=== PATIENT | female | born 1950 | race Caucasian/White ===

== ENCOUNTER 2016-01-29 07:58 | Day surgery (SDC) | payer OTHER ==
[~2016-01-29] VITALS: Ht 172.7 cm; Wt 163.5 kg
[~2016-01-29 07:58] MED LIST: ALBU1NEB10 NEB; ALBUAER2 INH; ASPCH81X PO; ATEN25TA PO; BACL10TA PO; CLIN1GEL5 TOP; CYM/30 PO; FURO40TA3 PO; HYDR-3124 PO; INSUINJ8 SC; LACT10SO17 PO; MAGN1SOL7 PO; METFTAB PO; METHPOW7 PO; MONT1TAB3 PO; NITROGLYCERIN 2% EXT; NYSCR30 EXT; OFLO0.3D4 OT; OXYC-164 PO; SUMA100T15 PO; TIOTCAP INH; [UNRECOGNIZED DRUG - SUPPLY] TOP
[2016-01-29 10:25] VITALS: BP 111/72; PULSE 65; TEMP 36.9; O2SAT 91; Ht 172.7 cm; Wt 163.5 kg
[2016-03-05] MEDS ORDERED: CLB/200 PO (15:05)
[2016-03-05] MEDS ORDERED: FLUT1INH7 INH (15:05)
[2016-03-05] MEDS ORDERED: PRMVC EXT (15:05)
[2016-03-11] MEDS ORDERED: CLC150 PO (17:01)
[2016-06-20] MEDS ORDERED: LEVO100T7 PO (08:46)
[2016-06-20] MEDS ORDERED: OXGN (11:04)
[2016-06-20] MEDS ORDERED: MCTP TOP (11:06)
[2016-06-20] MEDS ORDERED: SIMV-151 PO (15:02)
[2016-06-20] MEDS ORDERED: MISCCAP80 PO (15:02)
[2016-06-20] MEDS ORDERED: NYSCR30 TOP (15:05)
[2016-06-20] MEDS ORDERED: TRMCR515 TOP (15:05)
[2016-06-20] MEDS ORDERED: ACT300 PO (15:13)
[2016-06-20] MEDS ORDERED: PRT/40 PO (15:13)
[2016-06-24] MEDS ORDERED: MCRK20 PO (11:43)
== END 2016-03-22 12:11 | disposition home or self-care (01) ==
LOC: C.MTU 07:58
PROVIDERS: ATTEND Internal Medicine Infectious Disease
DX: N39.0 Urinary tract infection, site not specified (principal)

== ENCOUNTER → 2016-02-16 | Outpatient (CLI) | payer OTHER ==
[~2016-02-16] MED LIST changes: +ACT300 PO; +ALBINS/ NEB; +ASPI81TA28 PO; +ATR25 PO; +ATV/2 PO; +ATV2 PO; +CELE1CAP30 PO; +CLB/200 PO; +CLC150 PO; +CYM30 PO; +FLUT1INH7 INH; +GLCSR/500 PO; +IMT100 PO; +LCTS240 PO; +LEVO100T7 PO; +LRS20 PO; +LSX40 PO; +MCRK20 PO; +MCTP TOP; +MISCCAP80 PO; +NVLNI SC; -NYSCR30 EXT; +NYSCR30 TOP; +ONDA4TAB46 PO; +OXGN; -OXYC-164 PO; +POLY335019 PO; +POTA20TA13 PO; +PREG200C PO; +PRMVC EXT; +PRT/40 PO; +SILV1CRE73 TOP; +SIMV-151 PO; +SNG10 PO; +SPRIN/30 INH; +TNR25 PO; +TNR25X PO; +TRMCR515 TOP; +VNTHFA/IN INH
[2016-02-16 13:12] LABS: URINE APPEARANCE CLEAR (CLEAR); URINE BILIRUBIN NEG (NEG); URINE COLOR YELLOW; URINE EPITHELIAL CELL AUTO >30 /lpf (0-5); URINE NITRITE NEG (NEG); URINE PH 5.5 (4.5-7.5); URINE SPECIFIC GRAVITY 1.024 (1.000-1.030); UROBILINOGEN NEG (NEG); ZZURINE CULT IF INDIC CATH YES
[2016-02-16 13:14] LABS: MANUAL MICROSCOPIC REQUIRED? NO; REVIEW REQ? YES
== END | disposition home or self-care (01) ==
LOC: C.LABSPEC 08:43
PROVIDERS: ATTEND Internal Medicine Infectious Disease
DX: R39.9 Unspecified symptoms and signs involving the genitourinary system (principal); Z87.440 Personal history of urinary (tract) infections

== ENCOUNTER 2016-03-05 10:32 | Inpatient (IN) | payer OTHER ==
[~2016-03-05] VITALS: Ht 172.7 cm; Wt 184.5 kg
[~2016-03-05 10:32] MED LIST changes: -ACT300 PO; -ALBINS/ NEB; -ASPI81TA28 PO; -ATR25 PO; -ATV/2 PO; -ATV2 PO; -CELE1CAP30 PO; -CLB/200 PO; -CLC150 PO; -CYM30 PO; -FLUT1INH7 INH; -GLCSR/500 PO; -IMT100 PO; -LCTS240 PO; -LEVO100T7 PO; -LRS20 PO; -LSX40 PO; -MCRK20 PO; -MCTP TOP; -MISCCAP80 PO; -NVLNI SC; -NYSCR30 TOP; -ONDA4TAB46 PO; -OXGN; -POLY335019 PO; -POTA20TA13 PO; -PREG200C PO; -PRMVC EXT; -PRT/40 PO; -SILV1CRE73 TOP; -SIMV-151 PO; -SNG10 PO; -SPRIN/30 INH; -TNR25 PO; -TNR25X PO; -TRMCR515 TOP; -VNTHFA/IN INH
--- NOTE | 2016-03-05 11:24 | EMERGENCY ROOM VISIT NOTE ---
History Report prepared by Michelle: Kahlil Singh Under the Supervision of: Dr. Whit Gonzalez D.O. First contact with patient: 11:05 Chief Complaint: CONFUSION Stated Complaint: ALTERED MENTAL STATUS Nursing Triage Summary: Patient presents to ER via EMS. Home nursing to patients home this morning. Per EMS patient was discharged from [facility] on 02/19/16, was here for pneumonia. Patient has hx of UTI. Home nursing stated to EMS patient seemed confused and lethargic this AM. Patient is afebrile. Home nurse stated patient was having intermittent burning with urination, however last UA was clean. Patient c/o 7/10 chest heaviness at this time. History of Present Illness The patient is a 65 year old female who presents to the Emergency Room with complaints of persistent confusion that started this morning. Per patient's family, the patient has been sleeping more than usual for the past two days. Today, when the patient woke up she was very confused and was not sure where she was or what was happening. Per patient's family, the patient has a history of UTI where she experiences similar confused symptoms. He notes that the patient was recently in the hospital for UTI and pneumonia. At this time, the patient complains of pain in her backside and abdominal pain. The patient denies nausea at this time. The HPI is limited due to confusion. Source of History: patient, family History Limited By: other (confusion) Onset: this morning Position: other (global) Timing: other (persistnet) Associated Symptoms: + abdominal pain, No nausea Note: Other associated symptoms: pain in her backside Review of Systems The ROS is limited due to confusion. Past Medical & Surgical Medical Problems: (1) Acute Pancreatitis (2) Altered mental status (3) Anxiety (4) Asthma (5) Body Mass Index 50.0-59.9, Adult (6) Cerebrovascular disease (7) Chronic hypercapnic respiratory failure (8) Chronic osteoarthritis (9) Chronic pain disorder (10) Complicated UTI (urinary tract infection) (11) Crohn's disease (12) Depression (13) Diabetes mellitus, type II (14) Diabetic neuropathy (15) Diastolic heart failure (16) Dyslipidemia (17) Gastroparesis (18) Hypertension (19) Hypertrophic cardiomyopathy (20) Hypothyroidism (21) Intestinal Infection Due To Clostridium Difficile (22) Necrotizing Fasciitis (23) Obesity hypoventilation syndrome (24) Pneumonia, organism unspecified (25) Recurrent UTI (26) Sleep apnea (27) Urin Tract Infection Nos Surgical Problems: (1) Status post partial nephrectomy (2) Status post repair nasal septum (3) Status post tonsillectomy Family History FH: asthma SISTER FH: dementia MOTHER FH: diabetes mellitus MOTHER GRANDMOTHER FH: heart disease FATHER GRANDMOTHER FH: hypertension MOTHER Social History Smoking Status: Never Smoker Alcohol Use: none Drug Use: none Marital Status: Housing Status: lives with family Occupation Status: disabled Current/Historical Medications Scheduled Aspirin (Aspirin Chewable), 81 MG PO QAM Atenolol (Tenormin), 12.5 MG PO HS Baclofen (Lioresal), 20 MG PO TID Celecoxib (CeleBREX), 1 CAP PO DAILY Duloxetine Hcl (Cymbalta), 30 MG PO BID Estrogens, Conjugated (Premarin), 1 APPLN EXT 2XWK Fluticasone Furoate-Vilanterol (Breo Ellipta 200-25 Mcg/INH), 1 PUFF INH DAILY Insulin Nph (Novolin-N), 72 UNITS SC TIDM Levothyroxine Sodium (Levothyroxine Sodium), 100 MCG PO QAM Metformin Ext Rel (Glucophage Ext Rel), 1 TAB PO BID Montelukast Sodium (Singulair), 10 MG PO HS Oxygen (Oxygen), 4 LITERS NA DAYTIME Pantoprazole (Pantoprazole Sodium), 40 MG PO QAM Pregabalin (Lyrica), 200 MG PO TID Probiotic Product (Probiotic), 1 CAP PO QAM Simvastatin (Simvastatin), 20 MG PO HS Tiotropium [place] (Spiriva Handihaler), 1 CAP INH QAM Ursodiol (Ursodiol), 600 MG PO BID Scheduled PRN Albuterol (Ventolin Hfa), 2 PUFFS INH QID PRN for SOB/Wheezing Albuterol Soln (Ventolin Soln), 1 VIAL NEB Q6H PRN for SOB/Wheezing Furosemide (Lasix), 1 TAB PO QAM PRN for swelling Hydroactive Dressings (Duoderm Hydroactive Gel), 5.5 INCH TOP QD PRN for SKIN TEARS,ABRASIONS, QUINTERO Hydroxyzine Hcl (Atarax), 25 MG PO Q6 PRN for Itching Lactulose (Chronulac), 15 ML PO BID PRN for Constipation Lorazepam (Ativan), 1-2 MG PO BID PRN for Anxiety Miconazole Nitrate (Desenex Shake Powder), 1 DOSE EXT BID PRN for Affected Skin Folds Nystatin (Nystatin Cream), 0 EXT BID PRN for affected skin folds Ondansetron Hcl (Zofran), 4 MG PO Q6 PRN for Nausea Polyethylene Glycol 3350 (Miralax), 17 GM PO BID PRN for Constipation Silver Sulfadiazine (Silvadene), 1 APPLN TOP DAILY PRN for SKIN TEAR OR ABRASION Sumatriptan Succinate (Imitrex), 100 MG PO UD PRN for Migraine Triamcinolone Acet (Triamcinolone Acetonide), 1 APPLN TOP BID PRN for redness or itching Allergies Coded Allergies: Fluoxetine (Verified Allergy, Severe, ANAPHYLAXIS, 03/05/16) Insulin (Verified Allergy, Severe, LANTUS/LEVEMIR- HIVES/THROAT SWELLING, 03/05/16) TOLERATES NOVOLIN N 11/19/15 aj (per pt phone call) Note: after patient had severe hives reaction from Lantus (many years ago), she had skin testing @ [facility] and was tested with many other insulins. Pt says she only tolerated NOVOLIN NPH. Has tolerated Aspart during multiple admissions (12/2013, 05/2015, 07/2015) Moxifloxacin (Verified Allergy, Severe, HIVES, 03/05/16) Nitrofurantoin (Verified Allergy, Severe, HIVES, 03/05/16) Paroxetine (Verified Allergy, Severe, HIVES, 03/05/16) Quinolones (Verified Allergy, Severe, AVELOX & LEVAQUIN-HIVES, 03/05/16) Amitriptyline (Verified Allergy, Intermediate, Sweats and itching, 03/05/16 ) Buspirone (Verified Allergy, Intermediate, HIVES, 12/08/15) Citalopram (Verified Allergy, Intermediate, HIVES-RASH, 12/08/15) Escitalopram (Verified Allergy, Intermediate, HIVES-RASH, 12/08/15) Methadone (Verified Allergy, Intermediate, HIVES, 12/08/15) Penicillins (Verified Allergy, Intermediate, RASH,HIVES, 03/05/16) Serotonin Reuptake Inhibitors (Verified Allergy, Intermediate, MIGRAINES TO SSRIs, 02/01/16) Trazodone (Verified Allergy, Intermediate, BLOODY NOSE, HEADACHES,HIVES, ) Vancomycin (Verified Allergy, Intermediate, HIVES, 12/08/15) Prednisone (Verified Allergy, Mild, CHEST TIGHTNESS, 03/05/16) Azithromycin (Verified Allergy, Unknown, HIVES, 02/01/16) Carbamazepine (Verified Allergy, Unknown, [id number], 03/05/16) Ciprofloxacin (Unverified Allergy, Unknown, ABD PAINS, 03/05/16) Sertraline (Verified Allergy, Unknown, UNKNOWN, 12/08/15) Sitagliptin (Verified Allergy, Unknown, HIVES, 03/05/16) Tetracyclines (Verified Adverse Reaction, Severe, HIVES, 03/05/16) Sulfa Antibiotics (Verified Adverse Reaction, Intermediate, MIGRAINES, ) Fexofenadine (Verified Adverse Reaction, Mild, GI SYMPTOMS, 03/05/16) Tizanidine (Verified Adverse Reaction, Mild, ITCHING-HIVES, 12/08/15) Physical Exam Vital Signs Date Time Temp Pulse Resp B/P Pulse Ox O2 Delivery O2 Flow Rate FiO2 03/05/16 16:00 100 17 148/67 97 03/05/16 14:52 96 20 148/69 96 Nasal Cannula 4.0 03/05/16 13:47 99 Nasal Cannula 4.0 03/05/16 13:13 100 03/05/16 12:41 100 16 174/76 99 Nasal Cannula 4.0 03/05/16 10:56 98 Nasal Cannula 4.0 03/05/16 10:45 36.6 93 21 142/75 93 Nasal Cannula 4.0 03/05/16 10:40 90 Physical Exam General: Morbidly obese woman seems slightly lethargic. HEENT: Head - normocephalic and atraumatic Pupils are equal, round, and reactive to light. Crust in and around her eyes. Extraocular eye muscles are intact, and sclera are anicteric. Nose - moist nasal mucosa without discharge. Mouth - moist buccal mucosa. Oropharynx is nonerythematous and there is no tonsillar exudate or edema noted. Neck: Supple; no JVD, nuchal rigidity, cervical lymphadenopathy. Heart: Heart sounds are distant, almost inaudible, because of body habitus but normal Lungs: Lung sounds are distant, almost inaudible, because of body habitus but normal Abdomen: Soft, periumbilical pain with palpation, nondistended, with good bowel sounds. There are no palpable pulsatile masses or hepatosplenomegaly. There is no guarding, rigidity, or rebound noted. Extremities: No evidence of cyanosis, clubbing, or edema. There are easily palpable peripheral pulses. Skin: warm and dry with good turgor and no rashes. Medical Decision & Procedures ER Provider Diagnostic Interpretation: X-ray results as stated below per interpretation by me and the radiologist: CHEST ONE VIEW PORTABLE CLINICAL HISTORY: Sepsis COMPARISON STUDY: Chest radiograph and chest CT February 01, 2016. FINDINGS: Lung volumes are normal. Mild cardiomegaly is unchanged. There is no evidence of pulmonary edema. Bibasilar opacities, left greater than right, persist. There may be a small left pleural effusion. There is no pneumothorax. IMPRESSION: Persistent bibasilar opacities, left greater than right, which may reflect pneumonia or atelectasis. Possible small left pleural effusion. Electronically signed by: Chidi Gregory M.D. 03/05/2016 11:40 AM Dictated Date/Time: 03/05/2016 11:39 AM Laboratory Results 03/05/16 10:44 Red Blood Count 5.31, Mean Corpuscular Volume 84.7, Mean Corpuscular Hemoglobin 25.6, Mean Corpuscular Hemoglobin Concent 30.2, Mean Platelet Volume 12.4, Neutrophils (%) (Auto) 74.8, Lymphocytes (%) (Auto) 14.5, Monocytes (%) (Auto) 6.7, Eosinophils (%) (Auto) 2.2, Basophils (%) (Auto) 0.3, Neutrophils # (Auto) 10.12, Lymphocytes # (Auto) 1.97, Monocytes # (Auto) 0.91, Eosinophils # (Auto) 0.30, Basophils # (Auto) 0.04 03/05/16 10:44 Test 03/05/16 10:44 03/05/16 11:22 03/05/16 11:38 03/05/16 11:49 White Blood Count 13.55 K/uL (4.8-10.8) Red Blood Count 5.31 M/uL (4.2-5.4) Hemoglobin 13.6 g/dL (12.0-16.0) Hematocrit 45.0 % (37-47) Mean Corpuscular Volume 84.7 fL (80-100) Mean Corpuscular Hemoglobin 25.6 pg (25-34) Mean Corpuscular Hemoglobin Concent 30.2 g/dl (32-36) Platelet Count 165 K/uL (130-400) Mean Platelet Volume 12.4 fL (7.4-10.4) Neutrophils (%) (Auto) 74.8 % Lymphocytes (%) (Auto) 14.5 % Monocytes (%) (Auto) 6.7 % Eosinophils (%) (Auto) 2.2 % Basophils (%) (Auto) 0.3 % Neutrophils # (Auto) 10.12 K/uL (1.4-6.5) Lymphocytes # (Auto) 1.97 K/uL (1.2-3.4) Monocytes # (Auto) 0.91 K/uL (0.11-0.59) Eosinophils # (Auto) 0.30 K/uL (0-0.5) Basophils # (Auto) 0.04 K/uL (0-0.2) RDW Standard Deviation 51.8 fL (36.4-46.3) RDW Coefficient of Variation 16.9 % (11.5-14.5) Immature Granulocyte % (Auto) 1.5 % Immature Granulocyte # (Auto) 0.21 K/uL (0.00-0.02) Prothrombin Time 10.7 SECONDS (9.0-12.0) Prothromb Time International Ratio 1.0 (0.9-1.1) Activated Partial Thromboplast Time 29.6 SECONDS (21.0-31.0) Partial Thromboplastin Ratio 1.1 Anion Gap 5.0 mmol/L (3-11) Estimated GFR () 106.2 Estimated GFR (Non- 91.6 BUN/Creatinine Ratio 18.1 (10-20) Calcium Level 9.1 mg/dl (8.5-10.1) Total Bilirubin 0.3 mg/dl (0.2-1) Aspartate Amino Transf (AST/SGOT) 12 U/L (15-37) Alanine Aminotransferase (ALT/SGPT) 20 U/L (12-78) Alkaline Phosphatase 95 U/L (45-117) Total Creatine Kinase 14 U/L (26-192) Creatine Kinase MB 0.5 ng/ml (0.5-3.6) Troponin I < 0.015 ng/ml (0-0.045) Total Protein 6.6 gm/dl (6.4-8.2) Albumin 3.1 gm/dl (3.4-5.0) Globulin 3.5 gm/dl (2.5-4.0) Albumin/Globulin Ratio 0.9 (0.9-2) Creatine Kinase MB Ratio (0-3.0) Urine Color YELLOW Urine Appearance CLEAR (CLEAR) Urine pH 5.0 (4.5-7.5) Urine Specific [place] 1.018 (1.000-1.030) Urine Protein NEG (NEG) Urine Glucose (UA) NEG (NEG) Urine Ketones NEG (NEG) Urine Occult Blood TRACE (NEG) Urine Nitrite POS (NEG) Urine Bilirubin NEG (NEG) Urine Urobilinogen NEG (NEG) Urine Leukocyte Esterase NEG (NEG) Urine WBC (Auto) 1-5 /hpf (0-5) Urine RBC (Auto) 0-4 /hpf (0-4) Urine Hyaline Casts (Auto) 1-5 /lpf (0-5) Urine Epithelial Cells (Auto) 5-10 /lpf (0-5) Urine Bacteria (Auto) 4+ (NEG) Bedside Lactic Acid Venous 1.43 mmol/L (0.90-1.70) Test 03/05/16 14:47 03/05/16 16:00 Laboratory results per my review. Medications Administered Medications (Trade) Dose Ordered Sig/Keith Route Start Time Stop Time Status Last Admin Dose Admin Cefepime HCl/ Dextrose (Maxipime IV/D5 100ml) 112.5 ml @ 225 mls/hr NOW STAT IV 03/05/16 13:31 03/05/16 14:00 DC 03/05/16 13:52 225 MLS/HR Procedure Medications: Cefepime HCl 2000 mg / Dextrose IV. ECG Indication: altered mental status Rate (beats per minute): 88 Rhythm: normal sinus Findings: no ectopy, other (flattened t-waves anteriorly) ED Course 1105: Past medical records reviewed. The patient was evaluated in room B8. A complete history and physical exam was performed. A septic protocol was performed. Patient had a chest x-ray and urine specimen obtained. 1320: At this time, I reevaluated the patient and she is still confused. The mentioned at this time that he does not feel that he can safely take her home in this state. I reviewed the laboratory results and the x-ray findings with the patient and her . 1330: At this time, I discussed the patient's case with Brandie Smith PA-C - Hospitalist [facility] and she agreed to accept the patient for further evaluation. We spent some time reviewing the patient's previous urine cultures. It seems that her antibiotic treatments have been guided by Dr. Corey in the past from infectious disease. 1331: Ordered Cefepime HCl 2000 mg / Dextrose 112.5 ml @ 225 mls/hr IV. Medical Decision The patient is a 65 year old female who presents to the ED with confusion. Differential diagnosis includes sepsis, UTI, pneumonia, hypoglycemia, and dehydration. White count 13.5, stable h&h, negative cardiac enzymes, nornal renal function, glucose 178, LFTs normal, coags normal This is a 65-year-old patient who presents to the emergency department with a cough and confusion. Urinalysis was questionably infected. Chest x-ray shows evidence of bilateral opacities with a cough. With blood cell count is slightly elevated at 13.5. In reviewing her medical records, there've been multiple previous visits to the ER with altered mental status that happened as a result of infection, mostly urinary tract infection. I discussed the case with the [facility]ist and they will evaluate for further management. Consults Time Called: 1325 Consulting Physician: Brandie Smith PA-C - Latesha Bonilla Returned Call: 1330 At this time, I discussed the patient's case with Brandie Smith PA-C and she agreed to accept the patient for further evaluation. Impression Primary Impression: Altered mental status Additional Impression: Pneumonia Scribe Attestation The scribe's documentation has been prepared under my direction and personally reviewed by me in its entirety. I confirm that the note above accurately reflects all work, treatment, procedures, and medical decision making performed by me. Departure Information Dispostion Being Evaluated By Hospitalist Referrals No Doctor, Assigned (PCP) Problem Qualifiers
[2016-03-05 11:40] LABS: BASO % 0.3 %; BASO ABS # 0.04 K/uL (0-0.2); COMPLETE YES; EOS % 2.2 %; IG% 1.5 %; LYMPH % 14.5 %; LYMPH ABS # 1.97 K/uL (1.2-3.4); MEAN CELL VOLUME 84.7 fL (80-100); MEAN CORPUSCULAR HEMOGLOBIN 25.6 pg (25-34); MEAN CORPUSCULAR HGB CONC 30.2 g/dl (32-36); MEAN PLATELET VOLUME 12.4 fL (7.4-10.4); MONO % 6.7 %; NEUT % 74.8 %; PLATELET COUNT 165 K/uL (130-400); RED BLOOD COUNT 5.31 M/uL (4.2-5.4); WHITE BLOOD COUNT 13.55 K/uL (4.8-10.8)
[2016-03-05 11:42] LABS: CHLORIDE 101 mmol/L (98-107); POTASSIUM 4.5 mmol/L (3.5-5.1); SODIUM 142 mmol/L (136-145)
--- NOTE | 2016-03-05 11:42 | DIAGNOSTIC IMAGING REPORT ---
CHEST ONE VIEW PORTABLE CLINICAL HISTORY: Sepsis COMPARISON STUDY: Chest radiograph and chest CT February 01, 2016. FINDINGS: Lung volumes are normal. Mild cardiomegaly is unchanged. There is no evidence of pulmonary edema. Bibasilar opacities, left greater than right, persist. There may be a small left pleural effusion. There is no pneumothorax. IMPRESSION: Persistent bibasilar opacities, left greater than right, which may reflect pneumonia or atelectasis. Possible small left pleural effusion. Electronically signed by: Chidi Gregory M.D. 03/05/2016 11:40 AM Dictated Date/Time: 03/05/2016 11:39 AM
[2016-03-05 11:47] LABS: ALT/SGPT 20 U/L (12-78); AST/SGOT 12 U/L (15-37); BLOOD UREA NITROGEN 12 mg/dl (7-18); BUN/CREATININE RATIO 18.1 (10-20); CALCIUM 9.1 mg/dl (8.5-10.1); CARBON DIOXIDE 36 mmol/L (21-32); CREATININE 0.67 mg/dl (0.60-1.20); GLUCOSE 178 mg/dl (70-99)
[2016-03-05 11:56] LABS: PARTIAL THROMBOPLASTIN RATIO 1.1; PROTHROMBIN TIME (PATIENT) 10.7 SECONDS (9.0-12.0)
[2016-03-05 11:58] LABS: ALB/GLOB RATIO 0.9 (0.9-2); ALKALINE PHOSPHATASE 95 U/L (45-117)
[2016-03-05 11:59] LABS: CKMB/CK RATIO 3.6 (0-3.0)
[2016-03-05 12:31] LABS: URINE APPEARANCE CLEAR (CLEAR); URINE BILIRUBIN NEG (NEG); URINE COLOR YELLOW; URINE NITRITE POS (NEG); URINE SPECIFIC GRAVITY 1.018 (1.000-1.030); UROBILINOGEN NEG (NEG); ZZURINE CULT IF INDIC CATH YES
[2016-03-05 12:34] LABS: MANUAL MICROSCOPIC REQUIRED? NO; REVIEW REQ? NO
[2016-03-05] MEDS ORDERED: CEFEPIME IV 2000 MG in DEXTROSE 5% 100ML IV STA (13:31)
[2016-03-05 13:47] VITALS: O2SAT 99; Ht 172.7 cm; Wt 184.5 kg
[2016-03-05] MEDS ORDERED: CONSULT PHARMACY STA (14:26)
[2016-03-05] MEDS ORDERED: GLUCOSE 10 TABS/TUBE PO PRN (14:45)
[2016-03-05] MEDS ORDERED: CEFEPIME CONSULT ACTIVE PRN ×2 (14:45)
[2016-03-05] MEDS ORDERED: DEXTROSE 50% 50 ML SYR IV PRN (14:45)
[2016-03-05] MEDS ORDERED: LEVALBUTEROL 1.25MG/3ML NEB INH PRN (14:45)
[2016-03-05] MEDS ORDERED: GLUCOSE 40% GEL 15 GM TUBE PO PRN (14:45)
[2016-03-05] MEDS ORDERED: GLUCAGON FOR INJ 1 MG VIAL SQ PRN (14:45)
[2016-03-05] MEDS ORDERED: ALBUTEROL HFA 8 GM INHALER INH PRN (15:00)
[2016-03-05] MEDS ORDERED: hydrOXYzine HCL 25 MG TAB PO PRN (15:00)
[2016-03-05] MEDS ORDERED: CLB/200 PO (15:05)
[2016-03-05] MEDS ORDERED: FLUT1INH7 INH (15:05)
[2016-03-05] MEDS ORDERED: PRMVC EXT (15:05)
[2016-03-05] MEDS ORDERED: PHARMACY GLYCEMIC MGMT CONSULT PRN (15:17)
--- NOTE | 2016-03-05 15:51 | Pharmacy Progress Note ---
Glycemic Control Intl Consult Date of Service Mar 05, 2016. Scope Glycemic Pharmacist consulted by Dipti Smith on 03/05/16 for glycemic control and to write orders per [facility] inpatient glycemic control protocol Objective Weight (Kilograms): 161.000 Accuchecks BSG (last 24hrs): Test 03/05/16 10:44 Random Glucose 178 mg/dl (70-99) Laboratory Data (last 24hrs) Test 03/05/16 10:44 Anion Gap 5.0 mmol/L BUN/Creatinine Ratio 18.1 Blood Urea Nitrogen 12 mg/dl Creatinine 0.67 mg/dl Potassium Level 4.5 mmol/L Sodium Level 142 mmol/L White Blood Count 13.55 K/uL Red Blood Count 5.31 M/uL Hemoglobin 13.6 g/dL Hematocrit 45.0 % Mean Corpuscular Volume 84.7 fL Mean Corpuscular Hemoglobin 25.6 pg Mean Corpuscular Hemoglobin Concent 30.2 g/dl Platelet Count 165 K/uL Mean Platelet Volume 12.4 fL Neutrophils (%) (Auto) 74.8 % Lymphocytes (%) (Auto) 14.5 % Monocytes (%) (Auto) 6.7 % Eosinophils (%) (Auto) 2.2 % Basophils (%) (Auto) 0.3 % Neutrophils # (Auto) 10.12 K/uL Lymphocytes # (Auto) 1.97 K/uL Monocytes # (Auto) 0.91 K/uL Eosinophils # (Auto) 0.30 K/uL Basophils # (Auto) 0.04 K/uL Recent Pertinent Medications Outpatient Anti-diabetic Regimen: * NPH 72 units TID with meals per sliding scale * metformin ER 1000mg PO daily * A1c: 6.5% 01/2016 The patient is currently receiving: * Basal insulin: none at this time * Correctional Insulin: NovoLog Correction per scale AC/HS Goal Range: Low 100 mg/dL - High 140 mg/dL Correction Factor: 25 mg/dL/unit * Prandial insulin: Per carb ratio of 1 unit per 9 grams CHO consumed * Oral Agents: none at this time Risk Factors for Insulin Resistance: * Steroids: none * Infection: cefepime and clindamycin - day #1 * Pressors: none * IVF: none * Recent Surgery: none * Diet: NPO at this time * Mechanical Ventilation: none Assessment & Plan ASSESSMENT: * ADA & AACE recommend a goal blood sugar range 140-180 mg/dl for the majority of critically ill & non-critically ill patients. However, more stringent targets may be selected in individual cases. * 65 y/o type II diabetic known to the glycemic service from prior admissions * May insulin allergies permit only NPH and NovoLog usage. * As an outpatient, Ms Ramon uses ~216units of insulin per day, however she requires significantly less insulin while admitted per records * A1c shows appropriate outpatient glycemic control 03/05/16 * Only BSG available is random from PRP - 178mg/dL * Received 72 units of NPH INSURANCE CLAIMS CLERK * NPO secondary to lethargy * will drastically reduce basal dose PLAN FOR INPATIENT GLYCEMIC CONTROL: * Continue NPH with a reduction of dose * 30 units SQ BID with meals, begin on 03/06 * No NPH tonight since patient took large dose tonight and is NPO * Continue NovoLog sliding scale AC and HS * Add Accu-checks overnight at 00:00 and 04:00 since we are not giving any additional basal insulin tonight * Tighten correction factor based on last admission to 15mg/dL/unit * Tighten carb ratio to 1 unit per 5 g of CHO consumed * Goal range 140-180mg/dL per ADA recommendations * A1c - current from outpatient record. * Please note that the plan above was derived based on current level of insulin resistance and hospital stress. These recommendations are appropriate for inpatient admission only. Plan of care upon discharge will need to be reassessed to avoid potential outpatient hypo/hyperglycemia. Thank you.
[2016-03-05 16:15] VITALS: BP 149/73; PULSE 93; TEMP 37.4; O2SAT 93
--- NOTE | 2016-03-05 16:44 | Medical Consult ---
Consultation Date of Consultation: Mar 05, 2016. Attending Physician: Brad Medrano MD Reason for Consultation: Recurrent UTI, PNA History of Present Illness The patient is a morbidly obese 65-year-old female well known to the Infectious Disease service who presented to the emergency department with complaints of altered mental status starting this morning. The patient states that she had been feeling in her usual state of health until approximately 1 day ago. She states that she has had some mild dysuria along with some mild shortness of breath. Her family member state that the patient had noted increased pain in her buttocks where she previously had a healing sacral decubitus ulceration. She states that she has noted some sweats and chills on an off, but has not taken her temperature at home. She denies headache, sore throat, mucus production, abdominal pain, nausea, diarrhea, or edema of the lower extremities. She does have history of recurrent urinary tract infection as well as pneumonia. During her most recent admission, the patient did have Klebsiella UTI and left lower lobe pneumonia. She was treated at that time with IV ceftriaxone. She states she did improve during her previous admission was discharged home without antibiotic therapy. Since admission, the patient did have a chest x-ray, which showed persistent bibasilar opacities, left greater than right, which may reflect pneumonia or atelectasis. Blood in urine cultures are pending. Her white blood cell count was 13.55. Point of care lactic acid was 1.43. Her creatinine was 0.67. Her urinalysis showed 4+ bacteria and positive nitrite. She was placed empirically on IV cefepime and clindamycin. Past Medical/Surgical History Medical Problems: (1) Altered mental status Status: Acute (2) Altered mental status Status: Acute (3) Altered mental status Status: Acute (4) CO2 narcosis Status: Acute (5) Hemoptysis Status: Acute (6) Hepatic encephalopathy Status: Acute (7) Hypercarbia Status: Acute (8) Hypoxia Status: Acute (9) Leukocytosis Status: Acute (10) Metabolic encephalopathy Status: Acute (11) Pneumonia Status: Acute (12) Pneumonia Status: Acute (13) Respiratory acidosis Status: Acute (14) Respiratory acidosis Status: Acute (15) UTI (urinary tract infection) Status: Acute (16) UTI (urinary tract infection) Status: Acute Medical Problems: (1) Acute Pancreatitis (2) Altered mental status (3) Anxiety (4) Asthma (5) Body Mass Index 50.0-59.9, Adult (6) Cerebrovascular disease (7) Chronic hypercapnic respiratory failure (8) Chronic osteoarthritis (9) Chronic pain disorder (10) Complicated UTI (urinary tract infection) (11) Crohn's disease (12) Depression (13) Diabetes mellitus, type II (14) Diabetic neuropathy (15) Diastolic heart failure (16) Dyslipidemia (17) Gastroparesis (18) Hypertension (19) Hypertrophic cardiomyopathy (20) Hypothyroidism (21) Intestinal Infection Due To Clostridium Difficile (22) Necrotizing Fasciitis (23) Obesity hypoventilation syndrome (24) Pneumonia, organism unspecified (25) Recurrent UTI (26) Sleep apnea (27) Urin Tract Infection Nos Surgical Problems: (1) Status post partial nephrectomy (2) Status post repair nasal septum (3) Status post tonsillectomy Family History FH: asthma SISTER FH: dementia MOTHER FH: diabetes mellitus MOTHER GRANDMOTHER FH: heart disease FATHER GRANDMOTHER FH: hypertension MOTHER Noncontributory Social History Smoking Status: Never Smoker Drug Use: none Marital Status: Housing Status: lives with family Occupation Status: disabled Allergies Coded Allergies: Fluoxetine (Verified Allergy, Severe, ANAPHYLAXIS, 03/05/16) Insulin (Verified Allergy, Severe, LANTUS/LEVEMIR- HIVES/THROAT SWELLING, 03/05/16) TOLERATES NOVOLIN N 11/19/15 aj (per pt phone call) Note: after patient had severe hives reaction from Lantus (many years ago), she had skin testing @ [place] and was tested with many other insulins. Pt says she only tolerated NOVOLIN NPH. Has tolerated Aspart during multiple admissions (12/2013, 05/2015, 07/2015) Moxifloxacin (Verified Allergy, Severe, HIVES, 03/05/16) Nitrofurantoin (Verified Allergy, Severe, HIVES, 03/05/16) Paroxetine (Verified Allergy, Severe, HIVES, 03/05/16) Quinolones (Verified Allergy, Severe, AVELOX & LEVAQUIN-HIVES, 03/05/16) Amitriptyline (Verified Allergy, Intermediate, Sweats and itching, 03/05/16 ) Buspirone (Verified Allergy, Intermediate, HIVES, 12/08/15) Citalopram (Verified Allergy, Intermediate, HIVES-RASH, 12/08/15) Escitalopram (Verified Allergy, Intermediate, HIVES-RASH, 12/08/15) Methadone (Verified Allergy, Intermediate, HIVES, 12/08/15) Penicillins (Verified Allergy, Intermediate, RASH,HIVES, 03/05/16) Serotonin Reuptake Inhibitors (Verified Allergy, Intermediate, MIGRAINES TO SSRIs, 02/01/16) Trazodone (Verified Allergy, Intermediate, BLOODY NOSE, HEADACHES,HIVES, ) Vancomycin (Verified Allergy, Intermediate, HIVES, 12/08/15) Prednisone (Verified Allergy, Mild, CHEST TIGHTNESS, 03/05/16) Azithromycin (Verified Allergy, Unknown, HIVES, 02/01/16) Carbamazepine (Verified Allergy, Unknown, [id number]-[id number], 03/05/16) Cefepime (Verified Allergy, Unknown, face & arm redness/itching after 2nd or 3rd dose cefepime, 03/06/16) Ceftriaxone (Verified Allergy, Unknown, Received in [facility] (but needed benadryl for course of therapy, 03/06/16) this was during 01/2016 [facility] admission for Rocephin Ciprofloxacin (Unverified Allergy, Unknown, ABD PAINS, 03/05/16) Sertraline (Verified Allergy, Unknown, UNKNOWN, 12/08/15) Sitagliptin (Verified Allergy, Unknown, HIVES, 03/05/16) Tetracyclines (Verified Adverse Reaction, Severe, HIVES, 03/05/16) Sulfa Antibiotics (Verified Adverse Reaction, Intermediate, MIGRAINES, ) Fexofenadine (Verified Adverse Reaction, Mild, GI SYMPTOMS, 03/05/16) Tizanidine (Verified Adverse Reaction, Mild, ITCHING-HIVES, 12/08/15) Home Medications Reported Home Medications Medications Dose Route/Sig Max Daily Dose Days Date Category Dose Instructions Nystatin Cream (Nystatin) 90 Appln/30 Gm Cr 0 EXT BID PRN 03/05/16 Reported APPLY TO AFFECTED AREA BID Premarin (Estrogens, Conjugated) 14 Appln/30 Gm Cr 1 Appln EXT 2XWK 03/05/16 Reported Breo Ellipta 200-25 Mcg/INH (Fluticasone Furoate-Vilanterol) 1 Inh Inh 1 Puff INH DAILY 03/05/16 Reported Triamcinolone Acetonide (Triamcinolone Acet) 45 Appln/15 Gm Cr 1 Appln TOP BID PRN 30 03/05/16 Reported CeleBREX (Celecoxib) 200 Mg Cap 1 Cap PO DAILY 30 03/05/16 Reported Glucophage Ext Rel (Metformin HCl) 500 Mg Tab 1 Tab PO BID 12/04/15 Reported Desenex Shake Powder (Miconazole Nitrate) 43 Appln/43 Gm Powd 1 Dose EXT BID PRN 11/12/15 Reported Oxygen Gas 4 Liters NA DAYTIME 11/12/15 Reported USES BIPAP WITH 4 L/MIN HS Zofran (Ondansetron HCl) 4 Mg Tab 4 Mg PO Q6 PRN 05/23/15 Reported Miralax (Polyethylene Glycol 3350) 1 Pow Pow 17 Gm PO BID PRN 05/23/15 Reported Tenormin (Atenolol) 25 Mg Tab 12.5 Mg PO HS 05/23/15 Reported Aspirin Chewable (Aspirin) 81 Mg Chew 81 Mg PO QAM 05/23/15 Reported Silvadene (Silver Sulfadiazine) 1 % Cre 1 Appln TOP DAILY PRN 7 05/23/15 Reported Duoderm Hydroactive Gel (Hydroactive Dressings) 1 Gel Gel 5.5 Inch TOP QD PRN 05/23/15 Reported Novolin-N (Insulin Human NPH) Susp 72 Units SC TIDM 05/23/15 Reported Ativan (Lorazepam) 2 Mg Tab 1-2 Mg PO BID PRN 05/23/15 Reported Singulair (Montelukast Sodium) 10 Mg Tab 10 Mg PO HS 05/23/15 Reported Simvastatin 20 Mg Tab 20 Mg PO HS 04/05/15 Reported Probiotic (Probiotic Product) 1 Cap Cap 1 Cap PO QAM 04/05/15 Reported Chronulac (Lactulose) 10 Gm/15 Ml Syrp 15 Ml PO BID PRN 04/05/15 Reported Spiriva Handihaler (Tiotropium Mode) 18 Mcg/ Aerp 1 Cap INH QAM 03/02/15 Reported Atarax (Hydroxyzine Hcl) 25 Mg Tab 25 Mg PO Q6 PRN 03/02/15 Reported Lasix (Furosemide) 40 Mg Tab 1 Tab PO QAM PRN 30 12/10/14 Reported Cymbalta (Duloxetine Hcl) 30 Mg Cap 30 Mg PO BID 12/10/14 Reported Lioresal (Baclofen) 10 Mg Tab 20 Mg PO TID 12/10/14 Reported Ursodiol 300 Mg Cap 600 Mg PO BID 02/20/14 Reported TAKE THIS MEDICATION AFTER BREAKFAST AND AFTER EVENING MEAL. Pantoprazole Sodium (Pantoprazole) 40 Mg Tab 40 Mg PO QAM 02/20/14 Reported TAKE THIS MEDICATION ONCE A DAY 30 MINUTES BEFORE FIRST MEAL OF THE DAY. Ventolin Soln (Albuterol Soln) 0.083 % Neb 1 Vial NEB Q6H PRN 02/20/14 Reported Levothyroxine Sodium 100 Mcg Tab 100 Mcg PO QAM 11/25/13 Reported Lyrica (Pregabalin) 200 Mg Cap 200 Mg PO TID 06/17/13 Reported Ventolin Hfa (Albuterol) Aers 2 Puffs INH QID PRN 02/20/13 Reported Imitrex (Sumatriptan Succinate) 100 Mg Tab 100 Mg PO UD PRN 08/01/12 Reported TAKE ONE TABLET AT ONSET OF MIGRAINE. NO MORE THAN 2 TABLETS IN 24HRS. Current Inpatient Medications Current Inpatient Medications Medications (Trade) Dose Ordered Sig/Keith Route Start Time Stop Time Status Last Admin Dose Admin Heparin Sodium (Porcine) (Heparin Sq 5000 Unit/0.5ml) 5,000 unit Q8 SQ 03/05/16 22:00 04/04/16 21:59 UNV Acetaminophen (Tylenol Tab) 650 mg Q4H PRN PO 03/05/16 14:30 04/04/16 14:29 Ondansetron HCl (Zofran Inj) 4 mg Q6H PRN IV 03/05/16 14:30 04/04/16 14:29 Insulin Aspart (novoLOG ASPART) SLIDING SCALE If C... ACHS SC 03/05/16 16:00 04/04/16 15:59 Glucose (Glucose 40% Gel) 15-30 GRAMS 15 GRAMS... UD PRN PO 03/05/16 14:45 04/04/16 14:44 Glucose (Glucose Chew Tab) 4-8 Tablets 4 Tabl... UD PRN PO 03/05/16 14:45 04/04/16 14:44 Dextrose (Dextrose 50% 50ML Syringe) 25-50ML OF 50% DW IV FOR... UD PRN IV 03/05/16 14:45 04/04/16 14:44 Glucagon (Glucagon Inj) 1 mg UD PRN SQ 03/05/16 14:45 04/04/16 14:44 Levalbuterol (Xopenex 1.25MG/ 3ML Neb) 1.25 mg Q4R PRN INH 03/05/16 14:45 04/04/16 14:44 Cefepime HCl 1 ea 1 ea UD PRN N/A 03/05/16 14:45 04/04/16 14:44 Clindamycin Phosphate/Dextrose (Cleocin Iv/ Dextrose Add-[place] 50ML) 54 ml @ 100 mls/hr Q8H IV 03/05/16 15:00 03/12/16 14:59 UNV Albuterol (Ventolin Hfa Inhaler) 2 puffs QID PRN INH 03/05/16 15:00 04/04/16 14:59 UNV Aspirin (Aspirin Chew) 81 mg QAM PO 03/06/16 09:00 04/05/16 08:59 UNV Atenolol (Tenormin Tab) 12.5 mg HS PO 03/05/16 21:00 04/04/16 20:59 UNV Baclofen (Lioresal Tab) 20 mg TID PO 03/05/16 21:00 04/04/16 20:59 UNV Celecoxib (CeleBREX CAP) 200 mg DAILY PO 03/06/16 09:00 04/05/16 08:59 UNV Duloxetine HCl (Cymbalta Cap) 30 mg BID PO 03/05/16 21:00 04/04/16 20:59 UNV Hydroxyzine HCl (Vistaril Tab) 25 mg Q6 PRN PO 03/05/16 15:00 04/04/16 14:59 UNV Levothyroxine Sodium (Synthroid Tab) 100 mcg QAM PO 03/06/16 09:00 04/05/16 08:59 UNV Montelukast Sodium (Singulair Tab) 10 mg HS PO 03/05/16 21:00 04/04/16 20:59 UNV Pantoprazole Sodium (Protonix Tab) 40 mg QAM PO 03/06/16 09:00 04/05/16 08:59 UNV Pregabalin (Lyrica Cap) 200 mg TID PO 03/05/16 21:00 04/04/16 20:59 UNV Simvastatin (Zocor Tab) 20 mg HS PO 03/05/16 21:00 04/04/16 20:59 UNV Tiotropium Mode (Spiriva Handihaler Inhaler) 1 puff QAM INH 03/06/16 09:00 04/05/16 08:59 UNV Ursodiol (Actigall Cap) 600 mg BID PO 03/05/16 21:00 04/04/16 20:59 UNV Non-Formulary Medication (Fluticasone Furoate-Vilanterol (Breo Ellipta 200-25 Mcg/INH)) 1 puff DAILY INH 03/06/16 09:00 04/05/16 08:59 UNV Non-Formulary Medication (Probiotic Product (Probiotic)) 1 cap QAM PO 03/06/16 09:00 04/05/16 08:59 UNV Miscellaneous Information (Consult Glycemic Management Pharmacy) 1 ea UD PRN N/A 03/05/16 15:17 04/04/16 15:16 Insulin Human NPH (novoLIN-N NPH) 30 units BIDM SC 03/06/16 07:30 04/05/16 07:59 Insulin Aspart (novoLOG ASPART) SLIDING SCALE If C... 0000,0400 SC 03/06/16 00:00 04/05/16 00:00 Review of Systems Constitutional: + chills, + fatigue, + sweats, + weakness, No fever Eyes: No worsening of vision ENT: No hearing loss Respiratory: + shortness of breath, No cough Cardiovascular: No chest pain Abdomen: No diarrhea, No nausea, No pain, No vomiting Musculoskeletal: + problem reported (low back pain/buttocks pain) Genitourinary - Female: + dysuria Integumentary: + new/changing skin lesions (sacarl decubitus ulceration- healing), No itch, No rash Physical Exam Date Time Temp Pulse Resp B/P Pulse Ox O2 Delivery O2 Flow Rate FiO2 03/05/16 16:00 100 17 148/67 97 03/05/16 14:52 96 20 148/69 96 Nasal Cannula 4.0 03/05/16 13:47 99 Nasal Cannula 4.0 03/05/16 13:13 100 03/05/16 12:41 100 16 174/76 99 Nasal Cannula 4.0 03/05/16 10:56 98 Nasal Cannula 4.0 03/05/16 10:45 36.6 93 21 142/75 93 Nasal Cannula 4.0 03/05/16 10:40 90 General Appearance: + mild distress, + obese Head: normocephalic, atraumatic Eyes: normal inspection, sclerae normal ENT: hearing grossly normal Neck: supple, trachea midline Respiratory/Chest: no accessory muscle use, + decreased breath sounds ( throughout), + pertinent finding (Nasal cannula O2) Cardiovascular: + tachycardia Abdomen/GI: normal bowel sounds, soft, + tenderness (generalized especially in upper quadrants) Back: normal inspection, no CVA tenderness Extremities/Musculoskelatal: normal inspection, + swelling (trace bilateral LE edema) Neurologic/Psych: alert, normal mood/affect Skin: normal color, warm/dry, no rash Lymphatic: no adenopathy Laboratory Results CHEST ONE VIEW PORTABLE CLINICAL HISTORY: Sepsis COMPARISON STUDY: Chest radiograph and chest CT February 01, 2016. FINDINGS: Lung volumes are normal. Mild cardiomegaly is unchanged. There is no evidence of pulmonary edema. Bibasilar opacities, left greater than right, persist. There may be a small left pleural effusion. There is no pneumothorax. IMPRESSION: Persistent bibasilar opacities, left greater than right, which may reflect pneumonia or atelectasis. Possible small left pleural effusion. Item Value Date Time Blood Culture Received 03/05/16 1150 Blood Pending Blood Culture Received 03/05/16 1140 Blood Pending Urine Culture Received 03/05/16 1138 Urine,Catheterized Pending Last 24 Hours Test 03/05/16 10:44 03/05/16 11:22 03/05/16 11:38 03/05/16 11:49 White Blood Count 13.55 K/uL Red Blood Count 5.31 M/uL Hemoglobin 13.6 g/dL Hematocrit 45.0 % Mean Corpuscular Volume 84.7 fL Mean Corpuscular Hemoglobin 25.6 pg Mean Corpuscular Hemoglobin Concent 30.2 g/dl Platelet Count 165 K/uL Mean Platelet Volume 12.4 fL Neutrophils (%) (Auto) 74.8 % Lymphocytes (%) (Auto) 14.5 % Monocytes (%) (Auto) 6.7 % Eosinophils (%) (Auto) 2.2 % Basophils (%) (Auto) 0.3 % Neutrophils # (Auto) 10.12 K/uL Lymphocytes # (Auto) 1.97 K/uL Monocytes # (Auto) 0.91 K/uL Eosinophils # (Auto) 0.30 K/uL Basophils # (Auto) 0.04 K/uL RDW Standard Deviation 51.8 fL RDW Coefficient of Variation 16.9 % Immature Granulocyte % (Auto) 1.5 % Immature Granulocyte # (Auto) 0.21 K/uL Prothrombin Time 10.7 SECONDS Prothromb Time International Ratio 1.0 Activated Partial Thromboplast Time 29.6 SECONDS Partial Thromboplastin Ratio 1.1 Sodium Level 142 mmol/L Potassium Level 4.5 mmol/L Chloride Level 101 mmol/L Carbon Dioxide Level 36 mmol/L Anion Gap 5.0 mmol/L Blood Urea Nitrogen 12 mg/dl Creatinine 0.67 mg/dl Estimated GFR () 106.2 Estimated GFR (Non- 91.6 BUN/Creatinine Ratio 18.1 Random Glucose 178 mg/dl Calcium Level 9.1 mg/dl Total Bilirubin 0.3 mg/dl Aspartate Amino Transf (AST/SGOT) 12 U/L Alanine Aminotransferase (ALT/SGPT) 20 U/L Alkaline Phosphatase 95 U/L Total Creatine Kinase 14 U/L Creatine Kinase MB 0.5 ng/ml Creatine Kinase MB Ratio 3.6 Troponin I < 0.015 ng/ml Total Protein 6.6 gm/dl Albumin 3.1 gm/dl Globulin 3.5 gm/dl Albumin/Globulin Ratio 0.9 Urine Color YELLOW Urine Appearance CLEAR Urine pH 5.0 Urine Specific [place] 1.018 Urine Protein NEG Urine Glucose (UA) NEG Urine Ketones NEG Urine Occult Blood TRACE Urine Nitrite POS Urine Bilirubin NEG Urine Urobilinogen NEG Urine Leukocyte Esterase NEG Urine WBC (Auto) 1-5 /hpf Urine RBC (Auto) 0-4 /hpf Urine Hyaline Casts (Auto) 1-5 /lpf Urine Epithelial Cells (Auto) 5-10 /lpf Urine Bacteria (Auto) 4+ Bedside Lactic Acid Venous 1.43 mmol/L Test 03/05/16 14:47 Assessment & Plan Patient with probable left-sided pneumonia, and possibly bibasilar pneumonia with altered mental status on admission along with 4+ bacteria in her urinalysis and positive nitrite. The patient has an extensive allergy list including multiple antibiotics, and she was empirically placed on IV clindamycin and cefepime. This seems like a reasonable combination for now to cover the possibility of aspiration pneumonia, CAP, and urinary tract infection. I did discuss this with Federica in pharmacy as well. Will order a MRSA nasal swab and procalcitonin. Clindamycin should be appropriate for MRSA pneumonia, but if nasal swab is positive, may consider change to IV ceftaroline for improved MRSA coverage along with coverage of gram-negative infection as well. Will await the patient's urine culture and blood cultures. We will continue to follow. Plan: 1. Continue IV clindamycin and cefepime 2. MRSA nasal swab, Procalcitonin 3. Follow urine and blood cultures PROVIDER ADDENDUM: Patient examined and reviewed with Ms. Freeman. Agree with above assessment. Current antibiotics appropriate for pneumonia, awaitt follow-up chest x-ray and culture results.
--- NOTE | 2016-03-05 18:02 | History and Physical ---
History & Physical Date & Time of Service: Mar 05, 2016 at 15:11 Chief Complaint: Altered Mental Status Primary Care Physician: Radha Romero, History of Present Illness Source: patient, spouse ( at bedside), clinic records, hospital records This is a 65 year old female with PMH of chronic respiratory failure on 4 L continuous at home, morbid obesity, obesity hypoventilation on BiPAP HS, asthma , hypertension, DM type 2, recurrent UTI, who presents to the ED with altered mental status. Patient follows with Dr. Romero for primary care and Dr. Corey for ID. She has multiple admissions in the past year for metabolic encephalopathy related to recurrent UTI. Last hospitalization in January was for metabolic encephalopathy from pneumonia and UTI treated with cefepime then Rocephin. She was seen by ID during admission. states when she went home she was still coughing and weak. He states she improved but not back to baseline. Then 2 days ago she developed dry cough with increased SOB and wheezing. Since yesterday she is lethargic, sleeping all day, confused. He states she was unable to eat yesterday because she was falling asleep. He states she is "in a daze" and "spaced out." states this is similar to when she had UTI's in the past. When home health nurse saw her this morning she apparently called the PCP's office who recommended ER evaluation. Patient states "I don't know" when asked about recent events. She is unable to answer the location, but able to recite her name and identify her . She knows it is February 2016 but not the exact date. She denies chest pain or shortness of breath. Patient is bedbound with transfer to chair by Tere lift. notes chronic R sided weakness from prior CVA as well as diffuse generalized weakness. He denies acute focal weakness, facial droop, speech slurring, fevers , chills, rhinorrhea, sore throat complaints, sputum production, overt aspiration, chest pains, abdominal pain, N/V/D, dysuria, frequency. reports wounds on patient's lower back and buttock which are no longer open. Denies erythema or drainage of the wounds. Spoke to again- denies hx of C. diff. Also tested negative for C. diff several times in past 10 years. Past Medical/Surgical History Medical Problems: (1) Acute Pancreatitis Status: Resolved (2) Anxiety Status: Chronic (3) Asthma Status: Chronic (4) Body Mass Index 50.0-59.9, Adult Status: Chronic (5) Cerebrovascular disease Permanent Comment: history left thalamic stroke Status: Chronic (6) Chronic hypercapnic respiratory failure Status: Chronic (7) Chronic osteoarthritis Status: Chronic (8) Chronic pain disorder Status: Chronic (9) Crohn's disease Status: Chronic (10) Depression Status: Chronic (11) Diabetes mellitus, type II Status: Chronic (12) Diabetic neuropathy Status: Chronic (13) Diastolic heart failure Status: Chronic (14) Dyslipidemia Status: Chronic (15) Gastroparesis Status: Chronic (16) Hypertension Status: Chronic (17) Hypertrophic cardiomyopathy Status: Chronic (18) Hypothyroidism Status: Chronic (19) Necrotizing Fasciitis Status: Resolved (20) Obesity hypoventilation syndrome Status: Chronic (21) Pneumonia, organism unspecified Status: Resolved (22) Sleep apnea Status: Chronic (23) Urin Tract Infection Nos Status: Resolved Surgical Problems: (1) Status post partial nephrectomy Permanent Comment: left partial nephrectomy, pathology benign Status: Chronic (2) Status post repair nasal septum Status: Chronic (3) Status post tonsillectomy Status: Chronic Family History FH: asthma SISTER FH: dementia MOTHER FH: diabetes mellitus MOTHER GRANDMOTHER FH: heart disease FATHER GRANDMOTHER FH: hypertension MOTHER Social History Smoking Status: Never Smoker Alcohol Use: none Marital Status: Housing status: lives with significant other, other Occupational Status: disabled Immunizations History of Influenza Vaccine: Yes Influenza Vaccine Date: Oct 16, 2014 History of Tetanus Vaccine?: Unknown Tetanus Immunization Date: Oct 23, 2009 History of Pneumococcal: Yes Pneumococcal Date: Nov 30, 2000 History of Hepatitis B Vaccine: Unknown Allergies Coded Allergies: Fluoxetine (Verified Allergy, Severe, ANAPHYLAXIS, 03/05/16) Insulin (Verified Allergy, Severe, LANTUS/LEVEMIR- HIVES/THROAT SWELLING, 03/05/16) TOLERATES NOVOLIN N 11/19/15 aj (per pt phone call) Note: after patient had severe hives reaction from Lantus (many years ago), she had skin testing @ [place] and was tested with many other insulins. Pt says she only tolerated NOVOLIN NPH. Has tolerated Aspart during multiple admissions (12/2013, 05/2015, 07/2015) Moxifloxacin (Verified Allergy, Severe, HIVES, 03/05/16) Nitrofurantoin (Verified Allergy, Severe, HIVES, 03/05/16) Paroxetine (Verified Allergy, Severe, HIVES, 03/05/16) Quinolones (Verified Allergy, Severe, AVELOX & LEVAQUIN-HIVES, 03/05/16) Amitriptyline (Verified Allergy, Intermediate, Sweats and itching, 03/05/16 ) Buspirone (Verified Allergy, Intermediate, HIVES, 12/08/15) Citalopram (Verified Allergy, Intermediate, HIVES-RASH, 12/08/15) Escitalopram (Verified Allergy, Intermediate, HIVES-RASH, 12/08/15) Methadone (Verified Allergy, Intermediate, HIVES, 12/08/15) Penicillins (Verified Allergy, Intermediate, RASH,HIVES, 03/05/16) Serotonin Reuptake Inhibitors (Verified Allergy, Intermediate, MIGRAINES TO SSRIs, 02/01/16) Trazodone (Verified Allergy, Intermediate, BLOODY NOSE, HEADACHES,HIVES, ) Vancomycin (Verified Allergy, Intermediate, HIVES, 12/08/15) Prednisone (Verified Allergy, Mild, CHEST TIGHTNESS, 03/05/16) Azithromycin (Verified Allergy, Unknown, HIVES, 02/01/16) Carbamazepine (Verified Allergy, Unknown, [id number], 03/05/16) Ciprofloxacin (Unverified Allergy, Unknown, ABD PAINS, 03/05/16) Sertraline (Verified Allergy, Unknown, UNKNOWN, 12/08/15) Sitagliptin (Verified Allergy, Unknown, HIVES, 03/05/16) Tetracyclines (Verified Adverse Reaction, Severe, HIVES, 03/05/16) Sulfa Antibiotics (Verified Adverse Reaction, Intermediate, MIGRAINES, ) Fexofenadine (Verified Adverse Reaction, Mild, GI SYMPTOMS, 03/05/16) Tizanidine (Verified Adverse Reaction, Mild, ITCHING-HIVES, 12/08/15) Home Medications Scheduled Aspirin (Aspirin Chewable), 81 MG PO QAM Atenolol (Tenormin), 12.5 MG PO HS Baclofen (Lioresal), 20 MG PO TID Celecoxib (CeleBREX), 1 CAP PO DAILY Duloxetine Hcl (Cymbalta), 30 MG PO BID Estrogens, Conjugated (Premarin), 1 APPLN EXT 2XWK Fluticasone Furoate-Vilanterol (Breo Ellipta 200-25 Mcg/INH), 1 PUFF INH DAILY Insulin Nph (Novolin-N), 72 UNITS SC TIDM Levothyroxine Sodium (Levothyroxine Sodium), 100 MCG PO QAM Metformin Ext Rel (Glucophage Ext Rel), 1 TAB PO BID Montelukast Sodium (Singulair), 10 MG PO HS Oxygen (Oxygen), 4 LITERS NA DAYTIME Pantoprazole (Pantoprazole Sodium), 40 MG PO QAM Pregabalin (Lyrica), 200 MG PO TID Probiotic Product (Probiotic), 1 CAP PO QAM Simvastatin (Simvastatin), 20 MG PO HS Tiotropium [place] (Spiriva Handihaler), 1 CAP INH QAM Ursodiol (Ursodiol), 600 MG PO BID Scheduled PRN Albuterol (Ventolin Hfa), 2 PUFFS INH QID PRN for SOB/Wheezing Albuterol Soln (Ventolin Soln), 1 VIAL NEB Q6H PRN for SOB/Wheezing Furosemide (Lasix), 1 TAB PO QAM PRN for swelling Hydroactive Dressings (Duoderm Hydroactive Gel), 5.5 INCH TOP QD PRN for SKIN TEARS,ABRASIONS, QUINTERO Hydroxyzine Hcl (Atarax), 25 MG PO Q6 PRN for Itching Lactulose (Chronulac), 15 ML PO BID PRN for Constipation Lorazepam (Ativan), 1-2 MG PO BID PRN for Anxiety Miconazole Nitrate (Desenex Shake Powder), 1 DOSE EXT BID PRN for Affected Skin Folds Nystatin (Nystatin Cream), 0 EXT BID PRN for affected skin folds Ondansetron Hcl (Zofran), 4 MG PO Q6 PRN for Nausea Polyethylene Glycol 3350 (Miralax), 17 GM PO BID PRN for Constipation Silver Sulfadiazine (Silvadene), 1 APPLN TOP DAILY PRN for SKIN TEAR OR ABRASION Sumatriptan Succinate (Imitrex), 100 MG PO UD PRN for Migraine Triamcinolone Acet (Triamcinolone Acetonide), 1 APPLN TOP BID PRN for redness or itching Review of Systems Unobtainable due to patient's mental status. Physical Exam Vital Signs Date Time Temp Pulse Resp B/P Pulse Ox O2 Delivery O2 Flow Rate FiO2 03/05/16 14:52 96 20 148/69 96 Nasal Cannula 4.0 03/05/16 13:47 99 Nasal Cannula 4.0 03/05/16 13:13 100 03/05/16 12:41 100 16 174/76 99 Nasal Cannula 4.0 03/05/16 10:56 98 Nasal Cannula 4.0 03/05/16 10:45 36.6 93 21 142/75 93 Nasal Cannula 4.0 03/05/16 10:40 90 General Appearance: no apparent distress, + obese, + pertinent finding ( lethargic 65 year old female, awakens for questioning, cooperative with some commands) Head: normocephalic, atraumatic Eyes: normal inspection, PERRL, sclerae normal, + pertinent finding (does not cooperate with EOM testing) ENT: hearing grossly normal, pharynx normal Neck: supple, trachea midline, + pertinent finding (neck is thick) Respiratory/Chest: no respiratory distress, + decreased breath sounds, + pertinent finding (limited exam due to obese habitus) Cardiovascular: regular rate, rhythm, no murmur, normal peripheral pulses Abdomen/GI: normal bowel sounds, non tender, soft, + pertinent finding (obese) Extremities/Musculoskelatal: normal inspection, no calf tenderness, normal capillary refill, no pedal edema Neurologic/Psych: normal mood/affect, oriented x 3, + pertinent finding ( lethargic but awakens for questioning, oriented to person and month/ year. disoriented to place. unable to recall recent events. no facial droop. no dysarthria. generally weak. local operator strength equal bilaterally. unable to lift both legs off the bed, but able to move both feet equally. ) Skin: normal color, warm/dry, + pertinent finding (unable to visualize wounds on her lower back and buttock as I am unable to turn her) Diagnostics Laboratory Results Results Past 24 Hours Test 03/05/16 10:44 03/05/16 11:22 03/05/16 11:38 03/05/16 11:49 Range/Units White Blood Count 13.55 4.8-10.8 K/uL Red Blood Count 5.31 4.2-5.4 M/uL Hemoglobin 13.6 12.0-16.0 g/dL Hematocrit 45.0 37-47 % Mean Corpuscular Volume 84.7 80-100 fL Mean Corpuscular Hemoglobin 25.6 25-34 pg Mean Corpuscular Hemoglobin Concent 30.2 32-36 g/dl Platelet Count 165 130-400 K/uL Mean Platelet Volume 12.4 7.4-10.4 fL Neutrophils (%) (Auto) 74.8 % Lymphocytes (%) (Auto) 14.5 % Monocytes (%) (Auto) 6.7 % Eosinophils (%) (Auto) 2.2 % Basophils (%) (Auto) 0.3 % Neutrophils # (Auto) 10.12 1.4-6.5 K/uL Lymphocytes # (Auto) 1.97 1.2-3.4 K/uL Monocytes # (Auto) 0.91 0.11-0.59 K/uL Eosinophils # (Auto) 0.30 0-0.5 K/uL Basophils # (Auto) 0.04 0-0.2 K/uL RDW Standard Deviation 51.8 36.4-46.3 fL RDW Coefficient of Variation 16.9 11.5-14.5 % Immature Granulocyte % (Auto) 1.5 % Immature Granulocyte # (Auto) 0.21 0.00-0.02 K/uL Prothrombin Time 10.7 9.0-12.0 SECONDS Prothromb Time International Ratio 1.0 0.9-1.1 Activated Partial Thromboplast Time 29.6 21.0-31.0 SECONDS Partial Thromboplastin Ratio 1.1 Sodium Level 142 136-145 mmol/L Potassium Level 4.5 3.5-5.1 mmol/L Chloride Level 101 98-107 mmol/L Carbon Dioxide Level 36 21-32 mmol/L Anion Gap 5.0 3-11 mmol/L Blood Urea Nitrogen 12 7-18 mg/dl Creatinine 0.67 0.60-1.20 mg/dl Estimated GFR () 106.2 Estimated GFR (Non- 91.6 BUN/Creatinine Ratio 18.1 10-20 Random Glucose 178 70-99 mg/dl Calcium Level 9.1 8.5-10.1 mg/dl Total Bilirubin 0.3 0.2-1 mg/dl Aspartate Amino Transf (AST/SGOT) 12 15-37 U/L Alanine Aminotransferase (ALT/SGPT) 20 12-78 U/L Alkaline Phosphatase 95 45-117 U/L Total Creatine Kinase 14 26-192 U/L Creatine Kinase MB 0.5 0.5-3.6 ng/ml Creatine Kinase MB Ratio 3.6 0-3.0 Troponin I < 0.015 0-0.045 ng/ml Total Protein 6.6 6.4-8.2 gm/dl Albumin 3.1 3.4-5.0 gm/dl Globulin 3.5 2.5-4.0 gm/dl Albumin/Globulin Ratio 0.9 0.9-2 Urine Color YELLOW Urine Appearance CLEAR CLEAR Urine pH 5.0 4.5-7.5 Urine Specific [place] 1.018 1.000-1.030 Urine Protein NEG NEG Urine Glucose (UA) NEG NEG Urine Ketones NEG NEG Urine Occult Blood TRACE NEG Urine Nitrite POS NEG Urine Bilirubin NEG NEG Urine Urobilinogen NEG NEG Urine Leukocyte Esterase NEG NEG Urine WBC (Auto) 1-5 0-5 /hpf Urine RBC (Auto) 0-4 0-4 /hpf Urine Hyaline Casts (Auto) 1-5 0-5 /lpf Urine Epithelial Cells (Auto) 5-10 0-5 /lpf Urine Bacteria (Auto) 4+ NEG Bedside Lactic Acid Venous 1.43 0.90-1.70 mmol/L Test 03/05/16 14:45 03/05/16 14:47 Range/Units Microbiology Results 03/05/16 Blood Culture, Received Pending 03/05/16 Blood Culture, Received Pending 03/05/16 Urine Culture, Received Pending Diagnostic Radiology CHEST ONE VIEW PORTABLE CLINICAL HISTORY: Sepsis COMPARISON STUDY: Chest radiograph and chest CT February 01, 2016. FINDINGS: Lung volumes are normal. Mild cardiomegaly is unchanged. There is no evidence of pulmonary edema. Bibasilar opacities, left greater than right, persist. There may be a small left pleural effusion. There is no pneumothorax. IMPRESSION: Persistent bibasilar opacities, left greater than right, which may reflect pneumonia or atelectasis. Possible small left pleural effusion. EKG NSR, 88 bpm, nonspecific T wave abnormality in anterior leads Impression Assessment and Plan ALTERED MENTAL STATUS Likely metabolic encephalopathy from infection- possible UTI, possible pneumonia - CAP vs. aspiration Multiple past admissions for similar presentation associated with infection No acute focal deficit No recent med changes as per ; will hold Ativan Check TSH, B12, folate, RPR Neuro checks Q4h NPO until more alert; then advance as tolerated SIRS Meets criteria with + leukocytosis (WBC 13.5); + tachycardia; Afebrile; BP on high side; lactic acid WNL- will recheck this afternoon Possible infectious source- pulmonary and/or urine Blood cultures, urine culture pending Received cefepime in ER Antibiotic coverage noted below PNEUMONIA Possible CAP vs. aspiration CXR- persistent bibasilar opacities, left greater than right, which may reflect pneumonia or atelectasis. Possible small left pleural effusion. Given cefepime in ER; will continue cefepime and add clindamycin to cover anaerobes Blood cultures pending; not expectorating sputum Consult ID POSSIBLE UTI History of recurrent UTI UA + nitrite, bacteria 4+, epithelial cells 5-10, trace occult blood Blood cultures and urine culture pending Antibiotic coverage noted above Consult ID ASTHMA Not wheezing on exam Xopenex nebs PRN Continue home inhalers, Singulair CHRONIC RESPIRATORY FAILURE Continue home oxygen OBESITY HYPOVENTILATION Continue BiPAP HS HYPERTENSION BP running mostly 140s in ER Continue atenolol, DM TYPE 2 Hold metformin Insulin sliding scale coverage HISTORY OF CVA With residual right sided weakness Continue aspirin and statin HYPOTHYROIDISM Check TSH Continue levothyroxine WOUNDS ON LOW BACK AND BUTTOCK Healing without erythema or drainage as per ; I was unable to turn her to visualize Consult wound care nurse DISPOSITION Lives with ; has home health Follows with Dr. Romero for primary care PT, OT, and social media job titles consulted Patient seen in collaboration with Dr. Rowan. Please see his addendum. Attending Note: Patient is a 65 yr old female with PMH of Obesity hypoventilation syndrome, Oxygen dependency, Morbid obesity, asthma, DM II, recurrent UTIs and other comorbidities presents with history of AMS, lethargic, confusion, persistent cough, weakness, SOB. Patient is bedbound at baseline. Most of the information is obtained from family. Physical Exam: Vitals signs as noted above General Appearance:Obese, lethargic, no apparent distress Head: normocephalic, Atraumatic Eyes: normal inspection, EOMI, PERRLA, Anicteric Neck: supple, no JVD, Trachea midline Respiratory/Chest: Decreased breath sounds, CTA, No accessory muscle use Cardiovascular: S1, S2, NSR, No murmur Abdomen/GI:Soft, Non tender, Bowel sounds present, No guarding/rigidity/ organomegaly Extremities/Musculoskelatal:normal inspection, no calf tenderness Neurologic/Psych:Lethargic, confused, weakness in b/L LE-chronic Skin: normal color, warm Assessment and Plan: AMS: Likely metabolic encephalopathy from UTI, CAP ? aspiration H/O multiple admissions with similar presentation Start Broad spectrum antibiotics Avoid narcotics Check TSH, B12, folate, RPR Neuro checks Blood and urine cultures Agree with assessment and plan of Brandie Smith as above. Please review for complete plan. Advanced Directives Existing Advance Directive: No Existing Living Will: No Existing Power of Bindery Machine Setter/Set Up Operator: No VTE Prophylaxis VTE Risk Assessment Done? Y/N: Yes Risk Level: High
[2016-03-05] MEDS: CLINDAMYCIN IV 600 MG in DEXTROSE 5% ADD-VANTAGE 50ML 50 ML IV SCH (18:31)
[2016-03-05] MEDS: INSULIN ASPART 100 UNITS/ML 3 ML PEN SC SCH ×3 (18:34→21:42)
[2016-03-05] MEDS: URSODIOL 300 MG CAP PO SCH (18:34)
[2016-03-05 18:57] VITALS: BP 144/78; PULSE 92; TEMP 36.8; O2SAT 99
[2016-03-05 19:36] LABS: INFLUENZA A PCR Neg for Influ A (NEG); INFLUENZA B PCR Neg for Influ B (NEG)
[2016-03-05] MEDS: BACLOFEN TAB 20 MG TAB PO SCH (21:33)
[2016-03-05] MEDS: DULOXETINE (CYMBALTA) 30 MG CAP PO SCH (21:33)
[2016-03-05] MEDS: MONTELUKAST SOD 10 MG TAB PO SCH (21:34)
[2016-03-05] MEDS: SIMVASTATIN 20 MG TAB PO SCH (21:35)
[2016-03-05] MEDS: HEPARIN SOD 5000 UNIT/0.5 ML CARP SQ SCH (21:39)
[2016-03-05] MEDS: PREGABALIN 100 MG CAP PO SCH (21:45)
[2016-03-05 21:49] VITALS: BP 151/79; PULSE 86
[2016-03-05 22:40] VITALS: PULSE 82; O2SAT 93
[2016-03-05 23:59] VITALS: O2SAT 93
[2016-03-06] VITALS (13 sets, daily range): BP systolic 123–146; BP diastolic 74–82; PULSE 63–85; TEMP 37–37.4; O2SAT 93–96
[2016-03-06] MEDS: CLINDAMYCIN IV 600 MG in DEXTROSE 5% ADD-VANTAGE 50ML 50 ML IV SCH ×3 (01:53→17:34)
[2016-03-06] MEDS: CEFEPIME IV 2000 MG in DEXTROSE 5% 100ML IV SCH ×2 (02:50→14:02)
[2016-03-06] MEDS: INSULIN ASPART 100 UNITS/ML 3 ML PEN SC SCH ×5 (04:14→21:01)
[2016-03-06] MEDS: PANTOprazole SOD 40 MG TAB PO SCH (05:51)
[2016-03-06] MEDS: LEVOTHYROXINE 100 MCG TAB PO SCH (05:51)
[2016-03-06] MEDS: HEPARIN SOD 5000 UNIT/0.5 ML CARP SQ SCH ×3 (05:52→21:01)
[2016-03-06] MEDS: ACETAMINOPHEN 325 MG TAB PO PRN (05:59)
[2016-03-06] MEDS ORDERED: SUMATRIPTAN SUCCINATE 50 MG TAB PO PRN (06:15)
[2016-03-06 07:08] LABS: HEMATOCRIT 41.9 % (37-47); MEAN CELL VOLUME 83.8 fL (80-100); MEAN CORPUSCULAR HEMOGLOBIN 25.6 pg (25-34); MEAN CORPUSCULAR HGB CONC 30.5 g/dl (32-36); MEAN PLATELET VOLUME 11.8 fL (7.4-10.4); PLATELET COUNT 153 K/uL (130-400); WHITE BLOOD COUNT 10.35 K/uL (4.8-10.8)
[2016-03-06 07:38] LABS: BUN/CREATININE RATIO 20.5 (10-20); CREATININE 0.58 mg/dl (0.60-1.20)
[2016-03-06 07:39] LABS: POTASSIUM 3.8 mmol/L (3.5-5.1)
[2016-03-06] MEDS: LACTOBACILLUS ACIDOPHILUS (FLORANEX) TAB PO SCH (08:04)
[2016-03-06] MEDS: TIOTROPIUM BROMIDE 5 PUFF/90 MCG INH INH SCH (08:04)
[2016-03-06] MEDS: BACLOFEN TAB 20 MG TAB PO SCH ×3 (08:05→20:54)
[2016-03-06] MEDS: DULOXETINE (CYMBALTA) 30 MG CAP PO SCH ×2 (08:05→20:54)
[2016-03-06] MEDS: CeleBREX 200 MG CAP PO SCH (08:06)
[2016-03-06] MEDS: ASPIRIN 81 MG CHEW PO SCH (08:07)
[2016-03-06] MEDS: URSODIOL 300 MG CAP PO SCH ×2 (08:07→17:33)
[2016-03-06] MEDS: INSULIN HUMAN NPH SC SCH ×2 (08:17→17:36)
[2016-03-06] MEDS: PREGABALIN 100 MG CAP PO SCH ×3 (08:22→21:01)
[2016-03-06] MEDS ORDERED: DiphenhydrAMINE HCL 50 MG/ML VIAL IV ONE (18:45)
--- NOTE | 2016-03-06 19:47 | Progress Note ---
Medicine Progress Note Date & Time of Visit: Mar 06, 2016 at 19:40. Subjective in good spirits, not in distress states her mental status is better, not confused anymore no chest pain, dyspnea has occasional cough, productive no abdominal pain (+) noted to have facial erythema, with some pruritus (+) erythema of bilateral forearms and chest no throat tightness, tongue/lip swelling denies other symptoms Objective Last 8 Hrs Date Time Temp Pulse Resp B/P Pulse Ox O2 Delivery O2 Flow Rate FiO2 03/06/16 16:00 95 Nasal Cannula 4.0 03/06/16 15:40 37.1 77 22 124/74 96 Nasal Cannula 4.0 03/06/16 12:00 94 Nasal Cannula 4.0 Physical Exam: General- oriented x 3, not in distress, speaks in sentences with no effort Head- atraumatic Eyes- EOMI, anicteric ENT- oropharynx clear Neck- supple, no JVD Face- mild erythema Chest- mild erythema Lungs- mild rales bilateral bases, no wheezes Heart- regular rhythm; no murmur Abdomen- normal bowel sounds, soft, nontender Extremities- no pretibial edema, no calf tenderness Neuro- alert, oriented x 3; no gross focal deficits Skin- warm & dry Laboratory Results: Last 24 Hours Test 03/05/16 21:34 03/06/16 03:53 03/06/16 06:35 03/06/16 06:43 Bedside Glucose 135 mg/dl 191 mg/dl 157 mg/dl White Blood Count 10.35 K/uL Red Blood Count 5.00 M/uL Hemoglobin 12.8 g/dL Hematocrit 41.9 % Mean Corpuscular Volume 83.8 fL Mean Corpuscular Hemoglobin 25.6 pg Mean Corpuscular Hemoglobin Concent 30.5 g/dl RDW Standard Deviation 51.1 fL RDW Coefficient of Variation 16.6 % Platelet Count 153 K/uL Mean Platelet Volume 11.8 fL Sodium Level 140 mmol/L Potassium Level 3.8 mmol/L Chloride Level 96 mmol/L Carbon Dioxide Level 38 mmol/L Anion Gap 6.0 mmol/L Blood Urea Nitrogen 12 mg/dl Creatinine 0.58 mg/dl Est Creatinine Clear Calc Drug Dose 173.4 ml/min Estimated GFR () 111.3 Estimated GFR (Non- 96.1 BUN/Creatinine Ratio 20.5 Random Glucose 161 mg/dl Calcium Level 9.0 mg/dl Magnesium Level 2.0 mg/dl Test 03/06/16 11:34 03/06/16 16:21 Bedside Glucose 177 mg/dl 237 mg/dl Assessment & Plan ALTERED MENTAL STATUS Likely metabolic encephalopathy from infection- possible UTI, possible pneumonia - CAP vs. aspiration - resolved - Ativan held POSSIBLE BILATERAL PNEUMONIA GRAM NEGATIVE BACILLI UTI - (+) MRSA swab - ff up cultures - on Cefepime- discontinue as patient having rash may also have adverse reaction to Ceftaroline may need Imipenem , will discuss with Dr. Corey tomorrow - continue Clindamycin ASTHMA Not wheezing on exam Xopenex nebs PRN Continue home inhalers, Singulair CHRONIC RESPIRATORY FAILURE Continue home oxygen OBESITY HYPOVENTILATION Continue BiPAP HS HYPERTENSION on Atenolol DM TYPE 2 Hold metformin Insulin sliding scale coverage HISTORY OF CVA With residual right sided weakness Continue aspirin and statin HYPOTHYROIDISM Continue levothyroxine WOUNDS ON LOW BACK AND BUTTOCK Healing without erythema or drainage as per Consult wound care nurse Heparin for DVT prophylaxis DISPOSITION Lives with ; has home health Follows with Dr. Romero for primary care PT, OT, and web content & social media manager consulted Current Inpatient Medications: Current Inpatient Medications Medications (Trade) Dose Ordered Sig/Keith Route Start Time Stop Time Status Last Admin Dose Admin Heparin Sodium (Porcine) (Heparin Sq 5000 Unit/0.5ml) 5,000 unit Q8 SQ 03/05/16 22:00 04/04/16 21:59 03/06/16 14:26 5,000 UNIT Acetaminophen (Tylenol Tab) 650 mg Q4H PRN PO 03/05/16 14:30 04/04/16 14:29 03/06/16 05:59 650 MG Ondansetron HCl (Zofran Inj) 4 mg Q6H PRN IV 03/05/16 14:30 04/04/16 14:29 Insulin Aspart (novoLOG ASPART) SLIDING SCALE If C... ACHS SC 03/05/16 16:00 04/04/16 15:59 03/06/16 17:35 18 UNITS Glucose (Glucose 40% Gel) 15-30 GRAMS 15 GRAMS... UD PRN PO 03/05/16 14:45 04/04/16 14:44 Glucose (Glucose Chew Tab) 4-8 Tablets 4 Tabl... UD PRN PO 03/05/16 14:45 04/04/16 14:44 Dextrose (Dextrose 50% 50ML Syringe) 25-50ML OF 50% DW IV FOR... UD PRN IV 03/05/16 14:45 04/04/16 14:44 Glucagon (Glucagon Inj) 1 mg UD PRN SQ 03/05/16 14:45 04/04/16 14:44 Levalbuterol 1.25 mg 1.25 mg Q4R PRN INH 03/05/16 14:45 04/04/16 14:44 Clindamycin Phosphate/Dextrose (Cleocin Iv/ Dextrose Add-Semmes 50ML) 54 ml @ 100 mls/hr Q8@0200,1000,1800 IV 03/05/16 18:00 03/12/16 17:59 03/06/16 17:34 100 MLS/HR Albuterol (Ventolin Hfa Inhaler) 2 puffs QID PRN INH 03/05/16 15:00 04/04/16 14:59 Aspirin (Aspirin Chew) 81 mg QAM PO 03/06/16 09:00 04/05/16 08:59 03/06/16 08:07 81 MG Atenolol (Tenormin Tab) 12.5 mg HS PO 03/05/16 21:00 04/04/16 20:59 03/05/16 21:41 12.5 MG Baclofen (Lioresal Tab) 20 mg TID PO 03/05/16 21:00 04/04/16 20:59 03/06/16 14:01 20 MG Celecoxib (CeleBREX CAP) 200 mg DAILY PO 03/06/16 09:00 04/05/16 08:59 03/06/16 08:06 200 MG Duloxetine HCl (Cymbalta Cap) 30 mg BID PO 03/05/16 21:00 04/04/16 20:59 03/06/16 08:05 30 MG Hydroxyzine HCl (Vistaril Tab) 25 mg Q6 PRN PO 03/05/16 15:00 04/04/16 14:59 Levothyroxine Sodium (Synthroid Tab) 100 mcg DAILYBB PO 03/06/16 06:00 04/05/16 05:59 03/06/16 05:51 100 MCG Montelukast Sodium (Singulair Tab) 10 mg HS PO 03/05/16 21:00 04/04/16 20:59 03/05/16 21:34 10 MG Pantoprazole Sodium (Protonix Tab) 40 mg DAILY@0630 PO 03/06/16 06:30 04/05/16 06:29 03/06/16 05:51 40 MG Pregabalin (Lyrica Cap) 200 mg TID PO 03/05/16 21:00 04/04/16 20:59 03/06/16 14:01 200 MG Simvastatin (Zocor Tab) 20 mg HS PO 03/05/16 21:00 04/04/16 20:59 03/05/16 21:35 20 MG Tiotropium [place] (Spiriva Handihaler Inhaler) 1 puff QAM INH 03/06/16 09:00 04/05/16 08:59 03/06/16 08:04 1 PUFF Ursodiol (Actigall Cap) 600 mg BID@0900,1730 PO 03/05/16 17:30 04/04/16 17:29 03/06/16 17:33 600 MG Miscellaneous Information (Order Awaiting Action) 1 ea Q8 N/A 03/05/16 17:00 04/04/16 16:59 Lactobacillus Acidophilus (Floranex Tab) 1 tab QAM PO 03/06/16 09:00 04/05/16 08:59 03/06/16 08:04 1 TAB Miscellaneous Information (Consult Glycemic Management Pharmacy) 1 ea UD PRN N/A 03/05/16 15:17 04/04/16 15:16 Insulin Human NPH (novoLIN-N NPH) 30 units BIDM SC 03/06/16 07:30 04/05/16 07:59 03/06/16 17:36 30 UNITS Insulin Aspart (novoLOG ASPART) SLIDING SCALE If C... 0000,0400 SC 03/06/16 00:00 04/05/16 00:00 03/06/16 04:14 1 UNITS Sumatriptan Succinate (Imitrex Tab) 50 mg Q2H PRN PO 03/06/16 06:15 04/05/16 06:14 03/06/16 08:03 50 MG Zolpidem Tartrate (Ambien Tab) 5 mg HS PRN PO 03/06/16 18:15 04/05/16 18:14
[2016-03-06] MEDS: SIMVASTATIN 20 MG TAB PO SCH (20:52)
[2016-03-06] MEDS: MONTELUKAST SOD 10 MG TAB PO SCH (20:52)
[2016-03-06] MEDS: ZOLPIDEM TARTRATE 5 MG TAB PO PRN (22:03)
[2016-03-07] VITALS (12 sets, daily range): BP systolic 108–150; BP diastolic 62–79; PULSE 62–84; TEMP 36.5–37.7; O2SAT 92–96
[2016-03-07] MEDS: CLINDAMYCIN IV 600 MG in DEXTROSE 5% ADD-VANTAGE 50ML 50 ML IV SCH ×3 (01:22→18:32)
[2016-03-07] MEDS: ONDANSETRON INJ 2 MG/ML 2 ML VIAL IV PRN ×2 (01:22→11:36)
[2016-03-07] MEDS: INSULIN ASPART 100 UNITS/ML 3 ML PEN SC SCH ×7 (04:00→23:46)
[2016-03-07] MEDS: LEVOTHYROXINE 100 MCG TAB PO SCH (05:48)
[2016-03-07] MEDS: PANTOprazole SOD 40 MG TAB PO SCH (05:48)
[2016-03-07] MEDS: HEPARIN SOD 5000 UNIT/0.5 ML CARP SQ SCH ×3 (05:57→20:48)
[2016-03-07] MEDS: TIOTROPIUM BROMIDE 5 PUFF/90 MCG INH INH SCH (08:18)
[2016-03-07] MEDS: LACTOBACILLUS ACIDOPHILUS (FLORANEX) TAB PO SCH (08:19)
[2016-03-07] MEDS: BACLOFEN TAB 20 MG TAB PO SCH ×3 (08:20→20:33)
[2016-03-07] MEDS: ASPIRIN 81 MG CHEW PO SCH (08:20)
[2016-03-07] MEDS: CeleBREX 200 MG CAP PO SCH (08:20)
[2016-03-07] MEDS: DULOXETINE (CYMBALTA) 30 MG CAP PO SCH ×2 (08:21→20:33)
[2016-03-07] MEDS: URSODIOL 300 MG CAP PO SCH ×2 (08:21→16:46)
[2016-03-07] MEDS: INSULIN HUMAN NPH SC SCH ×2 (08:29→16:45)
[2016-03-07] MEDS: PREGABALIN 100 MG CAP PO SCH ×3 (08:32→20:32)
[2016-03-07] MEDS ORDERED: IMIPENEM/CILASTATIN CONSULT ACTIVE PRN (12:10)
[2016-03-07] MEDS ORDERED: LORAZEPAM 1 MG TAB PO PRN (13:30)
[2016-03-07] MEDS ORDERED: MAGNESIUM HYDROXIDE SUSP 30 ML UDC PO PRN (13:30)
--- NOTE | 2016-03-07 13:31 | Progress Note ---
Medicine Progress Note Date & Time of Visit: Mar 07, 2016 at 13:27. Subjective seen with at bedside in good spirits states she is improving less confusion, almost back to baseline no dyspnea, less cough, no sputum no chest pain no BM yet since admission pruritus has resolved Objective Last 8 Hrs Date Time Temp Pulse Resp B/P Pulse Ox O2 Delivery O2 Flow Rate FiO2 03/07/16 11:01 36.8 74 18 150/79 92 Nasal Cannula 4.0 03/07/16 08:00 36.6 62 20 143/74 94 Room Air Physical Exam: General- oriented x 3, not in distress, speaks in sentences with no effort Eyes-anicteric Neck- supple, no JVD Face- no erythema Chest-no erythema Lungs- mild rales bilateral bases, no wheezes b/l Heart- regular rhythm; no murmur, normal rate Abdomen- normal bowel sounds, soft, nontender Extremities- trace pretibial edema, no calf tenderness Neuro- alert, oriented x 3; no gross focal deficits Skin- warm & dry Laboratory Results: Last 24 Hours Test 03/06/16 16:21 03/06/16 20:50 03/06/16 23:58 03/07/16 03:58 Bedside Glucose 237 mg/dl 232 mg/dl 165 mg/dl 145 mg/dl Test 03/07/16 06:44 03/07/16 11:31 03/07/16 13:10 Bedside Glucose 160 mg/dl 214 mg/dl Assessment & Plan ALTERED MENTAL STATUS Likely metabolic encephalopathy from infection- possible UTI, possible pneumonia - CAP vs. aspiration - resolved POSSIBLE BILATERAL PNEUMONIA KLEBSIELLA UTI - (+) MRSA swab - urine culture: Klebsiella, sensitive to Imipenem blood cultures: negative - on Cefepime- discontinued as patient having rash on the face and arm with pruritus may also have adverse reaction to Ceftaroline hence, Cefepime changed to Imipenem Clindamycin continued - afebrile, no leukocytosis mental status improved - will discuss with ID tomorrow ASTHMA Not wheezing on exam Xopenex nebs PRN Continue home inhalers, Singulair CHRONIC RESPIRATORY FAILURE Continue home oxygen OBESITY HYPOVENTILATION Continue BiPAP HS HYPERTENSION on Atenolol DM TYPE 2 Hold metformin Insulin sliding scale coverage HISTORY OF CVA With residual right sided weakness Continue aspirin and statin HYPOTHYROIDISM Continue levothyroxine WOUNDS ON LOW BACK AND BUTTOCK Healing without erythema or drainage as per Consult wound care nurse Heparin for DVT prophylaxis DISPOSITION Lives with ; has home health Follows with Dr. 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 ACHS SC 03/05/16 16:00 04/04/16 15:59 03/07/16 12:06 15 UNITS Glucose (Glucose 40% Gel) 15-30 GRAMS 15 GRAMS... UD PRN PO 03/05/16 14:45 04/04/16 14:44 Glucose (Glucose Chew Tab) 4-8 Tablets 4 Tabl... UD PRN PO 03/05/16 14:45 04/04/16 14:44 Dextrose (Dextrose 50% 50ML Syringe) 25-50ML OF 50% DW IV FOR... UD PRN IV 03/05/16 14:45 04/04/16 14:44 Glucagon (Glucagon Inj) 1 mg UD PRN SQ 03/05/16 14:45 04/04/16 14:44 Levalbuterol 1.25 mg 1.25 mg Q4R PRN INH 03/05/16 14:45 04/04/16 14:44 Clindamycin Phosphate/Dextrose (Cleocin Iv/ Dextrose Add-[place] 50ML) 54 ml @ 100 mls/hr Q8@0200,1000,1800 IV 03/05/16 18:00 03/12/16 17:59 03/07/16 11:32 100 MLS/HR Albuterol (Ventolin Hfa Inhaler) 2 puffs QID PRN INH 03/05/16 15:00 04/04/16 14:59 Aspirin (Aspirin Chew) 81 mg QAM PO 03/06/16 09:00 04/05/16 08:59 03/07/16 08:20 81 MG Atenolol (Tenormin Tab) 12.5 mg HS PO 03/05/16 21:00 04/04/16 20:59 03/06/16 20:53 12.5 MG Baclofen (Lioresal Tab) 20 mg TID PO 03/05/16 21:00 04/04/16 20:59 03/07/16 08:20 20 MG Celecoxib (CeleBREX CAP) 200 mg DAILY PO 03/06/16 09:00 04/05/16 08:59 03/07/16 08:20 200 MG Duloxetine HCl (Cymbalta Cap) 30 mg BID PO 03/05/16 21:00 04/04/16 20:59 03/07/16 08:21 30 MG Hydroxyzine HCl (Vistaril Tab) 25 mg Q6 PRN PO 03/05/16 15:00 04/04/16 14:59 Levothyroxine Sodium (Synthroid Tab) 100 mcg DAILYBB PO 03/06/16 06:00 04/05/16 05:59 03/07/16 05:48 100 MCG Montelukast Sodium (Singulair Tab) 10 mg HS PO 03/05/16 21:00 04/04/16 20:59 03/06/16 20:52 10 MG Pantoprazole Sodium (Protonix Tab) 40 mg DAILY@0630 PO 03/06/16 06:30 04/05/16 06:29 03/07/16 05:48 40 MG Pregabalin (Lyrica Cap) 200 mg TID PO 03/05/16 21:00 04/04/16 20:59 03/07/16 08:32 200 MG Simvastatin (Zocor Tab) 20 mg HS PO 03/05/16 21:00 04/04/16 20:59 03/06/16 20:52 20 MG Tiotropium [place] (Spiriva Handihaler Inhaler) 1 puff QAM INH 03/06/16 09:00 04/05/16 08:59 03/07/16 08:18 1 PUFF Ursodiol (Actigall Cap) 600 mg BID@0900,1730 PO 03/05/16 17:30 04/04/16 17:29 03/07/16 08:21 600 MG Miscellaneous Information (Order Awaiting Action) 1 ea Q8 N/A 03/05/16 17:00 04/04/16 16:59 Lactobacillus Acidophilus (Floranex Tab) 1 tab QAM PO 03/06/16 09:00 04/05/16 08:59 03/07/16 08:19 1 TAB Miscellaneous Information (Consult Glycemic Management Pharmacy) 1 ea UD PRN N/A 03/05/16 15:17 04/04/16 15:16 Insulin Human NPH (novoLIN-N NPH) 30 units BIDM SC 03/06/16 07:30 04/05/16 07:59 03/07/16 08:29 30 UNITS Insulin Aspart (novoLOG ASPART) SLIDING SCALE If C... 0000,0400 SC 03/06/16 00:00 04/05/16 00:00 03/06/16 04:14 1 UNITS Sumatriptan Succinate (Imitrex Tab) 50 mg Q2H PRN PO 03/06/16 06:15 04/05/16 06:14 03/06/16 08:03 50 MG Zolpidem Tartrate (Ambien Tab) 5 mg HS PRN PO 03/06/16 18:15 04/05/16 18:14 03/06/16 22:03 5 MG Imipenem/ Cilastatin Sodium 1 ea 1 ea UD PRN N/A 03/07/16 12:10 04/06/16 12:09 Imipenem/ Cilastatin Sodium/ Dextrose (Primaxin Iv/D5 100ml) 110 ml @ 110 mls/hr Q6H IV 03/07/16 14:00 03/14/16 13:59 Lorazepam (Ativan Tab) 1 mg DAILY PRN PO 03/07/16 13:30 04/06/16 13:29 UNV Senna/Docusate Sodium (Senokot S Tab) 1 tab QAM PO 03/08/16 09:00 04/07/16 08:59 UNV Senna/Docusate Sodium (Senokot S Tab) 1 tab 1322 ONCE PO 03/07/16 13:22 03/07/16 13:23 UNV Magnesium Hydroxide (Milk Of Magnesia Susp) 30 ml Q6H PRN PO 03/07/16 13:30 04/06/16 13:29 UNV
[2016-03-07 13:45] LABS: BASO % 0.4 %; BASO ABS # 0.04 K/uL (0-0.2); EOS % 2.6 %; HEMATOCRIT 40.3 % (37-47); LYMPH % 21.1 %; LYMPH ABS # 1.89 K/uL (1.2-3.4); MEAN CELL VOLUME 81.6 fL (80-100); MEAN CORPUSCULAR HEMOGLOBIN 25.7 pg (25-34); MEAN CORPUSCULAR HGB CONC 31.5 g/dl (32-36); NEUT % 62.9 %; PLATELET COUNT 145 K/uL (130-400); RED BLOOD COUNT 4.94 M/uL (4.2-5.4); WHITE BLOOD COUNT 8.94 K/uL (4.8-10.8)
[2016-03-07] MEDS ORDERED: DOCUSATE SODIUM/SENNA 50/8.6MG TAB PO ONE (14:00)
[2016-03-07 14:11] LABS: BUN/CREATININE RATIO 22.8 (10-20); CALCIUM 8.4 mg/dl (8.5-10.1); CREATININE 0.69 mg/dl (0.60-1.20); POTASSIUM 4.6 mmol/L (3.5-5.1)
[2016-03-07] MEDS: IMIPENEM/CILASTATIN IV 500 MG in D5W 100ML IV SCH ×2 (14:33→20:31)
[2016-03-07 14:49] LABS: COMPLETE YES
[2016-03-07] MEDS: MONTELUKAST SOD 10 MG TAB PO SCH (20:37)
[2016-03-07] MEDS: SIMVASTATIN 20 MG TAB PO SCH (20:37)
[2016-03-07] MEDS: ZOLPIDEM TARTRATE 5 MG TAB PO PRN (22:07)
[2016-03-08] VITALS (7 sets, daily range): BP systolic 103–145; BP diastolic 58–74; PULSE 64–105; TEMP 36.5–36.9; O2SAT 93–97
[2016-03-08] MEDS: CLINDAMYCIN IV 600 MG in DEXTROSE 5% ADD-VANTAGE 50ML 50 ML IV SCH ×3 (01:29→18:22)
[2016-03-08] MEDS: IMIPENEM/CILASTATIN IV 500 MG in D5W 100ML IV SCH ×4 (02:06→20:10)
[2016-03-08] MEDS: INSULIN ASPART 100 UNITS/ML 3 ML PEN SC SCH ×5 (03:57→20:07)
[2016-03-08] MEDS: LEVOTHYROXINE 100 MCG TAB PO SCH (06:13)
[2016-03-08] MEDS: PANTOprazole SOD 40 MG TAB PO SCH (06:13)
[2016-03-08] MEDS: HEPARIN SOD 5000 UNIT/0.5 ML CARP SQ SCH ×3 (06:17→20:08)
[2016-03-08] MEDS: ACETAMINOPHEN 325 MG TAB PO PRN (06:41)
[2016-03-08 07:37] LABS: BASO % 0.4 %; BASO ABS # 0.03 K/uL (0-0.2); COMPLETE YES; EOS % 3.4 %; HEMATOCRIT 38.6 % (37-47); IG% 1.1 %; LYMPH % 22.1 %; LYMPH ABS # 1.88 K/uL (1.2-3.4); MEAN CELL VOLUME 81.3 fL (80-100); MEAN CORPUSCULAR HEMOGLOBIN 25.3 pg (25-34); MEAN CORPUSCULAR HGB CONC 31.1 g/dl (32-36); MEAN PLATELET VOLUME 11.1 fL (7.4-10.4); MONO % 10.4 %; NEUT % 62.6 %; PLATELET COUNT 140 K/uL (130-400); RED BLOOD COUNT 4.75 M/uL (4.2-5.4); WHITE BLOOD COUNT 8.49 K/uL (4.8-10.8)
[2016-03-08] MEDS: TIOTROPIUM BROMIDE 5 PUFF/90 MCG INH INH SCH (08:01)
[2016-03-08] MEDS: CeleBREX 200 MG CAP PO SCH (08:03)
[2016-03-08] MEDS: LACTOBACILLUS ACIDOPHILUS (FLORANEX) TAB PO SCH (08:03)
[2016-03-08] MEDS: BACLOFEN TAB 20 MG TAB PO SCH ×3 (08:11→20:02)
[2016-03-08] MEDS: ASPIRIN 81 MG CHEW PO SCH (08:11)
[2016-03-08] MEDS: URSODIOL 300 MG CAP PO SCH ×2 (08:12→18:23)
[2016-03-08] MEDS: DULOXETINE (CYMBALTA) 30 MG CAP PO SCH ×2 (08:12→20:02)
[2016-03-08] MEDS: DOCUSATE SODIUM/SENNA 50/8.6MG TAB PO SCH (08:13)
[2016-03-08 08:16] LABS: BUN/CREATININE RATIO 24.6 (10-20); CALCIUM 8.5 mg/dl (8.5-10.1); CREATININE 0.54 mg/dl (0.60-1.20); POTASSIUM 3.6 mmol/L (3.5-5.1)
[2016-03-08] MEDS: PREGABALIN 100 MG CAP PO SCH ×3 (08:23→20:04)
[2016-03-08] MEDS: INSULIN HUMAN NPH SC SCH ×2 (08:28→18:21)
--- NOTE | 2016-03-08 11:00 | Pharmacy Progress Note ---
Glycemic Control: Progress Nt Date of Service Mar 08, 2016. Scope Glycemic Pharmacist consulted by Dr Dipti Smith on 03/05/16 for glycemic control and to write orders per [facility] inpatient glycemic control protocol. Objective Accuchecks BSG (last 24hrs): Test 03/07/16 11:31 03/07/16 13:33 03/07/16 16:27 03/07/16 20:09 Bedside Glucose 214 mg/dl (70-90) 251 mg/dl (70-90) 262 mg/dl (70-90) Random Glucose 257 mg/dl (70-99) Test 03/07/16 23:41 03/08/16 03:54 03/08/16 07:20 03/08/16 07:33 Bedside Glucose 209 mg/dl (70-90) 197 mg/dl (70-90) 173 mg/dl (70-90) Random Glucose 198 mg/dl (70-99) Laboratory Data (last 24hrs) Test 03/07/16 13:33 03/08/16 07:20 Anion Gap 10.0 mmol/L 10.0 mmol/L BUN/Creatinine Ratio 22.8 24.6 Blood Urea Nitrogen 16 mg/dl 13 mg/dl Creatinine 0.69 mg/dl 0.54 mg/dl Potassium Level 4.6 mmol/L 3.6 mmol/L Sodium Level 143 mmol/L 142 mmol/L White Blood Count 8.94 K/uL 8.49 K/uL Red Blood Count 4.94 M/uL 4.75 M/uL Hemoglobin 12.7 g/dL 12.0 g/dL Hematocrit 40.3 % 38.6 % Mean Corpuscular Volume 81.6 fL 81.3 fL Mean Corpuscular Hemoglobin 25.7 pg 25.3 pg Mean Corpuscular Hemoglobin Concent 31.5 g/dl 31.1 g/dl Platelet Count 145 K/uL 140 K/uL Mean Platelet Volume 12.0 fL 11.1 fL Neutrophils (%) (Auto) 62.9 % 62.6 % Lymphocytes (%) (Auto) 21.1 % 22.1 % Monocytes (%) (Auto) 12.0 % 10.4 % Eosinophils (%) (Auto) 2.6 % 3.4 % Basophils (%) (Auto) 0.4 % 0.4 % Neutrophils # (Auto) 5.62 K/uL 5.32 K/uL Lymphocytes # (Auto) 1.89 K/uL 1.88 K/uL Monocytes # (Auto) 1.07 K/uL 0.88 K/uL Eosinophils # (Auto) 0.23 K/uL 0.29 K/uL Basophils # (Auto) 0.04 K/uL 0.03 K/uL Recent Pertinent Medications Outpatient Anti-diabetic Regimen: * NPH 72 units TID with meals per sliding scale * Metformin ER 1000mg PO daily * A1c: 6.5% 01/2016 The patient is currently receiving: * Basal insulin: NPH 30 units SC BIDM - 1/2 for BSG < 110 mg/dL * Correctional Insulin: NovoLog Correction per scale ACHS with additional 0000,0400 checks Goal Range: Low 140 mg/dL - High 180 mg/dL Correction Factor: 15 mg/dL/unit * Prandial insulin: Per carb ratio of 1 unit per 5 grams CHO consumed * Oral Agents: none at this time Risk Factors for Insulin Resistance: * Infection: PNA and UTI - on imipenem and clindamycin * Diet: T2DM Assessment & Plan ASSESSMENT: * ADA & AACE recommend a goal blood sugar range 140-180 mg/dl for the majority of critically ill & non-critically ill patients. However, more stringent targets may be selected in individual cases. * 65 yo F with AMS / confusion, improving. * BSG's ranging 172-262 mg/dL over the last 24 hours. Patient required additional insulin x2 overnight. * AM fasting BSG's persistently elevated - will increase basal/NPH by ~10%. * OK to decrease overnight checks to just one tonight as increase in NPH will hopefully help manage overnight hyperglycemia (and patient only received 4 units total overnight last night and none the night before) * Will decrease goal range which will also provide 1-2 extra units of insulin at each BSG check that is greater than 180 mg/dL PLAN FOR INPATIENT GLYCEMIC CONTROL: * Holding outpatient oral diabetes medications * Increase basal insulin with NPH 34 units SQ BID - 1/2 dose for BSG < 110 mg/dL * Correctional Insulin with NOVOLOG per scale ACHS or Q6hrs while NPO - additional check at 0200 only tomorrow * Decrease Goal Range: Low 120 mg/dL - High 160 mg/dL * Correction Factor: 15 mg/dL/unit * Nutritional / Prandial insulin per carb ratio of 1 unit per 5 grams CHO consumed * Please note that the plan above was derived based on current level of insulin resistance and hospital stress. These recommendations are appropriate for inpatient admission only. Plan of care upon discharge will need to be reassessed to avoid potential outpatient hypo/hyperglycemia. Thank you.
--- NOTE | 2016-03-08 14:13 | Infectious Disease Progress Nt ---
Progress Note Date of Service Mar 08, 2016. Subjective Pt evaluation today including: conversation w/ patient, conversation w/ family (), physical exam, chart review, lab review, review of studies, review of inpatient medication list Patient is feeling much improved today. Her mental status is much closer to baseline according to her . Her WBC count this morning was 8.49. Creatinine is 0.54. Urine culture grew Klebsiella Oxytoca resistant to Cefazolin only. MRSA nasal swab was positive, and blood cultures have shown no growth. She was previously on IV Clindamycin and Cefepime, but developed a bright red rash over the weekend. Cefepime was discontinued and she was started on IV Primaxin and appears to be tolerating this well. She has had no repeat imaging since admission. She has been afebrile. All Other Systems: Reviewed and Negative Medications Current Inpatient Medications Medications (Trade) Dose Ordered Sig/Keith Route Start Time Stop Time Status Last Admin Dose Admin Heparin Sodium (Porcine) (Heparin Sq 5000 Unit/0.5ml) 5,000 unit Q8 SQ 03/05/16 22:00 04/04/16 21:59 03/08/16 06:17 5,000 UNIT Acetaminophen (Tylenol Tab) 650 mg Q4H PRN PO 03/05/16 14:30 04/04/16 14:29 03/08/16 06:41 650 MG Ondansetron HCl (Zofran Inj) 4 mg Q6H PRN IV 03/05/16 14:30 04/04/16 14:29 03/07/16 11:36 4 MG Insulin Aspart (novoLOG ASPART) SLIDING SCALE If C... ACHS SC 03/05/16 16:00 04/04/16 15:59 03/08/16 13:33 20 UNITS Glucose (Glucose 40% Gel) 15-30 GRAMS 15 GRAMS... UD PRN PO 03/05/16 14:45 04/04/16 14:44 Glucose (Glucose Chew Tab) 4-8 Tablets 4 Tabl... UD PRN PO 03/05/16 14:45 04/04/16 14:44 Dextrose (Dextrose 50% 50ML Syringe) 25-50ML OF 50% DW IV FOR... UD PRN IV 03/05/16 14:45 04/04/16 14:44 Glucagon (Glucagon Inj) 1 mg UD PRN SQ 03/05/16 14:45 04/04/16 14:44 Levalbuterol 1.25 mg 1.25 mg Q4R PRN INH 03/05/16 14:45 04/04/16 14:44 Clindamycin Phosphate/Dextrose (Cleocin Iv/ Dextrose Add-[place] 50ML) 54 ml @ 100 mls/hr Q8@0200,1000,1800 IV 03/05/16 18:00 03/12/16 17:59 03/08/16 09:28 100 MLS/HR Albuterol (Ventolin Hfa Inhaler) 2 puffs QID PRN INH 03/05/16 15:00 04/04/16 14:59 Aspirin (Aspirin Chew) 81 mg QAM PO 03/06/16 09:00 04/05/16 08:59 03/08/16 08:11 81 MG Atenolol (Tenormin Tab) 12.5 mg HS PO 03/05/16 21:00 04/04/16 20:59 03/07/16 20:37 12.5 MG Baclofen (Lioresal Tab) 20 mg TID PO 03/05/16 21:00 04/04/16 20:59 03/08/16 08:11 20 MG Celecoxib (CeleBREX CAP) 200 mg DAILY PO 03/06/16 09:00 04/05/16 08:59 03/08/16 08:03 200 MG Duloxetine HCl (Cymbalta Cap) 30 mg BID PO 03/05/16 21:00 04/04/16 20:59 03/08/16 08:12 30 MG Hydroxyzine HCl (Vistaril Tab) 25 mg Q6 PRN PO 03/05/16 15:00 04/04/16 14:59 Levothyroxine Sodium (Synthroid Tab) 100 mcg DAILYBB PO 03/06/16 06:00 04/05/16 05:59 03/08/16 06:13 100 MCG Montelukast Sodium (Singulair Tab) 10 mg HS PO 03/05/16 21:00 04/04/16 20:59 03/07/16 20:37 10 MG Pantoprazole Sodium (Protonix Tab) 40 mg DAILY@0630 PO 03/06/16 06:30 04/05/16 06:29 03/08/16 06:13 40 MG Pregabalin (Lyrica Cap) 200 mg TID PO 03/05/16 21:00 04/04/16 20:59 03/08/16 08:23 200 MG Simvastatin (Zocor Tab) 20 mg HS PO 03/05/16 21:00 04/04/16 20:59 03/07/16 20:37 20 MG Tiotropium [place] (Spiriva Handihaler Inhaler) 1 puff QAM INH 03/06/16 09:00 04/05/16 08:59 03/08/16 08:01 1 PUFF Ursodiol (Actigall Cap) 600 mg BID@0900,1730 PO 03/05/16 17:30 04/04/16 17:29 03/08/16 08:12 600 MG Miscellaneous Information (Order Awaiting Action) 1 ea Q8 N/A 03/05/16 17:00 04/04/16 16:59 Lactobacillus Acidophilus (Floranex Tab) 1 tab QAM PO 03/06/16 09:00 04/05/16 08:59 03/08/16 08:03 1 TAB Miscellaneous Information (Consult Glycemic Management Pharmacy) 1 ea UD PRN N/A 03/05/16 15:17 04/04/16 15:16 Sumatriptan Succinate (Imitrex Tab) 50 mg Q2H PRN PO 03/06/16 06:15 04/05/16 06:14 03/06/16 08:03 50 MG Zolpidem Tartrate (Ambien Tab) 5 mg HS PRN PO 03/06/16 18:15 04/05/16 18:14 03/07/16 22:07 5 MG Imipenem/ Cilastatin Sodium 1 ea 1 ea UD PRN N/A 03/07/16 12:10 04/06/16 12:09 Imipenem/ Cilastatin Sodium/ Dextrose (Primaxin Iv/D5 100ml) 110 ml @ 110 mls/hr Q6H IV 03/07/16 14:00 03/14/16 13:59 03/08/16 08:01 110 MLS/HR Lorazepam (Ativan Tab) 1 mg DAILY PRN PO 03/07/16 13:30 04/06/16 13:29 Senna/Docusate Sodium (Senokot S Tab) 1 tab QAM PO 03/08/16 08:00 04/07/16 08:59 03/08/16 08:13 1 TAB Magnesium Hydroxide (Milk Of Magnesia Susp) 30 ml Q6H PRN PO 03/07/16 13:30 04/06/16 13:29 Insulin Human NPH (novoLIN-N NPH) 17 UNITS FOR BSG < 110 MG... BIDM SC 03/08/16 17:00 04/07/16 16:59 Insulin Aspart (novoLOG ASPART) SLIDING SCALE If C... DAILY@0200 SC 03/09/16 02:00 04/08/16 01:59 Objective Vital Signs Date Time Temp Pulse Resp B/P Pulse Ox O2 Delivery O2 Flow Rate FiO2 03/08/16 08:00 97 Nasal Cannula 4.0 03/08/16 07:07 36.5 64 20 103/58 97 Nasal Cannula 5.0 03/08/16 00:00 BiPAP 4.0 03/07/16 23:00 36.5 69 18 108/62 96 BiPAP 03/07/16 22:31 84 93 4.0 03/07/16 20:35 78 140/69 03/07/16 17:45 36.9 74 18 95 4.0 03/07/16 16:00 95 Nasal Cannula 4.0 03/07/16 15:18 36.9 74 18 125/71 92 Nasal Cannula 4.0 Physical Exam General Appearance: no apparent distress, + obese Eyes: normal inspection, sclerae normal ENT: hearing grossly normal Neck: supple, trachea midline Respiratory/Chest: no respiratory distress, no accessory muscle use, + pertinent finding (distant breath sounds. No crackles appreciated.) Cardiovascular: regular rate, rhythm Abdomen: normal bowel sounds, non tender, soft Extremities: + swelling (Trace to 1+ pitting edema of the bilateral lower extremities ) Neurologic/Psychiatric: alert, normal mood/affect Skin: normal color, warm/dry, no rash Laboratory Results RUN DATE: 03/07/16 [facility] PAGE 1 RUN TIME: 907 Specimen Inquiry PATIENT: DAVID MAYO LOC: [facility] U # : [id number] AGE/SX: 65/F ROOM: [facility] REG : 03/05/[address]: Brad Medrano MD : [id number] BED: 1 DIS : STATUS: ADM IN TLOC: SPEC #: [id number] ZELDA: 03/05/16 STATUS: COMP REQ #: [id number] RECD: 03/05/[address] [facility] [address]: Whit Gonzalez D.OKeena SOURCE: URINE CATH ENTR: 03/05/16-[address]: Radha Romero [place] ORDERED: CULTURE UR CATH Procedure Result Verified Site URINE CULTURE Final 03/07/16-907 Organism 1 KLEBSIELLA OXYTOCA COLONY COUNT >100,000 CFU/ml SENS SENSITIVITY TO FOLLOW 1. KLEBSIELLA OXYTOCA Target Route Dose RX AB Cost M.I.C. IQ ------ ----- ------ -- ------ -------- - ------ TRIMET/SULFA S <=2/38 AMPICILLIN/SUL S <=8/4 CEFAZOLIN R >16 CEFOTAXIME S <=2 CEFTRIAXONE S <=1 CEFEPIME S <=4 CEFUROXIME S <=4 IMIPENEM S <=1 GENTAMICIN S <=4 TOBRAMYCIN S <=4 AMIKACIN S <=16 CIPROFLOXACIN S <=1 LEVOFLOXACIN S <=2 ERTAPENEM S <=1 NITROFURANTOIN S <=32 PIP/TAZO S <=16 S = SENSITIVE I = INTERMEDIATE R = RESISTANT Item Value Date Time MRSA DNA Surveillance Screen - Final Complete 03/05/16 1700 Nasal Specimen Positive for MRSA by DNA Probe Blood Culture - Preliminary Resulted 03/05/16 1150 Blood NO GROWTH TO DATE. Blood Culture - Preliminary Resulted 03/05/16 1140 Blood NO GROWTH TO DATE. Urine Culture - Final Complete 03/05/16 1138 Urine,Catheterized Klebsiella Oxytoca Last 24 Hours Test 03/07/16 16:27 03/07/16 20:09 03/07/16 23:41 03/08/16 03:54 Bedside Glucose 251 mg/dl 262 mg/dl 209 mg/dl 197 mg/dl Test 03/08/16 07:20 03/08/16 07:33 03/08/16 11:34 White Blood Count 8.49 K/uL Red Blood Count 4.75 M/uL Hemoglobin 12.0 g/dL Hematocrit 38.6 % Mean Corpuscular Volume 81.3 fL Mean Corpuscular Hemoglobin 25.3 pg Mean Corpuscular Hemoglobin Concent 31.1 g/dl Platelet Count 140 K/uL Mean Platelet Volume 11.1 fL Neutrophils (%) (Auto) 62.6 % Lymphocytes (%) (Auto) 22.1 % Monocytes (%) (Auto) 10.4 % Eosinophils (%) (Auto) 3.4 % Basophils (%) (Auto) 0.4 % Neutrophils # (Auto) 5.32 K/uL Lymphocytes # (Auto) 1.88 K/uL Monocytes # (Auto) 0.88 K/uL Eosinophils # (Auto) 0.29 K/uL Basophils # (Auto) 0.03 K/uL RDW Standard Deviation 49.0 fL RDW Coefficient of Variation 16.5 % Immature Granulocyte % (Auto) 1.1 % Immature Granulocyte # (Auto) 0.09 K/uL Sodium Level 142 mmol/L Potassium Level 3.6 mmol/L Chloride Level 98 mmol/L Carbon Dioxide Level 34 mmol/L Anion Gap 10.0 mmol/L Blood Urea Nitrogen 13 mg/dl Creatinine 0.54 mg/dl Est Creatinine Clear Calc Drug Dose 181.4 ml/min Estimated GFR () 114.0 Estimated GFR (Non- 98.3 BUN/Creatinine Ratio 24.6 Random Glucose 198 mg/dl Calcium Level 8.5 mg/dl Bedside Glucose 173 mg/dl 242 mg/dl Assessment and Plan Patient with possible bibasilar pneumonia with altered mental status on admission along with Klebsiella oxytoca UTI. The patient has an extensive allergy list including multiple antibiotics, and she was empirically placed on IV clindamycin and cefepime. She developed rash and has since been on Clindamycin and Primaxin. Upon discussion with the patient, she does tolerate Bactrim well. Will repeat CXR, but if she appears to have major improvement, may consider transition to PO Clindamycin and PO Bactrim DS tomorrow for continued coverage of MRSA pna, aspiration pna, and Klebsiella in urine. We will follow. Plan: 1. Continue IV Clindamycin and Primaxin 2. Repeat CXR 3. Consider transition to PO tomorrow PROVIDER ADDENDUM: Patient reviewed with Ms. Freeman. Agree with above assessment.
--- NOTE | 2016-03-08 15:30 | DIAGNOSTIC IMAGING REPORT ---
CHEST ONE VIEW PORTABLE CLINICAL HISTORY: Altered mental status COMPARISON STUDY: 03/05/2016 FINDINGS: The study is limited from a technical standpoint. The heart is mildly enlarged. There is mild central pulmonary vascular prominence, without evidence of overt failure. There is persistent but improving left lower lobe consolidation. A trace left pleural effusion cannot be excluded. There are persistent calcifications within the proximal right humerus, likely representing a bone infarct or chondroid lesion. IMPRESSION: 1. Persistent but improving left basilar airspace consolidation 2. Mild vascular prominence, without evidence of overt failure. Electronically signed by: Yvon Hermosillo M.D. 03/08/2016 3:27 PM Dictated Date/Time: 03/08/2016 3:25 PM
--- NOTE | 2016-03-08 19:09 | Progress Note ---
Medicine Progress Note Date & Time of Visit: Mar 08, 2016 at 19:09. delayed entry date of service 03/08/16 Subjective patient seen resting in bed, in good spirits, oriented x 3 states she feels better overall denies dyspnea, has occasional dry cough, no abdominal pain /nausea no other symptoms Objective Last 8 Hrs Date Time Temp Pulse Resp B/P Pulse Ox O2 Delivery O2 Flow Rate FiO2 03/08/16 16:00 97 Nasal Cannula 4.0 03/08/16 14:58 36.8 73 20 145/66 96 Nasal Cannula 4.0 Physical Exam: General- oriented x 3, not in distress, speaks in sentences with no effort Neck- no JVD Lungs- mild rales bilateral bases, no wheezes b/l Heart- regular rhythm; no murmur, normal rate Abdomen- normal bowel sounds, soft, nontender Extremities- trace pretibial edema, no calf tenderness Neuro- alert, oriented x 3; no gross focal deficits Skin- warm & dry Laboratory Results: Last 24 Hours Test 03/07/16 20:09 03/07/16 23:41 03/08/16 03:54 03/08/16 07:20 Bedside Glucose 262 mg/dl 209 mg/dl 197 mg/dl White Blood Count 8.49 K/uL Red Blood Count 4.75 M/uL Hemoglobin 12.0 g/dL Hematocrit 38.6 % Mean Corpuscular Volume 81.3 fL Mean Corpuscular Hemoglobin 25.3 pg Mean Corpuscular Hemoglobin Concent 31.1 g/dl Platelet Count 140 K/uL Mean Platelet Volume 11.1 fL Neutrophils (%) (Auto) 62.6 % Lymphocytes (%) (Auto) 22.1 % Monocytes (%) (Auto) 10.4 % Eosinophils (%) (Auto) 3.4 % Basophils (%) (Auto) 0.4 % Neutrophils # (Auto) 5.32 K/uL Lymphocytes # (Auto) 1.88 K/uL Monocytes # (Auto) 0.88 K/uL Eosinophils # (Auto) 0.29 K/uL Basophils # (Auto) 0.03 K/uL RDW Standard Deviation 49.0 fL RDW Coefficient of Variation 16.5 % Immature Granulocyte % (Auto) 1.1 % Immature Granulocyte # (Auto) 0.09 K/uL Sodium Level 142 mmol/L Potassium Level 3.6 mmol/L Chloride Level 98 mmol/L Carbon Dioxide Level 34 mmol/L Anion Gap 10.0 mmol/L Blood Urea Nitrogen 13 mg/dl Creatinine 0.54 mg/dl Est Creatinine Clear Calc Drug Dose 181.4 ml/min Estimated GFR () 114.0 Estimated GFR (Non- 98.3 BUN/Creatinine Ratio 24.6 Random Glucose 198 mg/dl Calcium Level 8.5 mg/dl Test 03/08/16 07:33 03/08/16 11:34 03/08/16 16:44 Bedside Glucose 173 mg/dl 242 mg/dl 253 mg/dl Assessment & Plan ALTERED MENTAL STATUS Likely metabolic encephalopathy from infection- possible UTI, possible pneumonia - CAP vs. aspiration - mental status back to baseline POSSIBLE BILATERAL PNEUMONIA KLEBSIELLA UTI Work up: - (+) MRSA swab - urine culture: Klebsiella, sensitive to Imipenem blood cultures: negative - was initially on Cefepime- discontinued as patient developed rash on the face and arm with pruritus hence, Cefepime changed to Imipenem Clindamycin continued - remains afebrile, no leukocytosis mental status improved - ID on board ASTHMA Not wheezing on exam Xopenex nebs PRN Continue home inhalers, Singulair CHRONIC RESPIRATORY FAILURE Continue home oxygen OBESITY HYPOVENTILATION Continue BiPAP HS HYPERTENSION on Atenolol DM TYPE 2 Hold metformin Insulin sliding scale coverage HISTORY OF CVA With residual right sided weakness Continue aspirin and statin HYPOTHYROIDISM Continue levothyroxine WOUNDS ON LOW BACK AND BUTTOCK Healing without erythema or drainage as per Consult wound care nurse Heparin for DVT prophylaxis DISPOSITION Lives with ; has home health Follows with Dr. Romero for primary care anticipate d/c home when cleared by ID Current Inpatient Medications: Current Inpatient Medications Medications (Trade) Dose Ordered Sig/Keith Route Start Time Stop Time Status Last Admin Dose Admin Heparin Sodium (Porcine) (Heparin Sq 5000 Unit/0.5ml) 5,000 unit Q8 SQ 03/05/16 22:00 04/04/16 21:59 03/08/16 15:37 5,000 UNIT Acetaminophen (Tylenol Tab) 650 mg Q4H PRN PO 03/05/16 14:30 04/04/16 14:29 03/08/16 06:41 650 MG Ondansetron HCl (Zofran Inj) 4 mg Q6H PRN IV 03/05/16 14:30 04/04/16 14:29 03/07/16 11:36 4 MG Insulin Aspart (novoLOG ASPART) SLIDING SCALE If C... ACHS SC 03/05/16 16:00 04/04/16 15:59 03/08/16 18:18 18 UNITS Glucose (Glucose 40% Gel) 15-30 GRAMS 15 GRAMS... UD PRN PO 03/05/16 14:45 04/04/16 14:44 Glucose (Glucose Chew Tab) 4-8 Tablets 4 Tabl... UD PRN PO 03/05/16 14:45 04/04/16 14:44 Dextrose (Dextrose 50% 50ML Syringe) 25-50ML OF 50% DW IV FOR... UD PRN IV 03/05/16 14:45 04/04/16 14:44 Glucagon (Glucagon Inj) 1 mg UD PRN SQ 03/05/16 14:45 04/04/16 14:44 Levalbuterol 1.25 mg 1.25 mg Q4R PRN INH 03/05/16 14:45 04/04/16 14:44 Clindamycin Phosphate/Dextrose (Cleocin Iv/ Dextrose Add-[place] 50ML) 54 ml @ 100 mls/hr Q8@0200,1000,1800 IV 03/05/16 18:00 03/12/16 17:59 03/08/16 18:22 100 MLS/HR Albuterol (Ventolin Hfa Inhaler) 2 puffs QID PRN INH 03/05/16 15:00 04/04/16 14:59 Aspirin (Aspirin Chew) 81 mg QAM PO 03/06/16 09:00 04/05/16 08:59 03/08/16 08:11 81 MG Atenolol (Tenormin Tab) 12.5 mg HS PO 03/05/16 21:00 04/04/16 20:59 03/07/16 20:37 12.5 MG Baclofen (Lioresal Tab) 20 mg TID PO 03/05/16 21:00 04/04/16 20:59 03/08/16 15:33 20 MG Celecoxib (CeleBREX CAP) 200 mg DAILY PO 03/06/16 09:00 04/05/16 08:59 03/08/16 08:03 200 MG Duloxetine HCl (Cymbalta Cap) 30 mg BID PO 03/05/16 21:00 04/04/16 20:59 03/08/16 08:12 30 MG Hydroxyzine HCl (Vistaril Tab) 25 mg Q6 PRN PO 03/05/16 15:00 04/04/16 14:59 Levothyroxine Sodium (Synthroid Tab) 100 mcg DAILYBB PO 03/06/16 06:00 04/05/16 05:59 03/08/16 06:13 100 MCG Montelukast Sodium (Singulair Tab) 10 mg HS PO 03/05/16 21:00 04/04/16 20:59 03/07/16 20:37 10 MG Pantoprazole Sodium (Protonix Tab) 40 mg DAILY@0630 PO 03/06/16 06:30 04/05/16 06:29 03/08/16 06:13 40 MG Pregabalin (Lyrica Cap) 200 mg TID PO 03/05/16 21:00 04/04/16 20:59 03/08/16 15:37 200 MG Simvastatin (Zocor Tab) 20 mg HS PO 03/05/16 21:00 04/04/16 20:59 03/07/16 20:37 20 MG Tiotropium [place] (Spiriva Handihaler Inhaler) 1 puff QAM INH 03/06/16 09:00 04/05/16 08:59 03/08/16 08:01 1 PUFF Ursodiol (Actigall Cap) 600 mg BID@0900,1730 PO 03/05/16 17:30 04/04/16 17:29 03/08/16 18:23 600 MG Miscellaneous Information (Order Awaiting Action) 1 ea Q8 N/A 03/05/16 17:00 04/04/16 16:59 Lactobacillus Acidophilus (Floranex Tab) 1 tab QAM PO 03/06/16 09:00 04/05/16 08:59 03/08/16 08:03 1 TAB Miscellaneous Information (Consult Glycemic Management Pharmacy) 1 ea UD PRN N/A 03/05/16 15:17 04/04/16 15:16 Sumatriptan Succinate (Imitrex Tab) 50 mg Q2H PRN PO 03/06/16 06:15 04/05/16 06:14 03/06/16 08:03 50 MG Zolpidem Tartrate (Ambien Tab) 5 mg HS PRN PO 03/06/16 18:15 04/05/16 18:14 03/07/16 22:07 5 MG Imipenem/ Cilastatin Sodium 1 ea 1 ea UD PRN N/A 03/07/16 12:10 04/06/16 12:09 Imipenem/ Cilastatin Sodium/ Dextrose (Primaxin Iv/D5 100ml) 110 ml @ 110 mls/hr Q6H IV 03/07/16 14:00 03/14/16 13:59 03/08/16 15:29 110 MLS/HR Lorazepam (Ativan Tab) 1 mg DAILY PRN PO 03/07/16 13:30 04/06/16 13:29 Senna/Docusate Sodium (Senokot S Tab) 1 tab QAM PO 03/08/16 08:00 04/07/16 08:59 03/08/16 08:13 1 TAB Magnesium Hydroxide (Milk Of Magnesia Susp) 30 ml Q6H PRN PO 03/07/16 13:30 04/06/16 13:29 Insulin Human NPH (novoLIN-N NPH) 17 UNITS FOR BSG < 110 MG... BIDM SC 03/08/16 17:00 04/07/16 16:59 03/08/16 18:21 34 UNITS Insulin Aspart (novoLOG ASPART) SLIDING SCALE If C... DAILY@0200 SC 03/09/16 02:00 04/08/16 01:59
[2016-03-08] MEDS: MONTELUKAST SOD 10 MG TAB PO SCH (20:02)
[2016-03-08] MEDS: SIMVASTATIN 20 MG TAB PO SCH (20:03)
[2016-03-08] MEDS: ZOLPIDEM TARTRATE 5 MG TAB PO PRN (22:38)
[2016-03-09] MEDS: CLINDAMYCIN IV 600 MG in DEXTROSE 5% ADD-VANTAGE 50ML 50 ML IV SCH ×3 (01:39→18:01)
[2016-03-09] MEDS: IMIPENEM/CILASTATIN IV 500 MG in D5W 100ML IV SCH ×4 (01:39→19:31)
[2016-03-09] MEDS ORDERED: INSULIN ASPART 100 UNITS/ML 3 ML PEN SC SCH (02:00)
[2016-03-09] MEDS: HEPARIN SOD 5000 UNIT/0.5 ML CARP SQ SCH ×3 (06:01→21:15)
[2016-03-09] MEDS: PANTOprazole SOD 40 MG TAB PO SCH (06:10)
[2016-03-09] MEDS: LEVOTHYROXINE 100 MCG TAB PO SCH (06:10)
[2016-03-09 07:59] VITALS: BP 143/71; PULSE 61; TEMP 36.9; O2SAT 97
[2016-03-09 08:10] LABS: BASO % 0.3 %; BASO ABS # 0.03 K/uL (0-0.2); COMPLETE YES; EOS % 3.2 %; HEMATOCRIT 39.3 % (37-47); IG% 0.9 %; LYMPH % 26.3 %; LYMPH ABS # 2.28 K/uL (1.2-3.4); MEAN CELL VOLUME 81.9 fL (80-100); MEAN CORPUSCULAR HEMOGLOBIN 25.8 pg (25-34); MEAN CORPUSCULAR HGB CONC 31.6 g/dl (32-36); MEAN PLATELET VOLUME 11.7 fL (7.4-10.4); MONO % 9.6 %; NEUT % 59.7 %; PLATELET COUNT 139 K/uL (130-400); WHITE BLOOD COUNT 8.66 K/uL (4.8-10.8)
[2016-03-09 08:41] LABS: BUN/CREATININE RATIO 23.2 (10-20); CALCIUM 8.8 mg/dl (8.5-10.1); CREATININE 0.53 mg/dl (0.60-1.20); POTASSIUM 3.5 mmol/L (3.5-5.1)
[2016-03-09] MEDS: INSULIN ASPART 100 UNITS/ML 3 ML PEN SC SCH ×4 (09:36→21:14)
[2016-03-09] MEDS: INSULIN HUMAN NPH SC SCH ×2 (09:39→18:06)
[2016-03-09] MEDS: TIOTROPIUM BROMIDE 5 PUFF/90 MCG INH INH SCH (09:41)
[2016-03-09] MEDS: DOCUSATE SODIUM/SENNA 50/8.6MG TAB PO SCH (09:42)
[2016-03-09] MEDS: PREGABALIN 100 MG CAP PO SCH ×3 (09:42→19:36)
[2016-03-09] MEDS: CeleBREX 200 MG CAP PO SCH (09:43)
[2016-03-09] MEDS: URSODIOL 300 MG CAP PO SCH ×2 (09:44→18:02)
[2016-03-09] MEDS: DULOXETINE (CYMBALTA) 30 MG CAP PO SCH ×2 (09:44→19:32)
[2016-03-09] MEDS: LACTOBACILLUS ACIDOPHILUS (FLORANEX) TAB PO SCH (09:44)
[2016-03-09] MEDS: BACLOFEN TAB 20 MG TAB PO SCH ×3 (09:45→19:32)
[2016-03-09] MEDS: ASPIRIN 81 MG CHEW PO SCH (10:23)
--- NOTE | 2016-03-09 13:09 | Infectious Disease Progress Nt ---
Progress Note Date of Service Mar 09, 2016. Subjective Pt evaluation today including: conversation w/ patient, conversation w/ family , physical exam, chart review, lab review, review of studies, conversation w/ rehabilitation consultant (Dr. Medrano), review of inpatient medication list White blood cell count today was 8.6. Creatinine was 0.53. Blood cultures continue to show no growth to date. Repeat chest x-ray showed persistent but improving left basilar airspace consolidation. The patient states that she is feeling well today. She is having no trouble with breathing. She is having no continued urinary symptoms. She is tolerating her antibiotic therapy well. She continues on IV Primaxin and clindamycin. All Other Systems: Reviewed and Negative Medications Current Inpatient Medications Medications (Trade) Dose Ordered Sig/Keith Route Start Time Stop Time Status Last Admin Dose Admin Heparin Sodium (Porcine) (Heparin Sq 5000 Unit/0.5ml) 5,000 unit Q8 SQ 03/05/16 22:00 04/04/16 21:59 03/09/16 06:01 5,000 UNIT Acetaminophen (Tylenol Tab) 650 mg Q4H PRN PO 03/05/16 14:30 04/04/16 14:29 03/08/16 06:41 650 MG Ondansetron HCl (Zofran Inj) 4 mg Q6H PRN IV 03/05/16 14:30 04/04/16 14:29 03/07/16 11:36 4 MG Insulin Aspart (novoLOG ASPART) SLIDING SCALE If C... ACHS SC 03/05/16 16:00 04/04/16 15:59 03/09/16 12:23 16 UNITS Glucose (Glucose 40% Gel) 15-30 GRAMS 15 GRAMS... UD PRN PO 03/05/16 14:45 04/04/16 14:44 Glucose (Glucose Chew Tab) 4-8 Tablets 4 Tabl... UD PRN PO 03/05/16 14:45 04/04/16 14:44 Dextrose (Dextrose 50% 50ML Syringe) 25-50ML OF 50% DW IV FOR... UD PRN IV 03/05/16 14:45 04/04/16 14:44 Glucagon (Glucagon Inj) 1 mg UD PRN SQ 03/05/16 14:45 04/04/16 14:44 Levalbuterol 1.25 mg 1.25 mg Q4R PRN INH 03/05/16 14:45 04/04/16 14:44 Clindamycin Phosphate/Dextrose (Cleocin Iv/ Dextrose Add-[place] 50ML) 54 ml @ 100 mls/hr Q8@0200,1000,1800 IV 03/05/16 18:00 03/12/16 17:59 03/09/16 09:30 100 MLS/HR Albuterol (Ventolin Hfa Inhaler) 2 puffs QID PRN INH 03/05/16 15:00 04/04/16 14:59 Aspirin (Aspirin Chew) 81 mg QAM PO 03/06/16 09:00 04/05/16 08:59 03/09/16 10:23 81 MG Atenolol (Tenormin Tab) 12.5 mg HS PO 03/05/16 21:00 04/04/16 20:59 03/08/16 20:02 12.5 MG Baclofen (Lioresal Tab) 20 mg TID PO 03/05/16 21:00 04/04/16 20:59 03/09/16 09:45 20 MG Celecoxib (CeleBREX CAP) 200 mg DAILY PO 03/06/16 09:00 04/05/16 08:59 03/09/16 09:43 200 MG Duloxetine HCl (Cymbalta Cap) 30 mg BID PO 03/05/16 21:00 04/04/16 20:59 03/09/16 09:44 30 MG Hydroxyzine HCl (Vistaril Tab) 25 mg Q6 PRN PO 03/05/16 15:00 04/04/16 14:59 Levothyroxine Sodium (Synthroid Tab) 100 mcg DAILYBB PO 03/06/16 06:00 04/05/16 05:59 03/09/16 06:10 100 MCG Montelukast Sodium (Singulair Tab) 10 mg HS PO 03/05/16 21:00 04/04/16 20:59 03/08/16 20:02 10 MG Pantoprazole Sodium (Protonix Tab) 40 mg DAILY@0630 PO 03/06/16 06:30 04/05/16 06:29 03/09/16 06:10 40 MG Pregabalin (Lyrica Cap) 200 mg TID PO 03/05/16 21:00 04/04/16 20:59 03/09/16 09:42 200 MG Simvastatin (Zocor Tab) 20 mg HS PO 03/05/16 21:00 04/04/16 20:59 03/08/16 20:03 20 MG Tiotropium [employer] (Spiriva Handihaler Inhaler) 1 puff QAM INH 03/06/16 09:00 04/05/16 08:59 03/09/16 09:41 1 PUFF Ursodiol (Actigall Cap) 600 mg BID@0900,1730 PO 03/05/16 17:30 04/04/16 17:29 03/09/16 09:44 600 MG Miscellaneous Information (Order Awaiting Action) 1 ea Q8 N/A 03/05/16 17:00 04/04/16 16:59 Lactobacillus Acidophilus (Floranex Tab) 1 tab QAM PO 03/06/16 09:00 04/05/16 08:59 03/09/16 09:44 1 TAB Miscellaneous Information (Consult Glycemic Management Pharmacy) 1 ea UD PRN N/A 03/05/16 15:17 04/04/16 15:16 Sumatriptan Succinate (Imitrex Tab) 50 mg Q2H PRN PO 03/06/16 06:15 04/05/16 06:14 03/06/16 08:03 50 MG Zolpidem Tartrate (Ambien Tab) 5 mg HS PRN PO 03/06/16 18:15 04/05/16 18:14 03/08/16 22:38 5 MG Imipenem/ Cilastatin Sodium 1 ea 1 ea UD PRN N/A 03/07/16 12:10 04/06/16 12:09 Imipenem/ Cilastatin Sodium/ Dextrose (Primaxin Iv/D5 100ml) 110 ml @ 110 mls/hr Q6H IV 03/07/16 14:00 03/14/16 13:59 03/09/16 09:39 110 MLS/HR Lorazepam (Ativan Tab) 1 mg DAILY PRN PO 03/07/16 13:30 04/06/16 13:29 03/09/16 02:46 1 MG Senna/Docusate Sodium (Senokot S Tab) 1 tab QAM PO 03/08/16 08:00 04/07/16 08:59 03/09/16 09:42 1 TAB Magnesium Hydroxide (Milk Of Magnesia Susp) 30 ml Q6H PRN PO 03/07/16 13:30 04/06/16 13:29 03/09/16 10:25 30 ML Insulin Human NPH (novoLIN-N NPH) 17 UNITS FOR BSG < 110 MG... BIDM SC 03/08/16 17:00 04/07/16 16:59 03/09/16 09:39 34 UNITS Objective Vital Signs Date Time Temp Pulse Resp B/P Pulse Ox O2 Delivery O2 Flow Rate FiO2 03/09/16 10:39 Nasal Cannula 4.0 Humidified Oxygen 03/09/16 08:00 Room Air 03/09/16 07:59 36.9 61 16 143/71 97 Nasal Cannula 4.0 Humidified Oxygen 03/09/16 00:00 CPAP 03/08/16 23:33 36.9 105 18 139/74 94 Room Air 03/08/16 22:51 81 93 4.0 03/08/16 20:00 Nasal Cannula 4.0 03/08/16 19:59 71 110/67 03/08/16 16:00 97 Nasal Cannula 4.0 03/08/16 14:58 36.8 73 20 145/66 96 Nasal Cannula 4.0 Physical Exam General Appearance: no apparent distress, + obese Eyes: normal inspection, sclerae normal ENT: hearing grossly normal Neck: supple, trachea midline Respiratory/Chest: chest non-tender, normal breath sounds, no respiratory distress, no accessory muscle use Cardiovascular: regular rate, rhythm Abdomen: normal bowel sounds, non tender Neurologic/Psychiatric: alert, normal mood/affect Skin: normal color, warm/dry, no rash Laboratory Results CHEST ONE VIEW PORTABLE CLINICAL HISTORY: Altered mental status COMPARISON STUDY: 03/05/2016 FINDINGS: The study is limited from a technical standpoint. The heart is mildly enlarged. There is mild central pulmonary vascular prominence, without evidence of overt failure. There is persistent but improving left lower lobe consolidation. A trace left pleural effusion cannot be excluded. There are persistent calcifications within the proximal right humerus, likely representing a bone infarct or chondroid lesion. IMPRESSION: 1. Persistent but improving left basilar airspace consolidation 2. Mild vascular prominence, without evidence of overt failure. Last 24 Hours Test 1/23/17 16:44 03/08/16 20:02 03/09/16 01:44 03/09/16 07:20 Bedside Glucose 253 mg/dl 242 mg/dl 157 mg/dl White Blood Count 8.66 K/uL Red Blood Count 4.80 M/uL Hemoglobin 12.4 g/dL Hematocrit 39.3 % Mean Corpuscular Volume 81.9 fL Mean Corpuscular Hemoglobin 25.8 pg Mean Corpuscular Hemoglobin Concent 31.6 g/dl Platelet Count 139 K/uL Mean Platelet Volume 11.7 fL Neutrophils (%) (Auto) 59.7 % Lymphocytes (%) (Auto) 26.3 % Monocytes (%) (Auto) 9.6 % Eosinophils (%) (Auto) 3.2 % Basophils (%) (Auto) 0.3 % Neutrophils # (Auto) 5.16 K/uL Lymphocytes # (Auto) 2.28 K/uL Monocytes # (Auto) 0.83 K/uL Eosinophils # (Auto) 0.28 K/uL Basophils # (Auto) 0.03 K/uL RDW Standard Deviation 49.6 fL RDW Coefficient of Variation 16.7 % Immature Granulocyte % (Auto) 0.9 % Immature Granulocyte # (Auto) 0.08 K/uL Sodium Level 143 mmol/L Potassium Level 3.5 mmol/L Chloride Level 99 mmol/L Carbon Dioxide Level 34 mmol/L Anion Gap 10.0 mmol/L Blood Urea Nitrogen 12 mg/dl Creatinine 0.53 mg/dl Est Creatinine Clear Calc Drug Dose 184.8 ml/min Estimated GFR () 114.7 Estimated GFR (Non- 98.9 BUN/Creatinine Ratio 23.2 Random Glucose 150 mg/dl Calcium Level 8.8 mg/dl Test 03/09/16 07:38 03/09/16 11:30 Bedside Glucose 161 mg/dl 246 mg/dl Assessment and Plan Patient with probable bibasilar pneumonia with altered mental status on admission along with Klebsiella oxytoca UTI. She continues on IV clindamycin and Primaxin. She is doing well on these antibiotics. She has had approximately 4 days of IV antibiotic therapy total. Feel that this patient should complete at least 5 days of IV antibiotic therapy due to pneumonia, altered mental status, and UTIs. She then may be transitioned to p.o. antibiotic therapy or discontinued pending further improvement. Likely this patient will be ready for discharge tomorrow. Plan: 1. Continue IV Clindamycin and Primaxin 2. Potential transition to p.o./consideration for discharge tomorrow PROVIDER ADDENDUM: Patient reviewed with Ms. Freeman. Agree with above assessment.
[2016-03-09 15:14] VITALS: BP 133/72; PULSE 73; TEMP 37; O2SAT 96
--- NOTE | 2016-03-09 15:53 | Progress Note ---
Medicine Progress Note Date & Time of Visit: Mar 09, 2016 at 15:37. Subjective patient seen in good spirits, oriented x 3 states she feels fine overall has occasional cough, nonproductive but no dyspnea no abdominal pain, nausea has mild pain on the lower thumb from IV access no other symptoms eager to be discharged home Objective Last 8 Hrs Date Time Temp Pulse Resp B/P Pulse Ox O2 Delivery O2 Flow Rate FiO2 03/09/16 15:14 37.0 73 18 133/72 96 4.0 03/09/16 10:39 Nasal Cannula 4.0 Humidified Oxygen 03/09/16 08:00 Room Air 03/09/16 07:59 36.9 61 16 143/71 97 Nasal Cannula 4.0 Humidified Oxygen Physical Exam: General- oriented x 3, not in distress, speaks in sentences with no effort Neck- no JVD Lungs- good air entry bilaterally, occasional mild rales at the bases, no wheeze Heart- regular rhythm; no murmur, normal rate Abdomen- normal bowel sounds, soft, nontender Extremities- trace pretibial edema, no calf tenderness left hand: mild erythema and edema of lower thumb region Neuro- alert, oriented x 3; no gross focal deficits Skin- warm & dry Laboratory Results: Last 24 Hours Test 03/08/16 16:44 03/08/16 20:02 03/09/16 01:44 03/09/16 07:20 Bedside Glucose 253 mg/dl 242 mg/dl 157 mg/dl White Blood Count 8.66 K/uL Red Blood Count 4.80 M/uL Hemoglobin 12.4 g/dL Hematocrit 39.3 % Mean Corpuscular Volume 81.9 fL Mean Corpuscular Hemoglobin 25.8 pg Mean Corpuscular Hemoglobin Concent 31.6 g/dl Platelet Count 139 K/uL Mean Platelet Volume 11.7 fL Neutrophils (%) (Auto) 59.7 % Lymphocytes (%) (Auto) 26.3 % Monocytes (%) (Auto) 9.6 % Eosinophils (%) (Auto) 3.2 % Basophils (%) (Auto) 0.3 % Neutrophils # (Auto) 5.16 K/uL Lymphocytes # (Auto) 2.28 K/uL Monocytes # (Auto) 0.83 K/uL Eosinophils # (Auto) 0.28 K/uL Basophils # (Auto) 0.03 K/uL RDW Standard Deviation 49.6 fL RDW Coefficient of Variation 16.7 % Immature Granulocyte % (Auto) 0.9 % Immature Granulocyte # (Auto) 0.08 K/uL Sodium Level 143 mmol/L Potassium Level 3.5 mmol/L Chloride Level 99 mmol/L Carbon Dioxide Level 34 mmol/L Anion Gap 10.0 mmol/L Blood Urea Nitrogen 12 mg/dl Creatinine 0.53 mg/dl Est Creatinine Clear Calc Drug Dose 184.8 ml/min Estimated GFR () 114.7 Estimated GFR (Non- 98.9 BUN/Creatinine Ratio 23.2 Random Glucose 150 mg/dl Calcium Level 8.8 mg/dl Test 03/09/16 07:38 03/09/16 11:30 Bedside Glucose 161 mg/dl 246 mg/dl Assessment & Plan ALTERED MENTAL STATUS Likely metabolic encephalopathy from infection- UTI, Pneumonia- CAP vs. aspiration - mental status back to baseline BIBASILAR PNEUMONIA KLEBSIELLA UTI Work up: - (+) MRSA swab - urine culture: Klebsiella, sensitive to Imipenem blood cultures: negative - Speech therapy evaluation placed - was initially on Cefepime- discontinued as patient developed rash on the face and arm with pruritus hence, Cefepime changed to Imipenem Clindamycin continued - remains afebrile, no leukocytosis mental status back to baseline - received 2 days of Cefepime, now on 3rd day of Imipenem 5th day of Clindamycin - ID on board, awaiting further recommendations on antibiotics ASTHMA Not wheezing on exam Xopenex nebs PRN Continue home inhalers, Singulair CHRONIC RESPIRATORY FAILURE Continue home oxygen OBESITY HYPOVENTILATION Continue BiPAP HS HYPERTENSION on Atenolol DM TYPE 2 Hold metformin Insulin sliding scale coverage HISTORY OF CVA With residual right sided weakness Continue aspirin and statin HYPOTHYROIDISM Continue levothyroxine WOUNDS ON LOW BACK AND BUTTOCK Consult wound care nurse:03/06/16: "UPON ASSESSMENT, BLANCHABLE REDNESS FOUND TO LOWER BACK FOLD, BUTTOCKS AND UPPER POSTERIOR THIGHS. 2 HEALED AREAS ON BL UPPER POSTERIOR THIGHS NOTED." - no issues per [facility] plans staff officer, continue daily care Heparin for DVT prophylaxis DISPOSITION Lives with ; has home health Follows with Dr. Romero for primary care anticipate d/c home when cleared by ID Current Inpatient Medications: Current Inpatient Medications Medications (Trade) Dose Ordered Sig/Keith Route Start Time Stop Time Status Last Admin Dose Admin Heparin Sodium (Porcine) (Heparin Sq 5000 Unit/0.5ml) 5,000 unit Q8 SQ 03/05/16 22:00 04/04/16 21:59 03/09/16 14:17 5,000 UNIT Acetaminophen (Tylenol Tab) 650 mg Q4H PRN PO 03/05/16 14:30 04/04/16 14:29 03/08/16 06:41 650 MG Ondansetron HCl (Zofran Inj) 4 mg Q6H PRN IV 03/05/16 14:30 04/04/16 14:29 03/07/16 11:36 4 MG Insulin Aspart (novoLOG ASPART) SLIDING SCALE If C... ACHS SC 03/05/16 16:00 04/04/16 15:59 03/09/16 12:23 16 UNITS Glucose (Glucose 40% Gel) 15-30 GRAMS 15 GRAMS... UD PRN PO 03/05/16 14:45 04/04/16 14:44 Glucose (Glucose Chew Tab) 4-8 Tablets 4 Tabl... UD PRN PO 03/05/16 14:45 04/04/16 14:44 Dextrose (Dextrose 50% 50ML Syringe) 25-50ML OF 50% DW IV FOR... UD PRN IV 03/05/16 14:45 04/04/16 14:44 Glucagon (Glucagon Inj) 1 mg UD PRN SQ 03/05/16 14:45 04/04/16 14:44 Levalbuterol 1.25 mg 1.25 mg Q4R PRN INH 03/05/16 14:45 04/04/16 14:44 Clindamycin Phosphate/Dextrose (Cleocin Iv/ Dextrose Add-[place] 50ML) 54 ml @ 100 mls/hr Q8@0200,1000,1800 IV 03/05/16 18:00 03/12/16 17:59 03/09/16 09:30 100 MLS/HR Albuterol (Ventolin Hfa Inhaler) 2 puffs QID PRN INH 03/05/16 15:00 04/04/16 14:59 Aspirin (Aspirin Chew) 81 mg QAM PO 03/06/16 09:00 04/05/16 08:59 03/09/16 10:23 81 MG Atenolol (Tenormin Tab) 12.5 mg HS PO 03/05/16 21:00 04/04/16 20:59 03/08/16 20:02 12.5 MG Baclofen (Lioresal Tab) 20 mg TID PO 03/05/16 21:00 04/04/16 20:59 03/09/16 14:11 20 MG Celecoxib (CeleBREX CAP) 200 mg DAILY PO 03/06/16 09:00 04/05/16 08:59 03/09/16 09:43 200 MG Duloxetine HCl (Cymbalta Cap) 30 mg BID PO 03/05/16 21:00 04/04/16 20:59 03/09/16 09:44 30 MG Hydroxyzine HCl (Vistaril Tab) 25 mg Q6 PRN PO 03/05/16 15:00 04/04/16 14:59 Levothyroxine Sodium (Synthroid Tab) 100 mcg DAILYBB PO 03/06/16 06:00 04/05/16 05:59 03/09/16 06:10 100 MCG Montelukast Sodium (Singulair Tab) 10 mg HS PO 03/05/16 21:00 04/04/16 20:59 03/08/16 20:02 10 MG Pantoprazole Sodium (Protonix Tab) 40 mg DAILY@0630 PO 03/06/16 06:30 04/05/16 06:29 03/09/16 06:10 40 MG Pregabalin (Lyrica Cap) 200 mg TID PO 03/05/16 21:00 04/04/16 20:59 03/09/16 14:10 200 MG Simvastatin (Zocor Tab) 20 mg HS PO 03/05/16 21:00 04/04/16 20:59 03/08/16 20:03 20 MG Tiotropium [place] (Spiriva Handihaler Inhaler) 1 puff QAM INH 03/06/16 09:00 04/05/16 08:59 03/09/16 09:41 1 PUFF Ursodiol (Actigall Cap) 600 mg BID@0900,1730 PO 03/05/16 17:30 04/04/16 17:29 03/09/16 09:44 600 MG Miscellaneous Information (Order Awaiting Action) 1 ea Q8 N/A 03/05/16 17:00 04/04/16 16:59 Lactobacillus Acidophilus (Floranex Tab) 1 tab QAM PO 03/06/16 09:00 04/05/16 08:59 03/09/16 09:44 1 TAB Miscellaneous Information (Consult Glycemic Management Pharmacy) 1 ea UD PRN N/A 03/05/16 15:17 04/04/16 15:16 Sumatriptan Succinate (Imitrex Tab) 50 mg Q2H PRN PO 03/06/16 06:15 04/05/16 06:14 03/06/16 08:03 50 MG Zolpidem Tartrate (Ambien Tab) 5 mg HS PRN PO 03/06/16 18:15 04/05/16 18:14 03/08/16 22:38 5 MG Imipenem/ Cilastatin Sodium 1 ea 1 ea UD PRN N/A 03/07/16 12:10 04/06/16 12:09 Imipenem/ Cilastatin Sodium/ Dextrose (Primaxin Iv/D5 100ml) 110 ml @ 110 mls/hr Q6H IV 03/07/16 14:00 03/14/16 13:59 03/09/16 14:14 110 MLS/HR Lorazepam (Ativan Tab) 1 mg DAILY PRN PO 03/07/16 13:30 04/06/16 13:29 03/09/16 02:46 1 MG Senna/Docusate Sodium (Senokot S Tab) 1 tab QAM PO 03/08/16 08:00 04/07/16 08:59 03/09/16 09:42 1 TAB Magnesium Hydroxide (Milk Of Magnesia Susp) 30 ml Q6H PRN PO 03/07/16 13:30 04/06/16 13:29 03/09/16 10:25 30 ML Insulin Human NPH (novoLIN-N NPH) 17 UNITS FOR BSG < 110 MG... BIDM SC 03/08/16 17:00 04/07/16 16:59 03/09/16 09:39 34 UNITS
[2016-03-09] MEDS: SIMVASTATIN 20 MG TAB PO SCH (19:32)
[2016-03-09] MEDS: MONTELUKAST SOD 10 MG TAB PO SCH (19:32)
[2016-03-09 19:36] VITALS: BP 106/76; PULSE 78
[2016-03-09 21:53] VITALS: PULSE 78; O2SAT 97
[2016-03-09] MEDS: ZOLPIDEM TARTRATE 5 MG TAB PO PRN (21:53)
[2016-03-10 00:07] VITALS: BP 145/80; PULSE 72; TEMP 36.6; O2SAT 97
[2016-03-10] MEDS: CLINDAMYCIN IV 600 MG in DEXTROSE 5% ADD-VANTAGE 50ML 50 ML IV SCH ×3 (01:44→17:50)
[2016-03-10] MEDS: IMIPENEM/CILASTATIN IV 500 MG in D5W 100ML IV SCH ×4 (01:44→19:39)
[2016-03-10] MEDS: PANTOprazole SOD 40 MG TAB PO SCH (06:03)
[2016-03-10] MEDS: LEVOTHYROXINE 100 MCG TAB PO SCH (06:03)
[2016-03-10] MEDS: HEPARIN SOD 5000 UNIT/0.5 ML CARP SQ SCH ×3 (06:05→20:40)
[2016-03-10 06:58] VITALS: BP 115/62; PULSE 64; TEMP 36.8; O2SAT 95
[2016-03-10] MEDS: INSULIN ASPART 100 UNITS/ML 3 ML PEN SC SCH ×4 (09:21→20:39)
[2016-03-10] MEDS: TIOTROPIUM BROMIDE 5 PUFF/90 MCG INH INH SCH (09:21)
[2016-03-10] MEDS: ASPIRIN 81 MG CHEW PO SCH (09:24)
[2016-03-10] MEDS: DULOXETINE (CYMBALTA) 30 MG CAP PO SCH ×2 (09:24→19:39)
[2016-03-10] MEDS: CeleBREX 200 MG CAP PO SCH (09:24)
[2016-03-10] MEDS: BACLOFEN TAB 20 MG TAB PO SCH ×3 (09:25→19:39)
[2016-03-10] MEDS: LACTOBACILLUS ACIDOPHILUS (FLORANEX) TAB PO SCH (09:25)
[2016-03-10] MEDS: PREGABALIN 100 MG CAP PO SCH ×3 (09:26→19:40)
[2016-03-10] MEDS: DOCUSATE SODIUM/SENNA 50/8.6MG TAB PO SCH (09:26)
[2016-03-10] MEDS: INSULIN HUMAN NPH SC SCH ×2 (09:30→17:46)
[2016-03-10] MEDS: URSODIOL 300 MG CAP PO SCH ×2 (09:30→17:50)
--- NOTE | 2016-03-10 12:06 | Pharmacy Progress Note ---
Glycemic Control: Progress Nt Date of Service Mar 10, 2016. Scope Glycemic Pharmacist consulted by Dipti Smith on 03/05 for glycemic control and to write orders per [facility] inpatient glycemic control protocol. Objective Accuchecks BSG (last 24hrs): Test 03/09/16 16:34 03/09/16 19:55 03/10/16 07:44 03/10/16 11:43 Bedside Glucose 234 mg/dl (70-90) 269 mg/dl (70-90) 153 mg/dl (70-90) 196 mg/dl (70-90) Recent Pertinent Medications Outpatient Anti-diabetic Regimen: * NPH 72 units TID with meals per sliding scale * Metformin ER 1000mg PO daily * A1c: 6.5% 01/2016 The patient is currently receiving: * Basal insulin: NPH 34 units SC BIDM - 02/15 for BSG < 110 mg/dL * Correctional Insulin: NovoLog Correction per scale ACHS Goal Range: Low 110 mg/dL - High 140 mg/dL Correction Factor: 15 mg/dL/unit * Prandial insulin: Per carb ratio of 1 unit per 5 grams CHO consumed * Oral Agents: none at this time Risk Factors for Insulin Resistance: * Infection: PNA and UTI - on imipenem and clindamycin * Diet: T2DM Assessment & Plan ASSESSMENT: * ADA & AACE recommend a goal blood sugar range 140-180 mg/dl for the majority of critically ill & non-critically ill patients. However, more stringent targets may be selected in individual cases. 03/08/16 * 65 yo F with AMS / confusion, improving. * BSG's ranging 172-262 mg/dL over the last 24 hours. Patient required additional insulin x2 overnight. * AM fasting BSG's persistently elevated - will increase basal/NPH by ~10%. * OK to decrease overnight checks to just one tonight as increase in NPH will hopefully help manage overnight hyperglycemia (and patient only received 4 units total overnight last night and none the night before) * Will decrease goal range which will also provide 1-2 extra units of insulin at each BSG check that is greater than 180 mg/dL 03/10/16 * AM fasting BSG's improving with increase of NPH to 34 units SC BIDM * Post-prandial BSG's persistently elevated, ranging 234-269 mg/dL yesterday - will tighten carb ratio slightly PLAN FOR INPATIENT GLYCEMIC CONTROL: * Continue to hold outpatient oral diabetes medications * Continue basal insulin with NPH 34 units SQ BID - 1/2 dose for BSG < 110 mg/dL * Correctional Insulin with NOVOLOG per scale ACHS or Q6hrs while NPO * Goal Range: Low 110 mg/dL - High 140 mg/dL * Correction Factor: 15 mg/dL/unit * Tighten Nutritional / Prandial insulin per carb ratio of 1 unit per 4 grams CHO consumed * Please note that the plan above was derived based on current level of insulin resistance and hospital stress. These recommendations are appropriate for inpatient admission only. Plan of care upon discharge will need to be reassessed to avoid potential outpatient hypo/hyperglycemia. Thank you.
--- NOTE | 2016-03-10 15:47 | Infectious Disease Progress Nt ---
Progress Note Date of Service Mar 10, 2016. Subjective Pt evaluation today including: conversation w/ patient, conversation w/ family (), physical exam, chart review, lab review, review of studies, review of inpatient medication list No new lab work today other than glucose this morning of 196. Blood cultures continue to show no growth today. Patient continues on IV imipenem and clindamycin. Patient is feeling well today but states that she did have a coughing "fit" last night during which time she coughed up some mucus. She has had no further coughing episodes today. She continue to tolerate current antibiotics well. Discussed options with the patient. All Other Systems: Reviewed and Negative Medications Current Inpatient Medications Medications (Trade) Dose Ordered Sig/Keith Route Start Time Stop Time Status Last Admin Dose Admin Heparin Sodium (Porcine) (Heparin Sq 5000 Unit/0.5ml) 5,000 unit Q8 SQ 03/05/16 22:00 04/04/16 21:59 03/10/16 06:05 5,000 UNIT Acetaminophen (Tylenol Tab) 650 mg Q4H PRN PO 03/05/16 14:30 04/04/16 14:29 03/08/16 06:41 650 MG Ondansetron HCl (Zofran Inj) 4 mg Q6H PRN IV 03/05/16 14:30 04/04/16 14:29 03/07/16 11:36 4 MG Insulin Aspart (novoLOG ASPART) SLIDING SCALE If C... ACHS SC 03/05/16 16:00 04/04/16 15:59 03/10/16 12:42 15 UNITS Glucose (Glucose 40% Gel) 15-30 GRAMS 15 GRAMS... UD PRN PO 03/05/16 14:45 04/04/16 14:44 Glucose (Glucose Chew Tab) 4-8 Tablets 4 Tabl... UD PRN PO 03/05/16 14:45 04/04/16 14:44 Dextrose (Dextrose 50% 50ML Syringe) 25-50ML OF 50% DW IV FOR... UD PRN IV 03/05/16 14:45 04/04/16 14:44 Glucagon (Glucagon Inj) 1 mg UD PRN SQ 03/05/16 14:45 04/04/16 14:44 Levalbuterol 1.25 mg 1.25 mg Q4R PRN INH 03/05/16 14:45 04/04/16 14:44 Clindamycin Phosphate/Dextrose (Cleocin Iv/ Dextrose Add-[place] 50ML) 54 ml @ 100 mls/hr Q8@0200,1000,1800 IV 03/05/16 18:00 03/12/16 17:59 03/10/16 10:57 100 MLS/HR Albuterol (Ventolin Hfa Inhaler) 2 puffs QID PRN INH 03/05/16 15:00 04/04/16 14:59 Aspirin (Aspirin Chew) 81 mg QAM PO 03/06/16 09:00 04/05/16 08:59 03/10/16 09:24 81 MG Atenolol (Tenormin Tab) 12.5 mg HS PO 03/05/16 21:00 04/04/16 20:59 03/09/16 19:35 12.5 MG Baclofen (Lioresal Tab) 20 mg TID PO 03/05/16 21:00 04/04/16 20:59 03/10/16 09:25 20 MG Celecoxib (CeleBREX CAP) 200 mg DAILY PO 03/06/16 09:00 04/05/16 08:59 03/10/16 09:24 200 MG Duloxetine HCl (Cymbalta Cap) 30 mg BID PO 03/05/16 21:00 04/04/16 20:59 03/10/16 09:24 30 MG Hydroxyzine HCl (Vistaril Tab) 25 mg Q6 PRN PO 03/05/16 15:00 04/04/16 14:59 Levothyroxine Sodium (Synthroid Tab) 100 mcg DAILYBB PO 03/06/16 06:00 04/05/16 05:59 03/10/16 06:03 100 MCG Montelukast Sodium (Singulair Tab) 10 mg HS PO 03/05/16 21:00 04/04/16 20:59 03/09/16 19:32 10 MG Pantoprazole Sodium (Protonix Tab) 40 mg DAILY@0630 PO 03/06/16 06:30 04/05/16 06:29 03/10/16 06:03 40 MG Pregabalin (Lyrica Cap) 200 mg TID PO 03/05/16 21:00 04/04/16 20:59 03/10/16 09:26 200 MG Simvastatin (Zocor Tab) 20 mg HS PO 03/05/16 21:00 04/04/16 20:59 03/09/16 19:32 20 MG Tiotropium [place] (Spiriva Handihaler Inhaler) 1 puff QAM INH 03/06/16 09:00 04/05/16 08:59 03/10/16 09:21 1 PUFF Ursodiol (Actigall Cap) 600 mg BID@0900,1730 PO 03/05/16 17:30 04/04/16 17:29 03/10/16 09:30 600 MG Miscellaneous Information (Order Awaiting Action) 1 ea Q8 N/A 03/05/16 17:00 04/04/16 16:59 Lactobacillus Acidophilus (Floranex Tab) 1 tab QAM PO 03/06/16 09:00 04/05/16 08:59 03/10/16 09:25 1 TAB Miscellaneous Information (Consult Glycemic Management Pharmacy) 1 ea UD PRN N/A 03/05/16 15:17 04/04/16 15:16 Sumatriptan Succinate (Imitrex Tab) 50 mg Q2H PRN PO 03/06/16 06:15 04/05/16 06:14 03/06/16 08:03 50 MG Zolpidem Tartrate (Ambien Tab) 5 mg HS PRN PO 03/06/16 18:15 04/05/16 18:14 03/09/16 21:53 5 MG Imipenem/ Cilastatin Sodium 1 ea 1 ea UD PRN N/A 03/07/16 12:10 04/06/16 12:09 Imipenem/ Cilastatin Sodium/ Dextrose (Primaxin Iv/D5 100ml) 110 ml @ 110 mls/hr Q6H IV 03/07/16 14:00 03/14/16 13:59 03/10/16 09:22 110 MLS/HR Lorazepam (Ativan Tab) 1 mg DAILY PRN PO 03/07/16 13:30 04/06/16 13:29 03/09/16 02:46 1 MG Senna/Docusate Sodium (Senokot S Tab) 1 tab QAM PO 03/08/16 08:00 04/07/16 08:59 03/10/16 09:26 1 TAB Magnesium Hydroxide (Milk Of Magnesia Susp) 30 ml Q6H PRN PO 03/07/16 13:30 04/06/16 13:29 03/09/16 10:25 30 ML Insulin Human NPH (novoLIN-N NPH) 17 UNITS FOR BSG < 110 MG... BIDM SC 03/08/16 17:00 04/07/16 16:59 03/10/16 09:30 34 UNITS Objective Vital Signs Date Time Temp Pulse Resp B/P Pulse Ox O2 Delivery O2 Flow Rate FiO2 03/10/16 08:10 Nasal Cannula 4.0 03/10/16 06:58 36.8 64 18 115/62 95 4.0 03/10/16 00:07 36.6 72 18 145/80 97 BiPAP 03/10/16 00:00 CPAP 03/09/16 21:53 78 97 4.0 03/09/16 20:00 Nasal Cannula 4.0 Humidified Oxygen 03/09/16 19:36 78 106/76 03/09/16 15:14 37.0 73 18 133/72 96 4.0 Physical Exam General Appearance: no apparent distress, + obese Eyes: normal inspection, sclerae normal ENT: hearing grossly normal Neck: supple, trachea midline Respiratory/Chest: chest non-tender, no respiratory distress, no accessory muscle use, + decreased breath sounds Cardiovascular: regular rate, rhythm Abdomen: normal bowel sounds, non tender, soft Neurologic/Psychiatric: alert, normal mood/affect Skin: normal color, warm/dry, no rash Laboratory Results Item Value Date Time MRSA DNA Surveillance Screen - Final Complete 03/05/16 1700 Nasal Specimen Positive for MRSA by DNA Probe Blood Culture - Preliminary Resulted 03/05/16 1150 Blood NO GROWTH TO DATE. Blood Culture - Preliminary Resulted 03/05/16 1140 Blood NO GROWTH TO DATE. Urine Culture - Final Complete 03/05/16 1138 Urine,Catheterized Klebsiella Oxytoca Last 24 Hours Test 03/09/16 16:34 03/09/16 19:55 03/10/16 07:44 03/10/16 11:43 Bedside Glucose 234 mg/dl 269 mg/dl 153 mg/dl 196 mg/dl Assessment and Plan Patient with probable bibasilar pneumonia with altered mental status on admission along with Klebsiella oxytoca UTI. She continues on IV clindamycin and Primaxin. She is doing well on these antibiotics. She has had approximately 5 days of IV antibiotic therapy. Recommend continuing IV antibiotics over night. If she continues to improve, would consider transition to PO Clindamycin alone for some continued lung penetration to complete 10 days total. We will follow. Plan: 1. Continue IV Clindamycin and Primaxin 2. Potential transition to p.o. tomorrow morning. PROVIDER ADDENDUM: Patient reviewed with Ms. Freeman. Agree with above assessment.
[2016-03-10 15:50] VITALS: BP 112/67; PULSE 64; TEMP 36.8; O2SAT 96
[2016-03-10] MEDS: MONTELUKAST SOD 10 MG TAB PO SCH (19:39)
[2016-03-10] MEDS: SIMVASTATIN 20 MG TAB PO SCH (19:39)
[2016-03-10 19:40] VITALS: BP 101/68; PULSE 73
[2016-03-10] MEDS: ZOLPIDEM TARTRATE 5 MG TAB PO PRN (22:05)
[2016-03-10 22:21] VITALS: PULSE 68; O2SAT 94
--- NOTE | 2016-03-10 23:28 | Progress Note ---
Medicine Progress Note Date & Time of Visit: Mar 10, 2016 at 15:56. Subjective Doing well No confusion Some coughing overnight but this improved when mucus plug came out No shortness of breath Denies dysuria or other UTI symptoms Tolerating PO Bedbound at baseline and HH cares for her at home Per ID plan to do additional night of IV meds and change to PO in am. Objective Last 8 Hrs Date Time Temp Pulse Resp B/P Pulse Ox O2 Delivery O2 Flow Rate FiO2 03/10/16 15:50 36.8 64 20 112/67 96 Nasal Cannula 4.0 03/10/16 08:10 Nasal Cannula 4.0 Physical Exam: GEN: Obese, in no acute distress, alert and appropriate HEENT: NC/AT, normal sclerae CARDIO: reg rate, S1/2 heard without m/g/r LUNGS: CTA bilaterally, no crackles, rales or wheezes, good diaphragmatic excursion ABD: soft, non-tender, non-distended, no rebound or guarding, +BS EXTREMITY: RP and DP palpable 2+ bilat, no LE swelling or edema, extremities are warm and well-perfused NEURO: CN 2-12 grossly intact, no gross focal deficits MUSC: moves all extremities equally, bedbound SKIN: warm and dry, nurse denies skin breakdown Laboratory Results: Last 24 Hours Test 03/09/16 16:34 03/09/16 19:55 03/10/16 07:44 03/10/16 11:43 Bedside Glucose 234 mg/dl 269 mg/dl 153 mg/dl 196 mg/dl Assessment & Plan 1. Encephalopathy 2/2 UTI and bilateral pneumonia-resolved 2. HCAP-cont IV abx per ID 3. Klebsiella UTI- cont IV abx per ID 4. MRSA colonization 5. Drug rash to cefepime-resolved, added to allergy profile 6. Asthma-stable, no wheezing on exam, Xopenex nebs PRN, cont home inhalers, cont Singulair 7. CHRONIC RESPIRATORY FAILURE: Continue home oxygen 8. OBESITY HYPOVENTILATION: Continue BiPAP HS 9. HYPERTENSION: controlled, cont Atenolol 10. DM TYPE 2: Hold metformin; Insulin sliding scale coverage 11. HISTORY OF CVA: With residual right sided weakness; Continue aspirin and statin 12. HYPOTHYROIDISM: Continue levothyroxine 13. WOUNDS ON LOW BACK AND BUTTOCK: Consult wound care nurse:03/06/16: "UPON ASSESSMENT, BLANCHABLE REDNESS FOUND TO LOWER BACK FOLD, BUTTOCKS AND UPPER POSTERIOR THIGHS. 2 HEALED AREAS ON BL UPPER POSTERIOR THIGHS NOTED." - no issues per staff physical therapist, continue daily care Heparin for DVT prophylaxis DISPOSITION Lives with ; has home health Follows with Dr. Romero for primary care anticipate d/c home when cleared by ID, likely in am. Consultants: ID Current Inpatient Medications: Current Inpatient Medications Medications (Trade) Dose Ordered Sig/Keith Route Start Time Stop Time Status Last Admin Dose Admin Heparin Sodium (Porcine) (Heparin Sq 5000 Unit/0.5ml) 5,000 unit Q8 SQ 03/05/16 22:00 04/04/16 21:59 03/10/16 14:56 5,000 UNIT Acetaminophen (Tylenol Tab) 650 mg Q4H PRN PO 03/05/16 14:30 04/04/16 14:29 03/08/16 06:41 650 MG Ondansetron HCl (Zofran Inj) 4 mg Q6H PRN IV 03/05/16 14:30 04/04/16 14:29 03/07/16 11:36 4 MG Insulin Aspart (novoLOG ASPART) SLIDING SCALE If C... ACHS SC 03/05/16 16:00 04/04/16 15:59 03/10/16 12:42 15 UNITS Glucose (Glucose 40% Gel) 15-30 GRAMS 15 GRAMS... UD PRN PO 03/05/16 14:45 04/04/16 14:44 Glucose (Glucose Chew Tab) 4-8 Tablets 4 Tabl... UD PRN PO 03/05/16 14:45 04/04/16 14:44 Dextrose (Dextrose 50% 50ML Syringe) 25-50ML OF 50% DW IV FOR... UD PRN IV 03/05/16 14:45 04/04/16 14:44 Glucagon (Glucagon Inj) 1 mg UD PRN SQ 03/05/16 14:45 04/04/16 14:44 Levalbuterol 1.25 mg 1.25 mg Q4R PRN INH 03/05/16 14:45 04/04/16 14:44 Clindamycin Phosphate/Dextrose (Cleocin Iv/ Dextrose Add-[place] 50ML) 54 ml @ 100 mls/hr Q8@0200,1000,1800 IV 03/05/16 18:00 03/12/16 17:59 03/10/16 10:57 100 MLS/HR Albuterol (Ventolin Hfa Inhaler) 2 puffs QID PRN INH 03/05/16 15:00 04/04/16 14:59 Aspirin (Aspirin Chew) 81 mg QAM PO 03/06/16 09:00 04/05/16 08:59 03/10/16 09:24 81 MG Atenolol (Tenormin Tab) 12.5 mg HS PO 03/05/16 21:00 04/04/16 20:59 03/09/16 19:35 12.5 MG Baclofen (Lioresal Tab) 20 mg TID PO 03/05/16 21:00 04/04/16 20:59 03/10/16 14:53 20 MG Celecoxib (CeleBREX CAP) 200 mg DAILY PO 03/06/16 09:00 04/05/16 08:59 03/10/16 09:24 200 MG Duloxetine HCl (Cymbalta Cap) 30 mg BID PO 03/05/16 21:00 04/04/16 20:59 03/10/16 09:24 30 MG Hydroxyzine HCl (Vistaril Tab) 25 mg Q6 PRN PO 03/05/16 15:00 04/04/16 14:59 Levothyroxine Sodium (Synthroid Tab) 100 mcg DAILYBB PO 03/06/16 06:00 04/05/16 05:59 03/10/16 06:03 100 MCG Montelukast Sodium (Singulair Tab) 10 mg HS PO 03/05/16 21:00 04/04/16 20:59 03/09/16 19:32 10 MG Pantoprazole Sodium (Protonix Tab) 40 mg DAILY@0630 PO 03/06/16 06:30 04/05/16 06:29 03/10/16 06:03 40 MG Pregabalin (Lyrica Cap) 200 mg TID PO 03/05/16 21:00 04/04/16 20:59 03/10/16 14:54 200 MG Simvastatin (Zocor Tab) 20 mg HS PO 03/05/16 21:00 04/04/16 20:59 03/09/16 19:32 20 MG Tiotropium [place] (Spiriva Handihaler Inhaler) 1 puff QAM INH 03/06/16 09:00 04/05/16 08:59 03/10/16 09:21 1 PUFF Ursodiol (Actigall Cap) 600 mg BID@0900,1730 PO 03/05/16 17:30 04/04/16 17:29 03/10/16 09:30 600 MG Miscellaneous Information (Order Awaiting Action) 1 ea Q8 N/A 03/05/16 17:00 04/04/16 16:59 Lactobacillus Acidophilus (Floranex Tab) 1 tab QAM PO 03/06/16 09:00 04/05/16 08:59 03/10/16 09:25 1 TAB Miscellaneous Information (Consult Glycemic Management Pharmacy) 1 ea UD PRN N/A 03/05/16 15:17 04/04/16 15:16 Sumatriptan Succinate (Imitrex Tab) 50 mg Q2H PRN PO 03/06/16 06:15 04/05/16 06:14 03/06/16 08:03 50 MG Zolpidem Tartrate (Ambien Tab) 5 mg HS PRN PO 03/06/16 18:15 04/05/16 18:14 03/09/16 21:53 5 MG Imipenem/ Cilastatin Sodium 1 ea 1 ea UD PRN N/A 03/07/16 12:10 04/06/16 12:09 Imipenem/ Cilastatin Sodium/ Dextrose (Primaxin Iv/D5 100ml) 110 ml @ 110 mls/hr Q6H IV 03/07/16 14:00 03/14/16 13:59 03/10/16 14:53 110 MLS/HR Lorazepam (Ativan Tab) 1 mg DAILY PRN PO 03/07/16 13:30 04/06/16 13:29 03/09/16 02:46 1 MG Senna/Docusate Sodium (Senokot S Tab) 1 tab QAM PO 03/08/16 08:00 04/07/16 08:59 03/10/16 09:26 1 TAB Magnesium Hydroxide (Milk Of Magnesia Susp) 30 ml Q6H PRN PO 03/07/16 13:30 04/06/16 13:29 03/09/16 10:25 30 ML Insulin Human NPH (novoLIN-N NPH) 17 UNITS FOR BSG < 110 MG... BIDM SC 03/08/16 17:00 04/07/16 16:59 03/10/16 09:30 34 UNITS
[2016-03-11 00:16] VITALS: BP 122/68; PULSE 62; TEMP 37; O2SAT 95
[2016-03-11] MEDS: CLINDAMYCIN IV 600 MG in DEXTROSE 5% ADD-VANTAGE 50ML 50 ML IV SCH ×2 (01:51→09:55)
[2016-03-11] MEDS: IMIPENEM/CILASTATIN IV 500 MG in D5W 100ML IV SCH ×2 (01:51→07:56)
[2016-03-11] MEDS: LEVOTHYROXINE 100 MCG TAB PO SCH (06:14)
[2016-03-11] MEDS: PANTOprazole SOD 40 MG TAB PO SCH (06:14)
[2016-03-11] MEDS: HEPARIN SOD 5000 UNIT/0.5 ML CARP SQ SCH ×2 (06:15→14:46)
[2016-03-11 07:42] VITALS: BP 112/67; PULSE 61; TEMP 36.9; O2SAT 97
[2016-03-11] MEDS: LACTOBACILLUS ACIDOPHILUS (FLORANEX) TAB PO SCH (07:54)
[2016-03-11] MEDS: CeleBREX 200 MG CAP PO SCH (07:54)
[2016-03-11] MEDS: DULOXETINE (CYMBALTA) 30 MG CAP PO SCH (07:54)
[2016-03-11] MEDS: PREGABALIN 100 MG CAP PO SCH ×2 (07:54→14:47)
[2016-03-11] MEDS: BACLOFEN TAB 20 MG TAB PO SCH ×2 (07:54→14:47)
[2016-03-11] MEDS: DOCUSATE SODIUM/SENNA 50/8.6MG TAB PO SCH (07:54)
[2016-03-11] MEDS: TIOTROPIUM BROMIDE 5 PUFF/90 MCG INH INH SCH (08:00)
[2016-03-11 08:01] LABS: HEMATOCRIT 38.7 % (37-47); MEAN CORPUSCULAR HEMOGLOBIN 25.8 pg (25-34); MEAN CORPUSCULAR HGB CONC 31.5 g/dl (32-36); MEAN PLATELET VOLUME 11.5 fL (7.4-10.4); PLATELET COUNT 137 K/uL (130-400); RED BLOOD COUNT 4.72 M/uL (4.2-5.4); WHITE BLOOD COUNT 9.19 K/uL (4.8-10.8)
[2016-03-11 08:38] LABS: BUN/CREATININE RATIO 18.7 (10-20); CALCIUM 8.7 mg/dl (8.5-10.1); CREATININE 0.53 mg/dl (0.60-1.20); POTASSIUM 4.3 mmol/L (3.5-5.1)
[2016-03-11] MEDS: ASPIRIN 81 MG CHEW PO SCH (08:50)
[2016-03-11] MEDS: INSULIN HUMAN NPH SC SCH (09:50)
[2016-03-11] MEDS: URSODIOL 300 MG CAP PO SCH (09:55)
[2016-03-11] MEDS: INSULIN ASPART 100 UNITS/ML 3 ML PEN SC SCH ×2 (10:03→12:57)
--- NOTE | 2016-03-11 11:19 | Pharmacy Progress Note ---
Glycemic: Assessment & Plan Date of Service Mar 11, 2016. Assessment & Plan Assessment * BSG's persistently elevated despite tightening carb ratio yesterday * AM fasting BSG also elevated despite correctional insulin being administered last night * Will tighten correction factor to address persistent hyperglycemia (including AM fasting)\ Plan * Basal insulin: NPH 34 units SC BIDM * Correctional Insulin: Novolog Correction per scale ACHS Goal Range: Low 110 mg/dL - High 140 mg/dL Tighten Correction Factor: 10 mg/dL/unit * Prandial insulin: Per carb ratio of 1 unit per 4 grams CHO consumed Pharmacy will continue to monitor patient daily and write orders per [facility] inpatient glycemic control protocol. Thanks. * Please note that the plan above was derived based on current level of insulin resistance and hospital stress. These recommendations are appropriate for inpatient admission only. Plan of care upon discharge will need to be reassessed to avoid potential outpatient hypo/hyperglycemia.
--- NOTE | 2016-03-11 11:34 | Infectious Disease Progress Nt ---
Progress Note Date of Service Mar 11, 2016. Subjective Pt evaluation today including: conversation w/ patient, physical exam, chart review, lab review, review of studies, review of inpatient medication list Patient's creatinine this morning was 0.53. WBC count was 9.19. No new micro. No new imaging. She is feeling well this morning. No continued sputum over night. No cough this morning. No urinary symptoms or N/V/D. All Other Systems: Reviewed and Negative Medications Current Inpatient Medications Medications (Trade) Dose Ordered Sig/Keith Route Start Time Stop Time Status Last Admin Dose Admin Heparin Sodium (Porcine) (Heparin Sq 5000 Unit/0.5ml) 5,000 unit Q8 SQ 03/05/16 22:00 04/04/16 21:59 03/11/16 06:15 5,000 UNIT Acetaminophen (Tylenol Tab) 650 mg Q4H PRN PO 03/05/16 14:30 04/04/16 14:29 03/08/16 06:41 650 MG Ondansetron HCl (Zofran Inj) 4 mg Q6H PRN IV 03/05/16 14:30 04/04/16 14:29 03/07/16 11:36 4 MG Insulin Aspart (novoLOG ASPART) SLIDING SCALE If C... ACHS SC 03/05/16 16:00 04/04/16 15:59 03/11/16 10:03 22 UNITS Glucose (Glucose 40% Gel) 15-30 GRAMS 15 GRAMS... UD PRN PO 03/05/16 14:45 04/04/16 14:44 Glucose (Glucose Chew Tab) 4-8 Tablets 4 Tabl... UD PRN PO 03/05/16 14:45 04/04/16 14:44 Dextrose (Dextrose 50% 50ML Syringe) 25-50ML OF 50% DW IV FOR... UD PRN IV 03/05/16 14:45 04/04/16 14:44 Glucagon (Glucagon Inj) 1 mg UD PRN SQ 03/05/16 14:45 04/04/16 14:44 Levalbuterol 1.25 mg 1.25 mg Q4R PRN INH 03/05/16 14:45 04/04/16 14:44 Clindamycin Phosphate/Dextrose (Cleocin Iv/ Dextrose Add-[place] 50ML) 54 ml @ 100 mls/hr Q8@0200,1000,1800 IV 03/05/16 18:00 03/12/16 17:59 03/11/16 09:55 100 MLS/HR Albuterol (Ventolin Hfa Inhaler) 2 puffs QID PRN INH 03/05/16 15:00 04/04/16 14:59 Aspirin (Aspirin Chew) 81 mg QAM PO 03/06/16 09:00 04/05/16 08:59 03/11/16 08:50 81 MG Atenolol (Tenormin Tab) 12.5 mg HS PO 03/05/16 21:00 04/04/16 20:59 03/10/16 19:39 12.5 MG Baclofen (Lioresal Tab) 20 mg TID PO 03/05/16 21:00 04/04/16 20:59 03/11/16 07:54 20 MG Celecoxib (CeleBREX CAP) 200 mg DAILY PO 03/06/16 09:00 04/05/16 08:59 03/11/16 07:54 200 MG Duloxetine HCl (Cymbalta Cap) 30 mg BID PO 03/05/16 21:00 04/04/16 20:59 03/11/16 07:54 30 MG Hydroxyzine HCl (Vistaril Tab) 25 mg Q6 PRN PO 03/05/16 15:00 04/04/16 14:59 Levothyroxine Sodium (Synthroid Tab) 100 mcg DAILYBB PO 03/06/16 06:00 04/05/16 05:59 03/11/16 06:14 100 MCG Montelukast Sodium (Singulair Tab) 10 mg HS PO 03/05/16 21:00 04/04/16 20:59 03/10/16 19:39 10 MG Pantoprazole Sodium (Protonix Tab) 40 mg DAILY@0630 PO 03/06/16 06:30 04/05/16 06:29 03/11/16 06:14 40 MG Pregabalin (Lyrica Cap) 200 mg TID PO 03/05/16 21:00 04/04/16 20:59 03/11/16 07:54 200 MG Simvastatin (Zocor Tab) 20 mg HS PO 03/05/16 21:00 04/04/16 20:59 03/10/16 19:39 20 MG Tiotropium [place] (Spiriva Handihaler Inhaler) 1 puff QAM INH 03/06/16 09:00 04/05/16 08:59 03/11/16 08:00 1 PUFF Ursodiol (Actigall Cap) 600 mg BID@0900,1730 PO 03/05/16 17:30 04/04/16 17:29 03/11/16 09:55 600 MG Miscellaneous Information (Order Awaiting Action) 1 ea Q8 N/A 03/05/16 17:00 04/04/16 16:59 Lactobacillus Acidophilus (Floranex Tab) 1 tab QAM PO 03/06/16 09:00 04/05/16 08:59 03/11/16 07:54 1 TAB Miscellaneous Information (Consult Glycemic Management Pharmacy) 1 ea UD PRN N/A 03/05/16 15:17 04/04/16 15:16 Sumatriptan Succinate (Imitrex Tab) 50 mg Q2H PRN PO 03/06/16 06:15 04/05/16 06:14 03/06/16 08:03 50 MG Zolpidem Tartrate (Ambien Tab) 5 mg HS PRN PO 03/06/16 18:15 04/05/16 18:14 03/10/16 22:05 5 MG Imipenem/ Cilastatin Sodium 1 ea 1 ea UD PRN N/A 03/07/16 12:10 04/06/16 12:09 Imipenem/ Cilastatin Sodium/ Dextrose (Primaxin Iv/D5 100ml) 110 ml @ 110 mls/hr Q6H IV 03/07/16 14:00 03/14/16 13:59 03/11/16 07:56 110 MLS/HR Lorazepam (Ativan Tab) 1 mg DAILY PRN PO 03/07/16 13:30 04/06/16 13:29 03/09/16 02:46 1 MG Senna/Docusate Sodium (Senokot S Tab) 1 tab QAM PO 03/08/16 08:00 04/07/16 08:59 03/11/16 07:54 1 TAB Magnesium Hydroxide (Milk Of Magnesia Susp) 30 ml Q6H PRN PO 03/07/16 13:30 04/06/16 13:29 03/09/16 10:25 30 ML Insulin Human NPH (novoLIN-N NPH) 17 UNITS FOR BSG < 110 MG... BIDM SC 03/08/16 17:00 04/07/16 16:59 03/11/16 09:50 34 UNITS Objective Vital Signs Date Time Temp Pulse Resp B/P Pulse Ox O2 Delivery O2 Flow Rate FiO2 03/11/16 07:42 36.9 61 20 112/67 97 Nasal Cannula 4.0 03/11/16 07:30 Room Air 03/11/16 00:16 37.0 62 20 122/68 95 BiPAP 03/11/16 00:00 CPAP 03/10/16 22:21 68 94 4.0 03/10/16 20:00 Nasal Cannula 4.0 03/10/16 19:40 73 101/68 03/10/16 16:00 Nasal Cannula 4.0 03/10/16 15:50 36.8 64 20 112/67 96 Nasal Cannula 4.0 Physical Exam General Appearance: no apparent distress, + obese Eyes: normal inspection, sclerae normal ENT: hearing grossly normal Neck: supple, trachea midline Respiratory/Chest: chest non-tender, lungs clear, no respiratory distress, no accessory muscle use, + decreased breath sounds Cardiovascular: regular rate, rhythm Abdomen: normal bowel sounds, non tender, soft Neurologic/Psychiatric: alert, normal mood/affect Skin: normal color, warm/dry, no rash Laboratory Results Last 24 Hours Test 03/10/16 11:43 03/10/16 16:37 03/10/16 20:13 03/11/16 07:40 Bedside Glucose 196 mg/dl 189 mg/dl 224 mg/dl White Blood Count 9.19 K/uL Red Blood Count 4.72 M/uL Hemoglobin 12.2 g/dL Hematocrit 38.7 % Mean Corpuscular Volume 82.0 fL Mean Corpuscular Hemoglobin 25.8 pg Mean Corpuscular Hemoglobin Concent 31.5 g/dl RDW Standard Deviation 51.1 fL RDW Coefficient of Variation 17.1 % Platelet Count 137 K/uL Mean Platelet Volume 11.5 fL Sodium Level 143 mmol/L Potassium Level 4.3 mmol/L Chloride Level 103 mmol/L Carbon Dioxide Level 31 mmol/L Anion Gap 9.0 mmol/L Blood Urea Nitrogen 10 mg/dl Creatinine 0.53 mg/dl Est Creatinine Clear Calc Drug Dose 184.8 ml/min Estimated GFR () 114.7 Estimated GFR (Non- 98.9 BUN/Creatinine Ratio 18.7 Random Glucose 177 mg/dl Calcium Level 8.7 mg/dl Test 03/11/16 08:06 Bedside Glucose 195 mg/dl Assessment and Plan Patient with probable bibasilar pneumonia with altered mental status on admission along with Klebsiella oxytoca UTI. She continues on IV clindamycin and Primaxin. Will transition to PO Clindamycin 450 mg TID alone to complete 10 days of therapy for possible pneumonia. Otherwise, the patient is OK for D/C from ID perspective. She should follow up with us next week in the office. Thanks Plan: 1. Transition to PO Clindamycin 450 mg TID to complete 10 days. Stop date 03/15 PROVIDER ADDENDUM: Patient reviewed with Ms. Freeman. Agree with above assessment.
[2016-03-11] MEDS ORDERED: CLINDAMYCIN HCL 150 MG CAP PO SCH (14:00)
[2016-03-11 15:08] VITALS: BP 112/67; PULSE 58; TEMP 36.9; O2SAT 97
[2016-03-11 16:46] VITALS: BP 112/67; PULSE 58; TEMP 36.9; O2SAT 97
[2016-03-11] MEDS ORDERED: CLC150 PO (17:01)
--- NOTE | 2016-03-11 17:10 | Discharge Instructions ---
Discharge Instructions Admission Reason for Admission: Altered Mental Status Discharge Discharge Diagnosis / Problem: AMS 2/2 UTI and Pneumonia Discharge Goals Goal(s): Prevent Disease Progression Activity Recommendations Activity Limitations: resume your previous activity . Instructions / Follow-Up Instructions / Follow-Up Please take all medications as instructed. You have a follow-up appointment with your PCP, Dr. Ryan, on Wednesday 03/15 @ 1: 50 pm. It is recommended you have a follow-up chest xray in 4-6 weeks to ensure resolution of pneumonia. Infectious Disease would like to see you in the office next week. Please contact them to schedule an appointment for follow-up. It was a pleasure taking care of you! Call if you have any questions or problems. You can reach a [facility] hospitalist on duty at [facility] 24 hours a day by calling [phone]. Take care of yourself. Deidre Mayo, [facility] Diet Patient's current hospital diet: Diabetes Type 2 Diet Discharge Diet Recommended Diet: Diabetes Type 2 Diet Pending Studies Studies pending at discharge: no Medical Emergencies . Who to Call and When: Medical Emergencies: If at any time you feel your situation is an emergency, please call 911 immediately. . Non-Emergent Contact Non-Emergency issues call your: Primary Care Provider . . "Provider Documentation" section prepared by Deidre Mayo. VTE Core Measure Inpt VTE Proph given/why not?: Unfractionated heparin SQ
--- NOTE | 2016-03-17 08:54 | Discharge Summary ---
Discharge Summary Admission Date: Mar 05, 2016 at 14:35 Discharge Date: Mar 11, 2016 Discharge Disposition: Home Principal Diagnosis: Metabolic encephalopathy Sepsis Acute cystitis 2/2 Klebsiella Oxytoca HCAP Resolving sacral decubitus ulcer Secondary Diagnoses/Problems: Chronic respiratory failure on 4L oxygen via NC at baseline Morbid obesity Obesity hypoventilation on BIPAP HS Asthma HTN DMII with diabetic neuropathy and gastroparesis Recurrent UTI Chrons disease h/o CVA (left thalamic) Chronic OA Depression Diastolic heart failure HLP h/o necrotizing fasciitis-resolved Procedures: None. Vaccinations: None. Consultations: ID Pending Studies/Follow-Up: see discharge instructions below Medication Reconciliation New Medications: Clindamycin HCl (Clindamycin HCl) 150 Mg Cap 450 MG PO TID for 4 Days, #36 CAP Continued Medications: Albuterol (Ventolin Hfa) Aers 2 PUFFS INH QID PRN for SOB/Wheezing Albuterol Soln (Ventolin Soln) 0.083 % Neb 1 VIAL NEB Q6H PRN for SOB/Wheezing Aspirin (Aspirin Chewable) 81 Mg Chew 81 MG PO QAM, TAB Atenolol (Tenormin) 25 Mg Tab 12.5 MG PO HS, TAB Baclofen (Lioresal) 10 Mg Tab 20 MG PO TID, TAB Celecoxib (CeleBREX) 200 Mg Cap 1 CAP PO DAILY for 30 Days, #30 CAP 2 Refills Duloxetine Hcl (Cymbalta) 30 Mg Cap 30 MG PO BID, CAP Estrogens, Conjugated (Premarin) 14 Appln/30 Gm Cr 1 APPLN EXT 2XWK Fluticasone Furoate-Vilanterol (Breo Ellipta 200-25 Mcg/INH) 1 Inh Inh 1 PUFF INH DAILY Furosemide (Lasix) 40 Mg Tab 1 TAB PO QAM PRN for swelling for 30 Days, #30 TAB 5 Refills Hydroactive Dressings (Duoderm Hydroactive Gel) 1 Gel Gel 5.5 INCH TOP QD PRN for SKIN TEARS,ABRASIONS, QUINTERO Hydroxyzine Hcl (Atarax) 25 Mg Tab 25 MG PO Q6 PRN for Itching, TAB Insulin Nph (Novolin-N) Susp 72 UNITS SC TIDM, BTL Lactulose (Chronulac) 10 Gm/15 Ml Syrp 15 ML PO BID PRN for Constipation Levothyroxine Sodium (Levothyroxine Sodium) 100 Mcg Tab 100 MCG PO QAM Lorazepam (Ativan) 2 Mg Tab 1-2 MG PO BID PRN for Anxiety Metformin Ext Rel (Glucophage Ext Rel) 500 Mg Tab 1 TAB PO BID, TAB Miconazole Nitrate (Desenex Shake Powder) 43 Appln/43 Gm Powd 1 DOSE EXT BID PRN for Affected Skin Folds Montelukast Sodium (Singulair) 10 Mg Tab 10 MG PO HS, TAB Nystatin (Nystatin Cream) 90 Appln/30 Gm Cr 0 EXT BID PRN for affected skin folds, #15 GM APPLY TO AFFECTED AREA BID Ondansetron Hcl (Zofran) 4 Mg Tab 4 MG PO Q6 PRN for Nausea, TAB Oxygen (Oxygen) Gas 4 LITERS NA DAYTIME USES BIPAP WITH 4 L/MIN HS Pantoprazole (Pantoprazole Sodium) 40 Mg Tab 40 MG PO QAM TAKE THIS MEDICATION ONCE A DAY 30 MINUTES BEFORE FIRST MEAL OF THE DAY. Polyethylene Glycol 3350 (Miralax) 1 Pow Pow 17 GM PO BID PRN for Constipation, #527 GM Pregabalin (Lyrica) 200 Mg Cap 200 MG PO TID, CAP Probiotic Product (Probiotic) 1 Cap Cap 1 CAP PO QAM Silver Sulfadiazine (Silvadene) 1 % Cre 1 APPLN TOP DAILY PRN for SKIN TEAR OR ABRASION for 7 Days, #50 GM Simvastatin (Simvastatin) 20 Mg Tab 20 MG PO HS Sumatriptan Succinate (Imitrex) 100 Mg Tab 100 MG PO UD PRN for Migraine TAKE ONE TABLET AT ONSET OF MIGRAINE. NO MORE THAN 2 TABLETS IN 24HRS. Tiotropium [place] (Spiriva Handihaler) 18 Mcg/ Aerp 1 CAP INH QAM, INHALER Triamcinolone Acet (Triamcinolone Acetonide) 45 Appln/15 Gm Cr 1 APPLN TOP BID PRN for redness or itching for 30 Days, #30 GM Ursodiol (Ursodiol) 300 Mg Cap 600 MG PO BID TAKE THIS MEDICATION AFTER BREAKFAST AND AFTER EVENING MEAL. Admission Information HPI (per Admitting provider): This is a 65 year old female with PMH of chronic respiratory failure on 4 L continuous at home, morbid obesity, obesity hypoventilation on BiPAP HS, asthma , hypertension, DM type 2, recurrent UTI, who presents to the ED with altered mental status. Patient follows with Dr. Romero for primary care and Dr. Corey for ID. She has multiple admissions in the past year for metabolic encephalopathy related to recurrent UTI. Last hospitalization in January was for metabolic encephalopathy from pneumonia and UTI treated with cefepime then Rocephin. She was seen by ID during admission. states when she went home she was still coughing and weak. He states she improved but not back to baseline. Then 2 days ago she developed dry cough with increased SOB and wheezing. Since yesterday she is lethargic, sleeping all day, confused. He states she was unable to eat yesterday because she was falling asleep. He states she is "in a daze" and "spaced out." states this is similar to when she had UTI's in the past. When home health nurse saw her this morning she apparently called the PCP's office who recommended ER evaluation. Patient states "I don't know" when asked about recent events. She is unable to answer the location, but able to recite her name and identify her . She knows it is February 2016 but not the exact date. She denies chest pain or shortness of breath. Patient is bedbound with transfer to chair by Tere lift. notes chronic R sided weakness from prior CVA as well as diffuse generalized weakness. He denies acute focal weakness, facial droop, speech slurring, fevers , chills, rhinorrhea, sore throat complaints, sputum production, overt aspiration, chest pains, abdominal pain, N/V/D, dysuria, frequency. reports wounds on patient's lower back and buttock which are no longer open. Denies erythema or drainage of the wounds. Spoke to again- denies hx of C. diff. Also tested negative for C. diff several times in past 10 years. Physical Exam (per Admitting): General Appearance: no apparent distress, + obese, + pertinent finding ( lethargic 65 year old female, awakens for questioning, cooperative with some commands) Head: normocephalic, atraumatic Eyes: normal inspection, PERRL, sclerae normal, + pertinent finding (does not cooperate with EOM testing) ENT: hearing grossly normal, pharynx normal Neck: supple, trachea midline, + pertinent finding (neck is thick) Respiratory/Chest: no respiratory distress, + decreased breath sounds, + pertinent finding (limited exam due to obese habitus) Cardiovascular: regular rate, rhythm, no murmur, normal peripheral pulses Abdomen/GI: normal bowel sounds, non tender, soft, + pertinent finding ( obese) Extremities/Musculoskelatal: normal inspection, no calf tenderness, normal capillary refill, no pedal edema Neurologic/Psych: normal mood/affect, oriented x 3, + pertinent finding ( lethargic but awakens for questioning, oriented to person and month/ year. disoriented to place. unable to recall recent events. no facial droop. no dysarthria. generally weak. ribbon blockmaker strength equal bilaterally. unable to lift both legs off the bed, but able to move both feet equally. ) Skin: normal color, warm/dry, + pertinent finding (unable to visualize wounds on her lower back and buttock as I am unable to turn her) Hospital Course 1. Encephalopathy 2/2 UTI and bilateral pneumonia-resolved 2. HCAP-cont IV abx per ID (she was started on IV Clindamycin and IV cefepime on 03/05; Cefepime was changed to IV Imipienem on 03/07 because of a possible allergic reaction (rash) to cefepime; she was discharged on 03/11 with 10 additional days of clindamycin to take per ID recommendations.) 3. Klebsiella UTI- cont IV abx per ID 4. MRSA colonization 5. Drug rash to cefepime-resolved, added to allergy profile 6. Asthma-stable, no wheezing on exam, Xopenex nebs PRN, cont home inhalers, cont Singulair 7. CHRONIC RESPIRATORY FAILURE: Continue home oxygen 8. OBESITY HYPOVENTILATION: Continue BiPAP HS 9. HYPERTENSION: controlled, cont Atenolol 10. DM TYPE 2: Hold metformin; Insulin sliding scale coverage 11. HISTORY OF CVA: With residual right sided weakness; Continue aspirin and statin 12. HYPOTHYROIDISM: Continue levothyroxine 13. WOUNDS ON LOW BACK AND BUTTOCK: Consult wound care nurse:03/06/16: "UPON ASSESSMENT, BLANCHABLE REDNESS FOUND TO LOWER BACK FOLD, BUTTOCKS AND UPPER POSTERIOR THIGHS. 2 HEALED AREAS ON BL UPPER POSTERIOR THIGHS NOTED." - no issues per staff registered nurse, continue daily care DISPOSITION Lives with ; has home health Follows with Dr. Romero for primary care Total time spent on discharge = 60 minutes This includes examination of the patient, discharge planning, medication reconciliation, and communication with other providers. Discharge Instructions Discharge Instructions Admission Reason for Admission: Altered Mental Status Discharge Discharge Diagnosis / Problem: AMS 2/2 UTI and Pneumonia Discharge Goals Goal(s): Prevent Disease Progression Activity Recommendations Activity Limitations: resume your previous activity . Instructions / Follow-Up Instructions / Follow-Up Please take all medications as instructed. You have a follow-up appointment with your PCP, Dr. Ryan, on Wednesday 03/15 @ 1: 50 pm. It is recommended you have a follow-up chest xray in 4-6 weeks to ensure resolution of pneumonia. Infectious Disease would like to see you in the office next week. Please contact them to schedule an appointment for follow-up. It was a pleasure taking care of you! Call if you have any questions or problems. You can reach a [facility] hospitalist on duty at [facility] 24 hours a day by calling [phone]. Take care of yourself. Deidre Mayo, [facility] Additional Copies To Ruben Ryan III, M.D. Keiter, Carey K.,
--- NOTE | 2016-03-17 11:51 | EDITING REQUIRED CODING QUERY ---
SEPSIS Dear Dr. Mayo, To promote full compliance with coding requirements relating to patient care, physician participation is requested in all cases of air cargo agent uncertainty. Please assist us with the question(s) below: In responding to this query, please exercise your independent professional judgement. The fact that a question is asked does not imply that any particular answer is desired or expected. We appreciate your clarification on this issue. Sepsis is documented on the H and P but not on the Discharge Summary. Please clarify Sepsis below: ( )Bacteremia (Nonspecific laboratory finding of bacteria in the blood) Specify Organism ( ) Present on Admission ( ) Not present on admission () Unable to clinically determine ( ) Septicemia (Systemic disease associated with the presence of pathogenic microorganisms in the blood): Specify Organism ( ) Present on Admission () Not present on admission () Unable to clinically determine (x ) Sepsis Specify Organism Specify Associated Condition/Diagnosis (2/2 HCAP and UTI) (x ) Present on Admission ( ) Not present on admission () Unable to clinically determine ( ) Severe Sepsis (Sepsis associated with acute organ dysfunction) Specify Organism Specify Associated Condition/Diagnosis ( ) Present on Admission ( ) Not present on admission () Unable to clinically determine ( ) Septic Shock (Severe sepsis with acute circulatory failure, unexplained by other causes) () Present on Admission () Not present on admission () Unable to clinically determine ( ) Other, patient has: ( ) Sepsis was Ruled Out . Medical documentation from H and P: SIRS Meets criteria with + leukocytosis (WBC 13.5); + tachycardia; Afebrile; BP on high side; lactic acid WNL- will recheck this afternoon Possible infectious source- pulmonary and/or urine Blood cultures, urine culture pending Received cefepime in ER Antibiotic coverage noted below Thank you for your time. Donna Parr, MASTICATOR
[2016-06-20] MEDS ORDERED: LEVO100T7 PO (08:46)
[2016-06-20] MEDS ORDERED: OXGN (11:04)
[2016-06-20] MEDS ORDERED: MCTP TOP (11:06)
[2016-06-20] MEDS ORDERED: SIMV-151 PO (15:02)
[2016-06-20] MEDS ORDERED: MISCCAP80 PO (15:02)
[2016-06-20] MEDS ORDERED: TRMCR515 TOP (15:05)
[2016-06-20] MEDS ORDERED: NYSCR30 TOP (15:05)
[2016-06-20] MEDS ORDERED: PRT/40 PO (15:13)
[2016-06-20] MEDS ORDERED: ACT300 PO (15:13)
[2016-06-24] MEDS ORDERED: MCRK20 PO (11:43)
== END 2016-03-11 18:15 | disposition home health service (06) | DRG 871 ==
LOC: ENRESERVTM → ENRESERVDT → EDBD 10:32 → C.EDB 10:33 → C.2T 14:35 → EDBEDREQ 14:39 → C.MS4W 03-07 18:13
PROVIDERS: ADMIT Internal Medicine; ATTEND Hospitalist
DX: A41.9 Sepsis, unspecified organism (principal); J69.0 Pneumonitis due to inhalation of food and vomit; J15.212 Pneumonia due to Methicillin resistant Staphylococcus aureus; G93.41 Metabolic encephalopathy; N39.0 Urinary tract infection, site not specified; E66.2 Morbid (severe) obesity with alveolar hypoventilation; I50.32 Chronic diastolic (congestive) heart failure; K50.90 Crohn's disease, unspecified, without complications; J96.12 Chronic respiratory failure with hypercapnia; Z68.44 Body mass index [BMI] 60.0-69.9, adult; I42.1 Obstructive hypertrophic cardiomyopathy; B96.1 Klebsiella pneumoniae [K. pneumoniae] as the cause of diseases classified elsewhere; T36.1X5A Adverse effect of cephalosporins and other beta-lactam antibiotics, initial encounter; Y92.230 Patient room in hospital as the place of occurrence of the external cause; E03.9 Hypothyroidism, unspecified; F41.9 Anxiety disorder, unspecified; F32.9 Major depressive disorder, single episode, unspecified; G89.29 Other chronic pain; R21 Rash and other nonspecific skin eruption; E78.5 Hyperlipidemia, unspecified; E11.43 Type 2 diabetes mellitus with diabetic autonomic (poly)neuropathy; I11.0 Hypertensive heart disease with heart failure; K31.84 Gastroparesis; M19.90 Unspecified osteoarthritis, unspecified site; B96.89 Other specified bacterial agents as the cause of diseases classified elsewhere; S30.91XA Unspecified superficial injury of lower back and pelvis, initial encounter; X58.XXXA Exposure to other specified factors, initial encounter; Z99.81 Dependence on supplemental oxygen; Z86.19 Personal history of other infectious and parasitic diseases; Z22.322 Carrier or suspected carrier of Methicillin resistant Staphylococcus aureus; Z86.73 Personal history of transient ischemic attack (TIA), and cerebral infarction without residual deficits; Z99.89 Dependence on other enabling machines and devices; Z87.2 Personal history of diseases of the skin and subcutaneous tissue; Z88.1 Allergy status to other antibiotic agents; Z87.440 Personal history of urinary (tract) infections; Z88.2 Allergy status to sulfonamides; Z88.0 Allergy status to penicillin; Z88.8 Allergy status to other drugs, medicaments and biological substances; Z79.82 Long term (current) use of aspirin; Z79.1 Long term (current) use of non-steroidal anti-inflammatories (NSAID); Z79.899 Other long term (current) drug therapy; Z79.890 Hormone replacement therapy; Z79.51 Long term (current) use of inhaled steroids; Z79.4 Long term (current) use of insulin

== ENCOUNTER → 2016-03-25 | Outpatient (CLI) | payer OTHER ==
[~2016-03-25] MED LIST changes: +ACT300 PO; +ALBINS/ NEB; +ASPI81TA28 PO; +ATR25 PO; +ATV/2 PO; +ATV2 PO; +CELE1CAP30 PO; +CLB/200 PO; +CLC150 PO; -CLIN1GEL5 TOP; +CYM30 PO; +FLUT1INH7 INH; +GLCSR/500 PO; +IMT100 PO; +LCTS240 PO; +LEVO100T7 PO; +LRS20 PO; +LSX40 PO; -MAGN1SOL7 PO; +MCRK20 PO; +MCTP TOP; -METHPOW7 PO; +MISCCAP80 PO; -NITROGLYCERIN 2% EXT; +NVLNI SC; +NYSCR30 TOP; -OFLO0.3D4 OT; +ONDA4TAB46 PO; +OXGN; +POLY335019 PO; +POTA20TA13 PO; +PREG200C PO; +PRMVC EXT; +PRT/40 PO; +SILV1CRE73 TOP; +SIMV-151 PO; +SNG10 PO; +SPRIN/30 INH; +TNR25 PO; +TNR25X PO; +TRMCR515 TOP; +VNTHFA/IN INH
[2016-03-25 15:00] LABS: URINE APPEARANCE TURBID (CLEAR); URINE BILIRUBIN NEG (NEG); URINE COLOR DK YELLOW; URINE EPITHELIAL CELL AUTO >30 /lpf (0-5); URINE NITRITE NEG (NEG); URINE SPECIFIC GRAVITY 1.027 (1.000-1.030); UROBILINOGEN NEG (NEG)
[2016-03-25 15:03] LABS: MANUAL MICROSCOPIC REQUIRED? NO; REVIEW REQ? YES
[2016-03-25 15:23] LABS: URINE MUCUS PRESENT (NONE PRSENT)
== END | disposition home or self-care (01) ==
LOC: C.LABSPEC 14:17
PROVIDERS: ATTEND Internal Medicine Infectious Disease
DX: N39.0 Urinary tract infection, site not specified (principal)

== ENCOUNTER 2016-06-20 15:20 | Inpatient (IN) | payer OTHER ==
[~2016-06-20] VITALS: Ht 172.7 cm; Wt 156.5 kg
[2016-06-20] VITALS (7 sets, daily range): BP systolic 141–147; BP diastolic 78–79; PULSE 92–97; TEMP 36.4–36.6; O2SAT 91–97; BMI 54.8
[~2016-06-20 15:20] MED LIST changes: -ALBINS/ NEB; -ASPI81TA28 PO; -ATR25 PO; -ATV/2 PO; -ATV2 PO; -CELE1CAP30 PO; -CYM30 PO; -GLCSR/500 PO; -IMT100 PO; -LCTS240 PO; -LRS20 PO; -LSX40 PO; -MCRK20 PO; -NVLNI SC; -ONDA4TAB46 PO; +PANT40TA2 PO; -POLY335019 PO; -POTA20TA13 PO; -PREG200C PO; -PRT/40 PO; -SILV1CRE73 TOP; -SNG10 PO; -SPRIN/30 INH; -TNR25 PO; -TNR25X PO; -VNTHFA/IN INH
--- NOTE | 2016-06-20 15:56 | EMERGENCY ROOM VISIT NOTE ---
History Report prepared by Michelle: Brianna Franklin Under the Supervision of: Dr. Diana Orr M.D. First contact with patient: 15:19 Chief Complaint: ILLNESS Stated Complaint: SEPSIS ALERT History of Present Illness The patient is a 65 year old female who presents to the Emergency Room with complaints of persistent fatigue starting this morning. EMS reports that she was sleeping all day today and her was unable to wake her to administer her medications. She is currently in between doctors and has been unable to make some of her appointments. She has been answering EMS questions appropriately. She has not fallen. The patient reports that she is sleepy all the time. She does not identify any areas of pain. The history is limited due to the patient's altered mental status. Source of History: patient, EMS History Limited By: AMS Onset: this morning Position: other (global) Quality: other (fatigue) Timing: other (persistent) Note: Pt reports being sleepy. Pt denies fall or pain. Review of Systems Unobtainable due to altered mental status. Past Medical & Surgical Medical Problems: (1) Acute Pancreatitis (2) Altered mental status (3) Anxiety (4) Asthma (5) Body Mass Index 50.0-59.9, Adult (6) Cerebrovascular disease (7) Chronic hypercapnic respiratory failure (8) Chronic osteoarthritis (9) Chronic pain disorder (10) Crohn's disease (11) Depression (12) Diabetes mellitus, type II (13) Diabetic neuropathy (14) Diastolic heart failure (15) Dyslipidemia (16) Gastroparesis (17) Hypercapnic respiratory failure (18) Hypertension (19) Hypertrophic cardiomyopathy (20) Hypothyroidism (21) Necrotizing Fasciitis (22) Obesity hypoventilation syndrome (23) Pneumonia, organism unspecified (24) Recurrent UTI (25) Sleep apnea (26) Urin Tract Infection Nos Surgical Problems: (1) Status post partial nephrectomy (2) Status post repair nasal septum (3) Status post tonsillectomy Family History FH: asthma SISTER FH: dementia MOTHER FH: diabetes mellitus MOTHER GRANDMOTHER FH: heart disease FATHER GRANDMOTHER FH: hypertension MOTHER Social History Smoking Status: Never Smoker Alcohol Use: none Marital Status: Housing Status: lives with family Occupation Status: disabled Current/Historical Medications Scheduled Aspirin (Aspirin Ec), 81 MG PO DAILY Atenolol (Atenolol), 25 MG PO DAILY Baclofen (Baclofen), 20 MG PO TID Celecoxib (Celecoxib), 200 MG PO DAILY Duloxetine HCl (Duloxetine HCl), 30 MG PO BID Furosemide (Furosemide), 40 MG PO QAM Insulin Human NPH (Novolin N), 70 UNITS SC TIDM Levothyroxine Sodium (Levothyroxine Sodium), 100 MCG PO QAM Lorazepam (Lorazepam), 2 MG PO HS Metformin HCl (Metformin HCl ER), 500 MG PO BID Montelukast Sod (Montelukast Sodium), 10 MG PO HS Oxygen (Oxygen), 4 LITERS NA DAYTIME Pantoprazole (Pantoprazole Sodium), 40 MG PO QAM Pregabalin (Lyrica), 200 MG PO TID Probiotic Product (Probiotic), 1 CAP PO HS Simvastatin (Simvastatin), 20 MG PO HS Tiotropium [place] (Spiriva Handihaler), 1 PUFF INH QAM Ursodiol (Ursodiol), 600 MG PO BID Scheduled PRN Albuterol Hfa (Ventolin Hfa), 2 PUFFS INH QID PRN for SOB/Wheezing Albuterol Sulf (Proventil 0.083% 2.5MG/3ML), 1 VIAL NEB Q6H PRN for SOB/Wheezing Hydroxyzine HCl (Hydroxyzine HCl), 25 MG PO Q6H PRN for Itching Lactulose (Chronulac), 15 ML PO DAILY PRN for Severe Constipation Lorazepam (Ativan), 1-2 MG PO BID PRN for Anxiety Miconazole Nitrate (Desenex Shake Powder), 1 APPLN TOP BID PRN for Affected Skin Folds Nystatin (Nystatin Cream), 1 APPLN TOP BID PRN for Affected Skin Folds Ondansetron Hcl (Zofran), 4 MG PO Q6H PRN for Nausea Polyethylene Glycol 3350 (Miralax), 17 GM PO BID PRN for Constipation Silver Sulfadiazine (Silvadene), 1 APPLN TOP DAILY PRN for SKIN TEAR OR ABRASION Sumatriptan Succinate (Imitrex), 100 MG PO UD PRN for Migraine Triamcinolone Acet (Triamcinolone Acetonide), 1 APPLN TOP BID PRN for Redness and Itching Allergies Coded Allergies: Fluoxetine (Verified Allergy, Severe, ANAPHYLAXIS, 03/05/16) Insulin (Verified Allergy, Severe, LANTUS/LEVEMIR- HIVES/THROAT SWELLING, 03/05/16) TOLERATES NOVOLIN N 11/19/15 aj (per pt phone call) Note: after patient had severe hives reaction from Lantus (many years ago), she had skin testing @ [facility] and was tested with many other insulins. Pt says she only tolerated NOVOLIN NPH. Has tolerated Aspart during multiple admissions (12/2013, 05/2015, 07/2015) Moxifloxacin (Verified Allergy, Severe, HIVES, 03/05/16) Nitrofurantoin (Verified Allergy, Severe, HIVES, 03/05/16) Paroxetine (Verified Allergy, Severe, HIVES, 03/05/16) Quinolones (Verified Allergy, Severe, AVELOX & LEVAQUIN-HIVES, 03/05/16) Amitriptyline (Verified Allergy, Intermediate, Sweats and itching, 03/05/16 ) Buspirone (Verified Allergy, Intermediate, HIVES, 12/08/15) Citalopram (Verified Allergy, Intermediate, HIVES-RASH, 12/08/15) Escitalopram (Verified Allergy, Intermediate, HIVES-RASH, 12/08/15) Methadone (Verified Allergy, Intermediate, HIVES, 12/08/15) Penicillins (Verified Allergy, Intermediate, RASH,HIVES, 03/05/16) Serotonin Reuptake Inhibitors (Verified Allergy, Intermediate, MIGRAINES TO SSRIs, 02/01/16) Trazodone (Verified Allergy, Intermediate, BLOODY NOSE, HEADACHES,HIVES, ) Vancomycin (Verified Allergy, Intermediate, HIVES, 12/08/15) Prednisone (Verified Allergy, Mild, CHEST TIGHTNESS, 03/05/16) Azithromycin (Verified Allergy, Unknown, HIVES, 02/01/16) Carbamazepine (Verified Allergy, Unknown, [id number], 03/05/16) Cefepime (Verified Allergy, Unknown, face & arm redness/itching after 2nd or 3rd dose cefepime, 03/06/16) Ceftriaxone (Verified Allergy, Unknown, Received in [facility] (but needed benadryl for course of therapy, 03/06/16) this was during 01/2016 [facility] admission for Rocephin Ciprofloxacin (Unverified Allergy, Unknown, ABD PAINS, 03/05/16) Sertraline (Verified Allergy, Unknown, UNKNOWN, 12/08/15) Sitagliptin (Verified Allergy, Unknown, HIVES, 03/05/16) Tetracyclines (Verified Adverse Reaction, Severe, HIVES, 03/05/16) Sulfa Antibiotics (Verified Adverse Reaction, Intermediate, MIGRAINES, ) Fexofenadine (Verified Adverse Reaction, Mild, GI SYMPTOMS, 03/05/16) Tizanidine (Verified Adverse Reaction, Mild, ITCHING-HIVES, 12/08/15) Physical Exam Vital Signs Date Time Temp Pulse Resp B/P Pulse Ox O2 Delivery O2 Flow Rate FiO2 06/20/16 18:26 97 96 45 06/20/16 16:56 103 22 131/72 94 Room Air 06/20/16 16:17 103 18 127/80 95 Nasal Cannula 3.0 06/20/16 16:02 102 06/20/16 15:47 92 Nasal Cannula 3.0 06/20/16 15:39 36.5 108 22 134/73 79 Room Air Physical Exam Vital signs reviewed. General: Chronically-ill appearing, morbidly obese. HEENT: No scleral icterus, PERRLA, neck supple. Atraumatic. Cardiovascular: Regular rate and rhythm, no extra sounds. Pulmonary: Clear to auscultation bilaterally, normal work of breathing. Abdomen: Largely obese, soft nontender. Musculoskeletal: Atraumatic, minimal peripheral edema. Neurologic: Patient is somewhat somnolent, but responsive to verbal stimuli. Unable to adequately follow commands. Skin: Warm, dry, no rash Medical Decision & Procedures ER Provider Diagnostic Interpretation: X-ray results as stated below per interpretation by me and the radiologist: CHEST ONE VIEW PORTABLE CLINICAL HISTORY: Sepsis COMPARISON STUDY: 03/08/2016 FINDINGS: The heart is enlarged. There are bilateral mid and lower lung zone pulmonary airspace opacities. Associated pleural effusions cannot be excluded. There is mild pulmonary vascular congestion.[ IMPRESSION: 1. Cardiomegaly and mild pulmonary vascular congestion 2. Bilateral mid and lower lung zone pulmonary airspace opacities. These could be infectious, atelectatic, or related to focal pulmonary edema. Clinical and radiographic follow-up is recommended Electronically signed by: Yvon Hermosillo M.D. 06/20/2016 4:02 PM Dictated Date/Time: 06/20/2016 4:00 PM Laboratory Results Test 06/20/16 15:46 06/20/16 15:48 06/20/16 15:58 Immature Granulocyte % (Auto) 1.3 % White Blood Count 11.89 K/uL (4.8-10.8) Red Blood Count 5.25 M/uL (4.2-5.4) Hemoglobin 13.2 g/dL (12.0-16.0) Hematocrit 45.8 % (37-47) Mean Corpuscular Volume 87.2 fL (80-100) Mean Corpuscular Hemoglobin 25.1 pg (25-34) Mean Corpuscular Hemoglobin Concent 28.8 g/dl (32-36) Platelet Count 135 K/uL (130-400) Mean Platelet Volume 10.9 fL (7.4-10.4) Neutrophils (%) (Auto) 79.8 % Lymphocytes (%) (Auto) 10.8 % Monocytes (%) (Auto) 6.1 % Eosinophils (%) (Auto) 1.7 % Basophils (%) (Auto) 0.3 % Neutrophils # (Auto) 9.49 K/uL (1.4-6.5) Lymphocytes # (Auto) 1.28 K/uL (1.2-3.4) Monocytes # (Auto) 0.73 K/uL (0.11-0.59) Eosinophils # (Auto) 0.20 K/uL (0-0.5) Basophils # (Auto) 0.03 K/uL (0-0.2) Immature Granulocyte # (Auto) 0.16 K/uL (0.00-0.02) Prothrombin Time 10.4 SECONDS (9.0-12.0) Prothromb Time International Ratio 1.0 (0.9-1.1) Activated Partial Thromboplast Time 29.1 SECONDS (21.0-31.0) Partial Thromboplastin Ratio 1.1 Estimated Average Glucose 131 mg/dl Hemoglobin A1c 6.2 % (4.5-5.6) Total Bilirubin 0.3 mg/dl (0.2-1) Aspartate Amino Transf (AST/SGOT) 12 U/L (15-37) Alanine Aminotransferase (ALT/SGPT) 14 U/L (12-78) Alkaline Phosphatase 98 U/L (45-117) Pro-B-Type Natriuretic Peptide 122 pg/ml (0-900) Total Protein 7.1 gm/dl (6.4-8.2) Albumin 3.4 gm/dl (3.4-5.0) Globulin 3.7 gm/dl (2.5-4.0) Albumin/Globulin Ratio 0.9 (0.9-2) Bedside Lactic Acid Venous 1.29 mmol/L (0.90-1.70) Urine Color YELLOW Urine Appearance CLEAR (CLEAR) Urine pH 5.5 (4.5-7.5) Urine Specific [place] 1.019 (1.000-1.030) Urine Protein TRACE (NEG) Urine Glucose (UA) NEG (NEG) Urine Ketones NEG (NEG) Urine Occult Blood 3+ (NEG) Urine Nitrite NEG (NEG) Urine Bilirubin NEG (NEG) Urine Urobilinogen NEG (NEG) Urine Leukocyte Esterase NEG (NEG) Urine WBC (Auto) 5-10 /hpf (0-5) Urine RBC (Auto) >30 /hpf (0-4) Urine Hyaline Casts (Auto) 1-5 /lpf (0-5) Urine Epithelial Cells (Auto) 20-30 /lpf (0-5) Urine Bacteria (Auto) 2+ (NEG) Laboratory results per my review. Medications Administered Medications (Trade) Dose Ordered Sig/Keith Route Start Time Stop Time Status Last Admin Dose Admin Ceftriaxone Sodium (Rocephin Inj) 2 gm NOW STAT IV 06/20/16 16:37 06/20/16 16:39 DC 06/20/16 17:31 2 GM ECG Indication: altered mental status Rate (beats per minute): 105 Rhythm: sinus tachycardia Findings: no acute ischemic change, other (poor quality baseline for interpretation, likely previous inferior infarct) ED Course 152: Past medical records reviewed. The patient was evaluated in room A1. A complete history and physical examination was performed. 163: Rocephin Inj 2 gm IV. 1740: I reevaluated the patient. She was placed on BiPAP at this time. The patient will be evaluated for further management and care. 1751: I reviewed the patient's case with Dr. Santoro, [facility] - hospitalist. She will evaluate the patient for further management. Medical Decision Differential diagnosis: Etiologies such as metabolic, infection, hypoglycemia, electrolyte abnormalities , cardiac sources, intracerebral event, toxicologic, neurologic, as well as others were entertained. This patient was evaluated and appeared to be in no significant distress however she is somnolent. Patient is having difficulty oxygenating however on nasal cannula oxygen here in the ER she seems to be doing well. Chest x-ray was performed and reveals bibasal infiltrates. Patient has an extensive allergy list however has tolerated IV ceftriaxone in the past. Blood cultures were obtained and the patient was given 2 g of IV ceftriaxone due to her size. ABG was obtained and reveals a pH of 7.15. Patient was placed on BiPAP. I did discuss the case with the hospitalist service will evaluate the patient for further management. Consults Time Called: 174 Consulting Physician: [facility] Returned Call: [phone] I reviewed the patient's case with her. She will evaluate the patient for further management. Impression Primary Impression: Pneumonia Additional Impressions: Respiratory failure Metabolic encephalopathy Critical Care I have personally spent greater than 45 minutes of critical care time in the direct management of this patient. This includes bedside care, interpretation of diagnostic studies, and testing, discussion with consultants, patient, and family members, and other required patient management activities. This 45 minutes is in excess of all separately billable procedures. Scribe Attestation The scribe's documentation has been prepared under my direction and personally reviewed by me in its entirety. I confirm that the note above accurately reflects all work, treatment, procedures, and medical decision making performed by me. Departure Information Dispostion Being Evaluated By Hospitalist Referrals No Doctor, Assigned (PCP) Patient Instructions My [facility] Problem Qualifiers
--- NOTE | 2016-06-20 16:03 | DIAGNOSTIC IMAGING REPORT ---
CHEST ONE VIEW PORTABLE CLINICAL HISTORY: Sepsis COMPARISON STUDY: 03/08/2016 FINDINGS: The heart is enlarged. There are bilateral mid and lower lung zone pulmonary airspace opacities. Associated pleural effusions cannot be excluded. There is mild pulmonary vascular congestion.[ IMPRESSION: 1. Cardiomegaly and mild pulmonary vascular congestion 2. Bilateral mid and lower lung zone pulmonary airspace opacities. These could be infectious, atelectatic, or related to focal pulmonary edema. Clinical and radiographic follow-up is recommended Electronically signed by: Yvon Hermosillo M.D. 06/20/2016 4:02 PM Dictated Date/Time: 06/20/2016 4:00 PM
[2016-06-20 16:10] LABS: PARTIAL THROMBOPLASTIN RATIO 1.1; PROTHROMBIN TIME (PATIENT) 10.4 SECONDS (9.0-12.0)
[2016-06-20 16:18] LABS: URINE APPEARANCE CLEAR (CLEAR); URINE BILIRUBIN NEG (NEG); URINE COLOR YELLOW; URINE EPITHELIAL CELL AUTO 20-30 /lpf (0-5); URINE NITRITE NEG (NEG); URINE PH 5.5 (4.5-7.5); URINE SPECIFIC GRAVITY 1.019 (1.000-1.030); UROBILINOGEN NEG (NEG); ZZURINE CULT IF INDIC CATH YES
[2016-06-20 16:23] LABS: MANUAL MICROSCOPIC REQUIRED? NO; REVIEW REQ? NO
[2016-06-20 16:25] LABS: BUN/CREATININE RATIO 27.9 (10-20); CALCIUM 8.5 mg/dl (8.5-10.1); CREATININE 0.54 mg/dl (0.60-1.20); POTASSIUM 4.3 mmol/L (3.5-5.1)
[2016-06-20 16:28] LABS: ARTERIAL BLD GAS O2 SATURATION 93.4 % (90-95); ARTERIAL BLOOD GAS BASE EXCESS 9.3 mEq/L (-9-1.8); ARTERIAL BLOOD GAS HCO3 43 mmol/L (19-24); ARTERIAL BLOOD GAS PO2 83 mm/Hg (80-95)
[2016-06-20 16:28] LABS: ALB/GLOB RATIO 0.9 (0.9-2)
[2016-06-20 16:30] LABS: BASO % 0.3 %; BASO ABS # 0.03 K/uL (0-0.2); COMPLETE YES; EOS % 1.7 %; HEMATOCRIT 45.8 % (37-47); IG% 1.3 %; LYMPH % 10.8 %; LYMPH ABS # 1.28 K/uL (1.2-3.4); MEAN CELL VOLUME 87.2 fL (80-100); MEAN CORPUSCULAR HEMOGLOBIN 25.1 pg (25-34); MEAN CORPUSCULAR HGB CONC 28.8 g/dl (32-36); MEAN PLATELET VOLUME 10.9 fL (7.4-10.4); MONO % 6.1 %; NEUT % 79.8 %; PLATELET COUNT 135 K/uL (130-400); RED BLOOD COUNT 5.25 M/uL (4.2-5.4); WHITE BLOOD COUNT 11.89 K/uL (4.8-10.8)
[2016-06-20] MEDS ORDERED: IMT100 PO (16:36)
[2016-06-20] MEDS ORDERED: LSX40 PO (16:36)
[2016-06-20] MEDS ORDERED: NVLNI SC (16:36)
[2016-06-20] MEDS ORDERED: ATV2 PO (16:36)
[2016-06-20] MEDS ORDERED: GLCSR/500 PO (16:36)
[2016-06-20] MEDS ORDERED: SPRIN/30 INH (16:36)
[2016-06-20] MEDS ORDERED: TNR25 PO (16:36)
[2016-06-20] MEDS ORDERED: SNG10 PO (16:36)
[2016-06-20] MEDS ORDERED: ATR25 PO (16:36)
[2016-06-20] MEDS ORDERED: LRS20 PO (16:36)
[2016-06-20] MEDS ORDERED: CYM30 PO (16:36)
[2016-06-20] MEDS ORDERED: CELE1CAP30 PO (16:36)
[2016-06-20] MEDS ORDERED: CEFTRIAXONE SOD INJ 1 GM ADDVIAL IV STA (16:37)
[2016-06-20] MEDS ORDERED: ASPI81TA28 PO (16:41)
[2016-06-20] MEDS ORDERED: LCTS240 PO (16:41)
[2016-06-20] MEDS ORDERED: VNTHFA/IN INH (16:45)
[2016-06-20] MEDS ORDERED: ALBINS/ NEB (16:45)
[2016-06-20 17:25] LABS: ARTERIAL BLOOD GAS pH 7.14 (7.35-7.45)
[2016-06-20 17:26] LABS: ALLEN TEST POS (POS)
[2016-06-20 17:28] LABS: O2 ADMINISTRATION 3L
[2016-06-20] MEDS ORDERED: ACETAMINOPHEN 325 MG TAB PO PRN (18:30)
[2016-06-20] MEDS ORDERED: ONDANSETRON INJ 2 MG/ML 2 ML VIAL IV PRN (18:30)
[2016-06-20] MEDS ORDERED: GLUCOSE 10 TABS/TUBE PO PRN (18:30)
[2016-06-20] MEDS ORDERED: GLUCOSE 40% GEL 15 GM TUBE PO PRN (18:30)
[2016-06-20] MEDS ORDERED: NITROGLYCERIN 0.4 MG SL PER TAB CHARGE SL PRN (18:30)
[2016-06-20] MEDS ORDERED: DEXTROSE 50% 50 ML SYR IV PRN (18:30)
[2016-06-20] MEDS ORDERED: GLUCAGON FOR INJ 1 MG VIAL SQ PRN (18:30)
[2016-06-20] MEDS ORDERED: TNR25X PO (18:35)
[2016-06-20] MEDS ORDERED: NYSTATIN CR 15 GM TUBE EXT PRN (18:45)
[2016-06-20] MEDS ORDERED: TRIAMCINOLONE ACET 0.5% CR 15 GM TUBE EXT PRN (18:45)
[2016-06-20] MEDS ORDERED: LACTULOSE SYRUP 20 GM/30 ML UDC PO PRN (18:45)
[2016-06-20] MEDS ORDERED: ALBUTEROL HFA 8 GM INHALER INH PRN (18:45)
[2016-06-20] MEDS ORDERED: LORAZEPAM 1 MG TAB PO PRN (18:45)
[2016-06-20] MEDS ORDERED: SUMATRIPTAN SUCC TAB 100 MG TAB PO PRN (18:45)
[2016-06-20] MEDS ORDERED: ALBUTEROL 0.083% NEBU SOLN 3 ML VIAL INH PRN (18:45)
[2016-06-20] MEDS ORDERED: POLYETHYLENE (MIRALAX) 17 GM PACK PO PRN (18:45)
[2016-06-20] MEDS ORDERED: SILVER SULFADIAZINE 1% CR 400 GM JAR EXT PRN (18:45)
--- NOTE | 2016-06-20 19:07 | Progress Note ---
Progress Note Date of Service June 20, 2016. Progress Note Patient was seen and evaluated with SANDOVAL Starkey. Patient came in with AMS, lethargic starting this morning. Per patient's , she was unable to wake up to administer her medications. Has been using her BIPAP at night regularly. Had some wheezing in AM. Denies any chest pain, cough , worsening of SOB from baseline. No leg swelling. Did have diarrhea few days ago lasting for 2 days and than resolved by itself. EXAM: Gen: Drowsy, lethargic, but arousable and answers few questions, Disoriented x 3 Neck: Obese+ Lungs: AEBE decreased, no wheezing, crackles Heart: S1, S2 normal, no murmurs Abd: Soft, non tender, non distended, BS present Ext: No edema Labs: ABGs- PH 7.14, PCO2- 127, HCO3-43 On 3 L oxygen (at home on 4 L) IMAGING : CXR reviewed- B/L basal infiltrates- atelactasis vs congestion vs infiltrate. Follow up recommended A/P: METABOLIC ENCEPHALOPATHY/CO2 NARCOSIS Secondary to Acute on Chronic respiratory failure with hypercapnea with acute on chronic respiratory acidosis in setting of possible pneumonia/Morbid obesity- Obesity hypoventilation syndrome/JOSE. Has been compliant with her BIPAP per patient's . Uses it every night. -BIPAP now and to be continued till clinically and ABGs improves -Repeat ABG in 4 hours- may require change in settings accordingly -Duonebs QID and PRN -IV Rocephin empirically for possible infiltrate on CXR, however, clinically has no signs /symptoms of pneumonia. If remains afebrile and no signs of infection may consider discontinuing it after 48 hours. ABNORMAL UA -Has had multiple UTIs in past. Multiple allergies too -IV Rocephin to be continued till urine cx comes back MORBID OBESITY OBESITY HYPOVENTILATION SYNDROME ON BIPAP Agree with assessment and plan of BROOKS Starkey.
--- NOTE | 2016-06-20 19:24 | History and Physical ---
History & Physical Date & Time of Service: June 20, 2016 at 18:43 Chief Complaint: Sepsis Alert Primary Care Physician: No Doctor, Assigned History of Present Illness Source: patient, spouse This is a 65 y/o female with PMHx of chronic respiratory failure on BIPAP HS and PRN during day, h/o CVA, DM 2, HTN and other problems as outline below who presents to the ED with lethargy that began this morning. Per at bedside patient went back to bed shortly after waking up this morning and slept most of the day. Around lunch-time, checked on patient and he was unable to arouse her and called EMS. mentions patient had a few days of diarrhea last week which has resolved and she was complaining of burning with urination a few days ago. Pt denies fever/chills, diaphoresis, chest pain, palpitations, SOB, wheezing, abd pain, N/V, bowel, LE edema, calf pain, lightheadedness/dizziness. In the ED, vitals are stable. Pt is afebrile with leukocytosis>11k. ABG+ respiratory acidosis. UA 2+ bacteria. CXR bilat infiltrates. Pt is stable and will be admitted for further evaluation and treatment. Past Medical/Surgical History Medical Problems: (1) Acute Pancreatitis Status: Resolved (2) Anxiety Status: Chronic (3) Asthma Status: Chronic (4) Body Mass Index 50.0-59.9, Adult Status: Chronic (5) Cerebrovascular disease Permanent Comment: history left thalamic stroke Status: Chronic (6) Chronic hypercapnic respiratory failure Status: Chronic (7) Chronic osteoarthritis Status: Chronic (8) Chronic pain disorder Status: Chronic (9) Crohn's disease Status: Chronic (10) Depression Status: Chronic (11) Diabetes mellitus, type II Status: Chronic (12) Diabetic neuropathy Status: Chronic (13) Diastolic heart failure Status: Chronic (14) Dyslipidemia Status: Chronic (15) Gastroparesis Status: Chronic (16) Hypertension Status: Chronic (17) Hypertrophic cardiomyopathy Status: Chronic (18) Hypothyroidism Status: Chronic (19) Necrotizing Fasciitis Status: Resolved (20) Obesity hypoventilation syndrome Status: Chronic (21) Pneumonia, organism unspecified Status: Resolved (22) Sleep apnea Status: Chronic (23) Urin Tract Infection Nos Status: Resolved Surgical Problems: (1) Status post partial nephrectomy Permanent Comment: left partial nephrectomy, pathology benign Status: Chronic (2) Status post repair nasal septum Status: Chronic (3) Status post tonsillectomy Status: Chronic Family History FH: asthma SISTER FH: dementia MOTHER FH: diabetes mellitus MOTHER GRANDMOTHER FH: heart disease FATHER GRANDMOTHER FH: hypertension MOTHER Social History Smoking Status: Never Smoker Alcohol Use: none Drug Use: none Marital Status: Housing status: lives with significant other, other Occupational Status: disabled Immunizations History of Influenza Vaccine: Yes Influenza Vaccine Date: Oct 16, 2014 History of Tetanus Vaccine?: Unknown Tetanus Immunization Date: Oct 23, 2009 History of Pneumococcal: Yes Pneumococcal Date: Nov 30, 2000 History of Hepatitis B Vaccine: Unknown Multi-Drug Resistant Organisms History of MDRO: Yes Type of MDRO: MRSA Allergies Coded Allergies: Fluoxetine (Verified Allergy, Severe, ANAPHYLAXIS, 03/05/16) Insulin (Verified Allergy, Severe, LANTUS/LEVEMIR- HIVES/THROAT SWELLING, 03/05/16) TOLERATES NOVOLIN N 11/19/15 aj (per pt phone call) Note: after patient had severe hives reaction from Lantus (many years ago), she had skin testing @ [facility] and was tested with many other insulins. Pt says she only tolerated NOVOLIN NPH. Has tolerated Aspart during multiple admissions (12/2013, 05/2015, 07/2015) Moxifloxacin (Verified Allergy, Severe, HIVES, 03/05/16) Nitrofurantoin (Verified Allergy, Severe, HIVES, 03/05/16) Paroxetine (Verified Allergy, Severe, HIVES, 03/05/16) Quinolones (Verified Allergy, Severe, AVELOX & LEVAQUIN-HIVES, 03/05/16) Amitriptyline (Verified Allergy, Intermediate, Sweats and itching, 03/05/16 ) Buspirone (Verified Allergy, Intermediate, HIVES, 12/08/15) Citalopram (Verified Allergy, Intermediate, HIVES-RASH, 12/08/15) Escitalopram (Verified Allergy, Intermediate, HIVES-RASH, 12/08/15) Methadone (Verified Allergy, Intermediate, HIVES, 12/08/15) Penicillins (Verified Allergy, Intermediate, RASH,HIVES, 03/05/16) Serotonin Reuptake Inhibitors (Verified Allergy, Intermediate, MIGRAINES TO SSRIs, 02/01/16) Trazodone (Verified Allergy, Intermediate, BLOODY NOSE, HEADACHES,HIVES, ) Vancomycin (Verified Allergy, Intermediate, HIVES, 12/08/15) Prednisone (Verified Allergy, Mild, CHEST TIGHTNESS, 03/05/16) Azithromycin (Verified Allergy, Unknown, HIVES, 02/01/16) Carbamazepine (Verified Allergy, Unknown, [id number], 03/05/16) Cefepime (Verified Allergy, Unknown, face & arm redness/itching after 2nd or 3rd dose cefepime, 03/06/16) Ceftriaxone (Verified Allergy, Unknown, Received in [facility] (but needed benadryl for course of therapy, 03/06/16) this was during 01/2016 [facility] admission for Rocephin Ciprofloxacin (Unverified Allergy, Unknown, ABD PAINS, 03/05/16) Sertraline (Verified Allergy, Unknown, UNKNOWN, 12/08/15) Sitagliptin (Verified Allergy, Unknown, HIVES, 03/05/16) Tetracyclines (Verified Adverse Reaction, Severe, HIVES, 03/05/16) Sulfa Antibiotics (Verified Adverse Reaction, Intermediate, MIGRAINES, ) Fexofenadine (Verified Adverse Reaction, Mild, GI SYMPTOMS, 03/05/16) Tizanidine (Verified Adverse Reaction, Mild, ITCHING-HIVES, 12/08/15) Home Medications Scheduled Aspirin (Aspirin Ec), 81 MG PO DAILY Atenolol (Atenolol), 25 MG PO DAILY Baclofen (Baclofen), 20 MG PO TID Celecoxib (Celecoxib), 200 MG PO DAILY Duloxetine HCl (Duloxetine HCl), 30 MG PO BID Furosemide (Furosemide), 40 MG PO QAM Insulin Human NPH (Novolin N), 70 UNITS SC TIDM Levothyroxine Sodium (Levothyroxine Sodium), 100 MCG PO QAM Lorazepam (Lorazepam), 2 MG PO HS Metformin HCl (Metformin HCl ER), 500 MG PO BID Montelukast Sod (Montelukast Sodium), 10 MG PO HS Oxygen (Oxygen), 4 LITERS NA DAYTIME Pantoprazole (Pantoprazole Sodium), 40 MG PO QAM Pregabalin (Lyrica), 200 MG PO TID Probiotic Product (Probiotic), 1 CAP PO HS Simvastatin (Simvastatin), 20 MG PO HS Tiotropium [place] (Spiriva Handihaler), 1 PUFF INH QAM Ursodiol (Ursodiol), 600 MG PO BID Scheduled PRN Albuterol Hfa (Ventolin Hfa), 2 PUFFS INH QID PRN for SOB/Wheezing Albuterol Sulf (Proventil 0.083% 2.5MG/3ML), 1 VIAL NEB Q6H PRN for SOB/Wheezing Hydroxyzine HCl (Hydroxyzine HCl), 25 MG PO Q6H PRN for Itching Lactulose (Chronulac), 15 ML PO DAILY PRN for Severe Constipation Lorazepam (Ativan), 1-2 MG PO BID PRN for Anxiety Miconazole Nitrate (Desenex Shake Powder), 1 APPLN TOP BID PRN for Affected Skin Folds Nystatin (Nystatin Cream), 1 APPLN TOP BID PRN for Affected Skin Folds Ondansetron Hcl (Zofran), 4 MG PO Q6H PRN for Nausea Polyethylene Glycol 3350 (Miralax), 17 GM PO BID PRN for Constipation Silver Sulfadiazine (Silvadene), 1 APPLN TOP DAILY PRN for SKIN TEAR OR ABRASION Sumatriptan Succinate (Imitrex), 100 MG PO UD PRN for Migraine Triamcinolone Acet (Triamcinolone Acetonide), 1 APPLN TOP BID PRN for Redness and Itching Review of Systems Constitutional: + fatigue, + weakness, No chills, No fever, No sweats Eyes: No worsening of vision ENT: No hearing loss Respiratory: No cough, No shortness of breath, No sputum, No wheezing Cardiovascular: No chest pain, No claudication, No edema Abdomen: No constipation, No diarrhea, No nausea, No pain, No vomiting Musculoskeletal: No calf pain, No swelling Genitourinary - Female: No dysuria Neurologic: + weakness Psychiatric: No depression symptoms Endocrine: + fatigue Hematologic / Lymphatic: No abnormal bleeding/bruising Integumentary: No new/changing skin lesions Physical Exam Vital Signs Date Time Temp Pulse Resp B/P Pulse Ox O2 Delivery O2 Flow Rate FiO2 06/20/16 18:26 97 96 45 06/20/16 16:56 103 22 131/72 94 Room Air 06/20/16 16:17 103 18 127/80 95 Nasal Cannula 3.0 06/20/16 16:02 102 06/20/16 15:47 92 Nasal Cannula 3.0 06/20/16 15:39 36.5 108 22 134/73 79 Room Air General Appearance: WD/WN, no apparent distress, + obese, + pertinent finding ( Pt is laying in bed with BIPAP in place) Head: normocephalic, atraumatic Eyes: normal inspection ENT: hearing grossly normal Neck: supple Respiratory/Chest: chest non-tender, lungs clear (auscultated anteriorly), normal breath sounds, no respiratory distress Cardiovascular: regular rate, rhythm, no edema, no murmur Abdomen/GI: normal bowel sounds, non tender, soft Back: normal inspection Extremities/Musculoskelatal: normal inspection, no calf tenderness, no pedal edema Neurologic/Psych: alert, normal mood/affect, oriented x 3 Skin: normal color, warm/dry Diagnostics Laboratory Results Results Past 24 Hours Test 06/20/16 15:46 06/20/16 15:48 06/20/16 15:58 06/20/16 16:14 Range/Units White Blood Count 11.89 4.8-10.8 K/uL Red Blood Count 5.25 4.2-5.4 M/uL Hemoglobin 13.2 12.0-16.0 g/dL Hematocrit 45.8 37-47 % Mean Corpuscular Volume 87.2 80-100 fL Mean Corpuscular Hemoglobin 25.1 25-34 pg Mean Corpuscular Hemoglobin Concent 28.8 32-36 g/dl Platelet Count 135 130-400 K/uL Mean Platelet Volume 10.9 7.4-10.4 fL Neutrophils (%) (Auto) 79.8 % Lymphocytes (%) (Auto) 10.8 % Monocytes (%) (Auto) 6.1 % Eosinophils (%) (Auto) 1.7 % Basophils (%) (Auto) 0.3 % Neutrophils # (Auto) 9.49 1.4-6.5 K/uL Lymphocytes # (Auto) 1.28 1.2-3.4 K/uL Monocytes # (Auto) 0.73 0.11-0.59 K/uL Eosinophils # (Auto) 0.20 0-0.5 K/uL Basophils # (Auto) 0.03 0-0.2 K/uL RDW Standard Deviation 53.6 36.4-46.3 fL RDW Coefficient of Variation 16.8 11.5-14.5 % Immature Granulocyte % (Auto) 1.3 % Immature Granulocyte # (Auto) 0.16 0.00-0.02 K/uL Prothrombin Time 10.4 9.0-12.0 SECONDS Prothromb Time International Ratio 1.0 0.9-1.1 Activated Partial Thromboplast Time 29.1 21.0-31.0 SECONDS Partial Thromboplastin Ratio 1.1 Sodium Level 144 136-145 mmol/L Potassium Level 4.3 3.5-5.1 mmol/L Chloride Level 101 98-107 mmol/L Carbon Dioxide Level 43 21-32 mmol/L Anion Gap 0.0 3-11 mmol/L Blood Urea Nitrogen 15 7-18 mg/dl Creatinine 0.54 0.60-1.20 mg/dl Est Creatinine Clear Calc Drug Dose 170.5 ml/min Estimated GFR () 114.0 Estimated GFR (Non- 98.3 BUN/Creatinine Ratio 27.9 10-20 Random Glucose 235 70-99 mg/dl Calcium Level 8.5 8.5-10.1 mg/dl Total Bilirubin 0.3 0.2-1 mg/dl Aspartate Amino Transf (AST/SGOT) 12 15-37 U/L Alanine Aminotransferase (ALT/SGPT) 14 12-78 U/L Alkaline Phosphatase 98 45-117 U/L Total Protein 7.1 6.4-8.2 gm/dl Albumin 3.4 3.4-5.0 gm/dl Globulin 3.7 2.5-4.0 gm/dl Albumin/Globulin Ratio 0.9 0.9-2 Bedside Lactic Acid Venous 1.29 0.90-1.70 mmol/L Urine Color YELLOW Urine Appearance CLEAR CLEAR Urine pH 5.5 4.5-7.5 Urine Specific [place] 1.019 1.000-1.030 Urine Protein TRACE NEG Urine Glucose (UA) NEG NEG Urine Ketones NEG NEG Urine Occult Blood 3+ NEG Urine Nitrite NEG NEG Urine Bilirubin NEG NEG Urine Urobilinogen NEG NEG Urine Leukocyte Esterase NEG NEG Urine WBC (Auto) 5-10 0-5 /hpf Urine RBC (Auto) >30 0-4 /hpf Urine Hyaline Casts (Auto) 1-5 0-5 /lpf Urine Epithelial Cells (Auto) 20-30 0-5 /lpf Urine Bacteria (Auto) 2+ NEG Arterial Blood pH 7.14 7.35-7.45 Arterial Blood Partial Pressure CO2 127 35-46 mmHg Arterial Blood Partial Pressure O2 83 80-95 mm/Hg Arterial Blood HCO3 43 19-24 mmol/L Arterial Blood Oxygen Saturation 93.4 90-95 % Arterial Blood Base Excess 9.3 -9-1.8 mEq/L Arterial Blood Gas Delivery 3L Bill Test POS POS Microbiology Results 06/20/16 Blood Culture, Received Pending 06/20/16 Blood Culture, Received Pending 06/20/16 Urine Culture, Received Pending Diagnostic Radiology CXR IMPRESSION: 1. Cardiomegaly and mild pulmonary vascular congestion 2. Bilateral mid and lower lung zone pulmonary airspace opacities. These could be infectious, atelectatic, or related to focal pulmonary edema. Clinical and radiographic follow-up is recommended EKG EKG: sinus tachy at 105 bpm with no acute ischemic changes; no change when compared to EKG from 03/05/16 Impression Assessment and Plan CHRONIC HYPERCAPNIC RESPIRATORY FAILURE OBESITY HYPOVENTILATION SYNDROME pt presented with lethargy and decreased responsiveness at home; h/o chronic resp failure on chronic O2 at 3L and BIPAP at HS and PRN during the day -admit to telemetry -ABG pH 7.14, pCO2 127, bicarb 43 suggestive of respiratory acidosis -start BIPAP and repeat ABG tonight -duonebs QID and PRN -IV Rocephin empirically for possible infiltrate on CXR; clinically pt has no fever, SOB, cough or increased O2 requirement -monitor ABNORMAL UA WITH H/O RECURRENT UTI pt had dysuria 2 days ago; h/o recurrent UTI. -pt is afebrile with leukocytosis >11k -UA 3+ bacteria; urine culture pending -empirically treat with Rocephin -insert estrada catheter -monitor labs DM TYPE 2 -last A1C 6.0; repeat in AM -hold metformin and Novolin NPH -start ISS -Monitor BSGs AC HS HYPERTENSION -BP is stable -cont atenolol -monitor ASTHMA -no wheezing on exam -cont home Spiriva and PRN nebs H/O CVA -cont ASA and statin DEPRESSION/ ANXIETY -cont Cymbalta -cont Ativan PRN HYPOTHYROIDISM -cont levothyroxine GERD -cont PPI MORBID OBESITY, BMI 56.2 -patient has significant deconditioning -consider PT/OT consults once clinically improved DVT PROPHYLAXIS -Subq Lovenox CODE STATUS -FULL CODE per discussion with patient and upon admission DISPO -Patient seen in collaboration with Dr. Santoro. Please see her addendum for further details. Thanks! Note: Pt will be followed by Dr. Armstrong beginning tomorrow morning. VTE Prophylaxis VTE Risk Assessment Done? Y/N: Yes Risk Level: Moderate
[2016-06-20] MEDS ORDERED: ATV/2 PO (19:36)
[2016-06-20] MEDS ORDERED: SILV1CRE73 TOP (19:36)
[2016-06-20 20:12] LABS: ARTERIAL BLD GAS O2 SATURATION 90.8 % (90-95); ARTERIAL BLOOD GAS BASE EXCESS 10.6 mEq/L (-9-1.8); ARTERIAL BLOOD GAS HCO3 44 mmol/L (19-24); ARTERIAL BLOOD GAS PO2 67 mm/Hg (80-95)
[2016-06-20 20:18] LABS: ALLEN TEST POS (POS); O2 ADMINISTRATION 45% BIPAP
[2016-06-20 20:19] LABS: ARTERIAL BLOOD GAS pH 7.15 (7.35-7.45)
[2016-06-20] MEDS: ALBUT/IPRATROP 3MG/0.5MG NEB 3 ML VIAL INH SCH (20:20)
[2016-06-20] MEDS: PREGABALIN 100 MG CAP PO SCH (21:00)
[2016-06-20] MEDS: MONTELUKAST SOD 10 MG TAB PO SCH (21:00)
[2016-06-20] MEDS: DULOXETINE (CYMBALTA) 30 MG CAP PO SCH (21:00)
[2016-06-20] MEDS: LACTOBACILLUS ACIDOPHILUS (FLORANEX) TAB PO SCH (21:00)
[2016-06-20] MEDS ORDERED: BACLOFEN TAB 20 MG TAB PO SCH (21:00)
[2016-06-20] MEDS: SIMVASTATIN 20 MG TAB PO SCH (21:00)
[2016-06-20] MEDS: URSODIOL 300 MG CAP PO SCH (21:00)
[2016-06-20] MEDS: INSULIN ASPART 100 UNITS/ML 3 ML PEN SC SCH (21:26)
[2016-06-20] MEDS: ENOXAPARIN 40 MG/0.4 ML SYR SC SCH (21:27)
[2016-06-20] MEDS: LORAZEPAM 2 MG TAB PO SCH (21:52)
[2016-06-20] MEDS ORDERED: POLY335019 PO (22:43)
[2016-06-20] MEDS ORDERED: METHYLPREDNISOLONE IV 20 MG in SYRINGE 0 ML IV STA (22:46)
[2016-06-20] MEDS ORDERED: ONDA4TAB46 PO (22:48)
[2016-06-20] MEDS ORDERED: FUROSEMIDE INJ 40 MG in SYRINGE 0 ML IV STA (22:49)
[2016-06-20] MEDS ORDERED: PREG200C PO (23:43)
[2016-06-20 23:53] LABS: ARTERIAL BLD GAS O2 SATURATION 95.1 % (90-95); ARTERIAL BLOOD GAS BASE EXCESS 12.4 mEq/L (-9-1.8); ARTERIAL BLOOD GAS HCO3 44 mmol/L (19-24); ARTERIAL BLOOD GAS PO2 89 mm/Hg (80-95); ARTERIAL BLOOD GAS pH 7.24 (7.35-7.45)
[2016-06-20 23:54] LABS: ALLEN TEST POS (POS)
[2016-06-21] VITALS (14 sets, daily range): BP systolic 104–137; BP diastolic 62–77; PULSE 74–86; TEMP 35.9–37.8; O2SAT 92–98
[2016-06-21] MEDS: LEVOTHYROXINE 100 MCG TAB PO SCH (06:25)
[2016-06-21] MEDS: ALBUT/IPRATROP 3MG/0.5MG NEB 3 ML VIAL INH SCH ×4 (07:09→19:37)
[2016-06-21 07:15] LABS: HEMATOCRIT 43.8 % (37-47); MEAN CORPUSCULAR HEMOGLOBIN 24.7 pg (25-34); MEAN PLATELET VOLUME 11.1 fL (7.4-10.4); PLATELET COUNT 152 K/uL (130-400); RED BLOOD COUNT 5.15 M/uL (4.2-5.4); WHITE BLOOD COUNT 11.37 K/uL (4.8-10.8)
[2016-06-21 07:21] LABS: ARTERIAL BLD GAS O2 SATURATION 98.2 % (90-95); ARTERIAL BLOOD GAS BASE EXCESS 15.1 mEq/L (-9-1.8); ARTERIAL BLOOD GAS HCO3 45 mmol/L (19-24); ARTERIAL BLOOD GAS PO2 128 mm/Hg (80-95)
[2016-06-21 07:24] LABS: ALLEN TEST POS (POS); O2 ADMINISTRATION 50%
[2016-06-21 08:21] LABS: CALCIUM 8.2 mg/dl (8.5-10.1); CREATININE 0.51 mg/dl (0.60-1.20); POTASSIUM 4.7 mmol/L (3.5-5.1)
[2016-06-21 08:38] LABS: ESTIMATED AVERAGE GLUCOSE 131 mg/dl; HA1C FLAG Normal (Normal)
[2016-06-21] MEDS: DULOXETINE (CYMBALTA) 30 MG CAP PO SCH ×2 (08:49→21:26)
[2016-06-21] MEDS: URSODIOL 300 MG CAP PO SCH ×2 (08:49→21:26)
[2016-06-21] MEDS: CeleBREX 200 MG CAP PO SCH (08:49)
[2016-06-21] MEDS: PANTOprazole SOD 40 MG TAB PO SCH (08:49)
[2016-06-21] MEDS: ASPIRIN 81 MG ECTAB PO SCH (08:49)
[2016-06-21] MEDS: PREGABALIN 100 MG CAP PO SCH ×3 (08:52→21:40)
[2016-06-21] MEDS: TIOTROPIUM BROMIDE 5 PUFF/90 MCG INH INH SCH (08:53)
[2016-06-21] MEDS: FUROSEMIDE 40 MG TAB PO SCH (08:53)
[2016-06-21] MEDS: INSULIN ASPART 100 UNITS/ML 3 ML PEN SC SCH ×4 (08:55→21:42)
[2016-06-21] MEDS: CEFTRIAXONE SOD INJ 1 GM in DEXTROSE 5% ADD-VANTAGE 50ML 50 ML IV SCH (16:53)
--- NOTE | 2016-06-21 17:10 | Progress Note ---
Internal Med Progress Note Date of Service: June 21, 2016. Provider Documentation: SUBJECTIVE: awake and alert today does not what happened to bring her to hospital with Co2 retention says she has been using her Bipap daily at night no complain of SOB no cough no fever or chills OBJECTIVE: Vital Signs-as noted below Exam: General-morbidly obese , no sign of distress, pleasant Lungs-diminished , no wheeze or rales Heart-regular s1/S2 Abdomen-soft,non tender Extremities-+ 1 lower ext edema Neuro-no focal deficit Lab data as noted below. ASSESSMENT & PLAN: CHRONIC HYPERCAPNIC RESPIRATORY FAILURE OBESITY HYPOVENTILATION SYNDROME pt presented with lethargy and decreased responsiveness at home; h/o chronic resp failure on chronic O2 at 3L and BIPAP at HS and PRN during the day -ABG on admission pH 7.14, pCO2 127, bicarb 43 suggestive of respiratory acidosis - continued BiPAP Co2 improved 95 awake and alert today , counselled to use Bipap at night daily and appropriately Pulmonology consult requested for recommendation for possible Bipap setting adjustment -cont duonebs QID and PRN -IV Rocephin empirically for possible infiltrate on CXR; clinically pt has no fever, SOB, cough or increased O2 requirement ABNORMAL UA WITH H/O RECURRENT UTI pt had dysuria 2 days ago; h/o recurrent UTI. -pt is afebrile with leukocytosis >11k -UA 3+ bacteria; urine culture pending -empirically treat with Rocephin -urine culture -streptococcus DM TYPE 2 BSG elevated ; received IV Solu Medrol in ED will add basal Lantus - A1C 6.2 shows well glycemic control -hold metformin and Novolin NPH -start ISS -Monitor BSGs AC HS HYPERTENSION -BP is stable -cont atenolol -monitor ASTHMA -no wheezing on exam -cont home Spiriva and PRN nebs H/O CVA -cont ASA and statin DEPRESSION/ ANXIETY -cont Cymbalta -cont Ativan PRN HYPOTHYROIDISM -cont levothyroxine GERD -cont PPI MORBID OBESITY, BMI 56.2 -patient has significant deconditioning -r PT/OT consults DVT PROPHYLAXIS -Subq Lovenox CODE STATUS -FULL CODE per discussion with patient and upon admission DISPOSITION to home when medically stable Vital Signs: Date Time Temp Pulse Resp B/P Pulse Ox O2 Delivery O2 Flow Rate FiO2 06/21/16 19:37 82 20 92 Nasal Cannula 4.0 06/21/16 19:31 36.6 86 20 111/65 95 Nasal Cannula 4.0 06/21/16 16:09 95 Nasal Cannula 4.0 06/21/16 15:30 85 20 95 Nasal Cannula 4.0 06/21/16 15:14 36.9 86 20 118/73 94 Nasal Cannula 4.0 06/21/16 12:22 37.0 82 22 108/64 93 Nasal Cannula 3.0 06/21/16 12:00 Nasal Cannula 4.0 06/21/16 11:20 84 20 93 Nasal Cannula 4.0 06/21/16 08:00 96 Nasal Cannula 4.0 06/21/16 07:55 37.8 85 22 137/77 98 BiPAP 50 06/21/16 07:12 82 97 50 06/21/16 07:11 82 22 97 BiPAP/CPAP 50 06/21/16 04:08 36.6 80 21 113/72 92 BiPAP 50 06/21/16 04:00 BiPAP 50 06/21/16 01:55 83 93 50 06/21/16 00:02 BiPAP 50 06/20/16 23:51 36.6 93 20 147/79 97 BiPAP 50 06/20/16 22:50 92 95 50 Lab Results: Results Past 24 Hours Test 06/20/16 23:42 06/21/16 06:29 06/21/16 06:45 06/21/16 07:03 Range/Units Arterial Blood pH 7.24 7.30 7.35-7.45 Arterial Blood Partial Pressure CO2 107 95 35-46 mmHg Arterial Blood Partial Pressure O2 89 128 80-95 mm/Hg Arterial Blood HCO3 44 45 19-24 mmol/L Arterial Blood Oxygen Saturation 95.1 98.2 90-95 % Arterial Blood Base Excess 12.4 15.1 -9-1.8 mEq/L Arterial Blood Gas Delivery FiO2 50% 50% Bill Test POS POS POS Bedside Glucose 248 70-90 mg/dl White Blood Count 11.37 4.8-10.8 K/uL Red Blood Count 5.15 4.2-5.4 M/uL Hemoglobin 12.7 12.0-16.0 g/dL Hematocrit 43.8 37-47 % Mean Corpuscular Volume 85.0 80-100 fL Mean Corpuscular Hemoglobin 24.7 25-34 pg Mean Corpuscular Hemoglobin Concent 29.0 32-36 g/dl RDW Standard Deviation 50.4 36.4-46.3 fL RDW Coefficient of Variation 16.2 11.5-14.5 % Platelet Count 152 130-400 K/uL Mean Platelet Volume 11.1 7.4-10.4 fL Sodium Level 146 136-145 mmol/L Potassium Level 4.7 3.5-5.1 mmol/L Chloride Level 97 98-107 mmol/L Carbon Dioxide Level 41 21-32 mmol/L Anion Gap 8.0 3-11 mmol/L Blood Urea Nitrogen 14 7-18 mg/dl Creatinine 0.51 0.60-1.20 mg/dl Est Creatinine Clear Calc Drug Dose 176.2 ml/min Estimated GFR () 116.1 Estimated GFR (Non- 100.2 BUN/Creatinine Ratio 28.0 10-20 Random Glucose 222 70-99 mg/dl Calcium Level 8.2 8.5-10.1 mg/dl Test 06/21/16 10:54 06/21/16 16:09 06/21/16 20:13 Range/Units Bedside Glucose 230 230 253 70-90 mg/dl
[2016-06-21] MEDS ORDERED: INSULIN GLARGINE SOLOSTAR 100 UNITS/ML 3 ML PEN SC SCH (21:15)
[2016-06-21] MEDS: MONTELUKAST SOD 10 MG TAB PO SCH (21:25)
[2016-06-21] MEDS: LACTOBACILLUS ACIDOPHILUS (FLORANEX) TAB PO SCH (21:25)
[2016-06-21] MEDS: SIMVASTATIN 20 MG TAB PO SCH (21:27)
[2016-06-21] MEDS: ENOXAPARIN 40 MG/0.4 ML SYR SC SCH (21:28)
[2016-06-21] MEDS: LORAZEPAM 2 MG TAB PO SCH (21:40)
[2016-06-21] MEDS: MICONAZOLE NITRATE POWDER 43 GM EXT PRN (21:57)
[2016-06-22] VITALS (13 sets, daily range): BP systolic 113–138; BP diastolic 59–76; PULSE 67–87; TEMP 36.7–37.3; O2SAT 93–99; Ht 172.7 cm; Wt 156.5 kg
[2016-06-22] MEDS: LEVOTHYROXINE 100 MCG TAB PO SCH (05:27)
[2016-06-22] MEDS: ALBUT/IPRATROP 3MG/0.5MG NEB 3 ML VIAL INH SCH ×4 (07:28→19:39)
[2016-06-22] MEDS: INSULIN ASPART 100 UNITS/ML 3 ML PEN SC SCH ×4 (07:39→21:38)
--- NOTE | 2016-06-22 07:51 | Clinical Documentation Query ---
CLINICAL DOCUMENTATION QUERY Metabolic encephalopathy 2/2 acute on chronic hypercapneic respiratory failure was documented on attendings admission note. Unless these diagnoses are carried through record they may not get [facility] coding department and their associated clinical severity will be lost. In your clinical opinion is this patient being managed for: ( ) Metabolic encephalopathy in setting of acute on chronic hypercapneic respiratory failure and obesity hypoventilation syndrome ( ) Not Agree Please clarify and document your clinical opinion in the progress notes and discharge summary. Terms such as "probable", "suspected", "likely", "questionable", "possible", or "still to be ruled out" are acceptable. IF IN AGREEMENT, YOU MUST DOCUMENT ABOVE DIAGNOSTIC STATEMENT IN DAILY PROGRESS NOTES AND DISCHARGE SUMMARY. This document is not part of the patient's record. Thank You, Rohan Sutton, CHAPO [phone]
[2016-06-22] MEDS: TIOTROPIUM BROMIDE 5 PUFF/90 MCG INH INH SCH (08:20)
[2016-06-22] MEDS: URSODIOL 300 MG CAP PO SCH ×2 (08:21→21:39)
[2016-06-22] MEDS: DULOXETINE (CYMBALTA) 30 MG CAP PO SCH ×2 (08:22→21:39)
[2016-06-22] MEDS: FUROSEMIDE 40 MG TAB PO SCH (08:22)
[2016-06-22] MEDS: ASPIRIN 81 MG ECTAB PO SCH (08:22)
[2016-06-22] MEDS: CeleBREX 200 MG CAP PO SCH (08:22)
[2016-06-22] MEDS: PANTOprazole SOD 40 MG TAB PO SCH (08:22)
[2016-06-22] MEDS: PREGABALIN 100 MG CAP PO SCH ×3 (08:25→21:34)
[2016-06-22 09:43] LABS: MEAN CELL VOLUME 83.9 fL (80-100); MEAN CORPUSCULAR HEMOGLOBIN 24.9 pg (25-34); MEAN CORPUSCULAR HGB CONC 29.7 g/dl (32-36); MEAN PLATELET VOLUME 11.3 fL (7.4-10.4); PLATELET COUNT 131 K/uL (130-400); RED BLOOD COUNT 4.65 M/uL (4.2-5.4); WHITE BLOOD COUNT 8.25 K/uL (4.8-10.8)
[2016-06-22 10:58] LABS: BUN/CREATININE RATIO 27.7 (10-20); CALCIUM 8.2 mg/dl (8.5-10.1); CREATININE 0.58 mg/dl (0.60-1.20)
[2016-06-22 11:19] LABS: POTASSIUM 2.9 mmol/L (3.5-5.1)
[2016-06-22] MEDS ORDERED: PHARMACY GLYCEMIC MGMT CONSULT PRN (12:17)
[2016-06-22] MEDS: MICONAZOLE NITRATE POWDER 43 GM EXT PRN (12:25)
[2016-06-22] MEDS ORDERED: POTASSIUM CHLORIDE 20 MEQ TABCR PO ONE (12:30)
--- NOTE | 2016-06-22 12:57 | PULMONARY CONSULTATION ---
DATE OF CONSULTATION: 06/22/2016 PULMONARY PROGRESS NOTE TIME: 10:05 a.m. HISTORY OF PRESENT ILLNESS: The patient was seen in room #219. She is a 65-year-old female who was brought to the Emergency Room on June 20 with severe lethargy. Her could not awaken the patient. She was found to have a severely abnormal blood gas with a pH of 7.15, pCO2 of 130, and a pO2 of 67. This was done with BiPAP in place. Since then she has significantly improved. She is now much more awake and alert. She is feeling better. She does not complain of shortness of breath. She cannot really recall if she was having trouble breathing at the time of admission. What she tells me is that for about a week prior to this she had had loose bowel movements. 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 She states that she ultimately was having 6 loose bowel movements per day. When she went back to the original dose on the atenolol, the diarrhea improved. The patient has a longstanding history of respiratory problems. She was diagnosed with asthma in the 1970s. Subsequently, she was tested and found to have sleep apnea. Review of her record suggests the sleep apnea diagnosis was probably in the late . She was on CPAP for many years. In 2012, she had a BiPAP titration and her pressures were changed to 12/5. She does wear the BiPAP nightly. Her most recent compliance data from a few months ago shows no significant sleep apnea at that BiPAP pressure with an AHI of only 2.1. Nonetheless, she is having respiratory failure. The patient states she is not coughing. She denies any sputum. She denies chills, fevers or sweats. She is not having chest pain. She is not the best historian, however. The patient did relate that she had increased abdominal pain when she was having the diarrhea. She also has chronic back pain. The patient is bedridden. She states that her has a lift machine that gets her out of bed into a rocking chair where she spends much of the day. Other than that she is not able to ambulate. She states this is since she had a stroke a few years ago. She has had marked obesity for many years. Her BMI is 55. PAST SURGICAL HISTORY: 1. Partial nephrectomy for benign disease. 2. Nasal septal surgery. 3. Tonsillectomy. PAST MEDICAL HISTORY: 1. Pancreatitis. 2. Anxiety. 3. Depression. 4. CVA. 5. DJD. 6. Diabetes type 2 with neuropathy. 7. Crohn disease. 8. Hyperlipidemia. 9. Hypertension. 10. Hypothyroidism. 11. Recurrent urinary tract infections. 12. Childbirth x2. 13. Chart lists a history of necrotizing fasciitis, but the patient denies any knowledge of this. SOCIAL HISTORY: The patient has never smoked and she does not drink alcohol. ALLERGIES: THERE ARE MANY LISTED ALLERGIES INCLUDIN. FLUOXETINE, WHICH SUPPOSEDLY GAVE ANAPHYLAXIS. 2. LANTUS/LEVEMIR WHICH REPORTEDLY GAVE HIVES AND THROAT SWELLING. 3. MOXIFLOXACIN. 4. NITROFURANTOIN. 5. PAROXETINE. 6. QUINOLONES INCLUDING AVELOX AND LEVAQUIN, REPORTEDLY GETTING HIVES. 7. AMITRIPTYLINE. 8. BUSPIRONE. 9. CITALOPRAM. 10. ESCITALOPRAM. 11. METHADONE 12. PENICILLINS. 13. SEROTONIN, THE UPTAKE INHIBITORS. 14. TRAZODONE. 15. VANCOMYCIN. 16. PREDNISONE, WHICH THE PATIENT INSISTS SHE CANNOT TAKE BUT SHE CAN TAKE IV STEROIDS. 17. AZITHROMYCIN. 18. CARBAMAZEPINE. 19. CEFEPIME. 20. CEFTRIAXONE LISTED, BUT WAS GIVEN THIS ADMISSION WITHOUT DIFFICULTY. 21. CIPROFLOXACIN. 22. SERTRALINE. 23. SITAGLIPTIN. 24. TETRACYCLINES. 25. SULFA. 26. FEXOFENADINE. 27. TIZANIDINE. MEDICATIONS: At home: 1. Aspirin 81 mg daily. 2. Atenolol 25 mg daily. 3. Baclofen 20 mg t.i.d. 4. Celecoxib 200 mg daily. 5. Duloxetine 30 mg b.i.d. 6. Furosemide 40 mg daily. 7. NPH 70 units t.i.d. 8. Levothyroxine 100 mcg daily. 9. Lorazepam 2 mg at bedtime. 10. Metformin 500 mg b.i.d. 11. Montelukast 10 mg daily. 12. O2 4 liters during the day and with BiPAP at night. 13. Pantoprazole 40 mg daily. 14. Lyrica 200 mg t.i.d. 15. Probiotic. 16. Simvastatin 20 mg at bedtime. 17. Tiotropium 1 daily. 18. Ursodiol 600 mg b.i.d. 19. Ventolin HFA p.r.n. 20. Nebs with albuterol p.r.n. 21. Hydroxyzine p.r.n. 22. Lactulose p.r.n. 23. Lorazepam 1-2 mg b.i.d. p.r.n. anxiety. 24. Ondansetron a p.r.n. 25. MiraLax p.r.n. 26. Silvadene p.r.n. 27. Sumatriptan 100 mg p.r.n. FAMILY HISTORY: Mother living, age 97, dementia, hypertension, diabetes. Father , had rheumatoid arthritis. Children are alive and well. REVIEW OF SYSTEMS: The patient is not the best historian. She seemed to have some confusion slightly. In addition to the problems mentioned above, she complains of hip pain and back pain. She complains of peripheral edema. Energy level is poor. She does not get out of the hospital much at all. She has missed many doctors' appointments. She is now changing primary physicians. Otherwise, review of systems is negative. Ten systems were reviewed. PHYSICAL EXAMINATION: GENERAL: The patient is a 65-year-old female who was cooperative, alert and oriented but with just slight confusion. She was in no distress. BMI is 55. Weight is 164.1 kilogram. HEENT: Pupils were reactive to light. She appears to have some crusting on the eyelids. She states she has this daily. Nasal cannula oxygen was in place. Mouth exam showed a Mallampati grade IV pharynx. She has dentures on top and teeth on the bottom which are in relatively poor repair. NECK: She has a huge neck. No lymph nodes were palpable. CHEST: Showed diminished excursions. HEART: Cardiac rhythm was regular. The cardiac rate was 72. Blood pressure is 121/62. LUNGS: Lung rojas revealed severely diminished breath sounds. There was some wheezing heard anteriorly and more towards the upper airway. Oxygen saturation was 91% on 4 liters, at the time of my exam. ABDOMEN: Obese. Bowel sounds were active. There was no tenderness to palpation, masses or organomegaly. EXTREMITIES: Revealed +2 edema in the lower extremity just above the ankles bilaterally. She has minimal movement of her legs. There seemed to be some spasticity, especially on the right leg. The peripheral pulses were strong. IMAGING DATA: The patient's chest x-ray on admission shows cardiomegaly with mild pulmonary vascular congestion. There is increased opacifications in both lower lung rojas which could be related to atelectasis, infection, or focal pulmonary edema. I think that is least likely of the 3. This reflects worsening of the aeration of the lower lung rojas compared with a prior x-ray done 03/08/2016. LABORATORY DATA: She has had subsequent blood gases. The most recent done on the morning of June 21 showed a pH of 7.30 with a pCO2 of 95 and a pO2 of 128, done on 50% oxygen. Electrolytes yesterday showed sodium 146, potassium 4.7, chloride 97, bicarbonate 41. BUN was 14 with a creatinine of 0.5. Blood sugar was 222. White count is 8.25 today. It had been 11.89 on admission. Hemoglobin was 11.6. Platelets were 131,000. INR was 1 and PTT was 29.1. Urinalysis showed 3+ blood, 5-10 wbc's, greater than 30 rbc's, +2 bacteria in the urine. Urine culture reports Enterococcus faecalis. This is sensitive to numerous antibiotics but was not tested against ceftriaxone. Blood cultures thus far are negative. Electrocardiogram showed a sinus tachycardia at 105 per minute. There is a left axis deviation. There were nonspecific ST and T-wave changes seen. IMPRESSION: 1. Respiratory failure - acute on chronic with hypercarbia and hypoxia. 2. Obesity hypoventilation syndrome. 3. Obstructive sleep apnea. 4. Asthma. 5. Lower lung field opacification - questionable pneumonia versus atelectasis. 6. Urinary tract infection with Enterococcus. COMMENTS: The patient looks much better than expected considering what her blood gases were. She has made a nice recovery. Obviously her baseline pCO2 remains very high. She was still acidotic as of yesterday with a pCO2 of 95. I reviewed her prior sleep studies. Her BiPAP pressure in 2012 was 12/5. I did call [facility]. According to the record, she is still on 12/5. In all likelihood with her respiratory failure even though the prior BiPAP pressures were adequate for sleep apnea, we likely should increase her BiPAP pressures somewhat. In addition, we probably should try and adjust her oxygen saturations to keep them a little lower in order to stimulate ventilation. She would be adequately treated with saturations between 86% and 90% which may allow stimulation for increased ventilation. She is on ceftriaxone currently, which she has tolerated in the past without difficulty. She is receiving DuoNebs q.i.d. and p.r.n. She actually looks as noted above, better than expected considering everything. RECOMMENDATIONS: 1. Increase the BiPAP to 14/7. This may mean that we would need to use our machine rather than her machine. If she tolerated this and did well with it, then her own machine could be adjusted at the time of discharge. 2. Would suggest keeping her saturations between 86-90%. 3. Otherwise, agree with current therapy.
[2016-06-22] MEDS ORDERED: INSULIN HUMAN NPH SC ONE (13:15)
--- NOTE | 2016-06-22 15:07 | Pharmacy Progress Note ---
Glycemic Control Intl Consult Date of Service June 22, 2016. Scope Glycemic Pharmacist consulted by Dr. Rodriguez on 06/22/16 for glycemic control and to write orders per [facility] inpatient glycemic control protocol Objective Weight (Kilograms): 164.100 Accuchecks BSG (last 24hrs): Test 06/21/16 16:09 06/21/16 20:13 06/22/16 06:44 06/22/16 09:25 Bedside Glucose 230 mg/dl (70-90) 253 mg/dl (70-90) 212 mg/dl (70-90) Random Glucose 280 mg/dl (70-99) Test 06/22/16 11:21 Bedside Glucose 309 mg/dl (70-90) Laboratory Data (last 24hrs) Test 06/22/16 09:25 Anion Gap 2.0 mmol/L BUN/Creatinine Ratio 27.7 Blood Urea Nitrogen 16 mg/dl Creatinine 0.58 mg/dl Potassium Level 2.9 mmol/L Sodium Level 142 mmol/L White Blood Count 8.25 K/uL HbA1c Test 06/20/16 15:46 Hemoglobin A1c 6.2 % (4.5-5.6) H Recent Pertinent Medications Outpatient Anti-diabetic Regimen: * NPH 70 units TIDM, Metformin 500mg BIDM * A1c = 6.2 % from 06/20/16 Risk Factors for Insulin Resistance: * Infection: ?PNA/?UTI: Rocephin IV * Diet: DM2 Assessment & Plan ASSESSMENT: * ADA & AACE recommend a goal blood sugar range 140-180 mg/dl for the majority of critically ill & non-critically ill patients. However, more stringent targets may be selected in individual cases. Initial: * 65 yo female admitted with respiratory failure. Pt is known to the pharmacy glycemic service from past admissions. * Of note, the pt has a recorded h/o allergy to certain insulins, namely Lantus and Levemir. No basal insulin presently ordered. From past admissions and per med rec the pt does well on NPH insulin. So will start NPH for long-acting insulin. Also, the pt has been receiving Novolog ACHS with no issues this admission (has also received in past admissions with no incident). * During the past 24 hours the pt's BSGs have been 230-309 mg/dl indicating deficient basal insulin. I would like to get NPH insulin on board, however, it is the afternoon already. Therefore, will order a reduced dose of NPH then begin dosing per weight based + past admission data. * Also, will tighten Novolog parameters for additional prandial coverage which is also supported by past admission data and weight based dosing. * Add overnight check for additional coverage in pt with persistently elevated BSGs. PLAN FOR INPATIENT GLYCEMIC CONTROL: * START NPH 20 units SQ x 1 this afternoon then begin 40 units SQ BIDM * Novolog ACHS + 02 * Tighten correction factor to 12 mg/dl/unit * Tighten carb ratio to 1 unit per 4 grams CHO consumed * Narrow goal range to Low 110 mg/dL - High 140 mg/dL * Please note that the plan above was derived based on current level of insulin resistance and hospital stress. These recommendations are appropriate for inpatient admission only. Plan of care upon discharge will need to be reassessed to avoid potential outpatient hypo/hyperglycemia. Thank you.
--- NOTE | 2016-06-22 15:56 | Progress Note ---
Medicine Progress Note Date & Time of Visit: June 22, 2016 at 15:40. Subjective Pt was seen and examined Lying in bed with no distress Pt said that she feels fine she denies any chest pain, palpitation, dizziness and sob Objective Last 8 Hrs Date Time Temp Pulse Resp B/P Pulse Ox O2 Delivery O2 Flow Rate FiO2 06/22/16 15:31 36.9 81 22 113/72 94 Nasal Cannula 4.0 06/22/16 14:27 84 16 97 Nasal Cannula 4.0 06/22/16 12:01 36.7 86 16 138/76 98 06/22/16 12:00 98 Nasal Cannula 4.0 06/22/16 11:08 67 16 97 Nasal Cannula 4.0 06/22/16 08:00 95 Nasal Cannula 4.0 06/22/16 07:58 36.8 72 18 121/62 95 Room Air Physical Exam: General- No acute distress, Obese Head- atraumatic Eyes- PERRL, EOMI ENT- oropharynx clear Neck- supple, no JVD Lungs- No wheezing, No crackles Heart- regular rhythm; no murmur Abdomen- normal bowel sounds, soft, nontender Extremities- no calf tenderness Neuro- alert, oriented x 3; PERRL, EOMI; no facial palsy Skin- warm & dry Laboratory Results: Last 24 Hours Test 06/21/16 16:09 06/21/16 20:13 06/22/16 06:44 06/22/16 09:25 Bedside Glucose 230 mg/dl 253 mg/dl 212 mg/dl White Blood Count 8.25 K/uL Red Blood Count 4.65 M/uL Hemoglobin 11.6 g/dL Hematocrit 39.0 % Mean Corpuscular Volume 83.9 fL Mean Corpuscular Hemoglobin 24.9 pg Mean Corpuscular Hemoglobin Concent 29.7 g/dl RDW Standard Deviation 50.2 fL RDW Coefficient of Variation 16.3 % Platelet Count 131 K/uL Mean Platelet Volume 11.3 fL Sodium Level 142 mmol/L Potassium Level 2.9 mmol/L Chloride Level 94 mmol/L Carbon Dioxide Level 46 mmol/L Anion Gap 2.0 mmol/L Blood Urea Nitrogen 16 mg/dl Creatinine 0.58 mg/dl Est Creatinine Clear Calc Drug Dose 156.6 ml/min Estimated GFR () 111.3 Estimated GFR (Non- 96.1 BUN/Creatinine Ratio 27.7 Random Glucose 280 mg/dl Calcium Level 8.2 mg/dl Test 06/22/16 11:21 Bedside Glucose 309 mg/dl Assessment & Plan CHRONIC HYPERCAPNIC RESPIRATORY FAILURE OBESITY HYPOVENTILATION SYNDROME On admission presented with lethargy and decreased responsiveness at home; h/o chronic resp failure on chronic O2 at 3L and BIPAP at HS and PRN during the day ABG on admission pH 7.14, pCO2 127, bicarb 43 suggestive of respiratory acidosis CXR showed Bilateral mid and lower lung zone pulmonary airspace opacities Afebrile, mild leukocytosis On IV rocephin day 2 and continue Duoneb prn incentive spirometry Pulmonology consulted Case discussed with Dr. Bennett that recommended to adjust bipap setting to 14/7 and to keep oxygen saturation btw 86-90% ABNORMAL UA WITH H/O RECURRENT UTI pt had dysuria 2 days ago; h/o recurrent UTI. pt is afebrile with leukocytosis >11k UA 3+ bacteria and urine culture -streptococcus empirically treat with Rocephin HYPOKALEMIA K replaced continue monitor BMP DM TYPE 2 Elevated BS -A1C 6.2 (06/20/16) -hold metformin -start ISS -Pharmacy consulted for glycemic control HYPERTENSION -BP is stable -cont atenolol -monitor ASTHMA -no wheezing on exam -cont home Spiriva and PRN nebs H/O CVA -cont ASA and statin DEPRESSION/ ANXIETY -cont Cymbalta -cont Ativan PRN HYPOTHYROIDISM -cont levothyroxine GERD -cont PPI MORBID OBESITY, BMI 56.2 -PT/OT consults DVT PROPHYLAXIS -Subq Lovenox CODE STATUS FULL CODE Consultants: Pulmonology Current Inpatient Medications: Current Inpatient Medications Medications (Trade) Dose Ordered Sig/Keith Route Start Time Stop Time Status Last Admin Dose Admin Enoxaparin Sodium (Lovenox Inj) 40 mg DAILY@2100 SC 06/20/16 21:00 07/20/16 20:59 06/21/16 21:28 40 MG Acetaminophen (Tylenol Tab) 650 mg Q4H PRN PO 06/20/16 18:30 07/20/16 18:29 06/22/16 08:25 650 MG Ondansetron HCl (Zofran Inj) 4 mg Q6H PRN IV 06/20/16 18:30 07/20/16 18:29 Nitroglycerin 0.4 mg 0.4 mg UD PRN SL 06/20/16 18:30 07/20/16 18:29 Ceftriaxone Sodium/Dextrose (Rocephin Inj/ Dextrose Add-Jean 50ML) 50 ml @ 100 mls/hr Q24H IV 06/21/16 17:00 06/26/16 16:59 06/21/16 16:53 100 MLS/HR Insulin Aspart (novoLOG ASPART) SLIDING SCALE If C... ACHS SC 06/20/16 21:00 07/20/16 20:59 06/22/16 11:47 20 UNITS Glucose (Glucose 40% Gel) 15-30 GRAMS 15 GRAMS... UD PRN PO 06/20/16 18:30 07/20/16 18:29 Glucose (Glucose Chew Tab) 4-8 Tablets 4 Tabl... UD PRN PO 06/20/16 18:30 07/20/16 18:29 Dextrose (Dextrose 50% 50ML Syringe) 25-50ML OF 50% DW IV FOR... UD PRN IV 06/20/16 18:30 07/20/16 18:29 Glucagon (Glucagon Inj) 1 mg UD PRN SQ 06/20/16 18:30 07/20/16 18:29 Albuterol (Ventolin Hfa Inhaler) 2 puffs QID PRN INH 06/20/16 18:45 07/20/16 18:44 Albuterol Sulfate (Ventolin 0.083% 2.5MG/3ML Neb) 2.5 mg Q6H PRN INH 06/20/16 18:45 07/20/16 18:44 Aspirin (Ecotrin Tab) 81 mg DAILY PO 06/21/16 09:00 07/21/16 08:59 06/22/16 08:22 81 MG Atenolol (Tenormin Tab) 25 mg DAILY PO 06/21/16 09:00 07/21/16 08:59 06/22/16 08:22 25 MG Celecoxib (CeleBREX CAP) 200 mg DAILY PO 06/21/16 09:00 07/21/16 08:59 06/22/16 08:22 200 MG Duloxetine HCl (Cymbalta Cap) 30 mg BID PO 06/20/16 21:00 07/20/16 20:59 06/22/16 08:22 30 MG Furosemide (Lasix Tab) 40 mg QAM PO 06/21/16 09:00 07/21/16 08:59 06/22/16 08:22 40 MG Hydroxyzine HCl (Vistaril Tab) 25 mg Q6H PRN PO 06/20/16 18:45 07/20/16 18:44 Lactulose (Chronulac Syrup) 10 gm DAILY PRN PO 06/20/16 18:45 07/20/16 18:44 Levothyroxine Sodium (Synthroid Tab) 100 mcg DAILYBB PO 06/21/16 06:00 07/21/16 05:59 06/22/16 05:27 100 MCG Lorazepam (Ativan Tab) 2 mg HSZ PO 06/20/16 22:00 07/20/16 21:59 06/21/16 21:40 2 MG Lorazepam (Ativan Tab) 1 mg BID PRN PO 06/20/16 18:45 07/20/16 18:44 Miconazole Nitrate (Desenex Powder) 1 appln BID PRN EXT 06/20/16 18:45 07/20/16 18:44 06/22/16 12:25 1 APPLN Montelukast Sodium (Singulair Tab) 10 mg HS PO 06/20/16 21:00 07/20/16 20:59 06/21/16 21:25 10 MG Nystatin (Mycostatin Crm) 1 appln BID PRN EXT 06/20/16 18:45 07/20/16 18:44 06/21/16 21:58 1 APPLN Pantoprazole Sodium (Protonix Tab) 40 mg QAM PO 06/21/16 09:00 07/21/16 08:59 06/22/16 08:22 40 MG Pregabalin (Lyrica Cap) 200 mg TID PO 06/20/16 21:00 07/20/16 20:59 06/22/16 14:19 200 MG Silver Sulfadiazine (Silvadene Crm 1% 400GM Jar) 1 appln DAILY PRN EXT 06/20/16 18:45 07/20/16 18:44 Simvastatin (Zocor Tab) 20 mg HS PO 06/20/16 21:00 07/20/16 20:59 06/21/16 21:27 20 MG Sumatriptan Succinate (Imitrex Tab) 100 mg UD PRN PO 06/20/16 18:45 07/20/16 18:44 Tiotropium [place] (Spiriva Handihaler Inhaler) 1 puff QAM INH 06/21/16 09:00 07/21/16 08:59 06/22/16 08:20 1 PUFF Triamcinolone Acetonide (Kenalog 0.5% Crm) 1 appln BID PRN EXT 06/20/16 18:45 07/20/16 18:44 Ursodiol (Actigall Cap) 600 mg BID PO 06/20/16 21:00 07/20/16 20:59 06/22/16 08:21 600 MG Polyethylene (Miralax Powder Packet) 17 gm BID PRN PO 06/20/16 18:45 07/20/16 18:44 Lactobacillus Acidophilus (Floranex Tab) 4 tab HS PO 06/20/16 21:00 07/20/16 20:59 06/21/16 21:25 4 TAB Albuterol/ Ipratropium (Duoneb) 3 ml QIDR INH 06/20/16 20:00 07/20/16 19:59 06/22/16 14:27 3 ML Miscellaneous Information (Consult Glycemic Management Pharmacy) 1 ea UD PRN N/A 06/22/16 12:17 07/22/16 12:16 Insulin Aspart (novoLOG ASPART) SLIDING SCALE If C... 0200 SC 06/23/16 02:00 07/23/16 01:59 Insulin Human NPH (novoLIN-N NPH) 40 units BIDM SC 06/22/16 16:45 07/22/16 16:44
[2016-06-22] MEDS: CEFTRIAXONE SOD INJ 1 GM in DEXTROSE 5% ADD-VANTAGE 50ML 50 ML IV SCH (17:02)
[2016-06-22] MEDS: INSULIN HUMAN NPH SC SCH (17:10)
[2016-06-22] MEDS: hydrOXYzine HCL 25 MG TAB PO PRN (17:51)
[2016-06-22] MEDS: MONTELUKAST SOD 10 MG TAB PO SCH (21:35)
[2016-06-22] MEDS: LORAZEPAM 2 MG TAB PO SCH (21:35)
[2016-06-22] MEDS: SIMVASTATIN 20 MG TAB PO SCH (21:35)
[2016-06-22] MEDS: ENOXAPARIN 40 MG/0.4 ML SYR SC SCH (21:38)
[2016-06-22] MEDS: LACTOBACILLUS ACIDOPHILUS (FLORANEX) TAB PO SCH (21:41)
[2016-06-23] VITALS (14 sets, daily range): BP systolic 109–144; BP diastolic 63–73; PULSE 76–108; TEMP 36.5–37.3; O2SAT 90–96
[2016-06-23] MEDS: INSULIN ASPART 100 UNITS/ML 3 ML PEN SC SCH ×5 (02:10→21:01)
[2016-06-23] MEDS: LEVOTHYROXINE 100 MCG TAB PO SCH (06:10)
[2016-06-23] MEDS: ALBUT/IPRATROP 3MG/0.5MG NEB 3 ML VIAL INH SCH ×4 (07:08→19:42)
[2016-06-23 07:15] LABS: HEMATOCRIT 42.6 % (37-47); MEAN CELL VOLUME 83.4 fL (80-100); MEAN CORPUSCULAR HEMOGLOBIN 24.9 pg (25-34); MEAN CORPUSCULAR HGB CONC 29.8 g/dl (32-36); MEAN PLATELET VOLUME 11.1 fL (7.4-10.4); PLATELET COUNT 142 K/uL (130-400); RED BLOOD COUNT 5.11 M/uL (4.2-5.4); WHITE BLOOD COUNT 8.26 K/uL (4.8-10.8)
[2016-06-23] MEDS: INSULIN HUMAN NPH SC SCH ×3 (07:40→17:45)
[2016-06-23 08:20] LABS: CREATININE 0.51 mg/dl (0.60-1.20)
[2016-06-23 08:21] LABS: BUN/CREATININE RATIO 24.1 (10-20); CALCIUM 8.5 mg/dl (8.5-10.1); POTASSIUM 2.8 mmol/L (3.5-5.1)
[2016-06-23] MEDS: URSODIOL 300 MG CAP PO SCH ×2 (08:52→21:03)
[2016-06-23] MEDS: TIOTROPIUM BROMIDE 5 PUFF/90 MCG INH INH SCH (08:52)
[2016-06-23] MEDS: CeleBREX 200 MG CAP PO SCH (08:52)
[2016-06-23] MEDS: DULOXETINE (CYMBALTA) 30 MG CAP PO SCH ×2 (08:53→21:03)
[2016-06-23] MEDS: ASPIRIN 81 MG ECTAB PO SCH (08:53)
[2016-06-23] MEDS: FUROSEMIDE 40 MG TAB PO SCH (08:54)
[2016-06-23] MEDS: PANTOprazole SOD 40 MG TAB PO SCH (08:54)
[2016-06-23] MEDS: PREGABALIN 100 MG CAP PO SCH ×3 (08:54→21:11)
[2016-06-23] MEDS ORDERED: POTASSIUM CHLORIDE 20 MEQ TABCR PO ONE ×2 (09:00→22:00)
[2016-06-23] MEDS: POTASSIUM CHLR 10 MEQ / WTR 10 MEQ in PREMIXED WATER 100 ML IV SCH ×2 (09:12→11:00)
[2016-06-23] MEDS: MICONAZOLE NITRATE POWDER 43 GM EXT PRN (09:12)
--- NOTE | 2016-06-23 13:52 | PULMONARY PROGRESS NOTE ---
DATE: 06/23/2016 PULMONARY PROGRESS NOTE TIME: 1:30 p.m. SUBJECTIVE: The patient feels well. She states she did not have any problems with the BiPAP overnight. It had been ordered to adjust her pressures. We are trying to confirm if indeed that pressure change was made. She states she did not sleep well because people are constantly coming in at night. She denies significant shortness of breath, cough or sputum production. Her was present with her during this examination. OBJECTIVE: GENERAL: The patient appeared comfortable. VITAL SIGNS: Temperature is 36.5. She has not had any significant fevers since she had a temperature of 37.8, more than 2 days ago. Heart rate is 92 per minute. Blood pressure 133/63. Respiratory rate was 20 breaths per minute. Saturation was 95% on 0.5 liter nasal cannula. NECK: She has a large neck. LUNGS: Lung rojas were difficult to listen to because of the patient's obesity. She did turn on each side for me and the breath sounds were fairly well heard. EXTREMITIES: Still show some lower extremity edema. LABORATORY DATA: Chemistry today showed a sodium 142, potassium 2.8, chloride 95, bicarbonate 44. The BUN is 12 with a creatinine of 0.51. Blood sugar was as high as 273. IMPRESSIONS: 1. Respiratory failure - acute on chronic hypoxia and hypercarbia - improved. 2. Obesity hypoventilation syndrome. 3. Obstructive sleep apnea. 4. Asthma. COMMENTS AND RECOMMENDATIONS: The patient seems clinically improved. We are trying to verify with respiratory if indeed she got the higher pressure last night. Case was discussed with Dr. Rodriguez. I believe the patient should wait at least 1 more day. I would like to have a recheck blood gas tomorrow morning, perhaps at about 9:00 a.m. after she is off the BiPAP for a while. We will consider repeating a chest x-ray as well in light of the hypoventilatory changes or infiltrates noted previously.
--- NOTE | 2016-06-23 14:46 | Pharmacy Progress Note ---
Glycemic: Assessment & Plan Date of Service June 23, 2016. Assessment & Plan Outpatient Anti-diabetic Regimen: * NPH 70 units TIDM, Metformin 500mg BIDM * A1c = 6.2 % from 06/20/16 ASSESSMENT: * ADA & AACE recommend a goal blood sugar range 140-180 mg/dl for the majority of critically ill & non-critically ill patients. However, more stringent targets may be selected in individual cases. 06/23/16: * Patient remains hyperglycemic today. Will resume TID NPH dosing, as patient takes at home, with reduced doses for now. * Will continue to adjust NPH dosing until BSGs stabilize, and consider adjusting Novolog parameters if necessary tomorrow. 06/22/16 * 65 yo female admitted with respiratory failure. Pt is known to the pharmacy glycemic service from past admissions. * Of note, the pt has a recorded h/o allergy to certain insulins, namely Lantus and Levemir. No basal insulin presently ordered. From past admissions and per med rec the pt does well on NPH insulin. So will start NPH for long-acting insulin. Also, the pt has been receiving Novolog ACHS with no issues this admission (has also received in past admissions with no incident). * During the past 24 hours the pt's BSGs have been 230-309 mg/dl indicating deficient basal insulin. I would like to get NPH insulin on board, however, it is the afternoon already. Therefore, will order a reduced dose of NPH then begin dosing per weight based + past admission data. * Also, will tighten Novolog parameters for additional prandial coverage which is also supported by past admission data and weight based dosing. * Add overnight check for additional coverage in pt with persistently elevated BSGs. PLAN FOR INPATIENT GLYCEMIC CONTROL: * NPH 40 units SQ TIDM * Novolog ACHS + 02 * Tighten correction factor to 12 mg/dl/unit * Tighten carb ratio to 1 unit per 4 grams CHO consumed * Narrow goal range to Low 110 mg/dL - High 140 mg/dL * Please note that the plan above was derived based on current level of insulin resistance and hospital stress. These recommendations are appropriate for inpatient admission only. Plan of care upon discharge will need to be reassessed to avoid potential outpatient hypo/hyperglycemia. Thank you.
--- NOTE | 2016-06-23 17:09 | Progress Note ---
Medicine Progress Note Date & Time of Visit: June 23, 2016 at 16:56. Subjective Pt was seen and examined Lying in bed with no distress Pt said that last night she did not sleep well because there was to much nose She said that her breathing is good I spoke to respiratory therapist, they did not change the bipap setting denies any fever, palpitation, dizziness Objective Last 8 Hrs Date Time Temp Pulse Resp B/P Pulse Ox O2 Delivery O2 Flow Rate FiO2 06/23/16 16:00 Nasal Cannula 4.0 06/23/16 15:56 76 16 93 Nasal Cannula 4.0 06/23/16 15:20 36.9 77 22 123/73 93 Nasal Cannula 4.0 06/23/16 12:00 Nasal Cannula 4.0 06/23/16 11:53 36.5 92 18 133/63 95 06/23/16 11:37 86 16 90 Nasal Cannula 4.0 06/23/16 09:08 108 135/69 Physical Exam: General- No acute distress, Obese Head- atraumatic Eyes- PERRL, EOMI ENT- oropharynx clear Neck- supple, no JVD Lungs- No wheezing, No crackles, poor air entry Heart- regular rhythm; no murmur Abdomen- normal bowel sounds, soft, nontender Extremities- no calf tenderness Neuro- alert, oriented x 3; PERRL, EOMI; no facial palsy Skin- warm & dry Laboratory Results: Last 24 Hours Test 06/22/16 20:06 06/23/16 02:06 06/23/16 06:54 06/23/16 06:57 Bedside Glucose 250 mg/dl 156 mg/dl 176 mg/dl White Blood Count 8.26 K/uL Red Blood Count 5.11 M/uL Hemoglobin 12.7 g/dL Hematocrit 42.6 % Mean Corpuscular Volume 83.4 fL Mean Corpuscular Hemoglobin 24.9 pg Mean Corpuscular Hemoglobin Concent 29.8 g/dl RDW Standard Deviation 50.0 fL RDW Coefficient of Variation 16.4 % Platelet Count 142 K/uL Mean Platelet Volume 11.1 fL Sodium Level 142 mmol/L Potassium Level 2.8 mmol/L Chloride Level 95 mmol/L Carbon Dioxide Level 44 mmol/L Anion Gap 3.0 mmol/L Blood Urea Nitrogen 12 mg/dl Creatinine 0.51 mg/dl Est Creatinine Clear Calc Drug Dose 176.7 ml/min Estimated GFR () 116.1 Estimated GFR (Non- 100.2 BUN/Creatinine Ratio 24.1 Random Glucose 184 mg/dl Calcium Level 8.5 mg/dl Magnesium Level 2.0 mg/dl Test 06/23/16 11:32 06/23/16 16:04 Bedside Glucose 273 mg/dl 240 mg/dl Assessment & Plan CHRONIC HYPERCAPNIC RESPIRATORY FAILURE OBESITY HYPOVENTILATION SYNDROME On admission presented with lethargy and decreased responsiveness at home; h/o chronic resp failure on chronic O2 at 3L and BIPAP at HS and PRN during the day ABG on admission pH 7.14, pCO2 127, bicarb 43 suggestive of respiratory acidosis CXR showed Bilateral mid and lower lung zone pulmonary airspace opacities Afebrile, mild leukocytosis On IV rocephin day 3 and continue Duoneb prn Pt said that the Rocephin gives her tremor? incentive spirometry Pulmonology consulted Case discussed with Dr. Bennett Bipap setting was changed to 14/7 yesterday, but unfortunately pt used her machine and RT cannot make any change on pt bipap. Will use the hospital bipap machine tonight with the setting 14/7 Keep oxygen saturation btw 86-90% Will check ABG in am with the new setting ABNORMAL UA WITH H/O RECURRENT UTI pt had dysuria 2 days ago; h/o recurrent UTI. pt is afebrile with leukocytosis >11k UA 3+ bacteria and urine culture -streptococcus empirically treat with Rocephin METABOLIC ENCEPHALOPATHY/CO2 NARCOSIS Back to her baseline Resolved HYPOKALEMIA K 2.9 today, K replaced continue monitor BMP DM TYPE 2 Elevated BS -A1C 6.2 (06/20/16) -hold metformin -start ISS -Pharmacy consulted for glycemic control HYPERTENSION -BP is stable -cont atenolol -monitor ASTHMA -no wheezing on exam -cont home Spiriva and PRN nebs H/O CVA -cont ASA and statin DEPRESSION/ ANXIETY -cont Cymbalta -cont Ativan PRN HYPOTHYROIDISM -cont levothyroxine GERD -cont PPI MORBID OBESITY, BMI 56.2 -PT/OT consults DVT PROPHYLAXIS -Subq Lovenox CODE STATUS FULL CODE Consultants: Pulmonology Current Inpatient Medications: Current Inpatient Medications Medications (Trade) Dose Ordered Sig/Keith Route Start Time Stop Time Status Last Admin Dose Admin Enoxaparin Sodium (Lovenox Inj) 40 mg DAILY@2100 SC 06/20/16 21:00 07/20/16 20:59 06/22/16 21:38 40 MG Acetaminophen (Tylenol Tab) 650 mg Q4H PRN PO 06/20/16 18:30 07/20/16 18:29 06/22/16 08:25 650 MG Ondansetron HCl (Zofran Inj) 4 mg Q6H PRN IV 06/20/16 18:30 07/20/16 18:29 Nitroglycerin 0.4 mg 0.4 mg UD PRN SL 06/20/16 18:30 07/20/16 18:29 Ceftriaxone Sodium/Dextrose (Rocephin Inj/ Dextrose Add-[place] 50ML) 50 ml @ 100 mls/hr Q24H IV 06/21/16 17:00 06/26/16 16:59 06/22/16 17:02 100 MLS/HR Insulin Aspart (novoLOG ASPART) SLIDING SCALE If C... ACHS SC 06/20/16 21:00 07/20/16 20:59 06/23/16 11:45 24 UNITS Glucose (Glucose 40% Gel) 15-30 GRAMS 15 GRAMS... UD PRN PO 06/20/16 18:30 07/20/16 18:29 Glucose (Glucose Chew Tab) 4-8 Tablets 4 Tabl... UD PRN PO 06/20/16 18:30 07/20/16 18:29 Dextrose (Dextrose 50% 50ML Syringe) 25-50ML OF 50% DW IV FOR... UD PRN IV 06/20/16 18:30 07/20/16 18:29 Glucagon (Glucagon Inj) 1 mg UD PRN SQ 06/20/16 18:30 07/20/16 18:29 Albuterol (Ventolin Hfa Inhaler) 2 puffs QID PRN INH 06/20/16 18:45 07/20/16 18:44 Albuterol Sulfate (Ventolin 0.083% 2.5MG/3ML Neb) 2.5 mg Q6H PRN INH 06/20/16 18:45 07/20/16 18:44 Aspirin (Ecotrin Tab) 81 mg DAILY PO 06/21/16 09:00 07/21/16 08:59 06/23/16 08:53 81 MG Atenolol (Tenormin Tab) 25 mg DAILY PO 06/21/16 09:00 07/21/16 08:59 06/23/16 09:12 25 MG Celecoxib (CeleBREX CAP) 200 mg DAILY PO 06/21/16 09:00 07/21/16 08:59 06/23/16 08:52 200 MG Duloxetine HCl (Cymbalta Cap) 30 mg BID PO 06/20/16 21:00 07/20/16 20:59 06/23/16 08:53 30 MG Furosemide (Lasix Tab) 40 mg QAM PO 06/21/16 09:00 07/21/16 08:59 06/23/16 08:54 40 MG Hydroxyzine HCl (Vistaril Tab) 25 mg Q6H PRN PO 06/20/16 18:45 07/20/16 18:44 06/22/16 17:51 25 MG Lactulose (Chronulac Syrup) 10 gm DAILY PRN PO 06/20/16 18:45 07/20/16 18:44 Levothyroxine Sodium (Synthroid Tab) 100 mcg DAILYBB PO 06/21/16 06:00 07/21/16 05:59 06/23/16 06:10 100 MCG Lorazepam (Ativan Tab) 2 mg HSZ PO 06/20/16 22:00 07/20/16 21:59 06/22/16 21:35 2 MG Lorazepam (Ativan Tab) 1 mg BID PRN PO 06/20/16 18:45 07/20/16 18:44 Miconazole Nitrate (Desenex Powder) 1 appln BID PRN EXT 06/20/16 18:45 07/20/16 18:44 06/23/16 09:12 1 APPLN Montelukast Sodium (Singulair Tab) 10 mg HS PO 06/20/16 21:00 07/20/16 20:59 06/22/16 21:35 10 MG Nystatin (Mycostatin Crm) 1 appln BID PRN EXT 06/20/16 18:45 07/20/16 18:44 06/21/16 21:58 1 APPLN Pantoprazole Sodium (Protonix Tab) 40 mg QAM PO 06/21/16 09:00 07/21/16 08:59 06/23/16 08:54 40 MG Pregabalin (Lyrica Cap) 200 mg TID PO 06/20/16 21:00 07/20/16 20:59 06/23/16 14:29 200 MG Silver Sulfadiazine (Silvadene Crm 1% 400GM Jar) 1 appln DAILY PRN EXT 06/20/16 18:45 07/20/16 18:44 Simvastatin (Zocor Tab) 20 mg HS PO 06/20/16 21:00 07/20/16 20:59 06/22/16 21:35 20 MG Sumatriptan Succinate (Imitrex Tab) 100 mg UD PRN PO 06/20/16 18:45 07/20/16 18:44 Tiotropium [place] (Spiriva Handihaler Inhaler) 1 puff QAM INH 06/21/16 09:00 07/21/16 08:59 06/23/16 08:52 1 PUFF Triamcinolone Acetonide (Kenalog 0.5% Crm) 1 appln BID PRN EXT 06/20/16 18:45 07/20/16 18:44 Ursodiol (Actigall Cap) 600 mg BID PO 06/20/16 21:00 07/20/16 20:59 06/23/16 08:52 600 MG Polyethylene (Miralax Powder Packet) 17 gm BID PRN PO 06/20/16 18:45 07/20/16 18:44 Lactobacillus Acidophilus (Floranex Tab) 4 tab HS PO 06/20/16 21:00 07/20/16 20:59 06/22/16 21:41 4 TAB Albuterol/ Ipratropium (Duoneb) 3 ml QIDR INH 06/20/16 20:00 07/20/16 19:59 06/23/16 15:55 3 ML Miscellaneous Information (Consult Glycemic Management Pharmacy) 1 ea UD PRN N/A 06/22/16 12:17 07/22/16 12:16 Insulin Aspart (novoLOG ASPART) SLIDING SCALE If C... 0200 SC 06/23/16 02:00 07/23/16 01:59 06/23/16 02:10 2 UNITS Insulin Human NPH (novoLIN-N NPH) 40 units TIDM SC 06/23/16 12:15 07/23/16 12:14 06/23/16 12:25 40 UNITS
[2016-06-23] MEDS: hydrOXYzine HCL 25 MG TAB PO PRN (17:48)
[2016-06-23] MEDS: CEFTRIAXONE SOD INJ 1 GM in DEXTROSE 5% ADD-VANTAGE 50ML 50 ML IV SCH (18:03)
[2016-06-23] MEDS: ENOXAPARIN 40 MG/0.4 ML SYR SC SCH (20:57)
[2016-06-23] MEDS: MONTELUKAST SOD 10 MG TAB PO SCH (21:04)
[2016-06-23] MEDS: LACTOBACILLUS ACIDOPHILUS (FLORANEX) TAB PO SCH (21:04)
[2016-06-23] MEDS: SIMVASTATIN 20 MG TAB PO SCH (21:05)
[2016-06-23] MEDS: LORAZEPAM 2 MG TAB PO SCH (21:11)
[2016-06-24] MEDS: INSULIN ASPART 100 UNITS/ML 3 ML PEN SC SCH ×2 (02:21→08:44)
[2016-06-24 03:29] VITALS: BP 112/67; PULSE 83; TEMP 37; O2SAT 90
[2016-06-24] MEDS: LEVOTHYROXINE 100 MCG TAB PO SCH (06:11)
[2016-06-24 07:16] VITALS: PULSE 84; O2SAT 90
[2016-06-24] MEDS: ALBUT/IPRATROP 3MG/0.5MG NEB 3 ML VIAL INH SCH ×2 (07:16→11:04)
--- NOTE | 2016-06-24 07:37 | DIAGNOSTIC IMAGING REPORT ---
CHEST ONE VIEW PORTABLE HISTORY: f/u on lower lobe infiltrates COMPARISON: Chest 06/20/2016. FINDINGS: The heart remains enlarged. There is improved aeration within the lung bases. No pneumothorax. No evidence for pulmonary edema. Suspect a small left pleural effusion. IMPRESSION: 1. Improvement in the pulmonary basilar congestion. 2. Improvement in the bibasilar densities. A small left pleural effusion persist. Recommend follow-up to ensure complete resolution. Electronically signed by: Rah Lutz M.D. 06/24/2016 7:36 AM Dictated Date/Time: 06/24/2016 7:35 AM
[2016-06-24 07:51] VITALS: BP 131/69; PULSE 69; TEMP 37; O2SAT 95
[2016-06-24] MEDS ORDERED: INSULIN HUMAN NPH SC SCH ×2 (08:30→11:30)
[2016-06-24 08:39] LABS: BUN/CREATININE RATIO 18.7 (10-20); CREATININE 0.54 mg/dl (0.60-1.20); POTASSIUM 3.2 mmol/L (3.5-5.1)
[2016-06-24] MEDS: FUROSEMIDE 40 MG TAB PO SCH (08:40)
[2016-06-24] MEDS: TIOTROPIUM BROMIDE 5 PUFF/90 MCG INH INH SCH (08:40)
[2016-06-24] MEDS: DULOXETINE (CYMBALTA) 30 MG CAP PO SCH (08:40)
[2016-06-24] MEDS: ASPIRIN 81 MG ECTAB PO SCH (08:40)
[2016-06-24] MEDS: URSODIOL 300 MG CAP PO SCH (08:40)
[2016-06-24 08:41] LABS: CALCIUM 8.7 mg/dl (8.5-10.1)
[2016-06-24] MEDS: PANTOprazole SOD 40 MG TAB PO SCH (08:41)
[2016-06-24] MEDS: CeleBREX 200 MG CAP PO SCH (08:41)
[2016-06-24] MEDS: PREGABALIN 100 MG CAP PO SCH (08:50)
[2016-06-24] MEDS ORDERED: POTASSIUM CHLORIDE 20 MEQ TABCR PO ONE (10:00)
[2016-06-24 10:13] LABS: ARTERIAL BLD GAS O2 SATURATION 94.4 % (90-95); ARTERIAL BLOOD GAS BASE EXCESS 10.7 mEq/L (-9-1.8); ARTERIAL BLOOD GAS HCO3 35 mmol/L (19-24); ARTERIAL BLOOD GAS PO2 69 mm/Hg (80-95)
[2016-06-24 10:14] LABS: ALLEN TEST POS (POS); O2 ADMINISTRATION 4L
[2016-06-24 10:21] LABS: ARTERIAL BLOOD GAS pH 7.51 (7.35-7.45)
[2016-06-24 11:07] VITALS: PULSE 84; O2SAT 94
[2016-06-24 11:32] VITALS: BP 131/69; PULSE 84; TEMP 37; O2SAT 94
[2016-06-24] MEDS ORDERED: MCRK20 PO (11:43)
--- NOTE | 2016-06-24 11:50 | Discharge Instructions ---
Discharge Instructions Date of Service June 24, 2016. Admission Reason for Admission: Hypercapnic Respiratory Failure Discharge Discharge Diagnosis / Problem: CHRONIC HYPERCAPNIC RESPIRATORY FAILURE, UTI, HYPOKALEMIA Discharge Goals Goal(s): Decrease discomfort, Improve function, Improve disease control Activity Recommendations Activity Limitations: resume your previous activity . Instructions / Follow-Up Instructions / Follow-Up Please follow up with your Primary care provider Dr. Mijares on 07/01 @ 10:25 am Please change bipap setting to 14/7 ( order sent to the company) Check BMP in 1 week to monitor electrolytes Potassium supplement was started for the low potassium Current Hospital Diet Patient's current hospital diet: Diabetes Type 2 Diet Discharge Diet Recommended Diet: Diabetes Type 2 Diet Pending Studies Studies pending at discharge: no Laboratory Results Hemoglobin A1c Test 06/20/16 15:46 Range/Units Estimated Average Glucose 131 mg/dl Hemoglobin A1c 6.2 H 4.5-5.6 % Medical Emergencies . Who to Call and When: Medical Emergencies: If at any time you feel your situation is an emergency, please call 911 immediately. . Non-Emergent Contact Non-Emergency issues call your: Primary Care Provider Call Non-Emergent contact if: you have a fever, you have any medication questions . . "Provider Documentation" section prepared by Liza Rodriguez. . VTE Core Measure Inpt VTE Proph given/why not?: Enoxaparin (Lovenox)SQ
--- NOTE | 2016-06-24 11:57 | Progress Note ---
Medicine Progress Note Date & Time of Visit: June 24, 2016 at 11:25. Subjective Pt was seen and examined Lying in bed with no distress Pt said that she slept very well last night she denies any chest pain, palpitation, dizziness she feels her breathing is much better Objective Last 8 Hrs Date Time Temp Pulse Resp B/P Pulse Ox O2 Delivery O2 Flow Rate FiO2 06/24/16 11:07 84 16 94 Nasal Cannula 4.0 06/24/16 08:00 Nasal Cannula 4.0 06/24/16 07:51 37.0 69 20 131/69 95 06/24/16 07:16 84 16 90 Nasal Cannula 4.0 06/24/16 04:00 BiPAP 06/24/16 03:29 37.0 83 20 112/67 90 CPAP Physical Exam: General- No acute distress, Obese Head- atraumatic Eyes- PERRL, EOMI ENT- oropharynx clear Neck- supple, no JVD Lungs- No wheezing, No crackles, poor air entry Heart- regular rhythm; no murmur Abdomen- normal bowel sounds, soft, nontender Extremities- no calf tenderness Neuro- alert, oriented x 3; PERRL, EOMI; no facial palsy Skin- warm & dry Laboratory Results: Last 24 Hours Test 06/23/16 11:32 06/23/16 16:04 06/23/16 20:11 06/24/16 02:00 Bedside Glucose 273 mg/dl 240 mg/dl 238 mg/dl 146 mg/dl Test 06/24/16 07:05 06/24/16 07:53 06/24/16 10:02 Bedside Glucose 189 mg/dl Sodium Level 142 mmol/L Potassium Level 3.2 mmol/L Chloride Level 97 mmol/L Carbon Dioxide Level 38 mmol/L Anion Gap 7.0 mmol/L Blood Urea Nitrogen 10 mg/dl Creatinine 0.54 mg/dl Est Creatinine Clear Calc Drug Dose 163.3 ml/min Estimated GFR () 114.0 Estimated GFR (Non- 98.3 BUN/Creatinine Ratio 18.7 Random Glucose 217 mg/dl Calcium Level 8.7 mg/dl Arterial Blood pH 7.51 Arterial Blood Partial Pressure CO2 44 mmHg Arterial Blood Partial Pressure O2 69 mm/Hg Arterial Blood HCO3 35 mmol/L Arterial Blood Oxygen Saturation 94.4 % Arterial Blood Base Excess 10.7 mEq/L Arterial Blood Gas Delivery 4L Bill Test POS Assessment & Plan CHRONIC HYPERCAPNIC RESPIRATORY FAILURE OBESITY HYPOVENTILATION SYNDROME On admission presented with lethargy and decreased responsiveness at home; h/o chronic resp failure on chronic O2 at 3L and BIPAP at HS and PRN during the day ABG on admission pH 7.14, pCO2 127, bicarb 43 suggestive of respiratory acidosis CXR showed Bilateral mid and lower lung zone pulmonary airspace opacities Afebrile, mild leukocytosis On IV rocephin day 3 and continue Duoneb prn Pt said that the Rocephin gives her tremor? incentive spirometry Pulmonology consulted Case discussed with Dr. Bennett Bipap setting was changed to 14/7 yesterday She used the hospital machine last night she said that she had her best night last night Keep oxygen saturation btw 86-90% ABG this morning showed improved in her CO2 pH 7.51, pCO2 44, bicarb 35 CXR this morning showed improvement in the pulmonary basilar congestion and improvement in the bibasilar densities. Case discussed with Dr. Bennett that is ok from pulmonary standpoint to be discharge today ABNORMAL UA WITH H/O RECURRENT UTI pt had dysuria 2 days ago; h/o recurrent UTI. pt is afebrile with leukocytosis >11k UA 3+ bacteria and urine culture -enterococcus faecalis Received 4 days of Rocephin Pt has allergy (doubt if it is true allergy) with almost every antibiotic METABOLIC ENCEPHALOPATHY/CO2 NARCOSIS Back to her baseline Resolved HYPOKALEMIA K 3.2 today K replaced Will discharged on potassium 40mg daily Check BMP in 1 week DM TYPE 2 Elevated BS -A1C 6.2 (06/20/16) -hold metformin -start ISS -Pharmacy consulted for glycemic control HYPERTENSION -BP is stable -cont atenolol -monitor ASTHMA -no wheezing on exam -cont home Spiriva and PRN nebs H/O CVA -cont ASA and statin DEPRESSION/ ANXIETY -cont Cymbalta -cont Ativan PRN HYPOTHYROIDISM -cont levothyroxine GERD -cont PPI MORBID OBESITY, BMI 56.2 -PT/OT consults DVT PROPHYLAXIS -Subq Lovenox CODE STATUS FULL CODE Consultants: Pulmonology Current Inpatient Medications: Current Inpatient Medications Medications (Trade) Dose Ordered Sig/Keith Route Start Time Stop Time Status Last Admin Dose Admin Enoxaparin Sodium (Lovenox Inj) 40 mg DAILY@2100 SC 06/20/16 21:00 07/20/16 20:59 06/23/16 20:57 40 MG Acetaminophen (Tylenol Tab) 650 mg Q4H PRN PO 06/20/16 18:30 07/20/16 18:29 06/22/16 08:25 650 MG Ondansetron HCl (Zofran Inj) 4 mg Q6H PRN IV 06/20/16 18:30 07/20/16 18:29 Nitroglycerin 0.4 mg 0.4 mg UD PRN SL 06/20/16 18:30 07/20/16 18:29 Ceftriaxone Sodium/Dextrose (Rocephin Inj/ Dextrose Add-[place] 50ML) 50 ml @ 100 mls/hr Q24H IV 06/21/16 17:00 06/26/16 16:59 06/23/16 18:03 100 MLS/HR Insulin Aspart (novoLOG ASPART) SLIDING SCALE If C... ACHS SC 06/20/16 21:00 07/20/16 20:59 06/24/16 08:44 23 UNITS Glucose (Glucose 40% Gel) 15-30 GRAMS 15 GRAMS... UD PRN PO 06/20/16 18:30 07/20/16 18:29 Glucose (Glucose Chew Tab) 4-8 Tablets 4 Tabl... UD PRN PO 06/20/16 18:30 07/20/16 18:29 Dextrose (Dextrose 50% 50ML Syringe) 25-50ML OF 50% DW IV FOR... UD PRN IV 06/20/16 18:30 07/20/16 18:29 Glucagon (Glucagon Inj) 1 mg UD PRN SQ 06/20/16 18:30 07/20/16 18:29 Albuterol (Ventolin Hfa Inhaler) 2 puffs QID PRN INH 06/20/16 18:45 07/20/16 18:44 Albuterol Sulfate (Ventolin 0.083% 2.5MG/3ML Neb) 2.5 mg Q6H PRN INH 06/20/16 18:45 07/20/16 18:44 Aspirin (Ecotrin Tab) 81 mg DAILY PO 06/21/16 09:00 07/21/16 08:59 06/24/16 08:40 81 MG Atenolol (Tenormin Tab) 25 mg DAILY PO 06/21/16 09:00 07/21/16 08:59 06/24/16 08:40 25 MG Celecoxib (CeleBREX CAP) 200 mg DAILY PO 06/21/16 09:00 07/21/16 08:59 06/24/16 08:41 200 MG Duloxetine HCl (Cymbalta Cap) 30 mg BID PO 06/20/16 21:00 07/20/16 20:59 06/24/16 08:40 30 MG Furosemide (Lasix Tab) 40 mg QAM PO 06/21/16 09:00 07/21/16 08:59 06/24/16 08:40 40 MG Hydroxyzine HCl (Vistaril Tab) 25 mg Q6H PRN PO 06/20/16 18:45 07/20/16 18:44 06/23/16 17:48 25 MG Lactulose (Chronulac Syrup) 10 gm DAILY PRN PO 06/20/16 18:45 07/20/16 18:44 Levothyroxine Sodium (Synthroid Tab) 100 mcg DAILYBB PO 06/21/16 06:00 07/21/16 05:59 06/24/16 06:11 100 MCG Lorazepam (Ativan Tab) 2 mg HSZ PO 06/20/16 22:00 07/20/16 21:59 06/23/16 21:11 2 MG Lorazepam (Ativan Tab) 1 mg BID PRN PO 06/20/16 18:45 07/20/16 18:44 Miconazole Nitrate (Desenex Powder) 1 appln BID PRN EXT 06/20/16 18:45 07/20/16 18:44 06/23/16 09:12 1 APPLN Montelukast Sodium (Singulair Tab) 10 mg HS PO 06/20/16 21:00 07/20/16 20:59 06/23/16 21:04 10 MG Nystatin (Mycostatin Crm) 1 appln BID PRN EXT 06/20/16 18:45 07/20/16 18:44 06/21/16 21:58 1 APPLN Pantoprazole Sodium (Protonix Tab) 40 mg QAM PO 06/21/16 09:00 07/21/16 08:59 06/24/16 08:41 40 MG Pregabalin (Lyrica Cap) 200 mg TID PO 06/20/16 21:00 07/20/16 20:59 06/24/16 08:50 200 MG Silver Sulfadiazine (Silvadene Crm 1% 400GM Jar) 1 appln DAILY PRN EXT 06/20/16 18:45 07/20/16 18:44 Simvastatin (Zocor Tab) 20 mg HS PO 06/20/16 21:00 07/20/16 20:59 06/23/16 21:05 20 MG Sumatriptan Succinate (Imitrex Tab) 100 mg UD PRN PO 06/20/16 18:45 07/20/16 18:44 Tiotropium [place] (Spiriva Handihaler Inhaler) 1 puff QAM INH 06/21/16 09:00 07/21/16 08:59 06/24/16 08:40 1 PUFF Triamcinolone Acetonide (Kenalog 0.5% Crm) 1 appln BID PRN EXT 06/20/16 18:45 07/20/16 18:44 Ursodiol (Actigall Cap) 600 mg BID PO 06/20/16 21:00 07/20/16 20:59 06/24/16 08:40 600 MG Polyethylene (Miralax Powder Packet) 17 gm BID PRN PO 06/20/16 18:45 07/20/16 18:44 Lactobacillus Acidophilus (Floranex Tab) 4 tab HS PO 06/20/16 21:00 07/20/16 20:59 06/23/16 21:04 4 TAB Albuterol/ Ipratropium (Duoneb) 3 ml QIDR INH 06/20/16 20:00 07/20/16 19:59 06/24/16 11:04 3 ML Miscellaneous Information (Consult Glycemic Management Pharmacy) 1 ea UD PRN N/A 06/22/16 12:17 07/22/16 12:16 Insulin Aspart (novoLOG ASPART) SLIDING SCALE If C... 0200 SC 06/23/16 02:00 07/23/16 01:59 06/24/16 02:21 1 UNITS Insulin Human NPH (novoLIN-N NPH) 45 units TIDM SC 06/24/16 08:30 07/24/16 08:29 06/24/16 08:45 45 UNITS
--- NOTE | 2016-06-27 18:27 | Discharge Summary ---
Discharge Summary Date of Service June 27, 2016. Discharge Summary Admission Date: June 20, 2016 at 18:33 Discharge Date: June 24, 2016 Discharge Disposition: Home Principal Diagnosis: CHRONIC HYPERCAPNIC RESPIRATORY FAILURE OBESITY HYPOVENTILATION SYNDROME Secondary Diagnoses/Problems: METABOLIC ENCEPHALOPATHY/CO2 NARCOSIS HYPOKALEMIA DM TYPE 2 HTN ABNORMAL UA WITH H/O RECURRENT UTI MORBID OBESITY DEPRESSION/ ANXIETY HYPOTHYROIDISM GERD HX ASTHMA Consultations: Pulmonology Medication Reconciliation New Medications: Potassium Chloride (Klor-Con M20) 20 Meq Tabcr 40 MEQ PO DAILY for 30 Days, #60 TAB Continued Medications: Albuterol Hfa (Ventolin Hfa) 200 Puffs/12125 Mcg Aers 2 PUFFS INH QID PRN for SOB/Wheezing INHALE 2 PUFFS 1 MINUTE APART 4 TIMES DAILY IF NEEDED Albuterol Sulf (Proventil 0.083% 2.5MG/3ML) 2.5 Mg/3 Ml Nebu 1 VIAL NEB Q6H PRN for SOB/Wheezing USE IN PLACE OF RESCUE INHALER Aspirin (Aspirin Ec) 81 Mg Tab 81 MG PO DAILY Atenolol (Atenolol) 25 Mg Tab 25 MG PO DAILY Baclofen (Baclofen) 20 Mg Tab 20 MG PO TID Celecoxib (Celecoxib) 200 Mg Cap 200 MG PO DAILY Duloxetine HCl (Duloxetine HCl) 30 Mg Cap 30 MG PO BID Furosemide (Furosemide) 40 Mg Tab 40 MG PO QAM Hydroxyzine HCl (Hydroxyzine HCl) 25 Mg Tab 25 MG PO Q6H PRN for Itching Insulin Human NPH (Novolin N) 100 Units/Ml Susp 70 UNITS SC TIDM Lactulose (Chronulac) 10 Gm/15 Ml Syrp 15 ML PO DAILY PRN for Severe Constipation Levothyroxine Sodium (Levothyroxine Sodium) 100 Mcg Tab 100 MCG PO QAM Lorazepam (Ativan) 2 Mg Tab 1-2 MG PO BID PRN for Anxiety Lorazepam (Lorazepam) 2 Mg Tab 2 MG PO HS Metformin HCl (Metformin HCl ER) 500 Mg Tabcr 500 MG PO BID Miconazole Nitrate (Desenex Shake Powder) 43 Appln/43 Gm Powd 1 APPLN TOP BID PRN for Affected Skin Folds Montelukast Sod (Montelukast Sodium) 10 Mg Tab 10 MG PO HS Nystatin (Nystatin Cream) 90 Appln/30 Gm Cr 1 APPLN TOP BID PRN for Affected Skin Folds, GM APPLY TO AFFECTED AREA(S) DIRECTED Ondansetron Hcl (Zofran) 4 Mg Tab 4 MG PO Q6H PRN for Nausea, TAB Oxygen (Oxygen) Gas 4 LITERS NA DAYTIME USES BIPAP WITH 4 L/MIN HS Pantoprazole (Pantoprazole Sodium) 40 Mg Tab 40 MG PO QAM TAKE THIS MEDICATION ONCE A DAY 30 MINUTES BEFORE FIRST MEAL OF THE DAY. Polyethylene Glycol 3350 (Miralax) 1 Pow Pow 17 GM PO BID PRN for Constipation, GM Pregabalin (Lyrica) 200 Mg Cap 200 MG PO TID, CAP Probiotic Product (Probiotic) 1 Cap Cap 1 CAP PO HS Silver Sulfadiazine (Silvadene) 1 % Cre 1 APPLN TOP DAILY PRN for SKIN TEAR OR ABRASION, GM Simvastatin (Simvastatin) 20 Mg Tab 20 MG PO HS Sumatriptan Succinate (Imitrex) 100 Mg Tab 100 MG PO UD PRN for Migraine TAKE ONE TABLET AT ONSET OF MIGRAINE, MAY REPEAT AFTER 2 HOURS IF NEEDED. TAKE NO MORE THAN 2 TABLETS IN 24 HOURS. Tiotropium Bennett (Spiriva Handihaler) 30 Puff/540 Mcg Aerp 1 PUFF INH QAM Triamcinolone Acet (Triamcinolone Acetonide) 45 Appln/15 Gm Cr 1 APPLN TOP BID PRN for Redness and Itching, GM Ursodiol (Ursodiol) 300 Mg Cap 600 MG PO BID TAKE THIS MEDICATION AFTER BREAKFAST AND AFTER EVENING MEAL. Admission Information HPI (per Admitting provider): This is a 65 y/o female with PMHx of chronic respiratory failure on BIPAP HS and PRN during day, h/o CVA, DM 2, HTN and other problems as outline below who presents to the ED with lethargy that began this morning. Per at bedside patient went back to bed shortly after waking up this morning and slept most of the day. Around lunch-time, checked on patient and he was unable to arouse her and called EMS. mentions patient had a few days of diarrhea last week which has resolved and she was complaining of burning with urination a few days ago. Pt denies fever/chills, diaphoresis, chest pain, palpitations, SOB, wheezing, abd pain, N/V, bowel, LE edema, calf pain, lightheadedness/dizziness. In the ED, vitals are stable. Pt is afebrile with leukocytosis>11k. ABG+ respiratory acidosis. UA 2+ bacteria. CXR bilat infiltrates. Pt is stable and will be admitted for further evaluation and treatment. Physical Exam (per Admitting): General Appearance: WD/WN, no apparent distress, + obese, + pertinent finding (Pt is laying in bed with BIPAP in place) Head: normocephalic, atraumatic Eyes: normal inspection ENT: hearing grossly normal Neck: supple Respiratory/Chest: chest non-tender, lungs clear (auscultated anteriorly), normal breath sounds, no respiratory distress Cardiovascular: regular rate, rhythm, no edema, no murmur Abdomen/GI: normal bowel sounds, non tender, soft Back: normal inspection Extremities/Musculoskelatal: normal inspection, no calf tenderness, no pedal edema Neurologic/Psych: alert, normal mood/affect, oriented x 3 Skin: normal color, warm/dry Hospital Course CHRONIC HYPERCAPNIC RESPIRATORY FAILURE OBESITY HYPOVENTILATION SYNDROME On admission presented with lethargy and decreased responsiveness at home; h/o chronic resp failure on chronic O2 at 3L and BIPAP at HS and PRN during the day ABG on admission pH 7.14, pCO2 127, bicarb 43 suggestive of respiratory acidosis CXR showed Bilateral mid and lower lung zone pulmonary airspace opacities Afebrile, mild leukocytosis On IV rocephin day 3 and continue Duoneb prn Pt said that the Rocephin gives her tremor? incentive spirometry Pulmonology consulted Case discussed with Dr. Bennett Bipap setting was changed to 27/08 yesterday She used the hospital machine last night she said that she had her best night last night Keep oxygen saturation btw 86-90% ABG this morning showed improved in her CO2 pH 7.51, pCO2 44, bicarb 35 CXR this morning showed improvement in the pulmonary basilar congestion and improvement in the bibasilar densities. Case discussed with Dr. Bennett that is ok from pulmonary standpoint to be discharge today ABNORMAL UA WITH H/O RECURRENT UTI pt had dysuria 2 days ago; h/o recurrent UTI. pt is afebrile with leukocytosis >11k UA 3+ bacteria and urine culture -enterococcus faecalis Received 4 days of Rocephin Pt has allergy (doubt if it is true allergy) with almost every antibiotic METABOLIC ENCEPHALOPATHY/CO2 NARCOSIS Back to her baseline Resolved HYPOKALEMIA K 3.2 today K replaced Will discharged on potassium 40mg daily Check BMP in 1 week DM TYPE 2 Elevated BS -A1C 6.2 (06/20/16) -hold metformin -start ISS -Pharmacy consulted for glycemic control HYPERTENSION -BP is stable -cont atenolol -monitor ASTHMA -no wheezing on exam -cont home Spiriva and PRN nebs H/O CVA -cont ASA and statin DEPRESSION/ ANXIETY -cont Cymbalta -cont Ativan PRN HYPOTHYROIDISM -cont levothyroxine GERD -cont PPI MORBID OBESITY, BMI 56.2 -PT/OT consults DVT PROPHYLAXIS -Subq Lovenox CODE STATUS FULL CODE Total time spent on discharge = 35 MINUTES This includes examination of the patient, discharge planning, medication reconciliation, and communication with other providers. Discharge Instructions Discharge Instructions Date of Service June 24, 2016. Admission Reason for Admission: Hypercapnic Respiratory Failure Discharge Discharge Diagnosis / Problem: CHRONIC HYPERCAPNIC RESPIRATORY FAILURE, UTI, HYPOKALEMIA Discharge Goals Goal(s): Decrease discomfort, Improve function, Improve disease control Activity Recommendations Activity Limitations: resume your previous activity . Instructions / Follow-Up Instructions / Follow-Up Please follow up with your Primary care provider Dr. Mijares on 07/01 @ 10:25 am Please change bipap setting to 27/08 ( order sent to the company) Check BMP in 1 week to monitor electrolytes Potassium supplement was started for the low potassium Current Hospital Diet Patient's current hospital diet: Diabetes Type 2 Diet Discharge Diet Recommended Diet: Diabetes Type 2 Diet Pending Studies Studies pending at discharge: no Laboratory Results Hemoglobin A1c Test 06/20/16 15:46 Range/Units Estimated Average Glucose 131 mg/dl Hemoglobin A1c 6.2 H 4.5-5.6 % Medical Emergencies . Who to Call and When: Medical Emergencies: If at any time you feel your situation is an emergency, please call 911 immediately. . Non-Emergent Contact Non-Emergency issues call your: Primary Care Provider Call Non-Emergent contact if: you have a fever, you have any medication questions . . "Provider Documentation" section prepared by Liza Rodriguez. . VTE Core Measure Inpt VTE Proph given/why not?: Enoxaparin (Lovenox)SQ Additional Copies To Bairon Owens M.D.
[2016-11-23] MEDS ORDERED: CELE1CAP30 PO (12:20)
[2016-11-23] MEDS ORDERED: TRMCR515 TOP (12:20)
== END 2016-06-24 12:13 | disposition home health service (06) | DRG 205 ==
LOC: ENRESERVDT → ENRESERVTM → EDBD 15:20 → C.ED 15:22 → C.2T 18:33 → EDBEDREQ 18:38
PROVIDERS: ADMIT Internal Medicine; ATTEND Internal Medicine
DX: E66.2 Morbid (severe) obesity with alveolar hypoventilation (principal); J96.22 Acute and chronic respiratory failure with hypercapnia; J96.21 Acute and chronic respiratory failure with hypoxia; G93.41 Metabolic encephalopathy; Z68.43 Body mass index [BMI] 50.0-59.9, adult; N39.0 Urinary tract infection, site not specified; I50.32 Chronic diastolic (congestive) heart failure; K50.90 Crohn's disease, unspecified, without complications; Z99.81 Dependence on supplemental oxygen; E11.40 Type 2 diabetes mellitus with diabetic neuropathy, unspecified; E11.43 Type 2 diabetes mellitus with diabetic autonomic (poly)neuropathy; I11.0 Hypertensive heart disease with heart failure; J45.909 Unspecified asthma, uncomplicated; M19.90 Unspecified osteoarthritis, unspecified site; B95.2 Enterococcus as the cause of diseases classified elsewhere; E87.6 Hypokalemia; E03.9 Hypothyroidism, unspecified; K21.9 Gastro-esophageal reflux disease without esophagitis; E78.5 Hyperlipidemia, unspecified; F41.9 Anxiety disorder, unspecified; F32.9 Major depressive disorder, single episode, unspecified; G89.4 Chronic pain syndrome; Z90.5 Acquired absence of kidney; Z79.82 Long term (current) use of aspirin; Z79.899 Other long term (current) drug therapy; Z86.73 Personal history of transient ischemic attack (TIA), and cerebral infarction without residual deficits; Z86.14 Personal history of Methicillin resistant Staphylococcus aureus infection; Z79.4 Long term (current) use of insulin; Z88.0 Allergy status to penicillin; Z88.8 Allergy status to other drugs, medicaments and biological substances; Z88.2 Allergy status to sulfonamides; Z88.3 Allergy status to other anti-infective agents; Z82.0 Family history of epilepsy and other diseases of the nervous system; Z83.3 Family history of diabetes mellitus; Z82.49 Family history of ischemic heart disease and other diseases of the circulatory system

== ENCOUNTER 2016-07-16 16:15 | Inpatient (IN) | payer OTHER ==
[~2016-07-16] VITALS: Ht 172.7 cm; Wt 147.6 kg
[~2016-07-16 16:15] MED LIST changes: +ALBINS/ NEB; -ALBU1NEB10 NEB; -ALBUAER2 INH; -ASPCH81X PO; +ASPI81TA28 PO; -ATEN25TA PO; +ATR25 PO; +ATV/2 PO; +ATV2 PO; -BACL10TA PO; +CELE1CAP30 PO; -CLB/200 PO; -CLC150 PO; -CYM/30 PO; +CYM30 PO; -FLUT1INH7 INH; -FURO40TA3 PO; +GLCSR/500 PO; -HYDR-3124 PO; +IMT100 PO; -INSUINJ8 SC; -LACT10SO17 PO; +LCTS240 PO; +LRS20 PO; +LSX40 PO; +MCRK20 PO; -METFTAB PO; -MONT1TAB3 PO; +NVLNI SC; +ONDA4TAB46 PO; +POLY335019 PO; +PREG200C PO; -PRMVC EXT; +SILV1CRE73 TOP; +SNG10 PO; +SPRIN/30 INH; -SUMA100T15 PO; -TIOTCAP INH; +TNR25X PO; +VNTHFA/IN INH; -[UNRECOGNIZED DRUG - SUPPLY] TOP
--- NOTE | 2016-07-16 16:39 | EMERGENCY ROOM VISIT NOTE ---
History Report prepared by Michelle: Thaddeus Calhoun Under the Supervision of: Dr. Gricel Ravi D.O. First contact with patient: 16:25 Chief Complaint: URINARY SYMPTOMS Stated Complaint: UTI History of Present Illness The patient is a 65 year old female who presents to the Emergency Room with complaints of recurrent UTIs for years. The patient follows up with Dr. Corey, Infectious Disease. She has followed up with [facility] and [facility]rology groups. The patient is allergic to many antibiotics including Penicillins and Tetracyclines. She was told that there is a new antibiotic that she needs to come to the hospital to receive. She wanted them to mail the new drug to her. The patient is not sure what the drug is, how often she is supposed to take it, or how it is administered. The patient is not sure why she frequently experiences UTIs. She notes burning / itching with urination. She denies fevers, chills, dizziness, changes in bowel habits, or leg swelling. The patient is diabetic and states that her BSGs have been averaging between 100- 200. She wears oxygen at home. Source of History: patient Onset: years Position: other (urinary) Quality: other (UTI) Timing: other (recurrent) Associated Symptoms: + urinary symptoms (burning), No fevers, No chills, No melena, No hematochezia, No diarrhea Review of Systems See HPI for pertinent positives & negatives. A total of 10 systems reviewed and were otherwise negative. Past Medical & Surgical Medical Problems: (1) Acute Pancreatitis (2) Altered mental status (3) Anxiety (4) Asthma (5) Body Mass Index 50.0-59.9, Adult (6) Cerebrovascular disease (7) Chronic hypercapnic respiratory failure (8) Chronic osteoarthritis (9) Chronic pain disorder (10) Crohn's disease (11) Depression (12) Diabetes mellitus, type II (13) Diabetic neuropathy (14) Diastolic heart failure (15) Dyslipidemia (16) Gastroparesis (17) Hypercapnic respiratory failure (18) Hypertension (19) Hypertrophic cardiomyopathy (20) Hypothyroidism (21) Necrotizing Fasciitis (22) Obesity hypoventilation syndrome (23) Pneumonia, organism unspecified (24) Recurrent UTI (25) Sleep apnea (26) Urin Tract Infection Nos Surgical Problems: (1) Status post partial nephrectomy (2) Status post repair nasal septum (3) Status post tonsillectomy Family History FH: asthma SISTER FH: dementia MOTHER FH: diabetes mellitus MOTHER GRANDMOTHER FH: heart disease FATHER GRANDMOTHER FH: hypertension MOTHER Social History Smoking Status: Never Smoker Alcohol Use: none Drug Use: none Marital Status: Housing Status: lives with family Occupation Status: disabled Current/Historical Medications Scheduled Aspirin (Aspirin Ec), 81 MG PO DAILY Atenolol (Atenolol), 25 MG PO DAILY Baclofen (Baclofen), 20 MG PO TID Celecoxib (Celecoxib), 200 MG PO DAILY Duloxetine HCl (Duloxetine HCl), 30 MG PO BID Furosemide (Furosemide), 40 MG PO QAM Insulin Human NPH (Novolin N), 70 UNITS SC TIDM Levothyroxine Sodium (Levothyroxine Sodium), 100 MCG PO QAM Lorazepam (Lorazepam), 2 MG PO HS Metformin HCl (Metformin HCl ER), 500 MG PO BID Montelukast Sod (Montelukast Sodium), 10 MG PO HS Oxygen (Oxygen), 4 LITERS NA DAYTIME Pantoprazole (Pantoprazole Sodium), 40 MG PO QAM Potassium Chloride Microencaps (Potassium Chloride Er), 20 MEQ PO BID Pregabalin (Lyrica), 200 MG PO TID Probiotic Product (Probiotic), 1 CAP PO HS Simvastatin (Simvastatin), 20 MG PO HS Tiotropium Weston (Spiriva Handihaler), 1 PUFF INH QAM Ursodiol (Ursodiol), 600 MG PO BID Scheduled PRN Albuterol Hfa (Ventolin Hfa), 2 PUFFS INH QID PRN for SOB/Wheezing Albuterol Sulf (Proventil 0.083% 2.5MG/3ML), 1 VIAL NEB Q6H PRN for SOB/Wheezing Hydroxyzine HCl (Hydroxyzine HCl), 25 MG PO Q6H PRN for Itching Lactulose (Chronulac), 15 ML PO DAILY PRN for Severe Constipation Lorazepam (Ativan), 1-2 MG PO BID PRN for Anxiety Miconazole Nitrate (Desenex Shake Powder), 1 APPLN TOP BID PRN for Affected Skin Folds Nystatin (Nystatin Cream), 1 APPLN TOP BID PRN for Affected Skin Folds Ondansetron Hcl (Zofran), 4 MG PO Q6H PRN for Nausea Polyethylene Glycol 3350 (Miralax), 17 GM PO BID PRN for Constipation Silver Sulfadiazine (Silvadene), 1 APPLN TOP DAILY PRN for SKIN TEAR OR ABRASION Sumatriptan Succinate (Imitrex), 100 MG PO UD PRN for Migraine Triamcinolone Acet (Triamcinolone Acetonide), 1 APPLN TOP BID PRN for Redness and Itching Allergies Coded Allergies: Fluoxetine (Verified Allergy, Severe, ANAPHYLAXIS, 07/16/16) Insulin (Verified Allergy, Severe, LANTUS/LEVEMIR- HIVES/THROAT SWELLING, 07/16/16) TOLERATES NOVOLIN N 11/19/15 aj (per pt phone call) Note: after patient had severe hives reaction from Lantus (many years ago), she had skin testing @ [facility] and was tested with many other insulins. Pt says she only tolerated NOVOLIN NPH. PT HAS TOLERATED NOVOLOG ON PREVIOUS ADMISSIONS. Has tolerated Aspart during multiple admissions (12/2013, 05/2015, 07/2015) Moxifloxacin (Verified Allergy, Severe, HIVES, 07/16/16) Nitrofurantoin (Verified Allergy, Severe, HIVES, 07/16/16) Paroxetine (Verified Allergy, Severe, HIVES, 07/16/16) Quinolones (Verified Allergy, Severe, AVELOX & LEVAQUIN-HIVES, 07/16/16) Amitriptyline (Verified Allergy, Intermediate, Sweats and itching, 07/16/16) Buspirone (Verified Allergy, Intermediate, HIVES, 07/16/16) Citalopram (Verified Allergy, Intermediate, HIVES-RASH, 07/16/16) Escitalopram (Verified Allergy, Intermediate, HIVES-RASH, 07/16/16) Methadone (Verified Allergy, Intermediate, HIVES, 07/16/16) Penicillins (Verified Allergy, Intermediate, RASH,HIVES, 07/16/16) Serotonin Reuptake Inhibitors (Verified Allergy, Intermediate, MIGRAINES TO SSRIs, 07/16/16) Trazodone (Verified Allergy, Intermediate, BLOODY NOSE, HEADACHES,HIVES, ) Vancomycin (Verified Allergy, Intermediate, HIVES, 07/16/16) Prednisone (Verified Allergy, Mild, CHEST TIGHTNESS, 07/16/16) Azithromycin (Verified Allergy, Unknown, HIVES, 07/16/16) Carbamazepine (Verified Allergy, Unknown, WVOXY-MAST-ULYKNEHDP, 07/16/16) Cefepime (Verified Allergy, Unknown, face & arm redness/itching after 2nd or 3rd dose cefepime, 07/16/16) Ceftriaxone (Verified Allergy, Unknown, Received in [facility] (but needed benadryl for course of therapy, 07/16/16) this was during 01/2016 [facility] admission for Rocephin Ciprofloxacin (Unverified Allergy, Unknown, ABD PAINS, 07/16/16) Sertraline (Verified Allergy, Unknown, UNKNOWN, 07/16/16) Sitagliptin (Verified Allergy, Unknown, HIVES, 07/16/16) Tetracyclines (Verified Adverse Reaction, Severe, HIVES, 07/16/16) Sulfa Antibiotics (Verified Adverse Reaction, Intermediate, MIGRAINES, 07/16) Fexofenadine (Verified Adverse Reaction, Mild, GI SYMPTOMS, 07/16/16) Tizanidine (Verified Adverse Reaction, Mild, ITCHING-HIVES, 07/16/16) Physical Exam Vital Signs Date Time Temp Pulse Resp B/P (MAP) Pulse Ox O2 Delivery O2 Flow Rate FiO2 07/16/16 16:28 37.2 76 22 133/76 95 Nasal Cannula 3.5 Physical Exam GENERAL: Morbidly obese, alert, well appearing, well nourished, no distress, non -toxic EYE EXAM: normal conjunctiva. OROPHARYNX: no exudate, no erythema, lips, buccal mucosa, and tongue normal and mucous membranes are moist NECK: supple, no nuchal rigidity, no adenopathy, non-tender LUNGS: Clear to auscultation. Normal chest wall mechanics HEART: no murmurs, S1 normal and S2 normal ABDOMEN: abdomen soft, non-tender, normo-active bowel sounds, no masses, no rebound or guarding. BACK: Back is symmetrical on inspection and there is no deformity, no midline tenderness, no CVA tenderness. SKIN: no rashes and no bruising UPPER EXTREMITIES: upper extremities are grossly normal. LOWER EXTREMITIES: Trace pedal edema bilaterally. NEURO EXAM: Normal sensorium, cranial nerves II-XII grossly intact, normal speech, no gross weakness of arms, no gross weakness of legs. Gross sensation intact. Medical Decision & Procedures Laboratory Results Test 07/16/16 17:10 Urine Color DK YELLOW Urine Appearance CLEAR (CLEAR) Urine pH 6.0 (4.5-7.5) Urine Specific Dexter 1.028 (1.000-1.030) Urine Protein NEG (NEG) Urine Glucose (UA) NEG (NEG) Urine Ketones NEG (NEG) Urine Occult Blood TRACE (NEG) Urine Nitrite NEG (NEG) Urine Bilirubin NEG (NEG) Urine Urobilinogen NEG (NEG) Urine Leukocyte Esterase TRACE (NEG) Urine WBC (Auto) 5-10 /hpf (0-5) Urine RBC (Auto) 5-10 /hpf (0-4) Urine Hyaline Casts (Auto) 1-5 /lpf (0-5) Urine Epithelial Cells (Auto) >30 /lpf (0-5) Urine Bacteria (Auto) 1+ (NEG) Date/Time Source Procedure Growth Status 07/16/16 17:10 Urine,Catheterized Urine Culture - Final Enterococcus Faecalis Complete Laboratory results per my review. Medications Administered Medications (Trade) Dose Ordered Sig/Keith Route Start Time Stop Time Status Last Admin Dose Admin Daptomycin 580 mg/ Sodium Chloride 61.6 ml @ 100 mls/hr NOW STAT IV 07/16/16 16:48 07/16/16 17:24 DC 07/16/16 16:48 100 MLS/HR ED Course 1628: The patient was evaluated in room B3A. A complete history and physical exam was performed. 1646: Discussed the case with Lisa Freeman PA-C, Infectious Disease. She recommends IV Daptomycin and medical admission. 1648: Daptomycin 580 mg / NSS 61.6 ml @ 100 ml/hr. 1658: Updated her. The patient is agreeable with the plan. 1711: Discussed the case with Dr. Mayo, [facility] Hospitalist. The patient will be evaluated. Medical Decision There is no differential diagnosis. Medication Reconciliation: I attest that I have personally reviewed the patient' s current medication list. Blood pressure screening: Patient was found to have an elevated blood pressure and was referred to their primary doctor for recheck and further treatment. Pt with chronic recurring complicated UTI's followed by ID. Care for PICC/home antibiotics unable to be coordinated before the weekend. They recommend admission for IV antibiotics based on their last culture of enterococcus on . Recommend repeat labs/culture. Pt verbalized understanding and was agreeable with plan. Doubt bacteremia/sepsis. No hx of renal dysfunction. 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 Consults Time Called: 1640 Consulting Physician: Lisa Freeman PA-C, Infectious Disease Returned Call: 1646 She recommends IV Daptomycin and medical admission. Additional Consults: Time Called: 1705 Consulted Physician: Dr. Mayo [facility] Hospitalist. Returned Call: [phone] Additional Comments: The patient will be evaluated. Impression Primary Impression: Complicated UTI (urinary tract infection) Scribe Attestation The scribe's documentation has been prepared under my direction and personally reviewed by me in its entirety. I confirm that the note above accurately reflects all work, treatment, procedures, and medical decision making performed by me. Departure Information Dispostion Being Evaluated By Hospitalist Referrals No Doctor, Assigned (PCP) Patient Instructions My [facility]
[2016-07-16] MEDS ORDERED: SODIUM CHLORIDE 0.9% IV STA (16:48)
[2016-07-16] MEDS ORDERED: DAPTOMYCIN IV STA (16:48)
[2016-07-16] MEDS ORDERED: POTA20TA13 PO (18:05)
[2016-07-16 18:07] LABS: URINE APPEARANCE CLEAR (CLEAR); URINE BILIRUBIN NEG (NEG); URINE COLOR DK YELLOW; URINE EPITHELIAL CELL AUTO >30 /lpf (0-5); URINE NITRITE NEG (NEG); URINE SPECIFIC GRAVITY 1.028 (1.000-1.030); UROBILINOGEN NEG (NEG)
[2016-07-16 18:08] LABS: MANUAL MICROSCOPIC REQUIRED? NO; REVIEW REQ? NO
[2016-07-16 18:45] LABS: BASO % 0.3 %; BASO ABS # 0.03 K/uL (0-0.2); COMPLETE YES; EOS % 3.1 %; HEMATOCRIT 42.1 % (37-47); IG% 0.5 %; LYMPH % 19.5 %; LYMPH ABS # 2.05 K/uL (1.2-3.4); MEAN CELL VOLUME 81.1 fL (80-100); MEAN CORPUSCULAR HEMOGLOBIN 24.7 pg (25-34); MEAN CORPUSCULAR HGB CONC 30.4 g/dl (32-36); MEAN PLATELET VOLUME 11.5 fL (7.4-10.4); MONO % 7.6 %; PLATELET COUNT 153 K/uL (130-400); RED BLOOD COUNT 5.19 M/uL (4.2-5.4); WHITE BLOOD COUNT 10.53 K/uL (4.8-10.8)
[2016-07-16 19:04] LABS: BUN/CREATININE RATIO 22.2 (10-20); CALCIUM 8.1 mg/dl (8.5-10.1); CREATININE 0.58 mg/dl (0.60-1.20); POTASSIUM 3.7 mmol/L (3.5-5.1)
[2016-07-16 19:06] LABS: ALB/GLOB RATIO 0.9 (0.9-2)
[2016-07-16 19:49] VITALS: BP 145/55; PULSE 66; TEMP 36.8; O2SAT 96
[2016-07-16] MEDS ORDERED: ACETAMINOPHEN 325 MG TAB PO PRN (20:30)
[2016-07-16] MEDS ORDERED: DEXTROSE 50% 50 ML SYR IV PRN (20:30)
[2016-07-16] MEDS ORDERED: GLUCAGON FOR INJ 1 MG VIAL SQ PRN (20:30)
[2016-07-16] MEDS ORDERED: POLYETHYLENE (MIRALAX) 17 GM PACK PO PRN (20:30)
[2016-07-16] MEDS ORDERED: GLUCOSE 40% GEL 15 GM TUBE PO PRN (20:30)
[2016-07-16] MEDS ORDERED: GLUCOSE 10 TABS/TUBE PO PRN (20:30)
[2016-07-16] MEDS ORDERED: PHARMACY GLYCEMIC MGMT CONSULT PRN (20:37)
--- NOTE | 2016-07-16 20:49 | Pharmacy Progress Note ---
Glycemic Control Intl Consult Date of Service Jul 16, 2016. Scope Glycemic Pharmacist consulted by Dr Mayo on 07/16/16 for glycemic control and to write orders per [facility] inpatient glycemic control protocol Objective Weight (Kilograms): 147.600 Accuchecks BSG (last 24hrs): Test 07/16/16 18:32 07/16/16 20:28 Random Glucose 205 mg/dl (70-99) Bedside Glucose 147 mg/dl (70-90) Laboratory Data (last 24hrs) Test 07/16/16 18:32 Anion Gap 7.0 mmol/L BUN/Creatinine Ratio 22.2 Blood Urea Nitrogen 13 mg/dl Creatinine 0.58 mg/dl Potassium Level 3.7 mmol/L Sodium Level 145 mmol/L White Blood Count 10.53 K/uL Red Blood Count 5.19 M/uL Hemoglobin 12.8 g/dL Hematocrit 42.1 % Mean Corpuscular Volume 81.1 fL Mean Corpuscular Hemoglobin 24.7 pg Mean Corpuscular Hemoglobin Concent 30.4 g/dl Platelet Count 153 K/uL Mean Platelet Volume 11.5 fL Neutrophils (%) (Auto) 69.0 % Lymphocytes (%) (Auto) 19.5 % Monocytes (%) (Auto) 7.6 % Eosinophils (%) (Auto) 3.1 % Basophils (%) (Auto) 0.3 % Neutrophils # (Auto) 7.27 K/uL Lymphocytes # (Auto) 2.05 K/uL Monocytes # (Auto) 0.80 K/uL Eosinophils # (Auto) 0.33 K/uL Basophils # (Auto) 0.03 K/uL Recent Pertinent Medications Outpatient Anti-diabetic Regimen: * NPH 70 TIDM + metformin 500 mg PO BID * A1c = 6.2 % 06/20/16 Risk Factors for Insulin Resistance: * Infection: UTI * Diet: type 2 diabetic diet Assessment & Plan ASSESSMENT: * ADA & AACE recommend a goal blood sugar range 140-180 mg/dl for the majority of critically ill & non-critically ill patients. However, more stringent targets may be selected in individual cases. Will utilize more stringent goal of 110-140mg/dl based on patient age & comorbidities. Additionally, tighter glycemic control is warranted to facilitate wound/infection healing. * Ms Ramon is a 65 y/o F who is well known to the glycemic service. She has a history of allergies to both Levemir and Lantus. She tolerates Novolog and NPH. She last took her NPH at noon. She is currently admitted with a UTI. * During the previous admission in June, thrice daily NPH was being utilized. I was concerned about using this as it appears the patient may have been insulin deficient (she missed a whole day of NPH). Therefore, I utilized other data that showed she tolerated NPH 40 units twice daily with meals. I scheduled first dose for tonight since she will eat. I believe that this will be approximately 50% of her insulin needs (needs between 110-150 units/day).A strict Novolog scale was used as the patient is insulin resistant. PLAN FOR INPATIENT GLYCEMIC CONTROL: * Holding outpatient oral diabetes medications * Basal insulin with NPH 40 units SQ BID with meals * Correctional Insulin with NOVOLOG per scale ACHS * Goal Range: Low 110 mg/dL - High 140 mg/dL * Correction Factor: 10 mg/dL/unit * Nutritional / Prandial insulin per carb ratio of 1 unit per 4 grams CHO consumed * Please note that the plan above was derived based on current level of insulin resistance and hospital stress. These recommendations are appropriate for inpatient admission only. Plan of care upon discharge will need to be reassessed to avoid potential outpatient hypo/hyperglycemia. Thank you.
[2016-07-16] MEDS ORDERED: INSULIN HUMAN NPH SC SCH (21:00)
[2016-07-16 21:18] VITALS: BP 145/55; PULSE 66; TEMP 36.8; O2SAT 96; Ht 172.7 cm; Wt 147.6 kg
[2016-07-16] MEDS ORDERED: PHARMACY GLYCEMIC MGMT CONSULT STA (21:33)
--- NOTE | 2016-07-16 21:49 | History and Physical ---
History & Physical Date & Time of Service: Jul 16, 2016 at 20:23 Chief Complaint: Recurrent Uti Primary Care Physician: No Doctor, Assigned History of Present Illness Source: patient, clinic records, hospital records 65 yo post-menopausal F with recurrent UTI for two years. She recently was symptomatic and grew vanc-sensitive enterococcus in a urine culture on 06/30. Based on her extensive allergy profile, she cannot take vancomycin. She is also on an SSRI, and therefore, Linezolid is not a good choice either. Ther was some talk of getting her a different abx that would require prior approval, but since no one contacted her from the ID office this week and her symptoms were persisting, she contacted them. They advised her to come in and per the ER physician she should start Daptomycin. She states that she has dysuria but denies flank pain, fevers or chills. She has had some nausea for two weeks since the symptoms began but denies vomiting or having diarrhea and is eating well at home. She denies any increased weakness from her baseline right sided weakness from her prior stroke. She has no other symptoms at this time. Past Medical/Surgical History Medical Problems: (1) Acute Pancreatitis Status: Resolved (2) Anxiety Status: Chronic (3) Asthma Status: Chronic (4) Body Mass Index 50.0-59.9, Adult Status: Chronic (5) Cerebrovascular disease Permanent Comment: history left thalamic stroke Status: Chronic (6) Chronic hypercapnic respiratory failure Status: Chronic (7) Chronic osteoarthritis Status: Chronic (8) Chronic pain disorder Status: Chronic (9) Crohn's disease Status: Chronic (10) Depression Status: Chronic (11) Diabetes mellitus, type II Status: Chronic (12) Diabetic neuropathy Status: Chronic (13) Diastolic heart failure Status: Chronic (14) Dyslipidemia Status: Chronic (15) Gastroparesis Status: Chronic (16) Hypertension Status: Chronic (17) Hypertrophic cardiomyopathy Status: Chronic (18) Hypothyroidism Status: Chronic (19) Necrotizing Fasciitis Status: Resolved (20) Obesity hypoventilation syndrome Status: Chronic (21) Pneumonia, organism unspecified Status: Resolved (22) Sleep apnea Status: Chronic (23) Urin Tract Infection Nos Status: Resolved Surgical Problems: (1) Status post partial nephrectomy Permanent Comment: left partial nephrectomy, pathology benign Status: Chronic (2) Status post repair nasal septum Status: Chronic (3) Status post tonsillectomy Status: Chronic Family History FH: asthma SISTER FH: dementia MOTHER FH: diabetes mellitus MOTHER GRANDMOTHER FH: heart disease FATHER GRANDMOTHER FH: hypertension MOTHER Social History Smoking Status: Never Smoker Smokeless Tobacco Use: No Alcohol Use: none Drug Use: none Marital Status: Housing status: lives with significant other, other Occupational Status: disabled Immunizations History of Influenza Vaccine: Yes Influenza Vaccine Date: Oct 16, 2014 History of Tetanus Vaccine?: Unknown Tetanus Immunization Date: Oct 23, 2009 History of Pneumococcal: Yes Pneumococcal Date: Nov 30, 2000 History of Hepatitis B Vaccine: Unknown Multi-Drug Resistant Organisms History of MDRO: Yes Type of MDRO: MRSA Allergies Coded Allergies: Fluoxetine (Verified Allergy, Severe, ANAPHYLAXIS, 07/16/16) Insulin (Verified Allergy, Severe, LANTUS/LEVEMIR- HIVES/THROAT SWELLING, 07/16/16) TOLERATES NOVOLIN N 11/19/15 aj (per pt phone call) Note: after patient had severe hives reaction from Lantus (many years ago), she had skin testing @ [place] and was tested with many other insulins. Pt says she only tolerated NOVOLIN NPH. PT HAS TOLERATED NOVOLOG ON PREVIOUS ADMISSIONS. Has tolerated Aspart during multiple admissions (12/2013, 05/2015, 07/2015) Moxifloxacin (Verified Allergy, Severe, HIVES, 07/16/16) Nitrofurantoin (Verified Allergy, Severe, HIVES, 07/16/16) Paroxetine (Verified Allergy, Severe, HIVES, 07/16/16) Quinolones (Verified Allergy, Severe, AVELOX & LEVAQUIN-HIVES, 07/16/16) Amitriptyline (Verified Allergy, Intermediate, Sweats and itching, 07/16/16) Buspirone (Verified Allergy, Intermediate, HIVES, 07/16/16) Citalopram (Verified Allergy, Intermediate, HIVES-RASH, 07/16/16) Escitalopram (Verified Allergy, Intermediate, HIVES-RASH, 07/16/16) Methadone (Verified Allergy, Intermediate, HIVES, 07/16/16) Penicillins (Verified Allergy, Intermediate, RASH,HIVES, 07/16/16) Serotonin Reuptake Inhibitors (Verified Allergy, Intermediate, MIGRAINES TO SSRIs, 07/16/16) Trazodone (Verified Allergy, Intermediate, BLOODY NOSE, HEADACHES,HIVES, ) Vancomycin (Verified Allergy, Intermediate, HIVES, 07/16/16) Prednisone (Verified Allergy, Mild, CHEST TIGHTNESS, 07/16/16) Azithromycin (Verified Allergy, Unknown, HIVES, 07/16/16) Carbamazepine (Verified Allergy, Unknown, [id number], 07/16/16) Cefepime (Verified Allergy, Unknown, face & arm redness/itching after 2nd or 3rd dose cefepime, 07/16/16) Ceftriaxone (Verified Allergy, Unknown, Received in [facility] (but needed benadryl for course of therapy, 07/16/16) this was during 01/2016 [facility] admission for Rocephin Ciprofloxacin (Unverified Allergy, Unknown, ABD PAINS, 07/16/16) Sertraline (Verified Allergy, Unknown, UNKNOWN, 07/16/16) Sitagliptin (Verified Allergy, Unknown, HIVES, 07/16/16) Tetracyclines (Verified Adverse Reaction, Severe, HIVES, 07/16/16) Sulfa Antibiotics (Verified Adverse Reaction, Intermediate, MIGRAINES, 07/16) Fexofenadine (Verified Adverse Reaction, Mild, GI SYMPTOMS, 07/16/16) Tizanidine (Verified Adverse Reaction, Mild, ITCHING-HIVES, 07/16/16) Home Medications Scheduled Aspirin (Aspirin Ec), 81 MG PO DAILY Atenolol (Atenolol), 25 MG PO DAILY Baclofen (Baclofen), 20 MG PO TID Celecoxib (Celecoxib), 200 MG PO DAILY Duloxetine HCl (Duloxetine HCl), 30 MG PO BID Furosemide (Furosemide), 40 MG PO QAM Insulin Human NPH (Novolin N), 70 UNITS SC TIDM Levothyroxine Sodium (Levothyroxine Sodium), 100 MCG PO QAM Lorazepam (Lorazepam), 2 MG PO HS Metformin HCl (Metformin HCl ER), 500 MG PO BID Montelukast Sod (Montelukast Sodium), 10 MG PO HS Oxygen (Oxygen), 4 LITERS NA DAYTIME Pantoprazole (Pantoprazole Sodium), 40 MG PO QAM Potassium Chloride Microencaps (Potassium Chloride Er), 20 MEQ PO BID Pregabalin (Lyrica), 200 MG PO TID Probiotic Product (Probiotic), 1 CAP PO HS Simvastatin (Simvastatin), 20 MG PO HS Tiotropium [place] (Spiriva Handihaler), 1 PUFF INH QAM Ursodiol (Ursodiol), 600 MG PO BID Scheduled PRN Albuterol Hfa (Ventolin Hfa), 2 PUFFS INH QID PRN for SOB/Wheezing Albuterol Sulf (Proventil 0.083% 2.5MG/3ML), 1 VIAL NEB Q6H PRN for SOB/Wheezing Hydroxyzine HCl (Hydroxyzine HCl), 25 MG PO Q6H PRN for Itching Lactulose (Chronulac), 15 ML PO DAILY PRN for Severe Constipation Lorazepam (Ativan), 1-2 MG PO BID PRN for Anxiety Miconazole Nitrate (Desenex Shake Powder), 1 APPLN TOP BID PRN for Affected Skin Folds Nystatin (Nystatin Cream), 1 APPLN TOP BID PRN for Affected Skin Folds Ondansetron Hcl (Zofran), 4 MG PO Q6H PRN for Nausea Polyethylene Glycol 3350 (Miralax), 17 GM PO BID PRN for Constipation Silver Sulfadiazine (Silvadene), 1 APPLN TOP DAILY PRN for SKIN TEAR OR ABRASION Sumatriptan Succinate (Imitrex), 100 MG PO UD PRN for Migraine Triamcinolone Acet (Triamcinolone Acetonide), 1 APPLN TOP BID PRN for Redness and Itching Review of Systems Ten systems were reviewed and negative except as indicated in HPI. Physical Exam Vital Signs Date Time Temp Pulse Resp B/P (MAP) Pulse Ox O2 Delivery O2 Flow Rate FiO2 07/16/16 19:49 36.8 66 20 145/55 (85) 96 3.5 07/16/16 19:24 36.8 70 22 156/73 99 07/16/16 18:59 36.8 70 156/73 99 Nasal Cannula 4.0 07/16/16 16:28 37.2 76 22 133/76 95 Nasal Cannula 3.5 GEN: morbid obesity, in no acute distress, alert and appropriate HEENT: NC/AT, pupils are equal and round, normal sclerae/conjunctivae, MMM CARDIO: reg rate, S1/2 heard without m/g/r LUNGS: CTA bilaterally, no crackles, rales or wheezes, good diaphragmatic excursion ABD: soft, slight suprapubic tenderness, non-distended, no rebound or guarding, +BS, multiple skin folds so exam is very limited. No CVA tenderness; again skin folds get in the way somewhat. EXTREMITY: RP and DP palpable 2+ bilat, no LE swelling or edema NEURO: CN 2-12 grossly intact, no gross focal deficits, mentating well. MUSC: moves all extremities equally SKIN: warm and dry Diagnostics Laboratory Results Results Past 24 Hours Test 07/16/16 17:10 07/16/16 18:32 Range/Units Urine Color DK YELLOW Urine Appearance CLEAR CLEAR Urine pH 6.0 4.5-7.5 Urine Specific [place] 1.028 1.000-1.030 Urine Protein NEG NEG Urine Glucose (UA) NEG NEG Urine Ketones NEG NEG Urine Occult Blood TRACE NEG Urine Nitrite NEG NEG Urine Bilirubin NEG NEG Urine Urobilinogen NEG NEG Urine Leukocyte Esterase TRACE NEG Urine WBC (Auto) 5-10 0-5 /hpf Urine RBC (Auto) 5-10 0-4 /hpf Urine Hyaline Casts (Auto) 1-5 0-5 /lpf Urine Epithelial Cells (Auto) >30 0-5 /lpf Urine Bacteria (Auto) 1+ NEG White Blood Count 10.53 4.8-10.8 K/uL Red Blood Count 5.19 4.2-5.4 M/uL Hemoglobin 12.8 12.0-16.0 g/dL Hematocrit 42.1 37-47 % Mean Corpuscular Volume 81.1 80-100 fL Mean Corpuscular Hemoglobin 24.7 25-34 pg Mean Corpuscular Hemoglobin Concent 30.4 32-36 g/dl Platelet Count 153 130-400 K/uL Mean Platelet Volume 11.5 7.4-10.4 fL Neutrophils (%) (Auto) 69.0 % Lymphocytes (%) (Auto) 19.5 % Monocytes (%) (Auto) 7.6 % Eosinophils (%) (Auto) 3.1 % Basophils (%) (Auto) 0.3 % Neutrophils # (Auto) 7.27 1.4-6.5 K/uL Lymphocytes # (Auto) 2.05 1.2-3.4 K/uL Monocytes # (Auto) 0.80 0.11-0.59 K/uL Eosinophils # (Auto) 0.33 0-0.5 K/uL Basophils # (Auto) 0.03 0-0.2 K/uL RDW Standard Deviation 50.0 36.4-46.3 fL RDW Coefficient of Variation 16.6 11.5-14.5 % Immature Granulocyte % (Auto) 0.5 % Immature Granulocyte # (Auto) 0.05 0.00-0.02 K/uL Sodium Level 145 136-145 mmol/L Potassium Level 3.7 3.5-5.1 mmol/L Chloride Level 104 98-107 mmol/L Carbon Dioxide Level 34 21-32 mmol/L Anion Gap 7.0 3-11 mmol/L Blood Urea Nitrogen 13 7-18 mg/dl Creatinine 0.58 0.60-1.20 mg/dl Est Creatinine Clear Calc Drug Dose 146.7 ml/min Estimated GFR () 111.3 Estimated GFR (Non- 96.1 BUN/Creatinine Ratio 22.2 10-20 Random Glucose 205 70-99 mg/dl Calcium Level 8.1 8.5-10.1 mg/dl Total Bilirubin 0.3 0.2-1 mg/dl Aspartate Amino Transf (AST/SGOT) 12 15-37 U/L Alanine Aminotransferase (ALT/SGPT) 21 12-78 U/L Alkaline Phosphatase 93 45-117 U/L Total Protein 6.4 6.4-8.2 gm/dl Albumin 3.1 3.4-5.0 gm/dl Globulin 3.3 2.5-4.0 gm/dl Albumin/Globulin Ratio 0.9 0.9-2 Microbiology Results 07/16/16 Urine Culture, Received Pending Impression Assessment and Plan 65 yo F with recurrent UTI now requiring IV medications 1. Enterococcus UTI-symptoms ongoing for the past two weeks while trying to secure abx that required prior approval. Would check with Dr. Corey tomorrow that Dapto with a PICC line is the correct plan for her and for how long as this was not clear on admission. Will give pyridium for comfort. Repeat UCx were ordered and are pending. She is clinically stable. 2. Nausea likely 2/2 illness above. Not interfering with PO intake 3. DMII-multiple insulin allergies and can only take Novolin -N which was ordered at same dose as last admission. No carb coverage was ordered. Placed pharmacy consult for assistance. Most recent A1C is 6.2. 4. Hypothyroidism-cont Synthroid 5. chronic respiratory failure-cont 4L NC, at baseline 6. chronic pain-cont Cymbalta (unwilling to come off this) 7. Morbid obesity DVT proph: Lovenox. FULL CODE Dispo-to Med[facility]Surg [facility] Med/Surg Resuscitation Status FULL RESUSCITATION VTE Prophylaxis VTE Risk Assessment Done? Y/N: Yes Risk Level: Moderate Given or contraindicated: Enoxaparin (Lovenox)SQ
[2016-07-16] MEDS ORDERED: LACTULOSE SYRUP 10 GM/15 ML BTL 473 ML PO PRN (22:00)
[2016-07-16] MEDS ORDERED: SUMATRIPTAN SUCC TAB 100 MG TAB PO PRN (22:00)
[2016-07-16] MEDS ORDERED: LORAZEPAM 2 MG TAB PO PRN (22:00)
[2016-07-16] MEDS ORDERED: NON-FORMULARY MEDICATION (Probiotic Product (Probiotic) 1 CAP) PO SCH (22:00)
[2016-07-16] MEDS ORDERED: NYSTATIN CR 15 GM TUBE EXT PRN (22:00)
[2016-07-16] MEDS ORDERED: MICONAZOLE NITRATE POWDER 43 GM EXT PRN (22:00)
[2016-07-16] MEDS ORDERED: ALBUTEROL 0.083% NEBU SOLN 3 ML VIAL INH PRN (22:00)
[2016-07-16] MEDS ORDERED: SILVER SULFADIAZINE 1% CR 400 GM JAR EXT PRN (22:00)
[2016-07-16] MEDS ORDERED: ONDANSETRON 4 MG TAB PO PRN (22:00)
[2016-07-16] MEDS ORDERED: hydrOXYzine HCL 25 MG TAB PO PRN (22:00)
[2016-07-16] MEDS ORDERED: ALBUTEROL HFA 8 GM INHALER INH PRN (22:00)
[2016-07-16] MEDS: INSULIN ASPART 100 UNITS/ML 3 ML PEN SC SCH (22:10)
[2016-07-16] MEDS: LORAZEPAM 2 MG TAB PO SCH (23:16)
[2016-07-16] MEDS: SIMVASTATIN 20 MG TAB PO SCH (23:17)
[2016-07-16] MEDS: MONTELUKAST SOD 10 MG TAB PO SCH (23:18)
[2016-07-16 23:22] VITALS: BP 128/65; PULSE 65; TEMP 36.9; O2SAT 94
[2016-07-17] MEDS ORDERED: PREGABALIN 100 MG CAP PO ONE
[2016-07-17] MEDS: LEVOTHYROXINE 100 MCG TAB PO SCH (05:59)
[2016-07-17 07:51] VITALS: BP 151/65; PULSE 78; TEMP 36.7; O2SAT 95
[2016-07-17] MEDS: PREGABALIN 100 MG CAP PO SCH ×3 (08:55→20:45)
[2016-07-17] MEDS: CeleBREX 200 MG CAP PO SCH (08:56)
[2016-07-17] MEDS: POTASSIUM CHLORIDE 20 MEQ TABCR PO SCH ×2 (08:56→20:46)
[2016-07-17] MEDS: URSODIOL 300 MG CAP PO SCH ×2 (08:56→20:46)
[2016-07-17] MEDS: PANTOprazole SOD 40 MG TAB PO SCH (08:57)
[2016-07-17] MEDS: FUROSEMIDE 40 MG TAB PO SCH (08:57)
[2016-07-17] MEDS: ASPIRIN 81 MG ECTAB PO SCH (08:57)
[2016-07-17] MEDS: BACLOFEN TAB 20 MG TAB PO SCH ×3 (08:58→20:48)
[2016-07-17] MEDS: ENOXAPARIN 40 MG/0.4 ML SYR SQ SCH (08:58)
[2016-07-17] MEDS: TIOTROPIUM BROMIDE 5 PUFF/90 MCG INH INH SCH (08:59)
[2016-07-17] MEDS: PHENAZOPYRIDINE HCL 200 MG TAB PO SCH ×3 (08:59→20:44)
[2016-07-17] MEDS: DULOXETINE (CYMBALTA) 30 MG CAP PO SCH ×2 (08:59→20:47)
[2016-07-17] MEDS: INSULIN HUMAN NPH SC SCH ×3 (09:06→18:35)
[2016-07-17] MEDS: INSULIN ASPART 100 UNITS/ML 3 ML PEN SC SCH ×4 (09:06→20:44)
[2016-07-17] MEDS: ONDANSETRON INJ 2 MG/ML 2 ML VIAL IV PRN ×2 (12:13→21:38)
[2016-07-17 15:06] VITALS: BP 137/65; PULSE 65; TEMP 36.6; O2SAT 94
--- NOTE | 2016-07-17 15:57 | Progress Note ---
Internal Med Progress Note Date of Service: Jul 17, 2016. Provider Documentation: SUBJECTIVE: The patient was seen and examined Denies any complaints Wants to go home OBJECTIVE: Vital Signs-as noted below Exam: General-Very Obese ,lying in bed without any distress Eyes-normal ENT-normal Neck-supple Lungs-clear to auscultate bilaterally Decreased breath sound bilaterally Heart-Regular,no murmur appreciated Abdomen-Benign,distended,difficult to feel for any Mass,bowel sound present Extremities-Bilateral leg edema-chronic Neuro-AAOx3 Lab data as noted below. ASSESSMENT & PLAN: Enterococcus UTI -symptoms ongoing for the past two weeks -admitting physician contacted with ID and started on IV Dapto -Repeat Urine Culture-Gm positive cocci -PlCC ordered Nausea likely 2/2 illness above. Not interfering with PO intake Symptomatic management 3DMII-multiple insulin allergies and can only take Novolin -N which was ordered at same dose as last admission. No carb coverage was ordered. Placed pharmacy consult for assistance. Most recent A1C is 6.2. Hypothyroidism-cont Synthroid Chronic respiratory failure-cont 4L NC, at baseline May Has Obesity Hypoventilation syndrome Chronic pain-cont Cymbalta (unwilling to come off this) Morbid obesity DVT proph: Lovenox. FULL CODE Dispo-to Med/Surg Vital Signs: Date Time Temp Pulse Resp B/P (MAP) Pulse Ox O2 Delivery O2 Flow Rate FiO2 07/17/16 15:06 36.6 65 20 137/65 (89) 94 Nasal Cannula 2.0 07/17/16 08:00 Nasal Cannula 3.5 07/17/16 07:51 36.7 78 20 151/65 (93) 95 Nasal Cannula 4.0 07/17/16 00:00 CPAP 07/16/16 23:22 36.9 65 20 128/65 (86) 94 CPAP 4.0 07/16/16 22:47 4.0 07/16/16 21:18 36.8 66 20 145/55 96 Nasal Cannula 3.5 07/16/16 19:49 36.8 66 20 145/55 (85) 96 3.5 07/16/16 19:24 36.8 70 22 156/73 99 07/16/16 18:59 36.8 70 156/73 99 Nasal Cannula 4.0 07/16/16 16:28 37.2 76 22 133/76 95 Nasal Cannula 3.5 Lab Results: Results Past 24 Hours Test 07/16/16 17:10 07/16/16 18:32 07/16/16 20:28 07/17/16 07:57 Range/Units Urine Color DK YELLOW Urine Appearance CLEAR CLEAR Urine pH 6.0 4.5-7.5 Urine Specific [place] 1.028 1.000-1.030 Urine Protein NEG NEG Urine Glucose (UA) NEG NEG Urine Ketones NEG NEG Urine Occult Blood TRACE NEG Urine Nitrite NEG NEG Urine Bilirubin NEG NEG Urine Urobilinogen NEG NEG Urine Leukocyte Esterase TRACE NEG Urine WBC (Auto) 5-10 0-5 /hpf Urine RBC (Auto) 5-10 0-4 /hpf Urine Hyaline Casts (Auto) 1-5 0-5 /lpf Urine Epithelial Cells (Auto) >30 0-5 /lpf Urine Bacteria (Auto) 1+ NEG White Blood Count 10.53 4.8-10.8 K/uL Red Blood Count 5.19 4.2-5.4 M/uL Hemoglobin 12.8 12.0-16.0 g/dL Hematocrit 42.1 37-47 % Mean Corpuscular Volume 81.1 80-100 fL Mean Corpuscular Hemoglobin 24.7 25-34 pg Mean Corpuscular Hemoglobin Concent 30.4 32-36 g/dl Platelet Count 153 130-400 K/uL Mean Platelet Volume 11.5 7.4-10.4 fL Neutrophils (%) (Auto) 69.0 % Lymphocytes (%) (Auto) 19.5 % Monocytes (%) (Auto) 7.6 % Eosinophils (%) (Auto) 3.1 % Basophils (%) (Auto) 0.3 % Neutrophils # (Auto) 7.27 1.4-6.5 K/uL Lymphocytes # (Auto) 2.05 1.2-3.4 K/uL Monocytes # (Auto) 0.80 0.11-0.59 K/uL Eosinophils # (Auto) 0.33 0-0.5 K/uL Basophils # (Auto) 0.03 0-0.2 K/uL RDW Standard Deviation 50.0 36.4-46.3 fL RDW Coefficient of Variation 16.6 11.5-14.5 % Immature Granulocyte % (Auto) 0.5 % Immature Granulocyte # (Auto) 0.05 0.00-0.02 K/uL Sodium Level 145 136-145 mmol/L Potassium Level 3.7 3.5-5.1 mmol/L Chloride Level 104 98-107 mmol/L Carbon Dioxide Level 34 21-32 mmol/L Anion Gap 7.0 3-11 mmol/L Blood Urea Nitrogen 13 7-18 mg/dl Creatinine 0.58 0.60-1.20 mg/dl Est Creatinine Clear Calc Drug Dose 146.7 ml/min Estimated GFR () 111.3 Estimated GFR (Non- 96.1 BUN/Creatinine Ratio 22.2 10-20 Random Glucose 205 70-99 mg/dl Calcium Level 8.1 8.5-10.1 mg/dl Total Bilirubin 0.3 0.2-1 mg/dl Aspartate Amino Transf (AST/SGOT) 12 15-37 U/L Alanine Aminotransferase (ALT/SGPT) 21 12-78 U/L Alkaline Phosphatase 93 45-117 U/L Total Protein 6.4 6.4-8.2 gm/dl Albumin 3.1 3.4-5.0 gm/dl Globulin 3.3 2.5-4.0 gm/dl Albumin/Globulin Ratio 0.9 0.9-2 Bedside Glucose 147 128 70-90 mg/dl Test 07/17/16 11:36 Range/Units Bedside Glucose 126 70-90 mg/dl Microbiology Results 07/16/16 Urine Culture - Preliminary, Resulted Gram Positive Cocci
--- NOTE | 2016-07-17 16:12 | Medical Consult ---
Consultation Date of Consultation: Jul 17, 2016. Attending Physician: Estefania Isaacs M.D. Reason for Consultation: Recurrent urinary tract infection with Enterococcus History of Present Illness 65-year-old female well known to the Infectious Disease service with history of numerous urinary tract infections, usually requiring treatment with IV antibiotics because of multiple drug allergies. For the past 1-2 weeks, patient has noted worsening dysuria with mild nausea, consistent with prior urinary tract infections. Urine culture has grown Enterococcus. Patient unable to take vancomycin, and she is on SSRI so cannot use Zyvox. she was awaiting insurance authorization for the use of tedizolid, but unlikely to be improved next week so patient came to the emergency room for treatment. She was started empirically on IV daptomycin. Urine culture now growing Gram- positive cocci, identification sensitivities are pending. Patient is tolerating daptomycin without apparent difficulty. Remains afebrile. No flank or abdominal pain. Past Medical/Surgical History Medical Problems: (1) Altered mental status Status: Acute (2) Altered mental status Status: Acute (3) Altered mental status Status: Acute (4) CO2 narcosis Status: Acute (5) Complicated UTI (urinary tract infection) Status: Acute (6) Hemoptysis Status: Acute (7) Hepatic encephalopathy Status: Acute (8) Hypercarbia Status: Acute (9) Hypoxia Status: Acute (10) Leukocytosis Status: Acute (11) Metabolic encephalopathy Status: Acute (12) Metabolic encephalopathy Status: Acute (13) Pneumonia Status: Acute (14) Pneumonia Status: Acute (15) Pneumonia Status: Acute (16) Respiratory acidosis Status: Acute (17) Respiratory acidosis Status: Acute (18) Respiratory failure Status: Acute (19) UTI (urinary tract infection) Status: Acute (20) UTI (urinary tract infection) Status: Acute Medical Problems: (1) Acute Pancreatitis (2) Altered mental status (3) Anxiety (4) Asthma (5) Body Mass Index 50.0-59.9, Adult (6) Cerebrovascular disease (7) Chronic hypercapnic respiratory failure (8) Chronic osteoarthritis (9) Chronic pain disorder (10) Crohn's disease (11) Depression (12) Diabetes mellitus, type II (13) Diabetic neuropathy (14) Diastolic heart failure (15) Dyslipidemia (16) Gastroparesis (17) Hypercapnic respiratory failure (18) Hypertension (19) Hypertrophic cardiomyopathy (20) Hypothyroidism (21) Necrotizing Fasciitis (22) Obesity hypoventilation syndrome (23) Pneumonia, organism unspecified (24) Recurrent UTI (25) Sleep apnea (26) Urin Tract Infection Nos Surgical Problems: (1) Status post partial nephrectomy (2) Status post repair nasal septum (3) Status post tonsillectomy Family History FH: asthma SISTER FH: dementia MOTHER FH: diabetes mellitus MOTHER GRANDMOTHER FH: heart disease FATHER GRANDMOTHER FH: hypertension MOTHER Social History Smoking Status: Never Smoker Smokeless Tobacco Use: No Alcohol Use: none Drug Use: none Marital Status: Housing Status: lives with family Occupation Status: disabled Allergies Coded Allergies: Fluoxetine (Verified Allergy, Severe, ANAPHYLAXIS, 07/16/16) Insulin (Verified Allergy, Severe, LANTUS/LEVEMIR- HIVES/THROAT SWELLING, 07/16/16) TOLERATES NOVOLIN N 11/19/15 aj (per pt phone call) Note: after patient had severe hives reaction from Lantus (many years ago), she had skin testing @ [facility] and was tested with many other insulins. Pt says she only tolerated NOVOLIN NPH. PT HAS TOLERATED NOVOLOG ON PREVIOUS ADMISSIONS. Has tolerated Aspart during multiple admissions (12/2013, 05/2015, 07/2015) Moxifloxacin (Verified Allergy, Severe, HIVES, 07/16/16) Nitrofurantoin (Verified Allergy, Severe, HIVES, 07/16/16) Paroxetine (Verified Allergy, Severe, HIVES, 07/16/16) Quinolones (Verified Allergy, Severe, AVELOX & LEVAQUIN-HIVES, 07/16/16) Amitriptyline (Verified Allergy, Intermediate, Sweats and itching, 07/16/16) Buspirone (Verified Allergy, Intermediate, HIVES, 07/16/16) Citalopram (Verified Allergy, Intermediate, HIVES-RASH, 07/16/16) Escitalopram (Verified Allergy, Intermediate, HIVES-RASH, 07/16/16) Methadone (Verified Allergy, Intermediate, HIVES, 07/16/16) Penicillins (Verified Allergy, Intermediate, RASH,HIVES, 07/16/16) Serotonin Reuptake Inhibitors (Verified Allergy, Intermediate, MIGRAINES TO SSRIs, 07/16/16) Trazodone (Verified Allergy, Intermediate, BLOODY NOSE, HEADACHES,HIVES, ) Vancomycin (Verified Allergy, Intermediate, HIVES, 07/16/16) Prednisone (Verified Allergy, Mild, CHEST TIGHTNESS, 07/16/16) Azithromycin (Verified Allergy, Unknown, HIVES, 07/16/16) Carbamazepine (Verified Allergy, Unknown, [id number], 07/16/16) Cefepime (Verified Allergy, Unknown, face & arm redness/itching after 2nd or 3rd dose cefepime, 07/16/16) Ceftriaxone (Verified Allergy, Unknown, Received in [facility] (but needed benadryl for course of therapy, 07/16/16) this was during 01/2016 [facility] admission for Rocephin Ciprofloxacin (Unverified Allergy, Unknown, ABD PAINS, 07/16/16) Sertraline (Verified Allergy, Unknown, UNKNOWN, 07/16/16) Sitagliptin (Verified Allergy, Unknown, HIVES, 07/16/16) Tetracyclines (Verified Adverse Reaction, Severe, HIVES, 07/16/16) Sulfa Antibiotics (Verified Adverse Reaction, Intermediate, MIGRAINES, 07/16) Fexofenadine (Verified Adverse Reaction, Mild, GI SYMPTOMS, 07/16/16) Tizanidine (Verified Adverse Reaction, Mild, ITCHING-HIVES, 07/16/16) Current Inpatient Medications Current Inpatient Medications Medications (Trade) Dose Ordered Sig/Keith Route Start Time Stop Time Status Last Admin Dose Admin Acetaminophen (Tylenol Tab) 650 mg Q4H PRN PO 07/16/16 20:30 08/15/16 20:29 Polyethylene (Miralax Powder Packet) 17 gm DAILY PRN PO 07/16/16 20:30 08/15/16 20:29 Ondansetron HCl (Zofran Inj) 4 mg Q6H PRN IV 07/16/16 20:30 08/15/16 20:29 07/17/16 12:13 4 MG Glucose (Glucose 40% Gel) 15-30 GRAMS 15 GRAMS... UD PRN PO 07/16/16 20:30 08/15/16 20:29 Glucose (Glucose Chew Tab) 4-8 Tablets 4 Tabl... UD PRN PO 07/16/16 20:30 08/15/16 20:29 Dextrose (Dextrose 50% 50ML Syringe) 25-50ML OF 50% DW IV FOR... UD PRN IV 07/16/16 20:30 08/15/16 20:29 Glucagon (Glucagon Inj) 1 mg UD PRN SQ 07/16/16 20:30 08/15/16 20:29 Miscellaneous Information (Consult Glycemic Management Pharmacy) 1 ea UD PRN N/A 07/16/16 20:37 08/15/16 20:36 Insulin Aspart (novoLOG ASPART) SLIDING SCALE ACHS SC 07/16/16 22:00 08/15/16 21:59 07/17/16 13:02 4 UNITS Daptomycin 580 mg/ Sodium Chloride 61.6 ml @ 100 mls/hr Q24H IV 07/17/16 16:00 07/20/16 16:37 Insulin Human NPH (novoLIN-N NPH) 40 units TIDM SC 07/17/16 08:00 08/16/16 07:59 07/17/16 13:02 40 UNITS Phenazopyridine HCl (Pyridium Tab) 200 mg TID PO 07/17/16 08:00 07/19/16 07:59 07/17/16 14:59 200 MG Enoxaparin Sodium (Lovenox Inj) 40 mg QAM SQ 07/17/16 08:00 08/16/16 07:59 07/17/16 08:58 40 MG Albuterol (Ventolin Hfa Inhaler) 2 puffs QID PRN INH 07/16/16 22:00 08/15/16 21:59 Albuterol Sulfate (Ventolin 0.083% 2.5MG/3ML Neb) 2.5 mg Q6H PRN INH 07/16/16 22:00 08/15/16 21:59 Aspirin (Ecotrin Tab) 81 mg DAILY PO 07/17/16 08:00 08/16/16 07:59 07/17/16 08:57 81 MG Atenolol (Tenormin Tab) 25 mg DAILY PO 07/17/16 08:00 08/16/16 07:59 07/17/16 08:57 25 MG Baclofen (Lioresal Tab) 20 mg TID PO 07/17/16 08:00 08/16/16 07:59 07/17/16 14:59 20 MG Celecoxib (CeleBREX CAP) 200 mg DAILY PO 07/17/16 08:00 08/16/16 07:59 07/17/16 08:56 200 MG Duloxetine HCl (Cymbalta Cap) 30 mg BID PO 07/17/16 08:00 08/16/16 07:59 07/17/16 08:59 30 MG Furosemide (Lasix Tab) 40 mg QAM PO 07/17/16 08:00 08/16/16 07:59 07/17/16 08:57 40 MG Hydroxyzine HCl (Vistaril Tab) 25 mg Q6H PRN PO 07/16/16 22:00 08/15/16 21:59 Lactulose (Chronulac Syrup) 10 gm DAILY PRN PO 07/16/16 22:00 08/15/16 21:59 Levothyroxine Sodium (Synthroid Tab) 100 mcg DAILYBB PO 07/17/16 06:30 08/16/16 06:29 07/17/16 05:59 100 MCG Lorazepam (Ativan Tab) 2 mg HS PO 07/16/16 22:00 08/15/16 21:59 07/16/16 23:16 2 MG Lorazepam (Ativan Tab) 1 mg BID PRN PO 07/16/16 22:00 08/15/16 21:59 Miconazole Nitrate (Desenex Powder) 1 appln BID PRN EXT 07/16/16 22:00 08/15/16 21:59 07/17/16 08:55 1 APPLN Montelukast Sodium (Singulair Tab) 10 mg HS PO 07/16/16 22:00 08/15/16 21:59 07/16/16 23:18 10 MG Nystatin (Mycostatin Crm) 1 appln BID PRN EXT 07/16/16 22:00 08/15/16 21:59 Ondansetron HCl (Zofran Tab) 4 mg Q6H PRN PO 07/16/16 22:00 08/15/16 21:59 Pantoprazole Sodium (Protonix Tab) 40 mg QAM PO 07/17/16 08:00 08/16/16 07:59 07/17/16 08:57 40 MG Potassium Chloride (Klor-Con Tab) 20 meq BID PO 07/17/16 08:00 08/16/16 07:59 07/17/16 08:56 20 MEQ Pregabalin (Lyrica Cap) 200 mg TID PO 07/17/16 08:00 08/16/16 07:59 07/17/16 14:59 200 MG Silver Sulfadiazine (Silvadene Crm 1% 400GM Jar) 1 appln DAILY PRN EXT 07/16/16 22:00 08/15/16 21:59 Simvastatin (Zocor Tab) 20 mg HS PO 07/16/16 22:00 08/15/16 21:59 07/16/16 23:17 20 MG Sumatriptan Succinate (Imitrex Tab) 100 mg UD PRN PO 07/16/16 22:00 08/15/16 21:59 Tiotropium [place] (Spiriva Handihaler Inhaler) 1 puff QAM INH 07/17/16 08:00 08/16/16 07:59 07/17/16 08:59 1 PUFF Ursodiol (Actigall Cap) 600 mg BID PO 07/17/16 08:00 08/16/16 07:59 07/17/16 08:56 600 MG Miscellaneous Information (Order Awaiting Action) 1 ea QS N/A 07/17/16 00:00 08/16/16 00:00 Review of Systems Constitutional: No fever, No chills Eyes: No problem reported ENT: No problem reported Respiratory: No problem reported Cardiovascular: No problem reported Abdomen: + nausea, No vomiting Genitourinary - Female: + dysuria, No hematuria Neurologic: No problem reported Psychiatric: No problem reported Endocrine: No problem reported Hematologic / Lymphatic: No problem reported Integumentary: No bleeding Allergic / Immunologic: No problem reported Physical Exam Date Time Temp Pulse Resp B/P (MAP) Pulse Ox O2 Delivery O2 Flow Rate FiO2 07/17/16 15:06 36.6 65 20 137/65 (89) 94 Nasal Cannula 2.0 07/17/16 08:00 Nasal Cannula 3.5 07/17/16 07:51 36.7 78 20 151/65 (93) 95 Nasal Cannula 4.0 07/17/16 00:00 CPAP 07/16/16 23:22 36.9 65 20 128/65 (86) 94 CPAP 4.0 07/16/16 22:47 4.0 07/16/16 21:18 36.8 66 20 145/55 96 Nasal Cannula 3.5 07/16/16 19:49 36.8 66 20 145/55 (85) 96 3.5 07/16/16 19:24 36.8 70 22 156/73 99 07/16/16 18:59 36.8 70 156/73 99 Nasal Cannula 4.0 07/16/16 16:28 37.2 76 22 133/76 95 Nasal Cannula 3.5 General Appearance: WD/WN, no apparent distress, + obese Head: normocephalic, atraumatic Eyes: normal inspection, EOMI, sclerae normal ENT: normal ENT inspection, pharynx normal Neck: supple, no adenopathy, thyroid normal, trachea midline Respiratory/Chest: chest non-tender, lungs clear, normal breath sounds, no respiratory distress Cardiovascular: regular rate, rhythm, no gallop, no murmur Abdomen/GI: normal bowel sounds, non tender, soft, no organomegaly Back: normal inspection, no CVA tenderness Extremities/Musculoskelatal: normal inspection, no calf tenderness, non-tender Neurologic/Psych: alert, oriented x 3 Skin: normal color, warm/dry, no rash Lymphatic: no adenopathy Laboratory Results Date/Time Source Procedure Growth Status 07/16/16 17:10 Urine,Catheterized Urine Culture - Preliminary Gram Positive Cocci Resulted Last 24 Hours Test 07/16/16 17:10 07/16/16 18:32 07/16/16 20:28 07/17/16 07:57 Urine Color DK YELLOW Urine Appearance CLEAR Urine pH 6.0 Urine Specific [place] 1.028 Urine Protein NEG Urine Glucose (UA) NEG Urine Ketones NEG Urine Occult Blood TRACE Urine Nitrite NEG Urine Bilirubin NEG Urine Urobilinogen NEG Urine Leukocyte Esterase TRACE Urine WBC (Auto) 5-10 /hpf Urine RBC (Auto) 5-10 /hpf Urine Hyaline Casts (Auto) 1-5 /lpf Urine Epithelial Cells (Auto) >30 /lpf Urine Bacteria (Auto) 1+ White Blood Count 10.53 K/uL Red Blood Count 5.19 M/uL Hemoglobin 12.8 g/dL Hematocrit 42.1 % Mean Corpuscular Volume 81.1 fL Mean Corpuscular Hemoglobin 24.7 pg Mean Corpuscular Hemoglobin Concent 30.4 g/dl Platelet Count 153 K/uL Mean Platelet Volume 11.5 fL Neutrophils (%) (Auto) 69.0 % Lymphocytes (%) (Auto) 19.5 % Monocytes (%) (Auto) 7.6 % Eosinophils (%) (Auto) 3.1 % Basophils (%) (Auto) 0.3 % Neutrophils # (Auto) 7.27 K/uL Lymphocytes # (Auto) 2.05 K/uL Monocytes # (Auto) 0.80 K/uL Eosinophils # (Auto) 0.33 K/uL Basophils # (Auto) 0.03 K/uL RDW Standard Deviation 50.0 fL RDW Coefficient of Variation 16.6 % Immature Granulocyte % (Auto) 0.5 % Immature Granulocyte # (Auto) 0.05 K/uL Sodium Level 145 mmol/L Potassium Level 3.7 mmol/L Chloride Level 104 mmol/L Carbon Dioxide Level 34 mmol/L Anion Gap 7.0 mmol/L Blood Urea Nitrogen 13 mg/dl Creatinine 0.58 mg/dl Est Creatinine Clear Calc Drug Dose 146.7 ml/min Estimated GFR () 111.3 Estimated GFR (Non- 96.1 BUN/Creatinine Ratio 22.2 Random Glucose 205 mg/dl Calcium Level 8.1 mg/dl Total Bilirubin 0.3 mg/dl Aspartate Amino Transf (AST/SGOT) 12 U/L Alanine Aminotransferase (ALT/SGPT) 21 U/L Alkaline Phosphatase 93 U/L Total Protein 6.4 gm/dl Albumin 3.1 gm/dl Globulin 3.3 gm/dl Albumin/Globulin Ratio 0.9 Bedside Glucose 147 mg/dl 128 mg/dl Test 07/17/16 11:36 Bedside Glucose 126 mg/dl Assessment & Plan Recurrent urinary tract infection with Enterococcus in the setting of multiple antibiotic allergies. Given lack of alternatives, daptomycin appropriate therapy, and would recommend 10 days of IV therapy, hopefully which can be completed as an outpatient once patient can get PICC line and insurance authorization. Will follow while patient in hospital.
[2016-07-17] MEDS: DAPTOMYCIN IV SCH (16:38)
[2016-07-17] MEDS: SODIUM CHLORIDE 0.9% IV SCH (16:38)
[2016-07-17] MEDS: LORAZEPAM 2 MG TAB PO SCH (20:45)
[2016-07-17] MEDS: MONTELUKAST SOD 10 MG TAB PO SCH (20:47)
[2016-07-17] MEDS: SIMVASTATIN 20 MG TAB PO SCH (20:47)
[2016-07-17 22:09] VITALS: PULSE 67; O2SAT 97
[2016-07-17 22:55] VITALS: BP 127/74; PULSE 63; TEMP 36.9; O2SAT 95
[2016-07-18] MEDS: LEVOTHYROXINE 100 MCG TAB PO SCH (06:11)
[2016-07-18 06:36] VITALS: BP 120/63; PULSE 71; TEMP 36.5; O2SAT 95
[2016-07-18 07:32] LABS: HEMATOCRIT 40.8 % (37-47); MEAN CELL VOLUME 81.8 fL (80-100); MEAN CORPUSCULAR HEMOGLOBIN 24.6 pg (25-34); MEAN CORPUSCULAR HGB CONC 30.1 g/dl (32-36); MEAN PLATELET VOLUME 11.8 fL (7.4-10.4); PLATELET COUNT 145 K/uL (130-400); RED BLOOD COUNT 4.99 M/uL (4.2-5.4); WHITE BLOOD COUNT 8.72 K/uL (4.8-10.8)
[2016-07-18 08:00] LABS: BUN/CREATININE RATIO 21.1 (10-20); CALCIUM 8.2 mg/dl (8.5-10.1); CREATININE 0.49 mg/dl (0.60-1.20); POTASSIUM 3.8 mmol/L (3.5-5.1)
[2016-07-18] MEDS: PREGABALIN 100 MG CAP PO SCH ×3 (08:41→20:50)
[2016-07-18] MEDS: BACLOFEN TAB 20 MG TAB PO SCH ×3 (08:42→20:49)
[2016-07-18] MEDS: URSODIOL 300 MG CAP PO SCH ×2 (08:43→20:49)
[2016-07-18] MEDS: POTASSIUM CHLORIDE 20 MEQ TABCR PO SCH ×2 (08:43→20:49)
[2016-07-18] MEDS: PHENAZOPYRIDINE HCL 200 MG TAB PO SCH ×3 (08:44→20:49)
[2016-07-18] MEDS: FUROSEMIDE 40 MG TAB PO SCH (08:44)
[2016-07-18] MEDS: ASPIRIN 81 MG ECTAB PO SCH (08:44)
[2016-07-18] MEDS: PANTOprazole SOD 40 MG TAB PO SCH (08:44)
[2016-07-18] MEDS: DULOXETINE (CYMBALTA) 30 MG CAP PO SCH ×2 (08:45→20:49)
[2016-07-18] MEDS: TIOTROPIUM BROMIDE 5 PUFF/90 MCG INH INH SCH (08:46)
[2016-07-18] MEDS: ENOXAPARIN 40 MG/0.4 ML SYR SQ SCH (08:47)
[2016-07-18] MEDS: CeleBREX 200 MG CAP PO SCH (08:47)
[2016-07-18] MEDS: INSULIN ASPART 100 UNITS/ML 3 ML PEN SC SCH ×4 (08:59→20:51)
[2016-07-18] MEDS: INSULIN HUMAN NPH SC SCH ×3 (09:15→18:12)
[2016-07-18] MEDS: CALCIUM CARBONATE 500 MG CHEWABLE PO PRN (14:18)
[2016-07-18 14:45] VITALS: BP 113/67; PULSE 78; TEMP 36.7; O2SAT 96
--- NOTE | 2016-07-18 15:07 | Pharmacy Progress Note ---
Glycemic: Assessment & Plan Date of Service Jul 18, 2016. Assessment & Plan ASSESSMENT: * 65 yo diabetic F known to our service from prior admissions, here for treatment of UTI * She tolerated NPH three times daily at a reduced regimen last admission nearly a month ago so that is where we started this admission * Even though this regimen is unconventional, her BSGs have looked great, ranging 125-134 mg/dL over the past 24 hours * I see no need to change her regimen now, but we may actually need to slowly increase her NPH to maintain control PLAN: * NPH 40 units TIDM * Novolog ACHS * Goal Range: Low 110 mg/dL - High 140 mg/dL * Correction Factor: 10 mg/dL/unit * Carb ratio of 1 unit per 4 grams CHO consumed BSGs continue to improve, no changes needed to inpatient regimen at this time. Pharmacy will continue to monitor patient daily and write orders per [facility] inpatient glycemic control protocol. Thanks. * Please note that the plan above was derived based on current level of insulin resistance and hospital stress. These recommendations are appropriate for inpatient admission only. Plan of care upon discharge will need to be reassessed to avoid potential outpatient hypo/hyperglycemia.
[2016-07-18] MEDS: SODIUM CHLORIDE 0.9% IV SCH (17:21)
[2016-07-18] MEDS: DAPTOMYCIN IV SCH (17:21)
--- NOTE | 2016-07-18 19:19 | Progress Note ---
Internal Med Progress Note Date of Service: Jul 18, 2016. Provider Documentation: SUBJECTIVE: resting comfortably afebrile eating ok 'no nausea or abdominal pain no hematuria OBJECTIVE: Vital Signs-as noted below Exam: General-alert and awake. Not in distress. Obese ENT-Normal hearing Neck-no neck masses, supple Lungs-cta b/l no wheezing or crackles Heart-s1 and s2 heard regular rate and rhythm, no murmurs Abdomen-soft bowel sounds present non tender no distension Extremities-chronic lower extremity edema present , no erythema Neuro-alert and awake moves extremities Lab data as noted below. ASSESSMENT & PLAN: Enterococcus UTI symptoms ongoing for the past two weeks on daptomycin ID consulted and recommended 10days of iv daptomycin as patient has multiple allergies s/p picc line Nausea likely 2/2 illness above. Not interfering with PO intake Symptomatic management improved 3DMII-multiple insulin allergies and can only take Novolin -N which was ordered at same dose as last admission. Pharmacy consulted for assistance. Most recent A1C is 6.2. Hypothyroidism-cont Synthroid Chronic respiratory failure-cont 4L NC, at baseline May Has Obesity Hypoventilation syndrome Chronic pain-cont Cymbalta (unwilling to come off this) Morbid obesity DVT proph: Lovenox. DISPOSITION pt/ot possible d/c in am Vital Signs: Date Time Temp Pulse Resp B/P (MAP) Pulse Ox O2 Delivery O2 Flow Rate FiO2 07/18/16 16:00 Nasal Cannula 3.5 07/18/16 14:45 36.7 78 20 113/67 (82) 96 Nasal Cannula 4.0 07/18/16 08:00 Nasal Cannula 3.5 07/18/16 06:36 36.5 71 18 120/63 (82) 95 Nasal Cannula 4.0 07/18/16 00:00 Nasal Cannula 07/17/16 22:55 36.9 63 18 127/74 (91) 95 CPAP 4.0 07/17/16 22:09 67 97 4.0 07/17/16 20:00 Nasal Cannula Lab Results: Results Past 24 Hours Test 07/17/16 20:13 07/18/16 07:05 07/18/16 07:39 07/18/16 12:04 Range/Units Bedside Glucose 134 139 171 70-90 mg/dl White Blood Count 8.72 4.8-10.8 K/uL Red Blood Count 4.99 4.2-5.4 M/uL Hemoglobin 12.3 12.0-16.0 g/dL Hematocrit 40.8 37-47 % Mean Corpuscular Volume 81.8 80-100 fL Mean Corpuscular Hemoglobin 24.6 25-34 pg Mean Corpuscular Hemoglobin Concent 30.1 32-36 g/dl RDW Standard Deviation 50.2 36.4-46.3 fL RDW Coefficient of Variation 16.8 11.5-14.5 % Platelet Count 145 130-400 K/uL Mean Platelet Volume 11.8 7.4-10.4 fL Sodium Level 147 136-145 mmol/L Potassium Level 3.8 3.5-5.1 mmol/L Chloride Level 107 98-107 mmol/L Carbon Dioxide Level 33 21-32 mmol/L Anion Gap 7.0 3-11 mmol/L Blood Urea Nitrogen 10 7-18 mg/dl Creatinine 0.49 0.60-1.20 mg/dl Est Creatinine Clear Calc Drug Dose 173.6 ml/min Estimated GFR () 117.7 Estimated GFR (Non- 101.5 BUN/Creatinine Ratio 21.1 10-20 Random Glucose 138 70-99 mg/dl Calcium Level 8.2 8.5-10.1 mg/dl Test 07/18/16 16:34 Range/Units Bedside Glucose 218 70-90 mg/dl
[2016-07-18] MEDS: MONTELUKAST SOD 10 MG TAB PO SCH (20:49)
[2016-07-18] MEDS: LORAZEPAM 2 MG TAB PO SCH (20:49)
[2016-07-18] MEDS: SIMVASTATIN 20 MG TAB PO SCH (20:49)
[2016-07-18 21:47] VITALS: PULSE 67; O2SAT 96
[2016-07-18 23:10] VITALS: BP 120/66; PULSE 62; TEMP 36.6; O2SAT 95
[2016-07-19] MEDS: LEVOTHYROXINE 100 MCG TAB PO SCH (06:14)
[2016-07-19 07:11] VITALS: BP 119/61; PULSE 87; TEMP 36.6; O2SAT 95
[2016-07-19 07:44] LABS: MEAN CELL VOLUME 81.8 fL (80-100); MEAN CORPUSCULAR HEMOGLOBIN 24.5 pg (25-34); MEAN PLATELET VOLUME 11.4 fL (7.4-10.4); PLATELET COUNT 137 K/uL (130-400); RED BLOOD COUNT 4.89 M/uL (4.2-5.4); WHITE BLOOD COUNT 8.03 K/uL (4.8-10.8)
[2016-07-19 08:15] LABS: CREATININE 0.6 mg/dl (0.60-1.20)
[2016-07-19] MEDS: PREGABALIN 100 MG CAP PO SCH ×2 (09:05→13:24)
[2016-07-19] MEDS: ENOXAPARIN 40 MG/0.4 ML SYR SQ SCH (09:06)
[2016-07-19] MEDS: FUROSEMIDE 40 MG TAB PO SCH (09:07)
[2016-07-19] MEDS: DULOXETINE (CYMBALTA) 30 MG CAP PO SCH (09:07)
[2016-07-19] MEDS: ASPIRIN 81 MG ECTAB PO SCH (09:08)
[2016-07-19] MEDS: PANTOprazole SOD 40 MG TAB PO SCH (09:08)
[2016-07-19] MEDS: CALCIUM CARBONATE 500 MG CHEWABLE PO PRN (09:09)
[2016-07-19] MEDS: URSODIOL 300 MG CAP PO SCH (09:09)
[2016-07-19] MEDS: CeleBREX 200 MG CAP PO SCH (09:10)
[2016-07-19] MEDS: POTASSIUM CHLORIDE 20 MEQ TABCR PO SCH (09:11)
[2016-07-19] MEDS: BACLOFEN TAB 20 MG TAB PO SCH ×2 (09:11→13:16)
[2016-07-19] MEDS: TIOTROPIUM BROMIDE 5 PUFF/90 MCG INH INH SCH (09:12)
[2016-07-19] MEDS: INSULIN ASPART 100 UNITS/ML 3 ML PEN SC SCH ×3 (09:21→18:22)
[2016-07-19] MEDS: INSULIN HUMAN NPH SC SCH ×3 (09:22→18:23)
[2016-07-19] MEDS ORDERED: METFORMIN HCL 500 MG TABCR PO ONE (09:30)
--- NOTE | 2016-07-19 10:17 | Infectious Disease Progress Nt ---
Progress Note Date of Service Jul 19, 2016. Subjective Pt evaluation today including: conversation w/ patient, physical exam, chart review, lab review, review of studies, conversation w/ retail client solutions consultant, review of inpatient medication list No new complaints. remains afebrile. Tolerating daptomycin. All Other Systems: Reviewed and Negative Medications Current Inpatient Medications Medications (Trade) Dose Ordered Sig/Keith Route Start Time Stop Time Status Last Admin Dose Admin Acetaminophen (Tylenol Tab) 650 mg Q4H PRN PO 07/16/16 20:30 08/15/16 20:29 Polyethylene (Miralax Powder Packet) 17 gm DAILY PRN PO 07/16/16 20:30 08/15/16 20:29 Ondansetron HCl (Zofran Inj) 4 mg Q6H PRN IV 07/16/16 20:30 08/15/16 20:29 07/17/16 21:38 4 MG Glucose (Glucose 40% Gel) 15-30 GRAMS 15 GRAMS... UD PRN PO 07/16/16 20:30 08/15/16 20:29 Glucose (Glucose Chew Tab) 4-8 Tablets 4 Tabl... UD PRN PO 07/16/16 20:30 08/15/16 20:29 Dextrose (Dextrose 50% 50ML Syringe) 25-50ML OF 50% DW IV FOR... UD PRN IV 07/16/16 20:30 08/15/16 20:29 Glucagon (Glucagon Inj) 1 mg UD PRN SQ 07/16/16 20:30 08/15/16 20:29 Miscellaneous Information (Consult Glycemic Management Pharmacy) 1 ea UD PRN N/A 07/16/16 20:37 08/15/16 20:36 Insulin Aspart (novoLOG ASPART) SLIDING SCALE ACHS SC 07/16/16 22:00 08/15/16 21:59 07/19/16 09:21 11 UNITS Daptomycin 580 mg/ Sodium Chloride 61.6 ml @ 100 mls/hr Q24H IV 07/17/16 16:00 07/20/16 16:37 07/18/16 17:21 100 MLS/HR Insulin Human NPH (novoLIN-N NPH) 40 units TIDM SC 07/17/16 08:00 08/16/16 07:59 07/19/16 09:22 40 UNITS Enoxaparin Sodium (Lovenox Inj) 40 mg QAM SQ 07/17/16 08:00 08/16/16 07:59 07/19/16 09:06 40 MG Albuterol (Ventolin Hfa Inhaler) 2 puffs QID PRN INH 07/16/16 22:00 08/15/16 21:59 Albuterol Sulfate (Ventolin 0.083% 2.5MG/3ML Neb) 2.5 mg Q6H PRN INH 07/16/16 22:00 08/15/16 21:59 Aspirin (Ecotrin Tab) 81 mg DAILY PO 07/17/16 08:00 08/16/16 07:59 07/19/16 09:08 81 MG Atenolol (Tenormin Tab) 25 mg DAILY PO 07/17/16 08:00 08/16/16 07:59 07/19/16 09:08 25 MG Baclofen (Lioresal Tab) 20 mg TID PO 07/17/16 08:00 08/16/16 07:59 07/19/16 09:11 20 MG Celecoxib (CeleBREX CAP) 200 mg DAILY PO 07/17/16 08:00 08/16/16 07:59 07/19/16 09:10 200 MG Duloxetine HCl (Cymbalta Cap) 30 mg BID PO 07/17/16 08:00 08/16/16 07:59 07/19/16 09:07 30 MG Furosemide (Lasix Tab) 40 mg QAM PO 07/17/16 08:00 08/16/16 07:59 07/19/16 09:07 40 MG Hydroxyzine HCl (Vistaril Tab) 25 mg Q6H PRN PO 07/16/16 22:00 08/15/16 21:59 Lactulose (Chronulac Syrup) 10 gm DAILY PRN PO 07/16/16 22:00 08/15/16 21:59 Levothyroxine Sodium (Synthroid Tab) 100 mcg DAILYBB PO 07/17/16 06:30 08/16/16 06:29 07/19/16 06:14 100 MCG Lorazepam (Ativan Tab) 2 mg HS PO 07/16/16 22:00 08/15/16 21:59 07/18/16 20:49 2 MG Lorazepam (Ativan Tab) 1 mg BID PRN PO 07/16/16 22:00 08/15/16 21:59 Miconazole Nitrate (Desenex Powder) 1 appln BID PRN EXT 07/16/16 22:00 08/15/16 21:59 07/17/16 08:55 1 APPLN Montelukast Sodium (Singulair Tab) 10 mg HS PO 07/16/16 22:00 08/15/16 21:59 07/18/16 20:49 10 MG Nystatin (Mycostatin Crm) 1 appln BID PRN EXT 07/16/16 22:00 08/15/16 21:59 Ondansetron HCl (Zofran Tab) 4 mg Q6H PRN PO 07/16/16 22:00 08/15/16 21:59 07/19/16 09:09 4 MG Pantoprazole Sodium (Protonix Tab) 40 mg QAM PO 07/17/16 08:00 08/16/16 07:59 07/19/16 09:08 40 MG Potassium Chloride (Klor-Con Tab) 20 meq BID PO 07/17/16 08:00 08/16/16 07:59 07/19/16 09:11 20 MEQ Pregabalin (Lyrica Cap) 200 mg TID PO 07/17/16 08:00 08/16/16 07:59 07/19/16 09:05 200 MG Silver Sulfadiazine (Silvadene Crm 1% 400GM Jar) 1 appln DAILY PRN EXT 07/16/16 22:00 08/15/16 21:59 Simvastatin (Zocor Tab) 20 mg HS PO 07/16/16 22:00 08/15/16 21:59 07/18/16 20:49 20 MG Sumatriptan Succinate (Imitrex Tab) 100 mg UD PRN PO 07/16/16 22:00 08/15/16 21:59 Tiotropium [place] (Spiriva Handihaler Inhaler) 1 puff QAM INH 07/17/16 08:00 08/16/16 07:59 07/19/16 09:12 1 PUFF Ursodiol (Actigall Cap) 600 mg BID PO 07/17/16 08:00 08/16/16 07:59 07/19/16 09:09 600 MG Miscellaneous Information (Order Awaiting Action) 1 ea QS N/A 07/17/16 00:00 08/16/16 00:00 Calcium Carbonate (Tums Chew Tab) 500 mg TID PRN PO 07/18/16 13:00 08/17/16 12:59 07/19/16 09:09 500 MG Heparin Sodium (Porcine) (Heparin 10 Unit/ ml 5 ml Flush) 5 ml PRN PRN FLUSH 07/18/16 19:15 08/17/16 19:14 07/19/16 08:43 5 ML Metformin HCl (Glucophage Extended Rel Tab) 500 mg BIDM PO 07/19/16 17:00 08/18/16 16:59 Objective Vital Signs Date Time Temp Pulse Resp B/P (MAP) Pulse Ox O2 Delivery O2 Flow Rate FiO2 07/19/16 07:11 36.6 87 18 119/61 (80) 95 Nasal Cannula 4.0 07/19/16 00:00 BiPAP 4.0 07/18/16 23:10 36.6 62 18 120/66 (84) 95 CPAP 4.0 07/18/16 21:47 67 96 4.0 07/18/16 20:00 Nasal Cannula 3.5 07/18/16 16:00 Nasal Cannula 3.5 07/18/16 14:45 36.7 78 20 113/67 (82) 96 Nasal Cannula 4.0 Physical Exam General Appearance: WD/WN, no apparent distress, + obese Eyes: normal inspection, sclerae normal ENT: normal ENT inspection, pharynx normal Neck: supple, no adenopathy, trachea midline Respiratory/Chest: lungs clear, normal breath sounds, no respiratory distress Cardiovascular: regular rate, rhythm, no gallop, no murmur Abdomen: normal bowel sounds, non tender, soft, no organomegaly Extremities: non-tender, no calf tenderness Neurologic/Psychiatric: alert, oriented x 3 Skin: normal color, warm/dry, no rash Lymphatic: no adenopathy Laboratory Results RUN DATE: 07/18/16 [facility] LAB PAGE 1 RUN TIME: 1346 Specimen Inquiry PATIENT: DAVID MAYO LOC: [id number] U # : [id number] AGE/SX: 65/F ROOM: [facility] REG : 07/16/[address]: Ye Acosta MD : [id number] BED: 2 DIS : STATUS: ADM IN TLOC: SPEC #: [id number] ZELDA: 07/16/16 STATUS: COMP REQ #: [id number] RECD: 07/16/[address]: Gricel Ravi DO SOURCE: URINE CATH ENTR: 07/16/[address] [facility] [address]: Meghan Almanza, Assigned SPDESC: Deidre Mayo DO ORDERED: CULTURE UR CATH COMMENTS: Has Specimen Been Obtained/Collected? Y Procedure Result Verified Site URINE CULTURE Final 07/18/16-1346 Organism 1 ENTEROCOCCUS FAECALIS COLONY COUNT >100,000 CFU/ml SENS SENSITIVITY TO FOLLOW 1. ENTEROCOCCUS FAECALIS Target Route Dose RX AB Cost M.I.C. IQ ------ ----- ------ -- ------ -------- - ------ AMPICILLIN S <=2 GENT SYNERGY R >500 VANCOMYCIN S 2 PENICILLIN S 2 CIPROFLOXACIN S <=1 LEVOFLOXACIN S <=1 DAPTOMYCIN S 4 NITROFURANTOIN S <=32 STREP SYNERGY S <=1000 Streptomycin Synergy Screen S Gentamicin Synergy Screen R S = SENSITIVE I = INTERMEDIATE R = RESISTANT Last 24 Hours Test 07/18/16 12:04 07/18/16 16:34 07/18/16 19:32 07/19/16 07:25 Bedside Glucose 171 mg/dl 218 mg/dl 177 mg/dl White Blood Count 8.03 K/uL Red Blood Count 4.89 M/uL Hemoglobin 12.0 g/dL Hematocrit 40.0 % Mean Corpuscular Volume 81.8 fL Mean Corpuscular Hemoglobin 24.5 pg Mean Corpuscular Hemoglobin Concent 30.0 g/dl RDW Standard Deviation 49.4 fL RDW Coefficient of Variation 16.5 % Platelet Count 137 K/uL Mean Platelet Volume 11.4 fL Creatinine 0.60 mg/dl Est Creatinine Clear Calc Drug Dose 141.8 ml/min Estimated GFR () 110.1 Estimated GFR (Non- 95.0 Test 07/19/16 07:44 Bedside Glucose 156 mg/dl Assessment and Plan Recurrent urinary tract infection with Enterococcus in the setting of multiple antibiotic allergies. Given lack of alternatives, daptomycin appropriate therapy, and would recommend 10 days of IV therapy, hopefully which can be completed as an outpatient once patient can get PICC line and insurance authorization. Will follow while patient in hospital.
[2016-07-19 11:29] VITALS: BP 152/86
--- NOTE | 2016-07-19 12:17 | Pharmacy Progress Note ---
Glycemic Control: Progress Nt Date of Service Jul 19, 2016. Scope Glycemic Pharmacist consulted for glycemic control and to write orders per [facility] inpatient glycemic control protocol. Objective Accuchecks BSG (last 24hrs): Test 07/18/16 16:34 07/18/16 19:32 07/19/16 07:44 07/19/16 11:22 Bedside Glucose 218 mg/dl (70-90) 177 mg/dl (70-90) 156 mg/dl (70-90) 154 mg/dl (70-90) Laboratory Data (last 24hrs) HbA1c: 6.2% on 06/20/16 Recent Pertinent Medications Outpatient Anti-diabetic Regimen: * NPH 70 units SQ TIDM * Metformin 500mg PO BIDM The patient is currently receiving: * Basal insulin: NPH 40 units SQ TIDM * Correctional Insulin: Novolog Correction per scale ACHS Goal Range: Low 110 mg/dL - High 140 mg/dL Correction Factor: 10 mg/dL/unit * Prandial insulin: Per carb ratio of 1 unit per 4 grams CHO consumed * Oral Agents: On hold for admission Risk Factors for Insulin Resistance: * Infection * Diet Assessment & Plan ASSESSMENT: * 65 yo diabetic F known to our service from prior admissions, here for treatment of UTI * Pt with multiple insulin allergies - therefore unconventional regimen of NPH TIDM utilized as an outpatient and inpatient * Pt is currently receiving regimen similar to inpatient regimen from 06/2016. * Patient is currently receiving an average of 150 units of insulin per day * BSGs ranging 139 - 218 over the past 24hrs * Changes needed to regimen at this time: * AM Fasting BSG = 156mg/dl --> this is just slightly above goal range and basal insulin could be increased as it is currently being dosed below outpatient dosing. * Post-prandial BSGs are elevated/BSGs rise throughout the day therefore bolus insulin parameters (CF/CR) could be tightened. * Pt to discharge soon - ADA recommends re-initiating oral agents 102 days prior to discharge * Will resume metformin and not make any adjustments to insulin until effects of metformin are assessed. PLAN FOR INPATIENT GLYCEMIC CONTROL: * Resume outpatient oral diabetes medications * Metformin ER 500mg PO BIDM * Basal insulin * NPH 40units SQ TIDM * Bolus insulin * NovoLog per scale ACHS or Q6hrs while NPO * Goal Range: Low 110 mg/dL - High 140 mg/dL * Correction Factor: 10 mg/dL/unit * Nutritional / Prandial insulin per carb ratio of 1 unit per 4 grams CHO consumed * Please note that the plan above was derived based on current level of insulin resistance and hospital stress. These recommendations are appropriate for inpatient admission only. Plan of care upon discharge will need to be reassessed to avoid potential outpatient hypo/hyperglycemia. Thank you.
[2016-07-19] MEDS ORDERED: DAPTOMYCIN IV SCH (13:00)
[2016-07-19] MEDS ORDERED: SODIUM CHLORIDE 0.9% IV SCH (13:00)
[2016-07-19 16:00] VITALS: O2SAT 95
[2016-07-19 16:01] VITALS: BP 115/65; PULSE 65; TEMP 36.7; O2SAT 94
--- NOTE | 2016-07-19 16:37 | Discharge Instructions ---
Discharge Instructions Date of Service Jul 19, 2016. Admission Reason for Admission: Recurrent Uti Discharge Discharge Diagnosis / Problem: RECURRENT UTI Discharge Goals Goal(s): Decrease discomfort Activity Recommendations Activity Limitations: resume your previous activity . Instructions / Follow-Up Instructions / Follow-Up FOLLOWUP WITH FAMILY DOCTOR ON July AT 2:20PM Current Hospital Diet Patient's current hospital diet: Diabetes Type 2 Diet Discharge Diet Recommended Diet: AHA Diet (Heart Healthy), Diabetes Type 2 Diet Pending Studies Studies pending at discharge: no Laboratory Results Hemoglobin A1c Test 06/20/16 15:46 Range/Units Estimated Average Glucose 131 mg/dl Hemoglobin A1c 6.2 H 4.5-5.6 % Medical Emergencies . Who to Call and When: Medical Emergencies: If at any time you feel your situation is an emergency, please call 911 immediately. . Non-Emergent Contact Non-Emergency issues call your: Primary Care Provider . . "Provider Documentation" section prepared by eY Acosta. . VTE Core Measure Inpt VTE Proph given/why not?: Enoxaparin (Lovenox)SQ
[2016-07-19] MEDS ORDERED: METFORMIN HCL 500 MG TABCR PO SCH (17:00)
[2016-07-19 18:53] VITALS: BP 115/65; PULSE 65; TEMP 36.7; O2SAT 94
--- NOTE | 2016-07-19 19:55 | Progress Note ---
Internal Med Progress Note Date of Service: Jul 19, 2016. Provider Documentation: SUBJECTIVE: resting comfortably no noncompliants no nausea wants to be discharged today OBJECTIVE: Vital Signs-as noted below Exam: General-alert and awake. Not in distress. Obese ENT-Normal hearing Neck-no neck masses, supple Lungs-cta b/l no wheezing or crackles Heart-s1 and s2 heard regular rate and rhythm, no murmurs Abdomen-soft bowel sounds present non tender no distension Extremities-chronic lower extremity edema present , no erythema Neuro-alert and awake moves extremities Lab data as noted below. ASSESSMENT & PLAN: Enterococcus UTI symptoms ongoing for the past two weeks on daptomycin ID consulted and recommended 10days of iv daptomycin as patient has multiple allergies s/p picc line discharged home today Nausea likely 2/2 illness above. Not interfering with PO intake Symptomatic management improved 3DMII-multiple insulin allergies and can only take Novolin -N which was ordered at same dose as last admission. Pharmacy consulted for assistance. Most recent A1C is 6.2. f/u with pcp Hypothyroidism-cont Synthroid Chronic respiratory failure-cont 4L NC, at baseline May Has Obesity Hypoventilation syndrome Chronic pain-cont Cymbalta (unwilling to come off this) Morbid obesity DISCHARGED HOME WITH HOME HEALTH Vital Signs: Date Time Temp Pulse Resp B/P (MAP) Pulse Ox O2 Delivery O2 Flow Rate FiO2 07/19/16 18:53 36.7 65 20 94 Nasal Cannula 07/19/16 16:01 36.7 65 20 115/65 (82) 94 Nasal Cannula 4.0 07/19/16 16:00 95 Nasal Cannula 3.5 07/19/16 11:29 152/86 (108) 07/19/16 08:00 Nasal Cannula 3.5 07/19/16 07:11 36.6 87 18 119/61 (80) 95 Nasal Cannula 4.0 07/19/16 00:00 BiPAP 4.0 07/18/16 23:10 36.6 62 18 120/66 (84) 95 CPAP 4.0 07/18/16 21:47 67 96 4.0 07/18/16 20:00 Nasal Cannula 3.5 Lab Results: Results Past 24 Hours Test 07/19/16 07:25 07/19/16 07:44 07/19/16 11:22 07/19/16 16:16 Range/Units White Blood Count 8.03 4.8-10.8 K/uL Red Blood Count 4.89 4.2-5.4 M/uL Hemoglobin 12.0 12.0-16.0 g/dL Hematocrit 40.0 37-47 % Mean Corpuscular Volume 81.8 80-100 fL Mean Corpuscular Hemoglobin 24.5 25-34 pg Mean Corpuscular Hemoglobin Concent 30.0 32-36 g/dl RDW Standard Deviation 49.4 36.4-46.3 fL RDW Coefficient of Variation 16.5 11.5-14.5 % Platelet Count 137 130-400 K/uL Mean Platelet Volume 11.4 7.4-10.4 fL Creatinine 0.60 0.60-1.20 mg/dl Est Creatinine Clear Calc Drug Dose 141.8 ml/min Estimated GFR () 110.1 Estimated GFR (Non- 95.0 Bedside Glucose 156 154 154 70-90 mg/dl
--- NOTE | 2016-07-19 20:09 | Discharge Summary ---
Discharge Summary Date of Service Jul 19, 2016. Discharge Summary Admission Date: Jul 16, 2016 at 17:33 Discharge Date: Jul 19, 2016 Discharge Disposition: Home with services Principal Diagnosis: RECURRENT UTI Secondary Diagnoses/Problems: (1) Acute Pancreatitis Status: Resolved (2) Anxiety Status: Chronic (3) Asthma Status: Chronic (4) Body Mass Index 50.0-59.9, Adult Status: Chronic (5) Cerebrovascular disease Permanent Comment: history left thalamic stroke Status: Chronic (6) Chronic hypercapnic respiratory failure Status: Chronic (7) Chronic osteoarthritis Status: Chronic (8) Chronic pain disorder Status: Chronic (9) Crohn's disease Status: Chronic (10) Depression Status: Chronic (11) Diabetes mellitus, type II Status: Chronic (12) Diabetic neuropathy Status: Chronic (13) Diastolic heart failure Status: Chronic (14) Dyslipidemia Status: Chronic (15) Gastroparesis Status: Chronic (16) Hypertension Status: Chronic (17) Hypertrophic cardiomyopathy Status: Chronic (18) Hypothyroidism Status: Chronic (19) Necrotizing Fasciitis Status: Resolved (20) Obesity hypoventilation syndrome Status: Chronic (21) Pneumonia, organism unspecified Status: Resolved (22) Sleep apnea Status: Chronic (23) Urin Tract Infection Nos Status: Resolved Consultations: ID Medication Reconciliation Continued Medications: Albuterol Hfa (Ventolin Hfa) 200 Puffs/52943 Mcg Aers 2 PUFFS INH QID PRN for SOB/Wheezing INHALE 2 PUFFS 1 MINUTE APART 4 TIMES DAILY IF NEEDED Albuterol Sulf (Proventil 0.083% 2.5MG/3ML) 2.5 Mg/3 Ml Nebu 1 VIAL NEB Q6H PRN for SOB/Wheezing USE IN PLACE OF RESCUE INHALER Aspirin (Aspirin Ec) 81 Mg Tab 81 MG PO DAILY Atenolol (Atenolol) 25 Mg Tab 25 MG PO DAILY Baclofen (Baclofen) 20 Mg Tab 20 MG PO TID Celecoxib (Celecoxib) 200 Mg Cap 200 MG PO DAILY Duloxetine HCl (Duloxetine HCl) 30 Mg Cap 30 MG PO BID Furosemide (Furosemide) 40 Mg Tab 40 MG PO QAM Hydroxyzine HCl (Hydroxyzine HCl) 25 Mg Tab 25 MG PO Q6H PRN for Itching Insulin Human NPH (Novolin N) 100 Units/Ml Susp 70 UNITS SC TIDM Lactulose (Chronulac) 10 Gm/15 Ml Syrp 15 ML PO DAILY PRN for Severe Constipation Levothyroxine Sodium (Levothyroxine Sodium) 100 Mcg Tab 100 MCG PO QAM Lorazepam (Ativan) 2 Mg Tab 1-2 MG PO BID PRN for Anxiety Lorazepam (Lorazepam) 2 Mg Tab 2 MG PO HS Metformin HCl (Metformin HCl ER) 500 Mg Tabcr 500 MG PO BID Miconazole Nitrate (Desenex Shake Powder) 43 Appln/43 Gm Powd 1 APPLN TOP BID PRN for Affected Skin Folds Montelukast Sod (Montelukast Sodium) 10 Mg Tab 10 MG PO HS Nystatin (Nystatin Cream) 90 Appln/30 Gm Cr 1 APPLN TOP BID PRN for Affected Skin Folds, GM APPLY TO AFFECTED AREA(S) DIRECTED Ondansetron Hcl (Zofran) 4 Mg Tab 4 MG PO Q6H PRN for Nausea, TAB Oxygen (Oxygen) Gas 4 LITERS NA DAYTIME USES BIPAP WITH 4 L/MIN HS Pantoprazole (Pantoprazole Sodium) 40 Mg Tab 40 MG PO QAM TAKE THIS MEDICATION ONCE A DAY 30 MINUTES BEFORE FIRST MEAL OF THE DAY. Polyethylene Glycol 3350 (Miralax) 1 Pow Pow 17 GM PO BID PRN for Constipation, GM Potassium Chloride Microencaps (Potassium Chloride Er) 20 Meq Tab 20 MEQ PO BID, #60 Pregabalin (Lyrica) 200 Mg Cap 200 MG PO TID, CAP Probiotic Product (Probiotic) 1 Cap Cap 1 CAP PO HS Silver Sulfadiazine (Silvadene) 1 % Cre 1 APPLN TOP DAILY PRN for SKIN TEAR OR ABRASION, GM Simvastatin (Simvastatin) 20 Mg Tab 20 MG PO HS Sumatriptan Succinate (Imitrex) 100 Mg Tab 100 MG PO UD PRN for Migraine TAKE ONE TABLET AT ONSET OF MIGRAINE, MAY REPEAT AFTER 2 HOURS IF NEEDED. TAKE NO MORE THAN 2 TABLETS IN 24 HOURS. Tiotropium [place] (Spiriva Handihaler) 30 Puff/540 Mcg Aerp 1 PUFF INH QAM Triamcinolone Acet (Triamcinolone Acetonide) 45 Appln/15 Gm Cr 1 APPLN TOP BID PRN for Redness and Itching, GM Ursodiol (Ursodiol) 300 Mg Cap 600 MG PO BID TAKE THIS MEDICATION AFTER BREAKFAST AND AFTER EVENING MEAL. Admission Information HPI (per Admitting provider): 65 yo post-menopausal F with recurrent UTI for two years. She recently was symptomatic and grew vanc-sensitive enterococcus in a urine culture on 06/30. Based on her extensive allergy profile, she cannot take vancomycin. She is also on an SSRI, and therefore, Linezolid is not a good choice either. Ther was some talk of getting her a different abx that would require prior approval, but since no one contacted her from the ID office this week and her symptoms were persisting, she contacted them. They advised her to come in and per the ER physician she should start Daptomycin. She states that she has dysuria but denies flank pain, fevers or chills. She has had some nausea for two weeks since the symptoms began but denies vomiting or having diarrhea and is eating well at home. She denies any increased weakness from her baseline right sided weakness from her prior stroke. She has no other symptoms at this time. Physical Exam (per Admitting): GEN: morbid obesity, in no acute distress, alert and appropriate HEENT: NC/AT, pupils are equal and round, normal sclerae/conjunctivae, MMM CARDIO: reg rate, S1/2 heard without m/g/r LUNGS: CTA bilaterally, no crackles, rales or wheezes, good diaphragmatic excursion ABD: soft, slight suprapubic tenderness, non-distended, no rebound or guarding, +BS, multiple skin folds so exam is very limited. No CVA tenderness; again skin folds get in the way somewhat. EXTREMITY: RP and DP palpable 2+ bilat, no LE swelling or edema NEURO: CN 2-12 grossly intact, no gross focal deficits, mentating well. MUSC: moves all extremities equally SKIN: warm and dry Hospital Course Enterococcus UTI symptoms ongoing for the past two weeks on daptomycin ID consulted and recommended 10days of iv daptomycin as patient has multiple allergies s/p picc line discharged home today Nausea likely 2/2 illness above. Not interfering with PO intake Symptomatic management improved 3DMII-multiple insulin allergies and can only take Novolin -N which was ordered at same dose as last admission. Pharmacy consulted for assistance. Most recent A1C is 6.2. f/u with pcp Hypothyroidism-cont Synthroid Chronic respiratory failure-cont 4L NC, at baseline May Has Obesity Hypoventilation syndrome Chronic pain-cont Cymbalta (unwilling to come off this) Morbid obesity DISCHARGED HOME WITH HOME HEALTH Total time spent on discharge = 35MINUTES This includes examination of the patient, discharge planning, medication reconciliation, and communication with other providers. Discharge Instructions Discharge Instructions Date of Service Jul 19, 2016. Admission Reason for Admission: Recurrent Uti Discharge Discharge Diagnosis / Problem: RECURRENT UTI Discharge Goals Goal(s): Decrease discomfort Activity Recommendations Activity Limitations: resume your previous activity . Instructions / Follow-Up Instructions / Follow-Up FOLLOWUP WITH FAMILY DOCTOR ON July AT 2:20PM Current Hospital Diet Patient's current hospital diet: Diabetes Type 2 Diet Discharge Diet Recommended Diet: AHA Diet (Heart Healthy), Diabetes Type 2 Diet Pending Studies Studies pending at discharge: no Laboratory Results Hemoglobin A1c Test 06/20/16 15:46 Range/Units Estimated Average Glucose 131 mg/dl Hemoglobin A1c 6.2 H 4.5-5.6 % Medical Emergencies . Who to Call and When: Medical Emergencies: If at any time you feel your situation is an emergency, please call 911 immediately. . Non-Emergent Contact Non-Emergency issues call your: Primary Care Provider . . "Provider Documentation" section prepared by Ye Acosta. . VTE Core Measure Inpt VTE Proph given/why not?: Enoxaparin (Lovenox)SQ
[2016-11-23] MEDS ORDERED: CELE1CAP30 PO (12:20)
[2016-11-23] MEDS ORDERED: TRMCR515 TOP (12:20)
== END 2016-07-19 19:44 | disposition home health service (06) | DRG 690 ==
LOC: EDBD 16:15 → C.EDB 16:16 → C.MS4W 17:33 → ENRESERV 18:11
PROVIDERS: ADMIT Hospitalist; ATTEND Internal Medicine
DX: N39.0 Urinary tract infection, site not specified (principal); J96.12 Chronic respiratory failure with hypercapnia; E66.2 Morbid (severe) obesity with alveolar hypoventilation; Z68.43 Body mass index [BMI] 50.0-59.9, adult; K50.90 Crohn's disease, unspecified, without complications; I50.30 Unspecified diastolic (congestive) heart failure; B95.2 Enterococcus as the cause of diseases classified elsewhere; E03.9 Hypothyroidism, unspecified; G89.29 Other chronic pain; F41.9 Anxiety disorder, unspecified; Z86.73 Personal history of transient ischemic attack (TIA), and cerebral infarction without residual deficits; F32.9 Major depressive disorder, single episode, unspecified; E11.69 Type 2 diabetes mellitus with other specified complication; E08.9 Diabetes mellitus due to underlying condition without complications; I11.0 Hypertensive heart disease with heart failure; Z82.5 Family history of asthma and other chronic lower respiratory diseases; Z82.0 Family history of epilepsy and other diseases of the nervous system; Z83.3 Family history of diabetes mellitus; Z82.49 Family history of ischemic heart disease and other diseases of the circulatory system; Z79.82 Long term (current) use of aspirin; Z79.4 Long term (current) use of insulin; Z99.81 Dependence on supplemental oxygen; E78.5 Hyperlipidemia, unspecified

== ENCOUNTER → 2016-07-22 | Outpatient (CLI) | payer OTHER ==
[~2016-07-22] MED LIST changes: -MCRK20 PO; -PANT40TA2 PO; +POTA20TA13 PO; +PRT/40 PO
[2016-07-22 13:59] LABS: HEMATOCRIT 42.4 % (37-47); MEAN CELL VOLUME 79.8 fL (80-100); MEAN CORPUSCULAR HEMOGLOBIN 23.9 pg (25-34); MEAN PLATELET VOLUME 11.4 fL (7.4-10.4); PLATELET COUNT 156 K/uL (130-400); RED BLOOD COUNT 5.31 M/uL (4.2-5.4)
[2016-07-22 15:43] LABS: ALB/GLOB RATIO 0.9 (0.9-2); ALKALINE PHOSPHATASE 74 U/L (45-117); ALT/SGPT 32 U/L (12-78); AST/SGOT 28 U/L (15-37); BLOOD UREA NITROGEN 10 mg/dl (7-18); BUN/CREATININE RATIO 16.4 (10-20); CALCIUM 8.3 mg/dl (8.5-10.1); CARBON DIOXIDE 27 mmol/L (21-32); CHLORIDE 102 mmol/L (98-107); CREATININE 0.59 mg/dl (0.60-1.20); GLUCOSE 147 mg/dl (70-99); POTASSIUM 3.8 mmol/L (3.5-5.1); SODIUM 141 mmol/L (136-145)
--- NOTE | 2016-08-03 09:08 | CODING QUERY NO DIAGNOSIS ---
Valid Physician Order Needed A valid physician order must be submitted in order to properly bill for the service(s) provided, including date of service(s), valid diagnosis, and physician signature. If these tests are done on a recurring basis the original physican order must be submitted in order to code and bill for the service(s) provided. Please fax us the original, signed physician order so that we may expedite billing to [phone] DOS 07/22/16 * CMP * CREATINE PHOSPHOKINASE * ERYTHROCYTE SEDIMENTATION RATE * CBC W/O DIFF Thank you Johanna [facility] Information Management
== END | disposition home or self-care (01) ==
LOC: C.LABSPEC 13:36
PROVIDERS: ATTEND Internal Medicine Infectious Disease
DX: N39.0 Urinary tract infection, site not specified (principal); B96.21 Shiga toxin-producing Escherichia coli [E. coli] [STEC] O157 as the cause of diseases classified elsewhere

== ENCOUNTER 2016-11-19 08:00 | Inpatient (IN) | payer OTHER ==
[2016-11-19] VITALS (11 sets, daily range): BP systolic 109–167; BP diastolic 51–68; PULSE 68–91; TEMP 36.7–36.9; O2SAT 91–98; Ht 172.7 cm; Wt 158.9 kg
[~2016-11-19] VITALS: Ht 172.7 cm; Wt 158.9 kg
[~2016-11-19 08:00] MED LIST changes: -POTA20TA13 PO
[2016-11-19] MEDS ORDERED: ERTAPENEM 1 GM ADDVIAL IV ONE (08:30)
[2016-11-19] MEDS ORDERED: SODIUM CHLORIDE 0.9% 1000ML 1,000 ML IV STA (08:32)
--- NOTE | 2016-11-19 08:41 | DIAGNOSTIC IMAGING REPORT ---
CHEST ONE VIEW PORTABLE HISTORY: 65 years-old Female fever acute fever with illness. COMPARISON: Chest radiograph 06/24/2016 TECHNIQUE: Portable upright AP view of the chest FINDINGS: Cardiac silhouette is mildly enlarged, unchanged. There is atherosclerosis of the aorta. No pneumothorax identified. Suspected small left pleural effusion persists with hazy left basilar opacity. There is mild pulmonary vascular congestion without overt pulmonary edema. The bones are grossly intact. IMPRESSION: 1. Cardiomegaly and pulmonary vascular congestion without overt pulmonary edema. 2. Small left pleural effusion with subsegmental left basilar opacities suggesting atelectasis or pneumonia. The above report was generated using voice recognition software. It may contain grammatical, syntax or spelling errors. Electronically signed by: Oscar Turpin M.D. 11/19/2016 8:40 AM Dictated Date/Time: 11/19/2016 8:38 AM
[2016-11-19 08:51] LABS: ISTAT CREATININE 0.6 mg/dl (0.6-1.3); ISTAT HEMOGLOBIN 13.6 g/dl (12.0-16.0); ISTAT IONIZED CALCIUM 1.14 mmol/l (1.12-1.32)
[2016-11-19 09:10] LABS: VEN BLD GAS O2 SATURATION 89.5 %; VEN BLOOD GAS BASE EXCESS 7.4 mEq/L
--- NOTE | 2016-11-19 09:12 | DIAGNOSTIC IMAGING REPORT ---
HEAD WITHOUT CONTRAST (CT) CLINICAL HISTORY: 65 years-old Female with ams . Acute altered mental status with weakness and confusion TECHNIQUE: Multiple axial CT images of the head were obtained without contrast. A dose lowering technique was utilized adhering to the principles of ALARA. CT DOSE: 1043.68 mGy.cm COMPARISON: Head CT 05/23/2015. FINDINGS: Study is limited secondary to motion artifact. Repeat study through the posterior fossa was then obtained which is also moderately limited secondary to motion artifact. Within the limitations of the study, no acute intracranial hemorrhage, midline shift, mass, large territorial ischemia or abnormal extra-axial collection. The calvarium is intact. The paranasal sinuses, mastoid air cells, and middle ear cavities are clear. IMPRESSION: Limited study secondary to patient motion. Within the limitations of the study, there is no acute intracranial abnormality identified. The above report was generated using voice recognition software. It may contain grammatical, syntax or spelling errors. Electronically signed by: Oscar Turpin M.D. 11/19/2016 9:11 AM Dictated Date/Time: 11/19/2016 9:07 AM
[2016-11-19] MEDS ORDERED: CEFTRIAXONE SOD INJ 1 GM ADDVIAL IV STA (09:18)
[2016-11-19 09:23] LABS: PROTHROMBIN TIME (PATIENT) 10.6 SECONDS (9.0-12.0)
[2016-11-19 09:36] LABS: ALT/SGPT 19 U/L (12-78); BLOOD UREA NITROGEN 11 mg/dl (7-18); BUN/CREATININE RATIO 20.4 (10-20); CALCIUM 8.7 mg/dl (8.5-10.1); CARBON DIOXIDE 38 mmol/L (21-32); CHLORIDE 102 mmol/L (98-107); CREATININE 0.54 mg/dl (0.60-1.20); GLUCOSE 159 mg/dl (70-99); MAGNESIUM 2.1 mg/dl (1.8-2.4); POTASSIUM 4.1 mmol/L (3.5-5.1); SODIUM 143 mmol/L (136-145)
[2016-11-19 09:42] LABS: ALKALINE PHOSPHATASE 84 U/L (45-117); AST/SGOT 15 U/L (15-37)
[2016-11-19 10:07] LABS: BASO % 0.3 %; BASO ABS # 0.03 K/uL (0-0.2); COMPLETE YES; EOS % 2.4 %; HEMATOCRIT 41.3 % (37-47); IG% 1.4 %; LYMPH ABS # 1.65 K/uL (1.2-3.4); MEAN CELL VOLUME 82.1 fL (80-100); MEAN CORPUSCULAR HEMOGLOBIN 23.5 pg (25-34); MEAN CORPUSCULAR HGB CONC 28.6 g/dl (32-36); MEAN PLATELET VOLUME 11.5 fL (7.4-10.4); MONO % 7.7 %; NEUT % 71.2 %; PLATELET COUNT 150 K/uL (130-400); RED BLOOD COUNT 5.03 M/uL (4.2-5.4); WHITE BLOOD COUNT 9.69 K/uL (4.8-10.8)
[2016-11-19 11:04] LABS: URINE APPEARANCE CLEAR (CLEAR); URINE BILIRUBIN NEG (NEG); URINE COLOR YELLOW; URINE EPITHELIAL CELL AUTO 0-5 /lpf (0-5); URINE NITRITE NEG (NEG); UROBILINOGEN NEG (NEG); ZZURINE CULT IF INDIC CATH NO
[2016-11-19 11:13] LABS: MANUAL MICROSCOPIC REQUIRED? NO; REVIEW REQ? NO
[2016-11-19] MEDS ORDERED: GLUCOSE 10 TABS/TUBE PO PRN (13:00)
[2016-11-19] MEDS ORDERED: DEXTROSE 50% 50 ML SYR IV PRN (13:00)
[2016-11-19] MEDS ORDERED: LEVALBUTEROL/IPRATROPIUM NEB INH SCH (13:00)
[2016-11-19] MEDS ORDERED: GLUCAGON FOR INJ 1 MG VIAL SQ PRN (13:00)
[2016-11-19] MEDS ORDERED: GLUCOSE 40% GEL 15 GM TUBE PO PRN (13:00)
[2016-11-19] MEDS ORDERED: PHARMACY GLYCEMIC MGMT CONSULT PRN (13:14)
[2016-11-19] MEDS ORDERED: MICONAZOLE NITRATE POWDER 43 GM EXT PRN (13:15)
[2016-11-19] MEDS ORDERED: NYSTATIN CR 15 GM TUBE EXT PRN (13:15)
[2016-11-19] MEDS ORDERED: CeleBREX 200 MG CAP PO PRN (13:15)
--- NOTE | 2016-11-19 13:39 | EMERGENCY ROOM VISIT NOTE ---
History Report prepared by Michelle: Juliann Singh Under the Supervision of: Dimitrios GutierrezO. 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 Per EMS, and home health nurse found the patient to be more confused okay. En route to the hospital, the patient told EMS that she feels "foggy" like she is getting sick. She reports a headache but is not sure when it started. The patient is chronically on 4L of NC/O2. She denies rhinorrhea, cough, abdominal pain, nausea , vomiting, and diarrhea. She is unsure when her last bowel movement was. The HPI is limited secondary to the patient's AMS. states that the patient has been complaining of dysuria and urinary incontinence for the past 3 days. She has gradually become more confused. 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 Past Medical & Surgical Medical Problems: (1) Acute Pancreatitis (2) Altered mental status (3) Anxiety (4) Asthma (5) Body Mass Index 50.0-59.9, Adult (6) Cerebrovascular disease (7) Chronic hypercapnic respiratory failure (8) Chronic osteoarthritis (9) Chronic pain disorder (10) Crohn's disease (11) Depression (12) Diabetes mellitus, type II (13) Diabetic neuropathy (14) Diastolic heart failure (15) Dyslipidemia (16) Gastroparesis (17) Hypercapnic respiratory failure (18) Hypertension (19) Hypertrophic cardiomyopathy (20) Hypothyroidism (21) Necrotizing Fasciitis (22) Obesity hypoventilation syndrome (23) Pneumonia, organism unspecified (24) Recurrent UTI (25) Sleep apnea (26) Urin Tract Infection Nos Surgical Problems: (1) Status post partial nephrectomy (2) Status post repair nasal septum (3) Status post tonsillectomy Family History FH: asthma SISTER FH: dementia MOTHER FH: diabetes mellitus MOTHER GRANDMOTHER FH: heart disease FATHER GRANDMOTHER FH: hypertension MOTHER Social History Smoking Status: Never Smoker Alcohol Use: none Drug Use: none Marital Status: Housing Status: lives with family Occupation Status: disabled Current/Historical Medications Scheduled Aspirin (Aspirin Ec), 81 MG PO DAILY Atenolol (Atenolol), 25 MG PO DAILY Baclofen (Baclofen), 20 MG PO TID Celecoxib (Celecoxib), 200 MG PO DAILY Duloxetine HCl (Duloxetine HCl), 30 MG PO BID Furosemide (Furosemide), 40 MG PO prn Home O2 Therapy (Oxygen), 3 LITERS NA DAYTIME Insulin Human NPH (Novolin N), 90 UNITS SC TIDM Levothyroxine Sodium (Levothyroxine Sodium), 100 MCG PO QAM Lorazepam (Lorazepam), 2 MG PO HS Metformin HCl (Metformin HCl ER), 500 MG PO BID Montelukast Sod (Montelukast Sodium), 10 MG PO HS Pantoprazole (Pantoprazole Sodium), 40 MG PO QAM Pregabalin (Lyrica), 200 MG PO TID Probiotic Product (Probiotic), 1 CAP PO HS Simvastatin (Simvastatin), 20 MG PO HS Tiotropium [place] (Spiriva Handihaler), 1 PUFF INH QAM Ursodiol (Ursodiol), 600 MG PO BID Scheduled PRN Albuterol Hfa (Ventolin Hfa), 2 PUFFS INH QID PRN for SOB/Wheezing Albuterol Sulf (Proventil 0.083% 2.5MG/3ML), 1 VIAL NEB Q6H PRN for SOB/Wheezing Hydroxyzine HCl (Hydroxyzine HCl), 25 MG PO Q6H PRN for Itching Lactulose (Chronulac), 15 ML PO DAILY PRN for Severe Constipation Lorazepam (Ativan), 1-2 MG PO BID PRN for Anxiety Miconazole Nitrate (Desenex Shake Powder), 1 APPLN TOP BID PRN for Affected Skin Folds Nystatin (Nystatin Cream), 1 APPLN TOP BID PRN for Affected Skin Folds Ondansetron Hcl (Zofran), 4 MG PO Q6H PRN for Nausea Polyethylene Glycol 3350 (Miralax), 17 GM PO BID PRN for Constipation Silver Sulfadiazine (Silvadene), 1 APPLN TOP DAILY PRN for SKIN TEAR OR ABRASION Sumatriptan Succinate (Imitrex), 100 MG PO UD PRN for Migraine Triamcinolone Acet (Triamcinolone Acetonide), 1 APPLN TOP BID PRN for Redness and Itching Allergies Coded Allergies: Fluoxetine (Verified Allergy, Severe, ANAPHYLAXIS, 11/19/16) Insulin (Verified Allergy, Severe, LANTUS/LEVEMIR- HIVES/THROAT SWELLING, 11/19/16) TOLERATES NOVOLIN N 11/19/15 aj (per pt phone call) Note: after patient had severe hives reaction from Lantus (many years ago), she had skin testing @ [facility] and was tested with many other insulins. Pt says she only tolerated NOVOLIN NPH. PT HAS TOLERATED NOVOLOG ON PREVIOUS ADMISSIONS. Has tolerated Aspart during multiple admissions (12/2013, 05/2015, 07/2015) Moxifloxacin (Verified Allergy, Severe, HIVES, 11/19/16) Nitrofurantoin (Verified Allergy, Severe, HIVES, 11/19/16) Paroxetine (Verified Allergy, Severe, HIVES, 11/19/16) Quinolones (Verified Allergy, Severe, AVELOX & LEVAQUIN-HIVES, 11/19/16) Amitriptyline (Verified Allergy, Intermediate, Sweats and itching, 11/19/16 ) Buspirone (Verified Allergy, Intermediate, HIVES, 11/19/16) Citalopram (Verified Allergy, Intermediate, HIVES-RASH, 11/19/16) Escitalopram (Verified Allergy, Intermediate, HIVES-RASH, 11/19/16) Methadone (Verified Allergy, Intermediate, HIVES, 11/19/16) Penicillins (Verified Allergy, Intermediate, RASH,HIVES, 11/19/16) Serotonin Reuptake Inhibitors (Verified Allergy, Intermediate, MIGRAINES TO SSRIs, 11/19/16) Trazodone (Verified Allergy, Intermediate, BLOODY NOSE, HEADACHES,HIVES, 11/19/16) Vancomycin (Verified Allergy, Intermediate, HIVES, 11/19/16) Prednisone (Verified Allergy, Mild, CHEST TIGHTNESS, 11/19/16) Azithromycin (Verified Allergy, Unknown, HIVES, 11/19/16) Carbamazepine (Verified Allergy, Unknown, [id number], 11/19/16) Cefepime (Verified Allergy, Unknown, face & arm redness/itching after 2nd or 3rd dose cefepime, 11/19/16) Ceftriaxone (Verified Allergy, Unknown, Received in [facility] (but needed benadryl for course of therapy, 11/19/16) this was during 01/2016 [facility] admission for Rocephin Ciprofloxacin (Unverified Allergy, Unknown, ABD PAINS, 11/19/16) Sertraline (Verified Allergy, Unknown, UNKNOWN, 11/19/16) Sitagliptin (Verified Allergy, Unknown, HIVES, 11/19/16) Tetracyclines (Verified Adverse Reaction, Severe, HIVES, 11/19/16) Sulfa Antibiotics (Verified Adverse Reaction, Intermediate, MIGRAINES, 11/19/16) Fexofenadine (Verified Adverse Reaction, Mild, GI SYMPTOMS, 11/19/16) Tizanidine (Verified Adverse Reaction, Mild, ITCHING-HIVES, 11/19/16) Physical Exam Vital Signs Date Time Temp Pulse Resp B/P (MAP) Pulse Ox O2 Delivery O2 Flow Rate FiO2 11/19/16 11:01 155/62 11/19/16 11:00 84 24 95 11/19/16 10:31 152/67 11/19/16 10:30 88 20 96 11/19/16 10:28 81 97 40 11/19/16 10:03 91 Nasal Cannula 4.0 11/19/16 10:01 147/122 11/19/16 10:00 93 24 91 11/19/16 09:31 169/71 11/19/16 09:30 89 20 93 11/19/16 09:16 167/60 11/19/16 09:14 166/72 11/19/16 08:35 90 11/19/16 08:30 92 23 92 11/19/16 08:24 36.8 92 20 161/65 91 Nasal Cannula 4.0 11/19/16 08:12 161/65 Physical Exam GENERAL: alert, obese, ill appearing, sitting up in bed, confused, non-toxic, on NC/O2. EYE EXAM: normal conjunctiva OROPHARYNX: no exudate, no erythema, lips, buccal mucosa, and tongue normal and mucous membranes are moist NECK: supple, no nuchal rigidity, no adenopathy, non-tender LUNGS: Distant. Clear to auscultation. Normal chest wall mechanics HEART: Distant. no murmurs, S1 normal and S2 normal ABDOMEN: Morbidly obese, abdomen soft, non-tender, normo-active bowel sounds, no masses, no rebound or guarding. Old lower abdominal scar present. BACK: Back is symmetrical on inspection and there is no deformity, no midline tenderness, no CVA tenderness. SKIN: no rashes and no bruising UPPER EXTREMITIES: upper extremities are grossly normal. LOWER EXTREMITIES: No pitting edema. NEURO EXAM: Oriented to person but not place or date. Cranial nerves II-XII intact, no weakness of upper or lower extremities. Medical Decision & Procedures ER Provider Diagnostic Interpretation: Radiology results as stated below per my review and the radiologist's interpretation: HEAD WITHOUT CONTRAST (CT) CLINICAL HISTORY: 65 years-old Female with ams . Acute altered mental status with weakness and confusion TECHNIQUE: Multiple axial CT images of the head were obtained without contrast. A dose lowering technique was utilized adhering to the principles of ALARA. CT DOSE: 1043.68 mGy.cm COMPARISON: Head CT 05/23/2015. FINDINGS: Study is limited secondary to motion artifact. Repeat study through the posterior fossa was then obtained which is also moderately limited secondary to motion artifact. Within the limitations of the study, no acute intracranial hemorrhage, midline shift, mass, large territorial ischemia or abnormal extra-axial collection. The calvarium is intact. The paranasal sinuses, mastoid air cells, and middle ear cavities are clear. IMPRESSION: Limited study secondary to patient motion. Within the limitations of the study, there is no acute intracranial abnormality identified. The above report was generated using voice recognition software. It may contain grammatical, syntax or spelling errors. Electronically signed by: Oscar Turpin M.D. 11/19/2016 9:11 AM Dictated Date/Time: 11/19/2016 9:07 AM CHEST ONE VIEW PORTABLE HISTORY: 65 years-old Female fever acute fever with illness. COMPARISON: Chest radiograph 06/24/2016 TECHNIQUE: Portable upright AP view of the chest FINDINGS: Cardiac silhouette is mildly enlarged, unchanged. There is atherosclerosis of the aorta. No pneumothorax identified. Suspected small left pleural effusion persists with hazy left basilar opacity. There is mild pulmonary vascular congestion without overt pulmonary edema. The bones are grossly intact. IMPRESSION: 1. Cardiomegaly and pulmonary vascular congestion without overt pulmonary edema. 2. Small left pleural effusion with subsegmental left basilar opacities suggesting atelectasis or pneumonia. The above report was generated using voice recognition software. It may contain grammatical, syntax or spelling errors. Electronically signed by: Oscar Turpin M.D. 11/19/2016 8:40 AM Dictated Date/Time: 11/19/2016 8:38 AM Laboratory Results 11/19/16 08:43 Red Blood Count 5.03, Mean Corpuscular Volume 82.1, Mean Corpuscular Hemoglobin 23.5, Mean Corpuscular Hemoglobin Concent 28.6, Mean Platelet Volume 11.5, Neutrophils (%) (Auto) 71.2, Lymphocytes (%) (Auto) 17.0, Monocytes (%) (Auto) 7.7, Eosinophils (%) (Auto) 2.4, Basophils (%) (Auto) 0.3, Neutrophils # (Auto) 6.89, Lymphocytes # (Auto) 1.65, Monocytes # (Auto) 0.75, Eosinophils # (Auto) 0.23, Basophils # (Auto) 0.03 11/19/16 08:43 Test 11/19/16 08:20 11/19/16 08:37 11/19/16 08:41 11/19/16 08:43 Urine Color YELLOW Urine Appearance CLEAR (CLEAR) Urine pH 5.0 (4.5-7.5) Urine Specific [place] 1.020 (1.000-1.030) Urine Protein TRACE (NEG) Urine Glucose (UA) NEG (NEG) Urine Ketones NEG (NEG) Urine Occult Blood 3+ (NEG) Urine Nitrite NEG (NEG) Urine Bilirubin NEG (NEG) Urine Urobilinogen NEG (NEG) Urine Leukocyte Esterase NEG (NEG) Urine WBC (Auto) 1-5 /hpf (0-5) Urine RBC (Auto) >30 /hpf (0-4) Urine Hyaline Casts (Auto) 0 /lpf (0-5) Urine Epithelial Cells (Auto) 0-5 /lpf (0-5) Urine Bacteria (Auto) NEG (NEG) Bedside Lactic Acid Venous 1.15 mmol/L (0.90-1.70) Bedside Hemoglobin 13.6 g/dl (12.0-16.0) Bedside Hematocrit 40 % (37-47) Bedside Sodium 141 mEq/L (135-144) Bedside Potassium 4.5 mEq/L (3.3-5.0) Bedside Chloride 98 mEq/L (101-112) Bedside Total CO2 38 mEq/l (24-31) Bedside Blood Urea Nitrogen 15 mg/dl (7-18) Bedside Creatinine 0.6 mg/dl (0.6-1.3) Bedside Glucose (other) 166 mg/dl (70-99) Bedside Ionized Calcium (Loretta) 1.14 mmol/l (1.12-1.32) White Blood Count 9.69 K/uL (4.8-10.8) Red Blood Count 5.03 M/uL (4.2-5.4) Hemoglobin 11.8 g/dL (12.0-16.0) Hematocrit 41.3 % (37-47) Mean Corpuscular Volume 82.1 fL (80-100) Mean Corpuscular Hemoglobin 23.5 pg (25-34) Mean Corpuscular Hemoglobin Concent 28.6 g/dl (32-36) Platelet Count 150 K/uL (130-400) Mean Platelet Volume 11.5 fL (7.4-10.4) Neutrophils (%) (Auto) 71.2 % Lymphocytes (%) (Auto) 17.0 % Monocytes (%) (Auto) 7.7 % Eosinophils (%) (Auto) 2.4 % Basophils (%) (Auto) 0.3 % Neutrophils # (Auto) 6.89 K/uL (1.4-6.5) Lymphocytes # (Auto) 1.65 K/uL (1.2-3.4) Monocytes # (Auto) 0.75 K/uL (0.11-0.59) Eosinophils # (Auto) 0.23 K/uL (0-0.5) Basophils # (Auto) 0.03 K/uL (0-0.2) RDW Standard Deviation 51.9 fL (36.4-46.3) RDW Coefficient of Variation 17.4 % (11.5-14.5) Immature Granulocyte % (Auto) 1.4 % Immature Granulocyte # (Auto) 0.14 K/uL (0.00-0.02) Prothrombin Time 10.6 SECONDS (9.0-12.0) Prothromb Time International Ratio 1.0 (0.9-1.1) Anion Gap 3.0 mmol/L (3-11) Est Creatinine Clear Calc Drug Dose 168.4 ml/min Estimated GFR () 114.0 Estimated GFR (Non- 98.3 BUN/Creatinine Ratio 20.4 (10-20) Calcium Level 8.7 mg/dl (8.5-10.1) Magnesium Level 2.1 mg/dl (1.8-2.4) Total Bilirubin 0.3 mg/dl (0.2-1) Direct Bilirubin 0.1 mg/dl (0-0.2) Aspartate Amino Transf (AST/SGOT) 15 U/L (15-37) Alanine Aminotransferase (ALT/SGPT) 19 U/L (12-78) Alkaline Phosphatase 84 U/L (45-117) Total Creatine Kinase 13 U/L (26-192) Creatine Kinase MB < 0.5 ng/ml (0.5-3.6) Creatine Kinase MB Ratio (0-3.0) Troponin I < 0.015 ng/ml (0-0.045) Total Protein 6.9 gm/dl (6.4-8.2) Albumin 3.1 gm/dl (3.4-5.0) Test 11/19/16 08:48 Venous Blood pH 7.21 (7.36-7.41) Venous Blood Partial Pressure CO2 97 mmHg (38.0-50.0) Venous Blood Partial Pressure O2 66 mmHg Venous Blood HCO3 38 mmol/L Venous Blood Oxygen Saturation 89.5 % Venous Blood Base Excess 7.4 mEq/L Laboratory results per my review. Medications Administered Medications (Trade) Dose Ordered Sig/Keith Route Start Time Stop Time Status Last Admin Dose Admin Ertapenem (Invanz Iv) 1 gm ONE ONCE IV 11/19/16 08:30 11/19/16 08:31 DC 11/19/16 09:10 1 GM Sodium Chloride 1,000 ml @ 999 mls/hr Q1H1M STAT IV 11/19/16 08:32 11/19/16 09:32 DC 11/19/16 09:12 999 MLS/HR Ceftriaxone Sodium (Rocephin Inj) 1 gm NOW STAT IV 11/19/16 09:18 11/19/16 09:19 DC 11/19/16 09:54 1 GM ECG Indication: altered mental status Rate (beats per minute): 92 Rhythm: normal sinus Findings: no ectopy (normal axis; ST flattening in septal leads) Comparison ECG Date: 06/20/16 Change: no significant change ED Course ED COURSE: Vital signs were reviewed and showed hypertensive, hypoxic. The patients medical record was reviewed The above diagnostic studies were performed and reviewed. ED treatments and interventions as stated above. 0802: The patient was evaluated in room B11B. A complete history and physical examination was performed. 0830: Invanz 1 gm IV 0832: NSS 1000 ml @ 999 mls/hr IV 0843: The pharmacist reviewed the patient's chart. The patient has received multiple doses of Rocephin in the past without issues. 0911: I reassessed the patient and updated her at the bedside. 0918: Rocephin 1 gm IV 1017: Upon reevaluation, the patient is doing well on BiPAP.I discussed my findings with the patient and she understands and agrees with the treatment plan. Based on the patients age, coexisting illnesses, exam and lab findings the decision to treat as an inpatient was made. The patient remained stable while under my care. The patient will be evaluated for further management. 1104: I reviewed the patient's case with Dr. Medrano. The [facility] will evaluate the patient for further management. Medical Decision Differential diagnoses includes but is not limited to toxic, metabolic, infectious, traumatic, cardiac, neurologic, hematologic, psychiatric and inflammatory etiologies. Patient is a 65-year-old female who presents to ER for altered mental status brought in by ambulance per 's request. She notes she has been having dysuria since this past Tuesday. Patient has no new complaints at this time. She is morbidly obese and ill-appearing. She is confused to place and time. Left showed no significant leukocytosis or anemia. BMP is unremarkable. PH on VBG shows acidosis along with an elevated CO2 of 97. She is placed on BiPAP. Family was updated. She was given IV antibiotics with the chest x-ray showing possible pneumonia. Patient family were at bedside. She is admitted to internal medicine on BiPAP. She was given Rocephin which she has been given multiple times before in the past although listed as an allergy. Medication Reconcilliation Current Medication List: was personally reviewed by me Blood Pressure Screening Patient's blood pressure: Elevated blood pressure Blood pressure disposition: Elevated BP felt to be situational Consults Time Called: 1022 Consulting Physician: Dr. Medrano Returned Call: 1102 I reviewed the patient's case with Dr. Medrano. The [facility] will evaluate the patient for further management. Impression Primary Impression: Hypercapnia Additional Impressions: Respiratory failure Pneumonia Respiratory acidosis Critical Care I have personally spent 35 minutes of critical care time in the direct management of this patient. This includes bedside care, interpretation of diagnostic studies, and testing, discussion with consultants, patient, and family members, and other required patient management activities. This 35 minutes is in excess of all separately billable procedures. Scribe Attestation The scribe's documentation has been prepared under my direction and personally reviewed by me in its entirety. I confirm that the note above accurately reflects all work, treatment, procedures, and medical decision making performed by me. Departure Information Dispostion Being Evaluated By Hospitalist Referrals Bairon Owens M.D. (PCP) Patient Instructions My [facility] Problem Qualifiers Additional Impressions: Respiratory failure Chronicity: acute Respiratory failure complication: unspecified whether with hypoxia or hypercapnia Qualified Codes: J96.00 - Acute respiratory failure, unspecified whether with hypoxia or hypercapnia Pneumonia Pneumonia type: due to unspecified organism Laterality: unspecified laterality Lung location: unspecified part of lung Qualified Codes: J18.9 - Pneumonia, unspecified organism
[2016-11-19] MEDS ORDERED: INFLUENZA ADMINISTRATION CHARGE ONE (14:00)
[2016-11-19] MEDS ORDERED: INFLUENZA VACCINE HIGH DOSE 65+ 0.5 ML SYR IM. ONE (14:00)
[2016-11-19] MEDS ORDERED: INSULIN HUMAN NPH SC SCH (14:00)
[2016-11-19] MEDS: PREGABALIN 100 MG CAP PO SCH ×2 (14:00→21:05)
--- NOTE | 2016-11-19 14:23 | Pharmacy Progress Note ---
Glycemic Control Intl Consult Date of Service Nov 19, 2016. Scope Glycemic Pharmacist consulted by Dr Medrano on 11/19/16 for glycemic control and to write orders per [facility] inpatient glycemic control protocol. Objective Weight (Kilograms): 164.400 Accuchecks BSG (last 24hrs): Test 11/19/16 08:43 Random Glucose 159 mg/dl (70-99) Laboratory Data (last 24hrs) Test 11/19/16 08:41 11/19/16 08:43 Anion Gap 10.0 mmol/L 3.0 mmol/L BUN/Creatinine Ratio 20.4 Blood Urea Nitrogen 11 mg/dl Creatinine 0.54 mg/dl Potassium Level 4.1 mmol/L Sodium Level 143 mmol/L White Blood Count 9.69 K/uL Red Blood Count 5.03 M/uL Hemoglobin 11.8 g/dL Hematocrit 41.3 % Mean Corpuscular Volume 82.1 fL Mean Corpuscular Hemoglobin 23.5 pg Mean Corpuscular Hemoglobin Concent 28.6 g/dl Platelet Count 150 K/uL Mean Platelet Volume 11.5 fL Neutrophils (%) (Auto) 71.2 % Lymphocytes (%) (Auto) 17.0 % Monocytes (%) (Auto) 7.7 % Eosinophils (%) (Auto) 2.4 % Basophils (%) (Auto) 0.3 % Neutrophils # (Auto) 6.89 K/uL Lymphocytes # (Auto) 1.65 K/uL Monocytes # (Auto) 0.75 K/uL Eosinophils # (Auto) 0.23 K/uL Basophils # (Auto) 0.03 K/uL Recent Pertinent Medications Outpatient Anti-diabetic Regimen: * NPH 90 units TID with meals * Metformin ER 500mg PO BID * A1c = 6.2% 06/20/16 -- current A1c pending with tomorrow's labs Risk Factors for Insulin Resistance: * Infection: Ertapenem IV for ?UTI/altered mental status * Diet: NPO Assessment & Plan ASSESSMENT: * Ms Ramon is a 65yo diabetic female, known to the pharmacy glycemic management service from past admissions. * Due to multiple medication allergies (including Levemir and Lantus) patient is on a very unconventional insulin regimen (NPH three times daily). * Patient is NPO for now, so will schedule NPH q8h rather than TIDM. Will adjust when diet is advanced. * A1c ordered with tomorrow's labs to assess recent glycemic control as an outpatient. * NPH dose appears to have been increased since last admission. PLAN FOR INPATIENT GLYCEMIC CONTROL: * Holding outpatient oral diabetes medications for now * Will consider resuming when diet is advanced * Basal insulin with NPH 30 units SQ q8h * Change to TIDM when diet is resumed * This dose is greatly reduced from home dose, based on data from past admissions * Correctional Insulin with NOVOLOG per scale Q4hrs while NPO * Goal Range: Low 120 mg/dL - High 160 mg/dL * Correction Factor: 15 mg/dL/unit * Nutritional / Prandial insulin per carb ratio of 1 unit per 5 grams CHO consumed * Please note that the plan above was derived based on current level of insulin resistance and hospital stress. These recommendations are appropriate for inpatient admission only. Plan of care upon discharge will need to be reassessed to avoid potential outpatient hypo/hyperglycemia. Thank you.
[2016-11-19] MEDS: LEVALBUTEROL 1.25MG/0.5ML NEB INH SCH ×2 (15:26→19:01)
[2016-11-19] MEDS: IPRATROPIUM BROMIDE NEB SOLN 0.02% 2.5 ML VIAL INH SCH ×2 (15:26→19:01)
[2016-11-19] MEDS ORDERED: INSULIN ASPART 100 UNITS/ML 3 ML PEN SC SCH (16:00)
[2016-11-19 16:20] LABS: ARTERIAL BLD GAS O2 SATURATION 90.6 % (90-95); ARTERIAL BLOOD GAS BASE EXCESS 8.6 mEq/L (-9-1.8); ARTERIAL BLOOD GAS HCO3 37 mmol/L (19-24); ARTERIAL BLOOD GAS PO2 62 mm/Hg (80-95); ARTERIAL BLOOD GAS pH 7.32 (7.35-7.45)
[2016-11-19 16:21] LABS: ALLEN TEST POS (POS); O2 ADMINISTRATION 25%
[2016-11-19] MEDS: INSULIN ASPART 100 UNITS/ML 3 ML PEN SC SCH ×2 (17:38→21:39)
[2016-11-19] MEDS: INSULIN HUMAN NPH SC SCH (17:38)
--- NOTE | 2016-11-19 21:01 | PULMONARY CONSULTATION ---
DATE OF CONSULTATION: 11/19/2016 TIME: 2:25 p.m. HISTORY OF PRESENT ILLNESS: The patient was seen in room #204. She is a 65-year-old female who was brought to the Emergency Room today because of confusion and decreased alertness. Reportedly, she had urinary infection a couple of weeks ago. For the past 48 hours she has had increased sleepiness. This is despite the fact she reportedly wears a BiPAP at home. Today, she was confused and feeling foggy. Nursing staff reports that when they asked her who the president was, she stated Rui Dunlap. At the time of this exam, she seems much more awake and alert than she had been. She has been wearing BiPAP for a couple of hours. Reportedly, she has had a headache as well as some dysuria and urinary incontinence for the past few days. She denies shortness of breath. She denies cough or sputum production. The history is somewhat limited due to the patient's mental status. The patient had been hospitalized in June of this year with somewhat similar symptoms. At that time, she had a severely abnormal blood gas with a pCO2 as high as 130. After several days, her blood gas was kept getting better and better and ultimately her pCO2 was down to 44, 4 days after admission. PAST SURGICAL HISTORY: 1. Partial nephrectomy for benign disease. 2. Nasal septal surgery. 3. Tonsillectomy. PAST MEDICAL HISTORY: 1. Pancreatitis. 2. Anxiety. 3. Depression. 4. CVA. 5. DJD. 6. Diabetic neuropathy. 7. Diabetes type 2. 8. Crohn disease. 9. Hypertension. 10. Hyperlipidemia. 11. Hypothyroidism. 12. Frequent urinary infections. 13. Childbirth x2. SOCIAL HISTORY: Tobacco - reportedly never. ETOH - none. ALLERGIES: SHE HAS MANY LISTED ALLERGIES INCLUDING FLUOXETINE, LANTUS, LEVEMIR, QUINOLONES, NITROFURANTOIN, PAROXETINE, AMITRIPTYLINE, BUSPIRONE, CITALOPRAM, ESCITALOPRAM, METHADONE, PENICILLINS, TRAZODONE, VANCOMYCIN AND PREDNISONE, although she can take IV steroids, azithromycin, carbamazepine, cefepime, sertraline, sitagliptin, tetracycline, sulfa, fexofenadine, tizanidine. FAMILY HISTORY: Mother has history of hypertension, diabetes and dementia. As of June of this year, she was still living at age 97. Father had rheumatoid arthritis. MEDICATIONS: At home: 1. Ventolin HFA. 2. Nebulizer with albuterol. 3. Aspirin 81 mg daily. 4. Atenolol 25 mg daily. 5. Baclofen 20 mg t.i.d. 6. Celecoxib 200 mg daily. 7. Duloxetine 30 mg b.i.d. 8. Furosemide 40 mg p.r.n. 9. O2 3 L daytime and 4 liters at bedtime. 10. Hydroxyzine 25 mg p.r.n. 11. Novolin M 90 units t.i.d. 12. Lactulose 15 mL p.r.n. constipation. 13. Levothyroxine 100 mcg daily. 14. Lorazepam 2 mg at bedtime and 1-2 mg b.i.d. p.r.n. 15. Metformin 500 mg b.i.d. 16. Montelukast 10 mg daily. 17. Nystatin cream. 18. Ondansetron 4 mg q. 6 hours p.r.n. 19. Pantoprazole 40 mg daily. 20. MiraLax p.r.n. 21. Lyrica 200 mg t.i.d. 22. Probiotic at bedtime. 23. Silvadene p.r.n. to skin. 24. Simvastatin 20 mg daily. 25. Sumatriptan 100 mg p.r.n. 26. Tiotropium 1 puff daily. 27. Ursodiol 300 mg caps 2 b.i.d. REVIEW OF SYSTEMS: Negative except for the above-mentioned complaints. Questioning was limited; however. PHYSICAL EXAMINATION: GENERAL: The patient is a 65-year-old female who is lethargic but arousable. She seemed fairly oriented at the time of my exam. VITAL SIGNS: Temperature was 36.7. HEENT: Pupils were reactive to light. BiPAP mask was in place and thus I could not examine the nasal passage or oropharynx. NECK: She has a large neck. No lymph nodes are palpable. Her BMI is 55.1. Weight is 164 kilograms. HEART: Rate was 88 per minute. Rhythm was regular. Blood pressure 167/68. CHEST: Lung rojas were clear bilaterally. No wheezes, rales or rhonchi were heard. Oxygen saturation was 92% with a BiPAP in place at 25% FIO2. Her BiPAP pressure is 20/10. ABDOMEN: Obese. It was soft and nontender. Bowel sounds were present. EXTREMITIES: Showed no cyanosis, clubbing or edema. IMAGING DATA: CAT scan of the head was negative. There were limitations of the study due to motion artifact. Chest x-ray showed cardiomegaly with mild pulmonary vascular congestion. One cannot visualize the left hemidiaphragm. This could represent atelectasis, effusion or infiltrate. It could also be technical due to the patient's body habitus. LABORATORY DATA: White count is 9.69. Hemoglobin 11.8. Platelets 150,000. INR was 1. Urinalysis showed greater than 30 rbc's per high power field. Bacteria were negative. Occult blood was 3+. She had a venous blood gas done showing a pH of 7.21 with a pCO2 of 97 and a pO2 of 66. An arterial blood gas is pending. Electrolytes show sodium 143, potassium 4.1, chloride 102, and bicarbonate 38. BUN was 11 with a creatinine of 0.54. Liver functions were normal. Total protein was 6.9. Albumin was 3.1. IMPRESSION: 1. Altered mental status - likely secondary to high carbon dioxide levels. 2. Respiratory failure - acute on chronic. 3. Obesity hypoventilation syndrome. 4. Obstructive sleep apnea. 5. Left basilar opacification, possibly representing atelectasis. COMMENTS AND RECOMMENDATIONS: I would advise continuing the BiPAP for now. She is going to have an ABG later this afternoon. We will see how the patient improves clinically. She has been started on ertapenem. She has a long list of medical allergies which makes it difficult to choose medications. The patient ideally should not be having lorazepam. If it is used, the dose should be lower than what she had been doing before. This may have been contributing to her hypersomnolence. Thank you very much for asking me to assist in her care.
[2016-11-19] MEDS: LACTOBACILLUS ACIDOPHILUS (FLORANEX) TAB PO SCH (21:36)
[2016-11-19] MEDS: URSODIOL 300 MG CAP PO SCH (21:36)
[2016-11-19] MEDS: MONTELUKAST SOD 10 MG TAB PO SCH (21:36)
[2016-11-19] MEDS: DULOXETINE (CYMBALTA) 30 MG CAP PO SCH (21:37)
--- NOTE | 2016-11-19 22:53 | History and Physical ---
History & Physical Date & Time of Service: Nov 19, 2016 at 22:46 Chief Complaint: Tered Mental Status Primary Care Physician: Bairon Owens M.D. History of Present Illness Source: patient, family, clinic records, hospital records 65 year old female with history of Recurrent UTIs, Chronic Respiratory Failure on 4 liters home Oxygen, Obesity Hypoventilation Syndrome, Asthma, DM 2, HTN, Morbid Obesity, Chronic Pain, Depression, presenting with confusion and weakness. Patient was at her usual state of health until 2 days ago when she was noted to be sleeping more. This morning, patient woke up confused and was more drowsy as the day went on. She was then brought to the ED. ABG showed pH 7.21, CO2 902. CXR possible pneumonia Placed on Bipap with gradual improvement. Past Medical/Surgical History Medical Problems: (1) Acute Pancreatitis Status: Resolved (2) Anxiety Status: Chronic (3) Asthma Status: Chronic (4) Body Mass Index 50.0-59.9, Adult Status: Chronic (5) Cerebrovascular disease Permanent Comment: history left thalamic stroke Status: Chronic (6) Chronic hypercapnic respiratory failure Status: Chronic (7) Chronic osteoarthritis Status: Chronic (8) Chronic pain disorder Status: Chronic (9) Crohn's disease Status: Chronic (10) Depression Status: Chronic (11) Diabetes mellitus, type II Status: Chronic (12) Diabetic neuropathy Status: Chronic (13) Diastolic heart failure Status: Chronic (14) Dyslipidemia Status: Chronic (15) Gastroparesis Status: Chronic (16) Hypertension Status: Chronic (17) Hypertrophic cardiomyopathy Status: Chronic (18) Hypothyroidism Status: Chronic (19) Necrotizing Fasciitis Status: Resolved (20) Obesity hypoventilation syndrome Status: Chronic (21) Pneumonia, organism unspecified Status: Resolved (22) Sleep apnea Status: Chronic (23) Urin Tract Infection Nos Status: Resolved Surgical Problems: (1) Status post partial nephrectomy Permanent Comment: left partial nephrectomy, pathology benign Status: Chronic (2) Status post repair nasal septum Status: Chronic (3) Status post tonsillectomy Status: Chronic Family History FH: asthma SISTER FH: dementia MOTHER FH: diabetes mellitus MOTHER GRANDMOTHER FH: heart disease FATHER GRANDMOTHER FH: hypertension MOTHER Social History Smoking Status: Never Smoker Drug Use: none Marital Status: Housing status: lives with significant other, other Occupational Status: disabled Immunizations History of Influenza Vaccine: Yes Influenza Vaccine Date: Oct 16, 2014 History of Tetanus Vaccine?: Unknown Tetanus Immunization Date: Oct 23, 2009 History of Pneumococcal: Yes Pneumococcal Date: Nov 30, 2000 History of Hepatitis B Vaccine: Unknown Multi-Drug Resistant Organisms History of MDRO: Yes Type of MDRO: MRSA Allergies Coded Allergies: Fluoxetine (Verified Allergy, Severe, ANAPHYLAXIS, 11/19/16) Insulin (Verified Allergy, Severe, LANTUS/LEVEMIR- HIVES/THROAT SWELLING, 11/19/16) TOLERATES NOVOLIN N 11/19/15 aj (per pt phone call) Note: after patient had severe hives reaction from Lantus (many years ago), she had skin testing @ [facility] and was tested with many other insulins. Pt says she only tolerated NOVOLIN NPH. PT HAS TOLERATED NOVOLOG ON PREVIOUS ADMISSIONS. Has tolerated Aspart during multiple admissions (12/2013, 05/2015, 07/2015) Moxifloxacin (Verified Allergy, Severe, HIVES, 11/19/16) Nitrofurantoin (Verified Allergy, Severe, HIVES, 11/19/16) Paroxetine (Verified Allergy, Severe, HIVES, 11/19/16) Quinolones (Verified Allergy, Severe, AVELOX & LEVAQUIN-HIVES, 11/19/16) Amitriptyline (Verified Allergy, Intermediate, Sweats and itching, 11/19/16 ) Buspirone (Verified Allergy, Intermediate, HIVES, 11/19/16) Citalopram (Verified Allergy, Intermediate, HIVES-RASH, 11/19/16) Escitalopram (Verified Allergy, Intermediate, HIVES-RASH, 11/19/16) Methadone (Verified Allergy, Intermediate, HIVES, 11/19/16) Penicillins (Verified Allergy, Intermediate, RASH,HIVES, 11/19/16) Serotonin Reuptake Inhibitors (Verified Allergy, Intermediate, MIGRAINES TO SSRIs, 11/19/16) Trazodone (Verified Allergy, Intermediate, BLOODY NOSE, HEADACHES,HIVES, 11/19/16) Vancomycin (Verified Allergy, Intermediate, HIVES, 11/19/16) Prednisone (Verified Allergy, Mild, CHEST TIGHTNESS, 11/19/16) Azithromycin (Verified Allergy, Unknown, HIVES, 11/19/16) Carbamazepine (Verified Allergy, Unknown, [id number], 11/19/16) Cefepime (Verified Allergy, Unknown, face & arm redness/itching after 2nd or 3rd dose cefepime, 11/19/16) Ceftriaxone (Verified Allergy, Unknown, Received in [facility] (but needed benadryl for course of therapy, 11/19/16) this was during 01/2016 [facility] admission for Rocephin Ciprofloxacin (Unverified Allergy, Unknown, ABD PAINS, 11/19/16) Sertraline (Verified Allergy, Unknown, UNKNOWN, 11/19/16) Sitagliptin (Verified Allergy, Unknown, HIVES, 11/19/16) Tetracyclines (Verified Adverse Reaction, Severe, HIVES, 11/19/16) Sulfa Antibiotics (Verified Adverse Reaction, Intermediate, MIGRAINES, 11/19/16) Fexofenadine (Verified Adverse Reaction, Mild, GI SYMPTOMS, 11/19/16) Tizanidine (Verified Adverse Reaction, Mild, ITCHING-HIVES, 11/19/16) Home Medications Scheduled Aspirin (Aspirin Ec), 81 MG PO DAILY Atenolol (Atenolol), 25 MG PO DAILY Baclofen (Baclofen), 20 MG PO TID Duloxetine HCl (Duloxetine HCl), 30 MG PO BID Furosemide (Furosemide), 40 MG PO prn Home O2 Therapy (Oxygen), 3 LITERS NA DAYTIME Insulin Human NPH (Novolin N), 90 UNITS SC TIDM Levothyroxine Sodium (Levothyroxine Sodium), 100 MCG PO QAM Lorazepam (Lorazepam), 2 MG PO HS Metformin HCl (Metformin HCl ER), 500 MG PO BID Montelukast Sod (Montelukast Sodium), 10 MG PO HS Pantoprazole (Pantoprazole Sodium), 40 MG PO QAM Pregabalin (Lyrica), 200 MG PO TID Probiotic Product (Probiotic), 1 CAP PO HS Simvastatin (Simvastatin), 20 MG PO HS Tiotropium [place] (Spiriva Handihaler), 1 PUFF INH QAM Ursodiol (Ursodiol), 600 MG PO BID Scheduled PRN Albuterol Hfa (Ventolin Hfa), 2 PUFFS INH QID PRN for SOB/Wheezing Albuterol Sulf (Proventil 0.083% 2.5MG/3ML), 1 VIAL NEB Q6H PRN for SOB/Wheezing Celecoxib (Celecoxib), 200 MG PO DAILY PRN for Pain Hydroxyzine HCl (Hydroxyzine HCl), 25 MG PO Q6H PRN for Itching Lactulose (Chronulac), 15 ML PO DAILY PRN for Severe Constipation Lorazepam (Ativan), 1-2 MG PO BID PRN for Anxiety Miconazole Nitrate (Desenex Shake Powder), 1 APPLN TOP BID PRN for Affected Skin Folds Nystatin (Nystatin Cream), 1 APPLN TOP BID PRN for Affected Skin Folds Ondansetron Hcl (Zofran), 4 MG PO Q6H PRN for Nausea Polyethylene Glycol 3350 (Miralax), 17 GM PO BID PRN for Constipation Silver Sulfadiazine (Silvadene), 1 APPLN TOP DAILY PRN for SKIN TEAR OR ABRASION Sumatriptan Succinate (Imitrex), 100 MG PO UD PRN for Migraine Triamcinolone Acet (Triamcinolone Acetonide), 1 APPLN TOP BID PRN for Redness and Itching Physical Exam Vital Signs Date Time Temp Pulse Resp B/P (MAP) Pulse Ox O2 Delivery O2 Flow Rate FiO2 11/19/16 19:57 36.7 91 22 157/64 (95) 96 Nasal Cannula 4.0 11/19/16 19:03 88 20 95 Nasal Cannula 4.0 11/19/16 16:35 36.9 74 20 109/51 (70) 96 BiPAP 11/19/16 16:00 Nasal Cannula 4.0 11/19/16 15:38 68 98 25 11/19/16 15:37 68 20 98 BiPAP 11/19/16 15:34 68 20 98 BiPAP/CPAP 25 11/19/16 13:00 88 92 25 11/19/16 12:30 36.7 81 24 167/68 (101) 92 Nasal Cannula 4.0 11/19/16 12:24 36.8 87 24 167/69 96 11/19/16 12:16 167/69 11/19/16 11:57 161/73 11/19/16 11:36 87 24 96 11/19/16 11:31 159/68 11/19/16 11:06 86 21 94 11/19/16 11:01 155/62 11/19/16 11:00 84 24 95 11/19/16 10:31 152/67 11/19/16 10:30 88 20 96 11/19/16 10:28 81 97 40 11/19/16 10:03 91 Nasal Cannula 4.0 11/19/16 10:01 147/122 11/19/16 10:00 93 24 91 11/19/16 09:31 169/71 11/19/16 09:30 89 20 93 11/19/16 09:16 167/60 11/19/16 09:14 166/72 11/19/16 08:35 90 11/19/16 08:30 92 23 92 11/19/16 08:24 36.8 92 20 161/65 91 Nasal Cannula 4.0 11/19/16 08:12 161/65 General Appearance: + obese (drowsy) Head: normocephalic, atraumatic Eyes: normal inspection, sclerae normal ENT: + pertinent finding (bipap mask in place) Neck: supple Respiratory/Chest: lungs clear, normal breath sounds, no respiratory distress, no accessory muscle use Cardiovascular: regular rate, rhythm, no edema, no JVD, no murmur Abdomen/GI: normal bowel sounds, non tender, soft Extremities/Musculoskelatal: normal inspection, no calf tenderness, no pedal edema Neurologic/Psych: + pertinent finding (drowsy but rousable, oriented x 2) Skin: normal color, warm/dry, no rash Lymphatic: no adenopathy Diagnostics Laboratory Results Results Past 24 Hours Test 11/19/16 08:20 11/19/16 08:37 11/19/16 08:41 11/19/16 08:43 Range/Units Urine Color YELLOW Urine Appearance CLEAR CLEAR Urine pH 5.0 4.5-7.5 Urine Specific Taylor 1.020 1.000-1.030 Urine Protein TRACE NEG Urine Glucose (UA) NEG NEG Urine Ketones NEG NEG Urine Occult Blood 3+ NEG Urine Nitrite NEG NEG Urine Bilirubin NEG NEG Urine Urobilinogen NEG NEG Urine Leukocyte Esterase NEG NEG Urine WBC (Auto) 1-5 0-5 /hpf Urine RBC (Auto) >30 0-4 /hpf Urine Hyaline Casts (Auto) 0 0-5 /lpf Urine Epithelial Cells (Auto) 0-5 0-5 /lpf Urine Bacteria (Auto) NEG NEG Bedside Lactic Acid Venous 1.15 0.90-1.70 mmol/L Bedside Hemoglobin 13.6 12.0-16.0 g/dl Bedside Hematocrit 40 37-47 % Bedside Sodium 141 135-144 mEq/L Bedside Potassium 4.5 3.3-5.0 mEq/L Bedside Chloride 98 101-112 mEq/L Bedside Total CO2 38 24-31 mEq/l Anion Gap 10.0 3.0 3-11 mmol/L Bedside Blood Urea Nitrogen 15 7-18 mg/dl Bedside Creatinine 0.6 0.6-1.3 mg/dl Bedside Glucose (other) 166 70-99 mg/dl Bedside Ionized Calcium (Loretta) 1.14 1.12-1.32 mmol/l White Blood Count 9.69 4.8-10.8 K/uL Red Blood Count 5.03 4.2-5.4 M/uL Hemoglobin 11.8 12.0-16.0 g/dL Hematocrit 41.3 37-47 % Mean Corpuscular Volume 82.1 80-100 fL Mean Corpuscular Hemoglobin 23.5 25-34 pg Mean Corpuscular Hemoglobin Concent 28.6 32-36 g/dl Platelet Count 150 130-400 K/uL Mean Platelet Volume 11.5 7.4-10.4 fL Neutrophils (%) (Auto) 71.2 % Lymphocytes (%) (Auto) 17.0 % Monocytes (%) (Auto) 7.7 % Eosinophils (%) (Auto) 2.4 % Basophils (%) (Auto) 0.3 % Neutrophils # (Auto) 6.89 1.4-6.5 K/uL Lymphocytes # (Auto) 1.65 1.2-3.4 K/uL Monocytes # (Auto) 0.75 0.11-0.59 K/uL Eosinophils # (Auto) 0.23 0-0.5 K/uL Basophils # (Auto) 0.03 0-0.2 K/uL RDW Standard Deviation 51.9 36.4-46.3 fL RDW Coefficient of Variation 17.4 11.5-14.5 % Immature Granulocyte % (Auto) 1.4 % Immature Granulocyte # (Auto) 0.14 0.00-0.02 K/uL Prothrombin Time 10.6 9.0-12.0 SECONDS Prothromb Time International Ratio 1.0 0.9-1.1 Sodium Level 143 136-145 mmol/L Potassium Level 4.1 3.5-5.1 mmol/L Chloride Level 102 98-107 mmol/L Carbon Dioxide Level 38 21-32 mmol/L Blood Urea Nitrogen 11 7-18 mg/dl Creatinine 0.54 0.60-1.20 mg/dl Est Creatinine Clear Calc Drug Dose 168.4 ml/min Estimated GFR () 114.0 Estimated GFR (Non- 98.3 BUN/Creatinine Ratio 20.4 10-20 Random Glucose 159 70-99 mg/dl Calcium Level 8.7 8.5-10.1 mg/dl Magnesium Level 2.1 1.8-2.4 mg/dl Total Bilirubin 0.3 0.2-1 mg/dl Direct Bilirubin 0.1 0-0.2 mg/dl Aspartate Amino Transf (AST/SGOT) 15 15-37 U/L Alanine Aminotransferase (ALT/SGPT) 19 12-78 U/L Alkaline Phosphatase 84 45-117 U/L Total Creatine Kinase 13 26-192 U/L Creatine Kinase MB < 0.5 0.5-3.6 ng/ml Creatine Kinase MB Ratio 0-3.0 Troponin I < 0.015 0-0.045 ng/ml Total Protein 6.9 6.4-8.2 gm/dl Albumin 3.1 3.4-5.0 gm/dl Test 11/19/16 08:48 11/19/16 13:37 11/19/16 15:47 11/19/16 16:05 Range/Units Venous Blood pH 7.21 7.36-7.41 Venous Blood Partial Pressure CO2 97 38.0-50.0 mmHg Venous Blood Partial Pressure O2 66 mmHg Venous Blood HCO3 38 mmol/L Venous Blood Oxygen Saturation 89.5 % Venous Blood Base Excess 7.4 mEq/L Ammonia 39.9 11-32 umol/L Bedside Glucose 177 70-90 mg/dl Arterial Blood pH 7.32 7.35-7.45 Arterial Blood Partial Pressure CO2 73 35-46 mmHg Arterial Blood Partial Pressure O2 62 80-95 mm/Hg Arterial Blood HCO3 37 19-24 mmol/L Arterial Blood Oxygen Saturation 90.6 90-95 % Arterial Blood Base Excess 8.6 -9-1.8 mEq/L Arterial Blood Gas Delivery 25% Bill Test POS POS Test 11/19/16 20:33 Range/Units Bedside Glucose 181 70-90 mg/dl Microbiology Results 11/19/16 Blood Culture, Received Pending 11/19/16 Blood Culture, Received Pending 11/19/16 Urine Culture, Received Pending Diagnostic Radiology CXR 1. Cardiomegaly and pulmonary vascular congestion without overt pulmonary edema. 2. Small left pleural effusion with subsegmental left basilar opacities suggesting atelectasis or pneumonia. Impression Assessment and Plan 65 year old female with history of Recurrent UTIs, Chronic Respiratory Failure on 4 liters home Oxygen, Obesity Hypoventilation Syndrome, Asthma, DM 2, HTN, Morbid Obesity, Chronic Pain, Depression, presenting with confusion and weakness. HYPERCAPNEIC RESPIRATORY FAILURE POSSIBLE LEFT SIDED PNEUMONIA - Bipap ordered - ff up cultures - empiric Ertapenem IV Nebs q6h - Dr. Bennett consulted ALTERED MENTAL STATUS - from Hypercapnea, management noted above - check ammonia check cultures DM 2 ISS for now Pharmacy consulted HTN on Metoprolol MORBID OBESITY CHRONIC PAIN hold pain meds until mental status improves ASTHMA does not seem to be in exacerbation DVT prophylaxis will need Lovenox FULL CODE DISPOSITION pending Advanced Directives Existing Living Will: No Existing Power of Supervisor [employer] Assembly: No VTE Prophylaxis VTE Risk Assessment Done? Y/N: Yes Risk Level: Moderate
[2016-11-20] VITALS (15 sets, daily range): BP systolic 121–147; BP diastolic 47–85; PULSE 53–84; TEMP 36.6–37.4; O2SAT 90–97
[2016-11-20] MEDS: INSULIN ASPART 100 UNITS/ML 3 ML PEN SC SCH ×6 (00:02→21:55)
[2016-11-20] MEDS: LEVALBUTEROL 1.25MG/0.5ML NEB INH SCH ×4 (01:31→19:33)
[2016-11-20] MEDS: IPRATROPIUM BROMIDE NEB SOLN 0.02% 2.5 ML VIAL INH SCH ×4 (01:31→19:32)
[2016-11-20] MEDS: LEVOTHYROXINE 100 MCG TAB PO SCH (06:00)
[2016-11-20 06:02] LABS: BASO % 0.2 %; BASO ABS # 0.02 K/uL (0-0.2); COMPLETE YES; EOS % 2.3 %; IG% 0.8 %; LYMPH % 23.1 %; LYMPH ABS # 1.97 K/uL (1.2-3.4); MEAN CELL VOLUME 79.8 fL (80-100); MEAN CORPUSCULAR HEMOGLOBIN 23.5 pg (25-34); MEAN CORPUSCULAR HGB CONC 29.4 g/dl (32-36); MEAN PLATELET VOLUME 11.1 fL (7.4-10.4); MONO % 9.1 %; NEUT % 64.5 %; PLATELET COUNT 131 K/uL (130-400); RED BLOOD COUNT 4.51 M/uL (4.2-5.4); WHITE BLOOD COUNT 8.53 K/uL (4.8-10.8)
[2016-11-20 06:31] LABS: BUN/CREATININE RATIO 23.2 (10-20); CALCIUM 8.4 mg/dl (8.5-10.1); CREATININE 0.53 mg/dl (0.60-1.20); POTASSIUM 3.6 mmol/L (3.5-5.1)
--- NOTE | 2016-11-20 07:27 | PULMONARY PROGRESS NOTE ---
DATE: 11/20/2016 TIME: 06:30 a.m. SUBJECTIVE: The patient indicates she feels much better. She is awake and alert today. She does not recall that I was in to see her yesterday. She denies any shortness of breath. She did wear the BiPAP all night. She tells me she did not sleep hardly at all and the nurse corroborated this history. OBJECTIVE: GENERAL: The patient was cooperative, alert and oriented. She knew she was at [facility]. She knew the month and she knew the year. ENT: Unremarkable. VITAL SIGNS: Temperature this morning was 37.2, done axillary. Heart rate is 75 per minute. The rhythm is regular. Blood pressure is 133/47. LUNGS: Auscultation of the lung rojas revealed some wheezing, which seems to be in the upper airway. This would be when the patient has forced expiration. Deep breaths did make her cough a bit. Lung rojas peripherally were fairly clear. Her oxygen saturation is recorded as 90%. This apparently was when she was still on the BiPAP. At the time of this exam, her saturation is 95% on 4 liter nasal cannula. ABDOMEN: Markedly obese. Bowel sounds were normal. There was no tenderness to palpation. EXTREMITIES: Show mild nonpitting edema in both lower extremities. There was no cyanosis or clubbing. CBC this morning shows a white count of 8.53. Hemoglobin is 10.6. This is down from 11.8 yesterday. Platelets are 131,000. The patient had a blood gas yesterday afternoon that showed a pH of 7.32 with a pCO2 of 73 and a pO2 of 62. This was done on BiPAP. Chemistry studies from today still pending. IMPRESSIONS: 1. Altered mental status, likely secondary to elevated carbon dioxide levels. 2. Respiratory failure -- acute on chronic with hypercarbia and hypoxia. 3. Obesity hypoventilation syndrome. 4. Obstructive sleep apnea. 5. Left basilar opacification, questionable atelectasis versus infiltrate versus small effusion. COMMENTS AND RECOMMENDATIONS: The patient is clinically improved. I believe we can use the BiPAP now just at night unless she has a return of her hypersomnolence. I would avoid any significant doses of lorazepam as she had been taking at home. I agree with her current respiratory medications, which is primarily the nebulizer treatments with levalbuterol and ipratropium every 6 hours. She is also on montelukast 10 mg. She is also on tiotropium daily. She is on the ertapenem for antibiotic coverage. Would encourage getting the patient out of bed.
[2016-11-20] MEDS: PANTOprazole SOD 40 MG TAB PO SCH (07:40)
[2016-11-20] MEDS: DULOXETINE (CYMBALTA) 30 MG CAP PO SCH ×2 (07:40→21:49)
[2016-11-20] MEDS: ASPIRIN 81 MG ECTAB PO SCH (07:41)
[2016-11-20] MEDS: URSODIOL 300 MG CAP PO SCH ×2 (07:42→21:49)
[2016-11-20] MEDS: TIOTROPIUM BROMIDE 5 PUFF/90 MCG INH INH SCH (07:42)
[2016-11-20] MEDS: INSULIN HUMAN NPH SC SCH ×3 (08:23→17:14)
[2016-11-20] MEDS: PREGABALIN 100 MG CAP PO SCH ×3 (08:23→21:48)
[2016-11-20] MEDS: ERTAPENEM IV 1 GM in SODIUM CHLOR 0.9% AD-VAN 50ML IV SCH (09:53)
[2016-11-20] MEDS: TRAZODONE HCL 50 MG TAB PO PRN (21:48)
[2016-11-20] MEDS: LACTOBACILLUS ACIDOPHILUS (FLORANEX) TAB PO SCH (21:49)
[2016-11-20] MEDS: MONTELUKAST SOD 10 MG TAB PO SCH (21:50)
--- NOTE | 2016-11-20 22:14 | Progress Note ---
Medicine Progress Note Date & Time of Visit: Nov 20, 2016 at 22:10. Subjective patient seen resting in bed, alert, oriented x 3, pleasant states she feels better denies active dyspnea, has minimal cough no other symptoms Objective Last 8 Hrs Date Time Temp Pulse Resp B/P (MAP) Pulse Ox O2 Delivery O2 Flow Rate FiO2 11/20/16 20:30 37.0 82 22 138/70 (92) 93 Nasal Cannula 2.0 11/20/16 19:33 73 18 94 Nasal Cannula 2.0 11/20/16 16:44 37.1 72 20 142/56 (84) 95 Nasal Cannula 2.0 11/20/16 16:00 Nasal Cannula 2.0 11/20/16 14:20 66 18 95 Nasal Cannula 2.0 Physical Exam: General- oriented x 3, not in distress, speaks in sentences with no effort Head- atraumatic Eyes- EOMI, anicteric ENT- oropharynx clear Neck- supple, no JVD, no adenopathy Lungs- clear to auscultation b/l Heart- regular rhythm; no murmur, normal rate Abdomen- normal bowel sounds, soft, nontender Extremities- no pretibial edema, no calf tenderness Neuro- alert, oriented x 3; no gross focal deficits Skin- warm & dry Laboratory Results: Last 24 Hours Test 11/19/16 23:59 11/20/16 04:11 11/20/16 05:27 11/20/16 06:33 Bedside Glucose 167 mg/dl 150 mg/dl 137 mg/dl White Blood Count 8.53 K/uL Red Blood Count 4.51 M/uL Hemoglobin 10.6 g/dL Hematocrit 36.0 % Mean Corpuscular Volume 79.8 fL Mean Corpuscular Hemoglobin 23.5 pg Mean Corpuscular Hemoglobin Concent 29.4 g/dl Platelet Count 131 K/uL Mean Platelet Volume 11.1 fL Neutrophils (%) (Auto) 64.5 % Lymphocytes (%) (Auto) 23.1 % Monocytes (%) (Auto) 9.1 % Eosinophils (%) (Auto) 2.3 % Basophils (%) (Auto) 0.2 % Neutrophils # (Auto) 5.49 K/uL Lymphocytes # (Auto) 1.97 K/uL Monocytes # (Auto) 0.78 K/uL Eosinophils # (Auto) 0.20 K/uL Basophils # (Auto) 0.02 K/uL RDW Standard Deviation 49.2 fL RDW Coefficient of Variation 17.0 % Immature Granulocyte % (Auto) 0.8 % Immature Granulocyte # (Auto) 0.07 K/uL Sodium Level 139 mmol/L Potassium Level 3.6 mmol/L Chloride Level 99 mmol/L Carbon Dioxide Level 35 mmol/L Anion Gap 5.0 mmol/L Blood Urea Nitrogen 12 mg/dl Creatinine 0.53 mg/dl Est Creatinine Clear Calc Drug Dose 171.6 ml/min Estimated GFR () 114.7 Estimated GFR (Non- 98.9 BUN/Creatinine Ratio 23.2 Random Glucose 139 mg/dl Estimated Average Glucose 157 mg/dl Hemoglobin A1c 7.1 % Calcium Level 8.4 mg/dl Test 11/20/16 11:36 11/20/16 16:29 11/20/16 20:16 Bedside Glucose 172 mg/dl 159 mg/dl 189 mg/dl Date/Time Source Procedure Growth Status 11/20/16 11:20 Stool C.difficile Toxin B Gene (PCR) - Final No C. difficile toxin B gene detected Complete Assessment & Plan 65 year old female with history of Recurrent UTIs, Chronic Respiratory Failure on 4 liters home Oxygen, Obesity Hypoventilation Syndrome, Asthma, DM 2, HTN, Morbid Obesity, Chronic Pain, Depression, presenting with confusion and weakness. HYPERCAPNEIC RESPIRATORY FAILURE POSSIBLE LEFT SIDED PNEUMONIA - Bipap ordered patient now alert, oriented - ff up cultures - empiric Ertapenem IV Day2 Nebs q6h Bipap at HS - Dr. Bennett consulted ALTERED MENTAL STATUS - from Hypercapnea, management noted above - check ammonia: 39 but patient now back to baseline even without treatment check cultures DM 2 ISS for now Pharmacy consulted HTN on Metoprolol MORBID OBESITY CHRONIC PAIN hold pain meds until mental status improves ASTHMA does not seem to be in exacerbation DVT prophylaxis will need Lovenox SCDs FULL CODE DISPOSITION pending Current Inpatient Medications: Current Inpatient Medications Medications (Trade) Dose Ordered Sig/Keith Route Start Time Stop Time Status Last Admin Dose Admin Miscellaneous Information 1 ea UD PRN N/A 11/19/16 13:13 12/19/16 13:12 Glucose (Glucose 40% Gel) 15-30 GRAMS 15 GRAMS... UD PRN PO 11/19/16 13:00 12/19/16 12:59 Glucose (Glucose Chew Tab) 4-8 Tablets 4 Tabl... UD PRN PO 11/19/16 13:00 12/19/16 12:59 Dextrose (Dextrose 50% 50ML Syringe) 25-50ML OF 50% DW IV FOR... UD PRN IV 11/19/16 13:00 12/19/16 12:59 Glucagon (Glucagon Inj) 1 mg UD PRN SQ 11/19/16 13:00 12/19/16 12:59 Miscellaneous Information (Consult Glycemic Management Pharmacy) 1 ea UD PRN N/A 11/19/16 13:14 12/19/16 13:13 Aspirin (Ecotrin Tab) 81 mg DAILY PO 11/20/16 09:00 12/20/16 08:59 11/20/16 07:41 81 MG Celecoxib (CeleBREX CAP) 200 mg DAILY PRN PO 11/19/16 13:15 12/19/16 13:14 Duloxetine HCl (Cymbalta Cap) 30 mg BID PO 11/19/16 21:00 12/19/16 20:59 11/20/16 21:49 30 MG Levothyroxine Sodium (Synthroid Tab) 100 mcg DAILYBB PO 11/20/16 06:00 12/20/16 05:59 11/20/16 06:00 100 MCG Miconazole Nitrate (Desenex Powder) 1 appln BID PRN EXT 11/19/16 13:15 12/19/16 13:14 Montelukast Sodium (Singulair Tab) 10 mg HS PO 11/19/16 21:00 12/19/16 20:59 11/20/16 21:50 10 MG Nystatin (Mycostatin Crm) 1 appln BID PRN EXT 11/19/16 13:15 12/19/16 13:14 Pantoprazole Sodium (Protonix Tab) 40 mg QAM PO 11/20/16 09:00 12/20/16 08:59 11/20/16 07:40 40 MG Pregabalin (Lyrica Cap) 200 mg TID PO 11/19/16 14:00 12/19/16 13:59 11/20/16 21:48 200 MG Tiotropium [place] (Spiriva Handihaler Inhaler) 1 puff QAM INH 11/20/16 09:00 12/20/16 08:59 10/7/17 07:42 1 PUFF Ursodiol (Actigall Cap) 600 mg BID PO 11/19/16 21:00 12/19/16 20:59 11/20/16 21:49 600 MG Lactobacillus Acidophilus (Floranex Tab) 1 tab HS PO 11/19/16 21:00 12/19/16 20:59 11/20/16 21:49 1 TAB Atenolol (Tenormin Tab) 25 mg DAILY PO 11/20/16 09:00 12/20/16 08:59 11/20/16 07:41 25 MG Ipratropium [place] (Atrovent 0.02% 0.5MG/2.5ML Neb) 0.5 mg Q6R INH 11/19/16 15:00 12/19/16 14:59 11/20/16 19:32 0.5 MG Levalbuterol (Xopenex 1.25MG/ 0.5ML Neb) 1.25 mg Q6R INH 11/19/16 15:00 12/19/16 14:59 11/20/16 19:33 1.25 MG Ertapenem 1 gm/ Sodium Chloride 50 ml @ 100 mls/hr Q24H IV 11/20/16 10:00 11/29/16 09:59 11/20/16 09:53 100 MLS/HR Insulin Human NPH (novoLIN-N NPH) 30 units TIDM SC 11/19/16 16:45 12/19/16 16:44 11/20/16 17:14 30 UNITS Insulin Aspart (novoLOG ASPART) SLIDING SCALE If C... ACHS SC 11/19/16 16:45 12/19/16 16:44 11/20/16 21:55 2 UNITS Trazodone HCl (Desyrel Tab) 50 mg HS PRN PO 11/20/16 20:30 12/20/16 20:29 11/20/16 21:48 50 MG
[2016-11-21] VITALS (9 sets, daily range): BP systolic 128–148; BP diastolic 58–74; PULSE 68–79; TEMP 36.6–36.9; O2SAT 91–94
[2016-11-21] MEDS: LEVALBUTEROL 1.25MG/0.5ML NEB INH SCH ×4 (01:40→19:13)
[2016-11-21] MEDS: IPRATROPIUM BROMIDE NEB SOLN 0.02% 2.5 ML VIAL INH SCH ×4 (01:40→19:13)
[2016-11-21] MEDS: LEVOTHYROXINE 100 MCG TAB PO SCH (05:01)
[2016-11-21 06:27] LABS: BUN/CREATININE RATIO 20.5 (10-20); CALCIUM 8.4 mg/dl (8.5-10.1); CREATININE 0.55 mg/dl (0.60-1.20); POTASSIUM 3.1 mmol/L (3.5-5.1)
[2016-11-21] MEDS: TIOTROPIUM BROMIDE 5 PUFF/90 MCG INH INH SCH (07:34)
[2016-11-21] MEDS: PREGABALIN 100 MG CAP PO SCH ×3 (07:35→20:49)
[2016-11-21] MEDS: PANTOprazole SOD 40 MG TAB PO SCH (07:35)
[2016-11-21] MEDS: DULOXETINE (CYMBALTA) 30 MG CAP PO SCH ×2 (07:35→20:49)
[2016-11-21] MEDS: URSODIOL 300 MG CAP PO SCH ×2 (07:35→20:49)
[2016-11-21 07:37] LABS: MEAN CORPUSCULAR HGB CONC 29.7 g/dl (32-36)
[2016-11-21] MEDS: ASPIRIN 81 MG ECTAB PO SCH (07:37)
[2016-11-21 07:51] LABS: HEMATOCRIT 36.7 % (37-47); MEAN CELL VOLUME 78.3 fL (80-100); MEAN CORPUSCULAR HEMOGLOBIN 23.2 pg (25-34); RED BLOOD COUNT 4.69 M/uL (4.2-5.4); WHITE BLOOD COUNT 8.01 K/uL (4.8-10.8)
[2016-11-21] MEDS: INSULIN HUMAN NPH SC SCH ×3 (08:30→16:54)
[2016-11-21] MEDS: INSULIN ASPART 100 UNITS/ML 3 ML PEN SC SCH ×4 (08:30→20:52)
[2016-11-21] MEDS: ENOXAPARIN 40 MG/0.4 ML SYR SQ SCH (08:31)
[2016-11-21 08:35] LABS: BASO % 0.5 %; BASO ABS # 0.04 K/uL (0-0.2); COMPLETE YES; EOS % 2.7 %; LYMPH % 25.2 %; LYMPH ABS # 2.02 K/uL (1.2-3.4); MEAN PLATELET VOLUME 10.8 fL (7.4-10.4); MONO % 8.9 %; NEUT % 61.7 %; PLATELET COUNT 137 K/uL (130-400); PLT ESTIMATE NORMAL
[2016-11-21] MEDS ORDERED: POTASSIUM CHLORIDE 10 MEQ TABCR PO ONE (09:45)
[2016-11-21] MEDS: ERTAPENEM IV 1 GM in SODIUM CHLOR 0.9% AD-VAN 50ML IV SCH (10:05)
--- NOTE | 2016-11-21 13:51 | Pharmacy Progress Note ---
Glycemic Control Progress Note Date of Service Nov 21, 2016. Scope Glycemic Pharmacist consulted for glycemic control to write orders per [facility] inpatient glycemic control protocol. Objective Accuchecks BSG (last 24hrs): Test 11/20/16 16:29 11/20/16 20:16 11/21/16 05:21 11/21/16 07:09 Bedside Glucose 159 mg/dl (70-90) 189 mg/dl (70-90) 144 mg/dl (70-90) Random Glucose 146 mg/dl (70-99) Test 11/21/16 11:13 Bedside Glucose 181 mg/dl (70-90) HbA1c: Test 11/20/16 05:27 Hemoglobin A1c 7.1 % (4.5-5.6) H Recent Pertinent Medications The patient is currently receiving: * Basal Insulin: NPH 30 units SQ TID with meals * Correctional Insulin: Novolog Correction per scale ACHS Goal Range: Low 120 mg/dL - High 160 mg/dL Correction Factor: 15 mg/dL/unit * Prandial insulin: Per carb ratio of 1 unit per 5 grams CHO consumed Assessment & Plan ASSESSMENT: 11/19/16 * Ms Ramon is a 65yo diabetic female, known to the pharmacy glycemic management service from past admissions. * Due to multiple medication allergies (including Levemir and Lantus) patient is on a very unconventional insulin regimen (NPH three times daily). * Patient is NPO for now, so will schedule NPH q8h rather than TIDM. Will adjust when diet is advanced. * A1c ordered with tomorrow's labs to assess recent glycemic control as an outpatient. * NPH dose appears to have been increased since last admission. 11/21/16 * Patient started diet two days ago, moved NPH to TID with meals, blood sugars overall pretty good, but rising some throughout the day with eating, will tighten CR slightly to help with postprandial BSGs. * Fasting BSGs at goal, continue NPH dose for this time * Patient continues IV Ertapenem for pneumonia. PLAN FOR INPATIENT GLYCEMIC CONTROL: * Holding outpatient oral diabetes medications for now * Will consider resuming when diet is advanced * Basal insulin with NPH 30 units SQ TID meals * This dose is greatly reduced from home dose, based on data from past admissions * Correctional Insulin with NOVOLOG per scale ACHS while NPO * Goal Range: Low 120 mg/dL - High 160 mg/dL * Correction Factor: 15 mg/dL/unit * TIGHTEN: Nutritional / Prandial insulin per carb ratio of 1 unit per 4 grams CHO consumed * Please note that the plan above was derived based on current level of insulin resistance and hospital stress. These recommendations are appropriate for inpatient admission only. Plan of care upon discharge will need to be reassessed to avoid potential outpatient hypo/hyperglycemia. Thank you.
--- NOTE | 2016-11-21 16:08 | PULMONARY PROGRESS NOTE ---
DATE: 11/21/2016 TIME: 3:25 p.m. SUBJECTIVE: The patient complains of not sleeping hardly at all last night. She has had problems wearing her BiPAP. She complains of air leaks. I believe the mask is the uncomfortable part for her. She feels very tired. Nursing reports that early this morning she had an episode of bradycardia with heart rates as low as 39. This was apparently fairly transient. She did not have the BiPAP on at that time. Nursing did not know if her saturations were low because the patient had pulled the pulse ox off. She denies shortness of breath. OBJECTIVE: GENERAL: The patient looks fatigued. VITAL SIGNS: Temperature is 36.9. Current heart rate is 72 per minute. The rhythm is regular. Blood pressure 148/64. LUNGS: Lung rojas are clear. The breath sounds are diminished. This may in part be related to her obesity. Saturation was 94% on 2 liters. ABDOMEN: Remains obese. Bowel sounds were normal. LABORATORY DATA: White count today is 8.01. Hemoglobin 10.9. Platelets 137,000. Electrolytes show sodium 143, potassium 3.1, chloride 101, bicarbonate 36. BUN was 11 with creatinine 0.55. IMPRESSIONS: 1. Altered mental status - resolved. 2. Respiratory failure - acute on chronic with hypoxia and hypercarbia. 3. Obesity hypoventilation syndrome. 4. Obstructive sleep apnea. 5. Mild atelectasis. COMMENTS AND RECOMMENDATIONS: The patient wants to wear her own CPAP tonight. We had the staff check and her pressure is 14/7. That should be okay. We need to contact [facility] [employer] and get compliance data from them. This should detail for us if she is still having any significant sleep apnea at the pressure her machine is currently set at. If so, we could adjust the pressure appropriately. Will check abg in am. Dr. Ferrell will be seeing the patient tomorrow from a pulmonary perspective. SB
[2016-11-21] MEDS: ACETAMINOPHEN 500 MG TAB PO PRN (16:51)
[2016-11-21] MEDS: TRAZODONE HCL 50 MG TAB PO PRN (20:49)
[2016-11-21] MEDS: LACTOBACILLUS ACIDOPHILUS (FLORANEX) TAB PO SCH (20:49)
[2016-11-21] MEDS: MONTELUKAST SOD 10 MG TAB PO SCH (20:49)
--- NOTE | 2016-11-21 21:19 | Progress Note ---
Medicine Progress Note Date & Time of Visit: Nov 21, 2016 at 21:16. Subjective seen resting in bed, comfortable alert, oriented x 3 not in distress has dry cough, no dyspnea no other symptoms Objective Last 8 Hrs Date Time Temp Pulse Resp B/P (MAP) Pulse Ox O2 Delivery O2 Flow Rate FiO2 11/21/16 19:45 36.8 71 18 134/58 (83) 93 Nasal Cannula 2.0 11/21/16 19:13 68 20 94 Nasal Cannula 2.0 11/21/16 16:29 36.6 71 22 128/74 (92) 91 Nasal Cannula 2.0 11/21/16 16:00 Nasal Cannula 2.0 11/21/16 14:06 68 20 94 Nasal Cannula 2.0 Physical Exam: General- oriented x 3, not in distress, speaks in sentences with no effort Eyes- anicteric Neck- supple, no JVD Lungs- clear breath sounds bilaterally Heart- regular rhythm; no murmur, normal rate Abdomen- normal bowel sounds, soft, nontender Extremities- no pretibial edema, no calf tenderness Neuro- alert, oriented x 3; no gross focal deficits Skin- warm & dry Laboratory Results: Last 24 Hours Test 11/21/16 05:21 11/21/16 07:09 11/21/16 11:13 11/21/16 16:12 White Blood Count 8.01 K/uL Red Blood Count 4.69 M/uL Hemoglobin 10.9 g/dL Hematocrit 36.7 % Mean Corpuscular Volume 78.3 fL Mean Corpuscular Hemoglobin 23.2 pg Mean Corpuscular Hemoglobin Concent 29.7 g/dl Platelet Count 137 K/uL Mean Platelet Volume 10.8 fL Neutrophils (%) (Auto) 61.7 % Lymphocytes (%) (Auto) 25.2 % Monocytes (%) (Auto) 8.9 % Eosinophils (%) (Auto) 2.7 % Basophils (%) (Auto) 0.5 % Neutrophils # (Auto) 4.94 K/uL Lymphocytes # (Auto) 2.02 K/uL Monocytes # (Auto) 0.71 K/uL Eosinophils # (Auto) 0.22 K/uL Basophils # (Auto) 0.04 K/uL RDW Standard Deviation 49.1 fL RDW Coefficient of Variation 17.3 % Immature Granulocyte % (Auto) 1.0 % Immature Granulocyte # (Auto) 0.08 K/uL Platelet Estimate NORMAL Sodium Level 143 mmol/L Potassium Level 3.1 mmol/L Chloride Level 101 mmol/L Carbon Dioxide Level 36 mmol/L Anion Gap 6.0 mmol/L Blood Urea Nitrogen 11 mg/dl Creatinine 0.55 mg/dl Est Creatinine Clear Calc Drug Dose 165.7 ml/min Estimated GFR () 113.3 Estimated GFR (Non- 97.7 BUN/Creatinine Ratio 20.5 Random Glucose 146 mg/dl Calcium Level 8.4 mg/dl Bedside Glucose 144 mg/dl 181 mg/dl 188 mg/dl Test 11/21/16 20:12 Bedside Glucose 188 mg/dl Assessment & Plan 65 year old female with history of Recurrent UTIs, Chronic Respiratory Failure on 4 liters home Oxygen, Obesity Hypoventilation Syndrome, Asthma, DM 2, HTN, Morbid Obesity, Chronic Pain, Depression, presenting with confusion and weakness. HYPERCAPNEIC RESPIRATORY FAILURE POSSIBLE LEFT SIDED PNEUMONIA - Bipap ordered , tolerating well patient remains alert, oriented - cultures negative so far - empiric Ertapenem IV Day 3 Nebs q6h Bipap at - Dr. Bennett consulted, appreciate the input ALTERED MENTAL STATUS - from Hypercapnea, management noted above - check ammonia: 39 but patient now back to baseline even without treatment check cultures DM 2 ISS for now Pharmacy consulted HTN on Metoprolol MORBID OBESITY CHRONIC PAIN hold pain meds until mental status improves ASTHMA does not seem to be in exacerbation DVT prophylaxis Lovenox SCDs FULL CODE DISPOSITION pending Current Inpatient Medications: Current Inpatient Medications Medications (Trade) Dose Ordered Sig/Keith Route Start Time Stop Time Status Last Admin Dose Admin Miscellaneous Information 1 ea UD PRN N/A 11/19/16 13:13 12/19/16 13:12 Glucose (Glucose 40% Gel) 15-30 GRAMS 15 GRAMS... UD PRN PO 11/19/16 13:00 12/19/16 12:59 Glucose (Glucose Chew Tab) 4-8 Tablets 4 Tabl... UD PRN PO 11/19/16 13:00 12/19/16 12:59 Dextrose (Dextrose 50% 50ML Syringe) 25-50ML OF 50% DW IV FOR... UD PRN IV 11/19/16 13:00 12/19/16 12:59 Glucagon (Glucagon Inj) 1 mg UD PRN SQ 11/19/16 13:00 12/19/16 12:59 Miscellaneous Information (Consult Glycemic Management Pharmacy) 1 ea UD PRN N/A 11/19/16 13:14 12/19/16 13:13 Aspirin (Ecotrin Tab) 81 mg DAILY PO 11/20/16 09:00 12/20/16 08:59 11/21/16 07:37 81 MG Celecoxib (CeleBREX CAP) 200 mg DAILY PRN PO 11/19/16 13:15 12/19/16 13:14 11/21/16 07:36 200 MG Duloxetine HCl (Cymbalta Cap) 30 mg BID PO 11/19/16 21:00 12/19/16 20:59 11/21/16 20:49 30 MG Levothyroxine Sodium (Synthroid Tab) 100 mcg DAILYBB PO 11/20/16 06:00 12/20/16 05:59 11/21/16 05:01 100 MCG Miconazole Nitrate (Desenex Powder) 1 appln BID PRN EXT 11/19/16 13:15 12/19/16 13:14 Montelukast Sodium (Singulair Tab) 10 mg HS PO 11/19/16 21:00 12/19/16 20:59 11/21/16 20:49 10 MG Nystatin (Mycostatin Crm) 1 appln BID PRN EXT 11/19/16 13:15 12/19/16 13:14 Pantoprazole Sodium (Protonix Tab) 40 mg QAM PO 11/20/16 09:00 12/20/16 08:59 11/21/16 07:35 40 MG Pregabalin (Lyrica Cap) 200 mg TID PO 11/19/16 14:00 12/19/16 13:59 11/21/16 20:49 200 MG Tiotropium [place] (Spiriva Handihaler Inhaler) 1 puff QAM INH 11/20/16 09:00 12/20/16 08:59 11/21/16 07:34 1 PUFF Ursodiol (Actigall Cap) 600 mg BID PO 11/19/16 21:00 12/19/16 20:59 11/21/16 20:49 600 MG Lactobacillus Acidophilus (Floranex Tab) 1 tab HS PO 11/19/16 21:00 12/19/16 20:59 11/21/16 20:49 1 TAB Atenolol (Tenormin Tab) 25 mg DAILY PO 11/20/16 09:00 12/20/16 08:59 11/21/16 07:37 25 MG Ipratropium [place] (Atrovent 0.02% 0.5MG/2.5ML Neb) 0.5 mg Q6R INH 11/19/16 15:00 12/19/16 14:59 11/21/16 19:13 0.5 MG Levalbuterol (Xopenex 1.25MG/ 0.5ML Neb) 1.25 mg Q6R INH 11/19/16 15:00 12/19/16 14:59 11/21/16 19:13 1.25 MG Ertapenem 1 gm/ Sodium Chloride 50 ml @ 100 mls/hr Q24H IV 11/20/16 10:00 11/29/16 09:59 11/21/16 10:05 100 MLS/HR Insulin Human NPH (novoLIN-N NPH) 30 units TIDM SC 11/19/16 16:45 12/19/16 16:44 11/21/16 16:54 30 UNITS Insulin Aspart (novoLOG ASPART) SLIDING SCALE If C... ACHS SC 11/19/16 16:45 12/19/16 16:44 11/21/16 20:52 2 UNITS Trazodone HCl (Desyrel Tab) 50 mg HS PRN PO 11/20/16 20:30 12/20/16 20:29 11/21/16 20:49 50 MG Enoxaparin Sodium (Lovenox Inj) 40 mg QAM SQ 11/21/16 09:00 12/21/16 08:59 11/21/16 08:31 40 MG Acetaminophen (Tylenol Tab) 500 mg Q6H PRN PO 11/21/16 16:15 12/21/16 16:14 11/21/16 16:51 500 MG
[2016-11-22] VITALS (12 sets, daily range): BP systolic 124–141; BP diastolic 57–68; PULSE 65–79; TEMP 36.6–37.3; O2SAT 91–97
[2016-11-22] MEDS: IPRATROPIUM BROMIDE NEB SOLN 0.02% 2.5 ML VIAL INH SCH ×4 (02:17→19:21)
[2016-11-22] MEDS: LEVALBUTEROL 1.25MG/0.5ML NEB INH SCH ×4 (02:17→19:21)
[2016-11-22] MEDS: LEVOTHYROXINE 100 MCG TAB PO SCH (05:59)
[2016-11-22 06:24] LABS: BASO % 0.2 %; BASO ABS # 0.02 K/uL (0-0.2); COMPLETE YES; HEMATOCRIT 37.6 % (37-47); LYMPH % 27.2 %; LYMPH ABS # 2.24 K/uL (1.2-3.4); MEAN CELL VOLUME 78.7 fL (80-100); MEAN CORPUSCULAR HEMOGLOBIN 24.5 pg (25-34); MEAN CORPUSCULAR HGB CONC 31.1 g/dl (32-36); MEAN PLATELET VOLUME 11.3 fL (7.4-10.4); MONO % 10.3 %; NEUT % 57.3 %; PLATELET COUNT 142 K/uL (130-400); RED BLOOD COUNT 4.78 M/uL (4.2-5.4); WHITE BLOOD COUNT 8.25 K/uL (4.8-10.8)
[2016-11-22 06:59] LABS: BUN/CREATININE RATIO 23.8 (10-20); CREATININE 0.51 mg/dl (0.60-1.20)
[2016-11-22 07:00] LABS: CALCIUM 8.4 mg/dl (8.5-10.1); POTASSIUM 3.6 mmol/L (3.5-5.1)
[2016-11-22] MEDS: INSULIN ASPART 100 UNITS/ML 3 ML PEN SC SCH ×4 (07:40→21:00)
[2016-11-22] MEDS: INSULIN HUMAN NPH SC SCH ×3 (07:41→17:32)
[2016-11-22] MEDS: PREGABALIN 100 MG CAP PO SCH ×3 (08:53→21:03)
[2016-11-22] MEDS: PANTOprazole SOD 40 MG TAB PO SCH (08:54)
[2016-11-22] MEDS: DULOXETINE (CYMBALTA) 30 MG CAP PO SCH ×2 (08:54→21:03)
[2016-11-22] MEDS: ASPIRIN 81 MG ECTAB PO SCH (08:54)
[2016-11-22] MEDS: TIOTROPIUM BROMIDE 5 PUFF/90 MCG INH INH SCH (08:55)
[2016-11-22] MEDS: URSODIOL 300 MG CAP PO SCH ×2 (08:56→21:03)
[2016-11-22 09:28] LABS: ARTERIAL BLD GAS O2 SATURATION 92.9 % (90-95); ARTERIAL BLOOD GAS HCO3 33 mmol/L (19-24); ARTERIAL BLOOD GAS PO2 71 mm/Hg (80-95); ARTERIAL BLOOD GAS pH 7.46 (7.35-7.45)
[2016-11-22 09:30] LABS: ALLEN TEST POS (POS); O2 ADMINISTRATION 2L
[2016-11-22] MEDS: ERTAPENEM IV 1 GM in SODIUM CHLOR 0.9% AD-VAN 50ML IV SCH (09:35)
[2016-11-22] MEDS: ENOXAPARIN 40 MG/0.4 ML SYR SQ SCH (09:38)
[2016-11-22] MEDS: ACETAMINOPHEN 500 MG TAB PO PRN (10:31)
--- NOTE | 2016-11-22 11:38 | Pharmacy Progress Note ---
Glycemic Control Progress Note Date of Service Nov 22, 2016. Scope Glycemic Pharmacist consulted for glycemic control to write orders per [facility] inpatient glycemic control protocol. Objective Accuchecks BSG (last 24hrs): Test 11/21/16 16:12 11/21/16 20:12 11/22/16 05:56 11/22/16 06:25 Bedside Glucose 188 mg/dl (70-90) 188 mg/dl (70-90) 173 mg/dl (70-90) Random Glucose 159 mg/dl (70-99) Test 11/22/16 11:07 Bedside Glucose 225 mg/dl (70-90) HbA1c: Test 11/20/16 05:27 Hemoglobin A1c 7.1 % (4.5-5.6) H Recent Pertinent Medications The patient is currently receiving: * Basal insulin: NPH 30 units TID with meals * Correctional Insulin: Novolog Correction per scale ACHS Goal Range: Low 120 mg/dL - High 160 mg/dL Correction Factor: 15 mg/dL/unit * Prandial insulin: Per carb ratio of 1 unit per 4 grams CHO consumed Outpatient Anti-Diabetic Meds Oral Agents Basal Insulin Assessment & Plan ASSESSMENT: * See previous progress notes formore background info, in short: * Pt receiving SQ basal bolus insulin regimen for hyperglycemia secondary to baseline DM (outpatient regimen on hold),stress/infection, * Patient is currently receiving an average of 130 units of insulin per day * 90 units of basal insulin * 40 units of prandial/correctional insulin * BSGs ranging 173 - 225 mg/dl over the past 24hrs * Changes needed to insulin regimen: * AM Fasting BSG = 133, 144, 173 mg/dl. These are near goal range, however they are trending upwards over the past 3 days. Current basal insulin dosing is less than outpatient dosing but outpatient dosing covers both basal & prandial needs. Current inpatient regimen is weighted towards basal insulin, therefore, hesitant to increase dosing further. If BSG continues to trend upwards tomorrow will increase NPH. * Post-prandial BSGs are elevated/BSGs rise throughout the day therefore need to tighten CF/CR * Total daily dose = 130 units and weighted towards NPH. May need to evenly re -distribute regimen 50%:50% basal:prandial to prevent hypo/hyperglycemia PLAN FOR INPATIENT GLYCEMIC CONTROL: * Oral Agents * Continue to hold outpatient oral diabetes medications. * Basal insulin: no change * NPH 30 units SQ TIDM * Bolus insulin: tighten parameters and lower goal range * NovoLog per scale ACHS or Q6hrs while NPO * Goal Range: Low 110 mg/dL - High 150 mg/dL * Correction Factor: 10 mg/dL/unit * Nutritional / Prandial insulin per carb ratio of 1 unit per 3 grams CHO consumed * Please note that the plan above was derived based on current level of insulin resistance and hospital stress. These recommendations are appropriate for inpatient admission only. Plan of care upon discharge will need to be reassessed to avoid potential outpatient hypo/hyperglycemia. Thank you.
--- NOTE | 2016-11-22 14:30 | Pulmonology Progress Note ---
Pulmonary Progress Note Date of Service Nov 22, 2016. Attending Dr. Ferrell Subjective Patient seen and examined. She states that she did have one episode of productive sputum last night that was yellowish-green in color. She has no respiratory complaints at the current time. Tolerated BIPAP well overnight brought her BIPAP from home Objective VS reviewed. Tm 37.3, BP 124/60-141/64, P 65-79, SaO2 94-96%, currently on 2L Gen: AAOx3, NAD, speaking in full sentences without use of accessory muscles CVS: S1, S2, RRR Lungs: Diminished breath sound bilaterally Abd: obese/NT/NT/BS+ Ext: trace edema, no cyanosis, no clubbing Labs reviewed. ABG 7.46/47/71/33/92.9% on 2L NC Sputum culture 11/22/2016--pending Blood culture 11/20/2015--no growth to date Imaging viewed and reviewed by me. Medications reviewed. Assessment & Plan Acute on chronic hypoxic hypercapnic respiratory failure Metabolic encephalopathy JOSE Obesity hypoventilation syndrome Atelectasis Patient appears to have had acute on chronic hypercarbic respiratory failure with metabolic encephalopathy that has resolved. She was placed on BIPAP with improvement of her symptoms. PCO2 improved from 73now down 47 on repeat ABG today. Compliance on CPAP is questionable which may have precipitated this event. Awaiting results for CPAP machine to evaluate use. Continue with supplemental oxygen. Be careful not to over oxygenate her as this can precipitate hypercarbia. In the meantime, I would continue atrovent/xopenx nebulizer q6h, continue with Spiriva 1 puff in daily, continue with singulair 10 mg qHS. She continues on Ertapenem Day #4 for possible left lower lobe opacity which is being treated as an pneumonia. Due her body habitus this could also be atelectasis. So I would continue with incentive spirometry. She did have have productive sputum with yellowish-green sputum last evening that was sent for grams stain and culture. I would continue with antibiotics until culture sputum cultures return. I encouraged weight loss, but this is difficult as patient is immobile and depends on and caregiver for most activities of daily of living. I will sign off case at this time. Please contact me if you have any other questions or concerns. Data Medications: Current Inpatient Medications Medications (Trade) Dose Ordered Sig/Keith Route Start Time Stop Time Status Last Admin Dose Admin Miscellaneous Information 1 ea UD PRN N/A 11/19/16 13:13 12/19/16 13:12 Glucose (Glucose 40% Gel) 15-30 GRAMS 15 GRAMS... UD PRN PO 11/19/16 13:00 12/19/16 12:59 Glucose (Glucose Chew Tab) 4-8 Tablets 4 Tabl... UD PRN PO 11/19/16 13:00 12/19/16 12:59 Dextrose (Dextrose 50% 50ML Syringe) 25-50ML OF 50% DW IV FOR... UD PRN IV 11/19/16 13:00 12/19/16 12:59 Glucagon (Glucagon Inj) 1 mg UD PRN SQ 11/19/16 13:00 12/19/16 12:59 Miscellaneous Information (Consult Glycemic Management Pharmacy) 1 ea UD PRN N/A 11/19/16 13:14 12/19/16 13:13 Aspirin (Ecotrin Tab) 81 mg DAILY PO 11/20/16 09:00 12/20/16 08:59 11/22/16 08:54 81 MG Celecoxib (CeleBREX CAP) 200 mg DAILY PRN PO 11/19/16 13:15 12/19/16 13:14 11/21/16 07:36 200 MG Duloxetine HCl (Cymbalta Cap) 30 mg BID PO 11/19/16 21:00 12/19/16 20:59 11/22/16 08:54 30 MG Levothyroxine Sodium (Synthroid Tab) 100 mcg DAILYBB PO 11/20/16 06:00 12/20/16 05:59 11/22/16 05:59 100 MCG Miconazole Nitrate (Desenex Powder) 1 appln BID PRN EXT 11/19/16 13:15 12/19/16 13:14 Montelukast Sodium (Singulair Tab) 10 mg HS PO 11/19/16 21:00 12/19/16 20:59 11/21/16 20:49 10 MG Nystatin (Mycostatin Crm) 1 appln BID PRN EXT 11/19/16 13:15 12/19/16 13:14 Pantoprazole Sodium (Protonix Tab) 40 mg QAM PO 11/20/16 09:00 12/20/16 08:59 11/22/16 08:54 40 MG Pregabalin (Lyrica Cap) 200 mg TID PO 11/19/16 14:00 12/19/16 13:59 11/22/16 08:53 200 MG Tiotropium [place] (Spiriva Handihaler Inhaler) 1 puff QAM INH 11/20/16 09:00 12/20/16 08:59 11/22/16 08:55 1 PUFF Ursodiol (Actigall Cap) 600 mg BID PO 11/19/16 21:00 12/19/16 20:59 11/22/16 08:56 600 MG Lactobacillus Acidophilus (Floranex Tab) 1 tab HS PO 11/19/16 21:00 12/19/16 20:59 11/21/16 20:49 1 TAB Atenolol (Tenormin Tab) 25 mg DAILY PO 11/20/16 09:00 12/20/16 08:59 11/22/16 08:55 25 MG Ipratropium [place] (Atrovent 0.02% 0.5MG/2.5ML Neb) 0.5 mg Q6R INH 11/19/16 15:00 12/19/16 14:59 11/22/16 07:10 0.5 MG Levalbuterol (Xopenex 1.25MG/ 0.5ML Neb) 1.25 mg Q6R INH 11/19/16 15:00 12/19/16 14:59 11/22/16 07:10 1.25 MG Ertapenem 1 gm/ Sodium Chloride 50 ml @ 100 mls/hr Q24H IV 11/20/16 10:00 11/29/16 09:59 11/22/16 09:35 100 MLS/HR Insulin Human NPH (novoLIN-N NPH) 30 units TIDM SC 11/19/16 16:45 12/19/16 16:44 11/22/16 12:35 30 UNITS Insulin Aspart (novoLOG ASPART) SLIDING SCALE If C... ACHS SC 11/19/16 16:45 12/19/16 16:44 11/22/16 12:34 29 UNITS Trazodone HCl (Desyrel Tab) 50 mg HS PRN PO 11/20/16 20:30 12/20/16 20:29 11/21/16 20:49 50 MG Enoxaparin Sodium (Lovenox Inj) 40 mg QAM SQ 11/21/16 09:00 12/21/16 08:59 11/22/16 09:38 40 MG Acetaminophen (Tylenol Tab) 500 mg Q6H PRN PO 11/21/16 16:15 12/21/16 16:14 11/22/16 10:31 500 MG I & O: 24-Hour Column 11/23/16 07:59 Intake Total 360 ml Output Total 300 ml Balance 60 ml Vital Signs: Date Time Temp Pulse Resp B/P (MAP) Pulse Ox O2 Delivery O2 Flow Rate FiO2 11/22/16 12:00 Nasal Cannula 2.0 11/22/16 11:07 36.7 65 24 131/62 (85) 94 Nasal Cannula 2.0 11/22/16 08:21 94 Nasal Cannula 4.0 11/22/16 08:00 Nasal Cannula 2.0 11/22/16 07:45 36.8 79 23 141/64 (89) 94 Nasal Cannula 4.0 11/22/16 07:10 65 20 96 Nasal Cannula 2.0 11/22/16 04:11 36.8 65 22 132/68 (89) 96 BiPAP 4.5 11/22/16 04:00 CPAP 4.0 11/22/16 00:09 37.3 67 23 124/60 (81) 96 BiPAP 4.5 11/22/16 00:02 CPAP 4.0 11/21/16 20:00 Nasal Cannula 2.0 11/21/16 19:45 36.8 71 18 134/58 (83) 93 Nasal Cannula 2.0 11/21/16 19:13 68 20 94 Nasal Cannula 2.0 11/21/16 16:29 36.6 71 22 128/74 (92) 91 Nasal Cannula 2.0 11/21/16 16:00 Nasal Cannula 2.0 Laboratory Results: Last 24 Hours Test 11/21/16 16:12 11/21/16 20:12 11/22/16 05:56 11/22/16 06:25 Bedside Glucose 188 mg/dl 188 mg/dl 173 mg/dl White Blood Count 8.25 K/uL Red Blood Count 4.78 M/uL Hemoglobin 11.7 g/dL Hematocrit 37.6 % Mean Corpuscular Volume 78.7 fL Mean Corpuscular Hemoglobin 24.5 pg Mean Corpuscular Hemoglobin Concent 31.1 g/dl Platelet Count 142 K/uL Mean Platelet Volume 11.3 fL Neutrophils (%) (Auto) 57.3 % Lymphocytes (%) (Auto) 27.2 % Monocytes (%) (Auto) 10.3 % Eosinophils (%) (Auto) 4.0 % Basophils (%) (Auto) 0.2 % Neutrophils # (Auto) 4.73 K/uL Lymphocytes # (Auto) 2.24 K/uL Monocytes # (Auto) 0.85 K/uL Eosinophils # (Auto) 0.33 K/uL Basophils # (Auto) 0.02 K/uL RDW Standard Deviation 49.3 fL RDW Coefficient of Variation 17.4 % Immature Granulocyte % (Auto) 1.0 % Immature Granulocyte # (Auto) 0.08 K/uL Sodium Level 144 mmol/L Potassium Level 3.6 mmol/L Chloride Level 104 mmol/L Carbon Dioxide Level 33 mmol/L Anion Gap 7.0 mmol/L Blood Urea Nitrogen 12 mg/dl Creatinine 0.51 mg/dl Est Creatinine Clear Calc Drug Dose 175.0 ml/min Estimated GFR () 116.1 Estimated GFR (Non- 100.2 BUN/Creatinine Ratio 23.8 Random Glucose 159 mg/dl Calcium Level 8.4 mg/dl Test 11/22/16 09:15 11/22/16 11:07 Arterial Blood pH 7.46 Arterial Blood Partial Pressure CO2 47 mmHg Arterial Blood Partial Pressure O2 71 mm/Hg Arterial Blood HCO3 33 mmol/L Arterial Blood Oxygen Saturation 92.9 % Arterial Blood Base Excess 8.0 mEq/L Arterial Blood Gas Delivery 2L Bill Test POS Bedside Glucose 225 mg/dl
[2016-11-22] MEDS ORDERED: CETIRIZINE HCL 10 MG TAB PO ONE (17:15)
--- NOTE | 2016-11-22 19:49 | Progress Note ---
Medicine Progress Note Date & Time of Visit: Nov 22, 2016 at 19:46. Subjective seen resting in bed, in good spirits slept well denies dyspnea, has occasional cough with white sputum denies other symptoms Objective Last 8 Hrs Date Time Temp Pulse Resp B/P (MAP) Pulse Ox O2 Delivery O2 Flow Rate FiO2 11/22/16 19:24 67 18 97 Nasal Cannula 2.0 11/22/16 16:41 36.6 73 20 129/67 (87) 92 Nasal Cannula 2.0 11/22/16 16:00 Nasal Cannula 2.0 11/22/16 14:12 68 20 92 Nasal Cannula 2.0 11/22/16 12:00 Nasal Cannula 2.0 Physical Exam: General- oriented x 3, not in distress, speaks in sentences with no effort Eyes- anicteric Neck- no JVD Lungs- clear breath sounds bilaterally, no wheezing, no rales Heart- regular rhythm; no murmur, normal rate Abdomen- normal bowel sounds, soft, nontender Extremities- no pretibial edema, no calf tenderness Neuro- alert, oriented x 3; no gross focal deficits Skin- warm & dry Laboratory Results: Last 24 Hours Test 11/21/16 20:12 11/22/16 05:56 11/22/16 06:25 11/22/16 09:15 Bedside Glucose 188 mg/dl 173 mg/dl White Blood Count 8.25 K/uL Red Blood Count 4.78 M/uL Hemoglobin 11.7 g/dL Hematocrit 37.6 % Mean Corpuscular Volume 78.7 fL Mean Corpuscular Hemoglobin 24.5 pg Mean Corpuscular Hemoglobin Concent 31.1 g/dl Platelet Count 142 K/uL Mean Platelet Volume 11.3 fL Neutrophils (%) (Auto) 57.3 % Lymphocytes (%) (Auto) 27.2 % Monocytes (%) (Auto) 10.3 % Eosinophils (%) (Auto) 4.0 % Basophils (%) (Auto) 0.2 % Neutrophils # (Auto) 4.73 K/uL Lymphocytes # (Auto) 2.24 K/uL Monocytes # (Auto) 0.85 K/uL Eosinophils # (Auto) 0.33 K/uL Basophils # (Auto) 0.02 K/uL RDW Standard Deviation 49.3 fL RDW Coefficient of Variation 17.4 % Immature Granulocyte % (Auto) 1.0 % Immature Granulocyte # (Auto) 0.08 K/uL Sodium Level 144 mmol/L Potassium Level 3.6 mmol/L Chloride Level 104 mmol/L Carbon Dioxide Level 33 mmol/L Anion Gap 7.0 mmol/L Blood Urea Nitrogen 12 mg/dl Creatinine 0.51 mg/dl Est Creatinine Clear Calc Drug Dose 175.0 ml/min Estimated GFR () 116.1 Estimated GFR (Non- 100.2 BUN/Creatinine Ratio 23.8 Random Glucose 159 mg/dl Calcium Level 8.4 mg/dl Arterial Blood pH 7.46 Arterial Blood Partial Pressure CO2 47 mmHg Arterial Blood Partial Pressure O2 71 mm/Hg Arterial Blood HCO3 33 mmol/L Arterial Blood Oxygen Saturation 92.9 % Arterial Blood Base Excess 8.0 mEq/L Arterial Blood Gas Delivery 2L Bill Test POS Test 11/22/16 11:07 Bedside Glucose 225 mg/dl Date/Time Source Procedure Growth Status 11/22/16 10:40 Nasal MRSA DNA Surveillance Screen - Final Specimen Negative for MRSA by DNA Probe Complete 11/22/16 02:00 Sputum Expectorated Sputum Gram Stain - Final Resulted 11/22/16 02:00 Sputum Expectorated Sputum Sputum Culture Pending Resulted Assessment & Plan 65 year old female with history of Recurrent UTIs, Chronic Respiratory Failure on 4 liters home Oxygen, Obesity Hypoventilation Syndrome, Asthma, DM 2, HTN, Morbid Obesity, Chronic Pain, Depression, presenting with confusion and weakness. HYPERCAPNEIC RESPIRATORY FAILURE POSSIBLE LEFT SIDED PNEUMONIA - Bipap ordered , tolerated well, now only at HS patient remains alert, oriented - cultures negative so far - empiric Ertapenem IV Day 4 Nebs q6h Bipap at HS - ff up sputum cultures - Pulm consulted, appreciate the input ALTERED MENTAL STATUS - from Hypercapnea, management noted above - check ammonia: 39 but patient now back to baseline even without treatment negative cultures so far DM 2 ISS for now Pharmacy consulted HTN on Metoprolol MORBID OBESITY CHRONIC PAIN hold pain meds until mental status improves ASTHMA does not seem to be in exacerbation DVT prophylaxis Lovenox SCDs FULL CODE DISPOSITION possible d/c home in AM when sputum cultures finalizes, cleared by Pulm needs [facility] Current Inpatient Medications: Current Inpatient Medications Medications (Trade) Dose Ordered Sig/Keith Route Start Time Stop Time Status Last Admin Dose Admin Miscellaneous Information 1 ea UD PRN N/A 11/19/16 13:13 12/19/16 13:12 Glucose (Glucose 40% Gel) 15-30 GRAMS 15 GRAMS... UD PRN PO 11/19/16 13:00 12/19/16 12:59 Glucose (Glucose Chew Tab) 4-8 Tablets 4 Tabl... UD PRN PO 11/19/16 13:00 12/19/16 12:59 Dextrose (Dextrose 50% 50ML Syringe) 25-50ML OF 50% DW IV FOR... UD PRN IV 11/19/16 13:00 12/19/16 12:59 Glucagon (Glucagon Inj) 1 mg UD PRN SQ 11/19/16 13:00 12/19/16 12:59 Miscellaneous Information (Consult Glycemic Management Pharmacy) 1 ea UD PRN N/A 11/19/16 13:14 12/19/16 13:13 Aspirin (Ecotrin Tab) 81 mg DAILY PO 11/20/16 09:00 12/20/16 08:59 11/22/16 08:54 81 MG Celecoxib (CeleBREX CAP) 200 mg DAILY PRN PO 11/19/16 13:15 12/19/16 13:14 11/21/16 07:36 200 MG Duloxetine HCl (Cymbalta Cap) 30 mg BID PO 11/19/16 21:00 12/19/16 20:59 11/22/16 08:54 30 MG Levothyroxine Sodium (Synthroid Tab) 100 mcg DAILYBB PO 11/20/16 06:00 12/20/16 05:59 11/22/16 05:59 100 MCG Miconazole Nitrate (Desenex Powder) 1 appln BID PRN EXT 11/19/16 13:15 12/19/16 13:14 Montelukast Sodium (Singulair Tab) 10 mg HS PO 11/19/16 21:00 12/19/16 20:59 11/21/16 20:49 10 MG Nystatin (Mycostatin Crm) 1 appln BID PRN EXT 11/19/16 13:15 12/19/16 13:14 Pantoprazole Sodium (Protonix Tab) 40 mg QAM PO 11/20/16 09:00 12/20/16 08:59 11/22/16 08:54 40 MG Pregabalin (Lyrica Cap) 200 mg TID PO 11/19/16 14:00 12/19/16 13:59 11/22/16 14:41 200 MG Tiotropium [place] (Spiriva Handihaler Inhaler) 1 puff QAM INH 11/20/16 09:00 12/20/16 08:59 11/22/16 08:55 1 PUFF Ursodiol (Actigall Cap) 600 mg BID PO 11/19/16 21:00 12/19/16 20:59 11/22/16 08:56 600 MG Lactobacillus Acidophilus (Floranex Tab) 1 tab HS PO 11/19/16 21:00 12/19/16 20:59 11/21/16 20:49 1 TAB Atenolol (Tenormin Tab) 25 mg DAILY PO 11/20/16 09:00 12/20/16 08:59 11/22/16 08:55 25 MG Ipratropium [place] (Atrovent 0.02% 0.5MG/2.5ML Neb) 0.5 mg Q6R INH 11/19/16 15:00 12/19/16 14:59 11/22/16 19:21 0.5 MG Levalbuterol (Xopenex 1.25MG/ 0.5ML Neb) 1.25 mg Q6R INH 11/19/16 15:00 12/19/16 14:59 11/22/16 19:21 1.25 MG Ertapenem 1 gm/ Sodium Chloride 50 ml @ 100 mls/hr Q24H IV 11/20/16 10:00 11/29/16 09:59 11/22/16 09:35 100 MLS/HR Insulin Human NPH (novoLIN-N NPH) 30 units TIDM SC 11/19/16 16:45 12/19/16 16:44 11/22/16 17:32 30 UNITS Insulin Aspart (novoLOG ASPART) SLIDING SCALE If C... ACHS SC 11/19/16 16:45 12/19/16 16:44 11/22/16 17:32 19 UNITS Trazodone HCl (Desyrel Tab) 50 mg HS PRN PO 11/20/16 20:30 12/20/16 20:29 11/21/16 20:49 50 MG Enoxaparin Sodium (Lovenox Inj) 40 mg QAM SQ 11/21/16 09:00 12/21/16 08:59 11/22/16 09:38 40 MG Acetaminophen (Tylenol Tab) 500 mg Q6H PRN PO 11/21/16 16:15 12/21/16 16:14 11/22/16 10:31 500 MG Insulin Aspart (novoLOG ASPART) SLIDING SCALE If C... TODAY@0000,0400 MA 11/23/16 00:00 11/23/16 04:01
[2016-11-22] MEDS: MONTELUKAST SOD 10 MG TAB PO SCH (21:04)
[2016-11-22] MEDS: LACTOBACILLUS ACIDOPHILUS (FLORANEX) TAB PO SCH (21:04)
[2016-11-22] MEDS: TRAZODONE HCL 50 MG TAB PO PRN (21:04)
[2016-11-23] VITALS (12 sets, daily range): BP systolic 114–130; BP diastolic 55–70; PULSE 61–73; TEMP 36.6–37.1; O2SAT 92–98
[2016-11-23] MEDS: IPRATROPIUM BROMIDE NEB SOLN 0.02% 2.5 ML VIAL INH SCH ×4 (01:42→20:43)
[2016-11-23] MEDS: LEVALBUTEROL 1.25MG/0.5ML NEB INH SCH ×4 (01:42→20:43)
[2016-11-23] MEDS: INSULIN ASPART 100 UNITS/ML 3 ML PEN SC SCH ×6 (04:00→21:00)
[2016-11-23] MEDS: LEVOTHYROXINE 100 MCG TAB PO SCH (06:14)
[2016-11-23 07:06] LABS: BASO % 0.3 %; BASO ABS # 0.02 K/uL (0-0.2); COMPLETE YES; EOS % 4.5 %; HEMATOCRIT 38.5 % (37-47); IG% 0.6 %; LYMPH % 21.2 %; LYMPH ABS # 1.66 K/uL (1.2-3.4); MEAN CELL VOLUME 78.4 fL (80-100); MEAN CORPUSCULAR HEMOGLOBIN 23.6 pg (25-34); MEAN CORPUSCULAR HGB CONC 30.1 g/dl (32-36); MEAN PLATELET VOLUME 10.4 fL (7.4-10.4); MONO % 9.1 %; NEUT % 64.3 %; PLATELET COUNT 140 K/uL (130-400); RED BLOOD COUNT 4.91 M/uL (4.2-5.4); WHITE BLOOD COUNT 7.82 K/uL (4.8-10.8)
[2016-11-23 07:54] LABS: BUN/CREATININE RATIO 24.3 (10-20); CALCIUM 8.2 mg/dl (8.5-10.1); CREATININE 0.46 mg/dl (0.60-1.20); POTASSIUM 3.5 mmol/L (3.5-5.1)
[2016-11-23] MEDS: INSULIN HUMAN NPH SC SCH ×3 (09:34→17:17)
[2016-11-23] MEDS: TIOTROPIUM BROMIDE 5 PUFF/90 MCG INH INH SCH (09:37)
[2016-11-23] MEDS: ASPIRIN 81 MG ECTAB PO SCH (09:38)
[2016-11-23] MEDS: DULOXETINE (CYMBALTA) 30 MG CAP PO SCH ×2 (09:38→20:13)
[2016-11-23] MEDS: ERTAPENEM IV 1 GM in SODIUM CHLOR 0.9% AD-VAN 50ML IV SCH (09:38)
[2016-11-23] MEDS: PANTOprazole SOD 40 MG TAB PO SCH (09:38)
[2016-11-23] MEDS: ENOXAPARIN 40 MG/0.4 ML SYR SQ SCH (09:38)
[2016-11-23] MEDS: URSODIOL 300 MG CAP PO SCH ×2 (09:39→20:14)
[2016-11-23] MEDS: PREGABALIN 100 MG CAP PO SCH ×3 (09:42→20:16)
--- NOTE | 2016-11-23 10:13 | Pharmacy Progress Note ---
Glycemic Control Progress Note Date of Service Nov 23, 2016. Scope Glycemic Pharmacist consulted for glycemic control to write orders per [facility] inpatient glycemic control protocol. Objective Accuchecks BSG (last 24hrs): Test 11/22/16 11:07 11/22/16 16:15 11/22/16 20:21 11/23/16 00:17 Bedside Glucose 225 mg/dl (70-90) 165 mg/dl (70-90) 104 mg/dl (70-90) 88 mg/dl (70-90) Test 11/23/16 04:18 11/23/16 04:38 11/23/16 06:15 Bedside Glucose 92 mg/dl (70-90) 103 mg/dl (70-90) Random Glucose 99 mg/dl (70-99) HbA1c: Test 11/20/16 05:27 Hemoglobin A1c 7.1 % (4.5-5.6) H Recent Pertinent Medications The patient is currently receiving: * Basal insulin: NPH 30 units TID with meals * Correctional Insulin: Novolog Correction per scale ACHS Goal Range: Low 120 mg/dL - High 150 mg/dL Correction Factor: 10 mg/dL/unit * Prandial insulin: Per carb ratio of 1 unit per 3 grams CHO consumed Assessment & Plan ASSESSMENT: * See previous progress notes for more background info, in short: * Pt receiving SQ basal bolus insulin regimen for hyperglycemia secondary to baseline DM (outpatient regimen on hold),stress/infection * Patient is currently receiving an average of 140 units of insulin per day * 90 units of basal insulin * 50 units of prandial/correctional insulin * BSGs ranging 88 - 225 mg/dl over the past 24hrs * Changes needed to insulin regimen: * AM Fasting BSG = 133, 144, 173, 99 mg/dl today. These are near goal range, however starting to trend downwards. Will decrease basal insulin slightly. Current basal insulin dosing is much lower than outpatient dosing. Outpatient NPH dosing most likely covers both basal and prandial needs. * Post-prandial BSGs are in range, no changes needed to CF/CR * Total daily dose = 140 units and weighted towards NPH. May need to evenly re -distribute regimen 50%:50% basal:prandial to prevent hypo/hyperglycemia PLAN FOR INPATIENT GLYCEMIC CONTROL: * Oral Agents * Continue to hold outpatient oral diabetes medications. * Basal insulin: decrease dose slightly * NPH 27 units SQ TIDM * Bolus insulin: no changes today * NovoLog per scale ACHS or Q6hrs while NPO * Goal Range: Low 110 mg/dL - High 150 mg/dL * Correction Factor: 10 mg/dL/unit * Nutritional / Prandial insulin per carb ratio of 1 unit per 3 grams CHO consumed * Please note that the plan above was derived based on current level of insulin resistance and hospital stress. These recommendations are appropriate for inpatient admission only. Plan of care upon discharge will need to be reassessed to avoid potential outpatient hypo/hyperglycemia. Thank you.
--- NOTE | 2016-11-23 12:15 | Progress Note ---
Medicine Progress Note Date & Time of Visit: Nov 23, 2016 at 12:05. Subjective patient seen resting in bed, comfortable at bedside in good spirits states she was able to sleep well, used CPAP denies dyspnea, cough, sputum, chest pain no other symptoms Objective Last 8 Hrs Date Time Temp Pulse Resp B/P (MAP) Pulse Ox O2 Delivery O2 Flow Rate FiO2 11/23/16 08:00 Nasal Cannula 2.0 11/23/16 07:46 36.6 67 20 114/60 (78) 98 11/23/16 07:00 73 18 94 Nasal Cannula 2.0 11/23/16 04:36 36.9 61 15 130/62 (84) 94 BiPAP 4.0 Physical Exam: General- oriented x 3, not in distress, speaks in sentences with no effort Eyes- anicteric Neck- no JVD Lungs- clear breath sounds bilaterally, no rales/wheezing Heart- regular rhythm; no murmur, normal rate Abdomen- normal bowel sounds, soft, nontender Extremities- no pretibial edema, no calf tenderness Neuro- alert, oriented x 3; no gross focal deficits Skin- warm & dry Laboratory Results: Last 24 Hours Test 11/22/16 16:15 11/22/16 20:21 11/23/16 00:17 11/23/16 04:18 Bedside Glucose 165 mg/dl 104 mg/dl 88 mg/dl 92 mg/dl Test 11/23/16 04:38 11/23/16 06:15 11/23/16 06:33 11/23/16 11:17 Bedside Glucose 103 mg/dl 101 mg/dl 161 mg/dl White Blood Count 7.82 K/uL Red Blood Count 4.91 M/uL Hemoglobin 11.6 g/dL Hematocrit 38.5 % Mean Corpuscular Volume 78.4 fL Mean Corpuscular Hemoglobin 23.6 pg Mean Corpuscular Hemoglobin Concent 30.1 g/dl Platelet Count 140 K/uL Mean Platelet Volume 10.4 fL Neutrophils (%) (Auto) 64.3 % Lymphocytes (%) (Auto) 21.2 % Monocytes (%) (Auto) 9.1 % Eosinophils (%) (Auto) 4.5 % Basophils (%) (Auto) 0.3 % Neutrophils # (Auto) 5.03 K/uL Lymphocytes # (Auto) 1.66 K/uL Monocytes # (Auto) 0.71 K/uL Eosinophils # (Auto) 0.35 K/uL Basophils # (Auto) 0.02 K/uL RDW Standard Deviation 49.8 fL RDW Coefficient of Variation 17.7 % Immature Granulocyte % (Auto) 0.6 % Immature Granulocyte # (Auto) 0.05 K/uL Sodium Level 144 mmol/L Potassium Level 3.5 mmol/L Chloride Level 105 mmol/L Carbon Dioxide Level 31 mmol/L Anion Gap 8.0 mmol/L Blood Urea Nitrogen 11 mg/dl Creatinine 0.46 mg/dl Est Creatinine Clear Calc Drug Dose 193.6 ml/min Estimated GFR () 120.1 Estimated GFR (Non- 103.7 BUN/Creatinine Ratio 24.3 Random Glucose 99 mg/dl Calcium Level 8.2 mg/dl Assessment & Plan 65 year old female with history of Recurrent UTIs, Chronic Respiratory Failure on 4 liters home Oxygen, Obesity Hypoventilation Syndrome, Asthma, DM 2, HTN, Morbid Obesity, Chronic Pain, Depression, presenting with confusion and weakness. HYPERCAPNEIC RESPIRATORY FAILURE - Bipap ordered , tolerated well with regular Bipap use, patient remained alert, oriented - blood and sputum cultures negative so far CXR possible left lower lobe atelectasis vs. pneumonia given empiric Ertapenem x 5 days, discontinued as patient was afebrile, sputum cultures negative - Pulmonary Dr. Bennett/Dr. Ferrell consulted - transitioned to CPAP encouraged to use consistently, avoid benzodiazepenes cleared for d/c home, ff up with PCP in 3-5 days ALTERED MENTAL STATUS - from Hypercapnea, management noted above - checked ammonia: 39 but patient now back to baseline even without treatment negative blood, urine, sputum cultures - resolved DM 2 resume usual regimen HTN on Metoprolol MORBID OBESITY CHRONIC PAIN resume usual medications stable ASTHMA was not in exacerbation DVT prophylaxis Lovenox SCDs FULL CODE DISPOSITION d/c home with home health services ff up with PCP in 3-[address] Owens Current Inpatient Medications: Current Inpatient Medications Medications (Trade) Dose Ordered Sig/Keith Route Start Time Stop Time Status Last Admin Dose Admin Miscellaneous Information 1 ea UD PRN N/A 11/19/16 13:13 12/19/16 13:12 Glucose (Glucose 40% Gel) 15-30 GRAMS 15 GRAMS... UD PRN PO 11/19/16 13:00 12/19/16 12:59 Glucose (Glucose Chew Tab) 4-8 Tablets 4 Tabl... UD PRN PO 11/19/16 13:00 12/19/16 12:59 Dextrose (Dextrose 50% 50ML Syringe) 25-50ML OF 50% DW IV FOR... UD PRN IV 11/19/16 13:00 12/19/16 12:59 Glucagon (Glucagon Inj) 1 mg UD PRN SQ 11/19/16 13:00 12/19/16 12:59 Miscellaneous Information (Consult Glycemic Management Pharmacy) 1 ea UD PRN N/A 11/19/16 13:14 12/19/16 13:13 Aspirin (Ecotrin Tab) 81 mg DAILY PO 11/20/16 09:00 12/20/16 08:59 11/23/16 09:38 81 MG Celecoxib (CeleBREX CAP) 200 mg DAILY PRN PO 11/19/16 13:15 12/19/16 13:14 11/21/16 07:36 200 MG Duloxetine HCl (Cymbalta Cap) 30 mg BID PO 11/19/16 21:00 12/19/16 20:59 11/23/16 09:38 30 MG Levothyroxine Sodium (Synthroid Tab) 100 mcg DAILYBB PO 11/20/16 06:00 12/20/16 05:59 11/23/16 06:14 100 MCG Miconazole Nitrate (Desenex Powder) 1 appln BID PRN EXT 11/19/16 13:15 12/19/16 13:14 Montelukast Sodium (Singulair Tab) 10 mg HS PO 11/19/16 21:00 12/19/16 20:59 11/22/16 21:04 10 MG Nystatin (Mycostatin Crm) 1 appln BID PRN EXT 11/19/16 13:15 12/19/16 13:14 Pantoprazole Sodium (Protonix Tab) 40 mg QAM PO 11/20/16 09:00 12/20/16 08:59 11/23/16 09:38 40 MG Pregabalin (Lyrica Cap) 200 mg TID PO 11/19/16 14:00 12/19/16 13:59 11/23/16 09:42 200 MG Tiotropium [place] (Spiriva Handihaler Inhaler) 1 puff QAM INH 11/20/16 09:00 12/20/16 08:59 11/23/16 09:37 1 PUFF Ursodiol (Actigall Cap) 600 mg BID PO 11/19/16 21:00 12/19/16 20:59 11/23/16 09:39 600 MG Lactobacillus Acidophilus (Floranex Tab) 1 tab HS PO 11/19/16 21:00 12/19/16 20:59 11/22/16 21:04 1 TAB Atenolol (Tenormin Tab) 25 mg DAILY PO 11/20/16 09:00 12/20/16 08:59 11/23/16 09:37 25 MG Ipratropium [place] (Atrovent 0.02% 0.5MG/2.5ML Neb) 0.5 mg Q6R INH 11/19/16 15:00 12/19/16 14:59 11/23/16 07:00 0.5 MG Levalbuterol (Xopenex 1.25MG/ 0.5ML Neb) 1.25 mg Q6R INH 11/19/16 15:00 12/19/16 14:59 11/23/16 07:00 1.25 MG Ertapenem 1 gm/ Sodium Chloride 50 ml @ 100 mls/hr Q24H IV 11/20/16 10:00 11/29/16 09:59 11/23/16 09:38 100 MLS/HR Insulin Aspart (novoLOG ASPART) SLIDING SCALE If C... ACHS SC 11/19/16 16:45 12/19/16 16:44 11/23/16 09:33 19 UNITS Trazodone HCl (Desyrel Tab) 50 mg HS PRN PO 11/20/16 20:30 12/20/16 20:29 11/22/16 21:04 50 MG Enoxaparin Sodium (Lovenox Inj) 40 mg QAM SQ 11/21/16 09:00 12/21/16 08:59 11/23/16 09:38 40 MG Acetaminophen (Tylenol Tab) 500 mg Q6H PRN PO 11/21/16 16:15 12/21/16 16:14 11/22/16 10:31 500 MG Insulin Human NPH (novoLIN-N NPH) 27 units TIDM SC 11/23/16 07:30 12/23/16 07:29 11/23/16 09:34 27 UNITS
[2016-11-23] MEDS ORDERED: CELE1CAP30 PO (12:20)
[2016-11-23] MEDS ORDERED: TRMCR515 TOP (12:20)
--- NOTE | 2016-11-23 12:27 | Discharge Instructions ---
Discharge Instructions Date of Service Nov 23, 2016. Admission Reason for Admission: Tered Mental Status Discharge Discharge Diagnosis / Problem: ALTERED MENTAL STATUS Discharge Goals Goal(s): Diagnostic testing, Therapeutic intervention Activity Recommendations Activity Limitations: as noted below (INCREASE ACTIVITY GRADUALYL TOLERATED) . Instructions / Follow-Up Instructions / Follow-Up PLEASE REVIEW YOUR NEW MEDICATION CHANGES AND FOLLOW INSTRUCTIONS CAREFULLY. BACLOFEN AND ATIVAN HAS BEEN DISCONTINUED FOR NOW THESE MAY CONTRIBUTE TO YOUR HIGH CO2 AND DROWSINESS. CALL 911 IF WITH RECURRENCE OF SYMPTOMS. CALL PRIMARY CARE PHYSICIAN OR RETURN TO ER IMMEDIATELY IF WITH INCREASING COUGH, SHORTNESS OF BREATH, SPUTUM, FEVER/CHILLS. FOLLOW UP WITH DR. GALVAN ON TUESDAY NOVEMBER 29, 2016 AT 8:45AM. Current Hospital Diet Patient's current hospital diet: Diabetes Type 2 Diet, AHA Diet (Heart Healthy) Discharge Diet Recommended Diet: AHA Diet (Heart Healthy), Diabetes Type 2 Diet Pending Studies Studies pending at discharge: no Laboratory Results Hemoglobin A1c Test 11/20/16 05:27 Range/Units Estimated Average Glucose 157 mg/dl Hemoglobin A1c 7.1 H 4.5-5.6 % Medical Emergencies . Who to Call and When: Medical Emergencies: If at any time you feel your situation is an emergency, please call 911 immediately. . Non-Emergent Contact Non-Emergency issues call your: Primary Care Provider Call Non-Emergent contact if: you have a fever, your pain is not controlled, your pain is worsening, you have any medication questions . . "Provider Documentation" section prepared by Brad Medrano. . VTE Core Measure Inpt VTE Proph given/why not?: Enoxaparin (Lovenox)SQ
--- NOTE | 2016-11-23 12:33 | Discharge Summary ---
Discharge Summary Date of Service Nov 23, 2016. Discharge Summary Admission Date: Nov 19, 2016 at 11:03 Discharge Date: Nov 23, 2016 Discharge Disposition: Home with services Principal Diagnosis: HYPERCAPNEIC RESPIRATORY FAILURE, Resolved Secondary Diagnoses/Problems: Please refer to hospital course below. Procedures: CHEST ONE VIEW PORTABLE HISTORY: 65 years-old Female fever acute fever with illness. COMPARISON: Chest radiograph 06/24/2016 TECHNIQUE: Portable upright AP view of the chest FINDINGS: Cardiac silhouette is mildly enlarged, unchanged. There is atherosclerosis of the aorta. No pneumothorax identified. Suspected small left pleural effusion persists with hazy left basilar opacity. There is mild pulmonary vascular congestion without overt pulmonary edema. The bones are grossly intact. IMPRESSION: 1. Cardiomegaly and pulmonary vascular congestion without overt pulmonary edema. 2. Small left pleural effusion with subsegmental left basilar opacities suggesting atelectasis or pneumonia. HEAD WITHOUT CONTRAST (CT) CLINICAL HISTORY: 65 years-old Female with ams . Acute altered mental status with weakness and confusion TECHNIQUE: Multiple axial CT images of the head were obtained without contrast. A dose lowering technique was utilized adhering to the principles of ALARA. CT DOSE: 1043.68 mGy.cm COMPARISON: Head CT 05/23/2015. FINDINGS: Study is limited secondary to motion artifact. Repeat study through the posterior fossa was then obtained which is also moderately limited secondary to motion artifact. Within the limitations of the study, no acute intracranial hemorrhage, midline shift, mass, large territorial ischemia or abnormal extra-axial collection. The calvarium is intact. The paranasal sinuses, mastoid air cells, and middle ear cavities are clear. IMPRESSION: Limited study secondary to patient motion. Within the limitations of the study, there is no acute intracranial abnormality identified. Consultations: Pulmonary Dr. Bennett/Dr. Ferrell Pending Studies/Follow-Up: Please refer to hospital course below. Medication Reconciliation Changed Medications: Celecoxib (Celecoxib) 200 Mg Cap 200 MG PO DAILY PRN for Pain for 30 Days (Medication details modified) Continued Medications: Albuterol Hfa (Ventolin Hfa) 200 Puffs/10429 Mcg Aers 2 PUFFS INH QID PRN for SOB/Wheezing INHALE 2 PUFFS 1 MINUTE APART 4 TIMES DAILY IF NEEDED Albuterol Sulf (Proventil 0.083% 2.5MG/3ML) 2.5 Mg/3 Ml Nebu 1 VIAL NEB Q6H PRN for SOB/Wheezing USE IN PLACE OF RESCUE INHALER Aspirin (Aspirin Ec) 81 Mg Tab 81 MG PO DAILY Atenolol (Atenolol) 25 Mg Tab 25 MG PO DAILY Duloxetine HCl (Duloxetine HCl) 30 Mg Cap 30 MG PO BID Furosemide (Furosemide) 40 Mg Tab 40 MG PO prn Home O2 Therapy (Oxygen) Gas 3 LITERS NA DAYTIME USES BIPAP WITH 4 L/MIN HS Insulin Human NPH (Novolin N) 100 Units/Ml Susp 90 UNITS SC TIDM Lactulose (Chronulac) 10 Gm/15 Ml Syrp 15 ML PO DAILY PRN for Severe Constipation Levothyroxine Sodium (Levothyroxine Sodium) 100 Mcg Tab 100 MCG PO QAM Metformin HCl (Metformin HCl ER) 500 Mg Tabcr 500 MG PO BID Miconazole Nitrate (Desenex Shake Powder) 43 Appln/43 Gm Powd 1 APPLN TOP BID PRN for Affected Skin Folds Montelukast Sod (Montelukast Sodium) 10 Mg Tab 10 MG PO HS Nystatin (Nystatin Cream) 90 Appln/30 Gm Cr 1 APPLN TOP BID PRN for Affected Skin Folds, GM APPLY TO AFFECTED AREA(S) DIRECTED Ondansetron Hcl (Zofran) 4 Mg Tab 4 MG PO Q6H PRN for Nausea, TAB Pantoprazole (Pantoprazole Sodium) 40 Mg Tab 40 MG PO QAM TAKE THIS MEDICATION ONCE A DAY 30 MINUTES BEFORE FIRST MEAL OF THE DAY. Polyethylene Glycol 3350 (Miralax) 1 Pow Pow 17 GM PO BID PRN for Constipation, GM Pregabalin (Lyrica) 200 Mg Cap 200 MG PO TID, CAP Probiotic Product (Probiotic) 1 Cap Cap 1 CAP PO HS Silver Sulfadiazine (Silvadene) 1 % Cre 1 APPLN TOP DAILY PRN for SKIN TEAR OR ABRASION, GM Simvastatin (Simvastatin) 20 Mg Tab 20 MG PO HS Sumatriptan Succinate (Imitrex) 100 Mg Tab 100 MG PO UD PRN for Migraine TAKE ONE TABLET AT ONSET OF MIGRAINE, MAY REPEAT AFTER 2 HOURS IF NEEDED. TAKE NO MORE THAN 2 TABLETS IN 24 HOURS. Tiotropium [place] (Spiriva Handihaler) 30 Puff/540 Mcg Aerp 1 PUFF INH QAM Triamcinolone Acet (Triamcinolone Acetonide) 45 Appln/15 Gm Cr 1 APPLN TOP BID PRN for Redness and Itching for 30 Days, GM (This prescription has been renewed) Ursodiol (Ursodiol) 300 Mg Cap 600 MG PO BID TAKE THIS MEDICATION AFTER BREAKFAST AND AFTER EVENING MEAL. Discontinued Medications: Baclofen (Baclofen) 20 Mg Tab 20 MG PO TID Hydroxyzine HCl (Hydroxyzine HCl) 25 Mg Tab 25 MG PO Q6H PRN for Itching Lorazepam (Ativan) 2 Mg Tab 1-2 MG PO BID PRN for Anxiety Lorazepam (Lorazepam) 2 Mg Tab 2 MG PO HS Admission Information HPI (per Admitting provider): 65 year old female with history of Recurrent UTIs, Chronic Respiratory Failure on 4 liters home Oxygen, Obesity Hypoventilation Syndrome, Asthma, DM 2, HTN, Morbid Obesity, Chronic Pain, Depression, presenting with confusion and weakness. Patient was at her usual state of health until 2 days ago when she was noted to be sleeping more. This morning, patient woke up confused and was more drowsy as the day went on. She was then brought to the ED. ABG showed pH 7.21, CO2 902. CXR possible pneumonia Placed on Bipap with gradual improvement. Physical Exam (per Admitting): General Appearance: + obese (drowsy) Head: normocephalic, atraumatic Eyes: normal inspection, sclerae normal ENT: + pertinent finding (bipap mask in place) Neck: supple Respiratory/Chest: lungs clear, normal breath sounds, no respiratory distress, no accessory muscle use Cardiovascular: regular rate, rhythm, no edema, no JVD, no murmur Abdomen/GI: normal bowel sounds, non tender, soft Extremities/Musculoskelatal: normal inspection, no calf tenderness, no pedal edema Neurologic/Psych: + pertinent finding (drowsy but rousable, oriented x 2) Skin: normal color, warm/dry, no rash Lymphatic: no adenopathy Hospital Course 65 year old female with history of Recurrent UTIs, Chronic Respiratory Failure on 4 liters home Oxygen, Obesity Hypoventilation Syndrome, Asthma, DM 2, HTN, Morbid Obesity, Chronic Pain, Depression, presenting with confusion and weakness. HYPERCAPNEIC RESPIRATORY FAILURE - Bipap ordered , tolerated well with regular Bipap use, patient remained alert, oriented - blood and sputum cultures negative so far CXR possible left lower lobe atelectasis vs. pneumonia given empiric Ertapenem x 5 days, discontinued as patient was afebrile, sputum cultures negative - Pulmonary Dr. Bennett/Dr. Ferrell consulted - transitioned to CPAP encouraged to use consistently, avoid benzodiazepenes cleared for d/c home, ff up with PCP in 3-5 days ALTERED MENTAL STATUS - from Hypercapnea, management noted above - checked ammonia: 39 but patient now back to baseline even without treatment negative blood, urine, sputum cultures - resolved DM 2 resume usual regimen HTN on Metoprolol MORBID OBESITY CHRONIC PAIN resume usual medications stable ASTHMA was not in exacerbation DISPOSITION d/c home with home health services ff up with PCP in 3-5 days : Dr. Galvan Total time spent on discharge = 40 minutes This includes examination of the patient, discharge planning, medication reconciliation, and communication with other providers. Discharge Instructions Discharge Instructions Date of Service Nov 23, 2016. Admission Reason for Admission: Tered Mental Status Discharge Discharge Diagnosis / Problem: ALTERED MENTAL STATUS Discharge Goals Goal(s): Diagnostic testing, Therapeutic intervention Activity Recommendations Activity Limitations: as noted below (INCREASE ACTIVITY GRADUALYL TOLERATED) . Instructions / Follow-Up Instructions / Follow-Up PLEASE REVIEW YOUR NEW MEDICATION CHANGES AND FOLLOW INSTRUCTIONS CAREFULLY. BACLOFEN AND ATIVAN HAS BEEN DISCONTINUED FOR NOW THESE MAY CONTRIBUTE TO YOUR HIGH CO2 AND DROWSINESS. CALL 911 IF WITH RECURRENCE OF SYMPTOMS. CALL PRIMARY CARE PHYSICIAN OR RETURN TO ER IMMEDIATELY IF WITH INCREASING COUGH, SHORTNESS OF BREATH, SPUTUM, FEVER/CHILLS. FOLLOW UP WITH DR. GALVAN ON TUESDAY NOVEMBER 29, 2016 AT 8:45AM. Current Hospital Diet Patient's current hospital diet: Diabetes Type 2 Diet, AHA Diet (Heart Healthy) Discharge Diet Recommended Diet: AHA Diet (Heart Healthy), Diabetes Type 2 Diet Pending Studies Studies pending at discharge: no
[2016-11-23] MEDS: LACTOBACILLUS ACIDOPHILUS (FLORANEX) TAB PO SCH (20:13)
[2016-11-23] MEDS: MONTELUKAST SOD 10 MG TAB PO SCH (20:14)
[2016-11-23] MEDS: TRAZODONE HCL 50 MG TAB PO PRN (22:02)
[2016-11-23] MEDS: ACETAMINOPHEN 500 MG TAB PO PRN (23:20)
[2016-11-24] VITALS (7 sets, daily range): BP systolic 119–165; BP diastolic 50–70; PULSE 63–80; TEMP 36.5–37; O2SAT 94–97
[2016-11-24] MEDS: LEVALBUTEROL 1.25MG/0.5ML NEB INH SCH ×2 (03:00→06:57)
[2016-11-24] MEDS: IPRATROPIUM BROMIDE NEB SOLN 0.02% 2.5 ML VIAL INH SCH ×2 (03:00→06:57)
[2016-11-24] MEDS: LEVOTHYROXINE 100 MCG TAB PO SCH (05:33)
[2016-11-24 06:24] LABS: BASO % 0.5 %; BASO ABS # 0.04 K/uL (0-0.2); COMPLETE YES; EOS % 4.6 %; HEMATOCRIT 38.1 % (37-47); IG% 0.5 %; LYMPH % 21.3 %; LYMPH ABS # 1.82 K/uL (1.2-3.4); MEAN CELL VOLUME 78.4 fL (80-100); MEAN CORPUSCULAR HEMOGLOBIN 23.7 pg (25-34); MEAN CORPUSCULAR HGB CONC 30.2 g/dl (32-36); MEAN PLATELET VOLUME 10.5 fL (7.4-10.4); MONO % 8.4 %; NEUT % 64.7 %; PLATELET COUNT 143 K/uL (130-400); RED BLOOD COUNT 4.86 M/uL (4.2-5.4); WHITE BLOOD COUNT 8.56 K/uL (4.8-10.8)
[2016-11-24 06:51] LABS: BUN/CREATININE RATIO 21.4 (10-20); CALCIUM 8.4 mg/dl (8.5-10.1); CREATININE 0.59 mg/dl (0.60-1.20); POTASSIUM 3.4 mmol/L (3.5-5.1)
[2016-11-24] MEDS: INSULIN ASPART 100 UNITS/ML 3 ML PEN SC SCH (07:48)
[2016-11-24] MEDS: INSULIN HUMAN NPH SC SCH (07:50)
[2016-11-24] MEDS: TIOTROPIUM BROMIDE 5 PUFF/90 MCG INH INH SCH (08:50)
[2016-11-24] MEDS: URSODIOL 300 MG CAP PO SCH (08:50)
[2016-11-24] MEDS: PREGABALIN 100 MG CAP PO SCH (08:52)
[2016-11-24] MEDS: ASPIRIN 81 MG ECTAB PO SCH (08:53)
[2016-11-24] MEDS: PANTOprazole SOD 40 MG TAB PO SCH (08:53)
[2016-11-24] MEDS: DULOXETINE (CYMBALTA) 30 MG CAP PO SCH (08:53)
[2016-11-24] MEDS: ENOXAPARIN 40 MG/0.4 ML SYR SQ SCH (08:56)
[2016-11-24] MEDS ORDERED: POTASSIUM CHLORIDE 10 MEQ TABCR PO STA (09:51)
--- NOTE | 2016-11-24 09:53 | Progress Note ---
Medicine Progress Note Date & Time of Visit: Nov 24, 2016 at 09:53. Subjective Patient doing well, denies any complaints. Is looking forward to going home today. No overnight events noted. Objective Last 8 Hrs Date Time Temp Pulse Resp B/P (MAP) Pulse Ox O2 Delivery O2 Flow Rate FiO2 11/24/16 09:18 36.8 77 20 94 Nasal Cannula BiPAP 11/24/16 08:10 Nasal Cannula 3.0 11/24/16 07:35 36.8 77 20 165/70 (101) 94 Nasal Cannula 3.0 11/24/16 06:57 65 18 97 Nasal Cannula 5.0 11/24/16 04:00 96 CPAP 11/24/16 03:41 36.5 63 18 125/52 (76) 96 BiPAP 5.0 Physical Exam: GENERAL: Patient is in no acute distress. HEENT: No acute trauma, normocephalic atraumatic, mucous membranes moist, no nasal congestion, no scleral icterus. NECK: No stridor, trachea is midline. LUNGS: Clear to auscultation bilaterally, no wheeze, no rhonchi, breath sounds equal. HEART: Without murmurs gallops or rubs, regular rate and rhythm. ABDOMEN: Soft, nontender, bowel sounds positive, obese, non distended EXTREMITIES: No cyanosis; B/L LE edema NEUROLOGIC: Oriented x 3, no acute motor or sensory deficits, no focal weakness. SKIN: No rash, no jaundice, no diaphoresis. Laboratory Results: Last 24 Hours Test 11/23/16 11:17 11/23/16 16:14 11/23/16 20:25 11/24/16 06:11 Bedside Glucose 161 mg/dl 128 mg/dl 98 mg/dl White Blood Count 8.56 K/uL Red Blood Count 4.86 M/uL Hemoglobin 11.5 g/dL Hematocrit 38.1 % Mean Corpuscular Volume 78.4 fL Mean Corpuscular Hemoglobin 23.7 pg Mean Corpuscular Hemoglobin Concent 30.2 g/dl Platelet Count 143 K/uL Mean Platelet Volume 10.5 fL Neutrophils (%) (Auto) 64.7 % Lymphocytes (%) (Auto) 21.3 % Monocytes (%) (Auto) 8.4 % Eosinophils (%) (Auto) 4.6 % Basophils (%) (Auto) 0.5 % Neutrophils # (Auto) 5.55 K/uL Lymphocytes # (Auto) 1.82 K/uL Monocytes # (Auto) 0.72 K/uL Eosinophils # (Auto) 0.39 K/uL Basophils # (Auto) 0.04 K/uL RDW Standard Deviation 51.5 fL RDW Coefficient of Variation 18.0 % Immature Granulocyte % (Auto) 0.5 % Immature Granulocyte # (Auto) 0.04 K/uL Sodium Level 142 mmol/L Potassium Level 3.4 mmol/L Chloride Level 104 mmol/L Carbon Dioxide Level 31 mmol/L Anion Gap 6.0 mmol/L Blood Urea Nitrogen 13 mg/dl Creatinine 0.59 mg/dl Est Creatinine Clear Calc Drug Dose 150.9 ml/min Estimated GFR () 110.7 Estimated GFR (Non- 95.5 BUN/Creatinine Ratio 21.4 Random Glucose 150 mg/dl Calcium Level 8.4 mg/dl Test 11/24/16 06:50 Bedside Glucose 152 mg/dl Assessment & Plan HYPERCAPNEIC RESPIRATORY FAILURE -patient tolerated Bipap without difficulty; with regular Bipap use, patient remained alert, oriented, she was then transitioned to CPAP qHS -blood and sputum cultures negative so far -CXR possible left lower lobe atelectasis vs. pneumonia -was treated with empiric Ertapenem x 5 days, but discontinued as patient was afebrile, sputum cultures negative, unlikely that she had pneumonia -Pulmonary Dr. Bennett/Dr. Ferrell consulted -encouraged CPAP use, advised to avoid benzodiazepenes ALTERED MENTAL STATUS: -secondary to above/hypercapnea -ammonia: 39 but patient now back to baseline even without treatment -negative blood, urine, sputum cultures -resolved DM TYPE II: -continue with lantus insulin + correction scale HTN: -continue on Metoprolol MORBID OBESITY: -patient aware of impact her weight has on her breathing CHRONIC PAIN: -resume usual medications -stable ASTHMA: -was not in exacerbation Consultants: Pulmonary Dr. Bennett/Dr. Ferrell Procedures: CHEST ONE VIEW PORTABLE HISTORY: 65 years-old Female fever acute fever with illness. COMPARISON: Chest radiograph 06/24/2016 TECHNIQUE: Portable upright AP view of the chest FINDINGS: Cardiac silhouette is mildly enlarged, unchanged. There is atherosclerosis of the aorta. No pneumothorax identified. Suspected small left pleural effusion persists with hazy left basilar opacity. There is mild pulmonary vascular congestion without overt pulmonary edema. The bones are grossly intact. IMPRESSION: 1. Cardiomegaly and pulmonary vascular congestion without overt pulmonary edema. 2. Small left pleural effusion with subsegmental left basilar opacities suggesting atelectasis or pneumonia. HEAD WITHOUT CONTRAST (CT) CLINICAL HISTORY: 65 years-old Female with ams . Acute altered mental status with weakness and confusion TECHNIQUE: Multiple axial CT images of the head were obtained without contrast. A dose lowering technique was utilized adhering to the principles of ALARA. CT DOSE: 1043.68 mGy.cm COMPARISON: Head CT 05/23/2015. FINDINGS: Study is limited secondary to motion artifact. Repeat study through the posterior fossa was then obtained which is also moderately limited secondary to motion artifact. Within the limitations of the study, no acute intracranial hemorrhage, midline shift, mass, large territorial ischemia or abnormal extra-axial collection. The calvarium is intact. The paranasal sinuses, mastoid air cells, and middle ear cavities are clear. IMPRESSION: Limited study secondary to patient motion. Within the limitations of the study, there is no acute intracranial abnormality identified. Current Inpatient Medications: Current Inpatient Medications Medications (Trade) Dose Ordered Sig/Keith Route Start Time Stop Time Status Last Admin Dose Admin Glucose (Glucose 40% Gel) 15-30 GRAMS 15 GRAMS... UD PRN PO 11/19/16 13:00 12/19/16 12:59 Glucose (Glucose Chew Tab) 4-8 Tablets 4 Tabl... UD PRN PO 11/19/16 13:00 12/19/16 12:59 Dextrose (Dextrose 50% 50ML Syringe) 25-50ML OF 50% DW IV FOR... UD PRN IV 11/19/16 13:00 12/19/16 12:59 Glucagon (Glucagon Inj) 1 mg UD PRN SQ 11/19/16 13:00 12/19/16 12:59 Miscellaneous Information (Consult Glycemic Management Pharmacy) 1 ea UD PRN N/A 11/19/16 13:14 12/19/16 13:13 Aspirin (Ecotrin Tab) 81 mg DAILY PO 11/20/16 09:00 12/20/16 08:59 11/24/16 08:53 81 MG Celecoxib (CeleBREX CAP) 200 mg DAILY PRN PO 11/19/16 13:15 12/19/16 13:14 11/21/16 07:36 200 MG Duloxetine HCl (Cymbalta Cap) 30 mg BID PO 11/19/16 21:00 12/19/16 20:59 11/24/16 08:53 30 MG Levothyroxine Sodium (Synthroid Tab) 100 mcg DAILYBB PO 11/20/16 06:00 12/20/16 05:59 11/24/16 05:33 100 MCG Miconazole Nitrate (Desenex Powder) 1 appln BID PRN EXT 11/19/16 13:15 12/19/16 13:14 Montelukast Sodium (Singulair Tab) 10 mg HS PO 11/19/16 21:00 12/19/16 20:59 11/23/16 20:14 10 MG Nystatin (Mycostatin Crm) 1 appln BID PRN EXT 11/19/16 13:15 12/19/16 13:14 Pantoprazole Sodium (Protonix Tab) 40 mg QAM PO 11/20/16 09:00 12/20/16 08:59 11/24/16 08:53 40 MG Pregabalin (Lyrica Cap) 200 mg TID PO 11/19/16 14:00 12/19/16 13:59 11/24/16 08:52 200 MG Tiotropium [place] (Spiriva Handihaler Inhaler) 1 puff QAM INH 11/20/16 09:00 12/20/16 08:59 11/24/16 08:50 1 PUFF Ursodiol (Actigall Cap) 600 mg BID PO 11/19/16 21:00 12/19/16 20:59 11/24/16 08:50 600 MG Lactobacillus Acidophilus (Floranex Tab) 1 tab HS PO 11/19/16 21:00 12/19/16 20:59 11/23/16 20:13 1 TAB Atenolol (Tenormin Tab) 25 mg DAILY PO 11/20/16 09:00 12/20/16 08:59 11/24/16 08:51 25 MG Ipratropium [place] (Atrovent 0.02% 0.5MG/2.5ML Neb) 0.5 mg Q6R INH 11/19/16 15:00 12/19/16 14:59 11/24/16 06:57 0.5 MG Levalbuterol (Xopenex 1.25MG/ 0.5ML Neb) 1.25 mg Q6R INH 11/19/16 15:00 12/19/16 14:59 11/24/16 06:57 1.25 MG Insulin Aspart (novoLOG ASPART) SLIDING SCALE If C... ACHS SC 11/19/16 16:45 12/19/16 16:44 11/24/16 07:48 19 UNITS Trazodone HCl (Desyrel Tab) 50 mg HS PRN PO 11/20/16 20:30 12/20/16 20:29 11/23/16 22:02 50 MG Enoxaparin Sodium (Lovenox Inj) 40 mg QAM SQ 11/21/16 09:00 12/21/16 08:59 11/24/16 08:56 40 MG Acetaminophen (Tylenol Tab) 500 mg Q6H PRN PO 11/21/16 16:15 12/21/16 16:14 11/23/16 23:20 500 MG Insulin Human NPH (novoLIN-N NPH) 27 units TIDM SC 11/23/16 07:30 12/23/16 07:29 11/24/16 07:50 27 UNITS
--- NOTE | 2016-11-25 08:05 | EDITING REQUIRED CODING QUERY ---
CODING QUERY To promote full compliance with coding requirements relating to patient care, provider participation is requested in all cases of agricultural commodities grader uncertainty. Please assist us with the question(s) below: Coding Question(s): Patient with morbid obesity/morbid obesity with alveolar hypoventilation .. Initial pneumonia/atelectasis- with left sided opacification. Sputum negative. Please check below the phrase re: pneumonia & the diagnosis you were treating during this Inpatient Stay. Thank you. Sonido Corey [facility] Physician's Response(s): Patient was treated/diagnosed with Pneumonia _Patient did not have Pneumonia __X Other/Comments: Pneumonia unlikely Principal Diagnosis: "_that condition established after study, to be chiefly responsible for occasioning the admission of the patient to the hospital for care." Co-Existing Principal Diagnosis: "_when two or more diagnoses equally meet the criteria for principal diagnosis as determined by the circumstances of admission, diagnostic work up, and/or therapy provided, and the Alphabetic Index, Tabular List, or another coding guideline does not provide sequencing direction, any one of the diagnoses may be sequenced first." "When the physician has documented what appears to be a current diagnosis in the body of the record, but has not included the diagnosis in the final diagnostic statement, the physician should be asked whether the diagnosis should be added." (Source [facility]oding [facility] 2 QTR90. p3-4)
== END 2016-11-24 10:30 | disposition home health service (06) | DRG 189 ==
LOC: EDBD 08:00 → C.EDB 08:02 → C.2E 11:03 → ENRESERV 11:20
PROVIDERS: ADMIT Internal Medicine; ATTEND Internal Medicine
DX: J96.22 Acute and chronic respiratory failure with hypercapnia (principal); G93.41 Metabolic encephalopathy; Z68.43 Body mass index [BMI] 50.0-59.9, adult; I50.30 Unspecified diastolic (congestive) heart failure; I42.2 Other hypertrophic cardiomyopathy; E87.2 Acidosis; K50.90 Crohn's disease, unspecified, without complications; J98.11 Atelectasis; F41.9 Anxiety disorder, unspecified; J45.909 Unspecified asthma, uncomplicated; E11.40 Type 2 diabetes mellitus with diabetic neuropathy, unspecified; I11.0 Hypertensive heart disease with heart failure; E78.5 Hyperlipidemia, unspecified; Z79.4 Long term (current) use of insulin; Z99.81 Dependence on supplemental oxygen; I67.9 Cerebrovascular disease, unspecified; Z86.73 Personal history of transient ischemic attack (TIA), and cerebral infarction without residual deficits; E03.9 Hypothyroidism, unspecified; G47.33 Obstructive sleep apnea (adult) (pediatric)

== ENCOUNTER 2017-02-28 23:26 | Inpatient (IN) | payer OTHER ==
[~2017-02-28] VITALS: Ht 172.7 cm; Wt 156.6 kg
[~2017-02-28 23:26] MED LIST changes: -ATR25 PO; -ATV/2 PO; -ATV2 PO; -LRS20 PO; +PANT40TA2 PO; -PRT/40 PO
[2017-03-01] VITALS (20 sets, daily range): BP systolic 118–169; BP diastolic 45–67; PULSE 78–99; TEMP 36.7–38.5; O2SAT 92–97; Ht 172.7 cm; Wt 156.6 kg
[2017-03-01] MEDS ORDERED: INSU0.01 SQ (00:03)
[2017-03-01] MEDS ORDERED: INSUINJ7 SQ (00:04)
[2017-03-01] MEDS ORDERED: BACL10TA PO (00:05)
[2017-03-01] MEDS ORDERED: METO25TA3 PO (00:08)
[2017-03-01] MEDS ORDERED: CLB/200 PO (00:09)
--- NOTE | 2017-03-01 00:09 | EMERGENCY ROOM VISIT NOTE ---
History Report prepared by Michelle: Kirstie Brooks Under the Supervision of: Dimitrios DuarteO. First contact with patient: 23:39 Chief Complaint: SHORTNESS OF BREATH Stated Complaint: SHORT OF BREATH Nursing Triage Summary: Normally alert and oriented, today lethargic and confused. Currently oriented only to person, does follow basic commands. SpO2 dropped to 89 on her home oxygen at 2 lpm. EMS increased to 4 lpm and had it back to low to mid 90's en route. Pt also incontinent of urine per EMS. History of Present Illness The patient is a 66 year old female who presents to the Emergency Room with complaints of increasing of lethargy and confusion beginning a couple hours ago. Per , the patient told him she did not feel well this afternoon. He states he told her to take a nap and when she woke up she was lethargic and unable to answer questions. Per , at baseline, the patient is alert and oriented. He states she was last acting and talking normally around 6pm, about 6 hours ago. At baseline, wears 2 liters of nasal cannula oxygen. Per , the patient did not seem short of breath today. The patient has a history of recurrent UTIs. Per , the patient gets confused when she gets UTIs. The patient normally urinates into a bedpan. Per , the patient has not had any diarrhea or fever. History limited secondary to patient's mental status. Source of History: spouse/significant other History Limited By: other (mental status) Onset: 6 hours ago Position: other (generalized) Quality: other (lethargy and confusion) Associated Symptoms: No fevers, No SOB, No diarrhea Review of Systems ROS limited secondary to patient's mental status. Past Medical & Surgical Medical Problems: (1) Acute Pancreatitis (2) Altered mental status (3) Anxiety (4) Asthma (5) Body Mass Index 50.0-59.9, Adult (6) Cerebrovascular disease (7) Chronic hypercapnic respiratory failure (8) Chronic osteoarthritis (9) Chronic pain disorder (10) Crohn's disease (11) Depression (12) Diabetes mellitus, type II (13) Diabetic neuropathy (14) Diastolic heart failure (15) Dyslipidemia (16) Gastroparesis (17) Hypercapnic respiratory failure (18) Hypertension (19) Hypertrophic cardiomyopathy (20) Hypothyroidism (21) Necrotizing Fasciitis (22) Obesity hypoventilation syndrome (23) Pneumonia, organism unspecified (24) Recurrent UTI (25) Sleep apnea (26) Urin Tract Infection Nos Surgical Problems: (1) Status post partial nephrectomy (2) Status post repair nasal septum (3) Status post tonsillectomy Family History FH: asthma SISTER FH: dementia MOTHER FH: diabetes mellitus MOTHER GRANDMOTHER FH: heart disease FATHER GRANDMOTHER FH: hypertension MOTHER Social History Smoking Status: Never Smoker Alcohol Use: none Drug Use: none Marital Status: Housing Status: lives with family Occupation Status: disabled Current/Historical Medications Scheduled Aspirin (Aspirin Ec), 81 MG PO DAILY Baclofen (Lioresal), 10 MG PO TID Celecoxib (CeleBREX), 200 MG PO DAILY Duloxetine HCl (Duloxetine HCl), 30 MG PO BID Fluticasone Propionate (Nasal) (Flonase Allergy Relief), 2 SPRAYS ANTON DAILY Home O2 Therapy (Oxygen), 3 LITERS NA DAYTIME Insulin Isophane (Human) (Novolin N Relion), 73 UNITS SQ AC Insulin Regular (Human) (Novolin R U-100), 33 UNITS SQ AC Levothyroxine Sodium (Levothyroxine Sodium), 100 MCG PO QAM Metformin HCl (Metformin HCl ER), 1,000 MG PO DAILY Metoprolol Succ (Toprol Xl) (Toprol-Xl), 25 MG PO DAILY Montelukast Sod (Montelukast Sodium), 10 MG PO HS Nystatin (Nystatin Cream), 1 APPLN TOP BID Pantoprazole (Pantoprazole Sodium), 40 MG PO QAM Polyethylene Glycol 3350 (Miralax), 17 GM PO BID Pregabalin (Lyrica), 200 MG PO TID Probiotic Product (Probiotic), 1 CAP PO HS Tiotropium [place] (Spiriva Handihaler), 1 PUFF INH QAM Ursodiol (Ursodiol), 600 MG PO BID Scheduled PRN Albuterol Hfa (Ventolin Hfa), 2 PUFFS INH QID PRN for SOB/Wheezing Albuterol Sulf (Proventil 0.083% 2.5MG/3ML), 1 VIAL NEB Q6H PRN for SOB/Wheezing Furosemide (Furosemide), 40 MG PO DAILY PRN for edema Lactulose (Chronulac), 15 ML PO DAILY PRN for Severe Constipation Miconazole Nitrate (Desenex Shake Powder), 1 APPLN TOP BID PRN for Affected Skin Folds Ondansetron Hcl (Zofran), 4 MG PO Q6H PRN for Nausea Sumatriptan Succinate (Imitrex), 100 MG PO UD PRN for Migraine Trazodone Hcl (Trazodone), 100 MG PO HS PRN for Sleep Triamcinolone Acet (Triamcinolone Acetonide), 1 APPLN TOP BID PRN for Redness and Itching Allergies Coded Allergies: Fluoxetine (Verified Allergy, Severe, ANAPHYLAXIS, 02/28/17) Insulin (Verified Allergy, Severe, LANTUS/LEVEMIR- HIVES/THROAT SWELLING, 02/28/17) TOLERATES NOVOLIN N 11/19/15 aj (per pt phone call) Note: after patient had severe hives reaction from Lantus (many years ago), she had skin testing @ [facility] and was tested with many other insulins. Pt says she only tolerated NOVOLIN NPH. PT HAS TOLERATED NOVOLOG ON PREVIOUS ADMISSIONS. Has tolerated Aspart during multiple admissions (12/2013, 05/2015, 07/2015) Moxifloxacin (Verified Allergy, Severe, HIVES, 02/28/17) Nitrofurantoin (Verified Allergy, Severe, HIVES, 02/28/17) Paroxetine (Verified Allergy, Severe, HIVES, 02/28/17) Quinolones (Verified Allergy, Severe, AVELOX & LEVAQUIN-HIVES, 02/28/17) Amitriptyline (Verified Allergy, Intermediate, Sweats and itching, 02/28/17 ) Buspirone (Verified Allergy, Intermediate, HIVES, 02/28/17) Citalopram (Verified Allergy, Intermediate, HIVES-RASH, 02/28/17) Escitalopram (Verified Allergy, Intermediate, HIVES-RASH, 02/28/17) Methadone (Verified Allergy, Intermediate, HIVES, 02/28/17) Penicillins (Verified Allergy, Intermediate, RASH,HIVES, 02/28/17) Serotonin Reuptake Inhibitors (Verified Allergy, Intermediate, MIGRAINES TO SSRIs, 02/28/17) Trazodone (Verified Allergy, Intermediate, BLOODY NOSE, HEADACHES,HIVES, ) Vancomycin (Verified Allergy, Intermediate, HIVES, 02/28/17) Prednisone (Verified Allergy, Mild, CHEST TIGHTNESS, 02/28/17) Azithromycin (Verified Allergy, Unknown, HIVES, 02/28/17) Carbamazepine (Verified Allergy, Unknown, [id number], 02/28/17) Cefepime (Verified Allergy, Unknown, face & arm redness/itching after 2nd or 3rd dose cefepime, 02/28/17) Ceftriaxone (Verified Allergy, Unknown, Received in [facility] (but needed benadryl for course of therapy, 02/28/17) this was during 01/2016 [facility] admission for Rocephin Ciprofloxacin (Unverified Allergy, Unknown, ABD PAINS, 02/28/17) Sertraline (Verified Allergy, Unknown, UNKNOWN, 02/28/17) Sitagliptin (Verified Allergy, Unknown, HIVES, 02/28/17) Tetracyclines (Verified Adverse Reaction, Severe, HIVES, 02/28/17) Sulfa Antibiotics (Verified Adverse Reaction, Intermediate, MIGRAINES, ) Fexofenadine (Verified Adverse Reaction, Mild, GI SYMPTOMS, 02/28/17) Tizanidine (Verified Adverse Reaction, Mild, ITCHING-HIVES, 02/28/17) Physical Exam Vital Signs Date Time Temp Pulse Resp B/P (MAP) Pulse Ox O2 Delivery O2 Flow Rate FiO2 03/01/17 03:39 94 20 94 03/01/17 03:31 157/57 03/01/17 03:24 95 20 93 03/01/17 03:09 96 20 94 03/01/17 03:09 96 03/01/17 03:04 138/59 03/01/17 02:46 100 20 92 Nasal Cannula 4.0 03/01/17 02:31 102 22 172/56 92 03/01/17 02:16 101 20 92 03/01/17 02:01 99 21 150/56 93 03/01/17 01:50 123/59 03/01/17 01:46 100 23 92 03/01/17 01:31 99 24 92 03/01/17 01:16 96 25 92 03/01/17 01:01 97 26 92 03/01/17 00:46 94 23 91 03/01/17 00:41 96 24 92 1/16/18 00:26 97 25 92 03/01/17 00:11 95 24 92 03/01/17 00:01 129/81 02/28/17 23:56 95 20 93 02/28/17 23:41 94 24 93 02/28/17 23:39 94 02/28/17 23:36 95 22 95 Nasal Cannula 4.0 02/28/17 23:34 36.9 94 22 152/70 93 Nasal Cannula 4.0 02/28/17 23:31 152/70 Physical Exam General: Patient is extremely lethargic unable to answer questions or follow commands. HEENT: Head - normocephalic and atraumatic Pupils are equal, round, and reactive to light. Extraocular eye muscles are intact, and sclera are anicteric. Nose - moist nasal mucosa without discharge. Mouth - moist buccal mucosa. Oropharynx is nonerythematous and there is no tonsillar exudate or edema noted. Neck: Supple; no JVD, nuchal rigidity, cervical lymphadenopathy, or auscultated bruits. Heart: Tachycardic rate and regular rhythm. There is a normal S1 and S2 with no murmurs, clicks, or gallops appreciated. Lungs: Unable to auscultate secondary to body habitus. Abdomen: Soft, completely nontender, nondistended, with good bowel sounds. There are no palpable pulsatile masses or hepatosplenomegaly. There is no guarding, rigidity, or rebound noted. Extremities: No evidence of cyanosis, clubbing, or edema. There are easily palpable peripheral pulses. Skin: warm and dry with good turgor and no rashes. Medical Decision & Procedures ER Provider Diagnostic Interpretation: Radiology results as stated below per my review and the radiologist's interpretation: Chest X-Ray: significant cardiomegaly poor inspiratory effort. No change from . CT HEAD: Comparison November 19. Limited by fairly prominent artifact. No acute intracranial findings. Radiologist: Devonte Farah MD Laboratory Results 03/01/17 00:40 Red Blood Count 5.30, Mean Corpuscular Volume 83.0, Mean Corpuscular Hemoglobin 24.3, Mean Corpuscular Hemoglobin Concent 29.3, Mean Platelet Volume 11.2, Neutrophils (%) (Auto) 79.9, Lymphocytes (%) (Auto) 9.0, Monocytes (%) (Auto) 7.2, Eosinophils (%) (Auto) 1.6, Basophils (%) (Auto) 0.2, Neutrophils # (Auto) 11.03, Lymphocytes # (Auto) 1.24, Monocytes # (Auto) 0.99, Eosinophils # (Auto) 0.22, Basophils # (Auto) 0.03 03/01/17 00:40 Test 03/01/17 00:40 03/01/17 00:48 03/01/17 01:35 03/01/17 02:36 White Blood Count 13.80 K/uL (4.8-10.8) Red Blood Count 5.30 M/uL (4.2-5.4) Hemoglobin 12.9 g/dL (12.0-16.0) Hematocrit 44.0 % (37-47) Mean Corpuscular Volume 83.0 fL (80-100) Mean Corpuscular Hemoglobin 24.3 pg (25-34) Mean Corpuscular Hemoglobin Concent 29.3 g/dl (32-36) Platelet Count 157 K/uL (130-400) Mean Platelet Volume 11.2 fL (7.4-10.4) Neutrophils (%) (Auto) 79.9 % Lymphocytes (%) (Auto) 9.0 % Monocytes (%) (Auto) 7.2 % Eosinophils (%) (Auto) 1.6 % Basophils (%) (Auto) 0.2 % Neutrophils # (Auto) 11.03 K/uL (1.4-6.5) Lymphocytes # (Auto) 1.24 K/uL (1.2-3.4) Monocytes # (Auto) 0.99 K/uL (0.11-0.59) Eosinophils # (Auto) 0.22 K/uL (0-0.5) Basophils # (Auto) 0.03 K/uL (0-0.2) RDW Standard Deviation 55.8 fL (36.4-46.3) RDW Coefficient of Variation 18.3 % (11.5-14.5) Immature Granulocyte % (Auto) 2.1 % Immature Granulocyte # (Auto) 0.29 K/uL (0.00-0.02) Nucleated RBC Absolute Count (auto) 0.02 K/uL (0-0) Nucleated Red Blood Cells % 0.1 % Prothrombin Time 10.1 SECONDS (9.0-12.0) Prothromb Time International Ratio 1.0 (0.9-1.1) Activated Partial Thromboplast Time 39.6 SECONDS (21.0-31.0) Partial Thromboplastin Ratio 1.5 Anion Gap 1.0 mmol/L (3-11) Est Creatinine Clear Calc Drug Dose 153.9 ml/min Estimated GFR () 110.5 Estimated GFR (Non- 95.4 BUN/Creatinine Ratio 20.1 (10-20) Calcium Level 8.8 mg/dl (8.5-10.1) Troponin I < 0.015 ng/ml (0-0.045) Globulin 3.9 gm/dl (2.5-4.0) Albumin/Globulin Ratio 0.9 (0.9-2) Bedside Lactic Acid Venous 0.62 mmol/L (0.90-1.70) Urine Color YELLOW Urine Appearance CLEAR (CLEAR) Urine pH 5.0 (4.5-7.5) Urine Specific [place] 1.020 (1.000-1.030) Urine Protein 1+ (NEG) Urine Glucose (UA) NEG (NEG) Urine Ketones NEG (NEG) Urine Occult Blood 3+ (NEG) Urine Nitrite NEG (NEG) Urine Bilirubin NEG (NEG) Urine Urobilinogen NEG (NEG) Urine Leukocyte Esterase NEG (NEG) Urine WBC (Auto) 1-5 /hpf (0-5) Urine RBC (Auto) 10-30 /hpf (0-4) Urine Hyaline Casts (Auto) 1-5 /lpf (0-5) Urine Epithelial Cells (Auto) 0-5 /lpf (0-5) Urine Bacteria (Auto) NEG (NEG) Total Bilirubin 0.3 mg/dl (0.2-1) Direct Bilirubin < 0.1 mg/dl (0-0.2) Aspartate Amino Transf (AST/SGOT) 25 U/L (15-37) Alanine Aminotransferase (ALT/SGPT) 26 U/L (12-78) Alkaline Phosphatase 90 U/L (45-117) Ammonia 35.0 umol/L (11-32) Total Protein 7.1 gm/dl (6.4-8.2) Albumin 3.3 gm/dl (3.4-5.0) Test 03/01/17 02:37 Arterial Blood pH 7.13 (7.35-7.45) Arterial Blood Partial Pressure CO2 115 mmHg (35-46) Arterial Blood Partial Pressure O2 74 mm/Hg (80-95) Arterial Blood HCO3 37 mmol/L (19-24) Arterial Blood Oxygen Saturation 92.1 % (90-95) Arterial Blood Base Excess 4.8 mEq/L (-9-1.8) Arterial Blood Gas Delivery 4.5 L Bill Test POS (POS) Laboratory results per my review. ECG Indication: altered mental status Rate (beats per minute): 96 Rhythm: normal sinus Findings: no acute ischemic change, no ectopy Comparison ECG Date: 11/19/16 Change: no significant change ED Course 2354: Past medical records reviewed. The patient was evaluated in room B11B. A complete history and physical exam was performed. Reviewed urine cultures and sensitivities from previous admissions. A septic protocol was performed. A chest x-ray was obtained. 0235: I updated the patient's on the patient's test results. We did an ABG and sent the patient for CT scan of the brain. 0325: The patient was placed on BiPAP. Discussed the patient's case with Dr. Asher. The patient will be evaluated for further management. 0331: Dr. Hernadez recommends that I talk to the associate professor of anthropology java integration developer. 0333: Discussed the patient's case Almaz Mendez PA-C C++ Quant Developer. The patient will be evaluated for further management. Medical Decision The patient is a 66 year old female who presents to the ED with increasing lethargy and confusion. Differential diagnosis includes UTI, sepsis, hypercapnia , elevated ammonia level, pneumonia, or hypoxia. Lab results show: pH 7.1 PCO2 of 115, PO2 74, bicarb 37, ammonia level 35, LFTs were normal. The cyst 66-year-old female patient who presents to the emergency department with an altered mental status. In the past, the patient has had previous urinary tract infections which have caused an altered mental status. However, the patient's urinalysis was unremarkable. ABG reveals significant respiratory acidosis with pH of 7.1 and a PCO2 of 115. The patient does suffer from hypercapnia secondary to hypoventilation. Ammonia level is at his baseline. The patient was placed on BiPAP and effort to blow off some of her CO2. She may quickly become a candidate for elective endotracheal intubation, however she is a morbidly obese female with a short neck and could prove to be a difficult intubation. She has remained hemodynamic stable while here in the emergency department. She tolerated BiPAP well. I've discussed the case with the associate professor of anthropology as well as the [facility] hospitalist. Medication Reconcilliation Current Medication List: was personally reviewed by me Blood Pressure Screening Patient's blood pressure: Elevated blood pressure Blood pressure disposition: Referred to PCP Consults Time Called: [phone] Consulting Physician: Dr. Asher Returned Call: [phone] Discussed the patient's case with Dr. Asher. The patient will be evaluated for further management. Additional Consults: Time Called: [phone] Consulted Physician: Almaz Mendez PA-C C++ Quant Developer Returned Call: [phone] Additional Comments: Discussed the patient's case Almaz Mendez PA-C C++ Quant Developer. The patient will be evaluated for further management. Impression Primary Impression: Acute respiratory failure with hypoxia and hypercarbia Additional Impression: Altered mental status Critical Care I have personally spent greater than 60 minutes of critical care time in the direct management of this patient. This includes bedside care, interpretation of diagnostic studies, and testing, discussion with consultants, patient, and family members, and other required patient management activities. This 60 minutes is in excess of all separately billable procedures. Scribe Attestation The scribe's documentation has been prepared under my direction and personally reviewed by me in its entirety. I confirm that the note above accurately reflects all work, treatment, procedures, and medical decision making performed by me. Departure Information Dispostion Being Evaluated By Hospitalist Referrals Bairon Owens M.D. (PCP) Patient Instructions My [facility] Problem Qualifiers Additional Impression: Altered mental status Altered mental status type: somnolence Qualified Codes: R40.0 - Somnolence
[2017-03-01] MEDS ORDERED: FLUT0.15 NAE (00:12)
[2017-03-01] MEDS ORDERED: TRAZ50TA35 PO (00:14)
[2017-03-01 01:01] LABS: BASO % 0.2 %; BASO ABS # 0.03 K/uL (0-0.2); EOS % 1.6 %; EOS ABS # 0.22 K/uL (0-0.5); HEMOGLOBIN 12.9 g/dL (12.0-16.0); IG# 0.29 K/uL (0.00-0.02); LYMPH ABS # 1.24 K/uL (1.2-3.4); MEAN CORPUSCULAR HEMOGLOBIN 24.3 pg (25-34); MEAN CORPUSCULAR HGB CONC 29.3 g/dl (32-36); MEAN PLATELET VOLUME 11.2 fL (7.4-10.4); MONO % 7.2 %; MONO ABS # 0.99 K/uL (0.11-0.59); NEUT % 79.9 %; NEUT ABS # 11.03 K/uL (1.4-6.5); NUCLEATED RED BLOOD CELL ABS 0.02 K/uL (0-0); PLATELET COUNT 157 K/uL (130-400); RED CELL DISTRIBUTION WIDTH CV 18.3 % (11.5-14.5); RED CELL DISTRIBUTION WIDTH SD 55.8 fL (36.4-46.3)
[2017-03-01 01:18] LABS: PTT PATIENT 39.6 SECONDS (21.0-31.0)
[2017-03-01 01:25] LABS: ALBUMIN 3.4 gm/dl (3.4-5.0); ALT/SGPT 27 U/L (12-78); AST/SGOT 21 U/L (15-37); BLOOD UREA NITROGEN 12 mg/dl (7-18); CALCIUM 8.8 mg/dl (8.5-10.1); CARBON DIOXIDE 40 mmol/L (21-32); CREATININE 0.58 mg/dl (0.60-1.20); GLUCOSE 88 mg/dl (70-99); POTASSIUM 4.3 mmol/L (3.5-5.1); SODIUM 142 mmol/L (136-145)
[2017-03-01 01:30] LABS: ALKALINE PHOSPHATASE 92 U/L (45-117); TOTAL PROTEIN 7.3 gm/dl (6.4-8.2)
[2017-03-01 03:06] LABS: ALBUMIN 3.3 gm/dl (3.4-5.0); ALKALINE PHOSPHATASE 90 U/L (45-117); ALT/SGPT 26 U/L (12-78); AST/SGOT 25 U/L (15-37); TOTAL PROTEIN 7.1 gm/dl (6.4-8.2)
--- NOTE | 2017-03-01 04:04 | History and Physical ---
History & Physical Date & Time of Service: Mar 01, 2017 at 03:57 Chief Complaint: Short Of Breath Primary Care Physician: Bairon Owens M.D. History of Present Illness This is a 66 year old F with history of respiratory failure and hypercarbia with last presentation in November 2016 when ABG was 7.21 and patient managed with BIPAP, Obesity Hypoventilation Syndrome, Asthma, DM 2, HTN, Morbid Obesity , Chronic Pain, Depression. As per patient's Uri [phone] on the phone, patient has never had to be intubated before. He reports that patient was lethargic around 6 PM on 02/28/17. Patient apparently was brought in by her . Patient was evaluated in the ED. ABG was drawn and BIPAP was started. The ABG is concerning for ABG pH 7.13 and pCO2 115. Patient evaluated by hospitalist medicine physician. Patient is somnolent, awake to sternal rub, responds verbally and then goes back to sleep while the BIPAP is on. Have explained to patient that if her breathing does not improve, she may need to be intubated. Patient cannot respond these explanations Hospitalist have requested that patient to be transferred to Intensive Care Unit for further monitoring and have discussed code status and possible need for intubation if the breathing does not improve on BIPAP. The patient's expresses his understanding on the phone. Past Medical/Surgical History Medical Problems: (1) Acute Pancreatitis Status: Resolved (2) Anxiety Status: Chronic (3) Asthma Status: Chronic (4) Body Mass Index 50.0-59.9, Adult Status: Chronic (5) Cerebrovascular disease Permanent Comment: history left thalamic stroke Status: Chronic (6) Chronic hypercapnic respiratory failure Status: Chronic (7) Chronic osteoarthritis Status: Chronic (8) Chronic pain disorder Status: Chronic (9) Crohn's disease Status: Chronic (10) Depression Status: Chronic (11) Diabetes mellitus, type II Status: Chronic (12) Diabetic neuropathy Status: Chronic (13) Diastolic heart failure Status: Chronic (14) Dyslipidemia Status: Chronic (15) Gastroparesis Status: Chronic (16) Hypertension Status: Chronic (17) Hypertrophic cardiomyopathy Status: Chronic (18) Hypothyroidism Status: Chronic (19) Necrotizing Fasciitis Status: Resolved (20) Obesity hypoventilation syndrome Status: Chronic (21) Pneumonia, organism unspecified Status: Resolved (22) Sleep apnea Status: Chronic (23) Urin Tract Infection Nos Status: Resolved Surgical Problems: (1) Status post partial nephrectomy Permanent Comment: left partial nephrectomy, pathology benign Status: Chronic (2) Status post repair nasal septum Status: Chronic (3) Status post tonsillectomy Status: Chronic Family History FH: asthma SISTER FH: dementia MOTHER FH: diabetes mellitus MOTHER GRANDMOTHER FH: heart disease FATHER GRANDMOTHER FH: hypertension MOTHER Social History Smoking Status: Never Smoker Drug Use: none Marital Status: Housing status: lives with significant other, other Occupational Status: disabled Immunizations History of Influenza Vaccine: Yes Influenza Vaccine Date: Oct 16, 2014 History of Tetanus Vaccine?: Unknown Tetanus Immunization Date: Oct 23, 2009 History of Pneumococcal: Yes Pneumococcal Date: Nov 30, 2000 History of Hepatitis B Vaccine: Unknown Multi-Drug Resistant Organisms History of MDRO: Yes Type of MDRO: MRSA Allergies Coded Allergies: Fluoxetine (Verified Allergy, Severe, ANAPHYLAXIS, 02/28/17) Insulin (Verified Allergy, Severe, LANTUS/LEVEMIR- HIVES/THROAT SWELLING, 02/28/17) TOLERATES NOVOLIN N 11/19/15 aj (per pt phone call) Note: after patient had severe hives reaction from Lantus (many years ago), she had skin testing @ [place] and was tested with many other insulins. Pt says she only tolerated NOVOLIN NPH. PT HAS TOLERATED NOVOLOG ON PREVIOUS ADMISSIONS. Has tolerated Aspart during multiple admissions (12/2013, 05/2015, 07/2015) Moxifloxacin (Verified Allergy, Severe, HIVES, 02/28/17) Nitrofurantoin (Verified Allergy, Severe, HIVES, 02/28/17) Paroxetine (Verified Allergy, Severe, HIVES, 02/28/17) Quinolones (Verified Allergy, Severe, AVELOX & LEVAQUIN-HIVES, 02/28/17) Amitriptyline (Verified Allergy, Intermediate, Sweats and itching, 02/28/17 ) Buspirone (Verified Allergy, Intermediate, HIVES, 02/28/17) Citalopram (Verified Allergy, Intermediate, HIVES-RASH, 02/28/17) Escitalopram (Verified Allergy, Intermediate, HIVES-RASH, 02/28/17) Methadone (Verified Allergy, Intermediate, HIVES, 02/28/17) Penicillins (Verified Allergy, Intermediate, RASH,HIVES, 02/28/17) Serotonin Reuptake Inhibitors (Verified Allergy, Intermediate, MIGRAINES TO SSRIs, 02/28/17) Trazodone (Verified Allergy, Intermediate, BLOODY NOSE, HEADACHES,HIVES, ) Vancomycin (Verified Allergy, Intermediate, HIVES, 02/28/17) Prednisone (Verified Allergy, Mild, CHEST TIGHTNESS, 02/28/17) Azithromycin (Verified Allergy, Unknown, HIVES, 02/28/17) Carbamazepine (Verified Allergy, Unknown, [id number], 02/28/17) Cefepime (Verified Allergy, Unknown, face & arm redness/itching after 2nd or 3rd dose cefepime, 02/28/17) Ceftriaxone (Verified Allergy, Unknown, Received in [facility] (but needed benadryl for course of therapy, 02/28/17) this was during 01/2016 [facility] admission for Rocephin Ciprofloxacin (Unverified Allergy, Unknown, ABD PAINS, 02/28/17) Sertraline (Verified Allergy, Unknown, UNKNOWN, 02/28/17) Sitagliptin (Verified Allergy, Unknown, HIVES, 02/28/17) Tetracyclines (Verified Adverse Reaction, Severe, HIVES, 02/28/17) Sulfa Antibiotics (Verified Adverse Reaction, Intermediate, MIGRAINES, ) Fexofenadine (Verified Adverse Reaction, Mild, GI SYMPTOMS, 02/28/17) Tizanidine (Verified Adverse Reaction, Mild, ITCHING-HIVES, 02/28/17) Home Medications Scheduled Aspirin (Aspirin Ec), 81 MG PO DAILY Baclofen (Lioresal), 10 MG PO TID Celecoxib (CeleBREX), 200 MG PO DAILY Duloxetine HCl (Duloxetine HCl), 30 MG PO BID Fluticasone Propionate (Nasal) (Flonase Allergy Relief), 2 SPRAYS [place] DAILY Home O2 Therapy (Oxygen), 3 LITERS NA DAYTIME Insulin Isophane (Human) (Novolin N Relion), 73 UNITS SQ AC Insulin Regular (Human) (Novolin R U-100), 33 UNITS SQ AC Levothyroxine Sodium (Levothyroxine Sodium), 100 MCG PO QAM Metformin HCl (Metformin HCl ER), 1,000 MG PO DAILY Metoprolol Succ (Toprol Xl) (Toprol-Xl), 25 MG PO DAILY Montelukast Sod (Montelukast Sodium), 10 MG PO HS Nystatin (Nystatin Cream), 1 APPLN TOP BID Pantoprazole (Pantoprazole Sodium), 40 MG PO QAM Polyethylene Glycol 3350 (Miralax), 17 GM PO BID Pregabalin (Lyrica), 200 MG PO TID Probiotic Product (Probiotic), 1 CAP PO HS Tiotropium [place] (Spiriva Handihaler), 1 PUFF INH QAM Ursodiol (Ursodiol), 600 MG PO BID Scheduled PRN Albuterol Hfa (Ventolin Hfa), 2 PUFFS INH QID PRN for SOB/Wheezing Albuterol Sulf (Proventil 0.083% 2.5MG/3ML), 1 VIAL NEB Q6H PRN for SOB/Wheezing Furosemide (Furosemide), 40 MG PO DAILY PRN for edema Lactulose (Chronulac), 15 ML PO DAILY PRN for Severe Constipation Miconazole Nitrate (Desenex Shake Powder), 1 APPLN TOP BID PRN for Affected Skin Folds Ondansetron Hcl (Zofran), 4 MG PO Q6H PRN for Nausea Sumatriptan Succinate (Imitrex), 100 MG PO UD PRN for Migraine Trazodone Hcl (Trazodone), 100 MG PO HS PRN for Sleep Triamcinolone Acet (Triamcinolone Acetonide), 1 APPLN TOP BID PRN for Redness and Itching Review of Systems patient cannot give history for review of systems Physical Exam Vital Signs Date Time Temp Pulse Resp B/P (MAP) Pulse Ox O2 Delivery O2 Flow Rate FiO2 03/01/17 03:47 94 95 40 03/01/17 03:09 96 03/01/17 03:04 138/59 03/01/17 02:46 100 20 92 Nasal Cannula 4.0 03/01/17 02:31 102 22 172/56 92 03/01/17 02:16 101 20 92 03/01/17 02:01 99 21 150/56 93 03/01/17 01:50 123/59 03/01/17 01:46 100 23 92 03/01/17 01:31 99 24 92 03/01/17 01:16 96 25 92 1/16/18 01:01 97 26 92 03/01/17 00:46 94 23 91 03/01/17 00:41 96 24 92 03/01/17 00:26 97 25 92 03/01/17 00:11 95 24 92 03/01/17 00:01 129/81 02/28/17 23:56 95 20 93 02/28/17 23:41 94 24 93 02/28/17 23:39 94 02/28/17 23:36 95 22 95 Nasal Cannula 4.0 02/28/17 23:34 36.9 94 22 152/70 93 Nasal Cannula 4.0 02/28/17 23:31 152/70 General Appearance: + obese, + pertinent finding (somnolent) Head: normocephalic, atraumatic Eyes: normal inspection, PERRL, sclerae normal ENT: normal ENT inspection, pharynx normal Neck: supple, no JVD, trachea midline Respiratory/Chest: + pertinent finding (on BIPAP) Cardiovascular: regular rate, rhythm, normal peripheral pulses, + pertinent finding (large legs with some bilateral lower extremity edema) Abdomen/GI: normal bowel sounds, soft, no organomegaly, no pulsatile mass Extremities/Musculoskelatal: + pertinent finding (large legs with some bilateral lower extremity edema) Neurologic/Psych: + pertinent finding (somnolent) Skin: normal color, warm/dry, no rash Diagnostics Laboratory Results Results Past 24 Hours Test 03/01/17 00:40 03/01/17 00:48 03/01/17 01:35 03/01/17 02:36 Range/Units White Blood Count 13.80 4.8-10.8 K/uL Red Blood Count 5.30 4.2-5.4 M/uL Hemoglobin 12.9 12.0-16.0 g/dL Hematocrit 44.0 37-47 % Mean Corpuscular Volume 83.0 80-100 fL Mean Corpuscular Hemoglobin 24.3 25-34 pg Mean Corpuscular Hemoglobin Concent 29.3 32-36 g/dl Platelet Count 157 130-400 K/uL Mean Platelet Volume 11.2 7.4-10.4 fL Neutrophils (%) (Auto) 79.9 % Lymphocytes (%) (Auto) 9.0 % Monocytes (%) (Auto) 7.2 % Eosinophils (%) (Auto) 1.6 % Basophils (%) (Auto) 0.2 % Neutrophils # (Auto) 11.03 1.4-6.5 K/uL Lymphocytes # (Auto) 1.24 1.2-3.4 K/uL Monocytes # (Auto) 0.99 0.11-0.59 K/uL Eosinophils # (Auto) 0.22 0-0.5 K/uL Basophils # (Auto) 0.03 0-0.2 K/uL RDW Standard Deviation 55.8 36.4-46.3 fL RDW Coefficient of Variation 18.3 11.5-14.5 % Immature Granulocyte % (Auto) 2.1 % Immature Granulocyte # (Auto) 0.29 0.00-0.02 K/uL Nucleated RBC Absolute Count (auto) 0.02 0-0 K/uL Nucleated Red Blood Cells % 0.1 % Prothrombin Time 10.1 9.0-12.0 SECONDS Prothromb Time International Ratio 1.0 0.9-1.1 Activated Partial Thromboplast Time 39.6 21.0-31.0 SECONDS Partial Thromboplastin Ratio 1.5 Sodium Level 142 136-145 mmol/L Potassium Level 4.3 3.5-5.1 mmol/L Chloride Level 101 98-107 mmol/L Carbon Dioxide Level 40 21-32 mmol/L Anion Gap 1.0 3-11 mmol/L Blood Urea Nitrogen 12 7-18 mg/dl Creatinine 0.58 0.60-1.20 mg/dl Est Creatinine Clear Calc Drug Dose 153.9 ml/min Estimated GFR () 110.5 Estimated GFR (Non- 95.4 BUN/Creatinine Ratio 20.1 10-20 Random Glucose 88 70-99 mg/dl Calcium Level 8.8 8.5-10.1 mg/dl Total Bilirubin 0.4 0.3 0.2-1 mg/dl Aspartate Amino Transf (AST/SGOT) 21 25 15-37 U/L Alanine Aminotransferase (ALT/SGPT) 27 26 12-78 U/L Alkaline Phosphatase 92 90 45-117 U/L Troponin I < 0.015 0-0.045 ng/ml Total Protein 7.3 7.1 6.4-8.2 gm/dl Albumin 3.4 3.3 3.4-5.0 gm/dl Globulin 3.9 2.5-4.0 gm/dl Albumin/Globulin Ratio 0.9 0.9-2 Bedside Lactic Acid Venous 0.62 0.90-1.70 mmol/L Urine Color YELLOW Urine Appearance CLEAR CLEAR Urine pH 5.0 4.5-7.5 Urine Specific [place] 1.020 1.000-1.030 Urine Protein 1+ NEG Urine Glucose (UA) NEG NEG Urine Ketones NEG NEG Urine Occult Blood 3+ NEG Urine Nitrite NEG NEG Urine Bilirubin NEG NEG Urine Urobilinogen NEG NEG Urine Leukocyte Esterase NEG NEG Urine WBC (Auto) 1-5 0-5 /hpf Urine RBC (Auto) 10-30 0-4 /hpf Urine Hyaline Casts (Auto) 1-5 0-5 /lpf Urine Epithelial Cells (Auto) 0-5 0-5 /lpf Urine Bacteria (Auto) NEG NEG Direct Bilirubin < 0.1 0-0.2 mg/dl Ammonia 35.0 11-32 umol/L Test 03/01/17 02:37 Range/Units Arterial Blood pH 7.13 7.35-7.45 Arterial Blood Partial Pressure CO2 115 35-46 mmHg Arterial Blood Partial Pressure O2 74 80-95 mm/Hg Arterial Blood HCO3 37 19-24 mmol/L Arterial Blood Oxygen Saturation 92.1 90-95 % Arterial Blood Base Excess 4.8 -9-1.8 mEq/L Arterial Blood Gas Delivery 4.5 L Bill Test POS POS Microbiology Results 03/01/17 Blood Culture, Received Pending 03/01/17 Blood Culture, Received Pending Impression Assessment and Plan Acute respiratory failure/Hypercarbia/Hypoxia/Altered Mental Status -History of CVA in the past, no acute intracranial findings on admission CT head scan -previous admission in 11/2016 with Acute respiratory failure -continue BIPAP, repeat ABG -if patient's ABG becomes worse or in distress, then may need intubation -admission from ED to Intensive Care Unit -appreciate Intensive Care Unit physician recommendations -history of pain managed with medication at home including sedatives such as trazodone, avoid sedative medications and narcotics -F/u Blood cultures sent in the ED -F/u chest X ray radiology read History of Diastolic Heart failure Has been on Metoprolol at home, hold for now for hemodynamic stability My need Diuretics depending on further respiratory status History of Diabetes -will need fingerstick glucose monitoring and insulin as needed Full Code Status Uri [phone] Full Code Level of Care Critical Care Resuscitation Status FULL RESUSCITATION VTE Prophylaxis VTE Risk Assessment Done? Y/N: Yes Risk Level: Moderate
[2017-03-01] MEDS ORDERED: RAPID SEQUENCE INDUCTION BAG ONE (05:26)
--- NOTE | 2017-03-01 05:27 | Critical Care Consultation ---
Critical Care Consultation Date of Consultation: Mar 01, 2017. Attending Physician: Fred Rowan MD Reason for Consultation: Hypercapnic Respiratory Failure with AMS History of Present Illness Sangeetha Ramon is a 66 yo female who presented to the ED today for increasing lethargy and confusion. Pt was present in the ED and states that after her nap she awoke lethargic and unable to answer questions. Pt was at baseline around 1800. I spoke with ED physician who stated the pt had come in attempting to follow commands but mental status continued to decline. She worked pt up for sepsis as pt typically presents like this with a UTI, however, negative this admission. Head CT was negative for acute intracranial process. Pt ammonia level is around her baseline of 35. She was placed on bipap just before our conversation. Her ABG prior to bi-pap on 4L was 7.1 ph and CO2 of 115. Pt arrived in unit on nasal cannula and bipap was replaced. Settings were increased to 20/10 and 40%. I contacted Dr. Love at this point and discussed giving the pt 30 minutes to recheck ABG before proceeding with intubation. ED physician had stated pt would be a difficult intubation and had advised if needed to contact anesthesiology. However, respiratory noted that tidal volumes were in the mid 200s and decreasing shortly after. I phoned Dr. Love again and was instructed to call on-call anesthesiologist for immediate intubation. Dr. Aggarwal arrive 15 minutes afterwards and intubated the pt using glydescope, 7.5 ET tube to 21cm at the teeth, with Propofol and Succinylcholine. ROS could not be obtained due to altered mental status, intubation, and sedation. Past Medical/Surgical History Medical Problems: (1) Acute Pancreatitis (2) Altered mental status (3) Anxiety (4) Asthma (5) Body Mass Index 50.0-59.9, Adult (6) Cerebrovascular disease (7) Chronic hypercapnic respiratory failure (8) Chronic osteoarthritis (9) Chronic pain disorder (10) Crohn's disease (11) Depression (12) Diabetes mellitus, type II (13) Diabetic neuropathy (14) Diastolic heart failure (15) Dyslipidemia (16) Gastroparesis (17) Hypercapnic respiratory failure (18) Hypertension (19) Hypertrophic cardiomyopathy (20) Hypothyroidism (21) Necrotizing Fasciitis (22) Obesity hypoventilation syndrome (23) Pneumonia, organism unspecified (24) Recurrent UTI (25) Sleep apnea (26) Urin Tract Infection Nos Surgical Problems: (1) Status post partial nephrectomy (2) Status post repair nasal septum (3) Status post tonsillectomy Family History FH: asthma SISTER FH: dementia MOTHER FH: diabetes mellitus MOTHER GRANDMOTHER FH: heart disease FATHER GRANDMOTHER FH: hypertension MOTHER Social History Smoking Status: Never Smoker Drug Use: none Marital Status: Housing Status: lives with family Occupation Status: disabled Allergies Coded Allergies: Fluoxetine (Verified Allergy, Severe, ANAPHYLAXIS, 02/28/17) Insulin (Verified Allergy, Severe, LANTUS/LEVEMIR- HIVES/THROAT SWELLING, 02/28/17) TOLERATES NOVOLIN N 11/19/15 aj (per pt phone call) Note: after patient had severe hives reaction from Lantus (many years ago), she had skin testing @ [facility] and was tested with many other insulins. Pt says she only tolerated NOVOLIN NPH. PT HAS TOLERATED NOVOLOG ON PREVIOUS ADMISSIONS. Has tolerated Aspart during multiple admissions (12/2013, 05/2015, 07/2015) Moxifloxacin (Verified Allergy, Severe, HIVES, 02/28/17) Nitrofurantoin (Verified Allergy, Severe, HIVES, 02/28/17) Paroxetine (Verified Allergy, Severe, HIVES, 02/28/17) Quinolones (Verified Allergy, Severe, AVELOX & LEVAQUIN-HIVES, 02/28/17) Amitriptyline (Verified Allergy, Intermediate, Sweats and itching, 02/28/17 ) Buspirone (Verified Allergy, Intermediate, HIVES, 02/28/17) Citalopram (Verified Allergy, Intermediate, HIVES-RASH, 02/28/17) Escitalopram (Verified Allergy, Intermediate, HIVES-RASH, 02/28/17) Methadone (Verified Allergy, Intermediate, HIVES, 02/28/17) Penicillins (Verified Allergy, Intermediate, RASH,HIVES, 02/28/17) Serotonin Reuptake Inhibitors (Verified Allergy, Intermediate, MIGRAINES TO SSRIs, 02/28/17) Trazodone (Verified Allergy, Intermediate, BLOODY NOSE, HEADACHES,HIVES, ) Vancomycin (Verified Allergy, Intermediate, HIVES, 02/28/17) Prednisone (Verified Allergy, Mild, CHEST TIGHTNESS, 02/28/17) Azithromycin (Verified Allergy, Unknown, HIVES, 02/28/17) Carbamazepine (Verified Allergy, Unknown, [id number], 02/28/17) Cefepime (Verified Allergy, Unknown, face & arm redness/itching after 2nd or 3rd dose cefepime, 02/28/17) Ceftriaxone (Verified Allergy, Unknown, Received in [facility] (but needed benadryl for course of therapy, 02/28/17) this was during 01/2016 [facility] admission for Rocephin Ciprofloxacin (Unverified Allergy, Unknown, ABD PAINS, 02/28/17) Sertraline (Verified Allergy, Unknown, UNKNOWN, 02/28/17) Sitagliptin (Verified Allergy, Unknown, HIVES, 02/28/17) Tetracyclines (Verified Adverse Reaction, Severe, HIVES, 02/28/17) Sulfa Antibiotics (Verified Adverse Reaction, Intermediate, MIGRAINES, ) Fexofenadine (Verified Adverse Reaction, Mild, GI SYMPTOMS, 02/28/17) Tizanidine (Verified Adverse Reaction, Mild, ITCHING-HIVES, 02/28/17) Home Medications Scheduled Aspirin (Aspirin Ec), 81 MG PO DAILY Baclofen (Lioresal), 10 MG PO TID Celecoxib (CeleBREX), 200 MG PO DAILY Duloxetine HCl (Duloxetine HCl), 30 MG PO BID Fluticasone Propionate (Nasal) (Flonase Allergy Relief), 2 SPRAYS [place]TON DAILY Home O2 Therapy (Oxygen), 3 LITERS NA DAYTIME Insulin Isophane (Human) (Novolin N Relion), 73 UNITS SQ AC Insulin Regular (Human) (Novolin R U-100), 33 UNITS SQ AC Levothyroxine Sodium (Levothyroxine Sodium), 100 MCG PO QAM Metformin HCl (Metformin HCl ER), 1,000 MG PO DAILY Metoprolol Succ (Toprol Xl) (Toprol-Xl), 25 MG PO DAILY Montelukast Sod (Montelukast Sodium), 10 MG PO HS Nystatin (Nystatin Cream), 1 APPLN TOP BID Pantoprazole (Pantoprazole Sodium), 40 MG PO QAM Polyethylene Glycol 3350 (Miralax), 17 GM PO BID Pregabalin (Lyrica), 200 MG PO TID Probiotic Product (Probiotic), 1 CAP PO HS Tiotropium [place] (Spiriva Handihaler), 1 PUFF INH QAM Ursodiol (Ursodiol), 600 MG PO BID Scheduled PRN Albuterol Hfa (Ventolin Hfa), 2 PUFFS INH QID PRN for SOB/Wheezing Albuterol Sulf (Proventil 0.083% 2.5MG/3ML), 1 VIAL NEB Q6H PRN for SOB/Wheezing Furosemide (Furosemide), 40 MG PO DAILY PRN for edema Lactulose (Chronulac), 15 ML PO DAILY PRN for Severe Constipation Miconazole Nitrate (Desenex Shake Powder), 1 APPLN TOP BID PRN for Affected Skin Folds Ondansetron Hcl (Zofran), 4 MG PO Q6H PRN for Nausea Sumatriptan Succinate (Imitrex), 100 MG PO UD PRN for Migraine Trazodone Hcl (Trazodone), 100 MG PO HS PRN for Sleep Triamcinolone Acet (Triamcinolone Acetonide), 1 APPLN TOP BID PRN for Redness and Itching Review of Systems ROS could not be obtained secondary to sedation, intubation, altered mental status. Physical Exam Date Time Temp Pulse Resp B/P (MAP) Pulse Ox O2 Delivery O2 Flow Rate FiO2 03/01/17 04:57 93 94 40 03/01/17 04:36 36.7 90 169/62 95 BiPAP 03/01/17 04:09 90 20 93 03/01/17 04:01 150/57 03/01/17 03:54 93 19 94 03/01/17 03:47 94 95 40 03/01/17 03:39 94 20 94 03/01/17 03:31 157/57 03/01/17 03:24 95 20 93 03/01/17 03:09 96 20 94 03/01/17 03:09 96 03/01/17 03:04 138/59 03/01/17 02:46 100 20 92 Nasal Cannula 4.0 03/01/17 02:31 102 22 172/56 92 03/01/17 02:16 101 20 92 03/01/17 02:01 99 21 150/56 93 03/01/17 01:50 123/59 03/01/17 01:46 100 23 92 03/01/17 01:31 99 24 92 03/01/17 01:16 96 25 92 03/01/17 01:01 97 26 92 03/01/17 00:46 94 23 91 03/01/17 00:41 96 24 92 03/01/17 00:26 97 25 92 03/01/17 00:11 95 24 92 03/01/17 00:01 129/81 02/28/17 23:56 95 20 93 02/28/17 23:41 94 24 93 02/28/17 23:39 94 02/28/17 23:36 95 22 95 Nasal Cannula 4.0 02/28/17 23:34 36.9 94 22 152/70 93 Nasal Cannula 4.0 02/28/17 23:31 152/70 Vital Signs - as noted Laboratory Data - as noted Physical Exam: General - Laying in bed with BiPap mask in place, unresponsive to verbal stimuli , moans to sternal rub Eyes - PERRL, No icterus, gaze conjugate ENT - Mucosa dry, no lesions or candidiasis Neck - Supple, trachea midline, no masses or lymphadenopathy, no JVD or bruits Lungs - No paradoxical chest wall movement, clear to auscultation in upper lung rojas bilaterally, significantly decreased breath sounds in mid/lower rojas, no wheezes, rales, or rhonchi Heart - RRR, No murmur, rubs, clicks, or gallops appreciated Abdomen - BS present, no bruits noted, tympanic to percussion, soft, nontender, nondistended, no organomegaly Extremities - No edema, pedal pulses intact Neuro - Glascow Coma Scale 5 Strength Not accessed Reflexes: Bicep, brachioradialis, patellar, and plantar normal and equal CN:PERRL, no facial asymmetry, uvula/tongue midline Laboratory Results Last 24 Hours Test 03/01/17 00:40 03/01/17 00:48 03/01/17 01:35 03/01/17 02:36 White Blood Count 13.80 K/uL Red Blood Count 5.30 M/uL Hemoglobin 12.9 g/dL Hematocrit 44.0 % Mean Corpuscular Volume 83.0 fL Mean Corpuscular Hemoglobin 24.3 pg Mean Corpuscular Hemoglobin Concent 29.3 g/dl Platelet Count 157 K/uL Mean Platelet Volume 11.2 fL Neutrophils (%) (Auto) 79.9 % Lymphocytes (%) (Auto) 9.0 % Monocytes (%) (Auto) 7.2 % Eosinophils (%) (Auto) 1.6 % Basophils (%) (Auto) 0.2 % Neutrophils # (Auto) 11.03 K/uL Lymphocytes # (Auto) 1.24 K/uL Monocytes # (Auto) 0.99 K/uL Eosinophils # (Auto) 0.22 K/uL Basophils # (Auto) 0.03 K/uL RDW Standard Deviation 55.8 fL RDW Coefficient of Variation 18.3 % Immature Granulocyte % (Auto) 2.1 % Immature Granulocyte # (Auto) 0.29 K/uL Nucleated RBC Absolute Count (auto) 0.02 K/uL Nucleated Red Blood Cells % 0.1 % Prothrombin Time 10.1 SECONDS Prothromb Time International Ratio 1.0 Activated Partial Thromboplast Time 39.6 SECONDS Partial Thromboplastin Ratio 1.5 Sodium Level 142 mmol/L Potassium Level 4.3 mmol/L Chloride Level 101 mmol/L Carbon Dioxide Level 40 mmol/L Anion Gap 1.0 mmol/L Blood Urea Nitrogen 12 mg/dl Creatinine 0.58 mg/dl Est Creatinine Clear Calc Drug Dose 153.9 ml/min Estimated GFR () 110.5 Estimated GFR (Non- 95.4 BUN/Creatinine Ratio 20.1 Random Glucose 88 mg/dl Calcium Level 8.8 mg/dl Total Bilirubin 0.4 mg/dl 0.3 mg/dl Aspartate Amino Transf (AST/SGOT) 21 U/L 25 U/L Alanine Aminotransferase (ALT/SGPT) 27 U/L 26 U/L Alkaline Phosphatase 92 U/L 90 U/L Troponin I < 0.015 ng/ml Total Protein 7.3 gm/dl 7.1 gm/dl Albumin 3.4 gm/dl 3.3 gm/dl Globulin 3.9 gm/dl Albumin/Globulin Ratio 0.9 Bedside Lactic Acid Venous 0.62 mmol/L Urine Color YELLOW Urine Appearance CLEAR Urine pH 5.0 Urine Specific [place] 1.020 Urine Protein 1+ Urine Glucose (UA) NEG Urine Ketones NEG Urine Occult Blood 3+ Urine Nitrite NEG Urine Bilirubin NEG Urine Urobilinogen NEG Urine Leukocyte Esterase NEG Urine WBC (Auto) 1-5 /hpf Urine RBC (Auto) 10-30 /hpf Urine Hyaline Casts (Auto) 1-5 /lpf Urine Epithelial Cells (Auto) 0-5 /lpf Urine Bacteria (Auto) NEG Direct Bilirubin < 0.1 mg/dl Ammonia 35.0 umol/L Test 03/01/17 02:37 Arterial Blood pH 7.13 Arterial Blood Partial Pressure CO2 115 mmHg Arterial Blood Partial Pressure O2 74 mm/Hg Arterial Blood HCO3 37 mmol/L Arterial Blood Oxygen Saturation 92.1 % Arterial Blood Base Excess 4.8 mEq/L Arterial Blood Gas Delivery 4.5 L Bill Test POS Diagnostic Results CXR: Vascular congestion noted, continue small left pleural effusion. Head CT: No acute intracranially process noted. Assessment & Plan Reason Critically Ill: Patient is an 66-year-old female who is transferred to the ICU for hypercapnic respiratory failure likely secondary to obesity hypoventilation syndrome. Work of head CT and infectious process negative to date. PLAN: Neuro: * Continue home Lyrica * Pain Management: hold sedation type medications * Versed Infusion and Fentanyl PRN push: GOAL RASS 0 Resp: * Pt intubated by Dr. Aggarwal with 7.5 ET tube, 24cm at the lip * AC 18/500/40/5 * Repeat ABG @ 0700 * Pt aroused more after intubation, monitor CO2 level * Continue home respiratory regimen * Daily weaning/sedation trial * Daily CXR and ABG * Continue home lasix regimen as indicated CV: * NSR on telemetry * Continue BB and ASA * EKG with chest pain Fluids/Renal: * BUN/Cr: 12/0.58 * Ferrlel to gravity inserted * NSS ID: * Hx of UTIs, U/A negative this admission * WBC: 13.8, Afebrile * Lactic Acid 0.62 * Blood Cultures pending GI/Nutrition: * LFTs WNL * Albumin 3.3 * Ammonia 35 (below baseline of prior admissions) * Prophylaxis: Ordered Heme: * H&H: 12.9/44; Plts: 157 * Coags: aaPTT 39.6; PT/INR: 10.1/1.0 * Daily CBC * Prophylaxis: Lovenox Endocrine: * Accu-Checks per protocol, started insulin infusion for 2 blood sugars greater than 180 * DM 2: Metformin held now * Will order ISS * Thyroid disease known: Continue 100mcg PO qAM CCT: 60 Minutes; This time is exclusive of all separately billable procedures. Thank you for involving us in the care of this patient. Please refer to Dr. Kendrick Love's addendum for further recommendations.
[2017-03-01] MEDS ORDERED: PROPOFOL IV EMULSION 10 MG/ML 100 ML VIAL IV ONE (05:41)
[2017-03-01] MEDS ORDERED: SUCCINYLCHOLINE CHLORIDE 20 MG/ML 10 ML VIAL IV ONE (06:05)
--- NOTE | 2017-03-01 06:11 | Procedure Note ---
Procedure Note Procedure Date Mar 01, 2017. Procedure Description Procedure time out: side/site verified, patient ID confirmed, correct procedure Consent obtained: emergent consent implied Performed by: attending Indications: therapeutic Contraindications: none Description: The patient is a 66 y/o morbidly obese patient who presented to the ER with lethargy who became progressively unresponsive in the ER due to hypoventilation/ hypercapnia respiratory failure. Other PMH includes diastolic heart failure, HTN, sleep apnea, cerebrovascular disease, asthma, Crohn's, depression, type 2 DM, and hypothyroidism. I was called to the ICU to assist with intubating the patient. Upon my arrival the patient was unresponsive to verbal stimuli and difficult to arouse with noxious stimuli. She had a BiPap mask on with a respiratory rate of 16. SpO2 was 95, BP 160s/90s, HR 80s. The patient was noted to be morbidly obese with a very thick neck. Teeth were intact. On my direction the nursing staff pushed propofol 150 mg and succinylcholine 160 mg IV. The respiratory therapist removed the Bipap and mask ventilated the patient with an Ambu bag for about 20 seconds. The patient quickly began to desaturate. Using the Glidescope #4 a good view was obtained of the airway. The ETT was inferior to the the airway on the first attempt so the Glidescope was repositioned and the ETT was successfully placed on the second attempt. ETT was 7.5 with suction port placed 21 cm at the mouth. Placement was confirmed by EZ cap and bilateral breath sounds. The patient's SpO2 reached the 60s for but quickly rebounded to the 90s with ventilation through the ETT. The whole procedure took less than thirty seconds. The ETT was secured by respiratory therapy. CXR was ordered by the ICU team to confirm placement. The patient's vital signs remained stable. Within ten minutes of the ETT being placed the patient woke up and was attempting to pull the ETT so sedation was ordered by the ICU team. Complications: none Patient tolerated procedure: well Post-procedure vital signs: reviewed and stable
[2017-03-01] MEDS: MIDAZOLAM 125MG/250ML D5W 250 ML IV PRN ×2 (06:21→18:53)
[2017-03-01] MEDS: FENTANYL CITRATE INJ 50 MCG/1 ML 2 ML VIAL IV PRN ×3 (06:24→20:50)
--- NOTE | 2017-03-01 06:35 | DIAGNOSTIC IMAGING REPORT ---
HEAD WITHOUT CONTRAST (CT) CLINICAL HISTORY: 66 years-old Female with altered ms. Acutely altered mental status TECHNIQUE: Multiple axial CT images of the head were obtained without contrast. A dose lowering technique was utilized adhering to the principles of ALARA. CT DOSE: 958.25 mGy.cm COMPARISON: Head CT 11/19/2016. FINDINGS: No acute intracranial hemorrhage, midline shift, intracranial mass, hydrocephalus, territorial ischemia or abnormal extra-axial collection. The exam is at least moderately limited study secondary to motion artifact. The calvarium is intact. The paranasal sinuses, mastoid air cells, and middle ear cavities are clear. Minimal right parietal scalp soft tissue swelling. IMPRESSION: Limited study as above without acute intracranial abnormality. The above report was generated using voice recognition software. It may contain grammatical, syntax or spelling errors. Electronically signed by: Oscar Turpin M.D. 03/01/2017 6:34 AM Dictated Date/Time: 03/01/2017 6:32 AM
[2017-03-01] MEDS ORDERED: ALBUTEROL HFA 8 GM INHALER INH PRN (07:00)
[2017-03-01] MEDS ORDERED: FUROSEMIDE 40 MG TAB PO PRN (07:00)
[2017-03-01] MEDS ORDERED: MICONAZOLE NITRATE POWDER 43 GM EXT PRN (07:00)
[2017-03-01] MEDS ORDERED: ENOXAPARIN 1 MG/KG SQ SCH (07:00)
--- NOTE | 2017-03-01 07:55 | DIAGNOSTIC IMAGING REPORT ---
CHEST ONE VIEW PORTABLE HISTORY: Sepsis COMPARISON: Chest 11/19/2016. FINDINGS: There are low lung volumes. The heart remains enlarged. Small left pleural effusion and left basilar densities persist. There is mild pulmonary vascular congestion, unchanged. No pneumothorax. Linear density right lung base favor subsegmental atelectasis. IMPRESSION: 1. No change in the small left pleural effusion and left basilar opacities. This may represent atelectasis or pneumonia. 2. Mild pulmonary vascular congestion and mild cardiomegaly are again noted. Electronically signed by: Rah Lutz M.D. 03/01/2017 7:54 AM Dictated Date/Time: 03/01/2017 7:52 AM
--- NOTE | 2017-03-01 08:01 | DIAGNOSTIC IMAGING REPORT ---
CHEST ONE VIEW PORTABLE HISTORY: Intubated COMPARISON: Chest 03/01/2017. FINDINGS: Endotracheal tube terminates approximately 2 cm from the markel. Nasogastric tube terminates below the diaphragm. No pneumothorax. Mild pulmonary vascular congestion and mild cord megaly persist. Small left pleural fusion left basilar densities, unchanged. Linear densities the right lung base are also noted. IMPRESSION: 1. Satisfactory support line placement. 2. No change in the small left pleural effusion, left basilar densities, mild congestive change. Electronically signed by: Rah Lutz M.D. 03/01/2017 8:00 AM Dictated Date/Time: 03/01/2017 7:59 AM
[2017-03-01] MEDS: FLUTICASONE PROPIONATE NA SPR 16 GM BTL NAE SCH (08:10)
[2017-03-01] MEDS: TIOTROPIUM BROMIDE 5 PUFF/90 MCG INH INH SCH (08:10)
[2017-03-01] MEDS: LEVOTHYROXINE 100 MCG TAB PO SCH (08:11)
[2017-03-01] MEDS: URSODIOL 300 MG CAP PO SCH ×2 (08:11→18:55)
[2017-03-01] MEDS: NYSTATIN CR 15 GM TUBE EXT SCH ×2 (08:11→18:54)
[2017-03-01] MEDS: METOPROLOL SUCC 25MG EXT REL TAB PO SCH (08:12)
[2017-03-01] MEDS ORDERED: PHARMACY GLYCEMIC MGMT CONSULT PRN (08:15)
--- NOTE | 2017-03-01 08:16 | Progress Note ---
Internal Med Progress Note Date of Service: Mar 01, 2017. Provider Documentation: SUBJECTIVE: Seen and examined at bedside Currently sedated and Intubated Afebrile Respiratory status improved since time of admission OBJECTIVE: Vital Signs-as noted below Physical Exam: General Appearance:Obese, no apparent distress, Sedated and Intubated Head: normocephalic, Atraumatic Eyes: normal inspection, EOMI, PERRL Neck: supple, Trachea midline Respiratory/Chest: Decreased breath sounds, CTA Cardiovascular: S1, S2, No murmur Abdomen/GI:Soft, Non tender, Bowel sounds present Extremities/Musculoskelatal:normal inspection, Trace edema Neurologic/Psych: Sedated and Intubated Skin: normal color, warm Lab data as noted below. ASSESSMENT & PLAN: Acute respiratory failure/Hypercarbia/Hypoxia Metabolic Encephalopathy: Acute respiratory acidosis CT: no acute intracranial findings Respiratory support per ICU team CXR:small left pleural effusion, left basilar densities, mild congestive change Blood cultures: pending Continue home inhalers Lactate:normal Further management per ICU team H/O Diastolic Heart failure Continue Metoprolol, Lasix PRN DM II Last A1C: 7.1 in Nov 2016 Continue Insulin Monitor Blood sugar levels Hypothyroidism: Continue Levothyroxine Morbid Obesity: BMI:53.1 DVT Px: on Lovenox Disposition: Monitor in ICU Family Contact: Uri [phone] Vital Signs: Date Time Temp Pulse Resp B/P (MAP) Pulse Ox O2 Delivery O2 Flow Rate FiO2 03/01/17 06:21 40 03/01/17 06:01 83 19 157/50 (85) 92 Mechanical Ventilator 40 03/01/17 05:44 89 18 166/64 (98) 03/01/17 05:00 93 24 169/62 (97) 94 BiPAP 40.0 03/01/17 04:57 93 94 40 03/01/17 04:51 36.7 91 17 151/67 (95) 92 BiPAP 40.0 03/01/17 04:36 36.7 90 169/62 95 BiPAP 03/01/17 04:09 90 20 93 03/01/17 04:01 150/57 03/01/17 03:54 93 19 94 03/01/17 03:47 94 95 40 03/01/17 03:39 94 20 94 03/01/17 03:31 157/57 03/01/17 03:24 95 20 93 03/01/17 03:09 96 20 94 03/01/17 03:09 96 03/01/17 03:04 138/59 03/01/17 02:46 100 20 92 Nasal Cannula 4.0 03/01/17 02:31 102 22 172/56 92 03/01/17 02:16 101 20 92 03/01/17 02:01 99 21 150/56 93 03/01/17 01:50 123/59 03/01/17 01:46 100 23 92 03/01/17 01:31 99 24 92 03/01/17 01:16 96 25 92 03/01/17 01:01 97 26 92 03/01/17 00:46 94 23 91 03/01/17 00:41 96 24 92 03/01/17 00:26 97 25 92 03/01/17 00:11 95 24 92 03/01/17 00:01 129/81 02/28/17 23:56 95 20 93 02/28/17 23:41 94 24 93 02/28/17 23:39 94 02/28/17 23:36 95 22 95 Nasal Cannula 4.0 02/28/17 23:34 36.9 94 22 152/70 93 Nasal Cannula 4.0 02/28/17 23:31 152/70 Lab Results: Results Past 24 Hours Test 03/01/17 00:40 03/01/17 00:48 03/01/17 01:35 03/01/17 02:36 Range/Units White Blood Count 13.80 4.8-10.8 K/uL Red Blood Count 5.30 4.2-5.4 M/uL Hemoglobin 12.9 12.0-16.0 g/dL Hematocrit 44.0 37-47 % Mean Corpuscular Volume 83.0 80-100 fL Mean Corpuscular Hemoglobin 24.3 25-34 pg Mean Corpuscular Hemoglobin Concent 29.3 32-36 g/dl Platelet Count 157 130-400 K/uL Mean Platelet Volume 11.2 7.4-10.4 fL Neutrophils (%) (Auto) 79.9 % Lymphocytes (%) (Auto) 9.0 % Monocytes (%) (Auto) 7.2 % Eosinophils (%) (Auto) 1.6 % Basophils (%) (Auto) 0.2 % Neutrophils # (Auto) 11.03 1.4-6.5 K/uL Lymphocytes # (Auto) 1.24 1.2-3.4 K/uL Monocytes # (Auto) 0.99 0.11-0.59 K/uL Eosinophils # (Auto) 0.22 0-0.5 K/uL Basophils # (Auto) 0.03 0-0.2 K/uL RDW Standard Deviation 55.8 36.4-46.3 fL RDW Coefficient of Variation 18.3 11.5-14.5 % Immature Granulocyte % (Auto) 2.1 % Immature Granulocyte # (Auto) 0.29 0.00-0.02 K/uL Nucleated RBC Absolute Count (auto) 0.02 0-0 K/uL Nucleated Red Blood Cells % 0.1 % Prothrombin Time 10.1 9.0-12.0 SECONDS Prothromb Time International Ratio 1.0 0.9-1.1 Activated Partial Thromboplast Time 39.6 21.0-31.0 SECONDS Partial Thromboplastin Ratio 1.5 Sodium Level 142 136-145 mmol/L Potassium Level 4.3 3.5-5.1 mmol/L Chloride Level 101 98-107 mmol/L Carbon Dioxide Level 40 21-32 mmol/L Anion Gap 1.0 3-11 mmol/L Blood Urea Nitrogen 12 7-18 mg/dl Creatinine 0.58 0.60-1.20 mg/dl Est Creatinine Clear Calc Drug Dose 153.9 ml/min Estimated GFR () 110.5 Estimated GFR (Non- 95.4 BUN/Creatinine Ratio 20.1 10-20 Random Glucose 88 70-99 mg/dl Calcium Level 8.8 8.5-10.1 mg/dl Total Bilirubin 0.4 0.3 0.2-1 mg/dl Aspartate Amino Transf (AST/SGOT) 21 25 15-37 U/L Alanine Aminotransferase (ALT/SGPT) 27 26 12-78 U/L Alkaline Phosphatase 92 90 45-117 U/L Troponin I < 0.015 0-0.045 ng/ml Total Protein 7.3 7.1 6.4-8.2 gm/dl Albumin 3.4 3.3 3.4-5.0 gm/dl Globulin 3.9 2.5-4.0 gm/dl Albumin/Globulin Ratio 0.9 0.9-2 Bedside Lactic Acid Venous 0.62 0.90-1.70 mmol/L Urine Color YELLOW Urine Appearance CLEAR CLEAR Urine pH 5.0 4.5-7.5 Urine Specific [place] 1.020 1.000-1.030 Urine Protein 1+ NEG Urine Glucose (UA) NEG NEG Urine Ketones NEG NEG Urine Occult Blood 3+ NEG Urine Nitrite NEG NEG Urine Bilirubin NEG NEG Urine Urobilinogen NEG NEG Urine Leukocyte Esterase NEG NEG Urine WBC (Auto) 1-5 0-5 /hpf Urine RBC (Auto) 10-30 0-4 /hpf Urine Hyaline Casts (Auto) 1-5 0-5 /lpf Urine Epithelial Cells (Auto) 0-5 0-5 /lpf Urine Bacteria (Auto) NEG NEG Direct Bilirubin < 0.1 0-0.2 mg/dl Ammonia 35.0 11-32 umol/L Test 03/01/17 02:37 03/01/17 07:22 Range/Units Arterial Blood pH 7.13 7.35-7.45 Arterial Blood Partial Pressure CO2 115 35-46 mmHg Arterial Blood Partial Pressure O2 74 80-95 mm/Hg Arterial Blood HCO3 37 19-24 mmol/L Arterial Blood Oxygen Saturation 92.1 90-95 % Arterial Blood Base Excess 4.8 -9-1.8 mEq/L Arterial Blood Gas Delivery 4.5 L Bill Test POS Pass Blood Gas Sample Site R Radial Bedside Blood Gas pH (LAB) 7.35 7.35-7.45 Bedside Blood Gas pCO2 (LAB) 68 35-46 mmHg Bedside Blood Gas pO2 (LAB) 78 80-95 mmHg Bedside Blood Gas HCO3 (LAB) 38 19-24 meq/L Bedside Blood Gas Total CO2 > 40 24-31 mEq/l Bedside Blood Gas Base Excess (LAB) 12.0 -9-1.8 meq/L Bedside Blood Gas O2 Saturation 94.0 90-95 % Oxygen Delivery Device Ventilator Bedside Oxygen Rate (breaths/min) 18 Blood Gas Minute Ventilation 9 Bedside FiO2 40 % Blood Gas Tidal Volume 500 Blood Gas PEEP 5 Microbiology Results 03/01/17 Blood Culture, Received Pending 03/01/17 Blood Culture, Received Pending 03/01/17 MRSA DNA Surveillance Screen - Final, Complete Specimen Negative for MRSA by DNA Probe
[2017-03-01] MEDS ORDERED: ASPIRIN 81 MG ECTAB PO SCH ×2 (09:00)
[2017-03-01] MEDS ORDERED: PANTOprazole SOD 40 MG TAB PO SCH (09:00)
[2017-03-01] MEDS: INSULIN ASPART 100 UNITS/ML 3 ML PEN SC SCH ×4 (09:42→19:38)
--- NOTE | 2017-03-01 09:43 | Pharmacy Progress Note ---
Glycemic Control Intl Consult Date of Service Mar 01, 2017. Scope Glycemic Pharmacist consulted by Dr Duncan on 03/01/17 for glycemic control and to write orders per [facility] inpatient glycemic control protocol Objective Weight (Kilograms): 158.300 Accuchecks BSG (last 24hrs): Test 03/01/17 00:40 Random Glucose 88 mg/dl (70-99) Laboratory Data (last 24hrs) Test 03/01/17 00:40 Anion Gap 1.0 mmol/L BUN/Creatinine Ratio 20.1 Blood Urea Nitrogen 12 mg/dl Creatinine 0.58 mg/dl Potassium Level 4.3 mmol/L Sodium Level 142 mmol/L White Blood Count 13.80 K/uL Red Blood Count 5.30 M/uL Hemoglobin 12.9 g/dL Hematocrit 44.0 % Mean Corpuscular Volume 83.0 fL Mean Corpuscular Hemoglobin 24.3 pg Mean Corpuscular Hemoglobin Concent 29.3 g/dl Platelet Count 157 K/uL Mean Platelet Volume 11.2 fL Neutrophils (%) (Auto) 79.9 % Lymphocytes (%) (Auto) 9.0 % Monocytes (%) (Auto) 7.2 % Eosinophils (%) (Auto) 1.6 % Basophils (%) (Auto) 0.2 % Neutrophils # (Auto) 11.03 K/uL Lymphocytes # (Auto) 1.24 K/uL Monocytes # (Auto) 0.99 K/uL Eosinophils # (Auto) 0.22 K/uL Basophils # (Auto) 0.03 K/uL Recent Pertinent Medications Outpatient Anti-diabetic Regimen: * Novolin N Relion 73 units SC AC * Insulin regular 33 untis SC AC * Metformin ER 1000 mg po daily * A1c on order for 03/02/17. Last was 7.1% on 11/20/16. Risk Factors for Insulin Resistance: * Mechanical Ventilation Assessment & Plan ASSESSMENT: * 66 yo F with T2DM well-known to our service admitted to ICU for acute respiratory failure. Patient is currently intubated and NPO. * History of severe allergy to some types of insulin - patient tolerates NPH and Novolog per previous admissions therefore will use again * Previous admission November 2016 * Patient received ~130-150 units of insulin per day * ~50/50 split of NPH/Novolog * BSG's usually ranged 100-180 mg/dL * Patient consumed ~40-60g CHO per meal * Differences this admission: patient may have more physiologic stress 2nd intubation/respiratory failure but is also NPO * BSG 88 mg/dL random this AM. BSG's slowly creeping up (132 mg/dL ~0900, 160 mg/dL ~1300). * Held NPH for now while patient NPO and BSG's below goal range. OK to initiate now that BSG's are in goal range. Will dose at slightly less than 1/2 of what patient required on previous admissions. OK to re-dose in 12 hours based on BSG. * Will initiate Novolog similar to previous admission, but dose more frequently at q4h as basal insulin is significantly less aggressive due to lower BSG on admit and NPO status PLAN FOR INPATIENT GLYCEMIC CONTROL: * Hold outpatient oral diabetes medication - metformin * Basal insulin with NPH 10 units SC x1 now then at 0000 based on BSG as follows * 0 units for BSG less than 120 mg/dL * 10 units for BSG 120-160 mg/dL * 15 units for BSG 160-200 mg/dL * 20 units for BSG greater than 200 mg/dL * Correctional Insulin with NOVOLOG per scale Q4hrs while NPO * Goal Range: Low 120 mg/dL - High 160 mg/dL * Correction Factor: 10 mg/dL/unit * Nutritional / Prandial insulin per carb ratio of 1 unit per 3 grams CHO consumed * Please note that the plan above was derived based on current level of insulin resistance and hospital stress. These recommendations are appropriate for inpatient admission only. Plan of care upon discharge will need to be reassessed to avoid potential outpatient hypo/hyperglycemia. Thank you.
[2017-03-01] MEDS: ASPIRIN 81 MG CHEW PO SCH (09:45)
[2017-03-01] MEDS: LANSOPRAZOLE SOLUTAB 30 MG PO SCH (09:45)
--- NOTE | 2017-03-01 09:47 | Critical Care Progress Note ---
Critical Care Progress Note Date of Service Mar 01, 2017. ICU Day ICU Day Number: [address] Duncan Subjective Admitted this morning with hypoventilation and respiratory failure. Required intubation. How awake and alert. Volume status correction in place. Appropriate coverage noted. This is the first intubation I know of regarding her hypoventilation. No target pain. No new focal neuro event suggested. Agree with PA noted and review. Treatment plan is appropriate. No plan for extubation today. Sedation/Pain control in place. Objective VSS HEENT--no focal changes Pulmonary--exchange is adequate but clinically acceptable Cardio--rate and volume ok GI--functional and nontender--rotund --Ferrell to gravity Musculo--no target Neuro--awake and alert--without focal changes. Derm--no active lesion Assessment & Plan Hypoventilation and Respiratory Failure: 1- Respiratory--supportive for now. Agree with current approach 2-Cardio--exchange is good--continue to track urine out 3-GI--functional and nontender--support 4. Neuro--Benzo/Fentanyl for now---no new target Data Medications: Current Inpatient Medications Medications (Trade) Dose Ordered Sig/Keith Route Start Time Stop Time Status Last Admin Dose Admin Fentanyl Citrate (Fentanyl Inj) 50 mcg Q1H PRN IV 03/01/17 06:15 03/15/17 06:14 03/01/17 06:24 50 MCG Midazolam HCl 250 ml @ 0 mls/hr Q0M PRN IV 03/01/17 06:03 03/31/17 06:02 03/01/17 06:21 4 MLS/HR Albuterol (Ventolin Hfa Inhaler) 2 puffs QID PRN INH 03/01/17 07:00 03/31/17 06:59 Fluticasone Propionate (Flonase Nasal [place]) 2 sprays DAILY ANTON 03/01/17 09:00 03/31/17 08:59 Furosemide (Lasix Tab) 40 mg DAILY PRN PO 03/01/17 07:00 03/31/17 06:59 03/01/17 08:12 40 MG Levothyroxine Sodium (Synthroid Tab) 100 mcg DAILYBB PO 03/01/17 07:45 03/31/17 07:44 03/01/17 08:11 100 MCG Metoprolol Succinate (Toprol Xl Tab) 25 mg DAILY PO 03/01/17 09:00 03/31/17 08:59 03/01/17 08:12 25 MG Miconazole Nitrate (Desenex Powder) 1 appln BID PRN EXT 03/01/17 07:00 03/31/17 06:59 Montelukast Sodium (Singulair Tab) 10 mg HS PO 03/01/17 21:00 03/31/17 20:59 Nystatin (Mycostatin Crm) 1 appln BID EXT 03/01/17 09:00 03/31/17 08:59 03/01/17 08:11 1 APPLN Ondansetron HCl (Zofran Tab) 4 mg Q6H PRN PO 03/01/17 07:00 03/31/17 06:59 Tiotropium Raymond (Spiriva Handihaler Inhaler) 1 puff QAM INH 03/01/17 09:00 03/31/17 08:59 Ursodiol (Actigall Cap) 600 mg BID PO 03/01/17 09:00 03/31/17 08:59 03/01/17 08:11 600 MG Miscellaneous Information (Consult Glycemic Management Pharmacy) 1 ea UD PRN N/A 03/01/17 08:15 03/31/17 08:14 Aspirin (Aspirin Chew) 81 mg DAILY PO 03/01/17 09:00 03/31/17 08:59 Lansoprazole (Prevacid Solutab) 30 mg QAM PO 03/01/17 09:00 03/31/17 08:59 Insulin Aspart (novoLOG ASPART) SLIDING SCALE Q6 SC 03/01/17 09:11 03/31/17 09:10 Enoxaparin Sodium (Lovenox Inj) 40 mg DAILY SQ 03/01/17 10:30 03/31/17 10:29 Vital Signs: Date Time Temp Pulse Resp B/P (MAP) Pulse Ox O2 Delivery O2 Flow Rate FiO2 03/01/17 08:37 40 03/01/17 08:00 37.2 84 18 136/57 (83) 97 Mechanical Ventilator 40 03/01/17 08:00 40 03/01/17 08:00 97 Mechanical Ventilator 40 03/01/17 06:21 40 03/01/17 06:01 83 19 157/50 (85) 92 Mechanical Ventilator 40 03/01/17 05:44 89 18 166/64 (98) 03/01/17 05:00 93 24 169/62 (97) 94 BiPAP 40.0 03/01/17 04:57 93 94 40 03/01/17 04:51 36.7 91 17 151/67 (95) 92 BiPAP 40.0 03/01/17 04:36 36.7 90 169/62 95 BiPAP 03/01/17 04:09 90 20 93 03/01/17 04:01 150/57 03/01/17 03:54 93 19 94 03/01/17 03:47 94 95 40 03/01/17 03:39 94 20 94 03/01/17 03:31 157/57 03/01/17 03:24 95 20 93 03/01/17 03:09 96 20 94 03/01/17 03:09 96 03/01/17 03:04 138/59 03/01/17 02:46 100 20 92 Nasal Cannula 4.0 03/01/17 02:31 102 22 172/56 92 03/01/17 02:16 101 20 92 03/01/17 02:01 99 21 150/56 93 03/01/17 01:50 123/59 03/01/17 01:46 100 23 92 03/01/17 01:31 99 24 92 03/01/17 01:16 96 25 92 03/01/17 01:01 97 26 92 03/01/17 00:46 94 23 91 03/01/17 00:41 96 24 92 03/01/17 00:26 97 25 92 03/01/17 00:11 95 24 92 03/01/17 00:01 129/81 02/28/17 23:56 95 20 93 02/28/17 23:41 94 24 93 02/28/17 23:39 94 02/28/17 23:36 95 22 95 Nasal Cannula 4.0 02/28/17 23:34 36.9 94 22 152/70 93 Nasal Cannula 4.0 02/28/17 23:31 152/70 Laboratory Results: Last 24 Hours Test 03/01/17 00:40 03/01/17 00:48 03/01/17 01:35 03/01/17 02:36 White Blood Count 13.80 K/uL Red Blood Count 5.30 M/uL Hemoglobin 12.9 g/dL Hematocrit 44.0 % Mean Corpuscular Volume 83.0 fL Mean Corpuscular Hemoglobin 24.3 pg Mean Corpuscular Hemoglobin Concent 29.3 g/dl Platelet Count 157 K/uL Mean Platelet Volume 11.2 fL Neutrophils (%) (Auto) 79.9 % Lymphocytes (%) (Auto) 9.0 % Monocytes (%) (Auto) 7.2 % Eosinophils (%) (Auto) 1.6 % Basophils (%) (Auto) 0.2 % Neutrophils # (Auto) 11.03 K/uL Lymphocytes # (Auto) 1.24 K/uL Monocytes # (Auto) 0.99 K/uL Eosinophils # (Auto) 0.22 K/uL Basophils # (Auto) 0.03 K/uL RDW Standard Deviation 55.8 fL RDW Coefficient of Variation 18.3 % Immature Granulocyte % (Auto) 2.1 % Immature Granulocyte # (Auto) 0.29 K/uL Nucleated RBC Absolute Count (auto) 0.02 K/uL Nucleated Red Blood Cells % 0.1 % Prothrombin Time 10.1 SECONDS Prothromb Time International Ratio 1.0 Activated Partial Thromboplast Time 39.6 SECONDS Partial Thromboplastin Ratio 1.5 Sodium Level 142 mmol/L Potassium Level 4.3 mmol/L Chloride Level 101 mmol/L Carbon Dioxide Level 40 mmol/L Anion Gap 1.0 mmol/L Blood Urea Nitrogen 12 mg/dl Creatinine 0.58 mg/dl Est Creatinine Clear Calc Drug Dose 153.9 ml/min Estimated GFR () 110.5 Estimated GFR (Non- 95.4 BUN/Creatinine Ratio 20.1 Random Glucose 88 mg/dl Calcium Level 8.8 mg/dl Total Bilirubin 0.4 mg/dl 0.3 mg/dl Aspartate Amino Transf (AST/SGOT) 21 U/L 25 U/L Alanine Aminotransferase (ALT/SGPT) 27 U/L 26 U/L Alkaline Phosphatase 92 U/L 90 U/L Troponin I < 0.015 ng/ml Total Protein 7.3 gm/dl 7.1 gm/dl Albumin 3.4 gm/dl 3.3 gm/dl Globulin 3.9 gm/dl Albumin/Globulin Ratio 0.9 Bedside Lactic Acid Venous 0.62 mmol/L Urine Color YELLOW Urine Appearance CLEAR Urine pH 5.0 Urine Specific [place] 1.020 Urine Protein 1+ Urine Glucose (UA) NEG Urine Ketones NEG Urine Occult Blood 3+ Urine Nitrite NEG Urine Bilirubin NEG Urine Urobilinogen NEG Urine Leukocyte Esterase NEG Urine WBC (Auto) 1-5 /hpf Urine RBC (Auto) 10-30 /hpf Urine Hyaline Casts (Auto) 1-5 /lpf Urine Epithelial Cells (Auto) 0-5 /lpf Urine Bacteria (Auto) NEG Direct Bilirubin < 0.1 mg/dl Ammonia 35.0 umol/L Test 03/01/17 02:37 03/01/17 07:22 Arterial Blood pH 7.13 Arterial Blood Partial Pressure CO2 115 mmHg Arterial Blood Partial Pressure O2 74 mm/Hg Arterial Blood HCO3 37 mmol/L Arterial Blood Oxygen Saturation 92.1 % Arterial Blood Base Excess 4.8 mEq/L Arterial Blood Gas Delivery 4.5 L Bill Test POS Pass Blood Gas Sample Site R Radial Bedside Blood Gas pH (LAB) 7.35 Bedside Blood Gas pCO2 (LAB) 68 mmHg Bedside Blood Gas pO2 (LAB) 78 mmHg Bedside Blood Gas HCO3 (LAB) 38 meq/L Bedside Blood Gas Total CO2 > 40 mEq/l Bedside Blood Gas Base Excess (LAB) 12.0 meq/L Bedside Blood Gas O2 Saturation 94.0 % Oxygen Delivery Device Ventilator Bedside Oxygen Rate (breaths/min) 18 Blood Gas Minute Ventilation 9 Bedside FiO2 40 % Blood Gas Tidal Volume 500 Blood Gas PEEP 5
[2017-03-01] MEDS: ENOXAPARIN 40 MG/0.4 ML SYR SQ SCH (10:11)
[2017-03-01] MEDS ORDERED: INSULIN HUMAN REGULAR SQ SCH (11:00)
[2017-03-01] MEDS ORDERED: INSULIN HUMAN NPH SQ SCH (11:00)
[2017-03-01] MEDS ORDERED: INSULIN HUMAN NPH SC ONE (13:15)
[2017-03-01] MEDS: ERTAPENEM IV 1 GM in SODIUM CHLOR 0.9% AD-VAN 50ML 50 ML IV SCH (18:52)
[2017-03-01] MEDS: MONTELUKAST SOD 10 MG TAB PO SCH (18:55)
[2017-03-01] MEDS ORDERED: ACETAMINOPHEN SOLN 325 MG/10.15 ML UDC ONE (19:36)
[2017-03-01] MEDS ORDERED: ACETAMINOPHEN SOLN 650MG/20.3 ML UDC PO PRN (19:45)
[2017-03-02] VITALS (28 sets, daily range): BP systolic 130–211; BP diastolic 52–94; PULSE 76–117; TEMP 36.7–37.6; O2SAT 91–97
[2017-03-02] MEDS ORDERED: INSULIN HUMAN NPH SC ONE
[2017-03-02] MEDS: INSULIN ASPART 100 UNITS/ML 3 ML PEN SC SCH ×6 (00:39→20:42)
[2017-03-02] MEDS: FENTANYL CITRATE INJ 50 MCG/1 ML 2 ML VIAL IV PRN ×3 (00:56→12:07)
[2017-03-02] MEDS: LEVOTHYROXINE 100 MCG TAB PO SCH (05:13)
[2017-03-02 05:40] LABS: HEMATOCRIT 37.3 % (37-47); HEMOGLOBIN 11.1 g/dL (12.0-16.0); MEAN CELL VOLUME 79.2 fL (80-100); MEAN CORPUSCULAR HEMOGLOBIN 23.6 pg (25-34); MEAN CORPUSCULAR HGB CONC 29.8 g/dl (32-36); MEAN PLATELET VOLUME 11.3 fL (7.4-10.4); PLATELET COUNT 153 K/uL (130-400); RED CELL DISTRIBUTION WIDTH CV 17.9 % (11.5-14.5); RED CELL DISTRIBUTION WIDTH SD 51.6 fL (36.4-46.3)
[2017-03-02 06:15] LABS: CALCIUM 8.4 mg/dl (8.5-10.1); CREATININE 0.56 mg/dl (0.60-1.20); POTASSIUM 2.8 mmol/L (3.5-5.1)
[2017-03-02 06:23] LABS: PHOSPHORUS 1.2 mg/dl (2.5-4.9)
[2017-03-02 06:25] LABS: HEMOGLOBIN A1C 7.7 % (4.5-5.6)
[2017-03-02] MEDS ORDERED: POTASSIUM PHOS 3 MMOL/1 ML INFUSION IV STA (06:27)
[2017-03-02] MEDS ORDERED: LANTUS PER UNIT CHARGE SC STA (06:46)
--- NOTE | 2017-03-02 07:07 | DIAGNOSTIC IMAGING REPORT ---
CHEST ONE VIEW PORTABLE HISTORY: 66 years-old Female Intubated acute respiratory failure COMPARISON: Chest radiograph 03/01/2017 TECHNIQUE: Portable AP view of the chest FINDINGS: Cardiac silhouette is again enlarged. Atherosclerosis of the aorta. Endotracheal tube overlies the midline, 1.9 cm superior to the markel. Enteric tube courses below the diaphragm into the region of the gastric lumen. There is no pneumothorax. Small left pleural effusion with persistent left basilar opacities. There is improved aeration of the right lung base. Mild pulmonary vascular congestion persists. Probable benign appearing chondroid lesion of the proximal right humerus. IMPRESSION: 1. Cardiomegaly with persistent pulmonary vascular congestion. 2. Stable positioning of life support apparatus. 3. Improved aeration of the right lung base with persistent small left pleural effusion and left basilar opacities. The above report was generated using voice recognition software. It may contain grammatical, syntax or spelling errors. Electronically signed by: Oscar Turpin M.D. 03/02/2017 7:06 AM Dictated Date/Time: 03/02/2017 7:00 AM
[2017-03-02] MEDS: MAGNESIUM SULFATE 1GM / D5W 1 GM in PREMIXED IN D5W 100 ML IV SCH ×2 (07:12→08:20)
[2017-03-02] MEDS ORDERED: POTASSIUM PHOSPHATE INJ 30 MMOL in SODIUM CHLORIDE 0.9% 500ML 500 ML IV ONE (07:15)
[2017-03-02] MEDS: INSULIN HUMAN NPH SC SCH ×2 (07:27→16:13)
[2017-03-02] MEDS: ENOXAPARIN 40 MG/0.4 ML SYR SQ SCH ×2 (07:31→21:02)
[2017-03-02] MEDS: NYSTATIN CR 15 GM TUBE EXT SCH ×2 (08:20→21:04)
--- NOTE | 2017-03-02 08:22 | Progress Note ---
Internal Med Progress Note Date of Service: Mar 02, 2017. Provider Documentation: SUBJECTIVE: Seen and examined at bedside Patient is extubated this morning Denies SOB, chest pain OBJECTIVE: Vital Signs-as noted below Physical Exam: General Appearance:Obese, no apparent distress Head: normocephalic, Atraumatic Eyes: normal inspection, EOMI, PERRL Neck: supple, Trachea midline Respiratory/Chest: Decreased breath sounds, expiratory wheezes Cardiovascular: S1, S2, No murmur Abdomen/GI:Soft, Non tender, Bowel sounds present Extremities/Musculoskelatal:normal inspection, Trace edema Neurologic/Psych: Grossly no focal deficits Skin: normal color, warm Lab data as noted below. 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 CXR:small left pleural effusion, left basilar densities, mild congestive change Blood cultures: No growth to date Continue home inhalers Lactate:normal Procalcitonin: 0.10 Empirically on IV Invanz Extubated on 03/02/17 Leukocytosis trending down Electrolyte Imbalances: Hypokalemia/Hypomagnesemia/Hypophosphatemia: Replace and monitor H/O Diastolic Heart failure Continue Metoprolol, Lasix PRN DM II A1C: 7.7 Continue ISS, Basal Insulin Monitor Blood sugar levels Hypothyroidism: TSH, Free T4: normal Continue Levothyroxine Morbid Obesity: BMI:53.1 DVT Px: Lovenox SQ Disposition: Monitor in ICU Family Contact: Uri [phone] Vital Signs: Date Time Temp Pulse Resp B/P (MAP) Pulse Ox O2 Delivery O2 Flow Rate FiO2 03/02/17 06:05 40 03/02/17 06:00 88 18 137/74 (85) 96 03/02/17 05:40 40 03/02/17 05:01 88 20 142/71 (97) 94 03/02/17 05:00 76 21 93 03/02/17 04:00 40 03/02/17 04:00 Mechanical Ventilator 40 03/02/17 04:00 88 18 135/61 (85) 94 03/02/17 04:00 37.1 03/02/17 03:00 88 19 133/59 (83) 93 03/02/17 03:00 88 19 133/59 (74) 93 03/02/17 02:20 40 1/17/18 02:00 92 18 133/52 (79) 93 03/02/17 02:00 92 18 133/52 (73) 93 03/02/17 01:00 92 18 130/52 (78) 93 03/02/17 01:00 92 18 130/52 (73) 93 03/02/17 00:00 Mechanical Ventilator 40 03/02/17 00:00 37.6 93 18 130/53 (78) 93 03/02/17 00:00 93 18 130/53 (88) 93 03/02/17 00:00 40 03/01/17 23:10 40 03/01/17 22:00 95 18 127/53 (77) 93 Mechanical Ventilator 40 03/01/17 21:00 95 18 124/50 (74) 93 Mechanical Ventilator 40 03/01/17 20:07 40 03/01/17 20:00 Mechanical Ventilator 40 03/01/17 20:00 38.0 99 18 127/48 (74) 93 Mechanical Ventilator 40 03/01/17 20:00 40 03/01/17 19:00 98 18 139/54 (82) 93 Mechanical Ventilator 40 03/01/17 18:22 40 03/01/17 18:00 97 18 118/49 (72) 93 Mechanical Ventilator 40 03/01/17 17:00 96 18 129/54 (79) 93 Mechanical Ventilator 40 03/01/17 16:00 Mechanical Ventilator 40 03/01/17 16:00 40 03/01/17 16:00 38.5 94 18 136/45 (75) 94 Mechanical Ventilator 40 03/01/17 15:01 96 18 122/63 (82) 92 Mechanical Ventilator 40 03/01/17 14:30 40 03/01/17 14:24 38.0 03/01/17 14:00 83 18 145/59 (87) 93 Mechanical Ventilator 40 03/01/17 12:00 95 Mechanical Ventilator 40 03/01/17 12:00 40 03/01/17 12:00 38.4 84 18 120/63 (82) 95 Mechanical Ventilator 40 03/01/17 11:40 40 03/01/17 10:00 78 18 121/56 (77) 97 Mechanical Ventilator 40 Lab Results: Results Past 24 Hours Test 03/01/17 09:29 1/16/18 12:58 03/01/17 15:56 03/01/17 19:00 Range/Units Bedside Glucose 132 160 141 140 70-90 mg/dl Test 03/02/17 00:19 03/02/17 04:17 03/02/17 05:20 03/02/17 06:21 Range/Units Bedside Glucose 191 184 70-90 mg/dl White Blood Count 11.40 4.8-10.8 K/uL Red Blood Count 4.71 4.2-5.4 M/uL Hemoglobin 11.1 12.0-16.0 g/dL Hematocrit 37.3 37-47 % Mean Corpuscular Volume 79.2 80-100 fL Mean Corpuscular Hemoglobin 23.6 25-34 pg Mean Corpuscular Hemoglobin Concent 29.8 32-36 g/dl RDW Standard Deviation 51.6 36.4-46.3 fL RDW Coefficient of Variation 17.9 11.5-14.5 % Platelet Count 153 130-400 K/uL Mean Platelet Volume 11.3 7.4-10.4 fL Sodium Level 138 136-145 mmol/L Potassium Level 2.8 3.5-5.1 mmol/L Chloride Level 96 98-107 mmol/L Carbon Dioxide Level 35 21-32 mmol/L Anion Gap 7.0 3-11 mmol/L Blood Urea Nitrogen 12 7-18 mg/dl Creatinine 0.56 0.60-1.20 mg/dl Est Creatinine Clear Calc Drug Dose 156.4 ml/min Estimated GFR () 111.8 Estimated GFR (Non- 96.5 BUN/Creatinine Ratio 21.4 10-20 Random Glucose 182 70-99 mg/dl Estimated Average Glucose 174 mg/dl Hemoglobin A1c 7.7 4.5-5.6 % Calcium Level 8.4 8.5-10.1 mg/dl Phosphorus Level 1.2 2.5-4.9 mg/dl Magnesium Level 1.6 1.8-2.4 mg/dl Procalcitonin 0.10 0-0.5 ng/ml Thyroid Stimulating Hormone (TSH) 2.150 0.300-4.500 uIu/ml Free Thyroxine 1.36 0.80-1.60 ng/dl Blood Gas Sample Site L Radial Bedside Blood Gas pH (LAB) 7.52 7.35-7.45 Bedside Blood Gas pCO2 (LAB) 48 35-46 mmHg Bedside Blood Gas pO2 (LAB) 93 80-95 mmHg Bedside Blood Gas HCO3 (LAB) 39 19-24 meq/L Bedside Blood Gas Total CO2 > 40 24-31 mEq/l Bedside Blood Gas Base Excess (LAB) 16.0 -9-1.8 meq/L Bedside Blood Gas O2 Saturation 98.0 90-95 % Bill Test Pass Oxygen Delivery Device Ventilator Bedside FiO2 40 % Blood Gas PEEP 5 Test 03/02/17 07:25 Range/Units Bedside Glucose 175 70-90 mg/dl
[2017-03-02] MEDS: TIOTROPIUM BROMIDE 5 PUFF/90 MCG INH INH SCH (08:50)
[2017-03-02] MEDS: FLUTICASONE PROPIONATE NA SPR 16 GM BTL NAE SCH (08:50)
[2017-03-02] MEDS ORDERED: FUROSEMIDE 40 MG/4 ML VIAL IV STA (09:15)
[2017-03-02] MEDS: AcetaZOLAMIDE 250 MG TAB PO SCH ×2 (09:20→20:49)
[2017-03-02] MEDS: METOPROLOL SUCC 25MG EXT REL TAB PO SCH (09:20)
[2017-03-02] MEDS: URSODIOL 300 MG CAP PO SCH ×2 (10:09→20:49)
[2017-03-02] MEDS: LANSOPRAZOLE SOLUTAB 30 MG PO SCH (10:09)
[2017-03-02] MEDS: ASPIRIN 81 MG CHEW PO SCH (10:09)
--- NOTE | 2017-03-02 10:33 | Pharmacy Progress Note ---
Glycemic Control Progress Note Date of Service Mar 02, 2017. Scope Glycemic Pharmacist consulted for glycemic control to write orders per [facility] inpatient glycemic control protocol. Objective Accuchecks BSG (last 24hrs): Test 03/01/17 12:58 03/01/17 15:56 03/01/17 19:00 03/02/17 00:19 Bedside Glucose 160 mg/dl (70-90) 141 mg/dl (70-90) 140 mg/dl (70-90) 191 mg/dl (70-90) Test 03/02/17 04:17 03/02/17 05:20 03/02/17 07:25 Bedside Glucose 184 mg/dl (70-90) 175 mg/dl (70-90) Random Glucose 182 mg/dl (70-99) HbA1c: Test 03/02/17 05:20 Hemoglobin A1c 7.7 % (4.5-5.6) H Recent Pertinent Medications Outpatient Anti-diabetic Regimen: * Novolin N Relion 73 units SC AC * Insulin regular 33 untis SC AC * Metformin ER 1000 mg po daily * A1c 7.7% on 03/02/17 Assessment & Plan ASSESSMENT: 03/01/17 * 66 yo F with T2DM well-known to our service admitted to ICU for acute respiratory failure. Patient is currently intubated and NPO. * History of severe allergy to some types of insulin - patient tolerates NPH and Novolog per previous admissions therefore will use again * Previous admission November 2016 * Patient received ~130-150 units of insulin per day * ~50/50 split of NPH/Novolog * BSG's usually ranged 100-180 mg/dL * Patient consumed ~40-60g CHO per meal * Differences this admission: patient may have more physiologic stress 2nd intubation/respiratory failure but is also NPO * BSG 88 mg/dL random this AM. BSG's slowly creeping up (132 mg/dL ~0900, 160 mg/dL ~1300). * Held NPH for now while patient NPO and BSG's below goal range. OK to initiate now that BSG's are in goal range. Will dose at slightly less than 1/2 of what patient required on previous admissions. OK to re-dose in 12 hours based on BSG. * Will initiate Novolog similar to previous admission, but dose more frequently at q4h as basal insulin is significantly less aggressive due to lower BSG on admit and NPO status 03/02/17 * Changes to stressors * Patient extubated but now frequently with O2 desaturations. On BiPAP for now , but re-intubation possible. * Not anticipated that patient will be ordered diet today (note: if/when this happens, insulin regimen will need to be adjusted significantly) * BSG's ranging 132-191 mg/dL over the last 24 hours. * Two BSG's elevated overnight likely 2nd effects of AM NPH yesterday wearing off without full effect of PM NPH yet present. * Will administer NPH more frequently and slightly increase dose PLAN FOR INPATIENT GLYCEMIC CONTROL: * Hold outpatient oral diabetes medication - metformin * Increase basal insulin with NPH - will schedule q8h * 0 units for BSG less than 120 mg/dL * 15 units for BSG 120-160 mg/dL * 20 units for BSG 160-200 mg/dL * 25 units for BSG greater than 200 mg/dL * Correctional Insulin with NOVOLOG per scale Q4hrs while NPO * Goal Range: Low 120 mg/dL - High 160 mg/dL * Correction Factor: 10 mg/dL/unit * Nutritional / Prandial insulin per carb ratio of 1 unit per 3 grams CHO consumed * Please note that the plan above was derived based on current level of insulin resistance and hospital stress. These recommendations are appropriate for inpatient admission only. Plan of care upon discharge will need to be reassessed to avoid potential outpatient hypo/hyperglycemia. Thank you.
--- NOTE | 2017-03-02 10:40 | INFECT. DISEASE CONSULTATION ---
DATE OF CONSULTATION: 03/02/2017 HISTORY OF PRESENT ILLNESS: This is a 66-year-old female who was admitted to the hospital on the after she was found to have an abnormal ABG with pCO2 of 115. She was initially placed on BiPAP, but did not have a good response to this and was subsequently intubated. She was extubated yesterday and is back on BiPAP. On my examination, she denies any shortness of breath or cough. She denies any chest pain. She denies any abdominal pain. She denies fevers or chills; however, overnight she did have fever with a T-max of 38.5. She is currently afebrile. She was placed empirically on ertapenem and remains on this. No sputum culture has been done. She initially had a leukocytosis of 13. This has improved to 11. A urinalysis is unremarkable. Blood cultures are pending. Her imaging is consistent with vascular congestion. She did have chest x-rays which were compared to x-rays done on November 19. This shows an unchanged effusion and bilateral opacities suggestive of atelectasis. Infectious disease was called in for antibiotics. PAST MEDICAL HISTORY: Significant for history of pancreatitis, anxiety, asthma, morbid obesity, history of CVA, hypercapnic respiratory failure, osteoarthritis, chronic pain, Crohn's disease, depression, type 2 diabetes with neuropathy, diastolic heart failure, high cholesterol, gastroparesis, hypertension, hypertrophic cardiomyopathy, hypothyroidism, obesity, hypoventilation syndrome, sleep apnea. PAST SURGICAL HISTORY: Significant for partial nephrectomy, nasal septum repair and tonsillectomy. FAMILY HISTORY: Noncontributory. SOCIAL HISTORY: Negative for tobacco use, alcohol use and drug use. ALLERGIES: SHE HAS MULTIPLE ALLERGIES INCLUDING QUINOLONES, NITROFURANTOIN, PENICILLINS, VANCOMYCIN, AZITHROMYCIN, CEFEPIME, CEFTRIAXONE, TETRACYCLINE AND SULFA ANTIBIOTICS. ADDITIONAL MEDICATION ALLERGIES ARE LISTED IN HER H&P. MEDICATIONS: Include Lovenox, DuoNeb, Diamox, insulin, Singulair, Tylenol, ertapenem, Flonase, Topral XL, nystatin, Spiriva, aspirin, Prevacid, Synthroid, Ventolin, Lasix, Desenex, Zofran, fentanyl Patch. PHYSICAL EXAMINATION: VITAL SIGNS: She is currently afebrile, pulse 111, respiratory rate is in the 20s, blood pressure is 196/94, oxygen saturation is 91-96% on BIPAP mask. GENERAL: She is awake and alert. She is in no acute distress. HEENT: Mucous membranes are dry. HEART: Regular. LUNGS: Have decreased breath sounds bilaterally. ABDOMEN: Nondistended. There is no lower extremity edema. SKIN: Without rash. LABORATORY STUDIES: CBC reveals a white blood cell count of 11.4, hemoglobin 11.1, platelets 153. Chemistry panel reveals a sodium of 138, potassium 2.8, chloride 96, bicarbonate 35, BUN 12, creatinine 0.5, glucose is 182. LFTs were normal on admission. Procalcitonin is negative. UA is negative. Blood cultures are negative x2 sets. Most recent x-ray done this morning shows cardiomegaly with vascular congestion and improved aeration. ASSESSMENT AND PLAN: 1. Respiratory failure. 2. Leukocytosis, resolving. 3. Fever, resolved. At this time, I do not see any evidence for pneumonia; however, certainly bronchitis could be involved. She could complete a 5 day course of empiric ertapenem. Her blood cultures are negative. She is clinically improving. Thank you for this consultation.
--- NOTE | 2017-03-02 10:45 | Progress Note ---
Progress Note Date of Service Mar 02, 2017. Progress Note ID Consult Dictated #[id number] A/P: 1.Hypercapnic resp failure -No clear evidence of Pna, if bronchitis suspected, can give 5 days Ertapenem -Continue supportive care - follow cultures, thank you
[2017-03-02] MEDS: ALBUT/IPRATROP 3MG/0.5MG NEB 3 ML VIAL INH SCH ×3 (11:20→19:35)
[2017-03-02] MEDS: ERTAPENEM IV 1 GM in SODIUM CHLOR 0.9% AD-VAN 50ML 50 ML IV SCH (16:16)
[2017-03-02 16:42] LABS: BLOOD UREA NITROGEN 11 mg/dl (7-18); CALCIUM 8.2 mg/dl (8.5-10.1); CARBON DIOXIDE 38 mmol/L (21-32); GLUCOSE 225 mg/dl (70-99); POTASSIUM 3.3 mmol/L (3.5-5.1); SODIUM 140 mmol/L (136-145)
--- NOTE | 2017-03-02 19:59 | Critical Care Progress Note ---
Critical Care Progress Note Date of Service Mar 02, 2017. ICU Day ICU Day Number: [address] Love Subjective Patient admitted for obesity hypoventilation syndrome Extubated today, required BiPAP placement Patient continuously attempting to tug at BiPAP throughout day, requiring restraints/mitts Responds to verbal commands Objective VSS HEENT--no focal changes Pulmonary--Extubated today, placed on BiPAP, patient attempting to pull off; on mitts. Cardio--rate and volume ok GI--functional and nontender--rotund --Ferrell to gravity Neuro--awake and alert--without focal changes. Derm--no active lesion Assessment & Plan 66 yo female admitted to ICU for hypercapnic respiratory failure likely secondary to obesity hypoventilation syndrome. PLAN: Neuro: * Continue home Lyrica * Pain Management: hold sedation type medications * Versed Infusion and Fentanyl PRN push: GOAL RASS 0 Resp: * Pt extubated today but required BiPAP within 2 hours of extubation * Pt aroused easily with verbal commands * Continue home respiratory regimen * Daily CXR and ABG * Continue home lasix regimen as indicated * Diamox 500 given prior to lasix CV: * NSR on telemetry * Continue BB and ASA * EKG with chest pain * No need for repeat echo at this time; continue meds and diuresis Fluids/Renal: * Ferrell to gravity inserted * NSS * Urine output goal -1-2L today * Cr level remains stable ID: * Hx of UTIs, U/A negative this admission * Started on Ertapenam 2/2 fever yesterday and numerous allergic reactions; ID consulted * Urine culture sent AFTER day 1 of antibiotics * Blood Cultures pending, NGTD * MRSA neg GI/Nutrition: * LFTs WNL * Albumin 3.3 * Ammonia 35 (below baseline of prior admissions) * Prophylaxis: Ordered Heme: * H&H: 12.9/44; Plts: 157 * Coags: aaPTT 39.6; PT/INR: 10.1/1.0 * Daily CBC * Prophylaxis: Lovenox 40 q12, per weight adjustment Endocrine: * Accu-Checks per protocol, started insulin infusion for 2 blood sugars greater than 180 * DM 2: Metformin held now * Need to acquire Records release for allergy testing regarding insulin allergy. * Thyroid disease known: Continue 100mcg PO qAM * Resident Physician Supervision Note: Dr. Rutledge was resident physician during care of patient. I separately evaluated patient and did history and exam. I discussed the case with the resident and generally agree with the findings and plan. We obtained extubation parameters in the morning, the negative inspiratory pressures of -26, heart rate is be 56, patient was following complex commands and she had no secretions. She was being adequately ventilated on CPAP, her hypercarbia had resolved. We proceed with extubation. Patient required supplemental oxygen which she refused to keep on. Eventually she became more hypoxic necessitating BiPAP again which she attempted to discontinue. She is eventually required to be placed in soft minutes. There was a definite worsening in her PCO2, I had an extensive prolonged discussion with the at bedside regarding goals of care. The patient has significant obesity hypoventilation syndrome. At this point the patient is 100% bed bound in nearly full assist to complete her activities of daily living. After the discussed the patient's condition further with his son and daughter they all desired intubation if the patient continued to decompensate from a respiratory standpoint. Patient was clearly unable to consent for herself she was again profoundly hypercarbic and encephalopathic. We modified her BiPAP settings and she became more arousable. I am concerned with repeated respiratory failure and repeated intubation should she may require significantly prolonged mechanical ventilation. In discussing those options with the he said it was clear that she would not want to live with artificial machines. I explained that the patient is at high risk for respiratory failure and may require emergent intubation if her mental status worsens again. He acknowledged his understanding I have personally spent 90 minutes of critical care time in the direct management of this patient. This is a life/limb threatening event. This includes time spent evaluating patient, direct bedside care, chart review, placing orders, interpretation of diagnostic studies, discussion with consultants, patient, and family members, as well as other required patient management activities. This time is exclusive of all separately billable procedures, and teaching time and separate from and in addition to any other critical care service time. Documented By: Kendrick Love DO Consults & Procedures Consultants: ID Procedures: 03/01/17: intubated 03/02/17: extubated Data Medications: Current Inpatient Medications Medications (Trade) Dose Ordered Sig/Keith Route Start Time Stop Time Status Last Admin Dose Admin Fentanyl Citrate (Fentanyl Inj) 50 mcg Q1H PRN IV 03/01/17 06:15 1/30/18 06:14 03/02/17 12:07 50 MCG Midazolam HCl 250 ml @ 0 mls/hr Q0M PRN IV 03/01/17 06:03 03/31/17 06:02 03/01/17 18:53 20 MLS/HR Albuterol (Ventolin Hfa Inhaler) 2 puffs QID PRN INH 03/01/17 07:00 03/31/17 06:59 Fluticasone Propionate (Flonase Nasal [place]) 2 sprays DAILY ANTON 03/01/17 09:00 03/31/17 08:59 Furosemide (Lasix Tab) 40 mg DAILY PRN PO 03/01/17 07:00 03/31/17 06:59 03/01/17 08:12 40 MG Levothyroxine Sodium (Synthroid Tab) 100 mcg DAILYBB PO 03/01/17 07:45 03/31/17 07:44 03/02/17 05:13 100 MCG Metoprolol Succinate (Toprol Xl Tab) 25 mg DAILY PO 03/01/17 09:00 03/31/17 08:59 03/02/17 09:20 25 MG Miconazole Nitrate (Desenex Powder) 1 appln BID PRN EXT 03/01/17 07:00 03/31/17 06:59 Montelukast Sodium (Singulair Tab) 10 mg HS PO 03/01/17 21:00 03/31/17 20:59 03/01/17 18:55 10 MG Nystatin (Mycostatin Crm) 1 appln BID EXT 03/01/17 09:00 03/31/17 08:59 03/02/17 08:20 1 APPLN Ondansetron HCl (Zofran Tab) 4 mg Q6H PRN PO 03/01/17 07:00 03/31/17 06:59 Tiotropium [place] (Spiriva Handihaler Inhaler) 1 puff QAM INH 03/01/17 09:00 03/31/17 08:59 Ursodiol (Actigall Cap) 600 mg BID PO 03/01/17 09:00 03/31/17 08:59 03/01/17 18:55 600 MG Miscellaneous Information (Consult Glycemic Management Pharmacy) 1 ea UD PRN N/A 03/01/17 08:15 03/31/17 08:14 Aspirin (Aspirin Chew) 81 mg DAILY PO 03/01/17 09:00 03/31/17 08:59 03/01/17 09:45 81 MG Lansoprazole (Prevacid Solutab) 30 mg QAM PO 03/01/17 09:00 03/31/17 08:59 03/01/17 09:45 30 MG Insulin Aspart (novoLOG ASPART) SLIDING SCALE Q4 SC 03/01/17 16:00 03/31/17 15:59 03/02/17 16:14 6 UNITS Ertapenem 1 gm/ Sodium Chloride 50 ml @ 120 mls/hr Q24H IV 03/01/17 17:00 03/08/17 16:59 03/02/17 16:16 120 MLS/HR Acetaminophen (Tylenol Soln) 650 mg Q6H PRN PO 03/01/17 19:45 03/31/17 19:44 Insulin Human NPH (novoLIN-N NPH) Q8H SC 03/02/17 08:00 04/01/17 07:59 03/02/17 16:13 25 UNITS Albuterol/ Ipratropium (Duoneb) 3 ml QIDR INH 03/02/17 12:00 04/01/17 11:59 03/02/17 15:12 3 ML Acetazolamide (Diamox Tab) 500 mg BID PO 03/02/17 10:00 03/02/17 21:01 03/02/17 09:20 500 MG Enoxaparin Sodium (Lovenox Inj) 40 mg BID SQ 03/02/17 21:00 04/01/17 20:59 I & O: 24-Hour Column 03/03/17 08:00 Intake Total 931 ml Output Total 2050 ml Balance -1119 ml Vital Signs: Date Time Temp Pulse Resp B/P (MAP) Pulse Ox O2 Delivery O2 Flow Rate FiO2 03/02/17 18:00 93 27 147/69 (95) 96 BiPAP 60 03/02/17 17:22 101 96 60 03/02/17 16:00 BiPAP 60 03/02/17 16:00 37.2 99 23 163/76 (105) 95 BiPAP 60 03/02/17 15:12 105 16 94 BiPAP/CPAP 50 03/02/17 14:00 117 30 199/80 (119) 94 BiPAP 60 03/02/17 12:37 111 92 60 03/02/17 12:00 108 32 211/93 (132) 92 BiPAP 60 03/02/17 12:00 BiPAP 60 03/02/17 11:25 100 94 50 03/02/17 11:24 100 14 94 BiPAP/CPAP 50 03/02/17 10:00 111 22 196/94 (128) 91 BiPAP 50 03/02/17 09:35 101 92 50 03/02/17 08:00 BiPAP 50 03/02/17 08:00 Oxymask 03/02/17 08:00 37.3 93 20 155/62 (93) 96 Oxymask 6.0 03/02/17 06:05 40 03/02/17 06:00 88 18 137/74 (85) 96 03/02/17 05:40 40 03/02/17 05:01 88 20 142/71 (97) 94 03/02/17 05:00 76 21 93 03/02/17 04:00 40 03/02/17 04:00 Mechanical Ventilator 40 03/02/17 04:00 88 18 135/61 (85) 94 03/02/17 04:00 37.1 03/02/17 03:00 88 19 133/59 (83) 93 03/02/17 03:00 88 19 133/59 (74) 93 03/02/17 02:20 40 03/02/17 02:00 92 18 133/52 (79) 93 03/02/17 02:00 92 18 133/52 (73) 93 03/02/17 01:00 92 18 130/52 (78) 93 03/02/17 01:00 92 18 130/52 (73) 93 03/02/17 00:00 Mechanical Ventilator 40 03/02/17 00:00 37.6 93 18 130/53 (78) 93 03/02/17 00:00 93 18 130/53 (88) 93 03/02/17 00:00 40 03/01/17 23:10 40 03/01/17 22:00 95 18 127/53 (77) 93 Mechanical Ventilator 40 03/01/17 21:00 95 18 124/50 (74) 93 Mechanical Ventilator 40 03/01/17 20:07 40 03/01/17 20:00 Mechanical Ventilator 40 03/01/17 20:00 38.0 99 18 127/48 (74) 93 Mechanical Ventilator 40 03/01/17 20:00 40 Laboratory Results: Last 24 Hours Test 03/02/17 00:19 03/02/17 04:17 03/02/17 05:20 03/02/17 06:21 Bedside Glucose 191 mg/dl 184 mg/dl White Blood Count 11.40 K/uL Red Blood Count 4.71 M/uL Hemoglobin 11.1 g/dL Hematocrit 37.3 % Mean Corpuscular Volume 79.2 fL Mean Corpuscular Hemoglobin 23.6 pg Mean Corpuscular Hemoglobin Concent 29.8 g/dl RDW Standard Deviation 51.6 fL RDW Coefficient of Variation 17.9 % Platelet Count 153 K/uL Mean Platelet Volume 11.3 fL Sodium Level 138 mmol/L Potassium Level 2.8 mmol/L Chloride Level 96 mmol/L Carbon Dioxide Level 35 mmol/L Anion Gap 7.0 mmol/L Blood Urea Nitrogen 12 mg/dl Creatinine 0.56 mg/dl Est Creatinine Clear Calc Drug Dose 156.4 ml/min Estimated GFR () 111.8 Estimated GFR (Non- 96.5 BUN/Creatinine Ratio 21.4 Random Glucose 182 mg/dl Estimated Average Glucose 174 mg/dl Hemoglobin A1c 7.7 % Calcium Level 8.4 mg/dl Phosphorus Level 1.2 mg/dl Magnesium Level 1.6 mg/dl Procalcitonin 0.10 ng/ml Thyroid Stimulating Hormone (TSH) 2.150 uIu/ml Free Thyroxine 1.36 ng/dl Blood Gas Sample Site L Radial Bedside Blood Gas pH (LAB) 7.52 Bedside Blood Gas pCO2 (LAB) 48 mmHg Bedside Blood Gas pO2 (LAB) 93 mmHg Bedside Blood Gas HCO3 (LAB) 39 meq/L Bedside Blood Gas Total CO2 > 40 mEq/l Bedside Blood Gas Base Excess (LAB) 16.0 meq/L Bedside Blood Gas O2 Saturation 98.0 % Bill Test Pass Oxygen Delivery Device Ventilator Bedside FiO2 40 % Blood Gas PEEP 5 Test 03/02/17 07:25 03/02/17 10:19 03/02/17 11:15 03/02/17 14:56 Bedside Glucose 175 mg/dl 223 mg/dl Troponin I < 0.015 ng/ml Lipase 69 U/L Blood Gas Sample Site L Radial Bedside Blood Gas pH (LAB) 7.22 Bedside Blood Gas pCO2 (LAB) 104 mmHg Bedside Blood Gas pO2 (LAB) 87 mmHg Bedside Blood Gas HCO3 (LAB) 42 meq/L Bedside Blood Gas Total CO2 > 40 mEq/l Bedside Blood Gas Base Excess (LAB) 15.0 meq/L Bedside Blood Gas O2 Saturation 93.0 % Bill Test Pass Oxygen Delivery Device BIPAP Bedside Oxygen Rate (breaths/min) 31 Bedside FiO2 60 % Blood Gas IPAP 17 Test 03/02/17 16:01 03/02/17 16:05 Bedside Glucose 220 mg/dl Sodium Level 140 mmol/L Potassium Level 3.3 mmol/L Chloride Level 97 mmol/L Carbon Dioxide Level 38 mmol/L Anion Gap 5.0 mmol/L Blood Urea Nitrogen 11 mg/dl Creatinine 0.70 mg/dl Est Creatinine Clear Calc Drug Dose 123.9 ml/min Estimated GFR () 103.9 Estimated GFR (Non- 89.7 BUN/Creatinine Ratio 15.3 Random Glucose 225 mg/dl Calcium Level 8.2 mg/dl Phosphorus Level 5.0 mg/dl Magnesium Level 2.1 mg/dl Troponin I < 0.015 ng/ml Resident Tracking Resident Involvement: Resident Care Provided Care Provided: Adult Hospital Medicine
[2017-03-02] MEDS: MONTELUKAST SOD 10 MG TAB PO SCH (20:49)
[2017-03-02] MEDS ORDERED: INSULIN ASPART 100 UNITS/ML 3 ML PEN SC ONE (21:00)
[2017-03-02] MEDS ORDERED: ONDANSETRON INJ 2 MG/ML 2 ML VIAL ONE (21:47)
[2017-03-02] MEDS ORDERED: NURSING VERBAL MED ORDER ONE (23:15)
[2017-03-02] MEDS: POTASSIUM CHLR 10MEQ / WTR IV SCH (23:22)
[2017-03-03] VITALS (28 sets, daily range): BP systolic 129–166; BP diastolic 53–78; PULSE 51–94; TEMP 36.7–37.6; O2SAT 90–99
[2017-03-03] MEDS: INSULIN ASPART 100 UNITS/ML 3 ML PEN SC SCH ×7 (00:16→23:35)
[2017-03-03] MEDS: ACETAZOLAMIDE IV PUSH 250 MG in SYRINGE 0 ML IV SCH ×2 (00:17→06:29)
[2017-03-03] MEDS: INSULIN HUMAN NPH SC SCH ×4 (00:17→16:38)
[2017-03-03] MEDS: POTASSIUM CHLR 10MEQ / WTR IV SCH ×3 (00:35→11:41)
[2017-03-03 02:18] LABS: CALCIUM 8.2 mg/dl (8.5-10.1); CREATININE 0.56 mg/dl (0.60-1.20); POTASSIUM 3.2 mmol/L (3.5-5.1)
[2017-03-03] MEDS: POTASSIUM CHLR 10 MEQ / WTR 10 MEQ in PREMIXED WATER 100 ML IV SCH ×4 (02:40→08:35)
[2017-03-03 05:48] LABS: HEMOGLOBIN 11.5 g/dL (12.0-16.0); MEAN CELL VOLUME 80.7 fL (80-100); MEAN CORPUSCULAR HEMOGLOBIN 23.8 pg (25-34); MEAN CORPUSCULAR HGB CONC 29.5 g/dl (32-36); MEAN PLATELET VOLUME 11.2 fL (7.4-10.4); PLATELET COUNT 165 K/uL (130-400); RED CELL DISTRIBUTION WIDTH CV 18.3 % (11.5-14.5); RED CELL DISTRIBUTION WIDTH SD 54.1 fL (36.4-46.3)
[2017-03-03 06:23] LABS: CALCIUM 8.3 mg/dl (8.5-10.1); CREATININE 0.58 mg/dl (0.60-1.20); POTASSIUM 3.1 mmol/L (3.5-5.1)
[2017-03-03 06:27] LABS: PHOSPHORUS 2.7 mg/dl (2.5-4.9)
[2017-03-03] MEDS: ALBUT/IPRATROP 3MG/0.5MG NEB 3 ML VIAL INH SCH ×4 (07:00→18:33)
--- NOTE | 2017-03-03 07:57 | Critical Care Progress Note ---
Critical Care Progress Note Date of Service Mar 03, 2017. ICU Day ICU Day Number: [address] Love Subjective Admitted for obesity hypoventilation syndrome Patient complaining of thirst this AM Trial off BiPAP tolerated but patient remains somnolent, continually falling asleep and collapsing airway. . Patient more alert today, responding to verbal commands Objective VSS; drop in HR from 90-->60 while attempting to swab mouth this AM HEENT--no focal changes Pulmonary--Extubated yesterday, trial off BiPAP today, patient attempting to pull off oxymask. Cardio--rate and volume ok; spell of bradycardia while attempting green mouth swab GI--functional and nontender--rotund. 1+ pitting edema bilaterally --Ferrell to gravity Neuro--awake and alert--without focal changes. Derm--no active lesions, starting to develop yeast-like lesions in folds Assessment & Plan 66 yo female admitted to ICU for hypercapnic respiratory failure likely secondary to obesity hypoventilation syndrome. PLAN: Neuro: * Continue home Lyrica * Pain Management: hold sedation type medications * Versed Infusion and Fentanyl PRN push; has not required since day 1 Resp: * Pt extubated yesterday, on BiPAP overnight; Trial of BiPAP wean tolerated well , however patient non-compliant with attempting to spontaneously breathe; patient continues to fall asleep and collapse airway. Expect that patient will become hypercapnic again. Discussion had with patient that if she continues on this path she will require intubation again. Conversation held last evening with patient and during which they expressed desire to be intubated should the need arise. She remains DNR in event of cardiovascular collapse. * Obtain home CPAP information. * Pt aroused easily with verbal commands * Continue home respiratory regimen * Daily CXR showed developing RLL airspace opacity; likely aspiration pneumonia. Started on cefipime after careful consideration of patient's allergies. * Diamox DCd * Lasix today: 40 CV: * NSR on telemetry * Continue BB and ASA. Toprol given 12.5 BID today instead of 25 od * EKG with chest pain * No need for repeat echo at this time; continue meds and diuresis * Runs of bradycardia during medication administration and swabbing of mouth. Asymptomatic, resolves spontaneously within seconds. Possibly a component of tachy-harjit syndrome but not enough information available to diagnose. Fluids/Renal: * Ferrell to gravity inserted * Urine output: met goal yesterday of -1.8L * Cr level remains stable at 0.58, repeat BMP at 1600 today * K level remains at 3.1 this AM. Supplement with total of 80 Kcl. Patient unable to tolerate PO intake of potassium. ID: * Hx of UTIs, U/A negative this admission * Started on Ertapenam 2/2 fever yesterday and numerous allergic reactions; ID consulted: 7 day course of ertapenam; day 3 * Urine culture sent AFTER day 1 of antibiotics; shows streptococcal species. * New right sided opacity in RLL; started on cefipime for presumed aspiration pneumonia. Chosen with careful consideration of patient's allergy list. * Blood Cultures pending, NGTD * MRSA neg GI/Nutrition: * LFTs WNL * Albumin 3.3 * Ammonia 35 (below baseline of prior admissions) * Prophylaxis: Ordered * Ordered [facility] heart healthy, low salt mechanical soft moist diet. Heme: * H&H: 11.5/39.0; Plts: 165 * Coags: aaPTT 39.6; PT/INR: 10.1/1.0 * Daily CBC: WBC 13 today up from 11 yesterday * Prophylaxis: Lovenox 40 q12, per weight adjustment Endocrine: * Accu-Checks per protocol, started insulin infusion for 2 blood sugars greater than 180 * Patient's correction factor changed to 5 overnight from 8; glucose has responded well, last check 153. * Diet changes: NPH with meals, Novolog ACHS and 2 checks overnight * DM 2: Metformin held now * Need to acquire Records release for allergy testing regarding insulin allergy. * Thyroid disease known: Continue 100mcg PO qAM Resident Physician Supervision Note: Dr. Garg was resident physician during care of patient. I separately evaluated patient and did history and exam. I discussed the case with the resident and generally agree with the findings and plan. Patient required BiPAP overnight. Additional information was obtained after getting home BiPAP settings, the patient wears BiPAP / at home. Today the patient was much more alert however there appears to be a new infiltrate in the right lower lobe. We expand her coverage to include cefepime at this time. Culture results and sensitivities are still pending. Patient is critically ill due to hypercarbic hypoxic respiratory failure secondary to a right lower lobe pneumonia. Patient is at significantly high risk for reintubation, she would frequently fall asleep during the day and have sonorous respirations. I have personally spent 40 minutes of critical care time in the direct management of this patient. This is a life/limb threatening event. This includes time spent evaluating patient, direct bedside care, chart review, placing orders, interpretation of diagnostic studies, discussion with consultants, patient, and family members, as well as other required patient management activities. This time is exclusive of all separately billable procedures, and teaching time and separate from and in addition to any other critical care service time. Documented By: Kendrick Love DO Consults & Procedures Consultants: ID Procedures: 03/01/17: intubated 03/02/17: extubated Data Medications: Current Inpatient Medications Medications (Trade) Dose Ordered Sig/Keith Route Start Time Stop Time Status Last Admin Dose Admin Fentanyl Citrate (Fentanyl Inj) 50 mcg Q1H PRN IV 03/01/17 06:15 03/15/17 06:14 03/02/17 12:07 50 MCG Midazolam HCl 250 ml @ 0 mls/hr Q0M PRN IV 03/01/17 06:03 03/31/17 06:02 03/01/17 18:53 20 MLS/HR Albuterol (Ventolin Hfa Inhaler) 2 puffs QID PRN INH 03/01/17 07:00 03/31/17 06:59 Fluticasone Propionate (Flonase Nasal [place]) 2 sprays DAILY [place]TON 03/01/17 09:00 03/31/17 08:59 Furosemide (Lasix Tab) 40 mg DAILY PRN PO 03/01/17 07:00 03/31/17 06:59 03/01/17 08:12 40 MG Metoprolol Succinate (Toprol Xl Tab) 25 mg DAILY PO 03/01/17 09:00 03/31/17 08:59 03/02/17 09:20 25 MG Miconazole Nitrate (Desenex Powder) 1 appln BID PRN EXT 03/01/17 07:00 03/31/17 06:59 03/02/17 21:10 1 APPLN Montelukast Sodium (Singulair Tab) 10 mg HS PO 03/01/17 21:00 03/31/17 20:59 03/01/17 18:55 10 MG Nystatin (Mycostatin Crm) 1 appln BID EXT 03/01/17 09:00 03/31/17 08:59 03/02/17 21:04 1 APPLN Ondansetron HCl (Zofran Tab) 4 mg Q6H PRN PO 03/01/17 07:00 03/31/17 06:59 Tiotropium [place] (Spiriva Handihaler Inhaler) 1 puff QAM INH 03/01/17 09:00 03/31/17 08:59 Ursodiol (Actigall Cap) 600 mg BID PO 03/01/17 09:00 03/31/17 08:59 03/01/17 18:55 600 MG Miscellaneous Information (Consult Glycemic Management Pharmacy) 1 ea UD PRN N/A 03/01/17 08:15 03/31/17 08:14 Aspirin (Aspirin Chew) 81 mg DAILY PO 03/01/17 09:00 03/31/17 08:59 03/01/17 09:45 81 MG Insulin Aspart (novoLOG ASPART) SLIDING SCALE Q4 SC 03/01/17 16:00 03/31/17 15:59 03/03/17 03:42 2 UNITS Ertapenem 1 gm/ Sodium Chloride 50 ml @ 120 mls/hr Q24H IV 03/01/17 17:00 03/08/17 16:59 03/02/17 16:16 120 MLS/HR Acetaminophen (Tylenol Soln) 650 mg Q6H PRN PO 03/01/17 19:45 03/31/17 19:44 Insulin Human NPH (novoLIN-N NPH) Q8H SC 03/02/17 08:00 04/01/17 07:59 03/03/17 00:17 25 UNITS Albuterol/ Ipratropium (Duoneb) 3 ml QIDR INH 03/02/17 12:00 04/01/17 11:59 03/03/17 07:00 3 ML Enoxaparin Sodium (Lovenox Inj) 40 mg BID SQ 03/02/17 21:00 04/01/17 20:59 03/02/17 21:02 40 MG Levothyroxine Sodium 75 mcg/ Syringe 3.75 ml @ 2 mls/min DAILY@09 IV 03/03/17 09:00 04/02/17 08:59 Pantoprazole Sodium 40 mg/ Syringe 10 ml @ 5 mls/min DAILY@11 IV 03/03/17 11:00 04/02/17 10:59 Acetazolamide Sodium 250 mg/ Syringe 2.5 ml @ 5 mls/min Q6H IV 03/03/17 00:00 04/02/17 00:00 03/03/17 06:29 5 MLS/MIN Potassium Chloride 10 meq/ Prmx 100 ml @ 100 mls/hr Q1H IV 03/03/17 06:45 03/03/17 08:44 03/03/17 06:42 100 MLS/HR I & O: 03/02/17 03/03/17 03/04/17 07:59 07:59 07:59 Intake Total 1312 ml 1631 ml Output Total 2400 ml 3175 ml Balance -1088 ml -1544 ml Vital Signs: Date Time Temp Pulse Resp B/P (MAP) Pulse Ox O2 Delivery O2 Flow Rate FiO2 03/03/17 07:00 86 20 91 Mask 3.0 03/03/17 06:00 76 16 156/67 (96) 95 BiPAP 50 03/03/17 05:00 83 18 152/68 (96) 95 BiPAP 50 03/03/17 04:00 36.7 77 22 151/61 (91) 95 BiPAP 50 03/03/17 04:00 BiPAP 50 03/03/17 03:01 74 27 152/78 (102) 92 BiPAP 50 03/03/17 02:00 81 26 129/65 (86) 94 BiPAP 50 03/03/17 01:58 83 95 50 03/03/17 01:00 81 22 155/67 (96) 96 BiPAP 50 03/03/17 00:01 BiPAP 50 03/03/17 00:00 36.8 81 19 148/66 (93) 96 BiPAP 50 03/02/17 23:00 85 25 149/71 (97) 95 BiPAP 50 03/02/17 22:33 89 95 50 03/02/17 22:00 77 24 148/68 (94) 94 BiPAP 50 03/02/17 21:00 88 22 158/72 (100) 95 BiPAP 50 03/02/17 20:00 BiPAP 60 03/02/17 20:00 36.7 84 26 157/81 (106) 96 BiPAP 60 03/02/17 19:40 90 21 96 BiPAP/CPAP 60 03/02/17 19:38 90 96 60 03/02/17 19:38 90 21 96 BiPAP/CPAP 60 03/02/17 19:00 91 20 159/81 (107) 97 BiPAP 60 03/02/17 18:00 93 27 147/69 (95) 96 BiPAP 60 03/02/17 17:22 101 96 60 03/02/17 16:00 BiPAP 60 03/02/17 16:00 37.2 99 23 163/76 (105) 95 BiPAP 60 03/02/17 15:12 105 16 94 BiPAP/CPAP 50 03/02/17 14:00 117 30 199/80 (119) 94 BiPAP 60 03/02/17 12:37 111 92 60 03/02/17 12:00 108 32 211/93 (132) 92 BiPAP 60 03/02/17 12:00 BiPAP 60 03/02/17 11:25 100 94 50 03/02/17 11:24 100 14 94 BiPAP/CPAP 50 03/02/17 10:00 111 22 196/94 (128) 91 BiPAP 50 03/02/17 09:35 101 92 50 03/02/17 08:00 BiPAP 50 03/02/17 08:00 Oxymask 03/02/17 08:00 37.3 93 20 155/62 (93) 96 Oxymask 6.0 Laboratory Results: Last 24 Hours Test 03/02/17 10:19 03/02/17 11:15 03/02/17 14:56 03/02/17 16:01 Troponin I < 0.015 ng/ml Lipase 69 U/L Bedside Glucose 223 mg/dl 220 mg/dl Blood Gas Sample Site L Radial Bedside Blood Gas pH (LAB) 7.22 Bedside Blood Gas pCO2 (LAB) 104 mmHg Bedside Blood Gas pO2 (LAB) 87 mmHg Bedside Blood Gas HCO3 (LAB) 42 meq/L Bedside Blood Gas Total CO2 > 40 mEq/l Bedside Blood Gas Base Excess (LAB) 15.0 meq/L Bedside Blood Gas O2 Saturation 93.0 % Bill Test Pass Oxygen Delivery Device BIPAP Bedside Oxygen Rate (breaths/min) 31 Bedside FiO2 60 % Blood Gas IPAP 17 Test 03/02/17 16:05 03/02/17 20:35 03/02/17 21:38 03/03/17 00:12 Sodium Level 140 mmol/L Potassium Level 3.3 mmol/L Chloride Level 97 mmol/L Carbon Dioxide Level 38 mmol/L Anion Gap 5.0 mmol/L Blood Urea Nitrogen 11 mg/dl Creatinine 0.70 mg/dl Est Creatinine Clear Calc Drug Dose 123.9 ml/min Estimated GFR () 103.9 Estimated GFR (Non- 89.7 BUN/Creatinine Ratio 15.3 Random Glucose 225 mg/dl Calcium Level 8.2 mg/dl Phosphorus Level 5.0 mg/dl Magnesium Level 2.1 mg/dl Troponin I < 0.015 ng/ml < 0.015 ng/ml Bedside Glucose 228 mg/dl 202 mg/dl Test 03/03/17 01:32 03/03/17 01:41 03/03/17 03:38 03/03/17 05:10 Venous Blood pH 7.36 Venous Blood Partial Pressure CO2 67 mmHg Venous Blood Partial Pressure O2 73 mmHg Venous Blood HCO3 37 mmol/L Venous Blood Oxygen Saturation 93.2 % Venous Blood Base Excess 9.1 mEq/L Sodium Level 140 mmol/L 141 mmol/L Potassium Level 3.2 mmol/L 3.1 mmol/L Chloride Level 99 mmol/L 100 mmol/L Carbon Dioxide Level 37 mmol/L 36 mmol/L Anion Gap 4.0 mmol/L 5.0 mmol/L Blood Urea Nitrogen 11 mg/dl 11 mg/dl Creatinine 0.56 mg/dl 0.58 mg/dl Est Creatinine Clear Calc Drug Dose 154.9 ml/min 148.2 ml/min Estimated GFR () 111.8 110.5 Estimated GFR (Non- 96.5 95.4 BUN/Creatinine Ratio 19.7 18.4 Random Glucose 188 mg/dl 153 mg/dl Calcium Level 8.2 mg/dl 8.3 mg/dl Bedside Glucose 167 mg/dl White Blood Count 13.80 K/uL Red Blood Count 4.83 M/uL Hemoglobin 11.5 g/dL Hematocrit 39.0 % Mean Corpuscular Volume 80.7 fL Mean Corpuscular Hemoglobin 23.8 pg Mean Corpuscular Hemoglobin Concent 29.5 g/dl RDW Standard Deviation 54.1 fL RDW Coefficient of Variation 18.3 % Platelet Count 165 K/uL Mean Platelet Volume 11.2 fL Phosphorus Level 2.7 mg/dl Magnesium Level 2.0 mg/dl Resident Tracking Resident Involvement: Resident Care Provided Care Provided: Adult Hospital Medicine
[2017-03-03] MEDS: METOPROLOL TARTRATE 25 MG TAB PO SCH ×2 (08:35→20:27)
[2017-03-03] MEDS: POTASSIUM CHLORIDE 20 MEQ TABCR PO ONE ×2 (08:35→09:07)
[2017-03-03] MEDS: TIOTROPIUM BROMIDE 5 PUFF/90 MCG INH INH SCH (08:36)
[2017-03-03] MEDS: URSODIOL 300 MG CAP PO SCH ×2 (08:36→20:26)
[2017-03-03] MEDS: ASPIRIN 81 MG CHEW PO SCH (08:36)
[2017-03-03] MEDS: FLUTICASONE PROPIONATE NA SPR 16 GM BTL NAE SCH (08:37)
[2017-03-03] MEDS: ENOXAPARIN 40 MG/0.4 ML SYR SQ SCH ×2 (08:37→20:29)
[2017-03-03] MEDS: NYSTATIN CR 15 GM TUBE EXT SCH ×2 (08:38→20:29)
--- NOTE | 2017-03-03 08:38 | Progress Note ---
Internal Med Progress Note Date of Service: Mar 03, 2017. Provider Documentation: SUBJECTIVE: Seen and examined at bedside Very drowsy this morning but oriented Denies pain Currently off BiPAP Denies SOB, chest pain OBJECTIVE: Vital Signs-as noted below Physical Exam: General Appearance:Obese, no apparent distress Head: normocephalic, Atraumatic Eyes: normal inspection, EOMI, PERRL Neck: supple, Trachea midline Respiratory/Chest: Decreased breath sounds, CTA Cardiovascular: S1, S2, No murmur Abdomen/GI:Soft, Non tender, Bowel sounds present Extremities/Musculoskelatal:normal inspection, Trace edema Neurologic/Psych: Grossly no focal deficits Skin: normal color, warm Lab data as noted below. ASSESSMENT & PLAN: Acute respiratory failure/Hypercarbia/Hypoxia Obesity hypoventilation Syndrome Metabolic Encephalopathy: Acute respiratory acidosis CT: no acute intracranial findings Appreciate Can Cutter help CXR:small left pleural effusion, left basilar densities, mild congestive change Blood cultures: No growth to date UA: not indicative of UTI Continue home inhalers Lactate:normal Procalcitonin: 0.10 Empirically on IV Invanz to complete 5 day course Day # 3/5 Extubated on 03/02/17 Persistent Leukocytosis BiPAP support as needed VBG with improved CO2 levels today Electrolyte Imbalances: Hypokalemia/Hypomagnesemia/Hypophosphatemia: Replace and monitor H/O Diastolic Heart failure CXR: pulmonary vascular congestion and small left pleural effusion Continue Metoprolol, Acetazolamide and Lasix PRN DM II A1C: 7.7 Continue ISS, Basal Insulin Monitor Blood sugar levels Hypothyroidism: TSH, Free T4: normal Continue Levothyroxine Morbid Obesity: BMI:53.1 DVT Px: Lovenox SQ Disposition: Monitor in ICU Family Contact: Uri [phone] Vital Signs: Date Time Temp Pulse Resp B/P (MAP) Pulse Ox O2 Delivery O2 Flow Rate FiO2 03/03/17 07:00 86 20 91 Mask 3.0 03/03/17 06:00 76 16 156/67 (96) 95 BiPAP 50 03/03/17 05:00 83 18 152/68 (96) 95 BiPAP 50 03/03/17 04:00 36.7 77 22 151/61 (91) 95 BiPAP 50 03/03/17 04:00 BiPAP 50 1/18/18 03:01 74 27 152/78 (102) 92 BiPAP 50 18 02:00 81 26 129/65 (86) 94 BiPAP 50 18 01:58 83 95 50 03/03/18 01:00 81 22 155/67 (96) 96 BiPAP 50 18 00:01 BiPAP 50 18 00:00 36.8 81 19 148/66 (93) 96 BiPAP 50 03/02/17 23:00 85 25 149/71 (97) 95 BiPAP 50 18 22:33 89 95 50 18 22:00 77 24 148/68 (94) 94 BiPAP 50 03/02/17 21:00 88 22 158/72 (100) 95 BiPAP 50 03/02/17 20:00 BiPAP 60 03/02/17 20:00 36.7 84 26 157/81 (106) 96 BiPAP 60 18 19:40 90 21 96 BiPAP/CPAP 60 03/02/17 19:38 90 96 60 18 19:38 90 21 96 BiPAP/CPAP 60 18 19:00 91 20 159/81 (107) 97 BiPAP 60 18 18:00 93 27 147/69 (95) 96 BiPAP 60 18 17:22 101 96 60 03/02/17 16:00 BiPAP 60 18 16:00 37.2 99 23 163/76 (105) 95 BiPAP 60 18 15:12 105 16 94 BiPAP/CPAP 50 03/02/17 14:00 117 30 199/80 (119) 94 BiPAP 60 18 12:37 111 92 60 18 12:00 108 32 211/93 (132) 92 BiPAP 60 18 12:00 BiPAP 60 18 11:25 100 94 50 18 11:24 100 14 94 BiPAP/CPAP 50 18 10:00 111 22 196/94 (128) 91 BiPAP 50 03/02/17 09:35 101 92 50 Lab Results: Results Past 24 Hours Test 03/02/17 10:19 03/02/17 11:15 03/02/17 14:56 03/02/17 16:01 Range/Units Troponin I < 0.015 0-0.045 ng/ml Lipase 69 73-393 U/L Bedside Glucose 223 220 70-90 mg/dl Blood Gas Sample Site L Radial Bedside Blood Gas pH (LAB) 7.22 7.35-7.45 Bedside Blood Gas pCO2 (LAB) 104 35-46 mmHg Bedside Blood Gas pO2 (LAB) 87 80-95 mmHg Bedside Blood Gas HCO3 (LAB) 42 19-24 meq/L Bedside Blood Gas Total CO2 > 40 24-31 mEq/l Bedside Blood Gas Base Excess (LAB) 15.0 -9-1.8 meq/L Bedside Blood Gas O2 Saturation 93.0 90-95 % Bill Test Pass Oxygen Delivery Device BIPAP Bedside Oxygen Rate (breaths/min) 31 Bedside FiO2 60 % Blood Gas IPAP 17 Test 03/02/17 16:05 03/02/17 20:35 03/02/17 21:38 03/03/17 00:12 Range/Units Sodium Level 140 136-145 mmol/L Potassium Level 3.3 3.5-5.1 mmol/L Chloride Level 97 98-107 mmol/L Carbon Dioxide Level 38 21-32 mmol/L Anion Gap 5.0 3-11 mmol/L Blood Urea Nitrogen 11 7-18 mg/dl Creatinine 0.70 0.60-1.20 mg/dl Est Creatinine Clear Calc Drug Dose 123.9 ml/min Estimated GFR () 103.9 Estimated GFR (Non- 89.7 BUN/Creatinine Ratio 15.3 10-20 Random Glucose 225 70-99 mg/dl Calcium Level 8.2 8.5-10.1 mg/dl Phosphorus Level 5.0 2.5-4.9 mg/dl Magnesium Level 2.1 1.8-2.4 mg/dl Troponin I < 0.015 < 0.015 0-0.045 ng/ml Bedside Glucose 228 202 70-90 mg/dl Test 03/03/17 01:32 03/03/17 01:41 03/03/17 03:38 03/03/17 05:10 Range/Units Venous Blood pH 7.36 7.36-7.41 Venous Blood Partial Pressure CO2 67 38.0-50.0 mmHg Venous Blood Partial Pressure O2 73 mmHg Venous Blood HCO3 37 mmol/L Venous Blood Oxygen Saturation 93.2 % Venous Blood Base Excess 9.1 mEq/L Sodium Level 140 141 136-145 mmol/L Potassium Level 3.2 3.1 3.5-5.1 mmol/L Chloride Level 99 100 98-107 mmol/L Carbon Dioxide Level 37 36 21-32 mmol/L Anion Gap 4.0 5.0 3-11 mmol/L Blood Urea Nitrogen 11 11 7-18 mg/dl Creatinine 0.56 0.58 0.60-1.20 mg/dl Est Creatinine Clear Calc Drug Dose 154.9 148.2 ml/min Estimated GFR () 111.8 110.5 Estimated GFR (Non- 96.5 95.4 BUN/Creatinine Ratio 19.7 18.4 10-20 Random Glucose 188 153 70-99 mg/dl Calcium Level 8.2 8.3 8.5-10.1 mg/dl Bedside Glucose 167 70-90 mg/dl White Blood Count 13.80 4.8-10.8 K/uL Red Blood Count 4.83 4.2-5.4 M/uL Hemoglobin 11.5 12.0-16.0 g/dL Hematocrit 39.0 37-47 % Mean Corpuscular Volume 80.7 80-100 fL Mean Corpuscular Hemoglobin 23.8 25-34 pg Mean Corpuscular Hemoglobin Concent 29.5 32-36 g/dl RDW Standard Deviation 54.1 36.4-46.3 fL RDW Coefficient of Variation 18.3 11.5-14.5 % Platelet Count 165 130-400 K/uL Mean Platelet Volume 11.2 7.4-10.4 fL Phosphorus Level 2.7 2.5-4.9 mg/dl Magnesium Level 2.0 1.8-2.4 mg/dl
[2017-03-03] MEDS ORDERED: FUROSEMIDE INJ 40 MG in SYRINGE 0 ML IV ONE (08:45)
[2017-03-03] MEDS ORDERED: LEVOTHYROXINE SODIUM INJ 75 MCG in SYRINGE 0 ML IV SCH (09:00)
--- NOTE | 2017-03-03 10:30 | DIAGNOSTIC IMAGING REPORT ---
CHEST ONE VIEW PORTABLE CLINICAL HISTORY: Respiratory failure COMPARISON STUDY: 03/02/2017 FINDINGS: The nasogastric tube and endotracheal tubes have been removed. There are persistent left basilar airspace opacities. There are developing right basal airspace opacities.[ The heart remains enlarged. There is persistent pulmonary vascular congestion. Small effusions are suspected. IMPRESSION: 1. Persistent cardiomegaly and bony vascular congestion 2. Interval removal of the endotracheal tube and nasogastric tubes 3. Persistent left basal airspace opacities. 4. Developing right basilar airspace opacities. Electronically signed by: Yvon Hermosillo M.D. 03/03/2017 10:28 AM Dictated Date/Time: 03/03/2017 10:25 AM
[2017-03-03] MEDS ORDERED: PANTOprazole INJ 40 MG in SYRINGE 0 ML IV SCH (11:00)
[2017-03-03] MEDS: CEFEPIME IV 2,000 MG in SYRINGE 7.5 ML IV SCH ×2 (11:41→20:26)
--- NOTE | 2017-03-03 14:05 | Pharmacy Progress Note ---
Glycemic Control Progress Note Date of Service Mar 03, 2017. Scope Glycemic Pharmacist consulted for glycemic control to write orders per [facility] inpatient glycemic control protocol. Objective Accuchecks BSG (last 24hrs): Test 03/02/17 16:01 03/02/17 16:05 03/02/17 20:35 03/03/17 00:12 Bedside Glucose 220 mg/dl (70-90) 228 mg/dl (70-90) 202 mg/dl (70-90) Random Glucose 225 mg/dl (70-99) Test 03/03/17 01:41 03/03/17 03:38 03/03/17 05:10 03/03/17 08:30 Random Glucose 188 mg/dl (70-99) 153 mg/dl (70-99) Bedside Glucose 167 mg/dl (70-90) 144 mg/dl (70-90) Test 03/03/17 11:25 Bedside Glucose 230 mg/dl (70-90) HbA1c: Test 03/02/17 05:20 Hemoglobin A1c 7.7 % (4.5-5.6) H Recent Pertinent Medications Outpatient Anti-diabetic Regimen: * Novolin N Relion 73 units SC AC * Insulin regular 33 untis SC AC * Metformin ER 1000 mg po daily * A1c 7.7% on 03/02/17 Assessment & Plan ASSESSMENT: 03/01/17 * 66 yo F with T2DM well-known to our service admitted to ICU for acute respiratory failure * History of severe allergy to some types of insulin - patient tolerates NPH and Novolog per previous admissions therefore will use again * Previous admission November 2016 * Patient received ~130-150 units of insulin per day * ~50/50 split of NPH/Novolog * BSG's usually ranged 100-180 mg/dL * Patient consumed ~40-60g CHO per meal * Changes to stressors: patient ordered a diet today. * Will resume regimen similar to previous admissions now that patient is ordered a diet. However, will be slightly more aggressive with correction factor and NPH dose as patient likely has more physiologic stress as compared to previous admissions which is causing her BSG's to increase * Of note, BSG increased from 144 to 230 mg/dL at lunch today - this is 2nd patient consuming a late breakfast therefore CHO not covered per RN PLAN FOR INPATIENT GLYCEMIC CONTROL: * Hold outpatient oral diabetes medication - metformin * Increase basal insulin with NPH - change schedule to TIDM * 10 units for BSG less than 120 mg/dL * 20 units for BSG 120-160 mg/dL * 25 units for BSG 161-200 mg/dL * 30 units for BSG greater than 200 mg/dL * Correctional Insulin with NOVOLOG - ACHS and two overnight checks * Goal Range: Low 130 mg/dL - High 160 mg/dL * Tighten Correction Factor: 8 mg/dL/unit * Nutritional / Prandial insulin per carb ratio of 1 unit per 3 grams CHO consumed * Please note that the plan above was derived based on current level of insulin resistance and hospital stress. These recommendations are appropriate for inpatient admission only. Plan of care upon discharge will need to be reassessed to avoid potential outpatient hypo/hyperglycemia. Thank you.
--- NOTE | 2017-03-03 14:41 | Palliative Care Consultation ---
Consultation Date of Consultation: Mar 03, 2017. Requesting Physician: Dr. Love Attending Physician: Dr. Rowan Reason for Consultation: Goals of care History of Present Illness This 66 year old female patient with PMH respiratory failure, morbid obesity, bed-bound status, and o thers listed below, presented to the hospital two days ago with c/o SOB. She wears O2 chronically at home. In ED, ABG showed severe respiratory acidosis-- ph 7.13, CO2 115. Bipap was initiated and patient eventually required intubation in the ICU. Patient has since been successfully extubated, but her respiratory status remains tenuous with high risk of failing and reintubation. Patient has an extensive history including years of being bed- bound with obese hypoventilatory syndrome and chronic respiratory failure. Wears oxygen during day, CPAP at night. She has other underlying comorbidities as well. Palliative care has been consulted to assist with establishing goals of care. I met with the patient in room 104. She is awake, alert and oriented. Has no c/ o pain or discomfort at this time. We discussed her medical conditions. Patient states she knows she is sick and feels a little overwhelmed. She said, "I'm not afraid to , but I'm just not ready yet. I want to spend more time with my and family." We discussed what would happen if she went into respiratory failure again. She stated she would be okay with intubation if needed, but would never want to live long-term on machines if her quality of life was going to be poor. She does not think she would want compressions if her heart stopped beating. Patient only wants to go home upon discharge, does not want to go to facility. See plan below. Past Medical/Surgical History Medical History: Pancreatitis Altered mental status Anxiety Asthma Cerebrovascular disease Chronic hypercapnic respiratory failure Chronic osteoarthritis Chronic pain disorder Crohn's disease Depression Diabetes mellitus, type II Diabetic neuropathy Diastolic heart failure Dyslipidemia Gastroparesis Hypercapnic respiratory failure Hypertension Hypertrophic cardiomyopathy Hypothyroidism Necrotizing Fasciitis Obesity hypoventilation syndrome Pneumonia, organism unspecified Recurrent UTI Sleep apnea Urinary Tract Infection Surgical Problems: Partial nephrectomy Repair nasal septum Tonsillectomy Social History Smoking Status: Never Smoker History of Alcohol Use: No Drug Use: none Marital Status: Housing Status: lives with significant other, other Occupation Status: disabled Review of Systems Constitutional: + weakness (chronically bed-bound) ENT: No trouble swallowing Respiratory: No shortness of breath, No dyspnea on exertion Cardiac: No chest pain, No edema Abdomen: No pain, No nausea, No vomiting Female : No problem reported Psychiatric: + anxiety (situational), No depression symptoms Allergies Coded Allergies: Fluoxetine (Verified Allergy, Severe, ANAPHYLAXIS, 02/28/17) Insulin (Verified Allergy, Severe, LANTUS/LEVEMIR- HIVES/THROAT SWELLING, 02/28/17) TOLERATES NOVOLIN N 11/19/15 aj (per pt phone call) Note: after patient had severe hives reaction from Lantus (many years ago), she had skin testing @ [place] and was tested with many other insulins. Pt says she only tolerated NOVOLIN NPH. PT HAS TOLERATED NOVOLOG ON PREVIOUS ADMISSIONS. Has tolerated Aspart during multiple admissions (12/2013, 05/2015, 07/2015) Moxifloxacin (Verified Allergy, Severe, HIVES, 02/28/17) Nitrofurantoin (Verified Allergy, Severe, HIVES, 02/28/17) Paroxetine (Verified Allergy, Severe, HIVES, 02/28/17) Quinolones (Verified Allergy, Severe, AVELOX & LEVAQUIN-HIVES, 02/28/17) Amitriptyline (Verified Allergy, Intermediate, Sweats and itching, 02/28/17 ) Buspirone (Verified Allergy, Intermediate, HIVES, 02/28/17) Citalopram (Verified Allergy, Intermediate, HIVES-RASH, 02/28/17) Escitalopram (Verified Allergy, Intermediate, HIVES-RASH, 02/28/17) Methadone (Verified Allergy, Intermediate, HIVES, 02/28/17) Penicillins (Verified Allergy, Intermediate, RASH,HIVES, 02/28/17) Serotonin Reuptake Inhibitors (Verified Allergy, Intermediate, MIGRAINES TO SSRIs, 02/28/17) Trazodone (Verified Allergy, Intermediate, BLOODY NOSE, HEADACHES,HIVES, ) Vancomycin (Verified Allergy, Intermediate, HIVES, 02/28/17) Prednisone (Verified Allergy, Mild, CHEST TIGHTNESS, 02/28/17) Azithromycin (Verified Allergy, Unknown, HIVES, 02/28/17) Carbamazepine (Verified Allergy, Unknown, [id number], 02/28/17) Cefepime (Verified Allergy, Unknown, face & arm redness/itching after 2nd or 3rd dose cefepime, 02/28/17) Ceftriaxone (Verified Allergy, Unknown, Received in [facility] (but needed benadryl for course of therapy, 02/28/17) this was during 01/2016 [facility] admission for Rocephin Ciprofloxacin (Unverified Allergy, Unknown, ABD PAINS, 02/28/17) Sertraline (Verified Allergy, Unknown, UNKNOWN, 02/28/17) Sitagliptin (Verified Allergy, Unknown, HIVES, 02/28/17) Tetracyclines (Verified Adverse Reaction, Severe, HIVES, 02/28/17) Sulfa Antibiotics (Verified Adverse Reaction, Intermediate, MIGRAINES, ) Fexofenadine (Verified Adverse Reaction, Mild, GI SYMPTOMS, 02/28/17) Tizanidine (Verified Adverse Reaction, Mild, ITCHING-HIVES, 02/28/17) Medications Current Inpatient Medications Medications (Trade) Dose Ordered Sig/Keith Route Start Time Stop Time Status Last Admin Dose Admin Fentanyl Citrate (Fentanyl Inj) 50 mcg Q1H PRN IV 03/01/17 06:15 03/15/17 06:14 03/02/17 12:07 50 MCG Midazolam HCl 250 ml @ 0 mls/hr Q0M PRN IV 03/01/17 06:03 03/31/17 06:02 03/01/17 18:53 20 MLS/HR Albuterol (Ventolin Hfa Inhaler) 2 puffs QID PRN INH 03/01/17 07:00 03/31/17 06:59 Fluticasone Propionate (Flonase Nasal [place]) 2 sprays DAILY ANTON 03/01/17 09:00 03/31/17 08:59 03/03/17 08:37 2 SPRAYS Furosemide (Lasix Tab) 40 mg DAILY PRN PO 03/01/17 07:00 03/31/17 06:59 03/01/17 08:12 40 MG Miconazole Nitrate (Desenex Powder) 1 appln BID PRN EXT 03/01/17 07:00 03/31/17 06:59 03/02/17 21:10 1 APPLN Montelukast Sodium (Singulair Tab) 10 mg HS PO 03/01/17 21:00 2/15/18 20:59 03/01/17 18:55 10 MG Nystatin (Mycostatin Crm) 1 appln BID EXT 03/01/17 09:00 03/31/17 08:59 03/03/17 08:38 1 APPLN Ondansetron HCl (Zofran Tab) 4 mg Q6H PRN PO 03/01/17 07:00 03/31/17 06:59 Tiotropium [place] (Spiriva Handihaler Inhaler) 1 puff QAM INH 03/01/17 09:00 03/31/17 08:59 03/03/17 08:36 1 PUFF Ursodiol (Actigall Cap) 600 mg BID PO 03/01/17 09:00 03/31/17 08:59 03/03/17 08:36 600 MG Miscellaneous Information (Consult Glycemic Management Pharmacy) 1 ea UD PRN N/A 03/01/17 08:15 03/31/17 08:14 Aspirin (Aspirin Chew) 81 mg DAILY PO 03/01/17 09:00 03/31/17 08:59 03/03/17 08:36 81 MG Ertapenem 1 gm/ Sodium Chloride 50 ml @ 120 mls/hr Q24H IV 03/01/17 17:00 03/08/17 16:59 03/02/17 16:16 120 MLS/HR Acetaminophen (Tylenol Soln) 650 mg Q6H PRN PO 03/01/17 19:45 03/31/17 19:44 Albuterol/ Ipratropium (Duoneb) 3 ml QIDR INH 03/02/17 12:00 04/01/17 11:59 03/03/17 14:28 3 ML Enoxaparin Sodium (Lovenox Inj) 40 mg BID SQ 03/02/17 21:00 04/01/17 20:59 03/03/17 08:37 40 MG Levothyroxine Sodium 75 mcg/ Syringe 3.75 ml @ 2 mls/min DAILY@09 IV 03/03/17 09:00 04/02/17 08:59 03/03/17 09:11 2 MLS/MIN Pantoprazole Sodium 40 mg/ Syringe 10 ml @ 5 mls/min DAILY@11 IV 03/03/17 11:00 04/02/17 10:59 03/03/17 11:40 5 MLS/MIN Metoprolol Tartrate (Lopressor Tab) 12.5 mg BID PO 03/03/17 09:00 04/02/17 08:59 03/03/17 08:35 12.5 MG Cefepime HCl 2000 mg/Syringe 20 ml @ 5 mls/min Q8H IV 03/03/17 12:00 03/10/17 11:59 03/03/17 11:41 5 MLS/MIN Insulin Aspart (novoLOG ASPART) SLIDING SCALE ACHS SC 03/03/17 12:00 04/02/17 11:59 03/03/17 11:44 20 UNITS Insulin Human NPH (novoLIN-N NPH) TIDM TX 03/03/17 12:00 04/02/17 11:59 03/03/17 11:45 30 UNITS Insulin Aspart (novoLOG ASPART) SLIDING SCALE TODAY@0000,0400 [place] 03/04/17 00:00 03/04/17 04:01 Physical Exam Date Time Temp Pulse Resp B/P (MAP) Pulse Ox O2 Delivery O2 Flow Rate FiO2 03/03/17 12:00 Nasal Cannula 4.0 03/03/17 12:00 36.9 91 23 166/75 (105) 94 Nasal Cannula 4.0 03/03/17 11:20 51 20 99 Nasal Cannula 6.0 03/03/17 10:01 91 19 148/69 (95) 92 Nasal Cannula 6.0 03/03/17 09:00 80 31 150/61 (90) 93 Nasal Cannula 4.0 03/03/17 08:00 BiPAP 03/03/17 08:00 37.0 83 30 157/67 (97) 94 Nasal Cannula 4.0 03/03/17 08:00 Nasal Cannula 4.0 03/03/17 07:00 86 20 91 Mask 3.0 03/03/17 06:00 76 16 156/67 (96) 95 BiPAP 50 03/03/17 05:00 83 18 152/68 (96) 95 BiPAP 50 03/03/17 04:00 36.7 77 22 151/61 (91) 95 BiPAP 50 03/03/17 04:00 BiPAP 50 03/03/17 03:01 74 27 152/78 (102) 92 BiPAP 50 03/03/17 02:00 81 26 129/65 (86) 94 BiPAP 50 03/03/17 01:58 83 95 50 03/03/17 01:00 81 22 155/67 (96) 96 BiPAP 50 03/03/17 00:01 BiPAP 50 03/03/17 00:00 36.8 81 19 148/66 (93) 96 BiPAP 50 03/02/17 23:00 85 25 149/71 (97) 95 BiPAP 50 03/02/17 22:33 89 95 50 03/02/17 22:00 77 24 148/68 (94) 94 BiPAP 50 03/02/17 21:00 88 22 158/72 (100) 95 BiPAP 50 03/02/17 20:00 BiPAP 60 03/02/17 20:00 36.7 84 26 157/81 (106) 96 BiPAP 60 03/02/17 19:40 90 21 96 BiPAP/CPAP 60 03/02/17 19:38 90 96 60 03/02/17 19:38 90 21 96 BiPAP/CPAP 60 03/02/17 19:00 91 20 159/81 (107) 97 BiPAP 60 03/02/17 18:00 93 27 147/69 (95) 96 BiPAP 60 03/02/17 17:22 101 96 60 03/02/17 16:00 BiPAP 60 03/02/17 16:00 37.2 99 23 163/76 (105) 95 BiPAP 60 03/02/17 15:12 105 16 94 BiPAP/CPAP 50 General Appearance: no apparent distress, + obese, + pertinent finding ( chronically ill-appearing) ENT: hearing grossly normal Neck: supple, no JVD Respiratory: no respiratory distress, no accessory muscle use, + decreased breath sounds, + pertinent finding (moist cough) Cardiovascular: regular rate, rhythm, + normal peripheral pulses Abdomen: normal bowel sounds, non tender, soft Musculoskeletal: pertinent finding (physically deconditioned, poor muscle mass) Neurologic/Psychiatric: alert, normal mood/affect, oriented x 3 Laboratory Results Last 24 Hours Test 03/02/17 14:56 03/02/17 16:01 03/02/17 16:05 03/02/17 20:35 Blood Gas Sample Site L Radial Bedside Blood Gas pH (LAB) 7.22 Bedside Blood Gas pCO2 (LAB) 104 mmHg Bedside Blood Gas pO2 (LAB) 87 mmHg Bedside Blood Gas HCO3 (LAB) 42 meq/L Bedside Blood Gas Total CO2 > 40 mEq/l Bedside Blood Gas Base Excess (LAB) 15.0 meq/L Bedside Blood Gas O2 Saturation 93.0 % Bill Test Pass Oxygen Delivery Device BIPAP Bedside Oxygen Rate (breaths/min) 31 Bedside FiO2 60 % Blood Gas IPAP 17 Bedside Glucose 220 mg/dl 228 mg/dl Sodium Level 140 mmol/L Potassium Level 3.3 mmol/L Chloride Level 97 mmol/L Carbon Dioxide Level 38 mmol/L Anion Gap 5.0 mmol/L Blood Urea Nitrogen 11 mg/dl Creatinine 0.70 mg/dl Est Creatinine Clear Calc Drug Dose 123.9 ml/min Estimated GFR () 103.9 Estimated GFR (Non- 89.7 BUN/Creatinine Ratio 15.3 Random Glucose 225 mg/dl Calcium Level 8.2 mg/dl Phosphorus Level 5.0 mg/dl Magnesium Level 2.1 mg/dl Troponin I < 0.015 ng/ml Test 03/02/17 21:38 03/03/17 00:12 03/03/17 01:32 03/03/17 01:41 Troponin I < 0.015 ng/ml Bedside Glucose 202 mg/dl Venous Blood pH 7.36 Venous Blood Partial Pressure CO2 67 mmHg Venous Blood Partial Pressure O2 73 mmHg Venous Blood HCO3 37 mmol/L Venous Blood Oxygen Saturation 93.2 % Venous Blood Base Excess 9.1 mEq/L Sodium Level 140 mmol/L Potassium Level 3.2 mmol/L Chloride Level 99 mmol/L Carbon Dioxide Level 37 mmol/L Anion Gap 4.0 mmol/L Blood Urea Nitrogen 11 mg/dl Creatinine 0.56 mg/dl Est Creatinine Clear Calc Drug Dose 154.9 ml/min Estimated GFR () 111.8 Estimated GFR (Non- 96.5 BUN/Creatinine Ratio 19.7 Random Glucose 188 mg/dl Calcium Level 8.2 mg/dl Test 03/03/17 03:38 03/03/17 05:10 03/03/17 08:30 03/03/17 11:25 Bedside Glucose 167 mg/dl 144 mg/dl 230 mg/dl White Blood Count 13.80 K/uL Red Blood Count 4.83 M/uL Hemoglobin 11.5 g/dL Hematocrit 39.0 % Mean Corpuscular Volume 80.7 fL Mean Corpuscular Hemoglobin 23.8 pg Mean Corpuscular Hemoglobin Concent 29.5 g/dl RDW Standard Deviation 54.1 fL RDW Coefficient of Variation 18.3 % Platelet Count 165 K/uL Mean Platelet Volume 11.2 fL Sodium Level 141 mmol/L Potassium Level 3.1 mmol/L Chloride Level 100 mmol/L Carbon Dioxide Level 36 mmol/L Anion Gap 5.0 mmol/L Blood Urea Nitrogen 11 mg/dl Creatinine 0.58 mg/dl Est Creatinine Clear Calc Drug Dose 148.2 ml/min Estimated GFR () 110.5 Estimated GFR (Non- 95.4 BUN/Creatinine Ratio 18.4 Random Glucose 153 mg/dl Calcium Level 8.3 mg/dl Phosphorus Level 2.7 mg/dl Magnesium Level 2.0 mg/dl Assessment & Plan Palliative Performance Scale: 30 % Problem list: Severe obesity Bed-bound Respiratory failure Obesity hypoventilation syndrome Metabolic encephalopathy- improved Small left pleural effusion Electrolyte imbalances Hx diastolic HF Goals of care Palliative care recs: discussed with patient and Dr. Love. -Patient is currently a level 5/ DNR in the case of cardiac arrest. -However, patient confirmed with me today that she would be okay with another intubation if needed, but would not want to live permanently on tubes/machines. While she is oriented, she was tearful and seemed overwhelmed at questions about her wishes. I did not asked her specifically about trach/PEG, but she alluded to the fact that she would not want to live in a state of poor quality of life in which she could not be at home with her family. -Patient's goal is to be at home with her , does not want to go anywhere else. She is already bed-bound and has in-home care. provides most of it. -For now, acute care continues. Goals of care will be an ongoing conversation. Thank you kindly for this consult. I will follow as needed.
[2017-03-03 16:28] LABS: CALCIUM 8.4 mg/dl (8.5-10.1); CREATININE 0.84 mg/dl (0.60-1.20); POTASSIUM 3.2 mmol/L (3.5-5.1)
[2017-03-03] MEDS: ERTAPENEM IV 1 GM in SODIUM CHLOR 0.9% AD-VAN 50ML 50 ML IV SCH (16:35)
[2017-03-03] MEDS ORDERED: POTASSIUM CHLORIDE 20 MEQ/15 ML UDC PO STA (16:45)
[2017-03-03] MEDS: MONTELUKAST SOD 10 MG TAB PO SCH (20:26)
[2017-03-03] MEDS: ONDANSETRON 4 MG TAB PO PRN (21:11)
[2017-03-03] MEDS ORDERED: PREGABALIN 100 MG CAP PO ONE (21:19)
[2017-03-04] VITALS (18 sets, daily range): BP systolic 123–151; BP diastolic 59–78; PULSE 64–97; TEMP 37–37.3; O2SAT 91–97
[2017-03-04] MEDS: INSULIN ASPART 100 UNITS/ML 3 ML PEN SC SCH ×5 (04:22→22:03)
[2017-03-04] MEDS: CEFEPIME IV 2,000 MG in SYRINGE 7.5 ML IV SCH ×3 (04:26→20:47)
[2017-03-04 05:25] LABS: HEMATOCRIT 36.4 % (37-47); MEAN CELL VOLUME 79.8 fL (80-100); MEAN CORPUSCULAR HEMOGLOBIN 24.1 pg (25-34); MEAN CORPUSCULAR HGB CONC 30.2 g/dl (32-36); MEAN PLATELET VOLUME 10.5 fL (7.4-10.4); PLATELET COUNT 164 K/uL (130-400); RED CELL DISTRIBUTION WIDTH CV 18.4 % (11.5-14.5); RED CELL DISTRIBUTION WIDTH SD 53.4 fL (36.4-46.3)
[2017-03-04 05:55] LABS: CALCIUM 8.2 mg/dl (8.5-10.1); CREATININE 1.07 mg/dl (0.60-1.20); PHOSPHORUS 2.9 mg/dl (2.5-4.9); POTASSIUM 3.3 mmol/L (3.5-5.1)
[2017-03-04] MEDS ORDERED: POTASSIUM CHLORIDE 20 MEQ/15 ML UDC PO STA (06:51)
[2017-03-04] MEDS: ALBUT/IPRATROP 3MG/0.5MG NEB 3 ML VIAL INH SCH ×4 (07:10→20:28)
[2017-03-04] MEDS: FLUTICASONE PROPIONATE NA SPR 16 GM BTL NAE SCH (07:36)
[2017-03-04] MEDS: TIOTROPIUM BROMIDE 5 PUFF/90 MCG INH INH SCH (07:36)
[2017-03-04] MEDS: URSODIOL 300 MG CAP PO SCH ×2 (07:37→20:49)
[2017-03-04] MEDS: ASPIRIN 81 MG CHEW PO SCH (07:37)
[2017-03-04] MEDS: METOPROLOL TARTRATE 25 MG TAB PO SCH ×2 (07:37→21:40)
[2017-03-04] MEDS: INSULIN HUMAN NPH SC SCH ×3 (07:40→17:03)
[2017-03-04] MEDS: NYSTATIN CR 15 GM TUBE EXT SCH ×2 (07:40→20:51)
[2017-03-04] MEDS: ENOXAPARIN 40 MG/0.4 ML SYR SQ SCH ×2 (07:40→20:53)
--- NOTE | 2017-03-04 08:36 | Critical Care Progress Note ---
Critical Care Progress Note Date of Service Mar 04, 2017. ICU Day ICU Day Number: [address] Love Subjective Admitted for obesity hypoventilation syndrome Patient complaining of sore throat this AM Patient more alert today, raises concerns about potential need for assisted living. BiPAP tolerated well; currently 93% on 3L NC Objective VSS; Neuro--awake and alert--without focal changes. HEENT--no focal changes Pulmonary--off BiPAP today, patient tolerating well compared to yesterday Cardio--rate and volume ok; spells of vagal bradycardia while coughing GI--functional and nontender--rotund. 1+ pitting edema bilaterally --Ferrell to gravity Derm--no active lesions, starting to develop yeast-like lesions in skinfolds Assessment & Plan 66 yo female admitted to ICU for hypercapnic respiratory failure likely secondary to obesity hypoventilation syndrome. PLAN: Neuro: * Continue home Lyrica * Pain Management: hold sedation type medications Resp: * Pt extubated 2 days ago, on BiPAP overnight; Trial of BiPAP wean tolerated well today. Currently ln 3L NC. * Patient somnolent, prone to collapse airway. Discussion had with patient that if she may require intubation again. Conversation held with patient and during which they expressed desire to be intubated should the need arise. She remains DNR in event of cardiovascular collapse. * Home CPAP data obtained; patient compliant at home. Reiterate that she must continue to use at night * Pt much more alert than yesterday * Continue home respiratory regimen * Daily CXR showed developing RLL airspace opacity yesterday but much improved since yesterday, continue with 7 day course of cefipime, day 2. Cefipime started after careful consideration of patient's allergies. * Hold lasix for now as Cr doubled overnight CV: * NSR on telemetry * Continue BB and ASA. * Patient has significant vagal bradycardia when coughing, thus will conservatively manage metoprolol dose: Toprol given 12.5 tartrate BID instead of 25 Succinate PD: * EKG with chest pain * No need for repeat echo at this time; continue meds and diuresis prn * Runs of bradycardia during medication administration and swabbing of mouth. Asymptomatic, resolves spontaneously within seconds. Possibly a component of tachy-harjit syndrome but not enough information available to diagnose. Fluids/Renal: * Ferrell to gravity inserted * Urine output: Cumulative -2.5L; last 24 hours +0.725 * Cr level remains WNL but bumped from 0.58 to 1.08 * K level remains at 3.3 this AM. Continue to supplement potassium. ID: * Hx of UTIs, U/A negative this admission * Started on Ertapenam 2/2 fever and numerous allergic reactions; ID consulted: 7 day course of ertapenam; day 4 * Urine culture sent AFTER day 1 of antibiotics; shows streptococcal species. * New right sided opacity in RLL; started on cefipime, day 2. Chosen with careful consideration of patient's allergy list. * Blood Cultures pending, NGTD * MRSA neg GI/Nutrition: * LFTs WNL * Albumin 3.3 * Ammonia 35 (below baseline of prior admissions) * Prophylaxis: Ordered * Ordered [facility] heart healthy, low salt mechanical soft moist diet. * No bowel movement since admission Heme: * H&H: 11/39.0; Plts: 164 * Coags: aaPTT 39.6; PT/INR: 10.1/1.0 * Daily CBC: WBC 13 stable * Prophylaxis: Lovenox 40 q12, per weight adjustment Endocrine: * Accu-Checks per protocol, started insulin infusion for 2 blood sugars greater than 180 * Hb A1C 7.7% * Patient's correction factor changed to 3 * Diet changes: NPH with meals, Novolog ACHS and 2 checks overnight * Ordered honey for sore throat and prn insulin when this is eaten. * DM 2: Metformin held now * Need to acquire Records release for allergy testing regarding insulin allergy. * Thyroid disease known: Continue 100mcg PO qAM DISPO: Transfer to telemetry today Resident Physician Supervision Note: Dr. Garg was resident physician during care of patient. I separately evaluated patient and did history and exam. I discussed the case with the resident and generally agree with the findings and plan. Much improved. Will continue the ABX for 7 days. Stable for downgrade discussed with hospitalist. Documented By: Kendrick Love DO Consults & Procedures Consultants: ID Procedures: 03/01/17: intubated 03/02/17: extubated Data Medications: Current Inpatient Medications Medications (Trade) Dose Ordered Sig/Keith Route Start Time Stop Time Status Last Admin Dose Admin Fentanyl Citrate (Fentanyl Inj) 50 mcg Q1H PRN IV 03/01/17 06:15 03/15/17 06:14 03/02/17 12:07 50 MCG Albuterol (Ventolin Hfa Inhaler) 2 puffs QID PRN INH 03/01/17 07:00 03/31/17 06:59 Fluticasone Propionate (Flonase Nasal [place]) 2 sprays DAILY ANTON 03/01/17 09:00 03/31/17 08:59 03/04/17 07:36 2 SPRAYS Furosemide (Lasix Tab) 40 mg DAILY PRN PO 03/01/17 07:00 03/31/17 06:59 03/01/17 08:12 40 MG Miconazole Nitrate (Desenex Powder) 1 appln BID PRN EXT 03/01/17 07:00 03/31/17 06:59 03/02/17 21:10 1 APPLN Montelukast Sodium (Singulair Tab) 10 mg HS PO 03/01/17 21:00 03/31/17 20:59 03/03/17 20:26 10 MG Nystatin (Mycostatin Crm) 1 appln BID EXT 03/01/17 09:00 03/31/17 08:59 03/04/17 07:40 1 APPLN Ondansetron HCl (Zofran Tab) 4 mg Q6H PRN PO 03/01/17 07:00 03/31/17 06:59 03/03/17 21:11 4 MG Tiotropium [place] (Spiriva Handihaler Inhaler) 1 puff QAM INH 03/01/17 09:00 03/31/17 08:59 03/04/17 07:36 1 PUFF Ursodiol (Actigall Cap) 600 mg BID PO 03/01/17 09:00 03/31/17 08:59 03/04/17 07:37 600 MG Miscellaneous Information (Consult Glycemic Management Pharmacy) 1 ea UD PRN N/A 03/01/17 08:15 03/31/17 08:14 Aspirin (Aspirin Chew) 81 mg DAILY PO 03/01/17 09:00 03/31/17 08:59 03/04/17 07:37 81 MG Ertapenem 1 gm/ Sodium Chloride 50 ml @ 120 mls/hr Q24H IV 03/01/17 17:00 03/08/17 16:59 03/03/17 16:35 120 MLS/HR Acetaminophen (Tylenol Soln) 650 mg Q6H PRN PO 03/01/17 19:45 03/31/17 19:44 Albuterol/ Ipratropium (Duoneb) 3 ml QIDR INH 03/02/17 12:00 04/01/17 11:59 03/04/17 07:10 3 ML Enoxaparin Sodium (Lovenox Inj) 40 mg BID SQ 03/02/17 21:00 04/01/17 20:59 03/04/17 07:40 40 MG Levothyroxine Sodium 75 mcg/ Syringe 3.75 ml @ 2 mls/min DAILY@09 IV 03/03/17 09:00 04/02/17 08:59 03/03/17 09:11 2 MLS/MIN Pantoprazole Sodium 40 mg/ Syringe 10 ml @ 5 mls/min DAILY@11 IV 03/03/17 11:00 04/02/17 10:59 03/03/17 11:40 5 MLS/MIN Metoprolol Tartrate (Lopressor Tab) 12.5 mg BID PO 03/03/17 09:00 04/02/17 08:59 03/04/17 07:37 12.5 MG Cefepime HCl 2000 mg/Syringe 20 ml @ 5 mls/min Q8H IV 03/03/17 12:00 03/10/17 11:59 03/04/17 04:26 5 MLS/MIN Insulin Aspart (novoLOG ASPART) SLIDING SCALE ACHS SC 03/03/17 12:00 04/02/17 11:59 03/04/17 07:39 25 UNITS Insulin Human NPH (novoLIN-N NPH) TIDM SC 03/03/17 12:00 04/02/17 11:59 03/04/17 07:40 25 UNITS Pregabalin (Lyrica Cap) 200 mg TID PO 03/04/17 09:00 04/03/17 08:59 I & O: 03/03/17 03/04/17 03/05/17 08:00 08:00 08:00 Intake Total 1631 ml 2073 ml Output Total 3175 ml 1800 ml Balance -1544 ml 273 ml Vital Signs: Date Time Temp Pulse Resp B/P (MAP) Pulse Ox O2 Delivery O2 Flow Rate FiO2 03/04/17 07:18 85 18 93 Nasal Cannula 3.0 03/04/17 06:00 64 19 131/63 (85) 96 BiPAP 50 03/04/17 05:00 84 27 135/61 (85) 96 BiPAP 50 03/04/17 04:00 37.2 83 19 138/64 (88) 97 BiPAP 50 03/04/17 04:00 BiPAP 50 03/04/17 03:01 82 32 151/64 (93) 97 BiPAP 50 03/04/17 02:00 76 20 151/68 (95) 97 BiPAP 50 03/04/17 01:00 79 22 141/65 (90) 95 BiPAP 50 03/04/17 00:01 BiPAP 50 03/04/17 00:00 37.3 80 20 146/67 (93) 95 BiPAP 50 76 03/03/17 23:59 88 98 50 03/03/17 23:00 82 24 142/66 (91) 94 BiPAP 50 03/03/17 22:00 54 19 145/74 (97) 97 BiPAP 50 03/03/17 21:01 84 25 143/65 (91) 95 Nasal Cannula 3.0 03/03/17 20:01 37.6 89 17 154/53 (86) 94 Nasal Cannula 3.0 03/03/17 20:00 Nasal Cannula 3.0 03/03/17 19:11 89 26 159/64 (95) 91 Nasal Cannula 3.0 03/03/17 19:00 94 28 159/64 (95) 93 Nasal Cannula 3.0 03/03/17 18:34 87 20 92 Nasal Cannula 3.0 03/03/17 18:00 91 30 148/64 (92) 91 Nasal Cannula 3.0 03/03/17 17:01 87 28 141/61 (87) 93 Nasal Cannula 3.0 03/03/17 16:00 37.0 87 31 161/58 (92) 93 Nasal Cannula 3.0 03/03/17 16:00 Nasal Cannula 3.0 03/03/17 15:00 91 32 156/66 (96) 90 Nasal Cannula 3.0 03/03/17 14:29 55 20 95 Nasal Cannula 4.0 03/03/17 14:00 84 21 156/70 (98) 97 Nasal Cannula 4.0 03/03/17 12:00 Nasal Cannula 4.0 03/03/17 12:00 36.9 91 23 166/75 (105) 94 Nasal Cannula 4.0 03/03/17 11:20 51 20 99 Nasal Cannula 6.0 03/03/17 10:01 91 19 148/69 (95) 92 Nasal Cannula 6.0 03/03/17 09:00 80 31 150/61 (90) 93 Nasal Cannula 4.0 03/03/17 08:00 BiPAP 03/03/17 08:00 37.0 83 30 157/67 (97) 94 Nasal Cannula 4.0 03/03/17 08:00 Nasal Cannula 4.0 Laboratory Results: Last 24 Hours Test 03/03/17 08:30 03/03/17 11:25 03/03/17 15:59 03/03/17 16:29 Bedside Glucose 144 mg/dl 230 mg/dl 182 mg/dl Sodium Level 138 mmol/L Potassium Level 3.2 mmol/L Chloride Level 99 mmol/L Carbon Dioxide Level 34 mmol/L Anion Gap 5.0 mmol/L Blood Urea Nitrogen 13 mg/dl Creatinine 0.84 mg/dl Est Creatinine Clear Calc Drug Dose 102.4 ml/min Estimated GFR () 83.4 Estimated GFR (Non- 71.9 BUN/Creatinine Ratio 15.2 Random Glucose 188 mg/dl Calcium Level 8.4 mg/dl Test 03/03/17 20:35 03/03/17 23:30 03/04/17 04:03 03/04/17 05:14 Bedside Glucose 157 mg/dl 191 mg/dl 179 mg/dl White Blood Count 13.10 K/uL Red Blood Count 4.56 M/uL Hemoglobin 11.0 g/dL Hematocrit 36.4 % Mean Corpuscular Volume 79.8 fL Mean Corpuscular Hemoglobin 24.1 pg Mean Corpuscular Hemoglobin Concent 30.2 g/dl RDW Standard Deviation 53.4 fL RDW Coefficient of Variation 18.4 % Platelet Count 164 K/uL Mean Platelet Volume 10.5 fL Venous Blood pH 7.40 Venous Blood Partial Pressure CO2 51 mmHg Venous Blood Partial Pressure O2 82 mmHg Venous Blood HCO3 31 mmol/L Venous Blood Oxygen Saturation 95.2 % Venous Blood Base Excess 5.5 mEq/L Sodium Level 138 mmol/L Potassium Level 3.3 mmol/L Chloride Level 101 mmol/L Carbon Dioxide Level 32 mmol/L Anion Gap 5.0 mmol/L Blood Urea Nitrogen 14 mg/dl Creatinine 1.07 mg/dl Est Creatinine Clear Calc Drug Dose 80.4 ml/min Estimated GFR () 62.2 Estimated GFR (Non- 53.7 BUN/Creatinine Ratio 13.2 Random Glucose 172 mg/dl Calcium Level 8.2 mg/dl Phosphorus Level 2.9 mg/dl Magnesium Level 1.8 mg/dl Test 03/04/17 07:13 Bedside Glucose 172 mg/dl Resident Tracking Resident Involvement: Resident Care Provided Care Provided: Adult Hospital Medicine
--- NOTE | 2017-03-04 09:16 | DIAGNOSTIC IMAGING REPORT ---
CHEST ONE VIEW PORTABLE CLINICAL HISTORY: pna COMPARISON STUDY: 03/03/2017 FINDINGS: Improved aeration of both lung bases. Right lung is approaching a near clarity. There is persisting consolidative change left base, although Slightly improved compared to the prior exam. IMPRESSION: Improving basilar infiltrates. Residual consolidative change left base. The above report was generated using voice recognition software. It may contain grammatical, syntax or spelling errors. Electronically signed by: Blayne Harmon M.D. 03/04/2017 9:14 AM Dictated Date/Time: 03/04/2017 9:13 AM
[2017-03-04] MEDS: PANTOprazole SOD 40 MG TAB PO SCH (09:47)
[2017-03-04] MEDS: LEVOTHYROXINE 100 MCG TAB PO SCH (09:47)
[2017-03-04] MEDS: PREGABALIN 100 MG CAP PO SCH ×3 (09:47→20:48)
--- NOTE | 2017-03-04 09:52 | Progress Note ---
Internal Med Progress Note Date of Service: Mar 04, 2017. Provider Documentation: SUBJECTIVE: Seen and examined at bedside More alert, awake today Reports cough with expectoration Denies chest pain, SOB, dizziness, abd pain, dysuria Saturating 93% on 3L NC Needs to continue BiPAP QHS No family at bedside OBJECTIVE: Vital Signs-as noted below Physical Exam: General Appearance:Obese, no apparent distress Head: normocephalic, Atraumatic Eyes: normal inspection, EOMI, PERRL Neck: supple, Trachea midline Respiratory/Chest: Decreased breath sounds, CTA Cardiovascular: S1, S2, No murmur Abdomen/GI:Soft, Non tender, Bowel sounds present Extremities/Musculoskelatal:normal inspection, Trace edema Neurologic/Psych: Grossly no focal deficits Skin: normal color, warm Lab data as noted below. ASSESSMENT & PLAN: Acute respiratory failure/Hypercarbia/Hypoxia Obesity hypoventilation Syndrome Metabolic Encephalopathy: Acute respiratory acidosis CT: no acute intracranial findings Appreciate Rn Eligibility help CXR:small left pleural effusion, left basilar densities, mild congestive change Repeat CXR: Improving basilar infiltrates. Residual consolidative change left base. Blood cultures: No growth to date Continue Nebs Lactate:normal Procalcitonin: 0.10 Empirically on IV Invanz Day # 4/7 Cefepime Day # 2/7 Urine Culture: Strep Species Extubated on 03/02/17 Persistent Leukocytosis Continue BiPAP QHS VBG with improved CO2 levels today More alert awake today Electrolyte Imbalances: Hypokalemia/Hypomagnesemia/Hypophosphatemia: Replace and monitor as needed H/O Diastolic Heart failure CXR: pulmonary vascular congestion and small left pleural effusion Continue Metoprolol Acetazolamide discontinued Lasix PRN DM II A1C: 7.7 Continue ISS, Basal Insulin Monitor Blood sugar levels Hypothyroidism: TSH, Free T4: normal Continue Levothyroxine Morbid Obesity: BMI:53.1 DVT Px: Lovenox SQ Code Status: DNR only Disposition: Transfer to [facility] Family Contact: Uri [phone] Vital Signs: Date Time Temp Pulse Resp B/P (MAP) Pulse Ox O2 Delivery O2 Flow Rate FiO2 03/04/17 08:01 37.2 91 24 129/71 (90) 93 Nasal Cannula 3.0 Humidified Oxygen 03/04/17 08:00 Nasal Cannula 3.0 Humidified Oxygen 03/04/17 07:18 85 18 93 Nasal Cannula 3.0 03/04/17 07:01 90 17 129/78 (95) 91 Nasal Cannula 3.0 03/04/17 06:00 64 19 131/63 (85) 96 BiPAP 50 03/04/17 05:00 84 27 135/61 (85) 96 BiPAP 50 03/04/17 04:00 37.2 83 19 138/64 (88) 97 BiPAP 50 03/04/17 04:00 BiPAP 50 03/04/17 03:01 82 32 151/64 (93) 97 BiPAP 50 03/04/17 02:00 76 20 151/68 (95) 97 BiPAP 50 03/04/17 01:00 79 22 141/65 (90) 95 BiPAP 50 03/04/17 00:01 BiPAP 50 03/04/17 00:00 37.3 80 20 146/67 (93) 95 BiPAP 50 76 03/03/17 23:59 88 98 50 03/03/17 23:00 82 24 142/66 (91) 94 BiPAP 50 03/03/17 22:00 54 19 145/74 (97) 97 BiPAP 50 03/03/17 21:01 84 25 143/65 (91) 95 Nasal Cannula 3.0 03/03/17 20:01 37.6 89 17 154/53 (86) 94 Nasal Cannula 3.0 03/03/17 20:00 Nasal Cannula 3.0 03/03/17 19:11 89 26 159/64 (95) 91 Nasal Cannula 3.0 03/03/17 19:00 94 28 159/64 (95) 93 Nasal Cannula 3.0 03/03/17 18:34 87 20 92 Nasal Cannula 3.0 03/03/17 18:00 91 30 148/64 (92) 91 Nasal Cannula 3.0 03/03/17 17:01 87 28 141/61 (87) 93 Nasal Cannula 3.0 03/03/17 16:00 37.0 87 31 161/58 (92) 93 Nasal Cannula 3.0 03/03/17 16:00 Nasal Cannula 3.0 03/03/17 15:00 91 32 156/66 (96) 90 Nasal Cannula 3.0 03/03/17 14:29 55 20 95 Nasal Cannula 4.0 1/18/18 14:00 84 21 156/70 (98) 97 Nasal Cannula 4.0 03/03/17 12:00 Nasal Cannula 4.0 03/03/17 12:00 36.9 91 23 166/75 (105) 94 Nasal Cannula 4.0 03/03/17 11:20 51 20 99 Nasal Cannula 6.0 03/03/17 10:01 91 19 148/69 (95) 92 Nasal Cannula 6.0 Lab Results: Results Past 24 Hours Test 03/03/17 11:25 03/03/17 15:59 03/03/17 16:29 03/03/17 20:35 Range/Units Bedside Glucose 230 182 157 70-90 mg/dl Sodium Level 138 136-145 mmol/L Potassium Level 3.2 3.5-5.1 mmol/L Chloride Level 99 98-107 mmol/L Carbon Dioxide Level 34 21-32 mmol/L Anion Gap 5.0 3-11 mmol/L Blood Urea Nitrogen 13 7-18 mg/dl Creatinine 0.84 0.60-1.20 mg/dl Est Creatinine Clear Calc Drug Dose 102.4 ml/min Estimated GFR () 83.4 Estimated GFR (Non- 71.9 BUN/Creatinine Ratio 15.2 10-20 Random Glucose 188 70-99 mg/dl Calcium Level 8.4 8.5-10.1 mg/dl Test 03/03/17 23:30 03/04/17 04:03 03/04/17 05:14 03/04/17 07:13 Range/Units Bedside Glucose 191 179 172 70-90 mg/dl White Blood Count 13.10 4.8-10.8 K/uL Red Blood Count 4.56 4.2-5.4 M/uL Hemoglobin 11.0 12.0-16.0 g/dL Hematocrit 36.4 37-47 % Mean Corpuscular Volume 79.8 80-100 fL Mean Corpuscular Hemoglobin 24.1 25-34 pg Mean Corpuscular Hemoglobin Concent 30.2 32-36 g/dl RDW Standard Deviation 53.4 36.4-46.3 fL RDW Coefficient of Variation 18.4 11.5-14.5 % Platelet Count 164 130-400 K/uL Mean Platelet Volume 10.5 7.4-10.4 fL Venous Blood pH 7.40 7.36-7.41 Venous Blood Partial Pressure CO2 51 38.0-50.0 mmHg Venous Blood Partial Pressure O2 82 mmHg Venous Blood HCO3 31 mmol/L Venous Blood Oxygen Saturation 95.2 % Venous Blood Base Excess 5.5 mEq/L Sodium Level 138 136-145 mmol/L Potassium Level 3.3 3.5-5.1 mmol/L Chloride Level 101 98-107 mmol/L Carbon Dioxide Level 32 21-32 mmol/L Anion Gap 5.0 3-11 mmol/L Blood Urea Nitrogen 14 7-18 mg/dl Creatinine 1.07 0.60-1.20 mg/dl Est Creatinine Clear Calc Drug Dose 80.4 ml/min Estimated GFR () 62.2 Estimated GFR (Non- 53.7 BUN/Creatinine Ratio 13.2 10-20 Random Glucose 172 70-99 mg/dl Calcium Level 8.2 8.5-10.1 mg/dl Phosphorus Level 2.9 2.5-4.9 mg/dl Magnesium Level 1.8 1.8-2.4 mg/dl
--- NOTE | 2017-03-04 10:37 | Pharmacy Progress Note ---
Glycemic Control Progress Note Date of Service Mar 04, 2017. Scope Glycemic Pharmacist consulted for glycemic control to write orders per [facility] inpatient glycemic control protocol. Objective Accuchecks BSG (last 24hrs): Test 03/03/17 11:25 03/03/17 15:59 03/03/17 16:29 03/03/17 20:35 Bedside Glucose 230 mg/dl (70-90) 182 mg/dl (70-90) 157 mg/dl (70-90) Random Glucose 188 mg/dl (70-99) Test 03/03/17 23:30 03/04/17 04:03 03/04/17 05:14 03/04/17 07:13 Bedside Glucose 191 mg/dl (70-90) 179 mg/dl (70-90) 172 mg/dl (70-90) Random Glucose 172 mg/dl (70-99) HbA1c: Test 03/02/17 05:20 Hemoglobin A1c 7.7 % (4.5-5.6) H Recent Pertinent Medications Outpatient Anti-diabetic Regimen: * Novolin N Relion 73 units SC AC * Insulin regular 33 untis SC AC * Metformin ER 1000 mg po daily * A1c 7.7% on 03/02/17 Assessment & Plan ASSESSMENT: * 66 yo F with T2DM well-known to our service admitted to ICU for acute respiratory failure * History of severe allergy to some types of insulin - patient tolerates NPH and Novolog per previous admissions therefore will use again * Previous admission November 2016 * Patient received ~130-150 units of insulin per day * ~50/50 split of NPH/Novolog * BSG's usually ranged 100-180 mg/dL * Patient consumed ~40-60g CHO per meal * BSG's ranging 157-248 mg/dL over the last 24 hours * Will slightly increase NPH 2nd AM fasting 172 mg/dL * Will decrease goal range of Novolog order (which will increase Novolog administered) * Will tighten carb ratio at breakfast only as BSG up to 248 mg/dL at lunch today and per pt admission history, tends to be highest at lunch * Of note, patient ordered honey po ACHS prn - Novolog ordered to cover CHO in honey PLAN FOR INPATIENT GLYCEMIC CONTROL: * Hold outpatient oral diabetes medication - metformin * Increase basal insulin with NPH SC TIDM * 10 units for BSG less than 120 mg/dL * 25 units for BSG 120-160 mg/dL * 30 units for BSG 161-200 mg/dL * 35 units for BSG greater than 200 mg/dL * Correctional Insulin with NOVOLOG - ACHS and two overnight checks * Decrease Goal Range: Low 110 mg/dL - High 140 mg/dL * Correction Factor: 8 mg/dL/unit * Nutritional / Prandial insulin per carb ratio of 1 unit per 3 grams CHO consumed at lunch, dinner, bedtime. Tighten to 2.5 at breakfast only. * Please note that the plan above was derived based on current level of insulin resistance and hospital stress. These recommendations are appropriate for inpatient admission only. Plan of care upon discharge will need to be reassessed to avoid potential outpatient hypo/hyperglycemia. Thank you.
[2017-03-04] MEDS: ERTAPENEM IV 1 GM in SODIUM CHLOR 0.9% AD-VAN 50ML 50 ML IV SCH (17:05)
[2017-03-04] MEDS: MONTELUKAST SOD 10 MG TAB PO SCH (21:40)
[2017-03-05] VITALS (12 sets, daily range): BP systolic 121–136; BP diastolic 60–67; PULSE 68–93; TEMP 36.7–37.2; O2SAT 92–97
[2017-03-05] MEDS: INSULIN ASPART 100 UNITS/ML 3 ML PEN SC SCH ×6 (01:06→21:00)
[2017-03-05] MEDS: CEFEPIME IV 2,000 MG in SYRINGE 7.5 ML IV SCH ×3 (04:33→20:54)
[2017-03-05 05:29] LABS: HEMATOCRIT 35.7 % (37-47); HEMOGLOBIN 10.7 g/dL (12.0-16.0); MEAN PLATELET VOLUME 10.8 fL (7.4-10.4); PLATELET COUNT 159 K/uL (130-400); RED CELL DISTRIBUTION WIDTH CV 18.6 % (11.5-14.5); RED CELL DISTRIBUTION WIDTH SD 53.7 fL (36.4-46.3)
[2017-03-05 05:46] LABS: CALCIUM 8.6 mg/dl (8.5-10.1); CREATININE 1.12 mg/dl (0.60-1.20); PHOSPHORUS 3.4 mg/dl (2.5-4.9); POTASSIUM 3.7 mmol/L (3.5-5.1)
[2017-03-05] MEDS: LEVOTHYROXINE 100 MCG TAB PO SCH (06:34)
[2017-03-05] MEDS: ALBUT/IPRATROP 3MG/0.5MG NEB 3 ML VIAL INH SCH ×4 (07:41→20:20)
[2017-03-05] MEDS: INSULIN HUMAN NPH SC SCH ×3 (08:42→16:51)
[2017-03-05] MEDS: PANTOprazole SOD 40 MG TAB PO SCH (08:44)
[2017-03-05] MEDS: METOPROLOL TARTRATE 25 MG TAB PO SCH ×2 (08:44→20:55)
[2017-03-05] MEDS: ENOXAPARIN 40 MG/0.4 ML SYR SQ SCH ×2 (08:45→20:58)
[2017-03-05] MEDS: URSODIOL 300 MG CAP PO SCH ×2 (08:45→20:56)
[2017-03-05] MEDS: ASPIRIN 81 MG CHEW PO SCH (08:45)
[2017-03-05] MEDS: TIOTROPIUM BROMIDE 5 PUFF/90 MCG INH INH SCH (08:46)
--- NOTE | 2017-03-05 08:46 | Progress Note ---
Internal Med Progress Note Date of Service: Mar 05, 2017. Provider Documentation: SUBJECTIVE: Seen and examined at bedside Doing much better this morning Less cough Reports sore throat is improving Denies chest pain, SOB, dizziness, abd pain, dysuria Saturating 95% on 3L NC No other complaints OBJECTIVE: Vital Signs-as noted below Physical Exam: General Appearance:Obese, no apparent distress Head: normocephalic, Atraumatic Eyes: normal inspection, EOMI, PERRL Neck: supple, Trachea midline Respiratory/Chest: Decreased breath sounds, CTA Cardiovascular: S1, S2, No murmur Abdomen/GI:Soft, Non tender, Bowel sounds present Extremities/Musculoskelatal:normal inspection, Trace edema Neurologic/Psych: Grossly no focal deficits Skin: normal color, warm Lab data as noted below. ASSESSMENT & PLAN: Acute respiratory failure/Hypercarbia/Hypoxia Obesity hypoventilation Syndrome Metabolic Encephalopathy: Acute respiratory acidosis Encephalopathy resolved CT: no acute intracranial findings Appreciate Company Manager help CXR:small left pleural effusion, left basilar densities, mild congestive change Repeat CXR: Improving basilar infiltrates. Residual consolidative change left base. Blood cultures: No growth to date Continue Nebs Lactate:normal Procalcitonin: 0.10 Empirically on IV Invanz Day # 5/7 Cefepime Day # 3/7 Urine Culture: Enterococcus faecalis Extubated on 03/02/17 Leukocytosis normalized, afebrile Continue BiPAP QHS Wean off Oxygen as able Electrolyte Imbalances: Hypokalemia/Hypomagnesemia/Hypophosphatemia: Replace and monitor as needed H/O Diastolic Heart failure CXR: pulmonary vascular congestion and small left pleural effusion Continue Metoprolol Acetazolamide discontinued Lasix PRN DM II A1C: 7.7 Continue ISS, Basal Insulin Monitor Blood sugar levels Diabetic diet Hypothyroidism: TSH, Free T4: normal Continue Levothyroxine Morbid Obesity: BMI:53.1 DVT Px: Lovenox SQ Code Status: DNR only Disposition: Continue to monitor in Tele Family Contact: Uri [phone] Vital Signs: Date Time Temp Pulse Resp B/P (MAP) Pulse Ox O2 Delivery O2 Flow Rate FiO2 03/05/17 07:42 82 18 95 Nasal Cannula 3.0 03/05/17 05:08 80 93 40 03/05/17 04:00 BiPAP 03/05/17 04:00 37.1 80 24 121/60 (80) 92 BiPAP 03/05/17 02:16 85 92 40 03/04/17 23:59 Nasal Cannula 3.0 03/04/17 23:59 37.2 93 20 123/61 (81) 94 BiPAP 03/04/17 22:17 89 96 40 03/04/17 20:30 87 18 92 Nasal Cannula 3.0 03/04/17 20:00 37.3 85 21 137/59 (85) 96 Nasal Cannula 3.0 03/04/17 20:00 Nasal Cannula 3.0 03/04/17 16:00 37.0 97 24 151/65 (93) 93 Nasal Cannula 3.0 Humidified Oxygen 03/04/17 16:00 Nasal Cannula 3.0 Humidified Oxygen 03/04/17 14:39 90 18 93 Nasal Cannula 3.0 03/04/17 12:00 Nasal Cannula 3.0 Humidified Oxygen 03/04/17 12:00 37.3 74 16 137/63 (87) 93 Nasal Cannula 3.0 Humidified Oxygen 03/04/17 11:12 81 18 93 Nasal Cannula 3.0 Lab Results: Results Past 24 Hours Test 03/04/17 11:18 03/04/17 16:04 03/04/17 20:45 03/05/17 01:01 Range/Units Bedside Glucose 248 247 137 169 70-90 mg/dl Test 03/05/17 04:29 03/05/17 05:16 03/05/17 06:42 Range/Units Bedside Glucose 160 163 70-90 mg/dl White Blood Count 10.20 4.8-10.8 K/uL Red Blood Count 4.46 4.2-5.4 M/uL Hemoglobin 10.7 12.0-16.0 g/dL Hematocrit 35.7 37-47 % Mean Corpuscular Volume 80.0 80-100 fL Mean Corpuscular Hemoglobin 24.0 25-34 pg Mean Corpuscular Hemoglobin Concent 30.0 32-36 g/dl RDW Standard Deviation 53.7 36.4-46.3 fL RDW Coefficient of Variation 18.6 11.5-14.5 % Platelet Count 159 130-400 K/uL Mean Platelet Volume 10.8 7.4-10.4 fL Venous Blood pH 7.33 7.36-7.41 Venous Blood Partial Pressure CO2 59 38.0-50.0 mmHg Venous Blood Partial Pressure O2 67 mmHg Venous Blood HCO3 31 mmol/L Venous Blood Oxygen Saturation 90.6 % Venous Blood Base Excess 3.9 mEq/L Sodium Level 139 136-145 mmol/L Potassium Level 3.7 3.5-5.1 mmol/L Chloride Level 102 98-107 mmol/L Carbon Dioxide Level 32 21-32 mmol/L Anion Gap 5.0 3-11 mmol/L Blood Urea Nitrogen 18 7-18 mg/dl Creatinine 1.12 0.60-1.20 mg/dl Est Creatinine Clear Calc Drug Dose 77.2 ml/min Estimated GFR () 58.9 Estimated GFR (Non- 50.8 BUN/Creatinine Ratio 16.2 10-20 Random Glucose 155 70-99 mg/dl Calcium Level 8.6 8.5-10.1 mg/dl Phosphorus Level 3.4 2.5-4.9 mg/dl Magnesium Level 2.1 1.8-2.4 mg/dl
[2017-03-05] MEDS: FLUTICASONE PROPIONATE NA SPR 16 GM BTL NAE SCH (08:47)
[2017-03-05] MEDS: NYSTATIN CR 15 GM TUBE EXT SCH ×2 (08:48→20:54)
[2017-03-05] MEDS: PREGABALIN 100 MG CAP PO SCH ×3 (08:49→20:54)
[2017-03-05] MEDS: ERTAPENEM IV 1 GM in SODIUM CHLOR 0.9% AD-VAN 50ML 50 ML IV SCH (16:51)
[2017-03-05] MEDS: MONTELUKAST SOD 10 MG TAB PO SCH (20:55)
[2017-03-06] VITALS (10 sets, daily range): BP systolic 113–141; BP diastolic 58–75; PULSE 62–93; TEMP 36.9–37.3; O2SAT 94–98
[2017-03-06] MEDS: CEFEPIME IV 2,000 MG in SYRINGE 7.5 ML IV SCH ×3 (04:14→20:12)
[2017-03-06 05:54] LABS: HEMATOCRIT 36.2 % (37-47); HEMOGLOBIN 10.8 g/dL (12.0-16.0); MEAN CELL VOLUME 79.4 fL (80-100); MEAN CORPUSCULAR HEMOGLOBIN 23.7 pg (25-34); MEAN CORPUSCULAR HGB CONC 29.8 g/dl (32-36); MEAN PLATELET VOLUME 10.3 fL (7.4-10.4); PLATELET COUNT 155 K/uL (130-400); RED CELL DISTRIBUTION WIDTH CV 18.5 % (11.5-14.5); RED CELL DISTRIBUTION WIDTH SD 52.9 fL (36.4-46.3); WHITE BLOOD COUNT 10.58 K/uL (4.8-10.8)
[2017-03-06] MEDS: LEVOTHYROXINE 100 MCG TAB PO SCH (05:56)
[2017-03-06 06:29] LABS: CALCIUM 8.5 mg/dl (8.5-10.1); CREATININE 1.12 mg/dl (0.60-1.20); POTASSIUM 3.5 mmol/L (3.5-5.1)
[2017-03-06] MEDS: ALBUT/IPRATROP 3MG/0.5MG NEB 3 ML VIAL INH SCH ×4 (07:27→20:07)
[2017-03-06] MEDS: INSULIN HUMAN NPH SC SCH ×3 (07:55→18:13)
[2017-03-06] MEDS: INSULIN ASPART 100 UNITS/ML 3 ML PEN SC SCH ×4 (07:57→21:41)
[2017-03-06] MEDS ORDERED: POTASSIUM CHLORIDE 20 MEQ TABCR PO ONE (08:15)
--- NOTE | 2017-03-06 08:37 | Progress Note ---
Internal Med Progress Note Date of Service: Mar 06, 2017. Provider Documentation: SUBJECTIVE: Seen and examined at bedside Less cough Sore throat resolved Denies chest pain, SOB, dizziness, abd pain, dysuria Saturating 97% on 3L NC No other complaints OBJECTIVE: Vital Signs-as noted below Physical Exam: General Appearance:Obese, no apparent distress Head: normocephalic, Atraumatic Eyes: normal inspection, EOMI, PERRL Neck: supple, Trachea midline Respiratory/Chest: Decreased breath sounds, CTA Cardiovascular: S1, S2, No murmur Abdomen/GI:Soft, Non tender, Bowel sounds present Extremities/Musculoskelatal:normal inspection, Trace edema Neurologic/Psych: Grossly no focal deficits Skin: normal color, warm Lab data as noted below. ASSESSMENT & PLAN: Acute respiratory failure/Hypercarbia/Hypoxia Obesity hypoventilation Syndrome Chronic Oxygen dependency: 2L at baseline Metabolic Encephalopathy: Acute respiratory acidosis Encephalopathy resolved CT: no acute intracranial findings Appreciate Program Manager Environmental Planning help CXR:small left pleural effusion, left basilar densities, mild congestive change Repeat CXR: Improving basilar infiltrates. Residual consolidative change left base. Blood cultures: No growth to date Continue Nebs Lactate:normal Procalcitonin: 0.10 Empirically on IV Invanz Day # 6/7 Cefepime Day # 4/7 Urine Culture: Enterococcus faecalis Extubated on 03/02/17 Leukocytosis normalized, afebrile Continue BiPAP QHS Wean Oxygen to 2L as able (Her baseline) Electrolyte Imbalances: Hypokalemia/Hypomagnesemia/Hypophosphatemia: Monitor H/O Diastolic Heart failure CXR: pulmonary vascular congestion and small left pleural effusion Continue Metoprolol Acetazolamide discontinued Lasix PRN DM II A1C: 7.7 Continue ISS, Basal Insulin Monitor Blood sugar levels Diabetic diet Hypothyroidism: TSH, Free T4: normal Continue Levothyroxine Morbid Obesity: BMI:53.1 DVT Px: Lovenox SQ Code Status: DNR only Disposition: Plan to discharge home when stable Family Contact: Uri [phone] Vital Signs: Date Time Temp Pulse Resp B/P (MAP) Pulse Ox O2 Delivery O2 Flow Rate FiO2 03/06/17 07:45 78 18 97 Nasal Cannula 3.0 03/06/17 04:00 98 BiPAP 03/06/17 04:00 37.3 77 20 113/58 (76) 97 BiPAP 03/05/17 23:59 94 Nasal Cannula 4.0 03/05/17 23:59 37.2 Nasal Cannula 4.0 03/05/17 22:03 93 95 40 03/05/17 20:30 86 23 93 Non-Rebreather 3.0 03/05/17 20:00 94 Nasal Cannula 4.0 03/05/17 20:00 37.2 88 24 130/63 (85) 95 Nasal Cannula 4.0 03/05/17 16:00 94 Nasal Cannula 3.0 03/05/17 16:00 36.7 84 19 123/67 (85) 94 Nasal Cannula 3.0 03/05/17 12:00 36.7 71 16 136/67 (90) 92 Nasal Cannula 3.0 03/05/17 12:00 92 Nasal Cannula 3.0 03/05/17 11:18 90 18 95 Nasal Cannula 3.0 Lab Results: Results Past 24 Hours Test 03/05/17 11:17 03/05/17 16:44 03/05/17 20:39 03/06/17 05:36 Range/Units Bedside Glucose 235 178 171 70-90 mg/dl White Blood Count 10.58 4.8-10.8 K/uL Red Blood Count 4.56 4.2-5.4 M/uL Hemoglobin 10.8 12.0-16.0 g/dL Hematocrit 36.2 37-47 % Mean Corpuscular Volume 79.4 80-100 fL Mean Corpuscular Hemoglobin 23.7 25-34 pg Mean Corpuscular Hemoglobin Concent 29.8 32-36 g/dl RDW Standard Deviation 52.9 36.4-46.3 fL RDW Coefficient of Variation 18.5 11.5-14.5 % Platelet Count 155 130-400 K/uL Mean Platelet Volume 10.3 7.4-10.4 fL Sodium Level 139 136-145 mmol/L Potassium Level 3.5 3.5-5.1 mmol/L Chloride Level 103 98-107 mmol/L Carbon Dioxide Level 33 21-32 mmol/L Anion Gap 3.0 3-11 mmol/L Blood Urea Nitrogen 17 7-18 mg/dl Creatinine 1.12 0.60-1.20 mg/dl Est Creatinine Clear Calc Drug Dose 77.5 ml/min Estimated GFR () 58.9 Estimated GFR (Non- 50.8 BUN/Creatinine Ratio 15.4 10-20 Random Glucose 163 70-99 mg/dl Calcium Level 8.5 8.5-10.1 mg/dl Test 03/06/17 06:42 Range/Units Bedside Glucose 163 70-90 mg/dl
[2017-03-06] MEDS: METOPROLOL TARTRATE 25 MG TAB PO SCH ×2 (08:52→21:42)
[2017-03-06] MEDS: PANTOprazole SOD 40 MG TAB PO SCH (08:52)
[2017-03-06] MEDS: FLUTICASONE PROPIONATE NA SPR 16 GM BTL NAE SCH (08:52)
[2017-03-06] MEDS: ASPIRIN 81 MG CHEW PO SCH (08:52)
[2017-03-06] MEDS: PREGABALIN 100 MG CAP PO SCH ×3 (08:52→21:59)
[2017-03-06] MEDS: TIOTROPIUM BROMIDE 5 PUFF/90 MCG INH INH SCH (08:52)
[2017-03-06] MEDS: URSODIOL 300 MG CAP PO SCH ×2 (08:52→21:43)
[2017-03-06] MEDS: ENOXAPARIN 40 MG/0.4 ML SYR SQ SCH ×2 (08:53→21:43)
[2017-03-06] MEDS: NYSTATIN CR 15 GM TUBE EXT SCH ×2 (09:02→21:43)
--- NOTE | 2017-03-06 15:13 | Pharmacy Progress Note ---
Glycemic Control Progress Note Date of Service Mar 06, 2017. Scope Glycemic Pharmacist consulted for glycemic control to write orders per [facility] inpatient glycemic control protocol. Objective Accuchecks BSG (last 24hrs): Test 03/05/17 16:44 03/05/17 20:39 03/06/17 05:36 03/06/17 06:42 Bedside Glucose 178 mg/dl (70-90) 171 mg/dl (70-90) 163 mg/dl (70-90) Random Glucose 163 mg/dl (70-99) HbA1c: Test 03/02/17 05:20 Hemoglobin A1c 7.7 % (4.5-5.6) H Recent Pertinent Medications The patient is currently receiving: * Basal insulin: NPH 45 units TID with meals * Correctional Insulin: Novolog Correction per scale ACHS Goal Range: Low 110 mg/dL - High 140 mg/dL Correction Factor: 8 mg/dL/unit * Prandial insulin: Per carb ratio of 1 unit per 2.5 grams CHO consumed w/ breakfast + 3gm CHO consumed with lunch and dinner Outpatient Anti-Diabetic Meds Novolin N 73 units w/ meals Regular insulin 33 units w/ meals Metformin ER 1gm PO daily Assessment & Plan ASSESSMENT: 03/06/17 * BSGs have ranged 171-235 over the last 24 hours * NPH doses have been titrated up over the last 24 hrs with some improvement in BSGs however pre-lunch hyperglycemia still seen and fasting AM BSGs are still a little elevated. Will continue to titrate the NPH dose upwards * CR and CF are performing fairly well. Might consider increasing the prandial dose w/ breakfast if prelunch hyperglycemia continues despite upwards titration of NPH PLAN FOR INPATIENT GLYCEMIC CONTROL: * Increasing NPH to 50 units SQ TID w/ meals * Continuing correction factor of 8 mg/dl/unit * Continuing carb ratio of 1 unit per 2.5 grams CHO consumed w/ breakfast + 1 unit per 3grams CHO consumes w/ lunch and dinner * Continuing goal range of Low 110 mg/dL - High 140 mg/dL * Please note that the plan above was derived based on current level of insulin resistance and hospital stress. These recommendations are appropriate for inpatient admission only. Plan of care upon discharge will need to be reassessed to avoid potential outpatient hypo/hyperglycemia. Thank you.
[2017-03-06] MEDS: ERTAPENEM IV 1 GM in SODIUM CHLOR 0.9% AD-VAN 50ML 50 ML IV SCH (17:11)
[2017-03-06] MEDS ORDERED: LORATADINE 10 MG TAB PO ONE (20:15)
[2017-03-06] MEDS: MONTELUKAST SOD 10 MG TAB PO SCH (21:42)
[2017-03-07] VITALS (7 sets, daily range): BP systolic 122–145; BP diastolic 57–73; PULSE 77–88; TEMP 36.9–37.5; O2SAT 94–97
[2017-03-07] MEDS: CEFEPIME IV 2,000 MG in SYRINGE 7.5 ML IV SCH ×3 (03:48→21:28)
[2017-03-07] MEDS: LEVOTHYROXINE 100 MCG TAB PO SCH (05:49)
[2017-03-07 06:59] LABS: CALCIUM 8.7 mg/dl (8.5-10.1); CREATININE 1.02 mg/dl (0.60-1.20); POTASSIUM 3.6 mmol/L (3.5-5.1)
[2017-03-07] MEDS: ALBUT/IPRATROP 3MG/0.5MG NEB 3 ML VIAL INH SCH (08:26)
[2017-03-07] MEDS: FLUTICASONE PROPIONATE NA SPR 16 GM BTL NAE SCH (08:41)
[2017-03-07] MEDS: ASPIRIN 81 MG CHEW PO SCH (08:42)
[2017-03-07] MEDS: URSODIOL 300 MG CAP PO SCH ×2 (08:42→21:47)
[2017-03-07] MEDS: METOPROLOL TARTRATE 25 MG TAB PO SCH ×2 (08:43→21:49)
[2017-03-07] MEDS: PREGABALIN 100 MG CAP PO SCH ×3 (08:47→21:47)
[2017-03-07] MEDS: ENOXAPARIN 40 MG/0.4 ML SYR SQ SCH ×2 (08:48→21:53)
[2017-03-07] MEDS: INSULIN HUMAN NPH SC SCH ×3 (08:54→18:27)
[2017-03-07] MEDS: INSULIN ASPART 100 UNITS/ML 3 ML PEN SC SCH ×4 (08:55→21:46)
[2017-03-07] MEDS: TIOTROPIUM BROMIDE 5 PUFF/90 MCG INH INH SCH (08:58)
[2017-03-07] MEDS: NYSTATIN CR 15 GM TUBE EXT SCH ×2 (08:58→21:47)
[2017-03-07] MEDS: PANTOprazole SOD 40 MG TAB PO SCH (10:52)
[2017-03-07] MEDS ORDERED: ALBUT/IPRATROP 3MG/0.5MG NEB 3 ML VIAL INH PRN (12:00)
--- NOTE | 2017-03-07 16:44 | Progress Note ---
Internal Med Progress Note Date of Service: Mar 07, 2017. Provider Documentation: SUBJECTIVE: Seen and examined at bedside Reports generalized Itching Less cough Denies chest pain, SOB, dizziness, abd pain, dysuria Saturating 94% on 4L NC No other complaints Eager to get discharged OBJECTIVE: Vital Signs-as noted below Physical Exam: General Appearance:Obese, no apparent distress Head: normocephalic, Atraumatic Eyes: normal inspection, EOMI, PERRL Neck: supple, Trachea midline Respiratory/Chest: Decreased breath sounds, CTA Cardiovascular: S1, S2, No murmur Abdomen/GI:Soft, Non tender, Bowel sounds present Extremities/Musculoskelatal:normal inspection, Trace edema Neurologic/Psych: Grossly no focal deficits Skin: normal color, warm Lab data as noted below. ASSESSMENT & PLAN: Acute respiratory failure/Hypercarbia/Hypoxia Obesity hypoventilation Syndrome Chronic Oxygen dependency: 2L at baseline Metabolic Encephalopathy: Acute respiratory acidosis Encephalopathy resolved CT: no acute intracranial findings Appreciate Assistant Import Manager help CXR:small left pleural effusion, left basilar densities, mild congestive change Repeat CXR: Improving basilar infiltrates. Residual consolidative change left base. Blood cultures: No growth to date Continue Nebs Lactate:normal Procalcitonin: 0.10 Empirically on IV Invanz Day # 7/7 Cefepime Day # 5/7 Urine Culture: Enterococcus faecalis Extubated on 03/02/17 Leukocytosis normalized, afebrile Continue BiPAP QHS Wean Oxygen to 2L as able (Her baseline) continue current management Electrolyte Imbalances: Hypokalemia/Hypomagnesemia/Hypophosphatemia: Resolved Monitor H/O Diastolic Heart failure CXR: pulmonary vascular congestion and small left pleural effusion Continue Metoprolol Acetazolamide discontinued Lasix PRN DM II A1C: 7.7 Continue ISS, Basal Insulin Monitor Blood sugar levels Diabetic diet Hypothyroidism: TSH, Free T4: normal Continue Levothyroxine Morbid Obesity: BMI:53.1 DVT Px: Lovenox SQ Code Status: DNR only Disposition: Plan to discharge home when stable. Family Contact: Uri [phone] Vital Signs: Date Time Temp Pulse Resp B/P (MAP) Pulse Ox O2 Delivery O2 Flow Rate FiO2 03/07/17 14:49 36.9 84 18 145/70 (95) 94 Nasal Cannula 4.0 03/07/17 07:45 Nasal Cannula 4.0 03/07/17 07:30 79 20 96 Nasal Cannula 4.0 03/07/17 07:15 37.0 77 22 122/71 (88) 94 Nasal Cannula 4.0 03/07/17 05:51 77 94 Nasal Cannula 4.0 03/07/17 00:05 BiPAP 40 03/06/17 22:50 36.9 93 22 135/75 (95) 96 BiPAP 03/06/17 22:00 85 95 40 03/06/17 21:36 86 23 94 Nasal Cannula 3.0 03/06/17 21:34 74 141/73 (95) Lab Results: Results Past 24 Hours Test 03/06/17 17:05 03/06/17 20:23 03/07/17 05:11 03/07/17 08:09 Range/Units Bedside Glucose 191 162 176 70-90 mg/dl Sodium Level 138 136-145 mmol/L Potassium Level 3.6 3.5-5.1 mmol/L Chloride Level 104 98-107 mmol/L Carbon Dioxide Level 29 21-32 mmol/L Anion Gap 5.0 3-11 mmol/L Blood Urea Nitrogen 17 7-18 mg/dl Creatinine 1.02 0.60-1.20 mg/dl Est Creatinine Clear Calc Drug Dose 85.3 ml/min Estimated GFR () 65.9 Estimated GFR (Non- 56.9 BUN/Creatinine Ratio 17.0 10-20 Random Glucose 165 70-99 mg/dl Calcium Level 8.7 8.5-10.1 mg/dl Test 03/07/17 11:59 Range/Units Bedside Glucose 249 70-90 mg/dl
[2017-03-07] MEDS ORDERED: LORATADINE 10 MG TAB PO PRN (17:00)
[2017-03-07] MEDS: ONDANSETRON 4 MG TAB PO PRN (18:11)
[2017-03-07] MEDS: ERTAPENEM IV 1 GM in SODIUM CHLOR 0.9% AD-VAN 50ML 50 ML IV SCH (18:13)
[2017-03-07] MEDS: MONTELUKAST SOD 10 MG TAB PO SCH (21:48)
[2017-03-08] MEDS: CEFEPIME IV 2,000 MG in SYRINGE 7.5 ML IV SCH ×3 (03:38→21:12)
[2017-03-08] MEDS: LEVOTHYROXINE 100 MCG TAB PO SCH (05:32)
[2017-03-08 07:46] VITALS: BP 138/67; PULSE 76; TEMP 36.7; O2SAT 95
[2017-03-08 09:09] LABS: HEMOGLOBIN 11.1 g/dL (12.0-16.0)
[2017-03-08] MEDS: INSULIN HUMAN NPH SC SCH ×3 (09:15→17:57)
[2017-03-08] MEDS: INSULIN ASPART 100 UNITS/ML 3 ML PEN SC SCH ×4 (09:16→21:41)
[2017-03-08] MEDS: FLUTICASONE PROPIONATE NA SPR 16 GM BTL NAE SCH (09:18)
[2017-03-08] MEDS: NYSTATIN CR 15 GM TUBE EXT SCH ×2 (09:18→21:12)
[2017-03-08] MEDS: URSODIOL 300 MG CAP PO SCH ×2 (09:19→21:13)
[2017-03-08] MEDS: PANTOprazole SOD 40 MG TAB PO SCH (09:19)
[2017-03-08] MEDS: ENOXAPARIN 40 MG/0.4 ML SYR SQ SCH ×2 (09:20→21:17)
[2017-03-08 09:21] VITALS: BP 135/71; PULSE 77
[2017-03-08] MEDS: METOPROLOL TARTRATE 25 MG TAB PO SCH ×2 (09:22→21:14)
[2017-03-08] MEDS: PREGABALIN 100 MG CAP PO SCH ×3 (09:27→21:22)
[2017-03-08 10:21] LABS: CALCIUM 8.6 mg/dl (8.5-10.1); CREATININE 0.96 mg/dl (0.60-1.20); POTASSIUM 3.8 mmol/L (3.5-5.1)
[2017-03-08] MEDS: TIOTROPIUM BROMIDE 5 PUFF/90 MCG INH INH SCH (11:24)
[2017-03-08] MEDS: ASPIRIN 81 MG CHEW PO SCH (11:26)
--- NOTE | 2017-03-08 14:45 | Pharmacy Progress Note ---
Pharmacy Glycemic Short Note 2 Date of Service Mar 08, 2017. OUTPATIENT ANTIDIABETIC REGIMEN: * Novolin N 73 units w/ meals * Regular insulin 33 units w/ meals * Metformin ER 1gm PO daily * HbA1c: 7.7% (03/02/17) ASSESSMENT: * BSGs have ranged 163-189 over the last 24 hours * NPH was titrated up a couple of days ago and BSGs have improved since then. * CR and CF are performing fairly well. Might consider increasing the prandial dose w/ breakfast if prelunch hyperglycemia continues despite upwards titration of NPH PLAN FOR INPATIENT GLYCEMIC CONTROL: * Continue NPH to 50 units SQ TID w/ meals * Continue correction factor of 8 mg/dl/unit * Continue carb ratio of 1 unit per 2.5 grams CHO consumed w/ breakfast + 1 unit per 3grams CHO consumes w/ lunch and dinner * Continue goal range of Low 110 mg/dL - High 140 mg/dL PLAN FOR DISCHARGE: * Patient's A1c indicates that glycemic control is reasonable as an outpatient. * Expect that patient will likely be able to resume home regimen on discharge. * Please note that the plan above was derived based on current level of insulin resistance and hospital stress. These recommendations are appropriate for inpatient admission only. Plan of care upon discharge will need to be reassessed to avoid potential outpatient hypo/hyperglycemia. Thank you.
--- NOTE | 2017-03-08 14:51 | Progress Note ---
Medicine Progress Note Date & Time of Visit: Mar 08, 2017 at 14:44. Subjective Patient denies any complaints, is hoping to go home tomorrow. at the bedside and updated. No overnight events noted. Tolerating PO without difficulty. Has had diarrhea but feels it is improving. No other complaints at this time. Objective Last 8 Hrs Date Time Temp Pulse Resp B/P (MAP) Pulse Ox O2 Delivery O2 Flow Rate FiO2 03/08/17 09:21 77 135/71 (92) 03/08/17 07:50 Nasal Cannula 4.0 03/08/17 07:46 36.7 76 16 138/67 (90) 95 Nasal Cannula 4.0 Physical Exam: GENERAL: Patient is in no acute distress. HEENT: No acute trauma, normocephalic atraumatic, mucous membranes moist, no nasal congestion, no scleral icterus, conjunctivae clear. NECK: No stridor, trachea is midline. LUNGS: Diminished bilaterally, no wheeze, no rhonchi, breath sounds equal. HEART: Without murmurs gallops or rubs, regular rate and rhythm. ABDOMEN: Soft, nontender, bowel sounds positive, obese-unable to assess organomegaly EXTREMITIES: No cyanosis or edema, moving all 4 extremities in limited ROM NEUROLOGIC: Oriented x 3, no acute motor or sensory deficits, no focal weakness. SKIN: No rash, no jaundice, no diaphoresis. Laboratory Results: Last 24 Hours Test 03/07/17 17:19 03/07/17 20:45 03/08/17 08:12 03/08/17 08:17 Bedside Glucose 176 mg/dl 173 mg/dl 163 mg/dl Hemoglobin 11.1 g/dL Hematocrit 37.0 % Sodium Level 139 mmol/L Potassium Level 3.8 mmol/L Chloride Level 104 mmol/L Carbon Dioxide Level 31 mmol/L Anion Gap 4.0 mmol/L Blood Urea Nitrogen 17 mg/dl Creatinine 0.96 mg/dl Est Creatinine Clear Calc Drug Dose 90.7 ml/min Estimated GFR () 70.9 Estimated GFR (Non- 61.2 BUN/Creatinine Ratio 17.4 Random Glucose 160 mg/dl Calcium Level 8.6 mg/dl Date/Time Source Procedure Growth Status 03/07/17 22:18 Nasal MRSA DNA Surveillance Screen - Final Specimen Negative for MRSA by DNA Probe Complete Assessment & Plan ACUTE ON CHRONIC RESPIRATORY FAILURE: with hypercarbia and hypoxia -multifactorial but mainly related to obesity hypoventilation syndrome and JOSE -Chronic Oxygen dependency: 2L at baseline -Ammunition Specialist was consulted, appreciate recommendations -patient had required intubation; was extubated on 03/02 -CXR: small left pleural effusion, left basilar densities, mild congestive change -Repeat CXR: Improving basilar infiltrates. Residual consolidative change left base. -continue nebs -Bipap qHS -wean Oxygen to 2L as able (baseline) METABOLIC ENCEPHALOPATHY: -likely secondary to acute respiratory acidosis and UTI -Encephalopathy resolved, back at baseline -CT: no acute intracranial findings -Blood cultures: No growth to date -Lactate: normal -Procalcitonin: 0.10 -was empirically on IV Invanz and completed 7 days of this. On Cefepime Day # 6/ 7 -Urine Culture: Enterococcus faecalis thus abx cefepime was added -Leukocytosis normalized, afebrile ELECTROLYTE DERANGEMENTS: -Hypokalemia/Hypomagnesemia/Hypophosphatemia: -resolved -monitor and replete as needed CHRONIC DIASTOLIC HEART FAILURE: -CXR: pulmonary vascular congestion and small left pleural effusion -continue Metoprolol -acetazolamide discontinued -Lasix PRN DM TYPE II: -HbA1C: 7.7% -continue correction scale insulin, Basal Insulin -monitor BSG -diabetic diet HYPOTHYROIDISM: -TSH and Free T4: normal -continue Levothyroxine MORBID OBESITY: -BMI: 52.5 -patient aware of need to lose weight Current Inpatient Medications: Current Inpatient Medications Medications (Trade) Dose Ordered Sig/Keith Route Start Time Stop Time Status Last Admin Dose Admin Fentanyl Citrate (Fentanyl Inj) 50 mcg Q1H PRN IV 03/01/17 06:15 03/15/17 06:14 03/02/17 12:07 50 MCG Albuterol (Ventolin Hfa Inhaler) 2 puffs QID PRN INH 03/01/17 07:00 03/31/17 06:59 Fluticasone Propionate (Flonase Nasal [place]) 2 sprays DAILY ANTON 03/01/17 09:00 03/31/17 08:59 03/08/17 09:18 2 SPRAYS Furosemide (Lasix Tab) 40 mg DAILY PRN PO 03/01/17 07:00 03/31/17 06:59 03/01/17 08:12 40 MG Miconazole Nitrate (Desenex Powder) 1 appln BID PRN EXT 03/01/17 07:00 03/31/17 06:59 03/02/17 21:10 1 APPLN Montelukast Sodium (Singulair Tab) 10 mg HS PO 03/01/17 21:00 03/31/17 20:59 03/07/17 21:48 10 MG Nystatin (Mycostatin Crm) 1 appln BID EXT 03/01/17 09:00 03/31/17 08:59 03/08/17 09:18 1 APPLN Ondansetron HCl (Zofran Tab) 4 mg Q6H PRN PO 03/01/17 07:00 03/31/17 06:59 03/07/17 18:11 4 MG Tiotropium [place] (Spiriva Handihaler Inhaler) 1 puff QAM INH 03/01/17 09:00 03/31/17 08:59 03/08/17 11:24 1 PUFF Ursodiol (Actigall Cap) 600 mg BID PO 03/01/17 09:00 03/31/17 08:59 03/08/17 09:19 600 MG Miscellaneous Information (Consult Glycemic Management Pharmacy) 1 ea UD PRN N/A 03/01/17 08:15 03/31/17 08:14 Aspirin (Aspirin Chew) 81 mg DAILY PO 03/01/17 09:00 03/31/17 08:59 03/08/17 11:26 81 MG Acetaminophen (Tylenol Soln) 650 mg Q6H PRN PO 03/01/17 19:45 03/31/17 19:44 Enoxaparin Sodium (Lovenox Inj) 40 mg BID SQ 03/02/17 21:00 04/01/17 20:59 03/08/17 09:20 40 MG Metoprolol Tartrate (Lopressor Tab) 12.5 mg BID PO 03/03/17 09:00 04/02/17 08:59 03/08/17 09:22 12.5 MG Cefepime HCl 2000 mg/Syringe 20 ml @ 5 mls/min Q8H IV 03/03/17 12:00 03/10/17 11:59 03/08/17 11:27 5 MLS/MIN Pregabalin (Lyrica Cap) 200 mg TID PO 03/04/17 09:00 04/03/17 08:59 03/08/17 14:08 200 MG Pantoprazole Sodium (Protonix Tab) 40 mg QAM PO 03/04/17 10:00 04/03/17 09:59 03/08/17 09:19 40 MG Levothyroxine Sodium (Synthroid Tab) 100 mcg DAILYBB PO 03/04/17 10:00 04/03/17 09:59 03/08/17 05:32 100 MCG Insulin Aspart (novoLOG ASPART) SLIDING SCALE TID@1100,1600,2100 SC 03/04/17 16:00 04/03/17 15:59 03/08/17 12:55 27 UNITS Insulin Aspart (novoLOG ASPART) SLIDING SCALE QDB SC 03/05/17 07:15 04/04/17 07:14 03/08/17 09:16 25 UNITS Insulin Human NPH (novoLIN-N NPH) 50 units TIDM SC 03/06/17 17:45 04/05/17 17:44 03/08/17 12:53 50 UNITS Albuterol/ Ipratropium (Duoneb) 3 ml QIDR PRN INH 03/07/17 12:00 04/01/17 11:59 Loratadine (Claritin Tab) 10 mg DAILY PRN PO 03/07/17 17:00 04/06/17 16:59 03/07/17 18:11 10 MG Lactobacillus Acidophilus (Floranex Tab) 4 tab TIDM PO 03/08/17 17:45 04/07/17 17:44
[2017-03-08 14:57] VITALS: BP 160/73; PULSE 77; TEMP 36.8; O2SAT 94
[2017-03-08] MEDS: LACTOBACILLUS ACIDOPHILUS (FLORANEX) TAB PO SCH (17:53)
[2017-03-08] MEDS: MONTELUKAST SOD 10 MG TAB PO SCH (21:16)
[2017-03-08 22:27] VITALS: PULSE 81; O2SAT 95
[2017-03-08 23:00] VITALS: BP 127/63; PULSE 77; TEMP 37.1; O2SAT 95
[2017-03-09] MEDS: CEFEPIME IV 2,000 MG in SYRINGE 7.5 ML IV SCH ×2 (05:00→11:44)
[2017-03-09] MEDS: ONDANSETRON 4 MG TAB PO PRN (05:00)
[2017-03-09] MEDS: LEVOTHYROXINE 100 MCG TAB PO SCH (05:57)
[2017-03-09 07:41] VITALS: BP 134/70; PULSE 72; TEMP 36.9; O2SAT 95
[2017-03-09 07:42] VITALS: PULSE 72; O2SAT 94
[2017-03-09] MEDS: INSULIN ASPART 100 UNITS/ML 3 ML PEN SC SCH ×2 (08:51→12:24)
[2017-03-09] MEDS: INSULIN HUMAN NPH SC SCH ×2 (08:51→12:25)
[2017-03-09] MEDS: NYSTATIN CR 15 GM TUBE EXT SCH (08:53)
[2017-03-09] MEDS: LACTOBACILLUS ACIDOPHILUS (FLORANEX) TAB PO SCH ×2 (08:53→12:25)
[2017-03-09] MEDS: URSODIOL 300 MG CAP PO SCH (08:54)
[2017-03-09] MEDS: PANTOprazole SOD 40 MG TAB PO SCH (08:54)
[2017-03-09] MEDS: FLUTICASONE PROPIONATE NA SPR 16 GM BTL NAE SCH (08:54)
[2017-03-09] MEDS: TIOTROPIUM BROMIDE 5 PUFF/90 MCG INH INH SCH (08:55)
[2017-03-09] MEDS: METOPROLOL TARTRATE 25 MG TAB PO SCH (08:56)
[2017-03-09] MEDS: ASPIRIN 81 MG CHEW PO SCH (08:59)
[2017-03-09] MEDS: PREGABALIN 100 MG CAP PO SCH (08:59)
[2017-03-09] MEDS: ENOXAPARIN 40 MG/0.4 ML SYR SQ SCH (09:00)
[2017-03-09] MEDS ORDERED: LCTX PO (12:14)
--- NOTE | 2017-03-09 12:16 | Discharge Instructions ---
Discharge Instructions Date of Service Mar 09, 2017. Admission Reason for Admission: Acute Respt. Failure W/ Hypoxia/Hypercarbia, Ams Discharge Discharge Diagnosis / Problem: Respiratory failure, AMS, UTI Discharge Goals Goal(s): Diagnostic testing, Therapeutic intervention Activity Recommendations Activity Limitations: resume your previous activity . Instructions / Follow-Up Instructions / Follow-Up Please see Dr. Owens on March 15, at 12:25 PM for hospital follow up. Please continue to use the Bipap every night with the oxygen. Settings should remain the same as they are Current Hospital Diet Patient's current hospital diet: AHA Diet (Heart Healthy), Low Sodium Diet (2gm Na), Diabetes Type 2 Diet Discharge Diet Recommended Diet: AHA Diet (Heart Healthy), Low Sodium Diet (2gm Na), Diabetes Type 2 Diet Pending Studies Studies pending at discharge: no Laboratory Results Hemoglobin A1c Test 03/02/17 05:20 Range/Units Estimated Average Glucose 174 mg/dl Hemoglobin A1c 7.7 H 4.5-5.6 % Medical Emergencies . Who to Call and When: Medical Emergencies: If at any time you feel your situation is an emergency, please call 911 immediately. . Non-Emergent Contact Non-Emergency issues call your: Primary Care Provider . . "Provider Documentation" section prepared by Renetta Gonzalez. . VTE Core Measure Inpt VTE Proph given/why not?: Enoxaparin (Lovenox)SQ
[2017-03-09 12:33] VITALS: BP 134/70; PULSE 72; TEMP 36.9; O2SAT 94
--- NOTE | 2017-03-09 14:11 | Discharge Summary ---
Discharge Summary Date of Service Mar 09, 2017. Discharge Summary Admission Date: Mar 01, 2017 at 03:44 Discharge Date: Mar 09, 2017 Discharge Disposition: Home with services Medication Reconciliation New Medications: Lactobacillus Acidophilus (Floranex) 1 Tab Tab 4 TAB PO TIDM, #120 TAB Continued Medications: Albuterol Hfa (Ventolin Hfa) 200 Puffs/68780 Mcg Aers 2 PUFFS INH QID PRN for SOB/Wheezing INHALE 2 PUFFS 1 MINUTE APART 4 TIMES DAILY IF NEEDED Albuterol Sulf (Proventil 0.083% 2.5MG/3ML) 2.5 Mg/3 Ml Nebu 1 VIAL NEB Q6H PRN for SOB/Wheezing USE IN PLACE OF RESCUE INHALER Aspirin (Aspirin Ec) 81 Mg Tab 81 MG PO DAILY Baclofen (Lioresal) 10 Mg Tab 10 MG PO TID, TAB Celecoxib (CeleBREX) 200 Mg Cap 200 MG PO DAILY, CAP Duloxetine HCl (Duloxetine HCl) 30 Mg Cap 30 MG PO BID Fluticasone Propionate (Nasal) (Flonase Allergy Relief) 50 Mcg/Act Spr 2 SPRAYS ANTON DAILY Furosemide (Furosemide) 40 Mg Tab 40 MG PO DAILY PRN for edema Home O2 Therapy (Oxygen) Gas 3 LITERS NA DAYTIME USES BIPAP WITH 4 L/MIN HS Insulin Isophane (Human) (Novolin N Relion) 100 Unit/Ml Inj 73 UNITS SQ AC Insulin Regular (Human) (Novolin R U-100) 100 Unit/Ml Inj 33 UNITS SQ AC Lactulose (Chronulac) 10 Gm/15 Ml Syrp 15 ML PO DAILY PRN for Severe Constipation Levothyroxine Sodium (Levothyroxine Sodium) 100 Mcg Tab 100 MCG PO QAM Metformin HCl (Metformin HCl ER) 500 Mg Tabcr 1000 MG PO DAILY Metoprolol Succ (Toprol Xl) (Toprol-Xl) 25 Mg Tabcr 25 MG PO DAILY, #30 TAB Miconazole Nitrate (Desenex Shake Powder) 43 Appln/43 Gm Powd 1 APPLN TOP BID PRN for Affected Skin Folds Montelukast Sod (Montelukast Sodium) 10 Mg Tab 10 MG PO HS Nystatin (Nystatin Cream) 90 Appln/30 Gm Cr 1 APPLN TOP BID for 14 Days APPLY TO AFFECTED AREA(S) DIRECTED Ondansetron Hcl (Zofran) 4 Mg Tab 4 MG PO Q6H PRN for Nausea, TAB Pantoprazole (Pantoprazole Sodium) 40 Mg Tab 40 MG PO QAM TAKE THIS MEDICATION ONCE A DAY 30 MINUTES BEFORE FIRST MEAL OF THE DAY. Polyethylene Glycol 3350 (Miralax) 1 Pow Pow 17 GM PO BID Pregabalin (Lyrica) 200 Mg Cap 200 MG PO TID, CAP Sumatriptan Succinate (Imitrex) 100 Mg Tab 100 MG PO UD PRN for Migraine TAKE ONE TABLET AT ONSET OF MIGRAINE, MAY REPEAT AFTER 2 HOURS IF NEEDED. TAKE NO MORE THAN 2 TABLETS IN 24 HOURS. Tiotropium Opal (Spiriva Handihaler) 30 Puff/540 Mcg Aerp 1 PUFF INH QAM Trazodone Hcl (Trazodone) 50 Mg Tab 100 MG PO HS PRN for Sleep take 1 hour before bed Triamcinolone Acet (Triamcinolone Acetonide) 45 Appln/15 Gm Cr 1 APPLN TOP BID PRN for Redness and Itching for 30 Days, GM Ursodiol (Ursodiol) 300 Mg Cap 600 MG PO BID TAKE THIS MEDICATION AFTER BREAKFAST AND AFTER EVENING MEAL. Discontinued Medications: Probiotic Product (Probiotic) 1 Cap Cap 1 CAP PO HS Admission Information HPI (per Admitting provider): This is a 66 year old F with history of respiratory failure and hypercarbia with last presentation in November 2016 when ABG was 7.21 and patient managed with BIPAP, Obesity Hypoventilation Syndrome, Asthma, DM 2, HTN, Morbid Obesity , Chronic Pain, Depression. As per patient's Uri [phone] on the phone, patient has never had to be intubated before. He reports that patient was lethargic around 6 PM on 02/28/17. Patient apparently was brought in by her . Patient was evaluated in the ED. ABG was drawn and BIPAP was started. The ABG is concerning for ABG pH 7.13 and pCO2 115. Patient evaluated by hospitalist medicine physician. Patient is somnolent, awake to sternal rub, responds verbally and then goes back to sleep while the BIPAP is on. Have explained to patient that if her breathing does not improve, she may need to be intubated. Patient cannot respond these explanations Hospitalist have requested that patient to be transferred to Intensive Care Unit for further monitoring and have discussed code status and possible need for intubation if the breathing does not improve on BIPAP. The patient's expresses his understanding on the phone. Physical Exam (per Admitting): General Appearance: + obese, + pertinent finding (somnolent) Head: normocephalic, atraumatic Eyes: normal inspection, PERRL, sclerae normal ENT: normal ENT inspection, pharynx normal Neck: supple, no JVD, trachea midline Respiratory/Chest: + pertinent finding (on BIPAP) Cardiovascular: regular rate, rhythm, normal peripheral pulses, + pertinent finding (large legs with some bilateral lower extremity edema) Abdomen/GI: normal bowel sounds, soft, no organomegaly, no pulsatile mass Extremities/Musculoskelatal: + pertinent finding (large legs with some bilateral lower extremity edema) Neurologic/Psych: + pertinent finding (somnolent) Skin: normal color, warm/dry, no rash Hospital Course ACUTE ON CHRONIC RESPIRATORY FAILURE: with hypercarbia and hypoxia -multifactorial but mainly related to obesity hypoventilation syndrome and JOSE -Chronic Oxygen dependency: 2L at baseline -Manager Client Service was consulted, appreciate recommendations -patient had required intubation; was extubated on 03/02 -CXR: small left pleural effusion, left basilar densities, mild congestive change -Repeat CXR: Improving basilar infiltrates. Residual consolidative change left base. -continue nebs -Bipap qHS -wean Oxygen to 2L as able (baseline) METABOLIC ENCEPHALOPATHY: -likely secondary to acute respiratory acidosis and UTI -Encephalopathy resolved, back at baseline -CT: no acute intracranial findings -Blood cultures: No growth to date -Lactate: normal -Procalcitonin: 0.10 -was empirically on IV Invanz and completed 7 days of this. On Cefepime Day # 6/ 7 -Urine Culture: Enterococcus faecalis thus abx cefepime was added -Leukocytosis normalized, afebrile ELECTROLYTE DERANGEMENTS: -Hypokalemia/Hypomagnesemia/Hypophosphatemia: -resolved -monitor and replete as needed CHRONIC DIASTOLIC HEART FAILURE: -CXR: pulmonary vascular congestion and small left pleural effusion -continue Metoprolol -acetazolamide discontinued -Lasix PRN DM TYPE II: -HbA1C: 7.7% -continue correction scale insulin, Basal Insulin -monitor BSG -diabetic diet HYPOTHYROIDISM: -TSH and Free T4: normal -continue Levothyroxine MORBID OBESITY: -BMI: 52.5 -patient aware of need to lose weight Total time spent on discharge = This includes examination of the patient, discharge planning, medication reconciliation, and communication with other providers.
== END 2017-03-09 12:50 | disposition home health service (06) | DRG 208 ==
LOC: EDBD 23:26 → C.EDB 23:28 → C.MSICU 03-01 03:44 → EDBEDREQ 03-01 03:50 → ENRESERV 03-01 04:06 → C.MSW 03-06 10:28
PROVIDERS: ADMIT Hospitalist; ATTEND Internal Medicine
PROC: 5A1945Z Respiratory Ventilation, 24-96 Consecutive Hours (ICD-10-PCS; principal; 2017-03-01)
PROC: 0BH18EZ Insertion of Endotracheal Airway into Trachea, Via Natural or Artificial Opening Endoscopic (ICD-10-PCS; 2017-03-01)
DX: J96.22 Acute and chronic respiratory failure with hypercapnia (principal); G93.41 Metabolic encephalopathy; J69.0 Pneumonitis due to inhalation of food and vomit; E66.2 Morbid (severe) obesity with alveolar hypoventilation; Z68.43 Body mass index [BMI] 50.0-59.9, adult; E87.2 Acidosis; I50.32 Chronic diastolic (congestive) heart failure; N39.0 Urinary tract infection, site not specified; B95.2 Enterococcus as the cause of diseases classified elsewhere; J96.01 Acute respiratory failure with hypoxia; Z78.1 Physical restraint status; E87.6 Hypokalemia; E83.42 Hypomagnesemia; E83.39 Other disorders of phosphorus metabolism; E11.40 Type 2 diabetes mellitus with diabetic neuropathy, unspecified; E11.43 Type 2 diabetes mellitus with diabetic autonomic (poly)neuropathy; I11.0 Hypertensive heart disease with heart failure; E78.5 Hyperlipidemia, unspecified; E03.9 Hypothyroidism, unspecified; J45.909 Unspecified asthma, uncomplicated; F32.9 Major depressive disorder, single episode, unspecified; G89.29 Other chronic pain; Z51.81 Encounter for therapeutic drug level monitoring; Z79.899 Other long term (current) drug therapy; Z79.4 Long term (current) use of insulin; Z79.82 Long term (current) use of aspirin; Z99.81 Dependence on supplemental oxygen; Z66 Do not resuscitate; Z87.440 Personal history of urinary (tract) infections; Z87.01 Personal history of pneumonia (recurrent); Z86.73 Personal history of transient ischemic attack (TIA), and cerebral infarction without residual deficits; Z91.81 History of falling; Z74.01 Bed confinement status; Z82.49 Family history of ischemic heart disease and other diseases of the circulatory system; Z83.3 Family history of diabetes mellitus; Z82.5 Family history of asthma and other chronic lower respiratory diseases; Z81.8 Family history of other mental and behavioral disorders

== ENCOUNTER 2017-04-27 16:48 | Inpatient (IN) | payer OTHER ==
[~2017-04-27] VITALS: Ht 172.7 cm; Wt 158.9 kg
[~2017-04-27 16:48] MED LIST changes: +BACL10TA PO; -CELE1CAP30 PO; +CLB/200 PO; +FLUT0.15 NAE; +INSU0.01 SQ; +INSUINJ7 SQ; +LCTX PO; +METO25TA3 PO; -MISCCAP80 PO; -NVLNI SC; -SILV1CRE73 TOP; -SIMV-151 PO; -TNR25X PO; +TRAZ50TA35 PO
--- NOTE | 2017-04-27 17:42 | DIAGNOSTIC IMAGING REPORT ---
CHEST ONE VIEW PORTABLE CLINICAL HISTORY: Chest pain. COMPARISON STUDY: Chest radiograph March 04, 2017. FINDINGS: There is no pneumothorax or pleural effusion. There is no evidence for pulmonary edema. Cardiomediastinal silhouette is stable. Elevation of the left hemidiaphragm is noted. There are persistent bibasilar opacities, left greater than right. Similar findings were shown on multiple previous exams. IMPRESSION: Persistent bibasilar opacities, left greater than right. Similar findings were noted on multiple previous exams. The findings may reflect atelectasis or pneumonia. Electronically signed by: Chidi Gregory M.D. 04/27/2017 5:40 PM Dictated Date/Time: 04/27/2017 5:39 PM
[2017-04-27 18:44] LABS: ALBUMIN 2.8 gm/dl (3.4-5.0); CALCIUM 8.7 mg/dl (8.5-10.1); CREATININE 0.9 mg/dl (0.60-1.20); POTASSIUM 4.5 mmol/L (3.5-5.1)
[2017-04-27] MEDS ORDERED: CIPROFLOXACIN 400MG / 200ML D5W IV ONE (18:45)
[2017-04-27 20:17] LABS: BASO % 0.3 %; BASO ABS # 0.04 K/uL (0-0.2); EOS % 2.4 %; HEMATOCRIT 36.7 % (37-47); HEMOGLOBIN 10.9 g/dL (12.0-16.0); IG# 0.54 K/uL (0.00-0.02); LYMPH % 12.3 %; LYMPH ABS # 1.52 K/uL (1.2-3.4); MEAN CELL VOLUME 81.2 fL (80-100); MEAN CORPUSCULAR HEMOGLOBIN 24.1 pg (25-34); MEAN CORPUSCULAR HGB CONC 29.7 g/dl (32-36); MEAN PLATELET VOLUME 10.9 fL (7.4-10.4); MONO ABS # 0.99 K/uL (0.11-0.59); NEUT % 72.6 %; PLATELET COUNT 160 K/uL (130-400); RED CELL DISTRIBUTION WIDTH CV 18.3 % (11.5-14.5); WHITE BLOOD COUNT 12.39 K/uL (4.8-10.8)
--- NOTE | 2017-04-27 20:18 | EMERGENCY ROOM VISIT NOTE ---
History Report prepared by Michelle: Brianna Franklin Under the Supervision of: Dr. Kendrick Ware M.D. First contact with patient: 17:00 Chief Complaint: URINARY SYMPTOMS Stated Complaint: URINARY SX Nursing Triage Summary: Pt arrives S for evalution of increased lethargy, poor appetite, not taking fluids. Being treated for UTI with Zyvox since 04/19/17. Pt reports burning on urination, increased frequency; denies pain. Pt transferred to bed from [facility] with jorge lift. PMH: DM 2/insulin History of Present Illness The patient is a 66 year old female who presents to the Emergency Room with complaints of persistent urinary symptoms starting 1 week ago. The patient presents to the ED by EMS. She has been on Zyvox for a UTI for the past week. She has a history of frequent UTIs. Her reports that the patient has been more lethargic recently. She is not taking fluids or eating a lot. Her urine has been dark and she is urinating frequently. She reports cough, chest discomfort, and leg pain all with lying flat. She has lower back pain which is worse on the left. She denies any fever, nausea, vomiting, or abdominal pain. She states that she is eating well. Her bowel movements have been normal. She denies any recent falls. She has a history of diabetes. She reports her sugars are always high. She has a history of MRSA. She is on 2L of oxygen at all times. Source of History: patient, nursing staff Onset: 1 week ago Position: other (urinary) Quality: other (frequency, dark) Timing: other (persistent) Associated Symptoms: + back pain, No fevers, No nausea, No vomiting, No abdominal pain Note: Pt has been lethargic. Review of Systems See HPI for pertinent positives & negatives. A total of 10 systems reviewed and were otherwise negative. Past Medical & Surgical Medical Problems: (1) Acute Pancreatitis (2) Anxiety (3) Asthma (4) Body Mass Index 50.0-59.9, Adult (5) Cerebrovascular disease (6) Chronic hypercapnic respiratory failure (7) Chronic osteoarthritis (8) Chronic pain disorder (9) Crohn's disease (10) Depression (11) Diabetes mellitus, type II (12) Diabetic neuropathy (13) Diastolic heart failure (14) Dyslipidemia (15) Gastroparesis (16) Hypertension (17) Hypertrophic cardiomyopathy (18) Hypothyroidism (19) Necrotizing Fasciitis (20) Obesity hypoventilation syndrome (21) Recurrent UTI (22) Respiratory failure, acute (23) Sleep apnea Surgical Problems: (1) Status post partial nephrectomy (2) Status post repair nasal septum (3) Status post tonsillectomy Old medical records were reviewed. Nurse's notes were reviewed and I agree with. Family History FH: asthma SISTER FH: dementia MOTHER FH: diabetes mellitus MOTHER GRANDMOTHER FH: heart disease FATHER GRANDMOTHER FH: hypertension MOTHER Social History Smoking Status: Never Smoker Alcohol Use: none Drug Use: none Marital Status: Housing Status: lives with family Occupation Status: disabled Current/Historical Medications Scheduled Aspirin (Aspirin Ec), 81 MG PO DAILY Baclofen (Lioresal), 10 MG PO TID Celecoxib (CeleBREX), 200 MG PO DAILY Duloxetine HCl (Duloxetine HCl), 30 MG PO BID Fluticasone Propionate (Nasal) (Flonase Allergy Relief), 2 SPRAYS ANTON DAILY Home O2 Therapy (Oxygen), 2 LITERS NA DAYTIME Insulin Isophane (Human) (Novolin N Relion), 76 UNITS SQ BIDM Insulin Regular (Human) (Novolin R U-100), 36 UNITS SQ BIDM Lactobacillus Acidophilus (Floranex), 1 TAB PO TIDM Levothyroxine Sodium (Levothyroxine Sodium), 100 MCG PO QAM Linezolid (Zyvox), 600 MG PO BID Metformin HCl (Metformin HCl ER), 1,000 MG PO DAILY Metoprolol Succ (Toprol Xl) (Toprol-Xl), 25 MG PO DAILY Montelukast Sod (Montelukast Sodium), 10 MG PO HS Nystatin (Nystatin Cream), 1 APPLN TOP BID Pantoprazole (Pantoprazole Sodium), 40 MG PO QAM Polyethylene Glycol 3350 (Miralax), 17 GM PO DAILY Pregabalin (Lyrica), 200 MG PO TID Simvastatin (Zocor), 1 TAB PO HS Tiotropium [place] (Spiriva Handihaler), 1 PUFF INH QAM Ursodiol (Ursodiol), 600 MG PO BID Scheduled PRN Albuterol Hfa (Ventolin Hfa), 2 PUFFS INH QID PRN for SOB/Wheezing Albuterol Sulf (Proventil 0.083% 2.5MG/3ML), 1 VIAL NEB Q6H PRN for SOB/Wheezing Furosemide (Furosemide), 40 MG PO DAILY PRN for edema Lactulose (Chronulac), 15 ML PO DAILY PRN for Severe Constipation Miconazole Nitrate (Desenex Shake Powder), 1 APPLN TOP BID PRN for Affected Skin Folds Ondansetron Hcl (Zofran), 4 MG PO Q6H PRN for Nausea Sumatriptan Succinate (Imitrex), 100 MG PO UD PRN for Migraine Triamcinolone Acet (Triamcinolone Acetonide), 1 APPLN TOP BID PRN for Redness and Itching Allergies Coded Allergies: Fluoxetine (Verified Allergy, Severe, ANAPHYLAXIS, 04/27/17) Insulin (Verified Allergy, Severe, LANTUS/LEVEMIR- HIVES/THROAT SWELLING, 04/27/17) TOLERATES NOVOLIN N 11/19/15 aj (per pt phone call) Note: after patient had severe hives reaction from Lantus (many years ago), she had skin testing @ [facility] and was tested with many other insulins. Pt says she only tolerated NOVOLIN NPH. PT HAS TOLERATED NOVOLOG ON PREVIOUS ADMISSIONS. Has tolerated Aspart during multiple admissions (12/2013, 05/2015, 07/2015) Moxifloxacin (Verified Allergy, Severe, HIVES, 04/27/17) Nitrofurantoin (Verified Allergy, Severe, HIVES, 04/27/17) Paroxetine (Verified Allergy, Severe, HIVES, 04/27/17) Quinolones (Verified Allergy, Severe, AVELOX & LEVAQUIN-HIVES, 04/27/17) Tolerated Cipro 05/2015 admission; in fact Cipro allergy removed at that time. Amitriptyline (Verified Allergy, Intermediate, Sweats and itching, 04/27/17 ) Buspirone (Verified Allergy, Intermediate, HIVES, 04/27/17) Citalopram (Verified Allergy, Intermediate, HIVES-RASH, 04/27/17) Escitalopram (Verified Allergy, Intermediate, HIVES-RASH, 04/27/17) Methadone (Verified Allergy, Intermediate, HIVES, 04/27/17) Penicillins (Verified Allergy, Intermediate, RASH,HIVES, 04/27/17) Serotonin Reuptake Inhibitors (Verified Allergy, Intermediate, MIGRAINES TO SSRIs, 04/27/17) Trazodone (Verified Allergy, Intermediate, BLOODY NOSE, HEADACHES,HIVES, ) Vancomycin (Verified Allergy, Intermediate, HIVES, 04/27/17) Prednisone (Verified Allergy, Mild, CHEST TIGHTNESS, 04/27/17) Azithromycin (Verified Allergy, Unknown, HIVES, 04/27/17) Carbamazepine (Verified Allergy, Unknown, [id number], 04/27/17) Cefepime (Verified Allergy, Unknown, face & arm redness/itching after 2nd or 3rd dose cefepime, 04/27/17) has tolerated Cefepime 03/03/17 thru 03/09/17 (this allergy added 03/06/16) Ceftriaxone (Verified Allergy, Unknown, Received in [facility] (but needed benadryl for course of therapy, 04/27/17) this was during 01/2016 [facility] admission for Rocephin; tolerated Rocephin 06/21/16 thru 06/24/16 (this allergy was added 03/06/16) Ciprofloxacin (Unverified Allergy, Unknown, ABD PAINS, 04/27/17) Cipro allergy added to profile sometime before 03/29/2002; pt has tolerated Cipro since then (see 05/25/15 thru 05/27/15); Cipro allergy was removed 05/26/15 but has been entered again 02/01/16 Sertraline (Verified Allergy, Unknown, UNKNOWN, 04/27/17) Sitagliptin (Verified Allergy, Unknown, HIVES, 04/27/17) Tetracyclines (Verified Adverse Reaction, Severe, HIVES, 04/27/17) Sulfa Antibiotics (Verified Adverse Reaction, Intermediate, MIGRAINES, ) Fexofenadine (Verified Adverse Reaction, Mild, GI SYMPTOMS, 04/27/17) Tizanidine (Verified Adverse Reaction, Mild, ITCHING-HIVES, 04/27/17) Physical Exam Vital Signs Date Time Temp Pulse Resp B/P (MAP) Pulse Ox O2 Delivery O2 Flow Rate FiO2 04/27/17 22:12 79 23 169/74 90 Nasal Cannula 4.0 04/27/17 21:34 91 22 167/70 04/27/17 21:01 91 04/27/17 19:31 37.2 92 23 162/77 92 Nasal Cannula 3.0 04/27/17 17:04 90 04/27/17 17:00 37.2 91 23 162/77 92 Nasal Cannula 3.0 Physical Exam General: Chronically-ill appearing older female in no acute distress, alert to person, place, and year, answers questions appropriately. HEENT: Normal cephalic atraumatic. Pupils are equal round and reactive to light. Extraocular movements are intact. Oropharynx is pink with moist mucous membranes. No swelling of the mouth lips or tongue. Neck: Supple with a midline trachea. No meningeal signs or stiffness, no JVD or bruits. No Stridor. Chest: Clear to auscultation bilaterally. No wheezes or rhonchi. No increased work of breathing. Heart: regular rate and rhythm. Abdomen: Soft nontender, nondistended without rebound guarding or rigidity. Extremities: No cyanosis clubbing or edema. No calf tenderness or assymetry Spine/Back. Non tender to palpation. No CVA tenderness Skin: Good turgor without rashes. Neurologic exam: Cranial nerves two through 12 are intact. Motor and sensation are intact and symmetrical throughout. Medical Decision & Procedures ER Provider Diagnostic Interpretation: X-ray results as stated below per interpretation by me and the radiologist: CHEST ONE VIEW PORTABLE CLINICAL HISTORY: Chest pain. COMPARISON STUDY: Chest radiograph March 04, 2017. FINDINGS: There is no pneumothorax or pleural effusion. There is no evidence for pulmonary edema. Cardiomediastinal silhouette is stable. Elevation of the left hemidiaphragm is noted. There are persistent bibasilar opacities, left greater than right. Similar findings were shown on multiple previous exams. IMPRESSION: Persistent bibasilar opacities, left greater than right. Similar findings were noted on multiple previous exams. The findings may reflect atelectasis or pneumonia. Electronically signed by: Chidi Gregory M.D. 04/27/2017 5:40 PM Dictated Date/Time: 04/27/2017 5:39 PM Laboratory Results Test 04/27/17 17:30 04/27/17 17:35 04/27/17 17:50 Urine Color YELLOW Urine Appearance CLEAR (CLEAR) Urine pH 5.0 (4.5-7.5) Urine Specific [place] 1.018 (1.000-1.030) Urine Protein 1+ (NEG) Urine Glucose (UA) NEG (NEG) Urine Ketones NEG (NEG) Urine Occult Blood 1+ (NEG) Urine Nitrite NEG (NEG) Urine Bilirubin NEG (NEG) Urine Urobilinogen NEG (NEG) Urine Leukocyte Esterase NEG (NEG) Urine WBC (Auto) 1-5 /hpf (0-5) Urine RBC (Auto) 0-4 /hpf (0-4) Urine Hyaline Casts (Auto) 5-10 /lpf (0-5) Urine Epithelial Cells (Auto) 20-30 /lpf (0-5) Urine Bacteria (Auto) NEG (NEG) Urine Pathogenic Casts 0-3 GRANULAR CASTS /lpf (0) Urine Yeast (Auto) BUDDING (NONE PRSENT) Prothrombin Time 10.1 SECONDS (9.0-12.0) Prothromb Time International Ratio 1.0 (0.9-1.1) Activated Partial Thromboplast Time 28.0 SECONDS (21.0-31.0) Partial Thromboplastin Ratio 1.1 Magnesium Level 2.1 mg/dl (1.8-2.4) Total Bilirubin 0.3 mg/dl (0.2-1) Direct Bilirubin 0.1 mg/dl (0-0.2) Aspartate Amino Transf (AST/SGOT) 15 U/L (15-37) Alanine Aminotransferase (ALT/SGPT) 22 U/L (12-78) Alkaline Phosphatase 79 U/L (45-117) Total Protein 7.0 gm/dl (6.4-8.2) Albumin 2.8 gm/dl (3.4-5.0) Lipase 80 U/L (73-393) Procalcitonin 0.11 ng/ml (0-0.5) Bedside Lactic Acid Venous 0.72 mmol/L (0.90-1.70) Date/Time Source Procedure Growth Status 04/27/17 17:30 Urine,Catheterized Urine Culture - Final NO GROWTH - LESS THAN 1,000 COLONIES/ML Complete Laboratory studies as stated above per my review. Medications Administered Medications (Trade) Dose Ordered Sig/Keith Route Start Time Stop Time Status Last Admin Dose Admin Ciprofloxacin/ Dextrose (Cipro / D5W) 400 mg NOW ONCE IV 04/27/17 18:45 04/27/17 18:46 DC 04/27/17 19:57 400 MG ECG Per My Interpretation Indication: weakness Rate (beats per minute): 93 Rhythm: normal sinus (93) Findings: no acute ischemic change, other (poor baseline, low voltage) Comparison ECG Date: 02-Mar-2017 Change: PAC now absent. ED Course 170: Past medical records reviewed. The patient was evaluated in room C3, and a complete history and physical examination were performed. 1840: I reevaluated the patient. I discussed the patient's care with her . 1844: Ciprofloxacin/Dextrose 400 mg IV. 1947: Upon reevaluation, the patient is stable. I discussed the results and treatment plan with the patient and her . They verbalized agreement of the treatment plan. The patient will be evaluated for further management. 2002: [facility] The patient will be evaluated for further management. Medical Decision Differentials include, but are not limited to; sepsis, UTI, electrolyte or metabolic abnormality. This patient comes in as described above. She has a very complex medical history and gets frequent urinary tract infections. Apparently she was just on antibiotic. She has multiple antibiotic sensitivities and allergies. Her says she does get frequent UTIs and he is concerned she could have another one as she is acting sleepy and weak the way she typically does with UTI. IV access established and multiple blood testing was obtained including blood cultures. She has nothing to suggest any definite pneumonia. She has no significant electrolyte or metabolic abnormalities. Her urine actually does not look likely infected however, her cultures pending. I did talk to the at length and he says that this is typical for her. I had Kendrick, our ED pharmacist review her meds and he recommended Cipro IV. Cirpro is listed as an allergy however she has had it several times since it was listed without any apparent problems. She did tolerate this well. I have discussed case Dr. Ruperto Larson as I do believe she needs to be admitted/observe for further treatment and evaluation due to her weakness and possible infection. Medication Reconcilliation Current Medication List: was personally reviewed by me Blood Pressure Screening Patient's blood pressure: Elevated blood pressure Blood pressure disposition: Referred to PCP Consults Time Called: 1957 [facility]ing [facility] Returned Call: 2002 Discussed the patient's case. The patient will be evaluated for further management. Impression Primary Impression: Weakness Additional Impression: UTI (urinary tract infection) Scribe Attestation The scribe's documentation has been prepared under my direction and personally reviewed by me in its entirety. I confirm that the note above accurately reflects all work, treatment, procedures, and medical decision making performed by me. Departure Information Dispostion Being Evaluated By Hospitalist Prescriptions Lactobacillus Acidophilus (Floranex) 1 Tab Tab 1 TAB PO TIDM, #120 TAB Prov: Dasia Polo ., NANO 04/27/17 Referrals Bairon Owens M.D. (PCP) Patient Instructions My [facility] Problem Qualifiers
[2017-04-27] MEDS ORDERED: SIMV20TA5 PO (20:58)
[2017-04-27] MEDS ORDERED: LCTX PO (20:58)
[2017-04-27] MEDS ORDERED: LINE1TAB6 PO (21:01)
--- NOTE | 2017-04-27 22:06 | DIAGNOSTIC IMAGING REPORT ---
CT SCAN OF THE BRAIN WITHOUT IV CONTRAST CLINICAL HISTORY: Change in mental status. COMPARISON STUDY: CT of the brain dated 03/01/2017. TECHNIQUE: Unenhanced axial CT scan of the brain is performed from the vertex to the skull base. A dose lowering technique was utilized adhering to the principles of ALARA. The examination is modestly degraded by motion artifact. CT DOSE: 884.08 mGy.cm FINDINGS: Brain parenchyma: There are age-related involutional changes noting mild subcortical and periventricular microangiopathic change. There is no hemorrhage, mass effect, or evidence of acute territorial ischemia by CT criteria. Ramires-white matter is preserved. No extra-axial fluid collection is seen. Ventricles, sulci, cisterns: Prominent secondary to involutional change. Intracranial vasculature: There is atherosclerotic calcification of the cavernous carotid and vertebral arteries. Calvarium: Unremarkable. Sinuses and mastoids: The visualized paranasal sinuses are clear. There is a right mastoid effusion. The left mastoid air cells are well pneumatized. Orbits: The bony orbits are grossly intact. IMPRESSION: There is no hemorrhage, mass effect, or evidence of acute territorial ischemia by CT criteria. Electronically signed by: Luis Meraz M.D. 04/27/2017 10:04 PM Dictated Date/Time: 04/27/2017 10:03 PM
--- NOTE | 2017-04-27 22:36 | History and Physical ---
History & Physical Date & Time of Service: Apr 27, 2017 ~ 20:00 Chief Complaint: Altered Mental Status Primary Care Physician: Bairon Owens M.D. History of Present Illness 66-year-old female who presents to the ER with altered mental status. Patient is very well-known to our service, most recently admitted to [facility] 03/01-03/09 for acute on chronic hypercapnic respiratory failure failure and urinary tract infection. Patient did require intubation during that admission. History is obtained from patient's is the bedside. He reports the last week patient developed UTI-like symptoms. Urine culture was obtained which grew enterococcus. Patient follows with Dr. Corey from infectious disease who placed the patient on Zyvox on 04/21. Has been reports patient was initially improving over the past few days she has been increasingly lethargic and confused. He reports she has been unable to feed herself. She has been incontinent of a foul -smelling urine. No other symptoms have been reported. In the ED, patient's WBC 12 K, other labs are unremarkable. Patient was given a dose of IV Cipro. Past Medical/Surgical History Medical Problems: (1) Acute Pancreatitis Status: Resolved (2) Anxiety Status: Chronic (3) Asthma Status: Chronic (4) Body Mass Index 50.0-59.9, Adult Status: Chronic (5) Cerebrovascular disease Permanent Comment: history left thalamic stroke Status: Chronic (6) Chronic hypercapnic respiratory failure Status: Chronic (7) Chronic osteoarthritis Status: Chronic (8) Chronic pain disorder Status: Chronic (9) Crohn's disease Status: Chronic (10) Depression Status: Chronic (11) Diabetes mellitus, type II Status: Chronic (12) Diabetic neuropathy Status: Chronic (13) Diastolic heart failure Status: Chronic (14) Dyslipidemia Status: Chronic (15) Gastroparesis Status: Chronic (16) Hypertension Status: Chronic (17) Hypertrophic cardiomyopathy Status: Chronic (18) Hypothyroidism Status: Chronic (19) Necrotizing Fasciitis Status: Resolved (20) Obesity hypoventilation syndrome Status: Chronic (21) Recurrent UTI Status: Chronic (22) Sleep apnea Status: Chronic Surgical Problems: (1) Status post partial nephrectomy Permanent Comment: left partial nephrectomy, pathology benign Status: Chronic (2) Status post repair nasal septum Status: Chronic (3) Status post tonsillectomy Status: Chronic Family History FH: asthma SISTER FH: dementia MOTHER FH: diabetes mellitus MOTHER GRANDMOTHER FH: heart disease FATHER GRANDMOTHER FH: hypertension MOTHER Social History Smoking Status: Never Smoker Alcohol Use: none Marital Status: Housing status: lives with significant other Immunizations History of Influenza Vaccine: Yes Influenza Vaccine Date: Nov 24, 2016 History of Tetanus Vaccine?: Yes Tetanus Immunization Date: Oct 23, 2009 History of Pneumococcal: Yes Pneumococcal Date: Nov 05, 2015 History of Hepatitis B Vaccine: Unknown Allergies Coded Allergies: Fluoxetine (Verified Allergy, Severe, ANAPHYLAXIS, 04/27/17) Insulin (Verified Allergy, Severe, LANTUS/LEVEMIR- HIVES/THROAT SWELLING, 04/27/17) TOLERATES NOVOLIN N 11/19/15 aj (per pt phone call) Note: after patient had severe hives reaction from Lantus (many years ago), she had skin testing @ [place] and was tested with many other insulins. Pt says she only tolerated NOVOLIN NPH. PT HAS TOLERATED NOVOLOG ON PREVIOUS ADMISSIONS. Has tolerated Aspart during multiple admissions (12/2013, 05/2015, 07/2015) Moxifloxacin (Verified Allergy, Severe, HIVES, 04/27/17) Nitrofurantoin (Verified Allergy, Severe, HIVES, 04/27/17) Paroxetine (Verified Allergy, Severe, HIVES, 04/27/17) Quinolones (Verified Allergy, Severe, AVELOX & LEVAQUIN-HIVES, 04/27/17) Tolerated Cipro 05/2015 admission; in fact Cipro allergy removed at that time. Amitriptyline (Verified Allergy, Intermediate, Sweats and itching, 04/27/17 ) Buspirone (Verified Allergy, Intermediate, HIVES, 04/27/17) Citalopram (Verified Allergy, Intermediate, HIVES-RASH, 04/27/17) Escitalopram (Verified Allergy, Intermediate, HIVES-RASH, 04/27/17) Methadone (Verified Allergy, Intermediate, HIVES, 04/27/17) Penicillins (Verified Allergy, Intermediate, RASH,HIVES, 04/27/17) Serotonin Reuptake Inhibitors (Verified Allergy, Intermediate, MIGRAINES TO SSRIs, 04/27/17) Trazodone (Verified Allergy, Intermediate, BLOODY NOSE, HEADACHES,HIVES, ) Vancomycin (Verified Allergy, Intermediate, HIVES, 04/27/17) Prednisone (Verified Allergy, Mild, CHEST TIGHTNESS, 04/27/17) Azithromycin (Verified Allergy, Unknown, HIVES, 04/27/17) Carbamazepine (Verified Allergy, Unknown, [id number], 04/27/17) Cefepime (Verified Allergy, Unknown, face & arm redness/itching after 2nd or 3rd dose cefepime, 04/27/17) has tolerated Cefepime 03/03/17 thru 03/09/17 (this allergy added 03/06/16) Ceftriaxone (Verified Allergy, Unknown, Received in [facility] (but needed benadryl for course of therapy, 04/27/17) this was during 01/2016 [facility] admission for Rocephin; tolerated Rocephin 06/21/16 thru 06/24/16 (this allergy was added 03/06/16) Ciprofloxacin (Unverified Allergy, Unknown, ABD PAINS, 04/27/17) Cipro allergy added to profile sometime before 03/29/2002; pt has tolerated Cipro since then (see 05/25/15 thru 05/27/15); Cipro allergy was removed 05/26/15 but has been entered again 02/01/16 Sertraline (Verified Allergy, Unknown, UNKNOWN, 04/27/17) Sitagliptin (Verified Allergy, Unknown, HIVES, 04/27/17) Tetracyclines (Verified Adverse Reaction, Severe, HIVES, 04/27/17) Sulfa Antibiotics (Verified Adverse Reaction, Intermediate, MIGRAINES, ) Fexofenadine (Verified Adverse Reaction, Mild, GI SYMPTOMS, 04/27/17) Tizanidine (Verified Adverse Reaction, Mild, ITCHING-HIVES, 04/27/17) Home Medications Scheduled Aspirin (Aspirin Ec), 81 MG PO DAILY Baclofen (Lioresal), 10 MG PO TID Celecoxib (CeleBREX), 200 MG PO DAILY Duloxetine HCl (Duloxetine HCl), 30 MG PO BID Fluticasone Propionate (Nasal) (Flonase Allergy Relief), 2 SPRAYS [place]TON DAILY Home O2 Therapy (Oxygen), 2 LITERS NA DAYTIME Insulin Isophane (Human) (Novolin N Relion), 76 UNITS SQ BIDM Insulin Regular (Human) (Novolin R U-100), 36 UNITS SQ BIDM Lactobacillus Acidophilus (Floranex), 1 TAB PO TIDM Levothyroxine Sodium (Levothyroxine Sodium), 100 MCG PO QAM Linezolid (Zyvox), 600 MG PO BID Metformin HCl (Metformin HCl ER), 1,000 MG PO DAILY Metoprolol Succ (Toprol Xl) (Toprol-Xl), 25 MG PO DAILY Montelukast Sod (Montelukast Sodium), 10 MG PO HS Nystatin (Nystatin Cream), 1 APPLN TOP BID Pantoprazole (Pantoprazole Sodium), 40 MG PO QAM Polyethylene Glycol 3350 (Miralax), 17 GM PO DAILY Pregabalin (Lyrica), 200 MG PO TID Simvastatin (Zocor), 1 TAB PO HS Tiotropium [place] (Spiriva Handihaler), 1 PUFF INH QAM Ursodiol (Ursodiol), 600 MG PO BID Scheduled PRN Albuterol Hfa (Ventolin Hfa), 2 PUFFS INH QID PRN for SOB/Wheezing Albuterol Sulf (Proventil 0.083% 2.5MG/3ML), 1 VIAL NEB Q6H PRN for SOB/Wheezing Furosemide (Furosemide), 40 MG PO DAILY PRN for edema Lactulose (Chronulac), 15 ML PO DAILY PRN for Severe Constipation Miconazole Nitrate (Desenex Shake Powder), 1 APPLN TOP BID PRN for Affected Skin Folds Ondansetron Hcl (Zofran), 4 MG PO Q6H PRN for Nausea Sumatriptan Succinate (Imitrex), 100 MG PO UD PRN for Migraine Triamcinolone Acet (Triamcinolone Acetonide), 1 APPLN TOP BID PRN for Redness and Itching Review of Systems Unobtainable due to patient's current mental status Physical Exam Vital Signs Date Time Temp Pulse Resp B/P (MAP) Pulse Ox O2 Delivery O2 Flow Rate FiO2 04/27/17 22:12 79 23 169/74 90 Nasal Cannula 4.0 04/27/17 21:34 91 22 167/70 04/27/17 21:01 91 04/27/17 19:31 37.2 92 23 162/77 92 Nasal Cannula 3.0 04/27/17 17:04 90 04/27/17 17:00 37.2 91 23 162/77 92 Nasal Cannula 3.0 General Appearance: WD/WN, no apparent distress, + obese Head: normocephalic, atraumatic Eyes: normal inspection, EOMI, sclerae normal ENT: hearing grossly normal, + pertinent finding (Mucous membranes moist) Neck: supple, no JVD, trachea midline Respiratory/Chest: no respiratory distress, + decreased breath sounds Cardiovascular: regular rate, rhythm, normal peripheral pulses, + pertinent finding (Trace edema BLLE) Abdomen/GI: normal bowel sounds, non tender, soft, no organomegaly Extremities/Musculoskelatal: normal inspection, no calf tenderness, normal capillary refill Neurologic/Psych: + disoriented (When asked orientation questions patient responds "2018"), + pertinent finding (Awakens to verbal stimuli, falls back to sleep quickly during exam, no gross focal deficits noted) Skin: normal color, warm/dry Diagnostics Laboratory Results Results Past 24 Hours Test 04/27/17 17:30 04/27/17 17:35 04/27/17 17:50 04/27/17 20:24 Range/Units Urine Color YELLOW Urine Appearance CLEAR CLEAR Urine pH 5.0 4.5-7.5 Urine Specific [place] 1.018 1.000-1.030 Urine Protein 1+ NEG Urine Glucose (UA) NEG NEG Urine Ketones NEG NEG Urine Occult Blood 1+ NEG Urine Nitrite NEG NEG Urine Bilirubin NEG NEG Urine Urobilinogen NEG NEG Urine Leukocyte Esterase NEG NEG Urine WBC (Auto) 1-5 0-5 /hpf Urine RBC (Auto) 0-4 0-4 /hpf Urine Hyaline Casts (Auto) 5-10 0-5 /lpf Urine Epithelial Cells (Auto) 20-30 0-5 /lpf Urine Bacteria (Auto) NEG NEG Urine Pathogenic Casts 0-3 GRANULAR CASTS 0 /lpf Urine Yeast (Auto) BUDDING NONE PRSENT White Blood Count 12.39 4.8-10.8 K/uL Red Blood Count 4.52 4.2-5.4 M/uL Hemoglobin 10.9 12.0-16.0 g/dL Hematocrit 36.7 37-47 % Mean Corpuscular Volume 81.2 80-100 fL Mean Corpuscular Hemoglobin 24.1 25-34 pg Mean Corpuscular Hemoglobin Concent 29.7 32-36 g/dl Platelet Count 160 130-400 K/uL Mean Platelet Volume 10.9 7.4-10.4 fL Neutrophils (%) (Auto) 72.6 % Lymphocytes (%) (Auto) 12.3 % Monocytes (%) (Auto) 8.0 % Eosinophils (%) (Auto) 2.4 % Basophils (%) (Auto) 0.3 % Neutrophils # (Auto) 9.00 1.4-6.5 K/uL Lymphocytes # (Auto) 1.52 1.2-3.4 K/uL Monocytes # (Auto) 0.99 0.11-0.59 K/uL Eosinophils # (Auto) 0.30 0-0.5 K/uL Basophils # (Auto) 0.04 0-0.2 K/uL RDW Standard Deviation 54.0 36.4-46.3 fL RDW Coefficient of Variation 18.3 11.5-14.5 % Immature Granulocyte % (Auto) 4.4 % Immature Granulocyte # (Auto) 0.54 0.00-0.02 K/uL Prothrombin Time 10.1 9.0-12.0 SECONDS Prothromb Time International Ratio 1.0 0.9-1.1 Activated Partial Thromboplast Time 28.0 21.0-31.0 SECONDS Partial Thromboplastin Ratio 1.1 Sodium Level 141 136-145 mmol/L Potassium Level 4.5 3.5-5.1 mmol/L Chloride Level 105 98-107 mmol/L Carbon Dioxide Level 32 21-32 mmol/L Anion Gap 4.0 3-11 mmol/L Blood Urea Nitrogen 15 7-18 mg/dl Creatinine 0.90 0.60-1.20 mg/dl Est Creatinine Clear Calc Drug Dose 99.1 ml/min Estimated GFR () 76.7 Estimated GFR (Non- 66.2 BUN/Creatinine Ratio 16.7 10-20 Random Glucose 197 70-99 mg/dl Calcium Level 8.7 8.5-10.1 mg/dl Magnesium Level 2.1 1.8-2.4 mg/dl Total Bilirubin 0.3 0.2-1 mg/dl Direct Bilirubin 0.1 0-0.2 mg/dl Aspartate Amino Transf (AST/SGOT) 15 15-37 U/L Alanine Aminotransferase (ALT/SGPT) 22 12-78 U/L Alkaline Phosphatase 79 45-117 U/L Total Protein 7.0 6.4-8.2 gm/dl Albumin 2.8 3.4-5.0 gm/dl Lipase 80 73-393 U/L Procalcitonin 0.11 0-0.5 ng/ml Bedside Lactic Acid Venous 0.72 0.90-1.70 mmol/L Test 04/27/17 20:26 04/27/17 21:05 Range/Units Ammonia 41.6 11-32 umol/L Microbiology Results 04/27/17 Blood Culture, Received Pending 04/27/17 Blood Culture, Received Pending 04/27/17 Urine Culture, Received Pending Diagnostic Radiology CXR IMPRESSION: Persistent bibasilar opacities, left greater than right. Similar findings were noted on multiple previous exams. The findings may reflect atelectasis or pneumonia. Impression Assessment and Plan Please refer to Dr. Duncan's note for assessment and plan. Resuscitation Status VTE Prophylaxis Will order VTE Prophylaxis: Yes Assessment/Plan IM ATTENDING : Patient seen and examined. History obtained from patient, and records. Preceding documentation by NANO Christianson reviewed. FINAL ASSESSMENT AND PLAN As follows: 1. Encephalopathy Multifactorial : acute on chronic hypoxemic, hypercapnic respiratory failure secondary to obesity hypoventilation syndrome (BiPAP mask was off for a few hours with out patient being aware if it; functional disability) Hyperammonemia ? hepatic encephalopathy (possible cirrhosis 2 to NAFLD, history severe hepatic steatosis and splenomegaly on past abdominal imaging - no previous diagnosis) RTC Baclofen 2. Hypertension, slightly elevated. 3. DM2, insulin requiring, suboptimal control as of recent A1c. 4. History of cerebrovascular accident as per records. 5. Enterococcus urinary tract infection ongoing Zyvox Rx. 6. Chronic anemia, hemoglobin at baseline GMF BiPAP. Recheck ABG. Pulmonary consult. RE decompensated respiratory failure Lactulose 1 dose now, recheck ammonia in a.m., may need GI consult if with persistent elevation. Patient counseled about need to hold [id number] home Baclofen if patient sedated or confused at home. PT, OT evaluation. Pharmacy consult glycemic control. DVT prophylaxis, Lovenox subQ. DNR as per patient and patient's .
[2017-04-27] MEDS ORDERED: LEVALBUTEROL/IPRATROPIUM NEB INH STA (23:58)
[2017-04-28] VITALS (8 sets, daily range): BP systolic 133–167; BP diastolic 68–70; PULSE 71–89; TEMP 36.7–37.4; O2SAT 92–95; Ht 172.7 cm; Wt 158.9 kg
[2017-04-28] MEDS ORDERED: LEVALBUTEROL/IPRATROPIUM NEB INH PRN
[2017-04-28] MEDS ORDERED: GLUCAGON FOR INJ 1 MG VIAL SQ PRN
[2017-04-28] MEDS ORDERED: DEXTROSE 50% 50 ML SYR IV PRN
[2017-04-28] MEDS ORDERED: LACTULOSE SYRUP 10 GM/15 ML BTL 473 ML PO PRN
[2017-04-28] MEDS ORDERED: GLUCOSE 10 TABS/TUBE PO PRN
[2017-04-28] MEDS ORDERED: BACLOFEN 10 MG TAB PO PRN
[2017-04-28] MEDS ORDERED: GLUCOSE 40% GEL 15 GM TUBE PO PRN
[2017-04-28] MEDS ORDERED: PROCHLORPERAZINE INJ 5 MG in SYRINGE 4 ML IV PRN (00:15)
[2017-04-28] MEDS ORDERED: TRAMADOL HCL 50 MG TAB PO PRN (00:15)
[2017-04-28] MEDS ORDERED: LEVALBUTEROL 1.25MG/0.5ML NEB INH STA (00:23)
[2017-04-28] MEDS ORDERED: IPRATROPIUM BROMIDE NEB SOLN 0.02% 2.5 ML VIAL INH STA (00:23)
[2017-04-28] MEDS ORDERED: LEVALBUTEROL 1.25MG/0.5ML NEB INH PRN (00:30)
[2017-04-28] MEDS ORDERED: PHARMACY GLYCEMIC MGMT CONSULT PRN (00:30)
[2017-04-28] MEDS ORDERED: IPRATROPIUM BROMIDE NEB SOLN 0.02% 2.5 ML VIAL INH PRN (00:30)
[2017-04-28] MEDS ORDERED: LACTULOSE SYRUP 30 GM/45 ML UDP PO ONE (01:00)
[2017-04-28] MEDS: ENOXAPARIN 40 MG/0.4 ML SYR SQ SCH ×2 (01:18→22:11)
[2017-04-28] MEDS ORDERED: INSULIN ASPART 100 UNITS/ML 3 ML PEN SC SCH (02:00)
[2017-04-28] MEDS: LEVOTHYROXINE 100 MCG TAB PO SCH (05:16)
[2017-04-28 07:15] LABS: BASO % 0.4 %; BASO ABS # 0.04 K/uL (0-0.2); EOS % 1.8 %; EOS ABS # 0.18 K/uL (0-0.5); HEMATOCRIT 37.6 % (37-47); IG# 0.29 K/uL (0.00-0.02); LYMPH % 14.8 %; MEAN CELL VOLUME 80.9 fL (80-100); MEAN CORPUSCULAR HEMOGLOBIN 23.7 pg (25-34); MEAN CORPUSCULAR HGB CONC 29.3 g/dl (32-36); MEAN PLATELET VOLUME 10.6 fL (7.4-10.4); MONO % 10.7 %; MONO ABS # 1.09 K/uL (0.11-0.59); NEUT % 69.4 %; NEUT ABS # 7.04 K/uL (1.4-6.5); PLATELET COUNT 135 K/uL (130-400); RED CELL DISTRIBUTION WIDTH CV 17.9 % (11.5-14.5); RED CELL DISTRIBUTION WIDTH SD 52.8 fL (36.4-46.3); WHITE BLOOD COUNT 10.14 K/uL (4.8-10.8)
[2017-04-28 07:35] LABS: CALCIUM 8.8 mg/dl (8.5-10.1); CREATININE 0.92 mg/dl (0.60-1.20); POTASSIUM 4.3 mmol/L (3.5-5.1)
[2017-04-28] MEDS: POLYETHYLENE (MIRALAX) 17 GM PACK PO SCH (08:59)
[2017-04-28] MEDS ORDERED: DULOXETINE (CYMBALTA) 30 MG CAP PO SCH (09:00)
[2017-04-28] MEDS: PANTOprazole SOD 40 MG TAB PO SCH (09:01)
[2017-04-28] MEDS: URSODIOL 300 MG CAP PO SCH ×2 (09:01→22:09)
[2017-04-28] MEDS: METOPROLOL SUCC 25MG EXT REL TAB PO SCH (09:01)
[2017-04-28] MEDS: LINEZOLID 600 MG TAB PO SCH ×2 (09:01→22:09)
[2017-04-28] MEDS: LACTOBACILLUS ACIDOPHILUS (FLORANEX) TAB PO SCH ×3 (09:01→19:02)
[2017-04-28] MEDS: ASPIRIN 81 MG ECTAB PO SCH (09:01)
[2017-04-28] MEDS: TIOTROPIUM BROMIDE 5 PUFF/90 MCG INH INH SCH (09:02)
--- NOTE | 2017-04-28 09:03 | HISTORY & PHYSICAL EXAMINATION ---
DATE OF ADMISSION: 04/27/2017 IM ATTENDING : Patient seen and examined. History obtained from patient, and records. Preceding documentation by NANO Christianson reviewed. FINAL ASSESSMENT AND PLAN As follows: 1. Encephalopathy Multifactorial : acute on chronic hypoxemic, hypercapnic respiratory failure secondary to obesity hypoventilation syndrome (BiPAP mask was off for a few hours with out patient being aware if it; functional disability) Hyperammonemia ? hepatic encephalopathy (possible cirrhosis 2 to NAFLD, history severe hepatic steatosis and splenomegaly on past abdominal imaging - no previous diagnosis) RTC Baclofen 2. Hypertension, slightly elevated. 3. DM2, insulin requiring, suboptimal control as of recent A1c. 4. History of cerebrovascular accident as per records. 5. Enterococcus urinary tract infection ongoing Zyvox Rx. 6. Chronic anemia, hemoglobin at baseline GMF BiPAP. Recheck ABG. Pulmonary consult. RE decompensated respiratory failure Lactulose 1 dose now, recheck ammonia in a.m., may need GI consult if with persistent elevation. Patient counseled about need to hold [id number] home Baclofen if patient sedated or confused at home. PT, OT evaluation. Pharmacy consult glycemic control. DVT prophylaxis, Lovenox subQ. DNR as per patient and patient's . MTDD
[2017-04-28] MEDS: PREGABALIN 100 MG CAP PO SCH ×3 (09:06→22:09)
[2017-04-28] MEDS: INSULIN ASPART 100 UNITS/ML 3 ML PEN SC SCH ×4 (09:08→22:14)
[2017-04-28] MEDS: INSULIN HUMAN NPH SC SCH ×3 (09:09→19:05)
--- NOTE | 2017-04-28 12:47 | Pulmonary Consultation ---
History General Date of Service: Apr 28, 2017. Chief Complaint: Hypercapnic respiratory failure Stated Complaint: Encephalopathy HPI The patient is a 66 year old female who presents to [facility] with complaints of Encephalopathy. The patient's primary care provider is Bairon Owens M.D.. There is a very pleasant woman who has followed with pulmonary in the very far past. She last saw Dr. Jean in the office when he was still at [facility]. She has been on CPAP and converted to BiPAP for several years. In 2012 she had a titration study and BiPAP settings were changed to 12/5. 2 admissions ago she was seen by pulmonary and Dr. warren suggested that settings be changed to 14 /7. The patient reports that she has had no further titration studies or polysomnography exams. She also indicates that she has had no pulmonary function testing in the past. Her last admission in February required endotracheal intubation. She recovered quickly with rapid response resultant and lowering of her PCO2. Her is present for the interview and examination and indicates that she is out of bed approximately every other day. She is unable to ambulate and requires a Tere lift to place her in a an electric scooter. They live in a single-story home and she can move about on the scooter but is unable to go from scooter to chair or scooter to commode. She is dependent on a bedpan and reports frequent incontinence. I was unable to examine her to do a skin check so I am unsure if she has any tissue breakdown. The patient does report compliance with her BiPAP at home and uses it every night. She does state that frequently the mask needs adjustment and that infrequently "farts" out the sides and at the chin. She had no difficulty with the mask use last night. She is unsure of when her mask was last adjusted and unsure as to whether or not [facility] has replaced the mask or tubing. The patient is not on chronic steroids. She claims that she does have a nebulizer at home but does not like to use it and uses it very infrequently. The patient does report that she is diabetic and is compliant with all of her medications. She denies any fever, chills, rigors. She does report that she is unable to lay completely flat and anything midline or greater results and severe shortness of breath and cough. She does have a hospital bed in the living room. She sleeps with her head of bed elevated. She states that whenever she lays flat and goes to a >30 position she has increased cough and sputum production. She denies any hemoptysis. She states that when she does go to sleep without the BiPAP she has severe snoring and awakes with a sore throat. During his periods of shortness of breath she denies any chest pain or tightness. She further denies any shoulder, jaw, or neck pain. She does report occasional aspiration. Diet consists mainly of hamburgers and Greek fries. While she states that she likes vegetables her does not serve them frequently. She has no tobacco abuse history and no ethanol abuse history. She is willing to undergo outpatient pulmonary follow-up but will need to be coordinated with the critical access hospital transportation system and would be best between 10 and 11 AM in the morning. Review of Systems A total of 12 systems was reviewed and is negative other than as listed above in the HPI All Other Symptoms All Other Systems: Reviewed and Negative Past Medical History Past Medical History: Medical Problems: (1) Acute Pancreatitis (2) Anxiety (3) Asthma (4) Body Mass Index 50.0-59.9, Adult (5) Cerebrovascular disease (6) Chronic hypercapnic respiratory failure (7) Chronic osteoarthritis (8) Chronic pain disorder (9) Crohn's disease (10) Depression (11) Diabetes mellitus, type II (12) Diabetic neuropathy (13) Diastolic heart failure (14) Dyslipidemia (15) Gastroparesis (16) Hypertension (17) Hypertrophic cardiomyopathy (18) Hypothyroidism (19) Necrotizing Fasciitis (20) Obesity hypoventilation syndrome (21) Recurrent UTI (22) Respiratory failure, acute (23) Sleep apnea Past Surgical History: Surgical Problems: (1) Status post partial nephrectomy (2) Status post repair nasal septum (3) Status post tonsillectomy Family History FH: asthma SISTER FH: dementia MOTHER FH: diabetes mellitus MOTHER GRANDMOTHER FH: heart disease FATHER GRANDMOTHER FH: hypertension MOTHER Social History Hx Tobacco Use In Past Year?: No Smoking Status: Never Smoker Alcohol: never Drug Use: none Marital status: Housing status: lives with family (With ), lives with significant other Immunizations History of Influenza Vaccine: Yes Influenza Vaccine Date: Nov 24, 2016 History of Tetanus Vaccine?: Yes Tetanus Immunization Date: Oct 23, 2009 History of Pneumococcal: Yes Pneumococcal Date: Nov 05, 2015 History of Hepatitis B Vaccine: Unknown History of MDRO History of MDRO: Yes Type of MDRO: MRSA Allergies Coded Allergies: Fluoxetine (Verified Allergy, Severe, ANAPHYLAXIS, 04/27/17) Insulin (Verified Allergy, Severe, LANTUS/LEVEMIR- HIVES/THROAT SWELLING, 04/27/17) TOLERATES NOVOLIN N 11/19/15 aj (per pt phone call) Note: after patient had severe hives reaction from Lantus (many years ago), she had skin testing @ [place] and was tested with many other insulins. Pt says she only tolerated NOVOLIN NPH. PT HAS TOLERATED NOVOLOG ON PREVIOUS ADMISSIONS. Has tolerated Aspart during multiple admissions (12/2013, 05/2015, 07/2015) Moxifloxacin (Verified Allergy, Severe, HIVES, 04/27/17) Nitrofurantoin (Verified Allergy, Severe, HIVES, 04/27/17) Paroxetine (Verified Allergy, Severe, HIVES, 04/27/17) Quinolones (Verified Allergy, Severe, AVELOX & LEVAQUIN-HIVES, 04/27/17) Tolerated Cipro 05/2015 admission; in fact Cipro allergy removed at that time. Amitriptyline (Verified Allergy, Intermediate, Sweats and itching, 04/27/17 ) Buspirone (Verified Allergy, Intermediate, HIVES, 04/27/17) Citalopram (Verified Allergy, Intermediate, HIVES-RASH, 04/27/17) Escitalopram (Verified Allergy, Intermediate, HIVES-RASH, 04/27/17) Methadone (Verified Allergy, Intermediate, HIVES, 04/27/17) Penicillins (Verified Allergy, Intermediate, RASH,HIVES, 04/27/17) Serotonin Reuptake Inhibitors (Verified Allergy, Intermediate, MIGRAINES TO SSRIs, 04/27/17) Trazodone (Verified Allergy, Intermediate, BLOODY NOSE, HEADACHES,HIVES, ) Vancomycin (Verified Allergy, Intermediate, HIVES, 04/27/17) Prednisone (Verified Allergy, Mild, CHEST TIGHTNESS, 04/27/17) Azithromycin (Verified Allergy, Unknown, HIVES, 04/27/17) Carbamazepine (Verified Allergy, Unknown, [id number], 04/27/17) Cefepime (Verified Allergy, Unknown, face & arm redness/itching after 2nd or 3rd dose cefepime, 04/27/17) has tolerated Cefepime 03/03/17 thru 03/09/17 (this allergy added 03/06/16) Ceftriaxone (Verified Allergy, Unknown, Received in [facility] (but needed benadryl for course of therapy, 04/27/17) this was during 01/2016 [facility] admission for Rocephin; tolerated Rocephin 06/21/16 thru 06/24/16 (this allergy was added 03/06/16) Ciprofloxacin (Unverified Allergy, Unknown, ABD PAINS, 04/27/17) Cipro allergy added to profile sometime before 03/29/2002; pt has tolerated Cipro since then (see 05/25/15 thru 05/27/15); Cipro allergy was removed 05/26/15 but has been entered again 02/01/16 Sertraline (Verified Allergy, Unknown, UNKNOWN, 04/27/17) Sitagliptin (Verified Allergy, Unknown, HIVES, 04/27/17) Tetracyclines (Verified Adverse Reaction, Severe, HIVES, 04/27/17) Sulfa Antibiotics (Verified Adverse Reaction, Intermediate, MIGRAINES, ) Fexofenadine (Verified Adverse Reaction, Mild, GI SYMPTOMS, 04/27/17) Tizanidine (Verified Adverse Reaction, Mild, ITCHING-HIVES, 04/27/17) Current Medications Reported Home Medications Medications Dose Route/Sig Max Daily Dose Days Date Category Dose Instructions Zyvox (Linezolid) 600 Mg Tab 600 Mg PO BID 04/27/17 Reported Zocor (Simvastatin) 20 Mg Tab 1 Tab PO HS 30 04/27/17 Reported Floranex (Lactobacillus Acidophilus) 1 Tab Tab 1 Tab PO TIDM 04/27/17 Rx Flonase Allergy Relief (Fluticasone Propionate (Nasal)) 50 Mcg/Act Spr 2 Sprays ANTON DAILY 03/01/17 Reported CeleBREX (Celecoxib) 200 Mg Cap 200 Mg PO DAILY 03/01/17 Reported Toprol-Xl (Metoprolol Succinate) 25 Mg Tabcr 25 Mg PO DAILY 03/01/17 Reported Lioresal (Baclofen) 10 Mg Tab 10 Mg PO TID 03/01/17 Reported Novolin R U-100 (Insulin Regular (Human)) 100 Unit/Ml Inj 36 Units SQ BIDM 03/01/17 Reported breakfast and supper Novolin N Relion (Insulin Isophane (Human)) 100 Unit/Ml Inj 76 Units SQ BIDM 03/01/17 Reported breakfast and supper Triamcinolone Acetonide (Triamcinolone Acet) 45 Appln/15 Gm Cr 1 Appln TOP BID PRN 30 11/23/16 Rx Proventil 0.083% 2.5MG/3ML (Albuterol Sulf) 2.5 Mg/3 Ml Nebu 1 Vial NEB Q6H PRN 06/20/[address] OF RESCUE INHALER Ventolin Hfa (Albuterol) 200 Puffs/60774 Mcg Aers 2 Puffs INH QID PRN 06/20/16 Reported INHALE 2 PUFFS 1 MINUTE APART 4 TIMES DAILY IF NEEDED Chronulac (Lactulose) 10 Gm/15 Ml Syrp 15 Ml PO DAILY PRN 06/20/16 Reported Aspirin Ec (Aspirin) 81 Mg Tab 81 Mg PO DAILY 06/20/16 Reported Metformin HCl ER (Metformin HCl) 500 Mg Tabcr 1,000 Mg PO DAILY 06/20/16 Reported Duloxetine HCl 30 Mg Cap 30 Mg PO BID 06/20/16 Reported Montelukast Sodium (Montelukast Sod) 10 Mg Tab 10 Mg PO HS 06/20/16 Reported Furosemide 40 Mg Tab 40 Mg PO DAILY PRN 06/20/16 Reported Imitrex (Sumatriptan Succinate) 100 Mg Tab 100 Mg PO UD PRN 06/20/16 Reported TAKE ONE TABLET AT ONSET OF MIGRAINE, MAY REPEAT AFTER 2 HOURS IF NEEDED. TAKE NO MORE THAN 2 TABLETS IN 24 HOURS. Spiriva Handihaler (Tiotropium [place]) 30 Puff/540 Mcg Aerp 1 Puff INH QAM 06/20/16 Reported Nystatin Cream (Nystatin) 90 Appln/30 Gm Cr 1 Appln TOP BID 14 03/05/16 Reported APPLY TO AFFECTED AREA(S) DIRECTED Desenex Shake Powder (Miconazole Nitrate) 43 Appln/43 Gm Powd 1 Appln TOP BID PRN 11/12/15 Reported Oxygen Gas 2 Liters NA DAYTIME 11/12/15 Reported USES BIPAP WITH 4 L/MIN HS Zofran (Ondansetron HCl) 4 Mg Tab 4 Mg PO Q6H PRN 05/23/15 Reported Miralax (Polyethylene Glycol 3350) 1 Pow Pow 17 Gm PO DAILY 05/23/15 Reported Ursodiol 300 Mg Cap 600 Mg PO BID 02/20/14 Reported TAKE THIS MEDICATION AFTER BREAKFAST AND AFTER EVENING MEAL. Pantoprazole Sodium (Pantoprazole) 40 Mg Tab 40 Mg PO QAM 02/20/14 Reported TAKE THIS MEDICATION ONCE A DAY 30 MINUTES BEFORE FIRST MEAL OF THE DAY. Levothyroxine Sodium 100 Mcg Tab 100 Mcg PO QAM 11/25/13 Reported Lyrica (Pregabalin) 200 Mg Cap 200 Mg PO TID 06/17/13 Reported Physical Physical Exam Vital Signs: Date Time Temp Pulse Resp B/P (MAP) Pulse Ox O2 Delivery O2 Flow Rate FiO2 04/28/17 08:07 Nasal Cannula 4.0 04/28/17 06:55 37.3 71 20 156/69 (98) 95 BiPAP 5.5 04/28/17 01:43 89 95 5.0 04/28/17 01:30 Room Air 04/28/17 01:20 36.7 86 18 167/70 92 Nasal Cannula 4.0 04/28/17 00:25 37.2 89 22 178/73 94 04/27/17 23:07 91 22 179/72 96 Nasal Cannula 4.0 04/27/17 22:12 79 23 169/74 90 Nasal Cannula 4.0 04/27/17 21:34 91 22 167/70 04/27/17 21:01 91 04/27/17 19:31 37.2 92 23 162/77 92 Nasal Cannula 3.0 04/27/17 17:04 90 04/27/17 17:00 37.2 91 23 162/77 92 Nasal Cannula 3.0 Weight in Kilograms: 158.9 GENERAL : No acute distress. Pleasant EYES: No icterus, gaze conjugate. PERRL NOSE: No evidence of epistaxis MOUTH: No lesions or candidiasis. Upper dentures in place NECK: Supple. No stridor LUNGS: Bibasilar rales. Scattered expiratory wheezes. No rhonchi HEART: Regular, rate controlled ABDOMEN: Soft, NT, ND, BS Present EXTREMITIES: No LE edema, pedal pulses intact NEURO: [facility] Labs Results Past 24 Hours Test 04/27/17 17:30 04/27/17 17:35 04/27/17 17:50 04/27/17 21:05 Range/Units Urine Color YELLOW Urine Appearance CLEAR CLEAR Urine pH 5.0 4.5-7.5 Urine Specific [place] 1.018 1.000-1.030 Urine Protein 1+ NEG Urine Glucose (UA) NEG NEG Urine Ketones NEG NEG Urine Occult Blood 1+ NEG Urine Nitrite NEG NEG Urine Bilirubin NEG NEG Urine Urobilinogen NEG NEG Urine Leukocyte Esterase NEG NEG Urine WBC (Auto) 1-5 0-5 /hpf Urine RBC (Auto) 0-4 0-4 /hpf Urine Hyaline Casts (Auto) 5-10 0-5 /lpf Urine Epithelial Cells (Auto) 20-30 0-5 /lpf Urine Bacteria (Auto) NEG NEG Urine Pathogenic Casts 0-3 GRANULAR CASTS 0 /lpf Urine Yeast (Auto) BUDDING NONE PRSENT White Blood Count 12.39 4.8-10.8 K/uL Red Blood Count 4.52 4.2-5.4 M/uL Hemoglobin 10.9 12.0-16.0 g/dL Hematocrit 36.7 37-47 % Mean Corpuscular Volume 81.2 80-100 fL Mean Corpuscular Hemoglobin 24.1 25-34 pg Mean Corpuscular Hemoglobin Concent 29.7 32-36 g/dl Platelet Count 160 130-400 K/uL Mean Platelet Volume 10.9 7.4-10.4 fL Neutrophils (%) (Auto) 72.6 % Lymphocytes (%) (Auto) 12.3 % Monocytes (%) (Auto) 8.0 % Eosinophils (%) (Auto) 2.4 % Basophils (%) (Auto) 0.3 % Neutrophils # (Auto) 9.00 1.4-6.5 K/uL Lymphocytes # (Auto) 1.52 1.2-3.4 K/uL Monocytes # (Auto) 0.99 0.11-0.59 K/uL Eosinophils # (Auto) 0.30 0-0.5 K/uL Basophils # (Auto) 0.04 0-0.2 K/uL RDW Standard Deviation 54.0 36.4-46.3 fL RDW Coefficient of Variation 18.3 11.5-14.5 % Immature Granulocyte % (Auto) 4.4 % Immature Granulocyte # (Auto) 0.54 0.00-0.02 K/uL Prothrombin Time 10.1 9.0-12.0 SECONDS Prothromb Time International Ratio 1.0 0.9-1.1 Activated Partial Thromboplast Time 28.0 21.0-31.0 SECONDS Partial Thromboplastin Ratio 1.1 Sodium Level 141 136-145 mmol/L Potassium Level 4.5 3.5-5.1 mmol/L Chloride Level 105 98-107 mmol/L Carbon Dioxide Level 32 21-32 mmol/L Anion Gap 4.0 3-11 mmol/L Blood Urea Nitrogen 15 7-18 mg/dl Creatinine 0.90 0.60-1.20 mg/dl Est Creatinine Clear Calc Drug Dose 99.1 ml/min Estimated GFR () 76.7 Estimated GFR (Non- 66.2 BUN/Creatinine Ratio 16.7 10-20 Random Glucose 197 70-99 mg/dl Calcium Level 8.7 8.5-10.1 mg/dl Magnesium Level 2.1 1.8-2.4 mg/dl Total Bilirubin 0.3 0.2-1 mg/dl Direct Bilirubin 0.1 0-0.2 mg/dl Aspartate Amino Transf (AST/SGOT) 15 15-37 U/L Alanine Aminotransferase (ALT/SGPT) 22 12-78 U/L Alkaline Phosphatase 79 45-117 U/L Total Protein 7.0 6.4-8.2 gm/dl Albumin 2.8 3.4-5.0 gm/dl Lipase 80 73-393 U/L Procalcitonin 0.11 0-0.5 ng/ml Bedside Lactic Acid Venous 0.72 0.90-1.70 mmol/L Ammonia 41.6 11-32 umol/L Test 04/27/17 23:16 04/28/17 01:18 04/28/17 02:04 04/28/17 04:44 Range/Units Venous Blood pH 7.23 7.36-7.41 Venous Blood Partial Pressure CO2 81 38.0-50.0 mmHg Venous Blood Partial Pressure O2 73 mmHg Venous Blood HCO3 34 mmol/L Venous Blood Oxygen Saturation 92.3 % Venous Blood Base Excess 4.0 mEq/L Bedside Glucose 176 70-90 mg/dl Arterial Blood pH 7.28 7.35-7.45 Arterial Blood Partial Pressure CO2 71 35-46 mmHg Arterial Blood Partial Pressure O2 83 80-95 mm/Hg Arterial Blood HCO3 33 19-24 mmol/L Arterial Blood Oxygen Saturation 94.9 90-95 % Arterial Blood Base Excess 4.6 -9-1.8 mEq/L Arterial Blood Gas Delivery 5 L BiPAP Bill Test POS POS Test 04/28/17 06:47 Range/Units White Blood Count 10.14 4.8-10.8 K/uL Red Blood Count 4.65 4.2-5.4 M/uL Hemoglobin 11.0 12.0-16.0 g/dL Hematocrit 37.6 37-47 % Mean Corpuscular Volume 80.9 80-100 fL Mean Corpuscular Hemoglobin 23.7 25-34 pg Mean Corpuscular Hemoglobin Concent 29.3 32-36 g/dl Platelet Count 135 130-400 K/uL Mean Platelet Volume 10.6 7.4-10.4 fL Neutrophils (%) (Auto) 69.4 % Lymphocytes (%) (Auto) 14.8 % Monocytes (%) (Auto) 10.7 % Eosinophils (%) (Auto) 1.8 % Basophils (%) (Auto) 0.4 % Neutrophils # (Auto) 7.04 1.4-6.5 K/uL Lymphocytes # (Auto) 1.50 1.2-3.4 K/uL Monocytes # (Auto) 1.09 0.11-0.59 K/uL Eosinophils # (Auto) 0.18 0-0.5 K/uL Basophils # (Auto) 0.04 0-0.2 K/uL RDW Standard Deviation 52.8 36.4-46.3 fL RDW Coefficient of Variation 17.9 11.5-14.5 % Immature Granulocyte % (Auto) 2.9 % Immature Granulocyte # (Auto) 0.29 0.00-0.02 K/uL Sodium Level 142 136-145 mmol/L Potassium Level 4.3 3.5-5.1 mmol/L Chloride Level 103 98-107 mmol/L Carbon Dioxide Level 35 21-32 mmol/L Anion Gap 3.0 3-11 mmol/L Blood Urea Nitrogen 14 7-18 mg/dl Creatinine 0.92 0.60-1.20 mg/dl Est Creatinine Clear Calc Drug Dose 95.4 ml/min Estimated GFR () 74.7 Estimated GFR (Non- 64.4 BUN/Creatinine Ratio 15.4 10-20 Random Glucose 173 70-99 mg/dl Calcium Level 8.8 8.5-10.1 mg/dl Ammonia 28.0 11-32 umol/L Microbiology Results 04/27/17 Blood Culture, Received Pending 04/27/17 Blood Culture, Received Pending 04/27/17 Urine Culture, Received Pending Diagnostic Radiology CHEST ONE VIEW PORTABLE CLINICAL HISTORY: Chest pain. COMPARISON STUDY: Chest radiograph March 04, 2017. FINDINGS: There is no pneumothorax or pleural effusion. There is no evidence for pulmonary edema. Cardiomediastinal silhouette is stable. Elevation of the left hemidiaphragm is noted. There are persistent bibasilar opacities, left greater than right. Similar findings were shown on multiple previous exams. IMPRESSION: Persistent bibasilar opacities, left greater than right. Similar findings were noted on multiple previous exams. The findings may reflect atelectasis or pneumonia. Electronically signed by: Chidi Gregory M.D. 04/27/2017 5:[address] SCAN OF THE BRAIN WITHOUT IV CONTRAST CLINICAL HISTORY: Change in mental status. COMPARISON STUDY: CT of the brain dated 03/01/2017. TECHNIQUE: Unenhanced axial CT scan of the brain is performed from the vertex to the skull base. A dose lowering technique was utilized adhering to the principles of ALARA. The examination is modestly degraded by motion artifact. CT DOSE: 884.08 mGy.cm FINDINGS: Brain parenchyma: There are age-related involutional changes noting mild subcortical and periventricular microangiopathic change. There is no hemorrhage, mass effect, or evidence of acute territorial ischemia by CT criteria. Ramires-white matter is preserved. No extra-axial fluid collection is seen. Ventricles, sulci, cisterns: Prominent secondary to involutional change. Intracranial vasculature: There is atherosclerotic calcification of the cavernous carotid and vertebral arteries. Calvarium: Unremarkable. Sinuses and mastoids: The visualized paranasal sinuses are clear. There is a right mastoid effusion. The left mastoid air cells are well pneumatized. Orbits: The bony orbits are grossly intact. IMPRESSION: There is no hemorrhage, mass effect, or evidence of acute territorial ischemia by CT criteria. Electronically signed by: Luis Meraz M.D. 04/27/2017 10:04 PM Impression Assessment and Plan Hypercapnic respiratory failure * Pure respiratory acidosis * Patient reports compliance with BiPAP -DME provider [facility] * Multiple admissions over the last year for hypercapnic failure * Multifactorial to hypoventilation syndrome * Last admission it was advised that patient increase BiPAP settings to 14/7 * to bring BiPAP machine in * Continue BiPAP * Maintain SaO2 between 86 and 90% * Consider discussion regarding tracheostomy placement * Consider outpatient pulmonary function testing Elevated ammonia level * LFTs normal * Elevation is now resolved Case was reviewed and discussed with Luis Butts and then the patient was interviewed and evaluated. This patient has had 6 admissions for hypoventilation/hypercapnia. I spoke to the patient at length about her recent multiple admissions for hypercapnia. We had a long discussion about the possibility of a tracheostomy with mechanical ventilation along with nutritional support and possible physical therapy. I have asked the patient to consider this idea to help stabilize her current hyperventilation syndrome/ events and over the long-term area 2-3 year. Help control her enough to lose weight and remove the tracheostomy. I also stressed the patient needs a proper sleep team such as Dr. Dave warren and Johanna Dobson for chronic monitoring. Patient should continue on her previous BiPAP settings of 14/7. DVT prophylaxis * Lovenox daily Thank you for including us in the care of this patient. Discussed patient with Dr. Lucero at length. Please refer to his addendum for further recommendations.
--- NOTE | 2017-04-28 14:25 | Pharmacy Progress Note ---
Pharmacy Glycemic Short Note 2 Date of Service Apr 28, 2017. OUTPATIENT ANTIDIABETIC REGIMEN: * NPH 76 units SQ BIDM * Regular insulin 36 units BID with meals * HbA1c: 7.7% (03/02/17) ASSESSMENT: * Ms Ramon is a 66yo T2DM female known to the pharmacy glycemic management service from multiple past admissions. * NPH was initiated at a reduced dose overnight d/t unknown PO status. * Pt seems to be tolerating diet today and BSG was elevated pre-lunch, so NPH dose increased beginning with the dose at dinnertime. * Currently ordered regimen was successful at managing BSGs during last admission. PLAN FOR INPATIENT GLYCEMIC CONTROL: * Basal insulin * NPH 50 units SQ TID with meals * Bolus insulin * NovoLog per scale ACHS or Q6hrs while NPO * Goal Range: Low 110 mg/dL - High 140 mg/dL * Correction Factor: 8 mg/dL/unit * Nutritional / Prandial insulin per carb ratio of 1 unit per 3 grams CHO consumed (1:2.5 for breakfast only)
--- NOTE | 2017-04-28 17:51 | Progress Note ---
Internal Med Progress Note Date of Service: Apr 28, 2017. Provider Documentation: SUBJECTIVE: Seen and examined at bedside Denies chest pain, SOB, dizziness, abd pain Mental status back to baseline No other complaints Discussed with Pulmonology in detail OBJECTIVE: Vital Signs-as noted below Physical Exam: General Appearance:Obese, no apparent distress Head: normocephalic, Atraumatic Eyes: normal inspection, EOMI, PERRL Neck: supple, Trachea midline Respiratory/Chest: Decreased breath sounds, CTA Cardiovascular: S1, S2, No murmur Abdomen/GI:Soft, Non tender, Bowel sounds present Extremities/Musculoskelatal:normal inspection, no edema Neurologic/Psych:AAOX3, grossly no focal neurological deficits Skin: normal color, warm Lab data as noted below. ASSESSMENT & PLAN: Encephalopathy: Likely multifactorial Acute on chronic hypercapnic respiratory failure secondary to obesity hypoventilation syndrome Acute on chronic respiratory acidosis Continue BiPAP per Pulm recommendations Appreciate Pulmonology Input Maintain Sats between 86-90% On chronic Oxygen 2L at baseline May need Tracheostomy Placement Patient to discuss with family prior to approval Needs Outpatient PFTs and close follow up with Pulmonology Needs nutritional support and possible physical therapy to help with weight loss eventually Ammonia levels normalized Mental status back to baseline Tox screen pending Hypertension: slightly elevated. continue usual meds monitor DM II: A1c pending Continue ISS, Basal Insulin H/O CVA: continue ASA Enterococcus UTI: Continue Zyvox Chronic anemia Hb at baseline monitor DVT px: Lovenox SQ Code Status: DNR Disposition: To be determined Vital Signs: Date Time Temp Pulse Resp B/P (MAP) Pulse Ox O2 Delivery O2 Flow Rate FiO2 04/28/17 15:37 37.4 80 20 149/68 (95) 94 Nasal Cannula 4.0 04/28/17 08:07 Nasal Cannula 4.0 04/28/17 06:55 37.3 71 20 156/69 (98) 95 BiPAP 5.5 04/28/17 01:43 89 95 5.0 04/28/17 01:30 Room Air 04/28/17 01:20 36.7 86 18 167/70 92 Nasal Cannula 4.0 04/28/17 00:25 37.2 89 22 178/73 94 04/27/17 23:07 91 22 179/72 96 Nasal Cannula 4.0 04/27/17 22:12 79 23 169/74 90 Nasal Cannula 4.0 04/27/17 21:34 91 22 167/70 04/27/17 21:01 91 04/27/17 19:31 37.2 92 23 162/77 92 Nasal Cannula 3.0 Lab Results: Results Past 24 Hours Test 04/27/17 21:05 04/27/17 23:16 04/28/17 01:18 04/28/17 02:04 Range/Units Ammonia 41.6 11-32 umol/L Venous Blood pH 7.23 7.36-7.41 Venous Blood Partial Pressure CO2 81 38.0-50.0 mmHg Venous Blood Partial Pressure O2 73 mmHg Venous Blood HCO3 34 mmol/L Venous Blood Oxygen Saturation 92.3 % Venous Blood Base Excess 4.0 mEq/L Bedside Glucose 176 70-90 mg/dl Arterial Blood pH 7.28 7.35-7.45 Arterial Blood Partial Pressure CO2 71 35-46 mmHg Arterial Blood Partial Pressure O2 83 80-95 mm/Hg Arterial Blood HCO3 33 19-24 mmol/L Arterial Blood Oxygen Saturation 94.9 90-95 % Arterial Blood Base Excess 4.6 -9-1.8 mEq/L Arterial Blood Gas Delivery 5 L BiPAP Bill Test POS POS Test 04/28/17 04:44 04/28/17 06:47 04/28/17 17:05 Range/Units White Blood Count 10.14 4.8-10.8 K/uL Red Blood Count 4.65 4.2-5.4 M/uL Hemoglobin 11.0 12.0-16.0 g/dL Hematocrit 37.6 37-47 % Mean Corpuscular Volume 80.9 80-100 fL Mean Corpuscular Hemoglobin 23.7 25-34 pg Mean Corpuscular Hemoglobin Concent 29.3 32-36 g/dl Platelet Count 135 130-400 K/uL Mean Platelet Volume 10.6 7.4-10.4 fL Neutrophils (%) (Auto) 69.4 % Lymphocytes (%) (Auto) 14.8 % Monocytes (%) (Auto) 10.7 % Eosinophils (%) (Auto) 1.8 % Basophils (%) (Auto) 0.4 % Neutrophils # (Auto) 7.04 1.4-6.5 K/uL Lymphocytes # (Auto) 1.50 1.2-3.4 K/uL Monocytes # (Auto) 1.09 0.11-0.59 K/uL Eosinophils # (Auto) 0.18 0-0.5 K/uL Basophils # (Auto) 0.04 0-0.2 K/uL RDW Standard Deviation 52.8 36.4-46.3 fL RDW Coefficient of Variation 17.9 11.5-14.5 % Immature Granulocyte % (Auto) 2.9 % Immature Granulocyte # (Auto) 0.29 0.00-0.02 K/uL Sodium Level 142 136-145 mmol/L Potassium Level 4.3 3.5-5.1 mmol/L Chloride Level 103 98-107 mmol/L Carbon Dioxide Level 35 21-32 mmol/L Anion Gap 3.0 3-11 mmol/L Blood Urea Nitrogen 14 7-18 mg/dl Creatinine 0.92 0.60-1.20 mg/dl Est Creatinine Clear Calc Drug Dose 95.4 ml/min Estimated GFR () 74.7 Estimated GFR (Non- 64.4 BUN/Creatinine Ratio 15.4 10-20 Random Glucose 173 70-99 mg/dl Calcium Level 8.8 8.5-10.1 mg/dl Ammonia 28.0 11-32 umol/L Bedside Glucose 169 70-90 mg/dl
[2017-04-28] MEDS: MONTELUKAST SOD 10 MG TAB PO SCH (22:09)
[2017-04-29] MEDS: LEVOTHYROXINE 100 MCG TAB PO SCH (05:35)
[2017-04-29 07:45] VITALS: O2SAT 94
[2017-04-29 07:56] VITALS: BP 132/71; PULSE 90; TEMP 37; O2SAT 94
[2017-04-29 08:15] LABS: HEMATOCRIT 37.6 % (37-47); HEMOGLOBIN 11.4 g/dL (12.0-16.0); MEAN CELL VOLUME 78.5 fL (80-100); MEAN CORPUSCULAR HEMOGLOBIN 23.8 pg (25-34); MEAN CORPUSCULAR HGB CONC 30.3 g/dl (32-36); MEAN PLATELET VOLUME 10.4 fL (7.4-10.4); PLATELET COUNT 147 K/uL (130-400); RED CELL DISTRIBUTION WIDTH CV 17.9 % (11.5-14.5); RED CELL DISTRIBUTION WIDTH SD 50.6 fL (36.4-46.3)
[2017-04-29 08:50] LABS: CREATININE 0.92 mg/dl (0.60-1.20); POTASSIUM 3.9 mmol/L (3.5-5.1)
[2017-04-29 09:09] VITALS: O2SAT 94
[2017-04-29] MEDS: INSULIN HUMAN NPH SC SCH ×3 (09:35→18:35)
[2017-04-29] MEDS: INSULIN ASPART 100 UNITS/ML 3 ML PEN SC SCH ×4 (09:36→20:52)
[2017-04-29] MEDS: TIOTROPIUM BROMIDE 5 PUFF/90 MCG INH INH SCH (09:49)
[2017-04-29] MEDS: LACTOBACILLUS ACIDOPHILUS (FLORANEX) TAB PO SCH ×3 (09:49→18:22)
[2017-04-29] MEDS: POLYETHYLENE (MIRALAX) 17 GM PACK PO SCH (09:50)
[2017-04-29] MEDS: PREGABALIN 100 MG CAP PO SCH ×3 (09:50→20:12)
[2017-04-29] MEDS: ASPIRIN 81 MG ECTAB PO SCH (09:50)
[2017-04-29] MEDS: METOPROLOL SUCC 25MG EXT REL TAB PO SCH (09:51)
[2017-04-29] MEDS: LINEZOLID 600 MG TAB PO SCH ×2 (09:51→20:09)
[2017-04-29] MEDS: URSODIOL 300 MG CAP PO SCH ×2 (09:51→20:09)
[2017-04-29] MEDS: PANTOprazole SOD 40 MG TAB PO SCH (09:52)
[2017-04-29 10:25] LABS: HEMOGLOBIN A1C 6.7 % (4.5-5.6)
[2017-04-29 15:03] VITALS: BP 126/80; PULSE 85; TEMP 37.1; O2SAT 96
--- NOTE | 2017-04-29 18:45 | Progress Note ---
Internal Med Progress Note Date of Service: Apr 29, 2017. Provider Documentation: SUBJECTIVE: Seen and examined at bedside No new complaints Patient prefers not to get Tracheostomy and would like to continue BiPAP Denies chest pain, SOB, dizziness, abd pain OBJECTIVE: Vital Signs-as noted below Physical Exam: General Appearance:Obese, no apparent distress Head: normocephalic, Atraumatic Eyes: normal inspection, EOMI, PERRL Neck: supple, Trachea midline Respiratory/Chest: Decreased breath sounds, CTA Cardiovascular: S1, S2, No murmur Abdomen/GI:Soft, Non tender, Bowel sounds present Extremities/Musculoskelatal:normal inspection, no edema Neurologic/Psych:AAOX3, grossly no focal neurological deficits Skin: normal color, warm Lab data as noted below. ASSESSMENT & PLAN: Encephalopathy: Likely multifactorial Acute on chronic hypercapnic respiratory failure secondary to obesity hypoventilation syndrome Acute on chronic respiratory acidosis Continue BiPAP per Pulm recommendations Appreciate Pulmonology Input Maintain Sats between 88-90% On chronic Oxygen 2L at baseline May need Tracheostomy Placement but patient currently not interested Needs Outpatient PFTs and close follow up with Pulmonology Needs nutritional support and possible physical therapy to help with weight loss eventually Ammonia levels normalized Mental status back to baseline Tox screen: Negative Hypertension: Stable continue usual meds monitor DM II: A1c:6.7 Continue ISS, Basal Insulin H/O CVA: continue ASA Enterococcus UTI: Continue Zyvox Chronic anemia Hb at baseline monitor DVT px: Lovenox SQ Code Status: DNR Disposition: Plan to discharge Home with Home Health when stable Vital Signs: Date Time Temp Pulse Resp B/P (MAP) Pulse Ox O2 Delivery O2 Flow Rate FiO2 04/29/17 15:03 37.1 85 20 126/80 (95) 96 Nasal Cannula 5.0 04/29/17 09:09 94 Nasal Cannula 04/29/17 07:56 37.0 90 19 132/71 (91) 94 BiPAP 04/29/17 07:45 94 BiPAP 04/28/17 23:13 37.3 80 17 133/68 (89) 94 CPAP 04/28/17 23:05 BiPAP 4.0 04/28/17 22:50 80 94 5.0 04/28/17 22:28 88 95 5.0 Lab Results: Results Past 24 Hours Test 04/28/17 20:34 04/29/17 08:03 04/29/17 08:07 04/29/17 11:45 Range/Units Bedside Glucose 154 126 216 70-90 mg/dl White Blood Count 11.80 4.8-10.8 K/uL Red Blood Count 4.79 4.2-5.4 M/uL Hemoglobin 11.4 12.0-16.0 g/dL Hematocrit 37.6 37-47 % Mean Corpuscular Volume 78.5 80-100 fL Mean Corpuscular Hemoglobin 23.8 25-34 pg Mean Corpuscular Hemoglobin Concent 30.3 32-36 g/dl RDW Standard Deviation 50.6 36.4-46.3 fL RDW Coefficient of Variation 17.9 11.5-14.5 % Platelet Count 147 130-400 K/uL Mean Platelet Volume 10.4 7.4-10.4 fL Arterial Blood pH 7.46 7.35-7.45 Arterial Blood Partial Pressure CO2 47 35-46 mmHg Arterial Blood Partial Pressure O2 83 80-95 mm/Hg Arterial Blood HCO3 33 19-24 mmol/L Arterial Blood Oxygen Saturation 96.3 90-95 % Arterial Blood Base Excess 8.1 -9-1.8 mEq/L Arterial Blood Gas Delivery 5L Bill Test POS POS Sodium Level 141 136-145 mmol/L Potassium Level 3.9 3.5-5.1 mmol/L Chloride Level 103 98-107 mmol/L Carbon Dioxide Level 34 21-32 mmol/L Anion Gap 4.0 3-11 mmol/L Blood Urea Nitrogen 15 7-18 mg/dl Creatinine 0.92 0.60-1.20 mg/dl Est Creatinine Clear Calc Drug Dose 95.4 ml/min Estimated GFR () 74.7 Estimated GFR (Non- 64.4 BUN/Creatinine Ratio 16.1 10-20 Random Glucose 115 70-99 mg/dl Estimated Average Glucose 146 mg/dl Hemoglobin A1c 6.7 4.5-5.6 % Calcium Level 9.0 8.5-10.1 mg/dl
[2017-04-29] MEDS: MONTELUKAST SOD 10 MG TAB PO SCH (20:09)
[2017-04-29] MEDS: ENOXAPARIN 40 MG/0.4 ML SYR SQ SCH (21:18)
[2017-04-29 22:23] VITALS: PULSE 76; O2SAT 96
[2017-04-29 22:40] VITALS: BP 145/75; PULSE 84; TEMP 36.7; O2SAT 94
[2017-04-30] MEDS: LEVOTHYROXINE 100 MCG TAB PO SCH (06:32)
[2017-04-30 06:54] LABS: HEMATOCRIT 37.7 % (37-47); HEMOGLOBIN 11.5 g/dL (12.0-16.0); MEAN CELL VOLUME 78.2 fL (80-100); MEAN CORPUSCULAR HEMOGLOBIN 23.9 pg (25-34); MEAN CORPUSCULAR HGB CONC 30.5 g/dl (32-36); PLATELET COUNT 160 K/uL (130-400); RED CELL DISTRIBUTION WIDTH CV 18.2 % (11.5-14.5); RED CELL DISTRIBUTION WIDTH SD 51.1 fL (36.4-46.3); WHITE BLOOD COUNT 10.61 K/uL (4.8-10.8)
[2017-04-30 07:11] LABS: CALCIUM 8.5 mg/dl (8.5-10.1); POTASSIUM 3.4 mmol/L (3.5-5.1)
[2017-04-30 07:51] VITALS: BP 123/95; PULSE 85; TEMP 36.8; O2SAT 91
[2017-04-30 08:00] VITALS: O2SAT 91
[2017-04-30] MEDS ORDERED: ONDANSETRON INJ 2 MG/ML 2 ML VIAL IV PRN (08:15)
[2017-04-30] MEDS: INSULIN ASPART 100 UNITS/ML 3 ML PEN SC SCH ×4 (08:50→21:55)
[2017-04-30] MEDS: INSULIN HUMAN NPH SC SCH ×3 (08:51→19:16)
[2017-04-30] MEDS: LACTOBACILLUS ACIDOPHILUS (FLORANEX) TAB PO SCH ×3 (08:52→19:06)
[2017-04-30] MEDS: TIOTROPIUM BROMIDE 5 PUFF/90 MCG INH INH SCH (08:53)
[2017-04-30] MEDS: PREGABALIN 100 MG CAP PO SCH ×3 (08:59→21:49)
[2017-04-30] MEDS: METOPROLOL SUCC 25MG EXT REL TAB PO SCH (09:00)
[2017-04-30] MEDS: POLYETHYLENE (MIRALAX) 17 GM PACK PO SCH (09:00)
[2017-04-30] MEDS: URSODIOL 300 MG CAP PO SCH ×2 (09:00→21:50)
[2017-04-30] MEDS: PANTOprazole SOD 40 MG TAB PO SCH (09:00)
[2017-04-30] MEDS: LINEZOLID 600 MG TAB PO SCH ×2 (09:00→21:50)
[2017-04-30] MEDS: ASPIRIN 81 MG ECTAB PO SCH (09:02)
--- NOTE | 2017-04-30 11:12 | Pharmacy Progress Note ---
Glycemic: Assessment & Plan Date of Service Apr 30, 2017. Assessment & Plan Assessment * 66 yo F admitted with encephalopathy 2nd acute on chronic respiratory failure vs. UTI * Stressors stable * BSG's ranging 118-216 mg/dL over the last 24 hours (ranging 118-154 mg/dL if exclude lunch BSG). Lunch BSG likely not sales representative metals of pre-prandial glucose as AM Novolog administered 2 hours before lunch BSG obtained. Will therefore not make adjustments based on elevated lunch BSG for now * Continue current regimen Plan Continue current regimen as follows: * Insulin NPH 50 units SC TIDM * Novolog ACHS * Goal range 110-140 mg/dL * Correction factor: 8 mg/dL/unit * Carbohydrate ratio: 1 unit insulin / 3 g CHO consumed (tighter to 2.5 g CHO consumed at breakfast only) Pharmacy will continue to monitor patient daily and write orders per [facility] inpatient glycemic control protocol. Thanks. * Please note that the plan above was derived based on current level of insulin resistance and hospital stress. These recommendations are appropriate for inpatient admission only. Plan of care upon discharge will need to be reassessed to avoid potential outpatient hypo/hyperglycemia.
--- NOTE | 2017-04-30 13:07 | Pulmonology Progress Note ---
Pulmonary Progress Note Date of Service Apr 30, 2017. Attending Dr. Lucero Subjective Patient notes she is still nervous at times and mildly short of breath Objective Patient arrival had a long conversation and she showed no signs of accessory muscle use or tachypnea: Vital signs: Stable on 5 liters nasal cannula while awake and 5 liters with BiPAP support at night Respiratory: Decreased breath sounds at the bases Cardiac: S1-S2 distant heart sounds Abdomen: Morbidly obese but positive bowel sounds soft nontender Assessment & Plan 66-year-old female admitted for acute on chronic hypercapnic respiratory failure : 1. Hypercapnia: Patient's ABG from 04/29/2017 shows a PA CO2 47 with proper oxygenation with a PaO2 of 83 of 5 liters nasal cannula. It appears that the patient's baseline O2 requirement is 3 liters/per minute of oxygen support. This time I do believe the patient is getting close to her baseline level and can most likely be discharged in the next 24 hours if no acute issues arise. The patient needs to follow up with the Sleep team Dr. Dave Bennett and/or Johanna Ponce. The patient was in the room today and we also spoke about the possibility of a tracheostomy to help control her recurrent events. Data Medications: Current Inpatient Medications Medications (Trade) Dose Ordered Sig/Keith Route Start Time Stop Time Status Last Admin Dose Admin Enoxaparin Sodium (Lovenox Inj) 40 mg DAILY@2200 SQ 04/28/17 01:00 05/28/17 00:59 04/29/17 21:18 40 MG Acetaminophen (Tylenol Tab) 325 mg Q6H PRN PO 04/28/17 00:00 05/28/17 00:00 Glucose (Glucose 40% Gel) 15-30 GRAMS 15 GRAMS... UD PRN PO 04/28/17 00:00 05/28/17 00:00 Glucose (Glucose Chew Tab) 4-8 Tablets 4 Tabl... UD PRN PO 04/28/17 00:00 05/28/17 00:00 Dextrose (Dextrose 50% 50ML Syringe) 25-50ML OF 50% DW IV FOR... UD PRN IV 04/28/17 00:00 05/28/17 00:00 Glucagon (Glucagon Inj) 1 mg UD PRN SQ 04/28/17 00:00 05/28/17 00:00 Aspirin (Ecotrin Tab) 81 mg DAILY PO 04/28/17 09:00 05/28/17 08:59 04/30/17 09:02 81 MG Baclofen (Lioresal Tab) 10 mg TID PRN PO 04/28/17 00:00 05/28/17 00:00 Lactobacillus Acidophilus (Floranex Tab) 1 tab TIDM PO 04/28/17 08:00 05/28/17 07:59 04/30/17 12:54 1 TAB Lactulose (Chronulac Syrup) 10 gm DAILY PRN PO 04/28/17 00:00 05/28/17 00:00 Levothyroxine Sodium (Synthroid Tab) 100 mcg DAILYBB PO 04/28/17 06:00 05/28/17 06:59 04/30/17 06:32 100 MCG Linezolid (Zyvox Tab) 600 mg BID PO 04/28/17 09:00 05/08/17 08:59 04/30/17 09:00 600 MG Metoprolol Succinate (Toprol Xl Tab) 25 mg DAILY PO 04/28/17 09:00 05/28/17 08:59 04/30/17 09:00 25 MG Montelukast Sodium (Singulair Tab) 10 mg HS PO 04/28/17 21:00 05/28/17 20:59 04/29/17 20:09 10 MG Pantoprazole Sodium (Protonix Tab) 40 mg QAM PO 04/28/17 09:00 05/28/17 08:59 04/30/17 09:00 40 MG Pregabalin (Lyrica Cap) 200 mg TID PO 04/28/17 09:00 05/28/17 08:59 04/30/17 08:59 200 MG Tiotropium [place] (Spiriva Handihaler Inhaler) 1 puff QAM INH 04/28/17 09:00 05/28/17 08:59 04/30/17 08:53 1 PUFF Ursodiol (Actigall Cap) 600 mg BID PO 04/28/17 09:00 05/28/17 08:59 04/30/17 09:00 600 MG Polyethylene (Miralax Powder Packet) 17 gm DAILY PO 04/28/17 09:00 05/28/17 08:59 04/30/17 09:00 17 GM Tramadol HCl (Ultram Tab) 25 mg Q6H PRN PO 04/28/17 00:15 05/28/17 00:14 Prochlorperazine Edisylate 5 mg/ Syringe 5 ml @ 5 mls/min Q6H PRN IV 04/28/17 00:15 05/28/17 00:14 Ipratropium [place] (Atrovent 0.02% 0.5MG/2.5ML Neb) 0.5 mg Q4H PRN INH 04/28/17 00:30 05/28/17 00:29 Levalbuterol (Xopenex 1.25MG/ 0.5ML Neb) 1.25 mg Q4H PRN INH 04/28/17 00:30 05/28/17 00:29 Miscellaneous Information (Consult Glycemic Management Pharmacy) 1 ea UD PRN N/A 04/28/17 00:30 05/28/17 00:29 Insulin Aspart (novoLOG ASPART) SLIDING SCALE QDB SC 04/28/17 08:00 05/28/17 07:59 04/30/17 08:50 28 UNITS Insulin Aspart (novoLOG ASPART) SLIDING SCALE TID@1200,1715,2100 SC 04/28/17 12:00 05/28/17 11:59 04/30/17 12:59 19 UNITS Insulin Human NPH (novoLIN-N NPH) 50 units TIDM SC 04/28/17 17:45 05/28/17 17:44 04/30/17 13:00 50 UNITS Ondansetron HCl (Zofran Inj) 4 mg Q6H PRN IV 04/30/17 08:15 05/30/17 08:14 04/30/17 08:24 4 MG Vital Signs: Date Time Temp Pulse Resp B/P (MAP) Pulse Ox O2 Delivery O2 Flow Rate FiO2 04/30/17 08:00 91 Nasal Cannula 5.0 04/30/17 07:51 36.8 85 18 123/95 (104) 91 CPAP 04/29/17 22:40 36.7 84 20 145/75 (98) 94 CPAP 04/29/17 22:23 76 96 5.0 04/29/17 20:00 Nasal Cannula 04/29/17 15:03 37.1 85 20 126/80 (95) 96 Nasal Cannula 5.0 Laboratory Results: Last 24 Hours Test 04/29/17 17:15 04/29/17 20:29 04/30/17 06:40 04/30/17 08:03 Bedside Glucose 154 mg/dl 143 mg/dl 118 mg/dl White Blood Count 10.61 K/uL Red Blood Count 4.82 M/uL Hemoglobin 11.5 g/dL Hematocrit 37.7 % Mean Corpuscular Volume 78.2 fL Mean Corpuscular Hemoglobin 23.9 pg Mean Corpuscular Hemoglobin Concent 30.5 g/dl RDW Standard Deviation 51.1 fL RDW Coefficient of Variation 18.2 % Platelet Count 160 K/uL Mean Platelet Volume 10.0 fL Sodium Level 142 mmol/L Potassium Level 3.4 mmol/L Chloride Level 103 mmol/L Carbon Dioxide Level 34 mmol/L Anion Gap 5.0 mmol/L Blood Urea Nitrogen 18 mg/dl Creatinine 1.00 mg/dl Est Creatinine Clear Calc Drug Dose 87.8 ml/min Estimated GFR () 67.5 Estimated GFR (Non- 58.3 BUN/Creatinine Ratio 17.7 Random Glucose 103 mg/dl Calcium Level 8.5 mg/dl
--- NOTE | 2017-04-30 14:15 | Progress Note ---
Internal Med Progress Note Date of Service: Apr 30, 2017. Provider Documentation: SUBJECTIVE: Seen and examined at bedside No significant change from yesterday No new complaints Denies chest pain, SOB, dizziness, abd pain Plan to wean oxygen to 3L to maintain Sats above 90 as able OBJECTIVE: Vital Signs-as noted below Physical Exam: General Appearance:Obese, no apparent distress Head: normocephalic, Atraumatic Eyes: normal inspection, EOMI, PERRL Neck: supple, Trachea midline Respiratory/Chest: Decreased breath sounds, CTA Cardiovascular: S1, S2, No murmur Abdomen/GI:Soft, Non tender, Bowel sounds present Extremities/Musculoskelatal:normal inspection, no edema Neurologic/Psych:AAOX3, grossly no focal neurological deficits Skin: normal color, warm Lab data as noted below. ASSESSMENT & PLAN: Encephalopathy: Likely multifactorial Acute on chronic hypercapnic respiratory failure secondary to obesity hypoventilation syndrome Acute on chronic respiratory acidosis Continue BiPAP per Pulm recommendations Appreciate Pulmonology Input Maintain Sats between 88-90% On chronic Oxygen 3L at baseline May need Tracheostomy Placement but patient currently not interested and would like other options Needs Outpatient PFTs and close follow up with Pulmonology Needs nutritional support and possible physical therapy to help with weight loss eventually Ammonia levels normalized Mental status back to baseline Tox screen: Negative Wean oxygen to 3L NC as able to maintain Sats as above Hypokalemia: Replace and monitor Hypertension: Stable continue usual meds monitor DM II: A1c:6.7 Continue ISS, Basal Insulin H/O CVA: continue ASA Enterococcus UTI: Continue Zyvox Chronic anemia Hb at baseline monitor DVT px: Lovenox SQ Code Status: DNR Disposition: Plan to discharge Home with Home Health when stable Likely discharge in next 24-48 hours if stable Uses [facility] for transportation technical services coordinator following Vital Signs: Date Time Temp Pulse Resp B/P (MAP) Pulse Ox O2 Delivery O2 Flow Rate FiO2 04/30/17 08:00 91 Nasal Cannula 5.0 04/30/17 07:51 36.8 85 18 123/95 (104) 91 CPAP 04/29/17 22:40 36.7 84 20 145/75 (98) 94 CPAP 04/29/17 22:23 76 96 5.0 04/29/17 20:00 Nasal Cannula 04/29/17 15:03 37.1 85 20 126/80 (95) 96 Nasal Cannula 5.0 Lab Results: Results Past 24 Hours Test 04/29/17 17:15 04/29/17 20:29 04/30/17 06:40 04/30/17 08:03 Range/Units Bedside Glucose 154 143 118 70-90 mg/dl White Blood Count 10.61 4.8-10.8 K/uL Red Blood Count 4.82 4.2-5.4 M/uL Hemoglobin 11.5 12.0-16.0 g/dL Hematocrit 37.7 37-47 % Mean Corpuscular Volume 78.2 80-100 fL Mean Corpuscular Hemoglobin 23.9 25-34 pg Mean Corpuscular Hemoglobin Concent 30.5 32-36 g/dl RDW Standard Deviation 51.1 36.4-46.3 fL RDW Coefficient of Variation 18.2 11.5-14.5 % Platelet Count 160 130-400 K/uL Mean Platelet Volume 10.0 7.4-10.4 fL Sodium Level 142 136-145 mmol/L Potassium Level 3.4 3.5-5.1 mmol/L Chloride Level 103 98-107 mmol/L Carbon Dioxide Level 34 21-32 mmol/L Anion Gap 5.0 3-11 mmol/L Blood Urea Nitrogen 18 7-18 mg/dl Creatinine 1.00 0.60-1.20 mg/dl Est Creatinine Clear Calc Drug Dose 87.8 ml/min Estimated GFR () 67.5 Estimated GFR (Non- 58.3 BUN/Creatinine Ratio 17.7 10-20 Random Glucose 103 70-99 mg/dl Calcium Level 8.5 8.5-10.1 mg/dl
[2017-04-30] MEDS ORDERED: POTASSIUM CHLORIDE 20 MEQ TABCR PO ONE (14:30)
[2017-04-30 15:06] VITALS: BP 130/84; PULSE 79; TEMP 37.1; O2SAT 96
[2017-04-30 15:30] VITALS: O2SAT 95
[2017-04-30] MEDS: MONTELUKAST SOD 10 MG TAB PO SCH (21:50)
[2017-04-30] MEDS: ENOXAPARIN 40 MG/0.4 ML SYR SQ SCH (21:51)
[2017-04-30 22:50] VITALS: BP 116/72; PULSE 68; TEMP 36.7; O2SAT 91
[2017-05-01] MEDS: LEVOTHYROXINE 100 MCG TAB PO SCH (06:13)
[2017-05-01 06:35] LABS: CALCIUM 8.4 mg/dl (8.5-10.1); CREATININE 0.94 mg/dl (0.60-1.20); POTASSIUM 3.8 mmol/L (3.5-5.1)
[2017-05-01 07:53] VITALS: BP 128/63; PULSE 79; TEMP 36.7; O2SAT 97
[2017-05-01] MEDS: TIOTROPIUM BROMIDE 5 PUFF/90 MCG INH INH SCH (08:59)
[2017-05-01] MEDS: LACTOBACILLUS ACIDOPHILUS (FLORANEX) TAB PO SCH ×3 (09:00→18:24)
[2017-05-01] MEDS: PANTOprazole SOD 40 MG TAB PO SCH (09:01)
[2017-05-01] MEDS: ASPIRIN 81 MG ECTAB PO SCH (09:01)
[2017-05-01] MEDS: URSODIOL 300 MG CAP PO SCH ×2 (09:01→21:09)
[2017-05-01] MEDS: POLYETHYLENE (MIRALAX) 17 GM PACK PO SCH (09:01)
[2017-05-01] MEDS: METOPROLOL SUCC 25MG EXT REL TAB PO SCH (09:03)
[2017-05-01] MEDS: LINEZOLID 600 MG TAB PO SCH ×2 (09:04→21:09)
[2017-05-01] MEDS: INSULIN ASPART 100 UNITS/ML 3 ML PEN SC SCH ×4 (09:15→21:00)
[2017-05-01] MEDS: PREGABALIN 100 MG CAP PO SCH ×3 (09:16→21:09)
[2017-05-01] MEDS: INSULIN HUMAN NPH SC SCH ×3 (09:16→18:31)
--- NOTE | 2017-05-01 10:07 | Pharmacy Progress Note ---
Glycemic: Assessment & Plan Date of Service May 01, 2017. Assessment & Plan Assessment * 66 yo F admitted with encephalopathy 2nd acute on chronic respiratory failure vs. UTI * Stressors stable * BSG's ranging 141-215 mg/dL over the last 24 hours * Previously with tighter CHO ratio at breakfast as compared to lunch, dinner, and HS. However, dinner and HS BSG's have all been above range x3 days ( ranging 143-215) * Will tighten CHO ratio so all same throughout the day * In case above change is too aggressive, will increase goal range so any BSG less than 120 mg/dL will have insulin from CHO ratio subtracted Plan * Insulin NPH 50 units SC TIDM * Novolog ACHS * Increase Goal range 120-150 mg/dL * Correction factor: 8 mg/dL/unit * Tighten Carbohydrate ratio: 1 unit insulin / 2.5 g CHO consumed Pharmacy will continue to monitor patient daily and write orders per [facility] inpatient glycemic control protocol. Thanks. * Please note that the plan above was derived based on current level of insulin resistance and hospital stress. These recommendations are appropriate for inpatient admission only. Plan of care upon discharge will need to be reassessed to avoid potential outpatient hypo/hyperglycemia.
[2017-05-01 15:10] VITALS: BP 111/67; PULSE 82; TEMP 37; O2SAT 92
[2017-05-01 17:00] VITALS: O2SAT 92
--- NOTE | 2017-05-01 17:47 | Progress Note ---
Internal Med Progress Note Date of Service: May 01, 2017. Provider Documentation: SUBJECTIVE: Seen and examined at bedside Doing well today Nausea resolved No new complaints Denies chest pain, SOB, dizziness, abd pain Saturating well on 3L NC OBJECTIVE: Vital Signs-as noted below Physical Exam: General Appearance:Obese, no apparent distress Head: normocephalic, Atraumatic Eyes: normal inspection, EOMI, PERRL Neck: supple, Trachea midline Respiratory/Chest: Decreased breath sounds, CTA Cardiovascular: S1, S2, No murmur Abdomen/GI:Soft, Non tender, Bowel sounds present Extremities/Musculoskelatal:normal inspection, no edema Neurologic/Psych:AAOX3, grossly no focal neurological deficits Skin: normal color, warm Lab data as noted below. ASSESSMENT & PLAN: Encephalopathy: Likely multifactorial Acute on chronic hypercapnic respiratory failure secondary to obesity hypoventilation syndrome Acute on chronic respiratory acidosis Continue BiPAP per Pulm recommendations Appreciate Pulmonology Input Maintain Sats between 88-90% On chronic Oxygen 2-3L at baseline May need Tracheostomy Placement but patient currently not interested and would like other options Needs Outpatient PFTs and close follow up with Pulmonology () Needs nutritional support and possible physical therapy to help with weight loss eventually Ammonia levels normalized Mental status back to baseline Tox screen: Negative Wean oxygen to maintain Sats as above Continue current management Hypokalemia: Resolved monitor Hypertension: Stable continue usual meds monitor DM II: A1c:6.7 Continue ISS, Basal Insulin H/O CVA: continue ASA Enterococcus UTI: Continue Zyvox to complete the course (Prescribed by PCP) Chronic anemia Hb at baseline monitor DVT px: Lovenox SQ Code Status: DNR Disposition: Plan to discharge Home with Home Health when stable Likely discharge tomorrow if stable Uses [facility] for transportation 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 services manager following Vital Signs: Date Time Temp Pulse Resp B/P (MAP) Pulse Ox O2 Delivery O2 Flow Rate FiO2 05/01/17 15:10 37.0 82 18 111/67 (82) 92 Nasal Cannula 3.0 05/01/17 08:00 Nasal Cannula 3.0 05/01/17 07:53 36.7 79 18 128/63 (84) 97 Nasal Cannula 3.0 04/30/17 23:35 BiPAP 04/30/17 22:50 36.7 68 18 116/72 (87) 91 BiPAP 3.0 Lab Results: Results Past 24 Hours Test 04/30/17 20:23 05/01/17 05:57 05/01/17 08:20 05/01/17 12:01 Range/Units Bedside Glucose 215 141 180 70-90 mg/dl Sodium Level 141 136-145 mmol/L Potassium Level 3.8 3.5-5.1 mmol/L Chloride Level 101 98-107 mmol/L Carbon Dioxide Level 35 21-32 mmol/L Anion Gap 5.0 3-11 mmol/L Blood Urea Nitrogen 16 7-18 mg/dl Creatinine 0.94 0.60-1.20 mg/dl Est Creatinine Clear Calc Drug Dose 93.4 ml/min Estimated GFR () 72.8 Estimated GFR (Non- 62.8 BUN/Creatinine Ratio 17.2 10-20 Random Glucose 123 70-99 mg/dl Calcium Level 8.4 8.5-10.1 mg/dl Test 05/01/17 17:19 Range/Units Bedside Glucose 137 70-90 mg/dl
[2017-05-01] MEDS: MONTELUKAST SOD 10 MG TAB PO SCH (21:09)
[2017-05-01] MEDS: ENOXAPARIN 40 MG/0.4 ML SYR SQ SCH (21:45)
[2017-05-01 22:55] VITALS: BP 112/73; PULSE 81; TEMP 37.2; O2SAT 91
[2017-05-02] MEDS: LEVOTHYROXINE 100 MCG TAB PO SCH (05:34)
[2017-05-02 06:34] LABS: HEMATOCRIT 38.6 % (37-47); HEMOGLOBIN 11.3 g/dL (12.0-16.0); MEAN CELL VOLUME 79.4 fL (80-100); MEAN CORPUSCULAR HEMOGLOBIN 23.3 pg (25-34); MEAN CORPUSCULAR HGB CONC 29.3 g/dl (32-36); MEAN PLATELET VOLUME 10.4 fL (7.4-10.4); PLATELET COUNT 143 K/uL (130-400); RED CELL DISTRIBUTION WIDTH CV 18.8 % (11.5-14.5); RED CELL DISTRIBUTION WIDTH SD 53.6 fL (36.4-46.3); WHITE BLOOD COUNT 9.25 K/uL (4.8-10.8)
[2017-05-02 06:57] LABS: CALCIUM 8.5 mg/dl (8.5-10.1); CREATININE 1.09 mg/dl (0.60-1.20); POTASSIUM 3.5 mmol/L (3.5-5.1)
[2017-05-02 08:19] VITALS: BP 129/76; PULSE 75; TEMP 37; O2SAT 92
[2017-05-02] MEDS: LACTOBACILLUS ACIDOPHILUS (FLORANEX) TAB PO SCH ×3 (08:33→18:20)
[2017-05-02] MEDS: URSODIOL 300 MG CAP PO SCH ×2 (08:36→20:54)
[2017-05-02] MEDS: LINEZOLID 600 MG TAB PO SCH ×2 (08:39→20:54)
[2017-05-02] MEDS: ASPIRIN 81 MG ECTAB PO SCH (08:41)
[2017-05-02] MEDS: PANTOprazole SOD 40 MG TAB PO SCH (08:43)
[2017-05-02] MEDS: METOPROLOL SUCC 25MG EXT REL TAB PO SCH (08:44)
[2017-05-02] MEDS: TIOTROPIUM BROMIDE 5 PUFF/90 MCG INH INH SCH (08:45)
[2017-05-02] MEDS: POLYETHYLENE (MIRALAX) 17 GM PACK PO SCH (09:00)
[2017-05-02] MEDS: PREGABALIN 100 MG CAP PO SCH ×3 (09:04→20:55)
[2017-05-02] MEDS: INSULIN ASPART 100 UNITS/ML 3 ML PEN SC SCH ×4 (09:27→20:40)
[2017-05-02] MEDS: INSULIN HUMAN NPH SC SCH ×3 (09:32→18:23)
[2017-05-02 09:43] VITALS: O2SAT 92
[2017-05-02 12:11] VITALS: BP 121/62; PULSE 74; TEMP 37; O2SAT 92
--- NOTE | 2017-05-02 14:45 | Progress Note ---
Internal Med Progress Note Date of Service: May 02, 2017. Provider Documentation: SUBJECTIVE: Seen and examined at bedside Complains of mild low back pain No other complaints Denies chest pain, SOB, dizziness, abd pain Saturating well on 3L NC Panned to be discharged home tomorrow due to transportation problems OBJECTIVE: Vital Signs-as noted below Physical Exam: General Appearance:Obese, no apparent distress Head: normocephalic, Atraumatic Eyes: normal inspection, EOMI, PERRL Neck: supple, Trachea midline Respiratory/Chest: Decreased breath sounds, CTA Cardiovascular: S1, S2, No murmur Abdomen/GI:Soft, Non tender, Bowel sounds present Extremities/Musculoskelatal:normal inspection, no edema Neurologic/Psych:AAOX3, grossly no focal neurological deficits Skin: normal color, warm Lab data as noted below. ASSESSMENT & PLAN: Encephalopathy: Likely multifactorial Acute on chronic hypercapnic respiratory failure secondary to obesity hypoventilation syndrome Acute on chronic respiratory acidosis Continue BiPAP per Pulm recommendations Appreciate Pulmonology Input Maintain Sats between 88-90% On chronic Oxygen 2-3L at baseline May need Tracheostomy Placement but patient currently not interested and would like other options Needs Outpatient PFTs and close follow up with Pulmonology () Needs nutritional support and possible physical therapy to help with weight loss eventually Ammonia levels normalized Mental status back to baseline Tox screen: Negative Wean oxygen to maintain Sats as above Plan to discharge home tomorrow once transportation is arranged Hypokalemia: Resolved monitor Hypertension: Stable continue usual meds monitor DM II: A1c:6.7 Continue ISS, Basal Insulin H/O CVA: continue ASA Enterococcus UTI: Continue Zyvox to complete the course (Prescribed by PCP) Chronic anemia Hb at baseline monitor DVT px: Lovenox SQ Code Status: DNR Disposition: Plan to discharge Home with Home Health when stable Plan to discharge home tomorrow is stable office services representative following Vital Signs: Date Time Temp Pulse Resp B/P (MAP) Pulse Ox O2 Delivery O2 Flow Rate FiO2 05/02/17 12:11 37.0 74 20 121/62 (81) 92 Nasal Cannula 3.0 05/02/17 09:43 92 Nasal Cannula 3.0 05/02/17 08:19 37.0 75 22 129/76 (93) 92 Nasal Cannula 3.0 05/02/17 07:25 Nasal Cannula 3.0 05/01/17 23:23 BiPAP 2.5 05/01/17 22:55 37.2 81 16 112/73 (86) 91 BiPAP 2.0 05/01/17 19:55 Nasal Cannula 3.0 05/01/17 17:00 92 Nasal Cannula 3.0 05/01/17 15:10 37.0 82 18 111/67 (82) 92 Nasal Cannula 3.0 Lab Results: Results Past 24 Hours Test 05/01/17 17:19 05/01/17 20:46 05/02/17 06:07 05/02/17 07:57 Range/Units Bedside Glucose 137 138 120 70-90 mg/dl White Blood Count 9.25 4.8-10.8 K/uL Red Blood Count 4.86 4.2-5.4 M/uL Hemoglobin 11.3 12.0-16.0 g/dL Hematocrit 38.6 37-47 % Mean Corpuscular Volume 79.4 80-100 fL Mean Corpuscular Hemoglobin 23.3 25-34 pg Mean Corpuscular Hemoglobin Concent 29.3 32-36 g/dl RDW Standard Deviation 53.6 36.4-46.3 fL RDW Coefficient of Variation 18.8 11.5-14.5 % Platelet Count 143 130-400 K/uL Mean Platelet Volume 10.4 7.4-10.4 fL Sodium Level 140 136-145 mmol/L Potassium Level 3.5 3.5-5.1 mmol/L Chloride Level 102 98-107 mmol/L Carbon Dioxide Level 32 21-32 mmol/L Anion Gap 6.0 3-11 mmol/L Blood Urea Nitrogen 17 7-18 mg/dl Creatinine 1.09 0.60-1.20 mg/dl Est Creatinine Clear Calc Drug Dose 80.6 ml/min Estimated GFR () 60.8 Estimated GFR (Non- 52.5 BUN/Creatinine Ratio 15.3 10-20 Random Glucose 120 70-99 mg/dl Calcium Level 8.5 8.5-10.1 mg/dl Test 05/02/17 11:55 Range/Units Bedside Glucose 168 70-90 mg/dl
[2017-05-02 15:20] VITALS: O2SAT 91
[2017-05-02] MEDS: ACETAMINOPHEN 325 MG TAB PO PRN ×2 (15:23→22:25)
[2017-05-02 15:48] VITALS: BP 121/63; PULSE 74; TEMP 37.3; O2SAT 91
[2017-05-02] MEDS: MONTELUKAST SOD 10 MG TAB PO SCH (20:54)
[2017-05-02] MEDS: ENOXAPARIN 40 MG/0.4 ML SYR SQ SCH (20:55)
[2017-05-02 23:00] VITALS: BP 124/56; PULSE 84; TEMP 36.5; O2SAT 91
[2017-05-03] MEDS: LEVOTHYROXINE 100 MCG TAB PO SCH (05:44)
[2017-05-03 07:45] VITALS: BP 138/83; PULSE 78; TEMP 37.4; O2SAT 93
[2017-05-03] MEDS: LINEZOLID 600 MG TAB PO SCH (08:42)
[2017-05-03] MEDS: METOPROLOL SUCC 25MG EXT REL TAB PO SCH (08:42)
[2017-05-03] MEDS: LACTOBACILLUS ACIDOPHILUS (FLORANEX) TAB PO SCH (08:43)
[2017-05-03] MEDS: PANTOprazole SOD 40 MG TAB PO SCH (08:43)
[2017-05-03] MEDS: POLYETHYLENE (MIRALAX) 17 GM PACK PO SCH (08:43)
[2017-05-03] MEDS: URSODIOL 300 MG CAP PO SCH (08:43)
[2017-05-03] MEDS: ASPIRIN 81 MG ECTAB PO SCH (08:44)
[2017-05-03] MEDS: TIOTROPIUM BROMIDE 5 PUFF/90 MCG INH INH SCH (08:44)
[2017-05-03] MEDS: PREGABALIN 100 MG CAP PO SCH (08:47)
[2017-05-03] MEDS: INSULIN ASPART 100 UNITS/ML 3 ML PEN SC SCH (08:53)
[2017-05-03] MEDS: INSULIN HUMAN NPH SC SCH (08:54)
--- NOTE | 2017-05-03 09:51 | Progress Note ---
Internal Med Progress Note Date of Service: May 03, 2017. Provider Documentation: SUBJECTIVE: Seen and examined at bedside Doing well today, she feels she is ready for discharge Reports having back pain and leg pain overnight which resolved Denies chest pain, SOB, dizziness, abd pain Family at bedside OBJECTIVE: Vital Signs-as noted below Physical Exam: General Appearance:Obese, no apparent distress Head: normocephalic, Atraumatic Eyes: normal inspection, EOMI, PERRL Neck: supple, Trachea midline Respiratory/Chest: Decreased breath sounds, CTA Cardiovascular: S1, S2, No murmur Abdomen/GI:Soft, Non tender, Bowel sounds present Extremities/Musculoskelatal:normal inspection, no edema Neurologic/Psych:AAOX3, grossly no focal neurological deficits Skin: normal color, warm Lab data as noted below. ASSESSMENT & PLAN: Encephalopathy: Likely multifactorial Acute on chronic hypercapnic respiratory failure secondary to obesity hypoventilation syndrome Acute on chronic respiratory acidosis Continue BiPAP per Pulm recommendations Appreciate Pulmonology Input Maintain Sats between 88-90% On chronic Oxygen 2-3L at baseline May need Tracheostomy Placement but patient currently not interested and would like other options Needs Outpatient PFTs and close follow up with Pulmonology () Needs nutritional support and possible physical therapy to help with weight loss eventually Ammonia levels normalized Mental status back to baseline Tox screen: Negative Wean oxygen to maintain Sats as above Plan to discharge home today Hypokalemia: Resolved monitor Hypertension: Stable continue usual meds monitor DM II: A1c:6.7 Continue ISS, Basal Insulin H/O CVA: continue ASA Enterococcus UTI: Continue Zyvox to complete the course (Prescribed by PCP) Chronic anemia Hb at baseline monitor DVT px: Lovenox SQ Code Status: DNR Disposition: Plan to discharge Home with Home Health today Follow up with your PCP on 05/05/17 at 12:20pm Follow up with [facility]Pulmonology () in 1-2 weeks ad advised (Discussed with while you are hospitalized) Get Pulmonary function tests done as outpatient and follow up with your [employer] Complete 2 more days of antibiotic course as prescribed Seek immediate medical attention if your symptoms reoccur or worsen Vital Signs: Date Time Temp Pulse Resp B/P (MAP) Pulse Ox O2 Delivery O2 Flow Rate FiO2 05/03/17 07:45 37.4 78 16 138/83 (101) 93 Nasal Cannula 3.0 05/03/17 07:10 Nasal Cannula 3.0 BiPAP 05/02/17 23:00 36.5 84 16 124/56 (78) 91 BiPAP 3.0 05/02/17 19:30 Nasal Cannula 3.0 05/02/17 15:48 37.3 74 16 121/63 (82) 91 Nasal Cannula 3.0 05/02/17 15:20 91 Nasal Cannula 3.0 05/02/17 12:11 37.0 74 20 121/62 (81) 92 Nasal Cannula 3.0 05/02/17 09:43 92 Nasal Cannula 3.0 Lab Results: Results Past 24 Hours Test 05/02/17 11:55 05/02/17 17:17 05/02/17 20:34 05/03/17 08:18 Range/Units Bedside Glucose 168 108 93 96 70-90 mg/dl
--- NOTE | 2017-05-03 09:55 | Discharge Summary ---
Discharge Summary Date of Service May 03, 2017. Discharge Summary Admission Date: Apr 27, 2017 at 22:13 Discharge Date: May 03, 2017 Discharge Disposition: Home with services Principal Diagnosis: Encephalopathy, Chronic respiratory failure, Obesity Hypoventilation syndrome Procedures: CT Head: There is no hemorrhage, mass effect, or evidence of acute territorial ischemia by CT criteria. CXR: Persistent bibasilar opacities, left greater than right. Similar findings were noted on multiple previous exams. The findings may reflect atelectasis or pneumonia. Consultations: Pulmonology Pending Studies/Follow-Up: Follow up with your PCP on 05/05/17 at 12:20pm Follow up with [facility]-Pulmonology () in 1-2 weeks ad advised (Discussed with while you are hospitalized) Get Pulmonary function tests done as outpatient and follow up with your [facility] [place] Complete 2 more days of antibiotic course as prescribed Seek immediate medical attention if your symptoms reoccur or worsen Medication Reconciliation Continued Medications: Albuterol Hfa (Ventolin Hfa) 200 Puffs/80340 Mcg Aers 2 PUFFS INH QID PRN for SOB/Wheezing INHALE 2 PUFFS 1 MINUTE APART 4 TIMES DAILY IF NEEDED Albuterol Sulf (Proventil 0.083% 2.5MG/3ML) 2.5 Mg/3 Ml Nebu 1 VIAL NEB Q6H PRN for SOB/Wheezing USE IN PLACE OF RESCUE INHALER Aspirin (Aspirin Ec) 81 Mg Tab 81 MG PO DAILY Baclofen (Lioresal) 10 Mg Tab 10 MG PO TID, TAB Celecoxib (CeleBREX) 200 Mg Cap 200 MG PO DAILY, CAP Duloxetine HCl (Duloxetine HCl) 30 Mg Cap 30 MG PO BID Fluticasone Propionate (Nasal) (Flonase Allergy Relief) 50 Mcg/Act Spr 2 SPRAYS ANTON DAILY Furosemide (Furosemide) 40 Mg Tab 40 MG PO DAILY PRN for edema Home O2 Therapy (Oxygen) Gas 2 LITERS NA DAYTIME USES BIPAP WITH 4 L/MIN HS Insulin Isophane (Human) (Novolin N Relion) 100 Unit/Ml Inj 76 UNITS SQ BIDM breakfast and supper Insulin Regular (Human) (Novolin R U-100) 100 Unit/Ml Inj 36 UNITS SQ BIDM breakfast and supper Lactobacillus Acidophilus (Floranex) 1 Tab Tab 1 TAB PO TIDM, #120 TAB Lactulose (Chronulac) 10 Gm/15 Ml Syrp 15 ML PO DAILY PRN for Severe Constipation Levothyroxine Sodium (Levothyroxine Sodium) 100 Mcg Tab 100 MCG PO QAM Linezolid (Zyvox) 600 Mg Tab 600 MG PO BID, TAB Metformin HCl (Metformin HCl ER) 500 Mg Tabcr 1000 MG PO DAILY Metoprolol Succ (Toprol Xl) (Toprol-Xl) 25 Mg Tabcr 25 MG PO DAILY, #30 TAB Miconazole Nitrate (Desenex Shake Powder) 43 Appln/43 Gm Powd 1 APPLN TOP BID PRN for Affected Skin Folds Montelukast Sod (Montelukast Sodium) 10 Mg Tab 10 MG PO HS Nystatin (Nystatin Cream) 90 Appln/30 Gm Cr 1 APPLN TOP BID for 14 Days APPLY TO AFFECTED AREA(S) DIRECTED Ondansetron Hcl (Zofran) 4 Mg Tab 4 MG PO Q6H PRN for Nausea, TAB Pantoprazole (Pantoprazole Sodium) 40 Mg Tab 40 MG PO QAM TAKE THIS MEDICATION ONCE A DAY 30 MINUTES BEFORE FIRST MEAL OF THE DAY. Polyethylene Glycol 3350 (Miralax) 1 Pow Pow 17 GM PO DAILY Pregabalin (Lyrica) 200 Mg Cap 200 MG PO TID, CAP Simvastatin (Zocor) 20 Mg Tab 1 TAB PO HS for 30 Days, #30 TAB 5 Refills Sumatriptan Succinate (Imitrex) 100 Mg Tab 100 MG PO UD PRN for Migraine TAKE ONE TABLET AT ONSET OF MIGRAINE, MAY REPEAT AFTER 2 HOURS IF NEEDED. TAKE NO MORE THAN 2 TABLETS IN 24 HOURS. Tiotropium Metuchen (Spiriva Handihaler) 30 Puff/540 Mcg Aerp 1 PUFF INH QAM Triamcinolone Acet (Triamcinolone Acetonide) 45 Appln/15 Gm Cr 1 APPLN TOP BID PRN for Redness and Itching for 30 Days, GM Ursodiol (Ursodiol) 300 Mg Cap 600 MG PO BID TAKE THIS MEDICATION AFTER BREAKFAST AND AFTER EVENING MEAL. Admission Information HPI (per Admitting provider): 66-year-old female who presents to the ER with altered mental status. Patient is very well-known to our service, most recently admitted to [facility] 03/01-03/09 for acute on chronic hypercapnic respiratory failure failure and urinary tract infection. Patient did require intubation during that admission. History is obtained from patient's is the bedside. He reports the last week patient developed UTI-like symptoms. Urine culture was obtained which grew enterococcus. Patient follows with Dr. Corey from infectious disease who placed the patient on Zyvox on 04/21. Has been reports patient was initially improving over the past few days she has been increasingly lethargic and confused. He reports she has been unable to feed herself. She has been incontinent of a foul -smelling urine. No other symptoms have been reported. In the ED, patient's WBC 12 K, other labs are unremarkable. Patient was given a dose of IV Cipro. Physical Exam (per Admitting): General Appearance: WD/WN, no apparent distress, + obese Head: normocephalic, atraumatic Eyes: normal inspection, EOMI, sclerae normal ENT: hearing grossly normal, + pertinent finding (Mucous membranes moist) Neck: supple, no JVD, trachea midline Respiratory/Chest: no respiratory distress, + decreased breath sounds Cardiovascular: regular rate, rhythm, normal peripheral pulses, + pertinent finding (Trace edema BLLE) Abdomen/GI: normal bowel sounds, non tender, soft, no organomegaly Extremities/Musculoskelatal: normal inspection, no calf tenderness, normal capillary refill Neurologic/Psych: + disoriented (When asked orientation questions patient responds "2018"), + pertinent finding (Awakens to verbal stimuli, falls back to sleep quickly during exam, no gross focal deficits noted) Skin: normal color, warm/dry Hospital Course Encephalopathy: Likely multifactorial Acute on chronic hypercapnic respiratory failure secondary to obesity hypoventilation syndrome Acute on chronic respiratory acidosis Continue BiPAP per Pulm recommendations Appreciate Pulmonology Input Maintain Sats between 88-90% On chronic Oxygen 2-3L at baseline May need Tracheostomy Placement but patient currently not interested and would like other options Needs Outpatient PFTs and close follow up with Pulmonology () Needs nutritional support and possible physical therapy to help with weight loss eventually Ammonia levels normalized Mental status back to baseline Tox screen: Negative Wean oxygen to maintain Sats as above Plan to discharge home today Hypokalemia: Resolved monitor Hypertension: Stable continue usual meds monitor DM II: A1c:6.7 Continue ISS, Basal Insulin H/O CVA: continue ASA Enterococcus UTI: Continue Zyvox to complete the course (Prescribed by PCP) Chronic anemia Hb at baseline monitor DVT px: Lovenox SQ Code Status: DNR Disposition: Plan to discharge Home with Home Health today Follow up with your PCP on 05/05/17 at 12:20pm Follow up with [facility]-Pulmonology () in 1-2 weeks ad advised (Discussed with while you are hospitalized) Get Pulmonary function tests done as outpatient and follow up with your [facility] [place] Complete 2 more days of antibiotic course as prescribed Seek immediate medical attention if your symptoms reoccur or worsen Total time spent on discharge = 33 minutes This includes examination of the patient, discharge planning, medication reconciliation, and communication with other providers. Discharge Instructions Discharge Instructions Date of Service May 03, 2017. Admission Reason for Admission: Encephalopathy Discharge Discharge Diagnosis / Problem: Encephalopathy, Chronic respiratory failure, Obesity Hypoventilation syndrome Discharge Goals Goal(s): Decrease discomfort, Improve function Activity Recommendations Activity Limitations: resume your previous activity Exercise/Sports Limitations: as tolerated . Instructions / Follow-Up Instructions / Follow-Up Follow up with your PCP on 05/05/17 at 12:20pm Follow up with [facility]-Pulmonology () in 1-2 weeks ad advised (Discussed with while you are hospitalized) Get Pulmonary function tests done as outpatient and follow up with your [facility] [place] Complete 2 more days of antibiotic course as prescribed Seek immediate medical attention if your symptoms reoccur or worsen Current Hospital Diet Patient's current hospital diet: Diabetes Type 2 Diet, AHA Diet (Heart Healthy) Discharge Diet Recommended Diet: AHA Diet (Heart Healthy), Diabetes Type 2 Diet Pending Studies Studies pending at discharge: no Laboratory Results Hemoglobin A1c Test 04/29/17 08:03 Range/Units Estimated Average Glucose 146 mg/dl Hemoglobin A1c 6.7 H 4.5-5.6 % Medical Emergencies . Who to Call and When: Medical Emergencies: If at any time you feel your situation is an emergency, please call 911 immediately. . Non-Emergent Contact Non-Emergency issues call your: Primary Care Provider, [facility] [place] [facility] Call Non-Emergent contact if: you have a fever, your pain is not controlled, your pain is worsening, your pain is unusual for you, your pain is concerning you, you have any medication questions Seek immediate medical attention if your symptoms reoccur or worsen . . "Provider Documentation" section prepared by Fred Rowan. .
[2017-05-03 10:13] VITALS: BP 138/83; PULSE 78; TEMP 37.4; O2SAT 93
--- NOTE | 2017-05-03 10:13 | Pharmacy Progress Note ---
Pharmacy Glycemic Short Note 2 Date of Service May 03, 2017. OUTPATIENT ANTIDIABETIC REGIMEN: * NPH 76 units SQ BIDM * Regular insulin 36 units BID with meals * HbA1c: 7.7% (03/02/17) ASSESSMENT: * BSGs acceptable * No change to inpatient regimen PLAN FOR INPATIENT GLYCEMIC CONTROL: * Basal insulin * NPH 50 units SQ TID with meals * Bolus insulin * NovoLog per scale ACHS or Q6hrs while NPO * Goal Range: Low 120 mg/dL - High 150 mg/dL * Correction Factor: 8 mg/dL/unit * Nutritional / Prandial insulin per carb ratio of 1 unit per 2.5 grams CHO consumed Discharge Recommendations: * Pharmacy using TID NPH dosing on inpatient side because this worked well in the past * A1c acceptable so okay to resume outpatient regimen on discharge * This can be resumed with PM doses lizette
--- NOTE | 2017-05-04 12:00 | EDITING REQUIRED CODING QUERY ---
CODING QUERY To promote full compliance with coding requirements relating to patient care, provider participation is requested in all cases of barber uncertainty. Please assist us with the question(s) below: Coding Question(s): Please clarify below, in your clinical opinion, regarding the Respiratory Failure, as it documented as both Acute on Chronic Hypercapnic Repiratory Failure and just Chronic Respiratory Failure is documented at the top portion of the Discharge Summary. ( X ) Acute on Chronic Respiratory Failure was treated ( ) Chronic Respiratory Failure only was treated Physician's Response(s): Thank you Ninfa Luu Principal Diagnosis: "_that condition established after study, to be chiefly responsible for occasioning the admission of the patient to the hospital for care." Co-Existing Principal Diagnosis: "_when two or more diagnoses equally meet the criteria for principal diagnosis as determined by the circumstances of admission, diagnostic work up, and/or therapy provided, and the Alphabetic Index, Tabular List, or another coding guideline does not provide sequencing direction, any one of the diagnoses may be sequenced first." "When the physician has documented what appears to be a current diagnosis in the body of the record, but has not included the diagnosis in the final diagnostic statement, the physician should be asked whether the diagnosis should be added." (Source [facility]oding [facility] 2 QTR90. p3-4)
== END 2017-05-03 10:51 | disposition home health service (06) | DRG 205 ==
LOC: EDBD 16:48 → C.EDC 16:49 → C.EDINP 22:13 → EDBEDREQSVC 23:56 → EDBEDREQ 23:59 → CANRESERV 04-28 00:05 → ENRESERV 04-28 00:05 → CANBEDREQ 04-28 00:18 → ENRESERV 04-28 00:41 → C.MSW 04-28 01:07
PROVIDERS: ADMIT Internal Medicine; ATTEND Internal Medicine
DX: E66.2 Morbid (severe) obesity with alveolar hypoventilation (principal); G93.40 Encephalopathy, unspecified; J96.22 Acute and chronic respiratory failure with hypercapnia; E87.2 Acidosis; Z68.43 Body mass index [BMI] 50.0-59.9, adult; N39.0 Urinary tract infection, site not specified; I50.32 Chronic diastolic (congestive) heart failure; I42.2 Other hypertrophic cardiomyopathy; B95.2 Enterococcus as the cause of diseases classified elsewhere; E87.6 Hypokalemia; D64.9 Anemia, unspecified; I11.0 Hypertensive heart disease with heart failure; E11.43 Type 2 diabetes mellitus with diabetic autonomic (poly)neuropathy; E03.9 Hypothyroidism, unspecified; G89.29 Other chronic pain; J45.909 Unspecified asthma, uncomplicated; F41.9 Anxiety disorder, unspecified; Z51.81 Encounter for therapeutic drug level monitoring; Z79.899 Other long term (current) drug therapy; Z79.4 Long term (current) use of insulin; Z79.82 Long term (current) use of aspirin; Z99.81 Dependence on supplemental oxygen; Z66 Do not resuscitate; Z87.440 Personal history of urinary (tract) infections; Z86.14 Personal history of Methicillin resistant Staphylococcus aureus infection; Z86.73 Personal history of transient ischemic attack (TIA), and cerebral infarction without residual deficits; Z88.8 Allergy status to other drugs, medicaments and biological substances; Z88.1 Allergy status to other antibiotic agents; Z88.6 Allergy status to analgesic agent; Z88.5 Allergy status to narcotic agent; Z88.0 Allergy status to penicillin; Z88.2 Allergy status to sulfonamides; Z82.5 Family history of asthma and other chronic lower respiratory diseases; Z81.8 Family history of other mental and behavioral disorders; Z83.3 Family history of diabetes mellitus; Z82.49 Family history of ischemic heart disease and other diseases of the circulatory system

== ENCOUNTER → 2017-05-14 | Outpatient (CLI) | payer OTHER ==
[~2017-05-14] MED LIST changes: +LINE1TAB6 PO; +SIMV20TA5 PO; -TRAZ50TA35 PO
--- NOTE | 2017-06-06 06:39 | CODING QUERY NO DIAGNOSIS ---
Valid Physician Order Needed A valid physician order must be submitted in order to properly bill for the service(s) provided, including date of service(s), valid diagnosis, and physician signature. If these tests are done on a recurring basis the original physican order must be submitted in order to code and bill for the service(s) provided. Please fax us the original, signed physician order so that we may expedite billing to [phone] DOS 05/14/17 * UA CLEAN CATCH * URINE CULTURE CLEAN CATCH Thank you [facility] Information Management
== END | disposition home or self-care (01) ==
LOC: C.LABSPEC 10:12
PROVIDERS: ATTEND Internal Medicine Infectious Disease
DX: N39.0 Urinary tract infection, site not specified (principal)

== ENCOUNTER 2018-10-24 14:29 | Inpatient (IN) ==
[2018-10-24] MEDS ORDERED: ALBUT/IPRATROP 3MG/0.5MG NEB 3 ML VIAL NEB STA (15:18)
--- NOTE | 2018-10-24 15:33 | XRay Report ---
XR chest 1V portable CLINICAL HISTORY: Chest Pain dyspnea COMPARISON STUDY: 12/16/2017 FINDINGS: Mild increase in cardiac size compared to the prior exam. Moderate increase in pulmonary va sculature. Mild atelectatic and/or infiltrative changes left base unaltered from the prior study. IMPRESSION: Developing congestive heart failure. The above report was generated using voice recognition software. It may contain grammatical, syntax or spelling errors. Electronically signed by: Blayne Harmon M.D. 10/24/2018 3:32 PM
[2018-10-24 16:22] LABS: Prothrombin Time 10.5 Seconds (9.0-12.0)
[2018-10-24 16:41] LABS: Mean Corpuscular Hgb Conc 25.9 g/dL (32-36); Platelet Count 129 K/uL (130-400)
[2018-10-24 16:43] LABS: Base Excess VBG 12.2 mEq/L; Basophils # (auto) 0.02 K/uL (0-0.2); Basophils % (auto) 0.3 %; Eosinophils # (auto) 0.01 K/uL (0-0.5); Eosinophils % (auto) 0.1 %; Hemoglobin 7.5 g/dL (12.0-16.0); Hypochromasia Present; Immature Granulocytes # (auto) 0.14 K/uL (0.00-0.02); Immature Granulocytes % (auto) 2.1 %; Lymphocytes # (auto) 0.78 K/uL (1.2-3.4); Lymphocytes % (auto) 11.7 %; Mean Corpuscular Hemoglobin 19.8 pg (25-34); Mean Corpuscular Volume 76.7 fL (80-100); Monocytes % (auto) 7.5 %; Neutrophils # (auto) 5.24 K/uL (1.4-6.5); Neutrophils % (auto) 78.3 %; Oxygen Saturation VBG 81.4 %; Platelet Estimate Normal (Normal); Polychromasia 1+; RDW Coefficient of Variation 20.3 % (11.5-14.5); RDW Standard Deviation 55.2 fL (36.4-46.3); Red Blood Count 3.78 M/uL (4.2-5.4); White Blood Count 6.69 K/uL (4.8-10.8); pH VBG 7.35 (7.36-7.41)
[2018-10-24 17:04] LABS: Alanine Aminotransferase 14 U/L (12-78); Albumin Level 2.9 gm/dl (3.4-5.0); Aspartate Aminotransferase 8 U/L (15-37); Bilirubin,Total 0.3 mg/dl (0.2-1); Blood Urea Nitrogen 18 mg/dl (7-18); Calcium 8.7 mg/dl (8.5-10.1); Carbon Dioxide 40 mmol/L (21-32); Chloride 100 mmol/L (98-107); Est GFR (Non-African American) 72.5; Lipase 70 U/L (73-393); Magnesium 2.2 mg/dl (1.8-2.4); Phosphorus 2.8 mg/dl (2.5-4.9); Potassium 4.1 mmol/L (3.5-5.1); Sodium 142 mmol/L (136-145); Total Protein 6.7 gm/dl (6.4-8.2); Troponin I < 0.015 ng/ml (0-0.045)
[2018-10-24 17:05] LABS: Albumin Globulin Ratio 0.8 (0.9-2); Alkaline Phosphatase 101 U/L (45-117); Globulin 3.8 gm/dl (2.5-4.0); Glucose 387 mg/dl (70-99); NT Pro B Type Natriuretic Pept 694 pg/ml (0-900)
[2018-10-24 17:21] LABS: Beta-Hydroxybutyrate 1.13 mg/dl (0.2-2.81)
[2018-10-24] MEDS ORDERED: OPTIRAY 320 125ml IV PRN (17:21)
--- NOTE | 2018-10-24 17:34 | CT Scan Report ---
CT ANGIOGRAM OF THE CHEST CLINICAL HISTORY: Atypical chest pain COMPARISON STUDY: 02/01/2016, chest x-ray dated 10/24/2018 TECHNIQUE: Following the IV administration of 120 mL of Optiray-320, CT angiogram of the thorax was p erformed from the thoracic inlet to the lung bases utilizing the pulmonary embolus protocol. Images a re reviewed in the axial, sagittal, and coronal planes. IV contrast was administered without complica tion. MIP imaging was performed. A dose lowering technique was utilized adhering to the principles o f ALARA. CT DOSE: FINDINGS: There is a borderline enlarged pretracheal lymph node, similar to the prior study. There is no pathol ogic hilar or axillary lymphadenopathy. There was no evidence of thoracic aortic dilatation. Pulmonary to opacification is somewhat suboptimal in part due to the patient's large body habitus. Th ere are no pulmonary artery filling defects to indicate acute pulmonary embolism. No pleural effusions are visualized. There is bilateral dependent lower lobe atelectasis/consolidation. There are low lung volumes. There is elevation left hemidiaphragm. There is splenomegaly. IMPRESSION: 1. Marked splenomegaly 2. Elevation of the left hemidiaphragm 3. No evidence of acute pulmonary embolism 3. Bilateral lower lobe airspace opacities, atelectatic versus infectious/inflammatory Electronically signed by: Yvon Hermosillo M.D. 10/24/2018 5:33 PM
--- NOTE | 2018-10-24 17:42 | CT Scan Report ---
CT abd pelvis IV con only CLINICAL HISTORY: anemia, abdominal pain COMPARISON STUDY: 10/25/2017 TECHNIQUE: The patient was scanned in a dynamic helical fashion during intravenous administration of 120 cc of Optiray 320. A dose lowering technique was utilized adhering to the principles of ALARA. CT DOSE: 2814.86 mGy.cm FINDINGS: Lower chest: There is elevation left hemidiaphragm. There is bibasilar atelectasis/consolidation. Liver: The contrast-enhanced liver is normal in size, contour, and attenuation. There is no intrahepa tic biliary ductal dilatation. The hepatic veins and portal veins are patent. Gallbladder: Unremarkable. Spleen: The spleen is enlarged measuring approximately 20 cm. Pancreas: Unremarkable. Adrenal glands: There is a 22 mm left adrenal nodule slightly larger than on the preceding study. The re is a new 11 mm right adrenal gland nodule. Kidneys: There is right-sided nephrolithiasis. There is a 22 mm left renal cyst. Bowel: Due to the patient's large body habitus, portions the left colon are nonvisualized. There are no transition zones to indicate bowel obstruction. There is no evidence of acute diverticulitis. Ther e are no findings to indicate acute appendicitis. There is a suspected 2 cm polypoid lesion within th e transverse colon. This is increased in size when compared the prior study. Peritoneum: There is no intraperitoneal free air or abdominal ascites. Vasculature: The abdominal aorta is normal in course and caliber. Adenopathy: None. Pelvic viscera: There is a 6.6 cm exophytic uterine fibroid. Skeletal structures: There is a superior endplate L2 compression fracture which was not present on th e prior study. IMPRESSION: 1. Technically limited study secondary to the patient's large body habitus. 2. No evidence of bowel obstruction. No evidence of free air 3. Increasing moderate splenomegaly (20 cm) 4. Right-sided nephrolithiasis. No hydronephrosis. No ureteral calculi identified 5. Enlarging 22 mm left adrenal nodule, and new 11 mm right adrenal nodule 6. 6.6 cm exophytic uterine fibroid 7. Superior endplate L2 vertebral body fracture, finding not present on the preceding October 2017 study 8. Bilateral lower lobe atelectasis/consolidation 9. Suspected enlarging 2 cm polypoid lesion of the transverse colon. Endoscopic correlation is recomm ended if not previously performed. Electronically signed by: Yvon Hermosillo M.D. 10/24/2018 5:41 PM
[2018-10-24] MEDS ORDERED: cefTRIAXone SODIUM 2,000 MG/70 ML BAG IV STA (18:12)
[2018-10-24] MEDS ORDERED: methylPREDNISolone 125 MG/2 ML VIAL IV STA (18:12)
[2018-10-24] MEDS ORDERED: AZITHROMYCIN 500 MG in DEXTROSE 5% 250 ML IV STA (18:15)
[2018-10-24] MEDS ORDERED: DiphenhydrAMINE HCL 50 MG/ML VIAL IV STA (18:15)
--- NOTE | 2018-10-24 18:31 | Emergency Department Note ---
Entered by Ayad Espinosa acting as a scribe for Venkat Cox MD History of Present Illness General Chief complaint: Shortness of Breath/Dyspnea Stated complaint: sob Time Seen by Provider: 10/24/18 14:40 Source: patient History of Present Illness Provider complaint: SOB Onset (ago): day(s) 4 Location: chest Pain Consistency: + constant Relieved By: + none Exacerbated By: + none Associated symptoms: + denies other symptoms and + cough (with blood) The patient is a 67 y/o female with a history of acute hypercapnic respiratory failure and hyperglycemia, who presents to the emergency department for evaluation of constant shortness of breath beginning 4 days ago. The patient notes that she is at her normal shortness of breath on 4 liters O2. The patients states that she was having issues breathing causing her to roll around. The patient reports that she has been coughing up what was originally mucous but has become bloody. She has a doctor at home who referred her to come to the ED. She denies diarrhea and any other symptoms. Home Medications Home Medications Medication Instructions Recorded Confirmed Type Calmoseptine 1 applic TOPICAL QID PRN 10/25/17 10/24/18 History Novolin R Regular U-100 Insuln 30 unit SUBCUT . Q LUNCH 10/25/17 10/24/18 History Novolin R Regular U-100 Insuln 60 unit SUBCUT QAM 10/25/17 10/24/18 History Spiriva with HandiHaler 1 cap INHALATION DAILY PRN 10/25/17 10/24/18 History Tresiba FlexTouch U-200 65 unit SUBCUT .AM & LUNCH 10/25/17 10/24/18 History albuterol sulfate 2.5 mg INHALATION QID PRN 10/25/17 10/24/18 History albuterol sulfate [Ventolin HFA] 2 puff INHALATION QID PRN 10/25/17 10/24/18 History aspirin 81 mg PO DAILY 10/25/17 10/24/18 History celecoxib [Celebrex] 200 mg PO DAILY 10/25/17 10/24/18 History duloxetine [Cymbalta] 30 mg PO BID 10/25/17 10/24/18 History fluticasone propionate [Flonase 2 spray INTRANASAL BID 10/25/17 10/24/18 History Allergy Relief] furosemide [Lasix] 40 mg PO DAILY PRN 10/25/17 10/24/18 History levothyroxine 100 mcg PO DAILY 10/25/17 10/24/18 History melatonin 10 mg PO HS 10/25/17 10/24/18 History metformin 500 mg PO QID 10/25/17 10/24/18 History metoprolol succinate 25 mg PO DAILY 10/25/17 10/24/18 History montelukast [Singulair] 10 mg PO PM 10/25/17 10/24/18 History nystatin 1 applic TOPICAL TID 10/25/17 10/24/18 History ondansetron [Zofran ODT] 4 mg PO QID PRN 10/25/17 10/24/18 History pantoprazole 40 mg PO DAILY 10/25/17 10/24/18 History polyethylene glycol 3350 [Miralax] 17 g PO DAILY PRN 10/25/17 10/24/18 History potassium chloride 20 meq PO DAILY PRN 10/25/17 10/24/18 History pregabalin [Lyrica] 200 mg PO TID 10/25/17 10/24/18 History simvastatin [Zocor] 20 mg PO HS 10/25/17 10/24/18 History sumatriptan succinate [Imitrex] 100 mg PO UD 10/25/17 10/24/18 History ursodiol 600 mg PO BID 10/25/17 10/24/18 History baclofen 5 mg PO HS 10/24/18 10/24/18 History fluticasone furoate [Arnuity 1 inh INHALATION DAILY 10/24/18 10/24/18 History Ellipta] insulin regular human [Novolin R 40 unit SUBCUT .Q EVENING MEAL 10/24/18 10/24/18 History Regular U-100 Insuln] mirtazapine 45 mg PO HS 10/24/18 10/24/18 History Allergies Allergy/AdvReac Type Severity Reaction Status Date / Time fluoxetine Allergy Severe ANAPHYLAXIS Verified 10/24/18 15:39 Insulins Allergy Severe LANTUS/LEVEMIR- Verified 10/24/18 15:39 HIVES/THROAT SWELLING moxifloxacin Allergy Severe HIVES Verified 10/24/18 15:39 nitrofurantoin Allergy Severe HIVES Verified 10/24/18 15:39 paroxetine Allergy Severe HIVES Verified 10/24/18 15:39 Quinolones Allergy Severe AVELOX & Verified 10/24/18 15:39 LEVAQUIN-HIVES amitriptyline Allergy Intermediate Sweats and Verified 10/24/18 15:39 itching buspirone Allergy Intermediate HIVES Verified 10/24/18 15:39 cephalexin Allergy Intermediate Hives Verified 10/24/18 15:39 citalopram Allergy Intermediate HIVES-RASH Verified 10/24/18 15:39 escitalopram Allergy Intermediate HIVES-RASH Verified 10/24/18 15:40 levofloxacin Allergy Intermediate Hives Verified 10/24/18 15:40 methadone Allergy Intermediate HIVES Verified 10/24/18 15:40 Penicillins Allergy Intermediate RASH,HIVES Verified 10/24/18 15:40 Serotonin 5HT-3 Antagonists Allergy Intermediate MIGRAINES Verified 10/24/18 15:40 TO SSRIs trazodone Allergy Intermediate BLOODY Verified 10/24/18 15:40 NOSE, HEADACHES,HIVES vancomycin Allergy Intermediate HIVES Verified 10/24/18 15:40 prednisone Allergy Mild CHEST Verified 10/24/18 15:40 TIGHTNESS carbamazepine Allergy Unknown HIVES-RASH- Verified 10/24/18 15:40 ITCHINESS cefepime Allergy Unknown face & arm Verified 10/24/18 15:40 redness/itching after 2nd or 3rd dose cefepime ceftriaxone Allergy Unknown Received Verified 10/24/18 15:40 in MTU (but needed benadryl for course of therapy Cipro Allergy Unknown ABD PAINS Verified 09/08/17 09:10 ciprofloxacin Allergy Unknown ABD PAINS Verified 10/24/18 15:40 mivacurium Allergy Unknown HIVES Verified 10/24/18 15:40 sertraline Allergy Unknown UNKNOWN Verified 10/24/18 15:40 sitagliptin Allergy Unknown HIVES Verified 10/24/18 15:40 Cephalosporins Allergy Hives Verified 10/24/18 15:40 Tetracyclines AdvReac Severe HIVES Verified 10/24/18 15:40 Sulfa (Sulfonamide AdvReac Intermediate MIGRAINES Verified 10/24/18 15:40 Antibiotics) fexofenadine AdvReac Mild GI SYMPTOMS Verified 10/24/18 15:40 tizanidine AdvReac Mild ITCHING-HIV Verified 10/24/18 15:40 ES gentamicin AdvReac Unknown UNKNOWN Verified 10/24/18 15:40 lorazepam AdvReac Unknown Verified 10/24/18 15:40 Past Med/Surg History Medical History Anemia (Chronic) JOSE (obstructive sleep apnea) (Chronic) Neuropathy (Chronic) HLD (hyperlipidemia) (Chronic) Morbid obesity (Chronic) COPD (chronic obstructive pulmonary disease) (Chronic) Recurrent UTI (Chronic) Obesity hypoventilation syndrome (Chronic) Hypothyroidism (Chronic) Hypertrophic cardiomyopathy (Chronic) Hypertension (Chronic) Dyslipidemia (Chronic) Diabetes mellitus, type II (Chronic) Chronic pain disorder (Chronic 01/24/14) Chronic hypercapnic respiratory failure (Chronic) Cerebrovascular disease (Chronic) "history left thalamic stroke" CVA (cerebral vascular accident) hx of L thalamus CVA A-fib Hypertension (Chronic) Surgical History Status post tonsillectomy (Chronic) History of tonsillectomy (Chronic) Hx of nasal septoplasty (Chronic) S/P dilatation and curettage (Chronic) H/O partial nephrectomy (Chronic) Family History Father Coronary heart disease Mother Diabetes Social History Preferred Language: Dominican Communication Ability: Effective 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 and A total of 10 systems reviewed and were otherwise negative Physical Exam Vital Signs Vital Signs - 24 hr 10/24/18 14:46 10/24/18 14:59 10/24/18 15:00 Temperature Temperature Source Sepsis Recent Fever Within 48 Hours Sepsis Action Taken by Nursing Pulse Rate 109 H 109 H 109 H Pulse Rate [Right Apical] Pulse Rate from SpO2 Sensor 102 H 110 H 108 H Respiratory Rate 34 H 34 H 24 Respiratory Effort / Characteristics Respiratory Depth Respiratory Pattern Blood Pressure 160/74 H Blood Pressure Mean 102 Pulse Oximetry 91 92 91 Oxygen Delivery Method Oxygen Flow Rate 10/24/18 15:05 10/24/18 15:10 10/24/18 15:20 Temperature 37.1 C Temperature Source Oral Sepsis Recent Fever Within 48 Hours No Sepsis Action Taken by Nursing No Action Required Pulse Rate 111 H 109 H 110 H Pulse Rate [Right Apical] Pulse Rate from SpO2 Sensor 109 H 110 H Respiratory Rate 30 H 34 H 29 H Respiratory Effort / Characteristics Respiratory Depth Shallow Respiratory Pattern Tachypnea Blood Pressure 160/74 H Blood Pressure Mean 102 Pulse Oximetry 91 91 92 Oxygen Delivery Method Nasal Cannula Oxygen Flow Rate 4 10/24/18 15:26 10/24/18 15:30 10/24/18 15:40 Temperature Temperature Source Sepsis Recent Fever Within 48 Hours Sepsis Action Taken by Nursing Pulse Rate 108 H 110 H Pulse Rate [Right Apical] 104 H Pulse Rate from SpO2 Sensor 99 H 112 H Respiratory Rate 20 20 24 Respiratory Effort / Characteristics Non-Labored Spontaneous Respiratory Depth Respiratory Pattern Blood Pressure Blood Pressure Mean Pulse Oximetry 93 98 92 Oxygen Delivery Method Nasal Cannula Oxygen Flow Rate 4 10/24/18 15:50 10/24/18 16:00 10/24/18 16:10 Temperature Temperature Source Sepsis Recent Fever Within 48 Hours Sepsis Action Taken by Nursing Pulse Rate 109 H 108 H 110 H Pulse Rate [Right Apical] Pulse Rate from SpO2 Sensor 105 H 109 H Respiratory Rate 30 H 23 22 Respiratory Effort / Characteristics Respiratory Depth Respiratory Pattern Blood Pressure Blood Pressure Mean Pulse Oximetry 93 93 Oxygen Delivery Method Oxygen Flow Rate 10/24/18 16:20 10/24/18 16:30 10/24/18 16:40 Temperature Temperature Source Sepsis Recent Fever Within 48 Hours Sepsis Action Taken by Nursing Pulse Rate 108 H 112 H 110 H Pulse Rate [Right Apical] Pulse Rate from SpO2 Sensor 109 H 107 H 110 H Respiratory Rate 31 H 27 H 34 H Respiratory Effort / Characteristics Respiratory Depth Respiratory Pattern Blood Pressure 163/62 H Blood Pressure Mean 95 Pulse Oximetry 93 92 92 Oxygen Delivery Method Oxygen Flow Rate 10/24/18 16:45 10/24/18 16:50 10/24/18 17:00 Temperature Temperature Source Sepsis Recent Fever Within 48 Hours Sepsis Action Taken by Nursing Pulse Rate 109 H 106 H 105 H Pulse Rate [Right Apical] Pulse Rate from SpO2 Sensor 104 H 108 H 107 H Respiratory Rate 30 H 26 H 31 H Respiratory Effort / Characteristics Respiratory Depth Respiratory Pattern Blood Pressure 163/62 H Blood Pressure Mean 95 Pulse Oximetry 93 93 91 Oxygen Delivery Method Oxygen Flow Rate 10/24/18 17:02 10/24/18 17:10 10/24/18 17:27 Temperature Temperature Source Sepsis Recent Fever Within 48 Hours Sepsis Action Taken by Nursing Pulse Rate 108 H 105 H Pulse Rate [Right Apical] Pulse Rate from SpO2 Sensor 108 H 106 H 104 H Respiratory Rate 30 H 25 H Respiratory Effort / Characteristics Respiratory Depth Respiratory Pattern Blood Pressure 159/69 H Blood Pressure Mean 99 Pulse Oximetry 91 93 91 Oxygen Delivery Method Oxygen Flow Rate 10/24/18 17:30 10/24/18 17:31 10/24/18 17:40 Temperature Temperature Source Sepsis Recent Fever Within 48 Hours Sepsis Action Taken by Nursing Pulse Rate 104 H 107 H 105 H Pulse Rate [Right Apical] Pulse Rate from SpO2 Sensor 101 H 108 H 104 H Respiratory Rate 27 H 31 H 24 Respiratory Effort / Characteristics Respiratory Depth Respiratory Pattern Blood Pressure 151/59 H Blood Pressure Mean 89 Pulse Oximetry 91 93 92 Oxygen Delivery Method Oxygen Flow Rate 10/24/18 17:50 10/24/18 18:00 10/24/18 18:01 Temperature Temperature Source Sepsis Recent Fever Within 48 Hours Sepsis Action Taken by Nursing Pulse Rate 98 H 105 H 105 H Pulse Rate [Right Apical] Pulse Rate from SpO2 Sensor 98 H 101 H 101 H Respiratory Rate 24 25 H 31 H Respiratory Effort / Characteristics Respiratory Depth Respiratory Pattern Blood Pressure 159/55 H Blood Pressure Mean 89 Pulse Oximetry 92 92 94 Oxygen Delivery Method Nasal Cannula Oxygen Flow Rate 4 10/24/18 18:10 10/24/18 18:20 10/24/18 18:30 Temperature Temperature Source Sepsis Recent Fever Within 48 Hours Sepsis Action Taken by Nursing Pulse Rate 104 H 103 H 101 H Pulse Rate [Right Apical] Pulse Rate from SpO2 Sensor 103 H 94 H 101 H Respiratory Rate 22 27 H 25 H Respiratory Effort / Characteristics Respiratory Depth Respiratory Pattern Blood Pressure Blood Pressure Mean Pulse Oximetry 93 94 93 Oxygen Delivery Method Oxygen Flow Rate 10/24/18 18:32 10/24/18 18:40 10/24/18 18:50 Temperature Temperature Source Sepsis Recent Fever Within 48 Hours Sepsis Action Taken by Nursing Pulse Rate 101 H 100 H 100 H Pulse Rate [Right Apical] Pulse Rate from SpO2 Sensor 99 H 99 H 100 H Respiratory Rate 32 H 24 24 Respiratory Effort / Characteristics Respiratory Depth Respiratory Pattern Blood Pressure 154/47 H Blood Pressure Mean 82 Pulse Oximetry 95 93 93 Oxygen Delivery Method Oxygen Flow Rate 10/24/18 19:00 10/24/18 19:01 10/24/18 19:10 Temperature Temperature Source Sepsis Recent Fever Within 48 Hours Sepsis Action Taken by Nursing Pulse Rate 98 H 100 H 98 H Pulse Rate [Right Apical] Pulse Rate from SpO2 Sensor 97 H 100 H 98 H Respiratory Rate 25 H 33 H 36 H Respiratory Effort / Characteristics Respiratory Depth Respiratory Pattern Blood Pressure 163/54 H Blood Pressure Mean 90 Pulse Oximetry 91 95 93 Oxygen Delivery Method Oxygen Flow Rate 10/24/18 19:20 Temperature Temperature Source Sepsis Recent Fever Within 48 Hours Sepsis Action Taken by Nursing Pulse Rate 98 H Pulse Rate [Right Apical] Pulse Rate from SpO2 Sensor 98 H Respiratory Rate 26 H Respiratory Effort / Characteristics Respiratory Depth Respiratory Pattern Blood Pressure Blood Pressure Mean Pulse Oximetry 93 Oxygen Delivery Method Oxygen Flow Rate GENERAL: Awake, alert, Chronically ill appearing, in no distress, Morbidly obese HENT: Normocephalic, atraumatic. Oropharynx with dry mucous membranes and otherwise unremarkable. EYES: Normal conjunctiva. Sclera non-icteric. NECK: Supple. No nuchal rigidity. FROM. No JVD. RESPIRATORY: Diminished breath sounds at base with intermittent wheeze, otherwise clear. CARDIAC: Regular rate, normal rhythm. Extremities warm and well perfused. Pulses equal. ABDOMEN: Soft, non-distended. No tenderness to palpation. No rebound or guarding. No masses. RECTAL: Deferred. MUSCULOSKELETAL: Chest examination reveals no tenderness. The back is symmetrical on inspection without obvious abnormality. There is no CVA tenderness to palpation. No joint edema. LOWER EXTREMITIES: Calves are equal size bilaterally and non-tender. Scant edema. No discoloration. NEURO: Normal sensorium. No sensory or motor deficits noted. SKIN: No rash or jaundice noted. Course 1500: Past medical records reviewed. The patient was evaluated in room A10. A complete history and physical exam was performed. 7: Case was discussed with Irene Katz, who evaluate the patient for admission. Administered Medications Baclofen (Lioresal) 5 mg PO HS WALDO Stop: 11/23/18 21:18 Last Admin: 10/24/18 22:52 Dose: 5 mg Documented by: [id number] Duloxetine HCl (Cymbalta) 30 mg PO BID WALDO Stop: 11/23/18 21:18 Last Admin: 10/24/18 23:58 Dose: 30 mg Documented by: [id number] Fluticasone Propionate (Flonase) 2 sprays NA BID WALDO Stop: 11/23/18 21:18 Last Admin: 10/24/18 22:52 Dose: Not Given Documented by: [id number] Mirtazapine (Remeron Solutab) 45 mg PO HS WALDO Stop: 11/23/18 21:18 Last Admin: 10/24/18 22:52 Dose: 45 mg Documented by: [id number] Montelukast Sodium (Singulair) 10 mg PO PM WALDO Stop: 11/23/18 21:18 Last Admin: 10/24/18 22:53 Dose: 10 mg Documented by: [id number] Nystatin (Mycostatin) 1 appln EXT TID WALDO Stop: 11/23/18 21:18 Last Admin: 10/24/18 22:52 Dose: 1 appln Documented by: [id number] Pregabalin (Lyrica) 200 mg PO TID WALDO Stop: 11/23/18 21:18 Last Admin: 10/24/18 22:51 Dose: 200 mg Documented by: [id number] Simvastatin (Zocor) 20 mg PO HS WALDO Stop: 11/23/18 21:18 Last Admin: 10/24/18 22:53 Dose: 20 mg Documented by: [id number] Ursodiol (Actigall) 600 mg PO BID WALDO Stop: 11/23/18 21:18 Last Admin: 10/24/18 22:53 Dose: 600 mg Documented by: [id number] Discontinued Medications Albuterol (Duoneb) 3 ml NEB NOW STA Stop: 10/24/18 15:19 Last Admin: 10/24/18 15:24 Dose: 3 ml Documented by: [id number] Diphenhydramine HCl (Benadryl) 25 mg IV NOW STA Stop: 10/24/18 18:16 Last Admin: 10/24/18 18:50 Dose: 25 mg Documented by: [id number] Ceftriaxone Sodium (Rocephin) 2,000 mg in 70 mls @ 140 mls/hr IV NOW STA Stop: 10/24/18 18:41 Last Infusion: 10/24/18 19:34 Dose: 0 mls/hr Documented by: [id number] Admin: 10/24/18 18:50 Dose: 140 mls/hr Documented by: [id number] Azithromycin 500 mg/ Dextrose 255 mls @ 127.5 mls/hr IV NOW STA Stop: 10/24/18 20:14 Last Infusion: 10/24/18 23:16 Dose: 0 mls/hr Documented by: [id number] Admin: 10/24/18 19:20 Dose: 127.5 mls/hr Documented by: [id number] Insulin Human NPH (Novolin N Nph) 50 units SC NOW STA Stop: 10/24/18 22:01 Last Admin: 10/24/18 23:58 Dose: 50 units Documented by: [id number] Cosigned by: [id number] Ioversol (Optiray 320 125ml) 120 ml IV ONCE PRN PRN Reason: Interaction Checking Stop: 10/28/18 17:20 Last Admin: 10/24/18 17:21 Dose: 120 ml Documented by: [id number] Methylprednisolone (Solumedrol) 125 mg IV NOW STA Stop: 10/24/18 18:13 Last Admin: 10/24/18 18:50 Dose: 125 mg Documented by: [id number] Medical Decision Making Differential Diagnosis Differential diagnosis: Etiologies such as infections, reactive airway disease, COPD, pneumonia, pleural effusion, pulmonary edema, ARDS, pneumothorax, CHF, cardiac ischemia, cardiac tamponade, dysrhythmia, anemia, pulmonary embolism, musculoskeletal, gastrointestinal process, as well as others were entertained. Medical Records Attestation: I reviewed the patient's medical records. Home Medications Current Medication List: was personally reviewed by me Laboratory Data Attestation: I reviewed the patient's lab results. Result diagrams: 10/24/18 15:59 10/24/18 15:59 Lab Results 10/24/18 10/24/18 10/24/18 Range/Units 15:59 15:59 15:59 WBC 6.69 (4.8-10.8) K/uL RBC 3.78 L (4.2-5.4) M/uL Hgb 7.5 L (12.0-16.0) g/dL Hct 29.0 L (37-47) % MCV 76.7 L (80-100) fL MCH 19.8 L (25-34) pg MCHC 25.9 L (32-36) g/dL RDW Std Deviation 55.2 H (36.4-46.3) fL RDW Coeff of Duy 20.3 H (11.5-14.5) % Plt Count 129 L (130-400) K/uL Immature Gran % (Auto) 2.1 % Neut % (Auto) 78.3 % Lymph % (Auto) 11.7 % [place] % (Auto) 7.5 % Eos % (Auto) 0.1 % Baso % (Auto) 0.3 % Immature Gran # (Auto) 0.14 H (0.00-0.02) K/uL Neut # (Auto) 5.24 (1.4-6.5) K/uL Lymph # (Auto) 0.78 L (1.2-3.4) K/uL [place] # (Auto) 0.50 (0.11-0.59) K/uL Eos # (Auto) 0.01 (0-0.5) K/uL Baso # (Auto) 0.02 (0-0.2) K/uL Platelet Estimate Normal (Normal) Polychromasia 1+ Hypochromasia Present PT 10.5 (9.0-12.0) Seconds INR 1.0 (0.9-1.1) VBG pH (7.36-7.41) VBG pCO2 (38-50) mmHg VBG pO2 mmHg VBG HCO3 mmol/L VBG O2 Saturation % VBG Base Excess mEq/L Barometric Pressure mm/Hg Sodium 142 (136-145) mmol/L Potassium 4.1 (3.5-5.1) mmol/L Chloride 100 (98-107) mmol/L Carbon Dioxide 40 H (21-32) mmol/L Anion Gap 2.0 L (3-11) BUN 18 (7-18) mg/dl Creatinine 0.83 (0.6-1.2) mg/dl Est Cr Clr Drug Dosing 101.0 ml/min Est GFR ( Amer) 84.0 Est GFR (Non-Af Amer) 72.5 BUN/Creatinine Ratio 22.0 H (10-20) Glucose 387 H* (70-99) mg/dl Calcium 8.7 (8.5-10.1) mg/dl Phosphorus 2.8 (2.5-4.9) mg/dl Magnesium 2.2 (1.8-2.4) mg/dl Total Bilirubin 0.3 (0.2-1) mg/dl AST 8 L (15-37) U/L ALT 14 (12-78) U/L Alkaline Phosphatase 101 (45-117) U/L Troponin I < 0.015 (0-0.045) ng/ml NT-Pro-B Natriuret Pep 694 (0-900) pg/ml Total Protein 6.7 (6.4-8.2) gm/dl Albumin 2.9 L (3.4-5.0) gm/dl Globulin 3.8 (2.5-4.0) gm/dl Albumin/Globulin Ratio 0.8 L (0.9-2) Lipase 70 L (73-393) U/L Beta-Hydroxybutyric Acd 1.13 (0.2-2.81) mg/dl Blood Type Antibody Screen 10/24/18 10/24/18 Range/Units 15:59 19:12 WBC (4.8-10.8) K/uL RBC (4.2-5.4) M/uL Hgb (12.0-16.0) g/dL Hct (37-47) % MCV (80-100) fL MCH (25-34) pg MCHC (32-36) g/dL RDW Std Deviation (36.4-46.3) fL RDW Coeff of Duy (11.5-14.5) % Plt Count (130-400) K/uL Immature Gran % (Auto) % Neut % (Auto) % Lymph % (Auto) % [place] % (Auto) % Eos % (Auto) % Baso % (Auto) % Immature Gran # (Auto) (0.00-0.02) K/uL Neut # (Auto) (1.4-6.5) K/uL Lymph # (Auto) (1.2-3.4) K/uL [place] # (Auto) (0.11-0.59) K/uL Eos # (Auto) (0-0.5) K/uL Baso # (Auto) (0-0.2) K/uL Platelet Estimate (Normal) Polychromasia Hypochromasia PT (9.0-12.0) Seconds INR (0.9-1.1) VBG pH 7.35 L (7.36-7.41) VBG pCO2 74 H (38-50) mmHg VBG pO2 51 mmHg VBG HCO3 40 mmol/L VBG O2 Saturation 81.4 % VBG Base Excess 12.2 mEq/L Barometric Pressure 737.9 mm/Hg Sodium (136-145) mmol/L Potassium (3.5-5.1) mmol/L Chloride (98-107) mmol/L Carbon Dioxide (21-32) mmol/L Anion Gap (3-11) BUN (7-18) mg/dl Creatinine (0.6-1.2) mg/dl Est Cr Clr Drug Dosing ml/min Est GFR ( Amer) Est GFR (Non-Af Amer) BUN/Creatinine Ratio (10-20) Glucose (70-99) mg/dl Calcium (8.5-10.1) mg/dl Phosphorus (2.5-4.9) mg/dl Magnesium (1.8-2.4) mg/dl Total Bilirubin (0.2-1) mg/dl AST (15-37) U/L ALT (12-78) U/L Alkaline Phosphatase (45-117) U/L Troponin I (0-0.045) ng/ml NT-Pro-B Natriuret Pep (0-900) pg/ml Total Protein (6.4-8.2) gm/dl Albumin (3.4-5.0) gm/dl Globulin (2.5-4.0) gm/dl Albumin/Globulin Ratio (0.9-2) Lipase (73-393) U/L Beta-Hydroxybutyric Acd (0.2-2.81) mg/dl Blood Type O Positive Antibody Screen NEGATIVE Imaging Data Radiologist's Impression: Radiology results as stated below per my review and the radiologist's interpretation: XR chest 1V portable CLINICAL HISTORY: Chest Pain dyspnea COMPARISON STUDY: 12/16/2017 FINDINGS: Mild increase in cardiac size compared to the prior exam. Moderate increase in pulmonary vasculature. Mild atelectatic and/or infiltrative changes left base unaltered from the prior study. IMPRESSION: Developing congestive heart failure. CT ANGIOGRAM OF THE CHEST CLINICAL HISTORY: Atypical chest pain COMPARISON STUDY: 02/01/2016, chest x-ray dated 10/24/2018 TECHNIQUE: Following the IV administration of 120 mL of Optiray-320, CT angiogram of the thorax was performed from the thoracic inlet to the lung bases utilizing the pulmonary embolus protocol. Images are reviewed in the axial, sagittal, and coronal planes. IV contrast was administered without complication. MIP imaging was performed. A dose lowering technique was utilized adhering to the principles of ALARA. CT DOSE: FINDINGS: There is a borderline enlarged pretracheal lymph node, similar to the prior stacey dy. There is no pathologic hilar or axillary lymphadenopathy. There was no evidence of thoracic aortic dilatation. Pulmonary to opacification is somewhat suboptimal in part due to the patient's large body habitus. There are no pulmonary artery filling defects to indicate acute pulmonary embolism. No pleural effusions are visualized. There is bilateral dependent lower lobe atelectasis/consolidation. There are low lung volumes. There is elevation left hemidiaphragm. There is splenomegaly. IMPRESSION: 1. Marked splenomegaly 2. Elevation of the left hemidiaphragm 3. No evidence of acute pulmonary embolism 3. Bilateral lower lobe airspace opacities, atelectatic versus infectious/inflammatory Electronically signed by: Yvon Hermosillo M.D. 10/24/2018 5:[address] abd pelvis IV con only CLINICAL HISTORY: anemia, abdominal pain COMPARISON STUDY: 10/25/2017 TECHNIQUE: The patient was scanned in a dynamic helical fashion during intravenous administration of 120 cc of Optiray 320. A dose lowering technique was utilized adhering to the principles of ALARA. CT DOSE: 2814.86 mGy.cm FINDINGS: Lower chest: There is elevation left hemidiaphragm. There is bibasilar ate lectasis/consolidation. Liver: The contrast-enhanced liver is normal in size, contour, and attenuation. There is no intrahepatic biliary ductal dilatation. The hepatic veins and portal veins are patent. Gallbladder: Unremarkable. Spleen: The spleen is enlarged measuring approximately 20 cm. Pancreas: Unremarkable. Adrenal glands: There is a 22 mm left adrenal nodule slightly larger than on the preceding study. There is a new 11 mm right adrenal gland nodule. Kidneys: There is right-sided nephrolithiasis. There is a 22 mm left renal cyst. Bowel: Due to the patient's large body habitus, portions the left colon are nonvisualized. There are no transition zones to indicate bowel obstruction. There is no evidence of acute diverticulitis. There are no findings to indicate acute appendicitis. There is a suspected 2 cm polypoid lesion within the transverse colon. This is increased in size when compared the prior study. Peritoneum: There is no intraperitoneal free air or abdominal ascites. Vasculature: The abdominal aorta is normal in course and caliber. Adenopathy: None. Pelvic viscera: There is a 6.6 cm exophytic uterine fibroid. Skeletal structures: There is a superior endplate L2 compression fracture which was not present on the prior study. IMPRESSION: 1. Technically limited study secondary to the patient's large body habitus. 2. No evidence of bowel obstruction. No evidence of free air 3. Increasing moderate splenomegaly (20 cm) 4. Right-sided nephrolithiasis. No hydronephrosis. No ureteral calculi identified 5. Enlarging 22 mm left adrenal nodule, and new 11 mm right adrenal nodule 6. 6.6 cm exophytic uterine fibroid 7. Superior endplate L2 vertebral body fracture, finding not present on the preceding October 2017 study 8. Bilateral lower lobe atelectasis/consolidation 9. Suspected enlarging 2 cm polypoid lesion of the transverse colon. Endoscopic correlation is recommended if not previously performed. Electronically signed by: Yvon Hermosillo M.D. 10/24/2018 5:41 PM Dictated: 10/24/181732 Transcribed: 10/24/181732 The above report was generated using voice recognition software. It may contain grammatical, syntax or spelling errors. Electronically signed by: Blayne Harmon M.D. 10/24/2018 3:32 PM ECG Data Attestation: I personally reviewed and interpreted this ECG as follows: Indication: SOB/dyspnea Rate (beats per minute): 111 Rhythm: sinus tachycardia Findings: + nonspecific-ST abn; no ST elevation and no acute ischemic change MDM Narrative The patient is a pleasant 67-year-old woman with a comp gated past medical history of morbid obesity, JOSE, COPD on 4L NC at baseline, who presents emergency department with worsening cough and shortness of breath with recurrent episodes of hemoptysis per her report evaluated by her home [facility] medical team and referred to emergency department per hpi. On arrival the patient is chronically ill-appearing but no acute distress, afebrile with stable vital signs. She is on her baseline 4 L nasal cannula. She has diminished breath sounds at the bases with scant intermittent wheezes. EKG without overt acute ischemia. Chest x-ray is with question of developing congestive failure. However CT of the chest demonstrates bibasilar opacities that appear more consistent with pneumonia. No evidence of PE at this time. CT abdomen pelvis demonstrates no acute process though possible colonic lesion that will require further evaluation in the future. WBC within normal limits. Hemoglobin 7.5 which is decreased from 9 within the [facility] system approximately a year ago. Chemistry without acidosis. VBG with pH of 7.35 and CO2 of 70 which is likely chronic given her bicarb elevation of 40. LFTs unremarkable. Troponin negative. BNP within normal limits. She was feel improved after DuoNeb. Symptoms likely related to bronchopneumonia given her report of hemoptysis. Reasonable to admit for further management including trending her H&H given her report of hemoptysis. She denies any bloody or black stools so GI source of anemia is less likely. Patient has extensive allergies. Ordered for solumedrol for COPD component as well as Ceftriaxone with benadryl as patient tolerated in the past and Azithromycin. Case was [facility] with [facility], who evaluate the patient for admission. Impression & Plan Pneumonia, Chronic hypercapnic respiratory failure, Anemia Discharge Plan Visit Data *Final* Discharge Date/Time: 10/24/18 20:24 Chief Complaint: Shortness of Breath/Dyspnea Stated Complaint: sob ED Provider: Venkat Cox Discharge Problem: Pneumonia, Chronic hypercapnic respiratory failure, Anemia Patient Disposition: Admitted As Inpatient Discharge Instructions Interventions: ED Discharge Assessment Last Done: 10/24/18 20:24 The scribe's documentation has been prepared under my direction and personally reviewed by me in its entirety. I confirm that the note above accurately reflects all work, treatment, procedures, and medical decision making performed by me.
--- NOTE | 2018-10-24 19:52 | History & Physical Report ---
Date of Service October 24, 2018 Assessment & Plan (1) Hemoptysis: (2) Chronic hypercapnic respiratory failure: (3) Pneumonia: This is a 67-year-old female with significant PMH of chronic hypercapnic respiratory failure on 4L of O2 and home ventilator at , obesity hypoventilation syndrome, COPD, IDDM 2 with polyneuropathy, JOSE, diastolic CHF, history of paroxysmal SVT, history of left thalamic CVA without residual deficit, HTN, HLD, GERD, chronic pain, morbid obesity who presents to [facility] secondary to hemoptysis x1 week. Findings concerning for bibasilar pneumonitis Pt does not meet SIRS/Sepsis criteria per current CMS guidelines In ED received IV azithromycin and rocephin pre treated with benadryl Further received albuterol neb tx and IV methylprednisolone admit to PCU continue IV azithromycin and rocephin, Pre-treat with benadryl prior to rocephin administration aggressive pulmonary toilet with nebulizer, flutter valve and incentive spirometry obtain sputum culture Pt follows with [facility] pulmonary Dr. Bennett, low threshold to consult if no imp rovement Will hold of on additional steroid for now given hyperglycemia, monitor response aspiration precautions; speech therapy consult (4) JOSE (obstructive sleep apnea): Pt to bring in home NIV machine has trialed numerous CPAP/BIPAP at home and has been having success with NIV Recommend bringing in device for use will alert respiratory (5) Obesity hypoventilation syndrome: With chronic hypercapnic respiratory failure (6) COPD (chronic obstructive pulmonary disease): No acute exacerbation at this time Continue inhaled cortical steroid, Spiriva, routine neb treatment Aggressive pulmonary toilet with flutter valve, incentive spirometry (7) Anemia: CBC reveals microcytic hypochromic anemia Patient with history of chronic anemia Baseline H&H appears to be around 10 Patient has had a gradual decline over the past year, last hemoglobin 12/19/2017 was 9.8 will order anemia work-up for a.m, FOBT CT scan of abdomen pelvis concerning for 2 similar polypoid lesion in transverse colon, this will need to be evaluated as outpatient (8) Hypertension: Blood pressure elevated in ED Patient only on metoprolol at home, continue Will need to monitor and treat accordingly (9) Diabetes mellitus, type II: Last A1c 6.8 Patient on Tresiba and Novolin at home, along with metformin Patient hyperglycemic in ED 387 will consult glycemic pharmacist for assistance in management, appreciate their input (10) HLD (hyperlipidemia): Continue statin (11) Neuropathy: continue lyrica (12) Hypothyroidism: Continue levothyroxine (13) Morbid obesity: BMI 50.5, encouraged lifestyle modification (14) Abnormal CT of the abdomen: concerning findings include: Enlarging 22 mm left adrenal nodule, and new 11 mm right adrenal nodule Superior endplate L2 vertebral body fracture, finding not present on the preceding October 2017 study Suspected enlarging 2 cm polypoid lesion of the transverse colon. Endoscopic correlation is recommended if not previously performed. Will need approp follow u as outpt (15) DVT prophylaxis: SCD/TEDS Disposition: to be determined, case management consulted, [facility] at home patient Follow up: PCP Dr. Verdugo upon discharge; along with appropriate follow-up with pulmonology, general surg vs GI given 2cm polyp lesion in transverse colon Patient was seen and examined in collaboration with Dr. Larose, please see addendum History of Present Illness Chief Complaint: hemopytsis x 1 week. Primary Care Provider: Bairon Owens MD This is a 67-year-old female with significant PMH of chronic hypercapnic respiratory failure on 4L of O2 and home ventilator at , obesity hypoventilation syndrome, COPD, IDDM 2 with polyneuropathy, JOSE, diastolic CHF, history of paroxysmal SVT, history of left thalamic CVA without residual deficit, HTN, HLD, GERD, chronic pain, morbid obesity who presents to [facility] secondary to hemoptysis x1 week. is at bedside. Patient has chronic productive cough usually purulent in nature, but over the past week has been more blood-tinged. Over the past 2 days she has been coughing up camila, half-dollar size blood clots. She notes approximately 1 month ago she had something similar and was treated with oral azithromycin and her symptoms improved. She also elicits to having increased shortness of breath and noticed that her oxygen levels were decreasing to 70s and 80s at home. Complains of left-sided chest heaviness, "elephant on my chest when she would get short of breath." She has no known sick contacts. Denies any documented fever, chills, lightheadedness, dizziness, syncope, diaphoresis, palpations, shortness of breath at rest, emesis, abdominal pain, diarrhea, melena, hematochezia, hematuria, increased urgency of urgency with urination. She is mostly incontinent of urine. Overall decreased appetite with off-and-on nausea. Patient does not ambulate and mobilizes via wheelchair/scooter. Patient follows Dr. Bennett and Johanna Emmanuel PA-C for pulmonology. Last seen 10/20/18. Recommends were as follows: "Continue non-invasive ventilator during all hours of sleep - Monthly vent checks by DME - Respiratory - Regular maintenance and cleaning of NIV and associated supplies - Cough and pulmonary clearance encouraged: Flutter valve daily - Continue Spiriva + Arnuity as prescribed - Influenza vaccination: Fall 2018" Allergies Allergy/AdvReac Type Severity Reaction Status Date / Time fluoxetine Allergy Severe ANAPHYLAXIS Verified 10/24/18 15:39 Insulins Allergy Severe LANTUS/LEVEMIR- Verified 10/24/18 15:39 HIVES/THROAT SWELLING moxifloxacin Allergy Severe HIVES Verified 10/24/18 15:39 nitrofurantoin Allergy Severe HIVES Verified 10/24/18 15:39 paroxetine Allergy Severe HIVES Verified 10/24/18 15:39 Quinolones Allergy Severe AVELOX & Verified 10/24/18 15:39 LEVAQUIN-HIVES amitriptyline Allergy Intermediate Sweats and Verified 10/24/18 15:39 itching buspirone Allergy Intermediate HIVES Verified 10/24/18 15:39 cephalexin Allergy Intermediate Hives Verified 10/24/18 15:39 citalopram Allergy Intermediate HIVES-RASH Verified 10/24/18 15:39 escitalopram Allergy Intermediate HIVES-RASH Verified 10/24/18 15:40 levofloxacin Allergy Intermediate Hives Verified 10/24/18 15:40 methadone Allergy Intermediate HIVES Verified 10/24/18 15:40 Penicillins Allergy Intermediate RASH,HIVES Verified 10/24/18 15:40 Serotonin 5HT-3 Antagonists Allergy Intermediate MIGRAINES Verified 10/24/18 15:40 TO SSRIs trazodone Allergy Intermediate BLOODY Verified 10/24/18 15:40 NOSE, HEADACHES,HIVES vancomycin Allergy Intermediate HIVES Verified 10/24/18 15:40 prednisone Allergy Mild CHEST Verified 10/24/18 15:40 TIGHTNESS carbamazepine Allergy Unknown HIVES-RASH- Verified 10/24/18 15:40 ITCHINESS cefepime Allergy Unknown face & arm Verified 10/24/18 15:40 redness/itching after 2nd or 3rd dose cefepime ceftriaxone Allergy Unknown Received Verified 10/24/18 15:40 in MTU (but needed benadryl for course of therapy Cipro Allergy Unknown ABD PAINS Verified 09/08/17 09:10 ciprofloxacin Allergy Unknown ABD PAINS Verified 10/24/18 15:40 mivacurium Allergy Unknown HIVES Verified 10/24/18 15:40 sertraline Allergy Unknown UNKNOWN Verified 10/24/18 15:40 sitagliptin Allergy Unknown HIVES Verified 10/24/18 15:40 Cephalosporins Allergy Hives Verified 10/24/18 15:40 Tetracyclines AdvReac Severe HIVES Verified 10/24/18 15:40 Sulfa (Sulfonamide AdvReac Intermediate MIGRAINES Verified 10/24/18 15:40 Antibiotics) fexofenadine AdvReac Mild GI SYMPTOMS Verified 10/24/18 15:40 tizanidine AdvReac Mild ITCHING-HIV Verified 10/24/18 15:40 ES gentamicin AdvReac Unknown UNKNOWN Verified 10/24/18 15:40 lorazepam AdvReac Unknown Verified 10/24/18 15:40 Home Medications Home Medications Medication Instructions Recorded Confirmed Type Calmoseptine 1 applic TOPICAL QID PRN 10/25/17 10/24/18 History Novolin R Regular U-100 Insuln 30 unit SUBCUT . Q LUNCH 10/25/17 10/24/18 History Novolin R Regular U-100 Insuln 60 unit SUBCUT QAM 10/25/17 10/24/18 History Spiriva with HandiHaler 1 cap INHALATION DAILY PRN 10/25/17 10/24/18 History Tresiba FlexTouch U-200 65 unit SUBCUT .AM & LUNCH 10/25/17 10/24/18 History albuterol sulfate 2.5 mg INHALATION QID PRN 10/25/17 10/24/18 History albuterol sulfate [Ventolin HFA] 2 puff INHALATION QID PRN 10/25/17 10/24/18 History aspirin 81 mg PO DAILY 10/25/17 10/24/18 History celecoxib [Celebrex] 200 mg PO DAILY 10/25/17 10/24/18 History duloxetine [Cymbalta] 30 mg PO BID 10/25/17 10/24/18 History fluticasone propionate [Flonase 2 spray INTRANASAL BID 10/25/17 10/24/18 History Allergy Relief] furosemide [Lasix] 40 mg PO DAILY PRN 10/25/17 10/24/18 History levothyroxine 100 mcg PO DAILY 10/25/17 10/24/18 History melatonin 10 mg PO HS 10/25/17 10/24/18 History metformin 500 mg PO QID 10/25/17 10/24/18 History metoprolol succinate 25 mg PO DAILY 10/25/17 10/24/18 History montelukast [Singulair] 10 mg PO PM 10/25/17 10/24/18 History nystatin 1 applic TOPICAL TID 10/25/17 10/24/18 History ondansetron [Zofran ODT] 4 mg PO QID PRN 10/25/17 10/24/18 History pantoprazole 40 mg PO DAILY 10/25/17 10/24/18 History polyethylene glycol 3350 [Miralax] 17 g PO DAILY PRN 10/25/17 10/24/18 History potassium chloride 20 meq PO DAILY PRN 10/25/17 10/24/18 History pregabalin [Lyrica] 200 mg PO TID 10/25/17 10/24/18 History simvastatin [Zocor] 20 mg PO HS 10/25/17 10/24/18 History sumatriptan succinate [Imitrex] 100 mg PO UD 10/25/17 10/24/18 History ursodiol 600 mg PO BID 10/25/17 10/24/18 History baclofen 5 mg PO HS 10/24/18 10/24/18 History fluticasone furoate [Arnuity 1 inh INHALATION DAILY 10/24/18 10/24/18 History Ellipta] insulin regular human [Novolin R 40 unit SUBCUT .Q EVENING MEAL 10/24/18 10/24/18 History Regular U-100 Insuln] mirtazapine 45 mg PO HS 10/24/18 10/24/18 History Past Med/Surg History Social History Preferred Language: Cypriot Communication Ability: Effective Glassie Required: No Beliefs That Will Affect Care: None marital status: Current Living Situation: Spouse Current Living Situation Comment: living at home with Other Information That Helps Us Care for You: No Feels Safe at Home: Yes Safety Concerns: Feels Safe At This Time Smoking Status: Never smoker Second Hand Exposure: No ; Hx Alcohol Use: No Hx Substance Use: No Review of Systems Review of Systems: All systems reviewed & are unremarkable except as noted in HPI & below Physical Exam Physical Exam: Please refer to Dr. Larose attestation for physical exam Results & Data Vital Signs (Past 12 Hours) Vital Signs Temp Pulse Pulse Resp BP Pulse Ox 10/24/18 19:01 100 H 33 H 163/54 H 95 10/24/18 19:00 98 H 25 H 91 10/24/18 18:50 100 H 24 93 10/24/18 18:40 100 H 24 93 10/24/18 18:32 101 H 32 H 154/47 H 95 10/24/18 18:30 101 H 25 H 93 10/24/18 18:20 103 H 27 H 94 10/24/18 18:10 104 H 22 93 10/24/18 18:01 105 H 31 H 159/55 H 94 10/24/18 18:00 105 H 25 H 10/24/18 17:50 98 H 24 92 10/24/18 17:40 105 H 24 10/24/18 17:31 107 H 31 H 151/59 H 93 10/24/18 17:30 104 H 27 H 91 10/24/18 17:27 91 10/24/18 17:10 105 H 25 H 93 10/24/18 17:02 108 H 30 H 159/69 H 91 10/24/18 17:00 105 H 31 H 91 10/24/18 16:50 106 H 26 H 93 10/24/18 16:45 109 H 30 H 163/62 H 10/24/18 16:40 110 H 34 H 163/62 H 92 10/24/18 16:30 112 H 27 H 92 10/24/18 16:20 108 H 31 H 93 10/24/18 16:10 110 H 22 93 10/24/18 16:00 108 H 23 93 10/24/18 15:50 109 H 30 H 10/24/18 15:40 110 H 24 92 10/24/18 15:30 108 H 20 98 10/24/18 15:26 104 H 20 93 10/24/18 15:20 110 H 29 H 92 10/24/18 15:10 109 H 34 H 91 10/24/18 15:05 37.1 C 111 H 30 H 160/74 H 91 10/24/18 15:00 109 H 24 91 10/24/18 14:59 109 H 34 H 92 10/24/18 14:46 109 H 34 H 160/74 H 91 Laboratory Results Short CBC 10/24/18 10/24/18 10/24/18 Range/Units 15:59 15:59 15:59 WBC 6.69 (4.8-10.8) K/uL Hgb 7.5 L (12.0-16.0) g/dL Hct 29.0 L (37-47) % Plt Count 129 L (130-400) K/uL VBG pCO2 74 H (38-50) mmHg ALT 14 (12-78) U/L BMP 10/24/18 15:59 Sodium 142 Potassium 4.1 Chloride 100 Carbon Dioxide 40 H BUN 18 Creatinine 0.83 Glucose 387 H* Calcium 8.7 Cardiac Enzymes 10/24/18 Range/Units 15:59 Troponin I < 0.015 (0-0.045) ng/ml Liver Function 10/24/18 Range/Units 15:59 Total Bilirubin 0.3 (0.2-1) mg/dl AST 8 L (15-37) U/L ALT 14 (12-78) U/L Alkaline Phosphatase 101 (45-117) U/L Albumin 2.9 L (3.4-5.0) gm/dl Diagnostic Findings abd/pelvis CT: IMPRESSION: 1. Technically limited study secondary to the patient's large body habitus. 2. No evidence of bowel obstruction. No evidence of free air 3. Increasing moderate splenomegaly (20 cm) 4. Right-sided nephrolithiasis. No hydronephrosis. No ureteral calculi identified 5. Enlarging 22 mm left adrenal nodule, and new 11 mm right adrenal nodule 6. 6.6 cm exophytic uterine fibroid 7. Superior endplate L2 vertebral body fracture, finding not present on the preceding October 2017 study 8. Bilateral lower lobe atelectasis/consolidation 9. Suspected enlarging 2 cm polypoid lesion of the transverse colon. Endoscopic correlation is recommended if not previously performed. Chest CTA: IMPRESSION: 1. Marked splenomegaly 2. Elevation of the left hemidiaphragm 3. No evidence of acute pulmonary embolism 3. Bilateral lower lobe airspace opacities, atelectatic versus infectious/inflammatory CXR: IMPRESSION: Developing congestive heart failure. Medications Administered Azithromycin 500 mg/ Dextrose 255 mls @ 127.5 mls/hr IV NOW STA Stop: 10/24/18 20:14 Last Admin: 10/24/18 19:20 Dose: 127.5 mls/hr Documented by: [id number] Ioversol (Optiray 320 125ml) 120 ml IV ONCE PRN PRN Reason: Interaction Checking Stop: 10/28/18 17:20 Last Admin: 10/24/18 17:21 Dose: 120 ml Documented by: [id number] Discontinued Medications Albuterol (Duoneb) 3 ml NEB NOW STA Stop: 10/24/18 15:19 Last Admin: 10/24/18 15:24 Dose: 3 ml Documented by: [id number] Diphenhydramine HCl (Benadryl) 25 mg IV NOW STA Stop: 10/24/18 18:16 Last Admin: 10/24/18 18:50 Dose: 25 mg Documented by: [id number] Ceftriaxone Sodium (Rocephin) 2,000 mg in 70 mls @ 140 mls/hr IV NOW STA Stop: 10/24/18 18:41 Last Infusion: 10/24/18 19:34 Dose: 0 mls/hr Documented by: [id number] Admin: 10/24/18 18:50 Dose: 140 mls/hr Documented by: [id number] Methylprednisolone (Solumedrol) 125 mg IV NOW STA Stop: 10/24/18 18:13 Last Admin: 10/24/18 18:50 Dose: 125 mg Documented by: [id number] ECG Rate (beats per minute): 111 Rhythm: sinus tachycardia Code Status & VTE Plan Code Status Full Code VTE Prophylaxis Plan VTE Prophylaxis will be ordered: Yes Supervising Physician Co-Signing Physician Notes 67-year-old female with significant PMH of chronic hypercapnic respiratory failure on 4L of O2 and home ventilator at , obesity hypoventilation syndrome, COPD, IDDM 2 with polyneuropathy, JOSE, diastolic CHF, history of paroxysmal SVT, history of left thalamic CVA without residual deficit, HTN, HLD, GERD, chronic pain, morbid obesity who presents to [facility] secondary to hemoptysis x1 week. Reports chronic productive cough that became blood tinged in the past week. Had some episodes of coughing up about uhod-[id number]-lzbbar sized blood in the past 2 days. Associated with Shortness of breath and increased use of inhalers without much relief. Also noted desaturation to 80s on her pulse oximeter. Denied fevers, chills. General: Morbidly obese, mild respiratory distress (tachypneic on 4L/min oxygen via nasal cannula Eyes: PERRL, mild pallor, anicteric sclerae ENMT: External ear and nose normal, oropharynx normal Neck: Normal visual inspection, thick neck Respiratory: Mild resp distress (tachypneic on 4L/min oxygen via nasal cannula), limited exam due to body habitus and inability to sit up. no crackles or wheeze on auscultation anteriorly Cardiovascular: Pulse is RRR. S1 S2. no pedal edema Gastrointestinal (Abdomen): Abdomen is soft, non-tender to palpation, normal bowel sounds Musculoskeletal: No cyanosis or clubbing, Reports some pain of right foot (stated she hit her toe recently) Skin: No rash noted on gross inspection, No ulcers noted Neurologic: Alert and oriented x 3, sensation grossly intact Psychiatric: Alert and oriented x 3, anxious effect Lymphatic: No cervical lymphadenopathy Likely Bilateral pneumonia vs pneumonitis. No leukocytosis, fevers. CT chest showed bilateral basilar opacities. Risk of aspiration in a bed bound morbidly obese patient with JOSE/OHS. Give antibiotics with pretreatment with benadryl prior to ceftriaxone as patient confirmed that was how she had that in the past; and azithromycin. Reported recent pneumonia treated with azithromycin. However, patient reports multiple allergies to fluoroquinolones and most antibiotics.. Monitor resp status. Aspiration precautions. Sputum culture. For OHS/JOSE, patient reports she uses a special NIV different from CPAP/BIPAP. She was not comfortable using the hospital CPAP/BIPAP. Discussed with to bring own device. Hold benadryl at bedtime For acute on chronic anemia, microcytic, likely related to hemoptysis. Will do anemia workup Patient also has a lot of new findings on CT images, most of which needs outpatient follow up and management. Case management consult PT eval Dispo : Telemetry (1) Pneumonia Laterality: bilateral Lung location: lower lobe of lung Pneumonia type: due to unspecified organism Qualified Code(s): J18.1 - Lobar pneumonia, unspecified organism
[2018-10-24] MEDS ORDERED: GLUCAGON FOR INJ 1 MG VIAL SQ PRN (21:19)
[2018-10-24] MEDS ORDERED: CONSULT PHARMACY STA (21:19)
[2018-10-24] MEDS ORDERED: SIMVASTATIN 20 MG TAB PO SCH (21:19)
[2018-10-24] MEDS ORDERED: GLUCOSE 10 TABS/TUBE PO PRN (21:19)
[2018-10-24] MEDS ORDERED: GLUCOSE 40% GEL 15 GM TUBE PO PRN (21:19)
[2018-10-24] MEDS ORDERED: CARBOHYDRATES FOR HYPOGLYCEMIA PO PRN (21:19)
[2018-10-24] MEDS ORDERED: TIOTROPIUM BROMIDE 5 PUFF/90 MCG INH INH PRN (21:19)
[2018-10-24] MEDS ORDERED: BACLOFEN 10 MG TAB PO SCH (21:19)
[2018-10-24] MEDS ORDERED: PHARMACY GLYCEMIC MGMT CONSULT PRN (21:38)
[2018-10-24] MEDS ORDERED: INSULIN HUMAN NPH SC STA (22:00)
[2018-10-24] MEDS: PREGABALIN 100 MG CAP PO SCH (22:51)
[2018-10-24] MEDS: MIRTAZAPINE SOLTAB 15 MG PO SCH (22:52)
[2018-10-24] MEDS: FLUTICASONE PROPIONATE NA SPR 16 GM BTL SCH (22:52)
[2018-10-24] MEDS: NYSTATIN POWDER 15GM BTL EXT SCH (22:52)
[2018-10-24] MEDS: URSODIOL 300 MG CAP PO SCH (22:53)
[2018-10-24] MEDS: MONTELUKAST SODIUM 10 MG TABLET PO SCH (22:53)
[2018-10-24] MEDS: DULOXETINE HCL 30 MG CAP PO SCH (23:58)
[2018-10-25] MEDS ORDERED: ACETAMINOPHEN 325 MG TAB PO PRN (01:03)
[2018-10-25] MEDS ORDERED: INSULIN ASPART 100 UNITS/ML VIAL SC ONE (02:00)
[2018-10-25] MEDS ORDERED: INSULIN HUMAN REGULAR PER UNIT 10 UNITS in SYRINGE 9.9 ML IV ONE ×2 (02:15→04:30)
[2018-10-25] MEDS: LEVOTHYROXINE SODIUM 100 MCG TABLET PO SCH (06:14)
[2018-10-25 06:43] LABS: Hematocrit (blood only) 27.5 % (37-47); Hemoglobin 7.3 g/dL (12.0-16.0); Mean Corpuscular Hgb Conc 26.5 g/dL (32-36); Mean Corpuscular Volume 75.3 fL (80-100); Mean Platelet Volume 10.8 fL (7.4-10.4); Nucleated RBC # (auto) 0.02 K/uL (0-0); Nucleated RBC % (auto) 0.3 %; Platelet Count 142 K/uL (130-400); RDW Coefficient of Variation 20.3 % (11.5-14.5); RDW Standard Deviation 55.3 fL (36.4-46.3); Red Blood Count 3.65 M/uL (4.2-5.4); White Blood Count 6.21 K/uL (4.8-10.8)
[2018-10-25 06:44] LABS: Platelet Estimate Normal (Normal); Reticulocyte % 4.9 % (0.5-2.0); Reticulocytes # 0.18 10^6/uL (0.02-0.10)
[2018-10-25 06:57] LABS: BUN Creatinine Ratio 23.2 (10-20); Calcium 8.4 mg/dl (8.5-10.1); Creatinine Clr Calc Pharmacy 94.3 ml/min; Est GFR (African American) 77.2; Est GFR (Non-African American) 66.6; Ferritin 10.2 ng/ml (8-388); Potassium 4.3 mmol/L (3.5-5.1)
[2018-10-25] MEDS: ALBUT/IPRATROP 3MG/0.5MG NEB 3 ML VIAL NEB SCH ×4 (07:03→19:07)
[2018-10-25 07:10] LABS: Beta-Hydroxybutyrate 0.81 mg/dl (0.2-2.81)
[2018-10-25 07:44] LABS: Estimated Average Glucose 131 mg/dl; Hemoglobin A1C 6.2 % (4.5-5.6)
[2018-10-25] MEDS: INSULIN ASPART 100 UNITS/ML VIAL SC SCH ×4 (08:09→21:54)
[2018-10-25] MEDS: PANTOprazole 40 MG TAB PO SCH (08:17)
[2018-10-25] MEDS: FLUTICASONE HFA 110MCG INHALER INH SCH ×2 (08:18→20:50)
[2018-10-25] MEDS: DULOXETINE HCL 30 MG CAP PO SCH ×2 (08:18→20:49)
[2018-10-25] MEDS: METOPROLOL SUCC 25MG EXT REL TAB PO SCH (08:18)
[2018-10-25] MEDS: URSODIOL 300 MG CAP PO SCH (08:19)
[2018-10-25] MEDS: FLUTICASONE PROPIONATE NA SPR 16 GM BTL SCH ×2 (08:19→20:48)
[2018-10-25] MEDS: NYSTATIN POWDER 15GM BTL EXT SCH ×3 (08:23→23:06)
[2018-10-25] MEDS: PREGABALIN 100 MG CAP PO SCH ×3 (08:23→20:53)
[2018-10-25] MEDS ORDERED: INSULIN HUMAN NPH SC ONE ×2 (09:00)
[2018-10-25] MEDS ORDERED: ASPIRIN 81 MG ECTAB PO SCH (09:00)
[2018-10-25] MEDS ORDERED: PHARMACY GLYCEMIC MGMT CONSULT STA (09:02)
--- NOTE | 2018-10-25 10:41 | Pulmonary Consultation ---
Date of Consultation October 25, 2018 Assessment & Plan (1) Hemoptysis: The cause of the hemoptysis is not clear. The most likely source would be the infiltrates at both lung bases. She does not overtly have symptoms to suggest pneumonia. We are going to collect her sputum to quantitate the amount of bleeding in 24 hours, if any. She is quite anemic. I would be concerned about blood loss elsewhere such as the gut. I believe if this were all from the lung she likely would be bringing up much more blood than what she has. (2) Multilobar lung infiltrate: Continue a azithromycin and ceftriaxone (3) Chronic hypercapnic respiratory failure: Continue noninvasive ventilator nightly (4) JOSE (obstructive sleep apnea): Continue noninvasive ventilator nightly (5) Obesity hypoventilation syndrome: History of Present Illness Attending Physician: Deidre Mayo, History of Present Illness Pulmonary consultation is requested regarding hemoptysis. The patient is a 67-year-old female who has a remote history of asthma from many years ago. Subsequently she developed chronic respiratory failure related to obesity hypoventilation syndrome and obstructive sleep apnea. Sleep apnea was diagnosed as far back as the . She wore CPAP for many years. In 2012 she was switched to BiPAP. She had numerous hospitalizations including for admits in 2016, 2 admits 2017, and 2 admits 2018. She was subsequently changed from BiPAP to a noninvasive ventilator. The frequency of her hospitalizations has decreased significantly. It has helped a lot with her daytime alertness and presumably with her carbon dioxide retention. During 1 of her hospital stays in 2017 she had a PCO2 level as high as 130 on an arterial blood gas. She had been in her usual state of health. In fact she saw Johanna Emmanuel PA-C in the pulmonary office on 10/20/2018. She was doing very well at that time. The following day she started to cough a little bit of blood-streaked mucus. A day or 2 later she coughed up a larger quantity of blood but still small quantities. She did this a few times. The blood was bright red. She states she definitely did not have a nosebleed. She said nothing to suggest vomiting or regurgitation. Her became upset about the blood. She then was visited by a [facility] doctor who advised that she come to the ER for evaluation. The patient states she does not really feel like she has a cold. She does have somewhat of a chronic cough in the morning. She is not much more short of breath than normal now. For 2 days she was somewhat more short of breath than she usually is. The patient is almost bedridden. She does get up to a chair where she sits most of the day. Her has a lift device to help her get out of bed. The patient has marked obesity with a weight of 151 kg. If she goe s to the doctor he can get her into a wheelchair which then can be lifted up in the [facility] van to transport her. Sangeetha denies any chest pains. She is not had chills fevers or sweats. At the present time she feels good. She is not coughed up any blood since 2 days ago. Last evening she was started on 2 antibiotics. The patient's past surgical history just includes tonsillectomy, nasal septal surgery, and a partial nephrectomy for benign disease. 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 The patient has never smoked and she does not drink alcohol. She is listed as allergies to numerous medications including multiple antibiotics. She reportedly received a azithromycin and ceftriaxone without side effects yesterday. Benadryl was given just in case. As noted the patient uses a noninvasive ventilator at home. She is very comfortable with it and very compliant. Allergies Allergy/AdvReac Type Severity Reaction Status Date / Time fluoxetine Allergy Severe ANAPHYLAXIS Verified 10/24/18 15:39 Insulins Allergy Severe LANTUS/LEVEMIR- Verified 10/24/18 15:39 HIVES/THROAT SWELLING moxifloxacin Allergy Severe HIVES Verified 10/24/18 15:39 nitrofurantoin Allergy Severe HIVES Verified 10/24/18 15:39 paroxetine Allergy Severe HIVES Verified 10/24/18 15:39 Quinolones Allergy Severe AVELOX & Verified 10/24/18 15:39 LEVAQUIN-HIVES amitriptyline Allergy Intermediate Sweats and Verified 10/24/18 15:39 itching buspirone Allergy Intermediate HIVES Verified 10/24/18 15:39 cephalexin Allergy Intermediate Hives Verified 10/24/18 15:39 citalopram Allergy Intermediate HIVES-RASH Verified 10/24/18 15:39 escitalopram Allergy Intermediate HIVES-RASH Verified 10/24/18 15:40 levofloxacin Allergy Intermediate Hives Verified 10/24/18 15:40 methadone Allergy Intermediate HIVES Verified 10/24/18 15:40 Penicillins Allergy Intermediate RASH,HIVES Verified 10/24/18 15:40 Serotonin 5HT-3 Antagonists Allergy Intermediate MIGRAINES Verified 10/24/18 15:40 TO SSRIs trazodone Allergy Intermediate BLOODY Verified 10/24/18 15:40 NOSE, HEADACHES,HIVES vancomycin Allergy Intermediate HIVES Verified 10/24/18 15:40 prednisone Allergy Mild CHEST Verified 10/24/18 15:40 TIGHTNESS carbamazepine Allergy Unknown HIVES-RASH- Verified 10/24/18 15:40 ITCHINESS cefepime Allergy Unknown face & arm Verified 10/24/18 15:40 redness/itching after 2nd or 3rd dose cefepime ceftriaxone Allergy Unknown Received Verified 10/24/18 15:40 in MTU (but needed benadryl for course of therapy Cipro Allergy Unknown ABD PAINS Verified 09/08/17 09:10 ciprofloxacin Allergy Unknown ABD PAINS Verified 10/24/18 15:40 mivacurium Allergy Unknown HIVES Verified 10/24/18 15:40 sertraline Allergy Unknown UNKNOWN Verified 10/24/18 15:40 sitagliptin Allergy Unknown HIVES Verified 10/24/18 15:40 Cephalosporins Allergy Hives Verified 10/24/18 15:40 Tetracyclines AdvReac Severe HIVES Verified 10/24/18 15:40 Sulfa (Sulfonamide AdvReac Intermediate MIGRAINES Verified 10/24/18 15:40 Antibiotics) fexofenadine AdvReac Mild GI SYMPTOMS Verified 10/24/18 15:40 tizanidine AdvReac Mild ITCHING-HIV Verified 10/24/18 15:40 ES gentamicin AdvReac Unknown UNKNOWN Verified 10/24/18 15:40 lorazepam AdvReac Unknown Verified 10/24/18 15:40 Home Medications Home Medications Medication Instructions Recorded Confirmed Type Calmoseptine 1 applic TOPICAL QID PRN 10/25/17 10/24/18 History Novolin R Regular U-100 Insuln 30 unit SUBCUT . Q LUNCH 10/25/17 10/24/18 History Novolin R Regular U-100 Insuln 60 unit SUBCUT QAM 10/25/17 10/24/18 History Spiriva with HandiHaler 1 cap INHALATION DAILY PRN 10/25/17 10/24/18 History Tresiba FlexTouch U-200 65 unit SUBCUT .AM & LUNCH 10/25/17 10/24/18 History albuterol sulfate 2.5 mg INHALATION QID PRN 10/25/17 10/24/18 History albuterol sulfate [Ventolin HFA] 2 puff INHALATION QID PRN 10/25/17 10/24/18 History aspirin 81 mg PO DAILY 10/25/17 10/24/18 History celecoxib [Celebrex] 200 mg PO DAILY 10/25/17 10/24/18 History duloxetine [Cymbalta] 30 mg PO BID 10/25/17 10/24/18 History fluticasone propionate [Flonase 2 spray INTRANASAL BID 10/25/17 10/24/18 History Allergy Relief] furosemide [Lasix] 40 mg PO DAILY PRN 10/25/17 10/24/18 History levothyroxine 100 mcg PO DAILY 10/25/17 10/24/18 History melatonin 10 mg PO HS 10/25/17 10/24/18 History metformin 500 mg PO QID 10/25/17 10/24/18 History metoprolol succinate 25 mg PO DAILY 10/25/17 10/24/18 History montelukast [Singulair] 10 mg PO PM 10/25/17 10/24/18 History nystatin 1 applic TOPICAL TID 10/25/17 10/24/18 History ondansetron [Zofran ODT] 4 mg PO QID PRN 10/25/17 10/24/18 History pantoprazole 40 mg PO DAILY 10/25/17 10/24/18 History polyethylene glycol 3350 [Miralax] 17 g PO DAILY PRN 10/25/17 10/24/18 History potassium chloride 20 meq PO DAILY PRN 10/25/17 10/24/18 History pregabalin [Lyrica] 200 mg PO TID 10/25/17 10/24/18 History simvastatin [Zocor] 20 mg PO HS 10/25/17 10/24/18 History sumatriptan succinate [Imitrex] 100 mg PO UD 10/25/17 10/24/18 History ursodiol 600 mg PO BID 10/25/17 10/24/18 History baclofen 5 mg PO HS 10/24/18 10/24/18 History fluticasone furoate [Arnuity 1 inh INHALATION DAILY 10/24/18 10/24/18 History Ellipta] insulin regular human [Novolin R 40 unit SUBCUT .Q EVENING MEAL 10/24/18 History Regular U-100 Insuln] mirtazapine 45 mg PO HS 10/24/18 10/24/18 History Patient History Medical History Anemia (Chronic) JOSE (obstructive sleep apnea) (Chronic) Neuropathy (Chronic) HLD (hyperlipidemia) (Chronic) Morbid obesity (Chronic) COPD (chronic obstructive pulmonary disease) (Chronic) Recurrent UTI (Chronic) Obesity hypoventilation syndrome (Chronic) Hypothyroidism (Chronic) Hypertrophic cardiomyopathy (Chronic) Hypertension (Chronic) Dyslipidemia (Chronic) Diabetes mellitus, type II (Chronic) Chronic pain disorder (Chronic 01/24/14) Chronic hypercapnic respiratory failure (Chronic) Cerebrovascular disease (Chronic) "history left thalamic stroke" CVA (cerebral vascular accident) hx of L thalamus CVA A-fib Hypertension (Chronic) Surgical History Status post tonsillectomy (Chronic) History of tonsillectomy (Chronic) Hx of nasal septoplasty (Chronic) S/P dilatation and curettage (Chronic) H/O partial nephrectomy (Chronic) Family History Father Coronary heart disease Mother Diabetes Social History Preferred Language: Occitan Communication Ability: Effective Value Stream Coach Required: No Beliefs That Will Affect Care: None marital status: Current Living Situation: Spouse Current Living Situation Comment: living at home with Other Information That Helps Us Care for You: No Feels Safe at Home: Yes Safety Concerns: Feels Safe At This Time Smoking Status: Never smoker Second Hand Exposure: No ; Hx Alcohol Use: No Hx Substance Use: No Review of Systems Review of Systems: General: Energy level is usually low and it is not substantially different than normal denies chills fevers or sweats. Ophthalmic: No visual complaints ENT: Denies nosebleeds or nasal congestion Cardiac: Denies chest pains or palpitations Pulmonary: As per history of present illness GI: Denies reflux, nausea, vomiting, diarrhea. , denies complaints Musculoskeletal: Denies complaints other than the fact she is weak on the right side of her body and cannot ambulate at all. Dermatologic: No rashes Endocrine: No lymphadenopathy Physical Exam Physical Exam: The patient is a very pleasant 67-year-old female who is markedly obese. Weight is 151 kg with BMI of 50.6. She was in no distress. She was cooperative alert and oriented. Pupils were reactive. Cataract formation was suggested. Nares clear. Nasal cannula in place. Mouth exam showed dentures on top and just a few teeth on the bottom. No blood was noted at any site. She has a very large neck. No lymphadenopathy was noted. Cardiac rate 96/min. Rhythm regular. Blood pressure 150/65. Lung rojas revealed diffusely diminished breath sounds throughout. I believe this is mainly related to her obesity. With forced expiration one could hear some wheezing mainly in the upper airways. Respiratory rate 20. Temperature 37.1. Saturation 95% on 4 L. Abdomen was obese. Bowel sounds were present and were normal. There was no focal tenderness to palpation. No masses palpable. Extremities revealed that she has the intermittent compression device on. It is difficult to assess her edema but it is likely very mild. Results & Data Vital Signs (Past 12 Hours) Vital Signs Temp Pulse Pulse Pulse Resp BP BP 10/25/18 07:19 37.1 C 96 H 20 150/65 H 10/25/18 07:03 93 H 20 10/25/18 04:09 36.8 C 82 20 159/56 H 10/25/18 01:26 106 H 10/24/18 23:48 36.7 C 103 H 26 H 180/68 H Pulse Ox 10/25/18 07:19 95 10/25/18 07:03 95 10/25/18 04:09 93 10/25/18 01:26 10/24/18 23:48 92 Laboratory Results CBC on admission showed a white count of 6.69. Hemoglobin was only 7.5. Comparison hemoglobin from 12/19/2017 was 9.8. MCV, MCH, and MCHC are all low. This could suggest blood loss anemia. Today the hemoglobin is down to 7.3. INR was 1.0. Electrolytes show sodium 141 potassium 4.3 chloride 99 bicarb 37. BUN 21 with creatinine 0.89. Blood sugars 302. Calcium 8.4. Serum iron was low at 16. Total iron binding capacity was normal at 358. Ferritin was decreased to 10.2 which would be just barely above the lower limits of normal. proBNP was 694. Diagnostic Findings CAT scan of the chest done yesterday showed no evidence of pulmonary embolic disease. There was some limitation to the study as opacification was suboptimal due to the patient's body habitus. Bilateral opacities noted at both bases. Differential would be inflammatory versus atelectatic. CT of the abdomen and pelvis showed splenomegaly with the spleen measuring 20 cm. Right-sided nephrolithiasis noted. There is a 22 mm left adrenal nodule which is slightly enlarging compared with prior scan done October 2017, and a new 11 mm right adrenal nodule. A polypoid lesion of the transverse colon was noted measuring 2 cm. PG Care Time/CCT Total # of Minutes Spent Total Time Spent with Patient: Total time spent is greater than 50% in coordination of care (as documented) at patient's floor/unit and/or counseling patient:
--- NOTE | 2018-10-25 11:03 | Hospitalist Progress Note ---
Date of Service October 25, 2018 Assessment & Plan (1) Pneumonia: Recurrent symptoms after course of azithromycin one month ago. Improved on the ceftriaxone/azithro. Blood cultures pending. She appears well and symptoms have improved. Cont course of abx. (2) Hemoptysis: Blood streaking since pneumonia episode one month ago which persisted. She then had an increased amount of hemoptysis prompting arrival to the ER. Appreciate pulm recs. (3) Iron deficiency anemia: New polyps seen on imaging, which is likely source of blood loss/iron deficiency anemia. Pt reports no cscope in >20 years. GI consulted and plan for scope on Tuesday of this week. Transition to a liquid diet begining tomorrow morning. Transfuse 2 units pRBCs at this time. (4) Chronic hypercapnic respiratory failure: Appears stable from a pulmonary perspective. She has severe COPD but is not wheezing and reports no dyspnea today. She continues on her chronic 4L of oxygen and BIPAP qHS. She is on Trilogy at home. Cont Duonebs while hospitalized. (5) Diabetes mellitus, type II: A1C reflects good control, however, she in on insulin/metformin at home. Glycemic pharmacist was consulted for assistance while inpatient. (6) Hypothyroidism: chronic, cont home Synthroid. (7) Morbid obesity: (8) Closed compression fracture of body of lumbar vertebra: chronic, long-standing back pain. She is bed-bound/wheelchair-bound. Denies any trauma or new increase in pain. Cont supportive care. Uses celebrex at home, which is on hold in setting of anemia temporarily. Tylenol PRN (9) Adrenal adenoma: incidental finding on CT, defer to PCP for outpatient workup. (10) Hypertrophic cardiomyopathy: compensated. Giving blood-added one dose Lasix between units. (11) Paroxysmal SVT (supraventricular tachycardia): Toprol 25mg daily (12) Crohn disease: (13) Diabetic polyneuropathy: chronic, Lyrica per home regimen. (14) DVT prophylaxis: SCDs, chemoprophylaxis contraindicated in setting of acute anemia requiring a transfusion. Full Code Dispo-cont hospitalization until after upper and lower scope planned for Tuesday. Might be able to transfer home Tue or Tuesday. Deidre Mayo DO [facility] Hospitalist Subjective 67-year-old female with a history of diabetes, asthma, obstructive sleep apnea, obesity hypoventilation syndrome and severe COPD in addition to diastolic heart failure secondary to hypertrophic cardia myopathy presents with increased hemoptysis. She reports that one month ago she had increased shortness of breath and cough and was seen by [facility] at home physician who prescribed her azithromycin after a mobile chest x-ray was performed. She reports that she did feel better but she did notice some streaks of blood in her sputum at that time which persisted. She did feel better up until 1 week ago when she developed again and increased shortness of breath and cough and the streaks of blood continued. She was prompted to come to the ER when she noticed a large amount of blood with a clot that she coughed up. She is on Celebrex and baby aspirin at home. Celebrex is for chronic back pain. She denies any GI symptoms including no changes in her stool and no gross blood noted. She is otherwise had no blood loss. She reports a colonoscopy over 20 years ago. She was admitted to the hospitalist service and placed on azithromycin and ceftriaxone and states she feels better this morning. We discussed some new incidental findings on her CT scan including adrenal nodule and vertebral body compression fracture. Although she reports chronic back pain she denies any new back pain. She is also wheelchair-bound at baseline and has not walked in approximately 5 years. As a result of the hemoptysis pulmonary was consulted. As a result of the enlarging 2 cm polypoid lesion seen on her transverse colon and iron deficiency anemia noted on lab work, gastroenterology was consulted. We discussed the pros and cons of blood transfusion, to which she verbally consents and is looking over the written consent now. Review of Systems Review of Systems: All systems reviewed & are unremarkable except as noted in HPI & below Physical Exam Physical Exam: CONSTITUTIONAL: obesity, vitals as above, generally well- appearing EYES: normal conjunctivae, no scleral icterus ENT: MMM, supplemental oxygen via nasal canula in place. RESPIRATORY: clear to auscultation bilaterally, no crackles, rales or wheezes, normal respiratory effort CARDIOVASCULAR: regular rate and rhythm, S1 and 2 heard without murmurs, gallops or rubs, no JVD, no peripheral edema. SCDs in place. GASTROINTESTINAL: soft, nontender, nondistended MUSCULOSKELETAL: generally deconditioned, cannot sit up on her own. Head is normocephalic and atraumatic SKIN: warm and dry NEUROLOGIC: CN 2-12 grossly intact, normal cognition, no gross focal deficits. PSYCHIATRIC: alert cooperative and oriented to person, place and time. Results & Data Vital Signs (Past 12 Hours) Vital Signs Temp Pulse Pulse Pulse Resp BP BP 10/25/18 07:19 37.1 C 96 H 20 150/65 H 10/25/18 07:03 93 H 20 10/25/18 04:09 36.8 C 82 20 159/56 H 10/25/18 01:26 106 H 10/24/18 23:48 36.7 C 103 H 26 H 180/68 H Pulse Ox 10/25/18 07:19 95 10/25/18 07:03 95 10/25/18 04:09 93 10/25/18 01:26 10/24/18 23:48 92 Laboratory Results Short CBC 10/24/18 10/25/18 Range/Units 15:59 05:47 WBC 6.69 6.21 (4.8-10.8) K/uL Hgb 7.5 L 7.3 L (12.0-16.0) g/dL Hct 29.0 L 27.5 L (37-47) % Plt Count 129 L 142 (130-400) K/uL BMP 10/24/18 10/25/18 15:59 05:50 Sodium 142 141 Potassium 4.1 4.3 Chloride 100 99 Carbon Dioxide 40 H 37 H BUN 18 21 H Creatinine 0.83 0.89 Glucose 387 H* 302 H* Calcium 8.7 8.4 L Cardiac Enzymes 10/24/18 Range/Units 15:59 Troponin I < 0.015 (0-0.045) ng/ml Liver Function 10/24/18 Range/Units 15:59 Total Bilirubin 0.3 (0.2-1) mg/dl AST 8 L (15-37) U/L ALT 14 (12-78) U/L Alkaline Phosphatase 101 (45-117) U/L Albumin 2.9 L (3.4-5.0) gm/dl Medications Administered Current Inpatient Medications Acetaminophen (Tylenol) 650 mg PO Q4H PRN PRN Reason: Pain Stop: 11/24/18 01:02 Last Admin: 10/25/18 02:09 Dose: 650 mg Documented by: Albuterol (Duoneb) 3 ml NEB QIDR [facility] Stop: 11/24/18 06:59 Last Admin: 10/25/18 07:03 Dose: 3 ml Documented by: Aspirin (Ecotrin Ectab) 81 mg PO DAILY [facility] Stop: 11/24/18 08:59 Last Admin: 10/25/18 08:18 Dose: 81 mg Documented by: Baclofen (Lioresal) 5 mg PO HS [facility] Stop: 11/23/18 21:18 Last Admin: 10/24/18 22:52 Dose: 5 mg Documented by: Dextrose (Dextrose 50%) 25 - 50 ml IV UD PRN; Protocol PRN Reason: Hypoglycemia Protocol Stop: 11/23/18 21:18 Diphenhydramine HCl (Benadryl) 25 mg IV Q24H [facility] Stop: 11/24/18 19:29 Duloxetine HCl (Cymbalta) 30 mg PO BID [facility] Stop: 11/23/18 21:18 Last Admin: 10/25/18 08:18 Dose: 30 mg Documented by: Fluticasone Propionate (Flonase) 2 sprays NA BID [facility] Stop: 11/23/18 21:18 Last Admin: 10/25/18 08:19 Dose: Not Given Documented by: Fluticasone Propionate (Flovent Hfa 110mch) 1 puffs INH BID [facility] Stop: 11/24/18 08:59 Last Admin: 10/25/18 08:18 Dose: 1 puffs Documented by: Glucagon (Glucagen) 1 mg SQ UD PRN; Protocol PRN Reason: Hypoglycemia Protocol Stop: 11/23/18 21:18 Glucose (Glucose 40%) 15 - 30 gm PO UD PRN; Protocol PRN Reason: Hypoglycemia Protocol Stop: 11/23/18 21:18 Glucose (Dex4 Glucose) 4 - 8 tabs PO UD PRN; Protocol PRN Reason: Hypoglycemia Protocol Stop: 11/23/18 21:18 Azithromycin 500 mg/ Dextrose 255 mls @ 125 mls/hr IV Q24H [facility]; Protocol Stop: 10/31/18 17:59 Ceftriaxone Sodium 2,000 mg/ (Dextrose) 70 mls @ 140 mls/hr IV Q24H [facility]; Protocol Stop: 10/31/18 19:59 Insulin Aspart (Novolog Aspart) 0 units SC ACHS [facility]; Protocol Stop: 11/24/18 07:29 Last Admin: 10/25/18 08:09 Dose: 23 units Documented by: Insulin Human NPH (Novolin N Nph) 50 units SC TIDM [facility]; Protocol Stop: 11/24/18 07:59 Levothyroxine Sodium (Synthroid) 100 mcg PO DAILYBB [facility] Stop: 11/24/18 06:29 Last Admin: 10/25/18 06:14 Dose: 100 mcg Documented by: Metoprolol Succinate (Toprol Xl) 25 mg PO DAILY [facility] Stop: 11/24/18 08:59 Last Admin: 10/25/18 08:18 Dose: 25 mg Documented by: Mirtazapine (Remeron Solutab) 45 mg PO HS [facility] Stop: 11/23/18 21:18 Last Admin: 10/24/18 22:52 Dose: 45 mg Documented by: Miscellaneous (Carbohydrates For Hypoglycemia) 15 - 30 gm PO UD PRN PRN Reason: Hypoglycemia Treatment Stop: 11/23/18 21:18 Miscellaneous Information (Consult Glycemic Management Pharmacy) 1 ea N/A UD PRN; Protocol PRN Reason: Consult Stop: 11/23/18 21:37 Montelukast Sodium (Singulair) 10 mg PO PM [facility] Stop: 11/23/18 21:18 Last Admin: 10/24/18 22:53 Dose: 10 mg Documented by: Nystatin (Mycostatin) 1 appln EXT TID [facility] Stop: 11/23/18 21:18 Last Admin: 10/25/18 08:23 Dose: 1 appln Documented by: Pantoprazole Sodium (Protonix) 40 mg PO DAILY [facility] Stop: 11/24/18 08:59 Last Admin: 10/25/18 08:17 Dose: 40 mg Documented by: Pregabalin (Lyrica) 200 mg PO TID [facility] Stop: 11/23/18 21:18 Last Admin: 10/25/18 08:23 Dose: 200 mg Documented by: Simvastatin (Zocor) 20 mg PO HS [facility] Stop: 11/23/18 21:18 Last Admin: 10/24/18 22:53 Dose: 20 mg Documented by: Tiotropium [place] (Spiriva) 1 puffs INH DAILY PRN PRN Reason: Shortness Of Breath Stop: 11/23/18 21:18 Ursodiol (Actigall) 600 mg PO BID [facility] Stop: 11/23/18 21:18 Last Admin: 10/25/18 08:19 Dose: 600 mg Documented by: (1) Pneumonia Laterality: bilateral Lung location: lower lobe of lung Pneumonia type: due to unspecified organism Qualified Code(s): J18.1 - Lobar pneumonia, unspecified organism
[2018-10-25] MEDS: INSULIN HUMAN NPH SC SCH ×2 (12:20→17:09)
--- NOTE | 2018-10-25 15:01 | Pharmacy Report ---
Glycemic Control Consultation - Date of Service October 25, 2018 - Scope Scope: Glycemic Pharmacist consulted by Carmela Porter PA-C on 10/24 for glycemic control and to write orders per [facility] inpatient glycemic control protocol - Objective Weight: 151 kg Accuchecks BSG (last 24hrs): 10/24/18 10/24/18 10/24/18 15:59 21:09 21:10 Glucose 387 H* POC Glucose 326 H* 328 H* 10/25/18 10/25/18 10/25/18 01:58 01:59 04:00 Glucose POC Glucose 415 H* 419 H* 390 H* 10/25/18 10/25/18 10/25/18 04:02 05:50 07:06 Glucose 302 H* POC Glucose 389 H* 301 H* 10/25/18 10/25/18 07:07 11:25 Glucose POC Glucose 302 H* 227 H Laboratory Data (last 24hrs): 10/24/18 10/25/18 15:59 05:50 Potassium 4.1 4.3 Carbon Dioxide 40 H 37 H Anion Gap 2.0 L 5.0 Creatinine 0.83 0.89 Est Cr Clr Drug Dosing 101.0 94.3 Beta-Hydroxybutyric Acd 1.13 0.81 HbA1c: Hemoglobin A1c 6.2 % (4.5-5.6) H 10/25/18 05:47 - Recent Pertinent Medications Outpatient Anti-diabetic Regimen: * 6.2% 10/25/18 * Tresiba 65 units AM + Lunch; Novolin R 60/30/40, metformin 500 mg QID The patient is currently receiving: * Basal insulin: NPH 50 units with meals * Correctional Insulin: Novolog Correction per scale ACHS Goal Range: Low 120 mg/dL - High 160 mg/dL Correction Factor: 8 mg/dL/unit * Prandial insulin: Per carb ratio of 1 unit per 3 grams CHO consumed * Oral Agents: Risk Factors for Insulin Resistance: * Steroids: SM IV 125 mg x 1 in ED * Infection: * Pressors: * IVF: * Recent Surgery * Diet: * Mechanical Ventilation: - Assessment & Plan Assessment & Plan: ASSESSMENT: * Ms. Ramon is well known to glycemic service, patient has typically been controlled with inpatient regimen of NPH dosed with meals in addition to novolog correction/meal coverage * A1c improved on current outpatient regimen * BSGs elevated on admission and overnight (likely secondary to steroid in ED), NPH increased this morning, and BSG at lunch improved although still elevated. Will continue current NPH regimen for now as steroid dose will be ~24 hours this evening and effects should be wearing off * May tighten carb ratio if continued to be elevated, will adjust goal range PLAN FOR INPATIENT GLYCEMIC CONTROL: * Holding outpatient oral diabetes medications * Basal insulin * NPH 60 units this AM, 50 units with meals * Bolus insulin * NovoLog per scale ACHS or Q6hrs while NPO * Goal Range: Low 110 mg/dL - High 140 mg/dL * Correction Factor: 8 mg/dL/unit * Nutritional / Prandial insulin per carb ratio of 1 unit per 3 grams CHO consumed * Please note that the plan above was derived based on current level of insulin resistance and hospital stress. These recommendations are appropriate for inpatient admission only. Plan of care upon discharge will need to be reassessed to avoid potential outpatient hypo/hyperglycemia. Thank you.
[2018-10-25 15:29] LABS: Hematocrit (blood only) 27.2 % (37-47); Hemoglobin 7.3 g/dL (12.0-16.0)
[2018-10-25] MEDS ORDERED: SODIUM CHLORIDE 0.9% 250 ML IV PRN (16:52)
[2018-10-25] MEDS ORDERED: LAVAGE SOLUTION 4000ML PO SCH (17:00)
[2018-10-25] MEDS ORDERED: FUROSEMIDE 40 MG/4 ML VIAL IV SCH (17:00)
--- NOTE | 2018-10-25 17:00 | Gastrointestinal Consultation ---
Date of Consultation October 25, 2018 Assessment & Plan (1) Iron deficiency anemia: (2) Lesion of colon: Pt is a 67 y/o female currently admitted for respiratory failure, hemoptysis, pneumonia seen for worsening iron deficiency anemia and noted to have large 2cm polypoid lesion on transverse colon. She denies s/s of camila GI//vaginal bleeding. She had hx of colonoscopy >10 yrs ago and was told may have ulcerative colitis vs crohn's disease at one point but never on meds. EGD 2003 - hiatal hernia - Monitor H/H and transfuse prn - Discussed EGD/colonoscopy for anemia and colon lesion evaluation. Pt is agreeable to this. Will start Golytely 1L prep tonight, CL diet & full colonos copy prep tomorrow. Plan for EGD/colonoscopy on 10/27/18. - Pulmonology following, appreciate recs Supervising Physician Co-Signing Physician Notes I performed a history and physical examination of the patient, including specifically on physical exam - soft, nontender abdomen. I have discussed the patient's management with Carey. Please refer to the nurse practitioner's note for the documented findings and plan of care. Patient with anemia and polypoid lesion in transverse colon seen on CT scan. Need to r/o colonic malignancy. Her pulmonary status seems to be optimized for the procedure. Will schedule EGD and colonoscopy on Tuesday. History of Present Illness Reason for Consultation: Iron deficiency anemia, large colon polyp Requesting Physician: Dr. Deidre Mayo Attending Physician: Dr. Yoselin Burrows History of Present Illness Pt is a 67 y/o female currently admitted for hemoptysis, respiratory failure, pneumonia who is seen for anemia and large colon polyp noted on CT scan. She is currently on O2 4L per NC. Said breathing is a lot better. She denies any more bloody cough. H/H 7.3, baseline Hgb around 10. She denies being on blood thinners or antiplatelets. Denies symptoms of bloody urine or vaginal DC, rectal bleeding, dark tarry stools. CT abd/pelvis showed no enlarging 2cm polypoid lesion on transverse colon. Pt had EGD in 2003 w finding of hiatal hernia, hx of prior colonoscopy >10 yrs ago. At one point was told may have ulcerative colitis vs Crohns' but doesn't recall being on meds. Allergies Allergy/AdvReac Type Severity Reaction Status Date / Time fluoxetine Allergy Severe ANAPHYLAXIS Verified 10/24/18 15:39 Insulins Allergy Severe LANTUS/LEVEMIR- Verified 10/24/18 15:39 HIVES/THROAT SWELLING moxifloxacin Allergy Severe HIVES Verified 10/24/18 15:39 nitrofurantoin Allergy Severe HIVES Verified 10/24/18 15:39 paroxetine Allergy Severe HIVES Verified 10/24/18 15:39 Quinolones Allergy Severe AVELOX & Verified 10/24/18 15:39 LEVAQUIN-HIVES amitriptyline Allergy Intermediate Sweats and Verified 10/24/18 15:39 itching buspirone Allergy Intermediate HIVES Verified 10/24/18 15:39 cephalexin Allergy Intermediate Hives Verified 10/24/18 15:39 citalopram Allergy Intermediate HIVES-RASH Verified 10/24/18 15:39 escitalopram Allergy Intermediate HIVES-RASH Verified 10/24/18 15:40 levofloxacin Allergy Intermediate Hives Verified 10/24/18 15:40 methadone Allergy Intermediate HIVES Verified 10/24/18 15:40 Penicillins Allergy Intermediate RASH,HIVES Verified 10/24/18 15:40 Serotonin 5HT-3 Antagonists Allergy Intermediate MIGRAINES Verified 10/24/18 15:40 TO SSRIs trazodone Allergy Intermediate BLOODY Verified 10/24/18 15:40 NOSE, HEADACHES,HIVES vancomycin Allergy Intermediate HIVES Verified 10/24/18 15:40 prednisone Allergy Mild CHEST Verified 10/24/18 15:40 TIGHTNESS carbamazepine Allergy Unknown HIVES-RASH- Verified 10/24/18 15:40 ITCHINESS cefepime Allergy Unknown face & arm Verified 10/24/18 15:40 redness/itching after 2nd or 3rd dose cefepime ceftriaxone Allergy Unknown Received Verified 10/24/18 15:40 in MTU (but needed benadryl for course of therapy Cipro Allergy Unknown ABD PAINS Verified 09/08/17 09:10 ciprofloxacin Allergy Unknown ABD PAINS Verified 10/24/18 15:40 mivacurium Allergy Unknown HIVES Verified 10/24/18 15:40 sertraline Allergy Unknown UNKNOWN Verified 10/24/18 15:40 sitagliptin Allergy Unknown HIVES Verified 10/24/18 15:40 Cephalosporins Allergy Hives Verified 10/24/18 15:40 metformin [From Janumet] Allergy Unknown Verified 10/25/18 15:47 Tetracyclines AdvReac Severe HIVES Verified 10/24/18 15:40 Sulfa (Sulfonamide AdvReac Intermediate MIGRAINES Verified 10/24/18 15:40 Antibiotics) fexofenadine AdvReac Mild GI SYMPTOMS Verified 10/24/18 15:40 tizanidine AdvReac Mild ITCHING-HIV Verified 10/24/18 15:40 ES gentamicin AdvReac Unknown UNKNOWN Verified 10/24/18 15:40 lorazepam AdvReac Unknown Verified 10/24/18 15:40 Home Medications Home Medications Medication Instructions Recorded Confirmed Type Calmoseptine 1 applic TOPICAL QID PRN 10/25/17 10/24/18 History Novolin R Regular U-100 Insuln 30 unit SUBCUT . Q LUNCH 10/25/17 10/24/18 History Novolin R Regular U-100 Insuln 60 unit SUBCUT QAM 10/25/17 10/24/18 History Spiriva with HandiHaler 1 cap INHALATION DAILY PRN 10/25/17 10/24/18 History Tresiba FlexTouch U-200 65 unit SUBCUT .AM & LUNCH 10/25/17 10/24/18 History albuterol sulfate 2.5 mg INHALATION QID PRN 10/25/17 10/24/18 History albuterol sulfate [Ventolin HFA] 2 puff INHALATION QID PRN 10/25/17 10/24/18 History aspirin 81 mg PO DAILY 10/25/17 10/24/18 History celecoxib [Celebrex] 200 mg PO DAILY 10/25/17 10/24/18 History duloxetine [Cymbalta] 30 mg PO BID 10/25/17 10/24/18 History fluticasone propionate [Flonase 2 spray INTRANASAL BID 10/25/17 10/24/18 History Allergy Relief] furosemide [Lasix] 40 mg PO DAILY PRN 10/25/17 10/24/18 History levothyroxine 100 mcg PO DAILY 10/25/17 10/24/18 History melatonin 10 mg PO HS 10/25/17 10/24/18 History metformin 500 mg PO QID 10/25/17 10/24/18 History metoprolol succinate 25 mg PO DAILY 10/25/17 10/24/18 History montelukast [Singulair] 10 mg PO PM 10/25/17 10/24/18 History nystatin 1 applic TOPICAL TID 10/25/17 10/24/18 History ondansetron [Zofran ODT] 4 mg PO QID PRN 10/25/17 10/24/18 History pantoprazole 40 mg PO DAILY 10/25/17 10/24/18 History polyethylene glycol 3350 [Miralax] 17 g PO DAILY PRN 10/25/17 10/24/18 History potassium chloride 20 meq PO DAILY PRN 10/25/17 10/24/18 History pregabalin [Lyrica] 200 mg PO TID 10/25/17 10/24/18 History simvastatin [Zocor] 20 mg PO HS 10/25/17 10/24/18 History sumatriptan succinate [Imitrex] 100 mg PO UD 10/25/17 10/24/18 History ursodiol 600 mg PO BID 10/25/17 10/24/18 History baclofen 5 mg PO HS 10/24/18 10/24/18 History fluticasone furoate [Arnuity 1 inh INHALATION DAILY 10/24/18 10/24/18 History Ellipta] insulin regular human [Novolin R 40 unit SUBCUT .Q EVENING MEAL 10/24/1810/15 History Regular U-100 Insuln] mirtazapine 45 mg PO HS 10/24/18 10/24/18 History Patient History Medical History Anemia (Chronic) JOSE (obstructive sleep apnea) (Chronic) Neuropathy (Chronic) HLD (hyperlipidemia) (Chronic) Morbid obesity (Chronic) COPD (chronic obstructive pulmonary disease) (Chronic) Recurrent UTI (Chronic) Obesity hypoventilation syndrome (Chronic) Hypothyroidism (Chronic) Hypertrophic cardiomyopathy (Chronic) Hypertension (Chronic) Dyslipidemia (Chronic) Diabetes mellitus, type II (Chronic) Chronic pain disorder (Chronic 01/24/14) Chronic hypercapnic respiratory failure (Chronic) Cerebrovascular disease (Chronic) "history left thalamic stroke" CVA (cerebral vascular accident) hx of L thalamus CVA A-fib Hypertension (Chronic) Surgical History Status post tonsillectomy (Chronic) History of tonsillectomy (Chronic) Hx of nasal septoplasty (Chronic) S/P dilatation and curettage (Chronic) H/O partial nephrectomy (Chronic) Family History Father Coronary heart disease Mother Diabetes Social History Preferred Language: Sami Communication Ability: Effective Quality Assurance Advisor Required: No Beliefs That Will Affect Care: None marital status: Current Living Situation: Spouse Current Living Situation Comment: living at home with Other Information That Helps Us Care for You: No Feels Safe at Home: Yes Safety Concerns: Feels Safe At This Time Smoking Status: Never smoker Second Hand Exposure: No ; Hx Alcohol Use: No Hx Substance Use: No Review of Systems Review of Systems: All systems reviewed & are unremarkable except as noted in HPI & below Physical Exam Constitutional: WD/WN, vitals as above well groomed, cooperative and comfortable Eyes: PERRL, conjunctivae normal, anicteric sclerae ENMT: external ear and nose normal, oropharynx normal Respiratory: no respiratory distress and does not use accessory muscles Auscultation: + diminished lung sounds and + wheezes Cardiovascular: RRR, no murmur, no edema Gastrointestinal (Abdomen): normal bowel sounds, soft, nontender, no hepatosplenomegaly Skin: no rashes, warm and dry no jaundice Psychiatric: A+Ox3, euthymic affect Lymphatic: no lymphedema Results & Data Vital Signs (Past 12 Hours) Vital Signs Temp Pulse Pulse Resp BP Pulse Ox 10/25/18 16:00 37.0 C 87 18 154/61 H 93 10/25/18 15:51 84 16 95 10/25/18 11:32 36.7 C 77 20 139/72 96 10/25/18 11:23 87 22 96 10/25/18 07:25 84 10/25/18 07:19 37.1 C 96 H 20 150/65 H 95 10/25/18 07:03 93 H 20 95
[2018-10-25] MEDS ORDERED: ACETAMINOPHEN 325 MG TAB PO SCH (17:15)
[2018-10-25] MEDS ORDERED: AZITHROMYCIN 500 MG in DEXTROSE 5% 250 ML IV SCH (18:00)
[2018-10-25] MEDS ORDERED: FUROSEMIDE 40 MG in SYRINGE 0 ML IV SCH (18:00)
[2018-10-25] MEDS ORDERED: ONDANSETRON INJ 2 MG/ML 2 ML VIAL IV PRN (18:12)
[2018-10-25] MEDS ORDERED: ALBUTEROL 0.083% NEBU SOLN 3 ML VIAL NEB STA (19:05)
[2018-10-25] MEDS ORDERED: DiphenhydrAMINE HCL 50 MG/ML VIAL IV STA (19:07)
[2018-10-25] MEDS ORDERED: EPINEPHRINE ADULT AUTO-INJECT 0.3 MG SYR IM PRN (19:22)
[2018-10-25] MEDS ORDERED: EPINEPHrine INJ 1 MG/ML AMP IM STA (19:24)
[2018-10-25] MEDS ORDERED: DiphenhydrAMINE HCL 50 MG/ML VIAL IV SCH (19:30)
[2018-10-25] MEDS ORDERED: SODIUM CHLORIDE 0.9% 1000ML 500 ML IV ONE (19:34)
[2018-10-25] MEDS ORDERED: methylPREDNISolone 125 MG/2 ML VIAL IV STA (19:58)
[2018-10-25] MEDS ORDERED: ACETAMINOPHEN 1,000 MG/100 ML VIAL IV STA (19:58)
[2018-10-25] MEDS ORDERED: cefTRIAXone SODIUM 2,000 MG in DEXTROSE 5% 50 ML IV SCH (20:00)
[2018-10-25 20:15] LABS: Blood Urine Negative (Negative)
[2018-10-25] MEDS ORDERED: methylPREDNISolone 125 MG in SYRINGE 0 ML IV ONE (20:15)
[2018-10-25] MEDS ORDERED: FAMOTIDINE 20 MG in SYRINGE 3 ML IV ONE (20:15)
[2018-10-25 20:33] LABS: RBC Urine Automated 0-4 /hpf (0-4)
--- NOTE | 2018-10-25 20:33 | XRay Report ---
XR chest 1V portable CLINICAL HISTORY: 67 years-old Female presenting with transfusion reaction, chest pressure. TECHNIQUE: Portable upright AP view of the chest was obtained. COMPARISON: 10/24/2018. FINDINGS: Cardiac silhouette enlarged. Pulmonary vascular prominence. Bronchial wall cuffing. Mildly low lung v olumes. Increased bibasilar opacities. Pleural effusions may be present. No pneumothorax. Stippled ca lcified lesion in the proximal right humerus may represent a chondroid lesion. IMPRESSION: 1. Cardiomegaly with volume overload and congestive change. No camila pulmonary edema. 2. Decreasing aeration of the lung bases with increasing atelectasis. 3. Developing small pleural effusions are difficult to exclude. Electronically signed by: Bairon Cassidy M.D. 10/25/2018 8:32 PM
[2018-10-25] MEDS: AZTREONAM 2,000 MG in DEXTROSE 5% 100 ML IV SCH (20:47)
[2018-10-25] MEDS: MIRTAZAPINE SOLTAB 15 MG PO SCH (20:49)
[2018-10-25] MEDS: MONTELUKAST SODIUM 10 MG TABLET PO SCH (20:51)
[2018-10-25] MEDS ORDERED: ICU PROTOCOL FOR HYPERGLYCEMIA PRN (20:53)
--- NOTE | 2018-10-25 21:12 | Critical Care Consultation ---
Date of Consultation October 25, 2018 Assessment & Plan (1) Admitted to intensive care unit: Reason Critically Ill: 67-year-old female with acute transfusion reaction in the setting of persistent hemoptysis with acute on chronic respiratory failure with worsening hypercapnia requiring close monitoring for airway protection. NEURO - * CAM ICU: NEGATIVE * History of CVA CARDIAC/VASCULAR - * History of hypertension, paroxysmal SVT, and A. fib. * Continue home medications as tolerated. * Diastolic heart failure. * EKG: Sinus tach@111bpm. No ST/T-wave changes. QTc 454ms. * Monitor on telemetry. RESPIRATORY - * Hemoptysis x1 week: * Continue to monitor for worsening quantity of hemoptysis. * Consider nebulized TXA in the event of crisis. * Monitor closely for need for emergent endotracheal intubation. * Bilateral lower lobe pneumonia: * Initially on azithromycin and Rocephin. * Changed to aztreonam secondary to concerns for reaction to Rocephin. * Agree with his coverage in the setting of worsening clinical state. * Continue nebulizers. * Obesity hypoventilation syndrome: * Continue with trilogy as needed and was sleeping. * Chronic respiratory failure with hypercapnia: * Continue home oxygen dosing. * Trilogy at night. GI/NUTRITION - * Colon polyp: * Continue bowel prep for planned colonoscopy. * Questionable history of Crohn's disease. * N.p.o. while concern for possible need for emergent endotracheal intubation. * Prophylaxis: RENAL/LYTES - * No acute electrolyte derangements. * With IV fluids currently after 500 cc normal saline bolus. - * History of chronic UTIs. * Pure wick in place. ENDO - * DMII: * BSGs per unit protocol. ISS --> gtt per unit policy. * Hypothyroidism: * Continue home Synthroid dosing. HEME - * Anemia: * ?? source. * Would agree with pulm for GI assessment for ?? underlying bleeding lesion. * Transfusion reaction: * Received 25 mg oral and 25 mg IV Benadryl. * Received Solu-Medrol. * Initially received epinephrine. * Received Pepcid. * Monitor closely for rebound symptoms. ID - * Bilateral lower lobe infiltrative changes LEFT greater than right: * Initially treated with Rocephin and azithromycin. * Agree with change to broader coverage with aztreonam and the acutely ill patient. * Monitor lactate. * Pro-Nagi initially negative. LINES/IV ACCESS - * PIVs x2 * RIGHT Forearm 20g Endurance Catheter * RIGHT Radial A-Line DVT PROPHYLAXIS - * Hold 2/2 worsening anemia and hemoptysis. * SCDs I have personally spent 45 minutes of critical care time in the direct management of this patient. This is a life/limb threatening event. This includes time spent evaluating patient, direct bedside care, chart review, placing orders, interpretation of diagnostic studies, discussion with consultants, patient, and family members, as well as other required patient management activities. This time is exclusive of all separately billable procedures, and teaching time and separate from and in addition to any other critical care service time. Thank you for allowing us to participate in the care of this patient. Please refer to my attending physician's documentation for any further recommendations. (2) Transfusion reaction: (3) Hemoptysis: (4) Anemia: (5) Acute on chronic respiratory failure with hypercapnia: (6) Pneumonia: (7) Morbid obesity: (8) JOSE (obstructive sleep apnea): (9) Chronic hypercapnic respiratory failure: (10) Paroxysmal SVT (supraventricular tachycardia): (11) Hypertension: (12) A-fib: (13) CVA (cerebral vascular accident): Supervising Physician Co-Signing Physician Notes I agree with assessment and plan of Hardy Reynoso PA-C. I discussed this patient via telephone with Dr. Mayo. Transfusion related reaction labs sent, patient required intubation for somnolence which is likely acute on chronic. Patient was receiving blood transfusion for acute blood loss anemia of unclear etiology. Unlikely to be related to hemoptysis more consistent with GI losses and known colon polyp. History of hypertrophic obstructive cardiomyopathy will avoid catecholamines if possible. History of Present Illness Attending Physician: Deidre Mayo, History of Present Illness Patient is a 67-year-old female with a significant past medical history of chronic respiratory failure and hypercapnia on 4 L nasal cannula, asthma, obesity hypoventilation syndrome, diabetes, hypertension, prior CVA, hypothyroidism, and recurrent urinary tract infections who was admitted to this facility on 10/24/2018 with shortness of breath and hemoptysis with concerns for bilateral lower lobe pneumonia. She has reportedly had streaks of blood in her cough for the past few weeks. Over the past few days, the amount of blood has increased prompting her visit to the emergency department. She follows with outpatient pulmonology and was seen and reportedly doing well earlier in the week. Her hemoglobin and hematocrit have slowly trickle down throughout her hospitalization. She was ordered PRBCs to be transfused earlier this evening. Upon initiation of transfusion, the patient began to complain of tightness in her throat and jaw as well as flushing of the chest. She complained of a headache as well. She had been pretreated with 25 mg p.o. Benadryl and oral acetaminophen prior to the administration of blood products. Upon initiation of reaction, the patient was given an additional 25 mg IV Benadryl. She received a 500 cc normal saline bolus, 125 mg of IV Solu-Medrol, IV Pepcid, and IV Tylenol. She received a dose of epinephrine as well. After the epinephrine, the patient showed significant improvement of her reported symptoms. During these episodes, the patient had no significant change in her blood pressure heart rate. No reported fevers. Her symptoms have seemed to resolve mostly at this point. Upon evaluation in the ICU, the patient is awake, alert, and oriented. She reports feeling much better at this time and back at her baseline. She offers no complaints of headaches, dizziness, lightheadedness, chest pain, palpitations, pleuritic pain, nausea, vomiting, abdominal pain, numbness/weakness into her extremities. The patient does appear drowsy. Otherwise, she offers no complaints. Allergies Allergy/AdvReac Type Severity Reaction Status Date / Time fluoxetine Allergy Severe ANAPHYLAXIS Verified 10/24/18 15:39 Insulins Allergy Severe LANTUS/LEVEMIR- Verified 10/24/18 15:39 HIVES/THROAT SWELLING moxifloxacin Allergy Severe HIVES Verified 10/24/18 15:39 nitrofurantoin Allergy Severe HIVES Verified 10/24/18 15:39 paroxetine Allergy Severe HIVES Verified 10/24/18 15:39 Quinolones Allergy Severe AVELOX & Verified 10/24/18 15:39 LEVAQUIN-HIVES amitriptyline Allergy Intermediate Sweats and Verified 10/24/18 15:39 itching buspirone Allergy Intermediate HIVES Verified 10/24/18 15:39 cephalexin Allergy Intermediate Hives Verified 10/24/18 15:39 citalopram Allergy Intermediate HIVES-RASH Verified 10/24/18 15:39 escitalopram Allergy Intermediate HIVES-RASH Verified 10/24/18 15:40 levofloxacin Allergy Intermediate Hives Verified 10/24/18 15:40 methadone Allergy Intermediate HIVES Verified 10/24/18 15:40 Penicillins Allergy Intermediate RASH,HIVES Verified 10/24/18 15:40 Serotonin 5HT-3 Antagonists Allergy Intermediate MIGRAINES Verified 10/24/18 15:40 TO SSRIs trazodone Allergy Intermediate BLOODY Verified 10/24/18 15:40 NOSE, HEADACHES,HIVES vancomycin Allergy Intermediate HIVES Verified 10/24/18 15:40 prednisone Allergy Mild CHEST Verified 10/24/18 15:40 TIGHTNESS carbamazepine Allergy Unknown HIVES-RASH- Verified 10/24/18 15:40 ITCHINESS cefepime Allergy Unknown face & arm Verified 10/24/18 15:40 redness/itching after 2nd or 3rd dose cefepime ceftriaxone Allergy Unknown Received Verified 10/24/18 15:40 in [facility] (but needed benadryl for course of therapy Cipro Allergy Unknown ABD PAINS Verified 09/08/17 09:10 ciprofloxacin Allergy Unknown ABD PAINS Verified 10/24/18 15:40 mivacurium Allergy Unknown HIVES Verified 10/24/18 15:40 sertraline Allergy Unknown UNKNOWN Verified 10/24/18 15:40 sitagliptin Allergy Unknown HIVES Verified 10/24/18 15:40 Cephalosporins Allergy Hives Verified 10/24/18 15:40 [facility] Allergy Unknown Verified 10/25/18 15:47 Tetracyclines AdvReac Severe HIVES Verified 10/24/18 15:40 Sulfa (Sulfonamide AdvReac Intermediate MIGRAINES Verified 10/24/18 15:40 Antibiotics) fexofenadine AdvReac Mild GI SYMPTOMS Verified 10/24/18 15:40 tizanidine AdvReac Mild ITCHING-HIV Verified 10/24/18 15:40 ES gentamicin AdvReac Unknown UNKNOWN Verified 10/24/18 15:40 lorazepam AdvReac Unknown Verified 10/24/18 15:40 Home Medications Home Medications Medication Instructions Recorded Confirmed Type Calmoseptine 1 applic TOPICAL QID PRN 10/25/17 10/24/18 History Novolin R Regular U-100 Insuln 30 unit SUBCUT . Q LUNCH 10/25/17 10/24/18 History Novolin R Regular U-100 Insuln 60 unit SUBCUT QAM 10/25/17 10/24/18 History Spiriva with HandiHaler 1 cap INHALATION DAILY PRN 10/25/17 10/24/18 History Tresiba FlexTouch U-200 65 unit SUBCUT .AM & LUNCH 10/25/17 10/24/18 History albuterol sulfate 2.5 mg INHALATION QID PRN 10/25/17 10/24/18 History albuterol sulfate [Ventolin HFA] 2 puff INHALATION QID PRN 10/25/17 10/24/18 History aspirin 81 mg PO DAILY 10/25/17 10/24/18 History celecoxib [Celebrex] 200 mg PO DAILY 10/25/17 10/24/18 History duloxetine [Cymbalta] 30 mg PO BID 10/25/17 10/24/18 History fluticasone propionate [Flonase 2 spray INTRANASAL BID 10/25/17 10/24/18 History Allergy Relief] furosemide [Lasix] 40 mg PO DAILY PRN 10/25/17 10/24/18 History levothyroxine 100 mcg PO DAILY 10/25/17 10/24/18 History melatonin 10 mg PO HS 10/25/17 10/24/18 History metformin 500 mg PO QID 10/25/17 10/24/18 History metoprolol succinate 25 mg PO DAILY 10/25/17 10/24/18 History montelukast [Singulair] 10 mg PO PM 10/25/17 10/24/18 History nystatin 1 applic TOPICAL TID 10/25/17 10/24/18 History ondansetron [Zofran ODT] 4 mg PO QID PRN 10/25/17 10/24/18 History pantoprazole 40 mg PO DAILY 10/25/17 10/24/18 History polyethylene glycol 3350 [Miralax] 17 g PO DAILY PRN 10/25/17 10/24/18 History potassium chloride 20 meq PO DAILY PRN 10/25/17 10/24/18 History pregabalin [Lyrica] 200 mg PO TID 10/25/17 10/24/18 History simvastatin [Zocor] 20 mg PO HS 10/25/17 10/24/18 History sumatriptan succinate [Imitrex] 100 mg PO UD 10/25/17 10/24/18 History ursodiol 600 mg PO BID 10/25/17 10/24/18 History baclofen 5 mg PO HS 10/24/18 10/24/18 History fluticasone furoate [Arnuity 1 inh INHALATION DAILY 10/24/18 10/24/18 History Ellipta] insulin regular human [Novolin R 40 unit SUBCUT .Q EVENING MEAL 10/24/18 10/24/18 History Regular U-100 Insuln] mirtazapine 45 mg PO HS 10/24/18 10/24/18 History Patient History Medical History Anemia (Chronic) JOSE (obstructive sleep apnea) (Chronic) Neuropathy (Chronic) HLD (hyperlipidemia) (Chronic) Morbid obesity (Chronic) COPD (chronic obstructive pulmonary disease) (Chronic) Recurrent UTI (Chronic) Obesity hypoventilation syndrome (Chronic) Hypothyroidism (Chronic) Hypertrophic cardiomyopathy (Chronic) Hypertension (Chronic) Dyslipidemia (Chronic) Diabetes mellitus, type II (Chronic) Chronic pain disorder (Chronic 01/24/14) Chronic hypercapnic respiratory failure (Chronic) Cerebrovascular disease (Chronic) "history left thalamic stroke" CVA (cerebral vascular accident) hx of L thalamus CVA A-fib Hypertension (Chronic) Surgical History Status post tonsillectomy (Chronic) History of tonsillectomy (Chronic) Hx of nasal septoplasty (Chronic) S/P dilatation and curettage (Chronic) H/O partial nephrectomy (Chronic) Family History Father Coronary heart disease Mother Diabetes Social History Preferred Language: Egyptian Communication Ability: Effective 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 All else were negative. Physical Exam Physical Exam: VITAL SIGNS - Vital signs and nursing notes were reviewed. GENERAL - 67-year-old female appearing her stated age who is in no acute distress. Communicates well with provider and answers questions appropriately. SKIN - Without rashes. HEAD - NC/AT. EYES - PERRL with EOMI bilaterally. Sclera anicteric. Palpebral conjunctiva pink and moist with no injection noted. EARS - No deformities of external structures noted on gross examination bilaterally. NOSE - Midline and without cyanosis. No epistaxis or purulent drainage noted. MOUTH/OROPHARYNX - Without perioral cyanosis. Buccal mucosa pink and dry. Tongue midline with equal elevation of palate bilaterally. Upper dentures in place. NECK - Neck with FROM. Supple to palpation. No lymphadenopathy noted. No nuchal rigidity. LUNGS - Chest wall symmetric without accessory muscle use, intercostals retractions, or central cyanosis. Distant breath sounds noted. Coarse breath sounds at the bases. CARDIAC - RRR with S1/S2. No murmur, rubs, or gallops appreciated. ABDOMEN - Abdominal contour morbidly obese without pulsations or visible masses. BS normoactive all four quadrants. No tenderness noted. EXTREMITIES - No clubbing or peripheral cyanosis. +3/5 radial and dorsalis pedis pulses palpated throughout. +4/5 strength noted in UE/LE bilaterally. NEUROLOGIC - Cranial nerves II through XII grossly intact. Sensory intact to light touch throughout. PSYCH - A&Ox3 and cooperates fully with examiner. Drowsy. Pt is very pleasant and interacts well with examiner. Results & Data Vital Signs (Past 12 Hours) Vital Signs Temp Pulse Pulse Resp BP BP Pulse Ox 10/25/18 20:10 37.3 C 107 H 24 151/70 H 92 10/25/18 20:00 37.3 C 110 H 24 155/68 H 92 10/25/18 19:50 36.9 C 106 H 22 126/64 92 10/25/18 19:07 99 H 18 94 10/25/18 18:45 37 C 98 H 125/64 10/25/18 18:35 37.2 C 98 H 18 131/72 92 10/25/18 16:00 37.0 C 87 18 154/61 H 93 10/25/18 15:51 84 16 95 10/25/18 14:20 87 09/11/19 11:32 36.7 C 77 20 139/72 96 10/25/18 11:23 87 22 96 PG Care Time/CCT Total # of Minutes Spent Total Time Spent with Patient: Total time spent is greater than 50% in coordination of care (as documented) at patient's floor/unit and/or counseling patient: Critical Care Time: Yes Total Critical Care Time: 45 (1) Pneumonia Laterality: bilateral Lung location: lower lobe of lung Pneumonia type: due to unspecified organism Qualified Code(s): J18.1 - Lobar pneumonia, unspecified organism
--- NOTE | 2018-10-25 21:25 | Communication Note ---
Date of Service: October 25, 2018 I was contacted by the nurse regarding redness on the patient's chest and flushing with a tightness in her throat just a few minutes after starting her first unit of blood. She had been premedicated with benadryl 25mg PO and APAP 650mg. She was given an additional Benadryl 25mg IV x one dose and a neb treatment but didn't feel much better and started to report chest fullness and pressure in addition to a severe headache described as pressure. She denied her throat closing or SOB. She was not exhibiting signs of respiratory distress. She was itchy. BP remained 110-135 systolic with a HR in the 95-105 range. She was given one dose of 0.3mg epi from an auto-injector pen into the lateral left thigh. She subsequently improved after approximately 15-20 minutes with respect to her chest pressure and headache. NSS bolus of 500cc was given, Solumedrol 125mg IV, Pepcid 20mg IV, APAP 1000mg IV were all given. A CXR was performed revealing increased congestive change. She has a h/o chronic diastolic heart failure and was euvolemic prior to blood administration and oxygenating at baseline. She has underlying hypertrophic cardiomyopathy, and her Lasix 40mg PO daily per home regimen was held since admission. May consider IV Lasix overnight if work of breathing increases. An EKG was performed revealing no evidence of acute ischemia, ST w PACs at 106bpm. Her chest pressure and headache improved and her vitals continued to stay stable. With her other comorbidities including severe allergies to multiple drugs, chronic hypoxic res piratory failure 2/2 COPD, obesity hypoventilation syndrome and underlying pneumonia she would be better served in the ICU where intubation could occur quickly if needed overnight. She was improving prior to leaving the floor, so this will hopefully be less likely. The blood back was notified of the reaction and the post-transfusion reaction labwork including blood and urine was ordered and pending. No IgA deficiency was seen. Additionally, she was being given ceftriaxone-a drug known to give her hives- with a benadryl pre-treatment. In like of the anaphylactic reaction above, this was changed from azithro and ceftriaxone to aztreonam for continued treatment of her pneumonia. Her was updated and all questions answered. DO Gael
[2018-10-25 21:29] LABS: iSTAT Allen Test Pass; iSTAT Art Bld Gas pCO2 Correct 106 mmHg (35-46); iSTAT Art Bld Gas pH Corrected 7.194 (7.35-7.45); iSTAT Arterial Blood Gas HCO3 41 meg/L (19-24); iSTAT Arterial Blood Gas pCO2 105 mmHg (35-46); iSTAT Arterial Blood Gas pO2 78 mmHg (80-95); iSTAT Arterial Blood Gas pO2 C 79; iSTAT Carbon Dioxide > 40 mEq/l (24-31); iSTAT Site R Radial
[2018-10-25 21:37] LABS: Hematocrit (blood only) 29.9 % (37-47); Hemoglobin 7.9 g/dL (12.0-16.0); Mean Corpuscular Hemoglobin 20.4 pg (25-34); Mean Corpuscular Hgb Conc 26.4 g/dL (32-36); Mean Corpuscular Volume 77.1 fL (80-100); Platelet Count 151 K/uL (130-400); RDW Coefficient of Variation 20.7 % (11.5-14.5); RDW Standard Deviation 56.8 fL (36.4-46.3); Red Blood Count 3.88 M/uL (4.2-5.4); White Blood Count 10.78 K/uL (4.8-10.8)
[2018-10-25 21:54] LABS: Alanine Aminotransferase 14 U/L (12-78); Aspartate Aminotransferase 11 U/L (15-37); BUN Creatinine Ratio 23.7 (10-20); Bilirubin Direct < 0.1 mg/dl (0-0.2); Blood Urea Nitrogen 21 mg/dl (7-18); Calcium 8.5 mg/dl (8.5-10.1); Carbon Dioxide 38 mmol/L (21-32); Chloride 101 mmol/L (98-107); Creatinine Clr Calc Pharmacy 94.3 ml/min; Est GFR (African American) 77.2; Est GFR (Non-African American) 66.6; Glucose 114 mg/dl (70-99); Magnesium 2.2 mg/dl (1.8-2.4); Sodium 143 mmol/L (136-145)
[2018-10-25] MEDS ORDERED: INSULIN ASPART 100 UNITS/ML VIAL SC SCH (22:00)
[2018-10-25 22:01] LABS: Alkaline Phosphatase 87 U/L (45-117); Bilirubin,Total 0.2 mg/dl (0.2-1); Total Protein 6.8 gm/dl (6.4-8.2); Troponin I < 0.015 ng/ml (0-0.045)
[2018-10-25 22:02] LABS: Phosphorus 4.6 mg/dl (2.5-4.9); Potassium 3.6 mmol/L (3.5-5.1)
[2018-10-25 22:42] LABS: Anisocytosis Present; Basophils # (auto) 0.05 K/uL (0-0.2); Basophils % (auto) 0.5 %; Eosinophils % (auto) 1.9 %; Hypochromasia Present; Immature Granulocytes # (auto) 0.14 K/uL (0.00-0.02); Immature Granulocytes % (auto) 1.3 %; Lymphocytes # (auto) 2.27 K/uL (1.2-3.4); Lymphocytes % (auto) 21.1 %; Monocytes # (auto) 1.21 K/uL (0.11-0.59); Monocytes % (auto) 11.2 %; Neutrophils # (auto) 6.91 K/uL (1.4-6.5); Polychromasia 1+; Stomatocytes 1+
[2018-10-25 23:21] LABS: iSTAT Art Bld Gas pCO2 Correct 95 mmHg (35-46); iSTAT Art Bld Gas pH Corrected 7.239 (7.35-7.45); iSTAT Arterial Blood Gas HCO3 41 meg/L (19-24); iSTAT Arterial Blood Gas pCO2 95 mmHg (35-46); iSTAT Arterial Blood Gas pH 7.24 (7.35-7.45); iSTAT Arterial Blood Gas pO2 84 mmHg (80-95); iSTAT Arterial Blood Gas pO2 C 85; iSTAT Carbon Dioxide > 40 mEq/l (24-31); iSTAT FiO2 35 %; iSTAT Site R Radial
--- NOTE | 2018-10-25 23:58 | Procedure Note ---
Procedure Note Date of Service October 25, 2018 Procedure: Arterial Line Placement Attending: Dr. Love APC: Mika Reynoso PA-C Indication: Monitoring on Pressors Anesthesia: Lidocaine 1% Per prior discussion with the patient, she verbally consented to arterial line, central line, and endotracheal intubation in the event of need to facilitate higher degree of care. Risks, benefits, alternatives, and extent of procedure were discussed with the patient at great length. At the time of procedure, the patient is somnolent and unable to provide further consent necessitating procedure. Emergent consent implied in the setting of worsening respiratory failure. A time-out was completed verifying correct patient, procedure, site, positioning, and implant(s) or special equipment if applicable. Allens test was performed to ensure adequate perfusion. Patients LEFT wrist was prepped and draped in the usual sterile fashion. Ultrasound guidance was used to aid needle placement. A 20g Arrow arterial line was introduced into the LEFT artery. Catheter was threaded, and the needle was removed with appropriate blood return. Good waveform was observed. The patient tolerated the procedure well. Confirmation of placement with ultrasound. Blood Loss: Minimal Complications: None Procedural Ultrasound Guidance: Procedure Date: 10/25/2018 Indication: Frequent ABGs, Pressure monitoring, Frequent lab draws. Attending: Dr. Love APC: Mika Reynoso PA-C Artery Identified: YES Line confirmed in Artery with ultrasound: YES Complications: NONE Patient tolerated procedure: WELL Coding CPT Codes Tubes, Drains, and Vasc Access - Tubes, Drains, and Vasc Access: Place Catheter In Artery ([id number])
--- NOTE | 2018-10-25 23:58 | Procedure Note ---
Procedure Note Date of Service October 25, 2018 Procedure: Geological Technical Officer Indwelling Peripherally Inserted IV Catheter Placement Attending: Dr. Love APC: Mika Reynoso PA-C Indication: Need for IV Access, Poor Vascular Access Anesthesia: None A time-out was completed verifying correct patient, procedure, site, positioning, and implant(s) or special equipment if applicable. Utilizing bedside ultrasound, vascularity of the RIGHT upper extremity was assessed. Vessel size was noted for appropriate catheter selection and skin was marked with gentle pressure. Patients RIGHT upper extremity was prepped and draped in the usual sterile fashion utilizing chlorhexidine. Ultrasound guidance was used to aid needle placement. A 20 g Endurance Catheter was introduced into the RIGHT Cephalic vein under direct ultrasound guidance. Guide wire was easily deployed without resistance. Catheter was threaded over the guide wire without resistance and the entire apparatus was removed intact. Good venous blood return was noted in the catheter. The IV catheter was easily flushed with sterile saline flush. Sterile clave was attached to the end of the catheter and good blood return was again noted. Tourniquet was released. StatLock device and sterile dressing were applied. The patient tolerated the procedure well. Blood Loss: Minimal Complications: None Procedural Ultrasound Guidance: Procedure Date: 10/25/2018 Indication: Poor Vascular Access Attending: Dr. Love APC: Mika Reynoso PA-C Artery/Veins Identified: YES Access confirmed in Vein with ultrasound: YES Complications: NONE Patient tolerated procedure: WELL Coding
[2018-10-26] MEDS: INSULIN ASPART 100 UNITS/ML VIAL SC SCH ×3 (00:10→09:53)
[2018-10-26] MEDS ORDERED: RAPID SEQUENCE INDUCTION BAG ONE (00:28)
--- NOTE | 2018-10-26 00:34 | Critical Care Progress Note ---
Date of Service October 26, 2018 Assessment & Plan (1) Admitted to intensive care unit: Reason Critically Ill: 67-year-old female with acute transfusion reaction in the setting of persistent hemoptysis with acute on chronic respiratory failure with worsening hypercapnia requiring close monitoring for airway protection. NEURO - * CAM ICU: NEGATIVE * History of CVA CARDIAC/VASCULAR - * History of hypertension, paroxysmal SVT, and A. fib. * Continue home medications as tolerated. * Diastolic heart failure. * EKG: Sinus tach@111bpm. No ST/T-wave changes. QTc 454ms. * Monitor on telemetry. RESPIRATORY - * Hemoptysis x1 week: * Continue to monitor for worsening quantity of hemoptysis. * Consider nebulized TXA in the event of crisis. * Monitor closely for need for emergent endotracheal intubation. * Bilateral lower lobe pneumonia: * Initially on azithromycin and Rocephin. * Changed to aztreonam secondary to concerns for reaction to Rocephin. * Agree with his coverage in the setting of worsening clinical state. * Continue nebulizers. * Obesity hypoventilation syndrome: * Continue with trilogy as needed and was sleeping. * Chronic respiratory failure with hypercapnia: * Continue home oxygen dosing. * Trilogy at night. Difficult airway via criteria GI/NUTRITION - * Colon polyp: * Continue bowel prep for planned colonoscopy. * Questionable history of Crohn's disease. * N.p.o. while concern for possible need for emergent endotracheal intubation. * Starting bowel prep to be completed by 10 AM with dose of Reglan * Prophylaxis: Pepcid RENAL/LYTES - * No acute electrolyte derangements. * With IV fluids currently 125 Normosol - * History of chronic UTIs. * Pure wick in place. ENDO - * DMII: * BSGs per unit protocol. ISS --> gtt per unit policy. * Hypothyroidism: * Continue home Synthroid dosing. HEME - * Anemia: * ?? source. * Would agree with pulm for GI assessment for ?? underlying bleeding lesion. * Transfusion reaction: * Received 25 mg oral and 25 mg IV Benadryl. * Received Solu-Medrol. * Initial transfusion reaction labs are negative Ordered peripheral smear to check for schistocytes -Peripheral smear reviewed most consistent with iron deficiency anemia, no significant evidence to suspect hemolysis Patient was receiving Rocephin and azithromycin: Possibility exists that this may have been allergic reaction -Greater than 12 hours since reaction so the laboratory analysis would be of minimal yield ID - * Bilateral lower lobe infiltrative changes LEFT greater than right: * Initially treated with Rocephin and azithromycin. * Agree with change to broader coverage with aztreonam and the acutely ill patient. * Monitor lactate. * Pro-Nagi initially negative. LINES/IV ACCESS - * PIVs x2 * RIGHT Forearm 20g Endurance Catheter * RIGHT Radial A-Line DVT PROPHYLAXIS - * Hold 2/2 worsening anemia and hemoptysis. * SCDs Primary issue at this time is the acute blood loss, she has significant risk factors for difficult airway and could be a difficult sedation, with a secured airway we feel it is best to proceed with EGD and colonoscopy. If source of bleeding is not discovered on GI evaluation I would consider bronchoscopy to evaluate for diffuse alveolar hemorrhage, I agree with pulmonology that it would be unlikely to produce a significant anemia, and at this time we are largely removed from the administration of antibiotics that I feel a source from a bronchoscopy specimen be low yield probability. 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 This assessment and plan is reflective of my critical care time which took place after signout at 7 AM. Patient was discussed in multidisciplinary rounds, I also discussed this patient with gastroenterology service. I have personally spent 50 minutes of critical care time in the direct management of this patient. This is a life/limb threatening event. This includes time spent evaluating patient, direct bedside care, chart review, placing orders, interpretation of diagnostic studies, discussion with consultants, patient, and/or family members regarding treatment decisions, as well as other required patient management activities. This time is exclusive of all separately billable procedures, and teaching time and separate from and in addition to any other critical care service time. (2) Transfusion reaction: (3) Hemoptysis: (4) Anemia: (5) Acute on chronic respiratory failure with hypercapnia: (6) Pneumonia: (7) Morbid obesity: (8) JOSE (obstructive sleep apnea): (9) Chronic hypercapnic respiratory failure: (10) Paroxysmal SVT (supraventricular tachycardia): (11) Hypertension: (12) A-fib: (13) CVA (cerebral vascular accident): Subjective Patient was showing worsening signs of hypercapnia with increasing somnolence. Upon evaluation approximately midnight, the patient was noted to be difficult to arouse. Changes were made to the patient's BiPAP settings. Repeat blood gas at 0030 demonstrates worsening respiratory acidosis with a CO2 of 102. At this point, the patient is no longer maintaining her airway and is certainly concerning for impending respiratory arrest. Decision was made to emergently intubate. Prior to this, well awaiting arrival personnel and equipment, LEFT arterial A-line and RIGHT forearm endurance catheters were placed. Dr. Jones of the emergency department did present to perform sedation for emergent endotracheal intubation. Please see separate note. After intubation, the patient was sent for CT of the head, chest, and abdomen/pelvis. Imaging results demonstrate no acute findings. On reevaluation upon returning from CT, the patient is now awake and more alert. She is sedated with fentanyl drip and Versed as needed. Ferrell catheter was placed for comfort. We will hold on the patient's GoLYTELY prep given her change in clinical status. I have personally spent 60 minutes of critical care time in the direct management of this patient. This is a life/limb threatening event. This includes time spent evaluating patient, direct bedside care, chart review, placing orders, interpretation of diagnostic studies, discussion with consultants, patient, and family members, as well as other required patient management activities. This time is exclusive of all separately billable procedures, and teaching time and separate from and in addition to any other critical care service time. Results & Data Vital Signs (Past 12 Hours) Vital Signs Temp Pulse Pulse Resp BP BP BP 10/26/18 00:01 89 23 136/49 L 10/26/18 00:00 92 H 24 10/25/18 23:58 92 H 24 136/53 L 10/25/18 23:49 36.7 C 10/25/18 23:46 91 H 24 153/52 H 10/25/18 23:31 90 24 148/53 H 10/25/18 23:30 91 H 23 10/25/18 23:29 91 H 22 136/52 L 10/25/18 23:16 91 H 19 122/51 L 10/25/18 23:13 93 H 26 H 10/25/18 23:02 95 H 24 113/49 L 10/25/18 23:00 97 H 94 H 26 H 113/49 L 10/25/18 22:40 93 H 25 H 10/25/18 22:31 93 H 28 H 123/58 L 10/25/18 22:30 96 H 25 H 10/25/18 22:20 37.2 C 92 H 94 H 24 123/58 L 10/25/18 22:16 91 H 16 109/46 L 10/25/18 22:10 93 H 6 L 10/25/18 22:07 96 H 19 112/53 L 10/25/18 22:01 95 H 0 L 75/38 L 10/25/18 22:00 95 H 12 10/25/18 21:50 96 H 0 L 10/25/18 21:46 97 H 8 L 109/43 L 10/25/18 21:40 90 3 L 10/25/18 21:38 98 H 21 10/25/18 21:31 98 H 0 L 101/44 L 10/25/18 21:30 99 H 0 L 10/25/18 21:20 99 H 29 H 10/25/18 21:16 100 H 27 H 120/59 L 10/25/18 21:10 104 H 25 H 10/25/18 21:01 104 H 29 H 116/55 L 10/25/18 21:00 105 H 27 H 10/25/18 20:50 105 H 27 H 10/25/18 20:46 104 H 29 H 96/49 L 10/25/18 20:44 105 H 29 H 109/45 L 10/25/18 20:40 107 H 32 H 10/25/18 20:33 109 H 26 H 10/25/18 20:31 106 H 33 H 123/63 10/25/18 20:30 107 H 27 H 144/51 H 10/25/18 20:29 109 H 30 H 130/49 L 10/25/18 20:20 106 H 10/25/18 20:10 37.3 C 107 H 107 H 24 151/70 H 10/25/18 20:00 37.3 C 106 H 110 H 24 155/68 H 10/25/18 19:50 36.9 C 106 H 106 H 22 126/64 10/25/18 19:40 109 H 10/25/18 19:30 108 H 10/25/18 19:20 103 H 10/25/18 19:10 99 H 10/25/18 19:07 99 H 18 10/25/18 19:00 104 H 10/25/18 18:50 98 H 10/25/18 18:45 37 C 98 H 125/64 10/25/18 18:40 100 H 10/25/18 18:35 37.2 C 98 H 18 131/72 10/25/18 18:30 97 H 10/25/18 18:20 100 H 10/25/18 18:10 100 H 10/25/18 18:00 101 H 10/25/18 17:50 103 H 10/25/18 17:40 103 H 10/25/18 17:30 101 H 10/25/18 17:20 101 H 10/25/18 17:10 91 H 10/25/18 17:00 96 H 10/25/18 16:50 97 H 10/25/18 16:40 92 H 10/25/18 16:00 37.0 C 87 18 154/61 H 10/25/18 15:51 84 16 10/25/18 14:20 87 Pulse Ox 10/26/18 00:01 96 10/26/18 00:00 96 10/25/18 23:58 94 10/25/18 23:49 10/25/18 23:46 93 10/25/18 23:31 94 10/25/18 23:30 94 10/25/18 23:29 93 10/25/18 23:16 95 10/25/18 23:13 93 10/25/18 23:02 91 10/25/18 23:00 93 10/25/18 22:40 90 10/25/18 22:31 93 10/25/18 22:30 89 L 10/25/18 22:20 90 10/25/18 22:16 94 10/25/18 22:10 95 10/25/18 22:07 91 10/25/18 22:01 91 10/25/18 22:00 92 10/25/18 21:50 92 10/25/18 21:46 93 10/25/18 21:40 93 10/25/18 21:38 93 10/25/18 21:31 93 10/25/18 21:30 92 10/25/18 21:20 94 10/25/18 21:16 92 10/25/18 21:10 90 10/25/18 21:01 90 10/25/18 21:00 90 10/25/18 20:50 90 10/25/18 20:46 89 L 10/25/18 20:44 90 10/25/18 20:40 91 10/25/18 20:33 89 L 10/25/18 20:31 89 L 10/25/18 20:30 10/25/18 20:29 88 L 10/25/18 20:20 10/25/18 20:10 92 10/25/18 20:00 92 10/25/18 19:50 92 10/25/18 19:40 10/25/18 19:30 10/25/18 19:20 10/25/18 19:10 10/25/18 19:07 94 10/25/18 19:00 10/25/18 18:50 10/25/18 18:45 10/25/18 18:40 10/25/18 18:35 92 10/25/18 18:30 10/25/18 18:20 10/25/18 18:10 10/25/18 18:00 10/25/18 17:50 10/25/18 17:40 10/25/18 17:30 10/25/18 17:20 10/25/18 17:10 10/25/18 17:00 10/25/18 16:50 10/25/18 16:40 10/25/18 16:00 93 10/25/18 15:51 95 10/25/18 14:20 PG Care Time/CCT Total # of Minutes Spent Total Time Spent with Patient: Total time spent is greater than 50% in coordination of care (as documented) at patient's floor/unit and/or counseling patient: Critical Care Time: Yes Total Critical Care Time: 60 60: Mika Reynoso. (1) Pneumonia Laterality: bilateral Lung location: lower lobe of lung Pneumonia type: due to unspecified organism Qualified Code(s): J18.1 - Lobar pneumonia, unspecified organism
[2018-10-26] MEDS ORDERED: MIDAZOLAM HCL 125MG/250ML D5W ONE (00:44)
[2018-10-26] MEDS ORDERED: ATROPINE SULFATE 0.1 MG/ML 10ML SYR IV STA (00:54)
--- NOTE | 2018-10-26 00:54 | Procedure Note ---
Procedure Note Date of Service October 26, 2018 APC: Mika Reynoso PA-C. Attending: Dr. Love A time-out was completed verifying correct patient, procedure, site, positioning. Patient was evaluated and required intubation for acute on chronic respiratory failure with worsening hypercapnia, changes in mental status, and inability to protect airway. Sedative agent used: Fentanyl, Versed Paralysis agent used: Vecuronium Per prior discussion with the patient, she verbally consented to arterial line, central line, and endotracheal intubation in the event of need to facilitate higher degree of care. Risks, benefits, alternatives, and extent of procedure were discussed with the patient at great length. At the time of procedure, the patient is somnolent and unable to provide further consent necessitating procedure. Emergent consent implied in the setting of worsening respiratory failure and need for airway protection. The patient was prepared in the appropriate fashion. Sedation was achieved utilizing Fentanyl and Versed, per Dr. Jones\ administration. The patient's own BiPAP mask was used to ventilate and easily achieve adequate oxygenation. A 7.5 Jordanian endotracheal tube was placed using Glidescope to 24 cm at the lip. The stylette was removed and balloon was inflated with 10mL of air. Appropriate Colorimetric change was appreciated. Bilateral breath sounds were heard without air sounds in the abdomen. Dr. Karen MD (Emergency Medicine) was present for the entire procedure. Post Intubation Chest X-ray confirms placement without pneumothorax. Patient tolerated the procedure well and there were no immediate complications. Coding CPT Codes Resuscitation - Resuscitation: Endotracheal Intubation, emergency ([id number])
[2018-10-26] MEDS ORDERED: fentaNYL citrate 100 MCG/2 ML VIAL ONE (01:05)
--- NOTE | 2018-10-26 01:21 | Emergency Department Note ---
ED Visit Note Procedural Sedation Indication intubation. Total time: 15 minutes. Pre-sedation examination and paperwork completed. Due to resp failure sedation will be done emergently. The patient was on 100% oxygen via bipap prior to the procedure. Continous end tidal CO2 monitoring, pulse oximetry, and cardiac monitoring were utilized. Suction, airway equipment, medications, respiratory equipment, and appropriate personnel were prepared prior to the initiation of the procedure. A time out was taken. Sedation was achieved utilizing 2 mg of Versed and 100 of fentanyl. After I observed the patient had reached the appropriate level of sedation the intubation was performed By Mika Barakat without complication. Pt was then given succinylcholine, placed on a versed drip and then 10 mg of Vecuronium after Intubation. The monitoring continued. The patient remains intubated in the ICU. . : Pneumonia Qualifiers: Pneumonia type: due to unspecified organism Laterality: bilateral Lung locat ion: lower lobe of lung Qualified Code(s): J18.1 - Lobar pneumonia, unspecified organism
[2018-10-26 01:22] LABS: iSTAT Art Bld Gas pCO2 Correct 101 mmHg (35-46); iSTAT Arterial Blood Gas HCO3 41 meg/L (19-24); iSTAT Arterial Blood Gas pCO2 102 mmHg (35-46); iSTAT Arterial Blood Gas pH 7.21 (7.35-7.45); iSTAT Arterial Blood Gas pO2 90 mmHg (80-95); iSTAT Arterial Blood Gas pO2 C 88; iSTAT Carbon Dioxide > 40 mEq/l (24-31); iSTAT FiO2 35 %; iSTAT Site Art Line
[2018-10-26] MEDS: MIDAZOLAM HCL 125 MG/250 ML BAG IV PRN ×2 (01:41→17:36)
[2018-10-26] MEDS: fentaNYL citrate 100 MCG/2 ML VIAL IV PRN ×4 (01:46→17:51)
[2018-10-26 02:51] LABS: iSTAT Art Bld Gas pCO2 Correct 46 mmHg (35-46); iSTAT Arterial Blood Gas HCO3 35 meg/L (19-24); iSTAT Arterial Blood Gas pCO2 47 mmHg (35-46); iSTAT Arterial Blood Gas pH 7.49 (7.35-7.45); iSTAT Arterial Blood Gas pO2 69 mmHg (80-95); iSTAT Arterial Blood Gas pO2 C 67; iSTAT Carbon Dioxide 37 mEq/l (24-31); iSTAT FiO2 50 %; iSTAT Site Art Line
[2018-10-26 02:57] LABS: Appearance Urine Clear (Clear); Bacteria Urine Automated Negative (Negative); Bilirubin Urine Negative (Negative); Blood Urine Negative (Negative); Color Urine Yellow; Epithelial Cell Urine Auto >30 /lpf (0-5); Glucose Urine UA Negative (Negative); Ketones Urine Negative (Negative); Leukocyte Esterase Urine 1+ (Negative); Nitrite Urine Negative (Negative); Protein Urine 1+ (Negative); RBC Urine Automated 0-4 /hpf (0-4); Specific Gravity Urine 1.022 (1.000-1.030); Urobilinogen Urine Negative (Negative); pH Urine 5.5 (4.5-7.5)
[2018-10-26] MEDS: AZTREONAM 2,000 MG in DEXTROSE 5% 100 ML IV SCH ×3 (04:04→19:56)
[2018-10-26 05:11] LABS: INR 1.1 (0.9-1.1)
[2018-10-26 05:15] LABS: Hematocrit (blood only) 26.1 % (37-47); Hemoglobin 6.9 g/dL (12.0-16.0); Mean Corpuscular Hemoglobin 19.8 pg (25-34); Mean Corpuscular Hgb Conc 26.4 g/dL (32-36); Mean Corpuscular Volume 74.8 fL (80-100); Mean Platelet Volume 10.4 fL (7.4-10.4); Platelet Count 125 K/uL (130-400); RDW Coefficient of Variation 20.3 % (11.5-14.5); RDW Standard Deviation 54.9 fL (36.4-46.3); Red Blood Count 3.49 M/uL (4.2-5.4); White Blood Count 5.07 K/uL (4.8-10.8)
[2018-10-26 05:25] LABS: BUN Creatinine Ratio 30.5 (10-20); Calcium 8.1 mg/dl (8.5-10.1); Creatinine Clr Calc Pharmacy 97.6 ml/min; Est GFR (African American) 80.5; Est GFR (Non-African American) 69.4; Magnesium 1.9 mg/dl (1.8-2.4); Phosphorus 3.9 mg/dl (2.5-4.9); Potassium 4.5 mmol/L (3.5-5.1)
[2018-10-26 05:49] LABS: Anisocytosis Present; Basophils # (auto) 0.01 K/uL (0-0.2); Basophils % (auto) 0.2 %; Eosinophils # (auto) 0.01 K/uL (0-0.5); Eosinophils % (auto) 0.2 %; Hypochromasia Present; Immature Granulocytes # (auto) 0.04 K/uL (0.00-0.02); Immature Granulocytes % (auto) 0.8 %; Lymphocytes % (auto) 9.9 %; Monocytes # (auto) 0.14 K/uL (0.11-0.59); Monocytes % (auto) 2.8 %; Neutrophils # (auto) 4.37 K/uL (1.4-6.5); Neutrophils % (auto) 86.1 %; Ovalocytes 1+; Platelet Estimate Decreased (Normal); Polychromasia 1+
[2018-10-26 06:05] LABS: iSTAT Arterial Blood Gas HCO3 34 meg/L (19-24); iSTAT Arterial Blood Gas pCO2 38 mmHg (35-46); iSTAT Arterial Blood Gas pH 7.56 (7.35-7.45); iSTAT Arterial Blood Gas pO2 77 mmHg (80-95); iSTAT Carbon Dioxide 36 mEq/l (24-31); iSTAT FiO2 50 %; iSTAT Site Art Line
[2018-10-26] MEDS: LEVOTHYROXINE SODIUM 100 MCG TABLET PO SCH (06:11)
--- NOTE | 2018-10-26 06:30 | CT Scan Report ---
CT head/brain wo con CT DOSE: 823.94 mGycm HISTORY: Mental status change AMS TECHNIQUE: Multiaxial CT images of the head were performed without the use of intravenous contrast. A dose lowering technique was utilized adhering to the principles of ALARA. Comparison: 2017 Findings: Opacified right mastoid air cells. Edematous changes of the nasal turbinates. The calvarium and skull base are intact. The ventricles and sulci are within normal limits. There is no mass, dalia sebastian, midline shift, or acute infarct. Impression: No acute intracranial abnormality. No change from the prior study. Opacified right mastoid air cells. Edematous nasal turbinates. The above report was generated using voice recognition software. It may contain grammatical, syntax or spelling errors. Electronically signed by: Blayne Harmon M.D. 10/26/2018 6:28 AM
--- NOTE | 2018-10-26 06:36 | CT Scan Report ---
CT chest wo con CT DOSE: HISTORY: Dyspnea hypoxic TECHNIQUE: Multiaxial CT images of the chest were performed without contrast. A dose lowering techni que was utilized adhering to the principles of ALARA. COMPARISON: 10/24/2018 FINDINGS: Endotracheal tube 2.5 cm above the markel. Nasogastric tube is in the mid stomach. Small bilateral pleural effusions. Bibasilar atelectatic and/or infiltrative change. This is slightly progressive as compared to the prior study. Bronchovascular prominence bilaterally. Several small re active mediastinal and hilar nodes. Stable moderate splenomegaly. IMPRESSION: 1. Stable splenomegaly. 2. Mildly progressive bibasilar atelectatic and/or infiltrative change. 3. Endotracheal tube and nasogastric tube positions considered acceptable. The above report was generated using voice recognition software. It may contain grammatical, syntax or spelling errors. Electronically signed by: Blayne Harmon M.D. 10/26/2018 6:35 AM
--- NOTE | 2018-10-26 06:49 | CT Scan Report ---
CT SCAN OF THE ABDOMEN AND PELVIS WITHOUT CONTRAST CLINICAL HISTORY: Splenomegaly, abdominal pain, anemia. COMPARISON STUDY: 10/24/2018 TECHNIQUE: CT scan of the abdomen and pelvis was performed from the lung bases to the proximal femurs . Images are reviewed in the axial, sagittal, and coronal planes. IV contrast was not administered fo r this examination. A dose lowering technique was utilized adhering to the principles of ALARA. CT DOSE: 1803.81 mGycm FINDINGS: Lower chest: There are bibasilar airspace opacities. The heart is enlarged. Liver: The unenhanced liver is normal in size, contour, and attenuation. There is no intrahepatic anthony iary ductal dilatation. Gallbladder: Unremarkable. Spleen: The spleen is enlarged measuring 20 cm. Pancreas: Unremarkable. Adrenal glands: There is a stable 2 cm left adrenal nodule Kidneys: There is 8 mm right renal calculus. There is a lower pole left renal cortical calcification. Bowel: Evaluation of the bowel is limited in part due to the patient's very large body habitus and be am hardening artifact. A portion of bowel is not included on this study. There are no transition zone s indicate bowel obstruction. Peritoneum: There is no intraperitoneal free air or abdominal ascites. Vasculature: The abdominal aorta is normal in course and caliber. Adenopathy: None. Pelvic viscera: There is a persistent 6 cm uterine fibroid. Skeletal structures: There is a superior endplate L2 compression fracture. IMPRESSION: 1. Significantly limited study from a technical standpoint. 2. Persistent splenomegaly (20 cm) 3. No evidence of bowel obstruction. No evidence of free air 4. Stable 2 cm right adrenal nodule 5. Right-sided nephrolithiasis. No ureteral calculi identified 6. Stable 6 cm uterine fibroid Electronically signed by: Yvon Hermosillo M.D. 10/26/2018 6:48 AM
--- NOTE | 2018-10-26 06:53 | XRay Report ---
XR chest 1V portable CLINICAL HISTORY: Respiratory failure COMPARISON STUDY: 10/25/2018 FINDINGS: The heart is enlarged. There is an endotracheal tube 3.6 cm above the markel. There is a na sogastric tube which passes into the stomach. There are diffuse bilateral pulmonary airspace opacitie s, likely representing pulmonary edema. There are suspected bilateral pleural effusions. There is bib asilar airspace opacity. A coexistent pneumonia cannot be excluded.[ IMPRESSION: 1. Persistent right basilar airspace opacities, possibly representing pneumonia 2. Interval development of a pulmonary edema pattern 3. Interval placement of a endotracheal tube 36 mm above the markel 4. Interval placement of a nasogastric tube which passes into the stomach Electronically signed by: Yvon Hermosillo M.D. 10/26/2018 6:51 AM
[2018-10-26 07:28] LABS: Reticulocyte % 4.2 % (0.5-2.0); Reticulocytes # 0.15 10^6/uL (0.02-0.10)
--- NOTE | 2018-10-26 07:33 | Critical Care Progress Note ---
Date of Service October 26, 2018 Assessment & Plan (1) Admitted to intensive care unit: Subjective pt laying in bed intubated in no acute distress. Interval hx limited 2/2 to pt being intubated. Per report pt did well s/p intubation. Pt rass =0 she is alert and responsive, responded no when asked if she was in any acute distress. Physical Exam Physical Exam: General:Obese female in NAD, laying in bed intubated HEENT: normocephalic atraumatic Neck:Normal to visual inspection, inspection limited 2/2 to adiposity Chest:Symmetrical chest rise, exam limited 2/2 to intubation, rhonci present Cardiac:RRR, I did not appreciate any MRG NL S1/S2, neg calf pain GI:NL BS, no TTP MSK:moves extremities Neuro:Alert unable to assess orientation Psych:Cooperative, calm Results & Data Vital Signs (Past 12 Hours) Vital Signs Temp Pulse Pulse Resp BP BP BP 10/26/18 06:05 69 14 10/26/18 05:45 66 10/26/18 05:30 67 10/26/18 05:15 63 10/26/18 05:00 82 10/26/18 04:45 10/26/18 04:30 65 10/26/18 04:15 69 10/26/18 04:05 66 16 10/26/18 04:00 37.0 C 67 10/26/18 03:45 108 H 10/26/18 03:30 64 10/26/18 03:15 67 10/26/18 03:02 70 115/55 L 10/26/18 03:00 68 10/26/18 02:59 67 10/26/18 02:50 67 10/26/18 02:40 67 10/26/18 02:30 67 10/26/18 02:20 66 10/26/18 02:10 76 10/26/18 02:06 69 126/57 L 10/26/18 02:02 77 117/63 10/26/18 02:00 70 116/72 10/26/18 01:55 78 17 10/26/18 01:54 67 10/26/18 01:52 67 99/44 L 10/26/18 01:51 70 10/26/18 01:50 73 10/26/18 01:49 70 10/26/18 01:48 76 10/26/18 01:47 83 10/26/18 01:46 71 10/26/18 01:45 72 10/26/18 01:44 70 10/26/18 01:43 68 10/26/18 01:42 81 20 10/26/18 01:41 72 21 10/26/18 01:40 82 11 L 10/26/18 01:08 10/26/18 01:07 10/26/18 01:06 10/26/18 01:05 86 17 10/26/18 01:04 85 16 10/26/18 01:03 73 16 10/26/18 01:02 86 18 111/48 L 10/26/18 01:01 78 20 10/26/18 01:00 91 H 14 10/26/18 00:59 90 15 10/26/18 00:58 89 14 10/26/18 00:57 71 14 10/26/18 00:56 79 10 L 10/26/18 00:55 73 16 10/26/18 00:54 147 H 12 10/26/18 00:53 83 15 10/26/18 00:52 58 L 19 10/26/18 00:51 90 15 10/26/18 00:50 92 H 15 10/26/18 00:49 94 H 28 H 10/26/18 00:48 98 H 20 10/26/18 00:47 90 23 10/26/18 00:46 83 17 10/26/18 00:45 84 15 10/26/18 00:44 83 5 L 10/26/18 00:43 82 7 L 10/26/18 00:42 83 2 L 10/26/18 00:41 83 20 10/26/18 00:40 86 14 10/26/18 00:39 86 16 10/26/18 00:38 87 14 10/26/18 00:37 87 19 10/26/18 00:36 88 33 H 10/26/18 00:35 88 33 H 10/26/18 00:34 88 28 H 10/26/18 00:33 88 26 H 10/26/18 00:32 90 22 10/26/18 00:31 92 H 27 H 10/26/18 00:30 93 H 26 H 10/26/18 00:01 89 23 136/49 L 10/26/18 00:00 92 H 24 10/25/18 23:58 92 H 24 136/53 L 10/25/18 23:49 36.7 C 10/25/18 23:46 91 H 24 153/52 H 10/25/18 23:31 90 24 148/53 H 10/25/18 23:30 91 H 23 10/25/18 23:29 91 H 22 136/52 L 10/25/18 23:16 91 H 19 122/51 L 10/25/18 23:13 93 H 26 H 10/25/18 23:02 95 H 24 113/49 L 10/25/18 23:00 97 H 94 H 26 H 113/49 L 10/25/18 22:40 93 H 25 H 10/25/18 22:31 93 H 28 H 123/58 L 10/25/18 22:30 96 H 25 H 10/25/18 22:20 37.2 C 92 H 94 H 24 123/58 L 10/25/18 22:16 91 H 16 109/46 L 10/25/18 22:10 93 H 6 L 10/25/18 22:07 96 H 19 112/53 L 10/25/18 22:01 95 H 0 L 75/38 L 10/25/18 22:00 95 H 12 10/25/18 21:50 96 H 0 L 10/25/18 21:46 97 H 8 L 109/43 L 10/25/18 21:40 90 3 L 10/25/18 21:38 98 H 21 10/25/18 21:31 98 H 0 L 101/44 L 10/25/18 21:30 99 H 0 L 10/25/18 21:20 99 H 29 H 10/25/18 21:16 100 H 27 H 120/59 L 10/25/18 21:10 104 H 25 H 10/25/18 21:01 104 H 29 H 116/55 L 10/25/18 21:00 105 H 27 H 10/25/18 20:50 105 H 27 H 10/25/18 20:46 104 H 29 H 96/49 L 10/25/18 20:44 105 H 29 H 109/45 L 10/25/18 20:40 107 H 32 H 10/25/18 20:33 109 H 26 H 10/25/18 20:31 106 H 33 H 123/63 10/25/18 20:30 107 H 27 H 144/51 H 10/25/18 20:29 109 H 30 H 130/49 L 10/25/18 20:20 106 H 10/25/18 20:10 37.3 C 107 H 107 H 24 151/70 H 10/25/18 20:00 37.3 C 106 H 110 H 24 155/68 H 10/25/18 19:50 36.9 C 106 H 106 H 22 126/64 10/25/18 19:40 109 H Pulse Ox 10/26/18 06:05 100 10/26/18 05:45 98 10/26/18 05:30 98 10/26/18 05:15 99 10/26/18 05:00 97 10/26/18 04:45 99 10/26/18 04:30 98 10/26/18 04:15 99 10/26/18 04:05 100 10/26/18 04:00 99 10/26/18 03:45 100 10/26/18 03:30 98 10/26/18 03:15 98 10/26/18 03:02 98 10/26/18 03:00 98 10/26/18 02:59 10/26/18 02:50 98 10/26/18 02:40 97 10/26/18 02:30 96 10/26/18 02:20 97 10/26/18 02:10 96 10/26/18 02:06 98 10/26/18 02:02 98 10/26/18 02:00 10/26/18 01:55 98 10/26/18 01:54 93 10/26/18 01:52 93 10/26/18 01:51 92 10/26/18 01:50 95 10/26/18 01:49 94 10/26/18 01:48 95 10/26/18 01:47 95 10/26/18 01:46 94 10/26/18 01:45 95 10/26/18 01:44 95 10/26/18 01:43 94 10/26/18 01:42 95 10/26/18 01:41 95 10/26/18 01:40 95 10/26/18 01:08 97 10/26/18 01:07 98 10/26/18 01:06 98 10/26/18 01:05 100 10/26/18 01:04 100 10/26/18 01:03 100 10/26/18 01:02 99 10/26/18 01:01 100 10/26/18 01:00 100 10/26/18 00:59 100 10/26/18 00:58 100 10/26/18 00:57 100 10/26/18 00:56 100 10/26/18 00:55 100 10/26/18 00:54 100 10/26/18 00:53 100 10/26/18 00:52 100 10/26/18 00:51 100 10/26/18 00:50 100 10/26/18 00:49 100 10/26/18 00:48 100 10/26/18 00:47 100 10/26/18 00:46 100 10/26/18 00:45 100 10/26/18 00:44 100 10/26/18 00:43 100 10/26/18 00:42 10/26/18 00:41 100 10/26/18 00:40 99 10/26/18 00:39 100 10/26/18 00:38 100 10/26/18 00:37 100 10/26/18 00:36 100 10/26/18 00:35 100 10/26/18 00:34 100 10/26/18 00:33 100 10/26/18 00:32 97 10/26/18 00:31 10/26/18 00:30 10/26/18 00:01 96 10/26/18 00:00 96 10/25/18 23:58 94 10/25/18 23:49 10/25/18 23:46 93 10/25/18 23:31 94 10/25/18 23:30 94 10/25/18 23:29 93 10/25/18 23:16 95 10/25/18 23:13 93 10/25/18 23:02 91 10/25/18 23:00 93 10/25/18 22:40 90 10/25/18 22:31 93 10/25/18 22:30 89 L 10/25/18 22:20 90 10/25/18 22:16 94 10/25/18 22:10 95 10/25/18 22:07 91 10/25/18 22:01 91 10/25/18 22:00 92 10/25/18 21:50 92 10/25/18 21:46 93 10/25/18 21:40 93 10/25/18 21:38 93 10/25/18 21:31 93 10/25/18 21:30 92 10/25/18 21:20 94 10/25/18 21:16 92 10/25/18 21:10 10/25/18 21:01 10/25/18 21:00 10/25/18 20:50 10/25/18 20:46 89 L 10/25/18 20:44 90 10/25/18 20:40 91 10/25/18 20:33 89 L 10/25/18 20:31 89 L 10/25/18 20:30 10/25/18 20:29 88 L 10/25/18 20:20 10/25/18 20:10 10/25/18 20:00 10/25/18 19:50 10/25/18 19:40 Laboratory Results 10/26/18 10/26/18 10/26/18 Range/Units 11:27 10:20 08:06 WBC (4.8-10.8) K/uL RBC (4.2-5.4) M/uL Hgb (12.0-16.0) g/dL Hct (37-47) % MCV (80-100) fL MCH (25-34) pg MCHC (32-36) g/dL RDW Std Deviation (36.4-46.3) fL RDW Coeff of Duy (11.5-14.5) % Plt Count (130-400) K/uL MPV (7.4-10.4) fL Immature Gran % (Auto) % Neut % (Auto) % Lymph % (Auto) % Delta % (Auto) % Eos % (Auto) % Baso % (Auto) % Reticulocyte % (Auto) (0.5-2.0) % Immature Gran # (Auto) (0.00-0.02) K/uL Neut # (Auto) (1.4-6.5) K/uL Lymph # (Auto) (1.2-3.4) K/uL Delta # (Auto) (0.11-0.59) K/uL Eos # (Auto) (0-0.5) K/uL Baso # (Auto) (0-0.2) K/uL Reticulocyte # (0.02-0.10) 10^6/uL Platelet Estimate (Normal) Polychromasia Hypochromasia Anisocytosis Ovalocytes Stomatocytes Peripher Smr Path Cons PT (9.0-12.0) Seconds INR (0.9-1.1) Sample Site POC pH (7.35-7.45) POC pCO2 (35-46) mmHg POC pO2 (80-95) mmHg POC HCO3 (19-24) c[place]orro/L POC Total CO2 (24-31) mEq/l POC Base Excess (-9-1.8) [place]/L ABG pH (Temp Correct) (7.35-7.45) ABG pCO2 (Temp Corrct (35-46) mmHg POC ABG pO2 at Pt Temp POC ABG O2 Sat (90-95) % Bill Test O2 Delivery Device POC O2 Rate Minute Ventilation POC FiO2 % Tidal Volume PEEP IPAP Sodium (136-145) mmol/L Potassium (3.5-5.1) mmol/L Chloride (98-107) mmol/L Carbon Dioxide (21-32) mmol/L Anion Gap (3-11) BUN (7-18) mg/dl Creatinine (0.6-1.2) mg/dl Est Cr Clr Drug Dosing ml/min Est GFR ( Amer) Est GFR (Non-Af Amer) BUN/Creatinine Ratio (10-20) Glucose (70-99) mg/dl POC Glucose 201 H 220 H 233 H (70-99) Lactate (0.4-2.0) mmol/L Calcium (8.5-10.1) mg/dl Phosphorus (2.5-4.9) mg/dl Magnesium (1.8-2.4) mg/dl Total Bilirubin (0.2-1) mg/dl Direct Bilirubin (0-0.2) mg/dl AST (15-37) U/L ALT (12-78) U/L Alkaline Phosphatase (45-117) U/L Troponin I (0-0.045) ng/ml Total Protein (6.4-8.2) gm/dl Albumin (3.4-5.0) gm/dl Urine Color Urine Appearance (Clear) Urine pH (4.5-7.5) Ur Specific [place] (1.000-1.030) Urine Protein (Negative) Urine Glucose (UA) (Negative) Urine Ketones (Negative) Urine Blood (Negative) Urine Nitrite (Negative) Urine Bilirubin (Negative) Urine Urobilinogen (Negative) Ur Leukocyte Esterase (Negative) Urine WBC (Auto) (0-5) /hpf Urine RBC (Auto) (0-4) /hpf U Hyaline Cast (Auto) (0-5) /lpf U Epithel Cells (Auto) (0-5) /lpf Urine Bacteria (Auto) (Negative) Ur Renal Epithelial Cell Nasal Screen MRSA (PCR) (Negative) IgA (70-400) mg/dl Blood Type Antibody Screen Crossmatch Transfusion React Date Transfusion React Time Tx React Symptoms Reaction Clerical Check Lab Clerical Err Check React Component Return Volume Returned Pre-Trans Blood Type Pre-Trans Vis Hemolysis Pre-Trans EDMUND (Negative) Pre-Trans EDMUND IgG (Negative) Pre-Trans EDMUND Poly (Negative) Pre-Trans EDMUND C3b, C3d (Negative) Post-Trans Blood Type Post-Tx Visible Hemolys Post-Trans EDMUND (Negative) Post-Trans EDUMND IgG (Negative) Post-Trans EDMUND Poly (Negative) Post-Trans EDMUND C3b, C3d (Negative) Post-Trans Ur Hemoglobin Reaction Path Interpret Transfusion Serv Com 10/26/18 10/26/18 10/26/18 Range/Units 05:51 04:32 04:32 WBC (4.8-10.8) K/uL RBC (4.2-5.4) M/uL Hgb (12.0-16.0) g/dL Hct (37-47) % MCV (80-100) fL MCH (25-34) pg MCHC (32-36) g/dL RDW Std Deviation (36.4-46.3) fL RDW Coeff of Duy (11.5-14.5) % Plt Count (130-400) K/uL MPV (7.4-10.4) fL Immature Gran % (Auto) % Neut % (Auto) % Lymph % (Auto) % Delta % (Auto) % Eos % (Auto) % Baso % (Auto) % Reticulocyte % (Auto) (0.5-2.0) % Immature Gran # (Auto) (0.00-0.02) K/uL Neut # (Auto) (1.4-6.5) K/uL Lymph # (Auto) (1.2-3.4) K/uL Delta # (Auto) (0.11-0.59) K/uL Eos # (Auto) (0-0.5) K/uL Baso # (Auto) (0-0.2) K/uL Reticulocyte # (0.02-0.10) 10^6/uL Platelet Estimate (Normal) Polychromasia Hypochromasia Anisocytosis Ovalocytes Stomatocytes Peripher Smr Path Cons PT 11.0 (9.0-12.0) Seconds INR 1.1 (0.9-1.1) Sample Site Art Line POC pH 7.56 H* (7.35-7.45) POC pCO2 38 (35-46) mmHg POC pO2 77 L (80-95) mmHg POC HCO3 34 H (19-24) c[place]/L POC Total CO2 36 H (24-31) mEq/l POC Base Excess 12.0 H (-9-1.8) [place]/L ABG pH (Temp Correct) (7.35-7.45) ABG pCO2 (Temp Corrct (35-46) mmHg POC ABG pO2 at Pt Temp POC ABG O2 Sat 97.0 H (90-95) % Bill Test NA O2 Delivery Device Ventilator POC O2 Rate 16 Minute Ventilation 8.8 POC FiO2 50 % Tidal Volume 550 PEEP 8 IPAP Sodium 141 (136-145) mmol/L Potassium 4.5 D (3.5-5.1) mmol/L Chloride 100 (98-107) mmol/L Carbon Dioxide 36 H (21-32) mmol/L Anion Gap 5.0 (3-11) BUN 26 H (7-18) mg/dl Creatinine 0.86 (0.6-1.2) mg/dl Est Cr Clr Drug Dosing 97.6 ml/min Est GFR ( Amer) 80.5 Est GFR (Non-Af Amer) 69.4 BUN/Creatinine Ratio 30.5 H (10-20) Glucose 212 H (70-99) mg/dl POC Glucose (70-99) Lactate (0.4-2.0) mmol/L Calcium 8.1 L (8.5-10.1) mg/dl Phosphorus 3.9 (2.5-4.9) mg/dl Magnesium 1.9 (1.8-2.4) mg/dl Total Bilirubin (0.2-1) mg/dl Direct Bilirubin (0-0.2) mg/dl AST (15-37) U/L ALT (12-78) U/L Alkaline Phosphatase (45-117) U/L Troponin I (0-0.045) ng/ml Total Protein (6.4-8.2) gm/dl Albumin (3.4-5.0) gm/dl Urine Color Urine Appearance (Clear) Urine pH (4.5-7.5) Ur Specific [place] (1.000-1.030) Urine Protein (Negative) Urine Glucose (UA) (Negative) Urine Ketones (Negative) Urine Blood (Negative) Urine Nitrite (Negative) Urine Bilirubin (Negative) Urine Urobilinogen (Negative) Ur Leukocyte Esterase (Negative) Urine WBC (Auto) (0-5) /hpf Urine RBC (Auto) (0-4) /hpf U Hyaline Cast (Auto) (0-5) /lpf U Epithel Cells (Auto) (0-5) /lpf Urine Bacteria (Auto) (Negative) Ur Renal Epithelial Cell Nasal Screen MRSA (PCR) (Negative) IgA (70-400) mg/dl Blood Type Antibody Screen Crossmatch Transfusion React Date Transfusion React Time Tx React Symptoms Reaction Clerical Check Lab Clerical Err Check React Component Return Volume Returned Pre-Trans Blood Type Pre-Trans Vis Hemolysis Pre-Trans EDMUND (Negative) Pre-Trans EDMUND IgG (Negative) Pre-Trans EDMUND Poly (Negative) Pre-Trans EDMUND C3b, C3d (Negative) Post-Trans Blood Type Post-Tx Visible Hemolys Post-Trans EDMUND (Negative) Post-Trans EDMUND IgG (Negative) Post-Trans EDMUND Poly (Negative) Post-Trans EDMUND C3b, C3d (Negative) Post-Trans Ur Hemoglobin Reaction Path Interpret Transfusion Serv Com 10/26/18 10/26/18 10/26/18 Range/Units 04:32 03:47 02:38 WBC 5.07 (4.8-10.8) K/uL RBC 3.49 L (4.2-5.4) M/uL Hgb 6.9 L* (12.0-16.0) g/dL Hct 26.1 L (37-47) % MCV 74.8 L (80-100) fL MCH 19.8 L (25-34) pg MCHC 26.4 L (32-36) g/dL RDW Std Deviation 54.9 H (36.4-46.3) fL RDW Coeff of Duy 20.3 H (11.5-14.5) % Plt Count 125 L (130-400) K/uL MPV 10.4 (7.4-10.4) fL Immature Gran % (Auto) 0.8 % Neut % (Auto) 86.1 % Lymph % (Auto) 9.9 % Delta % (Auto) 2.8 % Eos % (Auto) 0.2 % Baso % (Auto) 0.2 % Reticulocyte % (Auto) 4.2 H (0.5-2.0) % Immature Gran # (Auto) 0.04 H (0.00-0.02) K/uL Neut # (Auto) 4.37 (1.4-6.5) K/uL Lymph # (Auto) 0.50 L (1.2-3.4) K/uL Delta # (Auto) 0.14 (0.11-0.59) K/uL Eos # (Auto) 0.01 (0-0.5) K/uL Baso # (Auto) 0.01 (0-0.2) K/uL Reticulocyte # 0.15 H (0.02-0.10) 10^6/uL Platelet Estimate Decreased L (Normal) Polychromasia 1+ Hypochromasia Present Anisocytosis Present Ovalocytes 1+ Stomatocytes Peripher Smr Path Cons PT (9.0-12.0) Seconds INR (0.9-1.1) Sample Site Art Line POC pH 7.49 H (7.35-7.45) POC pCO2 47 H (35-46) mmHg POC pO2 69 L (80-95) mmHg POC HCO3 35 H (19-24) [place]/L POC Total CO2 37 H (24-31) mEq/l POC Base Excess 12.0 H (-9-1.8) [place]/L ABG pH (Temp Correct) 7.490 H (7.35-7.45) ABG pCO2 (Temp Corrct 46 (35-46) mmHg POC ABG pO2 at Pt Temp 67 POC ABG O2 Sat 94.0 (90-95) % Bill Test NA O2 Delivery Device Ventilator POC O2 Rate 16 Minute Ventilation 8.6 POC FiO2 50 % Tidal Volume 550 PEEP 8 IPAP Sodium (136-145) mmol/L Potassium (3.5-5.1) mmol/L Chloride (98-107) mmol/L Carbon Dioxide (21-32) mmol/L Anion Gap (3-11) BUN (7-18) mg/dl Creatinine (0.6-1.2) mg/dl Est Cr Clr Drug Dosing ml/min Est GFR ( Amer) Est GFR (Non-Af Amer) BUN/Creatinine Ratio (10-20) Glucose (70-99) mg/dl POC Glucose 200 H (70-99) Lactate (0.4-2.0) mmol/L Calcium (8.5-10.1) mg/dl Phosphorus (2.5-4.9) mg/dl Magnesium (1.8-2.4) mg/dl Total Bilirubin (0.2-1) mg/dl Direct Bilirubin (0-0.2) mg/dl AST (15-37) U/L ALT (12-78) U/L Alkaline Phosphatase (45-117) U/L Troponin I (0-0.045) ng/ml Total Protein (6.4-8.2) gm/dl Albumin (3.4-5.0) gm/dl Urine Color Urine Appearance (Clear) Urine pH (4.5-7.5) Ur Specific [place] (1.000-1.030) Urine Protein (Negative) Urine Glucose (UA) (Negative) Urine Ketones (Negative) Urine Blood (Negative) Urine Nitrite (Negative) Urine Bilirubin (Negative) Urine Urobilinogen (Negative) Ur Leukocyte Esterase (Negative) Urine WBC (Auto) (0-5) /hpf Urine RBC (Auto) (0-4) /hpf U Hyaline Cast (Auto) (0-5) /lpf U Epithel Cells (Auto) (0-5) /lpf Urine Bacteria (Auto) (Negative) Ur Renal Epithelial Cell Nasal Screen MRSA (PCR) (Negative) IgA (70-400) mg/dl Blood Type Antibody Screen Crossmatch Transfusion React Date Transfusion React Time Tx React Symptoms Reaction Clerical Check Lab Clerical Err Check React Component Return Volume Returned Pre-Trans Blood Type Pre-Trans Vis Hemolysis Pre-Trans EDMUND (Negative) Pre-Trans EDMUND IgG (Negative) Pre-Trans EDMUND Poly (Negative) Pre-Trans EDMUND C3b, C3d (Negative) Post-Trans Blood Type Post-Tx Visible Hemolys Post-Trans EDMUND (Negative) Post-Trans EDMUND IgG (Negative) Post-Trans EDMUND Poly (Negative) Post-Trans EDMUND C3b, C3d (Negative) Post-Trans Ur Hemoglobin Reaction Path Interpret Transfusion Serv Com 10/26/18 10/26/18 10/25/18 Range/Units 01:59 00:30 23:51 WBC (4.8-10.8) K/uL RBC (4.2-5.4) M/uL Hgb (12.0-16.0) g/dL Hct (37-47) % MCV (80-100) fL MCH (25-34) pg MCHC (32-36) g/dL RDW Std Deviation (36.4-46.3) fL RDW Coeff of Duy (11.5-14.5) % Plt Count (130-400) K/uL MPV (7.4-10.4) fL Immature Gran % (Auto) % Neut % (Auto) % Lymph % (Auto) % Delta % (Auto) % Eos % (Auto) % Baso % (Auto) % Reticulocyte % (Auto) (0.5-2.0) % Immature Gran # (Auto) (0.00-0.02) K/uL Neut # (Auto) (1.4-6.5) K/uL Lymph # (Auto) (1.2-3.4) K/uL Delta # (Auto) (0.11-0.59) K/uL Eos # (Auto) (0-0.5) K/uL Baso # (Auto) (0-0.2) K/uL Reticulocyte # (0.02-0.10) 10^6/uL Platelet Estimate (Normal) Polychromasia Hypochromasia Anisocytosis Ovalocytes Stomatocytes Peripher Smr Path Cons PT (9.0-12.0) Seconds INR (0.9-1.1) Sample Site Art Line POC pH 7.21 L (7.35-7.45) POC pCO2 102 H (35-46) mmHg POC pO2 90 (80-95) mmHg POC HCO3 41 H (19-24) [place]/L POC Total CO2 > 40 H* (24-31) mEq/l POC Base Excess 13.0 H (-9-1.8) [place]/L ABG pH (Temp Correct) 7.210 L (7.35-7.45) ABG pCO2 (Temp Corrct 101 H (35-46) mmHg POC ABG pO2 at Pt Temp 88 POC ABG O2 Sat 94.0 (90-95) % Bill Test NA O2 Delivery Device BIPAP POC O2 Rate 21 Minute Ventilation POC FiO2 35 % Tidal Volume PEEP IPAP 22 Sodium (136-145) mmol/L Potassium (3.5-5.1) mmol/L Chloride (98-107) mmol/L Carbon Dioxide (21-32) mmol/L Anion Gap (3-11) BUN (7-18) mg/dl Creatinine (0.6-1.2) mg/dl Est Cr Clr Drug Dosing ml/min Est GFR ( Amer) Est GFR (Non-Af Amer) BUN/Creatinine Ratio (10-20) Glucose (70-99) mg/dl POC Glucose 132 H (70-99) Lactate (0.4-2.0) mmol/L Calcium (8.5-10.1) mg/dl Phosphorus (2.5-4.9) mg/dl Magnesium (1.8-2.4) mg/dl Total Bilirubin (0.2-1) mg/dl Direct Bilirubin (0-0.2) mg/dl AST (15-37) U/L ALT (12-78) U/L Alkaline Phosphatase (45-117) U/L Troponin I (0-0.045) ng/ml Total Protein (6.4-8.2) gm/dl Albumin (3.4-5.0) gm/dl Urine Color Yellow Urine Appearance Clear (Clear) Urine pH 5.5 (4.5-7.5) Ur Specific [place] 1.022 (1.000-1.030) Urine Protein 1+ H (Negative) Urine Glucose (UA) Negative (Negative) Urine Ketones Negative (Negative) Urine Blood Negative (Negative) Urine Nitrite Negative (Negative) Urine Bilirubin Negative (Negative) Urine Urobilinogen Negative (Negative) Ur Leukocyte Esterase 1+ H (Negative) Urine WBC (Auto) 5-10 H (0-5) /hpf Urine RBC (Auto) 0-4 (0-4) /hpf U Hyaline Cast (Auto) 1-5 (0-5) /lpf U Epithel Cells (Auto) >30 H (0-5) /lpf Urine Bacteria (Auto) Negative (Negative) Ur Renal Epithelial Cell Not Reportable Nasal Screen MRSA (PCR) (Negative) IgA (70-400) mg/dl Blood Type Antibody Screen Crossmatch Transfusion React Date Transfusion React Time Tx React Symptoms Reaction Clerical Check Lab Clerical Err Check React Component Return Volume Returned Pre-Trans Blood Type Pre-Trans Vis Hemolysis Pre-Trans EDMUND (Negative) Pre-Trans EDMUND IgG (Negative) Pre-Trans EDMUND Poly (Negative) Pre-Trans EDMUND C3b, C3d (Negative) Post-Trans Blood Type Post-Tx Visible Hemolys Post-Trans EDMUND (Negative) Post-Trans EDMUND IgG (Negative) Post-Trans EDMUND Poly (Negative) Post-Trans EDMUND C3b, C3d (Negative) Post-Trans Ur Hemoglobin Reaction Path Interpret Transfusion Serv Com 10/25/18 10/25/18 10/25/18 Range/Units 23:02 21:51 21:16 WBC (4.8-10.8) K/uL RBC (4.2-5.4) M/uL Hgb (12.0-16.0) g/dL Hct (37-47) % MCV (80-100) fL MCH (25-34) pg MCHC (32-36) g/dL RDW Std Deviation (36.4-46.3) fL RDW Coeff of Duy (11.5-14.5) % Plt Count (130-400) K/uL MPV (7.4-10.4) fL Immature Gran % (Auto) % Neut % (Auto) % Lymph % (Auto) % Delta % (Auto) % Eos % (Auto) % Baso % (Auto) % Reticulocyte % (Auto) (0.5-2.0) % Immature Gran # (Auto) (0.00-0.02) K/uL Neut # (Auto) (1.4-6.5) K/uL Lymph # (Auto) (1.2-3.4) K/uL Delta # (Auto) (0.11-0.59) K/uL Eos # (Auto) (0-0.5) K/uL Baso # (Auto) (0-0.2) K/uL Reticulocyte # (0.02-0.10) 10^6/uL Platelet Estimate (Normal) Polychromasia Hypochromasia Anisocytosis Ovalocytes Stomatocytes Peripher Smr Path Cons PT (9.0-12.0) Seconds INR (0.9-1.1) Sample Site R Radial POC pH 7.24 L (7.35-7.45) POC pCO2 95 H (35-46) mmHg POC pO2 84 (80-95) mmHg POC HCO3 41 H (19-24) c[place]orro/L POC Total CO2 > 40 H* (24-31) mEq/l POC Base Excess 13.0 H (-9-1.8) [place]orro/L ABG pH (Temp Correct) 7.239 L (7.35-7.45) ABG pCO2 (Temp Corrct 95 H (35-46) mmHg POC ABG pO2 at Pt Temp 85 POC ABG O2 Sat 93.0 (90-95) % Bill Test NA O2 Delivery Device BIPAP POC O2 Rate 26 Minute Ventilation POC FiO2 35 % Tidal Volume PEEP IPAP 20 Sodium (136-145) mmol/L Potassium (3.5-5.1) mmol/L Chloride (98-107) mmol/L Carbon Dioxide (21-32) mmol/L Anion Gap (3-11) BUN (7-18) mg/dl Creatinine (0.6-1.2) mg/dl Est Cr Clr Drug Dosing ml/min Est GFR ( Amer) Est GFR (Non-Af Amer) BUN/Creatinine Ratio (10-20) Glucose (70-99) mg/dl POC Glucose 130 H (70-99) Lactate 0.7 (0.4-2.0) mmol/L Calcium (8.5-10.1) mg/dl Phosphorus (2.5-4.9) mg/dl Magnesium (1.8-2.4) mg/dl Total Bilirubin (0.2-1) mg/dl Direct Bilirubin (0-0.2) mg/dl AST (15-37) U/L ALT (12-78) U/L Alkaline Phosphatase (45-117) U/L Troponin I (0-0.045) ng/ml Total Protein (6.4-8.2) gm/dl Albumin (3.4-5.0) gm/dl Urine Color Urine Appearance (Clear) Urine pH (4.5-7.5) Ur Specific [place] (1.000-1.030) Urine Protein (Negative) Urine Glucose (UA) (Negative) Urine Ketones (Negative) Urine Blood (Negative) Urine Nitrite (Negative) Urine Bilirubin (Negative) Urine Urobilinogen (Negative) Ur Leukocyte Esterase (Negative) Urine WBC (Auto) (0-5) /hpf Urine RBC (Auto) (0-4) /hpf U Hyaline Cast (Auto) (0-5) /lpf U Epithel Cells (Auto) (0-5) /lpf Urine Bacteria (Auto) (Negative) Ur Renal Epithelial Cell Nasal Screen MRSA (PCR) (Negative) IgA (70-400) mg/dl Blood Type Antibody Screen Crossmatch Transfusion React Date Transfusion React Time Tx React Symptoms Reaction Clerical Check Lab Clerical Err Check React Component Return Volume Returned Pre-Trans Blood Type Pre-Trans Vis Hemolysis Pre-Trans EDMUND (Negative) Pre-Trans EDM[facility]D IgG (Negative) Pre-Trans EDMUND Poly (Negative) Pre-Trans EDMUND C3b, C3d (Negative) Post-Trans Blood Type Post-Tx Visible Hemolys Post-Trans EDMUND (Negative) Post-Trans EDMUND IgG (Negative) Post-Trans EDMUND Poly (Negative) Post-Trans EDMUND C3b, C3d (Negative) Post-Trans Ur Hemoglobin Reaction Path Interpret Transfusion Serv Com 10/25/18 10/25/18 10/25/18 Range/Units 21:16 21:16 21:15 WBC 10.78 (4.8-10.8) K/uL RBC 3.88 L (4.2-5.4) M/uL Hgb 7.9 L (12.0-16.0) g/dL Hct 29.9 L (37-47) % MCV 77.1 L (80-100) fL MCH 20.4 L (25-34) pg MCHC 26.4 L (32-36) g/dL RDW Std Deviation 56.8 H (36.4-46.3) fL RDW Coeff of Duy 20.7 H (11.5-14.5) % Plt Count 151 (130-400) K/uL MPV (7.4-10.4) fL Immature Gran % (Auto) 1.3 % Neut % (Auto) 64.0 % Lymph % (Auto) 21.1 % Delta % (Auto) 11.2 % Eos % (Auto) 1.9 % Baso % (Auto) 0.5 % Reticulocyte % (Auto) (0.5-2.0) % Immature Gran # (Auto) 0.14 H (0.00-0.02) K/uL Neut # (Auto) 6.91 H (1.4-6.5) K/uL Lymph # (Auto) 2.27 (1.2-3.4) K/uL Delta # (Auto) 1.21 H (0.11-0.59) K/uL Eos # (Auto) 0.20 (0-0.5) K/uL Baso # (Auto) 0.05 (0-0.2) K/uL Reticulocyte # (0.02-0.10) 10^6/uL Platelet Estimate (Normal) Polychromasia 1+ Hypochromasia Present Anisocytosis Present Ovalocytes Stomatocytes 1+ Peripher Smr Path Cons PT (9.0-12.0) Seconds INR (0.9-1.1) Sample Site R Radial POC pH 7.20 L (7.35-7.45) POC pCO2 105 H (35-46) mmHg POC pO2 78 L (80-95) mmHg POC HCO3 41 H (19-24) c[place]orro/L POC Total CO2 > 40 H* (24-31) mEq/l POC Base Excess 13.0 H (-9-1.8) [place]/L ABG pH (Temp Correct) 7.194 L* (7.35-7.45) ABG pCO2 (Temp Corrct 106 H (35-46) mmHg POC ABG pO2 at Pt Temp 79 POC ABG O2 Sat 90.0 (90-95) % Bill Test Pass O2 Delivery Device Cannula POC O2 Rate Minute Ventilation POC FiO2 % Tidal Volume PEEP IPAP Sodium 143 (136-145) mmol/L Potassium 3.6 D (3.5-5.1) mmol/L Chloride 101 (98-107) mmol/L Carbon Dioxide 38 H (21-32) mmol/L Anion Gap 4.0 (3-11) BUN 21 H (7-18) mg/dl Creatinine 0.89 (0.6-1.2) mg/dl Est Cr Clr Drug Dosing 94.3 ml/min Est GFR ( Amer) 77.2 Est GFR (Non-Af Amer) 66.6 BUN/Creatinine Ratio 23.7 H (10-20) Glucose 114 H (70-99) mg/dl POC Glucose (70-99) Lactate (0.4-2.0) mmol/L Calcium 8.5 (8.5-10.1) mg/dl Phosphorus 4.6 D (2.5-4.9) mg/dl Magnesium 2.2 (1.8-2.4) mg/dl Total Bilirubin 0.2 (0.2-1) mg/dl Direct Bilirubin < 0.1 (0-0.2) mg/dl AST 11 L (15-37) U/L ALT 14 (12-78) U/L Alkaline Phosphatase 87 (45-117) U/L Troponin I < 0.015 (0-0.045) ng/ml Total Protein 6.8 (6.4-8.2) gm/dl Albumin 3.0 L (3.4-5.0) gm/dl Urine Color Urine Appearance (Clear) Urine pH (4.5-7.5) Ur Specific [place] (1.000-1.030) Urine Protein (Negative) Urine Glucose (UA) (Negative) Urine Ketones (Negative) Urine Blood (Negative) Urine Nitrite (Negative) Urine Bilirubin (Negative) Urine Urobilinogen (Negative) Ur Leukocyte Esterase (Negative) Urine WBC (Auto) (0-5) /hpf Urine RBC (Auto) (0-4) /hpf U Hyaline Cast (Auto) (0-5) /lpf U Epithel Cells (Auto) (0-5) /lpf Urine Bacteria (Auto) (Negative) Ur Renal Epithelial Cell Nasal Screen MRSA (PCR) (Negative) IgA (70-400) mg/dl Blood Type Antibody Screen Crossmatch Transfusion React Date Transfusion React Time Tx React Symptoms Reaction Clerical Check Lab Clerical Err Check React Component Return Volume Returned Pre-Trans Blood Type Pre-Trans Vis Hemolysis Pre-Trans EDMUND (Negative) Pre-Trans EDMUND IgG (Negative) Pre-Trans EDMUND Poly (Negative) Pre-Trans EDMUND C3b, C3d (Negative) Post-Trans Blood Type Post-Tx Visible Hemolys Post-Trans EDMUND (Negative) Post-Trans EDMUND IgG (Negative) Post-Trans EDMUND Poly (Negative) Post-Trans EDMUND C3b, C3d (Negative) Post-Trans Ur Hemoglobin Reaction Path Interpret Transfusion Serv Com 10/25/18 10/25/18 10/25/18 Range/Units 20:35 20:00 19:47 WBC (4.8-10.8) K/uL RBC (4.2-5.4) M/uL Hgb (12.0-16.0) g/dL Hct (37-47) % MCV (80-100) fL MCH (25-34) pg MCHC (32-36) g/dL RDW Std Deviation (36.4-46.3) fL RDW Coeff of Duy (11.5-14.5) % Plt Count (130-400) K/uL MPV (7.4-10.4) fL Immature Gran % (Auto) % Neut % (Auto) % Lymph % (Auto) % Delta % (Auto) % Eos % (Auto) % Baso % (Auto) % Reticulocyte % (Auto) (0.5-2.0) % Immature Gran # (Auto) (0.00-0.02) K/uL Neut # (Auto) (1.4-6.5) K/uL Lymph # (Auto) (1.2-3.4) K/uL Delta # (Auto) (0.11-0.59) K/uL Eos # (Auto) (0-0.5) K/uL Baso # (Auto) (0-0.2) K/uL Reticulocyte # (0.02-0.10) 10^6/uL Platelet Estimate (Normal) Polychromasia Hypochromasia Anisocytosis Ovalocytes Stomatocytes Peripher Smr Path Cons PT (9.0-12.0) Seconds INR (0.9-1.1) Sample Site POC pH (7.35-7.45) POC pCO2 (35-46) mmHg POC pO2 (80-95) mmHg POC HCO3 (19-24) cachorro/L POC Total CO2 (24-31) mEq/l POC Base Excess (-9-1.8) cachorro/L ABG pH (Temp Correct) (7.35-7.45) ABG pCO2 (Temp Corrct (35-46) mmHg POC ABG pO2 at Pt Temp POC ABG O2 Sat (90-95) % Bill Test O2 Delivery Device POC O2 Rate Minute Ventilation POC FiO2 % Tidal Volume PEEP IPAP Sodium (136-145) mmol/L Potassium (3.5-5.1) mmol/L Chloride (98-107) mmol/L Carbon Dioxide (21-32) mmol/L Anion Gap (3-11) BUN (7-18) mg/dl Creatinine (0.6-1.2) mg/dl Est Cr Clr Drug Dosing ml/min Est GFR ( Amer) Est GFR (Non-Af Amer) BUN/Creatinine Ratio (10-20) Glucose (70-99) mg/dl POC Glucose (70-99) Lactate (0.4-2.0) mmol/L Calcium (8.5-10.1) mg/dl Phosphorus (2.5-4.9) mg/dl Magnesium (1.8-2.4) mg/dl Total Bilirubin (0.2-1) mg/dl Direct Bilirubin (0-0.2) mg/dl AST (15-37) U/L ALT (12-78) U/L Alkaline Phosphatase (45-117) U/L Troponin I (0-0.045) ng/ml Total Protein (6.4-8.2) gm/dl Albumin (3.4-5.0) gm/dl Urine Color Urine Appearance (Clear) Urine pH (4.5-7.5) Ur Specific [place] (1.000-1.030) Urine Protein (Negative) Urine Glucose (UA) (Negative) Urine Ketones (Negative) Urine Blood Negative (Negative) Urine Nitrite (Negative) Urine Bilirubin (Negative) Urine Urobilinogen (Negative) Ur Leukocyte Esterase (Negative) Urine WBC (Auto) (0-5) /hpf Urine RBC (Auto) 0-4 (0-4) /hpf U Hyaline Cast (Auto) (0-5) /lpf U Epithel Cells (Auto) (0-5) /lpf Urine Bacteria (Auto) (Negative) Ur Renal Epithelial Cell Nasal Screen MRSA (PCR) Negative (Negative) IgA (70-400) mg/dl Blood Type Antibody Screen Crossmatch Transfusion React Date 10/25/18 Transfusion React Time 1845 Tx React Symptoms Reaction Clerical Check None Found Lab Clerical Err Check None Found React Component Return PC LEUKO Volume Returned 301 Pre-Trans Blood Type O POSITIVE Pre-Trans Vis Hemolysis No Pre-Trans EDMUND Negative (Negative) Pre-Trans EDMUND IgG Neg (Negative) Pre-Trans EDMUND Poly Neg (Negative) Pre-Trans EDMUND C3b, C3d Neg (Negative) Post-Trans Blood Type O POSITIVE Post-Tx Visible Hemolys No Post-Trans EDMUND Negative (Negative) Post-Trans EDMUND IgG Neg (Negative) Post-Trans EDMUND Poly Neg (Negative) Post-Trans EDMUND C3b, C3d Neg (Negative) Post-Trans Ur Hemoglobin Negative for Blood Reaction Path Interpret Transfusion Serv Com 10/25/18 10/25/18 10/25/18 Range/Units 16:20 14:54 05:50 WBC (4.8-10.8) K/uL RBC (4.2-5.4) M/uL Hgb 7.3 L (12.0-16.0) g/dL Hct 27.2 L (37-47) % MCV (80-100) fL MCH (25-34) pg MCHC (32-36) g/dL RDW Std Deviation (36.4-46.3) fL RDW Coeff of Duy (11.5-14.5) % Plt Count (130-400) K/uL MPV (7.4-10.4) fL Immature Gran % (Auto) % Neut % (Auto) % Lymph % (Auto) % Delta % (Auto) % Eos % (Auto) % Baso % (Auto) % Reticulocyte % (Auto) (0.5-2.0) % Immature Gran # (Auto) (0.00-0.02) K/uL Neut # (Auto) (1.4-6.5) K/uL Lymph # (Auto) (1.2-3.4) K/uL Delta # (Auto) (0.11-0.59) K/uL Eos # (Auto) (0-0.5) K/uL Baso # (Auto) (0-0.2) K/uL Reticulocyte # (0.02-0.10) 10^6/uL Platelet Estimate (Normal) Polychromasia Hypochromasia Anisocytosis Ovalocytes Stomatocytes Peripher Smr Path Cons PT (9.0-12.0) Seconds INR (0.9-1.1) Sample Site POC pH (7.35-7.45) POC pCO2 (35-46) mmHg POC pO2 (80-95) mmHg POC HCO3 (19-24) cachorro/L POC Total CO2 (24-31) mEq/l POC Base Excess (-9-1.8) c[place]orro/L ABG pH (Temp Correct) (7.35-7.45) ABG pCO2 (Temp Corrct (35-46) mmHg POC ABG pO2 at Pt Temp POC ABG O2 Sat (90-95) % Bill Test O2 Delivery Device POC O2 Rate Minute Ventilation POC FiO2 % Tidal Volume PEEP IPAP Sodium (136-145) mmol/L Potassium (3.5-5.1) mmol/L Chloride (98-107) mmol/L Carbon Dioxide (21-32) mmol/L Anion Gap (3-11) BUN (7-18) mg/dl Creatinine (0.6-1.2) mg/dl Est Cr Clr Drug Dosing ml/min Est GFR ( Amer) Est GFR (Non-Af Amer) BUN/Creatinine Ratio (10-20) Glucose (70-99) mg/dl POC Glucose 157 H (70-99) Lactate (0.4-2.0) mmol/L Calcium (8.5-10.1) mg/dl Phosphorus (2.5-4.9) mg/dl Magnesium (1.8-2.4) mg/dl Total Bilirubin (0.2-1) mg/dl Direct Bilirubin (0-0.2) mg/dl AST (15-37) U/L ALT (12-78) U/L Alkaline Phosphatase (45-117) U/L Troponin I (0-0.045) ng/ml Total Protein (6.4-8.2) gm/dl Albumin (3.4-5.0) gm/dl Urine Color Urine Appearance (Clear) Urine pH (4.5-7.5) Ur Specific [place] (1.000-1.030) Urine Protein (Negative) Urine Glucose (UA) (Negative) Urine Ketones (Negative) Urine Blood (Negative) Urine Nitrite (Negative) Urine Bilirubin (Negative) Urine Urobilinogen (Negative) Ur Leukocyte Esterase (Negative) Urine WBC (Auto) (0-5) /hpf Urine RBC (Auto) (0-4) /hpf U Hyaline Cast (Auto) (0-5) /lpf U Epithel Cells (Auto) (0-5) /lpf Urine Bacteria (Auto) (Negative) Ur Renal Epithelial Cell Nasal Screen MRSA (PCR) (Negative) IgA 190.0 (70-400) mg/dl Blood Type Antibody Screen Crossmatch Transfusion React Date Transfusion React Time Tx React Symptoms Reaction Clerical Check Lab Clerical Err Check React Component Return Volume Returned Pre-Trans Blood Type Pre-Trans Vis Hemolysis Pre-Trans EDMUND (Negative) Pre-Trans EDMUND IgG (Negative) Pre-Trans EDMUND Poly (Negative) Pre-Trans EDMUND C3b, C3d (Negative) Post-Trans Blood Type Post-Tx Visible Hemolys Post-Trans EDMUND (Negative) Post-Trans EDMUND IgG (Negative) Post-Trans EDMUND Poly (Negative) Post-Trans EDMUND C3b, C3d (Negative) Post-Trans Ur Hemoglobin Reaction Path Interpret Transfusion Serv Com 10/24/18 Range/Units 19:12 WBC (4.8-10.8) K/uL RBC (4.2-5.4) M/uL Hgb (12.0-16.0) g/dL Hct (37-47) % MCV (80-100) fL MCH (25-34) pg MCHC (32-36) g/dL RDW Std Deviation (36.4-46.3) fL RDW Coeff of Duy (11.5-14.5) % Plt Count (130-400) K/uL MPV (7.4-10.4) fL Immature Gran % (Auto) % Neut % (Auto) % Lymph % (Auto) % Delta % (Auto) % Eos % (Auto) % Baso % (Auto) % Reticulocyte % (Auto) (0.5-2.0) % Immature Gran # (Auto) (0.00-0.02) K/uL Neut # (Auto) (1.4-6.5) K/uL Lymph # (Auto) (1.2-3.4) K/uL Delta # (Auto) (0.11-0.59) K/uL Eos # (Auto) (0-0.5) K/uL Baso # (Auto) (0-0.2) K/uL Reticulocyte # (0.02-0.10) 10^6/uL Platelet Estimate (Normal) Polychromasia Hypochromasia Anisocytosis Ovalocytes Stomatocytes Peripher Smr Path Cons PT (9.0-12.0) Seconds INR (0.9-1.1) Sample Site POC pH (7.35-7.45) POC pCO2 (35-46) mmHg POC pO2 (80-95) mmHg POC HCO3 (19-24) cachorro/L POC Total CO2 (24-31) mEq/l POC Base Excess (-9-1.8) cachorro/L ABG pH (Temp Correct) (7.35-7.45) ABG pCO2 (Temp Corrct (35-46) mmHg POC ABG pO2 at Pt Temp POC ABG O2 Sat (90-95) % Bill Test O2 Delivery Device POC O2 Rate Minute Ventilation POC FiO2 % Tidal Volume PEEP IPAP Sodium (136-145) mmol/L Potassium (3.5-5.1) mmol/L Chloride (98-107) mmol/L Carbon Dioxide (21-32) mmol/L Anion Gap (3-11) BUN (7-18) mg/dl Creatinine (0.6-1.2) mg/dl Est Cr Clr Drug Dosing ml/min Est GFR ( Amer) Est GFR (Non-Af Amer) BUN/Creatinine Ratio (10-20) Glucose (70-99) mg/dl POC Glucose (70-99) Lactate (0.4-2.0) mmol/L Calcium (8.5-10.1) mg/dl Phosphorus (2.5-4.9) mg/dl Magnesium (1.8-2.4) mg/dl Total Bilirubin (0.2-1) mg/dl Direct Bilirubin (0-0.2) mg/dl AST (15-37) U/L ALT (12-78) U/L Alkaline Phosphatase (45-117) U/L Troponin I (0-0.045) ng/ml Total Protein (6.4-8.2) gm/dl Albumin (3.4-5.0) gm/dl Urine Color Urine Appearance (Clear) Urine pH (4.5-7.5) Ur Specific [place] (1.000-1.030) Urine Protein (Negative) Urine Glucose (UA) (Negative) Urine Ketones (Negative) Urine Blood (Negative) Urine Nitrite (Negative) Urine Bilirubin (Negative) Urine Urobilinogen (Negative) Ur Leukocyte Esterase (Negative) Urine WBC (Auto) (0-5) /hpf Urine RBC (Auto) (0-4) /hpf U Hyaline Cast (Auto) (0-5) /lpf U Epithel Cells (Auto) (0-5) /lpf Urine Bacteria (Auto) (Negative) Ur Renal Epithelial Cell Nasal Screen MRSA (PCR) (Negative) IgA (70-400) mg/dl Blood Type O Positive Antibody Screen NEGATIVE Crossmatch See Detail Transfusion React Date Transfusion React Time Tx React Symptoms Reaction Clerical Check Lab Clerical Err Check React Component Return Volume Returned Pre-Trans Blood Type Pre-Trans Vis Hemolysis Pre-Trans EDMUND (Negative) Pre-Trans EDMUND IgG (Negative) Pre-Trans EDMUND Poly (Negative) Pre-Trans EDMUND C3b, C3d (Negative) Post-Trans Blood Type Post-Tx Visible Hemolys Post-Trans EDMUND (Negative) Post-Trans EDMUND IgG (Negative) Post-Trans EDMUND Poly (Negative) Post-Trans EDMUND C3b, C3d (Negative) Post-Trans Ur Hemoglobin Reaction Path Interpret Transfusion Serv Com Medications Administered Current Inpatient Medications Acetaminophen (Tylenol) 650 mg PO Q4H PRN PRN Reason: Pain Stop: 11/24/18 01:02 Last Admin: 10/25/18 02:09 Dose: 650 mg Documented by: Albuterol (Duoneb) 3 ml NEB QIDR [facility] Stop: 11/24/18 06:59 Last Admin: 10/26/18 11:08 Dose: 3 ml Documented by: Dextrose (Dextrose 50%) 25 - 50 ml IV UD PRN; Protocol PRN Reason: Hypoglycemia Protocol Stop: 11/23/18 21:18 Duloxetine HCl (Cymbalta) 30 mg PO BID [facility] Stop: 11/23/18 21:18 Last Admin: 10/25/18 20:49 Dose: 30 mg Documented by: Fentanyl Citrate (Fentanyl Citrate) 50 mcg IV Q2H PRN PRN Reason: Moderate Pain (4,5,6) Stop: 11/09/18 00:56 Last Admin: 10/26/18 06:27 Dose: 50 mcg Documented by: Fluticasone Propionate (Flonase) 2 sprays NA BID [facility] Stop: 11/23/18 21:18 Last Admin: 10/26/18 08:34 Dose: Not Given Documented by: Fluticasone Propionate (Flovent Hfa 110mch) 1 puffs INH BID [facility] Stop: 11/24/18 08:59 Last Admin: 10/26/18 08:34 Dose: Not Given Documented by: Glucagon (Glucagen) 1 mg SQ UD PRN; Protocol PRN Reason: Hypoglycemia Protocol Stop: 11/23/18 21:18 Glucose (Glucose 40%) 15 - 30 gm PO UD PRN; Protocol PRN Reason: Hypoglycemia Protocol Stop: 11/23/18 21:18 Glucose (Dex4 Glucose) 4 - 8 tabs PO UD PRN; Protocol PRN Reason: Hypoglycemia Protocol Stop: 11/23/18 21:18 Sodium Chloride (Nss) 250 mls @ 15 mls/hr IV .[id number] PRN PRN Reason: For Transfusion Stop: 11/24/18 16:51 Aztreonam 2,000 mg/ Dextrose 110 mls @ 100 mls/hr IV Q8H [facility]; Protocol Stop: 11/01/18 19:59 Last Admin: 10/26/18 11:25 Dose: 100 mls/hr Documented by: Midazolam HCl (Versed) 125 mg in 250 mls @ 12 mls/hr IV .[id number] PRN; Protocol PRN Reason: Titration Stop: 11/25/18 00:24 Last Titration: 10/26/18 07:45 Dose: 8 mg/hr, 16 mls/hr Documented by: Famotidine 20 mg/ Syringe 5 mls @ 2.5 mls/min IV BID [facility] Stop: 11/25/18 08:59 Last Admin: 10/26/18 09:54 Dose: 2.5 mls/min Documented by: Insulin Human Regular 250 (units/ Sodium Chloride) 250 mls @ 3.6 mls/hr IV .Q24H [facility]; Protocol Stop: 11/25/18 09:29 Last Titration: 10/26/18 11:30 Dose: 3.6 units/hr, 3.6 mls/hr Documented by: Insulin Aspart (Novolog Flexpen) 0 units SC ACHS [facility] Stop: 11/25/18 11:29 Last Admin: 10/26/18 10:17 Dose: Not Given Documented by: Insulin Human NPH (Novolin N Nph) 50 units SC TIDM [facility]; Protocol Stop: 11/24/18 07:59 Last Admin: 10/25/18 17:09 Dose: 50 units Documented by: Levothyroxine Sodium (Synthroid) 100 mcg PO DAILYBB [facility] Stop: 11/24/18 06:29 Last Admin: 10/26/18 06:11 Dose: 100 mcg Documented by: Metoprolol Succinate (Toprol Xl) 25 mg PO DAILY [facility] Stop: 11/24/18 08:59 Last Admin: 10/26/18 08:35 Dose: Not Given Documented by: Mirtazapine (Remeron Solutab) 45 mg PO HS [facility] Stop: 11/23/18 21:18 Last Admin: 10/25/18 20:49 Dose: 45 mg Documented by: Miscellaneous (Carbohydrates For Hypoglycemia) 15 - 30 gm PO UD PRN PRN Reason: Hypoglycemia Treatment Stop: 11/23/18 21:18 Miscellaneous (Icu Protocol For Hyperglycemia) 1 ea N/A PRN PRN; Protocol PRN Reason: Hyperglycemia Protocol Stop: 10/27/18 20:52 Miscellaneous Information (Consult Glycemic Management Pharmacy) 1 ea N/A UD PRN; Protocol PRN Reason: Consult Stop: 11/23/18 21:37 Montelukast Sodium (Singulair) 10 mg PO PM [facility] Stop: 11/23/18 21:18 Last Admin: 10/25/18 20:51 Dose: 10 mg Documented by: Nystatin (Mycostatin) 1 appln EXT TID [facility] Stop: 11/23/18 21:18 Last Admin: 10/26/18 09:34 Dose: 1 appln Documented by: Ondansetron HCl (Zofran) 4 mg IV Q6H PRN PRN Reason: Nausea Stop: 11/24/18 18:11 Last Admin: 10/25/18 18:40 Dose: 4 mg Documented by: Pantoprazole Sodium (Protonix) 40 mg PO DAILY [facility] Stop: 11/24/18 08:59 Last Admin: 10/26/18 08:35 Dose: Not Given Documented by: Pregabalin (Lyrica) 200 mg PO TID [facility] Stop: 11/23/18 21:18 Last Admin: 10/26/18 09:34 Dose: 200 mg Documented by: Simvastatin (Zocor) 20 mg PO HS [facility] Stop: 11/23/18 21:18 Last Admin: 10/24/18 22:53 Dose: 20 mg Documented by: Tiotropium [place] (Spiriva) 1 puffs INH DAILY PRN PRN Reason: Shortness Of Breath Stop: 11/23/18 21:18 Ursodiol (Actigall) 600 mg PO BID [facility] Stop: 11/23/18 21:18 Last Admin: 10/25/18 08:19 Dose: 600 mg Documented by: PG Care Time/CCT Total # of Minutes Spent Total Time Spent with Patient: Total time spent is greater than 50% in coordination of care (as documented) at patient's floor/unit and/or counseling patient:
[2018-10-26] MEDS: ALBUT/IPRATROP 3MG/0.5MG NEB 3 ML VIAL NEB SCH ×4 (07:43→19:34)
[2018-10-26] MEDS: FLUTICASONE PROPIONATE NA SPR 16 GM BTL SCH ×2 (08:34→19:58)
[2018-10-26] MEDS: FLUTICASONE HFA 110MCG INHALER INH SCH ×2 (08:34→19:59)
[2018-10-26] MEDS: PANTOprazole 40 MG TAB PO SCH (08:35)
[2018-10-26] MEDS: METOPROLOL SUCC 25MG EXT REL TAB PO SCH (08:35)
[2018-10-26] MEDS ORDERED: METOCLOPRAMIDE HCL INJ 5 MG/ML 2 ML VIAL IV ONE (08:57)
[2018-10-26] MEDS ORDERED: INSULIN PROTOCOL GOAL RANGE ONE (08:59)
[2018-10-26] MEDS ORDERED: MODERATE STRESS LEVEL ONE (08:59)
--- NOTE | 2018-10-26 08:59 | Gastroenterology Progress Note ---
Date of Service October 26, 2018 Assessment & Plan (1) Iron deficiency anemia: (2) Lesion of colon: Pt is a 67 y/o female currently admitted for respiratory failure, hemoptysis, pneumonia seen for worsening iron deficiency anemia and noted to have large 2cm polypoid lesion on transverse colon. She denies s/s of camila GI//vaginal bleeding. She had hx of colonoscopy >10 yrs ago and was told may have ulcerative colitis vs crohn's disease at one point but never on meds. EGD 2003 - hiatal hernia She was had blood transfusion reaction last night, given Benadryl and became increasingly somnolent, hypercapnic and then transferred to ICU, intubated to protect her airway - Monitor H/H and transfuse prn - Given her airway is currently being protected we decide to proceed w EGD and colonoscopy evaluation today instead of tomorrow in ICU. Will give her Golytely prep, keep NPO. Supervising Physician Co-Signing Physician Notes I performed a history and physical examination of the patient, including specifically on physical exam - soft, nontender abdomen. I have discussed the patient's management with Carey. Please refer to the nurse practitioner's note for the documented findings and plan of care. Currently intubated and sedated in ICU. Given 4 L of Golytely but no BM yet. Will do EGD today and perhaps colonoscopy tomorrow. Subjective Pt had blood transfusion reaction last night, received Benadryl, got increasing somnolence and having hypercapnia. She was transferred to ICU and intubated to protect her airway. Hgb 6-7 Review of Systems Review of Systems: Unobtainable due to endotracheal tube Physical Exam Constitutional: WD/WN, vitals as above well groomed, cooperative and comfortable Eyes: PERRL, conjunctivae normal, anicteric sclerae ENMT: Pt is intubated Respiratory: no respiratory distress and does not use accessory muscles Auscultation: + diminished lung sounds intubated Cardiovascular: RRR, no murmur, no edema Gastrointestinal (Abdomen): Inspection/Auscultation: + hypoactive bowel sounds Percussion/Palpation: + abdomen tender; + abdomen not soft Skin: no rashes, warm and dry no jaundice Psychiatric: Orientation: alert she is intubated Lymphatic: no lymphedema Results & Data Vital Signs (Past 12 Hours) Vital Signs Temp Pulse Pulse Resp BP BP Pulse Ox 10/26/18 08:00 36.8 C 84 17 96/50 L 97 10/26/18 07:36 66 20 98 10/26/18 07:00 62 14 100/43 L 99 10/26/18 06:05 69 14 100 10/26/18 05:45 66 98 10/26/18 05:30 67 98 10/26/18 05:15 63 99 10/26/18 05:00 82 97 10/26/18 04:45 99 10/26/18 04:30 65 98 10/26/18 04:15 69 99 10/26/18 04:05 66 16 100 10/26/18 04:00 37.0 C 67 99 10/26/18 03:45 108 H 100 10/26/18 03:30 64 98 10/26/18 03:15 67 98 10/26/18 03:02 70 115/55 L 98 10/26/18 03:00 68 98 10/26/18 02:59 67 10/26/18 02:50 67 98 10/26/18 02:40 67 97 10/26/18 02:30 67 96 10/26/18 02:20 66 97 10/26/18 02:10 76 96 10/26/18 02:06 69 126/57 L 98 10/26/18 02:02 77 117/63 98 10/26/18 02:00 70 116/72 10/26/18 01:55 78 17 98 10/26/18 01:54 67 93 10/26/18 01:52 67 99/44 L 93 10/26/18 01:51 70 92 10/26/18 01:50 73 95 10/26/18 01:49 70 94 10/26/18 01:48 76 95 10/26/18 01:47 83 95 10/26/18 01:46 71 94 10/26/18 01:45 72 95 10/26/18 01:44 70 95 10/26/18 01:43 68 94 10/26/18 01:42 81 20 95 10/26/18 01:41 72 21 95 10/26/18 01:40 82 11 L 95 10/26/18 01:08 97 10/26/18 01:07 98 10/26/18 01:06 98 10/26/18 01:05 86 17 100 10/26/18 01:04 85 16 100 10/26/18 01:03 73 16 100 10/26/18 01:02 86 18 111/48 L 99 10/26/18 01:01 78 20 100 10/26/18 01:00 91 H 14 100 10/26/18 00:59 90 15 100 10/26/18 00:58 89 14 100 10/26/18 00:57 71 14 100 10/26/18 00:56 79 10 L 100 10/26/18 00:55 73 16 100 10/26/18 00:54 147 H 12 100 10/26/18 00:53 83 15 100 10/26/18 00:52 58 L 19 100 10/26/18 00:51 90 15 100 10/26/18 00:50 92 H 15 100 10/26/18 00:49 94 H 28 H 100 10/26/18 00:48 98 H 20 100 10/26/18 00:47 90 23 100 10/26/18 00:46 83 17 100 10/26/18 00:45 84 15 100 10/26/18 00:44 83 5 L 100 10/26/18 00:43 82 7 L 100 10/26/18 00:42 83 2 L 100 10/26/18 00:41 83 20 100 10/26/18 00:40 86 14 99 10/26/18 00:39 86 16 100 10/26/18 00:38 87 14 100 10/26/18 00:37 87 19 100 10/26/18 00:36 88 33 H 100 10/26/18 00:35 88 33 H 100 10/26/18 00:34 88 28 H 100 10/26/18 00:33 88 26 H 100 10/26/18 00:32 90 22 97 10/26/18 00:31 92 H 27 H 92 10/26/18 00:30 93 H 26 H 92 10/26/18 00:01 89 23 136/49 L 96 10/26/18 00:00 92 H 24 96 10/25/18 23:58 92 H 24 136/53 L 94 10/25/18 23:49 36.7 C 10/25/18 23:46 91 H 24 153/52 H 93 10/25/18 23:31 90 24 148/53 H 94 10/25/18 23:30 91 H 23 94 10/25/18 23:29 91 H 22 136/52 L 93 10/25/18 23:16 91 H 19 122/51 L 95 10/25/18 23:13 93 H 26 H 93 10/25/18 23:02 95 H 24 113/49 L 91 10/25/18 23:00 97 H 94 H 26 H 113/49 L 93 10/25/18 22:40 93 H 25 H 90 10/25/18 22:31 93 H 28 H 123/58 L 93 10/25/18 22:30 96 H 25 H 89 L 10/25/18 22:20 37.2 C 92 H 94 H 24 123/58 L 90 10/25/18 22:16 91 H 16 109/46 L 94 10/25/18 22:10 93 H 6 L 95 10/25/18 22:07 96 H 19 112/53 L 91 10/25/18 22:01 95 H 0 L 75/38 L 91 10/25/18 22:00 95 H 12 92 10/25/18 21:50 96 H 0 L 92 10/25/18 21:46 97 H 8 L 109/43 L 93 10/25/18 21:40 90 3 L 93 10/25/18 21:38 98 H 21 93 10/25/18 21:31 98 H 0 L 101/44 L 93 10/25/18 21:30 99 H 0 L 92 10/25/18 21:20 99 H 29 H 94 10/25/18 21:16 100 H 27 H 120/59 L 92 10/25/18 21:10 104 H 25 H 90 10/25/18 21:01 104 H 29 H 116/55 L 90 10/25/18 21:00 105 H 27 H 90
[2018-10-26] MEDS ORDERED: INSULIN REGULAR 250 UNITS in SODIUM CHLORIDE 0.9% 247.5 ML IV SCH (09:30)
[2018-10-26] MEDS: PREGABALIN 100 MG CAP PO SCH ×3 (09:34→21:27)
[2018-10-26] MEDS: NYSTATIN POWDER 15GM BTL EXT SCH ×3 (09:34→19:58)
[2018-10-26] MEDS: FAMOTIDINE 20 MG in SYRINGE 3 ML IV SCH ×2 (09:54→19:57)
[2018-10-26] MEDS: LAVAGE SOLUTION 4000ML PO SCH ×4 (09:54→11:25)
[2018-10-26] MEDS ORDERED: SUCCINYLCHOLINE CHLORIDE 20 MG/ML 10 ML VIAL IV ONE (10:16)
[2018-10-26] MEDS ORDERED: MIDAZOLAM HCL 5 MG/ML 1 ML VIAL IV ONE (10:16)
[2018-10-26] MEDS ORDERED: fentaNYL citrate 100 MCG/2 ML CARP IV ONE (10:16)
[2018-10-26] MEDS ORDERED: VECURONIUM BROMIDE 10 MG VIAL IV ONE (10:16)
[2018-10-26] MEDS: INSULIN ASPART 100 UNITS/ML 3 ML PEN SC SCH ×3 (10:17→20:17)
--- NOTE | 2018-10-26 12:24 | Hospitalist Progress Note ---
Date of Service October 26, 2018 Assessment & Plan (1) Pneumonia: Aztreonam, blood cultures negative to date. (2) Hemoptysis: resolved. (3) Iron deficiency anemia: pending colonoscopy in am for further evaluation of a colon polyp. (4) Chronic hypercapnic respiratory failure: Was stable until Benadryl given overnight in response to anaphylaxis with blood product administration. She became less responsive and was intubated 2/2 acute respiratory acidosis. Currently intubated and sedated in the ICU. (5) Diabetes mellitus, type II: A1C reflects good control, however, she in on insulin/metformin at home. Glycemic pharmacist was consulted for assistance while inpatient. Insulin per ICU regimen. (6) Hypothyroidism: chronic, cont home Synthroid. (7) Morbid obesity: BMI 50.5, encouraged lifestyle modification (8) Closed compression fracture of body of lumbar vertebra: chronic, long-standing back pain. She is bed-bound/wheelchair-bound. Denies any trauma or new increase in pain. Cont supportive care. Uses celebrex at home, which is on hold in setting of anemia temporarily. Tylenol PRN (9) Adrenal adenoma: incidental finding on CT, defer to PCP for outpatient workup. (10) Hypertrophic cardiomyopathy: compensated. Giving blood-added one dose Lasix between units. (11) Paroxysmal SVT (supraventricular tachycardia): Toprol 25mg daily (12) Crohn disease: (13) Diabetic polyneuropathy: chronic, Lyrica per home regimen. (14) DVT prophylaxis: SCDs, chemoprophylaxis contraindicated in setting of acute anemia requiring a transfusion. Full Code Dispo-cont hospitalization until after upper and lower scope planned for Tuesday. Might be able to transfer home Tue or Tuesday. Deidre Mayo DO [facility] Hospitalist Subjective intubated, sedated, unable to communicate with patient. Review of Systems Review of Systems: Unobtainable due to endotracheal tube Physical Exam Physical Exam: CONSTITUTIONAL: obesity, vitals as above, generally well- appearing, intubated and sedated. EYES: normal conjunctivae, no scleral icterus ENT: MMM, OGT in place. RESPIRATORY: clear to auscultation bilaterally, no crackles, rales or wheezes, normal respiratory effort, limited exam 2/2 body habitus. CARDIOVASCULAR: regular rate and rhythm, S1 and 2 heard without murmurs, gallops or rubs, no JVD, no peripheral edema. GASTROINTESTINAL: soft, nontender, nondistended MUSCULOSKELETAL: unable to obtain as she is sedated. SKIN: warm and dry NEUROLOGIC: sedated. Results & Data Vital Signs (Past 12 Hours) Vital Signs Temp Pulse Resp BP Pulse Ox 10/26/18 12:01 36.8 C 68 14 83/36 L 95 10/26/18 11:10 61 14 97 10/26/18 11:00 65 96 10/26/18 10:00 71 14 97 10/26/18 09:00 78 14 104/42 L 96 10/26/18 08:00 36.8 C 84 17 96/50 L 97 10/26/18 07:36 66 20 98 10/26/18 07:00 62 14 100/43 L 99 10/26/18 06:05 69 14 100 10/26/18 05:45 66 98 10/26/18 05:30 67 98 10/26/18 05:15 63 99 10/26/18 05:00 82 97 10/26/18 04:45 99 10/26/18 04:30 65 98 10/26/18 04:15 69 99 10/26/18 04:05 66 16 100 10/26/18 04:00 37.0 C 67 99 10/26/18 03:45 108 H 100 10/26/18 03:30 64 98 10/26/18 03:15 67 98 10/26/18 03:02 70 115/55 L 98 10/26/18 03:00 68 98 10/26/18 02:59 67 10/26/18 02:50 67 98 10/26/18 02:40 67 97 10/26/18 02:30 67 96 10/26/18 02:20 66 97 10/26/18 02:10 76 96 10/26/18 02:06 69 126/57 L 98 10/26/18 02:02 77 117/63 98 10/26/18 02:00 70 116/72 10/26/18 01:55 78 17 98 10/26/18 01:54 67 93 10/26/18 01:52 67 99/44 L 93 10/26/18 01:51 70 92 10/26/18 01:50 73 95 10/26/18 01:49 70 94 10/26/18 01:48 76 95 10/26/18 01:47 83 95 10/26/18 01:46 71 94 10/26/18 01:45 72 95 10/26/18 01:44 70 95 10/26/18 01:43 68 94 10/26/18 01:42 81 20 95 10/26/18 01:41 72 21 95 10/26/18 01:40 82 11 L 95 10/26/18 01:08 97 10/26/18 01:07 98 10/26/18 01:06 98 10/26/18 01:05 86 17 100 10/26/18 01:04 85 16 100 10/26/18 01:03 73 16 100 10/26/18 01:02 86 18 111/48 L 99 10/26/18 01:01 78 20 100 10/26/18 01:00 91 H 14 100 10/26/18 00:59 90 15 100 10/26/18 00:58 89 14 100 10/26/18 00:57 71 14 100 10/26/18 00:56 79 10 L 100 10/26/18 00:55 73 16 100 10/26/18 00:54 147 H 12 100 10/26/18 00:53 83 15 100 10/26/18 00:52 58 L 19 100 10/26/18 00:51 90 15 100 10/26/18 00:50 92 H 15 100 10/26/18 00:49 94 H 28 H 100 10/26/18 00:48 98 H 20 100 10/26/18 00:47 90 23 100 10/26/18 00:46 83 17 100 10/26/18 00:45 84 15 100 10/26/18 00:44 83 5 L 100 10/26/18 00:43 82 7 L 100 10/26/18 00:42 83 2 L 100 10/26/18 00:41 83 20 100 10/26/18 00:40 86 14 99 10/26/18 00:39 86 16 100 10/26/18 00:38 87 14 100 10/26/18 00:37 87 19 100 10/26/18 00:36 88 33 H 100 10/26/18 00:35 88 33 H 100 10/26/18 00:34 88 28 H 100 10/26/18 00:33 88 26 H 100 10/26/18 00:32 90 22 97 10/26/18 00:31 92 H 27 H 92 10/26/18 00:30 93 H 26 H 92 Laboratory Results Short CBC 10/25/18 10/25/18 10/26/18 Range/Units 14:54 21:16 04:32 WBC 10.78 5.07 (4.8-10.8) K/uL Hgb 7.3 L 7.9 L 6.9 L* (12.0-16.0) g/dL Hct 27.2 L 29.9 L 26.1 L (37-47) % Plt Count 151 125 L (130-400) K/uL BMP 10/25/18 10/26/18 21:16 04:32 Sodium 143 141 Potassium 3.6 D 4.5 D Chloride 101 100 Carbon Dioxide 38 H 36 H BUN 21 H 26 H Creatinine 0.89 0.86 Glucose 114 H 212 H Calcium 8.5 8.1 L Cardiac Enzymes 10/25/18 Range/Units 21:16 Troponin I < 0.015 (0-0.045) ng/ml Liver Function 10/25/18 Range/Units 21:16 Total Bilirubin 0.2 (0.2-1) mg/dl Direct Bilirubin < 0.1 (0-0.2) mg/dl AST 11 L (15-37) U/L ALT 14 (12-78) U/L Alkaline Phosphatase 87 (45-117) U/L Albumin 3.0 L (3.4-5.0) gm/dl Urine 10/26/18 Range/Units 01:59 Urine Color Yellow Urine Appearance Clear (Clear) Urine pH 5.5 (4.5-7.5) Ur Specific [place] 1.022 (1.000-1.030) Urine Protein 1+ H (Negative) Urine Glucose (UA) Negative (Negative) Medications Administered Current Inpatient Medications Acetaminophen (Tylenol) 650 mg PO Q4H PRN PRN Reason: Pain Stop: 11/24/18 01:02 Last Admin: 10/25/18 02:09 Dose: 650 mg Documented by: Albuterol (Duoneb) 3 ml NEB QIDR [facility]ALDO Stop: 11/24/18 06:59 Last Admin: 10/26/18 11:08 Dose: 3 ml Documented by: Dextrose (Dextrose 50%) 25 - 50 ml IV UD PRN; Protocol PRN Reason: Hypoglycemia Protocol Stop: 11/23/18 21:18 Duloxetine HCl (Cymbalta) 30 mg PO BID [facility] Stop: 11/23/18 21:18 Last Admin: 10/25/18 20:49 Dose: 30 mg Documented by: Fentanyl Citrate (Fentanyl Citrate) 50 mcg IV Q2H PRN PRN Reason: Moderate Pain (4,5,6) Stop: 11/09/18 00:56 Last Admin: 10/26/18 06:27 Dose: 50 mcg Documented by: Fluticasone Propionate (Flonase) 2 sprays NA BID [facility] Stop: 11/23/18 21:18 Last Admin: 10/26/18 08:34 Dose: Not Given Documented by: Fluticasone Propionate (Flovent Hfa 110mch) 1 puffs INH BID [facility] Stop: 11/24/18 08:59 Last Admin: 10/26/18 08:34 Dose: Not Given Documented by: Glucagon (Glucagen) 1 mg SQ UD PRN; Protocol PRN Reason: Hypoglycemia Protocol Stop: 11/23/18 21:18 Glucose (Glucose 40%) 15 - 30 gm PO UD PRN; Protocol PRN Reason: Hypoglycemia Protocol Stop: 11/23/18 21:18 Glucose (Dex4 Glucose) 4 - 8 tabs PO UD PRN; Protocol PRN Reason: Hypoglycemia Protocol Stop: 11/23/18 21:18 Sodium Chloride (Nss) 250 mls @ 15 mls/hr IV .[id number] PRN PRN Reason: For Transfusion Stop: 11/24/18 16:51 Aztreonam 2,000 mg/ Dextrose 110 mls @ 100 mls/hr IV Q8H [facility]ALDO; Protocol Stop: 11/01/18 19:59 Last Admin: 10/26/18 11:25 Dose: 100 mls/hr Documented by: Midazolam HCl (Versed) 125 mg in 250 mls @ 12 mls/hr IV .[id number] PRN; Protocol PRN Reason: Titration Stop: 11/25/18 00:24 Last Titration: 10/26/18 07:45 Dose: 8 mg/hr, 16 mls/hr Documented by: Famotidine 20 mg/ Syringe 5 mls @ 2.5 mls/min IV BID [facility] Stop: 11/25/18 08:59 Last Admin: 10/26/18 09:54 Dose: 2.5 mls/min Documented by: Insulin Human Regular 250 (units/ Sodium Chloride) 250 mls @ 3.6 mls/hr IV .Q24H [facility]; Protocol Stop: 11/25/18 09:29 Last Titration: 10/26/18 11:30 Dose: 3.6 units/hr, 3.6 mls/hr Documented by: Insulin Aspart (Novolog Flexpen) 0 units SC ACHS [facility] Stop: 11/25/18 11:29 Last Admin: 10/26/18 10:17 Dose: Not Given Documented by: Insulin Human NPH (Novolin N Nph) 50 units SC TIDM [facility]; Protocol Stop: 11/24/18 07:59 Last Admin: 10/25/18 17:09 Dose: 50 units Documented by: Levothyroxine Sodium (Synthroid) 100 mcg PO DAILYBB [facility] Stop: 11/24/18 06:29 Last Admin: 10/26/18 06:11 Dose: 100 mcg Documented by: Metoprolol Succinate (Toprol Xl) 25 mg PO DAILY [facility] Stop: 11/24/18 08:59 Last Admin: 10/26/18 08:35 Dose: Not Given Documented by: Mirtazapine (Remeron Solutab) 45 mg PO HS [facility] Stop: 11/23/18 21:18 Last Admin: 10/25/18 20:49 Dose: 45 mg Documented by: Miscellaneous (Carbohydrates For Hypoglycemia) 15 - 30 gm PO UD PRN PRN Reason: Hypoglycemia Treatment Stop: 11/23/18 21:18 Miscellaneous (Icu Protocol For Hyperglycemia) 1 ea N/A PRN PRN; Protocol PRN Reason: Hyperglycemia Protocol Stop: 10/27/18 20:52 Miscellaneous Information (Consult Glycemic Management Pharmacy) 1 ea N/A UD PRN; Protocol PRN Reason: Consult Stop: 11/23/18 21:37 Montelukast Sodium (Singulair) 10 mg PO PM [facility] Stop: 11/23/18 21:18 Last Admin: 10/25/18 20:51 Dose: 10 mg Documented by: Nystatin (Mycostatin) 1 appln EXT TID [facility] Stop: 11/23/18 21:18 Last Admin: 10/26/18 09:34 Dose: 1 appln Documented by: Ondansetron HCl (Zofran) 4 mg IV Q6H PRN PRN Reason: Nausea Stop: 11/24/18 18:11 Last Admin: 10/25/18 18:40 Dose: 4 mg Documented by: Pantoprazole Sodium (Protonix) 40 mg PO DAILY [facility] Stop: 11/24/18 08:59 Last Admin: 10/26/18 08:35 Dose: Not Given Documented by: Pregabalin (Lyrica) 200 mg PO TID [facility] Stop: 11/23/18 21:18 Last Admin: 10/26/18 09:34 Dose: 200 mg Documented by: Simvastatin (Zocor) 20 mg PO HS [facility] Stop: 11/23/18 21:18 Last Admin: 10/24/18 22:53 Dose: 20 mg Documented by: Tiotropium [place] (Spiriva) 1 puffs INH DAILY PRN PRN Reason: Shortness Of Breath Stop: 11/23/18 21:18 Ursodiol (Actigall) 600 mg PO BID [facility] Stop: 11/23/18 21:18 Last Admin: 10/25/18 08:19 Dose: 600 mg Documented by: (1) Pneumonia Laterality: bilateral Lung location: lower lobe of lung Pneumonia type: due to unspecified organism Qualified Code(s): J18.1 - Lobar pneumonia, unspecified organism
--- NOTE | 2018-10-26 14:36 | Pharmacy Report ---
Pharmacy Glycemic Short Note 2 - Date of Service October 26, 2018 - Glycemic Short BSG Results (Last 24 hours): 10/25/18 10/25/18 10/25/18 16:20 21:16 21:51 Glucose 114 H POC Glucose 157 H 130 H 10/25/18 10/26/18 10/26/18 23:51 03:47 04:32 Glucose 212 H POC Glucose 132 H 200 H 10/26/18 10/26/18 10/26/18 08:06 10:20 11:27 Glucose POC Glucose 233 H 220 H 201 H OUTPATIENT ANTIDIABETIC REGIMEN: * tresiba 65 units QAM and at lunch * Novolin R 60 at breakfast/ 30 at lunch/ 40 at dinner * metformin 500mg QID ASSESSMENT: * Patient well known to the glycemic service, typically maintained on TID NPH and novolog. Patient required 250 units of insulin yesterday. Patient admitted to the ICU last evening for respiratory failure and acute transfusion reaction and was subsequently intubated and made NPO. Glycemic plan discussed with whitewater rafting guide. Patient moderately hyperglycemic this morning at 233. Since the patient will be NPO throughout at least today (given intubation and need for multiple GI procedures)and NPH has a less favorable pharmacokinetic profile for her prolonged NPO status, it was decided initiate an insulin infusion (which uses regular insulin). Patient has a significant allergy to lantus and levemir. As such the plan will be to continue on the insulin infusion through at least tomorrow morning to asses ability to transition back to NPH. PLAN FOR INPATIENT GLYCEMIC CONTROL: * Starting IV insulin infusion per moderate stress protocol * Goal Range 110 - 180 mg/dl * In the critical care setting, continuous IV insulin infusion has been shown to be the best method for achieving glycemic targets. * Holding outpatient oral diabetes medications * Please note that the plan above was derived based on current level of insulin resistance and hospital stress. These recommendations are appropriate for inpatient admission only. Plan of care upon discharge will need to be reassessed to avoid potential outpatient hypo/hyperglycemia. Thank you.
[2018-10-26] MEDS ORDERED: BISACODYL 5 MG TABEC PO ONE (15:30)
[2018-10-26] MEDS ORDERED: LAVAGE SOLUTION 4000ML PO ONE (15:45)
[2018-10-26] MEDS ORDERED: POLYETHYLENE GLYCOL 3350 238 GM BTL PO ONE ×2 (17:00→21:00)
--- NOTE | 2018-10-26 17:19 | Pulmonology Progress Note ---
Date of Service October 26, 2018 Assessment & Plan (1) Hemoptysis: The cause of the hemoptysis is not clear. The most likely source would be the infiltrates at both lung bases. She does not overtly have symptoms to suggest pneumonia. She is quite anemic. I would be concerned about blood loss elsewhere such as the gut. I believe if this were all from the lung she likely would be bringing up much more blood than what she has. GI department is evaluating patient hoping to do colonoscopy. (2) Multilobar lung infiltrate: In light of the events of last evening the azithromycin and ceftriaxone were stopped. Apparently this was simply in the event they may have been contributing to an allergic reaction. I think that is less likely. She is now only on a aztreonam which has a very limited spectrum. Suggest checking with pharmacy to see if the patient might have been on other antibiotics in the past that she tolerated. For instance that she ever have ertapenem? It appears that she may have had Zithromax, ceftriaxone, and ertapenem during a hospital stay in October 2017. (3) Chronic hypercapnic respiratory failure: Continue noninvasive ventilator nightly after she is extubated and off the ventilator (4) JOSE (obstructive sleep apnea): Continue noninvasive ventilator nightly after she is extubated and off the ventilator Subjective The patient is now in the intensive care unit. Last evening she had an apparent transfusion reaction. She was resuscitated from that and transferred to ICU. She became much more sedate. Blood gas was abnormal and she had to be intubated. She is currently sedated but in spite of high sedation she awakens readily. She does recognize who I am and followed commands. There has been no hemoptysis at all that I am aware of since she was hospitalized. Nursing reports they do not suction out any blood through the endotracheal tube. Physical Exam Physical Exam: The patient is a 67-year-old female who is sedated but somewhat awake. She did follow commands. There is an oral endotracheal tube in place. There is an orogastric tube in place. She does have a very large neck. Cardiac rate 85/min. Rhythm regular. Blood pressure 97/46. Lung rojas were clear bilaterally. Respiratory rate 16. Saturation 97%. She is on mechanical ventilation at 40% oxygen. Mode of ventilation assist control. Abdomen markedly obese. Mild bowel sounds heard. This is despite the fact she has received large quantities of GoLYTELY in an attempt to clear her for colonoscopy. Results & Data Vital Signs (Past 12 Hours) Vital Signs Temp Pulse Resp BP Pulse Ox 10/26/18 16:17 85 97/46 L 97 10/26/18 16:02 89 98 10/26/18 15:48 16 10/26/18 15:01 72 92/42 L 92 10/26/18 14:02 72 14 92 10/26/18 14:00 72 14 93 10/26/18 13:00 72 14 86/37 L 90 10/26/18 12:01 36.8 C 68 14 83/36 L 95 10/26/18 11:10 61 14 97 10/26/18 11:00 65 96 10/26/18 10:00 71 14 97 10/26/18 09:00 78 14 104/42 L 96 10/26/18 08:00 36.8 C 84 17 96/50 L 97 10/26/18 07:36 66 20 98 10/26/18 07:00 62 14 100/43 L 99 10/26/18 06:05 69 14 100 10/26/18 05:45 66 98 10/26/18 05:30 67 98 10/26/18 05:15 63 99 Laboratory Results White count today 5.07. Hemoglobin decreased to 6.9. Platelets 125,000. Arterial blood gas done at 12:30 AM today showed pH 7.21 with PCO2 102 and PO2 90. This was done with the patient likely on her noninvasive ventilator although it was marked as on BiPAP. Subsequent blood gases showed on ventilator by endotracheal tube the PCO2 had normalized and she actually became alkalotic. Diagnostic Findings CT of the chest showed mildly progressive bibasilar atelectatic and/or infiltrative changes. PG Care Time/CCT Total # of Minutes Spent Total Time Spent with Patient: Total time spent is greater than 50% in coordination of care (as documented) at patient's floor/unit and/or counseling patient:
[2018-10-26] MEDS: SOD PHOSPHATE/SOD BIPHOSPHATE ENEMA 132 ML BTL PR SCH (17:51)
[2018-10-26] MEDS ORDERED: METOCLOPRAMIDE HCL INJ 5 MG/ML 2 ML VIAL IV STA (19:05)
[2018-10-26] MEDS ORDERED: METHYLNALTREXONE BROMIDE 12 MG/0.6 ML VIAL SQ STA (19:07)
[2018-10-26] MEDS ORDERED: fentaNYL citrate 100 MCG/2 ML VIAL IV PRN (19:08)
--- NOTE | 2018-10-26 19:31 | GI REPORT ---
Patient Name: Sangeetha Ramon Procedure Date: 10/26/2018 6:46 PM Date of : 1950 Admit Type: Inpatient Age: 67 Gender: Female Attending MD: Yoselin Burrows MD Procedure: Upper GI endoscopy Providers: Yoselin Burrows MD Referring MD: Georgia Verdugo, Kendrick Yadav d.o., Deidre Mayo Do Indications: Anemia Medicines: Monitored Anesthesia Care by Intecivist Complications: No immediate complications. Estimated Blood Loss: Estimated blood loss: none. Procedure: Pre-Anesthesia Assessment: - Prior to the procedure, a History and Physical was performed, and patient medications and allergies were reviewed. The patient is unable to give consent secondary to the patient being legally incompetent to consent. The risks and benefits of the procedure and the sedation options and risks were discussed with the patient's spouse. All questions were answered and informed consent was obtained. Patient identification and proposed procedure were verified by the physician and the nurse in the procedure room. Mental Status Examination: sedated. Airway Examination: orotracheal intubation. Respiratory Examination: clear to auscultation. CV Examination: normal. ASA Grade Assessment: III - A patient with severe systemic disease. After reviewing the risks and benefits, the patient was deemed in satisfactory condition to undergo the procedure. The anesthesia plan was to use deep sedation / analgesia. Immediately prior to administration of medications, the patient was re-assessed for adequacy to receive sedatives. The heart rate, respiratory rate, oxygen saturations, blood pressure, adequacy of pulmonary ventilation, and response to care were monitored throughout the procedure. The physical status of the patient was re-assessed after the procedure. After obtaining informed consent, the endoscope was passed under direct vision. Throughout the procedure, the patient's blood pressure, pulse, and oxygen saturations were monitored continuously. The scope was introduced through the mouth, and advanced to the second part of duodenum. The upper GI endoscopy was accomplished without difficulty. The patient tolerated the procedure well. Findings: The examined esophagus was normal. NG tube in place. The entire examined stomach was normal. The duodenal bulb and second portion of the duodenum were normal. 2 Liter of Golytely were instilled into the small bowel. Impression: - Normal esophagus. - Normal stomach. - Normal duodenal bulb and second portion of the duodenum. - No evidence of UGI bleeding. - No specimens collected. Recommendation: - Perform a colonoscopy tomorrow. Yoselin Burrows MD 10/26/2018 7:31:03 PM This report has been signed electronically. Note Initiated On: 10/26/2018 6:46 PM Number of Addenda: 0 I attest to the content of the Intraoperative Record and orders documented therein, exceptions below {[id number]}
[2018-10-26] MEDS: MONTELUKAST SODIUM 10 MG TABLET PO SCH (20:16)
[2018-10-26] MEDS: MIRTAZAPINE SOLTAB 15 MG PO SCH (20:16)
[2018-10-26] MEDS: DEXTROSE 50% 50 ML SYRINGE IV PRN (22:03)
[2018-10-27] MEDS: SOD PHOSPHATE/SOD BIPHOSPHATE ENEMA 132 ML BTL PR SCH ×3 (00:07→12:40)
[2018-10-27] MEDS: DEXTROSE 50% 50 ML SYRINGE IV PRN ×2 (00:55→07:10)
[2018-10-27] MEDS: AZTREONAM 2,000 MG in DEXTROSE 5% 100 ML IV SCH ×2 (03:45→11:15)
[2018-10-27 04:36] LABS: Hematocrit (blood only) 22.9 % (37-47); Hemoglobin 6.5 g/dL (12.0-16.0); Mean Corpuscular Hemoglobin 20.5 pg (25-34); Mean Corpuscular Hgb Conc 28.4 g/dL (32-36); Mean Corpuscular Volume 72.2 fL (80-100); Mean Platelet Volume 10.3 fL (7.4-10.4); Platelet Count 113 K/uL (130-400); RDW Coefficient of Variation 20.1 % (11.5-14.5); RDW Standard Deviation 52.9 fL (36.4-46.3); Red Blood Count 3.17 M/uL (4.2-5.4); White Blood Count 6.14 K/uL (4.8-10.8)
[2018-10-27 04:39] LABS: INR 1.1 (0.9-1.1); Prothrombin Time 11.5 Seconds (9.0-12.0)
[2018-10-27 04:46] LABS: Calcium 7.5 mg/dl (8.5-10.1); Creatinine Clr Calc Pharmacy 109.7 ml/min; Est GFR (African American) 94.9; Est GFR (Non-African American) 81.9; Magnesium 1.8 mg/dl (1.8-2.4); Phosphorus 3.8 mg/dl (2.5-4.9); Potassium 2.9 mmol/L (3.5-5.1)
[2018-10-27 05:09] LABS: Anisocytosis Present; Basophils # (auto) 0.02 K/uL (0-0.2); Basophils % (auto) 0.3 %; Eosinophils # (auto) 0.13 K/uL (0-0.5); Eosinophils % (auto) 2.1 %; Hypochromasia Present; Immature Granulocytes # (auto) 0.03 K/uL (0.00-0.02); Immature Granulocytes % (auto) 0.5 %; Lymphocytes # (auto) 1.67 K/uL (1.2-3.4); Lymphocytes % (auto) 27.2 %; Microcytosis Present; Monocytes % (auto) 9.8 %; Neutrophils # (auto) 3.69 K/uL (1.4-6.5); Neutrophils % (auto) 60.1 %
[2018-10-27] MEDS ORDERED: MAGNESIUM SULFATE / D5W 1 GM/100 ML BAG IV ONE (05:23)
[2018-10-27] MEDS: LEVOTHYROXINE SODIUM 100 MCG TABLET PO SCH (05:34)
[2018-10-27] MEDS: POTASSIUM CHLORIDE / WTR 10 MEQ/100 ML PLCT IV SCH ×6 (05:39→11:05)
[2018-10-27] MEDS: ALBUT/IPRATROP 3MG/0.5MG NEB 3 ML VIAL NEB SCH ×3 (06:55→15:13)
[2018-10-27] MEDS: FAMOTIDINE 20 MG in SYRINGE 3 ML IV SCH (08:00)
[2018-10-27] MEDS: FLUTICASONE PROPIONATE NA SPR 16 GM BTL SCH (08:00)
[2018-10-27] MEDS: FLUTICASONE HFA 110MCG INHALER INH SCH (08:00)
[2018-10-27] MEDS: MIDAZOLAM HCL 125 MG/250 ML BAG IV PRN (08:00)
[2018-10-27] MEDS: NYSTATIN POWDER 15GM BTL EXT SCH ×2 (08:01→12:48)
[2018-10-27] MEDS: INSULIN ASPART 100 UNITS/ML 3 ML PEN SC SCH ×2 (08:01→11:15)
[2018-10-27] MEDS: PREGABALIN 100 MG CAP PO SCH ×2 (08:01→12:45)
--- NOTE | 2018-10-27 08:49 | XRay Report ---
XR chest 1V portable CLINICAL HISTORY: cxr dyspnea COMPARISON STUDY: 10/26/2018 FINDINGS: Moderate stable cardiac megaly. Persistent opacification and/or effusion left lung base. Improving components of congestive failure versus pulmonary edema. Endotracheal tube persists at 3 cm above the markel. Nasogastric tube remains within the stomach. IMPRESSION: 1. Improving congestive failure/improving pulmonary edema. 2. Unchanged left basilar consolidative and/or effusion type change. 3. No current evidence for a superimposed right basilar infiltrate. The above report was generated using voice recognition software. It may contain grammatical, syntax or spelling errors. Electronically signed by: Blayne Harmon M.D. 10/27/2018 8:48 AM
[2018-10-27] MEDS ORDERED: GLYCOPYRROLATE 0.2 MG/ML VIAL IV ONE (09:00)
[2018-10-27] MEDS ORDERED: NEOSTIGMINE METHYLSULFATE 1 MG/ML 10ML VIAL IV ONE (09:02)
--- NOTE | 2018-10-27 09:29 | Gastroenterology Progress Note ---
Date of Service October 27, 2018 Assessment & Plan (1) Iron deficiency anemia: (2) Lesion of colon: Pt is a 67 y/o female currently admitted for respiratory failure, hemoptysis, pneumonia seen for worsening iron deficiency anemia and noted to have large 2cm polypoid lesion on transverse colon. She denies s/s of camila GI//vaginal bleeding. She had hx of colonoscopy >10 yrs ago and was told may have ulcerative colitis vs crohn's disease at one point but never on meds. EGD 2003 - hiatal hernia She was had blood transfusion reaction 2 nights ago, given Benadryl and became increasingly somnolent, hypercapnic and then transferred to ICU, intubated to protect her airway. EGD performed yesterday unremarkable. She had been given additional Golytely and Fleets enemas, multiple BMs charted. Plan for colonoscopy today. - Monitor H/H closely - Colonoscopy by Dr. Burrows Supervising Physician Co-Signing Physician Notes I performed a history and physical examination of the patient, including specifically on physical exam - soft, nontender abdomen. I have discussed the patient's management with Laura Please refer to the nurse practitioner's note for the documented findings and plan of care. Subjective Pt remaines intubate, sedated. EGD performed yesterday unremarkable. Plan for colonoscopy today Review of Systems Review of Systems: Unobtainable due to endotracheal tube Physical Exam Constitutional: WD/WN, vitals as above well groomed Eyes: PERRL, conjunctivae normal, anicteric sclerae ENMT: external ear and nose normal, oropharynx normal Intubated Respiratory: no respiratory distress and does not use accessory muscles Auscultation: + diminished lung sounds Intubated Cardiovascular: RRR, no murmur, no edema Gastrointestinal (Abdomen): Inspection/Auscultation: + hypoactive bowel sounds Percussion/Palpation: abdomen soft Skin: no rashes, warm and dry no jaundice Psychiatric: sedated, intubated Lymphatic: no lymphedema Results & Data Vital Signs (Past 12 Hours) Vital Signs Temp Pulse Pulse Resp Pulse Ox 10/27/18 08:00 73 15 97 10/27/18 07:01 66 14 99 10/27/18 07:00 36.6 C 66 16 99 10/27/18 06:55 14 10/27/18 06:15 69 98 10/27/18 06:10 59 L 98 10/27/18 06:09 68 98 10/27/18 06:08 67 96 10/27/18 06:07 100 H 99 10/27/18 06:06 69 100 10/27/18 06:05 69 99 10/27/18 06:04 61 100 10/27/18 06:03 65 100 10/27/18 06:02 75 100 10/27/18 06:01 68 99 10/27/18 06:00 72 100 10/27/18 05:59 99 10/27/18 05:58 100 10/27/18 05:57 72 98 10/27/18 05:56 67 98 10/27/18 05:55 67 98 10/27/18 05:54 67 98 10/27/18 05:53 69 98 10/27/18 05:52 65 99 10/27/18 05:51 67 100 10/27/18 05:50 67 100 10/27/18 05:45 73 100 10/27/18 05:30 72 15 60 L 10/27/18 05:15 66 10/27/18 05:10 64 10/27/18 05:09 65 10/27/18 05:08 63 10/27/18 05:07 63 10/27/18 05:06 64 10/27/18 05:05 58 L 10/27/18 05:04 56 L 10/27/18 05:03 58 L 10/27/18 05:02 57 L 10/27/18 05:01 56 L 10/27/18 05:00 58 L 10/27/18 04:45 58 L 10/27/18 04:30 59 L 10/27/18 04:15 61 10/27/18 04:00 36.9 C 60 10/27/18 03:45 57 L 100 10/27/18 03:30 59 L 100 10/27/18 03:15 59 L 100 10/27/18 03:00 58 L 100 10/27/18 02:45 67 100 10/27/18 02:41 59 L 14 100 10/27/18 02:30 66 100 10/27/18 02:15 63 100 10/27/18 02:00 58 L 100 10/27/18 01:45 54 L 100 10/27/18 01:30 57 L 100 10/27/18 01:15 63 100 10/27/18 01:00 65 100 10/27/18 00:45 66 100 10/27/18 00:30 64 100 10/27/18 00:15 70 96 10/27/18 00:00 36.9 C 65 99 10/26/18 23:45 62 97 10/26/18 23:30 72 98 10/26/18 23:20 63 14 99 10/26/18 23:15 62 100 10/26/18 23:00 66 99 10/26/18 22:45 67 100 10/26/18 22:30 70 100 10/26/18 22:15 69 97 10/26/18 22:00 71 98 10/26/18 21:45 72 99 10/26/18 21:30 77 100
--- NOTE | 2018-10-27 10:45 | Hospitalist Progress Note ---
Date of Service October 27, 2018 Assessment & Plan (1) Pneumonia: Recurrent symptoms after course of azithromycin one month ago. Improved on the ceftriaxone/azithro. Blood cultures pending. She appears well and symptoms have improved. Cont course of abx. (2) Hemoptysis: Blood streaking since pneumonia episode one month ago which persisted. She then had an increased amount of hemoptysis prompting arrival to the ER. Appreciate pulm recs. (3) Iron deficiency anemia: New polyps seen on imaging, which is likely source of blood loss/iron deficiency anemia. Pt reports no cscope in >20 years. GI consulted and plan for scope on Tuesday of this week. Transition to a liquid diet begining tomorrow morning. Transfuse 2 units pRBCs at this time. (4) Chronic hypercapnic respiratory failure: Appears stable from a pulmonary perspective. She has severe COPD but is not wheezing and reports no dyspnea today. She continues on her chronic 4L of oxygen and BIPAP qHS. She is on Trilogy at home. Cont Duonebs while hospitalized. (5) Diabetes mellitus, type II: A1C reflects good control, however, she in on insulin/metformin at home. Glycemic pharmacist was consulted for assistance while inpatient. (6) Hypothyroidism: chronic, cont home Synthroid. (7) Morbid obesity: BMI 50.5, encouraged lifestyle modification (8) Closed compression fracture of body of lumbar vertebra: chronic, long-standing back pain. She is bed-bound/wheelchair-bound. Denies any trauma or new increase in pain. Cont supportive care. Uses celebrex at home, which is on hold in setting of anemia temporarily. Tylenol PRN (9) Adrenal adenoma: incidental finding on CT, defer to PCP for outpatient workup. (10) Hypertrophic cardiomyopathy: compensated. Giving blood-added one dose Lasix between units. (11) Paroxysmal SVT (supraventricular tachycardia): Toprol 25mg daily (12) Crohn disease: (13) Diabetic polyneuropathy: chronic, Lyrica per home regimen. (14) DVT prophylaxis: SCDs, chemoprophylaxis contraindicated in setting of acute anemia requiring a transfusion. Full Code Dispo-cont hospitalization until after upper and lower scope planned for Tuesday. Might be able to transfer home Tue or Tuesday. Deidre Mayo DO [facility] Hospitalist Results & Data Vital Signs (Past 12 Hours) Vital Signs Temp Pulse Pulse Resp Pulse Ox 10/27/18 10:00 64 14 100 10/27/18 09:00 72 14 97 10/27/18 08:00 73 15 97 10/27/18 07:01 66 14 99 10/27/18 07:00 36.6 C 66 16 99 10/27/18 06:55 14 10/27/18 06:15 69 98 10/27/18 06:10 59 L 98 10/27/18 06:09 68 98 10/27/18 06:08 67 96 10/27/18 06:07 100 H 99 10/27/18 06:06 69 100 10/27/18 06:05 69 99 10/27/18 06:04 61 100 10/27/18 06:03 65 100 10/27/18 06:02 75 100 10/27/18 06:01 68 99 10/27/18 06:00 72 100 10/27/18 05:59 99 10/27/18 05:58 100 10/27/18 05:57 72 98 10/27/18 05:56 67 98 10/27/18 05:55 67 98 10/27/18 05:54 67 98 10/27/18 05:53 69 98 10/27/18 05:52 65 99 10/27/18 05:51 67 100 10/27/18 05:50 67 100 10/27/18 05:45 73 100 10/27/18 05:30 72 15 60 L 10/27/18 05:15 66 10/27/18 05:10 64 10/27/18 05:09 65 10/27/18 05:08 63 10/27/18 05:07 63 10/27/18 05:06 64 10/27/18 05:05 58 L 10/27/18 05:04 56 L 10/27/18 05:03 58 L 10/27/18 05:02 57 L 10/27/18 05:01 56 L 10/27/18 05:00 58 L 10/27/18 04:45 58 L 10/27/18 04:30 59 L 10/27/18 04:15 61 10/27/18 04:00 36.9 C 60 10/27/18 03:45 57 L 100 10/27/18 03:30 59 L 100 10/27/18 03:15 59 L 100 10/27/18 03:00 58 L 100 10/27/18 02:45 67 100 10/27/18 02:41 59 L 14 100 10/27/18 02:30 66 100 10/27/18 02:15 63 100 10/27/18 02:00 58 L 100 10/27/18 01:45 54 L 100 10/27/18 01:30 57 L 100 10/27/18 01:15 63 100 10/27/18 01:00 65 100 10/27/18 00:45 66 100 10/27/18 00:30 64 100 10/27/18 00:15 70 96 10/27/18 00:00 36.9 C 65 99 10/26/18 23:45 62 97 10/26/18 23:30 72 98 10/26/18 23:20 63 14 99 10/26/18 23:15 62 100 10/26/18 23:00 66 99 (1) Pneumonia Laterality: bilateral Lung location: lower lobe of lung Pneumonia type: due to unspecified organism Qualified Code(s): J18.1 - Lobar pneumonia, unspecified organism
[2018-10-27] MEDS ORDERED: LAVAGE SOLUTION 4000ML PO STA (10:57)
[2018-10-27] MEDS: POTASSIUM CHLORIDE 20 MEQ/15 ML UDC PO SCH ×2 (11:08→12:45)
[2018-10-27] MEDS ORDERED: NORMOSOL-R 1,000 ML IV SCH (11:45)
[2018-10-27] MEDS ORDERED: NORMOSOL-R 1,000 ML IV ONE (11:45)
[2018-10-27] MEDS ORDERED: PROPOFOL IV EMULSION 10 MG/ML 100 ML VIAL IV ONE (12:27)
--- NOTE | 2018-10-27 12:41 | Pharmacy Report ---
Pharmacy Glycemic Short Note 2 - Date of Service October 27, 2018 - Glycemic Short BSG Results (Last 24 hours): 10/26/18 10/26/18 10/26/18 12:35 13:33 14:27 Glucose POC Glucose 178 H 172 H 158 H 10/26/18 10/26/18 10/26/18 15:45 17:44 20:08 Glucose POC Glucose 142 H 137 H 88 10/26/18 10/26/18 10/26/18 20:58 21:55 22:15 Glucose POC Glucose 92 83 139 H 10/26/18 10/27/18 10/27/18 23:22 00:12 00:49 Glucose POC Glucose 165 H 92 73 10/27/18 10/27/18 10/27/18 01:08 01:56 03:06 Glucose POC Glucose 141 H 121 H 98 10/27/18 10/27/18 10/27/18 03:53 04:08 04:55 Glucose 92 POC Glucose 100 H 111 H 10/27/18 10/27/18 10/27/18 06:00 07:01 07:24 Glucose POC Glucose 99 72 83 OUTPATIENT ANTIDIABETIC REGIMEN: * tresiba 65 units QAM and at lunch * Novolin R 60 at breakfast/ 30 at lunch/ 40 at dinner * metformin 500mg QID ASSESSMENT: * MV 67yo F. Insulin infsn is being placed on hold. BSGs this AM were not hypoglycemic, however, they are lower than clinically necessary. We will hold NPH and proceed with q4 accuchecks. PLAN FOR INPATIENT GLYCEMIC CONTROL: A very conservative correctional insulin: q4, goal range 120-160, CF 30, nil CR. * Please note that the plan above was derived based on current level of insulin resistance and hospital stress. These recommendations are appropriate for inpatient admission only. Plan of care upon discharge will need to be reassessed to avoid potential outpatient hypo/hyperglycemia. Thank you.
[2018-10-27] MEDS ORDERED: METHYLENE BLUE 0.5% 10 ML VIAL ONE (12:42)
--- NOTE | 2018-10-27 12:47 | Allergy & Immunology Consult ---
Date of Consultation October 27, 2018 Assessment & Plan (1) Transfusion reaction: Patient presented with anaphylaxis to RBC transfusion. No H/O IgA deficiency and level was normal at 190 mg/dl. Most cases of anaphylaxis to blood products are due to proteins within PRBCs. They are often not reproduced on subsequent transfusions, but the safest approach is to use washed RBCs, which remove most of the offending antigens. However, she should also be pre-medicated prior to next infusion with antihistamines and steroids. She tolerated solumedrol, and OK to use this again. Cetirizine would be a better option than Benadryl, as it is safer. We often use doses up to 40 mg when treating cutaneous reactions, and this would be OK to use here as well. Additionally, an H2 yudi could also be considered, such as 150-300 mg of ranitidine, as this has been shown to blunt drop in blood pressure associated with anaphylaxis. Would give these medications an hour before the infusion. She does have a history of many medication allergies, most of these consisting of hives. In these patients, they may often have a component of chronic urticaria or even mast cell disease. These could be risk factors that can result in adverse reactions from transfusions. At some point, we should see her in our outpatient clinic to try to sort some of these out and performs diagnostic testing. If she requires that these medications well in-hospital, please let us know and we can either evaluate or even consider a desensitization if needed. (2) Multiple drug allergies: History of Present Illness Attending Physician: Deidre Mayo, History of Present Illness This is a 67-year-old female who presented with hemoptysis, shortness of breath, anemia with suspected GI bleed. She has a complicated past history significant forc hypercapnic respiratory failure on 4L of O2 and home ventilator at , obesity hypoventilation syndrome, COPD, IDDM 2 with polyneuropathy, JOSE, diastolic CHF, history of paroxysmal SVT, history of left thalamic CVA without residual deficit, HTN, HLD, GERD, chronic pain, morbid obesity who presents to [facility] secondary to hemoptysis x1 week. She has had chronic productive cough usually purulent in nature, but over the past week has been more blood-tinged. Over the past 2 days she has been coughing up camila, half-dollar size blood clots. She notes approximately 1 month ago she had something similar and was treated with oral azithromycin and her symptoms improved. She also elicits to having increased shortness of breath and noticed that her oxygen levels were decreasing to 70s and 80s at home. Complained of left-sided chest heaviness, "elephant on my chest when she would get short of breath." She has no known sick contacts. Denied any documented fever, chills, lightheadedness, dizziness, syncope, diaphoresis, palpations, shortness of breath at rest, emesis, abdominal pain, diarrhea, melena, hematochezia, hematuria, increased urgency of urgency with urination at time of admission. She was found to have a significant anemia. Given her low hemoglobin, she was transfused with leukopoor packed red blood cells. She was premedicated with Benadryl as well as Solu-Medrol. However, she developed flushing and pruritus of the chest which progressed to chest pressure and headache with some stridor. There were no hives, angioedema, hypotension. She did not have any fevers or chills. She was treated with epinephrine with multiple doses for presumed systemic reaction due to transfusion. She was transferred to the ICU, and upon admission, developed respiratory acidosis and was intubated. Allergy consulted to make recommendations about further transfusions of needed. She did have blood work including IgA level that was unremarkable. Allergies Allergy/AdvReac Type Severity Reaction Status Date / Time fluoxetine Allergy Severe ANAPHYLAXIS Verified 10/24/18 15:39 Insulins Allergy Severe LANTUS/LEVEMIR- Verified 10/24/18 15:39 HIVES/THROAT SWELLING moxifloxacin Allergy Severe HIVES Verified 10/24/18 15:39 nitrofurantoin Allergy Severe HIVES Verified 10/24/18 15:39 paroxetine Allergy Severe HIVES Verified 10/24/18 15:39 Quinolones Allergy Severe AVELOX & Verified 10/24/18 15:39 LEVAQUIN-HIVES amitriptyline Allergy Intermediate Sweats and Verified 10/24/18 15:39 itching buspirone Allergy Intermediate HIVES Verified 10/24/18 15:39 cephalexin Allergy Intermediate Hives Verified 10/24/18 15:39 citalopram Allergy Intermediate HIVES-RASH Verified 10/24/18 15:39 escitalopram Allergy Intermediate HIVES-RASH Verified 10/24/18 15:40 levofloxacin Allergy Intermediate Hives Verified 10/24/18 15:40 methadone Allergy Intermediate HIVES Verified 10/24/18 15:40 Penicillins Allergy Intermediate RASH,HIVES Verified 10/24/18 15:40 Serotonin 5HT-3 Antagonists Allergy Intermediate MIGRAINES Verified 10/24/18 15:40 TO SSRIs trazodone Allergy Intermediate BLOODY Verified 10/24/18 15:40 NOSE, HEADACHES,HIVES vancomycin Allergy Intermediate HIVES Verified 10/24/18 15:40 prednisone Allergy Mild CHEST Verified 10/24/18 15:40 TIGHTNESS carbamazepine Allergy Unknown HIVES-RASH- Verified 10/24/18 15:40 ITCHINESS cefepime Allergy Unknown face & arm Verified 10/24/18 15:40 redness/itching after 2nd or 3rd dose cefepime ceftriaxone Allergy Unknown Received Verified 10/24/18 15:40 in MTU (but needed benadryl for course of therapy Cipro Allergy Unknown ABD PAINS Verified 09/08/17 09:10 ciprofloxacin Allergy Unknown ABD PAINS Verified 10/24/18 15:40 mivacurium Allergy Unknown HIVES Verified 10/24/18 15:40 sertraline Allergy Unknown UNKNOWN Verified 10/24/18 15:40 sitagliptin Allergy Unknown HIVES Verified 10/24/18 15:40 Cephalosporins Allergy Hives Verified 10/24/18 15:40 [facility] Allergy Unknown Verified 10/25/18 15:47 Tetracyclines AdvReac Severe HIVES Verified 10/24/18 15:40 Sulfa (Sulfonamide AdvReac Intermediate MIGRAINES Verified 10/24/18 15:40 Antibiotics) fexofenadine AdvReac Mild GI SYMPTOMS Verified 10/24/18 15:40 tizanidine AdvReac Mild ITCHING-HIV Verified 10/24/18 15:40 ES gentamicin AdvReac Unknown UNKNOWN Verified 10/24/18 15:40 lorazepam AdvReac Unknown Verified 10/24/18 15:40 Home Medications Home Medications Medication Instructions Recorded Confirmed Type Calmoseptine 1 applic TOPICAL QID PRN 10/25/17 10/24/18 History Novolin R Regular U-100 Insuln 30 unit SUBCUT . Q LUNCH 10/25/17 10/24/18 History Novolin R Regular U-100 Insuln 60 unit SUBCUT QAM 10/25/17 10/24/18 History Spiriva with HandiHaler 1 cap INHALATION DAILY PRN 10/25/17 10/24/18 History Tresiba FlexTouch U-200 65 unit SUBCUT .AM & LUNCH 10/25/17 10/24/18 History albuterol sulfate 2.5 mg INHALATION QID PRN 10/25/17 10/24/18 History albuterol sulfate [Ventolin HFA] 2 puff INHALATION QID PRN 10/25/17 10/24/18 History aspirin 81 mg PO DAILY 10/25/17 10/24/18 History celecoxib [Celebrex] 200 mg PO DAILY 10/25/17 10/24/18 History duloxetine [Cymbalta] 30 mg PO BID 10/25/17 10/24/18 History fluticasone propionate [Flonase 2 spray INTRANASAL BID 10/25/17 10/24/18 History Allergy Relief] furosemide [Lasix] 40 mg PO DAILY PRN 10/25/17 10/24/18 History levothyroxine 100 mcg PO DAILY 10/25/17 10/24/18 History melatonin 10 mg PO HS 10/25/17 10/24/18 History metformin 500 mg PO QID 10/25/17 10/24/18 History metoprolol succinate 25 mg PO DAILY 10/25/17 10/24/18 History montelukast [Singulair] 10 mg PO PM 10/25/17 10/24/18 History nystatin 1 applic TOPICAL TID 10/25/17 10/24/18 History ondansetron [Zofran ODT] 4 mg PO QID PRN 10/25/17 10/24/18 History pantoprazole 40 mg PO DAILY 10/25/17 10/24/18 History polyethylene glycol 3350 [Miralax] 17 g PO DAILY PRN 10/25/17 10/24/18 History potassium chloride 20 meq PO DAILY PRN 10/25/17 10/24/18 History pregabalin [Lyrica] 200 mg PO TID 10/25/17 10/24/18 History simvastatin [Zocor] 20 mg PO HS 10/25/17 10/24/18 History sumatriptan succinate [Imitrex] 100 mg PO UD 10/25/17 10/24/18 History ursodiol 600 mg PO BID 10/25/17 10/24/18 History Arnuity Ellipta 1 inh INHALATION DAILY 10/24/18 10/24/18 History Novolin R Regular U-100 Insuln 40 unit SUBCUT .Q EVENING MEAL 10/24/18 10/24/18 History baclofen 5 mg PO HS 10/24/18 10/24/18 History mirtazapine 45 mg PO HS 10/24/18 10/24/18 History Patient History Medical History Anemia (Chronic) JOSE (obstructive sleep apnea) (Chronic) Neuropathy (Chronic) HLD (hyperlipidemia) (Chronic) Morbid obesity (Chronic) COPD (chronic obstructive pulmonary disease) (Chronic) Recurrent UTI (Chronic) Obesity hypoventilation syndrome (Chronic) Hypothyroidism (Chronic) Hypertrophic cardiomyopathy (Chronic) Hypertension (Chronic) Dyslipidemia (Chronic) Diabetes mellitus, type II (Chronic) Chronic pain disorder (Chronic 01/24/14) Chronic hypercapnic respiratory failure (Chronic) Cerebrovascular disease (Chronic) "history left thalamic stroke" CVA (cerebral vascular accident) hx of L thalamus CVA A-fib Hypertension (Chronic) Surgical History Status post tonsillectomy (Chronic) History of tonsillectomy (Chronic) Hx of nasal septoplasty (Chronic) S/P dilatation and curettage (Chronic) H/O partial nephrectomy (Chronic) Family History Father Coronary heart disease Mother Diabetes Social History Preferred Language: [place] Communication Ability: Effective Net Maker Required: No Beliefs That Will Affect Care: None marital status: Current Living Situation: Spouse Current Living Situation Comment: living at home with Other Information That Helps Us Care for You: No Feels Safe at Home: Yes Safety Concerns: Feels Safe At This Time Smoking Status: Never smoker Second Hand Exposure: No ; Hx Alcohol Use: No Hx Substance Use: No Review of Systems Review of Systems: All systems reviewed & are unremarkable except as noted in HPI & below Physical Exam Physical Exam: General: Intubated, but awake. Nods at questions. Head: normal in appearance Ears: No external abnormalities Eyes: sclera anicteric, no conjunctival injection Nose: No external abnormalities Neck and lymphatics: without lymphadenopathy or thyromegaly. Trachea Midline. No masses appreciated. Cardiovascular: regular rate and rhythm, but diminished heart sounds. Lungs: Diminished breath sounds in all lung rojas. Abdomen: Soft, normal bowel sounds. Peripheral vascular and extremities: no cyanosis, clubbing, edema. Skin: normal in appearance. No rashes or lesions visualized. Results & Data Vital Signs (Past 12 Hours) Vital Signs Temp Pulse Pulse Resp Pulse Ox 10/27/18 11:15 64 67 14 100 10/27/18 11:00 64 20 100 10/27/18 10:00 64 14 100 10/27/18 09:00 72 14 97 10/27/18 08:00 73 15 97 10/27/18 07:01 66 14 99 10/27/18 07:00 36.6 C 66 16 99 10/27/18 06:55 14 10/27/18 06:15 69 98 10/27/18 06:10 59 L 98 10/27/18 06:09 68 98 10/27/18 06:08 67 96 10/27/18 06:07 100 H 99 10/27/18 06:06 69 100 10/27/18 06:05 69 99 10/27/18 06:04 61 100 10/27/18 06:03 65 100 10/27/18 06:02 75 100 10/27/18 06:01 68 99 10/27/18 06:00 72 100 10/27/18 05:59 99 10/27/18 05:58 100 10/27/18 05:57 72 98 10/27/18 05:56 67 98 10/27/18 05:55 67 98 10/27/18 05:54 67 98 10/27/18 05:53 69 98 10/27/18 05:52 65 99 10/27/18 05:51 67 100 10/27/18 05:50 67 100 10/27/18 05:45 73 100 10/27/18 05:30 72 15 60 L 10/27/18 05:15 66 10/27/18 05:10 64 10/27/18 05:09 65 10/27/18 05:08 63 10/27/18 05:07 63 10/27/18 05:06 64 10/27/18 05:05 58 L 10/27/18 05:04 56 L 10/27/18 05:03 58 L 10/27/18 05:02 57 L 10/27/18 05:01 56 L 10/27/18 05:00 58 L 10/27/18 04:45 58 L 10/27/18 04:30 59 L 10/27/18 04:15 61 10/27/18 04:00 36.9 C 60 10/27/18 03:45 57 L 100 10/27/18 03:30 59 L 100 10/27/18 03:15 59 L 100 10/27/18 03:00 58 L 100 10/27/18 02:45 67 100 10/27/18 02:41 59 L 14 100 10/27/18 02:30 66 100 10/27/18 02:15 63 100 10/27/18 02:00 58 L 100 10/27/18 01:45 54 L 100 10/27/18 01:30 57 L 100 10/27/18 01:15 63 100 10/27/18 01:00 65 100
[2018-10-27 12:55] LABS: Calcium 7.6 mg/dl (8.5-10.1); Creatinine Clr Calc Pharmacy 114.8 ml/min; Est GFR (African American) 98.1; Est GFR (Non-African American) 84.6; Potassium 3.8 mmol/L (3.5-5.1)
[2018-10-27] MEDS ORDERED: PROPOFOL IV EMULSION 10 MG/ML 20 ML VIAL (CATH LAB USE ONLY) IV ONE (12:57)
[2018-10-27] MEDS ORDERED: fentaNYL citrate 100 MCG/2 ML VIAL IV ONE (12:58)
[2018-10-27] MEDS ORDERED: ENDOSCOPIC MARKER 5 ML SYR TOP ONE (14:41)
--- NOTE | 2018-10-27 15:04 | Discharge Summary ---
Date of Service October 27, 2018 Admission HPI Per Admitting Provider This is a 67-year-old female with significant PMH of chronic hypercapnic respiratory failure on 4L of O2 and home ventilator at , obesity hypoventilation syndrome, COPD, IDDM 2 with polyneuropathy, JOSE, diastolic CHF, history of paroxysmal SVT, history of left thalamic CVA without residual deficit, HTN, HLD, GERD, chronic pain, morbid obesity who presents to [facility] secondary to hemoptysis x1 week. is at bedside. Patient has chronic productive cough usually purulent in nature, but over the past week has been more blood-tinged. Over the past 2 days she has been coughing up camila, half-dollar size blood clots. She notes approximately 1 month ago she had something similar and was treated with oral azithromycin and her symptoms improved. She also elicits to having increased shortness of breath and noticed that her oxygen levels were decreasing to 70s and 80s at home. Complains of left-sided chest heaviness, "elephant on my chest when she would get short of breath." She has no known sick contacts. Denies any documented fever, chills, lightheadedness, dizziness, syncope, diaphoresis, palpations, shortness of breath at rest, emesis, abdominal pain, diarrhea, melena, hematochezia, hematuria, increased urgency of urgency with urination. She is mostly incontinent of urine. Overall decreased appetite with off-and-on nausea. Patient does not ambulate and mobilizes via wheelchair/scooter. Patient follows Dr. Bennett and Johanna Emmanuel PA-C for pulmonology. Last seen 10/20/18. Recommends were as follows: "Continue non-invasive ventilator during all hours of sleep - Monthly vent checks by DME - Respiratory - Regular maintenance and cleaning of NIV and associated supplies - Cough and pulmonary clearance encouraged: Flutter valve daily - Continue Spiriva + Arnuity as prescribed - Influenza vaccination: Fall 2018" Principal Diagnosis Pneumonia with hemoptysis Iron deficiency anemia 2/2 blood loss Active bleeding transverse colon mass suspicious for malignancy Anaphylactic reaction to blood product administration chronic hypercapnic and hypoxic respiratory failure on 4L home oxygen and nightly NIV morbid obesity Discharge Data Allergies Allergy/AdvReac Type Severity Reaction Status Date / Time fluoxetine Allergy Severe ANAPHYLAXIS Verified 10/24/18 15:39 Insulins Allergy Severe LANTUS/LEVEMIR- Verified 10/24/18 15:39 HIVES/THROAT SWELLING moxifloxacin Allergy Severe HIVES Verified 10/24/18 15:39 nitrofurantoin Allergy Severe HIVES Verified 10/24/18 15:39 paroxetine Allergy Severe HIVES Verified 10/24/18 15:39 Quinolones Allergy Severe AVELOX & Verified 10/24/18 15:39 LEVAQUIN-HIVES amitriptyline Allergy Intermediate Sweats and Verified 10/24/18 15:39 itching buspirone Allergy Intermediate HIVES Verified 10/24/18 15:39 cephalexin Allergy Intermediate Hives Verified 10/24/18 15:39 citalopram Allergy Intermediate HIVES-RASH Verified 10/24/18 15:39 escitalopram Allergy Intermediate HIVES-RASH Verified 10/24/18 15:40 levofloxacin Allergy Intermediate Hives Verified 10/24/18 15:40 methadone Allergy Intermediate HIVES Verified 10/24/18 15:40 Penicillins Allergy Intermediate RASH,HIVES Verified 10/24/18 15:40 Serotonin 5HT-3 Antagonists Allergy Intermediate MIGRAINES Verified 10/24/18 15:40 TO SSRIs trazodone Allergy Intermediate BLOODY Verified 10/24/18 15:40 NOSE, HEADACHES,HIVES vancomycin Allergy Intermediate HIVES Verified 10/24/18 15:40 prednisone Allergy Mild CHEST Verified 10/24/18 15:40 TIGHTNESS carbamazepine Allergy Unknown HIVES-RASH- Verified 10/24/18 15:40 ITCHINESS cefepime Allergy Unknown face & arm Verified 10/24/18 15:40 redness/itching after 2nd or 3rd dose cefepime ceftriaxone Allergy Unknown Received Verified 10/24/18 15:40 in MTU (but needed benadryl for course of therapy Cipro Allergy Unknown ABD PAINS Verified 09/08/17 09:10 ciprofloxacin Allergy Unknown ABD PAINS Verified 10/24/18 15:40 mivacurium Allergy Unknown HIVES Verified 10/24/18 15:40 sertraline Allergy Unknown UNKNOWN Verified 10/24/18 15:40 sitagliptin Allergy Unknown HIVES Verified 10/24/18 15:40 Cephalosporins Allergy Hives Verified 10/24/18 15:40 metformin [From Janumet] Allergy Unknown Verified 10/25/18 15:47 Tetracyclines AdvReac Severe HIVES Verified 10/24/18 15:40 Sulfa (Sulfonamide AdvReac Intermediate MIGRAINES Verified 10/24/18 15:40 Antibiotics) fexofenadine AdvReac Mild GI SYMPTOMS Verified 10/24/18 15:40 tizanidine AdvReac Mild ITCHING-HIV Verified 10/24/18 15:40 ES gentamicin AdvReac Unknown UNKNOWN Verified 10/24/18 15:40 lorazepam AdvReac Unknown Verified 10/24/18 15:40 Consultations 10/24/18 18:19 ED Decision to Admit Stat 10/24/18 21:19 Consult Case Management - Discharge Planning Routine 10/25/18 09:00 Consult Gastroenterology Routine Consult Pulmonology Routine 10/25/18 20:40 Consult Top Dyeing Machine Tender Stat 10/25/18 20:53 Consult Case Management - Discharge Planning Routine 10/27/18 10:44 Consult Allergy / Immunology Routine Procedures Performed Operation Date: 10/26/18 11:30 Actual Procedures p Esophagogastroduodenoscopy - Yoselin Burrows MD Operation Date: 10/27/18 09:30 <No data on this case meets the specified criteria> Ordered Studies 10/24/18 15:17 CT angio chest PE protocol Stat 10/24/18 17:02 CT abd pelvis IV con only Stat 10/26/18 00:50 CT abd pelvis wo con Urgent CT chest wo con Urgent CT head/brain wo con Urgent Short CBC 10/27/18 Range/Units 04:08 WBC 6.14 (4.8-10.8) K/uL Hgb 6.5 L* (12.0-16.0) g/dL Hct 22.9 L (37-47) % Plt Count 113 L (130-400) K/uL BMP 10/27/18 10/27/18 04:08 11:56 Sodium 142 139 Potassium 2.9 L D 3.8 D Chloride 99 97 L Carbon Dioxide 35 H 33 H BUN 26 H 25 H Creatinine 0.75 0.73 Glucose 92 122 H Calcium 7.5 L 7.6 L Hospital Course (1) Pneumonia: (2) Hemoptysis: (3) Iron deficiency anemia: (4) Chronic hypercapnic respiratory failure: (5) Diabetes mellitus, type II: (6) Hypothyroidism: (7) Morbid obesity: (8) Closed compression fracture of body of lumbar vertebra: (9) Adrenal adenoma: (10) Hypertrophic cardiomyopathy: (11) Paroxysmal SVT (supraventricular tachycardia): (12) Crohn disease: (13) Diabetic polyneuropathy: 67-year-old female with a history of chronic hypercapnic respiratory failure on 4 L of home O2 presented with concerns of hemoptysis. She had been treated as an outpatient with azithromycin one month prior to arrival but persistently noted streaks of blood in her sputum which increased just prior to presentation in addition to a return of her respiratory symptoms. She was admitted to the Hospitalist service and started on IV azithromycin in addition to Rocephin with pretreatment for her cephalosporin allergy with Benadryl. She did well with this and Pulmonology was consulted to see her the following day. They recommended the cause of the hemoptysis was not clear with the most likely source being infiltrates at both lung bases. She was noted to be significantly anemic with an H&H of 7.5/29 and an MCV of 77 on arrival. This was down from her baseline of 10/35 one year prior. She denied any overt bleeding. Labs ref lected in iron deficiency anemia. CT imaging of her abdomen was performed revealing a 2 cm polypoid lesion within the transverse colon. Gastroenterology was consulted and recommended endoscopy in the setting of significant anemia. Prior to this being performed she was given a blood transfusion, however, within 10 minutes of receiving the transfusion for which she had been premedicated, she developed flushing and pruritus of the chest which progressed to chest pressure and headache with some stridor consistent with anaphylaxis. She received additional Benadryl, Solu-Medrol, and was given an epinephrine injection in her outer thigh. During this time her systolic blood pressure remained in the 130s and her heart rate was in the 95-110 range. She did not developing worsening hypoxia. She was given a neb treatment and was sent to the ICU for close monitoring overnight. Azithromycin/Rocephin was changed to Aztreonam for pneumonia treatment to avoid further issues with reactions. Shortly after arriving to the ICU she became less responsive and developed an acute respiratory acidosis prompting intubation. She remained intubated for the endoscopic procedure the following day. An upper endoscopy was performed only, secondary to suboptimal prep for lower endoscopy. Upper endoscopy revealed a normal esophagus. She also had a normal stomach, normal duodenal bulb and second portion of the duodenum with no evidence of upper GI bleeding. Two mL of GoLYTELY was administered. She remained intubated overnight. On 10/27 a colonoscopy was performed revealing a frond-like/villous, fungating, infiltrative and ulcerated nonobstructing large mass in the transverse colon. The mass was partially circumferential involving one-half of the lumen circumference. It measured 4 cm in length with minimal oozing present suggesting this is the source of her anemia. Biopsies were taken with cold forceps for histology. The area was tattooed. The retroflexed view of the distal rectum and anal verge was normal and showed no anal or rectal abnormalities. This mass was not amenable to local treatment and referral to a surgeon in the specialty was needed for resection. Therefore, the patient was transferred to [facility] for definitive treatment of this mass in addition to specialized supportive care with washed red blood cell products unavailable at transferring facility. She was transferred in critical condition intubated and sedated. At time of discharge a [id number] examination was performed revealing an intubated sedated patient who was hemodynamically stable. She was on a significant amount of sedation with Versed and PRN fentanyl. Lungs were clear to auscultation. Body habitus was morbidly obese. Heart exam revealed S1/S2 with no evidence of murmurs. No significant pitting edema was seen. Close primary care follow-up was recommended after discharge from receiving facility. Family was updated. Of note, a new adrenal adenoma was also seen on CT imaging of the abdomen pelvis. The patient was updated about this at the time of the finding and will defer biochemical work-up to primary care doctor after discharge. She was also seen to have a new closed compression fracture of the lumbar vertebral body. However she reports being wheelchair-bound/bedbound for the last 5 years and denies any new pain or trauma to this area. She uses Celebrex regularly for back pain that is chronic. At time of discharge blood cultures were preliminarily negative after 48 hours. H/H was 6.5/23. Current Inpatient Medications (on 10/27/18) Acetaminophen (Tylenol) 650 mg PO Q4H PRN PRN Reason: Pain Stop: 11/24/18 01:02 Last Admin: 10/25/18 02:09 Dose: 650 mg Documented by: Albuterol (Duoneb) 3 ml NEB QIDR WALDO Stop: 11/24/18 06:59 Last Admin: 10/27/18 15:13 Dose: 3 ml Documented by: Dextrose (Dextrose 50%) 25 - 50 ml IV UD PRN; Protocol PRN Reason: Hypoglycemia Protocol Stop: 11/23/18 21:18 Last Admin: 10/27/18 07:10 Dose: 25 ml Documented by: Duloxetine HCl (Cymbalta) 30 mg PO BID [facility] Stop: 11/23/18 21:18 Last Admin: 10/25/18 20:49 Dose: 30 mg Documented by: Fentanyl Citrate (Fentanyl Citrate) 100 mcg IV Q2H PRN PRN Reason: Moderate Pain (4,5,6) Stop: 11/09/18 00:56 Last Admin: 10/27/18 14:53 Dose: 100 mcg Documented by: Fluticasone Propionate (Flonase) 2 sprays NA BID [facility] Stop: 11/23/18 21:18 Last Admin: 10/27/18 08:00 Dose: Not Given Documented by: Fluticasone Propionate (Flovent Hfa 110mch) 1 puffs INH BID [facility] Stop: 11/24/18 08:59 Last Admin: 10/27/18 08:00 Dose: Not Given Documented by: Glucagon (Glucagen) 1 mg SQ UD PRN; Protocol PRN Reason: Hypoglycemia Protocol Stop: 11/23/18 21:18 Glucose (Glucose 40%) 15 - 30 gm PO UD PRN; Protocol PRN Reason: Hypoglycemia Protocol Stop: 11/23/18 21:18 Glucose (Dex4 Glucose) 4 - 8 tabs PO UD PRN; Protocol PRN Reason: Hypoglycemia Protocol Stop: 11/23/18 21:18 Sodium Chloride (Nss) 250 mls @ 15 mls/hr IV .[id number] PRN PRN Reason: For Transfusion Stop: 11/24/18 16:51 Aztreonam 2,000 mg/ Dextrose 110 mls @ 100 mls/hr IV Q8H WALDO; Protocol Stop: 11/01/18 19:59 Last Infusion: 10/27/18 12:14 Dose: Infused Documented by: Midazolam HCl (Versed) 125 mg in 250 mls @ 20 mls/hr IV .[id number] PRN; Protocol PRN Reason: Titration Stop: 11/25/18 00:24 Last Titration: 10/27/18 11:52 Dose: 10 mg/hr, 20 mls/hr Documented by: Famotidine 20 mg/ Syringe 5 mls @ 2.5 mls/min IV BID [facility] Stop: 11/25/18 08:59 Last Admin: 10/27/18 08:00 Dose: 2.5 mls/min Documented by: Insulin Human Regular 250 (units/ Sodium Chloride) 250 mls @ 0 mls/hr IV .Q0M [facility]; Protocol Stop: 11/25/18 09:29 Last Titration: 10/27/18 07:04 Dose: 0 units/hr, 0 mls/hr Documented by: Parenteral Electrolytes (Normosol-R) 1,000 mls @ 125 mls/hr IV .Q8H [facility] Stop: 11/26/18 11:44 Last Admin: 10/27/18 12:47 Dose: 125 mls/hr Documented by: Insulin Aspart (Novolog Flexpen) 0 units SC Q4 WALDO Stop: 11/26/18 15:59 Insulin Human NPH (Novolin N Nph) 50 units SC TIDM [facility]; Protocol Stop: 11/24/18 07:59 Last Admin: 10/25/18 17:09 Dose: 50 units Documented by: Levothyroxine Sodium (Synthroid) 100 mcg PO DAILYBB [facility] Stop: 11/24/18 06:29 Last Admin: 10/27/18 05:34 Dose: 100 mcg Documented by: Metoprolol Succinate (Toprol Xl) 25 mg PO DAILY [facility] Stop: 11/24/18 08:59 Last Admin: 10/26/18 08:35 Dose: Not Given Documented by: Mirtazapine (Remeron Solutab) 45 mg PO HS [facility] Stop: 11/23/18 21:18 Last Admin: 10/26/18 20:16 Dose: 45 mg Documented by: Miscellaneous (Carbohydrates For Hypoglycemia) 15 - 30 gm PO UD PRN PRN Reason: Hypoglycemia Treatment Stop: 11/23/18 21:18 Miscellaneous (Icu Protocol For Hyperglycemia) 1 ea N/A PRN PRN; Protocol PRN Reason: Hyperglycemia Protocol Stop: 10/27/18 20:52 Miscellaneous Information (Consult Glycemic Management Pharmacy) 1 ea N/A UD PRN; Protocol PRN Reason: Consult Stop: 11/23/18 21:37 Montelukast Sodium (Singulair) 10 mg PO PM [facility] Stop: 11/23/18 21:18 Last Admin: 10/26/18 20:16 Dose: 10 mg Documented by: Nystatin (Mycostatin) 1 appln EXT TID WALDO Stop: 11/23/18 21:18 Last Admin: 10/27/18 12:48 Dose: 1 appln Documented by: Ondansetron HCl (Zofran) 4 mg IV Q6H PRN PRN Reason: Nausea Stop: 11/24/18 18:11 Last Admin: 10/25/18 18:40 Dose: 4 mg Documented by: Pantoprazole Sodium (Protonix) 40 mg PO DAILY WALDO Stop: 11/24/18 08:59 Last Admin: 10/26/18 08:35 Dose: Not Given Documented by: Pregabalin (Lyrica) 200 mg PO TID WALDO Stop: 11/23/18 21:18 Last Admin: 10/27/18 12:45 Dose: 200 mg Documented by: Simvastatin (Zocor) 20 mg PO HS WALDO Stop: 11/23/18 21:18 Last Admin: 10/24/18 22:53 Dose: 20 mg Documented by: Sodium Biphosphate/Sodium Phosphate (Fleet Enema) 132 ml UT Q6 WALDO Stop: 11/25/18 17:59 Last Admin: 10/27/18 12:40 Dose: Not Given Documented by: Tiotropium [place] (Spiriva) 1 puffs INH DAILY PRN PRN Reason: Shortness Of Breath Stop: 11/23/18 21:18 Ursodiol (Actigall) 600 mg PO BID WALDO Stop: 11/23/18 21:18 Last Admin: 10/25/18 08:19 Dose: 600 mg Documented by: Total Time Total Time Spent Total Time Spent (In Minutes): 60 Total Time Includes: Examination of the Patient, Discharge Planning, Medication Reconciliation, Communication With Other Providers and Other (arranged transport, including ID of accepting physician and coordination with staff. ) Discharge Plan Discharge Items Patient Disposition: Transfer Acute Care Hospital Reason For Visit: HEMOPTYSIS Discharge Diagnosis: Pneumonia with hemoptysis Iron deficiency anemia 2/2 blood loss Active bleeding transverse colon mass suspicious for malignancy Anaphylactic reaction to blood product administration chronic hypercapnic and hypoxic respiratory failure on 4L home oxygen and nightly NIV morbid obesity Condition on Discharge: Critical Activity: Per Instructions section Activity Comment: per receiving facility Non-emergency contact: Primary Care Provider Call non-emergency contact if: you have any medication questions, your symptoms worsen, your pain is not controlled, your pain is worsening, your pain is unusua l for you, your pain is concerning for you and you have a fever Follow-up/Referrals: Bairon Owens MD [Primary Care Provider] - Diet: Carb Consistent or DM2 and Heart Healthy Addtl Attending Provider Instructions: You are being transferred to another facility for definitive care. It is recommended that you follow-up with your primary care physician within one week of discharge. It was a pleasure taking care of you! Please call if you have any questions or problems. You can reach a [facility] hospitalist on duty at [facility] 24 hours a day by calling [phone]. Take care of yourself. Deidre Mayo DO [facility] Hospitalist Add Tree Driller Provider Instructions: Call [facility] for follow-up with Allergy Immunology for further evaluation of medication allergies. Pending Studies at Discharge: Yes Studies:: tumor markers, final blood cultures, pathology of colon mass Stand-Alone Forms: My [facility] Skilled Items Patient informed of condition?: Yes DNR: No Discharge Level of Care: Other Communicable Disease: No Discharge Prognosis: Other Lines: Peripheral IV Urinary Catheter: Yes Medications and DC Order Prescriptions: Continued Novolin R Regular U-100 Insuln 100 unit/mL Solution 60 unit SUBCUT QAM RF: 0 Tresiba FlexTouch U-200 200 unit/mL (3 mL) Insulin Pen 65 unit SUBCUT .AM & LUNCH RF: 0 celecoxib [Celebrex] 200 mg Capsule 200 mg PO DAILY RF: 0 furosemide [Lasix] 40 mg Tablet 40 mg PO DAILY PRN (Reason: Edema) RF: 0 metformin 500 mg Tablet 500 mg PO QID RF: 0 albuterol sulfate 2.5 mg /3 mL (0.083 %) Solution For Nebulization 2.5 mg INHALATION QID PRN (Reason: Shortness Of Breath Or Wheezing) RF: 0 polyethylene glycol 3350 [Miralax] 17 gram Powder In Packet 17 g PO DAILY PRN (Reason: Constipation) RF: 0 sumatriptan succinate [Imitrex] 100 mg Tablet 100 mg PO UD RF: 0 aspirin 81 mg Tablet,Delayed Release (Dr/Ec) 81 mg PO DAILY RF: 0 levothyroxine 100 mcg Tablet 100 mcg PO DAILY RF: 0 pantoprazole 40 mg Tablet,Delayed Release (Dr/Ec) 40 mg PO DAILY RF: 0 simvastatin [Zocor] 20 mg Tablet 20 mg PO HS RF: 0 Novolin R Regular U-100 Insuln 100 unit/mL Solution 30 unit subcut . Q LUNCH RF: 0 ursodiol 300 mg Capsule 600 mg PO BID RF: 0 montelukast [Singulair] 10 mg Tablet 10 mg PO PM RF: 0 metoprolol succinate 25 mg Tablet Extended Release 24 Hr 25 mg PO DAILY RF: 0 nystatin 100,000 unit/gram Powder 1 applic TOPICAL TID RF: 0 albuterol sulfate [Ventolin HFA] 90 mcg/actuation Hfa Aerosol Inhaler 2 puff INHALATION QID PRN (Reason: Shortness Of Breath) RF: 0 ondansetron [Zofran ODT] 4 mg Tablet,Disintegrating 4 mg PO QID PRN (Reason: Nausea) RF: 0 fluticasone propionate [Flonase Allergy Relief] 50 mcg/actuation [place],Suspension 2 spray INTRANASAL BID RF: 0 Spiriva with HandiHaler 18 mcg Capsule, W/Inhalation Device 1 cap INHALATION DAILY PRN (Reason: Shortness Of Breath) RF: 0 duloxetine [Cymbalta] 30 mg Capsule,Delayed Release(Dr/Ec) 30 mg PO BID RF: 0 pregabalin [Lyrica] 200 mg Capsule 200 mg PO TID RF: 0 Calmoseptine 0.44-20.6 % Ointment 1 applic TOPICAL QID PRN (Reason: Itching) RF: 0 potassium chloride 20 mEq Tablet Extended Release 20 meq PO DAILY PRN (Reason: TAKE WITH LASIX) RF: 0 melatonin 10 mg Tablet 10 mg PO HS RF: 0 Novolin R Regular U-100 Insuln 100 unit/mL solution 40 unit subcut .Q EVENING MEAL RF: 0 mirtazapine 45 mg tablet 45 mg PO HS RF: 0 baclofen 10 mg tablet 5 mg PO HS RF: 0 Arnuity Ellipta 100 mcg/actuation blister with device 1 inh inhalation DAILY RF: 0 Discharge Orders: Discharge Order (Routine); Ordered 10/27/18 Ordered By: Deidre Mayo Admission Data Admit Date/Time: 09/10/19 19:27 Attending Provider: Deidre Mayo Admit Provider: Reva Larose I. Primary Care Provider: Bairon Owens Other Providers: Ruben Mak ; Reva Larose I. ; Yoselin Burrows ; Dave Bennett ; Kendrick Love ; Thelma Dillard Other Interventions: Discharge Summary Assessment (RN) Last Done: 10/27/18 15:24
--- NOTE | 2018-10-27 15:09 | GI REPORT ---
Patient Name: Sangeetha Ramon Procedure Date: 10/27/2018 12:59 PM Date of : 1950 Admit Type: Inpatient Age: 67 Gender: Female Attending MD: Yoselin Burrows MD Procedure: Colonoscopy Providers: Yoselin Burrows MD Referring MD: Georgia Verdugo, Deidre Mayo Do, Brian W. d.o. Shippert Indications: Abnormal CT of the GI tract, Anemia Medicines: Monitored Anesthesia Care Complications: No immediate complications. Estimated Blood Loss: Estimated blood loss: none. Procedure: Pre-Anesthesia Assessment: - Prior to the procedure, a History and Physical was performed, and patient medications and allergies were reviewed. The patient is unable to give consent secondary to the patient being legally incompetent to consent. The risks and benefits of the procedure and the sedation options and risks were discussed with the patient's spouse. All questions were answered and informed consent was obtained. Patient identification and proposed procedure were verified by the physician and the nurse in the procedure room. Mental Status Examination: sedated. Airway Examination: orotracheal intubation. Respiratory Examination: clear to auscultation. CV Examination: normal. ASA Grade Assessment: III - A patient with severe systemic disease. After reviewing the risks and benefits, the patient was deemed in satisfactory condition to undergo the procedure. The anesthesia plan was to use deep sedation / analgesia. Immediately prior to administration of medications, the patient was re-assessed for adequacy to receive sedatives. The heart rate, respiratory rate, oxygen saturations, blood pressure, adequacy of pulmonary ventilation, and response to care were monitored throughout the procedure. The physical status of the patient was re-assessed after the procedure. After I obtained informed consent, the scope was passed under direct vision. Throughout the procedure, the patient's blood pressure, pulse, and oxygen saturations were monitored continuously. The Colonoscope was introduced through the anus and advanced to the cecum, identified by appendiceal orifice and ileocecal valve. The colonoscopy was performed without difficulty. The patient tolerated the procedure well. The ileocecal valve, appendiceal orifice, and rectum were photographed. The quality of the bowel preparation was fair. Findings: The perianal and digital rectal examinations were normal. A frond-like/villous, fungating, infiltrative and ulcerated non-obstructing large mass was found in the transverse colon. The mass was partially circumferential (involving one-half of the lumen circumference). The mass measured four cm in length. Minimal oozing was present suggesting this is the source of her anemia. Biopsies were taken with a cold forceps for histology. Verification of patient identification for the specimen was done by the physician and nurse using the patient's name and date. Area was tattooed with an injection of 3 mL of Spot (carbon black). The retroflexed view of the distal rectum and anal verge was normal and showed no anal or rectal abnormalities. Impression: - Preparation of the colon was fair. 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 Biopsied. Tattooed. - The distal rectum and anal verge are normal on retroflexion view. Recommendation: - Await pathology results. - Refer to a surgeon for resection. - Repeat colonoscopy in 1 year for surveillance after resection. - Recall Gi if needed. Yoselin Burrows MD 10/27/2018 3:09:04 PM This report has been signed electronically. Note Initiated On: 10/27/2018 12:59 PM Number of Addenda: 0 I attest to the content of the Intraoperative Record and orders documented therein, exceptions below {[id number]}
--- NOTE | 2018-10-27 15:23 | Critical Care Progress Note ---
Date of Service October 27, 2018 Assessment & Plan (1) Admitted to intensive care unit: NEUR[facility] - [facility] ICU: NEGATIVE History of CVA CARDIAC/VASCULAR - History of hypertension, paroxysmal SVT, and A. fib. -Continue home medications as tolerated. Diastolic heart failure. -Monitor on telemetry. RESPIRATORY - Hemoptysis x1 week: Currently intubated -Continue to monitor for worsening quantity of hemoptysis. -Consider nebulized TXA in the event of crisis. Bilateral lower lobe pneumonia: Initially on azithromycin and Rocephin., Changed to aztreonam secondary to concerns for reaction to Rocephin. -Continue nebulizers. Obesity hypoventilation syndrome: -Currently intubated Chronic respiratory failure with hypercapnia: -Currently intubated GI/NUTRITION - Colon polyp: Colon polyp was noticed on CT scan, patient was prepped for colonoscopy over the night of 10/26 and to 10/27. Required neostigmine on the morning of 10/27 to complete the prep. 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 Measured to be 4 cm in length. Oozing was present suggesting this was the source of her anemia. BX were taken area was tattooed. Based on these findings the patient will need transfer escalation of care, and surgical removal of the polyp. -Transfer for surgical management of polyp RENAL/LYTES - -Replete electrolytes as indicated Hypokalemia Patient significant hypokalemia this morning to 2.8, this is expected given her large volume of diarrhea. -Repleted as indicated - History of chronic UTIs. Ferrell in place ENDO - DMII: Insulin drip on hold Hypothyroidism: Continue home Synthroid dosing. HEME - Anemia: Given findings on colonoscopy her anemia is likely secondary to GI blood losses from polyp. -Transfer for surgical resection of polyp Transfusion reaction: On admission patient was given a unit of blood and subsequently developed a transfusion reaction. She was given 25 mg of oral and 25 mg of IV Benadryl. She also received Solu-Medrol at that time. There is the transfusion reaction resolved however she required intubation due to worsening mentation, and respiratory status. She is been intubated since this time. Hemoglobin this morning was 6.4, and trending down she likely needs additional blood transfusions. Dr. Dillard was consulted from allergy for his recommendations. He recommended using washed red blood cells, and pretreatment with Benadryl and Solu-Medrol. Unfortunately we are unable to locate washed red blood cells for transfusion locally however we have alerted the accepting center that the patient will need this and they have it on standby. -Excepting transfer facility will provide wash red blood cells ID - Bilateral lower lobe infiltrative changes LEFT greater than right: Currently on aztreonam LINES/IV ACCESS - PIVs x2 RIGHT Forearm 20g Endurance Catheter RIGHT Radial A-Line DVT PROPHYLAXIS - Hold 2/2 worsening anemia and hemoptysis. SCDs Patient for allowing me to participate in this patient's care. Please refer to my attending Dr. Love's documentation below for further recommendations Supervising Physician Co-Signing Physician Notes Dr. Harris was resident physician during care of patient. I separately evaluated patient for edge portions of the history and the exam. I was present during the critical portion of medical decision making, and I discussed the case with the resident. I generally agree with the findings and plan. Patient was discussed on multidisciplinary rounds. I assisted with intravenous medication delivery during the colonoscopy. Patient has a secured airway. Patient received a total of 125 mg of propofol via 10 mg aliquots and 100 mcg of fentanyl and 250 mcg aliquots during the entire colonoscopy procedure. In discussion with gastroenterology the patient has a continuously oozing transverse colon mass that is not amenable to local resection. She requires blood transfusions however we have a limited blood banking ability given that she requires washed red blood cells. We do not have surgical capabilities to support surgery of the morbidly obese patient. Accordingly the patient has been accepted by Dr. Dillard at [facility] for further evaluation and treatment. We have attempted to locate washed red blood cells at the present time, we have not been able to locate them prior to her transfer to [facility]. The patient has remained hemodynamically stable and does not show obvious signs of extremis secondary to ongoing gastrointestinal blood losses. Because the patient will require blood transfusion and is already had a blood transfusion related reaction and the difficult airway she will remain intubated for her tra nsfer. I feel the risks of extubation outweigh the benefits of remaining intubated. I have personally spent 90 minutes of critical care time in the direct management of this patient. This is a life/limb threatening event. This includes time spent evaluating patient, direct bedside care, chart review, placing orders, interpretation of diagnostic studies, discussion with consultants, patient, and/or family members regarding treatment decisions, as well as other required patient management activities. This time is exclusive of all separately billable procedures, and teaching time and separate from and in addition to any other critical care service time. Subjective Interval history limited to patient's intubated status. Patient doing well today, she did well with a bowel prep overnight, demonstrating effective cleanout. An colonoscopy was performed this afternoon the patient tolerated it well. Colonoscopy demonstrated a large neoplasm with central area of ulceration turning for malignancy. This was discussed with the patient after the procedure, and we alerted her that we will plan to transfer her to either [place] or [place] for escalation of care. We relayed the plan to the , who was understanding. Patient indicated her understanding by giving a thumbs up simple. No further concerns are present, all questions answered Physical Exam Physical Exam: General: Morbidly obese female, laying in bed, no acute distress, intubated HEENT: Normocephalic atraumatic Neck: Unable to assess secondary to adiposity Cardiac: Regular rate and rhythm, I did not appreciate any murmurs rubs or gallops, normal S1, normal S2, 2+ pedal edema bilaterally Respiratory: Clear to auscultation bilaterally GI: Bowel sounds present, nontender to palpation MSK: Deferred Skin: Normal to visual inspection Neuro: Alert unable to assess orientation secondary to intubation Psych: Calm, cooperative, responsive to staff Results & Data Vital Signs (Past 12 Hours) Vital Signs Temp Pulse Pulse Resp Pulse Ox 10/27/18 07:01 66 14 99 10/27/18 07:00 36.6 C 66 16 99 10/27/18 06:55 14 10/27/18 06:15 69 98 10/27/18 06:10 59 L 98 10/27/18 06:09 68 98 10/27/18 06:08 67 96 10/27/18 06:07 100 H 99 10/27/18 06:06 69 100 10/27/18 06:05 69 99 10/27/18 06:04 61 100 10/27/18 06:03 65 100 10/27/18 06:02 75 100 10/27/18 06:01 68 99 10/27/18 06:00 72 100 10/27/18 05:59 99 10/27/18 05:58 100 10/27/18 05:57 72 98 10/27/18 05:56 67 98 10/27/18 05:55 67 98 10/27/18 05:54 67 98 10/27/18 05:53 69 98 10/27/18 05:52 65 99 10/27/18 05:51 67 100 10/27/18 05:50 67 100 10/27/18 05:45 73 100 10/27/18 05:30 72 15 60 L 10/27/18 05:15 66 10/27/18 05:10 64 10/27/18 05:09 65 10/27/18 05:08 63 10/27/18 05:07 63 10/27/18 05:06 64 10/27/18 05:05 58 L 10/27/18 05:04 56 L 10/27/18 05:03 58 L 10/27/18 05:02 57 L 10/27/18 05:01 56 L 10/27/18 05:00 58 L 10/27/18 04:45 58 L 10/27/18 04:30 59 L 10/27/18 04:15 61 10/27/18 04:00 36.9 C 60 10/27/18 03:45 57 L 100 10/27/18 03:30 59 L 100 10/27/18 03:15 59 L 100 10/27/18 03:00 58 L 100 10/27/18 02:45 67 100 10/27/18 02:41 59 L 14 100 10/27/18 02:30 66 100 10/27/18 02:15 63 100 10/27/18 02:00 58 L 100 10/27/18 01:45 54 L 100 10/27/18 01:30 57 L 100 10/27/18 01:15 63 100 10/27/18 01:00 65 100 10/27/18 00:45 66 100 10/27/18 00:30 64 100 10/27/18 00:15 70 96 10/27/18 00:00 36.9 C 65 99 10/26/18 23:45 62 97 10/26/18 23:30 72 98 10/26/18 23:20 63 14 99 10/26/18 23:15 62 100 10/26/18 23:00 66 99 10/26/18 22:45 67 100 10/26/18 22:30 70 100 10/26/18 22:15 69 97 10/26/18 22:00 71 98 10/26/18 21:45 72 99 10/26/18 21:30 77 100 10/26/18 21:15 76 100 10/26/18 21:00 76 10/26/18 20:45 82 10/26/18 20:30 73 100 Laboratory Results 10/27/18 10/27/18 10/27/18 Range/Units 14:20 14:20 11:56 WBC (4.8-10.8) K/uL RBC (4.2-5.4) M/uL Hgb (12.0-16.0) g/dL Hct (37-47) % MCV (80-100) fL MCH (25-34) pg MCHC (32-36) g/dL RDW Std Deviation (36.4-46.3) fL RDW Coeff of Duy (11.5-14.5) % Plt Count (130-400) K/uL MPV (7.4-10.4) fL Immature Gran % (Auto) % Neut % (Auto) % Lymph % (Auto) % [place] % (Auto) % Eos % (Auto) % Baso % (Auto) % Immature Gran # (Auto) (0.00-0.02) K/uL Neut # (Auto) (1.4-6.5) K/uL Lymph # (Auto) (1.2-3.4) K/uL [place] # (Auto) (0.11-0.59) K/uL Eos # (Auto) (0-0.5) K/uL Baso # (Auto) (0-0.2) K/uL Hypochromasia Anisocytosis Microcytosis PT (9.0-12.0) Seconds INR (0.9-1.1) Sodium 139 (136-145) mmol/L Potassium 3.8 D (3.5-5.1) mmol/L Chloride 97 L (98-107) mmol/L Carbon Dioxide 33 H (21-32) mmol/L Anion Gap 9.0 (3-11) BUN 25 H (7-18) mg/dl Creatinine 0.73 (0.6-1.2) mg/dl Est Cr Clr Drug Dosing 114.8 ml/min Est GFR ( Amer) 98.1 Est GFR (Non-Af Amer) 84.6 BUN/Creatinine Ratio 34.0 H (10-20) Glucose 122 H (70-99) mg/dl POC Glucose (70-99) Calcium 7.6 L (8.5-10.1) mg/dl Phosphorus (2.5-4.9) mg/dl Magnesium (1.8-2.4) mg/dl Carcinoembryonic Ag Pending CA 19-9 Antigen Pending CA 125 Antigen Pending Reaction Path Interpret 10/27/18 10/27/18 10/27/18 Range/Units 07:24 07:01 06:00 WBC (4.8-10.8) K/uL RBC (4.2-5.4) M/uL Hgb (12.0-16.0) g/dL Hct (37-47) % MCV (80-100) fL MCH (25-34) pg MCHC (32-36) g/dL RDW Std Deviation (36.4-46.3) fL RDW Coeff of Duy (11.5-14.5) % Plt Count (130-400) K/uL MPV (7.4-10.4) fL Immature Gran % (Auto) % Neut % (Auto) % Lymph % (Auto) % [place] % (Auto) % Eos % (Auto) % Baso % (Auto) % Immature Gran # (Auto) (0.00-0.02) K/uL Neut # (Auto) (1.4-6.5) K/uL Lymph # (Auto) (1.2-3.4) K/uL [place] # (Auto) (0.11-0.59) K/uL Eos # (Auto) (0-0.5) K/uL Baso # (Auto) (0-0.2) K/uL Hypochromasia Anisocytosis Microcytosis PT (9.0-12.0) Seconds INR (0.9-1.1) Sodium (136-145) mmol/L Potassium (3.5-5.1) mmol/L Chloride (98-107) mmol/L Carbon Dioxide (21-32) mmol/L Anion Gap (3-11) BUN (7-18) mg/dl Creatinine (0.6-1.2) mg/dl Est Cr Clr Drug Dosing ml/min Est GFR ( Amer) Est GFR (Non-Af Amer) BUN/Creatinine Ratio (10-20) Glucose (70-99) mg/dl POC Glucose 83 72 99 (70-99) Calcium (8.5-10.1) mg/dl Phosphorus (2.5-4.9) mg/dl Magnesium (1.8-2.4) mg/dl Carcinoembryonic Ag CA 19-9 Antigen CA 125 Antigen Reaction Path Interpret 10/27/18 10/27/18 10/27/18 Range/Units 04:55 04:08 04:08 WBC (4.8-10.8) K/uL RBC (4.2-5.4) M/uL Hgb (12.0-16.0) g/dL Hct (37-47) % MCV (80-100) fL MCH (25-34) pg MCHC (32-36) g/dL RDW Std Deviation (36.4-46.3) fL RDW Coeff of Duy (11.5-14.5) % Plt Count (130-400) K/uL MPV (7.4-10.4) fL Immature Gran % (Auto) % Neut % (Auto) % Lymph % (Auto) % [place] % (Auto) % Eos % (Auto) % Baso % (Auto) % Immature Gran # (Auto) (0.00-0.02) K/uL Neut # (Auto) (1.4-6.5) K/uL Lymph # (Auto) (1.2-3.4) K/uL [place] # (Auto) (0.11-0.59) K/uL Eos # (Auto) (0-0.5) K/uL Baso # (Auto) (0-0.2) K/uL Hypochromasia Anisocytosis Microcytosis PT 11.5 (9.0-12.0) Seconds INR 1.1 (0.9-1.1) Sodium 142 (136-145) mmol/L Potassium 2.9 L D (3.5-5.1) mmol/L Chloride 99 (98-107) mmol/L Carbon Dioxide 35 H (21-32) mmol/L Anion Gap 8.0 (3-11) BUN 26 H (7-18) mg/dl Creatinine 0.75 (0.6-1.2) mg/dl Est Cr Clr Drug Dosing 109.7 ml/min Est GFR ( Amer) 94.9 Est GFR (Non-Af Amer) 81.9 BUN/Creatinine Ratio 34.0 H (10-20) Glucose 92 (70-99) mg/dl POC Glucose 111 H (70-99) Calcium 7.5 L (8.5-10.1) mg/dl Phosphorus 3.8 (2.5-4.9) mg/dl Magnesium 1.8 (1.8-2.4) mg/dl Carcinoembryonic Ag CA 19-9 Antigen CA 125 Antigen Reaction Path Interpret 10/27/18 10/27/18 10/27/18 Range/Units 04:08 03:53 03:06 WBC 6.14 (4.8-10.8) K/uL RBC 3.17 L (4.2-5.4) M/uL Hgb 6.5 L* (12.0-16.0) g/dL Hct 22.9 L (37-47) % MCV 72.2 L (80-100) fL MCH 20.5 L (25-34) pg MCHC 28.4 L (32-36) g/dL RDW Std Deviation 52.9 H (36.4-46.3) fL RDW Coeff of Duy 20.1 H (11.5-14.5) % Plt Count 113 L (130-400) K/uL MPV 10.3 (7.4-10.4) fL Immature Gran % (Auto) 0.5 % Neut % (Auto) 60.1 % Lymph % (Auto) 27.2 % [place] % (Auto) 9.8 % Eos % (Auto) 2.1 % Baso % (Auto) 0.3 % Immature Gran # (Auto) 0.03 H (0.00-0.02) K/uL Neut # (Auto) 3.69 (1.4-6.5) K/uL Lymph # (Auto) 1.67 (1.2-3.4) K/uL [place] # (Auto) 0.60 H (0.11-0.59) K/uL Eos # (Auto) 0.13 (0-0.5) K/uL Baso # (Auto) 0.02 (0-0.2) K/uL Hypochromasia Present Anisocytosis Present Microcytosis Present PT (9.0-12.0) Seconds INR (0.9-1.1) Sodium (136-145) mmol/L Potassium (3.5-5.1) mmol/L Chloride (98-107) mmol/L Carbon Dioxide (21-32) mmol/L Anion Gap (3-11) BUN (7-18) mg/dl Creatinine (0.6-1.2) mg/dl Est Cr Clr Drug Dosing ml/min Est GFR ( Amer) Est GFR (Non-Af Amer) BUN/Creatinine Ratio (10-20) Glucose (70-99) mg/dl POC Glucose 100 H 98 (70-99) Calcium (8.5-10.1) mg/dl Phosphorus (2.5-4.9) mg/dl Magnesium (1.8-2.4) mg/dl Carcinoembryonic Ag CA 19-9 Antigen CA 125 Antigen Reaction Path Interpret 10/27/18 10/27/18 10/27/18 Range/Units 01:56 01:08 00:49 WBC (4.8-10.8) K/uL RBC (4.2-5.4) M/uL Hgb (12.0-16.0) g/dL Hct (37-47) % MCV (80-100) fL MCH (25-34) pg MCHC (32-36) g/dL RDW Std Deviation (36.4-46.3) fL RDW Coeff of Duy (11.5-14.5) % Plt Count (130-400) K/uL MPV (7.4-10.4) fL Immature Gran % (Auto) % Neut % (Auto) % Lymph % (Auto) % [place] % (Auto) % Eos % (Auto) % Baso % (Auto) % Immature Gran # (Auto) (0.00-0.02) K/uL Neut # (Auto) (1.4-6.5) K/uL Lymph # (Auto) (1.2-3.4) K/uL [place] # (Auto) (0.11-0.59) K/uL Eos # (Auto) (0-0.5) K/uL Baso # (Auto) (0-0.2) K/uL Hypochromasia Anisocytosis Microcytosis PT (9.0-12.0) Seconds INR (0.9-1.1) Sodium (136-145) mmol/L Potassium (3.5-5.1) mmol/L Chloride (98-107) mmol/L Carbon Dioxide (21-32) mmol/L Anion Gap (3-11) BUN (7-18) mg/dl Creatinine (0.6-1.2) mg/dl Est Cr Clr Drug Dosing ml/min Est GFR ( Amer) Est GFR (Non-Af Amer) BUN/Creatinine Ratio (10-20) Glucose (70-99) mg/dl POC Glucose 121 H 141 H 73 (70-99) Calcium (8.5-10.1) mg/dl Phosphorus (2.5-4.9) mg/dl Magnesium (1.8-2.4) mg/dl Carcinoembryonic Ag CA 19-9 Antigen CA 125 Antigen Reaction Path Interpret 10/27/18 10/26/18 10/26/18 Range/Units 00:12 23:22 22:15 WBC (4.8-10.8) K/uL RBC (4.2-5.4) M/uL Hgb (12.0-16.0) g/dL Hct (37-47) % MCV (80-100) fL MCH (25-34) pg MCHC (32-36) g/dL RDW Std Deviation (36.4-46.3) fL RDW Coeff of Duy (11.5-14.5) % Plt Count (130-400) K/uL MPV (7.4-10.4) fL Immature Gran % (Auto) % Neut % (Auto) % Lymph % (Auto) % [place] % (Auto) % Eos % (Auto) % Baso % (Auto) % Immature Gran # (Auto) (0.00-0.02) K/uL Neut # (Auto) (1.4-6.5) K/uL Lymph # (Auto) (1.2-3.4) K/uL [place] # (Auto) (0.11-0.59) K/uL Eos # (Auto) (0-0.5) K/uL Baso # (Auto) (0-0.2) K/uL Hypochromasia Anisocytosis Microcytosis PT (9.0-12.0) Seconds INR (0.9-1.1) Sodium (136-145) mmol/L Potassium (3.5-5.1) mmol/L Chloride (98-107) mmol/L Carbon Dioxide (21-32) mmol/L Anion Gap (3-11) BUN (7-18) mg/dl Creatinine (0.6-1.2) mg/dl Est Cr Clr Drug Dosing ml/min Est GFR ( Amer) Est GFR (Non-Af Amer) BUN/Creatinine Ratio (10-20) Glucose (70-99) mg/dl POC Glucose 92 165 H 139 H (70-99) Calcium (8.5-10.1) mg/dl Phosphorus (2.5-4.9) mg/dl Magnesium (1.8-2.4) mg/dl Carcinoembryonic Ag CA 19-9 Antigen CA 125 Antigen Reaction Path Interpret 10/26/18 10/26/18 10/26/18 Range/Units 21:55 20:58 20:08 WBC (4.8-10.8) K/uL RBC (4.2-5.4) M/uL Hgb (12.0-16.0) g/dL Hct (37-47) % MCV (80-100) fL MCH (25-34) pg MCHC (32-36) g/dL RDW Std Deviation (36.4-46.3) fL RDW Coeff of Duy (11.5-14.5) % Plt Count (130-400) K/uL MPV (7.4-10.4) fL Immature Gran % (Auto) % Neut % (Auto) % Lymph % (Auto) % [place] % (Auto) % Eos % (Auto) % Baso % (Auto) % Immature Gran # (Auto) (0.00-0.02) K/uL Neut # (Auto) (1.4-6.5) K/uL Lymph # (Auto) (1.2-3.4) K/uL [place] # (Auto) (0.11-0.59) K/uL Eos # (Auto) (0-0.5) K/uL Baso # (Auto) (0-0.2) K/uL Hypochromasia Anisocytosis Microcytosis PT (9.0-12.0) Seconds INR (0.9-1.1) Sodium (136-145) mmol/L Potassium (3.5-5.1) mmol/L Chloride (98-107) mmol/L Carbon Dioxide (21-32) mmol/L Anion Gap (3-11) BUN (7-18) mg/dl Creatinine (0.6-1.2) mg/dl Est Cr Clr Drug Dosing ml/min Est GFR ( Amer) Est GFR (Non-Af Amer) BUN/Creatinine Ratio (10-20) Glucose (70-99) mg/dl POC Glucose 83 92 88 (70-99) Calcium (8.5-10.1) mg/dl Phosphorus (2.5-4.9) mg/dl Magnesium (1.8-2.4) mg/dl Carcinoembryonic Ag CA 19-9 Antigen CA 125 Antigen Reaction Path Interpret 10/26/18 10/26/18 10/26/18 Range/Units 17:44 15:45 14:27 WBC (4.8-10.8) K/uL RBC (4.2-5.4) M/uL Hgb (12.0-16.0) g/dL Hct (37-47) % MCV (80-100) fL MCH (25-34) pg MCHC (32-36) g/dL RDW Std Deviation (36.4-46.3) fL RDW Coeff of Duy (11.5-14.5) % Plt Count (130-400) K/uL MPV (7.4-10.4) fL Immature Gran % (Auto) % Neut % (Auto) % Lymph % (Auto) % [place] % (Auto) % Eos % (Auto) % Baso % (Auto) % Immature Gran # (Auto) (0.00-0.02) K/uL Neut # (Auto) (1.4-6.5) K/uL Lymph # (Auto) (1.2-3.4) K/uL [place] # (Auto) (0.11-0.59) K/uL Eos # (Auto) (0-0.5) K/uL Baso # (Auto) (0-0.2) K/uL Hypochromasia Anisocytosis Microcytosis PT (9.0-12.0) Seconds INR (0.9-1.1) Sodium (136-145) mmol/L Potassium (3.5-5.1) mmol/L Chloride (98-107) mmol/L Carbon Dioxide (21-32) mmol/L Anion Gap (3-11) BUN (7-18) mg/dl Creatinine (0.6-1.2) mg/dl Est Cr Clr Drug Dosing ml/min Est GFR ( Amer) Est GFR (Non-Af Amer) BUN/Creatinine Ratio (10-20) Glucose (70-99) mg/dl POC Glucose 137 H 142 H 158 H (70-99) Calcium (8.5-10.1) mg/dl Phosphorus (2.5-4.9) mg/dl Magnesium (1.8-2.4) mg/dl Carcinoembryonic Ag CA 19-9 Antigen CA 125 Antigen Reaction Path Interpret 10/26/18 10/26/18 10/25/18 Range/Units 13:33 12:35 19:47 WBC (4.8-10.8) K/uL RBC (4.2-5.4) M/uL Hgb (12.0-16.0) g/dL Hct (37-47) % MCV (80-100) fL MCH (25-34) pg MCHC (32-36) g/dL RDW Std Deviation (36.4-46.3) fL RDW Coeff of Duy (11.5-14.5) % Plt Count (130-400) K/uL MPV (7.4-10.4) fL Immature Gran % (Auto) % Neut % (Auto) % Lymph % (Auto) % [place] % (Auto) % Eos % (Auto) % Baso % (Auto) % Immature Gran # (Auto) (0.00-0.02) K/uL Neut # (Auto) (1.4-6.5) K/uL Lymph # (Auto) (1.2-3.4) K/uL [place] # (Auto) (0.11-0.59) K/uL Eos # (Auto) (0-0.5) K/uL Baso # (Auto) (0-0.2) K/uL Hypochromasia Anisocytosis Microcytosis PT (9.0-12.0) Seconds INR (0.9-1.1) Sodium (136-145) mmol/L Potassium (3.5-5.1) mmol/L Chloride (98-107) mmol/L Carbon Dioxide (21-32) mmol/L Anion Gap (3-11) BUN (7-18) mg/dl Creatinine (0.6-1.2) mg/dl Est Cr Clr Drug Dosing ml/min Est GFR ( Amer) Est GFR (Non-Af Amer) BUN/Creatinine Ratio (10-20) Glucose (70-99) mg/dl POC Glucose 172 H 178 H (70-99) Calcium (8.5-10.1) mg/dl Phosphorus (2.5-4.9) mg/dl Magnesium (1.8-2.4) mg/dl Carcinoembryonic Ag CA 19-9 Antigen CA 125 Antigen Reaction Path Interpret Medications Administered Current Inpatient Medications Acetaminophen (Tylenol) 650 mg PO Q4H PRN PRN Reason: Pain Stop: 11/24/18 01:02 Last Admin: 10/25/18 02:09 Dose: 650 mg Documented by: Albuterol (Duoneb) 3 ml NEB [facility]IDR [facility] Stop: 11/24/18 06:59 Last Admin: 10/27/18 11:10 Dose: 3 ml Documented by: Dextrose (Dextrose 50%) 25 - 50 ml IV UD PRN; Protocol PRN Reason: Hypoglycemia Protocol Stop: 11/23/18 21:18 Last Admin: 10/27/18 07:10 Dose: 25 ml Documented by: Duloxetine HCl (Cymbalta) 30 mg PO BID [facility] Stop: 11/23/18 21:18 Last Admin: 10/25/18 20:49 Dose: 30 mg Documented by: Fentanyl Citrate (Fentanyl Citrate) 100 mcg IV Q2H PRN PRN Reason: Moderate Pain (4,5,6) Stop: 11/09/18 00:56 Last Admin: 10/27/18 14:53 Dose: 100 mcg Documented by: Fluticasone Propionate (Flonase) 2 sprays NA BID [facility] Stop: 11/23/18 21:18 Last Admin: 10/27/18 08:00 Dose: Not Given Documented by: Fluticasone Propionate (Flovent Hfa 110mch) 1 puffs INH BID [facility] Stop: 11/24/18 08:59 Last Admin: 10/27/18 08:00 Dose: Not Given Documented by: Glucagon (Glucagen) 1 mg SQ UD PRN; Protocol PRN Reason: Hypoglycemia Protocol Stop: 11/23/18 21:18 Glucose (Glucose 40%) 15 - 30 gm PO UD PRN; Protocol PRN Reason: Hypoglycemia Protocol Stop: 11/23/18 21:18 Glucose (Dex4 Glucose) 4 - 8 tabs PO UD PRN; Protocol PRN Reason: Hypoglycemia Protocol Stop: 11/23/18 21:18 Sodium Chloride (Nss) 250 mls @ 15 mls/hr IV .[id number] PRN PRN Reason: For Transfusion Stop: 11/24/18 16:51 Aztreonam 2,000 mg/ Dextrose 110 mls @ 100 mls/hr IV Q8H [facility]; Protocol Stop: 11/01/18 19:59 Last Infusion: 10/27/18 12:14 Dose: Infused Documented by: Midazolam HCl (Versed) 125 mg in 250 mls @ 20 mls/hr IV .[id number] PRN; Protocol PRN Reason: Titration Stop: 11/25/18 00:24 Last Titration: 10/27/18 11:52 Dose: 10 mg/hr, 20 mls/hr Documented by: Famotidine 20 mg/ Syringe 5 mls @ 2.5 mls/min IV BID [facility] Stop: 11/25/18 08:59 Last Admin: 10/27/18 08:00 Dose: 2.5 mls/min Documented by: Insulin Human Regular 250 (units/ Sodium Chloride) 250 mls @ 0 mls/hr IV .Q0M [facility]; Protocol Stop: 11/25/18 09:29 Last Titration: 10/27/18 07:04 Dose: 0 units/hr, 0 mls/hr Documented by: Parenteral Electrolytes (Normosol-R) 1,000 mls @ 125 mls/hr IV .Q8H [facility] Stop: 11/26/18 11:44 Last Admin: 10/27/18 12:47 Dose: 125 mls/hr Documented by: Insulin Aspart (Novolog Flexpen) 0 units SC Q4 [facility] Stop: 11/26/18 15:59 Insulin Human NPH (Novolin N Nph) 50 units SC TIDM [facility]; Protocol Stop: 11/24/18 07:59 Last Admin: 10/25/18 17:09 Dose: 50 units Documented by: Levothyroxine Sodium (Synthroid) 100 mcg PO DAILYBB [facility] Stop: 11/24/18 06:29 Last Admin: 10/27/18 05:34 Dose: 100 mcg Documented by: Metoprolol Succinate (Toprol Xl) 25 mg PO DAILY [facility] Stop: 11/24/18 08:59 Last Admin: 10/26/18 08:35 Dose: Not Given Documented by: Mirtazapine (Remeron Solutab) 45 mg PO HS [facility] Stop: 11/23/18 21:18 Last Admin: 10/26/18 20:16 Dose: 45 mg Documented by: Miscellaneous (Carbohydrates For Hypoglycemia) 15 - 30 gm PO UD PRN PRN Reason: Hypoglycemia Treatment Stop: 11/23/18 21:18 Miscellaneous (Icu Protocol For Hyperglycemia) 1 ea N/A PRN PRN; Protocol PRN Reason: Hyperglycemia Protocol Stop: 10/27/18 20:52 Miscellaneous Information (Consult Glycemic Management Pharmacy) 1 ea N/A UD PRN; Protocol PRN Reason: Consult Stop: 11/23/18 21:37 Montelukast Sodium (Singulair) 10 mg PO PM [facility] Stop: 11/23/18 21:18 Last Admin: 10/26/18 20:16 Dose: 10 mg Documented by: Nystatin (Mycostatin) 1 appln EXT TID [facility] Stop: 11/23/18 21:18 Last Admin: 10/27/18 12:48 Dose: 1 appln Documented by: Ondansetron HCl (Zofran) 4 mg IV Q6H PRN PRN Reason: Nausea Stop: 11/24/18 18:11 Last Admin: 10/25/18 18:40 Dose: 4 mg Documented by: Pantoprazole Sodium (Protonix) 40 mg PO DAILY [facility] Stop: 11/24/18 08:59 Last Admin: 10/26/18 08:35 Dose: Not Given Documented by: Pregabalin (Lyrica) 200 mg PO TID [facility] Stop: 11/23/18 21:18 Last Admin: 10/27/18 12:45 Dose: 200 mg Documented by: Simvastatin (Zocor) 20 mg PO HS [facility] Stop: 11/23/18 21:18 Last Admin: 10/24/18 22:53 Dose: 20 mg Documented by: Sodium Biphosphate/Sodium Phosphate (Fleet Enema) 132 ml NE Q6 [facility] Stop: 11/25/18 17:59 Last Admin: 10/27/18 12:40 Dose: Not Given Documented by: Tiotropium [place] (Spiriva) 1 puffs INH DAILY PRN PRN Reason: Shortness Of Breath Stop: 11/23/18 21:18 Ursodiol (Actigall) 600 mg PO BID [facility] Stop: 11/23/18 21:18 Last Admin: 10/25/18 08:19 Dose: 600 mg Documented by: PG Care Time/CCT Total # of Minutes Spent Total Time Spent with Patient: Total time spent is greater than 50% in coordination of care (as documented) at patient's floor/unit and/or counseling patient: Critical Care Time: Yes Total Critical Care Time: 90 Resident Activity Tracking Resident Involvement: Resident Care Provided Care Provided: Adult Hospital Medicine (ICU -> anemia, colon polyp, intubated)
[2018-10-27] MEDS ORDERED: INSULIN ASPART 100 UNITS/ML 3 ML PEN SC SCH (16:00)
[2018-10-27] MEDS ORDERED: PROPOFOL IV EMULSION 10 MG/ML 100 ML VIAL IV STA (16:29)
[2018-10-30 12:41] LABS: CA 125 73 U/ML (<35); Cancer Antigen 19-9 12 U/ML (<34)
== END 2018-10-27 17:17 | disposition short-term general hospital (02) | DRG 208 ==
LOC: ED 14:29 → 2S 19:27 → SUATTDRO 19:27 → 2S 20:24 → 1E 10-25 20:23

== ENCOUNTER 2019-07-09 22:49 | Inpatient (IN) ==
[2019-07-09] MEDS ORDERED: SODIUM CHLORIDE 0.9% 1000ML 1,000 ML IV SCH (23:30)
--- NOTE | 2019-07-09 23:32 | Emergency Department Note ---
History of Present Illness General Chief complaint: Rectal Bleed Stated complaint: RECTAL BLEED Time Seen by Provider: 07/09/19 23:09 Source: patient Mode of arrival: EMS Limitations: no limitations History of Present Illness Provider complaint: Rectal bleeding, weakness Onset (ago): hour(s) 3 Associated symptoms: + malaise and + weakness; no chest pain, no fever/chills, no nausea/vomiting and no shortness of breath Treatments prior to arrival: none This is a 68-year-old female patient presenting from home via EMS due to rectal bleeding. Patient states she felt well until approximately 8 PM the night when she thought she needed to have a bowel movement. She began to have bleeding and noticed passage of large clots. Patient states this was persistent and did not seem to be stopping and she began to feel slightly weak and so her called 911. Patient is typically nonambulatory. States she does take a baby aspirin daily however no other anticoagulation. Patient states since having a major surgery to her colon back in the fall she will get pain and cramping with each bowel movement, however is not recently been seeing any black or bloody stools. Patient denies any current abdominal pain. No chest pain, trouble breathing, or sense of palpitations. Patient states she was feeling a little weak with the bleeding this evening however is not otherwise tried to stand up. No history of vaginal bleeding. Patient denies bleeding from any other source. Pt seen during a time of high acuity and national emergency pandemic while wearing PPE. Allergies Allergy/AdvReac Type Severity Reaction Status Date / Time fluoxetine Allergy Severe ANAPHYLAXIS Verified 07/10/19 00:35 Insulins Allergy Severe LANTUS/LEVEMIR- Verified 07/10/19 00:35 HIVES/THROAT SWELLING moxifloxacin Allergy Severe HIVES Verified 07/10/19 00:35 nitrofurantoin Allergy Severe HIVES Verified 07/10/19 00:35 paroxetine Allergy Severe HIVES Verified 07/10/19 00:35 Quinolones Allergy Severe AVELOX & Verified 07/10/19 00:35 LEVAQUIN-HIVES amitriptyline Allergy Intermediate Sweats and Verified 07/10/19 00:35 itching buspirone Allergy Intermediate HIVES Verified 07/10/19 00:35 cephalexin Allergy Intermediate Hives Verified 07/10/19 00:35 citalopram Allergy Intermediate HIVES-RASH Verified 07/10/19 00:35 escitalopram Allergy Intermediate HIVES-RASH Verified 07/10/19 00:35 levofloxacin Allergy Intermediate Hives Verified 07/10/19 00:35 methadone Allergy Intermediate HIVES Verified 07/10/19 00:35 Penicillins Allergy Intermediate RASH,HIVES Verified 07/10/19 00:35 Serotonin 5HT-3 Antagonists Allergy Intermediate MIGRAINES Verified 07/10/19 00:35 TO SSRIs trazodone Allergy Intermediate BLOODY Verified 07/10/19 00:35 NOSE, HEADACHES,HIVES vancomycin Allergy Intermediate HIVES Verified 07/10/19 00:35 prednisone Allergy Mild CHEST Verified 07/10/19 00:35 TIGHTNESS carbamazepine Allergy Unknown HIVES-RASH- Verified 07/10/19 00:35 ITCHINESS cefepime Allergy Unknown face & arm Verified 07/10/19 00:35 redness/itching after 2nd or 3rd dose cefepime ceftriaxone Allergy Unknown Received Verified 07/10/19 00:35 in MTU (but needed benadryl for course of therapy Cipro Allergy Unknown ABD PAINS Verified 09/08/17 09:10 ciprofloxacin Allergy Unknown ABD PAINS Verified 07/10/19 00:35 sertraline Allergy Unknown UNKNOWN Verified 07/10/19 00:35 sitagliptin Allergy Unknown HIVES Verified 07/10/19 00:35 azithromycin Allergy Hives Verified 07/10/19 00:35 Cephalosporins Allergy Hives Verified 07/10/19 00:35 metformin [From Janumet] Allergy Unknown Verified 07/10/19 00:35 Tetracyclines AdvReac Severe HIVES Verified 07/10/19 00:35 Sulfa (Sulfonamide AdvReac Intermediate MIGRAINES Verified 07/10/19 00:35 Antibiotics) fexofenadine AdvReac Mild GI SYMPTOMS Verified 07/10/19 00:35 tizanidine AdvReac Mild ITCHING-HIV Verified 07/10/19 00:35 ES gentamicin AdvReac Unknown UNKNOWN Verified 07/10/19 00:35 lorazepam AdvReac Unknown Verified 07/10/19 00:35 Past Med/Surg History Medical History Cerebrovascular disease (Chronic) "history left thalamic stroke" Chronic hypercapnic respiratory failure (Chronic) Chronic pain disorder (Chronic 01/24/14) COPD (chronic obstructive pulmonary disease) (Chronic) CVA (cerebral vascular accident) hx of L thalamus CVA Diabetes mellitus, type II (Chronic) Dyslipidemia (Chronic) HLD (hyperlipidemia) (Chronic) Hypertension (Chronic) Hypertension (Chronic) Hypertrophic cardiomyopathy (Chronic) Hypothyroidism (Chronic) Morbid obesity (Chronic) Obesity hypoventilation syndrome (Chronic) JOSE (obstructive sleep apnea) (Chronic) Recurrent UTI (Chronic) Surgical History H/O partial nephrectomy History of tonsillectomy Hx of nasal septoplasty S/P dilatation and curettage Status post tonsillectomy (Chronic) Family History Father Coronary heart disease Mother Diabetes Social History Preferred Language: Arabic Communication Ability: Effective Chief Solution Architect Required: No Beliefs That Will Affect Care: None marital status: Current Living Situation: Spouse Current Living Situation Comment: living at home with Other Information That Helps Us Care for You: No Feels Safe at Home: Yes Safety Concerns: Feels Safe At This Time Smoking Status: Never smoker Second Hand Exposure: No ; Hx Alcohol Use: No Hx Substance Use: No Review of Systems See HPI for pertinent positives & negatives. and A total of 10 systems reviewed and were otherwise negative Physical Exam Vital Signs Vital Signs - 24 hr 07/09/19 22:58 07/09/19 23:03 07/09/19 23:34 Pulse Rate 91 H 88 81 Pulse Rate from SpO2 Sensor 82 Respiratory Rate 22 22 16 Blood Pressure 140/72 140/72 171/54 H Blood Pressure Mean 90 94 80 Pulse Oximetry 100 95 Oxygen Delivery Method Non-rebreather Nasal Cannula Oxygen Flow Rate 15 4 Sepsis Recent Fever Within 48 Hours No Sepsis New/Unexplained Change in Mental Status No Sepsis Action Taken by Nursing No Action Required 07/10/19 00:01 07/10/19 00:30 07/10/19 01:00 Pulse Rate 81 80 Pulse Rate from SpO2 Sensor 81 81 91 H Respiratory Rate 21 22 20 Blood Pressure 131/46 L 155/52 H 153/49 H Blood Pressure Mean 92 91 76 Pulse Oximetry 97 93 93 Oxygen Delivery Method Nasal Cannula Nasal Cannula Nasal Cannula Oxygen Flow Rate 4 4 4 Sepsis Recent Fever Within 48 Hours Sepsis New/Unexplained Change in Mental Status Sepsis Action Taken by Nursing 07/10/19 01:30 07/10/19 02:00 07/10/19 02:35 Pulse Rate 88 88 88 Pulse Rate from SpO2 Sensor 88 88 88 Respiratory Rate 23 22 20 Blood Pressure 144/41 H 150/44 H 103/89 Blood Pressure Mean 88 85 96 Pulse Oximetry 95 95 93 Oxygen Delivery Method Nasal Cannula Nasal Cannula Nasal Cannula Oxygen Flow Rate 4 4 4 Sepsis Recent Fever Within 48 Hours Sepsis New/Unexplained Change in Mental Status Sepsis Action Taken by Nursing 07/10/19 03:00 07/10/19 03:30 07/10/19 05:02 Pulse Rate 98 H 88 96 H Pulse Rate from SpO2 Sensor 90 88 97 H Respiratory Rate 21 22 20 Blood Pressure 123/43 L 134/79 139/48 L Blood Pressure Mean 56 89 57 Pulse Oximetry 95 98 95 Oxygen Delivery Method Nasal Cannula Nasal Cannula Nasal Cannula Oxygen Flow Rate 4 4 4 Sepsis Recent Fever Within 48 Hours Sepsis New/Unexplained Change in Mental Status Sepsis Action Taken by Nursing GENERAL: alert, well appearing, well nourished, no distress, non-toxic, morbidly obese EYE EXAM: normal conjunctiva, PERRL and EOM's grossly intact OROPHARYNX: no exudate, no erythema, lips, buccal mucosa, and tongue normal and mucous membranes are moist NECK: supple, no nuchal rigidity, no adenopathy, non-tender LUNGS: Clear to auscultation. Normal chest wall mechanics, no w/r/r HEART: no murmurs, S1 normal and S2 normal ABDOMEN: abdomen soft, non-tender, normo-active bowel sounds, no masses, no rebound or guarding. Obvious bleeding noted to the genital and perineal region. Staff still trying to help establish IVs prior to cleaning the area for additional exam BACK: Back is symmetrical on inspection and there is no deformity, no midline tenderness, no CVA tenderness. SKIN: no rashes and no bruising UPPER EXTREMITIES: upper extremities are grossly normal. FROM, nml pulses b/l. LOWER EXTREMITIES: No pitting edema. FROM, nml pulses b/l. No petechiae. NEURO EXAM: Normal sensorium, cranial nerves II-XII grossly intact, normal speech, no gross weakness of arms, no gross weakness of legs. Gross sensation i ntact. Course Course 2330: Upon additional examination, bleeding appears to be vaginal in origin. No rectal hemorrhoids or fissure seen. No stool in rectal vault. Clots present in vagina with active bleeding. Due to body habitus and limited resources at this time, unable to perform a speculum exam. 0220: With the help of 2 nurses, a brief speculum exam was performed. A large clot greater than the size of my closed fist was removed from the vaginal entrance and genital region, no obvious external trauma, normal external genitalia, vaginal canal without any evidence of injury or laceration, no obvious lesion, difficulty visualizing the cervix due to redundant tissue. Slow persistent oozing into the vaginal vault that would slowly begin to obstruct visualization. 0500: Updated pt on results. 0515: Discussed with Dr. Olmstead. 0520: Discussed with Dr. Toro. 0525: Administered Medications Discontinued Medications Albuterol (Duoneb) 3 ml NEB NOW STA Stop: 07/11/19 04:11 Last Admin: 07/11/19 04:32 Dose: 3 ml Documented by: [id number] Atropine Sulfate (Atropine Sulfate) 0.5 mg IV NOW STA Stop: 07/11/19 03:38 Last Admin: 07/11/19 04:01 Dose: Not Given Documented by: [id number] Atropine Sulfate (Atropine Sulfate) Confirm Administered Dose 1 mg IV .STK-MED ONE Stop: 07/11/19 03:39 Last Admin: 07/11/19 04:00 Dose: Not Given Documented by: [id number] Baclofen (Lioresal) 5 mg PO HS@1999 [facility] Stop: 08/09/19 19:59 Last Admin: 07/10/19 19:54 Dose: 5 mg Documented by: [id number] Diphenhydramine HCl (Benadryl) 12.5 mg IV NOW STA Stop: 07/11/19 03:55 Last Admin: 07/11/19 04:17 Dose: 12.5 mg Documented by: [id number] Duloxetine HCl (Cymbalta) 30 mg PO BID@ [facility] Stop: 08/09/19 07:59 Last Admin: 07/10/19 19:48 Dose: 30 mg Documented by: [id number] Admin: 07/10/19 08:55 Dose: 30 mg Documented by: [id number] Epinephrine HCl (Epinephrine) 0.3 mg IM NOW STA Stop: 07/11/19 03:41 Last Admin: 07/11/19 03:54 Dose: 0.3 mg Documented by: [id number] Epinephrine HCl (Epinephrine) 0.3 mg IM NOW STA Stop: 07/11/19 04:38 Last Admin: 07/11/19 05:23 Dose: 0.3 mg Documented by: [id number] Furosemide (Lasix) 40 mg IV NOW STA Stop: 07/10/19 05:59 Last Admin: 07/10/19 06:17 Dose: 40 mg Documented by: [id number] Furosemide (Lasix) 40 mg IV BID@0800,1600 [facility] Stop: 07/11/19 16:01 Last Admin: 07/10/19 17:01 Dose: 40 mg Documented by: [id number] Sodium Chloride (Nss 1000ml) 1,000 mls @ 125 mls/hr IV .Q8H [facility] Stop: 08/08/19 23:29 Last Infusion: 07/10/19 05:38 Dose: 0 mls/hr Documented by: [id number] Admin: 07/10/19 01:03 Dose: 125 mls/hr Documented by: [id number] Albumin Human (Albumin 25%) 50 mls @ 50 mls/hr IV ONE ONE Stop: 07/11/19 04:37 Last Infusion: 07/11/19 05:14 Dose: 0 mls/hr Documented by: [id number] Admin: 07/11/19 03:57 Dose: 50 mls/hr Documented by: [id number] Methylprednisolone 125 mg/ (Syringe) 2 mls @ 1.5 mls/min IV NOW STA Stop: 07/11/19 03:42 Last Admin: 07/11/19 03:50 Dose: 1.5 mls/min Documented by: [id number] Acetaminophen (Ofirmev) 1,000 mg in 100 mls @ 400 mls/hr IV NOW STA Stop: 07/11/19 04:15 Last Infusion: 07/11/19 05:12 Dose: 0 mls/hr Documented by: [id number] Admin: 07/11/19 04:40 Dose: 400 mls/hr Documented by: [id number] Albumin Human (Albumin 25%) 50 mls @ 50 mls/hr IV ONE ONE Stop: 07/11/19 05:07 Last Infusion: 07/11/19 05:43 Dose: 0 mls/hr Documented by: [id number] Admin: 07/11/19 04:40 Dose: 50 mls/hr Documented by: [id number] Magnesium Sulfate/Dextrose (Magnesium Sulfate / D5w) 1 gm in 100 mls @ 100 mls/hr IV ONE ONE Stop: 07/11/19 05:36 Last Infusion: 07/11/19 06:26 Dose: 0 mls/hr Documented by: [id number] Admin: 07/11/19 05:23 Dose: 100 mls/hr Documented by: [id number] Insulin Aspart (Novolog Flexpen) 0 units SC ACHS [facility] Stop: 08/09/19 08:44 Last Admin: 07/10/19 21:05 Dose: 6 units Documented by: [id number] Cosigned by: [id number] Admin: 07/10/19 16:51 Dose: 18 units Documented by: [id number] Cosigned by: [id number] Admin: 07/10/19 12:51 Dose: 8 units Documented by: [id number] Cosigned by: [id number] Admin: 07/10/19 10:09 Dose: 9 units Documented by: [id number] Cosigned by: [id number] Insulin Aspart (Novolog Flexpen) 0 units SC Q6 [facility] Stop: 08/10/19 05:59 Last Admin: 07/11/19 06:13 Dose: 18 units Documented by: [id number] Cosigned by: [id number] Insulin Human NPH (Humulin N U-100) 30 units SC ONE ONE Stop: 07/10/19 09:01 Last Admin: 07/10/19 10:12 Dose: 30 units Documented by: [id number] Cosigned by: [id number] Insulin Human NPH (Humulin N U-100) 30 units SC TIDM [facility] Stop: 08/09/19 12:59 Last Admin: 07/10/19 15:31 Dose: Not Given Documented by: [id number] Insulin Human NPH (Humulin N U-100) 30 units SC TIDM [facility] Stop: 08/09/19 16:59 Last Admin: 07/10/19 16:53 Dose: 30 units Documented by: [id number] Cosigned by: [id number] Ioversol (Optiray 320 125ml) 125 ml IV ONCE PRN PRN Reason: Interaction Checking Stop: 07/14/19 01:06 Last Admin: 07/10/19 01:08 Dose: 118 ml Documented by: [id number] Levothyroxine Sodium (Synthroid) 100 mcg PO DAILY@0600 [facility] Stop: 08/09/19 05:59 Last Admin: 07/11/19 04:41 Dose: 100 mcg Documented by: [id number] Admin: 07/10/19 08:56 Dose: 100 mcg Documented by: [id number] Metoprolol Succinate (Toprol Xl) 25 mg PO DAILY@0800 [facility] Stop: 08/09/19 07:59 Last Admin: 07/10/19 08:56 Dose: 25 mg Documented by: [id number] Mirtazapine (Remeron Solutab) 45 mg PO HS@1999 [facility] Stop: 08/09/19 19:59 Last Admin: 07/10/19 19:50 Dose: 45 mg Documented by: [id number] Miscellaneous (Order Awaiting Action) 1 ea N/A QS [facility] Stop: 08/09/19 15:59 Last Admin: 07/10/19 22:30 Dose: Not Given Documented by: [id number] Admin: 07/10/19 16:06 Dose: Not Given Documented by: [id number] Montelukast Sodium (Singulair) 10 mg PO PM@1999 [facility] Stop: 08/09/19 19:59 Last Admin: 07/10/19 19:48 Dose: 10 mg Documented by: [id number] Norethindrone (Aygestin) 5 mg PO Q4 [facility] Stop: 08/09/19 15:29 Last Admin: 07/11/19 04:18 Dose: 5 mg Documented by: [id number] Admin: 07/11/19 02:54 Dose: 5 mg Documented by: [id number] Admin: 07/10/19 19:49 Dose: 5 mg Documented by: [id number] Admin: 07/10/19 15:53 Dose: 5 mg Documented by: [id number] Nortriptyline HCl (Pamelor) 10 mg PO HS@1999 [facility] Stop: 08/09/19 19:59 Last Admin: 07/10/19 19:49 Dose: 10 mg Documented by: [id number] Nystatin (Mycostatin) 1 appln EXT TID@0800,1199,1999 [facility] Stop: 08/09/19 07:59 Last Admin: 07/10/19 19:50 Dose: 1 appln Documented by: [id number] Admin: 07/10/19 12:49 Dose: 1 appln Documented by: [id number] Admin: 07/10/19 09:03 Dose: 1 appln Documented by: [id number] Olanzapine (Zyprexa) 2.5 mg PO NOW STA Stop: 07/11/19 06:57 Last Admin: 07/11/19 07:02 Dose: 2.5 mg Documented by: [id number] Pantoprazole Sodium (Protonix) 40 mg PO DAILY@0800 [facility] Stop: 08/09/19 08:14 Last Admin: 07/10/19 08:55 Dose: 40 mg Documented by: [id number] Polyethylene Glycol (Miralax Powder Packet) 17 gm PO DAILY@0800 [facility] Stop: 08/09/19 08:14 Last Admin: 07/10/19 08:57 Dose: Not Given Documented by: [id number] Potassium Chloride (Klor-Con M20) 20 meq PO BID@799,1999 [facility] Stop: 08/09/19 08:14 Last Admin: 07/10/19 19:48 Dose: 20 meq Documented by: [id number] Admin: 07/10/19 08:55 Dose: 20 meq Documented by: [id number] Pregabalin (Lyrica) 200 mg PO TID@799,1199,1999 [facility] Stop: 08/09/19 08:14 Last Admin: 07/10/19 19:54 Dose: 200 mg Documented by: [id number] Admin: 07/10/19 12:49 Dose: 200 mg Documented by: [id number] Admin: 07/10/19 09:02 Dose: 200 mg Documented by: [id number] Simvastatin (Zocor) 20 mg PO HS@1999 [facility] Stop: 08/09/19 19:59 Last Admin: 07/10/19 19:48 Dose: 20 mg Documented by: [id number] Umeclidinium/Vilanterol (Anoro Ellipta 62.5/25 Mcg Inh) 1 puffs INH DAILY@0800 [facility] Stop: 08/09/19 08:14 Last Admin: 07/10/19 11:01 Dose: 1 puffs Documented by: [id number] Ursodiol (Actigall) 600 mg PO BID@ [facility] Stop: 08/09/19 08:14 Last Admin: 07/10/19 19:49 Dose: 600 mg Documented by: [id number] Admin: 07/10/19 08:54 Dose: 600 mg Documented by: [id number] Medical Decision Making Differential Diagnosis Differential diagnosis includes etiologies such as diverticulosis, AVM, coagulopathy, colitis, inflammatory bowel disease, malignancy, Cynthia-Qiu tear, esophagitis, peptic ulcer disease, variceal bleed, gastritis, epistaxis, fissure, hemorrhoids, as well as others were entertained. Medical Records Attestation: I reviewed the patient's medical records. Home Medications Current Medication List: was personally reviewed by me Laboratory Data Attestation: I reviewed the patient's lab results. Result diagrams: 07/11/19 04:01 07/11/19 04:01 Lab Results 07/09/19 07/09/19 07/09/19 Range/Units 23:05 23:05 23:05 WBC 9.99 (4.8-10.8) K/uL RBC 4.66 (4.2-5.4) M/uL Hgb 11.0 L (12.0-16.0) g/dL Hct 39.9 (37-47) % MCV 85.6 (80-100) fL MCH 23.6 L (25-34) pg MCHC 27.6 L (32-36) g/dL RDW Std Deviation 61.9 H (36.4-46.3) fL RDW Coeff of Duy 19.7 H (11.5-14.5) % Plt Count 139 (130-400) K/uL MPV 11.3 H (7.4-10.4) fL Immature Gran % (Auto) 0.7 % Neut % (Auto) 73.4 % Lymph % (Auto) 15.6 % [place] % (Auto) 6.8 % Eos % (Auto) 3.3 % Baso % (Auto) 0.2 % Immature Gran # (Auto) 0.07 H (0.00-0.02) K/uL Neut # (Auto) 7.33 H (1.4-6.5) K/uL Lymph # (Auto) 1.56 (1.2-3.4) K/uL [place] # (Auto) 0.68 H (0.11-0.59) K/uL Eos # (Auto) 0.33 (0-0.5) K/uL Baso # (Auto) 0.02 (0-0.2) K/uL Platelet Estimate Decreased L (Normal) Stomatocytes 1+ PT 10.9 (9.0-12.0) Seconds INR 1.0 (0.9-1.1) Sodium 139 (136-145) mmol/L Potassium 4.1 (3.5-5.1) mmol/L Chloride 98 (98-107) mmol/L Carbon Dioxide 40 H (21-32) mmol/L Anion Gap 2.0 L (3-11) BUN 14 (7-18) mg/dl Creatinine 0.82 (0.6-1.2) mg/dl Est Cr Clr Drug Dosing 104.6 ml/min Est GFR ( Amer) 84.6 Est GFR (Non-Af Amer) 73.0 BUN/Creatinine Ratio 16.5 (10-20) Glucose 184 H (70-99) mg/dl Estimat Average Glucose mg/dl Hemoglobin A1c (4.5-5.6) % Calcium 8.9 (8.5-10.1) mg/dl Magnesium 2.1 (1.8-2.4) mg/dl Total Bilirubin 0.4 (0.2-1) mg/dl AST 29 (15-37) U/L ALT 28 (12-78) U/L Alkaline Phosphatase 125 H (45-117) U/L Troponin I < 0.015 (0-0.045) ng/ml Total Protein 7.9 (6.4-8.2) gm/dl Albumin 3.3 L (3.4-5.0) gm/dl Globulin 4.6 H (2.5-4.0) gm/dl Albumin/Globulin Ratio 0.7 L (0.9-2) Lipase 71 L (73-393) U/L 07/09/19 07/10/19 Range/Units 23:05 04:09 WBC (4.8-10.8) K/uL RBC (4.2-5.4) M/uL Hgb 10.0 L (12.0-16.0) g/dL Hct 35.8 L (37-47) % MCV (80-100) fL MCH (25-34) pg MCHC (32-36) g/dL RDW Std Deviation (36.4-46.3) fL RDW Coeff of Duy (11.5-14.5) % Plt Count (130-400) K/uL MPV (7.4-10.4) fL Immature Gran % (Auto) % Neut % (Auto) % Lymph % (Auto) % [place] % (Auto) % Eos % (Auto) % Baso % (Auto) % Immature Gran # (Auto) (0.00-0.02) K/uL Neut # (Auto) (1.4-6.5) K/uL Lymph # (Auto) (1.2-3.4) K/uL [place] # (Auto) (0.11-0.59) K/uL Eos # (Auto) (0-0.5) K/uL Baso # (Auto) (0-0.2) K/uL Platelet Estimate (Normal) Stomatocytes PT (9.0-12.0) Seconds INR (0.9-1.1) Sodium (136-145) mmol/L Potassium (3.5-5.1) mmol/L Chloride (98-107) mmol/L Carbon Dioxide (21-32) mmol/L Anion Gap (3-11) BUN (7-18) mg/dl Creatinine (0.6-1.2) mg/dl Est Cr Clr Drug Dosing ml/min Est GFR ( Amer) Est GFR (Non-Af Amer) BUN/Creatinine Ratio (10-20) Glucose (70-99) mg/dl Estimat Average Glucose 108 mg/dl Hemoglobin A1c 5.4 (4.5-5.6) % Calcium (8.5-10.1) mg/dl Magnesium (1.8-2.4) mg/dl Total Bilirubin (0.2-1) mg/dl AST (15-37) U/L ALT (12-78) U/L Alkaline Phosphatase (45-117) U/L Troponin I (0-0.045) ng/ml Total Protein (6.4-8.2) gm/dl Albumin (3.4-5.0) gm/dl Globulin (2.5-4.0) gm/dl Albumin/Globulin Ratio (0.9-2) Lipase (73-393) U/L Imaging Data Radiologist's Impression: CT abdomen and pelvis with contrast: Previous bowel surgery. Remaining segments of the colon are under distended. Cannot exclude inflammation. Nonobstructive bowel gas pattern. Appendix not identified. Bibasilar consolidation, left greater than right. Trace left pleural effusion. Cardiomegaly. Do not Small to moderate amounts of fluid in the peritoneal cavity. Splenomegaly and small low-attenuation lesions. Left adrenal nodules, the larger of the 2 measures approximately 2 cm. Right nephrolithiasis. Left renal cyst. Edema in the abdominal wall. Compression deformity superior endplate of L2. Radiologist: Wang Mka MD Blood Pressure Blood Pressure Findings: Elevated blood pressure Blood Pressure Disposition: further management by hospitalist MDM Narrative Pt here with bleeding that was initially thought by patient to be rectal in origin given prior hx and pt being unambulatory. After IV's established and pt placed on a monitor and with the help of additional staff due to significant obesity, we cleaned the patient's genital/perineal region and bleeding ultimately determined to be vaginal in origin and pt continued to pass several large clots while in the ER. While first H/H reassuring, 2nd H/H already trending down. Due to persistent bleeding, inability of pt and to care for her and complicated PMHx, I discussed the case with housekeeper cleaning cooking and hospitalist. Pt will be observed due to ongoing blood loss. Pt kept aware of all results and was in agreement with the plan. Pt is not anticoagulated. An order was placed for continuous cardiac monitoring. The monitor shows a rate of normal sinus with 86_ rhythm. Patient has no family history of life threatening bleeding. Patient was first seen and observation began at 2309 and was necessary in order to determine the source of bleeding and monitor hemodynamic stability. Upon re-evaluation, 5 hours of observation revealed that the patient could be admitted. Discharge time at 0520. Impression & Plan DUB (dysfunctional uterine bleeding), Morbid obesity, Anemia Discharge Plan Visit Data *Final* Discharge Date/Time: 07/10/19 06:56 Chief Complaint: Rectal Bleed Stated Complaint: RECTAL BLEED ED Provider: Gricel Ravi Discharge Problem: DUB (dysfunctional uterine bleeding), Morbid obesity, Anemia Patient Disposition: Admitted As Inpatient Condition: Critical Discharge Instructions Interventions: ED Discharge Assessment Last Done: 07/10/19 06:56 Discharge Problem: Anemia Qualifiers: Anemia type: unspecified type Qualified Code(s): D64.9 - Anemia, unspecified
[2019-07-09 23:42] LABS: Alanine Aminotransferase 28 U/L (12-78); Albumin Level 3.3 gm/dl (3.4-5.0); Aspartate Aminotransferase 29 U/L (15-37); BUN Creatinine Ratio 16.5 (10-20); Blood Urea Nitrogen 14 mg/dl (7-18); Calcium 8.9 mg/dl (8.5-10.1); Carbon Dioxide 40 mmol/L (21-32); Chloride 98 mmol/L (98-107); Creatinine Clr Calc Pharmacy 104.6 ml/min; Est GFR (African American) 84.6; Glucose 184 mg/dl (70-99); Lipase 71 U/L (73-393); Magnesium 2.1 mg/dl (1.8-2.4); Potassium 4.1 mmol/L (3.5-5.1); Sodium 139 mmol/L (136-145)
[2019-07-09 23:44] LABS: Prothrombin Time 10.9 Seconds (9.0-12.0)
[2019-07-09 23:47] LABS: Albumin Globulin Ratio 0.7 (0.9-2); Alkaline Phosphatase 125 U/L (45-117); Bilirubin,Total 0.4 mg/dl (0.2-1); Globulin 4.6 gm/dl (2.5-4.0); Total Protein 7.9 gm/dl (6.4-8.2); Troponin I < 0.015 ng/ml (0-0.045)
[2019-07-10] LABS: Hematocrit (blood only) 39.9 % (37-47); Mean Corpuscular Hemoglobin 23.6 pg (25-34); Mean Corpuscular Hgb Conc 27.6 g/dL (32-36); Mean Corpuscular Volume 85.6 fL (80-100); Mean Platelet Volume 11.3 fL (7.4-10.4); Platelet Count 139 K/uL (130-400); RDW Coefficient of Variation 19.7 % (11.5-14.5); RDW Standard Deviation 61.9 fL (36.4-46.3); Red Blood Count 4.66 M/uL (4.2-5.4); White Blood Count 9.99 K/uL (4.8-10.8)
[2019-07-10 00:02] LABS: Basophils # (auto) 0.02 K/uL (0-0.2); Basophils % (auto) 0.2 %; Eosinophils # (auto) 0.33 K/uL (0-0.5); Eosinophils % (auto) 3.3 %; Immature Granulocytes # (auto) 0.07 K/uL (0.00-0.02); Immature Granulocytes % (auto) 0.7 %; Lymphocytes # (auto) 1.56 K/uL (1.2-3.4); Lymphocytes % (auto) 15.6 %; Monocytes # (auto) 0.68 K/uL (0.11-0.59); Monocytes % (auto) 6.8 %; Neutrophils # (auto) 7.33 K/uL (1.4-6.5); Neutrophils % (auto) 73.4 %; Platelet Estimate Decreased (Normal); Stomatocytes 1+
[2019-07-10] MEDS ORDERED: OPTIRAY 320 125ml IV PRN (01:07)
[2019-07-10 05:16] LABS: Hematocrit (blood only) 35.8 % (37-47)
[2019-07-10] MEDS ORDERED: FUROSEMIDE 40 MG/4 ML VIAL IV STA (05:58)
--- NOTE | 2019-07-10 05:58 | History & Physical Report ---
Date of Service July 10, 2019 Assessment & Plan (1) CHF (congestive heart failure): Decompensated heart failure hx chronic diastolic heart failure (EF 55 to 60%, TTE 2014) Recurrent postmenopausal bleeding Possible bleed from uterine fibroid (found on pelvic ultrasound) History endometrial hyperplasia, patient refused additional Provera withdrawal Rx due to medication intolerance as per outpatient note chronic respiratory failure secondary to OHS on home O2, oxygenation at baseline HTN, stable DM2, insulin requiring, well-controlled as of recent hemoglobin A1c of 5.20 October 2018 hx CVA as per records hx colon cancer status post surgery chronic anemia, hemoglobin at baseline Functional disability PCU Diuretic Rx Strict I/Os, daily weights, CHF education, may need fluid restriction Update TTE, Cardiology consult RE decompensated CHF Serial H&H, transfuse PRBC if hemoglobin less than 8 and or for symptomatic anemia Hold aspirin for now given bleed Gynecology consult RE recurrent postmenopausal bleed (ER provider already in touch with Dr. Toro.) N.p.o. for now until patient seen by Gynecology in anticipation of any procedure. Basal insulin adjusted for n.p.o. status for now, ISS BG goal [id number], update hemoglobin A1c PT OT eval DVT prophylaxis. SCDs RE bleed Full code Text document was generated using [employer] voice recognition software. It may contain grammatical or spelling errors. Kindly contact undersigned for clarification of any documentation item in question. History of Present Illness Chief Complaint: Bleeding from my bottom Primary Care Provider: Bairon Owens MD History obtained from patient and records. Medical history significant for chronic respiratory failure secondary to OHS on home O2, asthma, chronic diastolic heart failure (EF 55 to 60%, TTE 2014), HTN, PSVT as per records, DM2, insulin requiring, hx CVA, IBD as per records, colon cancer status post surgery, chronic anemia (baseline Hg of 10), mood disorder, endometrial hyperplasia as per records. Last confinement October 2018 for pneumonia status post intubation/mechanical ventilation. During confinement she was found to have a transverse colon mass suspicious for malignancy. She was transferred to [facility] for further management. Biopsy of colonic mass showed adenocarcinoma. Patient subsequently extubated at [facility]. Patient underwent right hemicolectomy at [facility] last November 2018. No chemotherapy needed for stage I cancer as per outpatient general surgery note. Cancer surveillance with colonoscopy and CAT scans contemplated for November 2019. Last week patient noted increased leg swelling bilateral with usual shortness of breath. No cough symptoms. Patient unable to weigh herself at home due to being bedbound. Compliant with home meds, denies dietary discretion. Patient took 1 Lasix tablet at home. Last night, patient noticed passage of massive blood clots in the toilet associated with mild achy abdominal cramps. She initially thought it was coming from her rectum. No emesis. No fever, no chills. At the ER, massive clots found coming from patient's vagina on pelvic exam. Medical History as above [facility] outpatient Gynecology visit last February 2010 for postmenopausal bleeding attributed to endometrial hyperplasia. Patient refused additional progestational withdrawal due to intolerance to medication as per note. Surgical History : Hemicolectomy with anastomosis, right ear tube placement, D&C, nasal septum repair, partial nephrectomy left, tonsillectomy Family History : Diabetes, heart disease Personal/Social history : Non-smoker, no EtOH intake, disabled Allergies Allergy/AdvReac Type Severity Reaction Status Date / Time fluoxetine Allergy Severe ANAPHYLAXIS Verified 07/10/19 00:35 Insulins Allergy Severe LANTUS/LEVEMIR- Verified 07/10/19 00:35 HIVES/THROAT SWELLING moxifloxacin Allergy Severe HIVES Verified 07/10/19 00:35 nitrofurantoin Allergy Severe HIVES Verified 07/10/19 00:35 paroxetine Allergy Severe HIVES Verified 07/10/19 00:35 Quinolones Allergy Severe AVELOX & Verified 07/10/19 00:35 LEVAQUIN-HIVES amitriptyline Allergy Intermediate Sweats and Verified 07/10/19 00:35 itching buspirone Allergy Intermediate HIVES Verified 07/10/19 00:35 cephalexin Allergy Intermediate Hives Verified 07/10/19 00:35 citalopram Allergy Intermediate HIVES-RASH Verified 07/10/19 00:35 escitalopram Allergy Intermediate HIVES-RASH Verified 07/10/19 00:35 levofloxacin Allergy Intermediate Hives Verified 07/10/19 00:35 methadone Allergy Intermediate HIVES Verified 07/10/19 00:35 Penicillins Allergy Intermediate RASH,HIVES Verified 07/10/19 00:35 Serotonin 5HT-3 Antagonists Allergy Intermediate MIGRAINES Verified 07/10/19 00:35 TO SSRIs trazodone Allergy Intermediate BLOODY Verified 07/10/19 00:35 NOSE, HEADACHES,HIVES vancomycin Allergy Intermediate HIVES Verified 07/10/19 00:35 prednisone Allergy Mild CHEST Verified 07/10/19 00:35 TIGHTNESS carbamazepine Allergy Unknown HIVES-RASH- Verified 07/10/19 00:35 ITCHINESS cefepime Allergy Unknown face & arm Verified 07/10/19 00:35 redness/itching after 2nd or 3rd dose cefepime ceftriaxone Allergy Unknown Received Verified 07/10/19 00:35 in MTU (but needed benadryl for course of therapy Cipro Allergy Unknown ABD PAINS Verified 09/08/17 09:10 ciprofloxacin Allergy Unknown ABD PAINS Verified 07/10/19 00:35 sertraline Allergy Unknown UNKNOWN Verified 07/10/19 00:35 sitagliptin Allergy Unknown HIVES Verified 07/10/19 00:35 azithromycin Allergy Hives Verified 07/10/19 00:35 Cephalosporins Allergy Hives Verified 07/10/19 00:35 metformin [[facility]] Allergy Unknown Verified 07/10/19 00:35 Tetracyclines AdvReac Severe HIVES Verified 07/10/19 00:35 Sulfa (Sulfonamide AdvReac Intermediate MIGRAINES Verified 07/10/19 00:35 Antibiotics) fexofenadine AdvReac Mild GI SYMPTOMS Verified 07/10/19 00:35 tizanidine AdvReac Mild ITCHING-HIV Verified 07/10/19 00:35 ES gentamicin AdvReac Unknown UNKNOWN Verified 07/10/19 00:35 lorazepam AdvReac Unknown Verified 07/10/19 00:35 Home Medications Home Medications Medication Instructions Recorded Confirmed Type Calmoseptine 1 applic TOPICAL QID PRN 10/25/17 07/10/19 History Novolin R Regular U-100 Insuln 30 unit SUBCUT . Q LUNCH 10/25/17 07/10/19 History Novolin R Regular U-100 Insuln 70 unit SUBCUT QAM 10/25/17 07/10/19 History Tresiba FlexTouch U-200 65 unit SUBCUT .AM & LUNCH 10/25/17 07/10/19 History albuterol sulfate 2.5 mg INHALATION Q6 PRN 10/25/17 07/10/19 History albuterol sulfate [Ventolin HFA] 2 puff INHALATION QID PRN 10/25/17 07/10/19 History celecoxib [Celebrex] 200 mg PO DAILY PRN 10/25/17 07/10/19 History duloxetine [Cymbalta] 30 mg PO BID 10/25/17 07/10/19 History furosemide [Lasix] 40 mg PO DAILY PRN 10/25/17 07/10/19 History levothyroxine 100 mcg PO DAILY 10/25/17 07/10/19 History metoprolol succinate 25 mg PO DAILY 10/25/17 07/10/19 History montelukast [Singulair] 10 mg PO PM 10/25/17 07/10/19 History nystatin 1 applic TOPICAL TID 10/25/17 07/10/19 History pantoprazole 40 mg PO DAILY 10/25/17 07/10/19 History polyethylene glycol 3350 [Miralax] 17 g PO DAILY 10/25/17 07/10/19 History potassium chloride 20 meq PO DAILY PRN 10/25/17 07/10/19 History pregabalin [Lyrica] 200 mg PO TID 10/25/17 07/10/19 History simvastatin [Zocor] 20 mg PO HS 10/25/17 07/10/19 History sumatriptan succinate [Imitrex] 100 mg PO UD PRN 10/25/17 07/10/19 History ursodiol 600 mg PO BID 10/25/17 07/10/19 History Novolin R Regular U-100 Insuln 40 unit SUBCUT .Q EVENING MEAL 10/24/18 07/10/19 History baclofen 5 mg PO HS 10/24/18 07/10/19 History mirtazapine 45 mg PO HS 10/24/18 07/10/19 History empagliflozin [Jardiance] 25 mg PO DAILY 07/10/19 07/10/19 History ferrous sulfate 325 mg PO DAILY 07/10/19 07/10/19 History etfyxaxwufr-kleqodvdf-crwlhuty 1 ea INHALATION DAILY 07/10/19 07/10/19 History [Trelegy Ellipta] insulin degludec [Tresiba 65 unit SUBCUT BID 07/10/19 07/10/19 History FlexTouch U-200] levocetirizine 5 mg PO PM 07/10/19 07/10/19 History metformin 2,000 mg PO DAILY 07/10/19 07/10/19 History nortriptyline 10 mg PO HS 07/10/19 07/10/19 History nystatin 1 applic TOPICAL BID 07/10/19 07/10/19 History ondansetron HCl 4 mg PO Q6H PRN 07/10/19 07/10/19 History Past Med/Surg History Medical History Cerebrovascular disease (Chronic) "history left thalamic stroke" Chronic hypercapnic respiratory failure (Chronic) Chronic pain disorder (Chronic 01/24/14) COPD (chronic obstructive pulmonary disease) (Chronic) CVA (cerebral vascular accident) hx of L thalamus CVA Diabetes mellitus, type II (Chronic) Dyslipidemia (Chronic) HLD (hyperlipidemia) (Chronic) Hypertension (Chronic) Hypertension (Chronic) Hypertrophic cardiomyopathy (Chronic) Hypothyroidism (Chronic) Morbid obesity (Chronic) Obesity hypoventilation syndrome (Chronic) JOSE (obstructive sleep apnea) (Chronic) Recurrent UTI (Chronic) Surgical History H/O partial nephrectomy History of tonsillectomy Hx of nasal septoplasty S/P dilatation and curettage Status post tonsillectomy (Chronic) Family History Father Coronary heart disease Mother Diabetes Social History Preferred Language: Burkinan Communication Ability: Effective Api Developer Required: No Beliefs That Will Affect Care: None marital status: Current Living Situation: Spouse Current Living Situation Comment: living at home with Other Information That Helps Us Care for You: No Feels Safe at Home: Yes Safety Concerns: Feels Safe At This Time Smoking Status: Never smoker Second Hand Exposure: No ; Hx Alcohol Use: No Hx Substance Use: No Review of Systems Review of Systems: As per HPI, all 10 systems reviewed, all other ROS negative Physical Exam Physical Exam: GENERAL: Slightly anxious, morbidly obese, no respiratory distress SKIN: Pallor , warm HEENT: Pale palpebral conjunctivae, no ptosis, moist buccal mucosa, nasal cannula in place NECK : Supple, short neck, no tenderness CHEST : Decreased breath sounds , no tenderness HEART : RRR, no obvious murmurs ABDOMEN: Marked abdominal distention, nontender exam not performed EXTREMITIES : Bilateral LE swelling R>L, no LE tenderness, no other conspicuous deformities noted NEUROLOGIC : Coherent, no facial asymmetry, no other gross focality Results & Data Results & Data ([facility]) Vital Signs (Past 12 Hours) Vital Signs Pulse Resp BP Pulse Ox 07/10/19 05:02 96 H 20 139/48 L 95 07/10/19 03:30 88 22 134/79 98 07/10/19 03:00 98 H 21 123/43 L 95 07/10/19 02:35 88 20 103/89 93 07/10/19 02:00 88 22 150/44 H 95 07/10/19 01:30 88 23 144/41 H 95 07/10/19 01:00 20 153/49 H 93 07/10/19 00:30 80 22 155/52 H 93 07/10/19 00:01 81 21 131/46 L 97 07/09/19 23:34 81 16 171/54 H 95 07/09/19 23:03 88 22 140/72 100 07/09/19 22:58 91 H 22 140/72 Laboratory Results Laboratory Results WBC 9.99 K/uL (4.8-10.8) 07/09/19 23:05 RBC 4.66 M/uL (4.2-5.4) 07/09/19 23:05 Hgb 10.0 g/dL (12.0-16.0) L 07/10/19 04:09 Hct 35.8 % (37-47) L 07/10/19 04:09 MCV 85.6 fL (80-100) 07/09/19 23:05 MCH 23.6 pg (25-34) L 07/09/19 23:05 MCHC 27.6 g/dL (32-36) L 07/09/19 23:05 RDW Std Deviation 61.9 fL (36.4-46.3) H 07/09/19 23:05 RDW Coeff of Duy 19.7 % (11.5-14.5) H 07/09/19 23:05 Plt Count 139 K/uL (130-400) 07/09/19 23:05 MPV 11.3 fL (7.4-10.4) H 07/09/19 23:05 Immature Gran % (Auto) 0.7 % 07/09/19 23:05 Neut % (Auto) 73.4 % 07/09/19 23:05 Lymph % (Auto) 15.6 % 07/09/19 23:05 [place] % (Auto) 6.8 % 07/09/19 23:05 Eos % (Auto) 3.3 % 07/09/19 23:05 Baso % (Auto) 0.2 % 07/09/19 23:05 Immature Gran # (Auto) 0.07 K/uL (0.00-0.02) H 07/09/19 23:05 Neut # (Auto) 7.33 K/uL (1.4-6.5) H 07/09/19 23:05 Lymph # (Auto) 1.56 K/uL (1.2-3.4) 07/09/19 23:05 [place] # (Auto) 0.68 K/uL (0.11-0.59) H 07/09/19 23:05 Eos # (Auto) 0.33 K/uL (0-0.5) 07/09/19 23:05 Baso # (Auto) 0.02 K/uL (0-0.2) 07/09/19 23:05 Platelet Estimate Decreased (Normal) L 07/09/19 23:05 Stomatocytes 1+ 07/09/19 23:05 PT 10.9 Seconds (9.0-12.0) 07/09/19 23:05 INR 1.0 (0.9-1.1) 07/09/19 23:05 Sodium 139 mmol/L (136-145) 07/09/19 23:05 Potassium 4.1 mmol/L (3.5-5.1) 07/09/19 23:05 Chloride 98 mmol/L (98-107) 07/09/19 23:05 Carbon Dioxide 40 mmol/L (21-32) H 07/09/19 23:05 Anion Gap 2.0 (3-11) L 07/09/19 23:05 BUN 14 mg/dl (7-18) 07/09/19 23:05 Creatinine 0.82 mg/dl (0.6-1.2) 07/09/19 23:05 Est Cr Clr Drug Dosing 104.6 ml/min 07/09/19 23:05 Est GFR ( Amer) 84.6 07/09/19 23:05 Est GFR (Non-Af Amer) 73.0 07/09/19 23:05 BUN/Creatinine Ratio 16.5 (10-20) 07/09/19 23:05 Glucose 184 mg/dl (70-99) H 07/09/19 23:05 Calcium 8.9 mg/dl (8.5-10.1) 07/09/19 23:05 Magnesium 2.1 mg/dl (1.8-2.4) 07/09/19 23:05 Total Bilirubin 0.4 mg/dl (0.2-1) 07/09/19 23:05 AST 29 U/L (15-37) 07/09/19 23:05 ALT 28 U/L (12-78) 07/09/19 23:05 Alkaline Phosphatase 125 U/L (45-117) H 07/09/19 23:05 Troponin I < 0.015 ng/ml (0-0.045) 07/09/19 23:05 Total Protein 7.9 gm/dl (6.4-8.2) 07/09/19 23:05 Albumin 3.3 gm/dl (3.4-5.0) L 07/09/19 23:05 Globulin 4.6 gm/dl (2.5-4.0) H 07/09/19 23:05 Albumin/Globulin Ratio 0.7 (0.9-2) L 07/09/19 23:05 Lipase 71 U/L (73-393) L 07/09/19 23:05 Diagnostic Findings Chest x-ray as per my interpretation interstitial congestion EKG as per my interpretation : Rate 75, NSR, LAD, LAFB, no ischemia CT abdomen pelvis initial read: Previous bowel surgery. Nonobstructive bowel gas pattern. Appendix not identified. Cardiomegaly, small moderate amount of fluid peritoneal cavity. Splenomegaly. Left adrenal nodule. Abdominal wall edema. Pelvic ultrasound initial read; (patient declined transvaginal eval, exam limited by increased body habitus) 6 cm hypoechoic shadowing structure near the uterine fundus likely uterine fibroid. Normal endometrial thickness. 2 mm. Flow visualized within right ovary. Small 1 cm at the right ovarian cyst. Left ovary not visualized due to overlying bowel. No free fluid.
--- NOTE | 2019-07-10 07:27 | CT Scan Report ---
CT abd pelvis IV con only CLINICAL HISTORY: rectal bleed COMPARISON STUDY: 10/26/2018 TECHNIQUE: The patient was scanned in a dynamic helical fashion during intravenous administration of 118 cc of Optiray 320 A dose lowering technique was utilized adhering to the principles of ALARA. CT DOSE: 2321.46 mGy.cm FINDINGS: Lower chest: There are bibasilar parenchymal opacities, likely atelectatic. There is a small left ple ural effusion. Liver: The contrast-enhanced liver is normal in size, contour, and attenuation. There is no intrahepa tic biliary ductal dilatation. The hepatic veins and portal veins are patent. Gallbladder: Unremarkable. Spleen: The spleen is enlarged measuring 20 cm. There are nonspecific small splenic hypodense lesions measuring up tor 13 mm. Pancreas: Unremarkable. Adrenal glands: There are 2 left adrenal nodules, the largest of which measures 24 mm Kidneys: There is right-sided nephrolithiasis. There is a 22 mm left renal cyst. Bowel: There are no transition zones to indicate bowel obstruction. There are no findings to indicate acute diverticulitis. The patient appears be status post a right hemicolectomy. Peritoneum: There is low volume ascites. Vasculature: The abdominal aorta is normal in course and caliber. Adenopathy: None. Pelvic viscera: The bladder, and pelvic viscera are unremarkable. Skeletal structures: There is a chronic superior endplate L2 compression deformity IMPRESSION: 1. Postsurgical changes of a right hemicolectomy 2. No evidence of bowel obstruction. No evidence of free air 3. Low volume ascites 4. Splenomegaly, with nonspecific small splenic hypodense lesions 5. Basilar airspace opacity statistically atelectatic 6. Stable left adrenal gland nodules. 7. No evidence of acute diverticulitis. No evidence of acute appendicitis. 8. Right-sided nephrolithiasis ACT 112: Negative or not required by law. Electronically signed by: Yvon Hermosillo M.D. 07/10/2019 7:25 AM
[2019-07-10] MEDS ORDERED: PROMETHAZINE HCL 12.5 MG in SODIUM CHLORIDE 0.9% 50 ML IV PRN (07:35)
[2019-07-10] MEDS ORDERED: CARBOHYDRATES FOR HYPOGLYCEMIA PO PRN (07:35)
[2019-07-10] MEDS ORDERED: OXYCODONE HCL IR 5 MG TAB (IMMEDIATE RELEASE) PO PRN (07:35)
[2019-07-10] MEDS ORDERED: GLUCOSE 40% GEL 15 GM TUBE PO PRN (07:35)
[2019-07-10] MEDS ORDERED: ACETAMINOPHEN 325 MG TAB PO PRN (07:35)
[2019-07-10] MEDS ORDERED: MoRPHine SULFATE 4 MG/ML 1 ML CARP\\VIAL IV PRN (07:35)
[2019-07-10] MEDS ORDERED: GLUCOSE 10 TABS/TUBE PO PRN (07:35)
[2019-07-10] MEDS ORDERED: DEXTROSE 50% 50 ML SYRINGE IV PRN (07:35)
[2019-07-10] MEDS ORDERED: GLUCAGON FOR INJ 1 MG VIAL SQ PRN (07:35)
[2019-07-10] MEDS ORDERED: NITROGLYCERIN SL 0.4 MG/TAB TAB SL PRN (07:35)
--- NOTE | 2019-07-10 07:51 | XRay Report ---
XR chest 1V portable CLINICAL HISTORY: weakness COMPARISON STUDY: 10/27/2018 FINDINGS: The endotracheal tube and nasogastric tubes have been removed. Heart is enlarged. There is mild vascular prominence without evidence of overt failure. There are bibasilar opacities, likely ate lectatic although an infectious process could appear similar. There are right humeral calcifications, likely representing a chondral lesion or bone infarct.[ IMPRESSION: 1. Nonspecific basilar opacities, statistically atelectatic ACT 112: Negative or not required by law. Electronically signed by: Yvon Hermosillo M.D. 07/10/2019 7:50 AM
[2019-07-10] MEDS ORDERED: METOPROLOL SUCC 25MG EXT REL TAB PO SCH (08:00)
--- NOTE | 2019-07-10 08:02 | Ultrasound Report ---
EXAMINATION: PELVIC ULTRASOUND CLINICAL HISTORY: vaginal bleeding COMPARISON STUDY: CT scan dated 07/10/2019 FINDINGS: The examination was limited from a technical standpoint. The patient has a BMI of 53. The patient ref used endovaginal scanning. The uterus measured 9.9 x 3.8 x 5 cm.. There is a 6 cm shadowing structure abutting the left aspect t he uterine fundus, likely representing exophytic fibroid The endometrial stripe measured 2 mm. The right ovary measured 19 x 12 x 23 mm. There is a 1 cm right ovarian follicle The left ovary was not visualized. There was no evidence of pathologic free pelvic fluid. IMPRESSION: 1. Technically limited study 2. Suspected exophytic 6 cm fundal fibroid 3. Nonvisualization of the left ovary ACT 112: Negative or not required by law. Electronically signed by: Yvon Hermosillo M.D. 07/10/2019 8:01 AM
[2019-07-10] MEDS ORDERED: PHARMACY GLYCEMIC MGMT CONSULT PRN (08:08)
[2019-07-10] MEDS ORDERED: POLYETHYLENE (MIRALAX) 17 GM PACK PO SCH (08:15)
[2019-07-10] MEDS ORDERED: PANTOprazole 40 MG TAB PO SCH (08:15)
[2019-07-10] MEDS ORDERED: UMECLIDINIUM/VILANTEROL 62.5/25MCG 7 PUFFS/INHALER INH SCH (08:15)
[2019-07-10] MEDS: ursodioL 300 MG CAP PO SCH ×2 (08:54→19:49)
[2019-07-10] MEDS: POTASSIUM CHLORIDE 20 MEQ TABCR PO SCH ×2 (08:55→19:48)
[2019-07-10] MEDS: DULOXETINE HCL 30 MG CAP PO SCH ×2 (08:55→19:48)
[2019-07-10] MEDS: LEVOTHYROXINE SODIUM 100 MCG TABLET PO SCH (08:56)
[2019-07-10] MEDS ORDERED: METOPROLOL TARTRATE 25 MG TAB PO SCH (09:00)
[2019-07-10] MEDS ORDERED: HumuLIN N 10 ML VIAL SC ONE (09:00)
[2019-07-10 09:02] LABS: NT Pro B Type Natriuretic Pept 224 pg/ml (0-900); Troponin I < 0.015 ng/ml (0-0.045)
[2019-07-10] MEDS: PREGABALIN 100 MG CAP PO SCH ×3 (09:02→19:54)
[2019-07-10] MEDS: NYSTATIN POWDER 15GM BTL EXT SCH ×3 (09:03→19:50)
[2019-07-10 09:37] LABS: Estimated Average Glucose 108 mg/dl; Hemoglobin A1C 5.4 % (4.5-5.6)
[2019-07-10] MEDS: INSULIN ASPART 100 UNITS/ML 3 ML PEN SC SCH ×4 (10:09→21:05)
[2019-07-10 10:14] LABS: Hematocrit (blood only) 31.5 % (37-47)
[2019-07-10 10:28] LABS: BUN Creatinine Ratio 19.1 (10-20); Calcium 8.1 mg/dl (8.5-10.1); Creatinine Clr Calc Pharmacy 126.8 ml/min; Est GFR (Non-African American) 90.6
[2019-07-10] MEDS ORDERED: SODIUM CHLORIDE 0.9% 250 ML IV PRN (11:20)
[2019-07-10] MEDS ORDERED: HumuLIN N 10 ML VIAL SC SCH ×2 (13:00→17:00)
--- NOTE | 2019-07-10 13:48 | Pharmacy Report ---
Glycemic Control Consultation - Date of Service July 10, 2019 - Scope Scope: Glycemic Pharmacist consulted for glycemic control and to write orders per [facility] inpatient glycemic control protocol. - Objective Weight: 150 kg Accuchecks BSG (last 24hrs): Laboratory Data (last 24hrs): 07/09/19 07/10/19 23:05 09:48 Potassium 4.1 4.0 Carbon Dioxide 40 H 38 H Anion Gap 2.0 L 4.0 Creatinine 0.82 0.65 Est Cr Clr Drug Dosing 104.6 126.8 HbA1c: Hemoglobin A1c 5.4 % (4.5-5.6) 07/09/19 23:05 - Recent Pertinent Medications Outpatient Anti-diabetic Regimen: * Tresiba 65 units SQ BID * Insulin Regular SQ 70 units with breakfast, 30 units with lunch, and 40 units with dinner * Jardiance 25 mg PO daily * Metformin ER 2000 mg PO daily * Note: Patient has allergies to Lantus, Levemir, and Sitagliptin * A1c = 5.4% yesterday Risk Factors for Insulin Resistance: * Diet: NPO - Assessment & Plan Assessment & Plan: ASSESSMENT: * 68 yo F admitted secondary to vaginal bleeding * Patient's A1c demonstrates excellent outpatient control * Fasting BSG this AM was 229 mg/dL, lunch BSG down to 218 mg/dL * Patient is NPO at this time in case of need for a procedure * Patient's basal bolus insulin regimen will be based on previous admission data and NPO status * Of note, she does have allergies to Lantus and Levemir so we will be utilizing NPH PLAN FOR INPATIENT GLYCEMIC CONTROL: * Holding outpatient oral diabetes medications * Basal insulin * NPH 30 units SQ TIDM * Bolus insulin * NovoLog per scale ACHS or Q6hrs while NPO * Goal Range: Low 120 mg/dL - High 160 mg/dL * Correction Factor: 8 mg/dL/unit * Nutritional / Prandial insulin per carb ratio of 1 unit per 3 grams CHO consumed * Please note that the plan above was derived based on current level of insulin resistance and hospital stress. These recommendations are appropriate for inpatient admission only. Plan of care upon discharge will need to be reassessed to avoid potential outpatient hypo/hyperglycemia. Thank you.
--- NOTE | 2019-07-10 14:28 | Gynecologic Progress Note ---
Date of Service July 10, 2019 Assessment & Plan Admission and Anticipated Discharge Date Admission Date: July 10, 2019 Physical Exam Physical Exam: Full consult dictated Will Start Aygestin to control acute bleeding will need endometrial sampling when stable Results & Data ([facility]) Vital Signs (Past 12 Hours) Vital Signs Temp Pulse Pulse Resp BP BP Pulse Ox 07/10/19 11:48 37.5 C 94 H 18 109/63 93 07/10/19 07:39 37.4 C 102 H 18 139/75 90 07/10/19 06:56 99 H 20 98/44 L 92 07/10/19 06:04 97 H 24 137/60 91 07/10/19 05:30 103 H 24 135/48 L 92 07/10/19 05:02 96 H 20 139/48 L 95 07/10/19 03:30 88 22 134/79 98 07/10/19 03:00 98 H 21 123/43 L 95 07/10/19 02:35 88 20 103/89 93
--- NOTE | 2019-07-10 14:54 | Consultation Report ---
DATE OF CONSULTATION: 07/10/2019 REQUESTING PHYSICIAN: Dr. Brad Medrano. ATTENDING PHYSICIAN: Dr. Owens. ADMITTING PHYSICIAN: Dr. Duncan. HISTORY OF PRESENT ILLNESS: The patient is a 68-year-old white female, para 2-0-0-2, prior vaginal delivery x2, postmenopausal since approximately age 49. She began having vaginal bleeding, started several days ago, passing clots golf ball size or larger. The patient denies pelvic pain, has not had any hormone replacement therapy nor did she have any postmenopausal bleeding earlier, states that occasionally she would have some spotting, but otherwise pretty much negative. She has not been to a mortuary technician in some time. Patient came into the ER thinking that she had a possible rectal bleeding due to the fact that she had colorectal surgery last year. She has multiple medical problems including congestive heart failure, insulin-dependent diabetes, hypertension, history of chronic anemia, history of colon cancer, history of nasal septal repair, partial nephrectomy and a tonsillectomy, morbid obesity. ALLERGIES: Reviewed. FAMILY HISTORY: Positive for diabetes and heart disease. SOCIAL HISTORY: Denies smoking, alcohol or any other drugs. HOME MEDICATIONS: Were reviewed and are many. PHYSICAL EXAMINATION: VITAL SIGNS: The patient's BMI is 50.3. ABDOMEN: Grossly obese, diffusely nontender. GENITOURINARY: Her vagina and vulva are atrophic. There is a large amount of bleeding noted. The speculum was inserted. The vagina was filled with clots, unable to visualize the source of bleeding presumably uterine in origin. There is no rectal bleeding that was noted. Bimanual exam was performed. There is no mass that was noted in the vagina and the uterus, ovaries were nonpalpable. DIAGNOSTIC IMAGING: Pelvic ultrasound was done, which was a limited study and done, did not include a vaginal scan. The uterus was slightly enlarged at 9.9 x 3.8 x 5 cm. A 6 cm structure on the left aspect of the uterine fundus, likely an exophytic fibroid. Endometrial stripe was measured at 2 mm. Right ovary was normal in size. Left ovary not visualized. Chest x-ray performed revealed possible atelectasis. LABORATORY STUDIES: Revealed hemoglobin of 9, hematocrit 31.5, which is a drop from admission of 11 and 39.9, platelet count was 139. The patient's blood sugar was elevated at 218. She is on a sliding scale for insulin. Her clotting factors were normal. Her TSH is normal at 3.67. ASSESSMENT: Postmenopausal bleeding, morbid obesity, probably uterine origin of blood. We will start the patient on Aygestin to control the acute bleeding. We will need endometrial sampling. Ideally, we would like an endovaginal pelvic ultrasound to determine more clearly if the endometrial lining is truly only 2 mm. We will follow as needed.
[2019-07-10] MEDS: NORETHINDRONE 5 MG TAB PO SCH ×2 (15:53→19:49)
--- NOTE | 2019-07-10 15:57 | Electrocardiogram Report ---
Test Reason : Blood Pressure : / mmHG Vent. Rate : 077 BPM Atrial Rate : 077 BPM P-R Int : 166 ms QRS Dur : 070 ms QT Int : 376 ms P-R-T Axes : 035 -03 061 degrees QTc Int : 425 ms Normal sinus rhythm Normal ECG When compared with ECG of 26-OCT-2018 09:22, No significant change was found Confirmed by Hardik Rome ([id number]) on 07/10/2019 3:57:30 PM Referred By: REFERRED SELF Confirmed By:Hardik Rome
[2019-07-10] MEDS ORDERED: FUROSEMIDE 40 MG/4 ML VIAL IV SCH (16:00)
--- NOTE | 2019-07-10 16:30 | Cardiology Consultation ---
Date of Consultation July 10, 2019 Assessment & Plan (1) Chronic hypercapnic respiratory failure: Patient with chronic hypercapnic respiratory failure. She describes baseline shortness of breath without worsening symptoms. Received 40 mg of IV furosemide this morning. I will place her back on her prior to hospital dose of 40 mg p.o. daily. I need to clarify if she takes this daily on an as-needed basis. I do not think further cardiac testing is warranted. History of Present Illness Attending Physician: Brad Medrano MD History of Present Illness Sangeetha Ramon is a 68 year old male seen in cardiology consultation per the request of Dr. Gomez for evaluation of CHF. The patient has a BMI of greater than 50 kg/m. She presented for what is felt to potentially be uterine bleeding. She describes a stable degree of shortness of breath. She most recently been seen outpatient in cardiology clinic in Jun, 2018 with history of obesity hypoventilation syndrome, previously on BiPAP, now on home ventilator therapy with supplemental oxygen. As well summarized in the admission history and physical, the patient underwent right hemicolectomy [facility] in November 2018 for what was diagnosed as stage I carcinoma. She had presented with severe anemia prior to the diagnosis. Allergies Allergy/AdvReac Type Severity Reaction Status Date / Time fluoxetine Allergy Severe ANAPHYLAXIS Verified 07/10/19 00:35 Insulins Allergy Severe LANTUS/LEVEMIR- Verified 07/10/19 00:35 HIVES/THROAT SWELLING moxifloxacin Allergy Severe HIVES Verified 07/10/19 00:35 nitrofurantoin Allergy Severe HIVES Verified 07/10/19 00:35 paroxetine Allergy Severe HIVES Verified 07/10/19 00:35 Quinolones Allergy Severe AVELOX & Verified 07/10/19 00:35 LEVAQUIN-HIVES amitriptyline Allergy Intermediate Sweats and Verified 07/10/19 00:35 itching buspirone Allergy Intermediate HIVES Verified 07/10/19 00:35 cephalexin Allergy Intermediate Hives Verified 07/10/19 00:35 citalopram Allergy Intermediate HIVES-RASH Verified 07/10/19 00:35 escitalopram Allergy Intermediate HIVES-RASH Verified 07/10/19 00:35 levofloxacin Allergy Intermediate Hives Verified 07/10/19 00:35 methadone Allergy Intermediate HIVES Verified 07/10/19 00:35 Penicillins Allergy Intermediate RASH,HIVES Verified 07/10/19 00:35 Serotonin 5HT-3 Antagonists Allergy Intermediate MIGRAINES Verified 07/10/19 00:35 TO SSRIs trazodone Allergy Intermediate BLOODY Verified 07/10/19 00:35 NOSE, HEADACHES,HIVES vancomycin Allergy Intermediate HIVES Verified 07/10/19 00:35 prednisone Allergy Mild CHEST Verified 07/10/19 00:35 TIGHTNESS carbamazepine Allergy Unknown HIVES-RASH- Verified 07/10/19 00:35 ITCHINESS cefepime Allergy Unknown face & arm Verified 07/10/19 00:35 redness/itching after 2nd or 3rd dose cefepime ceftriaxone Allergy Unknown Received Verified 07/10/19 00:35 in MTU (but needed benadryl for course of therapy Cipro Allergy Unknown ABD PAINS Verified 09/08/17 09:10 ciprofloxacin Allergy Unknown ABD PAINS Verified 07/10/19 00:35 sertraline Allergy Unknown UNKNOWN Verified 07/10/19 00:35 sitagliptin Allergy Unknown HIVES Verified 07/10/19 00:35 azithromycin Allergy Hives Verified 07/10/19 00:35 Cephalosporins Allergy Hives Verified 07/10/19 00:35 [facility] Allergy Unknown Verified 07/10/19 00:35 Tetracyclines AdvReac Severe HIVES Verified 07/10/19 00:35 Sulfa (Sulfonamide AdvReac Intermediate MIGRAINES Verified 07/10/19 00:35 Antibiotics) fexofenadine AdvReac Mild GI SYMPTOMS Verified 07/10/19 00:35 tizanidine AdvReac Mild ITCHING-HIV Verified 07/10/19 00:35 ES gentamicin AdvReac Unknown UNKNOWN Verified 07/10/19 00:35 lorazepam AdvReac Unknown Verified 07/10/19 00:35 Home Medications Home Medications Medication Instructions Recorded Confirmed Type Calmoseptine 1 applic TOPICAL QID PRN 10/25/17 07/10/19 History Novolin R Regular U-100 Insuln 30 unit SUBCUT . Q LUNCH 10/25/17 07/10/19 History Novolin R Regular U-100 Insuln 70 unit SUBCUT QAM 10/25/17 07/10/19 History Tresiba FlexTouch U-200 65 unit SUBCUT .AM & LUNCH 10/25/17 07/10/19 History albuterol sulfate 2.5 mg INHALATION Q6 PRN 10/25/17 07/10/19 History albuterol sulfate [Ventolin HFA] 2 puff INHALATION QID PRN 10/25/17 07/10/19 History celecoxib [Celebrex] 200 mg PO DAILY PRN 10/25/17 07/10/19 History duloxetine [Cymbalta] 30 mg PO BID 10/25/17 07/10/19 History furosemide [Lasix] 40 mg PO DAILY PRN 10/25/17 07/10/19 History levothyroxine 100 mcg PO DAILY 10/25/17 07/10/19 History metoprolol succinate 25 mg PO DAILY 10/25/17 07/10/19 History montelukast [Singulair] 10 mg PO PM 10/25/17 07/10/19 History nystatin 1 applic TOPICAL TID 10/25/17 07/10/19 History pantoprazole 40 mg PO DAILY 10/25/17 07/10/19 History polyethylene glycol 3350 [Miralax] 17 g PO DAILY 10/25/17 07/10/19 History potassium chloride 20 meq PO DAILY PRN 10/25/17 07/10/19 History pregabalin [Lyrica] 200 mg PO TID 10/25/17 07/10/19 History simvastatin [Zocor] 20 mg PO HS 10/25/17 07/10/19 History sumatriptan succinate [Imitrex] 100 mg PO UD PRN 10/25/17 07/10/19 History ursodiol 600 mg PO BID 10/25/17 07/10/19 History Novolin R Regular U-100 Insuln 40 unit SUBCUT .Q EVENING MEAL 10/24/18 07/10/19 History baclofen 5 mg PO HS 10/24/18 07/10/19 History mirtazapine 45 mg PO HS 10/24/18 07/10/19 History empagliflozin [Jardiance] 25 mg PO DAILY 07/10/19 07/10/19 History ferrous sulfate 325 mg PO DAILY 07/10/19 07/10/19 History brhnvtmcjmx-trelcqqhd-shzxiugd 1 ea INHALATION DAILY 07/10/19 07/10/19 History [Trelegy Ellipta] insulin degludec [Tresiba 65 unit SUBCUT BID 07/10/19 07/10/19 History FlexTouch U-200] levocetirizine 5 mg PO PM 07/10/19 07/10/19 History metformin 2,000 mg PO DAILY 07/10/19 07/10/19 History nortriptyline 10 mg PO HS 07/10/19 07/10/19 History nystatin 1 applic TOPICAL BID 07/10/19 07/10/19 History ondansetron HCl 4 mg PO Q6H PRN 07/10/19 07/10/19 History Patient History Medical History Cerebrovascular disease (Chronic) "history left thalamic stroke" Chronic hypercapnic respiratory failure (Chronic) Chronic pain disorder (Chronic 01/24/14) COPD (chronic obstructive pulmonary disease) (Chronic) CVA (cerebral vascular accident) hx of L thalamus CVA Diabetes mellitus, type II (Chronic) Dyslipidemia (Chronic) HLD (hyperlipidemia) (Chronic) Hypertension (Chronic) Hypertension (Chronic) Hypertrophic cardiomyopathy (Chronic) Hypothyroidism (Chronic) Morbid obesity (Chronic) Obesity hypoventilation syndrome (Chronic) JOSE (obstructive sleep apnea) (Chronic) Recurrent UTI (Chronic) Surgical History H/O partial nephrectomy History of tonsillectomy Hx of nasal septoplasty S/P dilatation and curettage Status post tonsillectomy (Chronic) Family History Father Coronary heart disease Mother Diabetes Social History Preferred Language: Slovenian Communication Ability: Effective Senior Financial Analyst Required: No Beliefs That Will Affect Care: None marital status: Current Living Situation: Spouse Current Living Situation Comment: living at home with Other Information That Helps Us Care for You: No Feels Safe at Home: Yes Safety Concerns: Feels Safe At This Time Smoking Status: Never smoker Second Hand Exposure: No ; Hx Alcohol Use: No Hx Substance Use: No Physical Exam Physical Exam: Temp Pulse Resp BP Pulse Ox 37.5 C 93 H 19 130/62 91 07/10/19 15:49 07/10/19 15:49 07/10/19 15:49 07/10/19 15:49 07/10/19 15:49 Constitutional: WD/WN, vitals as above Respiratory: normal respiratory effort, lungs clear to auscultation Cardiovascular: RRR, no murmur, no edema Neurologic: PERRL, EOMI, accommodation nl, no face palsy, no dysarthria Results & Data ([facility]) Vital Signs (Past 12 Hours) Vital Signs Temp Pulse Pulse Resp BP BP Pulse Ox 07/10/19 15:49 37.5 C 93 H 19 130/62 91 07/10/19 11:48 37.5 C 94 H 18 109/63 93 07/10/19 07:39 37.4 C 102 H 18 139/75 90 07/10/19 06:56 99 H 20 98/44 L 92 07/10/19 06:04 97 H 24 137/60 91 07/10/19 05:30 103 H 24 135/48 L 92 07/10/19 05:02 96 H 20 139/48 L 95 Laboratory Results Cardiac Enzymes 07/09/19 07/10/19 Range/Units 23:05 08:12 AST 29 (15-37) U/L Troponin I < 0.015 < 0.015 (0-0.045) ng/ml Coagulation 07/09/19 Range/Units 23:05 PT 10.9 (9.0-12.0) Seconds CBC 07/09/19 07/10/19 07/10/19 Range/Units 23:05 04:09 09:48 WBC 9.99 (4.8-10.8) K/uL RBC 4.66 (4.2-5.4) M/uL Hgb 11.0 L 10.0 L 9.0 L (12.0-16.0) g/dL Hct 39.9 35.8 L 31.5 L (37-47) % Plt Count 139 (130-400) K/uL Neut # (Auto) 7.33 H (1.4-6.5) K/uL Lymph # (Auto) 1.56 (1.2-3.4) K/uL [place] # (Auto) 0.68 H (0.11-0.59) K/uL Eos # (Auto) 0.33 (0-0.5) K/uL Baso # (Auto) 0.02 (0-0.2) K/uL Comprehensive Metabolic Panel 07/09/19 07/10/19 Range/Units 23:05 09:48 Sodium 139 141 (136-145) mmol/L Potassium 4.1 4.0 (3.5-5.1) mmol/L Chloride 98 99 (98-107) mmol/L Carbon Dioxide 40 H 38 H (21-32) mmol/L BUN 14 12 (7-18) mg/dl Creatinine 0.82 0.65 (0.6-1.2) mg/dl Glucose 184 H 219 H (70-99) mg/dl Calcium 8.9 8.1 L (8.5-10.1) mg/dl AST 29 (15-37) U/L ALT 28 (12-78) U/L Alkaline Phosphatase 125 H (45-117) U/L Total Protein 7.9 (6.4-8.2) gm/dl Albumin 3.3 L (3.4-5.0) gm/dl Intake and Output 07/10/19 07/10/19 07/10/19 06:59 14:59 22:59 Intake Total 400 / 400 0 / 0 Output Total 1300 / 1300 Balance 400 / 400 -1300 / -1300 Intake: IV 400 / 400 Nss 1000ML 1,000 ml @ 125 mls/ 400 / 400 hr IV .Q8H [facility] Rx#:[id number] Oral 0 / 0 Output: Urine Amount (Catheter) 1300 / 1300 Ferrell/Indwelling 1300 / 1300 Other: # Unmeasured Voids 2 Weight 160 kg 150 kg Patient Weight 07/11/19 06:59 Weight 150 kg Diagnostic Findings EKG performed 07/09/2019 revealed normal sinus rhythm at 77 bpm. Echocardiogram revealed EF greater than 70% without significant valvular abnormality.
[2019-07-10 16:33] LABS: Hemoglobin 8.3 g/dL (12.0-16.0)
[2019-07-10] MEDS ORDERED: SIMVASTATIN 20 MG TAB PO SCH (20:00)
[2019-07-10] MEDS ORDERED: NORTRIPTYLINE HCL 10 MG CAP PO SCH (20:00)
[2019-07-10] MEDS ORDERED: MONTELUKAST SODIUM 10 MG TABLET PO SCH (20:00)
[2019-07-10] MEDS ORDERED: MIRTAZAPINE SOLTAB 15 MG PO SCH (20:00)
[2019-07-10] MEDS ORDERED: BACLOFEN 10 MG TAB PO SCH (20:00)
[2019-07-10 21:53] LABS: Hematocrit (blood only) 26.4 % (37-47); Hemoglobin 7.7 g/dL (12.0-16.0)
[2019-07-11] MEDS ORDERED: SODIUM CHLORIDE 0.9% 250 ML IV PRN (02:07)
[2019-07-11] MEDS: NORETHINDRONE 5 MG TAB PO SCH ×2 (02:54→04:18)
--- NOTE | 2019-07-11 03:15 | Communication Note ---
Date of Service: July 11, 2019 delayed entry date of service 07/10/19 seen resting in bed, comfortable, not in distress states she feels fine overall denies shortness of breath, chest pain, dizziness, palpitations no abdominal pain, nausea still passing clots per vagina VS noted and reviewed General- oriented x 3, not in distress, speaks in sentences with no effort or accessory muscle use Eyes- anicteric Neck- no JVD Lungs- diminished breath sounds bilaterally but no wheezing, crackles Heart- normal rate, regular rhythm; no murmurs Abdomen- normal bowel sounds, nondistended, soft, nontender Extremities- minimal pretibial edema, no calf tenderness Neuro- alert, oriented x 3; no gross focal neurologic deficits Skin- warm & dry a/p> (1) CHF (congestive heart failure): Decompensated heart failure hx chronic diastolic heart failure (EF 55 to 60%, TTE 2014) -- echo pending -- Lasix 40mg IV q12h Recurrent postmenopausal bleeding Possible bleed from uterine fibroid (found on pelvic ultrasound) History endometrial hyperplasia, patient refused additional Provera withdrawal Rx due to medication intolerance as per outpatient note -- A P Supervisor consulted, discussed with Dr. Watkins Norethindrone started -- Aspirin on hold Acute Blood Loss Anemia secondary to Postmenopausal Bleeding -- Hg 11--> 9 2 units of PRBC ordered patient had anaphylactic reaction to pRBCs last Fall coordinated with Blood Bank/Pathologist Dr. Lainez, washed pRBCs recommended, request form to [facility] filled out, informed available blood not screened for Babesiosis, need to inform patient prior to transfusion Hg goal > 7 other diagnoses and plan of care as per Dr. Duncan's notes Brad Medrano MD
[2019-07-11] MEDS ORDERED: ATROPINE SULFATE 0.1 MG/ML 10ML SYR IV STA (03:37)
[2019-07-11] MEDS ORDERED: ALBUMIN 25% 50 ML IV ONE ×3 (03:38→06:15)
[2019-07-11] MEDS ORDERED: ATROPINE SULFATE 0.1 MG/ML 10ML SYR IV ONE (03:38)
[2019-07-11] MEDS ORDERED: EPINEPHrine INJ 1 MG/ML AMP IM STA ×2 (03:40→04:37)
[2019-07-11] MEDS ORDERED: methylPREDNISolone 125 MG in SYRINGE 0 ML IV STA (03:41)
--- NOTE | 2019-07-11 03:41 | Communication Note ---
Date of Service: July 11, 2019 Made aware by RN of around 330 AM of patient hypotension, bradycardia, hypoxemia, transient unresponsiveness. Second unit packed RBC has been transfusing for about 20 minutes at time of event. SBP 70s, CR 30s later 90s, O2 sats 70s. Blood transfusion halted for possible transfusion reaction. IM epinephrine, Solu-Medrol, Benadryl given for possible anaphylactic reaction to blood product. SBP 80-90s, CR 90s, O2 sats 93 on 5 L post intervention. IV albumin given for hypotension given pulmonary congestion on x-ray. Patient currently feels a little better. Still complaining of abdominal discomfort and continuous vaginal clot passage. Lab work sent following transfusion reaction protocol. Repeat hemoglobin 6.6 from 7.7 last night prior to second unit PRBC transfusion. AP Hemorrhagic shock Ongoing uterine bleed on Aygestin Rx as per gynecology recommendations Possible transfusion reaction Additional blood product needs to be sourced from [facility] in [place], [place]. Commodity Supervisor service and assistant professor of english certified medication technician (Dr. Cruz) recommend transfer to tertiary care center given blood bank capability. Case discussed with Dr. Dillard ([facility] [place] box printing machine operator certified medication technician) who has kindly accepted patient for transfer. Patient to transfer via [facility]. Patient and agreeable to plan of care.
[2019-07-11] MEDS ORDERED: DiphenhydrAMINE HCL 50 MG/ML VIAL IV STA (03:54)
[2019-07-11] MEDS ORDERED: ACETAMINOPHEN 1,000 MG/100 ML VIAL IV STA (04:01)
[2019-07-11] MEDS ORDERED: ALBUT/IPRATROP 3MG/0.5MG NEB 3 ML VIAL NEB STA (04:10)
[2019-07-11 04:18] LABS: Allen Test POS (Pos); Base Excess ABG 11.6 mEq/L (-9-1.8); HCO3 ABG 39 mmol/L (19-24); Oxygen Saturation ABG 95.4 % (90-95); PCO2 ABG 79 mmHg (35-46); PO2 ABG 88 mmHg (80-95); pH ABG 7.32 (7.35-7.45)
[2019-07-11 04:35] LABS: Albumin Level 2.4 gm/dl (3.4-5.0); BUN Creatinine Ratio 16.6 (10-20); Bilirubin Direct 0.1 mg/dl (0-0.2); Calcium 7.6 mg/dl (8.5-10.1); Creatinine Clr Calc Pharmacy 83.3 ml/min; Est GFR (African American) 67.4; Est GFR (Non-African American) 58.1; Magnesium 1.8 mg/dl (1.8-2.4); Potassium 4.4 mmol/L (3.5-5.1)
[2019-07-11] MEDS ORDERED: MAGNESIUM SULFATE / D5W 1 GM/100 ML BAG IV ONE (04:37)
[2019-07-11] MEDS: LEVOTHYROXINE SODIUM 100 MCG TABLET PO SCH (04:41)
[2019-07-11 04:45] LABS: Bilirubin,Total 0.4 mg/dl (0.2-1); Total Protein 5.6 gm/dl (6.4-8.2)
[2019-07-11 05:15] LABS: Hemoglobin 6.8 g/dL (12.0-16.0); Mean Corpuscular Hemoglobin 23.4 pg (25-34); Mean Corpuscular Hgb Conc 28.3 g/dL (32-36); Mean Corpuscular Volume 82.8 fL (80-100); Mean Platelet Volume 10.7 fL (7.4-10.4); Platelet Count 195 K/uL (130-400); RDW Coefficient of Variation 20.1 % (11.5-14.5); RDW Standard Deviation 60.3 fL (36.4-46.3); White Blood Count 14.16 K/uL (4.8-10.8)
[2019-07-11 05:31] LABS: Basophilic Stippling 1+; Basophils # (auto) 0.04 K/uL (0-0.2); Basophils % (auto) 0.3 %; Eosinophils # (auto) 0.59 K/uL (0-0.5); Eosinophils % (auto) 4.2 %; Immature Granulocytes # (auto) 0.11 K/uL (0.00-0.02); Immature Granulocytes % (auto) 0.8 %; Lymphocytes # (auto) 1.92 K/uL (1.2-3.4); Lymphocytes % (auto) 13.6 %; Monocytes # (auto) 1.33 K/uL (0.11-0.59); Monocytes % (auto) 9.4 %; Neutrophils # (auto) 10.17 K/uL (1.4-6.5); Neutrophils % (auto) 71.7 %; Polychromasia 1+; Stomatocytes 1+
[2019-07-11] MEDS ORDERED: INSULIN ASPART 100 UNITS/ML 3 ML PEN SC SCH (06:00)
[2019-07-11 06:28] LABS: Base Excess ABG 11.4 mEq/L (-9-1.8); HCO3 ABG 38 mmol/L (19-24); Oxygen Saturation ABG 93.7 % (90-95); PCO2 ABG 64 mmHg (35-46); PO2 ABG 75 mmHg (80-95); pH ABG 7.39 (7.35-7.45)
--- NOTE | 2019-07-11 06:32 | Discharge Summary ---
Date of Service July 11, 2019 Admission HPI Per Admitting Provider History obtained from patient and records. Medical history significant for chronic respiratory failure secondary to OHS on home O2, asthma, chronic diastolic heart failure (EF 55 to 60%, TTE 2014), HTN, PSVT as per records, DM2, insulin requiring, hx CVA, IBD as per records, colon cancer status post surgery, chronic anemia (baseline Hg of 10), mood disorder, endometrial hyperplasia as per records. Last confinement October 2018 for pneumonia status post intubation/mechanical ventilation. During confinement she was found to have a transverse colon mass suspicious for malignancy. She was transferred to [facility] [place] for further management. Biopsy of colonic mass showed adenocarcinoma. Patient subsequently extubated at [facility] [place]. Patient underwent right hemicolectomy at [facility] last November 2018. No chemotherapy needed for stage I cancer as per outpatient general surgery note. Cancer surveillance with colonoscopy and CAT scans contemplated for November 2019. Last week patient noted increased leg swelling bilateral with usual shortness of breath. No cough symptoms. Patient unable to weigh herself at home due to being bedbound. Compliant with home meds, denies dietary discretion. Patient took 1 Lasix tablet at home. Last night, patient noticed passage of massive blood clots in the toilet associated with mild achy abdominal cramps. She initially thought it was coming from her rectum. No emesis. No fever, no chills. At the ER, massive clots found coming from patient's vagina on pelvic exam. Medical History as [place] [facility] [place] last February 2010 for postmenopausal bleeding attributed to endometrial hyperplasia. Patient refused additional progestational withdrawal due to intolerance to medication as per note. Surgical History : Hemicolectomy with anastomosis, right ear tube placement, D&C, nasal septum repair, partial nephrectomy left, tonsillectomy Family History : Diabetes, heart disease Personal/Social history : Non-smoker, no EtOH intake, disabled Discharge Data Consultations 07/10/19 05:27 ED Decision to Admit Stat 07/10/19 07:35 Consult Cardiology Routine Consult Case Management - Discharge Planning Routine Consult Gynecology Routine 07/11/19 05:59 Burn CD for patient Stat Hospital Course (1) Hypotension: Patient admitted 07/09 for uterine bleeding and right sided CHF. Hemoglobin on admission was 11 Patient evaluated by Gynecology. Postmenopausal bleed attributed to uterine origin. Aygestin recommended to control acute bleeding. Will need endometrial sampling. Recommend endovaginal pelvic ultrasound to determine more clearly if the uterine lining is truly only 2 mm. Vaginal clot passage throughout the day. 1 unit packed RBC transfused when hemoglobin dropped to 9. Aygestin initiated as per gynecology recommendations.. 07/11/19 Made aware by RN of around 330 AM of patient hypotension, bradycardia, hypoxemia, transient unresponsiveness. Second unit packed RBC has been transfusing for about 20 minutes at time of event. SBP 70s, CR 30s later 90s, O2 sats 70s. Blood transfusion halted for possible transfusion reaction. IM epinephrine, Solu-Medrol, Benadryl given for possible anaphylactic reaction to blood product. SBP 80-90s, CR 90s, O2 sats 93 on 5 L post intervention. IV albumin given for hypotension given pulmonary congestion on x-ray. Patient currently feels a little better. Still complaining of abdominal discomfort and continuous vaginal clot passage. Lab work sent following transfusion reaction protocol. Repeat hemoglobin 6.6 from 7.7 last night prior to second unit PRBC transfusion. AP Hemorrhagic shock Ongoing uterine bleed on Aygestin Rx as per gynecology recommendations Possible transfusion reaction Additional blood product needs to be sourced from [facility] in [place], [place]. Group Captain service and prosthetics assistant alteration hand (Dr. Cruz) recommend transfer to tertiary care center given blood bank capability. Case discussed with Dr. Dillard ([facility] [place] laundry machine tender alteration hand) who has kindly accepted patient for transfer. Patient to transfer via [facility]. Patient and agreeable to plan of care.
[2019-07-11 06:36] LABS: Allen Test Pos (Pos)
[2019-07-11] MEDS ORDERED: OLANZAPINE 2.5 MG TAB PO STA (06:56)
[2019-07-11 07:19] LABS: Blood Urine 2+ (Negative)
--- NOTE | 2019-07-11 07:29 | XRay Report ---
XR chest 1V portable CLINICAL HISTORY: low o2 dyspnea COMPARISON STUDY: 07/09/2019 FINDINGS: Mild stable cardiomegaly. Slightly progressive left and to a lesser extent right basilar pa renchymal markings. Possibility of an inflammatory process is not excluded. Mid and upper lungs are c onsidered clear. IMPRESSION: Slightly progressive bibasilar parenchymal markings suggesting a probable superimposed i nfiltrative process. ACT 112: Negative or not required by law. The above report was generated using voice recognition software. It may contain grammatical, syntax or spelling errors. Electronically signed by: Blayne Harmon M.D. 07/11/2019 7:27 AM
[2019-07-11] MEDS ORDERED: FLUTICASONE FUROATE 100MCG 14 PUFFS/INHALER INH SCH (08:00)
[2019-07-11] MEDS ORDERED: FUROSEMIDE 40 MG TAB PO SCH (09:00)
== END 2019-07-11 07:46 | disposition short-term general hospital (02) | DRG 760 ==
LOC: ED 22:49 → SUATTDRO 07-10 06:04 → 2S 07-10 06:04

== ENCOUNTER 2019-10-24 11:19 | Inpatient (IN) ==
[2019-10-24] MEDS ORDERED: ALBUT/IPRATROP 3MG/0.5MG NEB 3 ML VIAL NEB ONE ×2 (11:32→11:36)
[2019-10-24 12:10] LABS: iSTAT Creatinine 0.7 mg/dl (0.6-1.3); iSTAT Hemoglobin 11.6 g/dl (12.0-16.0); iSTAT Ionized Calcium 1.15 mmol/l (1.12-1.32); iSTAT Potassium 3.6 mmol/L (3.3-5.0)
[2019-10-24 12:24] LABS: Base Excess VBG 9.1 mEq/L; INR 1.1 (0.9-1.1); Partial Thromboplastin Ratio 1.1; Partial Thromboplastin Time 29.3 Seconds (21.0-31.0); Prothrombin Time 11.4 Seconds (9.0-12.0); pH VBG 7.11 (7.36-7.41)
--- NOTE | 2019-10-24 12:29 | XRay Report ---
SINGLE VIEW CHEST CLINICAL HISTORY: Sepsis. FINDINGS: An AP, portable, upright chest radiograph is compared to study dated 07/11/2019 and correlat ed with chest CT dated 10/26/2018. The examination is degraded by portable technique, large body habit us, and patient rotation. The heart is enlarged. There is pulmonary vascular congestion with evidenc e of interstitial edema. There are layering pleural effusions with bibasilar consolidation. No pneumo thorax is seen. The skeletal structures are osteopenic. The bony thorax is grossly intact. IMPRESSION: 1. Cardiomegaly with evidence of congestive failure and interstitial edema. 2. Layering pleural effusions with bibasilar consolidation. ACT 112: Negative or not required by law. Electronically signed by: Luis Meraz M.D. 10/24/2019 12:28 PM
[2019-10-24 12:30] LABS: Basophils # (auto) 0.01 K/uL (0-0.2); Basophils % (auto) 0.1 %; Hematocrit (blood only) 41.2 % (37-47); Hemoglobin 10.9 g/dL (12.0-16.0); Immature Granulocytes # (auto) 0.18 K/uL (0.00-0.02); Immature Granulocytes % (auto) 1.9 %; Lymphocytes # (auto) 0.86 K/uL (1.2-3.4); Lymphocytes % (auto) 8.9 %; Mean Corpuscular Hemoglobin 24.5 pg (25-34); Mean Corpuscular Hgb Conc 26.5 g/dL (32-36); Mean Corpuscular Volume 92.6 fL (80-100); Mean Platelet Volume 11.3 fL (7.4-10.4); Monocytes # (auto) 0.66 K/uL (0.11-0.59); Monocytes % (auto) 6.8 %; Neutrophils # (auto) 7.87 K/uL (1.4-6.5); Neutrophils % (auto) 81.3 %; Platelet Count 121 K/uL (130-400); RDW Coefficient of Variation 20.1 % (11.5-14.5); RDW Standard Deviation 67.9 fL (36.4-46.3); Red Blood Count 4.45 M/uL (4.2-5.4); White Blood Count 9.68 K/uL (4.8-10.8)
[2019-10-24 12:32] LABS: Alanine Aminotransferase 15 U/L (12-78); Albumin Level 3.2 gm/dl (3.4-5.0); Aspartate Aminotransferase 14 U/L (15-37); BUN Creatinine Ratio 20.8 (10-20); Bilirubin Direct < 0.1 mg/dl (0-0.2); Blood Urea Nitrogen 17 mg/dl (7-18); Calcium 9.4 mg/dl (8.5-10.1); Carbon Dioxide 40 mmol/L (21-32); Chloride 101 mmol/L (98-107); Creatinine Clr Calc Pharmacy 102.1 ml/min; Est GFR (African American) 85.9; Est GFR (Non-African American) 74.1; Glucose 177 mg/dl (70-99); Magnesium 2.1 mg/dl (1.8-2.4); Potassium 3.6 mmol/L (3.5-5.1); Sodium 144 mmol/L (136-145)
[2019-10-24 12:40] LABS: Anisocytosis Present; Basophilic Stippling 1+; Hypochromasia Present; Polychromasia 1+; Stomatocytes 1+
[2019-10-24 12:42] LABS: Appearance Urine Turbid (Clear); Bacteria Urine Automated 4+ (Negative); Bilirubin Urine Negative (Negative); Blood Urine 2+ (Negative); Color Urine Yellow; Epithelial Cell Urine Auto >30 /lpf (0-5); Glucose Urine UA 3+ (Negative); Ketones Urine Negative (Negative); Leukocyte Esterase Urine 2+ (Negative); Nitrite Urine Positive (Negative); Protein Urine 2+ (Negative); RBC Urine Automated 0-4 /hpf (0-4); Specific Gravity Urine 1.016 (1.000-1.030); Urobilinogen Urine Negative (Negative); WBC Urine Automated >30 /hpf (0-5)
[2019-10-24 12:43] LABS: Albumin Globulin Ratio 0.8 (0.9-2); Alkaline Phosphatase 99 U/L (45-117); Bilirubin,Total 0.3 mg/dl (0.2-1); Globulin 4.2 gm/dl (2.5-4.0); NT Pro B Type Natriuretic Pept 1542 pg/ml (0-900); Phosphorus 3.7 mg/dl (2.5-4.9); Thyroid Stimulating Hormone 0.745 uIu/ml (0.300-4.500); Total Protein 7.4 gm/dl (6.4-8.2); Troponin I 0.015 ng/ml (0-0.045)
[2019-10-24] MEDS ORDERED: FUROSEMIDE 40 MG/4 ML VIAL IV STA (12:50)
--- NOTE | 2019-10-24 12:57 | Emergency Department Note ---
Impression & Plan Acute on chronic respiratory failure with hypoxia and hypercapnia, Acidemia, Obesity hypoventilation syndrome, Respiratory acidosis, Metabolic encephalopathy, CHF (congestive heart failure) ED Provider Note NAME: DAVID MAYO AGE: 68 SEX: F ARRIVES VIA: Ambulance INFORMANT: Patient, ED PROVIDER(S): Venkat Cox MD CHIEF COMPLAINT: Confusion, shortness of breath. PLAN: Disposition: Admit MEDICAL DECISION MAKING: The patient is a 68-year-old woman with a past medical history of chronic respiratory failure secondary to OHS on home oxygen, asthma/COPD, chronic diastolic heart failure, hypertension, diabetes, history of CVA, chronic anemia, mood disorder who presents emergency department from home after the family noticed she was more drowsy and would not respond found by EMS to be hypoxic in the 80s on her home oxygen placed on CPAP with improvement to upper 80s but still drowsy though would answer questions. On arrival the patient is acute on chronically ill-appearing, drowsy but will follow basic commands, she has diminished breath sounds at the bases with diffuse wheezes. The patient was placed on BiPAP upon arrival and given continuous DuoNeb given presentation consistent with hypercapnic respiratory failure in the setting of her history. Patient's oxygenation did improve saturating mid 90s on 50% FiO2. The patient's VBG did confirm suspicion for hypercapnic respiratory failure with PCO2 of 136 and pH of 7.1. Chemistry with out acidosis. Bicarb 40 consistent with component of chronic hypercapnia. Electrolytes and LFTs unremarkable. Troponin negative. BNP elevated at 1500 new from prior. EKG without overt acute ischemia. CXR with interstitial edema and bibasilar consolidation. Upon reevaluation the patient was improved appearing with resolved work of breathing and more alert with voice, though still somewhat drowsy. Case was discussed with Irene Phillips, with Irene Wu hospitalist who will evaluate the patient for admission. Covid19 ordered and was negative. Will defer decision for abx to admitting team. Triage Nursing notes reviewed and agree them. Prior medical records reviewed Vital Signs: reviewed and remarkable for no significant abnormalities Differential diagnosis: Infection, dehydration, metabolic abnormality, hypo/hyperglycemia, electrolyte disturbance, anemia, hypoxia, cardiac sources, intracerebral event, toxicologic, neurologic, as well as other pathologies. ER treatment provided: See below. Diagnostics interpreted by me: ECG: NSR, 96 bpm, no ectopy, non specific ST and TW abnormality, no overt ST elevation or depression. Cardiac Monitoring: An order for continuous cardiac monitoring was placed and demonstrated NSR, 96 bpm, no ectopy Laboratory studies: See below Imaging studies: SINGLE VIEW CHEST CLINICAL HISTORY: Sepsis. FINDINGS: An AP, portable, upright chest radiograph is compared to study dated 07/11/2019 and correlated with chest CT dated 10/26/2018. The examination is degraded by portable technique, large body habitus, and patient rotation. The heart is enlarged. There is pulmonary vascular congestion with evidence of interstitial edema. There are layering pleural effusions with bibasilar consolidation. No pneumothorax is seen. The skeletal structures are osteopenic. The bony thorax is grossly intact. IMPRESSION: 1. Cardiomegaly with evidence of congestive failure and interstitial edema. 2. Layering pleural effusions with bibasilar consolidation. -- CT head/brain wo con CLINICAL HISTORY: 68 years-old Female with ams. Acutely altered mental status TECHNIQUE: Multiple axial CT images of the head were obtained without contrast. A dose lowering technique was utilized adhering to the principles of ALARA. CT DOSE: 1400.53 mGy.cm COMPARISON: Head CT 10/26/2018 FINDINGS: Motion degraded exam. Remote lacunar infarct of the left thalamus with unchanged probable perivascular space within the left anterior commissure distribution on image 14 series 2. Minimal patchy white matter hypodensities are suggestive of probable chronic microvascular ischemic disease. No acute intracranial hemorrhage, midline shift, intracranial mass, hydrocephalus, territorial ischemia or abnormal extra-axial collection. The calvarium is intact. Left mastoid air cells are clear. Large right mastoid effusion is unchanged. Fluid is also within the right middle ear cavity. Soft tissues and orbits are unremarkable. IMPRESSION: 1. Motion degraded exam without acute intracranial abnormality identified. 2. Unchanged large right mastoid effusion. Consultation(s): Case was discussed with Irene Phillips, with Irene Wu hospitalist who will evaluate the patient for admission. HPI: The patient is a 68-year-old woman with a past medical history of chronic respiratory failure secondary to OHS on home oxygen, asthma/COPD, chronic diastolic heart failure, hypertension, diabetes, history of CVA, chronic anemia, mood disorder who presents emergency department from home after the family noticed she was more drowsy and would not respond found by EMS to be hypoxic in the 80s on her home oxygen placed on CPAP with improvement to upper 80s but still drowsy though would answer questions. ROS: See above HPI for pertinent positives & negatives. A total of 10 systems reviewed and were otherwise negative. PAST MEDICAL HISTORY:See Below PAST SURGICAL HISTORY:See Below FAMILY HISTORY:See Below SOCIAL HISTORY:See Below HOME MEDICATIONS:See Below ALLERGIES:See Below VITALS:See Below PHYSICAL EXAMINATION: GENERAL: Awake, alert to voice but drowsy, ill-appearing, in no distress HENT: Normocephalic, atraumatic. Oropharynx unremarkable. EYES: Normal conjunctiva. Sclera non-icteric. NECK: Supple. No nuchal rigidity. FROM. No JVD. RESPIRATORY: Diminished BS at bases with diffuse wheezes. Moderate increased WOB (improving on Bipap). CARDIAC: Regular rate, normal rhythm. Extremities warm and well perfused. Pulses equal. ABDOMEN: Soft, non-distended. No tenderness to palpation. No rebound or guarding. No masses. RECTAL: Deferred. MUSCULOSKELETAL: Chest examination reveals no tenderness. The back is symmetrical on inspection without obvious abnormality. There is no CVA tenderness to palpation. No joint edema. LOWER EXTREMITIES: Calves are equal size bilaterally and non-tender. 2+ BLE edema. No discoloration. NEURO: Normal sensorium. No sensory or motor deficits noted. SKIN: No rash or jaundice noted. ED COURSE: Critical Care: I have personally spent greater than 85 minutes of critical care time in the direct management of this patient. This includes bedside care, interpretation of diagnostic studies, and testing, discussion with consultants, patient, and family members, and other required patient management activities. This 85 minutes is in excess of all separately billable procedures. Venkat Cox MD Past Med/Surg History Medical History Cerebrovascular disease "history left thalamic stroke" Chronic hypercapnic respiratory failure Chronic pain disorder (01/24/14) COPD (chronic obstructive pulmonary disease) CVA (cerebral vascular accident) hx of L thalamus CVA Diabetes mellitus, type II Dyslipidemia HLD (hyperlipidemia) Hypertension Hypertension Hypertrophic cardiomyopathy Hypothyroidism Morbid obesity Obesity hypoventilation syndrome JOSE (obstructive sleep apnea) Recurrent UTI Surgical History H/O partial nephrectomy History of tonsillectomy Hx of nasal septoplasty S/P dilatation and curettage Status post tonsillectomy Family History Father Coronary heart disease Mother Diabetes Social History Smoking Status: Unknown if ever smoked Second Hand Exposure: No; Preferred Language: Spanish Communication Ability: Impaired Court Crier Required: No Beliefs That Will Affect Care: None marital status: Current Living Situation: Spouse Current Living Situation Comment: living at home with Other Information That Helps Us Care for You: No Feels Safe at Home: Yes Allergies Allergies Allergy/AdvReac Type Severity Reaction Status Date / Time fluoxetine Allergy Severe ANAPHYLAXIS Verified 07/10/19 00:35 Insulins Allergy Severe LANTUS/LEVEMIR- Verified 07/10/19 00:35 HIVES/THROAT SWELLING moxifloxacin Allergy Severe HIVES Verified 07/10/19 00:35 nitrofurantoin Allergy Severe HIVES Verified 07/10/19 00:35 paroxetine Allergy Severe HIVES Verified 07/10/19 00:35 Quinolones Allergy Severe AVELOX & Verified 07/10/19 00:35 LEVAQUIN-HIVES amitriptyline Allergy Intermediate Sweats and Verified 07/10/19 00:35 itching buspirone Allergy Intermediate HIVES Verified 07/10/19 00:35 cephalexin Allergy Intermediate Hives Verified 07/10/19 00:35 citalopram Allergy Intermediate HIVES-RASH Verified 07/10/19 00:35 escitalopram Allergy Intermediate HIVES-RASH Verified 07/10/19 00:35 levofloxacin Allergy Intermediate Hives Verified 07/10/19 00:35 methadone Allergy Intermediate HIVES Verified 07/10/19 00:35 Penicillins Allergy Intermediate RASH,HIVES Verified 07/10/19 00:35 Serotonin 5HT-3 Antagonists Allergy Intermediate MIGRAINES Verified 07/10/19 00:35 TO SSRIs trazodone Allergy Intermediate BLOODY Verified 07/10/19 00:35 NOSE, HEADACHES,HIVES vancomycin Allergy Intermediate HIVES Verified 07/10/19 00:35 prednisone Allergy Mild CHEST Verified 07/10/19 00:35 TIGHTNESS carbamazepine Allergy Unknown HIVES-RASH- Verified 05/26/20 00:35 ITCHINESS cefepime Allergy Unknown face & arm Verified 07/10/19 00:35 redness/itching after 2nd or 3rd dose cefepime ceftriaxone Allergy Unknown Received Verified 07/10/19 00:35 in [facility] (but needed benadryl for course of therapy Cipro Allergy Unknown ABD PAINS Verified 09/08/17 09:10 ciprofloxacin Allergy Unknown ABD PAINS Verified 07/10/19 00:35 sertraline Allergy Unknown UNKNOWN Verified 07/10/19 00:35 sitagliptin Allergy Unknown HIVES Verified 07/10/19 00:35 azithromycin Allergy Hives Verified 07/10/19 00:35 Cephalosporins Allergy Hives Verified 07/10/19 00:35 metformin [[facility]] Allergy Unknown Verified 07/10/19 00:35 Tetracyclines AdvReac Severe HIVES Verified 07/10/19 00:35 Sulfa (Sulfonamide AdvReac Intermediate MIGRAINES Verified 07/10/19 00:35 Antibiotics) fexofenadine AdvReac Mild GI SYMPTOMS Verified 07/10/19 00:35 tizanidine AdvReac Mild ITCHING-HIV Verified 07/10/19 00:35 ES gentamicin AdvReac Unknown UNKNOWN Verified 07/10/19 00:35 lorazepam AdvReac Unknown Verified 07/10/19 00:35 Home Meds Home Medications Medication Instructions Recorded Confirmed baclofen 5 mg PO HS 10/24/19 10/24/19 celecoxib [Celebrex] 200 mg PO DAILY PRN 10/24/19 10/24/19 cyanocobalamin (vitamin B-12) 1,000 mcg PO DAILY 10/24/19 10/24/19 [Vitamin B-12] duloxetine 30 mg PO BID 10/24/19 10/24/19 cyxxshwzfut-ppbolqocp-bzxsdplz 1 inh INHALATION DAILY 10/24/19 10/24/19 [Trelegy Ellipta] furosemide 40 mg PO DAILY PRN 10/24/19 10/24/19 insulin degludec [Tresiba 67 unit SUBCUT UD 10/24/19 10/24/19 FlexTouch U-200] insulin regular human [Novolin R 0 unit SUBCUT UD 10/24/19 10/24/19 Regular U-100 Insuln] levothyroxine 100 mcg PO DAILYBB 10/24/19 10/24/19 metformin 2,000 mg PO DAILY 10/24/19 10/24/19 metoprolol succinate 25 mg PO DAILY 10/24/19 10/24/19 montelukast 10 mg PO HS 10/24/19 10/24/19 nortriptyline 10 mg PO HS 10/24/19 10/24/19 nystatin [Nyamyc] 1 applic TOPICAL TID 10/24/19 10/24/19 pantoprazole 40 mg PO DAILYBB 10/24/19 10/24/19 pregabalin 200 mg PO TID 10/24/19 10/24/19 simvastatin 20 mg PO HS 10/24/19 10/24/19 sumatriptan succinate 100 mg PO UD 10/24/19 10/24/19 ursodiol 600 mg PO BID 10/24/19 10/24/19 Results & Data (ED) Vital Signs Vital Signs - 24 hr 10/24/19 11:25 10/24/19 11:27 10/24/19 11:29 Temperature 37.0 C Temperature Source Oral Pulse Rate 96 H 95 H 96 H Pulse Rate [Apical] Pulse Rate from SpO2 Sensor 96 H 96 H Respiratory Rate 21 24 28 H Respiratory Effort / Characteristics Labored Blood Pressure 174/79 H 177/71 H Blood Pressure Mean 103 106 Pulse Oximetry 98 97 96 Oxygen Delivery Method BiPAP BiPAP BiPAP Oxygen Flow Rate 5 Fraction of Inspired Oxygen 50 Sepsis Recent Fever Within 48 Hours No Sepsis New/Unexplained Change in Mental Status No Sepsis Action Taken by Nursing No Action Required Pulse Oximetry Post Tiitration 10/24/19 11:30 10/24/19 11:35 10/24/19 11:36 Temperature Temperature Source Pulse Rate 95 H 95 H 96 H Pulse Rate [Apical] Pulse Rate from SpO2 Sensor 95 H 95 H Respiratory Rate 32 H 29 H 25 H Respiratory Effort / Characteristics Spontaneous Blood Pressure 177/71 H 175/63 H Blood Pressure Mean 97 82 Pulse Oximetry 96 97 96 Oxygen Delivery Method BiPAP BiPAP Oxygen Flow Rate 4 Fraction of Inspired Oxygen 50 50 50 Sepsis Recent Fever Within 48 Hours Sepsis New/Unexplained Change in Mental Status Sepsis Action Taken by Nursing Pulse Oximetry Post Tiitration 97 10/24/19 11:37 10/24/19 11:38 10/24/19 11:40 Temperature Temperature Source Pulse Rate 96 H Pulse Rate [Apical] 96 H Pulse Rate from SpO2 Sensor 96 H Respiratory Rate 25 H 32 H Respiratory Effort / Characteristics Spontaneous Blood Pressure 173/69 H Blood Pressure Mean 98 Pulse Oximetry 96 97 97 Oxygen Delivery Method BiPAP BiPAP BiPAP Oxygen Flow Rate Fraction of Inspired Oxygen 50 50 Sepsis Recent Fever Within 48 Hours Sepsis New/Unexplained Change in Mental Status Sepsis Action Taken by Nursing Pulse Oximetry Post Tiitration 10/24/19 11:45 10/24/19 11:50 10/24/19 11:55 Temperature Temperature Source Pulse Rate 96 H 98 H 95 H Pulse Rate [Apical] Pulse Rate from SpO2 Sensor 96 H 95 H 95 H Respiratory Rate 29 H 34 H 30 H Respiratory Effort / Characteristics Blood Pressure 196/119 H Blood Pressure Mean 143 Pulse Oximetry 95 96 96 Oxygen Delivery Method BiPAP BiPAP BiPAP Oxygen Flow Rate Fraction of Inspired Oxygen Sepsis Recent Fever Within 48 Hours Sepsis New/Unexplained Change in Mental Status Sepsis Action Taken by Nursing Pulse Oximetry Post Tiitration 10/24/19 11:56 10/24/19 12:00 10/24/19 12:01 Temperature Temperature Source Pulse Rate 98 H 99 H 96 H Pulse Rate [Apical] Pulse Rate from SpO2 Sensor 98 H 99 H 96 H Respiratory Rate 31 H 32 H 34 H Respiratory Effort / Characteristics Blood Pressure 191/72 H Blood Pressure Mean 107 Pulse Oximetry 96 96 95 Oxygen Delivery Method BiPAP BiPAP BiPAP Oxygen Flow Rate Fraction of Inspired Oxygen Sepsis Recent Fever Within 48 Hours Sepsis New/Unexplained Change in Mental Status Sepsis Action Taken by Nursing Pulse Oximetry Post Tiitration 10/24/19 12:05 10/24/19 12:06 10/24/19 12:11 Temperature Temperature Source Pulse Rate 97 H 101 H 97 H Pulse Rate [Apical] Pulse Rate from SpO2 Sensor 97 H 101 H 94 H Respiratory Rate 30 H 21 33 H Respiratory Effort / Characteristics Blood Pressure 193/60 H 198/75 H Blood Pressure Mean 145 124 Pulse Oximetry 96 96 96 Oxygen Delivery Method BiPAP BiPAP BiPAP Oxygen Flow Rate Fraction of Inspired Oxygen Sepsis Recent Fever Within 48 Hours Sepsis New/Unexplained Change in Mental Status Sepsis Action Taken by Nursing Pulse Oximetry Post Tiitration 10/24/19 12:16 10/24/19 12:21 10/24/19 12:26 Temperature Temperature Source Pulse Rate 97 H 97 H 98 H Pulse Rate [Apical] Pulse Rate from SpO2 Sensor 97 H 95 H 98 H Respiratory Rate 29 H 31 H 31 H Respiratory Effort / Characteristics Blood Pressure 201/70 H 170/65 H 187/67 H Blood Pressure Mean 119 87 110 Pulse Oximetry 96 95 96 Oxygen Delivery Method Oxygen Flow Rate Fraction of Inspired Oxygen Sepsis Recent Fever Within 48 Hours Sepsis New/Unexplained Change in Mental Status Sepsis Action Taken by Nursing Pulse Oximetry Post Tiitration 10/24/19 12:31 10/24/19 12:32 10/24/19 12:36 Temperature Temperature Source Pulse Rate 94 H 95 H Pulse Rate [Apical] Pulse Rate from SpO2 Sensor 94 H 96 H Respiratory Rate 30 H 33 H Respiratory Effort / Characteristics Blood Pressure 181/71 H 184/68 H Blood Pressure Mean 100 113 Pulse Oximetry 96 97 Oxygen Delivery Method BiPAP Oxygen Flow Rate Fraction of Inspired Oxygen Sepsis Recent Fever Within 48 Hours Sepsis New/Unexplained Change in Mental Status Sepsis Action Taken by Nursing Pulse Oximetry Post Tiitration 10/24/19 12:56 10/24/19 13:00 10/24/19 13:01 Temperature Temperature Source Pulse Rate 95 H 94 H Pulse Rate [Apical] Pulse Rate from SpO2 Sensor 95 H 95 H Respiratory Rate 30 H 26 H Respiratory Effort / Characteristics Blood Pressure 185/67 H 167/59 H Blood Pressure Mean 106 117 Pulse Oximetry 92 92 92 Oxygen Delivery Method BiPAP Oxygen Flow Rate Fraction of Inspired Oxygen Sepsis Recent Fever Within 48 Hours Sepsis New/Unexplained Change in Mental Status Sepsis Action Taken by Nursing Pulse Oximetry Post Tiitration 10/24/19 13:03 10/24/19 13:16 10/24/19 13:31 Temperature Temperature Source Pulse Rate 93 H 91 H 90 Pulse Rate [Apical] Pulse Rate from SpO2 Sensor 93 H 90 90 Respiratory Rate 28 H 26 H 23 Respiratory Effort / Characteristics Blood Pressure 164/62 H 162/60 H 171/66 H Blood Pressure Mean 100 94 92 Pulse Oximetry 93 96 97 Oxygen Delivery Method Oxygen Flow Rate Fraction of Inspired Oxygen Sepsis Recent Fever Within 48 Hours Sepsis New/Unexplained Change in Mental Status Sepsis Action Taken by Nursing Pulse Oximetry Post Tiitration 10/24/19 13:32 10/24/19 13:45 10/24/19 13:46 Temperature Temperature Source Pulse Rate 90 88 88 Pulse Rate [Apical] Pulse Rate from SpO2 Sensor 90 89 88 Respiratory Rate 24 24 25 H Respiratory Effort / Characteristics Blood Pressure 164/60 H Blood Pressure Mean 94 Pulse Oximetry 97 96 96 Oxygen Delivery Method BiPAP Oxygen Flow Rate Fraction of Inspired Oxygen Sepsis Recent Fever Within 48 Hours Sepsis New/Unexplained Change in Mental Status Sepsis Action Taken by Nursing Pulse Oximetry Post Tiitration Laboratory Data Attestation: I reviewed the patient's lab results. Result diagrams: 10/24/19 11:56 10/24/19 11:56 Lab Results 10/24/19 10/24/19 10/24/19 Range/Units 11:43 11:56 11:56 WBC 9.68 (4.8-10.8) K/uL RBC 4.45 (4.2-5.4) M/uL Hgb 10.9 L (12.0-16.0) g/dL POC Hgb 11.6 L (12.0-16.0) g/dl Hct 41.2 (37-47) % POC Hct 34 L (37-47) % MCV 92.6 (80-100) fL MCH 24.5 L (25-34) pg MCHC 26.5 L (32-36) g/dL RDW Std Deviation 67.9 H (36.4-46.3) fL RDW Coeff of Duy 20.1 H (11.5-14.5) % Plt Count 121 L (130-400) K/uL MPV 11.3 H (7.4-10.4) fL Immature Gran % (Auto) 1.9 % Neut % (Auto) 81.3 % Lymph % (Auto) 8.9 % [place] % (Auto) 6.8 % Eos % (Auto) 1.0 % Baso % (Auto) 0.1 % Neut # (Auto) 7.87 H (1.4-6.5) K/uL Lymph # (Auto) 0.86 L (1.2-3.4) K/uL [place] # (Auto) 0.66 H (0.11-0.59) K/uL Eos # (Auto) 0.10 (0-0.5) K/uL Baso # (Auto) 0.01 (0-0.2) K/uL Immature Gran # (Auto) 0.18 H (0.00-0.02) K/uL Polychromasia 1+ Hypochromasia Present Basophilic Stippling 1+ Anisocytosis Present Stomatocytes 1+ PT 11.4 (9.0-12.0) Seconds INR 1.1 (0.9-1.1) APTT 29.3 (21.0-31.0) Seconds PTT Ratio 1.1 ABG pH (7.35-7.45) ABG pCO2 (35-46) mmHg ABG pO2 (80-95) mmHg ABG HCO3 (19-24) mmol/L ABG O2 Saturation (90-95) % ABG Base Excess (-9-1.8) mEq/L Bill Test (Pos) VBG pH (7.36-7.41) VBG pCO2 (38-50) mmHg VBG pO2 mmHg VBG HCO3 mmol/L VBG O2 Saturation % VBG Base Excess mEq/L Barometric Pressure mm/Hg Oxygen Given POC Sodium 145 H (135-144) mmol/L Sodium (136-145) mmol/L POC Potassium 3.6 (3.3-5.0) mmol/L Potassium (3.5-5.1) mmol/L POC Chloride 101 (101-112) mmol/L Chloride (98-107) mmol/L Carbon Dioxide (21-32) mmol/L POC Total CO2 35 H (24-31) mmol/L Anion Gap (3-11) POC Anion Gap 14.0 L (16-25) mmol/L POC BUN 21 H (7-18) mg/dl BUN (7-18) mg/dl Creatinine (0.6-1.2) mg/dl POC Creatinine 0.7 (0.6-1.3) mg/dl Est Cr Clr Drug Dosing ml/min Est GFR ( Amer) Est GFR (Non-Af Amer) BUN/Creatinine Ratio (10-20) Glucose (70-99) mg/dl POC Glucose (other) 172 H (70-99) mg/dl Lactate (0.4-2.0) mmol/L Calcium (8.5-10.1) mg/dl POC Ioniz Calcium [place] 1.15 (1.12-1.32) mmol/l Phosphorus (2.5-4.9) mg/dl Magnesium (1.8-2.4) mg/dl Total Bilirubin (0.2-1) mg/dl Direct Bilirubin (0-0.2) mg/dl AST (15-37) U/L ALT (12-78) U/L Alkaline Phosphatase (45-117) U/L Ammonia (11-32) umol/L Troponin I (0-0.045) ng/ml NT-Pro-B Natriuret Pep (0-900) pg/ml Total Protein (6.4-8.2) gm/dl Albumin (3.4-5.0) gm/dl Globulin (2.5-4.0) gm/dl Albumin/Globulin Ratio (0.9-2) Procalcitonin (0-0.5) ng/ml TSH (0.300-4.500) uIu/ml Urine Color Urine Appearance (Clear) Urine pH (4.5-7.5) Ur Specific [place] (1.000-1.030) Urine Protein (Negative) Urine Glucose (UA) (Negative) Urine Ketones (Negative) Urine Blood (Negative) Urine Nitrite (Negative) Urine Bilirubin (Negative) Urine Urobilinogen (Negative) Ur Leukocyte Esterase (Negative) Urine WBC (Auto) (0-5) /hpf Urine RBC (Auto) (0-4) /hpf U Hyaline Cast (Auto) (0-5) /lpf U Epithel Cells (Auto) (0-5) /lpf Urine Bacteria (Auto) (Negative) Granular Casts (0) /lpf COVID-19 Eval Order COVID-19 PCR (Negative) 10/24/19 10/24/19 10/24/19 Range/Units 11:56 11:56 11:56 WBC (4.8-10.8) K/uL RBC (4.2-5.4) M/uL Hgb (12.0-16.0) g/dL POC Hgb (12.0-16.0) g/dl Hct (37-47) % POC Hct (37-47) % MCV (80-100) fL MCH (25-34) pg MCHC (32-36) g/dL RDW Std Deviation (36.4-46.3) fL RDW Coeff of Duy (11.5-14.5) % Plt Count (130-400) K/uL MPV (7.4-10.4) fL Immature Gran % (Auto) % Neut % (Auto) % Lymph % (Auto) % [place] % (Auto) % Eos % (Auto) % Baso % (Auto) % Neut # (Auto) (1.4-6.5) K/uL Lymph # (Auto) (1.2-3.4) K/uL [place] # (Auto) (0.11-0.59) K/uL Eos # (Auto) (0-0.5) K/uL Baso # (Auto) (0-0.2) K/uL Immature Gran # (Auto) (0.00-0.02) K/uL Polychromasia Hypochromasia Basophilic Stippling Anisocytosis Stomatocytes PT (9.0-12.0) Seconds INR (0.9-1.1) APTT (21.0-31.0) Seconds PTT Ratio ABG pH (7.35-7.45) ABG pCO2 (35-46) mmHg ABG pO2 (80-95) mmHg ABG HCO3 (19-24) mmol/L ABG O2 Saturation (90-95) % ABG Base Excess (-9-1.8) mEq/L Bill Test (Pos) VBG pH (7.36-7.41) VBG pCO2 (38-50) mmHg VBG pO2 mmHg VBG HCO3 mmol/L VBG O2 Saturation % VBG Base Excess mEq/L Barometric Pressure mm/Hg Oxygen Given POC Sodium (135-144) mmol/L Sodium 144 (136-145) mmol/L POC Potassium (3.3-5.0) mmol/L Potassium 3.6 (3.5-5.1) mmol/L POC Chloride (101-112) mmol/L Chloride 101 (98-107) mmol/L Carbon Dioxide 40 H (21-32) mmol/L POC Total CO2 (24-31) mmol/L Anion Gap 2.0 L (3-11) POC Anion Gap (16-25) mmol/L POC BUN (7-18) mg/dl BUN 17 (7-18) mg/dl Creatinine 0.81 (0.6-1.2) mg/dl POC Creatinine (0.6-1.3) mg/dl Est Cr Clr Drug Dosing 102.1 ml/min Est GFR ( Amer) 85.9 Est GFR (Non-Af Amer) 74.1 BUN/Creatinine Ratio 20.8 H (10-20) Glucose 177 H (70-99) mg/dl POC Glucose (other) (70-99) mg/dl Lactate 1.2 (0.4-2.0) mmol/L Calcium 9.4 (8.5-10.1) mg/dl POC Ioniz Calcium [place] (1.12-1.32) mmol/l Phosphorus 3.7 (2.5-4.9) mg/dl Magnesium 2.1 (1.8-2.4) mg/dl Total Bilirubin 0.3 (0.2-1) mg/dl Direct Bilirubin < 0.1 (0-0.2) mg/dl AST 14 L (15-37) U/L ALT 15 (12-78) U/L Alkaline Phosphatase 99 (45-117) U/L Ammonia (11-32) umol/L Troponin I 0.015 (0-0.045) ng/ml NT-Pro-B Natriuret Pep 1542 H (0-900) pg/ml Total Protein 7.4 (6.4-8.2) gm/dl Albumin 3.2 L (3.4-5.0) gm/dl Globulin 4.2 H (2.5-4.0) gm/dl Albumin/Globulin Ratio 0.8 L (0.9-2) Procalcitonin 0.33 (0-0.5) ng/ml TSH 0.745 (0.300-4.500) uIu/ml Urine Color Urine Appearance (Clear) Urine pH (4.5-7.5) Ur Specific [place] (1.000-1.030) Urine Protein (Negative) Urine Glucose (UA) (Negative) Urine Ketones (Negative) Urine Blood (Negative) Urine Nitrite (Negative) Urine Bilirubin (Negative) Urine Urobilinogen (Negative) Ur Leukocyte Esterase (Negative) Urine WBC (Auto) (0-5) /hpf Urine RBC (Auto) (0-4) /hpf U Hyaline Cast (Auto) (0-5) /lpf U Epithel Cells (Auto) (0-5) /lpf Urine Bacteria (Auto) (Negative) Granular Casts (0) /lpf COVID-19 Eval Order COVID-19 PCR (Negative) 10/24/19 10/24/19 10/24/19 Range/Units 11:56 11:56 12:25 WBC (4.8-10.8) K/uL RBC (4.2-5.4) M/uL Hgb (12.0-16.0) g/dL POC Hgb (12.0-16.0) g/dl Hct (37-47) % POC Hct (37-47) % MCV (80-100) fL MCH (25-34) pg MCHC (32-36) g/dL RDW Std Deviation (36.4-46.3) fL RDW Coeff of Duy (11.5-14.5) % Plt Count (130-400) K/uL MPV (7.4-10.4) fL Immature Gran % (Auto) % Neut % (Auto) % Lymph % (Auto) % [place] % (Auto) % Eos % (Auto) % Baso % (Auto) % Neut # (Auto) (1.4-6.5) K/uL Lymph # (Auto) (1.2-3.4) K/uL [place] # (Auto) (0.11-0.59) K/uL Eos # (Auto) (0-0.5) K/uL Baso # (Auto) (0-0.2) K/uL Immature Gran # (Auto) (0.00-0.02) K/uL Polychromasia Hypochromasia Basophilic Stippling Anisocytosis Stomatocytes PT (9.0-12.0) Seconds INR (0.9-1.1) APTT (21.0-31.0) Seconds PTT Ratio ABG pH (7.35-7.45) ABG pCO2 (35-46) mmHg ABG pO2 (80-95) mmHg ABG HCO3 (19-24) mmol/L ABG O2 Saturation (90-95) % ABG Base Excess (-9-1.8) mEq/L Bill Test (Pos) VBG pH 7.11 L (7.36-7.41) VBG pCO2 136 H (38-50) mmHg VBG pO2 97 mmHg VBG HCO3 43 mmol/L VBG O2 Saturation 95.0 % VBG Base Excess 9.1 mEq/L Barometric Pressure 739.1 mm/Hg Oxygen Given POC Sodium (135-144) mmol/L Sodium (136-145) mmol/L POC Potassium (3.3-5.0) mmol/L Potassium (3.5-5.1) mmol/L POC Chloride (101-112) mmol/L Chloride (98-107) mmol/L Carbon Dioxide (21-32) mmol/L POC Total CO2 (24-31) mmol/L Anion Gap (3-11) POC Anion Gap (16-25) mmol/L POC BUN (7-18) mg/dl BUN (7-18) mg/dl Creatinine (0.6-1.2) mg/dl POC Creatinine (0.6-1.3) mg/dl Est Cr Clr Drug Dosing ml/min Est GFR ( Amer) Est GFR (Non-Af Amer) BUN/Creatinine Ratio (10-20) Glucose (70-99) mg/dl POC Glucose (other) (70-99) mg/dl Lactate (0.4-2.0) mmol/L Calcium (8.5-10.1) mg/dl POC Ioniz Calcium [place] (1.12-1.32) mmol/l Phosphorus (2.5-4.9) mg/dl Magnesium (1.8-2.4) mg/dl Total Bilirubin (0.2-1) mg/dl Direct Bilirubin (0-0.2) mg/dl AST (15-37) U/L ALT (12-78) U/L Alkaline Phosphatase (45-117) U/L Ammonia 46.0 H (11-32) umol/L Troponin I (0-0.045) ng/ml NT-Pro-B Natriuret Pep (0-900) pg/ml Total Protein (6.4-8.2) gm/dl Albumin (3.4-5.0) gm/dl Globulin (2.5-4.0) gm/dl Albumin/Globulin Ratio (0.9-2) Procalcitonin (0-0.5) ng/ml TSH (0.300-4.500) uIu/ml Urine Color Yellow Urine Appearance Turbid A (Clear) Urine pH 5.0 (4.5-7.5) Ur Specific [place] 1.016 (1.000-1.030) Urine Protein 2+ H (Negative) Urine Glucose (UA) 3+ H (Negative) Urine Ketones Negative (Negative) Urine Blood 2+ H (Negative) Urine Nitrite Positive A (Negative) Urine Bilirubin Negative (Negative) Urine Urobilinogen Negative (Negative) Ur Leukocyte Esterase 2+ H (Negative) Urine WBC (Auto) >30 H (0-5) /hpf Urine RBC (Auto) 0-4 (0-4) /hpf U Hyaline Cast (Auto) 10-30 H (0-5) /lpf U Epithel Cells (Auto) >30 H (0-5) /lpf Urine Bacteria (Auto) 4+ H (Negative) Granular Casts 1-5 H (0) /lpf COVID-19 Eval Order COVID-19 PCR (Negative) 10/24/19 10/24/19 10/24/19 Range/Units 13:20 13:20 13:42 WBC (4.8-10.8) K/uL RBC (4.2-5.4) M/uL Hgb (12.0-16.0) g/dL POC Hgb (12.0-16.0) g/dl Hct (37-47) % POC Hct (37-47) % MCV (80-100) fL MCH (25-34) pg MCHC (32-36) g/dL RDW Std Deviation (36.4-46.3) fL RDW Coeff of Duy (11.5-14.5) % Plt Count (130-400) K/uL MPV (7.4-10.4) fL Immature Gran % (Auto) % Neut % (Auto) % Lymph % (Auto) % [place] % (Auto) % Eos % (Auto) % Baso % (Auto) % Neut # (Auto) (1.4-6.5) K/uL Lymph # (Auto) (1.2-3.4) K/uL [place] # (Auto) (0.11-0.59) K/uL Eos # (Auto) (0-0.5) K/uL Baso # (Auto) (0-0.2) K/uL Immature Gran # (Auto) (0.00-0.02) K/uL Polychromasia Hypochromasia Basophilic Stippling Anisocytosis Stomatocytes PT (9.0-12.0) Seconds INR (0.9-1.1) APTT (21.0-31.0) Seconds PTT Ratio ABG pH 7.20 L (7.35-7.45) ABG pCO2 106 H (35-46) mmHg ABG pO2 74 L (80-95) mmHg ABG HCO3 41 H (19-24) mmol/L ABG O2 Saturation 92.9 (90-95) % ABG Base Excess 9.8 H (-9-1.8) mEq/L Bill Test Pos (Pos) VBG pH (7.36-7.41) VBG pCO2 (38-50) mmHg VBG pO2 mmHg VBG HCO3 mmol/L VBG O2 Saturation % VBG Base Excess mEq/L Barometric Pressure 738.7 mm/Hg Oxygen Given 50% FIO2 POC Sodium (135-144) mmol/L Sodium (136-145) mmol/L POC Potassium (3.3-5.0) mmol/L Potassium (3.5-5.1) mmol/L POC Chloride (101-112) mmol/L Chloride (98-107) mmol/L Carbon Dioxide (21-32) mmol/L POC Total CO2 (24-31) mmol/L Anion Gap (3-11) POC Anion Gap (16-25) mmol/L POC BUN (7-18) mg/dl BUN (7-18) mg/dl Creatinine (0.6-1.2) mg/dl POC Creatinine (0.6-1.3) mg/dl Est Cr Clr Drug Dosing ml/min Est GFR ( Amer) Est GFR (Non-Af Amer) BUN/Creatinine Ratio (10-20) Glucose (70-99) mg/dl POC Glucose (other) (70-99) mg/dl Lactate (0.4-2.0) mmol/L Calcium (8.5-10.1) mg/dl POC Ioniz Calcium [place] (1.12-1.32) mmol/l Phosphorus (2.5-4.9) mg/dl Magnesium (1.8-2.4) mg/dl Total Bilirubin (0.2-1) mg/dl Direct Bilirubin (0-0.2) mg/dl AST (15-37) U/L ALT (12-78) U/L Alkaline Phosphatase (45-117) U/L Ammonia (11-32) umol/L Troponin I (0-0.045) ng/ml NT-Pro-B Natriuret Pep (0-900) pg/ml Total Protein (6.4-8.2) gm/dl Albumin (3.4-5.0) gm/dl Globulin (2.5-4.0) gm/dl Albumin/Globulin Ratio (0.9-2) Procalcitonin (0-0.5) ng/ml TSH (0.300-4.500) uIu/ml Urine Color Urine Appearance (Clear) Urine pH (4.5-7.5) Ur Specific [place] (1.000-1.030) Urine Protein (Negative) Urine Glucose (UA) (Negative) Urine Ketones (Negative) Urine Blood (Negative) Urine Nitrite (Negative) Urine Bilirubin (Negative) Urine Urobilinogen (Negative) Ur Leukocyte Esterase (Negative) Urine WBC (Auto) (0-5) /hpf Urine RBC (Auto) (0-4) /hpf U Hyaline Cast (Auto) (0-5) /lpf U Epithel Cells (Auto) (0-5) /lpf Urine Bacteria (Auto) (Negative) Granular Casts (0) /lpf COVID-19 Eval Order Covid19 Done at [facility] COVID-19 PCR NEGATIVE (Negative) Administered Medications Albuterol (Albut/Ipratrop 3mg/0.5mg Neb 3 Ml Vial) 3 ml NEB Q4R WALDO Stop: 11/23/19 18:59 Last Admin: 10/24/19 22:31 Dose: 3 ml Documented by: [id number] Admin: 10/24/19 19:21 Dose: Not Given Documented by: [id number] Budesonide (Budesonide 0.25 Mg/2 Ml Vial (Pulmicort)) 0.25 mg NEB BIDR WALDO Stop: 11/23/19 18:59 Last Admin: 10/24/19 19:19 Dose: 0.25 mg Documented by: [id number] Enoxaparin Sodium (Enoxaparin Inj 40 Mg/0.4 Ml Syr) 40 mg SQ Q12H WALDO Stop: 11/23/19 17:59 Last Admin: 10/24/19 18:39 Dose: 40 mg Documented by: [id number] Formoterol Fumarate (Formoterol 20 Mcg/2 Ml Vial) 20 mcg INH BIDR WALDO Stop: 11/23/19 18:59 Last Admin: 10/24/19 19:20 Dose: 20 mcg Documented by: [id number] Discontinued Medications Albuterol (Albut/Ipratrop 3mg/0.5mg Neb 3 Ml Vial) 12 ml NEB ONE ONE Stop: 10/24/19 11:37 Last Admin: 10/24/19 11:39 Dose: Not Given Documented by: [id number] Albuterol (Albut/Ipratrop 3mg/0.5mg Neb 3 Ml Vial) 12 ml NEB ONE ONE Stop: 10/24/19 11:33 Last Admin: 10/24/19 11:38 Dose: 12 ml Documented by: [id number] Furosemide (Furosemide 40 Mg/4 Ml Vial) 40 mg IV NOW STA Stop: 10/24/19 12:51 Last Admin: 10/24/19 13:05 Dose: 40 mg Documented by: [id number] Blood Pressure Blood Pressure Findings: Elevated blood pressure Blood Pressure Disposition: further management by hospitalist Discharge Plan Visit Data Chief Complaint: Shortness of Breath/Dyspnea ED Provider: Venkat Cox Discharge Problem: Acute on chronic respiratory failure with hypoxia and hypercapnia, Acidemia, Obesity hypoventilation syndrome, Respiratory acidosis, Metabolic encephalopathy, CHF (congestive heart failure) Patient Disposition: Admitted As Inpatient Discharge Instructions Interventions: ED Discharge Assessment Last Done: 10/24/19 15:18
--- NOTE | 2019-10-24 12:57 | CT Scan Report ---
CT head/brain wo con CLINICAL HISTORY: 68 years-old Female with ams. Acutely altered mental status TECHNIQUE: Multiple axial CT images of the head were obtained without contrast. A dose lowering tech nique was utilized adhering to the principles of ALARA. CT DOSE: 1400.53 mGy.cm COMPARISON: Head CT 10/26/2018 FINDINGS: Motion degraded exam. Remote lacunar infarct of the left thalamus with unchanged probable perivascula r space within the left anterior commissure distribution on image 14 series 2. Minimal patchy white m atter hypodensities are suggestive of probable chronic microvascular ischemic disease. No acute intra cranial hemorrhage, midline shift, intracranial mass, hydrocephalus, territorial ischemia or abnormal extra-axial collection. The calvarium is intact. Left mastoid air cells are clear. Large right mastoid effusion is unchanged . Fluid is also within the right middle ear cavity. Soft tissues and orbits are unremarkable. IMPRESSION: 1. Motion degraded exam without acute intracranial abnormality identified. 2. Unchanged large right mastoid effusion. ACT 112: Negative or not required by law. The above report was generated using voice recognition software. It may contain grammatical, syntax o r spelling errors. Electronically signed by: Oscar Turpin M.D. 10/24/2019 12:56 PM
[2019-10-24 14:03] LABS: Base Excess ABG 9.8 mEq/L (-9-1.8); HCO3 ABG 41 mmol/L (19-24); Oxygen Saturation ABG 92.9 % (90-95); PCO2 ABG 106 mmHg (35-46); PO2 ABG 74 mmHg (80-95)
[2019-10-24 14:04] LABS: Allen Test Pos (Pos)
--- NOTE | 2019-10-24 15:25 | History & Physical Report ---
Date of Service October 24, 2019 Assessment & Plan (1) Acute on chronic respiratory failure with hypoxia and hypercapnia: (2) Metabolic encephalopathy: (3) Respiratory acidosis: This is a 68-year-old female with PMH of obesity hypoventilation syndrome, chronic hypercapnic respiratory failure on 4L O2 NC during day and NIV HS, COPD, insulin-dependent DM II with polyneuropathy, chronic diastolic heart failure, history of paroxysmal SVT, history of left thalamic CVA, HTN, obesity and other medical problems as below who presents with lethargy x2 days and was found to have metabolic encephalopathy in setting of acute on chronic hypercapnic respiratory failure. -Patient somnolent, hypoxic initially and placed on bipap with improvement -Chest x-ray with cardiomegaly with evidence of congestive failure and interstitial edema and layering pleural effusions with bibasilar consolidation -ABG with pH of 7.2 and PCO2 of 106. Continue trending -Patient to be monitored in ICU overnight in case patient deteriorates and requires intubation -Keep O2 saturation between 88-92% -Appreciate vendor analyst mgmt (4) CHF (congestive heart failure): BNP elevated at 1542 with some peripheral edema. Received Lasix 40mg IV in ED. Continue IV diuretics, monitor I&Os (5) Abnormal urinalysis: UA abnormal but afebrile, no leukocytosis. Follow urine culure (6) Diabetes mellitus, type II: Insulin dependent. Mgmt per ICU pharmacist (7) Hypertension: Continue metoprolol succinate once patient is more alert. IV antihy pertensives PRN DVT Ppx: SQ Lovenox Code status: FULL PCP: Graciela Dispo: Admitted to ICU. Discharge planning ordered. Patient seen in collaboration with Dr. Rodriguez. Please see addendum. History of Present Illness Chief Complaint: Lethargy Primary Care Provider: Bairon Owens MD This is a 68-year-old female with PMH of obesity hypoventilation syndrome, chronic hypercapnic respiratory failure on 4L O2 NC during day and NIV HS, COPD, insulin-dependent DM II with polyneuropathy, chronic diastolic heart failure, history of paroxysmal SVT, history of left thalamic CVA, HTN, obesity and other medical problems as below who presents with lethargy x2 days. 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 Was difficult to communicate with due to lethargy today, so brought to ED for further evaluation. Patient was admitted in October of last year with pneumonia and acute on chronic respiratory failure requiring intubation. Per , no recent fevers. Patient denies any pain. At baseline, patient requires Tere lift and is incontinent. 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 No recent medication changes. In ED, patient was afebrile and initially hypoxic in 80s. Was placed on BiPAP with an improvement of oxygen saturation 95%. VBG revealed pH of 7.1 and PCO2 of 136. Chest x-ray with cardiomegaly with evidence of congestive failure and interstitial edema and layering pleural effusions with bibasilar consolidation. ABG with pH of 7.2 and PCO2 of 106. Patient able to nod yes or no to some questions although somnolent. Mostly responsive to painful stimuli. Unable to obtain full ROS due to cognitive state. Allergies Allergy/AdvReac Type Severity Reaction Status Date / Time fluoxetine Allergy Severe ANAPHYLAXIS Verified 07/10/19 00:35 Insulins Allergy Severe LANTUS/LEVEMIR- Verified 07/10/19 00:35 HIVES/THROAT SWELLING moxifloxacin Allergy Severe HIVES Verified 07/10/19 00:35 nitrofurantoin Allergy Severe HIVES Verified 07/10/19 00:35 paroxetine Allergy Severe HIVES Verified 07/10/19 00:35 Quinolones Allergy Severe AVELOX & Verified 07/10/19 00:35 LEVAQUIN-HIVES amitriptyline Allergy Intermediate Sweats and Verified 07/10/19 00:35 itching buspirone Allergy Intermediate HIVES Verified 07/10/19 00:35 cephalexin Allergy Intermediate Hives Verified 07/10/19 00:35 citalopram Allergy Intermediate HIVES-RASH Verified 07/10/19 00:35 escitalopram Allergy Intermediate HIVES-RASH Verified 07/10/19 00:35 levofloxacin Allergy Intermediate Hives Verified 07/10/19 00:35 methadone Allergy Intermediate HIVES Verified 07/10/19 00:35 Penicillins Allergy Intermediate RASH,HIVES Verified 07/10/19 00:35 Serotonin 5HT-3 Antagonists Allergy Intermediate MIGRAINES Verified 07/10/19 00:35 TO SSRIs trazodone Allergy Intermediate BLOODY Verified 07/10/19 00:35 NOSE, HEADACHES,HIVES vancomycin Allergy Intermediate HIVES Verified 07/10/19 00:35 prednisone Allergy Mild CHEST Verified 07/10/19 00:35 TIGHTNESS carbamazepine Allergy Unknown HIVES-RASH- Verified 07/10/19 00:35 ITCHINESS cefepime Allergy Unknown face & arm Verified 07/10/19 00:35 redness/itching after 2nd or 3rd dose cefepime ceftriaxone Allergy Unknown Received Verified 07/10/19 00:35 in MTU (but needed benadryl for course of therapy Cipro Allergy Unknown ABD PAINS Verified 09/08/17 09:10 ciprofloxacin Allergy Unknown ABD PAINS Verified 07/10/19 00:35 sertraline Allergy Unknown UNKNOWN Verified 07/10/19 00:35 sitagliptin Allergy Unknown HIVES Verified 07/10/19 00:35 azithromycin Allergy Hives Verified 07/10/19 00:35 Cephalosporins Allergy Hives Verified 07/10/19 00:35 [facility] Allergy Unknown Verified 07/10/19 00:35 Tetracyclines AdvReac Severe HIVES Verified 07/10/19 00:35 Sulfa (Sulfonamide AdvReac Intermediate MIGRAINES Verified 07/10/19 00:35 Antibiotics) fexofenadine AdvReac Mild GI SYMPTOMS Verified 07/10/19 00:35 tizanidine AdvReac Mild ITCHING-HIV Verified 07/10/19 00:35 ES gentamicin AdvReac Unknown UNKNOWN Verified 07/10/19 00:35 lorazepam AdvReac Unknown Verified 07/10/19 00:35 blood Allergy Severe Anaphylaxis Uncoded 10/25/19 07:53 Home Medications Home Medications Medication Instructions Recorded Confirmed Type baclofen 5 mg PO HS 10/24/19 10/24/19 History celecoxib [Celebrex] 200 mg PO DAILY PRN 10/24/19 10/24/19 History cyanocobalamin (vitamin B-12) 1,000 mcg PO DAILY 10/24/19 10/24/19 History [Vitamin B-12] duloxetine 30 mg PO BID 10/24/19 10/24/19 History syhffiojpsx-nzpmuosup-otyaojfg 1 inh INHALATION DAILY 10/24/19 10/24/19 History [Trelegy Ellipta] furosemide 40 mg PO DAILY PRN 10/24/19 10/24/19 History insulin degludec [Tresiba 67 unit SUBCUT UD 10/24/19 10/24/19 History FlexTouch U-200] insulin regular human [Novolin R 0 unit SUBCUT UD 10/24/19 10/24/19 History Regular U-100 Insuln] levothyroxine 100 mcg PO DAILYBB 10/24/19 10/24/19 History metformin 2,000 mg PO DAILY 10/24/19 10/24/19 History metoprolol succinate 25 mg PO DAILY 10/24/19 10/24/19 History montelukast 10 mg PO HS 10/24/19 10/24/19 History nortriptyline 10 mg PO HS 10/24/19 10/24/19 History nystatin [Nyamyc] 1 applic TOPICAL TID 10/24/19 10/24/19 History pantoprazole 40 mg PO DAILYBB 10/24/19 10/24/19 History pregabalin 200 mg PO TID 10/24/19 10/24/19 History simvastatin 20 mg PO HS 10/24/19 10/24/19 History sumatriptan succinate 100 mg PO UD 10/24/19 10/24/19 History ursodiol 600 mg PO BID 10/24/19 10/24/19 History Past Med/Surg History Medical History Cerebrovascular disease "history left thalamic stroke" Chronic hypercapnic respiratory failure Chronic pain disorder (01/24/14) COPD (chronic obstructive pulmonary disease) CVA (cerebral vascular accident) hx of L thalamus CVA Diabetes mellitus, type II Dyslipidemia HLD (hyperlipidemia) Hypertension Hypertension Hypertrophic cardiomyopathy Hypothyroidism Morbid obesity Obesity hypoventilation syndrome JOSE (obstructive sleep apnea) Recurrent UTI Surgical History H/O partial nephrectomy History of tonsillectomy Hx of nasal septoplasty S/P dilatation and curettage Status post tonsillectomy Family History Father Coronary heart disease Mother Diabetes Social History Smoking Status: Unknown if ever smoked Second Hand Exposure: No; Preferred Language: [place] Communication Ability: Effective English Lecturer Required: No Beliefs That Will Affect Care: None marital status: Current Living Situation: Spouse Current Living Situation Comment: living at home with Other Information That Helps Us Care for You: No Feels Safe at Home: Yes Review of Systems Review of Systems: Unobtainable due to cognitive status Physical Exam 2 Physical Exam: General Appearance: WD/WN, vitals as above, morbidly obese, somnolent on BiPAP, responsive to some verbal and painful stimuli Head: normocephalic, atraumatic Eyes: normal inspection, PERRL, conjunctivae normal, anicteric sclerae ENT: external ear and nose normal, wearing BiPAP mask Neck: normal visual inspection, trachea midline, no thyromegaly Respiratory: Diminished lung sounds bilaterally with bibasilar crackles, no wheeze, rales, rhonchi. No accessory muscle use Cardiovascular: regular rate, rhythm, no murmur appreciated, normal peripheral pulses, 2+ BLE edema. Unable to assess for JVD 2/2 habitus Abdomen/GI: normal bowel sounds, soft, nontender, no hepatosplenomegaly Extremities/Musculoskeletal: no cyanosis or clubbing, extremities motor strength 5/5 Neurologic: PERRL, CN's II-XI intact bilaterally and moves all extremities Psychiatric: Somnolent. Answering some yes/no questions Skin: small area of erythematous lesions on chest - no warmth or drainage. Skin warm/dry Results & Data Results & Data ([facility]) Vital Signs (Past 12 Hours) Vital Signs Temp Pulse Pulse Resp BP Pulse Ox 10/24/19 14:46 90 26 H 167/64 H 94 10/24/19 14:36 88 24 94 10/24/19 14:31 90 28 H 165/58 H 96 10/24/19 14:17 86 25 H 96 10/24/19 14:16 86 25 H 145/54 H 97 10/24/19 14:01 87 26 H 141/54 H 97 10/24/19 13:46 88 25 H 164/60 H 96 10/24/19 13:45 88 24 96 10/24/19 13:32 90 24 97 10/24/19 13:31 90 23 171/66 H 97 10/24/19 13:16 91 H 26 H 162/60 H 96 10/24/19 13:03 93 H 28 H 164/62 H 93 10/24/19 13:01 94 H 26 H 167/59 H 92 10/24/19 13:00 92 10/24/19 12:56 95 H 30 H 185/67 H 92 10/24/19 12:36 95 H 33 H 184/68 H 97 10/24/19 12:31 94 H 30 H 181/71 H 96 10/24/19 12:26 98 H 31 H 187/67 H 96 10/24/19 12:21 97 H 31 H 170/65 H 95 10/24/19 12:16 97 H 29 H 201/70 H 96 10/24/19 12:11 97 H 33 H 198/75 H 96 10/24/19 12:06 101 H 21 193/60 H 96 10/24/19 12:05 97 H 30 H 96 10/24/19 12:01 96 H 34 H 191/72 H 95 10/24/19 12:00 99 H 32 H 96 10/24/19 11:56 98 H 31 H 96 10/24/19 11:55 95 H 30 H 196/119 H 96 10/24/19 11:50 98 H 34 H 96 10/24/19 11:45 96 H 29 H 95 10/24/19 11:40 96 H 32 H 173/69 H 97 10/24/19 11:38 97 10/24/19 11:37 96 H 25 H 96 10/24/19 11:36 96 H 25 H 96 10/24/19 11:35 95 H 29 H 175/63 H 97 10/24/19 11:30 95 H 32 H 177/71 H 96 10/24/19 11:29 96 H 28 H 96 10/24/19 11:27 37.0 C 95 H 24 177/71 H 97 10/24/19 11:25 96 H 21 174/79 H 98 Laboratory Results Short CBC 10/24/19 Range/Units 11:56 WBC 9.68 (4.8-10.8) K/uL Hgb 10.9 L (12.0-16.0) g/dL Hct 41.2 (37-47) % Plt Count 121 L (130-400) K/uL BMP 10/24/19 11:56 Sodium 144 Potassium 3.6 Chloride 101 Carbon Dioxide 40 H BUN 17 Creatinine 0.81 Glucose 177 H Calcium 9.4 Cardiac Enzymes 10/24/19 Range/Units 11:56 Troponin I 0.015 (0-0.045) ng/ml Liver Function 10/24/19 Range/Units 11:56 Total Bilirubin 0.3 (0.2-1) mg/dl Direct Bilirubin < 0.1 (0-0.2) mg/dl AST 14 L (15-37) U/L ALT 15 (12-78) U/L Alkaline Phosphatase 99 (45-117) U/L Albumin 3.2 L (3.4-5.0) gm/dl Urine 10/24/19 Range/Units 12:25 Urine Color Yellow Urine Appearance Turbid A (Clear) Urine pH 5.0 (4.5-7.5) Ur Specific [place] 1.016 (1.000-1.030) Urine Protein 2+ H (Negative) Urine Glucose (UA) 3+ H (Negative) Diagnostic Findings CT head: IMPRESSION: 1. Motion degraded exam without acute intracranial abnormality identified. 2. Unchanged large right mastoid effusion. CXR: IMPRESSION: 1. Cardiomegaly with evidence of congestive failure and interstitial edema. 2. Layering pleural effusions with bibasilar consolidation. Code Status & VTE Plan VTE Prophylaxis Plan VTE Prophylaxis will be ordered: Yes Supervising Physician Co-Signing Physician Notes Pt was seen and examined. Agreed with [facility] exam, assessment and plan. 68-year-old female with PMH of obesity hypoventilation syndrome, chronic hypercapnic respiratory failure on 4L O2 NC during day and NIV HS, COPD, insulin-dependent DM II with polyneuropathy, chronic diastolic heart failure, history of paroxysmal SVT, history of left thalamic CVA, HTN, obesity with multiple admission for respiratory failure present to the ER with lethargy. said that in the last few days pt has been very drowsy and lethargy. In the ER pt is very hard to arouse. CXR on admission showed cardiomegaly with evidence of congestive failure and interstitial edema. CT chest showed no acute intracranial abnormality. VBG on admission showed pH 7.11 and Pco2 136. She was placed on BIpap then ABG later showed pH of 7.2 and PCO2 of 106. Will continue Bipap. Will admit in the ICU in case pt will require intubation with mechanical ventilation.Case discussed with the vendor analyst. Will avoid any narcotic or [employer] med for now. Will continue monitor closely in the ICU. MD Jennifer
[2019-10-24] MEDS ORDERED: ICU PROTOCOL FOR HYPERGLYCEMIA PRN (15:45)
[2019-10-24 15:46] LABS: iSTAT Allen Test Pass; iSTAT Art Bld Gas pCO2 Correct 117 mmHg (35-46); iSTAT Art Bld Gas pH Corrected 7.182 (7.35-7.45); iSTAT Arterial Blood Gas HCO3 44 meg/L (19-24); iSTAT Arterial Blood Gas pCO2 > 115 mmHg (35-46); iSTAT Arterial Blood Gas pH 7.17 (7.35-7.45); iSTAT Arterial Blood Gas pO2 99 mmHg (80-95); iSTAT Arterial Blood Gas pO2 C 95; iSTAT Carbon Dioxide > 40 mmol/L (24-31); iSTAT FiO2 50 %; iSTAT Hematocrit 39 % (37-47); iSTAT Hemoglobin 13.3 g/dl (12.0-16.0); iSTAT Potassium 3.9 mmol/L (3.3-5.0); iSTAT Site R Radial; iSTAT Sodium 145 mmol/L (135-144)
--- NOTE | 2019-10-24 16:08 | Critical Care Consultation ---
Date of Consultation October 24, 2019 Assessment & Plan (1) Acute on chronic respiratory failure with hypoxia and hypercapnia: --Metabolic encephalopathy Likely secondary to acute on chronic hypercapnic respiratory failure TSH: 0.745, procalcitonin 0.33, Covid-19 PCR 11/03/2019: Negative Continue with BiPAP continuous and titrate IPAP to target tidal volume of 450- 550 with backup rate of 18 Repeat ABG in 30 minutes If the PCO2 is not trending down and there is any clinical deterioration of mental status will intubate the patient Keep O2 saturation between 88-92% --Diastolic CHF BNP 1542 at the time of presentation in morbidly obese patient Continue with diuretics as tolerated Keep patient negative balance. --Acute on chronic hypercapnic hypoxic respiratory failure Likely secondary noncompliance with component of OHS Plan as above --Dirty urine Follow-up urine culture Hold antibiotics for the time being --Diabetes type 2 ICU hyperglycemia protocol --Hypertension Continue with p.o. home medication once patient is more alert We will give IV pushes of metoprolol for systolic blood pressure greater than 160. --Normocytic with thrombocytopenia Monitor H&H --Prophylaxis VTE: Lovenox GI: None Lines: Peripheral Diet: N.p.o. Plan: Continue with BiPAP continuous Repeat ABG to make sure PCO2 is trending down and pH is improving. If there is worsening in the PCO2 or there is change in mental status towards worse then will intubate the patient Patient has allergies to every known antibiotics. We will hold antibiotics at the patient does not seem to have an infectious process going on. I have personally spent 67 minutes of critical care time in the direct manageme nt of this patient. This is a life/limb threatening event. This includes time spent evaluating eloy ent, direct bedside care, chart review, placing orders, interpretation of diagnostic studies, discussion with consultants, patient, and family members, as well as other required patient management activities. This time is exclusive of all separately billable procedures, and teaching time and separate from and in addition to any other critical care service time. Please note the above document was generated using voice recognition software. It may contain grammatical, syntax or spelling errors. (2) CHF (congestive heart failure): (3) Metabolic encephalopathy: (4) Morbid obesity: (5) COPD (chronic obstructive pulmonary disease): History of Present Illness Attending Physician: Liza Rodriguez MD History of Present Illness 68-year-old female with past medical history of chronic hypercapnic hypoxic respiratory failure, obesity hypoventilation syndrome, diastolic CHF, diabetes, prior CVA, hypothyroidism was brought into the ED because of altered mental status and lethargy by the family. In the ED patient's VBG showed a PCO2 136. Patient was put on BiPAP and sent to the ICU. At the time of examination in ICU patient was somnolent but on calling her name she woke up she knew her name. She did not know where she was. Denied any chest pain, no dizziness, no headache, no nausea, no vomiting. ABG done in the ED 7.. ABG done in the ICU at the time of presentation 7. on 50% FiO2 Patient was seen at bedside. She was getting good tidal volumes of 450-550, respiratory was 21. As per the respiratory perspective care of the patient in the ED patient is more alert compared to when she came to the hospital. History obtained from previous chart. Allergies Allergy/AdvReac Type Severity Reaction Status Date / Time fluoxetine Allergy Severe ANAPHYLAXIS Verified 07/10/19 00:35 Insulins Allergy Severe LANTUS/LEVEMIR- Verified 07/10/19 00:35 HIVES/THROAT SWELLING moxifloxacin Allergy Severe HIVES Verified 07/10/19 00:35 nitrofurantoin Allergy Severe HIVES Verified 07/10/19 00:35 paroxetine Allergy Severe HIVES Verified 07/10/19 00:35 Quinolones Allergy Severe AVELOX & Verified 07/10/19 00:35 LEVAQUIN-HIVES amitriptyline Allergy Intermediate Sweats and Verified 07/10/19 00:35 itching buspirone Allergy Intermediate HIVES Verified 07/10/19 00:35 cephalexin Allergy Intermediate Hives Verified 07/10/19 00:35 citalopram Allergy Intermediate HIVES-RASH Verified 07/10/19 00:35 escitalopram Allergy Intermediate HIVES-RASH Verified 07/10/19 00:35 levofloxacin Allergy Intermediate Hives Verified 07/10/19 00:35 methadone Allergy Intermediate HIVES Verified 07/10/19 00:35 Penicillins Allergy Intermediate RASH,HIVES Verified 07/10/19 00:35 Serotonin 5HT-3 Antagonists Allergy Intermediate MIGRAINES Verified 07/10/19 00:35 TO SSRIs trazodone Allergy Intermediate BLOODY Verified 07/10/19 00:35 NOSE, HEADACHES,HIVES vancomycin Allergy Intermediate HIVES Verified 07/10/19 00:35 prednisone Allergy Mild CHEST Verified 07/10/19 00:35 TIGHTNESS carbamazepine Allergy Unknown HIVES-RASH- Verified 07/10/19 00:35 ITCHINESS cefepime Allergy Unknown face & arm Verified 07/10/19 00:35 redness/itching after 2nd or 3rd dose cefepime ceftriaxone Allergy Unknown Received Verified 07/10/19 00:35 in MTU (but needed benadryl for course of therapy Cipro Allergy Unknown ABD PAINS Verified 09/08/17 09:10 ciprofloxacin Allergy Unknown ABD PAINS Verified 07/10/19 00:35 sertraline Allergy Unknown UNKNOWN Verified 07/10/19 00:35 sitagliptin Allergy Unknown HIVES Verified 07/10/19 00:35 azithromycin Allergy Hives Verified 07/10/19 00:35 Cephalosporins Allergy Hives Verified 07/10/19 00:35 [facility] Allergy Unknown Verified 07/10/19 00:35 Tetracyclines AdvReac Severe HIVES Verified 07/10/19 00:35 Sulfa (Sulfonamide AdvReac Intermediate MIGRAINES Verified 07/10/19 00:35 Antibiotics) fexofenadine AdvReac Mild GI SYMPTOMS Verified 07/10/19 00:35 tizanidine AdvReac Mild ITCHING-HIV Verified 07/10/19 00:35 ES gentamicin AdvReac Unknown UNKNOWN Verified 07/10/19 00:35 lorazepam AdvReac Unknown Verified 07/10/19 00:35 Home Medications Home Medications Medication Instructions Recorded Confirmed Type baclofen 5 mg PO HS 10/24/19 10/24/19 History celecoxib [Celebrex] 200 mg PO DAILY PRN 10/24/19 10/24/19 History cyanocobalamin (vitamin B-12) 1,000 mcg PO DAILY 10/24/19 10/24/19 History [Vitamin B-12] duloxetine 30 mg PO BID 10/24/19 10/24/19 History aiqdbblqehm-qxqfodltr-tbojtnsu 1 inh INHALATION DAILY 10/24/19 10/24/19 History [Trelegy Ellipta] furosemide 40 mg PO DAILY PRN 10/24/19 10/24/19 History insulin degludec [Tresiba 67 unit SUBCUT UD 10/24/19 10/24/19 History FlexTouch U-200] insulin regular human [Novolin R 0 unit SUBCUT UD 10/24/19 10/24/19 History Regular U-100 Insuln] levothyroxine 100 mcg PO DAILYBB 10/24/19 10/24/19 History metformin 2,000 mg PO DAILY 10/24/19 10/24/19 History metoprolol succinate 25 mg PO DAILY 10/24/19 10/24/19 History montelukast 10 mg PO HS 10/24/19 10/24/19 History nortriptyline 10 mg PO HS 10/24/19 10/24/19 History nystatin [Nyamyc] 1 applic TOPICAL TID 10/24/19 10/24/19 History pantoprazole 40 mg PO DAILYBB 10/24/19 10/24/19 History pregabalin 200 mg PO TID 10/24/19 10/24/19 History simvastatin 20 mg PO HS 10/24/19 10/24/19 History sumatriptan succinate 100 mg PO UD 10/24/19 10/24/19 History ursodiol 600 mg PO BID 10/24/19 10/24/19 History Patient History Medical History Cerebrovascular disease "history left thalamic stroke" Chronic hypercapnic respiratory failure Chronic pain disorder (01/24/14) COPD (chronic obstructive pulmonary disease) CVA (cerebral vascular accident) hx of L thalamus CVA Diabetes mellitus, type II Dyslipidemia HLD (hyperlipidemia) Hypertension Hypertension Hypertrophic cardiomyopathy Hypothyroidism Morbid obesity Obesity hypoventilation syndrome JOSE (obstructive sleep apnea) Recurrent UTI Surgical History H/O partial nephrectomy History of tonsillectomy Hx of nasal septoplasty S/P dilatation and curettage Status post tonsillectomy Family History Father Coronary heart disease Mother Diabetes Social History Smoking Status: Unknown if ever smoked Second Hand Exposure: No; Preferred Language: Spanish Communication Ability: Impaired Pals Nurse Required: No Beliefs That Will Affect Care: None marital status: Current Living Situation: Spouse Current Living Situation Comment: living at home with Other Information That Helps Us Care for You: No Feels Safe at Home: Yes Review of Systems Review of Systems: All systems reviewed & are unremarkable except as noted in HPI & below and Unobtainable due to cognitive status Physical Exam Physical Exam: Constitutional: No acute distress HEENT: EOMI, PERRLA, thick neck Respiratory system: Decreased air entry bilaterally, no wheeze, no rhonchi, mild crackles bilateral lower lobes CVS: S1-S2 positive, no murmurs or gallops, distant heart sounds, accentuated P2 Abdomen: Soft, nontender, nondistended, positive bowel sounds x4, obese Extremities: +2 pulses bilaterally radialis/ dorsalis pedis, no cyanosis, +2 pitting edema bilateral lower extremity Neuro: Somnolent, on calling her name alert to self Psych: Somnolent on waking up normal mood and affect G/U: Positive Ferrell Skin: no rashes, warm and dry Lymphatic: no cervical or axillary lymphadenopathy Results & Data Results & Data ([facility]) Vital Signs (Past 12 Hours) Vital Signs Temp Pulse Pulse Resp BP Pulse Ox 10/24/19 15:38 36.4 C L 10/24/19 15:26 36.4 C L 88 27 H 175/72 H 97 10/24/19 15:01 90 24 164/64 H 92 10/24/19 14:46 90 26 H 167/64 H 94 10/24/19 14:36 88 24 94 10/24/19 14:31 90 28 H 165/58 H 96 10/24/19 14:17 86 25 H 96 10/24/19 14:16 86 25 H 145/54 H 97 10/24/19 14:01 87 26 H 141/54 H 97 10/24/19 13:46 88 25 H 164/60 H 96 10/24/19 13:45 88 24 96 10/24/19 13:32 90 24 97 10/24/19 13:31 90 23 171/66 H 97 10/24/19 13:16 91 H 26 H 162/60 H 96 10/24/19 13:03 93 H 28 H 164/62 H 93 10/24/19 13:01 94 H 26 H 167/59 H 92 10/24/19 13:00 92 10/24/19 12:56 95 H 30 H 185/67 H 92 10/24/19 12:36 95 H 33 H 184/68 H 97 10/24/19 12:31 94 H 30 H 181/71 H 96 10/24/19 12:26 98 H 31 H 187/67 H 96 10/24/19 12:21 97 H 31 H 170/65 H 95 10/24/19 12:16 97 H 29 H 201/70 H 96 10/24/19 12:11 97 H 33 H 198/75 H 96 10/24/19 12:06 101 H 21 193/60 H 96 10/24/19 12:05 97 H 30 H 96 10/24/19 12:01 96 H 34 H 191/72 H 95 10/24/19 12:00 99 H 32 H 96 10/24/19 11:56 98 H 31 H 96 10/24/19 11:55 95 H 30 H 196/119 H 96 10/24/19 11:50 98 H 34 H 96 10/24/19 11:45 96 H 29 H 95 10/24/19 11:40 96 H 32 H 173/69 H 97 10/24/19 11:38 97 10/24/19 11:37 96 H 25 H 96 10/24/19 11:36 96 H 25 H 96 10/24/19 11:35 95 H 29 H 175/63 H 97 10/24/19 11:30 95 H 32 H 177/71 H 96 10/24/19 11:29 96 H 28 H 96 10/24/19 11:27 37.0 C 95 H 24 177/71 H 97 10/24/19 11:25 96 H 21 174/79 H 98 10/24/19 11:56 10/24/19 11:56 10/24/19 10/24/19 11:56 13:42 ABG pH 7.20 L ABG pCO2 106 H ABG pO2 74 L ABG HCO3 41 H ABG O2 Saturation 92.9 ABG Base Excess 9.8 H VBG pH 7.11 L VBG pCO2 136 H VBG pO2 97 VBG HCO3 43 VBG O2 Saturation 95.0 VBG Base Excess 9.1 Coding Level of Care Code Critical Care 1st 30-74 mins Diagnoses Acute on chronic respiratory failure with hypoxia and hypercapnia J96.21; J96.22 CHF (congestive heart failure) I50.9 Metabolic encephalopathy G93.41 Morbid obesity E66.01 COPD (chronic obstructive pulmonary disease) J44.9 Time Spent (min) 67
[2019-10-24 16:35] LABS: iSTAT Allen Test Pass; iSTAT Arterial Blood Gas HCO3 44 meg/L (19-24); iSTAT Arterial Blood Gas pCO2 85 mmHg (35-46); iSTAT Arterial Blood Gas pH 7.32 (7.35-7.45); iSTAT Arterial Blood Gas pO2 53 mmHg (80-95); iSTAT Carbon Dioxide > 40 mmol/L (24-31); iSTAT FiO2 30 %; iSTAT Site L Radial
[2019-10-24 17:08] LABS: Amphetamines+Metham, Urine Neg (Neg); Barbiturates, Urine Neg (Neg); Benzodiazepine, Urine Neg (Neg); Cocaine, Urine Neg (Neg); MDMA (Ecstacy), Urine Neg (Neg); Methadone, Urine Neg (Neg); Opiate, Urine Neg (Neg); Phencyclidine, Urine Neg (Neg)
[2019-10-24] MEDS: ENOXAPARIN INJ 40 MG/0.4 ML SYR SQ SCH (18:39)
[2019-10-24] MEDS: BUDESONIDE 0.25 MG/2 ML VIAL (PULMICORT) NEB SCH (19:19)
[2019-10-24] MEDS: FORMOTEROL 20 MCG/2 ML VIAL INH SCH (19:20)
[2019-10-24] MEDS: ALBUT/IPRATROP 3MG/0.5MG NEB 3 ML VIAL NEB SCH ×2 (19:21→22:31)
--- NOTE | 2019-10-24 19:21 | Electrocardiogram Report ---
Test Reason : Blood Pressure : / mmHG Vent. Rate : 096 BPM Atrial Rate : 096 BPM P-R Int : 152 ms QRS Dur : 092 ms QT Int : 342 ms P-R-T Axes : 063 006 074 degrees QTc Int : 432 ms Normal sinus rhythm Nonspecific ST and T wave abnormality Abnormal ECG When compared with ECG of 09-JUL-2019 23:46, No significant change was found Confirmed by Devonte Gama ([id number]) on 10/24/2019 7:21:08 PM Referred By: STEWART Confirmed By:Rafal Gama
[2019-10-25] MEDS: ALBUT/IPRATROP 3MG/0.5MG NEB 3 ML VIAL NEB SCH ×6 (03:22→22:59)
[2019-10-25 05:16] LABS: BUN Creatinine Ratio 26.9 (10-20); Calcium 9.3 mg/dl (8.5-10.1); Creatinine Clr Calc Pharmacy 123.8 ml/min; Est GFR (Non-African American) 90.6; Magnesium 1.7 mg/dl (1.8-2.4); Potassium 3.3 mmol/L (3.5-5.1)
[2019-10-25] MEDS: ENOXAPARIN INJ 40 MG/0.4 ML SYR SQ SCH (05:25)
[2019-10-25 05:28] LABS: Hematocrit (blood only) 35.1 % (37-47); Hemoglobin 9.8 g/dL (12.0-16.0); Mean Corpuscular Hemoglobin 24.6 pg (25-34); Mean Corpuscular Hgb Conc 27.9 g/dL (32-36); Mean Platelet Volume 10.5 fL (7.4-10.4); Platelet Count 115 K/uL (130-400); RDW Coefficient of Variation 19.9 % (11.5-14.5); RDW Standard Deviation 63.8 fL (36.4-46.3); Red Blood Count 3.99 M/uL (4.2-5.4); White Blood Count 7.33 K/uL (4.8-10.8)
[2019-10-25 05:47] LABS: iSTAT Allen Test Pass; iSTAT Art Bld Gas pCO2 Correct 62 mmHg (35-46); iSTAT Art Bld Gas pH Corrected 7.447 (7.35-7.45); iSTAT Arterial Blood Gas HCO3 43 meg/L (19-24); iSTAT Arterial Blood Gas pCO2 61 mmHg (35-46); iSTAT Arterial Blood Gas pH 7.46 (7.35-7.45); iSTAT Arterial Blood Gas pO2 73 mmHg (80-95); iSTAT Arterial Blood Gas pO2 C 75; iSTAT Carbon Dioxide > 40 mmol/L (24-31); iSTAT FiO2 40 %; iSTAT Hematocrit 33 % (37-47); iSTAT Hemoglobin 11.2 g/dl (12.0-16.0); iSTAT Potassium 3.3 mmol/L (3.3-5.0); iSTAT Site L Radial; iSTAT Sodium 143 mmol/L (135-144)
[2019-10-25 05:59] LABS: Phosphorus 1.7 mg/dl (2.5-4.9)
[2019-10-25] MEDS ORDERED: MAGNESIUM SULFATE / D5W 1 GM/100 ML BAG IV ONE ×2 (06:10→08:30)
[2019-10-25] MEDS ORDERED: POTASSIUM PHOS 3 MMOL/1 ML INFUSION IV STA ×2 (06:10→07:22)
[2019-10-25] MEDS ORDERED: POTASSIUM PHOSPHATE 21 MMOL in SODIUM CHLORIDE 0.9% 500 ML IV ONE ×2 (06:30→10:30)
[2019-10-25] MEDS: BUDESONIDE 0.25 MG/2 ML VIAL (PULMICORT) NEB SCH ×2 (06:57→19:47)
[2019-10-25] MEDS: FORMOTEROL 20 MCG/2 ML VIAL INH SCH ×2 (06:57→19:48)
--- NOTE | 2019-10-25 07:21 | XRay Report ---
XR chest 1V portable CLINICAL HISTORY: f/u COMPARISON STUDY: Chest radiograph October 24, 2019. Chest CT October 26, 2018. FINDINGS: A chondroid lesion within the proximal right humerus is noted. This is unchanged from earli er exams. This favors an enchondroma. Patient is rotated. There is no pneumothorax. Cardiomegaly is a gain noted. Pulmonary edema has slightly improved. Left basilar consolidation persists. Small left an d trace right pleural effusions are noted. These are slightly improved. IMPRESSION: 1. Mild pulmonary edema, slightly improved since prior exam. 2. Dense left basilar consolidation which may reflect pneumonia or atelectasis. Radiographic follow u p is recommended. 3. Suspected small left and trace right pleural effusions. ACT 112: Negative or not required by law. Electronically signed by: Chidi Gregory M.D. 10/25/2019 7:20 AM
[2019-10-25] MEDS ORDERED: ACETAMINOPHEN 325 MG TAB PO ONE (08:18)
--- NOTE | 2019-10-25 08:45 | Critical Care Progress Note ---
Date of Service October 25, 2019 Assessment & Plan (1) Acute on chronic respiratory failure with hypoxia and hypercapnia: Patient is a 68y/o F with past medical history of chronic hypercapnic hypoxic respiratory failure, obesity hypoventilation syndrome, obstructive sleep apnea, diastolic CHF, type 2 diabetes, history of CVA, hypothyroidism; presented to the emergency department following altered mental status and increased sedation. Admitted to ICU for acute on chronic hypercapnic hypoxic respiratory failure, started on BiPAP continuous with subsequent transition during daytime to nasal cannula. Stable for downgrade from ICU level of care following continued improvement. Neuro: -CAM ICU negative -Metabolic encephalopathy -Secondary to acute on chronic hypercapnic respiratory failure Cardiac/Vascular: -Diastolic CHF -BMP 1542 on admission -Lasix 40 mg daily -Hypertension Respiratory: -Acute on chronic hypercapnic respiratory failure -Continuous BiPAP at night or when asleep, nasal cannula during the day -Maintain sats 88-92% -COPD -Continue inhaler regimen -Patient with numerous antibiotic allergies, as a result unable to be started on respiratory prophylaxis GI/Nutrition: -Carb consistent, heart healthy diet Renal/Lytes: -Replete per ICU protocol -Repleted with 2 g IV mag sulfate, and 42 mmol K-Phos : -DC Ferrell ENDO: -Type 2 diabetes -Continue to monitor per ICU hyperglycemic protocol HEME: -H&H stable, pancytopenia -Patient appears to have had this in previous admissions -Transition Lovenox from twice daily to once daily dosing ID: -Patient has numerous allergies, unable to be started on respiratory prophylaxis based off these allergies Lines/IV Access: -DC Ferrell -PIV x2 DVT Prophylaxis: -Lovenox daily (2) Morbid obesity: (3) Hypotension: (4) CHF (congestive heart failure): (5) Paroxysmal SVT (supraventricular tachycardia): (6) Metabolic encephalopathy: (7) JOSE (obstructive sleep apnea): (8) COPD (chronic obstructive pulmonary disease): (9) Diabetes mellitus, type II: Admission and Anticipated Discharge Date Admission Date: October 24, 2019 Supervising Physician Co-Signing Physician Notes Catracho Houston was the resident-physician during care of patient. I separately evaluated patient for edge portions of the history and the exam. I was present during the critical portion of medical decision making, and I discussed the case with the resident. I generally agree with the findings and plan except for any additions/exceptions noted. Patient seen and examined at bedside. No acute distress, no adverse events overnight. Patient did pretty well on continuous BiPAP. Her arterial PCO2 has significantly improved along with her pH. Patient has trilogy at home and she states that she has been using it every night but she does not use it when she takes a nap during the day. Importance of using the trilogy machine whenever she is asleep irrespective of the time of day explained to the patient in depth. Patient is complaining of left-sided pain lateral to the hip. Which is reproducible on palpation. This is most likely trochanteric bursitis. We will give the patient Tylenol along with topical diclofenac gel. Patient has dirty urine but there is no signs of sepsis. We will just monitor and follow-up urine culture. GLORIA Ferrell prior to downgrading the patient. Patient's bicarb in the serum is 40. Her pH now is 7.42. Patient is currently on Lasix. Would recommend giving acetazolamide 250 mg twice daily for total of 6 doses may be starting tomorrow and holding Lasix at that time. It is important to keep an eye on the pH to make sure it is not acidotic while giving acetazolamide. Patient occasionally has PACs and her heart rate goes down to the 40s without any compromise in the blood pressure or any complaints. EKG shows sinus rhythm. Could be sinus arrhythmia that the patient has. She is not on any beta-blockers or any other medication which might cause bradycardia. We will get cardiology involved to see if there any further work-up is needed for it. Patient is hemodynamically stable to be downgraded to a telemetry floor. I have personally spent 32 minutes of critical care time in the direct management of this patient. This is a life/limb threatening event. This includes time spent evaluating patient, direct bedside care, chart review, placing orders, interpretation of diagnostic studies, discussion with consultants, patient, and/or family members regarding treatment decisions, as well as other required patient management activities. This time is exclusive of all separately billable procedures, and teaching time and separate from and in addition to any other critical care service time. Subjective Patient is much more awake and alert this morning, continues to endorse that she regularly uses her BiPAP at home. Does not use it during the day for daytime naps, as she often forgets that she needs to use it. Currently endorses some left-sided hip pain, that she states has been there for several months. Denies chest pain, shortness of breath, nausea, vomiting, abdominal pain, headaches, dizziness. Review of Systems Review of Systems: All systems reviewed & are unremarkable except as noted in Subjective Physical Exam Constitutional: WD/WN, vitals as above Eyes: PERRL, conjunctivae normal, anicteric sclerae Neck: trachea midline, no thyromegaly Respiratory: no respiratory distress, no labored breathing and no retractions Auscultation: + diminished lung sounds; no crackles, no rales and no wheezes Cardiovascular: Rate/Rhythm: regular rate and regular rhythm Heart Sounds: no gallop, no murmur and no cardiac rub Vessels: normal peripheral pulses Gastrointestinal (Abdomen): normal bowel sounds, soft, nontender, no hepatosplenomegaly Musculoskeletal: Hip: no deformity, no effusion, no skin erythema and log roll test negative Skin: no rashes, warm and dry Neurologic: PERRL, EOMI, accommodation nl, no face palsy, no dysarthria Psychiatric: Orientation: alert and oriented x 3 Lymphatic: no cervical lymphadenopathy Results & Data Results & Data ([facility]) Vital Signs (Past 12 Hours) Vital Signs Temp Pulse Pulse Resp BP BP Pulse Ox 10/25/19 07:03 71 25 H 95 10/25/19 07:01 75 25 H 95 10/25/19 06:26 80 26 H 147/72 H 97 10/25/19 06:00 83 26 H 97 10/25/19 05:38 71 30 H 95 10/25/19 05:32 78 25 H 105/67 95 10/25/19 04:26 82 27 H 123/52 L 91 10/25/19 04:00 37.8 C H 85 26 H 94 10/25/19 03:30 77 23 90 10/25/19 03:29 77 23 90 10/25/19 03:26 77 23 129/59 L 95 10/25/19 03:00 78 22 142/45 H 92 10/25/19 02:00 86 25 H 90 10/25/19 01:26 88 30 H 144/43 H 89 L 10/25/19 00:25 78 30 H 127/46 L 90 10/25/19 00:00 36.7 C 82 24 127/46 L 90 10/24/19 23:25 89 20 126/59 L 92 10/24/19 22:31 80 20 91 10/24/19 22:26 77 30 H 131/45 L 90 10/24/19 22:00 78 28 H 90 10/24/19 21:38 76 21 92 10/24/19 21:27 76 25 H 96/69 L 90 Laboratory Results 10/25/19 10/25/19 10/25/19 Range/Units 05:32 04:43 04:43 WBC 7.33 (4.8-10.8) K/uL RBC 3.99 L (4.2-5.4) M/uL Hgb 9.8 L (12.0-16.0) g/dL POC Hgb 11.2 L (12.0-16.0) g/dl Hct 35.1 L (37-47) % POC Hct 33 L (37-47) % MCV 88.0 (80-100) fL MCH 24.6 L (25-34) pg MCHC 27.9 L (32-36) g/dL RDW Std Deviation 63.8 H (36.4-46.3) fL RDW Coeff of Duy 19.9 H (11.5-14.5) % Plt Count 115 L (130-400) K/uL MPV 10.5 H (7.4-10.4) fL Immature Gran % (Auto) % Neut % (Auto) % Lymph % (Auto) % Waldo % (Auto) % Eos % (Auto) % Baso % (Auto) % Neut # (Auto) (1.4-6.5) K/uL Lymph # (Auto) (1.2-3.4) K/uL Waldo # (Auto) (0.11-0.59) K/uL Eos # (Auto) (0-0.5) K/uL Baso # (Auto) (0-0.2) K/uL Immature Gran # (Auto) (0.00-0.02) K/uL Polychromasia Hypochromasia Basophilic Stippling Anisocytosis Stomatocytes PT (9.0-12.0) Seconds INR (0.9-1.1) APTT (21.0-31.0) Seconds PTT Ratio Sample Site L Radial POC pH 7.46 H (7.35-7.45) POC pCO2 61 H (35-46) mmHg POC pO2 73 L (80-95) mmHg POC HCO3 43 H (19-24) cachorro/L POC Base Excess 19.0 H (-9-1.8) cachorro/L ABG pH (7.35-7.45) ABG pH (Temp Correct) 7.447 (7.35-7.45) ABG pCO2 (35-46) mmHg ABG pCO2 (Temp Corrct 62 H (35-46) mmHg ABG pO2 (80-95) mmHg POC ABG pO2 at Pt Temp 75 ABG HCO3 (19-24) mmol/L POC ABG O2 Sat 95.0 (90-95) % ABG O2 Saturation (90-95) % ABG Base Excess (-9-1.8) mEq/L Bill Test Pass (Pos) VBG pH (7.36-7.41) VBG pCO2 (38-50) mmHg VBG pO2 mmHg VBG HCO3 mmol/L VBG O2 Saturation % VBG Base Excess mEq/L Barometric Pressure mm/Hg Oxygen Given O2 Delivery Device BIPAP POC O2 Rate 18 POC FiO2 40 % IPAP 18 POC Sodium 143 (135-144) mmol/L Sodium 143 (136-145) mmol/L POC Potassium 3.3 (3.3-5.0) mmol/L Potassium 3.3 L (3.5-5.1) mmol/L POC Chloride (101-112) mmol/L Chloride 100 (98-107) mmol/L Carbon Dioxide 40 H (21-32) mmol/L POC Total CO2 > 40 H* (24-31) mmol/L Anion Gap 3.0 (3-11) POC Anion Gap (16-25) mmol/L POC BUN (7-18) mg/dl BUN 17 (7-18) mg/dl Creatinine 0.65 (0.6-1.2) mg/dl POC Creatinine (0.6-1.3) mg/dl Est Cr Clr Drug Dosing 123.8 ml/min Est GFR ( Amer) 105.0 Est GFR (Non-Af Amer) 90.6 BUN/Creatinine Ratio 26.9 H (10-20) Glucose 104 H (70-99) mg/dl POC Glucose (70-99) mg/dl POC Glucose (other) (70-99) mg/dl Lactate (0.4-2.0) mmol/L Calcium 9.3 (8.5-10.1) mg/dl POC Ioniz Calcium Loretta (1.12-1.32) mmol/l Phosphorus 1.7 L D (2.5-4.9) mg/dl Magnesium 1.7 L (1.8-2.4) mg/dl Total Bilirubin (0.2-1) mg/dl Direct Bilirubin (0-0.2) mg/dl AST (15-37) U/L ALT (12-78) U/L Alkaline Phosphatase (45-117) U/L Ammonia (11-32) umol/L Troponin I (0-0.045) ng/ml NT-Pro-B Natriuret Pep (0-900) pg/ml Total Protein (6.4-8.2) gm/dl Albumin (3.4-5.0) gm/dl Globulin (2.5-4.0) gm/dl Albumin/Globulin Ratio (0.9-2) Procalcitonin (0-0.5) ng/ml TSH (0.300-4.500) uIu/ml Urine Color Urine Appearance (Clear) Urine pH (4.5-7.5) Ur Specific [place] (1.000-1.030) Urine Protein (Negative) Urine Glucose (UA) (Negative) Urine Ketones (Negative) Urine Blood (Negative) Urine Nitrite (Negative) Urine Bilirubin (Negative) Urine Urobilinogen (Negative) Ur Leukocyte Esterase (Negative) Urine WBC (Auto) (0-5) /hpf Urine RBC (Auto) (0-4) /hpf U Hyaline Cast (Auto) (0-5) /lpf U Epithel Cells (Auto) (0-5) /lpf Urine Bacteria (Auto) (Negative) Granular Casts (0) /lpf Nasal Screen MRSA (PCR) (Negative) Urine Opiates Screen (Neg) Ur Methadone, Qual (Neg) Urine Barbiturates (Neg) Ur Phencyclidine (PCP) (Neg) U Amphetamin/Meth Scrn (Neg) MDMA (Ecstasy) Screen (Neg) U Benzodiazepines Scrn (Neg) Ur Cocaine Metabolite (Neg) U Marijuana (THC) Screen (Neg) COVID-19 Eval Order COVID-19 PCR (Negative) 10/24/19 10/24/19 10/24/19 Range/Units 21:14 16:25 16:21 WBC (4.8-10.8) K/uL RBC (4.2-5.4) M/uL Hgb (12.0-16.0) g/dL POC Hgb (12.0-16.0) g/dl Hct (37-47) % POC Hct (37-47) % MCV (80-100) fL MCH (25-34) pg MCHC (32-36) g/dL RDW Std Deviation (36.4-46.3) fL RDW Coeff of Duy (11.5-14.5) % Plt Count (130-400) K/uL MPV (7.4-10.4) fL Immature Gran % (Auto) % Neut % (Auto) % Lymph % (Auto) % Waldo % (Auto) % Eos % (Auto) % Baso % (Auto) % Neut # (Auto) (1.4-6.5) K/uL Lymph # (Auto) (1.2-3.4) K/uL Waldo # (Auto) (0.11-0.59) K/uL Eos # (Auto) (0-0.5) K/uL Baso # (Auto) (0-0.2) K/uL Immature Gran # (Auto) (0.00-0.02) K/uL Polychromasia Hypochromasia Basophilic Stippling Anisocytosis Stomatocytes PT (9.0-12.0) Seconds INR (0.9-1.1) APTT (21.0-31.0) Seconds PTT Ratio Sample Site L Radial POC pH 7.32 L (7.35-7.45) POC pCO2 85 H (35-46) mmHg POC pO2 53 L (80-95) mmHg POC HCO3 44 H (19-24) cachorro/L POC Base Excess 18.0 H (-9-1.8) cachorro/L ABG pH (7.35-7.45) ABG pH (Temp Correct) (7.35-7.45) ABG pCO2 (35-46) mmHg ABG pCO2 (Temp Corrct (35-46) mmHg ABG pO2 (80-95) mmHg POC ABG pO2 at Pt Temp ABG HCO3 (19-24) mmol/L POC ABG O2 Sat 81.0 L (90-95) % ABG O2 Saturation (90-95) % ABG Base Excess (-9-1.8) mEq/L Bill Test Pass (Pos) VBG pH (7.36-7.41) VBG pCO2 (38-50) mmHg VBG pO2 mmHg VBG HCO3 mmol/L VBG O2 Saturation % VBG Base Excess mEq/L Barometric Pressure mm/Hg Oxygen Given O2 Delivery Device BIPAP POC O2 Rate 18 POC FiO2 30 % IPAP 22 POC Sodium (135-144) mmol/L Sodium (136-145) mmol/L POC Potassium (3.3-5.0) mmol/L Potassium (3.5-5.1) mmol/L POC Chloride (101-112) mmol/L Chloride (98-107) mmol/L Carbon Dioxide (21-32) mmol/L POC Total CO2 > 40 H* (24-31) mmol/L Anion Gap (3-11) POC Anion Gap (16-25) mmol/L POC BUN (7-18) mg/dl BUN (7-18) mg/dl Creatinine (0.6-1.2) mg/dl POC Creatinine (0.6-1.3) mg/dl Est Cr Clr Drug Dosing ml/min Est GFR ( Amer) Est GFR (Non-Af Amer) BUN/Creatinine Ratio (10-20) Glucose (70-99) mg/dl POC Glucose 138 H (70-99) mg/dl POC Glucose (other) (70-99) mg/dl Lactate (0.4-2.0) mmol/L Calcium (8.5-10.1) mg/dl POC Ioniz Calcium Loretta (1.12-1.32) mmol/l Phosphorus (2.5-4.9) mg/dl Magnesium (1.8-2.4) mg/dl Total Bilirubin (0.2-1) mg/dl Direct Bilirubin (0-0.2) mg/dl AST (15-37) U/L ALT (12-78) U/L Alkaline Phosphatase (45-117) U/L Ammonia (11-32) umol/L Troponin I (0-0.045) ng/ml NT-Pro-B Natriuret Pep (0-900) pg/ml Total Protein (6.4-8.2) gm/dl Albumin (3.4-5.0) gm/dl Globulin (2.5-4.0) gm/dl Albumin/Globulin Ratio (0.9-2) Procalcitonin (0-0.5) ng/ml TSH (0.300-4.500) uIu/ml Urine Color Urine Appearance (Clear) Urine pH (4.5-7.5) Ur Specific [place] (1.000-1.030) Urine Protein (Negative) Urine Glucose (UA) (Negative) Urine Ketones (Negative) Urine Blood (Negative) Urine Nitrite (Negative) Urine Bilirubin (Negative) Urine Urobilinogen (Negative) Ur Leukocyte Esterase (Negative) Urine WBC (Auto) (0-5) /hpf Urine RBC (Auto) (0-4) /hpf U Hyaline Cast (Auto) (0-5) /lpf U Epithel Cells (Auto) (0-5) /lpf Urine Bacteria (Auto) (Negative) Granular Casts (0) /lpf Nasal Screen MRSA (PCR) (Negative) Urine Opiates Screen Neg (Neg) Ur Methadone, Qual Neg (Neg) Urine Barbiturates Neg (Neg) Ur Phencyclidine (PCP) Neg (Neg) U Amphetamin/Meth Scrn Neg (Neg) MDMA (Ecstasy) Screen Neg (Neg) U Benzodiazepines Scrn Neg (Neg) Ur Cocaine Metabolite Neg (Neg) U Marijuana (THC) Screen Neg (Neg) COVID-19 Eval Order COVID-19 PCR (Negative) 10/24/19 10/24/19 10/24/19 Range/Units 15:34 15:33 15:30 WBC (4.8-10.8) K/uL RBC (4.2-5.4) M/uL Hgb (12.0-16.0) g/dL POC Hgb 13.3 (12.0-16.0) g/dl Hct (37-47) % POC Hct 39 (37-47) % MCV (80-100) fL MCH (25-34) pg MCHC (32-36) g/dL RDW Std Deviation (36.4-46.3) fL RDW Coeff of Duy (11.5-14.5) % Plt Count (130-400) K/uL MPV (7.4-10.4) fL Immature Gran % (Auto) % Neut % (Auto) % Lymph % (Auto) % Waldo % (Auto) % Eos % (Auto) % Baso % (Auto) % Neut # (Auto) (1.4-6.5) K/uL Lymph # (Auto) (1.2-3.4) K/uL Waldo # (Auto) (0.11-0.59) K/uL Eos # (Auto) (0-0.5) K/uL Baso # (Auto) (0-0.2) K/uL Immature Gran # (Auto) (0.00-0.02) K/uL Polychromasia Hypochromasia Basophilic Stippling Anisocytosis Stomatocytes PT (9.0-12.0) Seconds INR (0.9-1.1) APTT (21.0-31.0) Seconds PTT Ratio Sample Site R Radial POC pH 7.17 L* (7.35-7.45) POC pCO2 > 115 H (35-46) mmHg POC pO2 99 H (80-95) mmHg POC HCO3 44 H (19-24) cachorro/L POC Base Excess 16.0 H (-9-1.8) cachorro/L ABG pH (7.35-7.45) ABG pH (Temp Correct) 7.182 L* (7.35-7.45) ABG pCO2 (35-46) mmHg ABG pCO2 (Temp Corrct 117 H (35-46) mmHg ABG pO2 (80-95) mmHg POC ABG pO2 at Pt Temp 95 ABG HCO3 (19-24) mmol/L POC ABG O2 Sat 94.0 (90-95) % ABG O2 Saturation (90-95) % ABG Base Excess (-9-1.8) mEq/L Bill Test Pass (Pos) VBG pH (7.36-7.41) VBG pCO2 (38-50) mmHg VBG pO2 mmHg VBG HCO3 mmol/L VBG O2 Saturation % VBG Base Excess mEq/L Barometric Pressure mm/Hg Oxygen Given O2 Delivery Device BIPAP POC O2 Rate 15 POC FiO2 50 % IPAP 22 POC Sodium 145 H (135-144) mmol/L Sodium (136-145) mmol/L POC Potassium 3.9 (3.3-5.0) mmol/L Potassium (3.5-5.1) mmol/L POC Chloride (101-112) mmol/L Chloride (98-107) mmol/L Carbon Dioxide (21-32) mmol/L POC Total CO2 > 40 H* (24-31) mmol/L Anion Gap (3-11) POC Anion Gap (16-25) mmol/L POC BUN (7-18) mg/dl BUN (7-18) mg/dl Creatinine (0.6-1.2) mg/dl POC Creatinine (0.6-1.3) mg/dl Est Cr Clr Drug Dosing ml/min Est GFR ( Amer) Est GFR (Non-Af Amer) BUN/Creatinine Ratio (10-20) Glucose (70-99) mg/dl POC Glucose 194 H (70-99) mg/dl POC Glucose (other) (70-99) mg/dl Lactate (0.4-2.0) mmol/L Calcium (8.5-10.1) mg/dl POC Ioniz Calcium Loretta (1.12-1.32) mmol/l Phosphorus (2.5-4.9) mg/dl Magnesium (1.8-2.4) mg/dl Total Bilirubin (0.2-1) mg/dl Direct Bilirubin (0-0.2) mg/dl AST (15-37) U/L ALT (12-78) U/L Alkaline Phosphatase (45-117) U/L Ammonia (11-32) umol/L Troponin I (0-0.045) ng/ml NT-Pro-B Natriuret Pep (0-900) pg/ml Total Protein (6.4-8.2) gm/dl Albumin (3.4-5.0) gm/dl Globulin (2.5-4.0) gm/dl Albumin/Globulin Ratio (0.9-2) Procalcitonin (0-0.5) ng/ml TSH (0.300-4.500) uIu/ml Urine Color Urine Appearance (Clear) Urine pH (4.5-7.5) Ur Specific [place] (1.000-1.030) Urine Protein (Negative) Urine Glucose (UA) (Negative) Urine Ketones (Negative) Urine Blood (Negative) Urine Nitrite (Negative) Urine Bilirubin (Negative) Urine Urobilinogen (Negative) Ur Leukocyte Esterase (Negative) Urine WBC (Auto) (0-5) /hpf Urine RBC (Auto) (0-4) /hpf U Hyaline Cast (Auto) (0-5) /lpf U Epithel Cells (Auto) (0-5) /lpf Urine Bacteria (Auto) (Negative) Granular Casts (0) /lpf Nasal Screen MRSA (PCR) Negative (Negative) Urine Opiates Screen (Neg) Ur Methadone, Qual (Neg) Urine Barbiturates (Neg) Ur Phencyclidine (PCP) (Neg) U Amphetamin/Meth Scrn (Neg) MDMA (Ecstasy) Screen (Neg) U Benzodiazepines Scrn (Neg) Ur Cocaine Metabolite (Neg) U Marijuana (THC) Screen (Neg) COVID-19 Eval Order COVID-19 PCR (Negative) 10/24/19 10/24/19 10/24/19 Range/Units 13:42 13:20 13:20 WBC (4.8-10.8) K/uL RBC (4.2-5.4) M/uL Hgb (12.0-16.0) g/dL POC Hgb (12.0-16.0) g/dl Hct (37-47) % POC Hct (37-47) % MCV (80-100) fL MCH (25-34) pg MCHC (32-36) g/dL RDW Std Deviation (36.4-46.3) fL RDW Coeff of Duy (11.5-14.5) % Plt Count (130-400) K/uL MPV (7.4-10.4) fL Immature Gran % (Auto) % Neut % (Auto) % Lymph % (Auto) % Waldo % (Auto) % Eos % (Auto) % Baso % (Auto) % Neut # (Auto) (1.4-6.5) K/uL Lymph # (Auto) (1.2-3.4) K/uL Waldo # (Auto) (0.11-0.59) K/uL Eos # (Auto) (0-0.5) K/uL Baso # (Auto) (0-0.2) K/uL Immature Gran # (Auto) (0.00-0.02) K/uL Polychromasia Hypochromasia Basophilic Stippling Anisocytosis Stomatocytes PT (9.0-12.0) Seconds INR (0.9-1.1) APTT (21.0-31.0) Seconds PTT Ratio Sample Site POC pH (7.35-7.45) POC pCO2 (35-46) mmHg POC pO2 (80-95) mmHg POC HCO3 (19-24) cachorro/L POC Base Excess (-9-1.8) cachorro/L ABG pH 7.20 L (7.35-7.45) ABG pH (Temp Correct) (7.35-7.45) ABG pCO2 106 H (35-46) mmHg ABG pCO2 (Temp Corrct (35-46) mmHg ABG pO2 74 L (80-95) mmHg POC ABG pO2 at Pt Temp ABG HCO3 41 H (19-24) mmol/L POC ABG O2 Sat (90-95) % ABG O2 Saturation 92.9 (90-95) % ABG Base Excess 9.8 H (-9-1.8) mEq/L Bill Test Pos (Pos) VBG pH (7.36-7.41) VBG pCO2 (38-50) mmHg VBG pO2 mmHg VBG HCO3 mmol/L VBG O2 Saturation % VBG Base Excess mEq/L Barometric Pressure 738.7 mm/Hg Oxygen Given 50% FIO2 O2 Delivery Device POC O2 Rate POC FiO2 % IPAP POC Sodium (135-144) mmol/L Sodium (136-145) mmol/L POC Potassium (3.3-5.0) mmol/L Potassium (3.5-5.1) mmol/L POC Chloride (101-112) mmol/L Chloride (98-107) mmol/L Carbon Dioxide (21-32) mmol/L POC Total CO2 (24-31) mmol/L Anion Gap (3-11) POC Anion Gap (16-25) mmol/L POC BUN (7-18) mg/dl BUN (7-18) mg/dl Creatinine (0.6-1.2) mg/dl POC Creatinine (0.6-1.3) mg/dl Est Cr Clr Drug Dosing ml/min Est GFR ( Amer) Est GFR (Non-Af Amer) BUN/Creatinine Ratio (10-20) Glucose (70-99) mg/dl POC Glucose (70-99) mg/dl POC Glucose (other) (70-99) mg/dl Lactate (0.4-2.0) mmol/L Calcium (8.5-10.1) mg/dl POC Ioniz Calcium Loretta (1.12-1.32) mmol/l Phosphorus (2.5-4.9) mg/dl Magnesium (1.8-2.4) mg/dl Total Bilirubin (0.2-1) mg/dl Direct Bilirubin (0-0.2) mg/dl AST (15-37) U/L ALT (12-78) U/L Alkaline Phosphatase (45-117) U/L Ammonia (11-32) umol/L Troponin I (0-0.045) ng/ml NT-Pro-B Natriuret Pep (0-900) pg/ml Total Protein (6.4-8.2) gm/dl Albumin (3.4-5.0) gm/dl Globulin (2.5-4.0) gm/dl Albumin/Globulin Ratio (0.9-2) Procalcitonin (0-0.5) ng/ml TSH (0.300-4.500) uIu/ml Urine Color Urine Appearance (Clear) Urine pH (4.5-7.5) Ur Specific [place] (1.000-1.030) Urine Protein (Negative) Urine Glucose (UA) (Negative) Urine Ketones (Negative) Urine Blood (Negative) Urine Nitrite (Negative) Urine Bilirubin (Negative) Urine Urobilinogen (Negative) Ur Leukocyte Esterase (Negative) Urine WBC (Auto) (0-5) /hpf Urine RBC (Auto) (0-4) /hpf U Hyaline Cast (Auto) (0-5) /lpf U Epithel Cells (Auto) (0-5) /lpf Urine Bacteria (Auto) (Negative) Granular Casts (0) /lpf Nasal Screen MRSA (PCR) (Negative) Urine Opiates Screen (Neg) Ur Methadone, Qual (Neg) Urine Barbiturates (Neg) Ur Phencyclidine (PCP) (Neg) U Amphetamin/Meth Scrn (Neg) MDMA (Ecstasy) Screen (Neg) U Benzodiazepines Scrn (Neg) Ur Cocaine Metabolite (Neg) U Marijuana (THC) Screen (Neg) COVID-19 Eval Order Covid19 Done at [facility] COVID-19 PCR NEGATIVE (Negative) 10/24/19 10/24/19 10/24/19 Range/Units 12:25 11:56 11:56 WBC (4.8-10.8) K/uL RBC (4.2-5.4) M/uL Hgb (12.0-16.0) g/dL POC Hgb (12.0-16.0) g/dl Hct (37-47) % POC Hct (37-47) % MCV (80-100) fL MCH (25-34) pg MCHC (32-36) g/dL RDW Std Deviation (36.4-46.3) fL RDW Coeff of Duy (11.5-14.5) % Plt Count (130-400) K/uL MPV (7.4-10.4) fL Immature Gran % (Auto) % Neut % (Auto) % Lymph % (Auto) % [place] % (Auto) % Eos % (Auto) % Baso % (Auto) % Neut # (Auto) (1.4-6.5) K/uL Lymph # (Auto) (1.2-3.4) K/uL [place] # (Auto) (0.11-0.59) K/uL Eos # (Auto) (0-0.5) K/uL Baso # (Auto) (0-0.2) K/uL Immature Gran # (Auto) (0.00-0.02) K/uL Polychromasia Hypochromasia Basophilic Stippling Anisocytosis Stomatocytes PT (9.0-12.0) Seconds INR (0.9-1.1) APTT (21.0-31.0) Seconds PTT Ratio Sample Site POC pH (7.35-7.45) POC pCO2 (35-46) mmHg POC pO2 (80-95) mmHg POC HCO3 (19-24) c[place]orro/L POC Base Excess (-9-1.8) [place]/L ABG pH (7.35-7.45) ABG pH (Temp Correct) (7.35-7.45) ABG pCO2 (35-46) mmHg ABG pCO2 (Temp Corrct (35-46) mmHg ABG pO2 (80-95) mmHg POC ABG pO2 at Pt Temp ABG HCO3 (19-24) mmol/L POC ABG O2 Sat (90-95) % ABG O2 Saturation (90-95) % ABG Base Excess (-9-1.8) mEq/L Bill Test (Pos) VBG pH 7.11 L (7.36-7.41) VBG pCO2 136 H (38-50) mmHg VBG pO2 97 mmHg VBG HCO3 43 mmol/L VBG O2 Saturation 95.0 % VBG Base Excess 9.1 mEq/L Barometric Pressure 739.1 mm/Hg Oxygen Given O2 Delivery Device POC O2 Rate POC FiO2 % IPAP POC Sodium (135-144) mmol/L Sodium (136-145) mmol/L POC Potassium (3.3-5.0) mmol/L Potassium (3.5-5.1) mmol/L POC Chloride (101-112) mmol/L Chloride (98-107) mmol/L Carbon Dioxide (21-32) mmol/L POC Total CO2 (24-31) mmol/L Anion Gap (3-11) POC Anion Gap (16-25) mmol/L POC BUN (7-18) mg/dl BUN (7-18) mg/dl Creatinine (0.6-1.2) mg/dl POC Creatinine (0.6-1.3) mg/dl Est Cr Clr Drug Dosing ml/min Est GFR ( Amer) Est GFR (Non-Af Amer) BUN/Creatinine Ratio (10-20) Glucose (70-99) mg/dl POC Glucose (70-99) mg/dl POC Glucose (other) (70-99) mg/dl Lactate (0.4-2.0) mmol/L Calcium (8.5-10.1) mg/dl POC Ioniz Calcium Loretta (1.12-1.32) mmol/l Phosphorus (2.5-4.9) mg/dl Magnesium (1.8-2.4) mg/dl Total Bilirubin (0.2-1) mg/dl Direct Bilirubin (0-0.2) mg/dl AST (15-37) U/L ALT (12-78) U/L Alkaline Phosphatase (45-117) U/L Ammonia 46.0 H (11-32) umol/L Troponin I (0-0.045) ng/ml NT-Pro-B Natriuret Pep (0-900) pg/ml Total Protein (6.4-8.2) gm/dl Albumin (3.4-5.0) gm/dl Globulin (2.5-4.0) gm/dl Albumin/Globulin Ratio (0.9-2) Procalcitonin (0-0.5) ng/ml TSH (0.300-4.500) uIu/ml Urine Color Yellow Urine Appearance Turbid A (Clear) Urine pH 5.0 (4.5-7.5) Ur Specific [place] 1.016 (1.000-1.030) Urine Protein 2+ H (Negative) Urine Glucose (UA) 3+ H (Negative) Urine Ketones Negative (Negative) Urine Blood 2+ H (Negative) Urine Nitrite Positive A (Negative) Urine Bilirubin Negative (Negative) Urine Urobilinogen Negative (Negative) Ur Leukocyte Esterase 2+ H (Negative) Urine WBC (Auto) >30 H (0-5) /hpf Urine RBC (Auto) 0-4 (0-4) /hpf U Hyaline Cast (Auto) 10-30 H (0-5) /lpf U Epithel Cells (Auto) >30 H (0-5) /lpf Urine Bacteria (Auto) 4+ H (Negative) Granular Casts 1-5 H (0) /lpf Nasal Screen MRSA (PCR) (Negative) Urine Opiates Screen (Neg) Ur Methadone, Qual (Neg) Urine Barbiturates (Neg) Ur Phencyclidine (PCP) (Neg) U Amphetamin/Meth Scrn (Neg) MDMA (Ecstasy) Screen (Neg) U Benzodiazepines Scrn (Neg) Ur Cocaine Metabolite (Neg) U Marijuana (THC) Screen (Neg) COVID-19 Eval Order COVID-19 PCR (Negative) 10/24/19 10/24/19 10/24/19 Range/Units 11:56 11:56 11:56 WBC (4.8-10.8) K/uL RBC (4.2-5.4) M/uL Hgb (12.0-16.0) g/dL POC Hgb (12.0-16.0) g/dl Hct (37-47) % POC Hct (37-47) % MCV (80-100) fL MCH (25-34) pg MCHC (32-36) g/dL RDW Std Deviation (36.4-46.3) fL RDW Coeff of Duy (11.5-14.5) % Plt Count (130-400) K/uL MPV (7.4-10.4) fL Immature Gran % (Auto) % Neut % (Auto) % Lymph % (Auto) % Waldo % (Auto) % Eos % (Auto) % Baso % (Auto) % Neut # (Auto) (1.4-6.5) K/uL Lymph # (Auto) (1.2-3.4) K/uL Waldo # (Auto) (0.11-0.59) K/uL Eos # (Auto) (0-0.5) K/uL Baso # (Auto) (0-0.2) K/uL Immature Gran # (Auto) (0.00-0.02) K/uL Polychromasia Hypochromasia Basophilic Stippling Anisocytosis Stomatocytes PT (9.0-12.0) Seconds INR (0.9-1.1) APTT (21.0-31.0) Seconds PTT Ratio Sample Site POC pH (7.35-7.45) POC pCO2 (35-46) mmHg POC pO2 (80-95) mmHg POC HCO3 (19-24) cachorro/L POC Base Excess (-9-1.8) cachorro/L ABG pH (7.35-7.45) ABG pH (Temp Correct) (7.35-7.45) ABG pCO2 (35-46) mmHg ABG pCO2 (Temp Corrct (35-46) mmHg ABG pO2 (80-95) mmHg POC ABG pO2 at Pt Temp ABG HCO3 (19-24) mmol/L POC ABG O2 Sat (90-95) % ABG O2 Saturation (90-95) % ABG Base Excess (-9-1.8) mEq/L Bill Test (Pos) VBG pH (7.36-7.41) VBG pCO2 (38-50) mmHg VBG pO2 mmHg VBG HCO3 mmol/L VBG O2 Saturation % VBG Base Excess mEq/L Barometric Pressure mm/Hg Oxygen Given O2 Delivery Device POC O2 Rate POC FiO2 % IPAP POC Sodium (135-144) mmol/L Sodium 144 (136-145) mmol/L POC Potassium (3.3-5.0) mmol/L Potassium 3.6 (3.5-5.1) mmol/L POC Chloride (101-112) mmol/L Chloride 101 (98-107) mmol/L Carbon Dioxide 40 H (21-32) mmol/L POC Total CO2 (24-31) mmol/L Anion Gap 2.0 L (3-11) POC Anion Gap (16-25) mmol/L POC BUN (7-18) mg/dl BUN 17 (7-18) mg/dl Creatinine 0.81 (0.6-1.2) mg/dl POC Creatinine (0.6-1.3) mg/dl Est Cr Clr Drug Dosing 102.1 ml/min Est GFR ( Amer) 85.9 Est GFR (Non-Af Amer) 74.1 BUN/Creatinine Ratio 20.8 H (10-20) Glucose 177 H (70-99) mg/dl POC Glucose (70-99) mg/dl POC Glucose (other) (70-99) mg/dl Lactate 1.2 (0.4-2.0) mmol/L Calcium 9.4 (8.5-10.1) mg/dl POC Ioniz Calcium Loretta (1.12-1.32) mmol/l Phosphorus 3.7 (2.5-4.9) mg/dl Magnesium 2.1 (1.8-2.4) mg/dl Total Bilirubin 0.3 (0.2-1) mg/dl Direct Bilirubin < 0.1 (0-0.2) mg/dl AST 14 L (15-37) U/L ALT 15 (12-78) U/L Alkaline Phosphatase 99 (45-117) U/L Ammonia (11-32) umol/L Troponin I 0.015 (0-0.045) ng/ml NT-Pro-B Natriuret Pep 1542 H (0-900) pg/ml Total Protein 7.4 (6.4-8.2) gm/dl Albumin 3.2 L (3.4-5.0) gm/dl Globulin 4.2 H (2.5-4.0) gm/dl Albumin/Globulin Ratio 0.8 L (0.9-2) Procalcitonin 0.33 (0-0.5) ng/ml TSH 0.745 (0.300-4.500) uIu/ml Urine Color Urine Appearance (Clear) Urine pH (4.5-7.5) Ur Specific [place] (1.000-1.030) Urine Protein (Negative) Urine Glucose (UA) (Negative) Urine Ketones (Negative) Urine Blood (Negative) Urine Nitrite (Negative) Urine Bilirubin (Negative) Urine Urobilinogen (Negative) Ur Leukocyte Esterase (Negative) Urine WBC (Auto) (0-5) /hpf Urine RBC (Auto) (0-4) /hpf U Hyaline Cast (Auto) (0-5) /lpf U Epithel Cells (Auto) (0-5) /lpf Urine Bacteria (Auto) (Negative) Granular Casts (0) /lpf Nasal Screen MRSA (PCR) (Negative) Urine Opiates Screen (Neg) Ur Methadone, Qual (Neg) Urine Barbiturates (Neg) Ur Phencyclidine (PCP) (Neg) U Amphetamin/Meth Scrn (Neg) MDMA (Ecstasy) Screen (Neg) U Benzodiazepines Scrn (Neg) Ur Cocaine Metabolite (Neg) U Marijuana (THC) Screen (Neg) COVID-19 Eval Order COVID-19 PCR (Negative) 10/24/19 10/24/19 10/24/19 Range/Units 11:56 11:56 11:43 WBC 9.68 (4.8-10.8) K/uL RBC 4.45 (4.2-5.4) M/uL Hgb 10.9 L (12.0-16.0) g/dL POC Hgb 11.6 L (12.0-16.0) g/dl Hct 41.2 (37-47) % POC Hct 34 L (37-47) % MCV 92.6 (80-100) fL MCH 24.5 L (25-34) pg MCHC 26.5 L (32-36) g/dL RDW Std Deviation 67.9 H (36.4-46.3) fL RDW Coeff of Duy 20.1 H (11.5-14.5) % Plt Count 121 L (130-400) K/uL MPV 11.3 H (7.4-10.4) fL Immature Gran % (Auto) 1.9 % Neut % (Auto) 81.3 % Lymph % (Auto) 8.9 % Waldo % (Auto) 6.8 % Eos % (Auto) 1.0 % Baso % (Auto) 0.1 % Neut # (Auto) 7.87 H (1.4-6.5) K/uL Lymph # (Auto) 0.86 L (1.2-3.4) K/uL Waldo # (Auto) 0.66 H (0.11-0.59) K/uL Eos # (Auto) 0.10 (0-0.5) K/uL Baso # (Auto) 0.01 (0-0.2) K/uL Immature Gran # (Auto) 0.18 H (0.00-0.02) K/uL Polychromasia 1+ Hypochromasia Present Basophilic Stippling 1+ Anisocytosis Present Stomatocytes 1+ PT 11.4 (9.0-12.0) Seconds INR 1.1 (0.9-1.1) APTT 29.3 (21.0-31.0) Seconds PTT Ratio 1.1 Sample Site POC pH (7.35-7.45) POC pCO2 (35-46) mmHg POC pO2 (80-95) mmHg POC HCO3 (19-24) cachorro/L POC Base Excess (-9-1.8) cachorro/L ABG pH (7.35-7.45) ABG pH (Temp Correct) (7.35-7.45) ABG pCO2 (35-46) mmHg ABG pCO2 (Temp Corrct (35-46) mmHg ABG pO2 (80-95) mmHg POC ABG pO2 at Pt Temp ABG HCO3 (19-24) mmol/L POC ABG O2 Sat (90-95) % ABG O2 Saturation (90-95) % ABG Base Excess (-9-1.8) mEq/L Bill Test (Pos) VBG pH (7.36-7.41) VBG pCO2 (38-50) mmHg VBG pO2 mmHg VBG HCO3 mmol/L VBG O2 Saturation % VBG Base Excess mEq/L Barometric Pressure mm/Hg Oxygen Given O2 Delivery Device POC O2 Rate POC FiO2 % IPAP POC Sodium 145 H (135-144) mmol/L Sodium (136-145) mmol/L POC Potassium 3.6 (3.3-5.0) mmol/L Potassium (3.5-5.1) mmol/L POC Chloride 101 (101-112) mmol/L Chloride (98-107) mmol/L Carbon Dioxide (21-32) mmol/L POC Total CO2 35 H (24-31) mmol/L Anion Gap (3-11) POC Anion Gap 14.0 L (16-25) mmol/L POC BUN 21 H (7-18) mg/dl BUN (7-18) mg/dl Creatinine (0.6-1.2) mg/dl POC Creatinine 0.7 (0.6-1.3) mg/dl Est Cr Clr Drug Dosing ml/min Est GFR ( Amer) Est GFR (Non-Af Amer) BUN/Creatinine Ratio (10-20) Glucose (70-99) mg/dl POC Glucose (70-99) mg/dl POC Glucose (other) 172 H (70-99) mg/dl Lactate (0.4-2.0) mmol/L Calcium (8.5-10.1) mg/dl POC Ioniz Calcium Loretta 1.15 (1.12-1.32) mmol/l Phosphorus (2.5-4.9) mg/dl Magnesium (1.8-2.4) mg/dl Total Bilirubin (0.2-1) mg/dl Direct Bilirubin (0-0.2) mg/dl AST (15-37) U/L ALT (12-78) U/L Alkaline Phosphatase (45-117) U/L Ammonia (11-32) umol/L Troponin I (0-0.045) ng/ml NT-Pro-B Natriuret Pep (0-900) pg/ml Total Protein (6.4-8.2) gm/dl Albumin (3.4-5.0) gm/dl Globulin (2.5-4.0) gm/dl Albumin/Globulin Ratio (0.9-2) Procalcitonin (0-0.5) ng/ml TSH (0.300-4.500) uIu/ml Urine Color Urine Appearance (Clear) Urine pH (4.5-7.5) Ur Specific [place] (1.000-1.030) Urine Protein (Negative) Urine Glucose (UA) (Negative) Urine Ketones (Negative) Urine Blood (Negative) Urine Nitrite (Negative) Urine Bilirubin (Negative) Urine Urobilinogen (Negative) Ur Leukocyte Esterase (Negative) Urine WBC (Auto) (0-5) /hpf Urine RBC (Auto) (0-4) /hpf U Hyaline Cast (Auto) (0-5) /lpf U Epithel Cells (Auto) (0-5) /lpf Urine Bacteria (Auto) (Negative) Granular Casts (0) /lpf Nasal Screen MRSA (PCR) (Negative) Urine Opiates Screen (Neg) Ur Methadone, Qual (Neg) Urine Barbiturates (Neg) Ur Phencyclidine (PCP) (Neg) U Amphetamin/Meth Scrn (Neg) MDMA (Ecstasy) Screen (Neg) U Benzodiazepines Scrn (Neg) Ur Cocaine Metabolite (Neg) U Marijuana (THC) Screen (Neg) COVID-19 Eval Order COVID-19 PCR (Negative) Medications Administered Current Inpatient Medications Albuterol (Albut/Ipratrop 3mg/0.5mg Neb 3 Ml Vial) 3 ml NEB Q4R WALDO Stop: 11/23/19 18:59 Last Admin: 10/25/19 06:58 Dose: Not Given Documented by: Budesonide (Budesonide 0.25 Mg/2 Ml Vial (Pulmicort)) 0.25 mg NEB BIDR WALDO Stop: 11/23/19 18:59 Last Admin: 10/25/19 06:57 Dose: 0.25 mg Documented by: Diclofenac Sodium (Diclofenac Sod 1% Gel 100 Gm Tube) 2 gm EXT Q8H WALDO Stop: 11/24/19 08:14 Enoxaparin Sodium (Enoxaparin Inj 40 Mg/0.4 Ml Syr) 40 mg SQ QAM WALDO Stop: 11/25/19 08:59 Formoterol Fumarate (Formoterol 20 Mcg/2 Ml Vial) 20 mcg INH BIDR WALDO Stop: 11/23/19 18:59 Last Admin: 10/25/19 06:57 Dose: 20 mcg Documented by: Furosemide 40 mg/ Syringe 4 mls @ 4 mls/min IV DAILY WALDO Stop: 11/24/19 08:59 Potassium Phosphate 21 mmol/ (Sodium Chloride) 507 mls @ 140 mls/hr IV ONE ONE Stop: 10/25/19 10:07 Last Admin: 10/25/19 06:34 Dose: 140 mls/hr Documented by: Magnesium Sulfate/Dextrose (Magnesium Sulfate / D5w) 1 gm in 100 mls @ 50 mls/hr IV 0830 ONE Stop: 10/25/19 10:29 Potassium Phosphate 21 mmol/ (Sodium Chloride) 507 mls @ 145 mls/hr IV 1030 ONE Stop: 10/25/19 13:59 Miscellaneous (Icu Protocol For Hyperglycemia) 1 ea N/A PRN PRN; Protocol PRN Reason: Hyperglycemia Protocol Stop: 10/26/19 15:44 Pantoprazole Sodium (Pantoprazole 40 Mg Tab) 40 mg PO QAM [facility] Stop: 11/24/19 08:59 Resident Activity Tracking Resident Involvement: Resident Care Provided Care Provided: Adult Hospital Medicine (Critical Care)
[2019-10-25] MEDS: PANTOprazole 40 MG TAB PO SCH (08:57)
[2019-10-25] MEDS: DICLOFENAC SOD 1% GEL 100 GM TUBE EXT SCH ×3 (08:58→23:23)
[2019-10-25] MEDS: FUROSEMIDE 40 MG in SYRINGE 0 ML IV SCH (09:14)
[2019-10-25] MEDS ORDERED: POTASSIUM CHLORIDE CRTAB 20 MEQ TABCR PO STA (09:46)
[2019-10-25] MEDS ORDERED: PHARMACY GLYCEMIC MGMT CONSULT SCH (09:59)
--- NOTE | 2019-10-25 10:51 | Billing Data ---
Date of Service October 25, 2019 Coding Level of Care Code Critical Care 1st 30-74 mins Time Spent (min) 32
--- NOTE | 2019-10-25 10:51 | Pharmacy Report ---
Pharmacy Glycemic Short Note 2 - Date of Service October 25, 2019 - Glycemic Short BSG Results (Last 24 hours): 10/24/19 10/24/19 10/24/19 11:43 11:56 15:34 Glucose 177 H POC Glucose 194 H POC Glucose (other) 172 H 10/24/19 10/25/19 21:14 04:43 Glucose 104 H POC Glucose 138 H POC Glucose (other) OUTPATIENT ANTIDIABETIC REGIMEN: * Tresiba (insulin degludec) 67 units w/ lunch + 67 units dinner * Regular insulin 70 w/ breakfast + 30 w/ lunch + 40 w/ dinner * Metformin ER 2000mg daily? * A1c = 5.4% 07/09/19 ASSESSMENT: * Type 2 diabetic admitted for acute on chronic hypercarbic resp failure * Patient is known to Glycemic Control Service from multiple prior admissions * She is highly insulin resistant, requiring > 200 units of insulin per day on a routine basis. * Her allergies to Lantus & Levemir have led to the use of NPH on prior admissions with fairly good control. Her out-pt Tresiba is not-stock due to non-formulary status. * Will begin NPH TID w/ meals, dosed per scale as done in the past. * Novolog CF and CR will be based upon total daily insulin requirements and past experience PLAN FOR INPATIENT GLYCEMIC CONTROL: * Hold outpatient oral diabetes medications * Basal insulin * NPH TID w/ meals per scale: * 0 units if BSG less than 110 * 30 units if BSG 110-139 * 40 units if BSG 141-180 * 50 units if BSG above 180 * Bolus insulin * NovoLog per scale ACHS or Q6hrs while NPO * Goal Range: Low 120 mg/dL - High 150 mg/dL * Correction Factor: 8 mg/dL/unit * Nutritional / Prandial insulin per carb ratio of 1 unit per 3 grams CHO consumed PLAN FOR DISCHARGE: * Will recheck A1c this admission, but I suspect resuming out-pt regimen would be reasonable if she is not experiencing hypoglycemic events
[2019-10-25] MEDS: INSULIN ASPART 100 UNITS/ML 3 ML PEN SC SCH ×3 (11:45→20:42)
[2019-10-25] MEDS: INSULIN HUMAN NPH SC SCH ×2 (11:45→16:37)
[2019-10-25 16:18] LABS: BUN Creatinine Ratio 26.6 (10-20); Calcium 8.9 mg/dl (8.5-10.1); Creatinine Clr Calc Pharmacy 114.2 ml/min; Est GFR (African American) 102.9; Est GFR (Non-African American) 88.8; Potassium 4.2 mmol/L (3.5-5.1)
--- NOTE | 2019-10-25 16:21 | Hospitalist Progress Note ---
Date of Service October 25, 2019 Assessment & Plan (1) Acute on chronic respiratory failure with hypoxia and hypercapnia: Patient is a 68 yr female with H/O Obesity hypoventilation syndrome, chronic hypercapnic respiratory failure on 4L O2 NC during day and NIV HS, COPD, Insulin-dependent DM II with polyneuropathy, chronic diastolic heart failure, Paroxysmal SVT, Left thalamic CVA, HTN, obesity and other problems presents with lethargy x2 days. Acute on chronic respiratory failure with Hypoxia/hypercapnia Acute respiratory distress Metabolic alkalosis Acute metabolic encephalopathy Chronic oxygen dependency--on 4 liters at baseline Likely secondary to Non compliance with Trilogy /Medications ; Obesity Hypoventilation could have contributed -CT Head:Motion degraded exam without acute intracranial abnormality identified. Unchanged large right mastoid effusion. COVID 19 PCR: Negative Normal TSH, Procalcitonin -Continue BiPAP, supplemental oxygen -Trilogy to be used regularly during sleep irrespective of time -Appreciate Critical Care Input -Plan to start on acetazolamide 250 mg twice daily for 6 doses tomorrow -Monitor pH while on acetazolamide -Continue nebs, Pulmicort --Mental status improved (2) Metabolic encephalopathy: (3) Respiratory acidosis: as above Possible UTI Vs Colonization Abnormal UA No signs of sepsis Urine culture pending Lateral hip pain Likely trochanteric bursitis Tylenol, diclofenac gel PT/OT eval as able Hypokalemia Hypophosphatemia Hypomagnesemia Replete electrolytes as needed (4) CHF (congestive heart failure): Acute on chronic diastolic heart failure [id number] On lasix Monitor Volume status/ I/Os (5) Abnormal urinalysis: as above (6) Diabetes mellitus, type II: Insulin dependent. Glycemic pharmacy consulted Monitor blood glucose levels Continue insulin therapy (7) Hypertension: Metoprolol held BP stable Monitor DVT Px: SQ Lovenox Code status: FULL Disposition: To be determined Admission and Anticipated Discharge Date Admission Date: October 24, 2019 Subjective Patient is seen and examined at bedside F currently on BiPAP Reports left hip pain since many days Denies chest pain, shortness of breath, dizziness, nausea, abdominal pain Offers no other complaints Review of Systems Review of Systems: All systems reviewed & are unremarkable except as noted in HPI & below Physical Exam Physical Exam: Physical Exam: Vitals signs as noted above General Appearance:Morbidly Obese, no apparent distress Head: normocephalic, Atraumatic Eyes: normal inspection, EOMI Neck: supple, Trachea midline Respiratory/Chest: Decreased breath sounds, CTA Cardiovascular: S1, S2, No murmur Abdomen/GI:Soft, Non tender, Bowel sounds present Extremities/Musculoskelatal:normal inspection, B/L LE edema Neurologic/Psych:AAOX3, grossly no focal neurological deficits Skin: normal color, warm Results & Data Results & Data ([facility]) Vital Signs (Past 12 Hours) Vital Signs Temp Pulse Pulse Resp BP Pulse Ox 10/25/19 15:02 66 26 H 96 10/25/19 15:01 66 26 H 96 10/25/19 13:28 74 23 90 10/25/19 11:26 75 32 H 131/47 L 93 10/25/19 10:36 68 29 H 99/33 L 91 10/25/19 10:26 72 36 H 90/33 L 92 10/25/19 10:23 71 27 H 91 10/25/19 10:20 69 27 H 91 10/25/19 09:40 74 27 H 94 10/25/19 09:26 83 31 H 156/58 H 94 10/25/19 08:26 82 31 H 138/61 95 10/25/19 08:00 37.4 C 10/25/19 07:26 76 38 H 119/72 92 10/25/19 07:03 71 25 H 95 10/25/19 07:01 75 25 H 95 10/25/19 06:26 80 26 H 147/72 H 97 10/25/19 06:00 83 26 H 97 10/25/19 05:38 71 30 H 95 10/25/19 05:32 78 25 H 105/67 95 10/25/19 04:26 82 27 H 123/52 L 91 10/25/19 04:00 37.8 C H 85 26 H 94 Laboratory Results Short CBC 10/25/19 Range/Units 04:43 WBC 7.33 (4.8-10.8) K/uL Hgb 9.8 L (12.0-16.0) g/dL Hct 35.1 L (37-47) % Plt Count 115 L (130-400) K/uL BMP 10/25/19 04:43 Sodium 143 Potassium 3.3 L Chloride 100 Carbon Dioxide 40 H BUN 17 Creatinine 0.65 Glucose 104 H Calcium 9.3
[2019-10-25] MEDS ORDERED: IRON SUCROSE 200 MG in 0.9 % SODIUM CHLORIDE 100 ML IV ONE (18:00)
[2019-10-25] MEDS ORDERED: ACETAMINOPHEN 325 MG TAB PO PRN (20:05)
[2019-10-25] MEDS ORDERED: traMADol HCL 50 MG TABLET PO PRN (20:05)
[2019-10-25] MEDS: ursodioL 300 MG CAP PO SCH (20:40)
[2019-10-25] MEDS: SIMVASTATIN 20 MG TAB PO SCH (20:40)
[2019-10-25] MEDS: MONTELUKAST SODIUM 10 MG TABLET PO SCH (20:40)
[2019-10-25] MEDS: NORTRIPTYLINE HCL 10 MG CAP PO SCH (20:41)
[2019-10-25] MEDS: DULoxetine HCL 30 MG CAP PO SCH (20:41)
[2019-10-25] MEDS: traMADol HCL 50 MG TABLET PO PRN (21:59)
[2019-10-26] MEDS ORDERED: INSULIN ASPART 100 UNITS/ML 3 ML PEN SC ONE (02:00)
[2019-10-26] MEDS: ALBUT/IPRATROP 3MG/0.5MG NEB 3 ML VIAL NEB SCH ×6 (03:06→22:54)
[2019-10-26] MEDS: LEVOTHYROXINE SODIUM 100 MCG TABLET PO SCH (05:39)
[2019-10-26] MEDS: FORMOTEROL 20 MCG/2 ML VIAL INH SCH ×2 (06:52→19:11)
[2019-10-26] MEDS: BUDESONIDE 0.25 MG/2 ML VIAL (PULMICORT) NEB SCH ×2 (06:52→19:11)
[2019-10-26 07:51] LABS: Base Excess ABG 13.7 mEq/L (-9-1.8); HCO3 ABG 40 mmol/L (19-24); Oxygen Saturation ABG 92.6 % (90-95); PCO2 ABG 57 mmHg (35-46); PO2 ABG 69 mmHg (80-95); pH ABG 7.46 (7.35-7.45)
[2019-10-26 07:52] LABS: Allen Test Pos (Pos)
[2019-10-26 07:57] LABS: Hematocrit (blood only) 34.8 % (37-47); Mean Corpuscular Hemoglobin 24.7 pg (25-34); Mean Corpuscular Hgb Conc 28.7 g/dL (32-36); Mean Corpuscular Volume 85.9 fL (80-100); Mean Platelet Volume 10.1 fL (7.4-10.4); RDW Standard Deviation 63.2 fL (36.4-46.3); Red Blood Count 4.05 M/uL (4.2-5.4); White Blood Count 5.22 K/uL (4.8-10.8)
[2019-10-26] MEDS: DULoxetine HCL 30 MG CAP PO SCH ×2 (08:00→19:48)
[2019-10-26] MEDS: FUROSEMIDE 40 MG in SYRINGE 0 ML IV SCH (08:00)
[2019-10-26] MEDS: PANTOprazole 40 MG TAB PO SCH (08:00)
[2019-10-26] MEDS: ursodioL 300 MG CAP PO SCH ×2 (08:00→19:48)
[2019-10-26] MEDS: DICLOFENAC SOD 1% GEL 100 GM TUBE EXT SCH ×3 (08:00→23:42)
[2019-10-26] MEDS: INSULIN HUMAN NPH SC SCH ×3 (08:02→17:00)
[2019-10-26 08:21] LABS: Platelet Count 91 K/uL (130-400); Platelet Estimate Decreased (Normal)
[2019-10-26 08:26] LABS: BUN Creatinine Ratio 27.7 (10-20); Calcium 8.7 mg/dl (8.5-10.1); Creatinine Clr Calc Pharmacy 136.7 ml/min; Magnesium 2.1 mg/dl (1.8-2.4); Phosphorus 3.6 mg/dl (2.5-4.9); Potassium 3.3 mmol/L (3.5-5.1)
[2019-10-26] MEDS ORDERED: POTASSIUM CHLORIDE CRTAB 20 MEQ TABCR PO ONE (08:37)
[2019-10-26] MEDS ORDERED: ENOXAPARIN INJ 40 MG/0.4 ML SYR SQ SCH (09:00)
[2019-10-26] MEDS: INSULIN ASPART 100 UNITS/ML 3 ML PEN SC SCH ×4 (09:26→21:09)
--- NOTE | 2019-10-26 11:24 | Pharmacy Report ---
Pharmacy Glycemic Short Note 2 - Date of Service October 26, 2019 - Glycemic Short BSG Results (Last 24 hours): 10/25/19 10/25/19 10/25/19 15:13 16:30 20:13 Glucose 145 H POC Glucose 145 H 101 H 10/26/19 10/26/19 10/26/19 02:08 07:25 07:39 Glucose 76 POC Glucose 81 78 OUTPATIENT ANTIDIABETIC REGIMEN: * Tresiba (insulin degludec) 67 units w/ lunch + 67 units dinner * Regular insulin 70 w/ breakfast + 30 w/ lunch + 40 w/ dinner * Metformin ER 2000mg daily? * A1c = 5.4% 07/09/19 ASSESSMENT: 10/25: * Pt has received 99 units of insulin over the past 24hrs * 80 units of basal insulin with NPH + 19 units of prandial with NovoLog * This is significantly less as compared to previous admissions d/t increase somnolence and decreased PO intake * BSGs [id number] mg/dl * AM fasting BSG is slightly below goal range at 78 mg/dl. NPH will be held this AM per scale * Post-prandial BSGs are in goal range - no change needed to CF/CR 10/24: * Type 2 diabetic admitted for acute on chronic hypercarbic resp failure * Patient is known to Glycemic Control Service from multiple prior admissions * She is highly insulin resistant, requiring > 200 units of insulin per day on a routine basis. * Her allergies to Lantus & Levemir have led to the use of NPH on prior admissions with fairly good control. Her out-pt Tresiba is not-stock due to non-formulary status. * Will begin NPH TID w/ meals, dosed per scale as done in the past. * Novolog CF and CR will be based upon total daily insulin requirements and past experience PLAN FOR INPATIENT GLYCEMIC CONTROL: no changes needed today - scale based dosing will adjust NPH based on BSG * Hold outpatient oral diabetes medications * Basal insulin * NPH TID w/ meals per scale: * 0 units if BSG less than 110 * 30 units if BSG 110-139 * 40 units if BSG 141-180 * 50 units if BSG above 180 * Bolus insulin * NovoLog per scale ACHS or Q6hrs while NPO * Goal Range: Low 120 mg/dL - High 150 mg/dL * Correction Factor: 8 mg/dL/unit * Nutritional / Prandial insulin per carb ratio of 1 unit per 3 grams CHO consumed PLAN FOR DISCHARGE: * Will recheck A1c this admission, but I suspect resuming out-pt regimen would be reasonable if she is not experiencing hypoglycemic events
--- NOTE | 2019-10-26 15:42 | Cardiology Consultation ---
Date of Consultation October 26, 2019 Assessment & Plan (1) Acute on chronic respiratory failure with hypoxia and hypercapnia: Patient's PCO2 is obtained with arterial blood gas this morning at 7:39 AM was down to 57 mmHg, which improved compared to previous. She appears to be responding well to positive pressure ventilation. Now her heart rate is stable. I do see the brief episodes of sinus bradycardia, but her blood pressure has remained stable with these heart rates. Would be interesting to observe her sleep status, and whether or not she is wearing her positive pressure ventilation with these episodes occur. She is typically on metoprolol succinate on a chronic basis for past history of SVT. Her other comorbidities certainly place her at risk for atrial arrhythmias. But I think in an effort to simplify her medication list is completely reasonable to hold this for now, although her intermittent bradycardia is not felt to be a contraindication to this medication if tachycardia becomes an issue moving forward again in the future. Agree with ongoing diuretics with furosemide. Agree with Lovenox 40 mg subcu daily, although we may need to consider dose adjusting this given her body mass index. History of Present Illness Attending Physician: Fred Rowan MD History of Present Illness Ms Ramon is a 68 year old female seen in cardiology consultation per the request of Dr. Rowan for the evaluation of intermittent bradycardia and diastolic heart failure. The patient was admitted on 10/24/2019 for lethargy x2 days. On initial evaluation her pulse oximetry was in the 80s. An arterial blood gas at that time pH of 7.2 and a PCO2 level of 106. Patient was admitted to the intensive care unit supported with noninvasive positive pressure ventilation improvement in her mentation. She had also received diuretic therapy for interstitial edema. Currently on telemetry sinus rhythm with occasional premature atrial contractions noted with heart rates in the range of 70s to 80 bpm. Yesterday and again today on telemetry she has brief intermittent episodes of sinus bradycardia in the 40 bpm range, the most recent of which had been at 12:49 PM. Patient has a past history of heart failure with preserved ejection fraction, with most significant issue of obesity hypoventilation syndrome, body mass index 52 kg/m. Most recent echocardiogram in June 2019 revealed moderate concentric left ventricular hypertrophy with no left ventricular regional wall motion abnormalities, hyperdynamic LVEF greater than 70%, grade 1 diastolic d ysfunction. The right ventricular systolic function was noted to be normal at that time. EKG this admission 10/24/2019 revealed sinus rhythm at 96 bpm nonspecific repolarization changes. Allergies Allergy/AdvReac Type Severity Reaction Status Date / Time fluoxetine Allergy Severe ANAPHYLAXIS Verified 07/10/19 00:35 Insulins Allergy Severe LANTUS/LEVEMIR- Verified 07/10/19 00:35 HIVES/THROAT SWELLING moxifloxacin Allergy Severe HIVES Verified 07/10/19 00:35 nitrofurantoin Allergy Severe HIVES Verified 07/10/19 00:35 paroxetine Allergy Severe HIVES Verified 07/10/19 00:35 Quinolones Allergy Severe AVELOX & Verified 07/10/19 00:35 LEVAQUIN-HIVES amitriptyline Allergy Intermediate Sweats and Verified 07/10/19 00:35 itching buspirone Allergy Intermediate HIVES Verified 07/10/19 00:35 cephalexin Allergy Intermediate Hives Verified 07/10/19 00:35 citalopram Allergy Intermediate HIVES-RASH Verified 07/10/19 00:35 escitalopram Allergy Intermediate HIVES-RASH Verified 07/10/19 00:35 levofloxacin Allergy Intermediate Hives Verified 07/10/19 00:35 methadone Allergy Intermediate HIVES Verified 07/10/19 00:35 Penicillins Allergy Intermediate RASH,HIVES Verified 07/10/19 00:35 Serotonin 5HT-3 Antagonists Allergy Intermediate MIGRAINES Verified 07/10/19 00:35 TO SSRIs trazodone Allergy Intermediate BLOODY Verified 07/10/19 00:35 NOSE, HEADACHES,HIVES vancomycin Allergy Intermediate HIVES Verified 07/10/19 00:35 prednisone Allergy Mild CHEST Verified 07/10/19 00:35 TIGHTNESS carbamazepine Allergy Unknown HIVES-RASH- Verified 07/10/19 00:35 ITCHINESS cefepime Allergy Unknown face & arm Verified 07/10/19 00:35 redness/itching after 2nd or 3rd dose cefepime ceftriaxone Allergy Unknown Received Verified 07/10/19 00:35 in MTU (but needed benadryl for course of therapy Cipro Allergy Unknown ABD PAINS Verified 09/08/17 09:10 ciprofloxacin Allergy Unknown ABD PAINS Verified 07/10/19 00:35 sertraline Allergy Unknown UNKNOWN Verified 07/10/19 00:35 sitagliptin Allergy Unknown HIVES Verified 07/10/19 00:35 azithromycin Allergy Hives Verified 05/26/20 00:35 Cephalosporins Allergy Hives Verified 07/10/19 00:35 [facility] Allergy Unknown Verified 07/10/19 00:35 Tetracyclines AdvReac Severe HIVES Verified 07/10/19 00:35 Sulfa (Sulfonamide AdvReac Intermediate MIGRAINES Verified 07/10/19 00:35 Antibiotics) fexofenadine AdvReac Mild GI SYMPTOMS Verified 07/10/19 00:35 tizanidine AdvReac Mild ITCHING-HIV Verified 07/10/19 00:35 ES gentamicin AdvReac Unknown UNKNOWN Verified 07/10/19 00:35 lorazepam AdvReac Unknown Verified 07/10/19 00:35 blood Allergy Severe Anaphylaxis Uncoded 10/25/19 07:53 Home Medications Home Medications Medication Instructions Recorded Confirmed Type baclofen 5 mg PO HS 10/24/19 10/24/19 History celecoxib [Celebrex] 200 mg PO DAILY PRN 10/24/19 10/24/19 History cyanocobalamin (vitamin B-12) 1,000 mcg PO DAILY 10/24/19 10/24/19 History [Vitamin B-12] duloxetine 30 mg PO BID 10/24/19 10/24/19 History xeldfqeepuw-xhabgoigs-lkrktjas 1 inh INHALATION DAILY 10/24/19 10/24/19 History [Trelegy Ellipta] furosemide 40 mg PO DAILY PRN 10/24/19 10/24/19 History insulin degludec [Tresiba 67 unit SUBCUT UD 10/24/19 10/24/19 History FlexTouch U-200] insulin regular human [Novolin R 0 unit SUBCUT UD 10/24/19 10/24/19 History Regular U-100 Insuln] levothyroxine 100 mcg PO DAILYBB 10/24/19 10/24/19 History metformin 2,000 mg PO DAILY 10/24/19 10/24/19 History metoprolol succinate 25 mg PO DAILY 10/24/19 10/24/19 History montelukast 10 mg PO HS 10/24/19 10/24/19 History nortriptyline 10 mg PO HS 10/24/19 10/24/19 History nystatin [Nyamyc] 1 applic TOPICAL TID 10/24/19 10/24/19 History pantoprazole 40 mg PO DAILYBB 10/24/19 10/24/19 History pregabalin 200 mg PO TID 10/24/19 10/24/19 History simvastatin 20 mg PO HS 10/24/19 10/24/19 History sumatriptan succinate 100 mg PO UD 10/24/19 10/24/19 History ursodiol 600 mg PO BID 10/24/19 10/24/19 History Patient History Medical History Cerebrovascular disease "history left thalamic stroke" Chronic hypercapnic respiratory failure Chronic pain disorder (01/24/14) COPD (chronic obstructive pulmonary disease) CVA (cerebral vascular accident) hx of L thalamus CVA Diabetes mellitus, type II Dyslipidemia HLD (hyperlipidemia) Hypertension Hypertension Hypertrophic cardiomyopathy Hypothyroidism Morbid obesity Obesity hypoventilation syndrome JOSE (obstructive sleep apnea) Recurrent UTI Surgical History H/O partial nephrectomy History of tonsillectomy Hx of nasal septoplasty S/P dilatation and curettage Status post tonsillectomy Family History Father Coronary heart disease Mother Diabetes Social History Smoking Status: Unknown if ever smoked Second Hand Exposure: No; Preferred Language: Andorran Communication Ability: Effective Campus Security Officer Required: No Beliefs That Will Affect Care: None marital status: Current Living Situation: Spouse Current Living Situation Comment: living at home with Other Information That Helps Us Care for You: No Feels Safe at Home: Yes Physical Exam Physical Exam: Temp Pulse Resp BP Pulse Ox 36.5 C 81 18 137/63 97 10/26/19 12:03 10/26/19 15:08 10/26/19 15:08 10/26/19 12:03 10/26/19 15:08 Constitutional: WD/WN, vitals as above Respiratory: Exam technically limited due to body habitus Cardiovascular: Extremities: + edema (Trace to 1+ lower extremity edema) Heart sounds not audible Gastrointestinal (Abdomen): normal bowel sounds, soft, nontender, no hepatosplenomegaly Neurologic: Awake oriented, follows commands Results & Data ([facility]) Vital Signs (Past 12 Hours) Vital Signs Temp Pulse Resp BP BP Pulse Ox 10/26/19 15:08 81 18 97 10/26/19 12:03 36.5 C 79 18 137/63 96 10/26/19 11:14 89 20 91 10/26/19 07:55 36.8 C 86 18 158/76 H 95 10/26/19 06:53 81 20 95 10/26/19 03:33 36.6 C 84 18 169/68 H 94 Laboratory Results CBC 10/26/19 Range/Units 07:39 WBC 5.22 (4.8-10.8) K/uL RBC 4.05 L (4.2-5.4) M/uL Hgb 10.0 L (12.0-16.0) g/dL Hct 34.8 L (37-47) % Plt Count 91 L (130-400) K/uL Comprehensive Metabolic Panel 10/25/19 10/26/19 Range/Units 15:13 07:39 Sodium 141 145 (136-145) mmol/L Potassium 4.2 D 3.3 L D (3.5-5.1) mmol/L Chloride 98 99 (98-107) mmol/L Carbon Dioxide 37 H 38 H (21-32) mmol/L BUN 18 16 (7-18) mg/dl Creatinine 0.69 0.58 L (0.6-1.2) mg/dl Glucose 145 H 76 (70-99) mg/dl Calcium 8.9 8.7 (8.5-10.1) mg/dl Intake and Output 10/26/19 10/26/19 10/26/19 06:59 14:59 22:59 Intake Total 350 / 2984 120 / 120 Output Total 350 / 3101 2250 / 2250 Balance 0 / -117 -0 / -2129 Intake: Oral 350 / 1660 120 / 120 Output: Urine Amount (Catheter) 350 / 3100 2250 / 2250 Ferrell/Indwelling 350 / 3100 2250 / 225 Other: Weight 147.6 kg
[2019-10-26] MEDS: NITROGLYCERIN SL 0.4 MG/TAB TAB SL PRN ×3 (16:03→16:16)
[2019-10-26] MEDS ORDERED: FAMOTIDINE 20MG IV PUSH 20 MG/5 ML SYR IV ONE (16:22)
[2019-10-26] MEDS ORDERED: ALUMINUM/MAGNESIUM/SIMETH (MAALOX MAX) 30 ML UDC PO PRN (16:23)
[2019-10-26 16:47] LABS: D Dimer 520 ug/L FEU (0-500)
--- NOTE | 2019-10-26 17:18 | Hospitalist Progress Note ---
Date of Service October 26, 2019 Assessment & Plan (1) Acute on chronic respiratory failure with hypoxia and hypercapnia: Patient is a 68 yr female with H/O Obesity hypoventilation syndrome, chronic hypercapnic respiratory failure on 4L O2 NC during day and NIV HS, COPD, Insulin-dependent DM II with polyneuropathy, chronic diastolic heart failure, Paroxysmal SVT, Left thalamic CVA, HTN, obesity and other problems presents with lethargy x2 days. Acute on chronic respiratory failure with Hypoxia/hypercapnia Acute respiratory distress Metabolic alkalosis Acute metabolic encephalopathy Chronic oxygen dependency--on 4 liters at baseline Likely secondary to Non compliance with Trilogy /Medications ; Obesity Hypoventilation could have contributed -CT Head:Motion degraded exam without acute intracranial abnormality identified. Unchanged large right mastoid effusion. COVID 19 PCR: Negative Normal TSH, Procalcitonin -Continue BiPAP PRN and with sleep, supplemental oxygen -Trilogy to be used regularly during sleep irrespective of time -Appreciate Critical Care Input -Continue nebs, Pulmicort -Mental status back to baseline Atypical Chest Pain Slight improved with NTG Elevated D-Dimer Initial troponin Negative ECHO, CT for PE pending NTG PRN Continue to trend cardiac enzymes check EKG PRN with chest pain Transient Bradycardia H/O SVT Metoprolol held for now (2) Metabolic encephalopathy: (3) Respiratory acidosis: as above Possible UTI Vs Colonization Vs contaminated sample Abnormal UA No signs of sepsis Urine culture pending Patient denies dysuria/Hematuria Will consider antibiotics if patient develops SIRS Lateral hip pain Likely trochanteric bursitis Tylenol, diclofenac gel PT/OT eval as able Improved Hypokalemia Hypophosphatemia Hypomagnesemia Replete electrolytes as needed (4) CHF (congestive heart failure): Acute on chronic diastolic heart failure [id number]:[id number] On lasix Monitor Volume status/ I/Os Appreciate Cardiology Input Continue Lasix (5) Abnormal urinalysis: as above (6) Diabetes mellitus, type II: Insulin dependent. Glycemic pharmacy consulted Monitor blood glucose levels Continue insulin therapy (7) Hypertension: Metoprolol held BP stable Monitor DVT Px: SQ Lovenox Code status: FULL Disposition: To be determined Admission and Anticipated Discharge Date Admission Date: October 24, 2019 Subjective Patient is seen and examined at bedside More alert, awake this morning Left hip pain is improved Complains of sharp left-sided pleuritic chest pain today afternoon Denies nausea, vomiting, dizziness, shortness of breath Discussed with patient's family at bedside Offers no other complaints Review of Systems Review of Systems: All systems reviewed & are unremarkable except as noted in HPI & below Physical Exam Physical Exam: Physical Exam: Vitals signs as noted above General Appearance:Morbidly Obese, no apparent distress Head: normocephalic, Atraumatic Eyes: normal inspection, EOMI Neck: supple, Trachea midline Respiratory/Chest: Decreased breath sounds, CTA Cardiovascular: S1, S2, No murmur Abdomen/GI:Soft, Non tender, Bowel sounds present Extremities/Musculoskelatal:normal inspection, B/L LE edema Neurologic/Psych:AAOX3, grossly no focal neurological deficits Skin: normal color, warm Results & Data Results & Data ([facility] [place]) Vital Signs (Past 12 Hours) Vital Signs Temp Pulse Resp BP Pulse Ox 10/26/19 16:23 80 135/53 L 10/26/19 16:16 80 137/58 L 10/26/19 16:09 87 133/56 L 10/26/19 15:54 36.9 C 69 20 161/61 H 91 10/26/19 15:08 81 18 97 10/26/19 12:03 36.5 C 79 18 137/63 96 10/26/19 11:14 89 20 91 10/26/19 07:55 36.8 C 86 18 158/76 H 95 10/26/19 06:53 81 20 95 Laboratory Results Short CBC 10/26/19 Range/Units 07:39 WBC 5.22 (4.8-10.8) K/uL Hgb 10.0 L (12.0-16.0) g/dL Hct 34.8 L (37-47) % Plt Count 91 L (130-400) K/uL BMP 10/26/19 07:39 Sodium 145 Potassium 3.3 L D Chloride 99 Carbon Dioxide 38 H BUN 16 Creatinine 0.58 L Glucose 76 Calcium 8.7 Cardiac Enzymes 10/26/19 Range/Units 16:15 Troponin I < 0.015 (0-0.045) ng/ml
[2019-10-26] MEDS: SIMVASTATIN 20 MG TAB PO SCH (19:48)
[2019-10-26] MEDS: MONTELUKAST SODIUM 10 MG TABLET PO SCH (19:48)
[2019-10-26] MEDS: NORTRIPTYLINE HCL 10 MG CAP PO SCH (19:48)
[2019-10-26] MEDS ORDERED: OPTIRAY 320 125ml IV ONE (21:17)
[2019-10-27] MEDS ORDERED: MELATONIN 3 MG TAB PO STA (01:10)
[2019-10-27] MEDS: ALBUT/IPRATROP 3MG/0.5MG NEB 3 ML VIAL NEB SCH ×6 (03:00→23:27)
[2019-10-27] MEDS: LEVOTHYROXINE SODIUM 100 MCG TABLET PO SCH (05:55)
[2019-10-27] MEDS: BUDESONIDE 0.25 MG/2 ML VIAL (PULMICORT) NEB SCH ×2 (06:56→18:48)
[2019-10-27] MEDS: FORMOTEROL 20 MCG/2 ML VIAL INH SCH ×2 (06:56→18:48)
[2019-10-27 07:16] LABS: Platelet Estimate Decreased (Normal)
[2019-10-27 07:17] LABS: Hematocrit (blood only) 37.4 % (37-47); Hemoglobin 10.5 g/dL (12.0-16.0); Mean Corpuscular Hemoglobin 24.1 pg (25-34); Mean Corpuscular Hgb Conc 28.1 g/dL (32-36); Mean Platelet Volume 11.4 fL (7.4-10.4); Platelet Count 88 K/uL (130-400); RDW Coefficient of Variation 20.7 % (11.5-14.5); RDW Standard Deviation 64.9 fL (36.4-46.3); Red Blood Count 4.35 M/uL (4.2-5.4); White Blood Count 7.79 K/uL (4.8-10.8)
[2019-10-27] MEDS: DICLOFENAC SOD 1% GEL 100 GM TUBE EXT SCH ×3 (07:30→22:24)
[2019-10-27] MEDS: DULoxetine HCL 30 MG CAP PO SCH ×2 (07:30→19:25)
[2019-10-27] MEDS: FUROSEMIDE 40 MG in SYRINGE 0 ML IV SCH (07:30)
[2019-10-27] MEDS: PANTOprazole 40 MG TAB PO SCH (07:30)
[2019-10-27] MEDS: ursodioL 300 MG CAP PO SCH ×2 (07:30→19:25)
[2019-10-27 07:31] LABS: BUN Creatinine Ratio 22.1 (10-20); Calcium 8.5 mg/dl (8.5-10.1); Creatinine Clr Calc Pharmacy 115.1 ml/min; Est GFR (African American) 103.4; Est GFR (Non-African American) 89.2
--- NOTE | 2019-10-27 07:47 | CT Scan Report ---
CT ANGIOGRAPHY OF THE CHEST, PULMONARY EMBOLUS PROTOCOL CLINICAL HISTORY: Shortness of breath. COMPARISON STUDY: Chest CT October 26, 2089 obtained. Chest radiograph October 25, 2019. TECHNIQUE: Following IV administration of 116 mL of Optiray-320, helical axial images of the chest we re obtained utilizing the pulmonary embolus protocol. Maximal intensity projections and sagittal and coronal reformats were viewed on an independent 3D workstation. IV contrast was administered withou t complication. Automated exposure control was utilized for the study. A dose lowering technique wa s utilized adhering to the principles of ALARA. CT DOSE: 851.27 mGy.cm FINDINGS: No pulmonary emboli are identified although the segmental and subsegmental pulmonary arter ies are suboptimally assessed due to respiratory motion moderate cardiomegaly is noted. There is no p ericardial effusion. There is no thoracic aortic dissection. No enlarged thoracic lymph nodes are not ed. There is a trace right pleural effusion. There is extensive left lower lobe airspace opacity with volume loss. There is also right lower lobe airspace opacity with volume loss. There are mild airspa ce opacities within the bilateral upper lobes. There is no pneumothorax. Bony thorax is unremarkable. Splenomegaly is unchanged. There is trace perihepatic ascites. IMPRESSION: 1. No pulmonary emboli identified although segmental and subsegmental pulmonary arteries suboptimally assessed due to respiratory motion. 2. Extensive bilateral lower lobe airspace opacities. Atelectasis is favored however pneumonia could appear similar. Mild bilateral upper lobe airspace opacities favor an infectious process. 3. Moderate cardiomegaly. 4. Stable splenomegaly. 5. Trace perihepatic ascites. ACT 112: Negative or not required by law. Electronically signed by: Chidi Gregory M.D. 10/27/2019 7:45 AM
[2019-10-27] MEDS: ENOXAPARIN 80 MG/0.8 ML SYR SQ SCH (08:18)
[2019-10-27] MEDS: INSULIN ASPART 100 UNITS/ML 3 ML PEN SC SCH ×4 (08:18→20:17)
[2019-10-27] MEDS: INSULIN HUMAN NPH SC SCH ×3 (08:19→17:00)
[2019-10-27] MEDS ORDERED: PERFLUTREN LIPID MICROSPHERE (DEFINITY) IV ONE (08:51)
--- NOTE | 2019-10-27 09:35 | Electrocardiogram Report ---
Test Reason : Blood Pressure : / mmHG Vent. Rate : 068 BPM Atrial Rate : 068 BPM P-R Int : 126 ms QRS Dur : 070 ms QT Int : 416 ms P-R-T Axes : 058 003 041 degrees QTc Int : 442 ms Normal sinus rhythm Poor R wave progression, consider anterior ND vs. lead placement vs. LVH Nonspecific T wave abnormality Abnormal ECG When compared with ECG of 24-OCT-2019 11:26, No significant change was found Confirmed by Lars Morrison ([id number]) on 10/27/2019 9:34:35 AM Referred By: REFERRED SELF Confirmed By:Lars Morrison
[2019-10-27 09:53] LABS: Potassium 3.6 mmol/L (3.5-5.1)
[2019-10-27 09:55] LABS: Magnesium 1.8 mg/dl (1.8-2.4)
--- NOTE | 2019-10-27 10:27 | Electrocardiogram Report ---
Test Reason : Blood Pressure : / mmHG Vent. Rate : 078 BPM Atrial Rate : 078 BPM P-R Int : 140 ms QRS Dur : 072 ms QT Int : 426 ms P-R-T Axes : 049 005 066 degrees QTc Int : 485 ms Normal sinus rhythm with sinus arrhythmia Nonspecific T wave abnormality Prolonged QT Abnormal ECG When compared with ECG of 26-OCT-2019 15:55, (unconfirmed) Borderline criteria for Inferior infarct are no longer Present Confirmed by Lars Morrison ([id number]) on 10/27/2019 10:26:48 AM Referred By: REFERRED SELF Confirmed By:Lars Morrison
--- NOTE | 2019-10-27 10:48 | Cardiology Progress Note ---
Date of Service October 27, 2019 Assessment & Plan (1) Acute on chronic respiratory failure with hypoxia and hypercapnia: Continue furosemide 40 mg daily. Follow daily weight, fluid balance, GFR, and electrolytes. Repeat echocardiogram demonstrates preserved LV and RV function. No evidence of pulmonary hypertension. Metoprolol remain on hold. Continue telemetry monitoring. Continue positive pressure ventilation. Subcutanteous Lovenox for DVT prophylaxis. Admission and Anticipated Discharge Date Admission Date: October 24, 2019 Subjective Patient seen and examined at the bedside. Fluid balance -2.4 L over the past 24 hours. Telemetry demonstrates sinus rhythm with periods of sinus bradycardia and junctional bradycardia during presumed hours of sleep. Heart rate as low as 40 bpm recorded during sleep. Repeat echocardiogram demonstrates preserved LV systolic function, normal right ventricular size and function, no evidence of pulmonary hypertension. Respiratory status improving since admission. Wearing CPAP nightly. Metoprolol currently on hold. No evidence of supraventricular tachycardia. Patient denies chest pain or palpitations. Review of Systems Review of Systems: All systems reviewed & are unremarkable except as noted in HPI & below Physical Exam Constitutional: + obese Respiratory: normal respiratory effort, lungs clear to auscultation Auscultation: no rales, no rhonchi and no wheezes Cardiovascular: Rate/Rhythm: regular rate and regular rhythm Heart Sounds: normal S1 and normal S2; no gallop, no murmur and no cardiac rub Vessels: radial pulses present; no JVD (Difficult to assess due to body habitus) and no carotid bruit Extremities: + edema (1+ bilateral pedal and ankle edema) Gastrointestinal (Abdomen): Inspection/Auscultation: abdomen normal to inspection and normal bowel sounds; abdomen not distended Percussion/Palpation: abdomen nontender, no guarding and abdomen not rigid Skin: no rashes, warm and dry Neurologic: CN's II-XI intact bilaterally; no focal motor deficits Speech / Cognition: normal speech Psychiatric: A+Ox3, euthymic affect Results & Data ([facility]) Vital Signs (Past 12 Hours) Vital Signs Temp Pulse Pulse Resp BP BP Pulse Ox 10/27/19 08:03 36.5 C 68 18 134/58 L 96 10/27/19 08:00 73 10/27/19 07:00 66 24 94 10/27/19 06:58 66 24 94 10/27/19 04:48 37.2 C 75 18 147/63 H 92 10/27/19 03:02 69 28 H 91 10/27/19 03:01 69 28 H 91 10/26/19 23:47 37.4 C 82 18 152/74 H 90 10/26/19 22:54 67 22 89 L
[2019-10-27] MEDS ORDERED: diphenhydrAMINE HCL 25 MG/10 ML UDC PO PRN (13:29)
[2019-10-27] MEDS: SULFAMETHOXAZOLE/TRIMETHOPRIM DS 800/160MG TAB PO SCH ×2 (14:27→19:25)
--- NOTE | 2019-10-27 15:40 | Hospitalist Progress Note ---
Date of Service October 27, 2019 Assessment & Plan (1) Acute on chronic respiratory failure with hypoxia and hypercapnia: Patient is a 68 yr female with H/O Obesity hypoventilation syndrome, chronic hypercapnic respiratory failure on 4L O2 NC during day and NIV HS, COPD, Insulin-dependent DM II with polyneuropathy, chronic diastolic heart failure, Paroxysmal SVT, Left thalamic CVA, HTN, obesity and other problems presents with lethargy x2 days. Acute on chronic respiratory failure with Hypoxia/hypercapnia Acute respiratory distress Metabolic alkalosis Acute metabolic encephalopathy Chronic oxygen dependency--on 4 liters at baseline Likely secondary to Non compliance with Trilogy /Medications ; Obesity Hypoventilation could have contributed -CT Head:Motion degraded exam without acute intracranial abnormality identified. Unchanged large right mastoid effusion. COVID 19 PCR: Negative Normal TSH, Procalcitonin -Continue BiPAP PRN and with sleep, supplemental oxygen -Trilogy to be used regularly during sleep irrespective of time -Appreciate Critical Care Input -Continue nebs, Pulmicort -Mental status back to baseline -Continue current management -Saturating well on baseline-4 L of supplemental oxygen Atypical Chest Pain CT: No PE Troponin Negative ECHO: No wall motion abnormality Improved with Pepcid Monitor Transient Bradycardia H/O SVT Metoprolol held for now (2) Metabolic encephalopathy: (3) Respiratory acidosis: as above UTI Urine Cx: Klebsiella No signs of sepsis Started on Bactrim Lateral hip pain Likely trochanteric bursitis Tylenol, diclofenac gel PT/OT eval as able Improved Hypokalemia Hypophosphatemia Hypomagnesemia Replete electrolytes as needed (4) CHF (congestive heart failure): Acute on chronic diastolic heart failure BNP:1542 On lasix Monitor Volume status/ I/Os Appreciate Cardiology Input Continue Lasix (5) Abnormal urinalysis: as above (6) Diabetes mellitus, type II: Insulin dependent. Glycemic pharmacy consulted Monitor blood glucose levels Continue insulin therapy (7) Hypertension: Metoprolol held BP stable Monitor DVT Px: SQ Lovenox Code status: FULL CODE Disposition: Bedbound at baseline Likely discharge home with home health when medically stable. Admission and Anticipated Discharge Date Admission Date: October 24, 2019 Subjective Patient is seen and examined at bedside States feeling better today Reports minimal dysuria Chest pain resolved Denies SOB, nausea, vomiting, dizziness, abd pain Family at bedside Offers no other complaints Review of Systems Review of Systems: All systems reviewed & are unremarkable except as noted in HPI & below Physical Exam Physical Exam: Physical Exam: Vitals signs as noted above General Appearance:Morbidly Obese, no apparent distress Head: normocephalic, Atraumatic Eyes: normal inspection, EOMI Neck: supple, Trachea midline Respiratory/Chest: Decreased breath sounds, CTA Cardiovascular: S1, S2, No murmur Abdomen/GI:Soft, Non tender, Bowel sounds present Extremities/Musculoskelatal:normal inspection, B/L LE edema Neurologic/Psych:AAOX3, grossly no focal neurological deficits Skin: normal color, warm Results & Data Results & Data ([facility]) Vital Signs (Past 12 Hours) Vital Signs Temp Pulse Pulse Resp BP BP Pulse Ox 10/27/19 15:15 96 H 18 96 10/27/19 15:05 72 10/27/19 12:03 36.8 C 82 18 150/75 H 96 10/27/19 11:18 77 20 94 10/27/19 08:03 36.5 C 68 18 134/58 L 96 10/27/19 08:00 73 10/27/19 07:00 66 24 94 10/27/19 06:58 66 24 94 10/27/19 04:48 37.2 C 75 18 147/63 H 92 Laboratory Results Short CBC 10/27/19 Range/Units 06:15 WBC 7.79 (4.8-10.8) K/uL Hgb 10.5 L (12.0-16.0) g/dL Hct 37.4 (37-47) % Plt Count 88 L (130-400) K/uL BMP 10/27/19 10/27/19 10/27/19 06:15 07:36 09:15 Sodium 140 Potassium Cancelled 3.6 Chloride 97 L Carbon Dioxide 38 H BUN 15 Creatinine 0.68 Glucose 142 H Calcium 8.5 Cardiac Enzymes 10/26/19 10/26/19 10/27/19 Range/Units 16:15 22:21 06:15 Troponin I < 0.015 < 0.015 < 0.015 (0-0.045) ng/ml
[2019-10-27] MEDS: NORTRIPTYLINE HCL 10 MG CAP PO SCH (19:25)
[2019-10-27] MEDS: SIMVASTATIN 20 MG TAB PO SCH (19:25)
[2019-10-27] MEDS: MONTELUKAST SODIUM 10 MG TABLET PO SCH (19:25)
[2019-10-27] MEDS: traMADol HCL 50 MG TABLET PO PRN (20:42)
[2019-10-28] MEDS: ALBUT/IPRATROP 3MG/0.5MG NEB 3 ML VIAL NEB SCH ×3 (03:15→10:31)
[2019-10-28] MEDS: LEVOTHYROXINE SODIUM 100 MCG TABLET PO SCH (06:10)
[2019-10-28 07:05] LABS: Hematocrit (blood only) 36.6 % (37-47); Hemoglobin 10.4 g/dL (12.0-16.0); Mean Corpuscular Hemoglobin 24.4 pg (25-34); Mean Corpuscular Hgb Conc 28.4 g/dL (32-36); Mean Corpuscular Volume 85.9 fL (80-100); Mean Platelet Volume 10.9 fL (7.4-10.4); Platelet Count 89 K/uL (130-400); Platelet Estimate Decreased (Normal); RDW Coefficient of Variation 20.8 % (11.5-14.5); RDW Standard Deviation 65.1 fL (36.4-46.3); Red Blood Count 4.26 M/uL (4.2-5.4); White Blood Count 7.47 K/uL (4.8-10.8)
[2019-10-28 07:10] LABS: BUN Creatinine Ratio 18.7 (10-20); Calcium 8.5 mg/dl (8.5-10.1); Creatinine Clr Calc Pharmacy 99.7 ml/min; Est GFR (African American) 89.9; Est GFR (Non-African American) 77.6; Potassium 3.2 mmol/L (3.5-5.1)
[2019-10-28] MEDS: FORMOTEROL 20 MCG/2 ML VIAL INH SCH (07:26)
[2019-10-28] MEDS: BUDESONIDE 0.25 MG/2 ML VIAL (PULMICORT) NEB SCH (07:26)
[2019-10-28] MEDS: DICLOFENAC SOD 1% GEL 100 GM TUBE EXT SCH (07:41)
[2019-10-28] MEDS: ursodioL 300 MG CAP PO SCH (07:41)
[2019-10-28] MEDS: ENOXAPARIN 80 MG/0.8 ML SYR SQ SCH (07:41)
[2019-10-28] MEDS: DULoxetine HCL 30 MG CAP PO SCH (07:42)
[2019-10-28] MEDS: FUROSEMIDE 40 MG in SYRINGE 0 ML IV SCH (07:42)
[2019-10-28] MEDS: PANTOprazole 40 MG TAB PO SCH (07:42)
[2019-10-28] MEDS: SULFAMETHOXAZOLE/TRIMETHOPRIM DS 800/160MG TAB PO SCH (07:42)
[2019-10-28] MEDS: INSULIN ASPART 100 UNITS/ML 3 ML PEN SC SCH ×2 (07:50→12:30)
[2019-10-28] MEDS: INSULIN HUMAN NPH SC SCH ×2 (07:51→12:31)
[2019-10-28] MEDS ORDERED: POTASSIUM CHLORIDE CRTAB 20 MEQ TABCR PO ONE (08:21)
--- NOTE | 2019-10-28 11:30 | Cardiology Progress Note ---
Date of Service October 28, 2019 Assessment & Plan (1) Acute on chronic respiratory failure with hypoxia and hypercapnia: Continue furosemide 40 mg daily. Follow daily weight, fluid balance, GFR, and electrolytes. Repeat echocardiogram demonstrates preserved LV and RV function. No evidence of pulmonary hypertension. Metoprolol remain on hold. Continue telemetry monitoring. Continue positive pressure ventilation. Subcutanteous Lovenox for DVT prophylaxis. Admission and Anticipated Discharge Date Admission Date: October 24, 2019 Subjective Patient seen and examined at the bedside. Fluid balance -1800 cc overnight. Respiratory status mildly improved. Denies chest pain or palpitations. Periods of sinus bradycardia and junctional bradycardia noted during sleep. No tachycardia dysrhythmias. No new concerns/complaints at this time. Review of Systems Review of Systems: All systems reviewed & are unremarkable except as noted in HPI & below Physical Exam Constitutional: + obese Respiratory: normal respiratory effort, lungs clear to auscultation Auscultation: no rales, no rhonchi and no wheezes Cardiovascular: Rate/Rhythm: regular rate and regular rhythm Heart Sounds: normal S1 and normal S2; no gallop, no murmur and no cardiac rub Vessels: radial pulses present; no JVD (Difficult to assess due to body habitus) and no carotid bruit Extremities: + edema (1+ bilateral pedal and ankle edema) Gastrointestinal (Abdomen): Inspection/Auscultation: abdomen normal to inspection and normal bowel sounds; abdomen not distended Percussion/Palpation: abdomen nontender, no guarding and abdomen not rigid Skin: no rashes, warm and dry Neurologic: CN's II-XI intact bilaterally; no focal motor deficits Speech / Cognition: normal speech Psychiatric: A+Ox3, euthymic affect Results & Data ([facility]) Vital Signs (Past 12 Hours) Vital Signs Temp Pulse Pulse Resp BP Pulse Ox 10/28/19 10:31 71 18 96 10/28/19 08:04 36.8 C 69 18 124/73 96 10/28/19 07:31 74 10/28/19 07:27 74 18 95 10/28/19 03:54 36.8 C 72 19 128/74 96 10/28/19 03:16 69 69 16 96 10/27/19 23:37 37.0 C 76 19 136/56 L 96
--- NOTE | 2019-10-28 12:06 | Hospitalist Progress Note ---
Date of Service October 28, 2019 Assessment & Plan (1) Acute on chronic respiratory failure with hypoxia and hypercapnia: Patient is a 68 yr female with H/O Obesity hypoventilation syndrome, chronic hypercapnic respiratory failure on 4L O2 NC during day and NIV HS, COPD, Insulin-dependent DM II with polyneuropathy, chronic diastolic heart failure, Paroxysmal SVT, Left thalamic CVA, HTN, obesity and other problems presents with lethargy x2 days. Acute on chronic respiratory failure with Hypoxia/hypercapnia Acute respiratory distress Metabolic alkalosis Acute metabolic encephalopathy Chronic oxygen dependency--on 4 liters at baseline Likely secondary to Non compliance with Trilogy /Medications ; Obesity Hypoventilation could have contributed -CT Head:Motion degraded exam without acute intracranial abnormality identified. Unchanged large right mastoid effusion. COVID 19 PCR: Negative Normal TSH, Procalcitonin -Continue BiPAP PRN and with sleep, supplemental oxygen -Trilogy to be used regularly during sleep irrespective of time -Appreciate Critical Care Input -Continue nebs, Pulmicort -Mental status back to baseline -Continue current management -Saturating well on baseline-4 L of supplemental oxygen -Advised to follow-up with pulmonary upon discharge -Needs sleep study as outpatient Atypical Chest Pain CT: No PE Troponin Negative ECHO: No wall motion abnormality Improved with Pepcid Monitor Transient Bradycardia H/O SVT Metoprolol held during hospital stay Plan to hold metoprolol upon discharge as well Discussed with cardiology--appreciate input (2) Metabolic encephalopathy: (3) Respiratory acidosis: as above UTI Urine Cx: Klebsiella No signs of sepsis Continue Bactrim to complete the course Lateral hip pain Likely trochanteric bursitis Tylenol, diclofenac gel PT/OT eval as able Improved Patient refused any imaging studies Please likely muscular in origin Hypokalemia Hypophosphatemia Hypomagnesemia Replete electrolytes as needed (4) CHF (congestive heart failure): Acute on chronic diastolic heart failure BNP:1542 On lasix Monitor Volume status/ I/Os Appreciate Cardiology Input Continue Lasix (5) Abnormal urinalysis: as above (6) Diabetes mellitus, type II: Insulin dependent. Glycemic pharmacy consulted Monitor blood glucose levels Continue insulin therapy (7) Hypertension: BP stable Monitor Morbid Obesity BMI:50.9 DVT Px: SQ Lovenox Code status: FULL CODE Disposition: Bedbound at baseline Likely discharge home with home health when medically stable. Admission and Anticipated Discharge Date Admission Date: October 24, 2019 Subjective Patient is seen and examined at bedside Doing well today Dysuria improved Discussed with cardiology today No new complaints Eager to get discharged Denies chest pain, SOB, nausea, vomiting, dizziness, abd pain Review of Systems Review of Systems: All systems reviewed & are unremarkable except as noted in HPI & below Physical Exam Physical Exam: Physical Exam: Vitals signs as noted above General Appearance:Morbidly Obese, no apparent distress Head: normocephalic, Atraumatic Eyes: normal inspection, EOMI Neck: supple, Trachea midline Respiratory/Chest: Decreased breath sounds, CTA Cardiovascular: S1, S2, No murmur Abdomen/GI:Soft, Non tender, Bowel sounds present Extremities/Musculoskelatal:normal inspection, B/L LE edema Neurologic/Psych:AAOX3, grossly no focal neurological deficits Skin: normal color, warm Results & Data Results & Data ([facility]) Vital Signs (Past 12 Hours) Vital Signs Temp Pulse Pulse Resp BP Pulse Ox 10/28/19 10:31 71 18 96 10/28/19 08:04 36.8 C 69 18 124/73 96 10/28/19 07:31 74 10/28/19 07:27 74 18 95 10/28/19 03:54 36.8 C 72 19 128/74 96 10/28/19 03:16 69 69 16 96 Laboratory Results Short CBC 10/28/19 Range/Units 06:13 WBC 7.47 (4.8-10.8) K/uL Hgb 10.4 L (12.0-16.0) g/dL Hct 36.6 L (37-47) % Plt Count 89 L (130-400) K/uL BMP 10/28/19 06:13 Sodium 140 Potassium 3.2 L Chloride 96 L Carbon Dioxide 37 H BUN 15 Creatinine 0.78 Glucose 91 Calcium 8.5
--- NOTE | 2019-10-28 12:47 | Discharge Summary ---
Date of Service October 28, 2019 Admission HPI Per Admitting Provider This is a 68-year-old female with PMH of obesity hypoventilation syndrome, chronic hypercapnic respiratory failure on 4L O2 NC during day and NIV HS, COPD, insulin-dependent DM II with polyneuropathy, chronic diastolic heart failure, history of paroxysmal SVT, history of left thalamic CVA, HTN, obesity and other medical problems as below who presents with lethargy x2 days. 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 Was difficult to communicate with due to lethargy today, so brought to ED for further evaluation. Patient was admitted in October of last year with pneumonia and acute on chronic respiratory failure requiring intubation. Per , no recent fevers. Patient denies any pain. At baseline, patient requires Tere lift and is incontinent. 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 No recent medication changes. In ED, patient was afebrile and initially hypoxic in 80s. Was placed on BiPAP with an improvement of oxygen saturation 95%. VBG revealed pH of 7.1 and PCO2 of 136. Chest x-ray with cardiomegaly with evidence of congestive failure and interstitial edema and layering pleural effusions with bibasilar consolidation. ABG with pH of 7.2 and PCO2 of 106. Patient able to nod yes or no to some questions although somnolent. Mostly responsive to painful stimuli. Unable to obtain full ROS due to cognitive state. Admission Exam Per Admitting Provider Physical Exam Physical Exam: General Appearance: WD/WN, vitals as above, morbidly obese, somnolent on BiPAP, responsive to some verbal and painful stimuli Head: normocephalic, atraumatic Eyes: normal inspection, PERRL, conjunctivae normal, anicteric sclerae ENT: external ear and nose normal, wearing BiPAP mask Neck: normal visual inspection, trachea midline, no thyromegaly Respiratory: Diminished lung sounds bilaterally with bibasilar crackles, no wheeze, rales, rhonchi. No accessory muscle use Cardiovascular: regular rate, rhythm, no murmur appreciated, normal peripheral pulses, 2+ BLE edema. Unable to assess for JVD 2/2 habitus Abdomen/GI: normal bowel sounds, soft, nontender, no hepatosplenomegaly Extremities/Musculoskeletal: no cyanosis or clubbing, extremities motor strength 5/5 Neurologic: PERRL, CN's II-XI intact bilaterally and moves all extremities Psychiatric: Somnolent. Answering some yes/no questions Skin: small area of erythematous lesions on chest - no warmth or drainage. Skin warm/dry Principal Diagnosis Acute on chronic respiratory failure with hypoxia and hypercapnia Acute respiratory distress Metabolic alkalosis Acute metabolic encephalopathy Electrolyte imbalances Urinary tract infection Possible Acute on chronic diastolic heart failure Discharge Data Allergies Allergy/AdvReac Type Severity Reaction Status Date / Time fluoxetine Allergy Severe ANAPHYLAXIS Verified 07/10/19 00:35 Insulins Allergy Severe LANTUS/LEVEMIR- Verified 07/10/19 00:35 HIVES/THROAT SWELLING moxifloxacin Allergy Severe HIVES Verified 07/10/19 00:35 nitrofurantoin Allergy Severe HIVES Verified 07/10/19 00:35 paroxetine Allergy Severe HIVES Verified 07/10/19 00:35 Quinolones Allergy Severe AVELOX & Verified 07/10/19 00:35 LEVAQUIN-HIVES amitriptyline Allergy Intermediate Sweats and Verified 07/10/19 00:35 itching buspirone Allergy Intermediate HIVES Verified 07/10/19 00:35 cephalexin Allergy Intermediate Hives Verified 07/10/19 00:35 citalopram Allergy Intermediate HIVES-RASH Verified 07/10/19 00:35 escitalopram Allergy Intermediate HIVES-RASH Verified 07/10/19 00:35 levofloxacin Allergy Intermediate Hives Verified 07/10/19 00:35 methadone Allergy Intermediate HIVES Verified 07/10/19 00:35 Penicillins Allergy Intermediate RASH,HIVES Verified 07/10/19 00:35 Serotonin 5HT-3 Antagonists Allergy Intermediate MIGRAINES Verified 07/10/19 00:35 TO SSRIs trazodone Allergy Intermediate BLOODY Verified 07/10/19 00:35 NOSE, HEADACHES,HIVES vancomycin Allergy Intermediate HIVES Verified 07/10/19 00:35 prednisone Allergy Mild CHEST Verified 07/10/19 00:35 TIGHTNESS carbamazepine Allergy Unknown HIVES-RASH- Verified 07/10/19 00:35 ITCHINESS cefepime Allergy Unknown face & arm Verified 07/10/19 00:35 redness/itching after 2nd or 3rd dose cefepime ceftriaxone Allergy Unknown Received Verified 07/10/19 00:35 in MTU (but needed benadryl for course of therapy Cipro Allergy Unknown ABD PAINS Verified 09/08/17 09:10 ciprofloxacin Allergy Unknown ABD PAINS Verified 07/10/19 00:35 sertraline Allergy Unknown UNKNOWN Verified 07/10/19 00:35 sitagliptin Allergy Unknown HIVES Verified 07/10/19 00:35 azithromycin Allergy Hives Verified 07/10/19 00:35 Cephalosporins Allergy Hives Verified 07/10/19 00:35 metformin [From Janumet] Allergy Unknown Verified 07/10/19 00:35 Tetracyclines AdvReac Severe HIVES Verified 07/10/19 00:35 Sulfa (Sulfonamide AdvReac Intermediate MIGRAINES Verified 07/10/19 00:35 Antibiotics) fexofenadine AdvReac Mild GI SYMPTOMS Verified 07/10/19 00:35 tizanidine AdvReac Mild ITCHING-HIV Verified 07/10/19 00:35 ES gentamicin AdvReac Unknown UNKNOWN Verified 07/10/19 00:35 lorazepam AdvReac Unknown Verified 07/10/19 00:35 blood Allergy Severe Anaphylaxis Uncoded 10/25/19 07:53 Consultations 10/24/19 12:50 ED Decision to Admit Stat 10/24/19 15:35 Consult Case Management - Discharge Planning Routine Consult Stenotype Machine Operator Routine 10/26/19 07:00 Consult Cardiology Routine Procedures Performed CT Head:Motion degraded exam without acute intracranial abnormality identified. Unchanged large right mastoid effusion. CTA: 1. No pulmonary emboli identified although segmental and subsegmental pulmonary arteries suboptimally assessed due to respiratory motion. 2. Extensive bilateral lower lobe airspace opacities. Atelectasis is favored however pneumonia could appear similar. Mild bilateral upper lobe airspace opacities favor an infectious process. 3. Moderate cardiomegaly. 4. Stable splenomegaly. 5. Trace perihepatic ascites. Ordered Studies 10/24/19 11:34 CT head/brain wo con Stat 10/26/19 16:50 CT angio chest PE protocol Urgent Hospital Course (1) Acute on chronic respiratory failure with hypoxia and hypercapnia: Patient is a 68 yr female with H/O Obesity hypoventilation syndrome, chronic hypercapnic respiratory failure on 4L O2 NC during day and NIV HS, COPD, Insulin-dependent DM II with polyneuropathy, chronic diastolic heart failure, Paroxysmal SVT, Left thalamic CVA, HTN, obesity and other problems presents with lethargy x2 days. Acute on chronic respiratory failure with Hypoxia/hypercapnia Acute respiratory distress Metabolic alkalosis Acute metabolic encephalopathy Chronic oxygen dependency--on 4 liters at baseline Likely secondary to Non compliance with Trilogy /Medications ; Obesity Hypoventilation could have contributed -CT Head:Motion degraded exam without acute intracranial abnormality identified. Unchanged large right mastoid effusion. COVID 19 PCR: Negative Normal TSH, Procalcitonin -Continue BiPAP PRN and with sleep, supplemental oxygen -Trilogy to be used regularly during sleep irrespective of time -Appreciate Critical Care Input -Continue nebs, Pulmicort -Mental status back to baseline -Continue current management -Saturating well on baseline-4 L of supplemental oxygen -Advised to follow-up with pulmonary upon discharge -Needs sleep study as outpatient Atypical Chest Pain CT: No PE Troponin Negative ECHO: No wall motion abnormality Improved with Pepcid Monitor Transient Bradycardia H/O SVT Metoprolol held during hospital stay Plan to hold metoprolol upon discharge as well Discussed with cardiology--appreciate input (2) Metabolic encephalopathy: (3) Respiratory acidosis: as above UTI Urine Cx: Klebsiella No signs of sepsis Continue Bactrim to complete the course Lateral hip pain Likely trochanteric bursitis Tylenol, diclofenac gel PT/OT eval as able Improved Patient refused any imaging studies Please likely muscular in origin Hypokalemia Hypophosphatemia Hypomagnesemia Replete electrolytes as needed (4) CHF (congestive heart failure): Acute on chronic diastolic heart failure [id number]:1542 On lasix Monitor Volume status/ I/Os Appreciate Cardiology Input Continue Lasix (5) Abnormal urinalysis: as above (6) Diabetes mellitus, type II: Insulin dependent. Glycemic pharmacy consulted Monitor blood glucose levels Continue insulin therapy (7) Hypertension: BP stable Monitor Morbid Obesity BMI:50.9 DVT Px: SQ Lovenox Code status: FULL CODE Disposition: Bedbound at baseline Likely discharge home with home health when medically stable. Total Time Total Time Spent Total Time Spent (In Minutes): 42 minutes Total Time Includes: Examination of the Patient, Discharge Planning, Medication Reconciliation, Communication With Other Providers and Other Discharge Plan Discharge Items Patient Disposition: Home - Home Health Services Reason For Visit: HYPERCAPNIC RESP FAILURE,LETHARGY Discharge Diagnosis: Acute on chronic respiratory failure with hypoxia and hypercapnia Acute respiratory distress Metabolic alkalosis Acute metabolic encephalopathy Electrolyte imbalances Urinary tract infection Possible Acute on chronic diastolic heart failure Activity: Resume your previous activity Exercise/Sports: Gradually increase as tolerated Non-emergency contact: Primary Care Provider, 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 Owens on November 05, 2019 at 9:45 AM Follow-up with your personal financial counselor in 2 weeks Consider following with your rod and tube straightener as needed Complete antibiotic course (trimethoprim sulfamethoxazole) for 2 more days as prescribed Get Sleep Study as outpatient as recommended by your rod and tube straightener Your metoprolol is discontinued secondary to low heart rate during your hospital stay. Further recommendations as per your rod and tube straightener as outpatient. Trilogy should be used regularly during sleep irrespective of time. Your blood cultures are pending at the time of discharge. Follow-up with your physician for final results. Seek immediate medical attention if your symptoms reoccur or worsen Call your Primary Care doctor if any of the following symptoms or problems start or get worse: * Shortness of breath or difficulty breathing * Wake up at night short of breath * Chest pain * Cough * Swelling of your hands, feet, or legs * More fatigued or tired with your normal activity * Palpitations - sudden fast heart beats WEIGHT * Weigh yourself every morning after using the bathroom. * Use the same scale. * Wear the same amount of clothing. * Write your weight down on a chart. * Call your Primary Care doctor if you gain more than 2-3 pounds in 1-2 days. MEDICATIONS * Use this discharge instruction sheet for medication instructions. * Take your medications at the time your doctor ordered. * Do not skip a dose of your medicines. * If you miss a dose of medicine, take it as soon as possible, but DO NOT DOUBLE A DOSE. * Read your medicine information when you get home. * Know all of the side effects of your medicine. If in doubt, ask your pharmacist * Call your Primary Care doctor's office if you have any side effects. * Be sure all of your doctors know what medicine and herbs you take (including cold, flu, and herbal medicine). Take the following with you to your follow-up doctor appointments: * Weight Chart * Medication List * List of questions Do not drink excessive alcohol, beer or wine. Pending Studies at Discharge: Yes Studies:: Blood Culture Stand-Alone Forms: [facility] CAXA, Smoking Cessation Medications and DC Order Prescriptions: New sulfamethoxazole-trimethoprim 800-160 mg Tablet 1 tab PO Q12 Qty: 3 RF: 0 Continued celecoxib [Celebrex] 200 mg Capsule 200 mg PO DAILY PRN (Reason: Pain) RF: 0 furosemide 40 mg tablet 40 mg PO DAILY PRN (Reason: Edema) RF: 0 sumatriptan succinate 100 mg Tablet 100 mg PO UD RF: 0 cyanocobalamin (vitamin B-12) [Vitamin B-12] 1,000 mcg Tablet 1,000 mcg PO DAILY RF: 0 levothyroxine 100 mcg tablet 100 mcg PO DAILYBB RF: 0 baclofen 10 mg tablet 5 mg PO HS RF: 0 pantoprazole 40 mg tablet,delayed release (DR/EC) 40 mg PO DAILYBB RF: 0 simvastatin 20 mg tablet 20 mg PO HS RF: 0 nortriptyline 10 mg capsule 10 mg PO HS RF: 0 Novolin R Regular U-100 Insuln 100 unit/mL solution 0 unit subcut UD RF: 0 ursodiol 300 mg Capsule 600 mg PO BID RF: 0 montelukast 10 mg tablet 10 mg PO HS RF: 0 nystatin [Nyamyc] 100,000 unit/gram powder 1 applic TOPICAL TID RF: 0 metformin 500 mg tablet extended release 24 hr 2,000 mg PO DAILY RF: 0 duloxetine 30 mg capsule,delayed release(DR/EC) 30 mg PO BID RF: 0 pregabalin 200 mg capsule 200 mg PO TID RF: 0 Tresiba FlexTouch U-200 200 unit/mL (3 mL) insulin pen 67 unit SUBCUT UD RF: 0 Trelegy Ellipta 100-62.5-25 mcg blister with device 1 inh INHALATION DAILY RF: 0 Discontinued metoprolol succinate 25 mg tablet extended release 24 hr 25 mg PO DAILY RF: 0 Discharge Orders: Discharge Order (Routine); Ordered 10/28/19 Ordered By: Fred Rowan Admission Data Admit Date/Time: 10/24/19 13:58 Attending Provider: Fred Rowan Admit Provider: Liza Rodriguez Primary Care Provider: Bairon Owens Other Providers: [facility],Home Healthcare ; Liza Rodriguez ; José Miguel Humphreys ; Seema Bautista Other Interventions: Discharge Summary Assessment (RN) Last Done: 10/28/19 12:48
== END 2019-10-28 14:50 | disposition home health service (06) | DRG 291 ==
LOC: ED 11:19 → 1E 13:58 → SUATTDRO 13:58 → 1E 15:18 → 2S 10-25 18:23

== ENCOUNTER 2020-08-11 15:15 | Inpatient (IN) ==
[~2020-08-11 15:15] MED LIST changes: -ACT300 PO; -ALBINS/ NEB; -ASPI81TA28 PO; -BACL10TA PO; -CLB/200 PO; -CYM30 PO; +ETOMIDATE 2 MG/ML 20 ML VIAL IV ONE; -FLUT0.15 NAE; -GLCSR/500 PO; -IMT100 PO; -INSU0.01 SQ; -INSUINJ7 SQ; -LCTS240 PO; -LCTX PO; -LEVO100T7 PO; -LINE1TAB6 PO; -LSX40 PO; -MCTP TOP; -METO25TA3 PO; +MIDAZOLAM HCL 5 MG/ML VIAL IV ONE; -NYSCR30 TOP; -ONDA4TAB46 PO; -OXGN; -PANT40TA2 PO; -POLY335019 PO; -PREG200C PO; -SIMV20TA5 PO; -SNG10 PO; -SPRIN/30 INH; +SUCCINYLCHOLINE CHLORIDE 20 MG/ML 10 ML VIAL IV ONE; -TRMCR515 TOP; -VNTHFA/IN INH; +fentaNYL citrate 100 MCG/2 ML VIAL IV ONE
[2020-08-11 16:12] LABS: Alanine Aminotransferase 12 U/L (12-78); Albumin Level 3.3 gm/dl (3.4-5.0); Aspartate Aminotransferase 9 U/L (15-37); BUN Creatinine Ratio 23.3 (10-20); Blood Urea Nitrogen 17 mg/dl (7-18); Calcium 8.7 mg/dl (8.5-10.1); Carbon Dioxide 39 mmol/L (21-32); Chloride 100 mmol/L (98-107); Creatinine Clr Calc Pharmacy 116.6 ml/min; Est GFR (African American) 96.7 ml/min; Est GFR (Non-African American) 83.4 ml/min; Glucose 239 mg/dl (70-99); Magnesium 2.2 mg/dl (1.8-2.4); Potassium 3.7 mmol/L (3.5-5.1); Sodium 142 mmol/L (136-145)
[2020-08-11 16:17] LABS: Albumin Globulin Ratio 0.9 (0.9-2); Alkaline Phosphatase 75 U/L (45-117); Bilirubin,Total 0.4 mg/dl (0.2-1); Globulin 3.5 gm/dl (2.5-4.0); NT Pro B Type Natriuretic Pept 562 pg/ml (0-900); Prothrombin Time 10.5 Seconds (9.0-12.0); Total Protein 6.8 gm/dl (6.4-8.2); Troponin I < 0.015 ng/ml (0-0.045)
[2020-08-11 16:23] LABS: D Dimer 790 ug/L FEU (0-500)
--- NOTE | 2020-08-11 16:33 | XRay Report ---
XR chest 1V portable HISTORY: Dyspnea COMPARISON: Chest 10/25/2019. FINDINGS: No pneumothorax. Small to moderate right and small left pleural effusions. Perihilar hazy a irspace opacities, right greater the left with diffuse interstitial/vascular thickening. This favors moderate pulmonary edema. An atypical pneumonia could also have a similar appearance in the appropria te clinical setting. There are low lung volumes. The heart remains enlarged. IMPRESSION: 1. Above findings favor moderate asymmetric pulmonary edema with bilateral pleural effusions. 2. An atypical pneumonia could also have a similar appearance in the appropriate clinical setting. ACT 112: Negative or not required by law. Electronically signed by: Rah Lutz M.D. 08/11/2020 4:32 PM
[2020-08-11 16:53] LABS: Base Excess VBG 11.3 mEq/L; pH VBG 7.14 (7.36-7.41)
[2020-08-11] MEDS ORDERED: OPTIRAY 320 125ml IV ONE (17:06)
--- NOTE | 2020-08-11 17:19 | CT Scan Report ---
CHEST CTA for PULMONARY ARTERIES CT DOSE: 832.09 mGy.cm HISTORY: PE, +dimer, hypoxia TECHNIQUE: Multiaxial CT images of the chest were performed following the intravenous administration of contrast to evaluate the pulmonary arteries. Maximal intensity projection images were also obtaine d. A dose lowering technique was utilized adhering to the principles of ALARA. COMPARISON STUDY: Chest CTA 11/04/2019. FINDINGS: Normal caliber thoracic aorta with no evidence for dissection. The heart is enlarged. No pe ricardial effusions. There are trace bilateral pleural effusions. Stable prominent mediastinal lymph nodes. Near nondiagnostic evaluation of the majority of the segmental and subsegmental pulmonary caro antonio due to the motion artifact and bilateral airspace opacities. However, no definite filling defect s within the pulmonary arteries to suggest a pulmonary embolus. Limited views of the upper abdomen ag ain demonstrate a cirrhotic liver, splenomegaly, and ascites. No suspicious lytic or blastic osseous lesions. No pneumothorax. Small amount of mucoid material within the distal trachea. Mild diffuse int erlobular septal thickening with patchy consolidative airspace opacities seen throughout the lungs. T here is also dense consolidation seen within the majority of the bilateral lower lobes. IMPRESSION: 1. No evidence for pulmonary embolus with limitations as described above. 2. Multifocal bilateral airspace opacities with dense consolidation in the bilateral lower lobes. Thi s favors a pneumonia and could be due to viral process. There is also cardiomegaly, trace bilateral p leural effusions, and interlobular septal thickening. Therefore, superimposed pulmonary edema could a lso have a similar appearance. 3. Redemonstration of the cirrhotic liver, splenomegaly, and ascites. ACT 112: Negative or not required by law. Electronically signed by: Rah Lutz M.D. 08/11/2020 5:18 PM
[2020-08-11 17:42] LABS: Hematocrit (blood only) 40.7 % (37-47); Hemoglobin 11.2 g/dL (12.0-16.0); Mean Corpuscular Hemoglobin 27.8 pg (25-34); Mean Corpuscular Hgb Conc 27.5 g/dL (32-36); Mean Platelet Volume 11.5 fL (7.4-10.4); Platelet Count 93 K/uL (130-400); RDW Coefficient of Variation 17.9 % (11.5-14.5); RDW Standard Deviation 66.4 fL (36.4-46.3); Red Blood Count 4.03 M/uL (4.2-5.4); White Blood Count 7.76 K/uL (4.8-10.8)
[2020-08-11 17:43] LABS: Basophilic Stippling 1+; Basophils # (auto) 0.02 K/uL (0-0.2); Basophils % (auto) 0.3 %; Eosinophils # (auto) 0.08 K/uL (0-0.5); Hypochromasia Present; Immature Granulocytes # (auto) 0.09 K/uL (0.00-0.02); Immature Granulocytes % (auto) 1.2 %; Lymphocytes # (auto) 0.77 K/uL (1.2-3.4); Lymphocytes % (auto) 9.9 %; Monocytes # (auto) 0.61 K/uL (0.11-0.59); Monocytes % (auto) 7.9 %; Neutrophils # (auto) 6.19 K/uL (1.4-6.5); Neutrophils % (auto) 79.7 %; Platelet Estimate Decreased (Normal); Polychromasia 1+
[2020-08-11] MEDS ORDERED: ALBUT/IPRATROP 3MG/0.5MG NEB 3 ML VIAL NEB ONE (17:53)
[2020-08-11] MEDS ORDERED: MEROPENEM 500 MG in SYRINGE 0 ML IV STA (18:03)
[2020-08-11] MEDS ORDERED: RAPID SEQUENCE INDUCTION BAG ONE (18:29)
[2020-08-11] MEDS ORDERED: PROPOFOL IV EMULSION 10 MG/ML 100 ML VIAL IV ONE (18:43)
[2020-08-11] MEDS ORDERED: STAT IV Infusion **Titration per Protocol STA (18:44)
[2020-08-11] MEDS ORDERED: PROPOFOL BOLUS FROM BAG IV PRN (18:44)
[2020-08-11] MEDS ORDERED: FUROSEMIDE 40 MG/4 ML VIAL IV STA (18:53)
--- NOTE | 2020-08-11 18:53 | History & Physical Report ---
Date of Service August 11, 2020 Assessment & Plan (1) Acute on chronic respiratory failure with hypoxia and hypercapnia: (2) Morbid obesity: (3) Respiratory acidosis: (4) Metabolic encephalopathy: Pt is a 69 y/o F w/ hx of DM type 2 on insulin, morbid obesity (BMI 54), obesity hypoventilation syndrome, COPD, JOSE, hypothyroidism, chronic diastolic CHF, prior CVA, HTN, HLD, cirrhosis, splenomegaly, chronic pain, chronic hypoxic hypercapnic resp. failure (4L NC at baseline during the day, bipap at night) who presents d/t hypoxia for several days. In ED worsening mental status (likely d/t hypercarbia, hypoxia) and required intubation. +hemoptysis VBG ph 7.1, pCO2 134 CT PE - negative for PE, positive b/l pleural effusions, poss. PNA COVID negative WBC wnl Procalcitonin - pending Sputum cultx - pending Blood cultx - pending TSH- pending Prior to admission, no fevers reported. Received meropenem in ED (pt has multiple Abx allergies) Received 40 IV lasix Intubated in ED Further management by ICU Hx of chronic distolic CHF - on PO lasix at home - pro BNP wnl - give 40 IV lasix on admission (discussed pulmonary edema, poss. hemoptysis w/ bond writer) - may need further diuresis w/ acetazolamide - cont. to closely monitor I/Os, electrolytes - may need to repeat echo - troponin negative Further management per ICU Hypothyroidism - check TSH, T4 - cont. levothyroxine DM type 2 - on insulin - management per ICU/ glycemic pharmacy Abnormal UA - UA positive for bacteria, nitrite - unclear if any urinary symptoms - urine cultx - pending - received 1 dose of meropenem on admission, may need to continue - further management per ICU Thrombocytopenia - chronic - poss. hemoptysis, no other signs of bleed noted - cont to closely monitor plt count DVT ppx - SCDs, per ICU, may hold off from chem. ppx given poss. hemoptysis, and thrombocytopenia CODE: FULL (confirmed w/ at the bedside) History of Present Illness Chief Complaint: Hypoxia , AMS Primary Care Provider: Bairon Owens MD Pt is a 69 y/o F w/ hx of DM type 2 on insulin, morbid obesity (BMI 54), obesity hypoventilation syndrome, COPD, JOSE, hypothyroidism, chronic diastolic CHF, prior CVA, HTN, HLD, cirrhosis, splenomegaly, chronic pain, chronic hypoxic hypercapnic resp. failure (4L NC at baseline during the day, bipap at night) who presents d/t hypoxia for several days. Pt's at the bedside provides most of the history, and medical chart reviewed. Per , "they could not get her oxygen up". Pt uses suppl. O2 during the day and BiPAP at night. For several days pt has been hypoxic, per home nursing sats in 70-80s%. She was asked multiple times to present to the ED, but she refused. Finally she was persuaded today. reports pt has been having cough with sputum production and streaks of blood when coughing. Denies that pt had any fevers. Also denies that pt complained of any abdominal pain, nausea, diarrhea. He is not aware if she had increased edema/ fluid retention however difficult to asses d/t body habitus. In the ED pt on BiPAP, voice very soft when answering my questions, could not say if pt was answering appropriately. D-Dimer positive in ED, CT PE negative for PE however noted b/l pleural effusions and poss. consolidation/ atypical pna. In the ED pt is in hypoxic and hypercapnic resp. failure, declining while in ED, mental status worsening, eventually requiring intubation and admission to ICU. Pt was asked by home nursing and staff in the ED about code status, I also confirmed with the - Full Code. Ordered meropenem in ED, pt has multiple Abx allergy. Discussed w/ bond writer, symptoms likely d/t pulmonary edema rather than pna. IV lasix ordered. Allergies Allergy/AdvReac Type Severity Reaction Status Date / Time fluoxetine Allergy Severe ANAPHYLAXIS Verified 07/10/19 00:35 Insulins Allergy Severe LANTUS/LEVEMIR- Verified 07/10/19 00:35 HIVES/THROAT SWELLING moxifloxacin Allergy Severe HIVES Verified 07/10/19 00:35 nitrofurantoin Allergy Severe HIVES Verified 07/10/19 00:35 paroxetine Allergy Severe HIVES Verified 07/10/19 00:35 Quinolones Allergy Severe AVELOX & Verified 07/10/19 00:35 LEVAQUIN-HIVES amitriptyline Allergy Intermediate Sweats and Verified 07/10/19 00:35 itching buspirone Allergy Intermediate HIVES Verified 07/10/19 00:35 cephalexin Allergy Intermediate Hives Verified 07/10/19 00:35 citalopram Allergy Intermediate HIVES-RASH Verified 07/10/19 00:35 escitalopram Allergy Intermediate HIVES-RASH Verified 07/10/19 00:35 levofloxacin Allergy Intermediate Hives Verified 07/10/19 00:35 methadone Allergy Intermediate HIVES Verified 07/10/19 00:35 Penicillins Allergy Intermediate RASH,HIVES Verified 07/10/19 00:35 Serotonin 5HT-3 Antagonists Allergy Intermediate MIGRAINES Verified 07/10/19 00:35 TO SSRIs trazodone Allergy Intermediate BLOODY Verified 07/10/19 00:35 NOSE, HEADACHES,HIVES vancomycin Allergy Intermediate HIVES Verified 07/10/19 00:35 prednisone Allergy Mild CHEST Verified 07/10/19 00:35 TIGHTNESS carbamazepine Allergy Unknown HIVES-RASH- Verified 07/10/19 00:35 ITCHINESS cefepime Allergy Unknown face & arm Verified 07/10/19 00:35 redness/itching after 2nd or 3rd dose cefepime ceftriaxone Allergy Unknown Received Verified 07/10/19 00:35 in MTU (but needed benadryl for course of therapy Cipro Allergy Unknown ABD PAINS Verified 09/08/17 09:10 ciprofloxacin Allergy Unknown ABD PAINS Verified 07/10/19 00:35 sertraline Allergy Unknown UNKNOWN Verified 07/10/19 00:35 sitagliptin Allergy Unknown HIVES Verified 07/10/19 00:35 azithromycin Allergy Hives Verified 07/10/19 00:35 Cephalosporins Allergy Hives Verified 07/10/19 00:35 [facility] Allergy Unknown Verified 07/10/19 00:35 Tetracyclines AdvReac Severe HIVES Verified 07/10/19 00:35 Sulfa (Sulfonamide AdvReac Intermediate MIGRAINES Verified 07/10/19 00:35 Antibiotics) fexofenadine AdvReac Mild GI SYMPTOMS Verified 07/10/19 00:35 tizanidine AdvReac Mild ITCHING-HIV Verified 07/10/19 00:35 ES gentamicin AdvReac Unknown UNKNOWN Verified 07/10/19 00:35 lorazepam AdvReac Unknown Verified 07/10/19 00:35 blood Allergy Severe Anaphylaxis Uncoded 10/25/19 07:53 Home Medications Medication Instructions Recorded Confirmed Type celecoxib [Celebrex] 200 mg PO DAILY PRN 10/24/19 08/11/20 History cyanocobalamin (vitamin B-12) 1,000 mcg PO DAILY 10/24/19 08/11/20 History [Vitamin B-12] duloxetine 30 mg PO DAILY 10/24/19 08/11/20 History furosemide 40 mg PO QAM PRN 10/24/19 08/11/20 History levothyroxine 100 mcg PO DAILYBB 10/24/19 08/11/20 History montelukast 10 mg PO HS 10/24/19 08/11/20 History nortriptyline 10 mg PO HS 10/24/19 08/11/20 History nystatin [Nyamyc] 1 applic TOPICAL TID 10/24/19 08/11/20 History pregabalin 200 mg PO TID 10/24/19 08/11/20 History simvastatin 20 mg PO HS 10/24/19 08/11/20 History sumatriptan succinate 100 mg PO UD PRN MDD 2 10/24/19 08/11/20 History ursodiol 600 mg PO BID 10/24/19 08/11/20 History albuterol sulfate 2.5 mg CONTINUOUS NEBULIZATION Q6H 08/11/20 08/11/20 History PRN cholecalciferol (vitamin D3) 1,250 mcg PO WK 08/11/20 08/11/20 History duloxetine 60 mg PO DAILY 08/11/20 08/11/20 History empagliflozin [Jardiance] 25 mg PO QAM 08/11/20 08/11/20 History ferrous sulfate 325 mg PO DAILY 08/11/20 08/11/20 History folic acid 1 mg PO DAILY 08/11/20 08/11/20 History hydroxyzine pamoate 25 mg PO TID PRN 08/11/20 08/11/20 History insulin degludec [Tresiba 68 unit SUBCUT BID 08/11/20 08/11/20 History FlexTouch U-200] insulin regular human [Novolin R 30 unit SUBCUT .LUNCH 08/11/20 08/11/20 History Regular U-100 Insuln] insulin regular human [Novolin R 40 unit SUBCUT .EVENING MEAL 08/11/20 08/11/20 History Regular U-100 Insuln] insulin regular human [Novolin R 70 unit SUBCUT .BREAKFAST 08/11/20 08/11/20 History Regular U-100 Insuln] ketoconazole 1 applic TOPICAL BID 08/11/20 08/11/20 History levocetirizine 5 mg PO HS PRN 08/11/20 08/11/20 History metformin 500 mg PO DAILY 08/11/20 08/11/20 History mirtazapine 45 mg PO HS 08/11/20 08/11/20 History prednisone 40 mg PO .DAILY/UD 08/11/20 08/11/20 History Past Med/Surg History Medical History Cerebrovascular disease "history left thalamic stroke" Chronic hypercapnic respiratory failure Chronic pain disorder (01/24/14) COPD (chronic obstructive pulmonary disease) CVA (cerebral vascular accident) hx of L thalamus CVA Diabetes mellitus, type II Dyslipidemia HLD (hyperlipidemia) Hypertension Hypertension Hypertrophic cardiomyopathy Hypothyroidism Morbid obesity Obesity hypoventilation syndrome JOSE (obstructive sleep apnea) Recurrent UTI Surgical History H/O partial nephrectomy History of tonsillectomy Hx of nasal septoplasty S/P dilatation and curettage Status post tonsillectomy Family History Father Coronary heart disease Mother Diabetes Social History Smoking Status: Unknown if ever smoked Second Hand Exposure: No; Preferred Language: Divehi Communication Ability: Impaired Communication Ability Comment: patient intubated Manufacturing Operator Required: No Beliefs That Will Affect Care: None marital status: Current Living Situation: Spouse Current Living Situation Comment: living at home with Feels Safe at Home: Yes Safety Concerns: Feels Safe At This Time Assistive Devices: Oxygen - Continuous Review of Systems Review of Systems: Unobtainable due to cognitive status Physical Exam Constitutional: + acute distress (hypoxic on bipap), + morbidly obese and + altered mental status Eyes: PERRL, conjunctivae normal, anicteric sclerae ENMT: external ear and nose normal, oropharynx normal Neck: + thick neck Respiratory: normal respiratory effort (however pt on bipap and w/ worsening mental status); no labored breathing Cardiovascular: RRR, no murmur, no edema Chest (Breasts): Chest: normal inspection of chest Gastrointestinal (Abdomen): Inspection/Auscultation: normal bowel sounds Percussion/Palpation: abdomen soft; abdomen nontender, no guarding and abdomen not rigid + obese abdomen Musculoskeletal: Head/Neck/Chest: normocephalic, head atraumatic and neck supple Skin: no rashes, warm and dry Neurologic: moves all extremities and awake (able to answer questions but drowsy and not clear if answering appropriatel) Psychiatric: Orientation: alert (not able to check orientation questions, pt drowsy) Eye Contact: good eye contact Results & Data Results & Data ([facility]) Vital Signs (Past 12 Hours) Vital Signs Temp Pulse Pulse Resp BP BP Pulse Ox 08/11/20 18:16 98 H 16 156/80 H 92 08/11/20 18:13 70 18 103/56 L 96 08/11/20 18:10 97 H 95 H 29 H 91 08/11/20 16:22 101 H 18 100 08/11/20 16:21 101 H 18 178/74 H 96 08/11/20 15:20 37 C 99 H 22 189/69 H 96 Laboratory Results 08/11/20 08/11/20 08/11/20 Range/Units 17:56 16:43 16:09 WBC (4.8-10.8) K/uL RBC (4.2-5.4) M/uL Hgb (12.0-16.0) g/dL Hct (37-47) % MCV (80-100) fL MCH (25-34) pg MCHC (32-36) g/dL RDW Std Deviation (36.4-46.3) fL RDW Coeff of Duy (11.5-14.5) % Plt Count (130-400) K/uL MPV (7.4-10.4) fL Immature Gran % (Auto) % Neut % (Auto) % Lymph % (Auto) % [place] % (Auto) % Eos % (Auto) % Baso % (Auto) % Neut # (Auto) (1.4-6.5) K/uL Lymph # (Auto) (1.2-3.4) K/uL [place] # (Auto) (0.11-0.59) K/uL Eos # (Auto) (0-0.5) K/uL Baso # (Auto) (0-0.2) K/uL Immature Gran # (Auto) (0.00-0.02) K/uL Platelet Estimate (Normal) Polychromasia Hypochromasia Basophilic Stippling PT (9.0-12.0) Seconds INR (0.9-1.1) D-Dimer (0-500) ug/L FEU VBG pH 7.14 L VBG pCO2 134 H VBG pO2 65 VBG HCO3 45 VBG O2 Saturation 91.0 VBG Base Excess 11.3 Barometric Pressure 737.0 Sodium (136-145) mmol/L Potassium (3.5-5.1) mmol/L Chloride (98-107) mmol/L Carbon Dioxide (21-32) mmol/L Anion Gap (3-11) BUN (7-18) mg/dl Creatinine (0.6-1.2) mg/dl Est Cr Clr Drug Dosing ml/min Est GFR ( Amer) ml/min Est GFR (Non-Af Amer) ml/min BUN/Creatinine Ratio (10-20) Glucose (70-99) mg/dl Lactate 0.9 (0.4-2.0) mmol/L Calcium (8.5-10.1) mg/dl Magnesium (1.8-2.4) mg/dl Total Bilirubin (0.2-1) mg/dl AST (15-37) U/L ALT (12-78) U/L Alkaline Phosphatase (45-117) U/L Troponin I (0-0.045) ng/ml NT-Pro-B Natriuret Pep (0-900) pg/ml Total Protein (6.4-8.2) gm/dl Albumin (3.4-5.0) gm/dl Globulin (2.5-4.0) gm/dl Albumin/Globulin Ratio (0.9-2) Procalcitonin Pending COVID-19 Eval Order SARS-CoV-2 (PCR) (Negative) 08/11/20 08/11/20 08/11/20 Range/Units 16:09 16:01 16:01 WBC (4.8-10.8) K/uL RBC (4.2-5.4) M/uL Hgb (12.0-16.0) g/dL Hct (37-47) % MCV (80-100) fL MCH (25-34) pg MCHC (32-36) g/dL RDW Std Deviation (36.4-46.3) fL RDW Coeff of Duy (11.5-14.5) % Plt Count (130-400) K/uL MPV (7.4-10.4) fL Immature Gran % (Auto) % Neut % (Auto) % Lymph % (Auto) % [place] % (Auto) % Eos % (Auto) % Baso % (Auto) % Neut # (Auto) (1.4-6.5) K/uL Lymph # (Auto) (1.2-3.4) K/uL [place] # (Auto) (0.11-0.59) K/uL Eos # (Auto) (0-0.5) K/uL Baso # (Auto) (0-0.2) K/uL Immature Gran # (Auto) (0.00-0.02) K/uL Platelet Estimate (Normal) Polychromasia Hypochromasia Basophilic Stippling PT (9.0-12.0) Seconds INR (0.9-1.1) D-Dimer (0-500) ug/L FEU VBG pH Cancelled VBG pCO2 Cancelled VBG pO2 Cancelled VBG HCO3 Cancelled VBG O2 Saturation Cancelled VBG Base Excess Cancelled Barometric Pressure Cancelled Sodium (136-145) mmol/L Potassium (3.5-5.1) mmol/L Chloride (98-107) mmol/L Carbon Dioxide (21-32) mmol/L Anion Gap (3-11) BUN (7-18) mg/dl Creatinine (0.6-1.2) mg/dl Est Cr Clr Drug Dosing ml/min Est GFR ( Amer) ml/min Est GFR (Non-Af Amer) ml/min BUN/Creatinine Ratio (10-20) Glucose (70-99) mg/dl Lactate (0.4-2.0) mmol/L Calcium (8.5-10.1) mg/dl Magnesium (1.8-2.4) mg/dl Total Bilirubin (0.2-1) mg/dl AST (15-37) U/L ALT (12-78) U/L Alkaline Phosphatase (45-117) U/L Troponin I (0-0.045) ng/ml NT-Pro-B Natriuret Pep (0-900) pg/ml Total Protein (6.4-8.2) gm/dl Albumin (3.4-5.0) gm/dl Globulin (2.5-4.0) gm/dl Albumin/Globulin Ratio (0.9-2) Procalcitonin COVID-19 Eval Order Covid19 at [facility] SARS-CoV-2 (PCR) NEGATIVE (Negative) 08/11/20 08/11/20 08/11/20 Range/Units 15:00 15:00 15:00 WBC 7.76 (4.8-10.8) K/uL RBC 4.03 L (4.2-5.4) M/uL Hgb 11.2 L (12.0-16.0) g/dL Hct 40.7 (37-47) % MCV 101.0 H (80-100) fL MCH 27.8 (25-34) pg MCHC 27.5 L (32-36) g/dL RDW Std Deviation 66.4 H (36.4-46.3) fL RDW Coeff of Duy 17.9 H (11.5-14.5) % Plt Count 93 L (130-400) K/uL MPV 11.5 H (7.4-10.4) fL Immature Gran % (Auto) 1.2 % Neut % (Auto) 79.7 % Lymph % (Auto) 9.9 % [place] % (Auto) 7.9 % Eos % (Auto) 1.0 % Baso % (Auto) 0.3 % Neut # (Auto) 6.19 (1.4-6.5) K/uL Lymph # (Auto) 0.77 L (1.2-3.4) K/uL [place] # (Auto) 0.61 H (0.11-0.59) K/uL Eos # (Auto) 0.08 (0-0.5) K/uL Baso # (Auto) 0.02 (0-0.2) K/uL Immature Gran # (Auto) 0.09 H (0.00-0.02) K/uL Platelet Estimate Decreased L (Normal) Polychromasia 1+ Hypochromasia Present Basophilic Stippling 1+ PT 10.5 (9.0-12.0) Seconds INR 1.0 (0.9-1.1) D-Dimer 790 H* (0-500) ug/L FEU VBG pH VBG pCO2 VBG pO2 VBG HCO3 VBG O2 Saturation VBG Base Excess Barometric Pressure Sodium 142 (136-145) mmol/L Potassium 3.7 (3.5-5.1) mmol/L Chloride 100 (98-107) mmol/L Carbon Dioxide 39 H (21-32) mmol/L Anion Gap 3.0 (3-11) BUN 17 (7-18) mg/dl Creatinine 0.73 (0.6-1.2) mg/dl Est Cr Clr Drug Dosing 116.6 ml/min Est GFR ( Amer) 96.7 ml/min Est GFR (Non-Af Amer) 83.4 ml/min BUN/Creatinine Ratio 23.3 H (10-20) Glucose 239 H (70-99) mg/dl Lactate (0.4-2.0) mmol/L Calcium 8.7 (8.5-10.1) mg/dl Magnesium 2.2 (1.8-2.4) mg/dl Total Bilirubin 0.4 (0.2-1) mg/dl AST 9 L (15-37) U/L ALT 12 (12-78) U/L Alkaline Phosphatase 75 (45-117) U/L Troponin I < 0.015 (0-0.045) ng/ml NT-Pro-B Natriuret Pep 562 (0-900) pg/ml Total Protein 6.8 (6.4-8.2) gm/dl Albumin 3.3 L (3.4-5.0) gm/dl Globulin 3.5 (2.5-4.0) gm/dl Albumin/Globulin Ratio 0.9 (0.9-2) Procalcitonin COVID-19 Eval Order SARS-CoV-2 (PCR) (Negative) Diagnostic Findings CTA IMPRESSION: 1. No evidence for pulmonary embolus with limitations as described above. 2. Multifocal bilateral airspace opacities with dense consolidation in the bilateral lower lobes. This favors a pneumonia and could be due to viral process. There is also cardiomegaly, trace bilateral pleural effusions, and interlobular septal thickening. Therefore, superimposed pulmonary edema could also have a similar appearance. 3. Re-demonstration of the cirrhotic liver, splenomegaly, and ascites.
--- NOTE | 2020-08-11 19:42 | XRay Report ---
XR chest 1V portable HISTORY: intubation COMPARISON: Chest 08/11/2020. FINDINGS: Endotracheal tube terminates 3.5 cm and the markel. The nasogastric tube terminates below t he diaphragm. The tip is not included on this study. Progressive bilateral perihilar airspace opaciti es. Cardiomegaly and the bilateral pleural effusions persist. No pneumothorax. IMPRESSION: 1. Satisfactory support line placement. 2. Progressive bilateral airspace opacities. 3. Cardiomegaly and bilateral pleural effusions persist. ACT 112: Negative or not required by law. Electronically signed by: Rah Lutz M.D. 08/11/2020 7:41 PM
[2020-08-11] MEDS ORDERED: MIDAZOLAM HCL 5 MG/ML 1 ML VIAL IV STA (19:59)
[2020-08-11] MEDS ORDERED: ICU PROTOCOL FOR HYPERGLYCEMIA PRN (20:59)
[2020-08-11] MEDS: POTASSIUM CHLORIDE / WTR 10 MEQ/100 ML PLCT IV SCH ×2 (21:05→21:06)
[2020-08-11] MEDS: propofoL 1,000 MG/100 ML VIAL IV SCH ×2 (21:05→22:30)
--- NOTE | 2020-08-11 21:13 | Critical Care Consultation ---
Date of Consultation August 11, 2020 Assessment & Plan (1) Admitted to intensive care unit: Reason Critically Ill: 69-year-old female with acute on chronic hypoxic respiratory failure with hypoxia and hypercapnia requiring endotracheal intubation and ventilator management. NEURO - * CAM ICU: POSITIVE * Sedation: Propofol gtt * Pain: Fentanyl as needed * Metabolic Encephalopathy: * Likely secondary to CO2 narcosis. * Patient has already shown improvement in mentation upon arriving in the ICU. * Continue monitoring for any other neurological deficits that may warrant further imaging modalities, specifically head CT. CARDIAC/VASCULAR - * Hypertension, hyperlipidemia, CHF, hypertrophic cardiomyopathy, paroxysmal SVT: * Patient received IV Lasix in the emergency department with good response. * Would hold on further IV fluids currently. * Continue home medications as tolerated. * Previous echocardiogram on 10/27/2019 demonstrates an EF of 60 to 70%. * EKG: NSR @ [address]/T-wave changes. QTc 459 ms. * Monitor on telemetry. RESPIRATORY - * Acute on chronic hypoxic respiratory failure with hypercapnia: * Patient failed NIPPV in the ED --> progressively worsening AMS and respiratory acidosis. * Required emergent endotracheal intubation. * Will obtain ABGs as needed. * Titrate down ventilator settings as able. * Multifocal Pneumonia: * Received Meropenem in the ED (multiple antibiotic allergies). Will continue for now. * Hemoptysis: * Recurrent. Patient has experienced this during previous hospital admission as well. * Possibly 2/2 capillary bleeding in the setting of pneumonia/pulmonary edema. * Seems to have subsided currently. * Will monitor for worsening bleeding. GI/NUTRITION - * NGT in place. RENAL/LYTES - * No significant electrolyte derangements. - * UTI: * Recurrent. * Catheter sample shows positive nitrites and bacteria. * Previous urine cultures shows pansensitive Klebsiella pneumoniae and Group B Beta Strep. * Currently on Meropenem 2/2 multiple drug allergies. * Fererll in place - Strict I&Os. ENDO - * DMII: * BSGs per unit protocol. ISS --> gtt per unit policy. * Hypothyroidism: * Continue home Rx dosing. HEME - * Stable H&H * On review of prior visits, patient did have previous transfusion reaction to PRBCs in the setting of lower GIB. She subsequently required transfer to [facility] for washed PRBCs for ongoing transfusion needs. ID - * Pneumonia/UTI: * Currently covered w/ Meropenem. * Urine/Sputum cultures pending. * Hopeful for early deescalation. Will stay w/ Meropenem currently as the patient has multiple antibiotic allergies and has tolerated it well to this point. LINES/IV ACCESS - * PIVs x2 * ET Tube * Ferrell * NG DVT PROPHYLAXIS - * Will hold for now in the setting of hemoptysis. * SCDs I have personally spent 45 minutes of critical care time in the direct management of this patient. This is a life/limb threatening event. This includes time spent evaluating patient, direct bedside care, chart review, placing orders, interpretation of diagnostic studies, discussion with consultants, patient, and family members, as well as other required patient management activities. This time is exclusive of all separately billable procedures, and teaching time and separate from and in addition to any other critical care service time. Thank you for allowing us to participate in the care of this patient. Please refer to my attending physician's documentation for any further recommendations. (2) Acute on chronic respiratory failure with hypoxia and hypercapnia: (3) Metabolic encephalopathy: (4) Respiratory acidosis: (5) Cough with hemoptysis: (6) Morbid obesity: (7) CHF (congestive heart failure): (8) Recurrent UTI: (9) Pneumonia: (10) JOSE (obstructive sleep apnea): (11) HLD (hyperlipidemia): (12) Morbid obesity: (13) COPD (chronic obstructive pulmonary disease): (14) Hypothyroidism: (15) Obesity hypoventilation syndrome: (16) Hypertrophic cardiomyopathy: (17) Hypertension: (18) Diabetes mellitus, type II: (19) Dyslipidemia: Supervising Physician Co-Signing Physician Notes seen and examined. EMR reviewed. Discussed with admitting provider and NICK. See my PN from 08/12 for additional details. History of Present Illness Attending Physician: Koko Castro MD History of Present Illness Patient is a 69-year-old female with a significant past medical history of morbid obesity, recurrent UTIs, obstructive sleep apnea, COPD, obesity hypoventilation syndrome, chronic respiratory failure on oxygen at home, hy pertension, hyperlipidemia, CHF, hypertrophic cardiomyopathy, paroxysmal SVT, and history of CVA. The patient has had shortness of breath over the last few days. Upon presentation to the emergency department, the patient was placed on BiPAP. Throughout her stay, she decline clinically and became obtunded while on BiPAP. She was noted to have a significant degree of respiratory acidosis with a VBG pH of 7.14 and CO2 of 134. Patient underwent emergent endotracheal intubation. During intubation, dry blood was noted around the vocal cords. She did have some bloody secretions noted in the ET tube apparently after intubation and some bleeding from the naris where the NG tube was placed. Thankfully, the patient had no significant laboratory abnormalities noted otherwise. Her chest x-ray and CTA was concerning for lower lobe consolidation as well as degree of pulmonary edema and pleural effusions. She remains sedated on propofol. Upon assessment in the ICU, the patient awakens and is able to follow simple commands. She nods her head yes and no. She is otherwise unable to contribute to history of present illness secondary to need for sedation. Allergies Allergy/AdvReac Type Severity Reaction Status Date / Time fluoxetine Allergy Severe ANAPHYLAXIS Verified 07/10/19 00:35 Insulins Allergy Severe LANTUS/LEVEMIR- Verified 07/10/19 00:35 HIVES/THROAT SWELLING moxifloxacin Allergy Severe HIVES Verified 07/10/19 00:35 nitrofurantoin Allergy Severe HIVES Verified 07/10/19 00:35 paroxetine Allergy Severe HIVES Verified 07/10/19 00:35 Quinolones Allergy Severe AVELOX & Verified 07/10/19 00:35 LEVAQUIN-HIVES amitriptyline Allergy Intermediate Sweats and Verified 07/10/19 00:35 itching buspirone Allergy Intermediate HIVES Verified 07/10/19 00:35 cephalexin Allergy Intermediate Hives Verified 07/10/19 00:35 citalopram Allergy Intermediate HIVES-RASH Verified 07/10/19 00:35 escitalopram Allergy Intermediate HIVES-RASH Verified 07/10/19 00:35 levofloxacin Allergy Intermediate Hives Verified 07/10/19 00:35 methadone Allergy Intermediate HIVES Verified 07/10/19 00:35 Penicillins Allergy Intermediate RASH,HIVES Verified 07/10/19 00:35 Serotonin 5HT-3 Antagonists Allergy Intermediate MIGRAINES Verified 07/10/19 00:35 TO SSRIs trazodone Allergy Intermediate BLOODY Verified 07/10/19 00:35 NOSE, HEADACHES,HIVES vancomycin Allergy Intermediate HIVES Verified 07/10/19 00:35 prednisone Allergy Mild CHEST Verified 07/10/19 00:35 TIGHTNESS carbamazepine Allergy Unknown HIVES-RASH- Verified 07/10/19 00:35 ITCHINESS cefepime Allergy Unknown face & arm Verified 07/10/19 00:35 redness/itching after 2nd or 3rd dose cefepime ceftriaxone Allergy Unknown Received Verified 07/10/19 00:35 in MTU (but needed benadryl for course of therapy Cipro Allergy Unknown ABD PAINS Verified 09/08/17 09:10 ciprofloxacin Allergy Unknown ABD PAINS Verified 07/10/19 00:35 sertraline Allergy Unknown UNKNOWN Verified 07/10/19 00:35 sitagliptin Allergy Unknown HIVES Verified 07/10/19 00:35 azithromycin Allergy Hives Verified 07/10/19 00:35 Cephalosporins Allergy Hives Verified 07/10/19 00:35 [facility] Allergy Unknown Verified 07/10/19 00:35 Tetracyclines AdvReac Severe HIVES Verified 07/10/19 00:35 Sulfa (Sulfonamide AdvReac Intermediate MIGRAINES Verified 07/10/19 00:35 Antibiotics) fexofenadine AdvReac Mild GI SYMPTOMS Verified 07/10/19 00:35 tizanidine AdvReac Mild ITCHING-HIV Verified 07/10/19 00:35 ES gentamicin AdvReac Unknown UNKNOWN Verified 07/10/19 00:35 lorazepam AdvReac Unknown Verified 07/10/19 00:35 blood Allergy Severe Anaphylaxis Uncoded 10/25/19 07:53 Home Medications Medication Instructions Recorded Confirmed Type celecoxib [Celebrex] 200 mg PO DAILY PRN 10/24/19 08/11/20 History cyanocobalamin (vitamin B-12) 1,000 mcg PO DAILY 10/24/19 08/11/20 History [Vitamin B-12] duloxetine 30 mg PO DAILY 10/24/19 08/11/20 History furosemide 40 mg PO QAM PRN 10/24/19 08/11/20 History levothyroxine 100 mcg PO DAILYBB 10/24/19 08/11/20 History montelukast 10 mg PO HS 10/24/19 08/11/20 History nortriptyline 10 mg PO HS 10/24/19 08/11/20 History nystatin [Nyamyc] 1 applic TOPICAL TID 10/24/19 08/11/20 History pregabalin 200 mg PO TID 10/24/19 08/11/20 History simvastatin 20 mg PO HS 10/24/19 08/11/20 History sumatriptan succinate 100 mg PO UD PRN MDD 2 10/24/19 08/11/20 History ursodiol 600 mg PO BID 10/24/19 08/11/20 History albuterol sulfate 2.5 mg CONTINUOUS NEBULIZATION Q6H 08/11/20 08/11/20 History PRN cholecalciferol (vitamin D3) 1,250 mcg PO WK 08/11/20 08/11/20 History duloxetine 60 mg PO DAILY 08/11/20 08/11/20 History empagliflozin [Jardiance] 25 mg PO QAM 08/11/20 08/11/20 History ferrous sulfate 325 mg PO DAILY 08/11/20 08/11/20 History folic acid 1 mg PO DAILY 08/11/20 08/11/20 History hydroxyzine pamoate 25 mg PO TID PRN 08/11/20 08/11/20 History insulin degludec [Tresiba 68 unit SUBCUT BID 08/11/20 08/11/20 History FlexTouch U-200] insulin regular human [Novolin R 30 unit SUBCUT .LUNCH 08/11/20 08/11/20 History Regular U-100 Insuln] insulin regular human [Novolin R 40 unit SUBCUT .EVENING MEAL 08/11/20 08/11/20 History Regular U-100 Insuln] insulin regular human [Novolin R 70 unit SUBCUT .BREAKFAST 08/11/20 08/11/20 History Regular U-100 Insuln] ketoconazole 1 applic TOPICAL BID 08/11/20 08/11/20 History levocetirizine 5 mg PO HS PRN 08/11/20 08/11/20 History metformin 500 mg PO DAILY 08/11/20 08/11/20 History mirtazapine 45 mg PO HS 08/11/20 08/11/20 History prednisone 40 mg PO .DAILY/UD 08/11/20 08/11/20 History Patient History Medical History (Updated 08/12/20 @ 05:49 by Mika Reynoso PA-C) Cerebrovascular disease "history left thalamic stroke" Chronic hypercapnic respiratory failure Chronic pain disorder (01/24/14) COPD (chronic obstructive pulmonary disease) CVA (cerebral vascular accident) hx of L thalamus CVA Diabetes mellitus, type II Dyslipidemia HLD (hyperlipidemia) Hypertension Hypertension Hypertrophic cardiomyopathy Hypothyroidism Morbid obesity Obesity hypoventilation syndrome JOSE (obstructive sleep apnea) Recurrent UTI Surgical History H/O partial nephrectomy History of tonsillectomy Hx of nasal septoplasty S/P dilatation and curettage Status post tonsillectomy Family History Father Coronary heart disease Mother Diabetes Social History Smoking Status: Unknown if ever smoked Second Hand Exposure: No; Preferred Language: [place] Communication Ability: Impaired Communication Ability Comment: patient intubated [employer]ing [employer] Required: No Beliefs That Will Affect Care: None marital status: Current Living Situation: Spouse Current Living Situation Comment: living at home with Feels Safe at Home: Yes Safety Concerns: Feels Safe At This Time Assistive Devices: Oxygen - Continuous Review of Systems Review of Systems: Unobtainable due to endotracheal tube Physical Exam Physical Exam: VITAL SIGNS - Vital signs and nursing notes were reviewed. GENERAL - 69-year-old obese female appearing her stated age who is intubated and sedated. SKIN - Without rashes. HEAD - NC/AT. EYES - PERRL with EOMI bilaterally. Sclera anicteric. EARS - No deformities of external structures noted on gross examination bilaterally. NOSE - Midline and without cyanosis. NG tube in place with dried blood noted to the naris. MOUTH/OROPHARYNX - ET Tube in place. Without perioral cyanosis. Buccal mucosa pink and moist and without leukoplakia. NECK - Neck with FROM. Supple to palpation. No lymphadenopathy noted. No nuchal rigidity. LUNGS - Chest wall symmetric without accessory muscle use, intercostals retractions, or central cyanosis. Normal vesicular breath sounds CTA B/L. No wheezes, rales, or rhonchi appreciated. CARDIAC - RRR with S1/S2. No murmur, rubs, or gallops appreciated. ABDOMEN - Abdominal contour obese without pulsations or visible masses. BS normoactive all four quadrants. No tenderness, palpable masses, hepatosplenomegaly, or ascites noted. EXTREMITIES - No clubbing or peripheral cyanosis. Moderate pretibial edema present. +3/5 radial and dorsalis pedis pulses palpated throughout. +5/5 strength noted in UE/LE bilaterally. NEUROLOGIC - No focal neurological deficits noted. Patient able to follow simple commands bilaterally. Results & Data Results & Data ([facility]) Vital Signs (Past 12 Hours) Vital Signs Temp Pulse Pulse Resp BP BP Pulse Ox 08/11/20 20:47 85 20 92 08/11/20 19:55 108/53 L 98 08/11/20 19:50 75 100/52 L 100 08/11/20 19:46 81 113/56 L 98 08/11/20 19:45 82 123/58 L 99 08/11/20 19:40 78 127/64 96 08/11/20 19:35 84 118/59 L 100 08/11/20 19:30 84 114/53 L 97 08/11/20 19:27 89 97/64 L 97 08/11/20 19:20 82 100/49 L 96 08/11/20 19:18 84 80/47 L 98 08/11/20 19:17 89 68/50 L 100 08/11/20 19:10 98 H 106/56 L 97 08/11/20 19:08 100 H 127/62 96 08/11/20 19:04 88 124/53 L 94 08/11/20 19:00 83 93 08/11/20 18:52 88 20 93 08/11/20 18:50 77 91 08/11/20 18:40 95 H 33 H 91 08/11/20 18:31 97 H 25 H 90 08/11/20 18:30 96 H 32 H 153/61 H 90 08/11/20 18:20 98 H 26 H 91 08/11/20 18:16 98 H 16 156/80 H 92 08/11/20 18:13 70 18 103/56 L 96 08/11/20 18:10 95 H 95 H 30 H 94 08/11/20 18:01 97 H 27 H 90 08/11/20 18:00 98 H 24 156/60 H 91 08/11/20 17:50 98 H 27 H 91 08/11/20 17:40 96 H 25 H 92 08/11/20 17:31 98 H 30 H 93 08/11/20 17:30 94 H 32 H 153/63 H 93 08/11/20 17:24 100 H 29 H 161/57 H 93 08/11/20 17:20 95 H 31 H 93 08/11/20 17:10 96 H 29 H 93 08/11/20 17:04 97 H 25 H 91 08/11/20 16:40 95 H 27 H 92 08/11/20 16:31 97 H 30 H 08/11/20 16:30 99 H 26 H 182/73 H 08/11/20 16:22 101 H 18 100 08/11/20 16:21 103 H 101 H 25 H 178/74 H 178/74 H 96 08/11/20 16:20 96 H 30 H 08/11/20 16:10 101 H 25 H 08/11/20 16:01 98 H 28 H 94 08/11/20 16:00 96 H 30 H 186/76 H 93 08/11/20 15:50 96 H 29 H 94 08/11/20 15:40 100 H 31 H 94 08/11/20 15:35 100 H 34 H 192/69 H 94 08/11/20 15:31 101 H 23 96 08/11/20 15:30 100 H 30 H 193/71 H 94 08/11/20 15:25 100 H 23 96 08/11/20 15:20 37 C 96 H 33 H 189/69 H 96 Coding Level of Care Code Critical Care 1st 30-74 mins Diagnoses Admitted to intensive care unit Z78.9 Acute on chronic respiratory failure with hypoxia and hypercapnia J96.21; J96.22 Metabolic encephalopathy G93.41 Respiratory acidosis E87.2 Cough with hemoptysis R04.2 Morbid obesity E66.01 CHF (congestive heart failure) I50.9 Recurrent UTI N39.0 Pneumonia J18.1 Laterality: bilateral Lung location: lower lobe of lung Pneumonia type: due to unspecified organism JOSE (obstructive sleep apnea) G47.33 HLD (hyperlipidemia) E78.5 Morbid obesity E66.01 COPD (chronic obstructive pulmonary disease) J44.9 Hypothyroidism E03.9 Obesity hypoventilation syndrome E66.2 Hypertrophic cardiomyopathy I42.2 Hypertension I10 Diabetes mellitus, type II E11.9 Dyslipidemia E78.5 Time Spent (min) 45 (1) Pneumonia Laterality: bilateral Lung location: lower lobe of lung Pneumonia type: due to unspecified organism Qualified Code(s): J18.1 - Lobar pneumonia, unspecified organism
[2020-08-11] MEDS: fentaNYL citrate 100 MCG/2 ML VIAL IV PRN ×2 (21:20→23:52)
[2020-08-11 21:39] LABS: iSTAT Allen Test Pass; iSTAT Art Bld Gas pCO2 Correct 61 mmHg (35-46); iSTAT Arterial Blood Gas HCO3 41 meg/L (19-24); iSTAT Arterial Blood Gas pCO2 62 mmHg (35-46); iSTAT Arterial Blood Gas pH 7.43 (7.35-7.45); iSTAT Arterial Blood Gas pO2 50 mmHg (80-95); iSTAT Arterial Blood Gas pO2 C 49; iSTAT Carbon Dioxide > 40 mmol/L (24-31); iSTAT FiO2 60 %; iSTAT Hematocrit 37 % (37-47); iSTAT Hemoglobin 12.6 g/dl (12.0-16.0); iSTAT Potassium 3.6 mmol/L (3.3-5.0); iSTAT Site R Radial; iSTAT Sodium 143 mmol/L (135-144)
[2020-08-11 21:39] LABS: iSTAT Allen Test Pass; iSTAT Arterial Blood Gas HCO3 40 meg/L (19-24); iSTAT Arterial Blood Gas pCO2 59 mmHg (35-46); iSTAT Arterial Blood Gas pH 7.44 (7.35-7.45); iSTAT Arterial Blood Gas pO2 45 mmHg (80-95); iSTAT Carbon Dioxide > 40 mmol/L (24-31); iSTAT FiO2 60 %; iSTAT Site R Radial
--- NOTE | 2020-08-11 21:43 | Emergency Department Note ---
Impression & Plan Acute on chronic respiratory failure with hypoxia and hypercapnia, Encephalopathy acute, Cough with hemoptysis ED Provider Note Provider: González Tavares MD DATE OF SERVICE: 08/11/2020 CHIEF COMPLAINT: Shortness of breath HISTORY OF PRESENT ILLNESS: Patient is a 69-year-old female history of type 2 diabetes, CVA, COPD, CHF, chronic respiratory failure on home oxygen normally 4 L presenting here today via ambulance after her home health finally persuaded her to come in for evaluation. Reports over the past week or so she is been feeling short of breath and has had low pulse ox is over the last least 3 days. Patient states compliance with her home BiPAP at night. Patient does states she has been again feeling more increasingly short of breath as well as coughing up some blood. Denies significant chest pain or abdominal pain. Denies fever. Denies any falls or trauma. Patient states her nebulizers have minimally helped at home. REVIEW OF SYSTEMS: A total of 10 review of systems was obtained and negative except as stated above in the HPI. PAST MEDICAL HISTORY: As noted above MEDICATIONS: Reviewed home medication list SOCIAL HISTORY: Non-smoker, lives at home PHYSICAL EXAM: GENERAL: alert and oriented resting with eyes closed initially with a nonrebreather in place sitting up on the stretcher Head: normocephalic and atraumatic EYES: No injection, discharge or icterus. NECK: Trachea midline. ENT: Mucous membranes pink and moist. LUNGS: Airway patent. No retractions. Breath sounds with scattered wheeze significantly diminished in the bases. HEART: Regular rate and rhythm. No chest wall tenderness ABDOMEN: Soft and non-tender, without guarding or rebound. SKIN: Acyanotic, warm, dry, without rashes EXTREMITIES: Without deformity with 1+ lower extremity swelling. NEUROLOGICAL: No focal deficits. No aphasia. No facial droop or slurred speech. EK bpm sinus rhythm occasional PVC and PAC. No acute ST segment elevation or depression. QTC 459. CONTINUOUS CARDIAC MONITORING: was ordered and showed a heart rate of 70-100s bpm in normal sinus rhythm/sinus tachycardia with occasional PVC/PAC ED Intubation performed by myself Indication hypoxic and hypercapnic respiratory failure, encephalopathy The patient was on 100% oxygen via Bipap prior to the procedure. Suction, airway equipment, RSI drugs, respiratory equipment, and appropriate personnel were prepared prior to the initiation of the procedure. Induction was performed with 20 mg of etomidate and 150 mg of succinylcholine. After observing the clinical benefit of the medications, the airway was easily visualized utilizing a 3 glide scope; there was some evidence of brown dried blood around the vocal cords upon insertion of the glide scope. A 7.0 size ETT tube was placed atraumatically to 23 cm using standard technique. The cuff inflated without signs of malfunction. There were bilateral breath sounds, positive colormetric change, no gastric sounds, a good capnography waveform, and post procedure pulse oximetry was 98%. Post procedure x-ray ordered. Post intubation sedation utilizing propofol drip and fentanyl/Versed as needed. There were no complications. Patient's laboratory studies and imaging reviewed. Differential includes Reactive airway disease, pneumonia, pneumothorax, COPD, CHF, infections, cardiac ischemia, pulmonary embolism, musculoskeletal, robert rointestinal, as well as other pathologies. IMPRESSION/MEDICAL DECISION MAKING: Patient reports increased shortness of breath now more hypoxic with some hemoptysis. Significant respiratory history. Reviewed prior medical record here from past hospitalizations. Patient without significant leukocytosis or reported fever but CT scan completed after positive D-dimer concerning for possible pneumonia. No evidence of PE. Does not seem that fluid overloaded and BNP is not severely elevated lower suspicion for heart failure. Troponin is not significantly elevated. Patient became encephalopathic likely due to hypercarbia while here failing BiPAP. Hypoxic and hypercapnic respiratory failure is noted with acidosis on VBG. Patient not hypotensive. Trial of BiPAP with DuoNeb but mentation declined and given her respiratory status proceeded with intubation after discussion with the patient and her at bedside. Intubated as above. Placed on propofol and given fentanyl and Versed for sedation. Post intubation x-ray obtained. Covid negative. Multiple allergies however given her significant illness with intubation discussed with pharmacy and given a dose of meropenem for empiric antimicrobial coverage. Patient will be admitted to the ICU and the hospitalist has evaluated the patient. DIAGNOSIS: Hypoxic and hypercapnic respiratory failure, encephalopathy, hemoptysis DISPOSITION: Hospitalist will evaluate Critical Care I have personally spent 46 minutes of critical care time in the direct management of this patient. This includes bedside care, interpretation of diagnostic studies, and testing, discussion with consultants, patient, and family members, and other required patient management activities. These 46 minutes is in excess of all separately billable procedures. Past Med/Surg History Medical History (Updated 08/11/20 @ 21:53 by González Tavares M.D.) Cerebrovascular disease "history left thalamic stroke" Chronic hypercapnic respiratory failure Chronic pain disorder (01/24/14) COPD (chronic obstructive pulmonary disease) CVA (cerebral vascular accident) hx of L thalamus CVA Diabetes mellitus, type II Dyslipidemia HLD (hyperlipidemia) Hypertension Hypertension Hypertrophic cardiomyopathy Hypothyroidism Morbid obesity Obesity hypoventilation syndrome JOSE (obstructive sleep apnea) Recurrent UTI Surgical History H/O partial nephrectomy History of tonsillectomy Hx of nasal septoplasty S/P dilatation and curettage Status post tonsillectomy Family History Father Coronary heart disease Mother Diabetes Social History Smoking Status: Unknown if ever smoked Second Hand Exposure: No; Preferred Language: Croatian Communication Ability: Impaired Communication Ability Comment: patient intubated 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: No Beliefs That Will Affect Care: None marital status: Current Living Situation: Spouse Current Living Situation Comment: living at home with Feels Safe at Home: Yes Safety Concerns: Feels Safe At This Time Assistive Devices: BiPap, CPAP, Oxygen - Continuous and Wheelchair Allergies Allergies Allergy/AdvReac Type Severity Reaction Status Date / Time fluoxetine Allergy Severe ANAPHYLAXIS Verified 07/10/19 00:35 Insulins Allergy Severe LANTUS/LEVEMIR- Verified 07/10/19 00:35 HIVES/THROAT SWELLING moxifloxacin Allergy Severe HIVES Verified 07/10/19 00:35 nitrofurantoin Allergy Severe HIVES Verified 07/10/19 00:35 paroxetine Allergy Severe HIVES Verified 07/10/19 00:35 Quinolones Allergy Severe AVELOX & Verified 07/10/19 00:35 LEVAQUIN-HIVES amitriptyline Allergy Intermediate Sweats and Verified 07/10/19 00:35 itching buspirone Allergy Intermediate HIVES Verified 07/10/19 00:35 cephalexin Allergy Intermediate Hives Verified 07/10/19 00:35 citalopram Allergy Intermediate HIVES-RASH Verified 07/10/19 00:35 escitalopram Allergy Intermediate HIVES-RASH Verified 07/10/19 00:35 levofloxacin Allergy Intermediate Hives Verified 07/10/19 00:35 methadone Allergy Intermediate HIVES Verified 07/10/19 00:35 Penicillins Allergy Intermediate RASH,HIVES Verified 07/10/19 00:35 Serotonin 5HT-3 Antagonists Allergy Intermediate MIGRAINES Verified 07/10/19 00:35 TO SSRIs trazodone Allergy Intermediate BLOODY Verified 07/10/19 00:35 NOSE, HEADACHES,HIVES vancomycin Allergy Intermediate HIVES Verified 07/10/19 00:35 prednisone Allergy Mild CHEST Verified 07/10/19 00:35 TIGHTNESS carbamazepine Allergy Unknown HIVES-RASH- Verified 07/10/19 00:35 ITCHINESS cefepime Allergy Unknown face & arm Verified 07/10/19 00:35 redness/itching after 2nd or 3rd dose cefepime ceftriaxone Allergy Unknown Received Verified 07/10/19 00:35 in MTU (but needed benadryl for course of therapy Cipro Allergy Unknown ABD PAINS Verified 09/08/17 09:10 ciprofloxacin Allergy Unknown ABD PAINS Verified 07/10/19 00:35 sertraline Allergy Unknown UNKNOWN Verified 07/10/19 00:35 sitagliptin Allergy Unknown HIVES Verified 07/10/19 00:35 azithromycin Allergy Hives Verified 07/10/19 00:35 Cephalosporins Allergy Hives Verified 07/10/19 00:35 [facility] Allergy Unknown Verified 07/10/19 00:35 Tetracyclines AdvReac Severe HIVES Verified 07/10/19 00:35 Sulfa (Sulfonamide AdvReac Intermediate MIGRAINES Verified 07/10/19 00:35 Antibiotics) fexofenadine AdvReac Mild GI SYMPTOMS Verified 07/10/19 00:35 tizanidine AdvReac Mild ITCHING-HIV Verified 07/10/19 00:35 ES gentamicin AdvReac Unknown UNKNOWN Verified 07/10/19 00:35 lorazepam AdvReac Unknown Verified 07/10/19 00:35 blood Allergy Severe Anaphylaxis Uncoded 10/25/19 07:53 Home Meds Home Medications Medication Instructions Recorded Confirmed celecoxib [Celebrex] 200 mg PO DAILY PRN 10/24/19 08/11/20 cyanocobalamin (vitamin B-12) 1,000 mcg PO DAILY 10/24/19 08/11/20 [Vitamin B-12] duloxetine 30 mg PO DAILY 10/24/19 08/11/20 furosemide 40 mg PO QAM PRN 10/24/19 08/11/20 levothyroxine 100 mcg PO DAILYBB 10/24/19 08/11/20 montelukast 10 mg PO HS 10/24/19 08/11/20 nortriptyline 10 mg PO HS 10/24/19 08/11/20 nystatin [Nyamyc] 1 applic TOPICAL TID 10/24/19 08/11/20 pregabalin 200 mg PO TID 10/24/19 08/11/20 simvastatin 20 mg PO HS 10/24/19 08/11/20 sumatriptan succinate 100 mg PO UD PRN MDD 2 10/24/19 08/11/20 ursodiol 600 mg PO BID 10/24/19 08/11/20 albuterol sulfate 2.5 mg CONTINUOUS NEBULIZATION Q6H 08/11/20 08/11/20 PRN cholecalciferol (vitamin D3) 1,250 mcg PO WK 08/11/20 08/11/20 duloxetine 60 mg PO DAILY 08/11/20 08/11/20 empagliflozin [Jardiance] 25 mg PO QAM 08/11/20 08/11/20 ferrous sulfate 325 mg PO DAILY 08/11/20 08/11/20 folic acid 1 mg PO DAILY 08/11/20 08/11/20 hydroxyzine pamoate 25 mg PO TID PRN 08/11/20 08/11/20 insulin degludec [Tresiba 68 unit SUBCUT BID 08/11/20 08/11/20 FlexTouch U-200] insulin regular human [Novolin R 30 unit SUBCUT .LUNCH 08/11/20 08/11/20 Regular U-100 Insuln] insulin regular human [Novolin R 40 unit SUBCUT .EVENING MEAL 08/11/20 08/11/20 Regular U-100 Insuln] insulin regular human [Novolin R 70 unit SUBCUT .BREAKFAST 08/11/20 08/11/20 Regular U-100 Insuln] ketoconazole 1 applic TOPICAL BID 08/11/20 08/11/20 levocetirizine 5 mg PO HS PRN 08/11/20 08/11/20 metformin 500 mg PO DAILY 08/11/20 08/11/20 mirtazapine 45 mg PO HS 08/11/20 08/11/20 prednisone 40 mg PO .DAILY/UD 08/11/20 08/11/20 Results & Data (ED) Vital Signs Vital Signs - 24 hr 08/11/20 15:20 08/11/20 15:25 08/11/20 15:30 Temperature 37 C Temperature Source Oral Pulse Rate 96 H 100 H 100 H Pulse Rate [Bilateral] Pulse Rate from SpO2 Sensor 98 H 99 H 100 H Respiratory Rate 33 H 23 30 H Respiratory Effort / Characteristics Spontaneous Respiratory Depth Respiratory Pattern Blood Pressure 189/69 H 193/71 H Blood Pressure [Left Arm] Blood Pressure Mean 109 111 Blood Pressure Mean [Left Arm] Pulse Oximetry 96 96 94 Oxygen Delivery Method Non-rebreather Oxygen Flow Rate 15 Fraction of Inspired Oxygen Sepsis Recent Fever Within 48 Hours No Sepsis New/Unexplained Change in Mental Status No Sepsis Action Taken by Nursing No Action Required End-Tidal CO2 08/11/20 15:31 08/11/20 15:35 08/11/20 15:40 Temperature Temperature Source Pulse Rate 101 H 100 H 100 H Pulse Rate [Bilateral] Pulse Rate from SpO2 Sensor 101 H 101 H 100 H Respiratory Rate 23 34 H 31 H Respiratory Effort / Characteristics Respiratory Depth Respiratory Pattern Blood Pressure 192/69 H Blood Pressure [Left Arm] Blood Pressure Mean 110 Blood Pressure Mean [Left Arm] Pulse Oximetry 96 94 94 Oxygen Delivery Method Oxygen Flow Rate Fraction of Inspired Oxygen Sepsis Recent Fever Within 48 Hours Sepsis New/Unexplained Change in Mental Status Sepsis Action Taken by Nursing End-Tidal CO2 08/11/20 15:50 08/11/20 16:00 08/11/20 16:01 Temperature Temperature Source Pulse Rate 96 H 96 H 98 H Pulse Rate [Bilateral] Pulse Rate from SpO2 Sensor 99 H 98 H 99 H Respiratory Rate 29 H 30 H 28 H Respiratory Effort / Characteristics Respiratory Depth Respiratory Pattern Blood Pressure 186/76 H Blood Pressure [Left Arm] Blood Pressure Mean 112 Blood Pressure Mean [Left Arm] Pulse Oximetry 94 93 94 Oxygen Delivery Method Oxygen Flow Rate Fraction of Inspired Oxygen Sepsis Recent Fever Within 48 Hours Sepsis New/Unexplained Change in Mental Status Sepsis Action Taken by Nursing End-Tidal CO2 08/11/20 16:10 08/11/20 16:20 08/11/20 16:21 Temperature Temperature Source Pulse Rate 101 H 96 H 103 H Pulse Rate [Bilateral] 101 H Pulse Rate from SpO2 Sensor Respiratory Rate 25 H 30 H 25 H Respiratory Effort / Characteristics Non-Labored Respiratory Depth Shallow Respiratory Pattern Regular Blood Pressure 178/74 H Blood Pressure [Left Arm] 178/74 H Blood Pressure Mean 108 Blood Pressure Mean [Left Arm] 108 Pulse Oximetry 96 Oxygen Delivery Method Non-rebreather Oxygen Flow Rate Fraction of Inspired Oxygen Sepsis Recent Fever Within 48 Hours Sepsis New/Unexplained Change in Mental Status Sepsis Action Taken by Nursing End-Tidal CO2 08/11/20 16:22 08/11/20 16:30 08/11/20 16:31 Temperature Temperature Source Pulse Rate 101 H 99 H 97 H Pulse Rate [Bilateral] Pulse Rate from SpO2 Sensor Respiratory Rate 18 26 H 30 H Respiratory Effort / Characteristics Respiratory Depth Respiratory Pattern Blood Pressure 182/73 H Blood Pressure [Left Arm] Blood Pressure Mean 109 Blood Pressure Mean [Left Arm] Pulse Oximetry 100 Oxygen Delivery Method Non-rebreather Oxygen Flow Rate 15 Fraction of Inspired Oxygen Sepsis Recent Fever Within 48 Hours Sepsis New/Unexplained Change in Mental Status Sepsis Action Taken by Nursing End-Tidal CO2 08/11/20 16:40 08/11/20 17:04 08/11/20 17:10 Temperature Temperature Source Pulse Rate 95 H 97 H 96 H Pulse Rate [Bilateral] Pulse Rate from SpO2 Sensor 95 H 98 H 98 H Respiratory Rate 27 H 25 H 29 H Respiratory Effort / Characteristics Respiratory Depth Respiratory Pattern Blood Pressure Blood Pressure [Left Arm] Blood Pressure Mean Blood Pressure Mean [Left Arm] Pulse Oximetry 92 91 93 Oxygen Delivery Method Oxygen Flow Rate Fraction of Inspired Oxygen Sepsis Recent Fever Within 48 Hours Sepsis New/Unexplained Change in Mental Status Sepsis Action Taken by Nursing End-Tidal CO2 08/11/20 17:20 08/11/20 17:24 08/11/20 17:30 Temperature Temperature Source Pulse Rate 95 H 100 H 94 H Pulse Rate [Bilateral] Pulse Rate from SpO2 Sensor 90 101 H 94 H Respiratory Rate 31 H 29 H 32 H Respiratory Effort / Characteristics Respiratory Depth Respiratory Pattern Blood Pressure 161/57 H 153/63 H Blood Pressure [Left Arm] Blood Pressure Mean 91 93 Blood Pressure Mean [Left Arm] Pulse Oximetry 93 93 93 Oxygen Delivery Method Oxygen Flow Rate Fraction of Inspired Oxygen Sepsis Recent Fever Within 48 Hours Sepsis New/Unexplained Change in Mental Status Sepsis Action Taken by Nursing End-Tidal CO2 08/11/20 17:31 08/11/20 17:40 08/11/20 17:50 Temperature Temperature Source Pulse Rate 98 H 96 H 98 H Pulse Rate [Bilateral] Pulse Rate from SpO2 Sensor 97 H 97 H 101 H Respiratory Rate 30 H 25 H 27 H Respiratory Effort / Characteristics Respiratory Depth Respiratory Pattern Blood Pressure Blood Pressure [Left Arm] Blood Pressure Mean Blood Pressure Mean [Left Arm] Pulse Oximetry 93 92 91 Oxygen Delivery Method Oxygen Flow Rate Fraction of Inspired Oxygen Sepsis Recent Fever Within 48 Hours Sepsis New/Unexplained Change in Mental Status Sepsis Action Taken by Nursing End-Tidal CO2 08/11/20 18:00 08/11/20 18:01 08/11/20 18:10 Temperature Temperature Source Pulse Rate 98 H 97 H 95 H Pulse Rate [Bilateral] 95 H Pulse Rate from SpO2 Sensor 96 H 95 H 96 H Respiratory Rate 24 27 H 30 H Respiratory Effort / Characteristics Spontaneous Respiratory Depth Respiratory Pattern Rapid/Shallow Tachypnea Blood Pressure 156/60 H Blood Pressure [Left Arm] Blood Pressure Mean 92 Blood Pressure Mean [Left Arm] Pulse Oximetry 91 90 94 Oxygen Delivery Method BiPAP Oxygen Flow Rate Fraction of Inspired Oxygen 80 Sepsis Recent Fever Within 48 Hours Sepsis New/Unexplained Change in Mental Status Sepsis Action Taken by Nursing End-Tidal CO2 08/11/20 18:13 08/11/20 18:16 08/11/20 18:20 Temperature Temperature Source Pulse Rate 98 H Pulse Rate [Bilateral] 70 98 H Pulse Rate from SpO2 Sensor 96 H Respiratory Rate 18 16 26 H Respiratory Effort / Characteristics Respiratory Depth Respiratory Pattern Blood Pressure Blood Pressure [Left Arm] 103/56 L 156/80 H Blood Pressure Mean Blood Pressure Mean [Left Arm] 71 105 Pulse Oximetry 96 92 91 Oxygen Delivery Method Room Air BiPAP Oxygen Flow Rate Fraction of Inspired Oxygen Sepsis Recent Fever Within 48 Hours Sepsis New/Unexplained Change in Mental Status Sepsis Action Taken by Nursing End-Tidal CO2 08/11/20 18:30 08/11/20 18:31 08/11/20 18:40 Temperature Temperature Source Pulse Rate 96 H 97 H 95 H Pulse Rate [Bilateral] Pulse Rate from SpO2 Sensor 96 H 94 H 92 H Respiratory Rate 32 H 25 H 33 H Respiratory Effort / Characteristics Respiratory Depth Respiratory Pattern Blood Pressure 153/61 H Blood Pressure [Left Arm] Blood Pressure Mean 91 Blood Pressure Mean [Left Arm] Pulse Oximetry 90 90 91 Oxygen Delivery Method Oxygen Flow Rate Fraction of Inspired Oxygen Sepsis Recent Fever Within 48 Hours Sepsis New/Unexplained Change in Mental Status Sepsis Action Taken by Nursing End-Tidal CO2 08/11/20 18:50 08/11/20 18:52 Temperature Temperature Source Pulse Rate 77 88 Pulse Rate [Bilateral] Pulse Rate from SpO2 Sensor 81 Respiratory Rate 20 Respiratory Effort / Characteristics Respiratory Depth Respiratory Pattern Blood Pressure Blood Pressure [Left Arm] Blood Pressure Mean Blood Pressure Mean [Left Arm] Pulse Oximetry 91 93 Oxygen Delivery Method Oxygen Flow Rate Fraction of Inspired Oxygen 80 Sepsis Recent Fever Within 48 Hours Sepsis New/Unexplained Change in Mental Status Sepsis Action Taken by Nursing End-Tidal CO2 79 68 Laboratory Data Result diagrams: 08/11/20 15:00 08/11/20 15:00 Lab Results 08/11/20 08/11/20 08/11/20 Range/Units 15:00 15:00 15:00 WBC 7.76 (4.8-10.8) K/uL RBC 4.03 L (4.2-5.4) M/uL Hgb 11.2 L (12.0-16.0) g/dL Hct 40.7 (37-47) % MCV 101.0 H (80-100) fL MCH 27.8 (25-34) pg MCHC 27.5 L (32-36) g/dL RDW Std Deviation 66.4 H (36.4-46.3) fL RDW Coeff of Duy 17.9 H (11.5-14.5) % Plt Count 93 L (130-400) K/uL MPV 11.5 H (7.4-10.4) fL Immature Gran % (Auto) 1.2 % Neut % (Auto) 79.7 % Lymph % (Auto) 9.9 % Banks % (Auto) 7.9 % Eos % (Auto) 1.0 % Baso % (Auto) 0.3 % Neut # (Auto) 6.19 (1.4-6.5) K/uL Lymph # (Auto) 0.77 L (1.2-3.4) K/uL Banks # (Auto) 0.61 H (0.11-0.59) K/uL Eos # (Auto) 0.08 (0-0.5) K/uL Baso # (Auto) 0.02 (0-0.2) K/uL Immature Gran # (Auto) 0.09 H (0.00-0.02) K/uL Platelet Estimate Decreased L (Normal) Polychromasia 1+ Hypochromasia Present Basophilic Stippling 1+ PT 10.5 (9.0-12.0) Seconds INR 1.0 (0.9-1.1) D-Dimer 790 H* (0-500) ug/L FEU VBG pH VBG pCO2 VBG pO2 VBG HCO3 VBG O2 Saturation VBG Base Excess Barometric Pressure Sodium 142 (136-145) mmol/L Potassium 3.7 (3.5-5.1) mmol/L Chloride 100 (98-107) mmol/L Carbon Dioxide 39 H (21-32) mmol/L Anion Gap 3.0 (3-11) BUN 17 (7-18) mg/dl Creatinine 0.73 (0.6-1.2) mg/dl Est Cr Clr Drug Dosing 116.6 ml/min Est GFR ( Amer) 96.7 ml/min Est GFR (Non-Af Amer) 83.4 ml/min BUN/Creatinine Ratio 23.3 H (10-20) Glucose 239 H (70-99) mg/dl Lactate (0.4-2.0) mmol/L Calcium 8.7 (8.5-10.1) mg/dl Magnesium 2.2 (1.8-2.4) mg/dl Total Bilirubin 0.4 (0.2-1) mg/dl AST 9 L (15-37) U/L ALT 12 (12-78) U/L Alkaline Phosphatase 75 (45-117) U/L Troponin I < 0.015 (0-0.045) ng/ml NT-Pro-B Natriuret Pep 562 (0-900) pg/ml Total Protein 6.8 (6.4-8.2) gm/dl Albumin 3.3 L (3.4-5.0) gm/dl Globulin 3.5 (2.5-4.0) gm/dl Albumin/Globulin Ratio 0.9 (0.9-2) Procalcitonin (0-0.5) ng/ml COVID-19 Eval Order SARS-CoV-2 (PCR) (Negative) 08/11/20 08/11/20 08/11/20 Range/Units 16:01 16:01 16:09 WBC (4.8-10.8) K/uL RBC (4.2-5.4) M/uL Hgb (12.0-16.0) g/dL Hct (37-47) % MCV (80-100) fL MCH (25-34) pg MCHC (32-36) g/dL RDW Std Deviation (36.4-46.3) fL RDW Coeff of Duy (11.5-14.5) % Plt Count (130-400) K/uL MPV (7.4-10.4) fL Immature Gran % (Auto) % Neut % (Auto) % Lymph % (Auto) % Banks % (Auto) % Eos % (Auto) % Baso % (Auto) % Neut # (Auto) (1.4-6.5) K/uL Lymph # (Auto) (1.2-3.4) K/uL Banks # (Auto) (0.11-0.59) K/uL Eos # (Auto) (0-0.5) K/uL Baso # (Auto) (0-0.2) K/uL Immature Gran # (Auto) (0.00-0.02) K/uL Platelet Estimate (Normal) Polychromasia Hypochromasia Basophilic Stippling PT (9.0-12.0) Seconds INR (0.9-1.1) D-Dimer (0-500) ug/L FEU VBG pH Cancelled VBG pCO2 Cancelled VBG pO2 Cancelled VBG HCO3 Cancelled VBG O2 Saturation Cancelled VBG Base Excess Cancelled Barometric Pressure Cancelled Sodium (136-145) mmol/L Potassium (3.5-5.1) mmol/L Chloride (98-107) mmol/L Carbon Dioxide (21-32) mmol/L Anion Gap (3-11) BUN (7-18) mg/dl Creatinine (0.6-1.2) mg/dl Est Cr Clr Drug Dosing ml/min Est GFR ( Amer) ml/min Est GFR (Non-Af Amer) ml/min BUN/Creatinine Ratio (10-20) Glucose (70-99) mg/dl Lactate (0.4-2.0) mmol/L Calcium (8.5-10.1) mg/dl Magnesium (1.8-2.4) mg/dl Total Bilirubin (0.2-1) mg/dl AST (15-37) U/L ALT (12-78) U/L Alkaline Phosphatase (45-117) U/L Troponin I (0-0.045) ng/ml NT-Pro-B Natriuret Pep (0-900) pg/ml Total Protein (6.4-8.2) gm/dl Albumin (3.4-5.0) gm/dl Globulin (2.5-4.0) gm/dl Albumin/Globulin Ratio (0.9-2) Procalcitonin (0-0.5) ng/ml COVID-19 Eval Order Covid19 at [facility] SARS-CoV-2 (PCR) NEGATIVE (Negative) 08/11/20 08/11/20 08/11/20 Range/Units 16:09 16:43 17:56 WBC (4.8-10.8) K/uL RBC (4.2-5.4) M/uL Hgb (12.0-16.0) g/dL Hct (37-47) % MCV (80-100) fL MCH (25-34) pg MCHC (32-36) g/dL RDW Std Deviation (36.4-46.3) fL RDW Coeff of Duy (11.5-14.5) % Plt Count (130-400) K/uL MPV (7.4-10.4) fL Immature Gran % (Auto) % Neut % (Auto) % Lymph % (Auto) % Banks % (Auto) % Eos % (Auto) % Baso % (Auto) % Neut # (Auto) (1.4-6.5) K/uL Lymph # (Auto) (1.2-3.4) K/uL Banks # (Auto) (0.11-0.59) K/uL Eos # (Auto) (0-0.5) K/uL Baso # (Auto) (0-0.2) K/uL Immature Gran # (Auto) (0.00-0.02) K/uL Platelet Estimate (Normal) Polychromasia Hypochromasia Basophilic Stippling PT (9.0-12.0) Seconds INR (0.9-1.1) D-Dimer (0-500) ug/L FEU VBG pH 7.14 L VBG pCO2 134 H VBG pO2 65 VBG HCO3 45 VBG O2 Saturation 91.0 VBG Base Excess 11.3 Barometric Pressure 737.0 Sodium (136-145) mmol/L Potassium (3.5-5.1) mmol/L Chloride (98-107) mmol/L Carbon Dioxide (21-32) mmol/L Anion Gap (3-11) BUN (7-18) mg/dl Creatinine (0.6-1.2) mg/dl Est Cr Clr Drug Dosing ml/min Est GFR ( Amer) ml/min Est GFR (Non-Af Amer) ml/min BUN/Creatinine Ratio (10-20) Glucose (70-99) mg/dl Lactate 0.9 (0.4-2.0) mmol/L Calcium (8.5-10.1) mg/dl Magnesium (1.8-2.4) mg/dl Total Bilirubin (0.2-1) mg/dl AST (15-37) U/L ALT (12-78) U/L Alkaline Phosphatase (45-117) U/L Troponin I (0-0.045) ng/ml NT-Pro-B Natriuret Pep (0-900) pg/ml Total Protein (6.4-8.2) gm/dl Albumin (3.4-5.0) gm/dl Globulin (2.5-4.0) gm/dl Albumin/Globulin Ratio (0.9-2) Procalcitonin < 0.05 (0-0.5) ng/ml COVID-19 Eval Order SARS-CoV-2 (PCR) (Negative) Administered Medications Fentanyl Citrate (Fentanyl Citrate 100 Mcg/2 Ml Vial) 25 mcg IV Q2H PRN PRN Reason: Moderate Pain (4,5,6) on NRS Stop: 08/25/20 21:09 Last Admin: 08/11/20 21:20 Dose: 25 mcg Documented by: [id number] Propofol (Diprivan) 1,000 mg in 100 mls @ 19.392 mls/hr IV .Q5H10M [facility]; Protocol Stop: 08/14/20 18:44 Last Admin: 08/11/20 21:05 Dose: Not Given Documented by: [id number] Discontinued Medications Albuterol (Albut/Ipratrop 3mg/0.5mg Neb 3 Ml Vial) 12 ml NEB ONE ONE Stop: 08/11/20 17:54 Last Admin: 08/11/20 18:09 Dose: 12 ml Documented by: [id number] Furosemide (Furosemide 40 Mg/4 Ml Vial) 40 mg IV NOW STA Stop: 08/11/20 18:54 Last Admin: 08/11/20 21:05 Dose: Not Given Documented by: [id number] Meropenem 500 mg/ Syringe 10 mls @ 2 mls/min IV NOW STA; Protocol Stop: 08/11/20 18:07 Last Admin: 08/11/20 19:33 Dose: 2 mls/min Documented by: [id number] Potassium Chloride (K Javi / Wtr) 10 meq in 100 mls @ 100 mls/hr IV Q1H [facility] Stop: 08/11/20 20:52 Last Admin: 08/11/20 21:06 Dose: Not Given Documented by: [id number] Admin: 08/11/20 21:05 Dose: Not Given Documented by: [id number] Ioversol (Optiray 320 125ml) 119 ml IV ONCE ONE Stop: 08/11/20 17:07 Last Admin: 08/11/20 17:06 Dose: 1 ml Documented by: [id number] Midazolam HCl (Midazolam Hcl 5 Mg/Ml 1 Ml Vial) 5 mg IV NOW STA Stop: 08/11/20 20:00 Last Admin: 08/11/20 21:06 Dose: Not Given Documented by: [id number] Miscellaneous (Rapid Sequence Induction Bag) Confirm Administered Dose 1 ea .ROUTE .STK-MED ONE Stop: 08/11/20 18:30 Last Admin: 08/11/20 21:04 Dose: Not Given Documented by: [id number] Propofol (Propofol Iv Emulsion 10 Mg/Ml 100 Ml Vial) Confirm Administered Dose 1,000 mg IV .STK-MED ONE Stop: 08/11/20 18:44 Last Admin: 08/11/20 21:04 Dose: Not Given Documented by: [id number] Imaging Data Radiologist's Impression: Chest X-Ray 08/11/20 15:36 XR chest 1V portable HISTORY: Dyspnea COMPARISON: Chest 10/25/2019. FINDINGS: No pneumothorax. Small to moderate right and small left pleural effusions. Perihilar hazy airspace opacities, right greater the left with diffuse interstitial/vascular thickening. This favors moderate pulmonary edema. An atypical pneumonia could also have a similar appearance in the appropriate clinical setting. There are low lung volumes. The heart remains enlarged. IMPRESSION: 1. Above findings favor moderate asymmetric pulmonary edema with bilateral pleural effusions. 2. An atypical pneumonia could also have a similar appearance in the appropriate clinical setting. ACT 112: Negative or not required by law. Electronically signed by: Rah Lutz M.D. 08/11/2020 4:32 PM Chest CTA 08/11/20 16:31 CHEST CTA for PULMONARY ARTERIES CT DOSE: 832.09 mGy.cm HISTORY: PE, +dimer, hypoxia TECHNIQUE: Multiaxial CT images of the chest were performed following the intravenous administration of contrast to evaluate the pulmonary arteries. Maximal intensity projection images were also obtained. A dose lowering technique was utilized adhering to the principles of ALARA. COMPARISON STUDY: Chest CTA 11/04/2019. FINDINGS: Normal caliber thoracic aorta with no evidence for dissection. The heart is enlarged. No pericardial effusions. There are trace bilateral pleural effusions. Stable prominent mediastinal lymph nodes. Near nondiagnostic evaluation of the majority of the segmental and subsegmental pulmonary arteries due to the motion artifact and bilateral airspace opacities. However, no definite filling defects within the pulmonary arteries to suggest a pulmonary embolus. Limited views of the upper abdomen again demonstrate a cirrhotic liver, splenomegaly, and ascites. No suspicious lytic or blastic osseous lesions. No pneumothorax. Small amount of mucoid material within the distal trachea. Mild diffuse interlobular septal thickening with patchy consolidative airspace opacities seen throughout the lungs. There is also dense consolidation seen within the majority of the bilateral lower lobes. IMPRESSION: 1. No evidence for pulmonary embolus with limitations as described above. 2. Multifocal bilateral airspace opacities with dense consolidation in the bilateral lower lobes. This favors a pneumonia and could be due to viral process. There is also cardiomegaly, trace bilateral pleural effusions, and interlobular septal thickening. Therefore, superimposed pulmonary edema could also have a similar appearance. 3. Redemonstration of the cirrhotic liver, splenomegaly, and ascites. ACT 112: Negative or not required by law. Electronically signed by: Rah Lutz M.D. 08/11/2020 5:18 PM Chest X-Ray 08/11/20 18:44 XR chest 1V portable HISTORY: intubation COMPARISON: Chest 08/11/2020. FINDINGS: Endotracheal tube terminates 3.5 cm and the markel. The nasogastric tube terminates below the diaphragm. The tip is not included on this study. Progressive bilateral perihilar airspace opacities. Cardiomegaly and the bilateral pleural effusions persist. No pneumothorax. IMPRESSION: 1. Satisfactory support line placement. 2. Progressive bilateral airspace opacities. 3. Cardiomegaly and bilateral pleural effusions persist. ACT 112: Negative or not required by law. Electronically signed by: Rah Lutz M.D. 08/11/2020 7:41 PM Discharge Plan Visit Data Chief Complaint: Shortness of Breath/Dyspnea ED Provider: González Tavares Discharge Problem: Acute on chronic respiratory failure with hypoxia and hypercapnia, Encephalopathy acute, Cough with hemoptysis Patient Disposition: Admitted As Inpatient Discharge Instructions Interventions: ED Discharge Assessment Last Done: 08/11/20 20:15
[2020-08-11 22:24] LABS: Appearance Urine Clear (Clear); Bacteria Urine Automated 4+ (Negative); Bilirubin Urine Negative (Negative); Blood Urine Trace (Negative); Color Urine Yellow; Epithelial Cell Urine Auto >30 /lpf (0-5); Glucose Urine UA 2+ (Negative); Ketones Urine Negative (Negative); Leukocyte Esterase Urine Negative (Negative); Nitrite Urine Positive (Negative); Protein Urine 1+ (Negative); RBC Urine Automated 0-4 /hpf (0-4); Specific Gravity Urine > 1.045 (1.000-1.030); Urobilinogen Urine Negative (Negative); pH Urine 5.5 (4.5-7.5)
[2020-08-12] MEDS: fentaNYL citrate 100 MCG/2 ML VIAL IV PRN ×4 (02:40→21:47)
[2020-08-12] MEDS: propofoL 1,000 MG/100 ML VIAL IV SCH ×6 (02:41→22:41)
[2020-08-12] MEDS ORDERED: MEROPENEM CONSULT ACITVE PRN (03:06)
[2020-08-12] MEDS: ACETAMINOPHEN 1,000 MG/100 ML VIAL IV PRN (03:52)
[2020-08-12] MEDS ORDERED: PHARMACY GLYCEMIC MGMT CONSULT STA (04:12)
[2020-08-12] MEDS: MEROPENEM 500 MG in SYRINGE 0 ML IV SCH ×2 (04:17→10:35)
[2020-08-12 05:22] LABS: iSTAT Allen Test Pass; iSTAT Art Bld Gas pCO2 Correct 45 mmHg (35-46); iSTAT Art Bld Gas pH Corrected 7.565 (7.35-7.45); iSTAT Arterial Blood Gas HCO3 41 meg/L (19-24); iSTAT Arterial Blood Gas pCO2 43 mmHg (35-46); iSTAT Arterial Blood Gas pH 7.58 (7.35-7.45); iSTAT Arterial Blood Gas pO2 46 mmHg (80-95); iSTAT Arterial Blood Gas pO2 C 50; iSTAT Carbon Dioxide > 40 mmol/L (24-31); iSTAT FiO2 70 %; iSTAT Hematocrit 34 % (37-47); iSTAT Hemoglobin 11.6 g/dl (12.0-16.0); iSTAT Potassium 3.4 mmol/L (3.3-5.0); iSTAT Site R Radial; iSTAT Sodium 141 mmol/L (135-144)
[2020-08-12 05:36] LABS: Hematocrit (blood only) 38.4 % (37-47); Mean Corpuscular Hemoglobin 27.6 pg (25-34); Mean Corpuscular Hgb Conc 28.6 g/dL (32-36); Mean Corpuscular Volume 96.2 fL (80-100); Mean Platelet Volume 11.3 fL (7.4-10.4); Nucleated RBC # (auto) 0.02 K/uL (0-0); Nucleated RBC % (auto) 0.2 %; Platelet Count 85 K/uL (130-400); RDW Coefficient of Variation 17.8 % (11.5-14.5); RDW Standard Deviation 62.8 fL (36.4-46.3); Red Blood Count 3.99 M/uL (4.2-5.4); White Blood Count 9.43 K/uL (4.8-10.8)
[2020-08-12 05:53] LABS: Basophils # (auto) 0.01 K/uL (0-0.2); Basophils % (auto) 0.1 %; Eosinophils % (auto) 2.1 %; Hypochromasia Present; Immature Granulocytes # (auto) 0.12 K/uL (0.00-0.02); Immature Granulocytes % (auto) 1.3 %; Lymphocytes # (auto) 0.89 K/uL (1.2-3.4); Lymphocytes % (auto) 9.4 %; Monocytes # (auto) 0.72 K/uL (0.11-0.59); Monocytes % (auto) 7.6 %; Neutrophils # (auto) 7.49 K/uL (1.4-6.5); Neutrophils % (auto) 79.5 %; Polychromasia 1+
[2020-08-12 06:04] LABS: BUN Creatinine Ratio 26.2 (10-20); Bilirubin,Total 0.6 mg/dl (0.2-1); Calcium 8.5 mg/dl (8.5-10.1); Creatinine Clr Calc Pharmacy 102.6 ml/min; Est GFR (Non-African American) 72.5 ml/min; Magnesium 1.9 mg/dl (1.8-2.4); Phosphorus 1.8 mg/dl (2.5-4.9); Potassium 3.6 mmol/L (3.5-5.1)
[2020-08-12 06:06] LABS: Thyroid Stimulating Hormone 2.73 uIu/ml (0.300-4.500)
[2020-08-12] MEDS: LEVOTHYROXINE SODIUM 100 MCG TABLET PO SCH (06:07)
[2020-08-12] MEDS ORDERED: ALBUTEROL 0.083% NEBU SOLN 3 ML VIAL NEB PRN (06:14)
--- NOTE | 2020-08-12 07:05 | Hospitalist Progress Note ---
Date of Service August 12, 2020 Assessment & Plan (1) Acute on chronic respiratory failure with hypoxia and hypercapnia: (2) Morbid obesity: (3) Respiratory acidosis: (4) Metabolic encephalopathy: Pt is a 69 y/o F w/ hx of DM type 2 on insulin, morbid obesity (BMI 54), obesity hypoventilation syndrome, COPD, JOSE, hypothyroidism, chronic diastolic CHF, prior CVA, HTN, HLD, cirrhosis, splenomegaly, chronic pain, chronic hypoxic hypercapnic resp. failure (4L NC at baseline during the day, bipap at night) who presents d/t hypoxia for several days. In ED worsening mental status (likely d/t hypercarbia, hypoxia) and required intubation. +hemoptysis Pneumonia VBG ph 7.1, pCO2 134 CT PE - negative for PE, positive b/l pleural effusions, poss. PNA COVID negative WBC wnl Procalcitonin -negative on admission, now elevated at 1.59 Sputum cultx - pending Blood cultx - pending TSH- 2.7 wnl Prior to admission, no fevers reported. Patient is febrile today (08/12) Received meropenem in ED (pt has multiple Abx allergies) Received 40 IV lasix Intubated in ED Further management by ICU Given not elevated procalcitonin, fever, findings on imaging likely consistent with pneumonia Meropenem continued, possibly change antibiotics/further discussion with pharmacy may be needed given multiple allergies Hx of chronic distolic CHF - on PO lasix at home - pro BNP wnl - give 40 IV lasix on admission (discussed pulmonary edema, poss. hemoptysis w/ diplomatic interpreter) - may need further diuresis w/ acetazolamide - cont. to closely monitor I/Os, electrolytes - may need to repeat echo - troponin negative Further management per ICU Hypothyroidism - check TSH, T4 - cont. levothyroxine DM type 2 - on insulin - management per ICU/ glycemic pharmacy Abnormal UA - UA positive for bacteria, nitrite - unclear if any urinary symptoms - urine cultx - pending - received 1 dose of meropenem on admission, may need to continue - further management per ICU Thrombocytopenia - chronic - poss. hemoptysis, no other signs of bleed noted - cont to closely monitor plt count DVT ppx - SCDs, per ICU, may hold off from chem. ppx given poss. hemoptysis, and thrombocytopenia CODE: FULL (confirmed w/ at the bedside) Admission and Anticipated Discharge Date Admission Date: August 11, 2020 Subjective Patient seen in follow-up of acute hypoxic hypercapnic respiratory failure Currently in ICU, intubated, on mechanical ventilation She is awake, more alert than yesterday, denies any pain or discomfort, follows simple commands Review of Systems Review of Systems: Unobtainable due to endotracheal tube Denies any pain or discomfort however unable to review full ROS due to endotracheal tube Physical Exam Physical Exam: Constitutional: + morbidly obese F, + mechanically ventilated Neck: trachea midline, no thyromegaly Respiratory: no respiratory distress Auscultation: + crackles and + rales; no wheezes Cardiovascular: RRR, no murmur, no edema Gastrointestinal (Abdomen): normal bowel sounds, soft, nontender, obese Musculoskeletal: Extremities: extremities normal to inspection Skin: no rashes, warm and dry Neurologic: awake and alert, follows simple commands Results & Data Results & Data ([facility]) Vital Signs (Past 12 Hours) Vital Signs Temp Pulse Pulse Resp BP BP Pulse Ox 08/12/20 06:00 38.2 C H 80 16 119/57 L 93 08/12/20 05:30 38.2 C H 79 16 114/52 L 92 08/12/20 05:00 38.2 C H 83 20 136/64 93 08/12/20 04:52 77 20 90 08/12/20 04:30 38.2 C H 79 20 108/59 L 91 08/12/20 04:00 38.2 C H 78 20 108/59 L 93 08/12/20 03:30 38.2 C H 78 20 121/63 94 08/12/20 03:00 38.2 C H 78 20 108/60 92 08/12/20 02:30 38.1 C H 77 20 95/55 L 92 08/12/20 02:00 38.1 C H 71 20 105/62 91 08/12/20 01:30 38.0 C H 77 20 101/47 L 90 08/12/20 01:00 37.9 C H 79 20 96/51 L 94 08/12/20 00:30 37.7 C H 78 20 96/51 L 90 08/12/20 00:00 37.6 C H 77 26 H 112/56 L 90 08/11/20 23:30 37.5 C 75 20 120/58 L 93 08/11/20 23:00 37.3 C 73 20 90/54 L 92 08/11/20 22:40 72 20 93 08/11/20 22:37 37.3 C 72 20 91/55 L 93 08/11/20 22:30 37.2 C 71 20 82/54 L 94 08/11/20 22:00 37.1 C 72 20 89/60 L 94 08/11/20 21:30 36.9 C 75 20 114/56 L 92 08/11/20 21:00 77 20 101/52 L 93 08/11/20 20:59 80 08/11/20 20:47 85 20 92 08/11/20 20:34 90 20 119/77 08/11/20 20:15 36.6 C 86 20 119/77 97 08/11/20 19:55 108/53 L 98 08/11/20 19:50 75 100/52 L 100 08/11/20 19:46 81 113/56 L 98 08/11/20 19:45 82 123/58 L 99 08/11/20 19:40 78 127/64 96 08/11/20 19:35 84 118/59 L 100 08/11/20 19:30 84 114/53 L 97 08/11/20 19:27 89 97/64 L 97 08/11/20 19:20 82 100/49 L 96 08/11/20 19:18 84 80/47 L 98 08/11/20 19:17 89 68/50 L 100 08/11/20 19:10 98 H 106/56 L 97 08/11/20 19:08 100 H 127/62 96 08/11/20 19:04 88 124/53 L 94 Laboratory Results 08/12/20 08/12/20 08/12/20 Range/Units 05:20 05:20 05:20 WBC 9.43 (4.8-10.8) K/uL RBC 3.99 L (4.2-5.4) M/uL Hgb 11.0 L (12.0-16.0) g/dL POC Hgb (12.0-16.0) g/dl Hct 38.4 (37-47) % POC Hct (37-47) % MCV 96.2 (80-100) fL MCH 27.6 (25-34) pg MCHC 28.6 L (32-36) g/dL RDW Std Deviation 62.8 H (36.4-46.3) fL RDW Coeff of Duy 17.8 H (11.5-14.5) % Plt Count 85 L (130-400) K/uL MPV 11.3 H (7.4-10.4) fL Immature Gran % (Auto) 1.3 % Neut % (Auto) 79.5 % Lymph % (Auto) 9.4 % Armstrong % (Auto) 7.6 % Eos % (Auto) 2.1 % Baso % (Auto) 0.1 % Neut # (Auto) 7.49 H (1.4-6.5) K/uL Lymph # (Auto) 0.89 L (1.2-3.4) K/uL Armstrong # (Auto) 0.72 H (0.11-0.59) K/uL Eos # (Auto) 0.20 (0-0.5) K/uL Baso # (Auto) 0.01 (0-0.2) K/uL Immature Gran # (Auto) 0.12 H (0.00-0.02) K/uL Absolute Nucleated RBC 0.02 H (0-0) K/uL Nucleated RBC % (auto) 0.2 % Platelet Estimate (Normal) Polychromasia 1+ Hypochromasia Present Basophilic Stippling PT (9.0-12.0) Seconds INR (0.9-1.1) D-Dimer (0-500) ug/L FEU Sample Site POC pH (7.35-7.45) POC pCO2 (35-46) mmHg POC pO2 (80-95) mmHg POC HCO3 (19-24) cachorro/L POC Total CO2 (24-31) mmol/L POC Base Excess (-9-1.8) cachorro/L ABG pH (Temp Correct) (7.35-7.45) ABG pCO2 (Temp Corrct (35-46) mmHg POC ABG pO2 at Pt Temp POC ABG O2 Sat (90-95) % Bill Test VBG pH VBG pCO2 VBG pO2 VBG HCO3 VBG O2 Saturation VBG Base Excess Barometric Pressure O2 Delivery Device POC O2 Rate Minute Ventilation POC FiO2 % Tidal Volume PEEP POC Sodium (135-144) mmol/L Sodium 142 (136-145) mmol/L POC Potassium (3.3-5.0) mmol/L Potassium 3.6 (3.5-5.1) mmol/L Chloride 101 (98-107) mmol/L Carbon Dioxide 39 H (21-32) mmol/L Anion Gap 2.0 L (3-11) BUN 22 H (7-18) mg/dl Creatinine 0.82 (0.6-1.2) mg/dl Est Cr Clr Drug Dosing 102.6 ml/min Est GFR ( Amer) 84.0 ml/min Est GFR (Non-Af Amer) 72.5 ml/min BUN/Creatinine Ratio 26.2 H (10-20) Glucose 136 H (70-99) mg/dl POC Glucose (70-99) mg/dl Lactate (0.4-2.0) mmol/L Calcium 8.5 (8.5-10.1) mg/dl Phosphorus 1.8 L (2.5-4.9) mg/dl Magnesium 1.9 (1.8-2.4) mg/dl Total Bilirubin 0.6 (0.2-1) mg/dl AST 8 L (15-37) U/L ALT 11 L (12-78) U/L Alkaline Phosphatase 67 (45-117) U/L Troponin I (0-0.045) ng/ml NT-Pro-B Natriuret Pep (0-900) pg/ml Total Protein 6.0 L (6.4-8.2) gm/dl Albumin 3.0 L (3.4-5.0) gm/dl Globulin 3.0 (2.5-4.0) gm/dl Albumin/Globulin Ratio 1.0 (0.9-2) Procalcitonin 1.59 H (0-0.5) ng/ml TSH 2.730 (0.300-4.500) uIu/ml Urine Color Urine Appearance (Clear) Urine pH (4.5-7.5) Ur Specific [place] (1.000-1.030) Urine Protein (Negative) Urine Glucose (UA) (Negative) Urine Ketones (Negative) Urine Blood (Negative) Urine Nitrite (Negative) Urine Bilirubin (Negative) Urine Urobilinogen (Negative) Ur Leukocyte Esterase (Negative) Urine WBC (Auto) (0-5) /hpf Urine RBC (Auto) (0-4) /hpf U Hyaline Cast (Auto) (0-5) /lpf U Epithel Cells (Auto) (0-5) /lpf Urine Bacteria (Auto) (Negative) Nasal Screen MRSA (PCR) (Negative) COVID-19 Eval Order SARS-CoV-2 (PCR) (Negative) 08/12/20 08/11/20 08/11/20 Range/Units 05:03 21:57 21:45 WBC (4.8-10.8) K/uL RBC (4.2-5.4) M/uL Hgb (12.0-16.0) g/dL POC Hgb 11.6 L (12.0-16.0) g/dl Hct (37-47) % POC Hct 34 L (37-47) % MCV (80-100) fL MCH (25-34) pg MCHC (32-36) g/dL RDW Std Deviation (36.4-46.3) fL RDW Coeff of Duy (11.5-14.5) % Plt Count (130-400) K/uL MPV (7.4-10.4) fL Immature Gran % (Auto) % Neut % (Auto) % Lymph % (Auto) % Armstrong % (Auto) % Eos % (Auto) % Baso % (Auto) % Neut # (Auto) (1.4-6.5) K/uL Lymph # (Auto) (1.2-3.4) K/uL Armstrong # (Auto) (0.11-0.59) K/uL Eos # (Auto) (0-0.5) K/uL Baso # (Auto) (0-0.2) K/uL Immature Gran # (Auto) (0.00-0.02) K/uL Absolute Nucleated RBC (0-0) K/uL Nucleated RBC % (auto) % Platelet Estimate (Normal) Polychromasia Hypochromasia Basophilic Stippling PT (9.0-12.0) Seconds INR (0.9-1.1) D-Dimer (0-500) ug/L FEU Sample Site R Radial POC pH 7.58 H* (7.35-7.45) POC pCO2 43 (35-46) mmHg POC pO2 46 L (80-95) mmHg POC HCO3 41 H (19-24) cachorro/L POC Total CO2 > 40 H* (24-31) mmol/L POC Base Excess 19.0 H (-9-1.8) cachorro/L ABG pH (Temp Correct) 7.565 H* (7.35-7.45) ABG pCO2 (Temp Corrct 45 (35-46) mmHg POC ABG pO2 at Pt Temp 50 POC ABG O2 Sat 88.0 L (90-95) % Bill Test Pass VBG pH VBG pCO2 VBG pO2 VBG HCO3 VBG O2 Saturation VBG Base Excess Barometric Pressure O2 Delivery Device Ventilator POC O2 Rate 20 Minute Ventilation 10.0 POC FiO2 70 % Tidal Volume 500 PEEP 12 POC Sodium 141 (135-144) mmol/L Sodium (136-145) mmol/L POC Potassium 3.4 (3.3-5.0) mmol/L Potassium (3.5-5.1) mmol/L Chloride (98-107) mmol/L Carbon Dioxide (21-32) mmol/L Anion Gap (3-11) BUN (7-18) mg/dl Creatinine (0.6-1.2) mg/dl Est Cr Clr Drug Dosing ml/min Est GFR ( Amer) ml/min Est GFR (Non-Af Amer) ml/min BUN/Creatinine Ratio (10-20) Glucose (70-99) mg/dl POC Glucose 188 H (70-99) mg/dl Lactate (0.4-2.0) mmol/L Calcium (8.5-10.1) mg/dl Phosphorus (2.5-4.9) mg/dl Magnesium (1.8-2.4) mg/dl Total Bilirubin (0.2-1) mg/dl AST (15-37) U/L ALT (12-78) U/L Alkaline Phosphatase (45-117) U/L Troponin I (0-0.045) ng/ml NT-Pro-B Natriuret Pep (0-900) pg/ml Total Protein (6.4-8.2) gm/dl Albumin (3.4-5.0) gm/dl Globulin (2.5-4.0) gm/dl Albumin/Globulin Ratio (0.9-2) Procalcitonin (0-0.5) ng/ml TSH (0.300-4.500) uIu/ml Urine Color Yellow Urine Appearance Clear (Clear) Urine pH 5.5 (4.5-7.5) Ur Specific [place] > 1.045 H (1.000-1.030) Urine Protein 1+ H (Negative) Urine Glucose (UA) 2+ H (Negative) Urine Ketones Negative (Negative) Urine Blood Trace H (Negative) Urine Nitrite Positive A (Negative) Urine Bilirubin Negative (Negative) Urine Urobilinogen Negative (Negative) Ur Leukocyte Esterase Negative (Negative) Urine WBC (Auto) 1-5 (0-5) /hpf Urine RBC (Auto) 0-4 (0-4) /hpf U Hyaline Cast (Auto) 1-5 (0-5) /lpf U Epithel Cells (Auto) >30 H (0-5) /lpf Urine Bacteria (Auto) 4+ H (Negative) Nasal Screen MRSA (PCR) (Negative) COVID-19 Eval Order SARS-CoV-2 (PCR) (Negative) 08/11/20 08/11/20 08/11/20 Range/Units 21:26 21:17 21:00 WBC (4.8-10.8) K/uL RBC (4.2-5.4) M/uL Hgb (12.0-16.0) g/dL POC Hgb 12.6 (12.0-16.0) g/dl Hct (37-47) % POC Hct 37 (37-47) % MCV (80-100) fL MCH (25-34) pg MCHC (32-36) g/dL RDW Std Deviation (36.4-46.3) fL RDW Coeff of Duy (11.5-14.5) % Plt Count (130-400) K/uL MPV (7.4-10.4) fL Immature Gran % (Auto) % Neut % (Auto) % Lymph % (Auto) % Armstrong % (Auto) % Eos % (Auto) % Baso % (Auto) % Neut # (Auto) (1.4-6.5) K/uL Lymph # (Auto) (1.2-3.4) K/uL Armstrong # (Auto) (0.11-0.59) K/uL Eos # (Auto) (0-0.5) K/uL Baso # (Auto) (0-0.2) K/uL Immature Gran # (Auto) (0.00-0.02) K/uL Absolute Nucleated RBC (0-0) K/uL Nucleated RBC % (auto) % Platelet Estimate (Normal) Polychromasia Hypochromasia Basophilic Stippling PT (9.0-12.0) Seconds INR (0.9-1.1) D-Dimer (0-500) ug/L FEU Sample Site R Radial R Radial POC pH 7.43 7.44 (7.35-7.45) POC pCO2 62 H 59 H (35-46) mmHg POC pO2 50 L 45 L (80-95) mmHg POC HCO3 41 H 40 H (19-24) cachorro/L POC Total CO2 > 40 H* > 40 H* (24-31) mmol/L POC Base Excess 16.0 H 16.0 H (-9-1.8) cachorro/L ABG pH (Temp Correct) 7.430 (7.35-7.45) ABG pCO2 (Temp Corrct 61 H (35-46) mmHg POC ABG pO2 at Pt Temp 49 POC ABG O2 Sat 84.0 L 81.0 L (90-95) % Bill Test Pass Pass VBG pH VBG pCO2 VBG pO2 VBG HCO3 VBG O2 Saturation VBG Base Excess Barometric Pressure O2 Delivery Device Ventilator Ventilator POC O2 Rate 20 20 Minute Ventilation 10.0 10.0 POC FiO2 60 60 % Tidal Volume 500 500 PEEP 10 10 POC Sodium 143 (135-144) mmol/L Sodium (136-145) mmol/L POC Potassium 3.6 (3.3-5.0) mmol/L Potassium (3.5-5.1) mmol/L Chloride (98-107) mmol/L Carbon Dioxide (21-32) mmol/L Anion Gap (3-11) BUN (7-18) mg/dl Creatinine (0.6-1.2) mg/dl Est Cr Clr Drug Dosing ml/min Est GFR ( Amer) ml/min Est GFR (Non-Af Amer) ml/min BUN/Creatinine Ratio (10-20) Glucose (70-99) mg/dl POC Glucose (70-99) mg/dl Lactate (0.4-2.0) mmol/L Calcium (8.5-10.1) mg/dl Phosphorus (2.5-4.9) mg/dl Magnesium (1.8-2.4) mg/dl Total Bilirubin (0.2-1) mg/dl AST (15-37) U/L ALT (12-78) U/L Alkaline Phosphatase (45-117) U/L Troponin I (0-0.045) ng/ml NT-Pro-B Natriuret Pep (0-900) pg/ml Total Protein (6.4-8.2) gm/dl Albumin (3.4-5.0) gm/dl Globulin (2.5-4.0) gm/dl Albumin/Globulin Ratio (0.9-2) Procalcitonin (0-0.5) ng/ml TSH (0.300-4.500) uIu/ml Urine Color Urine Appearance (Clear) Urine pH (4.5-7.5) Ur Specific [place] (1.000-1.030) Urine Protein (Negative) Urine Glucose (UA) (Negative) Urine Ketones (Negative) Urine Blood (Negative) Urine Nitrite (Negative) Urine Bilirubin (Negative) Urine Urobilinogen (Negative) Ur Leukocyte Esterase (Negative) Urine WBC (Auto) (0-5) /hpf Urine RBC (Auto) (0-4) /hpf U Hyaline Cast (Auto) (0-5) /lpf U Epithel Cells (Auto) (0-5) /lpf Urine Bacteria (Auto) (Negative) Nasal Screen MRSA (PCR) Negative (Negative) COVID-19 Eval Order SARS-CoV-2 (PCR) (Negative) 08/11/20 08/11/20 08/11/20 Range/Units 17:56 16:43 16:09 WBC (4.8-10.8) K/uL RBC (4.2-5.4) M/uL Hgb (12.0-16.0) g/dL POC Hgb (12.0-16.0) g/dl Hct (37-47) % POC Hct (37-47) % MCV (80-100) fL MCH (25-34) pg MCHC (32-36) g/dL RDW Std Deviation (36.4-46.3) fL RDW Coeff of Duy (11.5-14.5) % Plt Count (130-400) K/uL MPV (7.4-10.4) fL Immature Gran % (Auto) % Neut % (Auto) % Lymph % (Auto) % Armstrong % (Auto) % Eos % (Auto) % Baso % (Auto) % Neut # (Auto) (1.4-6.5) K/uL Lymph # (Auto) (1.2-3.4) K/uL Armstrong # (Auto) (0.11-0.59) K/uL Eos # (Auto) (0-0.5) K/uL Baso # (Auto) (0-0.2) K/uL Immature Gran # (Auto) (0.00-0.02) K/uL Absolute Nucleated RBC (0-0) K/uL Nucleated RBC % (auto) % Platelet Estimate (Normal) Polychromasia Hypochromasia Basophilic Stippling PT (9.0-12.0) Seconds INR (0.9-1.1) D-Dimer (0-500) ug/L FEU Sample Site POC pH (7.35-7.45) POC pCO2 (35-46) mmHg POC pO2 (80-95) mmHg POC HCO3 (19-24) cachorro/L POC Total CO2 (24-31) mmol/L POC Base Excess (-9-1.8) cachorro/L ABG pH (Temp Correct) (7.35-7.45) ABG pCO2 (Temp Corrct (35-46) mmHg POC ABG pO2 at Pt Temp POC ABG O2 Sat (90-95) % Bill Test VBG pH 7.14 L VBG pCO2 134 H VBG pO2 65 VBG HCO3 45 VBG O2 Saturation 91.0 VBG Base Excess 11.3 Barometric Pressure 737.0 O2 Delivery Device POC O2 Rate Minute Ventilation POC FiO2 % Tidal Volume PEEP POC Sodium (135-144) mmol/L Sodium (136-145) mmol/L POC Potassium (3.3-5.0) mmol/L Potassium (3.5-5.1) mmol/L Chloride (98-107) mmol/L Carbon Dioxide (21-32) mmol/L Anion Gap (3-11) BUN (7-18) mg/dl Creatinine (0.6-1.2) mg/dl Est Cr Clr Drug Dosing ml/min Est GFR ( Amer) ml/min Est GFR (Non-Af Amer) ml/min BUN/Creatinine Ratio (10-20) Glucose (70-99) mg/dl POC Glucose (70-99) mg/dl Lactate 0.9 (0.4-2.0) mmol/L Calcium (8.5-10.1) mg/dl Phosphorus (2.5-4.9) mg/dl Magnesium (1.8-2.4) mg/dl Total Bilirubin (0.2-1) mg/dl AST (15-37) U/L ALT (12-78) U/L Alkaline Phosphatase (45-117) U/L Troponin I (0-0.045) ng/ml NT-Pro-B Natriuret Pep (0-900) pg/ml Total Protein (6.4-8.2) gm/dl Albumin (3.4-5.0) gm/dl Globulin (2.5-4.0) gm/dl Albumin/Globulin Ratio (0.9-2) Procalcitonin < 0.05 (0-0.5) ng/ml TSH (0.300-4.500) uIu/ml Urine Color Urine Appearance (Clear) Urine pH (4.5-7.5) Ur Specific [place] (1.000-1.030) Urine Protein (Negative) Urine Glucose (UA) (Negative) Urine Ketones (Negative) Urine Blood (Negative) Urine Nitrite (Negative) Urine Bilirubin (Negative) Urine Urobilinogen (Negative) Ur Leukocyte Esterase (Negative) Urine WBC (Auto) (0-5) /hpf Urine RBC (Auto) (0-4) /hpf U Hyaline Cast (Auto) (0-5) /lpf U Epithel Cells (Auto) (0-5) /lpf Urine Bacteria (Auto) (Negative) Nasal Screen MRSA (PCR) (Negative) COVID-19 Eval Order SARS-CoV-2 (PCR) (Negative) 08/11/20 08/11/20 08/11/20 Range/Units 16:09 16:01 16:01 WBC (4.8-10.8) K/uL RBC (4.2-5.4) M/uL Hgb (12.0-16.0) g/dL POC Hgb (12.0-16.0) g/dl Hct (37-47) % POC Hct (37-47) % MCV (80-100) fL MCH (25-34) pg MCHC (32-36) g/dL RDW Std Deviation (36.4-46.3) fL RDW Coeff of Duy (11.5-14.5) % Plt Count (130-400) K/uL MPV (7.4-10.4) fL Immature Gran % (Auto) % Neut % (Auto) % Lymph % (Auto) % Armstrong % (Auto) % Eos % (Auto) % Baso % (Auto) % Neut # (Auto) (1.4-6.5) K/uL Lymph # (Auto) (1.2-3.4) K/uL Armstrong # (Auto) (0.11-0.59) K/uL Eos # (Auto) (0-0.5) K/uL Baso # (Auto) (0-0.2) K/uL Immature Gran # (Auto) (0.00-0.02) K/uL Absolute Nucleated RBC (0-0) K/uL Nucleated RBC % (auto) % Platelet Estimate (Normal) Polychromasia Hypochromasia Basophilic Stippling PT (9.0-12.0) Seconds INR (0.9-1.1) D-Dimer (0-500) ug/L FEU Sample Site POC pH (7.35-7.45) POC pCO2 (35-46) mmHg POC pO2 (80-95) mmHg POC HCO3 (19-24) cachorro/L POC Total CO2 (24-31) mmol/L POC Base Excess (-9-1.8) cachorro/L ABG pH (Temp Correct) (7.35-7.45) ABG pCO2 (Temp Corrct (35-46) mmHg POC ABG pO2 at Pt Temp POC ABG O2 Sat (90-95) % Bill Test VBG pH Cancelled VBG pCO2 Cancelled VBG pO2 Cancelled VBG HCO3 Cancelled VBG O2 Saturation Cancelled VBG Base Excess Cancelled Barometric Pressure Cancelled O2 Delivery Device POC O2 Rate Minute Ventilation POC FiO2 % Tidal Volume PEEP POC Sodium (135-144) mmol/L Sodium (136-145) mmol/L POC Potassium (3.3-5.0) mmol/L Potassium (3.5-5.1) mmol/L Chloride (98-107) mmol/L Carbon Dioxide (21-32) mmol/L Anion Gap (3-11) BUN (7-18) mg/dl Creatinine (0.6-1.2) mg/dl Est Cr Clr Drug Dosing ml/min Est GFR ( Amer) ml/min Est GFR (Non-Af Amer) ml/min BUN/Creatinine Ratio (10-20) Glucose (70-99) mg/dl POC Glucose (70-99) mg/dl Lactate (0.4-2.0) mmol/L Calcium (8.5-10.1) mg/dl Phosphorus (2.5-4.9) mg/dl Magnesium (1.8-2.4) mg/dl Total Bilirubin (0.2-1) mg/dl AST (15-37) U/L ALT (12-78) U/L Alkaline Phosphatase (45-117) U/L Troponin I (0-0.045) ng/ml NT-Pro-B Natriuret Pep (0-900) pg/ml Total Protein (6.4-8.2) gm/dl Albumin (3.4-5.0) gm/dl Globulin (2.5-4.0) gm/dl Albumin/Globulin Ratio (0.9-2) Procalcitonin (0-0.5) ng/ml TSH (0.300-4.500) uIu/ml Urine Color Urine Appearance (Clear) Urine pH (4.5-7.5) Ur Specific [place] (1.000-1.030) Urine Protein (Negative) Urine Glucose (UA) (Negative) Urine Ketones (Negative) Urine Blood (Negative) Urine Nitrite (Negative) Urine Bilirubin (Negative) Urine Urobilinogen (Negative) Ur Leukocyte Esterase (Negative) Urine WBC (Auto) (0-5) /hpf Urine RBC (Auto) (0-4) /hpf U Hyaline Cast (Auto) (0-5) /lpf U Epithel Cells (Auto) (0-5) /lpf Urine Bacteria (Auto) (Negative) Nasal Screen MRSA (PCR) (Negative) COVID-19 Eval Order Covid19 at [facility] SARS-CoV-2 (PCR) NEGATIVE (Negative) 08/11/20 08/11/20 08/11/20 Range/Units 15:00 15:00 15:00 WBC 7.76 (4.8-10.8) K/uL RBC 4.03 L (4.2-5.4) M/uL Hgb 11.2 L (12.0-16.0) g/dL POC Hgb (12.0-16.0) g/dl Hct 40.7 (37-47) % POC Hct (37-47) % MCV 101.0 H (80-100) fL MCH 27.8 (25-34) pg MCHC 27.5 L (32-36) g/dL RDW Std Deviation 66.4 H (36.4-46.3) fL RDW Coeff of Duy 17.9 H (11.5-14.5) % Plt Count 93 L (130-400) K/uL MPV 11.5 H (7.4-10.4) fL Immature Gran % (Auto) 1.2 % Neut % (Auto) 79.7 % Lymph % (Auto) 9.9 % Armstrong % (Auto) 7.9 % Eos % (Auto) 1.0 % Baso % (Auto) 0.3 % Neut # (Auto) 6.19 (1.4-6.5) K/uL Lymph # (Auto) 0.77 L (1.2-3.4) K/uL Armstrong # (Auto) 0.61 H (0.11-0.59) K/uL Eos # (Auto) 0.08 (0-0.5) K/uL Baso # (Auto) 0.02 (0-0.2) K/uL Immature Gran # (Auto) 0.09 H (0.00-0.02) K/uL Absolute Nucleated RBC (0-0) K/uL Nucleated RBC % (auto) % Platelet Estimate Decreased L (Normal) Polychromasia 1+ Hypochromasia Present Basophilic Stippling 1+ PT 10.5 (9.0-12.0) Seconds INR 1.0 (0.9-1.1) D-Dimer 790 H* (0-500) ug/L FEU Sample Site POC pH (7.35-7.45) POC pCO2 (35-46) mmHg POC pO2 (80-95) mmHg POC HCO3 (19-24) [place]/L POC Total CO2 (24-31) mmol/L POC Base Excess (-9-1.8) [place]/L ABG pH (Temp Correct) (7.35-7.45) ABG pCO2 (Temp Corrct (35-46) mmHg POC ABG pO2 at Pt Temp POC ABG O2 Sat (90-95) % Bill Test VBG pH VBG pCO2 VBG pO2 VBG HCO3 VBG O2 Saturation VBG Base Excess Barometric Pressure O2 Delivery Device POC O2 Rate Minute Ventilation POC FiO2 % Tidal Volume PEEP POC Sodium (135-144) mmol/L Sodium 142 (136-145) mmol/L POC Potassium (3.3-5.0) mmol/L Potassium 3.7 (3.5-5.1) mmol/L Chloride 100 (98-107) mmol/L Carbon Dioxide 39 H (21-32) mmol/L Anion Gap 3.0 (3-11) BUN 17 (7-18) mg/dl Creatinine 0.73 (0.6-1.2) mg/dl Est Cr Clr Drug Dosing 116.6 ml/min Est GFR ( Amer) 96.7 ml/min Est GFR (Non-Af Amer) 83.4 ml/min BUN/Creatinine Ratio 23.3 H (10-20) Glucose 239 H (70-99) mg/dl POC Glucose (70-99) mg/dl Lactate (0.4-2.0) mmol/L Calcium 8.7 (8.5-10.1) mg/dl Phosphorus (2.5-4.9) mg/dl Magnesium 2.2 (1.8-2.4) mg/dl Total Bilirubin 0.4 (0.2-1) mg/dl AST 9 L (15-37) U/L ALT 12 (12-78) U/L Alkaline Phosphatase 75 (45-117) U/L Troponin I < 0.015 (0-0.045) ng/ml NT-Pro-B Natriuret Pep 562 (0-900) pg/ml Total Protein 6.8 (6.4-8.2) gm/dl Albumin 3.3 L (3.4-5.0) gm/dl Globulin 3.5 (2.5-4.0) gm/dl Albumin/Globulin Ratio 0.9 (0.9-2) Procalcitonin (0-0.5) ng/ml TSH (0.300-4.500) uIu/ml Urine Color Urine Appearance (Clear) Urine pH (4.5-7.5) Ur Specific [place] (1.000-1.030) Urine Protein (Negative) Urine Glucose (UA) (Negative) Urine Ketones (Negative) Urine Blood (Negative) Urine Nitrite (Negative) Urine Bilirubin (Negative) Urine Urobilinogen (Negative) Ur Leukocyte Esterase (Negative) Urine WBC (Auto) (0-5) /hpf Urine RBC (Auto) (0-4) /hpf U Hyaline Cast (Auto) (0-5) /lpf U Epithel Cells (Auto) (0-5) /lpf Urine Bacteria (Auto) (Negative) Nasal Screen MRSA (PCR) (Negative) COVID-19 Eval Order SARS-CoV-2 (PCR) (Negative) Medications Administered Current Inpatient Medications Albuterol (Albuterol 0.083% Nebu Soln 3 Ml Vial) 2.5 mg NEB Q6H PRN PRN Reason: Shortness Of Breath Or Wheezing Stop: 09/11/20 06:13 Fentanyl Citrate (Fentanyl Citrate 100 Mcg/2 Ml Vial) 25 mcg IV Q2H PRN PRN Reason: Moderate Pain (4,5,6) on NRS Stop: 08/25/20 21:09 Last Admin: 08/12/20 06:10 Dose: 25 mcg Documented by: Propofol (Diprivan) 1,000 mg in 100 mls @ 24.24 mls/hr IV .Q4H8M [facility]; Protocol Stop: 08/14/20 18:44 Last Admin: 08/12/20 06:07 Dose: 25 mcg/kg/min, 24.2 mls/hr Documented by: Meropenem 500 mg/ Syringe 10 mls @ 2 mls/min IV Q6H [facility]; Protocol Stop: 08/22/20 03:59 Last Admin: 08/12/20 04:17 Dose: 2 mls/min Documented by: Acetaminophen (Ofirmev) 1,000 mg in 100 mls @ 400 mls/hr IV Q8H PRN PRN Reason: Fever Stop: 08/15/20 03:05 Last Infusion: 08/12/20 04:17 Dose: Infused Documented by: Furosemide 40 mg/ Syringe 4 mls @ 4 mls/min IV DAILY [facility] Stop: 09/11/20 08:59 Methylprednisolone 20 mg/ (Syringe) 0.32 mls @ 1.5 mls/min IV BID [facility] Stop: 09/11/20 08:59 Levothyroxine Sodium (Levothyroxine Sodium 100 Mcg Tablet) 100 mcg PO DAILYBB [facility] Stop: 09/11/20 06:29 Last Admin: 08/12/20 06:07 Dose: 100 mcg Documented by: Miscellaneous ([facility] Protocol For Hyperglycemia) 1 ea N/A PRN PRN; Protocol PRN Reason: Hyperglycemia Protocol Stop: 08/13/20 20:58 Miscellaneous Information (Meropenem Consult Acitve) 1 ea N/A UD PRN PRN Reason: Consult Stop: 09/11/20 03:05 Propofol (Propofol Bolus From Bag) 20 mg IV Q5M PRN PRN Reason: Sedation Stop: 08/14/20 18:43
--- NOTE | 2020-08-12 08:08 | Critical Care Progress Note ---
Date of Service August 12, 2020 Assessment & Plan (1) Admitted to intensive care unit: Impression: 69-year-old female with morbid obesity and obesity hypoventilation syndrome admitted with acute on chronic hypercarbic respiratory failure and metabolic encephalopathy requiring intubation mechanical ventilation in the emergency room. 24-hour events: Patient presented to the emergency room. She had a CT which showed patchy infiltrates bilaterally. There was also significant dynamic airway collapse noted. She failed BiPAP in the emergency room and was subsequently intubated. She was treated with meropenem for presumed pneumonia. Recommendations: 1. Neurologic: The patient is currently awake on the ventilator and able to follow commands. She is appears comfortable. We will continue sedation for now until she is able to participate in a spontaneous breathing trial and consider l iberation from mechanical ventilator. Suspect her encephalopathy was related to elevated CO2 levels. 2. Pulmonary: Respiratory alkalosis today. It appears that her baseline CO2 is somewhere around 60. We will decrease her tidal volume down to about 6 cc/kg ideal body weight. Maintain current respiratory rate. We will increase PEEP to 15 given the significant dynamic airway collapse noted on the CT scan. Wean FiO2 as tolerated. She will likely need to be extubated to bilevel or ASV. No indication for steroids at this point time. She does appear to have pneumonia with an elevated procalcitonin. Sputum culture is currently pending. We will trend procalcitonin on antibiotics. Continue gentle diuresis. If she fails to improve, could consider bronchoscopy with BAL however given her elevated procalcitonin and clinical presentation we will see how she responds to antibiotics and positive pressure ventilation for now. I suspect that her hemoptysis has been related to traumatic intubation but cannot exclude pulmonary hemorrhage. We will follow closely. 3. Renal: Serum creatinine is stable. Electrolytes acceptable. Blood gas shows a metabolic alkalosis likely due to overcorrection of CO2. Will follow for now. Consider Diamox if it remains problematic. No evidence of an active urinary sediment so pulmonary renal syndrome seems less likely. 4. GI: We will discuss with dietary initiation of trophic tube feeds 5. Endocrine: Glycemic control per protocol. Continue Synthroid 6. ID: Day #2 meropenem. Multiple allergies reported in the chart. Await cultures. Continue antibiotics for now. 7. CV: No current issues. Continue to follow. Patient is critically ill at this point time with significant probability of clinical deterioration and potential . A total of 50 minutes critical care time was spent evaluation management stabilization of this patient including discussion with the hospitalist, discussion with the critical care NICK and with the bedside critical care nurse and respiratory therapy. She was discussed on multidisciplinary rounds as well. No family immediately available. We will try and update them today if possible (2) Encephalopathy acute: (3) Respiratory acidosis: (4) Acute on chronic respiratory failure with hypoxia and hypercapnia: (5) Pneumonia: (6) Morbid obesity: Admission and Anticipated Discharge Date Admission Date: August 11, 2020 Subjective intubated and sedated Review of Systems Review of Systems: Unobtainable due to endotracheal tube Physical Exam Constitutional: + morbidly obese and + mechanically ventilated Neck: trachea midline, no thyromegaly Respiratory: no respiratory distress Auscultation: + crackles and + rales; no wheezes Cardiovascular: RRR, no murmur, no edema Gastrointestinal (Abdomen): normal bowel sounds, soft, nontender, no hepatosplenomegaly Musculoskeletal: Extremities: extremities normal to inspection Skin: no rashes, warm and dry Neurologic: Nonfocal exam Lymphatic: no cervical lymphadenopathy Results & Data Results & Data ([facility]) Vital Signs (Past 12 Hours) Vital Signs Temp Pulse Pulse Resp BP BP Pulse Ox 08/12/20 07:26 82 16 98 08/12/20 06:00 38.2 C H 80 16 119/57 L 93 08/12/20 05:30 38.2 C H 79 16 114/52 L 92 08/12/20 05:00 38.2 C H 83 20 136/64 93 08/12/20 04:52 77 20 90 08/12/20 04:30 38.2 C H 79 20 108/59 L 91 08/12/20 04:00 38.2 C H 78 20 108/59 L 93 08/12/20 03:30 38.2 C H 78 20 121/63 94 08/12/20 03:00 38.2 C H 78 20 108/60 92 08/12/20 02:30 38.1 C H 77 20 95/55 L 92 08/12/20 02:00 38.1 C H 71 20 105/62 91 08/12/20 01:30 38.0 C H 77 20 101/47 L 90 08/12/20 01:00 37.9 C H 79 20 96/51 L 94 08/12/20 00:30 37.7 C H 78 20 96/51 L 90 08/12/20 00:00 37.6 C H 77 26 H 112/56 L 90 08/11/20 23:30 37.5 C 75 20 120/58 L 93 08/11/20 23:00 37.3 C 73 20 90/54 L 92 08/11/20 22:40 72 20 93 08/11/20 22:37 37.3 C 72 20 91/55 L 93 08/11/20 22:30 37.2 C 71 20 82/54 L 94 08/11/20 22:00 37.1 C 72 20 89/60 L 94 08/11/20 21:30 36.9 C 75 20 114/56 L 92 08/11/20 21:00 77 20 101/52 L 93 08/11/20 20:59 80 08/11/20 20:47 85 20 92 08/11/20 20:34 90 20 119/77 08/11/20 20:15 36.6 C 86 20 119/77 97 Critical Care Results & Data Vital Signs (Past 12 Hours) Vital Signs Temp Pulse Pulse Resp BP BP Pulse Ox 08/12/20 07:26 82 16 98 08/12/20 06:00 38.2 C H 80 16 119/57 L 93 08/12/20 05:30 38.2 C H 79 16 114/52 L 92 08/12/20 05:00 38.2 C H 83 20 136/64 93 08/12/20 04:52 77 20 90 08/12/20 04:30 38.2 C H 79 20 108/59 L 91 08/12/20 04:00 38.2 C H 78 20 108/59 L 93 08/12/20 03:30 38.2 C H 78 20 121/63 94 08/12/20 03:00 38.2 C H 78 20 108/60 92 08/12/20 02:30 38.1 C H 77 20 95/55 L 92 08/12/20 02:00 38.1 C H 71 20 105/62 91 08/12/20 01:30 38.0 C H 77 20 101/47 L 90 08/12/20 01:00 37.9 C H 79 20 96/51 L 94 08/12/20 00:30 37.7 C H 78 20 96/51 L 90 08/12/20 00:00 37.6 C H 77 26 H 112/56 L 90 08/11/20 23:30 37.5 C 75 20 120/58 L 93 08/11/20 23:00 37.3 C 73 20 90/54 L 92 08/11/20 22:40 72 20 93 08/11/20 22:37 37.3 C 72 20 91/55 L 93 08/11/20 22:30 37.2 C 71 20 82/54 L 94 08/11/20 22:00 37.1 C 72 20 89/60 L 94 08/11/20 21:30 36.9 C 75 20 114/56 L 92 08/11/20 21:00 77 20 101/52 L 93 08/11/20 20:59 80 08/11/20 20:47 85 20 92 08/11/20 20:34 90 20 119/77 08/11/20 20:15 36.6 C 86 20 119/77 97 Lab & Micro Results (Past 24 Hours) RBC 3.99 M/uL (4.2-5.4) L 08/12/20 WBC 9.43 K/uL (4.8-10.8) 08/12/20 Hgb 11.0 g/dL (12.0-16.0) L 08/12/20 Hct 38.4 % (37-47) 08/12/20 MCV 96.2 fL (80-100) 08/12/20 MCH 27.6 pg (25-34) 08/12/20 MCHC 28.6 g/dL (32-36) L 08/12/20 RDW Standard Deviation 62.8 fL (36.4-46.3) H 08/12/20 RDW Coefficient of Variation 17.8 % (11.5-14.5) H 08/12/20 Plt Count 85 K/uL (130-400) L 08/12/20 MPV 11.3 fL (7.4-10.4) H 08/12/20 Nucleated Red Blood Cells % (auto) 0.2 % 08/12/20 Nucleated RBC Absolute Count (auto) 0.02 K/uL (0-0) H 08/12/20 Neutrophils (%) (Auto) 79.5 % 08/12/20 Lymphocytes (%) (Auto) 9.4 % 08/12/20 Monocytes # (Auto) 0.72 K/uL (0.11-0.59) H 08/12/20 Eosinophils # (Auto) 0.20 K/uL (0-0.5) 08/12/20 Immature Granulocyte % (Auto) 1.3 % 08/12/20 Neutrophils # (Auto) 7.49 K/uL (1.4-6.5) H 08/12/20 Lymphocytes # (Auto) 0.89 K/uL (1.2-3.4) L 08/12/20 Monocytes # (Auto) 0.72 K/uL (0.11-0.59) H 08/12/20 Eosinophils # (Auto) 0.20 K/uL (0-0.5) 08/12/20 Basophils # (Auto) 0.01 K/uL (0-0.2) 08/12/20 Immature Granulocyte # (Auto) 0.12 K/uL (0.00-0.02) H 08/12/20 Polychromasia 1+ 08/12/20 Hypochromasia Present 08/12/20 Basophilic Stippling 1+ 08/11/20 Na 142 mmol/L (136-145) 08/12/20 K 3.6 mmol/L (3.5-5.1) 08/12/20 Cl 101 mmol/L (98-107) 08/12/20 CO2 39 mmol/L (21-32) H 08/12/20 Anion Gap 2.0 (3-11) L 08/12/20 BUN 22 mg/dl (7-18) H 08/12/20 Creatinine 0.82 mg/dl (0.6-1.2) 08/12/20 Estimated GFR ( Amer) 84.0 ml/min 08/12/20 Estimated GFR (Non-Af Amer) 72.5 ml/min 08/12/20 BUN/Creatinine Ratio 26.2 (10-20) H 08/12/20 Glu 136 mg/dl (70-99) H 08/12/20 Ca 8.5 mg/dl (8.5-10.1) 08/12/20 Phosphorus Level 1.8 mg/dl (2.5-4.9) L 08/12/20 Total Bilirubin 0.6 mg/dl (0.2-1) 08/12/20 AST 8 U/L (15-37) L 08/12/20 ALT 11 U/L (12-78) L 08/12/20 Alkaline Phosphatase 67 U/L (45-117) 08/12/20 TP 6.0 gm/dl (6.4-8.2) L 08/12/20 Albumin 3.0 gm/dl (3.4-5.0) L 08/12/20 Globulin 3.0 gm/dl (2.5-4.0) 08/12/20 Albumin/Globulin Ratio 1.0 (0.9-2) 08/12/20 Mg 1.9 mg/dl (1.8-2.4) 08/12/20 05:20 08/12/20 Calcium Level 8.5 mg/dl (8.5-10.1) 08/12/20 05:20 08/12/20 Prothromb Time International Ratio 1.0 (0.9-1.1) 08/11/20 15:00 08/11/20 Venous Blood pH 7.14 (7.36-7.41) L 08/11/20 16:43 08/11/20 Venous Blood Partial Pressure CO2 134 mmHg (38-50) H 08/11/20 16:43 08/11/20 Venous Blood Partial Pressure O2 65 mmHg 08/11/20 16:43 08/11/20 Venous Blood HCO3 45 mmol/L 08/11/20 16:43 08/11/20 Venous Blood Base Excess 11.3 mEq/L 08/11/20 16:43 08/11/20 Venous Blood Oxygen Saturation 91.0 % 08/11/20 16:43 08/11/20 Blood Gas Barometric Pressure 737.0 mm/Hg 08/11/20 16:43 08/11/20 Bill Test Pass 08/12/20 05:03 08/12/20 Blood Gas Barometric Pressure 737.0 mm/Hg 08/11/20 16:43 08/11/20 Microbiology 08/11/20 22:45 Gram Stain - Final Sputum,Vent Suction Diagnostic Findings (Past 24 Hours) Chest X-Ray 08/11/20 15:36 XR chest 1V portable HISTORY: Dyspnea COMPARISON: Chest 10/25/2019. FINDINGS: No pneumothorax. Small to moderate right and small left pleural effusions. Perihilar hazy airspace opacities, right greater the left with diffuse interstitial/vascular thickening. This favors moderate pulmonary edema. An atypical pneumonia could also have a similar appearance in the appropriate clinical setting. There are low lung volumes. The heart remains enlarged. IMPRESSION: 1. Above findings favor moderate asymmetric pulmonary edema with bilateral pleural effusions. 2. An atypical pneumonia could also have a similar appearance in the appropriate clinical setting. ACT 112: Negative or not required by law. Electronically signed by: Rah Lutz M.D. 08/11/2020 4:32 PM Chest CTA 08/11/20 16:31 CHEST CTA for PULMONARY ARTERIES CT DOSE: 832.09 mGy.cm HISTORY: PE, +dimer, hypoxia TECHNIQUE: Multiaxial CT images of the chest were performed following the intravenous administration of contrast to evaluate the pulmonary arteries. Maximal intensity projection images were also obtained. A dose lowering technique was utilized adhering to the principles of ALARA. COMPARISON STUDY: Chest CTA 11/04/2019. FINDINGS: Normal caliber thoracic aorta with no evidence for dissection. The heart is enlarged. No pericardial effusions. There are trace bilateral pleural effusions. Stable prominent mediastinal lymph nodes. Near nondiagnostic evaluation of the majority of the segmental and subsegmental pulmonary arteries due to the motion artifact and bilateral airspace opacities. However, no definite filling defects within the pulmonary arteries to suggest a pulmonary embolus. Limited views of the upper abdomen again demonstrate a cirrhotic liver, splenomegaly, and ascites. No suspicious lytic or blastic osseous lesions. No pn eumothorax. Small amount of mucoid material within the distal trachea. Mild diffuse interlobular septal thickening with patchy consolidative airspace opacities seen throughout the lungs. There is also dense consolidation seen within the majority of the bilateral lower lobes. IMPRESSION: 1. No evidence for pulmonary embolus with limitations as described above. 2. Multifocal bilateral airspace opacities with dense consolidation in the bilateral lower lobes. This favors a pneumonia and could be due to viral process. There is also cardiomegaly, trace bilateral pleural effusions, and interlobular septal thickening. Therefore, superimposed pulmonary edema could also have a similar appearance. 3. Redemonstration of the cirrhotic liver, splenomegaly, and ascites. ACT 112: Negative or not required by law. Electronically signed by: Rah Lutz M.D. 08/11/2020 5:18 PM Chest X-Ray 08/11/20 18:44 XR chest 1V portable HISTORY: intubation COMPARISON: Chest 08/11/2020. FINDINGS: Endotracheal tube terminates 3.5 cm and the markel. The nasogastric tube terminates below the diaphragm. The tip is not included on this study. Progressive bilateral perihilar airspace opacities. Cardiomegaly and the bilateral pleural effusions persist. No pneumothorax. IMPRESSION: 1. Satisfactory support line placement. 2. Progressive bilateral airspace opacities. 3. Cardiomegaly and bilateral pleural effusions persist. ACT 112: Negative or not required by law. Electronically signed by: Rah Lutz M.D. 08/11/2020 7:41 PM I & O Totals 24 Hours 08/11/20 08/12/20 08/13/20 06:59 06:59 06:59 Intake Total 263.844 / 263.844 Output Total 400 / 400 Balance -136.156 / -136.156 Cumulative 08/11/20 15:07 thru 08/12/20 06:07 Intake Total 263.844 Output Total 400 Balance -136.156 RT Ventilator Mngmt (Last Documented) Ventilator Ordered Settings Ventilator Support Mode Assist Control 08/12/20 07:26 Respiratory Rate 16 08/12/20 07:26 Ventilator Tidal Volume 500 08/12/20 07:26 Setting Minute Ventilation 8.0 08/12/20 07:26 Positive End Expiratory 14 08/12/20 07:26 Pressure Fraction of Inspired Oxygen 70 08/12/20 07:26 Peak Inspiratory Flow 32 08/12/20 07:26 Ventilator - PT Measurements Respiratory Rate 16 Exhaled Tidal Volume 501 Minute Ventilation 8.0 Peak Inspiratory Airway 32 Pressure Mean Airway Pressure 20 Plateau Pressure 27 Respiratory Cycle Inspiratory: 1:3.7 Expiratory Ratio Inspiratory Phase Time 0.80 End-Tidal CO2 52 Static Lung Compliance 38.54 Dynamic Lung Compliance 27.83 Normal Static Lung Compliance 47.00 Patient Measurements Comment FI02 decreased to 60%, PEEP decreased to +12 Coding Level of Care Code Critical Care 1st 30-74 mins Diagnoses Admitted to intensive care unit Z78.9 Encephalopathy acute G93.40 Respiratory acidosis E87.2 Acute on chronic respiratory failure with hypoxia and hypercapnia J96.21; J96.22 Pneumonia J18.1 Laterality: bilateral Lung location: lower lobe of lung Pneumonia type: due to unspecified organism Morbid obesity E66.01 (1) Pneumonia Laterality: bilateral Lung location: lower lobe of lung Pneumonia type: due to unspecified organism Qualified Code(s): J18.1 - Lobar pneumonia, unspecified organism
[2020-08-12] MEDS: FUROSEMIDE 40 MG in SYRINGE 0 ML IV SCH (08:18)
--- NOTE | 2020-08-12 08:32 | XRay Report ---
SINGLE VIEW CHEST CLINICAL HISTORY: Respiratory failure. FINDINGS: An AP, portable, upright chest radiograph is compared to chest x-ray and chest CT dated 07/16. The examination is degraded by portable technique, large body habitus, and patient rotation. Endotracheal and enteric tubes are unchanged in position. The heart is enlarged. There is pulmonary v ascular congestion. Bilateral airspace opacities are unchanged. Suspect small pleural effusions. No p neumothorax is seen. The skeletal structures are osteopenic. The bony thorax is grossly intact. IMPRESSION: 1. Stable lines and tubes. 2. Cardiomegaly with evidence of congestive failure. 3. Airspace opacities throughout both lungs have modestly improved as compared to yesterday. This cou ld represent pulmonary edema and/or multifocal pneumonia. Clinical correlation will be required and c ontinued follow-up to resolution is recommended. ACT 112: Negative or not required by law. Electronically signed by: Luis Meraz M.D. 08/12/2020 8:30 AM
[2020-08-12] MEDS ORDERED: methylPREDNISolone 20 MG in SYRINGE 0 ML IV SCH (09:00)
[2020-08-12] MEDS: ERTAPENEM SODIUM 1,000 MG in SODIUM CHLORIDE 0.9% 50 ML IV SCH (10:39)
[2020-08-12] MEDS ORDERED: PEPTAMEN INTENSE VHP 1.0 CAL 1,000 ML BAG OG SCH (11:15)
[2020-08-12] MEDS: INSULIN ASPART 100 UNITS/ML 3 ML PEN SC SCH ×3 (12:59→20:38)
[2020-08-12] MEDS: TUBE FEEDING WATER FLUSH NG SCH ×4 (13:01→22:41)
[2020-08-12] MEDS: HEPARIN SOD 5,000 UNIT/0.5 ML VIAL SQ SCH ×2 (13:02→21:47)
[2020-08-12] MEDS ORDERED: PHARMACY GLYCEMIC MGMT CONSULT PRN (13:06)
--- NOTE | 2020-08-12 14:11 | Pharmacy Report ---
Pharmacy Glycemic Short Note 2 - Date of Service August 12, 2020 - Glycemic Short BSG Results (Last 24 hours): 08/11/20 08/11/20 08/12/20 15:00 21:57 05:20 Glucose 239 H 136 H POC Glucose 188 H 08/12/20 12:57 Glucose POC Glucose 165 H OUTPATIENT ANTIDIABETIC REGIMEN: * Tresiba (insulin degludec) 67 units w/ lunch + 67 units dinner * Regular insulin 70 w/ breakfast + 30 w/ lunch + 40 w/ dinner * Metformin ER 2000mg daily? * Jardiance 25mg daily? * A1c = 5.4% 07/09/19 ASSESSMENT: * Patient previously known to the glycemic service, now admitted to the ICU for respiratory failure, requiring intubation. Typically BID-TID NPH plus novolog is utilized due to lantus/levemir allergy. BSGs elevated yesterday after a one time dose of IV steroids. Trickle tube feeds were initiated mid day. Discussed with ICU team and will plan on q4 novolog to cover trickle feeds and as correctional insulin in addition to a reduced dose of NPH this evening. Will proceed cautiously as BSGs reasonable thus far today and minimal PO intake. * Will consider transition to IV insulin infusion if current regimen is not adequate PLAN FOR INPATIENT GLYCEMIC CONTROL: * Hold outpatient oral diabetes medications * Basal insulin * NPH 15,20,25 units SQ per BSG @ 1700- see MAR for details * Bolus insulin * NovoLog per scale ACHS or q4hrs while NPO * Goal Range: Low 110 mg/dL - High 140 mg/dL * Correction Factor: 10 mg/dL/unit * Nutritional / Prandial insulin per carb ratio of 1 unit per 3 grams CHO consumed
--- NOTE | 2020-08-12 16:07 | Electrocardiogram Report ---
Test Reason : Blood Pressure : / mmHG Vent. Rate : 100 BPM Atrial Rate : 100 BPM P-R Int : 152 ms QRS Dur : 076 ms QT Int : 356 ms P-R-T Axes : 033 -01 037 degrees QTc Int : 459 ms Poor data quality, interpretation may be adversely affected Sinus rhythm with occasional Premature ventricular complexes and Premature atrial complexes Otherwise normal ECG When compared with ECG of 27-OCT-2019 07:23, Premature ventricular complexes are now Present Premature atrial complexes are now Present Confirmed by Aleksander Gallardo ([id number]) on 08/12/2020 4:07:41 PM Referred By: Confirmed By:Aleksander Gallardo
[2020-08-12] MEDS ORDERED: INSULIN HUMAN NPH SC SCH (17:00)
[2020-08-12] MEDS: ICU ELECTROLYTE REPLACEMENT PROTOCOL SCH (18:07)
[2020-08-13] MEDS: INSULIN ASPART 100 UNITS/ML 3 ML PEN SC SCH ×6 (00:37→21:25)
[2020-08-13] MEDS: fentaNYL citrate 100 MCG/2 ML VIAL IV PRN (01:24)
[2020-08-13] MEDS: propofoL 1,000 MG/100 ML VIAL IV SCH ×4 (04:56→09:54)
[2020-08-13] MEDS: TUBE FEEDING WATER FLUSH NG SCH ×3 (04:56→10:26)
[2020-08-13 05:28] LABS: Basophils # (auto) 0.01 K/uL (0-0.2); Basophils % (auto) 0.1 %; Eosinophils # (auto) 0.14 K/uL (0-0.5); Eosinophils % (auto) 1.9 %; Hematocrit (blood only) 34.8 % (37-47); Hemoglobin 10.3 g/dL (12.0-16.0); Immature Granulocytes # (auto) 0.07 K/uL (0.00-0.02); Immature Granulocytes % (auto) 0.9 %; Lymphocytes # (auto) 1.54 K/uL (1.2-3.4); Lymphocytes % (auto) 20.5 %; Mean Corpuscular Hemoglobin 27.5 pg (25-34); Mean Corpuscular Hgb Conc 29.6 g/dL (32-36); Mean Corpuscular Volume 92.8 fL (80-100); Monocytes # (auto) 0.66 K/uL (0.11-0.59); Monocytes % (auto) 8.8 %; Neutrophils % (auto) 67.8 %; Platelet Count 100 K/uL (130-400); RDW Coefficient of Variation 17.9 % (11.5-14.5); RDW Standard Deviation 60.4 fL (36.4-46.3); Red Blood Count 3.75 M/uL (4.2-5.4); White Blood Count 7.52 K/uL (4.8-10.8)
[2020-08-13 05:30] LABS: iSTAT Allen Test Pass; iSTAT Art Bld Gas pCO2 Correct 49 mmHg (35-46); iSTAT Art Bld Gas pH Corrected 7.536 (7.35-7.45); iSTAT Arterial Blood Gas HCO3 42 meg/L (19-24); iSTAT Arterial Blood Gas pCO2 48 mmHg (35-46); iSTAT Arterial Blood Gas pH 7.54 (7.35-7.45); iSTAT Arterial Blood Gas pO2 60 mmHg (80-95); iSTAT Arterial Blood Gas pO2 C 62; iSTAT Carbon Dioxide > 40 mmol/L (24-31); iSTAT FiO2 40 %; iSTAT Hematocrit 32 % (37-47); iSTAT Hemoglobin 10.9 g/dl (12.0-16.0); iSTAT Potassium 3.3 mmol/L (3.3-5.0); iSTAT Site L Radial; iSTAT Sodium 142 mmol/L (135-144)
[2020-08-13 05:46] LABS: BUN Creatinine Ratio 35.4 (10-20); Calcium 8.4 mg/dl (8.5-10.1); Creatinine Clr Calc Pharmacy 121.7 ml/min; Est GFR (African American) 102.2 ml/min; Est GFR (Non-African American) 88.2 ml/min; Magnesium 1.9 mg/dl (1.8-2.4); Phosphorus 2.4 mg/dl (2.5-4.9); Potassium 3.3 mmol/L (3.5-5.1)
[2020-08-13] MEDS ORDERED: POTASSIUM PHOS 3 MMOL/1 ML INFUSION IV STA (06:00)
[2020-08-13] MEDS: ICU ELECTROLYTE REPLACEMENT PROTOCOL SCH ×2 (06:03→16:27)
[2020-08-13] MEDS: HEPARIN SOD 5,000 UNIT/0.5 ML VIAL SQ SCH ×3 (06:13→21:12)
[2020-08-13] MEDS: POTASSIUM CHLORIDE / WTR 10 MEQ/100 ML PLCT IV SCH ×3 (06:14→08:01)
[2020-08-13] MEDS: LEVOTHYROXINE SODIUM 100 MCG TABLET PO SCH (06:14)
[2020-08-13] MEDS ORDERED: POTASSIUM PHOSPHATE 15 MMOL in SODIUM CHLORIDE 0.9% 250 ML IV ONE (06:15)
[2020-08-13 07:13] LABS: Estimated Average Glucose 111 mg/dl; Hemoglobin A1C 5.5 % (4.5-5.6)
[2020-08-13] MEDS: FUROSEMIDE 40 MG in SYRINGE 0 ML IV SCH (08:00)
[2020-08-13] MEDS ORDERED: FUROSEMIDE 40 MG in SYRINGE 0 ML IV ONE (08:06)
--- NOTE | 2020-08-13 08:06 | XRay Report ---
XR chest 1V portable HISTORY: Respiratory failure. Follow-up. COMPARISON: Chest 08/12/2020. FINDINGS: Endotracheal tube terminates 3.6 cm and the markel. The nasogastric tube terminates below t he diaphragm. The tip is not included on this study. No pneumothorax. Small bilateral pleural effusio ns and bilateral perihilar airspace opacities persist. The heart remains mildly enlarged. IMPRESSION: 1. Stable lines and tubes. 2. Cardiomegaly and small bilateral pleural effusions, unchanged. 2. Bilateral airspace opacities persist. ACT 112: Negative or not required by law. Electronically signed by: Rah Lutz M.D. 08/13/2020 8:05 AM
--- NOTE | 2020-08-13 08:09 | Critical Care Progress Note ---
Date of Service August 13, 2020 Assessment & Plan (1) Admitted to intensive care unit: Impression: 69-year-old female with morbid obesity and obesity hypoventilation syndrome admitted with acute on chronic hypercarbic respiratory failure and metabolic encephalopathy requiring intubation mechanical ventilation in the emergency room. 24-hour events: Patient presented to the emergency room. She had a CT which showed patchy infiltrates bilaterally. There was also significant dynamic airway collapse noted. She failed BiPAP in the emergency room and was subsequently intubated. She was treated with meropenem for presumed pneumonia. Recommendations: 1. Neurologic: The patient is currently awake on the ventilator and able to follow commands. She is appears comfortable. Holding sedation and tube feeds this morning in hopes of SBT and potential extubation. Suspect her encephalopathy was related to elevated CO2 levels. 2. Pulmonary: Respiratory alkalosis today. It appears that her baseline CO2 is somewhere around 60. We will perform SBT this morning but use higher PEEP in light of her dynamic airway collapse and plans to extubate to BiPAP/ASV. Continue current PEEP at 12 given the significant dynamic airway collapse noted on the CT scan. Wean FiO2 as tolerated. She will likely need to be extubated to bilevel or ASV. Sputum culture with gram-negative rods, see ID below. We will trend procalcitonin on antibiotics. Continue gentle diuresis. I suspect that her hemoptysis has been related to traumatic intubation, pulmonary hemorrhage less likely. We will follow closely. 3. Renal: Serum creatinine is stable. Electrolytes acceptable, on replacement protocol. Blood gas shows a metabolic alkalosis likely due to overcorrection of CO2. Diamox today 4. GI: Hold tube feedings this morning in hopes of extubation. Weight loss is essential in improving the patient's multiple medical issues 5. Endocrine: Glycemic control per pharmacy. Continue Synthroid 6. ID: Day #3 ertapenem. Gram-negative rods in sputum, speciation and sensitivity pending. Continue antibiotics for now 7. CV: No current issues. Continue to follow. Additional dose of Diamox for metabolic alkalosis today 8. H/O: No current issues. Heparin for DVT proph. Will need aggressive PT and OT when extubated. 40 min coordinating care including discussion with the critical care NICK and with the bedside critical care nurse and respiratory therapy. She was discussed on multidisciplinary rounds as well. No family immediately available. We will try and update them today if possible (2) Encephalopathy acute: (3) Respiratory acidosis: (4) Acute on chronic respiratory failure with hypoxia and hypercapnia: (5) Pneumonia: (6) Morbid obesity: Admission and Anticipated Discharge Date Admission Date: August 11, 2020 Subjective intubated and sedated Review of Systems Review of Systems: Unobtainable due to endotracheal tube Physical Exam Constitutional: + morbidly obese and + mechanically ventilated Neck: trachea midline, no thyromegaly Respiratory: no respiratory distress Auscultation: + crackles and + rales; no wheezes Cardiovascular: RRR, no murmur, no edema Gastrointestinal (Abdomen): normal bowel sounds, soft, nontender, no hepatosplenomegaly Musculoskeletal: Extremities: extremities normal to inspection Skin: no rashes, warm and dry Lymphatic: no cervical lymphadenopathy Results & Data Results & Data ([facility]) Vital Signs (Past 12 Hours) Vital Signs Temp Pulse Resp BP Pulse Ox 08/13/20 06:54 77 16 96 08/13/20 05:31 37.5 C 74 141/47 H 97 08/13/20 05:08 69 20 98 08/13/20 04:31 37.5 C 67 129/45 L 97 08/13/20 03:31 37.5 C 69 158/49 H 94 08/13/20 02:31 37.6 C H 67 135/51 L 94 08/13/20 01:30 37.6 C H 68 20 145/54 H 95 08/13/20 01:00 37.7 C H 75 20 133/57 L 94 08/13/20 00:30 37.7 C H 71 20 136/56 L 95 08/13/20 00:01 37.7 C H 78 136/65 93 08/13/20 00:00 77 08/12/20 23:01 37.8 C H 71 94 08/12/20 22:22 72 20 93 08/12/20 22:01 37.9 C H 76 94 08/12/20 21:01 37.8 C H 79 94 Critical Care Results & Data Vital Signs (Past 12 Hours) Vital Signs Temp Pulse Resp BP Pulse Ox 08/13/20 06:54 77 16 96 08/13/20 05:31 37.5 C 74 141/47 H 97 08/13/20 05:08 69 20 98 08/13/20 04:31 37.5 C 67 129/45 L 97 08/13/20 03:31 37.5 C 69 158/49 H 94 08/13/20 02:31 37.6 C H 67 135/51 L 94 08/13/20 01:30 37.6 C H 68 20 145/54 H 95 08/13/20 01:00 37.7 C H 75 20 133/57 L 94 08/13/20 00:30 37.7 C H 71 20 136/56 L 95 08/13/20 00:01 37.7 C H 78 136/65 93 08/13/20 00:00 77 08/12/20 23:01 37.8 C H 71 94 08/12/20 22:22 72 20 93 08/12/20 22:01 37.9 C H 76 94 08/12/20 21:01 37.8 C H 79 94 Lab & Micro Results (Past 24 Hours) RBC 3.75 M/uL (4.2-5.4) L 08/13/20 WBC 7.52 K/uL (4.8-10.8) 08/13/20 Hgb 10.3 g/dL (12.0-16.0) L 08/13/20 Hct 34.8 % (37-47) L 08/13/20 MCV 92.8 fL (80-100) 08/13/20 MCH 27.5 pg (25-34) 08/13/20 MCHC 29.6 g/dL (32-36) L 08/13/20 RDW Standard Deviation 60.4 fL (36.4-46.3) H 08/13/20 RDW Coefficient of Variation 17.9 % (11.5-14.5) H 08/13/20 Plt Count 100 K/uL (130-400) L 08/13/20 MPV 11.0 fL (7.4-10.4) H 08/13/20 Neutrophils (%) (Auto) 67.8 % 08/13/20 Lymphocytes (%) (Auto) 20.5 % 08/13/20 Monocytes # (Auto) 0.66 K/uL (0.11-0.59) H 08/13/20 Eosinophils # (Auto) 0.14 K/uL (0-0.5) 08/13/20 Immature Granulocyte % (Auto) 0.9 % 08/13/20 Neutrophils # (Auto) 5.10 K/uL (1.4-6.5) 08/13/20 Lymphocytes # (Auto) 1.54 K/uL (1.2-3.4) 08/13/20 Monocytes # (Auto) 0.66 K/uL (0.11-0.59) H 08/13/20 Eosinophils # (Auto) 0.14 K/uL (0-0.5) 08/13/20 Basophils # (Auto) 0.01 K/uL (0-0.2) 08/13/20 Immature Granulocyte # (Auto) 0.07 K/uL (0.00-0.02) H 08/13/20 Na 141 mmol/L (136-145) 08/13/20 K 3.3 mmol/L (3.5-5.1) L 08/13/20 Cl 99 mmol/L (98-107) 08/13/20 CO2 39 mmol/L (21-32) H 08/13/20 Anion Gap 3.0 (3-11) 08/13/20 BUN 25 mg/dl (7-18) H 08/13/20 Creatinine 0.69 mg/dl (0.6-1.2) 08/13/20 Estimated GFR ( Amer) 102.2 ml/min 08/13/20 Estimated GFR (Non-Af Amer) 88.2 ml/min 08/13/20 BUN/Creatinine Ratio 35.4 (10-20) H 08/13/20 Glu 100 mg/dl (70-99) H 08/13/20 Ca 8.4 mg/dl (8.5-10.1) L 08/13/20 Phosphorus Level 2.4 mg/dl (2.5-4.9) L 08/13/20 Mg 1.9 mg/dl (1.8-2.4) 08/13/20 04:55 08/13/20 Calcium Level 8.4 mg/dl (8.5-10.1) L 08/13/20 04:55 08/13/20 Bill Test Pass 08/13/20 05:17 08/13/20 Microbiology 08/11/20 22:45 Gram Stain - Final Sputum,Vent Suction Sputum Culture - Preliminary Gram negative bacilli 08/11/20 16:09 Aerobic Blood Culture - Preliminary Blood No growth in Aerobic bottle after 24 hours. Anaerobic Blood Culture - Final 08/11/20 16:12 Aerobic Blood Culture - Preliminary Blood No growth in Aerobic bottle after 24 hours. Anaerobic Blood Culture - Preliminary No growth in Anaerobic bottle after 24 hours. Diagnostic Findings (Past 24 Hours) Chest X-Ray 08/12/20 07:00 SINGLE VIEW CHEST CLINICAL HISTORY: Respiratory failure. FINDINGS: An AP, portable, upright chest radiograph is compared to chest x-ray and chest CT dated 08/11/2020. The examination is degraded by portable technique, large body habitus, and patient rotation. Endotracheal and enteric tubes are unchanged in position. The heart is enlarged. There is pulmonary vascular congestion. Bilateral airspace opacities are unchanged. Suspect small pleural effusions. No pneumothorax is seen. The skeletal structures are osteopenic. The bony thorax is grossly intact. IMPRESSION: 1. Stable lines and tubes. 2. Cardiomegaly with evidence of congestive failure. 3. Airspace opacities throughout both lungs have modestly improved as compared to yesterday. This could represent pulmonary edema and/or multifocal pneumonia. Clinical correlation will be required and continued follow-up to resolution is recommended. ACT 112: Negative or not required by law. Electronically signed by: Luis Meraz M.D. 08/12/2020 8:30 AM I & O Totals 24 Hours 08/12/20 08/13/20 08/14/20 06:59 06:59 06:59 Intake Total 263.844 / 263.844 902.743 / 902.743 265.634 / 265.634 Output Total 400 / 400 1038 / 1038 Balance -136.156 / -136.156 -135.257 / -135.257 265.634 / 265.634 Cumulative 08/11/20 15:07 thru 08/13/20 08:01 Intake Total 1432.221 Output Total 1438 Balance -5.779 RT Ventilator Mngmt (Last Documented) Ventilator Ordered Settings Ventilator Support Mode Assist Control 08/13/20 06:54 Respiratory Rate 16 08/13/20 06:54 Ventilator Tidal Volume 400 08/13/20 06:54 Setting Minute Ventilation 6.4 08/13/20 06:54 Positive End Expiratory 12 08/13/20 06:54 Pressure Fraction of Inspired Oxygen 40 08/13/20 06:54 Peak Inspiratory Flow 50 08/13/20 06:54 Machine Comment SpO2 96% on current ventilator 08/12/20 20:57 settings. Weaned per vent protocol. Ventilator - PT Measurements Respiratory Rate 16 Exhaled Tidal Volume 400 Minute Ventilation 6.4 Peak Inspiratory Airway 28 Pressure Mean Airway Pressure 17 Plateau Pressure 22 Respiratory Cycle Inspiratory: 1:4.9 Expiratory Ratio Inspiratory Phase Time 0.64 End-Tidal CO2 58 Static Lung Compliance 40.00 Dynamic Lung Compliance 25.00 Normal Static Lung Compliance 46.00 Patient Measurements Comment Decreased rate to 16 post ABG. Coding Level of Care Code 63961 Subseq Hosp Care Lvl 3 Diagnoses Admitted to intensive care unit Z78.9 Encephalopathy acute G93.40 Respiratory acidosis E87.2 Acute on chronic respiratory failure with hypoxia and hypercapnia J96.21; J96.22 Pneumonia J18.1 Laterality: bilateral Lung location: lower lobe of lung Pneumonia type: due to unspecified organism Morbid obesity E66.01 (1) Pneumonia Laterality: bilateral Lung location: lower lobe of lung Pneumonia type: due to unspecified organism Qualified Code(s): J18.1 - Lobar pneumonia, unspecified organism
[2020-08-13] MEDS ORDERED: FUROSEMIDE 40 MG/4 ML VIAL IV ONE (08:30)
[2020-08-13] MEDS: ERTAPENEM SODIUM 1,000 MG in SODIUM CHLORIDE 0.9% 50 ML IV SCH (10:25)
[2020-08-13] MEDS ORDERED: Nursing to Pharmacy Communication SCH (11:00)
[2020-08-13] MEDS: ACETAMINOPHEN 1,000 MG/100 ML VIAL IV PRN (11:36)
[2020-08-13] MEDS: acetaZOLAMIDE 250 MG TAB PO SCH ×2 (11:38→21:11)
--- NOTE | 2020-08-13 14:44 | Pharmacy Report ---
Pharmacy Glycemic Short Note 2 - Date of Service August 13, 2020 - Glycemic Short BSG Results (Last 24 hours): 08/12/20 08/12/20 08/13/20 16:46 19:21 00:36 Glucose POC Glucose 167 H 156 H 110 H 08/13/20 08/13/20 08/13/20 04:52 04:55 07:46 Glucose 100 H POC Glucose 99 87 08/13/20 11:41 Glucose POC Glucose 109 H OUTPATIENT ANTIDIABETIC REGIMEN: * Tresiba (insulin degludec) 67 units w/ lunch + 67 units dinner * Regular insulin 70 w/ breakfast + 30 w/ lunch + 40 w/ dinner * Metformin ER 2000mg daily? * Jardiance 25mg daily? * A1c = 5.4% 07/09/19 ASSESSMENT: 08/13: * Patient very well controlled today after a total of 31 units of insulin yesterday, 20 of which were NPH. * Patient was extubated this morning and has remained NPO. Given her BSGs today thus far (17-43-294-109 mg/dL) and uncertainty of diet order for today, will hold off on ordering any further NPH at this time. I did discuss with the ICU team to communicate with pharmacy if she ordered a diet this evening and is able to eat so that insulin orders may be adjusted if needed . 08/12 * Patient previously known to the glycemic service, now admitted to the ICU for respiratory failure, requiring intubation. Typically BID-TID NPH plus novolog is utilized due to lantus/levemir allergy. BSGs elevated yesterday after a one time dose of IV steroids. Trickle tube feeds were initiated mid day. Discussed with ICU team and will plan on q4 novolog to cover trickle feeds and as correctional insulin in addition to a reduced dose of NPH this evening. Will proceed cautiously as BSGs reasonable thus far today and minimal PO intake. * Will consider transition to IV insulin infusion if current regimen is not adequate PLAN FOR INPATIENT GLYCEMIC CONTROL: * Hold outpatient oral diabetes medications * Basal insulin * hold * Bolus insulin * NovoLog per scale ACHS or q4hrs while NPO * Goal Range: Low 110 mg/dL - High 140 mg/dL * Correction Factor: 10 mg/dL/unit * Nutritional / Prandial insulin per carb ratio of 1 unit per 3 grams CHO consumed
[2020-08-13] MEDS ORDERED: hydrALAZINE HCL 20 MG/ML VIAL IV PRN (16:35)
[2020-08-13] MEDS ORDERED: hydrALAZINE HCL 20 MG/ML VIAL ONE (16:48)
--- NOTE | 2020-08-13 17:14 | Hospitalist Progress Note ---
Date of Service August 13, 2020 Assessment & Plan (1) Acute on chronic respiratory failure with hypoxia and hypercapnia: (2) Morbid obesity: (3) Respiratory acidosis: (4) Metabolic encephalopathy: Pt is a 69 y/o F w/ hx of DM type 2 on insulin, morbid obesity (BMI 54), obesity hypoventilation syndrome, COPD, JOSE, hypothyroidism, chronic diastolic CHF, prior CVA, HTN, HLD, cirrhosis, splenomegaly, chronic pain, chronic hypoxic hypercapnic resp. failure (4L NC at baseline during the day, bipap at night) who presents d/t hypoxia for several days. In ED worsening mental status (likely d/t hypercarbia, hypoxia) and required intubation. +hemoptysis Pneumonia VBG ph 7.1, pCO2 134 CT PE - negative for PE, positive b/l pleural effusions, poss. PNA COVID negative and WBC wnl Procalcitonin -negative on admission, then elevated at 1.59 Sputum cultx grew pseudomonas Blood cultx no growth S/P extubated on 08/13 Continue Ertapenem to complete 10 days course Continue monitor in the ICU Clinically improve Hx of chronic distolic CHF - on PO lasix at home - pro BNP wnl - Continue Lasix 40mg IV daily - Continue Acetazolomide BID x 4 doses - cont. to closely monitor I/Os, electrolytes - troponin negative Further management per ICU Hypothyroidism - cont. levothyroxine DM type 2 - on insulin - management per ICU/ glycemic pharmacy ESBL UTI - UA positive for bacteria, nitrite - unclear if any urinary symptoms - urine cultx - pending - received 1 dose of meropenem on admission, may need to continue - further management per ICU Thrombocytopenia - chronic - poss. hemoptysis, no other signs of bleed noted - cont to closely monitor plt count DVT ppx - SCDs, per ICU, may hold off from chem. ppx given poss. hemoptysis, and thrombocytopenia CODE: FULL (confirmed w/ at the bedside) Admission and Anticipated Discharge Date Admission Date: August 11, 2020 Subjective Pt was seen and examined for follow for SOB Lying in bed with no acute distress She was extubated today Pt said that her breathing feels a lot better Denies any chest pain, palpitation, dizziness and SOB Review of Systems Review of Systems: All systems reviewed & are unremarkable except as noted in Subjective Physical Exam Physical Exam: General- No acute distress Head- atraumatic Eyes- PERRL, EOMI, ENT- oropharynx clear Neck- supple, no JVD Lungs- diminished BS Heart- regular rhythm; no murmur Abdomen- normal bowel sounds, soft, nontender Extremities- no calf tenderness Neuro- alert, oriented x 3; PERRL, EOMI; no facial palsy; no dysarthria Skin- warm & dry Results & Data Results & Data ([facility]) Vital Signs (Past 12 Hours) Vital Signs Temp Pulse Resp BP Pulse Ox 08/13/20 14:01 36.9 C 90 178/72 H 90 08/13/20 14:00 36.9 C 89 90 08/13/20 13:31 37.0 C 79 183/64 H 90 08/13/20 13:02 37.0 C 83 91 08/13/20 13:01 37.0 C 87 177/76 H 91 08/13/20 13:00 37.0 C 88 91 08/13/20 12:31 37.0 C 82 194/64 H 91 08/13/20 12:01 37.1 C 80 173/69 H 90 08/13/20 12:00 37.1 C 82 91 08/13/20 11:31 37.1 C 84 160/59 H 90 08/13/20 11:01 37.1 C 88 170/70 H 91 08/13/20 11:00 37.1 C 88 91 08/13/20 10:31 37.2 C 78 173/59 H 91 08/13/20 10:02 37.3 C 86 93 08/13/20 10:01 37.3 C 80 147/58 H 93 08/13/20 10:00 37.3 C 82 94 08/13/20 09:31 37.4 C 81 174/60 H 95 08/13/20 09:01 37.5 C 87 167/58 H 95 08/13/20 09:00 37.5 C 83 95 08/13/20 08:31 37.6 C H 73 187/77 H 95 08/13/20 08:02 37.5 C 77 95 08/13/20 08:01 37.4 C 79 145/67 H 96 08/13/20 08:00 37.4 C 79 95 08/13/20 07:31 37.4 C 74 156/51 H 96 08/13/20 07:01 37.4 C 81 153/64 H 96 08/13/20 07:00 37.4 C 72 96 08/13/20 06:54 77 16 96 08/13/20 05:31 37.5 C 74 141/47 H 97
[2020-08-13] MEDS: METOPROLOL TARTRATE 25 MG TAB PO SCH (21:11)
[2020-08-14 05:31] LABS: Hematocrit (blood only) 35.8 % (37-47); Hemoglobin 10.4 g/dL (12.0-16.0); Mean Corpuscular Hgb Conc 29.1 g/dL (32-36); Mean Corpuscular Volume 96.2 fL (80-100); RDW Coefficient of Variation 17.9 % (11.5-14.5); RDW Standard Deviation 62.8 fL (36.4-46.3); Red Blood Count 3.72 M/uL (4.2-5.4); White Blood Count 6.16 K/uL (4.8-10.8)
[2020-08-14 05:35] LABS: Mean Platelet Volume 11.1 fL (7.4-10.4); Platelet Count 86 K/uL (130-400)
[2020-08-14 05:47] LABS: BUN Creatinine Ratio 39.7 (10-20); Calcium 8.1 mg/dl (8.5-10.1); Est GFR (African American) 112.9 ml/min; Est GFR (Non-African American) 97.4 ml/min; Magnesium 1.9 mg/dl (1.8-2.4); Potassium 3.3 mmol/L (3.5-5.1)
[2020-08-14 06:00] LABS: Phosphorus 4.3 mg/dl (2.5-4.9)
[2020-08-14] MEDS: HEPARIN SOD 5,000 UNIT/0.5 ML VIAL SQ SCH ×3 (06:00→21:30)
[2020-08-14] MEDS: LEVOTHYROXINE SODIUM 100 MCG TABLET PO SCH (06:00)
[2020-08-14 06:52] LABS: Basophils # (auto) 0.02 K/uL (0-0.2); Basophils % (auto) 0.3 %; Eosinophils % (auto) 3.2 %; Immature Granulocytes # (auto) 0.04 K/uL (0.00-0.02); Immature Granulocytes % (auto) 0.6 %; Lymphocytes # (auto) 1.01 K/uL (1.2-3.4); Lymphocytes % (auto) 16.4 %; Monocytes # (auto) 0.51 K/uL (0.11-0.59); Monocytes % (auto) 8.3 %; Neutrophils # (auto) 4.38 K/uL (1.4-6.5); Neutrophils % (auto) 71.2 %
[2020-08-14] MEDS: POTASSIUM CHLORIDE / WTR 10 MEQ/100 ML PLCT IV SCH ×4 (06:59→10:38)
[2020-08-14] MEDS ORDERED: CALCIUM GLUCONATE 10% 1,000 MG in SODIUM CHLORIDE 0.9% 50 ML IV ONE (07:00)
[2020-08-14] MEDS: ICU ELECTROLYTE REPLACEMENT PROTOCOL SCH (07:12)
[2020-08-14] MEDS: METOPROLOL TARTRATE 25 MG TAB PO SCH ×2 (07:38→21:30)
[2020-08-14] MEDS: acetaZOLAMIDE 250 MG TAB PO SCH ×2 (07:38→21:30)
[2020-08-14] MEDS: FUROSEMIDE 40 MG in SYRINGE 0 ML IV SCH (07:39)
[2020-08-14] MEDS: INSULIN ASPART 100 UNITS/ML 3 ML PEN SC SCH ×4 (07:40→21:37)
--- NOTE | 2020-08-14 07:52 | XRay Report ---
XR chest 1V portable CLINICAL HISTORY: Respiratory failure. Follow-up study COMPARISON STUDY: 08/13/2020 FINDINGS: The heart remains enlarged. There are bilateral pulmonary airspace opacities consistent wit h a multifocal pneumonia. There is been interval removal of the endotracheal tube and enteric tube. S mall pleural effusions are not excluded. There is a persistent chondroid type lesion within the proxi mal right humerus[ IMPRESSION: 1. Persistent bilateral pulmonary airspace opacities 2. Persistent cardiomegaly 3. Interval removal of the endotracheal tube and enteric tube. ACT 112: Negative or not required by law. Electronically signed by: Yvon Hermosillo M.D. 08/14/2020 7:51 AM
--- NOTE | 2020-08-14 07:53 | Critical Care Progress Note ---
Date of Service August 14, 2020 Assessment & Plan (1) Admitted to intensive care unit: Impression: 69-year-old female with morbid obesity and obesity hypoventilation syndrome admitted with acute on chronic hypercarbic respiratory failure and metabolic encephalopathy requiring intubation mechanical ventilation in the emergency room. 24-hour events: Patient was extubated yesterday. She was on BiPAP post extubation and overnight. She tried her trilogy unit apparently it may have not been providing adequate support and she was transitioned to our bilevel overnight. She was started on metoprolol and hydralazine for hypertension. She passed a bedside swallow study and diet was advanced. Recommendations: 1. Neurologic: No current issues. 2. Pulmonary: Acute on chronic hypercarbic and hypoxemic respiratory failure: Secondary pneumonia and obesity hypoventilation. Improved today. Continue noninvasive positive pressure ventilation overnight, will discuss with respiratory therapy the issue with her home trilogy but would favor using her home unit while in the hospital. Wean oxygen as tolerated. 3. Renal: Serum creatinine is stable. Electrolytes acceptable, on replacement protocol. Continue daily Lasix. Hold additional IV fluids 4. GI: Hold tube feedings this morning in hopes of extubation. Weight loss is essential in improving the patient's multiple medical issues 5. Endocrine: Glycemic control per pharmacy. Continue Synthroid 6. ID: Day #4 ertapenem. Urine with ESBL Klebsiella, resistant to cefazolin cefepime cefotaxime ceftriaxone Unasyn Macrodantin and Bactrim but sensitive to ertapenem. Sputum with Pseudomonas sensitive to meropenem with intermediate resistance to Cipro and gentamicin. Manito contact isolation and continue ertapenem to complete course. Given Pseudomonas in the sputum, would recommend 10 days antimicrobial therapy. 7. CV: No current issues. Continue to follow. 8. H/O: No current issues. Heparin for DVT proph. The patient reportedly is essentially bedbound at home. She gets up to a rocking chair about once or twice a week. The family has a Tere lift at home. Unlikely to change her functional status during this hospitalization. 40 min coordinating care including discussion with the critical care NICK and with the bedside critical care nurse and respiratory therapy as well as with the patient. She was discussed on multidisciplinary rounds as well. Patient is stable to transfer out of the intensive care unit to the floor under the care of the hospitalist. Will sign off from a critical care perspective when she leaves the ICU. (2) Encephalopathy acute: (3) Respiratory acidosis: (4) Acute on chronic respiratory failure with hypoxia and hypercapnia: (5) Pneumonia: (6) Morbid obesity: Admission and Anticipated Discharge Date Admission Date: August 11, 2020 Review of Systems Review of Systems: All systems reviewed & are unremarkable except as noted in HPI & below Physical Exam Constitutional: + morbidly obese Neck: trachea midline, no thyromegaly Respiratory: no respiratory distress Auscultation: + crackles and + rales; no wheezes Cardiovascular: RRR, no murmur, no edema Gastrointestinal (Abdomen): normal bowel sounds, soft, nontender, no hepatosplenomegaly Musculoskeletal: Extremities: extremities normal to inspection Skin: no rashes, warm and dry Lymphatic: no cervical lymphadenopathy Results & Data Results & Data ([facility]) Vital Signs (Past 12 Hours) Vital Signs Temp Pulse Resp BP Pulse Ox 08/14/20 06:30 36.8 C 73 13 144/60 H 90 08/14/20 06:29 36.8 C 70 21 144/54 H 89 L 08/14/20 06:01 36.8 C 74 20 157/56 H 88 L 08/14/20 05:47 36.8 C 78 22 115/71 88 L 08/14/20 05:05 36.7 C 74 23 159/56 H 93 08/14/20 04:31 36.7 C 59 L 30 H 177/61 H 94 08/14/20 04:02 36.7 C 65 16 93 08/14/20 04:01 36.7 C 59 L 30 H 174/66 H 94 08/14/20 03:31 36.7 C 64 33 H 169/60 H 94 08/14/20 03:01 36.8 C 63 30 H 180/62 H 94 08/14/20 02:35 63 25 H 94 08/14/20 02:31 36.8 C 71 27 H 179/60 H 94 08/14/20 02:02 36.9 C 61 35 H 94 08/14/20 02:01 36.9 C 65 36 H 175/61 H 94 08/14/20 02:00 36.9 C 60 34 H 94 08/14/20 01:31 36.9 C 73 28 H 189/64 H 95 08/14/20 01:30 36.9 C 75 32 H 93 08/14/20 01:01 37.0 C 60 33 H 177/62 H 94 08/14/20 01:00 37.0 C 67 28 H 94 08/14/20 00:31 37.1 C 60 27 H 167/60 H 95 08/14/20 00:30 37.1 C 68 22 94 08/14/20 00:02 37.2 C 63 28 H 93 08/14/20 00:01 37.2 C 67 31 H 169/55 H 93 08/13/20 23:31 37.3 C 61 34 H 171/56 H 94 08/13/20 23:02 37.3 C 59 L 34 H 97 08/13/20 23:01 37.3 C 61 34 H 166/60 H 97 08/13/20 22:30 37.3 C 58 L 33 H 156/66 H 97 08/13/20 22:01 37.3 C 59 L 28 H 149/66 H 96 08/13/20 21:32 37.2 C 68 18 93 08/13/20 21:31 37.2 C 71 19 166/63 H 92 08/13/20 21:28 73 16 93 08/13/20 21:02 37.1 C 69 18 89 L 08/13/20 21:01 37.1 C 75 16 168/58 H 88 L 08/13/20 20:32 37.1 C 84 87 L 08/13/20 20:31 37.1 C 87 176/65 H 88 L 08/13/20 20:01 37.1 C 82 164/61 H 92 Critical Care Results & Data Vital Signs (Past 12 Hours) Vital Signs Temp Pulse Resp BP Pulse Ox 08/14/20 06:30 36.8 C 73 13 144/60 H 90 08/14/20 06:29 36.8 C 70 21 144/54 H 89 L 08/14/20 06:01 36.8 C 74 20 157/56 H 88 L 08/14/20 05:47 36.8 C 78 22 115/71 88 L 08/14/20 05:05 36.7 C 74 23 159/56 H 93 08/14/20 04:31 36.7 C 59 L 30 H 177/61 H 94 08/14/20 04:02 36.7 C 65 16 93 08/14/20 04:01 36.7 C 59 L 30 H 174/66 H 94 08/14/20 03:31 36.7 C 64 33 H 169/60 H 94 08/14/20 03:01 36.8 C 63 30 H 180/62 H 94 08/14/20 02:35 63 25 H 94 08/14/20 02:31 36.8 C 71 27 H 179/60 H 94 08/14/20 02:02 36.9 C 61 35 H 94 08/14/20 02:01 36.9 C 65 36 H 175/61 H 94 08/14/20 02:00 36.9 C 60 34 H 94 08/14/20 01:31 36.9 C 73 28 H 189/64 H 95 08/14/20 01:30 36.9 C 75 32 H 93 08/14/20 01:01 37.0 C 60 33 H 177/62 H 94 08/14/20 01:00 37.0 C 67 28 H 94 08/14/20 00:31 37.1 C 60 27 H 167/60 H 95 08/14/20 00:30 37.1 C 68 22 94 08/14/20 00:02 37.2 C 63 28 H 93 08/14/20 00:01 37.2 C 67 31 H 169/55 H 93 08/13/20 23:31 37.3 C 61 34 H 171/56 H 94 08/13/20 23:02 37.3 C 59 L 34 H 97 08/13/20 23:01 37.3 C 61 34 H 166/60 H 97 08/13/20 22:30 37.3 C 58 L 33 H 156/66 H 97 08/13/20 22:01 37.3 C 59 L 28 H 149/66 H 96 08/13/20 21:32 37.2 C 68 18 93 08/13/20 21:31 37.2 C 71 19 166/63 H 92 08/13/20 21:28 73 16 93 08/13/20 21:02 37.1 C 69 18 89 L 08/13/20 21:01 37.1 C 75 16 168/58 H 88 L 08/13/20 20:32 37.1 C 84 87 L 08/13/20 20:31 37.1 C 87 176/65 H 88 L 08/13/20 20:01 37.1 C 82 164/61 H 92 Lab & Micro Results (Past 24 Hours) RBC 3.72 M/uL (4.2-5.4) L 08/14/20 WBC 6.16 K/uL (4.8-10.8) 08/14/20 Hgb 10.4 g/dL (12.0-16.0) L 08/14/20 Hct 35.8 % (37-47) L 08/14/20 MCV 96.2 fL (80-100) 08/14/20 MCH 28.0 pg (25-34) 08/14/20 MCHC 29.1 g/dL (32-36) L 08/14/20 RDW Standard Deviation 62.8 fL (36.4-46.3) H 08/14/20 RDW Coefficient of Variation 17.9 % (11.5-14.5) H 08/14/20 Plt Count 86 K/uL (130-400) L 08/14/20 MPV 11.1 fL (7.4-10.4) H 08/14/20 Neutrophils (%) (Auto) 71.2 % 08/14/20 Lymphocytes (%) (Auto) 16.4 % 08/14/20 Monocytes # (Auto) 0.51 K/uL (0.11-0.59) 08/14/20 Eosinophils # (Auto) 0.20 K/uL (0-0.5) 08/14/20 Immature Granulocyte % (Auto) 0.6 % 08/14/20 Neutrophils # (Auto) 4.38 K/uL (1.4-6.5) 08/14/20 Lymphocytes # (Auto) 1.01 K/uL (1.2-3.4) L 08/14/20 Monocytes # (Auto) 0.51 K/uL (0.11-0.59) 08/14/20 Eosinophils # (Auto) 0.20 K/uL (0-0.5) 08/14/20 Basophils # (Auto) 0.02 K/uL (0-0.2) 08/14/20 Immature Granulocyte # (Auto) 0.04 K/uL (0.00-0.02) H 08/14/20 Na 142 mmol/L (136-145) 08/14/20 K 3.3 mmol/L (3.5-5.1) L 08/14/20 Cl 100 mmol/L (98-107) 08/14/20 CO2 40 mmol/L (21-32) H 08/14/20 Anion Gap 2.0 (3-11) L 08/14/20 BUN 20 mg/dl (7-18) H 08/14/20 Creatinine 0.51 mg/dl (0.6-1.2) L 08/14/20 Estimated GFR ( Amer) 112.9 ml/min 08/14/20 Estimated GFR (Non-Af Amer) 97.4 ml/min 08/14/20 BUN/Creatinine Ratio 39.7 (10-20) H 08/14/20 Glu 84 mg/dl (70-99) 08/14/20 Ca 8.1 mg/dl (8.5-10.1) L 08/14/20 Phosphorus Level 4.3 mg/dl (2.5-4.9) 08/14/20 Mg 1.9 mg/dl (1.8-2.4) 08/14/20 04:57 08/14/20 Calcium Level 8.1 mg/dl (8.5-10.1) L 08/14/20 04:57 08/14/20 Microbiology 08/11/20 21:45 Urine Culture - Preliminary Urine,Clean Catch Klebsiella pneumoniae ESBL 08/11/20 22:45 Gram Stain - Final Sputum,Vent Suction Sputum Culture - Preliminary Pseudomonas aeruginosa 08/11/20 16:12 Aerobic Blood Culture - Preliminary Blood No growth in Aerobic bottle after 48 hours. Anaerobic Blood Culture - Preliminary No growth in Anaerobic bottle after 48 hours. 08/11/20 16:09 Aerobic Blood Culture - Preliminary Blood No growth in Aerobic bottle after 48 hours. Anaerobic Blood Culture - Final Diagnostic Findings (Past 24 Hours) Chest X-Ray 08/13/20 07:00 XR chest 1V portable HISTORY: Respiratory failure. Follow-up. COMPARISON: Chest 08/12/2020. FINDINGS: Endotracheal tube terminates 3.6 cm and the markel. The nasogastric tube terminates below the diaphragm. The tip is not included on this study. No pneumothorax. Small bilateral pleural effusions and bilateral perihilar airspace opacities persist. The heart remains mildly enlarged. IMPRESSION: 1. Stable lines and tubes. 2. Cardiomegaly and small bilateral pleural effusions, unchanged. 2. Bilateral airspace opacities persist. ACT 112: Negative or not required by law. Electronically signed by: Rah Lutz M.D. 08/13/2020 8:05 AM I & O Totals 24 Hours 08/13/20 08/14/20 08/15/20 06:59 06:59 06:59 Intake Total 902.743 / 434.816 3360.567 / 1020.567 60 / 60 Output Total 1038 / 1038 3235 / 3235 Balance -135.257 / -135.257 -2214.433 / -2214.433 60 / 60 Cumulative 08/11/20 15:07 thru 08/14/20 07:14 Intake Total 2247.154 Output Total 4673 Balance -2425.846 RT Ventilator Mngmt (Last Documented) Ventilator Ordered Settings Ventilator Support Mode Assist Control 08/13/20 08:00 Respiratory Rate 13 08/14/20 06:30 Ventilator Tidal Volume 400 08/13/20 08:00 Setting Minute Ventilation 6.4 08/13/20 06:54 Positive End Expiratory 12 08/13/20 08:00 Pressure Fraction of Inspired Oxygen 40 08/14/20 02:35 Peak Inspiratory Flow 50 08/13/20 06:54 Machine Comment SpO2 96% on current ventilator 08/12/20 20:57 settings. Weaned per vent protocol. Ventilator - PT Measurements Respiratory Rate 13 Exhaled Tidal Volume 400 Minute Ventilation 6.4 Peak Inspiratory Airway 28 Pressure Mean Airway Pressure 17 Plateau Pressure 22 Respiratory Cycle Inspiratory: 1:4.9 Expiratory Ratio Inspiratory Phase Time 0.64 End-Tidal CO2 50 Static Lung Compliance 40.00 Dynamic Lung Compliance 25.00 Normal Static Lung Compliance 46.00 Patient Measurements Comment Decreased rate to 16 post ABG. Coding Level of Care Code 78147 Subseq Hosp Care Lvl 3 Diagnoses Admitted to intensive care unit Z78.9 Encephalopathy acute G93.40 Respiratory acidosis E87.2 Acute on chronic respiratory failure with hypoxia and hypercapnia J96.21; J96.22 Pneumonia J18.1 Laterality: bilateral Lung location: lower lobe of lung Pneumonia type: due to unspecified organism Morbid obesity E66.01 Time Spent (min) 40 (1) Pneumonia Laterality: bilateral Lung location: lower lobe of lung Pneumonia type: due to unspecified organism Qualified Code(s): J18.1 - Lobar pneumonia, unspecified organism
[2020-08-14] MEDS ORDERED: ACETAMINOPHEN 1,000 MG/100 ML VIAL IV STA (08:34)
[2020-08-14] MEDS: ERTAPENEM SODIUM 1,000 MG in SODIUM CHLORIDE 0.9% 50 ML IV SCH (10:38)
[2020-08-14] MEDS ORDERED: MEROPENEM CONSULT ACITVE PRN (11:32)
[2020-08-14] MEDS ORDERED: ONDANSETRON INJ 2 MG/ML 2 ML VIAL IV PRN (13:58)
[2020-08-14] MEDS: MEROPENEM 500 MG in SYRINGE 0 ML IV SCH ×2 (14:06→21:30)
--- NOTE | 2020-08-14 14:30 | Hospitalist Progress Note ---
Date of Service August 14, 2020 Assessment & Plan (1) Acute on chronic respiratory failure with hypoxia and hypercapnia: (2) Morbid obesity: (3) Respiratory acidosis: (4) Metabolic encephalopathy: Pt is a 69 y/o F w/ hx of DM type 2 on insulin, morbid obesity (BMI 54), obesity hypoventilation syndrome, COPD, JOSE, hypothyroidism, chronic diastolic CHF, prior CVA, HTN, HLD, cirrhosis, splenomegaly, chronic pain, chronic hypoxic hypercapnic resp. failure (4L NC at baseline during the day, bipap at night) who presents d/t hypoxia for several days. In ED worsening mental status (likely d/t hypercarbia, hypoxia) and required intubation. +hemoptysis Pneumonia VBG ph 7.1, pCO2 [address] PE - negative for PE, positive b/l pleural effusions, poss. PNA COVID 19 negative and WBC wnl Procalcitonin -negative on admission, then elevated at 1.59 Sputum culture grew pseudomonas Blood culture no growth S/P extubated on 08/13 Currently on Meropenem, will complete 10 days course of abx Will continue Trilogy as night and prn Clinically improve significantly Will Transfer out of the ICU Hx of chronic distolic CHF - on PO lasix at home - pro BNP wnl - Continue Lasix 40mg IV daily - Continue Acetazolomide BID x 4 doses - cont. to closely monitor I/Os, electrolytes - troponin negative Further management per ICU Hypothyroidism - cont. levothyroxine DM type 2 - on insulin - management per ICU/ glycemic pharmacy ESBL UTI - UA positive for bacteria, nitrite - unclear if any urinary symptoms - urine cultx - pending -Continue meropenem q6h IV - further management per ICU Chronic Thrombocytopenia - Platelet 86 - No signs of active bleed bleeding - cont to closely monitor plt count DVT ppx - SCDs CODE: FULL Disposition Will transfer out of the ICU Admission and Anticipated Discharge Date Admission Date: August 11, 2020 Subjective Pt was seen and examined for follow for SOB Sitting in the recliner chair with no distress S/P extubation yesterday Pt said that she is having pain in her butt because she has been sitting for over 90 minutes She said that her breathing is muh better now She said that she does not think her trilogy machine at home is functioning properly Pt said that her breathing feels a lot better Denies any chest pain, palpitation, dizziness and SOB Review of Systems Review of Systems: All systems reviewed & are unremarkable except as noted in Subjective Physical Exam Physical Exam: General- No acute distress Head- atraumatic Eyes- PERRL, EOMI, ENT- oropharynx clear Neck- supple, no JVD Lungs- diminished BS Heart- regular rhythm; no murmur Abdomen- normal bowel sounds, soft, nontender Extremities- no calf tenderness Neuro- alert, oriented x 3; PERRL, EOMI; no facial palsy; no dysarthria Skin- warm & dry Results & Data Results & Data ([facility]) Vital Signs (Past 12 Hours) Vital Signs Temp Pulse Resp BP Pulse Ox 08/14/20 11:01 67 23 92 08/14/20 11:00 65 23 158/62 H 92 08/14/20 10:30 37.2 C 67 27 H 131/60 92 08/14/20 10:00 37.0 C 68 29 H 138/47 L 91 08/14/20 09:30 37.0 C 71 26 H 141/42 H 93 08/14/20 09:00 37.0 C 79 28 H 152/48 H 94 08/14/20 08:30 37.0 C 78 22 147/45 H 92 08/14/20 08:00 36.9 C 81 20 143/47 H 92 08/14/20 07:31 36.6 C 74 15 137/51 L 90 08/14/20 07:00 36.8 C 72 24 140/54 L 92 08/14/20 06:30 36.8 C 73 13 144/60 H 90 08/14/20 06:29 36.8 C 70 21 144/54 H 89 L 08/14/20 06:01 36.8 C 74 20 157/56 H 88 L 08/14/20 05:47 36.8 C 78 22 115/71 88 L 08/14/20 05:05 36.7 C 74 23 159/56 H 93 08/14/20 04:31 36.7 C 59 L 30 H 177/61 H 94 08/14/20 04:02 36.7 C 65 16 93 08/14/20 04:01 36.7 C 59 L 30 H 174/66 H 94 08/14/20 03:31 36.7 C 64 33 H 169/60 H 94 08/14/20 03:01 36.8 C 63 30 H 180/62 H 94 08/14/20 02:35 63 25 H 94 08/14/20 02:31 36.8 C 71 27 H 179/60 H 94
[2020-08-14] MEDS ORDERED: INSULIN HUMAN NPH SC SCH (17:00)
[2020-08-14] MEDS: LIDOCAINE 5% 1 PATCH TD SCH (20:00)
[2020-08-14] MEDS: ACETAMINOPHEN 325 MG TAB PO PRN (20:06)
[2020-08-14] MEDS: traMADol HCL 50 MG TABLET PO PRN (22:03)
[2020-08-15] MEDS: MEROPENEM 500 MG in SYRINGE 0 ML IV SCH ×4 (02:08→20:43)
[2020-08-15] MEDS ORDERED: Nursing to Pharmacy Communication SCH (05:45)
[2020-08-15] MEDS: traMADol HCL 50 MG TABLET PO PRN ×4 (06:01→18:32)
[2020-08-15] MEDS: LEVOTHYROXINE SODIUM 100 MCG TABLET PO SCH (06:02)
[2020-08-15] MEDS: HEPARIN SOD 5,000 UNIT/0.5 ML VIAL SQ SCH ×3 (06:03→21:00)
[2020-08-15 08:36] LABS: Hematocrit (blood only) 37.2 % (37-47); Hemoglobin 10.8 g/dL (12.0-16.0); Mean Corpuscular Hemoglobin 27.4 pg (25-34); Mean Corpuscular Volume 94.4 fL (80-100); RDW Coefficient of Variation 17.9 % (11.5-14.5); RDW Standard Deviation 62.2 fL (36.4-46.3); Red Blood Count 3.94 M/uL (4.2-5.4); White Blood Count 7.21 K/uL (4.8-10.8)
[2020-08-15 08:51] LABS: Mean Platelet Volume 11.2 fL (7.4-10.4); Platelet Count 95 K/uL (130-400)
[2020-08-15] MEDS: FUROSEMIDE 40 MG in SYRINGE 0 ML IV SCH (09:26)
[2020-08-15] MEDS: METOPROLOL TARTRATE 25 MG TAB PO SCH ×2 (09:26→21:05)
[2020-08-15] MEDS: ACETAMINOPHEN 325 MG TAB PO PRN ×2 (09:30→17:30)
[2020-08-15] MEDS: INSULIN ASPART 100 UNITS/ML 3 ML PEN SC SCH ×4 (09:32→20:48)
[2020-08-15 10:12] LABS: Calcium 8.1 mg/dl (8.5-10.1); Creatinine Clr Calc Pharmacy 135.2 ml/min; Est GFR (African American) 106.5 ml/min; Est GFR (Non-African American) 91.9 ml/min; Potassium 3.3 mmol/L (3.5-5.1)
[2020-08-15] MEDS: INSULIN HUMAN NPH SC SCH ×2 (10:40→17:31)
--- NOTE | 2020-08-15 12:32 | Pulmonology Progress Note ---
Date of Service August 15, 2020 Assessment & Plan (1) Admitted to intensive care unit: Impression: 69-year-old female with morbid obesity and obesity hypoventilation syndrome admitted with acute on chronic hypercarbic respiratory failure and metabolic encephalopathy requiring intubation mechanical ventilation in the emergency room. She has been weaned from the mechanical ventilator and extubated. She was transferred out of the ICU 08/14/2020 and continues to use noninvasive positive pressure ventilation at night. She is back to her baseline oxygen saturation. She did have Pseudomonas in her sputum. Recommendations: 1. Acute on chronic hypoxemic and hypercarbic respiratory failure: Would continue noninvasive positive pressure ventilation at night. The patient has a home trilogy unit but apparently her and the patient were concerned a bout the recent recall. The risk and benefits of continued use of the device in the light of the recall would favor continued use. This was advised to the patient. I think her risk of complications from the filter are quite low and in her case the trilogy device is lifesaving. She should continue to use it on a nightly basis and I would recommend that it be used in our facility in order to document compliance and assist in getting the patient's dismissed home. 2. Pseudomonas pneumonia: Continue antibiotics in the form of meropenem. Anticipate she will need a total of 10 days therapy given the Pseudomonas in her sputum. Follow-up chest x-ray in 2 to 4 weeks is recommended. Patient appears to be approaching her baseline status. Disposition per primary service. As long as she can complete the course of antibiotics, she can leave the hospital. Pulmonary will sign off at this point time. Feel free to contact us if we can be of additional assistance. (2) Encephalopathy acute: (3) Respiratory acidosis: (4) Acute on chronic respiratory failure with hypoxia and hypercapnia: (5) Pneumonia: Laterality: bilateral Lung location: lower lobe of lung Pneumonia type: due to unspecified organism Qualified Code(s): J18.1 - Lobar pneumonia, unspecified organism (6) Morbid obesity: Admission and Anticipated Discharge Date Admission Date: August 11, 2020 Subjective Patient seen and examined. She reports she is doing well. Her breathing is at baseline. She used our CPAP unit rather than her trilogy as she was concerned about the recall. She is not experiencing any increasing shortness of breath, cough, or sputum production. Review of Systems Review of Systems: All systems reviewed & are unremarkable except as noted in HPI & below Physical Exam Constitutional: + morbidly obese and + mechanically ventilated Neck: trachea midline, no thyromegaly Respiratory: no respiratory distress Auscultation: + crackles and + rales; no wheezes Cardiovascular: RRR, no murmur, no edema Gastrointestinal (Abdomen): normal bowel sounds, soft, nontender, no hepatosplenomegaly Musculoskeletal: Extremities: extremities normal to inspection Skin: no rashes, warm and dry Lymphatic: no cervical lymphadenopathy Results & Data Results & Data ([facility]) Vital Signs (Past 12 Hours) Vital Signs Temp Pulse Pulse Resp BP Pulse Ox 08/15/20 12:19 36.9 C 76 22 142/64 H 91 08/15/20 08:25 36.9 C 71 20 156/67 H 90 08/15/20 03:43 69 22 90 08/15/20 03:19 69 20 141/54 H 90 Laboratory Results 08/15/20 08:02 08/15/20 08:02 Diagnostic Findings No new imaging PG Care Time/CCT Total # of Minutes Spent Total Time Spent with Patient: Total time spent is greater than 50% in coordination of care (as documented) at patient's floor/unit and/or counseling patient: Coding Level of Care Code 67298 Subseq Hosp Care Lvl 2 Diagnoses Admitted to intensive care unit Z78.9 Encephalopathy acute G93.40 Respiratory acidosis E87.2 Acute on chronic respiratory failure with hypoxia and hypercapnia J96.21; J96.22 Pneumonia J18.1 Laterality: bilateral Lung location: lower lobe of lung Pneumonia type: due to unspecified organism Morbid obesity E66.01
--- NOTE | 2020-08-15 14:02 | Pharmacy Report ---
Pharmacy Glycemic Short Note 2 - Date of Service August 15, 2020 - Glycemic Short BSG Results (Last 24 hours): 08/14/20 08/15/20 08/15/20 16:20 08:02 08:16 Glucose 127 H POC Glucose 115 H 131 H 08/15/20 11:38 Glucose POC Glucose 160 H OUTPATIENT ANTIDIABETIC REGIMEN: * Tresiba (insulin degludec) 67 units w/ lunch + 67 units dinner * Regular insulin 70 w/ breakfast + 30 w/ lunch + 40 w/ dinner * Metformin ER 2000mg daily? * Jardiance 25mg daily? * A1c = 5.4% 07/09/19 ASSESSMENT: 08/15: * Patient received 52 units of insulin yesterday, 10 of which were basal * Fasting and post prandial BSGs remain adequate however trending up somewhat. Will initiate a low dose twice daily NPH regimen. * Patient is tolerating a diet 08/13: * Patient very well controlled today after a total of 31 units of insulin yesterday, 20 of which were NPH. * Patient was extubated this morning and has remained NPO. Given her BSGs today thus far (87-44-147-109 mg/dL) and uncertainty of diet order for today, will hold off on ordering any further NPH at this time. I did discuss with the ICU team to communicate with pharmacy if she ordered a diet this evening and is able to eat so that insulin orders may be adjusted if needed . 08/12 * Patient previously known to the glycemic service, now admitted to the ICU for respiratory failure, requiring intubation. Typically BID-TID NPH plus novolog is utilized due to lantus/levemir allergy. BSGs elevated yesterday after a one time dose of IV steroids. Trickle tube feeds were initiated mid day. Discussed with ICU team and will plan on q4 novolog to cover trickle feeds and as correctional insulin in addition to a reduced dose of NPH this evening. Will proceed cautiously as BSGs reasonable thus far today and minimal PO intake. * Will consider transition to IV insulin infusion if current regimen is not adequate PLAN FOR INPATIENT GLYCEMIC CONTROL: * Hold outpatient oral diabetes medications * Basal insulin * NPH- 10 or 15 units BIDM (See MAR for details) * Bolus insulin * NovoLog per scale ACHS or q4hrs while NPO * Goal Range: Low 110 mg/dL - High 140 mg/dL * Correction Factor: 10 mg/dL/unit * Nutritional / Prandial insulin per carb ratio of 1 unit per 3 grams CHO consumed
--- NOTE | 2020-08-15 18:42 | Hospitalist Progress Note ---
Date of Service August 15, 2020 Assessment & Plan (1) Acute on chronic respiratory failure with hypoxia and hypercapnia: (2) Morbid obesity: (3) Respiratory acidosis: (4) Metabolic encephalopathy: Pt is a 69 y/o F w/ hx of DM type 2 on insulin, morbid obesity (BMI 54), obesity hypoventilation syndrome, COPD, JOSE, hypothyroidism, chronic diastolic CHF, prior CVA, HTN, HLD, cirrhosis, splenomegaly, chronic pain, chronic hypoxic hypercapnic resp. failure (4L NC at baseline during the day, bipap at night) who presents d/t hypoxia for several days. In ED worsening mental status (likely d/t hypercarbia, hypoxia) and required intubation. +hemoptysis Pneumonia VBG ph 7.1, pCO2 [address] PE - negative for PE, positive b/l pleural effusions, poss. PNA COVID 19 negative and WBC wnl Procalcitonin -negative on admission, then elevated at 1.59 Sputum culture grew pseudomonas Blood culture no growth S/P extubated on 08/13 Currently on Meropenem, will complete 10 days course of abx Will arrange for outpatient IV antibiotic infusion We will get an ultrasound-guided peripheral tomorrow Will continue Trilogy as night and prn Clinically improve significantly Hx of chronic distolic CHF - on PO lasix at home - pro BNP wnl - Continue Lasix 40mg IV daily - Continue Acetazolomide BID x 4 doses - cont. to closely monitor I/Os, electrolytes - troponin negative Hypothyroidism - cont. levothyroxine DM type 2 - on insulin - management per ICU/ glycemic pharmacy ESBL UTI - UA positive for bacteria, nitrite - unclear if any urinary symptoms - urine cultx -ESBL -Continue meropenem q6h IV Chronic Thrombocytopenia - Platelet 95 - No signs of active bleed bleeding - cont to closely monitor plt count DVT ppx - SCDs CODE: FULL Disposition We will discharge once medically stable Admission and Anticipated Discharge Date Admission Date: August 11, 2020 Subjective Patient was seen and examined for follow-up of respiratory failure Lying in bed with no acute distress Patient said that her breathing feels much better and she looks more awake today She is very anxious to go home She would like to get arranged for outpatient antibiotic to continue the course at home Denies any chest pain, palpitation, dizziness, fever Review of Systems Review of Systems: All systems reviewed & are unremarkable except as noted in Subjective Physical Exam Physical Exam: General- No acute distress Head- atraumatic Eyes- PERRL, EOMI, ENT- oropharynx clear Neck- supple, no JVD Lungs- diminished BS Heart- regular rhythm; no murmur Abdomen- normal bowel sounds, soft, nontender Extremities- no calf tenderness Neuro- alert, oriented x 3; PERRL, EOMI; no facial palsy; no dysarthria Skin- warm & dry Results & Data Results & Data ([facility]) Vital Signs (Past 12 Hours) Vital Signs Temp Pulse Pulse Resp BP Pulse Ox 08/15/20 17:22 75 08/15/20 12:19 36.9 C 76 22 142/64 H 91 08/15/20 09:00 75 08/15/20 08:25 36.9 C 71 20 156/67 H 90
[2020-08-15] MEDS: LIDOCAINE 5% 1 PATCH TD SCH ×2 (21:01→23:31)
[2020-08-16] MEDS: MEROPENEM 500 MG in SYRINGE 0 ML IV SCH ×3 (04:14→13:49)
[2020-08-16] MEDS: HEPARIN SOD 5,000 UNIT/0.5 ML VIAL SQ SCH ×3 (06:29→21:05)
[2020-08-16] MEDS: LEVOTHYROXINE SODIUM 100 MCG TABLET PO SCH (06:30)
[2020-08-16] MEDS: METOPROLOL TARTRATE 25 MG TAB PO SCH ×2 (08:16→21:04)
[2020-08-16] MEDS: INSULIN ASPART 100 UNITS/ML 3 ML PEN SC SCH ×4 (09:40→20:57)
[2020-08-16] MEDS: INSULIN HUMAN NPH SC SCH ×2 (09:41→17:49)
[2020-08-16] MEDS: FUROSEMIDE 40 MG in SYRINGE 0 ML IV SCH ×2 (09:44→11:11)
[2020-08-16 10:51] LABS: BUN Creatinine Ratio 25.3 (10-20); Calcium 8.6 mg/dl (8.5-10.1); Creatinine Clr Calc Pharmacy 113.2 ml/min; Est GFR (African American) 98.3 ml/min; Est GFR (Non-African American) 84.9 ml/min; Potassium 3.4 mmol/L (3.5-5.1)
[2020-08-16] MEDS: traMADol HCL 50 MG TABLET PO PRN ×2 (12:19→20:55)
[2020-08-16] MEDS: ACETAMINOPHEN 325 MG TAB PO PRN (13:44)
--- NOTE | 2020-08-16 19:47 | Hospitalist Progress Note ---
Date of Service August 16, 2020 Assessment & Plan (1) Acute on chronic respiratory failure with hypoxia and hypercapnia: (2) Morbid obesity: (3) Respiratory acidosis: (4) Metabolic encephalopathy: Pt is a 69 y/o F w/ hx of DM type 2 on insulin, morbid obesity (BMI 54), obesity hypoventilation syndrome, COPD, JOSE, hypothyroidism, chronic diastolic CHF, prior CVA, HTN, HLD, cirrhosis, splenomegaly, chronic pain, chronic hypoxic hypercapnic resp. failure (4L NC at baseline during the day, bipap at night) who presents d/t hypoxia for several days. In ED worsening mental status (likely d/t hypercarbia, hypoxia) and required intubation. +hemoptysis Pneumonia VBG ph 7.1, pCO2 [address] PE - negative for PE, positive b/l pleural effusions, poss. PNA COVID 19 negative and WBC wnl Procalcitonin -negative on admission, then elevated at 1.59 Sputum culture grew pseudomonas Blood culture no growth S/P extubated on 08/13 Currently on Meropenem, will complete 10 days course of abx Will arrange for outpatient IV antibiotic infusion We will get an ultrasound-guided peripheral Spoke to pharmacy about to change the Meropenem to q8h to facilitate infusion compliance Meropenem change to 1g q8H Continue Trilogy as night and prn Clinically improve significantly Hx of chronic distolic CHF - on PO lasix at home - pro BNP wnl - Continue Lasix 40mg IV daily - Continue Acetazolomide BID x 4 doses - cont. to closely monitor I/Os, electrolytes - troponin negative Hypokalemia K replaced Monitor BMP while on IV Lasix Hypothyroidism - cont. levothyroxine DM type 2 - on insulin - management per ICU/ glycemic pharmacy ESBL UTI - UA positive for bacteria, nitrite - unclear if any urinary symptoms - urine cultx -ESBL -Continue meropenem IV Chronic Thrombocytopenia - Platelet 95 - No signs of active bleed bleeding - cont to closely monitor plt count DVT ppx - SCDs CODE: FULL Disposition We will discharge once medically stable Admission and Anticipated Discharge Date Admission Date: August 11, 2020 Subjective Patient was seen and examined for follow-up of respiratory failure Lying in bed with no acute distress Pt said that when she is anxious her breathing getes worst She is very anxious to go home She is complaints of pain in her buttock due to being lying in bed She said that at home her mattress is thicker than the one in the hospital Denies any chest pain, palpitation, dizziness, fever Review of Systems Review of Systems: All systems reviewed & are unremarkable except as noted in Subjective Physical Exam Physical Exam: General- No acute distress Head- atraumatic Eyes- PERRL, EOMI, ENT- oropharynx clear Neck- supple, no JVD Lungs- diminished BS Heart- regular rhythm; no murmur Abdomen- normal bowel sounds, soft, nontender Extremities- no calf tenderness Neuro- alert, oriented x 3; PERRL, EOMI; no facial palsy; no dysarthria Skin- warm & dry Results & Data Results & Data ([facility]) Vital Signs (Past 12 Hours) Vital Signs Temp Pulse Pulse Resp BP BP Pulse Ox 08/16/20 19:00 36.9 C 91 H 18 149/67 H 90 08/16/20 15:53 36.6 C 86 20 160/65 H 90 08/16/20 15:16 72 08/16/20 15:07 85 22 91 08/16/20 14:13 72 08/16/20 11:10 36.6 C 61 22 131/64 90 08/16/20 07:53 36.7 C 80 20 138/63 92
[2020-08-16] MEDS: LIDOCAINE 5% 1 PATCH TD SCH (21:03)
[2020-08-16] MEDS: MEROPENEM 1,000 MG in SYRINGE 0 ML IV SCH (22:26)
[2020-08-17] MEDS: MEROPENEM 1,000 MG in SYRINGE 0 ML IV SCH ×3 (06:03→21:44)
[2020-08-17] MEDS: HEPARIN SOD 5,000 UNIT/0.5 ML VIAL SQ SCH ×3 (06:04→21:44)
[2020-08-17] MEDS: LEVOTHYROXINE SODIUM 100 MCG TABLET PO SCH (06:04)
[2020-08-17] MEDS ORDERED: POTASSIUM CHLORIDE CRTAB 20 MEQ TABCR PO STA (07:42)
[2020-08-17] MEDS: traMADol HCL 50 MG TABLET PO PRN ×2 (10:34→21:44)
[2020-08-17] MEDS: INSULIN HUMAN NPH SC SCH ×2 (10:38→17:10)
[2020-08-17] MEDS: INSULIN ASPART 100 UNITS/ML 3 ML PEN SC SCH ×4 (10:38→20:17)
[2020-08-17] MEDS: FUROSEMIDE 40 MG in SYRINGE 0 ML IV SCH (10:39)
[2020-08-17] MEDS: METOPROLOL TARTRATE 25 MG TAB PO SCH ×2 (10:39→20:11)
[2020-08-17 11:00] LABS: BUN Creatinine Ratio 32.8 (10-20); Calcium 8.5 mg/dl (8.5-10.1); Creatinine Clr Calc Pharmacy 155.9 ml/min; Est GFR (African American) 112.2 ml/min; Est GFR (Non-African American) 96.8 ml/min; Potassium 3.6 mmol/L (3.5-5.1)
--- NOTE | 2020-08-17 11:52 | Pharmacy Report ---
Pharmacy Glycemic Short Note 2 - Date of Service August 17, 2020 - Glycemic Short BSG Results (Last 24 hours): 08/16/20 08/16/20 08/17/20 16:32 20:08 07:53 Glucose POC Glucose 143 H 146 H 211 H 08/17/20 10:24 Glucose 223 H POC Glucose OUTPATIENT ANTIDIABETIC REGIMEN: * Tresiba (insulin degludec) 67 units w/ lunch + 67 units dinner * Regular insulin 70 w/ breakfast + 30 w/ lunch + 40 w/ dinner * Metformin ER 2000mg daily? * Jardiance 25mg daily? * A1c = 5.4% 07/09/19 ASSESSMENT: 08/17: * Sangeetha received a total of 72 units of insulin yesterday * 25 units basal + 47 units bolus * BSGs were acceptable: [phone] mg/dL * Fasting BSG elevated this AM at 211 mg/dL * Increased NPH with meals * Will trend BSGs throughout today and adjust Novolog, if necessary PLAN FOR INPATIENT GLYCEMIC CONTROL: * Hold outpatient oral diabetes medications * Basal insulin * NPH 20 or 25 units SC BIDM (See MAR for details) * Bolus insulin * NovoLog per scale ACHS or q4hrs while NPO * Goal Range: Low 110 mg/dL - High 140 mg/dL * Correction Factor: 10 mg/dL/unit * Nutritional / Prandial insulin per carb ratio of 1 unit per 3 grams CHO consumed PLAN FOR DISCHARGE: * HbA1c was 5.5%. Recommend continuing current outpatient regimen upon patient discharge as long as she is not experiencing any hypoglycemia.
[2020-08-17] MEDS: ACETAMINOPHEN 325 MG TAB PO PRN ×2 (14:13→20:01)
--- NOTE | 2020-08-17 18:43 | Hospitalist Progress Note ---
Date of Service August 17, 2020 Assessment & Plan (1) Acute on chronic respiratory failure with hypoxia and hypercapnia: (2) Morbid obesity: (3) Respiratory acidosis: (4) Metabolic encephalopathy: Pt is a 69 y/o F w/ hx of DM type 2 on insulin, morbid obesity (BMI 54), obesity hypoventilation syndrome, COPD, JOSE, hypothyroidism, chronic diastolic CHF, prior CVA, HTN, HLD, cirrhosis, splenomegaly, chronic pain, chronic hypoxic hypercapnic resp. failure (4L NC at baseline during the day, bipap at night) who presents d/t hypoxia for several days. In ED worsening mental status (likely d/t hypercarbia, hypoxia) and required intubation. +hemoptysis Pneumonia VBG ph 7.1, pCO2 [address] PE - negative for PE, positive b/l pleural effusions, poss. PNA COVID 19 negative and WBC wnl Procalcitonin -negative on admission, then elevated at 1.59 Sputum culture grew pseudomonas Blood culture no growth S/P extubated on 08/13 Currently on Meropenem, will complete 10 days course of abx Will arrange for outpatient IV antibiotic infusion We will get an ultrasound-guided peripheral Spoke to pharmacy about to change the Meropenem to q8h to facilitate infusion compliance Meropenem change to 1g q8H Continue Trilogy as night and prn Continue flutter valve Clinically improve significantly Hx of chronic distolic CHF - on PO lasix at home - pro BNP wnl - Continue Lasix 40mg IV daily, will transition to p.o. Lasix - Continue Acetazolomide BID x 4 doses - cont. to closely monitor I/Os, electrolytes - troponin negative -Check BMP in 1 week to monitor electrolytes Hypokalemia K 3.6 today Monitor BMP while on IV Lasix Hypothyroidism - cont. levothyroxine DM type 2 - on insulin -Pharmacy on board for glycemic management ESBL UTI - UA positive for bacteria, nitrite - unclear if any urinary symptoms - urine cultx -ESBL -Continue meropenem IV Chronic Thrombocytopenia - Platelet 95 - No signs of active bleed bleeding - cont to closely monitor plt count Chronic pain Pt is taking alot of med that can altered her breathing Lyrica decreased to 100mg TID and nortriptyline was discontinued DVT ppx - SCDs CODE: FULL Disposition We will discharge home tomorrow Admission and Anticipated Discharge Date Admission Date: August 11, 2020 Subjective Patient was seen and examined for follow-up of respiratory failure Lying in bed with no acute distress Pt said that her breathing feels better Continue to have pain in her buttock due to being lying in bed Denies any chest pain, palpitation, dizziness, fever Review of Systems Review of Systems: All systems reviewed & are unremarkable except as noted in Subjective Physical Exam Physical Exam: General- No acute distress Head- atraumatic Eyes- PERRL, EOMI, ENT- oropharynx clear Neck- supple, no JVD Lungs- diminished BS Heart- regular rhythm; no murmur Abdomen- normal bowel sounds, soft, nontender Extremities- no calf tenderness Neuro- alert, oriented x 3; PERRL, EOMI; no facial palsy; no dysarthria Skin- warm & dry Results & Data Results & Data ([facility]) Vital Signs (Past 12 Hours) Vital Signs Temp Pulse Pulse Resp BP Pulse Ox 08/17/20 15:15 62 08/17/20 12:00 36.6 C 71 20 145/68 H 93 08/17/20 08:00 79 08/17/20 07:30 36.7 C 83 18 155/66 H 91
[2020-08-17] MEDS: LIDOCAINE 5% 1 PATCH TD SCH (20:05)
[2020-08-18] MEDS ORDERED: POTASSIUM CHLORIDE 10 MEQ TABCR PO STA (01:12)
[2020-08-18] MEDS ORDERED: FUROSEMIDE 20 MG in SYRINGE 0 ML IV ONE (01:30)
[2020-08-18] MEDS: traMADol HCL 50 MG TABLET PO PRN ×2 (02:16→06:15)
[2020-08-18] MEDS: MEROPENEM 1,000 MG in SYRINGE 0 ML IV SCH (05:39)
[2020-08-18] MEDS: HEPARIN SOD 5,000 UNIT/0.5 ML VIAL SQ SCH (05:39)
[2020-08-18] MEDS: LEVOTHYROXINE SODIUM 100 MCG TABLET PO SCH (05:40)
[2020-08-18] MEDS: INSULIN ASPART 100 UNITS/ML 3 ML PEN SC SCH (08:21)
[2020-08-18 08:23] LABS: Hematocrit (blood only) 37.5 % (37-47); Hemoglobin 10.8 g/dL (12.0-16.0); Mean Corpuscular Hemoglobin 27.2 pg (25-34); Mean Corpuscular Hgb Conc 28.8 g/dL (32-36); Mean Corpuscular Volume 94.5 fL (80-100); Platelet Count 117 K/uL (130-400); RDW Coefficient of Variation 17.2 % (11.5-14.5); RDW Standard Deviation 59.9 fL (36.4-46.3); Red Blood Count 3.97 M/uL (4.2-5.4); White Blood Count 5.95 K/uL (4.8-10.8)
[2020-08-18] MEDS: INSULIN HUMAN NPH SC SCH (08:23)
[2020-08-18] MEDS: FUROSEMIDE 40 MG in SYRINGE 0 ML IV SCH (08:24)
[2020-08-18] MEDS: METOPROLOL TARTRATE 25 MG TAB PO SCH (08:24)
--- NOTE | 2020-08-18 08:36 | Discharge Summary ---
Date of Service August 18, 2020 Admission HPI Per Admitting Provider Pt is a 69 y/o F w/ hx of DM type 2 on insulin, morbid obesity (BMI 54), obesity hypoventilation syndrome, COPD, JOSE, hypothyroidism, chronic diastolic CHF, prior CVA, HTN, HLD, cirrhosis, splenomegaly, chronic pain, chronic hypoxic hypercapnic resp. failure (4L NC at baseline during the day, bipap at night) who presents d/t hypoxia for several days. Pt's at the bedside provides most of the history, and medical chart reviewed. Per , "they could not get her oxygen up". Pt uses suppl. O2 during the day and BiPAP at night. For several days pt has been hypoxic, per home nursing sats in 70-80s%. She was asked multiple times to present to the ED, but she refused. Finally she was persuaded today. reports pt has been having cough with sputum production and streaks of blood when coughing. Denies that pt had any fevers. Also denies that pt complained of any abdominal pain, nausea, diarrhea. He is not aware if she had increased edema/ fluid retention however difficult to asses d/t body habitus. In the ED pt on BiPAP, voice very soft when answering my questions, could not say if pt was answering appropriately. D-Dimer positive in ED, CT PE negative for PE however noted b/l pleural effus ions and poss. consolidation/ atypical pna. In the ED pt is in hypoxic and hypercapnic resp. failure, declining while in ED, mental status worsening, eventually requiring intubation and admission to ICU. Pt was asked by home nursing and staff in the ED about code status, I also confirmed with the - Full Code. Ordered meropenem in ED, pt has multiple Abx allergy. Discussed w/ sock drier, symptoms likely d/t pulmonary edema rather than pna. IV lasix ordered. Admission Exam Per Admitting Provider Constitutional: + acute distress (hypoxic on bipap), + morbidly obese and + altered mental status Eyes: PERRL, conjunctivae normal, anicteric sclerae ENMT: external ear and nose normal, oropharynx normal Neck: + thick neck Respiratory: normal respiratory effort (however pt on bipap and w/ worsening mental status); no labored breathing Cardiovascular: RRR, no murmur, no edema Chest (Breasts): Chest: normal inspection of chest Gastrointestinal (Abdomen): normal bowel sounds Percussion/Palpation: abdomen soft; abdomen nontender, no guarding and abdomen not rigid + obese abdomen Head/Neck/Chest: normocephalic, head atraumatic and neck supple Skin: no rashes, warm and dry Neurologic: moves all extremities and awake (able to answer questions but drowsy and not clear if answering appropriatel) Psychiatric: Orientation: alert (not able to check orientation questions, pt drowsy) Eye Contact: good eye contact Principal Diagnosis (1) Acute on chronic respiratory failure with hypoxia and hypercapnia: (2) Morbid obesity: (3) Respiratory acidosis: (4) Metabolic encephalopathy: (6) Hx of chronic diastolic heart failure (7) Hypokalemia Discharge Exam General- No acute distress Head- atraumatic Eyes- PERRL, EOMI, ENT- oropharynx clear Neck- supple, no JVD Lungs- diminished BS Heart- regular rhythm; no murmur Abdomen- normal bowel sounds, soft, nontender Extremities- no calf tenderness Neuro- alert, oriented x 3; PERRL, EOMI; no facial palsy; no dysarthria Skin- warm & dry Discharge Data Allergies Allergy/AdvReac Type Severity Reaction Status Date / Time fluoxetine Allergy Severe ANAPHYLAXIS Verified 07/10/19 00:35 Insulins Allergy Severe LANTUS/LEVEMIR- Verified 07/10/19 00:35 HIVES/THROAT SWELLING moxifloxacin Allergy Severe HIVES Verified 07/10/19 00:35 nitrofurantoin Allergy Severe HIVES Verified 07/10/19 00:35 paroxetine Allergy Severe HIVES Verified 07/10/19 00:35 Quinolones Allergy Severe AVELOX & Verified 07/10/19 00:35 LEVAQUIN-HIVES amitriptyline Allergy Intermediate Sweats and Verified 07/10/19 00:35 itching buspirone Allergy Intermediate HIVES Verified 07/10/19 00:35 cephalexin Allergy Intermediate Hives Verified 07/10/19 00:35 citalopram Allergy Intermediate HIVES-RASH Verified 07/10/19 00:35 escitalopram Allergy Intermediate HIVES-RASH Verified 07/10/19 00:35 levofloxacin Allergy Intermediate Hives Verified 07/10/19 00:35 methadone Allergy Intermediate HIVES Verified 07/10/19 00:35 Penicillins Allergy Intermediate RASH,HIVES Verified 07/10/19 00:35 Serotonin 5HT-3 Antagonists Allergy Intermediate MIGRAINES Verified 07/10/19 00:35 TO SSRIs trazodone Allergy Intermediate BLOODY Verified 07/10/19 00:35 NOSE, HEADACHES,HIVES vancomycin Allergy Intermediate HIVES Verified 07/10/19 00:35 prednisone Allergy Mild CHEST Verified 07/10/19 00:35 TIGHTNESS carbamazepine Allergy Unknown HIVES-RASH- Verified 07/10/19 00:35 ITCHINESS cefepime Allergy Unknown face & arm Verified 07/10/19 00:35 redness/itching after 2nd or 3rd dose cefepime ceftriaxone Allergy Unknown Received Verified 07/10/19 00:35 in MTU (but needed benadryl for course of therapy Cipro Allergy Unknown ABD PAINS Verified 09/08/17 09:10 ciprofloxacin Allergy Unknown ABD PAINS Verified 07/10/19 00:35 sertraline Allergy Unknown UNKNOWN Verified 07/10/19 00:35 sitagliptin Allergy Unknown HIVES Verified 07/10/19 00:35 azithromycin Allergy Hives Verified 07/10/19 00:35 Cephalosporins Allergy Hives Verified 07/10/19 00:35 [facility] Allergy Unknown Verified 07/10/19 00:35 Tetracyclines AdvReac Severe HIVES Verified 07/10/19 00:35 Sulfa (Sulfonamide AdvReac Intermediate MIGRAINES Verified 07/10/19 00:35 Antibiotics) fexofenadine AdvReac Mild GI SYMPTOMS Verified 07/10/19 00:35 tizanidine AdvReac Mild ITCHING-HIV Verified 07/10/19 00:35 ES gentamicin AdvReac Unknown UNKNOWN Verified 07/10/19 00:35 lorazepam AdvReac Unknown Verified 07/10/19 00:35 blood Allergy Severe Anaphylaxis Uncoded 10/25/19 07:53 Consultations 08/11/20 18:04 ED Decision to Admit Stat 08/11/20 20:59 Consult Functional Tester Routine Ordered Studies 08/11/20 16:31 CT angio chest PE protocol Stat XR chest 1V portable HISTORY: Dyspnea COMPARISON: Chest 10/25/2019. FINDINGS: No pneumothorax. Small to moderate right and small left pleural effusions. Perihilar hazy airspace opacities, right greater the left with diffuse interstitial/vascular thickening. This favors moderate pulmonary edema. An atypical pneumonia could also have a similar appearance in the appropriate clinical setting. There are low lung volumes. The heart remains enlarged. IMPRESSION: 1. Above findings favor moderate asymmetric pulmonary edema with bilateral pleural effusions. 2. An atypical pneumonia could also have a similar appearance in the appropriate clinical setting. ACT 112: Negative or not required by law. Electronically signed by: Rah Lutz M.D. 08/11/2020 4:32 PM Dictated: 08/11/20 1630Transcribed: 08/11/20 1630 CHEST CTA for PULMONARY ARTERIES CT DOSE: 832.09 mGy.cm HISTORY: PE, +dimer, hypoxia TECHNIQUE: Multiaxial CT images of the chest were performed following the intravenous administration of contrast to evaluate the pulmonary arteries. Maximal intensity projection images were also obtained. A dose lowering technique was utilized adhering to the principles of ALARA. COMPARISON STUDY: Chest CTA 11/04/2019. FINDINGS: Normal caliber thoracic aorta with no evidence for dissection. The heart is enlarged. No pericardial effusions. There are trace bilateral pleural effusions. Stable prominent mediastinal lymph nodes. Near nondiagnostic evaluation of the majority of the segmental and subsegmental pulmonary arteries due to the motion artifact and bilateral airspace opacities. However, no definite filling defects within the pulmonary arteries to suggest a pulmonary embolus. Limited views of the upper abdomen again demonstrate a cirrhotic liver, splenomegaly, and ascites. No suspicious lytic or blastic osseous lesions. No pneumothorax. Small amount of mucoid material within the distal trachea. Mild diffuse interlobular septal thickening with patchy consolidative airspace opacities seen throughout the lungs. There is also dense consolidation seen within the majority of the bilateral lower lobes. IMPRESSION: 1. No evidence for pulmonary embolus with limitations as described above. 2. Multifocal bilateral airspace opacities with dense consolidation in the bilateral lower lobes. This favors a pneumonia and could be due to viral process. There is also cardiomegaly, trace bilateral pleural effusions, and interlobular septal thickening. Therefore, superimposed pulmonary edema could also have a similar appearance. 3. Redemonstration of the cirrhotic liver, splenomegaly, and ascites. ACT 112: Negative or not required by law. Electronically signed by: Rah Lutz M.D. 08/11/2020 5:18 PM Dictated: 08/11/20 1712Transcribed: 08/11/20 1712 XR chest 1V portable HISTORY: intubation COMPARISON: Chest 08/11/2020. FINDINGS: Endotracheal tube terminates 3.5 cm and the markel. The nasogastric tube terminates below the diaphragm. The tip is not included on this study. Progressive bilateral perihilar airspace opacities. Cardiomegaly and the bilateral pleural effusions persist. No pneumothorax. IMPRESSION: 1. Satisfactory support line placement. 2. Progressive bilateral airspace opacities. 3. Cardiomegaly and bilateral pleural effusions persist. ACT 112: Negative or not required by law. Electronically signed by: Rah Lutz M.D. 08/11/2020 7:41 PM Dictated: 08/11/201939Transcribed: 08/11/201939 SINGLE VIEW CHEST CLINICAL HISTORY: Respiratory failure. FINDINGS: An AP, portable, upright chest radiograph is compared to chest x-ray and chest CT dated 08/11/2020. The examination is degraded by portable technique, large body habitus, and patient rotation. Endotracheal and enteric tubes are u nchanged in position. The heart is enlarged. There is pulmonary vascular congestion. Bilateral airspace opacities are unchanged. Suspect small pleural effusions. No pneumothorax is seen. The skeletal structures are osteopenic. The bony thorax is grossly intact. IMPRESSION: 1. Stable lines and tubes. 2. Cardiomegaly with evidence of congestive failure. 3. Airspace opacities throughout both lungs have modestly improved as compared to yesterday. This could represent pulmonary edema and/or multifocal pneumonia. Clinical correlation will be required and continued follow-up to resolution is recommended. ACT 112: Negative or not required by law. Electronically signed by: Luis Meraz M.D. 08/12/2020 8:30 AM Dictated: 08/12/20827Transcribed: 08/12/20827 XR chest 1V portable HISTORY: Respiratory failure. Follow-up. COMPARISON: Chest 08/12/2020. FINDINGS: Endotracheal tube terminates 3.6 cm and the markel. The nasogastric tube terminates below the diaphragm. The tip is not included on this study. No pneumothorax. Small bilateral pleural effusions and bilateral perihilar airspace opacities persist. The heart remains mildly enlarged. IMPRESSION: 1. Stable lines and tubes. 2. Cardiomegaly and small bilateral pleural effusions, unchanged. 2. Bilateral airspace opacities persist. ACT 112: Negative or not required by law. Electronically signed by: Rah Lutz M.D. 08/13/2020 8:05 AM Dictated: 08/13/20803Transcribed: 08/13/20803 XR chest 1V portable CLINICAL HISTORY: Respiratory failure. Follow-up study COMPARISON STUDY: 08/13/2020 FINDINGS: The heart remains enlarged. There are bilateral pulmonary airspace opacities consistent with a multifocal pneumonia. There is been interval removal of the endotracheal tube and enteric tube. Small pleural effusions are not excluded. There is a persistent chondroid type lesion within the proximal right humerus[ IMPRESSION: 1. Persistent bilateral pulmonary airspace opacities 2. Persistent cardiomegaly 3. Interval removal of the endotracheal tube and enteric tube. ACT 112: Negative or not required by law. Electronically signed by: Yvon Hermosillo M.D. 08/14/2020 7:51 AM Dictated: 08/14/20749Transcribed: 08/14/20749 Hospital Course (1) Acute on chronic respiratory failure with hypoxia and hypercapnia: (2) Morbid obesity: (3) Respiratory acidosis: (4) Metabolic encephalopathy: Pt is a 69 y/o F w/ hx of DM type 2 on insulin, morbid obesity (BMI 54), obesity hypoventilation syndrome, COPD, JOSE, hypothyroidism, chronic diastolic CHF, prior CVA, HTN, HLD, cirrhosis, splenomegaly, chronic pain, chronic hypoxic hypercapnic resp. failure (4L NC at baseline during the day, bipap at night) who presents d/t hypoxia for several days. In ED worsening mental status (likely d/t hypercarbia, hypoxia) and required intubation. +hemoptysis Pneumonia VBG ph 7.1, pCO2 [address] PE - negative for PE, positive b/l pleural effusions, poss. PNA COVID 19 negative and WBC wnl Procalcitonin -negative on admission, then elevated at 1.59 Sputum culture grew pseudomonas Blood culture no growth S/P extubated on 08/13 Currently on Meropenem, will complete 10 days course of abx Will arrange for outpatient IV antibiotic infusion We will get an ultrasound-guided peripheral Spoke to pharmacy about to change the Meropenem to q8h to facilitate infusion compliance Meropenem change to 1g q8H Continue Trilogy as night and prn Continue flutter valve Clinically improve significantly Hx of chronic distolic CHF - on PO lasix at home - pro BNP wnl - Continue Lasix 40mg IV daily, will transition to p.o. Lasix - Continue Acetazolomide BID x 4 doses - cont. to closely monitor I/Os, electrolytes - troponin negative -Check BMP in 1 week to monitor electrolytes Hypokalemia K 3.6 today Monitor BMP while on IV Lasix Hypothyroidism - cont. levothyroxine DM type 2 - on insulin -Pharmacy on board for glycemic management ESBL UTI - UA positive for bacteria, nitrite - unclear if any urinary symptoms - urine cultx -ESBL -Continue meropenem IV Chronic Thrombocytopenia - Platelet 95 - No signs of active bleed bleeding - cont to closely monitor plt count Chronic pain Pt is taking alot of med that can altered her breathing Lyrica decreased to 100mg TID and nortriptyline was discontinued DVT ppx - SCDs CODE: FULL Disposition We will discharge home tomorrow Total Time Total Time Spent Total Time Spent (In Minutes): 40 minutes Total Time Includes: Examination of the Patient, Discharge Planning, Medication Reconciliation, Communication With Other Providers and Other Discharge Plan Discharge Items Patient Disposition: Home - Home Health Services Reason For Visit: ACUTE ON CHRONIC RESPIRATORY FAILURE, RESP ACIDOSI Discharge Diagnosis: (1) Acute on chronic respiratory failure with hypoxia and hypercapnia: (2) Morbid obesity: (3) Respiratory acidosis: (4) Metabolic encephalopathy: (6) Hx of chronic diastolic heart failure (7) Hypokalemia Activity: Resume your previous activity Non-emergency contact: Primary Care Provider Call non-emergency contact if: you have any medication questions Follow-up/Referrals: Bairon Owens MD [Primary Care Provider] - Diet: Carb Consistent or DM2 Addtl Attending Provider Instructions: Follow up with your primary are provider within 1 week Continue oxygen supplement and use you trilogy machine at night and as needed during the day Continue flutter valve Check BMP in 1 week to monitor electrolytes while getting lasix daily Fall precaution Complete the course of the antibiotic infusion Seek medical attention if you develop shortness of breath Pregabalin decrease to 100mg three times a day (if you develop drowsiness and lethargy, please hold the next dose) Nortriptyline discontinued Pending Studies at Discharge: No Stand-Alone Forms: My [facility], Smoking Cessation Medications and DC Order Prescriptions: New meropenem 1 gram recon soln 1 g IV Q8H 7 Days Qty: 21 RF: 0 metoprolol tartrate 25 mg Tablet 25 mg PO BID Qty: 60 RF: 0 pregabalin 100 mg capsule 100 mg PO TID 30 Days Qty: 90 RF: 0 guaifenesin 200 mg tablet 200 mg PO TID PRN (Reason: cough) Qty: 15 RF: 0 Continued celecoxib [Celebrex] 200 mg Capsule 200 mg PO DAILY PRN (Reason: Pain) RF: 0 sumatriptan succinate 100 mg Tablet 100 mg PO UD MDD 2 PRN (Reason: Migraine Headache) RF: 0 cyanocobalamin (vitamin B-12) [Vitamin B-12] 1,000 mcg Tablet 1,000 mcg PO DAILY RF: 0 levothyroxine 100 mcg tablet 100 mcg PO DAILYBB RF: 0 simvastatin 20 mg tablet 20 mg PO HS RF: 0 ursodiol 300 mg Capsule 600 mg PO BID RF: 0 montelukast 10 mg tablet 10 mg PO HS RF: 0 nystatin [Nyamyc] 100,000 unit/gram powder 1 applic TOPICAL TID RF: 0 duloxetine 30 mg capsule,delayed release(DR/EC) 30 mg PO DAILY RF: 0 cholecalciferol (vitamin D3) 1,250 mcg (50,000 unit) Capsule 1,250 mcg PO WK RF: 0 metformin 500 mg Tablet Extended Release 24 Hr 500 mg PO DAILY RF: 0 albuterol sulfate 2.5 mg /3 mL (0.083 %) solution for nebulization 2.5 mg continuous nebulization Q6H PRN (Reason: Shortness Of Breath Or Wheezing) RF: 0 ketoconazole 2 % cream 1 applic TOPICAL BID RF: 0 levocetirizine 5 mg Tablet 5 mg PO HS PRN (Reason: Allergy Symptoms) RF: 0 hydroxyzine pamoate 25 mg Capsule 25 mg PO TID PRN (Reason: Anxiety) RF: 0 ferrous sulfate 325 mg (65 mg iron) Capsule, Extended Release 325 mg PO DAILY RF: 0 folic acid 1 mg Tablet 1 mg PO DAILY RF: 0 mirtazapine 45 mg tablet 45 mg PO HS RF: 0 duloxetine 60 mg capsule,delayed release(DR/EC) 60 mg PO DAILY RF: 0 Tresiba FlexTouch U-200 200 unit/mL (3 mL) insulin pen 68 unit SUBCUT BID RF: 0 Novolin R Regular U-100 Insuln 100 unit/mL solution 70 unit subcut .BREAKFAST RF: 0 Novolin R Regular U-100 Insuln 100 unit/mL solution 30 unit subcut .LUNCH RF: 0 Novolin R Regular U-100 Insuln 100 unit/mL solution 40 unit subcut .EVENING MEAL RF: 0 Jardiance 25 mg tablet 25 mg PO QAM RF: 0 Changed furosemide 40 mg tablet 40 mg PO QAM Qty: 0 RF: 0 Discontinued nortriptyline 10 mg capsule 10 mg PO HS RF: 0 pregabalin 200 mg capsule 200 mg PO TID RF: 0 prednisone 20 mg tablet 40 mg PO .DAILY/UD RF: 0 Admission Data Admit Date/Time: 08/11/20 18:55 Attending Provider: Liza Rodriguez Admit Provider: Koko Castro Primary Care Provider: Bairon Owens Other Providers: Koko Castro ; Israel Young ; [facility],Home Healthcare Home Health Attestation I certify that this patient is under my care and that I, or a physicians high school assistant football coach working with me, had a face to-face encounter that meets the home health [id number] encounter requirements with this patient. The encounter with the patient was in whole, or in part, for the following medical condition, which is the primary reason for home health care (list medical condition): I certify that, based on my findings, the following services are medically necessary home health services: My clinical findings support the need for the above services because: OT Assess ADL Status and Restore Function w ADLs Skilled Nsg Assessment Further, I certify that my clinical findings support that this patient is homebound (i.e. absences from home require considerable and taxing effort and are for medical reasons or restorationist services or infrequently or of short duration when for other reasons) because: Certification for Home Health Services: Based on the above findings, I certify that this patient is confined to the home and needs intermittent long term care, physical therapy and/or speech therapy or continues to need occupational therapy. The patient is under my care, and I have initiated the establishment of the plan of care. This patient will be followed by a physician who will periodically review the plan of care.
[2020-08-18 08:45] LABS: Calcium 8.8 mg/dl (8.5-10.1); Creatinine Clr Calc Pharmacy 162.9 ml/min; Est GFR (African American) 113.7 ml/min; Est GFR (Non-African American) 98.1 ml/min; Potassium 3.8 mmol/L (3.5-5.1)
== END 2020-08-18 09:00 | disposition home health service (06) | DRG 208 ==
LOC: ED 15:15 → 1E 18:55 → SUATTDRO 18:55 → 1E 20:15 → 2W 08-14 18:49

== ENCOUNTER 2020-09-16 12:20 | Inpatient (IN) ==
[2020-09-16 13:33] LABS: Partial Thromboplastin Time 26.8 Seconds (21.0-31.0); Prothrombin Time 10.4 Seconds (9.0-12.0)
[2020-09-16 13:38] LABS: Blood Urea Nitrogen 15 mg/dl (7-18); Carbon Dioxide 35 mmol/L (21-32); Chloride 103 mmol/L (98-107); Est GFR (African American) 103.7 ml/min; Potassium 3.6 mmol/L (3.5-5.1); Sodium 141 mmol/L (136-145)
[2020-09-16 13:39] LABS: Alanine Aminotransferase 10 U/L (12-78); Albumin Level 2.7 gm/dl (3.4-5.0); Aspartate Aminotransferase 8 U/L (15-37); BUN Creatinine Ratio 22.8 (10-20); Calcium 7.9 mg/dl (8.5-10.1); Est GFR (Non-African American) 89.5 ml/min; Glucose 149 mg/dl (70-99); Magnesium 1.6 mg/dl (1.8-2.4)
[2020-09-16 13:43] LABS: Appearance Urine Cloudy (Clear); Bacteria Urine Automated 4+ (Negative); Bilirubin Urine Negative (Negative); Blood Urine Trace (Negative); Color Urine Yellow; Glucose Urine UA 1+ (Negative); Ketones Urine Negative (Negative); Leukocyte Esterase Urine 3+ (Negative); Nitrite Urine Positive (Negative); Protein Urine 1+ (Negative); RBC Urine Automated 0-4 /hpf (0-4); Specific Gravity Urine 1.007 (1.000-1.030); Urobilinogen Urine Negative (Negative); WBC Urine Automated >30 /hpf (0-5); pH Urine 6.5 (4.5-7.5)
[2020-09-16 13:44] LABS: Albumin Globulin Ratio 0.7 (0.9-2); Alkaline Phosphatase 85 U/L (45-117); Bilirubin,Total 0.4 mg/dl (0.2-1); Globulin 3.7 gm/dl (2.5-4.0); Total Protein 6.4 gm/dl (6.4-8.2); Troponin I < 0.015 ng/ml (0-0.045)
[2020-09-16 13:54] LABS: Hematocrit (blood only) 35.8 % (37-47); Hemoglobin 10.3 g/dL (12.0-16.0); Mean Corpuscular Hemoglobin 26.3 pg (25-34); Mean Corpuscular Hgb Conc 28.8 g/dL (32-36); Mean Corpuscular Volume 91.6 fL (80-100); Mean Platelet Volume 10.8 fL (7.4-10.4); Platelet Count 138 K/uL (130-400); RDW Coefficient of Variation 17.8 % (11.5-14.5); RDW Standard Deviation 59.1 fL (36.4-46.3); Red Blood Count 3.91 M/uL (4.2-5.4); White Blood Count 9.54 K/uL (4.8-10.8)
--- NOTE | 2020-09-16 14:12 | XRay Report ---
XR chest 1V portable CLINICAL HISTORY: sob COMPARISON STUDY: August 14, 2020 FINDINGS: No pneumothorax. Moderate to large bilateral pleural effusion associated with atelectasis or infiltra te at bilateral bases of worsening since prior study. Diffuse prominence of pulmonary interstitium is seen bilaterally. Cardiomediastinal silhouette is mildly enlarged. Aorta is calcified. Pulmonary vasculature is indistinct.. Osseous structures: Mild degenerative changes of the spine. IMPRESSION: 1. CHF pattern with bilateral pleural effusion which is worsening since prior study and possible pul monary edema. 2. Atherosclerosis. ACT 112: Negative or not required by law. The above report was generated using voice recognition software. It may contain grammatical, syntax o r spelling errors. Electronically signed by: Emma Herndon DO 09/16/2020 2:11 PM
[2020-09-16] MEDS ORDERED: ALBUT/IPRATROP 3MG/0.5MG NEB 3 ML VIAL NEB STA (14:15)
[2020-09-16] MEDS ORDERED: ACETAMINOPHEN 1000 MG/100 ML IV IV STA (14:15)
[2020-09-16] MEDS ORDERED: KETOROLAC TROMETHAMINE 15 MG/ML VIAL IV STA (14:15)
[2020-09-16] MEDS ORDERED: SODIUM CHLORIDE 0.9% 1000ML 500 ML IV ONE (14:18)
[2020-09-16 14:22] LABS: Basophilic Stippling 1+; Basophils # (auto) 0.02 K/uL (0-0.2); Basophils % (auto) 0.2 %; Eosinophils # (auto) 0.16 K/uL (0-0.5); Eosinophils % (auto) 1.7 %; Hypochromasia Present; Immature Granulocytes # (auto) 0.16 K/uL (0.00-0.02); Immature Granulocytes % (auto) 1.7 %; Lymphocytes # (auto) 1.08 K/uL (1.2-3.4); Lymphocytes % (auto) 11.3 %; Monocytes # (auto) 0.72 K/uL (0.11-0.59); Monocytes % (auto) 7.5 %; Neutrophils % (auto) 77.6 %; Polychromasia 1+; Stomatocytes 1+
[2020-09-16] MEDS ORDERED: MAGNESIUM SULFATE / D5W 1 GM/100 ML BAG IV STA (14:36)
[2020-09-16] MEDS ORDERED: MAGNESIUM OXIDE 400 MG TAB PO STA (14:36)
--- NOTE | 2020-09-16 14:49 | Emergency Department Note ---
Impression & Plan CHF (congestive heart failure), SOB (shortness of breath), Pleural effusion, Acute UTI, Hypomagnesemia ED Provider Note NAME: DAVID MAYO AGE: 69 SEX: F : 1950 ARRIVES VIA: Ambulance INFORMANT: [Patient][] ED PROVIDER(S): [Luis Cox MD] CHIEF COMPLAINT: Short of breath HISTORY OF PRESENT ILLNESS: The patient is a 69-year-old female who presents with 2 or 3 days of increasing shortness of breath and a brown productive cough. Her O2 saturation was reportedly at 88% despite her typical 4 L of oxygen. She has had heaviness in her chest. No fever. No abdominal pain, vomiting or diarrhea. She has not had urinary complaints. Patient states that she has bedsores and the buttock area is quite painful. She would like something for pain. She states that she is using Desitin to the area to prevent skin breakdown. She last took Tylenol this morning for pain. The patient does live alone. The lives with her. There is really no one helping them out at home. REVIEW OF SYSTEMS: See HPI for pertinent positives and negatives. A total of ten systems were reviewed and were otherwise negative. PMHx/PSHx: See Below SOCIAL HISTORY: See Below. PHYSICAL EXAM: GENERAL: Patient is in no acute distress. HEENT: No acute trauma, normocephalic atraumatic, mucous membranes moist, no nasal congestion, no scleral icterus. NECK: No stridor, no adenopathy, no meningismus, trachea is midline. LUNGS: Clear to auscultation bilaterally when listening anterior, no wheeze, no rhonchi, breath sounds equal. HEART: Mildly tachycardic, irregular rhythm, no murmurs. ABDOMEN: Soft, nontender, bowel sounds positive, no hernias, no peritonitis. Obese. EXTREMITIES: No cyanosis, moderate bilateral pedal edema, full range of motion of all the joints without pain or difficulty, no signs for acute trauma. NEUROLOGIC: Oriented x 3, no acute motor or sensory deficits, no focal weakness. SKIN: No rash, no jaundice, no diaphoresis. Buttock: There is dark discoloration and erythema about the entire sacral and buttock area. No current skin breakdown. The whole area is quite tender though. DIFFERENTIAL DIAGNOSIS: Reactive airway disease, pneumonia, pneumothorax, COPD, COVID-19, cellulitis, debilitation, CHF, infection, cardiac ischemia, pulmonary embolism, bronchitis, musculoskeletal, gastrointestinal, as well as other pathologies. EMERGENCY DEPARTMENT COURSE/PROCEDURES: ECG: Indication was shortness of breath. The ECG shows a sinus rhythm with a rate of 93. There are PACs. There is no ST elevation. No PVCs. The QTc is 452. Continuous Cardiac Monitoring: An order was placed for continuous cardiac monitoring. The monitor shows a rate of 84 with sinus rhythm with PACs. MEDICAL DECISION MAKING: There is no leukocytosis. The patient does have an anemia but this is baseline looking back at previous testing. Platelet count is normal. No coagulopathy. ABG does show some CO2 retention and a respiratory acidosis. Magnesium was low at 1.6. No kidney failure. No worrisome liver enzyme elevation. BNP was debbie vated consistent with fluid overload. ECG showed a sinus rhythm, no acute ischemia. Cardiac enzyme testing x1 is not consistent with acute cardiac injury. Urinalysis is consistent with infection. Covid testing is negative. Chest film shows worsening bilateral pleural effusions and some CHF. The patient has some pressure injury to her sacral area from sitting in 1 position for a long time. No draining ulcer at this point, no true cellulitis. She is fluid overloaded with bilateral pleural effusions and CHF. She does complain of some shortness of breath and by report, was hypoxic despite her typical amount of nasal cannula O2. She has a UTI. The patient is in need of a hospital stay. She is doing poorly at home. She may require a care center at discharge as, her issues are becoming difficult to maintain in the home environment. I did speak with manager of case management. I spoke with the patient and her . The on-call hospitalist has been consulted. During the patient's ER stay, she was given a small amount of IV saline. She received IV and oral magnesium. She received IV Toradol for pain, IV Tylenol for pain. She was given a DuoNeb. Past Med/Surg History Medical History Acute on chronic respiratory failure with hypoxia and hypercapnia Cerebrovascular disease "history left thalamic stroke" CHF (congestive heart failure) Chronic hypercapnic respiratory failure Chronic pain disorder (01/24/14) COPD (chronic obstructive pulmonary disease) Cough with hemoptysis CVA (cerebral vascular accident) hx of L thalamus CVA Diabetes mellitus, type II Dyslipidemia Encephalopathy acute HLD (hyperlipidemia) Hypertension Hypertension Hypertrophic cardiomyopathy Hypothyroidism Metabolic encephalopathy Morbid obesity Morbid obesity Obesity hypoventilation syndrome JOSE (obstructive sleep apnea) Recurrent UTI Respiratory acidosis Surgical History H/O partial nephrectomy History of tonsillectomy Hx of nasal septoplasty S/P dilatation and curettage Status post tonsillectomy Family History Father Coronary heart disease Mother Diabetes Social History Smoking Status: Never smoker Second Hand Exposure: No; Hx Alcohol Use: No Hx Substance Use: No Preferred Language: Georgian Communication Ability: Effective 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 Beliefs That Will Affect Care: None marital status: Current Living Situation: Spouse Current Living Situation Comment: living at home with Feels Safe at Home: Yes Safety Concerns: Feels Safe At This Time Assistive Devices: BiPap, Oxygen - Continuous and Wheelchair Allergies Allergies Allergy/AdvReac Type Severity Reaction Status Date / Time fluoxetine Allergy Severe ANAPHYLAXIS Verified 07/10/19 00:35 Insulins Allergy Severe LANTUS/LEVEMIR- Verified 07/10/19 00:35 HIVES/THROAT SWELLING moxifloxacin Allergy Severe HIVES Verified 07/10/19 00:35 nitrofurantoin Allergy Severe HIVES Verified 07/10/19 00:35 paroxetine Allergy Severe HIVES Verified 07/10/19 00:35 Quinolones Allergy Severe AVELOX & Verified 07/10/19 00:35 LEVAQUIN-HIVES amitriptyline Allergy Intermediate Sweats and Verified 07/10/19 00:35 itching buspirone Allergy Intermediate HIVES Verified 07/10/19 00:35 cephalexin Allergy Intermediate Hives Verified 07/10/19 00:35 citalopram Allergy Intermediate HIVES-RASH Verified 07/10/19 00:35 escitalopram Allergy Intermediate HIVES-RASH Verified 07/10/19 00:35 levofloxacin Allergy Intermediate Hives Verified 07/10/19 00:35 methadone Allergy Intermediate HIVES Verified 07/10/19 00:35 Penicillins Allergy Intermediate RASH,HIVES Verified 07/10/19 00:35 Serotonin 5HT-3 Antagonists Allergy Intermediate MIGRAINES Verified 07/10/19 00:35 TO SSRIs trazodone Allergy Intermediate BLOODY Verified 07/10/19 00:35 NOSE, HEADACHES,HIVES vancomycin Allergy Intermediate HIVES Verified 07/10/19 00:35 prednisone Allergy Mild CHEST Verified 07/10/19 00:35 TIGHTNESS carbamazepine Allergy Unknown HIVES-RASH- Verified 07/10/19 00:35 ITCHINESS cefepime Allergy Unknown face & arm Verified 07/10/19 00:35 redness/itching after 2nd or 3rd dose cefepime ceftriaxone Allergy Unknown Received Verified 07/10/19 00:35 in MTU (but needed benadryl for course of therapy Cipro Allergy Unknown ABD PAINS Verified 09/08/17 09:10 ciprofloxacin Allergy Unknown ABD PAINS Verified 07/10/19 00:35 sertraline Allergy Unknown UNKNOWN Verified 07/10/19 00:35 sitagliptin Allergy Unknown HIVES Verified 07/10/19 00:35 azithromycin Allergy Hives Verified 07/10/19 00:35 Cephalosporins Allergy Hives Verified 07/10/19 00:35 metformin [From Janumet] Allergy Unknown Verified 07/10/19 00:35 Tetracyclines AdvReac Severe HIVES Verified 07/10/19 00:35 Sulfa (Sulfonamide AdvReac Intermediate MIGRAINES Verified 07/10/19 00:35 Antibiotics) fexofenadine AdvReac Mild GI SYMPTOMS Verified 07/10/19 00:35 tizanidine AdvReac Mild ITCHING-HIV Verified 07/10/19 00:35 ES gentamicin AdvReac Unknown UNKNOWN Verified 07/10/19 00:35 lorazepam AdvReac Unknown Verified 07/10/19 00:35 blood Allergy Severe Anaphylaxis Uncoded 10/25/19 07:53 Home Meds Home Medications Medication Instructions Recorded Confirmed celecoxib 200 mg capsule (Celebrex) 200 mg PO DAILY PRN 10/24/19 09/16/20 duloxetine 30 mg capsule,delayed 30 mg PO DAILY 10/24/19 09/16/20 release levothyroxine 100 mcg tablet 100 mcg PO DAILYBB 10/24/19 09/16/20 montelukast 10 mg tablet 10 mg PO HS 10/24/19 09/16/20 nystatin 100,000 unit/gram topical 1 applic TOPICAL TID 10/24/19 09/16/20 powder ([facility]) simvastatin 20 mg tablet 20 mg PO HS 10/24/19 09/16/20 sumatriptan succinate 100 mg tablet 100 mg PO UD PRN MDD 2 10/24/19 09/16/20 ursodiol 300 mg capsule 600 mg PO BIDM 10/24/19 09/16/20 albuterol sulfate 2.5 mg CONTINUOUS NEBULIZATION Q6H 08/11/20 09/16/20 PRN duloxetine 60 mg capsule,delayed 60 mg PO DAILY 08/11/20 09/16/20 release empagliflozin 25 mg tablet 25 mg PO QAM 08/11/20 09/16/20 (Jardiance) folic acid 1 mg tablet 1 mg PO DAILY 08/11/20 09/16/20 hydroxyzine pamoate 25 mg capsule 25 mg PO TID PRN 08/11/20 09/16/20 insulin degludec 200 unit/mL (3 68 unit SUBCUT BID 08/11/20 09/16/20 mL) subcutaneous pen (Tresiba FlexTouch U-200 insulin) insulin regular human 100 unit/mL 30 unit SUBCUT .LUNCH 08/11/20 09/16/20 injection solution (Novolin R Regular U-100 Insulin) insulin regular human 100 unit/mL 40 unit SUBCUT .EVENING MEAL 08/11/20 09/16/20 injection solution (Novolin R Regular U-100 Insulin) insulin regular human 100 unit/mL 70 unit SUBCUT .BREAKFAST 08/11/20 09/16/20 injection solution (Novolin R Regular U-100 Insulin) ketoconazole 2 % topical cream 1 applic TOPICAL BID 08/11/20 09/16/20 levocetirizine 5 mg tablet 5 mg PO HS PRN 08/11/20 09/16/20 metformin 500 mg tablet,extended 500 mg PO DAILY 08/11/20 09/16/20 release 24 hr mirtazapine 45 mg tablet 45 mg PO HS 08/11/20 09/16/20 amlodipine 2.5 mg tablet 2.5 mg PO DAILY 09/16/20 09/16/20 cyanocobalamin (vitamin B-12) 1,000 mcg PO DAILY 09/16/20 09/16/20 1,000 mcg tablet ferrous sulfate 325 mg (65 mg 325 mg PO DAILY 09/16/20 09/16/20 iron) tablet furosemide 40 mg tablet 40 mg PO QAM PRN 09/16/20 09/16/20 potassium chloride 10 mEq 10 meq PO DAILY PRN 09/16/20 09/16/20 capsule,extended release pregabalin 100 mg capsule 100 mg PO TID 09/16/20 09/16/20 Previous Rx's Medication Instructions Recorded guaifenesin 200 mg tablet 200 mg PO TID PRN #15 tab 08/18/20 metoprolol tartrate 25 mg tablet 25 mg PO BID #60 tab 08/18/20 Results & Data (ED) Vital Signs Vital Signs - 24 hr 09/16/20 12:19 09/16/20 12:30 09/16/20 13:02 Temperature 37 C Temperature Source Oral Pulse Rate 94 H 90 93 H Pulse Rate [Left Finger] Pulse Rate from SpO2 Sensor 93 H Respiratory Rate 25 H 28 H 29 H Respiratory Effort / Characteristics Short of Breath Normal for Patient Blood Pressure 161/61 H Blood Pressure Mean 94 Pulse Oximetry 96 97 Oxygen Delivery Method Nasal Cannula Oxygen Flow Rate 4 Sepsis Recent Fever Within 48 Hours No Sepsis New/Unexplained Change in Mental Status No Sepsis Action Taken by Nursing No Action Required 09/16/20 13:11 09/16/20 13:30 09/16/20 14:00 Temperature Temperature Source Pulse Rate 97 H 95 H Pulse Rate [Left Finger] Pulse Rate from SpO2 Sensor 97 H 89 Respiratory Rate 30 H 28 H Respiratory Effort / Characteristics Blood Pressure 160/79 H 172/84 H Blood Pressure Mean 106 113 Pulse Oximetry 96 96 95 Oxygen Delivery Method Nasal Cannula Oxygen Flow Rate 4 Sepsis Recent Fever Within 48 Hours Sepsis New/Unexplained Change in Mental Status Sepsis Action Taken by Nursing 09/16/20 14:30 09/16/20 14:44 09/16/20 15:00 Temperature Temperature Source Pulse Rate 94 H 104 H Pulse Rate [Left Finger] 84 Pulse Rate from SpO2 Sensor 94 H 95 H Respiratory Rate 29 H 20 29 H Respiratory Effort / Characteristics Non-Labored Spontaneous Blood Pressure 192/71 H 161/109 H Blood Pressure Mean 111 126 Pulse Oximetry 96 96 97 Oxygen Delivery Method Nasal Cannula Oxygen Flow Rate 4 Sepsis Recent Fever Within 48 Hours Sepsis New/Unexplained Change in Mental Status Sepsis Action Taken by Group Home Medications Current Medication List: was personally reviewed by me Laboratory Data Attestation: I reviewed the patient's lab results. Result diagrams: 09/16/20 13:04 09/16/20 13:04 Lab Results 09/16/20 09/16/20 09/16/20 Range/Units 13:04 13:04 13:04 WBC 9.54 (4.8-10.8) K/uL RBC 3.91 L (4.2-5.4) M/uL Hgb 10.3 L (12.0-16.0) g/dL Hct 35.8 L (37-47) % MCV 91.6 (80-100) fL MCH 26.3 (25-34) pg MCHC 28.8 L (32-36) g/dL RDW Std Deviation 59.1 H (36.4-46.3) fL RDW Coeff of Duy 17.8 H (11.5-14.5) % Plt Count 138 (130-400) K/uL MPV 10.8 H (7.4-10.4) fL Immature Gran % (Auto) 1.7 % Neut % (Auto) 77.6 % Lymph % (Auto) 11.3 % [place] % (Auto) 7.5 % Eos % (Auto) 1.7 % Baso % (Auto) 0.2 % Neut # (Auto) 7.40 H (1.4-6.5) K/uL Lymph # (Auto) 1.08 L (1.2-3.4) K/uL [place] # (Auto) 0.72 H (0.11-0.59) K/uL Eos # (Auto) 0.16 (0-0.5) K/uL Baso # (Auto) 0.02 (0-0.2) K/uL Immature Gran # (Auto) 0.16 H (0.00-0.02) K/uL Polychromasia 1+ Hypochromasia Present Basophilic Stippling 1+ Stomatocytes 1+ PT 10.4 (9.0-12.0) Seconds INR 1.0 (0.9-1.1) APTT 26.8 (21.0-31.0) Seconds PTT Ratio 1.0 Sodium 141 (136-145) mmol/L Potassium 3.6 (3.5-5.1) mmol/L Chloride 103 (98-107) mmol/L Carbon Dioxide 35 H (21-32) mmol/L Anion Gap 2.0 L (3-11) BUN 15 (7-18) mg/dl Creatinine 0.66 (0.6-1.2) mg/dl Est Cr Clr Drug Dosing Not Reportable Est GFR ( Amer) 103.7 ml/min Est GFR (Non-Af Amer) 89.5 ml/min BUN/Creatinine Ratio 22.8 H (10-20) Glucose 149 H (70-99) mg/dl Calcium 7.9 L (8.5-10.1) mg/dl Magnesium 1.6 L (1.8-2.4) mg/dl Total Bilirubin 0.4 (0.2-1) mg/dl AST 8 L (15-37) U/L ALT 10 L (12-78) U/L Alkaline Phosphatase 85 (45-117) U/L Troponin I < 0.015 (0-0.045) ng/ml NT-Pro-B Natriuret Pep (0-900) pg/ml Total Protein 6.4 (6.4-8.2) gm/dl Albumin 2.7 L (3.4-5.0) gm/dl Globulin 3.7 (2.5-4.0) gm/dl Albumin/Globulin Ratio 0.7 L (0.9-2) Procalcitonin (0-0.5) ng/ml Urine Color Urine Appearance (Clear) Urine pH (4.5-7.5) Ur Specific [place] (1.000-1.030) Urine Protein (Negative) Urine Glucose (UA) (Negative) Urine Ketones (Negative) Urine Blood (Negative) Urine Nitrite (Negative) Urine Bilirubin (Negative) Urine Urobilinogen (Negative) Ur Leukocyte Esterase (Negative) Urine WBC (Auto) (0-5) /hpf Urine RBC (Auto) (0-4) /hpf U Hyaline Cast (Auto) (0-5) /lpf U Epithel Cells (Auto) (0-5) /lpf Urine Bacteria (Auto) (Negative) 09/16/20 09/16/20 09/16/20 Range/Units 13:04 13:04 13:32 WBC (4.8-10.8) K/uL RBC (4.2-5.4) M/uL Hgb (12.0-16.0) g/dL Hct (37-47) % MCV (80-100) fL MCH (25-34) pg MCHC (32-36) g/dL RDW Std Deviation (36.4-46.3) fL RDW Coeff of Duy (11.5-14.5) % Plt Count (130-400) K/uL MPV (7.4-10.4) fL Immature Gran % (Auto) % Neut % (Auto) % Lymph % (Auto) % [place] % (Auto) % Eos % (Auto) % Baso % (Auto) % Neut # (Auto) (1.4-6.5) K/uL Lymph # (Auto) (1.2-3.4) K/uL [place] # (Auto) (0.11-0.59) K/uL Eos # (Auto) (0-0.5) K/uL Baso # (Auto) (0-0.2) K/uL Immature Gran # (Auto) (0.00-0.02) K/uL Polychromasia Hypochromasia Basophilic Stippling Stomatocytes PT (9.0-12.0) Seconds INR (0.9-1.1) APTT (21.0-31.0) Seconds PTT Ratio Sodium (136-145) mmol/L Potassium (3.5-5.1) mmol/L Chloride (98-107) mmol/L Carbon Dioxide (21-32) mmol/L Anion Gap (3-11) BUN (7-18) mg/dl Creatinine (0.6-1.2) mg/dl Est Cr Clr Drug Dosing Est GFR ( Amer) ml/min Est GFR (Non-Af Amer) ml/min BUN/Creatinine Ratio (10-20) Glucose (70-99) mg/dl Calcium (8.5-10.1) mg/dl Magnesium (1.8-2.4) mg/dl Total Bilirubin (0.2-1) mg/dl AST (15-37) U/L ALT (12-78) U/L Alkaline Phosphatase (45-117) U/L Troponin I (0-0.045) ng/ml NT-Pro-B Natriuret Pep 1149 H (0-900) pg/ml Total Protein (6.4-8.2) gm/dl Albumin (3.4-5.0) gm/dl Globulin (2.5-4.0) gm/dl Albumin/Globulin Ratio (0.9-2) Procalcitonin 0.54 H (0-0.5) ng/ml Urine Color Yellow Urine Appearance Cloudy A (Clear) Urine pH 6.5 (4.5-7.5) Ur Specific [place] 1.007 (1.000-1.030) Urine Protein 1+ H (Negative) Urine Glucose (UA) 1+ H (Negative) Urine Ketones Negative (Negative) Urine Blood Trace H (Negative) Urine Nitrite Positive A (Negative) Urine Bilirubin Negative (Negative) Urine Urobilinogen Negative (Negative) Ur Leukocyte Esterase 3+ H (Negative) Urine WBC (Auto) >30 H (0-5) /hpf Urine RBC (Auto) 0-4 (0-4) /hpf U Hyaline Cast (Auto) 1-5 (0-5) /lpf U Epithel Cells (Auto) 5-10 H (0-5) /lpf Urine Bacteria (Auto) 4+ H (Negative) Administered Medications Insulin Aspart (Insulin Aspart 100 Units/Ml 3 Ml Pen) 0 units SC ACHS WALDO Stop: 10/16/20 21:59 Last Admin: 09/16/20 21:50 Dose: Not Given Documented by: [id number] Discontinued Medications Acetaminophen (Acetaminophen 1000 Mg/100 Ml Iv) 1,000 mg IV NOW STA Stop: 09/16/20 14:16 Last Admin: 09/16/20 15:10 Dose: 1,000 mg Documented by: [id number] Albuterol (Albut/Ipratrop 3mg/0.5mg Neb 3 Ml Vial) 3 ml NEB NOW STA Stop: 09/16/20 14:16 Last Admin: 09/16/20 14:43 Dose: 3 ml Documented by: [id number] Furosemide (Furosemide 40 Mg/4 Ml Vial) 40 mg IV NOW STA Stop: 09/16/20 15:14 Last Admin: 09/16/20 15:26 Dose: 40 mg Documented by: [id number] Furosemide (Furosemide 40 Mg/4 Ml Vial) 40 mg IV [id number] WALDO Stop: 10/16/20 16:59 Last Admin: 09/16/20 17:09 Dose: Not Given Documented by: [id number] Hydromorphone HCl (Hydromorphone Inj 0.5 Mg/0.5 Ml Syr) 0.25 mg IV NOW STA Stop: 09/16/20 16:37 Last Admin: 09/16/20 16:59 Dose: 0.25 mg Documented by: [id number] Sodium Chloride (Nss 1000ml) 500 mls @ 999 mls/hr IV .Q31M ONE Stop: 09/16/20 14:48 Last Admin: 09/16/20 15:21 Dose: Not Given Documented by: [id number] Magnesium Sulfate/Dextrose (Magnesium Sulfate / D5w) 1 gm in 100 mls @ 100 mls/hr IV NOW STA Stop: 09/16/20 15:35 Last Infusion: 09/16/20 16:26 Dose: 100 mls/hr Documented by: [id number] Admin: 09/16/20 15:26 Dose: 100 mls/hr Documented by: [id number] Ketorolac Tromethamine (Ketorolac Tromethamine 15 Mg/Ml Vial) 10 mg IV NOW STA Stop: 09/16/20 14:16 Last Admin: 09/16/20 15:11 Dose: 10 mg Documented by: [id number] Magnesium Oxide (Magnesium Oxide 400 Mg Tab) 400 mg PO NOW STA Stop: 09/16/20 14:37 Last Admin: 09/16/20 15:11 Dose: 400 mg Documented by: [id number] Potassium Chloride (Potassium Chloride Crtab 20 Meq Tabcr) 40 meq PO NOW STA Stop: 09/16/20 15:41 Last Admin: 09/16/20 16:10 Dose: 40 meq Documented by: [id number] Imaging Data Radiologist's Impression: Chest X-Ray 09/16/20 00:00 XR chest 1V portable CLINICAL HISTORY: sob COMPARISON STUDY: August 14, 2020 FINDINGS: No pneumothorax. Moderate to large bilateral pleural effusion associated with atelectasis or infiltrate at bilateral bases of worsening since prior study. Diffuse prominence of pulmonary interstitium is seen bilaterally. Cardiomediastinal silhouette is mildly enlarged. Aorta is calcified. Pulmonary vasculature is indistinct.. Osseous structures: Mild degenerative changes of the spine. IMPRESSION: 1. CHF pattern with bilateral pleural effusion which is worsening since prior study and possible pulmonary edema. 2. Atherosclerosis. ACT 112: Negative or not required by law. The above report was generated using voice recognition software. It may contain grammatical, syntax or spelling errors. Electronically signed by: Emma Herndon DO 09/16/2020 2:11 PM Discharge Plan Visit Data Chief Complaint: Shortness of Breath/Dyspnea Stated Complaint: SOB ED Provider: Luis Cox Discharge Problem: CHF (congestive heart failure), SOB (shortness of breath), Pleural effusion, Acute UTI, Hypomagnesemia Patient Disposition: Admitted As Inpatient Condition: Fair Discharge Instructions Interventions: ED Discharge Assessment Last Done: 09/16/20 20:07
[2020-09-16] MEDS ORDERED: PHARMACY GLYCEMIC MGMT CONSULT STA (15:02)
[2020-09-16] MEDS ORDERED: FUROSEMIDE 40 MG/4 ML VIAL IV STA (15:13)
[2020-09-16] MEDS ORDERED: CONSULT PHARMACY STA (15:27)
[2020-09-16 15:39] LABS: Base Excess ABG 7.3 mEq/L (-9-1.8); HCO3 ABG 37 mmol/L (19-24); Oxygen Saturation ABG 95.9 % (90-95); PCO2 ABG 86 mmHg (35-46); PO2 ABG 93 mmHg (80-95); pH ABG 7.25 (7.35-7.45)
[2020-09-16 15:40] LABS: Allen Test Pos (Pos)
[2020-09-16] MEDS ORDERED: POTASSIUM CHLORIDE CRTAB 20 MEQ TABCR PO STA (15:40)
--- NOTE | 2020-09-16 15:53 | History & Physical Report ---
Date of Service September 16, 2020 Assessment & Plan (1) Chronic hypercapnic respiratory failure: (2) Respiratory acidosis: (3) Acute on chronic heart failure with preserved ejection fraction (HFpEF): (4) Obesity hypoventilation syndrome: (5) Recurrent UTI: (6) Diabetes mellitus, type II: (7) Hypertension: (8) Cerebrovascular disease: (9) COPD (chronic obstructive pulmonary disease): (10) Anemia: Plan: This is a chronically ill bedbound 69-year-old female who has significant past medical history of chronic respiratory failure on 4 L of O2, central sleep apnea, obesity hypoventilation syndrome, chronic diastolic CHF, COPD, cerebrovascular disease, IDDM type II, HTN, HLD, chronic pain syndrome, recurrent UTI who presents to ED secondary to shortness with and hypoxia for 3 to 4 days. Pt maintaining oxygenation on normal 4L of O2. ABG insist on Respiratory acidosis, mentation at baseline. pH 7.25, pCO2 86, chronic retainer in setting of Obesity hypoventilation syndrome. CXR: CHF with pulm vasc congestion, pro-BNP 1149 ( recent admission 562) B/L lower ext edema, pt unable to weigh self daily, 164.2kg today 150.5kg at discharge - will need re weight Last echocardiogram 10/27/2019 revealed EF 65 to 70%, grade 1 diastolic dysfunction Chronic respiratory failure with hypercapnia Acute on chronic HFpEF Respiratory acidosis Admit to PCU Start on BiPAP therapy IV Lasix 40 mg twice daily Daily weights, strict I's and O's Consult cardiology for assistance in management of volume status Will need to re weight when gets to floor ~ 30lb weight gain from discharge if accurate IV estrada placed monitor vbg bid give KCL 40meq x 1 now and the 20meq bid, monitor bmp Central Sleep Apnea, Obesity Hypoventilation syndrome continue bipap trelegy at HS avoid sedating and respiratory suppression drugs Recurrent UTI/Abnormal UA recent hospital admission 08/2020 + sputum culture pseudomonas tx with 10 day course of meropenem, pt with multiple drug allergies UA concerning for UTI, afebrile, wbc WNL - pt poor historian last UA + ESBL await culture, empirically start meropenem consult infectious disease 2/2 to multiple drug allergies and to determine need for further antibiotic therapy also obtain sputum culture - pt c/o brown discolored sputum, procal mildly elevated 0.54 Hypomagnesemia received 1g mag sulfated in ED and oral mag ox repeat in a.m. IDDM 2 consult glycemic pharmacy - appreciate their assistance NPH, novolog per protocol hold metforminsotero last a1c 08/13/20 5.5 Bed bound status/ambulatory dysfunction Consult case management having difficult time taking care of patient at home May need placement Sacral erythema/ecchymosis Present on arrival, pressure induced secondary to bedbound status Consult wound care HTN Continue metoprolol, amlodipine Monitor Multiple Drug Allergies pt would benefit from allergy testing to determine true allergies as pt running out of options for antibiotics will consult ID for their input COPD no acute exac prn albuterol Anemia h/h stable at 10.3 and 35.8 iron def - receiving monoferric at outpt monitor DVT ppx: SCD/TEDS for now, pt c/o blood tinged sputum, monitor daily need for chemical prophylaxis Dispo: PCU, pt required intubation past 2 admissions, will need close monitoring FULL CODE PCP: Graciela Pt was seen and examined in collaboration with Dr. Isaacs, please see addendum History of Present Illness Chief Complaint: SOB and hypoxia x 3-4 days. Primary Care Provider: Bairon Owens MD This is a chronically ill bedbound 69-year-old female who has significant past medical history of chronic respiratory failure on 4 L of O2, central sleep apnea, obesity hypoventilation syndrome, chronic diastolic CHF, COPD, cerebrovascular disease, IDDM type II, HTN, HLD, chronic pain syndrome, recurrent UTI who presents to ED secondary to shortness with and hypoxia for 3 to 4 days. is at bedside. Patient is generally a poor historian. Per at bedside he states that for the past 3 to 4 days they have been having difficulty keeping her oxygen saturations up despite 4 L of oxygen. They have been running anywhere between 77% and 88%. EMS was summoned today. She has been having increasingly difficulty breathing. Of significance patient was recently hospitalized 08/11 to 08/18/2020 secondary to acute on chronic respiratory failure with hypoxia and hypercapnia secondary to pneumonia and ESBL UTI. During this admission she did require mechanical ventilation and was weaned appropriately. She has multiple drug allergies and was treated with IV meropenem secondary to a positive ESBL UTI and Pseudomonas sputum culture. She does follow with [facility] at home and per records appears to be trying to get more in-home services. She does complain of a cough that is productive with brown and blood-tinged sputum, shortness of breath with very minimal exertion, nausea, poor appetite, increased lower extremity swelling and pain to her buttocks. Most of her pain is in her buttocks secondary to skin erythema as well as pain in her bilateral lower extremities. Per at bedside she has been taking 40 mg of Lasix the past 2 to 3 days. They do not have her medication list with her so they are unsure what medication she is taking and they do not know her settings of her trilogy. In ED patient made hemodynamically stable although she was hypertensive with blood pressure 192/71. Lab work notable for a stable anemia of 10.3 and 35.8, platelet 138, mag 1.6, proBNP 1149, albumin 2.7. ABG returned with respiratory acidosis, PH 7.25, pCO2 86. Allergies Allergy/AdvReac Type Severity Reaction Status Date / Time fluoxetine Allergy Severe ANAPHYLAXIS Verified 07/10/19 00:35 Insulins Allergy Severe LANTUS/LEVEMIR- Verified 07/10/19 00:35 HIVES/THROAT SWELLING moxifloxacin Allergy Severe HIVES Verified 07/10/19 00:35 nitrofurantoin Allergy Severe HIVES Verified 07/10/19 00:35 paroxetine Allergy Severe HIVES Verified 07/10/19 00:35 Quinolones Allergy Severe AVELOX & Verified 07/10/19 00:35 LEVAQUIN-HIVES amitriptyline Allergy Intermediate Sweats and Verified 07/10/19 00:35 itching buspirone Allergy Intermediate HIVES Verified 07/10/19 00:35 cephalexin Allergy Intermediate Hives Verified 07/10/19 00:35 citalopram Allergy Intermediate HIVES-RASH Verified 07/10/19 00:35 escitalopram Allergy Intermediate HIVES-RASH Verified 07/10/19 00:35 levofloxacin Allergy Intermediate Hives Verified 07/10/19 00:35 methadone Allergy Intermediate HIVES Verified 07/10/19 00:35 Penicillins Allergy Intermediate RASH,HIVES Verified 07/10/19 00:35 Serotonin 5HT-3 Antagonists Allergy Intermediate MIGRAINES Verified 07/10/19 00:35 TO SSRIs trazodone Allergy Intermediate BLOODY Verified 07/10/19 00:35 NOSE, HEADACHES,HIVES vancomycin Allergy Intermediate HIVES Verified 07/10/19 00:35 prednisone Allergy Mild CHEST Verified 07/10/19 00:35 TIGHTNESS carbamazepine Allergy Unknown HIVES-RASH- Verified 07/10/19 00:35 ITCHINESS cefepime Allergy Unknown face & arm Verified 07/10/19 00:35 redness/itching after 2nd or 3rd dose cefepime ceftriaxone Allergy Unknown Received Verified 07/10/19 00:35 in MTU (but needed benadryl for course of therapy Cipro Allergy Unknown ABD PAINS Verified 09/08/17 09:10 ciprofloxacin Allergy Unknown ABD PAINS Verified 07/10/19 00:35 sertraline Allergy Unknown UNKNOWN Verified 07/10/19 00:35 sitagliptin Allergy Unknown HIVES Verified 07/10/19 00:35 azithromycin Allergy Hives Verified 07/10/19 00:35 Cephalosporins Allergy Hives Verified 07/10/19 00:35 metformin [From [facility]] Allergy Unknown Verified 07/10/19 00:35 Tetracyclines AdvReac Severe HIVES Verified 07/10/19 00:35 Sulfa (Sulfonamide AdvReac Intermediate MIGRAINES Verified 07/10/19 00:35 Antibiotics) fexofenadine AdvReac Mild GI SYMPTOMS Verified 07/10/19 00:35 tizanidine AdvReac Mild ITCHING-HIV Verified 07/10/19 00:35 ES gentamicin AdvReac Unknown UNKNOWN Verified 07/10/19 00:35 lorazepam AdvReac Unknown Verified 07/10/19 00:35 blood Allergy Severe Anaphylaxis Uncoded 10/25/19 07:53 Home Medications Medication Instructions Recorded Confirmed Type celecoxib 200 mg capsule (Celebrex) 200 mg PO DAILY PRN 10/24/19 09/16/20 History duloxetine 30 mg capsule,delayed 30 mg PO DAILY 10/24/19 09/16/20 History release levothyroxine 100 mcg tablet 100 mcg PO DAILYBB 10/24/19 09/16/20 History montelukast 10 mg tablet 10 mg PO HS 10/24/19 09/16/20 History nystatin 100,000 unit/gram topical 1 applic TOPICAL TID 10/24/19 09/16/20 History powder (Nyamyc) simvastatin 20 mg tablet 20 mg PO HS 10/24/19 09/16/20 History sumatriptan succinate 100 mg tablet 100 mg PO UD PRN MDD 2 10/24/19 09/16/20 History ursodiol 300 mg capsule 600 mg PO BIDM 10/24/19 09/16/20 History albuterol sulfate 2.5 mg CONTINUOUS NEBULIZATION Q6H 08/11/20 09/16/20 History PRN duloxetine 60 mg capsule,delayed 60 mg PO DAILY 08/11/20 09/16/20 History release empagliflozin 25 mg tablet 25 mg PO QAM 08/11/20 09/16/20 History (Jardiance) folic acid 1 mg tablet 1 mg PO DAILY 08/11/20 09/16/20 History hydroxyzine pamoate 25 mg capsule 25 mg PO TID PRN 08/11/20 09/16/20 History insulin degludec 200 unit/mL (3 68 unit SUBCUT BID 08/11/20 09/16/20 History mL) subcutaneous pen (Tresiba FlexTouch U-200 insulin) insulin regular human 100 unit/mL 30 unit SUBCUT .LUNCH 08/11/20 09/16/20 History injection solution (Novolin R Regular U-100 Insulin) insulin regular human 100 unit/mL 40 unit SUBCUT .EVENING MEAL 08/11/20 09/16/20 History injection solution (Novolin R Regular U-100 Insulin) insulin regular human 100 unit/mL 70 unit SUBCUT .BREAKFAST 08/11/20 09/16/20 History injection solution (Novolin R Regular U-100 Insulin) ketoconazole 2 % topical cream 1 applic TOPICAL BID 08/11/20 09/16/20 History levocetirizine 5 mg tablet 5 mg PO HS PRN 08/11/20 09/16/20 History metformin 500 mg tablet,extended 500 mg PO DAILY 08/11/20 09/16/20 History release 24 hr mirtazapine 45 mg tablet 45 mg PO HS 08/11/20 09/16/20 History guaifenesin 200 mg tablet 200 mg PO TID PRN #15 tab 08/18/20 09/16/20 Rx metoprolol tartrate 25 mg tablet 25 mg PO BID #60 tab 08/18/20 09/16/20 Rx amlodipine 2.5 mg tablet 2.5 mg PO DAILY 09/16/20 09/16/20 History cyanocobalamin (vitamin B-12) 1,000 mcg PO DAILY 09/16/20 09/16/20 History 1,000 mcg tablet ferrous sulfate 325 mg (65 mg 325 mg PO DAILY 09/16/20 09/16/20 History iron) tablet furosemide 40 mg tablet 40 mg PO QAM PRN 09/16/20 09/16/20 History potassium chloride 10 mEq 10 meq PO DAILY PRN 09/16/20 09/16/20 History capsule,extended release pregabalin 100 mg capsule 100 mg PO TID 09/16/20 09/16/20 History Past Med/Surg History Medical History (Updated 09/16/20 @ 16:05 by Debra Porter PA-C) Acute on chronic respiratory failure with hypoxia and hypercapnia Cerebrovascular disease "history left thalamic stroke" CHF (congestive heart failure) Chronic hypercapnic respiratory failure Chronic pain disorder (01/24/14) COPD (chronic obstructive pulmonary disease) Cough with hemoptysis CVA (cerebral vascular accident) hx of L thalamus CVA Diabetes mellitus, type II Dyslipidemia Encephalopathy acute HLD (hyperlipidemia) Hypertension Hypertension Hypertrophic cardiomyopathy Hypothyroidism Metabolic encephalopathy Morbid obesity Morbid obesity Obesity hypoventilation syndrome JOSE (obstructive sleep apnea) Recurrent UTI Respiratory acidosis Surgical History H/O partial nephrectomy History of tonsillectomy Hx of nasal septoplasty S/P dilatation and curettage Status post tonsillectomy Family History Father Coronary heart disease Mother Diabetes Social History Smoking Status: Never smoker Second Hand Exposure: No; Preferred Language: Upper Sorbian Communication Ability: Unable Theatrical Variety Agent Required: No Beliefs That Will Affect Care: None marital status: Current Living Situation: Spouse Current Living Situation Comment: living at home with Feels Safe at Home: Yes Assistive Devices: CPAP, Denture - Upper and Mechanical Lift Review of Systems Review of Systems: All systems reviewed & are unremarkable except as noted in HPI & below Physical Exam Physical Exam: Constitutional: Chronically ill, morbidly obese, F, vitals as above, NAD, sitting up in bed, answers question appropriately but gets dyspneic with conversation Head: Normocephalic, Atraumatic Eyes: PERRL, conjunctivae normal, anicteric sclerae ENMT: external ear and nose normal, oropharynx normal Neck: trachea midline, no thyromegaly normal visual inspection Respiratory: poor inspiratory effort, bibasilar crackles, no w/rhonchi, normal respiratory effort. no accessory muscle use Cardiovascular: distant heart sounds, RRR,s1/s2, +2-3 pitting edema b/l lower ext Vessels: no JVD or carotid bruit Chest: normal inspection of chest Abdomen: protuberant abd, soft, nontender, no hepatosplenomegaly Musculoskeletal: no cyanosis or clubbing, poor active rom 2/2 to body habitus, unable to assess strength Skin: report erythematous buttocks, unable to appropriately roll patient given habitus, will need to re evaluate when on floor with wound care nurse, no rashes, warm and dry normal turgor Neurologic: PERRL, EOMI, accommodation nl, no face palsy, no dysarthria CN's II-XI intact bilaterally and moves all extremities Psychiatric: A+Ox3, euthymic affect Lymphatic: no cervical or axillary lymphadenopathy : estrada draining yellow urine Results & Data Results & Data ([facility] [place]) Vital Signs (Past 12 Hours) Vital Signs Temp Pulse Pulse Resp BP Pulse Ox 09/16/20 14:44 84 20 96 09/16/20 14:30 94 H 29 H 192/71 H 96 09/16/20 14:00 95 H 28 H 172/84 H 95 09/16/20 13:30 97 H 30 H 160/79 H 96 09/16/20 13:11 96 09/16/20 13:02 93 H 29 H 09/16/20 12:30 90 28 H 161/61 H 97 09/16/20 12:19 37 C 94 H 25 H 96 Diagnostic Findings Chest X-Ray 09/16/20 00:00 XR chest 1V portable CLINICAL HISTORY: sob COMPARISON STUDY: August 14, 2020 FINDINGS: No pneumothorax. Moderate to large bilateral pleural effusion associated with atelectasis or infiltrate at bilateral bases of worsening since prior study. Diffuse prominence of pulmonary interstitium is seen bilaterally. Cardiomediastinal silhouette is mildly enlarged. Aorta is calcified. Pulmonary vasculature is indistinct.. Osseous structures: Mild degenerative changes of the spine. IMPRESSION: 1. CHF pattern with bilateral pleural effusion which is worsening since prior study and possible pulmonary edema. 2. Atherosclerosis. ACT 112: Negative or not required by law. The above report was generated using voice recognition software. It may contain grammatical, syntax or spelling errors. Electronically signed by: Emma Herndon DO 09/16/2020 2:11 PM Medications Administered Medication List Discontinued Medications Acetaminophen (Acetaminophen 1000 Mg/100 Ml Iv) 1,000 mg IV NOW STA Stop: 09/16/20 14:16 Last Admin: 09/16/20 15:10 Dose: 1,000 mg Documented by: [id number] Albuterol (Albut/Ipratrop 3mg/0.5mg Neb 3 Ml Vial) 3 ml NEB NOW STA Stop: 09/16/20 14:16 Last Admin: 09/16/20 14:43 Dose: 3 ml Documented by: [id number] Furosemide (Furosemide 40 Mg/4 Ml Vial) 40 mg IV NOW STA Stop: 09/16/20 15:14 Last Admin: 09/16/20 15:26 Dose: 40 mg Documented by: [id number] Sodium Chloride (Nss 1000ml) 500 mls @ 999 mls/hr IV .Q31M ONE Stop: 09/16/20 14:48 Last Admin: 09/16/20 15:21 Dose: Not Given Documented by: [id number] Magnesium Sulfate/Dextrose (Magnesium Sulfate / D5w) 1 gm in 100 mls @ 100 mls/hr IV NOW STA Stop: 09/16/20 15:35 Last Admin: 09/16/20 15:26 Dose: 100 mls/hr Documented by: [id number] Ketorolac Tromethamine (Ketorolac Tromethamine 15 Mg/Ml Vial) 10 mg IV NOW STA Stop: 09/16/20 14:16 Last Admin: 09/16/20 15:11 Dose: 10 mg Documented by: [id number] Magnesium Oxide (Magnesium Oxide 400 Mg Tab) 400 mg PO NOW STA Stop: 09/16/20 14:37 Last Admin: 09/16/20 15:11 Dose: 400 mg Documented by: [id number] ECG Rate (beats per minute): 93 Rhythm: normal sinus Findings: + PAC COVID-19 Results Results COVID-19 Adm Lab Results: RBC 3.91 M/uL (4.2-5.4) L 09/16/20 WBC 9.54 K/uL (4.8-10.8) 09/16/20 Hgb 10.3 g/dL (12.0-16.0) L 09/16/20 Hct 35.8 % (37-47) L 09/16/20 Plt Count 138 K/uL (130-400) 09/16/20 Neutrophils (%) (Auto) 77.6 % 09/16/20 Lymphocytes (%) (Auto) 11.3 % 09/16/20 Monocytes # (Auto) 0.72 K/uL (0.11-0.59) H 09/16/20 Eosinophils # (Auto) 0.16 K/uL (0-0.5) 09/16/20 Immature Granulocyte % (Auto) 1.7 % 09/16/20 Neutrophils # (Auto) 7.40 K/uL (1.4-6.5) H 09/16/20 Lymphocytes # (Auto) 1.08 K/uL (1.2-3.4) L 09/16/20 Monocytes # (Auto) 0.72 K/uL (0.11-0.59) H 09/16/20 Eosinophils # (Auto) 0.16 K/uL (0-0.5) 09/16/20 Basophils # (Auto) 0.02 K/uL (0-0.2) 09/16/20 Immature Granulocyte # (Auto) 0.16 K/uL (0.00-0.02) H 09/16/20 Polychromasia 1+ 09/16/20 Hypochromasia Present 09/16/20 Basophilic Stippling 1+ 09/16/20 Stomatocytes 1+ 09/16/20 Na 141 mmol/L (136-145) 09/16/20 K 3.6 mmol/L (3.5-5.1) 09/16/20 Cl 103 mmol/L (98-107) 09/16/20 Anion Gap 2.0 (3-11) L 09/16/20 BUN 15 mg/dl (7-18) 09/16/20 Creatinine 0.66 mg/dl (0.6-1.2) 09/16/20 BUN/Creatinine Ratio 22.8 (10-20) H 09/16/20 Glucose Level 149 mg/dl (70-99) H 09/16/20 Ca 7.9 mg/dl (8.5-10.1) L 09/16/20 Total Bilirubin 0.4 mg/dl (0.2-1) 09/16/20 AST/SGOT 8 U/L (15-37) L 09/16/20 ALT/SGPT 10 U/L (12-78) L 09/16/20 Alkaline Phosphatase 85 U/L (45-117) 09/16/20 Total Protein 6.4 gm/dl (6.4-8.2) 09/16/20 Albumin 2.7 gm/dl (3.4-5.0) L 09/16/20 Globulin 3.7 gm/dl (2.5-4.0) 09/16/20 Albumin/Globulin Ratio 0.7 (0.9-2) L 09/16/20 Troponin I < 0.015 ng/ml (0-0.045) 09/16/20 EC-Pid-I-Type Natriuretic Pep 1149 pg/ml (0-900) H 09/16/20 Procalcitonin 0.54 ng/ml (0-0.5) H 09/16/20 PTT 26.8 Seconds (21.0-31.0) 09/16/20 INR 1.0 (0.9-1.1) 09/16/20 COVID-19 PCR NEGATIVE (Negative) 09/16/20 ABG pH 7.25 (7.35-7.45) L 09/16/20 ABG pCO2 86 mmHg (35-46) H 09/16/20 ABG pO2 93 mmHg (80-95) 09/16/20 ABG HCO3 37 mmol/L (19-24) H 09/16/20 ABG O2 Saturation 95.9 % (90-95) H 09/16/20 ABG Base Excess 7.3 mEq/L (-9-1.8) H 09/16/20 Chest X-Ray 09/16/20 Code Status & VTE Plan Code Status Full Code VTE Prophylaxis Plan VTE Prophylaxis will be ordered: Yes Supervising Physician Co-Signing Physician Notes Attending addendum: The patient was seen and examined in emergency room in presence of the . She is a chronically ill bedbound 69-year-old female who has significant past medical history of chronic respiratory failure on 4 L of O2, central sleep apnea, obesity hypoventilation syndrome, chronic diastolic CHF, COPD, cerebrovascular disease, IDDM type II, HTN, HLD, chronic pain syndrome, recurrent UTI who presents to ED secondary to shortness with and hypoxia for 3 to 4 days. 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 Generally very weak and lethargic Her admission labs, EKG and imaging studies reviewed Has CHF with bilateral pleural effusion. Acute on chronic hypercarbic respiratory failure with history of sleep apnea and COPD. Recurrent UTI We will start intravenous Lasix and BiPAP Cardiology consult, PT OT evaluation for placement Agree with assessment and plan as outlined above by BROOKS Tavares DR (1) Anemia Anemia type: unspecified type Qualified Code(s): D64.9 - Anemia, unspecified
[2020-09-16] MEDS ORDERED: HYDROmorphone INJ 0.5 MG/0.5 ML SYR IV STA (16:36)
[2020-09-16] MEDS ORDERED: FUROSEMIDE 40 MG/4 ML VIAL IV SCH (17:00)
[2020-09-16] MEDS ORDERED: INSULIN HUMAN NPH SC SCH (21:03)
[2020-09-16] MEDS ORDERED: MAGNESIUM HYDROXIDE SUSP 30 ML UDC PO PRN (21:03)
[2020-09-16] MEDS ORDERED: POLYETHYLENE (MIRALAX) 17 GM PACK PO PRN (21:03)
[2020-09-16] MEDS ORDERED: ALUMINUM/MAGNESIUM SUSP 30 ML UDC PO PRN (21:03)
[2020-09-16] MEDS ORDERED: DEXTROSE 50% 50 ML SYRINGE IV PRN (21:03)
[2020-09-16] MEDS ORDERED: GLUCOSE 10 TABS/TUBE PO PRN (21:03)
[2020-09-16] MEDS ORDERED: GLUCAGON FOR INJ 1 MG VIAL SQ PRN (21:03)
[2020-09-16] MEDS ORDERED: CARBOHYDRATES FOR HYPOGLYCEMIA PO PRN (21:03)
[2020-09-16] MEDS ORDERED: GLUCOSE 40% GEL 15 GM TUBE PO PRN (21:03)
[2020-09-16] MEDS ORDERED: ONDANSETRON INJ 2 MG/ML 2 ML VIAL IV PRN (21:03)
[2020-09-16] MEDS ORDERED: ALBUTEROL 0.083% NEBU SOLN 3 ML VIAL INH PRN (21:03)
[2020-09-16] MEDS ORDERED: CeleBREX 200 MG CAP PO PRN (21:03)
[2020-09-16] MEDS ORDERED: PHARMACY GLYCEMIC MGMT CONSULT PRN (21:15)
[2020-09-16] MEDS ORDERED: MEROPENEM CONSULT ACITVE PRN (21:25)
[2020-09-16 21:29] LABS: Base Excess VBG 9.5 mEq/L; HCO3 VBG 38 mmol/L; PCO2 VBG 74 mmHg (38-50); PO2 VBG 29 mmHg; pH VBG 7.32 (7.36-7.41)
[2020-09-16 21:32] LABS: Oxygen Saturation VBG < 60.0 %
[2020-09-16] MEDS: INSULIN ASPART 100 UNITS/ML 3 ML PEN SC SCH (21:50)
[2020-09-16] MEDS: METOPROLOL TARTRATE 25 MG TAB PO SCH (22:16)
[2020-09-16] MEDS: MONTELUKAST SODIUM 10 MG TABLET PO SCH (22:16)
[2020-09-16] MEDS: SIMVASTATIN 20 MG TAB PO SCH (22:16)
[2020-09-16] MEDS: ursodioL 300 MG CAP PO SCH (22:16)
[2020-09-16] MEDS: POTASSIUM CHLORIDE CRTAB 20 MEQ TABCR PO SCH (22:16)
[2020-09-16] MEDS: MIRTAZAPINE SOLTAB 15 MG PO SCH (22:16)
[2020-09-16] MEDS: MEROPENEM 500 MG in SYRINGE 0 ML IV SCH (22:17)
[2020-09-16] MEDS: NYSTATIN POWDER 15GM BTL EXT SCH (22:17)
[2020-09-16] MEDS: PREGABALIN 100 MG CAP PO SCH (22:19)
[2020-09-17] MEDS ORDERED: INSULIN ASPART 100 UNITS/ML 3 ML PEN SC SCH
[2020-09-17] MEDS: MEROPENEM 500 MG in SYRINGE 0 ML IV SCH ×3 (05:36→19:54)
[2020-09-17] MEDS: LEVOTHYROXINE SODIUM 100 MCG TABLET PO SCH (05:38)
[2020-09-17 08:02] LABS: Base Excess VBG 9.8 mEq/L; pH VBG 7.34 (7.36-7.41)
[2020-09-17 08:03] LABS: Hematocrit (blood only) 34.7 % (37-47); Hemoglobin 9.9 g/dL (12.0-16.0); Mean Corpuscular Hemoglobin 26.1 pg (25-34); Mean Corpuscular Hgb Conc 28.5 g/dL (32-36); Mean Corpuscular Volume 91.6 fL (80-100); Mean Platelet Volume 10.3 fL (7.4-10.4); Platelet Count 132 K/uL (130-400); RDW Coefficient of Variation 17.5 % (11.5-14.5); RDW Standard Deviation 58.4 fL (36.4-46.3); Red Blood Count 3.79 M/uL (4.2-5.4)
[2020-09-17 08:06] LABS: Basophils # (auto) 0.01 K/uL (0-0.2); Basophils % (auto) 0.1 %; Eosinophils # (auto) 0.19 K/uL (0-0.5); Eosinophils % (auto) 2.3 %; Immature Granulocytes # (auto) 0.14 K/uL (0.00-0.02); Immature Granulocytes % (auto) 1.7 %; Lymphocytes # (auto) 1.14 K/uL (1.2-3.4); Lymphocytes % (auto) 14.1 %; Monocytes # (auto) 0.65 K/uL (0.11-0.59); Neutrophils # (auto) 5.97 K/uL (1.4-6.5); Neutrophils % (auto) 73.8 %
[2020-09-17 08:26] LABS: BUN Creatinine Ratio 29.4 (10-20); Calcium 8.3 mg/dl (8.5-10.1); Creatinine Clr Calc Pharmacy 171.8 ml/min; Est GFR (African American) 114.4 ml/min; Est GFR (Non-African American) 98.7 ml/min; Magnesium 1.4 mg/dl (1.8-2.4); Potassium 3.9 mmol/L (3.5-5.1)
[2020-09-17] MEDS: INSULIN ASPART 100 UNITS/ML 3 ML PEN SC SCH ×4 (08:34→19:27)
--- NOTE | 2020-09-17 08:36 | Cardiology Consultation ---
Date of Consultation September 17, 2020 Assessment & Plan (1) Acute on chronic heart failure with preserved ejection fraction (HFpEF): (2) JOSE (obstructive sleep apnea): (3) Obesity hypoventilation syndrome: (4) HTN, goal below 140/90: (5) Palpitations: Patient remains hypervolemic on exam- responding well IV Lasix. Would continue with ongoing therapy and BMP monitoring. Patient did have episodes of asymptomatic bradycardia, possibly sinus arrhythmia in the 40s-50s, nonsustained- given her complex history will continue to monitor. 1. Continue IV lasix 40 mg twice daily and replace potassium supplementation as appropriate. Patient will likely require 1-2 more days of IV diuretic therapy. 2. Daily weights, strict I's and O's, continue Ferrell cath for accurate I&O 3. At discharge patient will likely require daily PO Lasix. 4. Would continue with biPAP therapy- will defer to hospitalist team for management. 5. Blood pressure well controlled- Continue Norvasc and metoprolol Supervising Physician Co-Signing Physician Notes Patient was seen and examined chart medications telemetry reviewed. Patient mated with combination of hypercapnic respiratory failure and decompensated diastolic heart failure/right heart failure. Plan and assessment as above We will cautiously diurese patient to approach euvolemia while treating underlying pulmonary issues History of Present Illness Reason for Consultation: Acute on Chronic HFpEF Requesting Physician: Irene Hospitalist Attending Physician: Reva Larose MD History of Present Illness Chronically ill bed bound 69 year old female admitted to [facility] due to worsening shortness of breath x4 days. Found to be hypoxic in the ED. At home patient's o2 sats were around 77-88% despite utilizing o2 4L/min. Patient was recently hospitalized secondary to acute on chronic respiratory failure with hypoxia and hypercapnia secondary to pneumonia and ESBL UTI on 08/11-08/18/2020. She required mechanical ventilation at that time. This admission: Patient was admitted to PCU and placed on Bipap. 40 mg IV lasix BID started. Upon entrance into the room patient was resting comfortably in bed. HOB elevated and patient was using one pillow. No dyspnea with speaking. No chest pain. Patient is primarily bed bound and notes that she has not been weight baring for at least five years. Utilizes a Tere lift at home and mostly sits in her recliner during the day. Denies any chest pain. Continues to have some mild orthopnea when the HOB is lowered. Lower extremity present, patient states tact it is increased from her normal. No chest pain. No palpitations, dizziness, syncope or near syncope. No fever, chills, cough, hematochezia, melena, or hemoptysis. Has been tolerating her bipap over night. During the day she is on her baseline 4L o2. Tele monitor reviewed: SR in the 60s with PACs, periods of Sinus arrhythmia where her HR drops to 40-50s, asymptomatic. Patient is negative 1300 mL. Weight this am was 158.8 kg Past Medical History 1. Palpitations, sinus tachycardia, SVT, possible PAF/Flutter, and NS-VT 2. Chronic Diastolic CHF, NYHA class 3 3. JOSE 4. H/o CVA 5. Type 2 DM 6. Obesity hypoventilation syndrome 7. Multiple drug/antibiotic allergies 8. Essential Tremor 9. HTN 10. MR 11. H/o Colon CA 12. PHILOMENA 13. Recurrent UTIs Allergies Allergy/AdvReac Type Severity Reaction Status Date / Time fluoxetine Allergy Severe ANAPHYLAXIS Verified 07/10/19 00:35 Insulins Allergy Severe LANTUS/LEVEMIR- Verified 07/10/19 00:35 HIVES/THROAT SWELLING moxifloxacin Allergy Severe HIVES Verified 07/10/19 00:35 nitrofurantoin Allergy Severe HIVES Verified 07/10/19 00:35 paroxetine Allergy Severe HIVES Verified 07/10/19 00:35 Quinolones Allergy Severe AVELOX & Verified 07/10/19 00:35 LEVAQUIN-HIVES amitriptyline Allergy Intermediate Sweats and Verified 07/10/19 00:35 itching buspirone Allergy Intermediate HIVES Verified 07/10/19 00:35 cephalexin Allergy Intermediate Hives Verified 07/10/19 00:35 citalopram Allergy Intermediate HIVES-RASH Verified 07/10/19 00:35 escitalopram Allergy Intermediate HIVES-RASH Verified 07/10/19 00:35 levofloxacin Allergy Intermediate Hives Verified 07/10/19 00:35 methadone Allergy Intermediate HIVES Verified 07/10/19 00:35 Penicillins Allergy Intermediate RASH,HIVES Verified 07/10/19 00:35 Serotonin 5HT-3 Antagonists Allergy Intermediate MIGRAINES Verified 07/10/19 00:35 TO SSRIs trazodone Allergy Intermediate BLOODY Verified 07/10/19 00:35 NOSE, HEADACHES,HIVES vancomycin Allergy Intermediate HIVES Verified 07/10/19 00:35 prednisone Allergy Mild CHEST Verified 07/10/19 00:35 TIGHTNESS carbamazepine Allergy Unknown HIVES-RASH- Verified 07/10/19 00:35 ITCHINESS cefepime Allergy Unknown face & arm Verified 07/10/19 00:35 redness/itching after 2nd or 3rd dose cefepime ceftriaxone Allergy Unknown Received Verified 07/10/19 00:35 in MTU (but needed benadryl for course of therapy Cipro Allergy Unknown ABD PAINS Verified 09/08/17 09:10 ciprofloxacin Allergy Unknown ABD PAINS Verified 07/10/19 00:35 sertraline Allergy Unknown UNKNOWN Verified 07/10/19 00:35 sitagliptin Allergy Unknown HIVES Verified 07/10/19 00:35 azithromycin Allergy Hives Verified 07/10/19 00:35 Cephalosporins Allergy Hives Verified 07/10/19 00:35 metformin [From [facility]] Allergy Unknown Verified 07/10/19 00:35 Tetracyclines AdvReac Severe HIVES Verified 07/10/19 00:35 Sulfa (Sulfonamide AdvReac Intermediate MIGRAINES Verified 07/10/19 00:35 Antibiotics) fexofenadine AdvReac Mild GI SYMPTOMS Verified 07/10/19 00:35 tizanidine AdvReac Mild ITCHING-HIV Verified 07/10/19 00:35 ES gentamicin AdvReac Unknown UNKNOWN Verified 07/10/19 00:35 lorazepam AdvReac Unknown Verified 07/10/19 00:35 blood Allergy Severe Anaphylaxis Uncoded 10/25/19 07:53 Home Medications Medication Instructions Recorded Confirmed Type celecoxib 200 mg capsule (Celebrex) 200 mg PO DAILY PRN 10/24/19 09/16/20 History duloxetine 30 mg capsule,delayed 30 mg PO DAILY 10/24/19 09/16/20 History release levothyroxine 100 mcg tablet 100 mcg PO DAILYBB 10/24/19 09/16/20 History montelukast 10 mg tablet 10 mg PO HS 10/24/19 09/16/20 History nystatin 100,000 unit/gram topical 1 applic TOPICAL TID 10/24/19 09/16/20 History powder (Nyamyc) simvastatin 20 mg tablet 20 mg PO HS 10/24/19 09/16/20 History sumatriptan succinate 100 mg tablet 100 mg PO UD PRN MDD 2 10/24/19 09/16/20 History ursodiol 300 mg capsule 600 mg PO BIDM 10/24/19 09/16/20 History albuterol sulfate 2.5 mg CONTINUOUS NEBULIZATION Q6H 08/11/20 09/16/20 History PRN duloxetine 60 mg capsule,delayed 60 mg PO DAILY 08/11/20 09/16/20 History release empagliflozin 25 mg tablet 25 mg PO QAM 08/11/20 09/16/20 History (Jardiance) folic acid 1 mg tablet 1 mg PO DAILY 08/11/20 09/16/20 History hydroxyzine pamoate 25 mg capsule 25 mg PO TID PRN 08/11/20 09/16/20 History insulin degludec 200 unit/mL (3 68 unit SUBCUT BID 08/11/20 09/16/20 History mL) subcutaneous pen (Tresiba FlexTouch U-200 insulin) insulin regular human 100 unit/mL 30 unit SUBCUT .LUNCH 08/11/20 09/16/20 History injection solution (Novolin R Regular U-100 Insulin) insulin regular human 100 unit/mL 40 unit SUBCUT .EVENING MEAL 08/11/20 09/16/20 History injection solution (Novolin R Regular U-100 Insulin) insulin regular human 100 unit/mL 70 unit SUBCUT .BREAKFAST 08/11/20 09/16/20 History injection solution (Novolin R Regular U-100 Insulin) ketoconazole 2 % topical cream 1 applic TOPICAL BID 08/11/20 09/16/20 History levocetirizine 5 mg tablet 5 mg PO HS PRN 08/11/20 09/16/20 History metformin 500 mg tablet,extended 500 mg PO DAILY 08/11/20 09/16/20 History release 24 hr mirtazapine 45 mg tablet 45 mg PO HS 08/11/20 09/16/20 History guaifenesin 200 mg tablet 200 mg PO TID PRN #15 tab 08/18/20 09/16/20 Rx metoprolol tartrate 25 mg tablet 25 mg PO BID #60 tab 08/18/20 09/16/20 Rx amlodipine 2.5 mg tablet 2.5 mg PO DAILY 09/16/20 09/16/20 History cyanocobalamin (vitamin B-12) 1,000 mcg PO DAILY 09/16/20 09/16/20 History 1,000 mcg tablet ferrous sulfate 325 mg (65 mg 325 mg PO DAILY 09/16/20 09/16/20 History iron) tablet furosemide 40 mg tablet 40 mg PO QAM PRN 09/16/20 09/16/20 History potassium chloride 10 mEq 10 meq PO DAILY PRN 09/16/20 09/16/20 History capsule,extended release pregabalin 100 mg capsule 100 mg PO TID 09/16/20 09/16/20 History Patient History Medical History Acute on chronic respiratory failure with hypoxia and hypercapnia Cerebrovascular disease "history left thalamic stroke" CHF (congestive heart failure) Chronic hypercapnic respiratory failure Chronic pain disorder (01/24/14) COPD (chronic obstructive pulmonary disease) Cough with hemoptysis CVA (cerebral vascular accident) hx of L thalamus CVA Diabetes mellitus, type II Dyslipidemia Encephalopathy acute HLD (hyperlipidemia) Hypertension Hypertension Hypertrophic cardiomyopathy Hypothyroidism Metabolic encephalopathy Morbid obesity Morbid obesity Obesity hypoventilation syndrome JOSE (obstructive sleep apnea) Recurrent UTI Respiratory acidosis Surgical History H/O partial nephrectomy History of tonsillectomy Hx of nasal septoplasty S/P dilatation and curettage Status post tonsillectomy Family History Father Coronary heart disease Mother Diabetes Social History Smoking Status: Never smoker Second Hand Exposure: No; Hx Alcohol Use: No Hx Substance Use: No Preferred Language: [place] Communication Ability: Effective 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 A+Ox3. HEENT: Normocephalic. Atraumatic. Conjunctiva and sclera clear. NECK: Unable to assess neck veins due to body habitus Heart: Distant heart sounds, no murmur, rubs, gallops appreciated. Lungs: Course lung sounds throughout, scattered crackles and wheezing. Abdomen: Obese, taut, nontender Extremities: +2 lower extremity edema, +3 pedal edema. No clubbing or cyanosis. Pulses: radial=2/4, posterior tibial=2/4, dorsalis pedis = 2/4. NEURO: No focal deficits. PSYCH: Normal. Results & Data ([facility]) Vital Signs (Past 12 Hours) Vital Signs Temp Pulse Pulse Resp BP Pulse Ox 09/17/20 04:06 36.6 C 68 20 126/69 92 09/17/20 03:36 91 H 28 H 60 L 09/16/20 23:37 36.5 C 63 18 126/59 L 88 L 09/16/20 23:14 95 H 22 93 09/16/20 20:24 36.8 C 86 20 158/55 H 91 Laboratory Results 09/17/20 09/17/20 09/17/20 Range/Units 07:50 07:40 07:40 WBC 8.10 (4.8-10.8) K/uL RBC 3.79 L (4.2-5.4) M/uL Hgb 9.9 L (12.0-16.0) g/dL Hct 34.7 L (37-47) % MCV 91.6 (80-100) fL MCH 26.1 (25-34) pg MCHC 28.5 L (32-36) g/dL RDW Std Deviation 58.4 H (36.4-46.3) fL RDW Coeff of Duy 17.5 H (11.5-14.5) % Plt Count 132 (130-400) K/uL MPV 10.3 (7.4-10.4) fL Immature Gran % (Auto) 1.7 % Neut % (Auto) 73.8 % Lymph % (Auto) 14.1 % [place] % (Auto) 8.0 % Eos % (Auto) 2.3 % Baso % (Auto) 0.1 % Neut # (Auto) 5.97 (1.4-6.5) K/uL Lymph # (Auto) 1.14 L (1.2-3.4) K/uL [place] # (Auto) 0.65 H (0.11-0.59) K/uL Eos # (Auto) 0.19 (0-0.5) K/uL Baso # (Auto) 0.01 (0-0.2) K/uL Immature Gran # (Auto) 0.14 H (0.00-0.02) K/uL Polychromasia Hypochromasia Basophilic Stippling Stomatocytes PT (9.0-12.0) Seconds INR (0.9-1.1) APTT (21.0-31.0) Seconds PTT Ratio ABG pH (7.35-7.45) ABG pCO2 (35-46) mmHg ABG pO2 (80-95) mmHg ABG HCO3 (19-24) mmol/L ABG O2 Saturation (90-95) % ABG Base Excess (-9-1.8) mEq/L Bill Test (Pos) VBG pH 7.34 L (7.36-7.41) VBG pCO2 70 H (38-50) mmHg VBG pO2 64 mmHg VBG HCO3 37 mmol/L VBG O2 Saturation 91.0 % VBG Base Excess 9.8 mEq/L Barometric Pressure 733.9 mm/Hg Oxygen Given Sodium 142 (136-145) mmol/L Potassium 3.9 (3.5-5.1) mmol/L Chloride 104 (98-107) mmol/L Carbon Dioxide 37 H (21-32) mmol/L Anion Gap 1.0 L (3-11) BUN 14 (7-18) mg/dl Creatinine 0.49 L (0.6-1.2) mg/dl Est Cr Clr Drug Dosing 171.8 Est GFR ( Amer) 114.4 ml/min Est GFR (Non-Af Amer) 98.7 ml/min BUN/Creatinine Ratio 29.4 H (10-20) Glucose 106 H (70-99) mg/dl POC Glucose (70-99) mg/dl Calcium 8.3 L (8.5-10.1) mg/dl Magnesium 1.4 L (1.8-2.4) mg/dl Total Bilirubin (0.2-1) mg/dl AST (15-37) U/L ALT (12-78) U/L Alkaline Phosphatase (45-117) U/L Troponin I (0-0.045) ng/ml NT-Pro-B Natriuret Pep (0-900) pg/ml Total Protein (6.4-8.2) gm/dl Albumin (3.4-5.0) gm/dl Globulin (2.5-4.0) gm/dl Albumin/Globulin Ratio (0.9-2) Procalcitonin (0-0.5) ng/ml Urine Color Urine Appearance (Clear) Urine pH (4.5-7.5) Ur Specific [place] (1.000-1.030) Urine Protein (Negative) Urine Glucose (UA) (Negative) Urine Ketones (Negative) Urine Blood (Negative) Urine Nitrite (Negative) Urine Bilirubin (Negative) Urine Urobilinogen (Negative) Ur Leukocyte Esterase (Negative) Urine WBC (Auto) (0-5) /hpf Urine RBC (Auto) (0-4) /hpf U Hyaline Cast (Auto) (0-5) /lpf U Epithel Cells (Auto) (0-5) /lpf Urine Bacteria (Auto) (Negative) COVID-19 Eval Order SARS-CoV-2 (PCR) (Negative) 09/17/20 09/17/20 09/16/20 Range/Units 07:15 03:54 23:47 WBC (4.8-10.8) K/uL RBC (4.2-5.4) M/uL Hgb (12.0-16.0) g/dL Hct (37-47) % MCV (80-100) fL MCH (25-34) pg MCHC (32-36) g/dL RDW Std Deviation (36.4-46.3) fL RDW Coeff of Duy (11.5-14.5) % Plt Count (130-400) K/uL MPV (7.4-10.4) fL Immature Gran % (Auto) % Neut % (Auto) % Lymph % (Auto) % [place] % (Auto) % Eos % (Auto) % Baso % (Auto) % Neut # (Auto) (1.4-6.5) K/uL Lymph # (Auto) (1.2-3.4) K/uL [place] # (Auto) (0.11-0.59) K/uL Eos # (Auto) (0-0.5) K/uL Baso # (Auto) (0-0.2) K/uL Immature Gran # (Auto) (0.00-0.02) K/uL Polychromasia Hypochromasia Basophilic Stippling Stomatocytes PT (9.0-12.0) Seconds INR (0.9-1.1) APTT (21.0-31.0) Seconds PTT Ratio ABG pH (7.35-7.45) ABG pCO2 (35-46) mmHg ABG pO2 (80-95) mmHg ABG HCO3 (19-24) mmol/L ABG O2 Saturation (90-95) % ABG Base Excess (-9-1.8) mEq/L Bill Test (Pos) VBG pH (7.36-7.41) VBG pCO2 (38-50) mmHg VBG pO2 mmHg VBG HCO3 mmol/L VBG O2 Saturation % VBG Base Excess mEq/L Barometric Pressure mm/Hg Oxygen Given Sodium (136-145) mmol/L Potassium (3.5-5.1) mmol/L Chloride (98-107) mmol/L Carbon Dioxide (21-32) mmol/L Anion Gap (3-11) BUN (7-18) mg/dl Creatinine (0.6-1.2) mg/dl Est Cr Clr Drug Dosing Est GFR ( Amer) ml/min Est GFR (Non-Af Amer) ml/min BUN/Creatinine Ratio (10-20) Glucose (70-99) mg/dl POC Glucose 104 H 94 96 (70-99) mg/dl Calcium (8.5-10.1) mg/dl Magnesium (1.8-2.4) mg/dl Total Bilirubin (0.2-1) mg/dl AST (15-37) U/L ALT (12-78) U/L Alkaline Phosphatase (45-117) U/L Troponin I (0-0.045) ng/ml NT-Pro-B Natriuret Pep (0-900) pg/ml Total Protein (6.4-8.2) gm/dl Albumin (3.4-5.0) gm/dl Globulin (2.5-4.0) gm/dl Albumin/Globulin Ratio (0.9-2) Procalcitonin (0-0.5) ng/ml Urine Color Urine Appearance (Clear) Urine pH (4.5-7.5) Ur Specific [place] (1.000-1.030) Urine Protein (Negative) Urine Glucose (UA) (Negative) Urine Ketones (Negative) Urine Blood (Negative) Urine Nitrite (Negative) Urine Bilirubin (Negative) Urine Urobilinogen (Negative) Ur Leukocyte Esterase (Negative) Urine WBC (Auto) (0-5) /hpf Urine RBC (Auto) (0-4) /hpf U Hyaline Cast (Auto) (0-5) /lpf U Epithel Cells (Auto) (0-5) /lpf Urine Bacteria (Auto) (Negative) COVID-19 Eval Order SARS-CoV-2 (PCR) (Negative) 09/16/20 09/16/20 09/16/20 Range/Units 21:15 21:09 15:23 WBC (4.8-10.8) K/uL RBC (4.2-5.4) M/uL Hgb (12.0-16.0) g/dL Hct (37-47) % MCV (80-100) fL MCH (25-34) pg MCHC (32-36) g/dL RDW Std Deviation (36.4-46.3) fL RDW Coeff of Duy (11.5-14.5) % Plt Count (130-400) K/uL MPV (7.4-10.4) fL Immature Gran % (Auto) % Neut % (Auto) % Lymph % (Auto) % [place] % (Auto) % Eos % (Auto) % Baso % (Auto) % Neut # (Auto) (1.4-6.5) K/uL Lymph # (Auto) (1.2-3.4) K/uL [place] # (Auto) (0.11-0.59) K/uL Eos # (Auto) (0-0.5) K/uL Baso # (Auto) (0-0.2) K/uL Immature Gran # (Auto) (0.00-0.02) K/uL Polychromasia Hypochromasia Basophilic Stippling Stomatocytes PT (9.0-12.0) Seconds INR (0.9-1.1) APTT (21.0-31.0) Seconds PTT Ratio ABG pH (7.35-7.45) ABG pCO2 (35-46) mmHg ABG pO2 (80-95) mmHg ABG HCO3 (19-24) mmol/L ABG O2 Saturation (90-95) % ABG Base Excess (-9-1.8) mEq/L Bill Test (Pos) VBG pH 7.32 L (7.36-7.41) VBG pCO2 74 H (38-50) mmHg VBG pO2 29 mmHg VBG HCO3 38 mmol/L VBG O2 Saturation < 60.0 % VBG Base Excess 9.5 mEq/L Barometric Pressure 734.2 mm/Hg Oxygen Given Sodium (136-145) mmol/L Potassium (3.5-5.1) mmol/L Chloride (98-107) mmol/L Carbon Dioxide (21-32) mmol/L Anion Gap (3-11) BUN (7-18) mg/dl Creatinine (0.6-1.2) mg/dl Est Cr Clr Drug Dosing Est GFR ( Amer) ml/min Est GFR (Non-Af Amer) ml/min BUN/Creatinine Ratio (10-20) Glucose (70-99) mg/dl POC Glucose 102 H (70-99) mg/dl Calcium (8.5-10.1) mg/dl Magnesium (1.8-2.4) mg/dl Total Bilirubin (0.2-1) mg/dl AST (15-37) U/L ALT (12-78) U/L Alkaline Phosphatase (45-117) U/L Troponin I (0-0.045) ng/ml NT-Pro-B Natriuret Pep (0-900) pg/ml Total Protein (6.4-8.2) gm/dl Albumin (3.4-5.0) gm/dl Globulin (2.5-4.0) gm/dl Albumin/Globulin Ratio (0.9-2) Procalcitonin (0-0.5) ng/ml Urine Color Urine Appearance (Clear) Urine pH (4.5-7.5) Ur Specific [place] (1.000-1.030) Urine Protein (Negative) Urine Glucose (UA) (Negative) Urine Ketones (Negative) Urine Blood (Negative) Urine Nitrite (Negative) Urine Bilirubin (Negative) Urine Urobilinogen (Negative) Ur Leukocyte Esterase (Negative) Urine WBC (Auto) (0-5) /hpf Urine RBC (Auto) (0-4) /hpf U Hyaline Cast (Auto) (0-5) /lpf U Epithel Cells (Auto) (0-5) /lpf Urine Bacteria (Auto) (Negative) COVID-19 Eval Order SARS-CoV-2 (PCR) NEGATIVE (Negative) 09/16/20 09/16/20 09/16/20 Range/Units 15:23 15:21 13:32 WBC (4.8-10.8) K/uL RBC (4.2-5.4) M/uL Hgb (12.0-16.0) g/dL Hct (37-47) % MCV (80-100) fL MCH (25-34) pg MCHC (32-36) g/dL RDW Std Deviation (36.4-46.3) fL RDW Coeff of Duy (11.5-14.5) % Plt Count (130-400) K/uL MPV (7.4-10.4) fL Immature Gran % (Auto) % Neut % (Auto) % Lymph % (Auto) % [place] % (Auto) % Eos % (Auto) % Baso % (Auto) % Neut # (Auto) (1.4-6.5) K/uL Lymph # (Auto) (1.2-3.4) K/uL [place] # (Auto) (0.11-0.59) K/uL Eos # (Auto) (0-0.5) K/uL Baso # (Auto) (0-0.2) K/uL Immature Gran # (Auto) (0.00-0.02) K/uL Polychromasia Hypochromasia Basophilic Stippling Stomatocytes PT (9.0-12.0) Seconds INR (0.9-1.1) APTT (21.0-31.0) Seconds PTT Ratio ABG pH 7.25 L (7.35-7.45) ABG pCO2 86 H (35-46) mmHg ABG pO2 93 (80-95) mmHg ABG HCO3 37 H (19-24) mmol/L ABG O2 Saturation 95.9 H (90-95) % ABG Base Excess 7.3 H (-9-1.8) mEq/L Bill Test Pos (Pos) VBG pH (7.36-7.41) VBG pCO2 (38-50) mmHg VBG pO2 mmHg VBG HCO3 mmol/L VBG O2 Saturation % VBG Base Excess mEq/L Barometric Pressure 734.0 mm/Hg Oxygen Given 4% Sodium (136-145) mmol/L Potassium (3.5-5.1) mmol/L Chloride (98-107) mmol/L Carbon Dioxide (21-32) mmol/L Anion Gap (3-11) BUN (7-18) mg/dl Creatinine (0.6-1.2) mg/dl Est Cr Clr Drug Dosing Est GFR ( Amer) ml/min Est GFR (Non-Af Amer) ml/min BUN/Creatinine Ratio (10-20) Glucose (70-99) mg/dl POC Glucose (70-99) mg/dl Calcium (8.5-10.1) mg/dl Magnesium (1.8-2.4) mg/dl Total Bilirubin (0.2-1) mg/dl AST (15-37) U/L ALT (12-78) U/L Alkaline Phosphatase (45-117) U/L Troponin I (0-0.045) ng/ml NT-Pro-B Natriuret Pep (0-900) pg/ml Total Protein (6.4-8.2) gm/dl Albumin (3.4-5.0) gm/dl Globulin (2.5-4.0) gm/dl Albumin/Globulin Ratio (0.9-2) Procalcitonin (0-0.5) ng/ml Urine Color Yellow Urine Appearance Cloudy A (Clear) Urine pH 6.5 (4.5-7.5) Ur Specific [place] 1.007 (1.000-1.030) Urine Protein 1+ H (Negative) Urine Glucose (UA) 1+ H (Negative) Urine Ketones Negative (Negative) Urine Blood Trace H (Negative) Urine Nitrite Positive A (Negative) Urine Bilirubin Negative (Negative) Urine Urobilinogen Negative (Negative) Ur Leukocyte Esterase 3+ H (Negative) Urine WBC (Auto) >30 H (0-5) /hpf Urine RBC (Auto) 0-4 (0-4) /hpf U Hyaline Cast (Auto) 1-5 (0-5) /lpf U Epithel Cells (Auto) 5-10 H (0-5) /lpf Urine Bacteria (Auto) 4+ H (Negative) COVID-19 Eval Order Covid19 at [facility] SARS-CoV-2 (PCR) (Negative) 09/16/20 09/16/20 09/16/20 Range/Units 13:04 13:04 13:04 WBC (4.8-10.8) K/uL RBC (4.2-5.4) M/uL Hgb (12.0-16.0) g/dL Hct (37-47) % MCV (80-100) fL MCH (25-34) pg MCHC (32-36) g/dL RDW Std Deviation (36.4-46.3) fL RDW Coeff of Duy (11.5-14.5) % Plt Count (130-400) K/uL MPV (7.4-10.4) fL Immature Gran % (Auto) % Neut % (Auto) % Lymph % (Auto) % [place] % (Auto) % Eos % (Auto) % Baso % (Auto) % Neut # (Auto) (1.4-6.5) K/uL Lymph # (Auto) (1.2-3.4) K/uL [place] # (Auto) (0.11-0.59) K/uL Eos # (Auto) (0-0.5) K/uL Baso # (Auto) (0-0.2) K/uL Immature Gran # (Auto) (0.00-0.02) K/uL Polychromasia Hypochromasia Basophilic Stippling Stomatocytes PT (9.0-12.0) Seconds INR (0.9-1.1) APTT (21.0-31.0) Seconds PTT Ratio ABG pH (7.35-7.45) ABG pCO2 (35-46) mmHg ABG pO2 (80-95) mmHg ABG HCO3 (19-24) mmol/L ABG O2 Saturation (90-95) % ABG Base Excess (-9-1.8) mEq/L Bill Test (Pos) VBG pH (7.36-7.41) VBG pCO2 (38-50) mmHg VBG pO2 mmHg VBG HCO3 mmol/L VBG O2 Saturation % VBG Base Excess mEq/L Barometric Pressure mm/Hg Oxygen Given Sodium 141 (136-145) mmol/L Potassium 3.6 (3.5-5.1) mmol/L Chloride 103 (98-107) mmol/L Carbon Dioxide 35 H (21-32) mmol/L Anion Gap 2.0 L (3-11) BUN 15 (7-18) mg/dl Creatinine 0.66 (0.6-1.2) mg/dl Est Cr Clr Drug Dosing Not Reportable Est GFR ( Amer) 103.7 ml/min Est GFR (Non-Af Amer) 89.5 ml/min BUN/Creatinine Ratio 22.8 H (10-20) Glucose 149 H (70-99) mg/dl POC Glucose (70-99) mg/dl Calcium 7.9 L (8.5-10.1) mg/dl Magnesium 1.6 L (1.8-2.4) mg/dl Total Bilirubin 0.4 (0.2-1) mg/dl AST 8 L (15-37) U/L ALT 10 L (12-78) U/L Alkaline Phosphatase 85 (45-117) U/L Troponin I < 0.015 (0-0.045) ng/ml NT-Pro-B Natriuret Pep 1149 H (0-900) pg/ml Total Protein 6.4 (6.4-8.2) gm/dl Albumin 2.7 L (3.4-5.0) gm/dl Globulin 3.7 (2.5-4.0) gm/dl Albumin/Globulin Ratio 0.7 L (0.9-2) Procalcitonin 0.54 H (0-0.5) ng/ml Urine Color Urine Appearance (Clear) Urine pH (4.5-7.5) Ur Specific [place] (1.000-1.030) Urine Protein (Negative) Urine Glucose (UA) (Negative) Urine Ketones (Negative) Urine Blood (Negative) Urine Nitrite (Negative) Urine Bilirubin (Negative) Urine Urobilinogen (Negative) Ur Leukocyte Esterase (Negative) Urine WBC (Auto) (0-5) /hpf Urine RBC (Auto) (0-4) /hpf U Hyaline Cast (Auto) (0-5) /lpf U Epithel Cells (Auto) (0-5) /lpf Urine Bacteria (Auto) (Negative) COVID-19 Eval Order SARS-CoV-2 (PCR) (Negative) 09/16/20 09/16/20 Range/Units 13:04 13:04 WBC 9.54 (4.8-10.8) K/uL RBC 3.91 L (4.2-5.4) M/uL Hgb 10.3 L (12.0-16.0) g/dL Hct 35.8 L (37-47) % MCV 91.6 (80-100) fL MCH 26.3 (25-34) pg MCHC 28.8 L (32-36) g/dL RDW Std Deviation 59.1 H (36.4-46.3) fL RDW Coeff of Duy 17.8 H (11.5-14.5) % Plt Count 138 (130-400) K/uL MPV 10.8 H (7.4-10.4) fL Immature Gran % (Auto) 1.7 % Neut % (Auto) 77.6 % Lymph % (Auto) 11.3 % [place] % (Auto) 7.5 % Eos % (Auto) 1.7 % Baso % (Auto) 0.2 % Neut # (Auto) 7.40 H (1.4-6.5) K/uL Lymph # (Auto) 1.08 L (1.2-3.4) K/uL [place] # (Auto) 0.72 H (0.11-0.59) K/uL Eos # (Auto) 0.16 (0-0.5) K/uL Baso # (Auto) 0.02 (0-0.2) K/uL Immature Gran # (Auto) 0.16 H (0.00-0.02) K/uL Polychromasia 1+ Hypochromasia Present Basophilic Stippling 1+ Stomatocytes 1+ PT 10.4 (9.0-12.0) Seconds INR 1.0 (0.9-1.1) APTT 26.8 (21.0-31.0) Seconds PTT Ratio 1.0 ABG pH (7.35-7.45) ABG pCO2 (35-46) mmHg ABG pO2 (80-95) mmHg ABG HCO3 (19-24) mmol/L ABG O2 Saturation (90-95) % ABG Base Excess (-9-1.8) mEq/L Bill Test (Pos) VBG pH (7.36-7.41) VBG pCO2 (38-50) mmHg VBG pO2 mmHg VBG HCO3 mmol/L VBG O2 Saturation % VBG Base Excess mEq/L Barometric Pressure mm/Hg Oxygen Given Sodium (136-145) mmol/L Potassium (3.5-5.1) mmol/L Chloride (98-107) mmol/L Carbon Dioxide (21-32) mmol/L Anion Gap (3-11) BUN (7-18) mg/dl Creatinine (0.6-1.2) mg/dl Est Cr Clr Drug Dosing Est GFR ( Amer) ml/min Est GFR (Non-Af Amer) ml/min BUN/Creatinine Ratio (10-20) Glucose (70-99) mg/dl POC Glucose (70-99) mg/dl Calcium (8.5-10.1) mg/dl Magnesium (1.8-2.4) mg/dl Total Bilirubin (0.2-1) mg/dl AST (15-37) U/L ALT (12-78) U/L Alkaline Phosphatase (45-117) U/L Troponin I (0-0.045) ng/ml NT-Pro-B Natriuret Pep (0-900) pg/ml Total Protein (6.4-8.2) gm/dl Albumin (3.4-5.0) gm/dl Globulin (2.5-4.0) gm/dl Albumin/Globulin Ratio (0.9-2) Procalcitonin (0-0.5) ng/ml Urine Color Urine Appearance (Clear) Urine pH (4.5-7.5) Ur Specific [place] (1.000-1.030) Urine Protein (Negative) Urine Glucose (UA) (Negative) Urine Ketones (Negative) Urine Blood (Negative) Urine Nitrite (Negative) Urine Bilirubin (Negative) Urine Urobilinogen (Negative) Ur Leukocyte Esterase (Negative) Urine WBC (Auto) (0-5) /hpf Urine RBC (Auto) (0-4) /hpf U Hyaline Cast (Auto) (0-5) /lpf U Epithel Cells (Auto) (0-5) /lpf Urine Bacteria (Auto) (Negative) COVID-19 Eval Order SARS-CoV-2 (PCR) (Negative) Diagnostic Findings EKG 09/16/2020 ST with PACs 93 bpm Echo 10/27/2019 LVEF 65-70% Grade 1 diastolic dysfunction right ventricle normal in size Trace TR
[2020-09-17] MEDS: DULoxetine HCL 60 MG CAP PO SCH (08:39)
[2020-09-17] MEDS: NYSTATIN POWDER 15GM BTL EXT SCH ×3 (08:39→19:31)
[2020-09-17] MEDS: FOLIC ACID 1 MG TAB PO SCH (08:39)
[2020-09-17] MEDS: MAGNESIUM OXIDE 400 MG TAB PO SCH (08:39)
[2020-09-17] MEDS: POTASSIUM CHLORIDE CRTAB 20 MEQ TABCR PO SCH ×2 (08:40→19:31)
[2020-09-17] MEDS: CYANOCOBALAMIN 500 MCG TABLET (VITAMIN B-12) PO SCH (08:41)
[2020-09-17] MEDS: DULoxetine HCL 30 MG CAP PO SCH (08:41)
[2020-09-17] MEDS: FERROUS SULFATE 325 MG TAB PO SCH (08:41)
[2020-09-17] MEDS: amLODIPine BESYLATE 5 MG TAB PO SCH (08:41)
[2020-09-17] MEDS: METOPROLOL TARTRATE 25 MG TAB PO SCH ×2 (08:42→19:29)
[2020-09-17] MEDS ORDERED: INSULIN HUMAN NPH SC ONE (09:00)
[2020-09-17] MEDS: PREGABALIN 100 MG CAP PO SCH ×3 (09:47→19:54)
[2020-09-17] MEDS: ursodioL 300 MG CAP PO SCH ×2 (09:48→17:08)
[2020-09-17] MEDS: FUROSEMIDE 40 MG in SYRINGE 0 ML IV SCH ×2 (10:33→17:08)
--- NOTE | 2020-09-17 14:25 | Pharmacy Report ---
Pharmacy Glycemic Short Note 2 - Date of Service September 17, 2020 - Glycemic Short BSG Results (Last 24 hours): 09/16/20 09/16/20 09/17/20 21:09 23:47 03:54 Glucose POC Glucose 102 H 96 94 09/17/20 09/17/20 09/17/20 07:15 07:40 11:15 Glucose 106 H POC Glucose 104 H 155 H OUTPATIENT ANTIDIABETIC REGIMEN: * Tresiba 68 units SC BID * Regular Insulin 70 units SC w/ breakfast, 30 units SC w/ lunch, and 40 units SC w/ dinner * Metformin XR 500 mg PO daily * Jardiance 25 mg PO daily * HbA1c = 5.5% (08/13/20) ASSESSMENT: * 69 yo F admitted overnight secondary to worsening shortness of breath. Pharmacy has been consulted for assistance with inpatient glycemic management. Patient is well known to this service. * BSG last evening was 102 mg/dL. Patient has been started on Novolog based on previous admission data. * Fasting BSG was 104 mg/dL this AM. Gave a reduced dose of NPH this AM. Will continue with NPH based on previous admission data for now. PLAN FOR INPATIENT GLYCEMIC CONTROL: * Hold outpatient oral diabetes medications * Basal insulin * NPH 10 units SC x 1 this AM * NPH 20-25 units SC BIDM (starting this evening) * Bolus insulin * NovoLog per scale ACHS or Q6hrs while NPO * Goal Range: Low 110 mg/dL - High 140 mg/dL * Correction Factor: 10 mg/dL/unit * Nutritional / Prandial insulin per carb ratio of 1 unit per 3 grams CHO consumed PLAN FOR DISCHARGE: * To be determined
[2020-09-17] MEDS: MAGNESIUM SULFATE / D5W 1 GM/100 ML BAG IV SCH ×2 (14:44→16:36)
--- NOTE | 2020-09-17 15:46 | Hospitalist Progress Note ---
Date of Service September 17, 2020 Assessment & Plan (1) Chronic hypercapnic respiratory failure: (2) Respiratory acidosis: (3) Acute on chronic heart failure with preserved ejection fraction (HFpEF): (4) Obesity hypoventilation syndrome: (5) Recurrent UTI: (6) Diabetes mellitus, type II: (7) Hypertension: (8) Cerebrovascular disease: (9) COPD (chronic obstructive pulmonary disease): (10) Anemia: Plan: 69-year-old female who has significant past medical history of chronic respiratory failure on 4 L of O2, central sleep apnea, obesity hypoventilation syndrome, chronic diastolic CHF, COPD, cerebrovascular disease, IDDM type II, HTN, HLD, chronic pain syndrome, recurrent UTI who presents to ED secondary to shortness with and hypoxia for 3 to 4 days. ABG show Respiratory acidosis, mentation at baseline. pH 7.25, pCO2 86, chronic retainer in setting of Obesity hypoventilation syndrome. CXR: CHF with pulm vasc congestion, pro-BNP 1149 ( recent admission 562) B/L lower ext edema, pt unable to weigh self daily, 164.2kg on presentation, was 150.5kg at last discharge Last echocardiogram 10/27/2019 revealed EF 65 to 70%, grade 1 diastolic dysfunction Acute on Chronic respiratory failure with hypercapnia Acute on chronic HFpEF Respiratory acidosis Reported patient saturation at home was running in the low 80s while on half usual 4 L/min of nasal oxygen Continue IV Lasix 40 mg twice daily Continue Daily weights, strict I's and O's Cardiology consulted IV estrada placed VBG pH is improved to 7.34 this morning Hypomagnesemic with 1.4 mg this morning. Replete and monitor Central Sleep Apnea, Obesity Hypoventilation syndrome Continue bipap Patient uses trelegy at HS Avoid sedating and respiratory suppression drugs Recurrent UTI/Abnormal UA Recent hospital admission 08/2020 + sputum culture pseudomonas Was treated with 10 day course of meropenem, pt with multiple drug allergies UA again concerning for UTI, afebrile, wbc WNL Urine culture growing GNR We will follow up cultures Continue empirical meropenem Infectious disease was consulted on admission 03/18 to multiple drug allergies and to determine need for further antibiotic therapy. We will follow-up evaluation and recommendations Patient chest x-ray showing bilateral pleural effusion with pulmonary edema. Low suspicion for pneumonia at this time Hypomagnesemia received 1g mag sulfated in ED and oral mag ox Still hypomagnesemic. Replete and monitor IDDM 2 Pharmacy on board for glycemic control NPH, novolog per protocol Hold metforminsotero Last a1c 08/13/20 5.5 Bed bound status/ambulatory dysfunction Consult case management for discharge planning Per admitting provider, having difficult time taking care of patient at home May need placement Sacral erythema/ecchymosis Present on arrival, pressure induced secondary to bedbound status Wound care on board HTN Controlled Continue metoprolol, amlodipine Monitor Multiple Drug Allergies Patient may benefit from allergy testing to determine true allergies as pt running out of options for antibiotics COPD No acute exac prn albuterol Anemia Hemoglobin is 9.9 today. Monitor iron def - receiving monoferric at outpt DVT ppx: lovenox sq for now. Monitor FULL CODE PCP: Graciela Admission and Anticipated Discharge Date Admission Date: September 16, 2020 Subjective 69-year-old woman, morbidly obese, bedbound, chronic hypoxic respiratory failure on 4 L/min of oxygen, central sleep apnea/OHS, chronic diastolic heart failure, COPD, DM type II, hypertension, chronic pain syndrome, recurrent UTI, cerebrovascular disease who presents to the ER for shortness of breath and hypoxia for 7 days. Being managed for acute on chronic hypoxic respiratory failure with hypercapnia, acute on chronic diastolic heart failure. Patient seen and examined this afternoon. Reports feeling better compared to admission. Denies any chest pain, shortness of breath at rest at this time. Reports chronic shortness of breath with turning around in bed. Reports chronic leg swelling Review of Systems Constitutional: no fever, no chills and no body aches Eyes: no problem reported Ear, Nose, Mouth, Throat: no problem reported Respiratory: + dyspnea and + dyspnea on exertion; no cough, no hemoptysis and no wheezing Cardiovascular: + dyspnea, + dyspnea on exertion and + edema; no chest pain, no palpitations and no lightheadedness Gastrointestinal: no abdominal pain, no nausea, no vomiting and no diarrhea/loose stools Genitourinary: no dysuria, no difficulty urinating and no urinary frequency Musculoskeletal: Leg swelling Neurologic: no dizziness, no headache(s) and no confusion Psychiatric: no depression and no anxiety Physical Exam Constitutional: + well hydrated and + obese; no acute distress Eyes: PERRL, conjunctivae normal, anicteric sclerae ENMT: external ear and nose normal, oropharynx normal Respiratory: normal respiratory effort, lungs clear to auscultation Cardiovascular: Rate/Rhythm: regular rate and regular rhythm Heart Sounds: normal S1 and normal S2 Bilateral pitting pedal edema Gastrointestinal (Abdomen): normal bowel sounds, soft, nontender, no hepatosplenomegaly Musculoskeletal: Bilateral pitting pedal edema Skin: Chronic moisture skin damage on sacrum per RN. Could not examine due to difficulty turning patient on side Neurologic: PERRL, EOMI, accommodation nl, no face palsy, no dysarthria Psychiatric: A+Ox3, euthymic affect Results & Data Results & Data ([facility]) Vital Signs (Past 12 Hours) Vital Signs Temp Pulse Pulse Resp BP Pulse Ox 09/17/20 10:48 36.6 C 73 18 121/63 91 09/17/20 10:00 70 09/17/20 04:06 36.6 C 68 20 126/69 92 Laboratory Results Abnormal lab results 09/16/20 09/16/20 09/17/20 Range/Units 21:09 21:15 07:15 RBC (4.2-5.4) M/uL Hgb (12.0-16.0) g/dL Hct (37-47) % MCHC (32-36) g/dL RDW Std Deviation (36.4-46.3) fL RDW Coeff of Duy (11.5-14.5) % Lymph # (Auto) (1.2-3.4) K/uL Mcdonough # (Auto) (0.11-0.59) K/uL Immature Gran # (Auto) (0.00-0.02) K/uL VBG pH 7.32 L (7.36-7.41) VBG pCO2 74 H (38-50) mmHg Carbon Dioxide (21-32) mmol/L Anion Gap (3-11) Creatinine (0.6-1.2) mg/dl BUN/Creatinine Ratio (10-20) Glucose (70-99) mg/dl POC Glucose 102 H 104 H (70-99) mg/dl Calcium (8.5-10.1) mg/dl Magnesium (1.8-2.4) mg/dl 09/17/20 09/17/20 09/17/20 Range/Units 07:40 07:40 07:50 RBC 3.79 L (4.2-5.4) M/uL Hgb 9.9 L (12.0-16.0) g/dL Hct 34.7 L (37-47) % MCHC 28.5 L (32-36) g/dL RDW Std Deviation 58.4 H (36.4-46.3) fL RDW Coeff of Duy 17.5 H (11.5-14.5) % Lymph # (Auto) 1.14 L (1.2-3.4) K/uL [place]cd[place] # (Auto) 0.65 H (0.11-0.59) K/uL Immature Gran # (Auto) 0.14 H (0.00-0.02) K/uL VBG pH 7.34 L (7.36-7.41) VBG pCO2 70 H (38-50) mmHg Carbon Dioxide 37 H (21-32) mmol/L Anion Gap 1.0 L (3-11) Creatinine 0.49 L (0.6-1.2) mg/dl BUN/Creatinine Ratio 29.4 H (10-20) Glucose 106 H (70-99) mg/dl POC Glucose (70-99) mg/dl Calcium 8.3 L (8.5-10.1) mg/dl Magnesium 1.4 L (1.8-2.4) mg/dl 09/17/20 09/17/20 Range/Units 11:15 16:16 RBC (4.2-5.4) M/uL Hgb (12.0-16.0) g/dL Hct (37-47) % MCHC (32-36) g/dL RDW Std Deviation (36.4-46.3) fL RDW Coeff of Duy (11.5-14.5) % Lymph # (Auto) (1.2-3.4) K/uL [place] # (Auto) (0.11-0.59) K/uL Immature Gran # (Auto) (0.00-0.02) K/uL VBG pH (7.36-7.41) VBG pCO2 (38-50) mmHg Carbon Dioxide (21-32) mmol/L Anion Gap (3-11) Creatinine (0.6-1.2) mg/dl BUN/Creatinine Ratio (10-20) Glucose (70-99) mg/dl POC Glucose 155 H 132 H (70-99) mg/dl Calcium (8.5-10.1) mg/dl Magnesium (1.8-2.4) mg/dl (1) Anemia Anemia type: unspecified type Qualified Code(s): D64.9 - Anemia, unspecified
[2020-09-17] MEDS: INSULIN HUMAN NPH SC SCH (17:04)
[2020-09-17] MEDS: ENOXAPARIN INJ 40 MG/0.4 ML SYR SQ SCH (18:21)
[2020-09-17] MEDS: MIRTAZAPINE SOLTAB 15 MG PO SCH (19:29)
[2020-09-17] MEDS: MONTELUKAST SODIUM 10 MG TABLET PO SCH (19:30)
[2020-09-17] MEDS: SIMVASTATIN 20 MG TAB PO SCH (19:32)
[2020-09-17] MEDS: ACETAMINOPHEN 325 MG TAB PO PRN (20:01)
[2020-09-18] MEDS: ENOXAPARIN INJ 40 MG/0.4 ML SYR SQ SCH ×2 (06:23→16:04)
[2020-09-18] MEDS: LEVOTHYROXINE SODIUM 100 MCG TABLET PO SCH (06:24)
[2020-09-18] MEDS: MEROPENEM 500 MG in SYRINGE 0 ML IV SCH (06:24)
[2020-09-18 07:41] LABS: Hematocrit (blood only) 37.1 % (37-47); Hemoglobin 10.7 g/dL (12.0-16.0); Mean Corpuscular Hemoglobin 26.5 pg (25-34); Mean Corpuscular Hgb Conc 28.8 g/dL (32-36); Mean Corpuscular Volume 91.8 fL (80-100); Mean Platelet Volume 11.1 fL (7.4-10.4); Platelet Count 157 K/uL (130-400); RDW Coefficient of Variation 17.7 % (11.5-14.5); RDW Standard Deviation 58.3 fL (36.4-46.3); Red Blood Count 4.04 M/uL (4.2-5.4); White Blood Count 8.09 K/uL (4.8-10.8)
[2020-09-18 07:51] LABS: BUN Creatinine Ratio 28.7 (10-20); Calcium 8.7 mg/dl (8.5-10.1); Creatinine Clr Calc Pharmacy 136.3 ml/min; Est GFR (African American) 106.5 ml/min; Est GFR (Non-African American) 91.9 ml/min; Phosphorus 2.9 mg/dl (2.5-4.9); Potassium 4.2 mmol/L (3.5-5.1)
[2020-09-18] MEDS: INSULIN ASPART 100 UNITS/ML 3 ML PEN SC SCH ×2 (07:54→11:57)
[2020-09-18] MEDS: INSULIN HUMAN NPH SC SCH (08:01)
[2020-09-18] MEDS: ursodioL 300 MG CAP PO SCH ×2 (08:07→16:07)
[2020-09-18] MEDS: DULoxetine HCL 30 MG CAP PO SCH (08:07)
[2020-09-18] MEDS: FUROSEMIDE 40 MG in SYRINGE 0 ML IV SCH ×2 (08:07→16:06)
[2020-09-18] MEDS: FOLIC ACID 1 MG TAB PO SCH (08:07)
[2020-09-18] MEDS: PREGABALIN 100 MG CAP PO SCH ×2 (08:07→13:46)
[2020-09-18] MEDS: DULoxetine HCL 60 MG CAP PO SCH (08:07)
[2020-09-18] MEDS: METOPROLOL TARTRATE 25 MG TAB PO SCH (08:07)
[2020-09-18] MEDS: NYSTATIN POWDER 15GM BTL EXT SCH ×2 (08:08→13:46)
[2020-09-18] MEDS: POTASSIUM CHLORIDE CRTAB 20 MEQ TABCR PO SCH (08:08)
[2020-09-18] MEDS: MAGNESIUM OXIDE 400 MG TAB PO SCH (08:08)
[2020-09-18] MEDS: amLODIPine BESYLATE 5 MG TAB PO SCH (08:09)
[2020-09-18] MEDS: FERROUS SULFATE 325 MG TAB PO SCH (08:09)
[2020-09-18] MEDS: CYANOCOBALAMIN 500 MCG TABLET (VITAMIN B-12) PO SCH (08:09)
--- NOTE | 2020-09-18 11:39 | Cardiology Progress Note ---
Date of Service September 18, 2020 Assessment & Plan (1) CHF (congestive heart failure): (2) Obesity hypoventilation syndrome: (3) Acute on chronic heart failure with preserved ejection fraction (HFpEF): Plan: Complex 69-year-old female admitted with acute on chronic hypercapnic respiratory failure and acute on chronic diastolic congestive heart failure. Patient responded well to IV furosemide. I/O's are negative 4.5 L. Weight is down 8.6 kg. Ok for discharge from a cardiac standpoint, with recommendation to utilize furosemide daily instead of as needed, along with supplemental potassium. Admission and Anticipated Discharge Date Admission Date: September 16, 2020 Supervising Physician Co-Signing Physician Notes Patient seen and chart and telemetry reviewed. Recommendations as well outlined above. Patient anxious to be discharged with careful outpatient follow, increase furosemide to daily dosing Subjective Patient seen and examined Chart, medications, and telemetry reviewed Telemetry reveals sinus rhythm with occasional atrial and ventricular ectopy. Heart rate was as low as 39 bpm for a brief period of time, typically in the 60s to 70s. No significant bradycardia. No atrial fibrillation/flutter. Patient feels better. She is very anxious for discharge and wants to be with her of 50 years. Breathing has improved. No chest pain. No palpitations. No dizziness or syncope. No fevers or chills. Review of Systems Review of Systems: Complete review of system is otherwise as stated above, negative, noncontributory. Physical Exam Physical Exam: General: A&Ox3. NAD. HENT: Normocephalic. Atraumatic. Eyes: PER. Conjunctiva pink, sclera clear. Neck: Neck veins not appreciated. No carotid bruits. Heart: RRR. No murmur. No rub. Lungs: Clear to auscultation anteriorly and laterally. Abdomen: +BS. Soft. Nontender. No masses or organomegaly. Extremities: Trace to 1+ edema. No clubbing. No cyanosis. Limited neurological examination is without focal deficits. Pulses: radial=2/4, posterior tibial=1/4. Results & Data ([facility]) Vital Signs (Past 12 Hours) Vital Signs Temp Pulse Pulse Resp BP Pulse Ox 09/18/20 10:06 67 09/18/20 06:59 36.6 C 66 20 128/56 L 92 09/18/20 03:31 36.6 C 64 18 127/72 93 09/18/20 03:25 90 22 92 Laboratory Results Laboratory Results - last 24 hr 09/17/20 09/17/20 09/18/20 16:16 19:25 06:15 WBC RBC Hgb Hct MCV MCH MCHC RDW Std Deviation RDW Coeff of Duy Plt Count MPV Sodium 141 Potassium 4.2 Chloride 102 Carbon Dioxide 38 H Anion Gap 1.0 L BUN 18 Creatinine 0.61 Est Cr Clr Drug Dosing 136.3 Est GFR ( Amer) 106.5 Est GFR (Non-Af Amer) 91.9 BUN/Creatinine Ratio 28.7 H Glucose 109 H POC Glucose 132 H 139 H Calcium 8.7 Phosphorus 2.9 Magnesium 2.0 09/18/20 09/18/20 09/18/20 06:15 07:29 11:13 WBC 8.09 RBC 4.04 L Hgb 10.7 L Hct 37.1 MCV 91.8 MCH 26.5 MCHC 28.8 L RDW Std Deviation 58.3 H RDW Coeff of Duy 17.7 H Plt Count 157 MPV 11.1 H Sodium Potassium Chloride Carbon Dioxide Anion Gap BUN Creatinine Est Cr Clr Drug Dosing Est GFR ( Amer) Est GFR (Non-Af Amer) BUN/Creatinine Ratio Glucose POC Glucose 134 H 190 H Calcium Phosphorus Magnesium (1) CHF (congestive heart failure) Heart failure chronicity: acute Heart failure type: unspecified Qualified Code(s): I50.9 - Heart failure, unspecified
[2020-09-18] MEDS: ACETAMINOPHEN 325 MG TAB PO PRN (14:04)
--- NOTE | 2020-09-18 17:51 | Discharge Summary ---
Date of Service September 18, 2020 Admission HPI Per Admitting Provider This is a chronically ill bedbound 69-year-old female who has significant past medical history of chronic respiratory failure on 4 L of O2, central sleep apnea, obesity hypoventilation syndrome, chronic diastolic CHF, COPD, cerebrovascular disease, IDDM type II, HTN, HLD, chronic pain syndrome, recurrent UTI who presents to ED secondary to shortness with and hypoxia for 3 to 4 days. is at bedside. Patient is generally a poor historian. Per at bedside he states that for the past 3 to 4 days they have been having difficulty keeping her oxygen saturations up despite 4 L of oxygen. They have been running anywhere between 77% and 88%. EMS was summoned today. She has been having increasingly difficulty breathing. Of significance patient was recently hospitalized 08/11 to 08/18/2020 secondary to acute on chronic respiratory failure with hypoxia and hypercapnia secondary to pneumonia and ESBL UTI. During this admission she did require mechanical ventilation and was weaned appropriately. She has multiple drug allergies and was treated with IV meropenem secondary to a positive ESBL UTI and Pseudomonas sputum culture. She does follow with [facility] at home and per records appears to be trying to get more in-home services. She does complain of a cough that is productive with brown and blood-tinged sputum, shortness of breath with very minimal exertion, nausea, poor appetite, increased lower extremity swelling and pain to her buttocks. Most of her pain is in her buttocks secondary to skin erythema as well as pain in her bilateral lower extremities. Per at bedside she has been taking 40 mg of Lasix the past 2 to 3 days. They do not have her medication list with her so they are unsure what medication she is taking and they do not know her settings of her trilogy. In ED patient made hemodynamically stable although she was hypertensive with blood pressure 192/71. Lab work notable for a stable anemia of 10.3 and 35.8, platelet 138, mag 1.6, proBNP 1149, albumin 2.7. ABG returned with respiratory acidosis, PH 7.25, pCO2 86. Admission Exam Per Admitting Provider Constitutional: Chronically ill, morbidly obese, F, vitals as above, NAD, sitting up in bed, answers question appropriately but gets dyspneic with conversation Head: Normocephalic, Atraumatic Eyes: PERRL, conjunctivae normal, anicteric sclerae ENMT: external ear and nose normal, oropharynx normal Neck: trachea midline, no thyromegaly normal visual inspection Respiratory: poor inspiratory effort, bibasilar crackles, no w/rhonchi, normal respiratory effort. no accessory muscle use Cardiovascular: distant heart sounds, RRR,s1/s2, +2-3 pitting edema b/l lower ext Vessels: no JVD or carotid bruit Chest: normal inspection of chest Abdomen: protuberant abd, soft, nontender, no hepatosplenomegaly Musculoskeletal: no cyanosis or clubbing, poor active rom 2/2 to body habitus, unable to assess strength Skin: report erythematous buttocks, unable to appropriately roll patient given habitus, will need to re evaluate when on floor with wound care nurse, no rashes, warm and dry normal turgor Neurologic: PERRL, EOMI, accommodation nl, no face palsy, no dysarthria CN's II-XI intact bilaterally and moves all extremities Psychiatric: A+Ox3, euthymic affect Lymphatic: no cervical or axillary lymphadenopathy : estrada draining yellow urine Principal Diagnosis Acute on Chronic respiratory failure with hypercapnia Acute on chronic HFpEF Respiratory acidosis Discharge Exam Constitutional + well hydrated and + obese; no acute distress Eyes PERRL, conjunctivae normal, anicteric sclerae ENMT external ear and nose normal, oropharynx normal Respiratory normal respiratory effort, lungs clear to auscultation Cardiovascular Rate/Rhythm: regular rate and regular rhythm Heart Sounds: normal S1 and normal S2 Gastrointestinal (Abdomen) normal bowel sounds, soft, nontender, no hepatosplenomegaly Musculoskeletal Bilateral leg edema Neurologic PERRL, EOMI, accommodation nl, no face palsy, no dysarthria Psychiatric A+Ox3, euthymic affect Discharge Data Allergies Allergy/AdvReac Type Severity Reaction Status Date / Time Insulins Allergy Severe LANTUS/LEVEMIR- Verified 07/10/19 00:35 HIVES/THROAT SWELLING moxifloxacin Allergy Severe HIVES Verified 07/10/19 00:35 nitrofurantoin Allergy Severe HIVES Verified 07/10/19 00:35 paroxetine Allergy Severe HIVES Verified 07/10/19 00:35 Quinolones Allergy Severe AVELOX & Verified 07/10/19 00:35 LEVAQUIN-HIVES amitriptyline Allergy Intermediate Sweats and Verified 07/10/19 00:35 itching buspirone Allergy Intermediate HIVES Verified 07/10/19 00:35 cephalexin Allergy Intermediate Hives Verified 07/10/19 00:35 citalopram Allergy Intermediate HIVES-RASH Verified 07/10/19 00:35 escitalopram Allergy Intermediate HIVES-RASH Verified 07/10/19 00:35 levofloxacin Allergy Intermediate Hives Verified 07/10/19 00:35 methadone Allergy Intermediate HIVES Verified 07/10/19 00:35 Penicillins Allergy Intermediate RASH,HIVES Verified 07/10/19 00:35 Serotonin 5HT-3 Antagonists Allergy Intermediate MIGRAINES Verified 07/10/19 00:35 TO SSRIs trazodone Allergy Intermediate BLOODY Verified 07/10/19 00:35 NOSE, HEADACHES,HIVES vancomycin Allergy Intermediate HIVES Verified 07/10/19 00:35 prednisone Allergy Mild CHEST Verified 07/10/19 00:35 TIGHTNESS carbamazepine Allergy Unknown HIVES-RASH- Verified 07/10/19 00:35 ITCHINESS cefepime Allergy Unknown face & arm Verified 07/10/19 00:35 redness/itching after 2nd or 3rd dose cefepime ceftriaxone Allergy Unknown Received Verified 07/10/19 00:35 in [facility] (but needed benadryl for course of therapy Cipro Allergy Unknown ABD PAINS Verified 09/08/17 09:10 sertraline Allergy Unknown UNKNOWN Verified 07/10/19 00:35 sitagliptin Allergy Unknown HIVES Verified 07/10/19 00:35 azithromycin Allergy Hives Verified 07/10/19 00:35 Cephalosporins Allergy Hives Verified 07/10/19 00:35 [facility] Allergy Unknown Verified 07/10/19 00:35 fluoxetine AdvReac Severe ANAPHYLAXIS Verified 09/18/20 11:13 Tetracyclines AdvReac Severe HIVES Verified 07/10/19 00:35 Sulfa (Sulfonamide AdvReac Intermediate MIGRAINES Verified 07/10/19 00:35 Antibiotics) fexofenadine AdvReac Mild GI SYMPTOMS Verified 07/10/19 00:35 tizanidine AdvReac Mild ITCHING-HIV Verified 07/10/19 00:35 ES ciprofloxacin AdvReac Unknown ABD PAINS Verified 09/18/20 11:13 gentamicin AdvReac Unknown UNKNOWN Verified 07/10/19 00:35 lorazepam AdvReac Unknown Verified 07/10/19 00:35 blood Allergy Severe Anaphylaxis Uncoded 10/25/19 07:53 Consultations 09/16/20 14:52 ED Decision to Admit Stat 09/16/20 15:26 Consult Cardiology Routine Consult Infectious Diseases Routine Hospital Course (1) Chronic hypercapnic respiratory failure: (2) Respiratory acidosis: (3) Acute on chronic heart failure with preserved ejection fraction (HFpEF): (4) Obesity hypoventilation syndrome: (5) Recurrent UTI: (6) Diabetes mellitus, type II: (7) Hypertension: (8) Cerebrovascular disease: (9) COPD (chronic obstructive pulmonary disease): (10) Anemia: 69-year-old female who has significant past medical history of chronic respiratory failure on 4 L of O2, central sleep apnea, obesity hypoventilation syndrome, chronic diastolic CHF, COPD, cerebrovascular disease, IDDM type II, HTN, HLD, chronic pain syndrome, recurrent UTI who presents to ED secondary to shortness with and hypoxia for 3 to 4 days. ABG show Respiratory acidosis, mentation at baseline. pH 7.25, pCO2 86, chronic retainer in setting of Obesity hypoventilation syndrome. CXR: CHF with pulm vasc congestion, pro-BNP 1149 ( recent admission 562) B/L lower ext edema, pt unable to weigh self daily, 164.2kg on presentation, was 150.5kg at last discharge Last echocardiogram 10/27/2019 revealed EF 65 to 70%, grade 1 diastolic dysfunction Acute on Chronic respiratory failure with hypercapnia Acute on chronic HFpEF Respiratory acidosis Reported patient saturation at home was running in the low 80s while on her usual 4 L/min of nasal oxygen Received IV Lasix while inpatient with good diuresis Weights dropped from 164.2 kg on admission to 155.6 kilogram today VBG pH is improved to 7.34 Was hypomagnesemic. This was repleted. Patient was evaluated by cardiology. Patient's home Lasix was changed from Lasix as needed to 40 mg daily for now. Patient advised to continue taking her potassium daily with the Lasix. Was also discharged on p.o. magnesium Central Sleep Apnea, Obesity Hypoventilation syndrome Continue bipap Patient uses trelegy at HS Avoid sedating and respiratory suppression drugs Recurrent UTI/Abnormal UA Recent hospital admission 08/2020 + sputum culture pseudomonas Was treated with 10 day course of meropenem, pt with multiple drug allergies UA again concerning for UTI, afebrile, wbc WNL Urine culture growing Klebsiella Patient was initially started on meropenem Was evaluated by infectious disease who recommended discontinuing antibiotics due to asymptomatic bacteriuria Antibiotics discontinued Hypomagnesemia Repleted Magnesium is 2.0 today. Patient discharged on p.o. 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 iron def - receiving monoferric at outpt Total Time Total Time Spent Total Time Spent (In Minutes): 60 Total Time Includes: Examination of the Patient, Discharge Planning, Medication Reconciliation and Communication With Other Providers Discharge Plan Discharge Items Patient Disposition: Home - Home Health Services Reason For Visit: CHRONIC RESP FAILURE, RECURRENT UTI, AMBULATORY DY Discharge Diagnosis: Acute on Chronic respiratory failure with hypercapnia Acute on chronic HFpEF Respiratory acidosis Klebsiella bacteruria Condition on Discharge: Fair Activity: Resume your previous activity Non-emergency contact: Primary Care Provider and Refrigeration Manager Call non-emergency contact if: you have any medication questions and your symptoms worsen Follow-up/Referrals: Bairon Owens MD [Primary Care Provider] - Diet: Carb Consistent or DM2 Fluids: 1800ml (7 cups) Addtl Attending Provider Instructions: Mrs Ramon. You came to the hospital with worsening shortness of breath and low oxygen levels at home. You were evaluated and managed for the above listed diagnoses. You got some IV diuretic for congestive heart failure with increased urine output. You were also evaluated by cardiology. You are being discharged home. Your Lasix was changed to Lasix 40 mg daily. Please take the potassium and magnesium whenever you take the lasix Please ensure follow-up with your primary doctor and exterior interior specialist. It was a pleasure taking care of you Pending Studies at Discharge: No Stand-Alone Forms: My [facility], Smoking Cessation Medications and DC Order Prescriptions: New magnesium oxide 400 mg (241.3 mg magnesium) Tablet 400 mg PO QAM Qty: 30 RF: 0 Continued celecoxib [Celebrex] 200 mg Capsule 200 mg PO DAILY PRN (Reason: Pain) RF: 0 sumatriptan succinate 100 mg Tablet 100 mg PO UD MDD 2 PRN (Reason: Migraine Headache) RF: 0 levothyroxine 100 mcg tablet 100 mcg PO DAILYBB RF: 0 simvastatin 20 mg tablet 20 mg PO HS RF: 0 ursodiol 300 mg Capsule 600 mg PO BIDM RF: 0 montelukast 10 mg tablet 10 mg PO HS RF: 0 nystatin [Nyamyc] 100,000 unit/gram powder 1 applic TOPICAL TID RF: 0 duloxetine 30 mg capsule,delayed release(DR/EC) 30 mg PO DAILY RF: 0 ferrous sulfate 325 mg (65 mg iron) tablet 325 mg PO DAILY RF: 0 pregabalin 100 mg capsule 100 mg PO TID RF: 0 cyanocobalamin (vitamin B-12) 1,000 mcg Tablet 1,000 mcg PO DAILY RF: 0 amlodipine 2.5 mg tablet 2.5 mg PO DAILY RF: 0 furosemide 40 mg tablet 40 mg PO QAM Qty: 30 RF: 0 potassium chloride 10 mEq capsule, extended release 10 meq PO DAILY Qty: 30 RF: 0 metformin 500 mg Tablet Extended Release 24 Hr 500 mg PO DAILY RF: 0 albuterol sulfate 2.5 mg /3 mL (0.083 %) solution for nebulization 2.5 mg continuous nebulization Q6H PRN (Reason: Shortness Of Breath Or Wheezing) RF: 0 ketoconazole 2 % cream 1 applic TOPICAL BID RF: 0 levocetirizine 5 mg Tablet 5 mg PO HS PRN (Reason: Allergy Symptoms) RF: 0 hydroxyzine pamoate 25 mg Capsule 25 mg PO TID PRN (Reason: Anxiety) RF: 0 folic acid 1 mg Tablet 1 mg PO DAILY RF: 0 mirtazapine 45 mg tablet 45 mg PO HS RF: 0 duloxetine 60 mg capsule,delayed release(DR/EC) 60 mg PO DAILY RF: 0 Tresiba FlexTouch U-200 200 unit/mL (3 mL) insulin pen 68 unit SUBCUT BID RF: 0 Novolin R Regular U-100 Insuln 100 unit/mL solution 70 unit subcut .BREAKFAST RF: 0 Novolin R Regular U-100 Insuln 100 unit/mL solution 30 unit subcut .LUNCH RF: 0 Novolin R Regular U-100 Insuln 100 unit/mL solution 40 unit subcut .EVENING MEAL RF: 0 Jardiance 25 mg tablet 25 mg PO QAM RF: 0 metoprolol tartrate 25 mg Tablet 25 mg PO BID Qty: 60 RF: 0 guaifenesin 200 mg tablet 200 mg PO TID PRN (Reason: cough) Qty: 15 RF: 0 Discharge Orders: Discharge Order (Routine); Ordered 09/18/20 Ordered By: Reva Payne/Other Patient Handouts: Tips for Using Less Salt, Healthy Meals for Diabetes, 5 Steps for Eating Healthier, Heart Failure Making Changes to ..., Limiting Fluids Dc Admission Data Admit Date/Time: 09/16/20 15:02 Attending Provider: Reva Larose I. Admit Provider: Estefania Isaacs Primary Care Provider: Bairon Owens Other Providers: Johnathan Weber ; Delvis Leo ; [place] Muhammad ; Onesimo Harris I. ; Conrado Constantino II ; Linnette Alvarado ; Blayne Ott ; Estefania Isaacs ; [facility] Other Interventions: Discharge Summary Assessment (RN) Last Done: 09/18/20 15:45
--- NOTE | 2020-09-19 05:59 | Electrocardiogram Report ---
Test Reason : Blood Pressure : / mmHG Vent. Rate : 093 BPM Atrial Rate : 125 BPM P-R Int : 144 ms QRS Dur : 074 ms QT Int : 364 ms P-R-T Axes : 035 004 050 degrees QTc Int : 452 ms Sinus tachycardia with Premature atrial complexes Otherwise normal ECG When compared with ECG of 11-AUG-2020 15:25, Premature ventricular complexes are no longer Present Confirmed by Colt San ([id number]) on 09/19/2020 5:58:43 AM Referred By: Confirmed By:Colt San
--- NOTE | 2020-09-26 09:02 | Coding Query ---
CODING QUERY To promote full compliance with coding requirements relating to patient care, provider participation is requested in all cases of chain saw operator uncertainty. Please assist us with the question(s) below: Coding Question(s): Per documentation, UA was concerning for UTI. Patient was treating with empirical meropenem. Patent's culture also grew Klebsiella. Per discharge summary, patient with Klebsiella bacteruria. Please clarify below: ( ) Patient with (possible) UTI ( ) UTI Ruled Out (x ) Other Please Explain: Patient did not have urinary symptoms on admission. UA was suggestive of possible UTI and due to history of recent UTI, was placed on antibiotics empirically. Was also reviewed by ID. Thank you Manjinder Zee Principal Diagnosis: "that condition established after study, to be chiefly responsible for occasioning the admission of the patient to the hospital for care." Co-Existing Principal Diagnosis: "when two or more diagnoses equally meet the criteria for principal diagnosis as determined by the circumstances of admission, diagnostic work up, and/or therapy provided, and the Alphabetic Index, Tabular List, or another coding guideline does not provide sequencing direction, any one of the diagnoses may be sequenced first." "When the physician has documented what appears to be a current diagnosis in the body of the record, but has not included the diagnosis in the final diagnostic statement, the physician should be asked whether the diagnosis should be added." (Source Coding [facility] 2 QTR90. p3-4) SB
== END 2020-09-18 16:40 | disposition home health service (06) | DRG 291 ==
LOC: ED 12:20 → 2S 15:02 → SUATTDRO 15:02 → 2S 20:07
DX: Z86.73 Personal history of transient ischemic attack (TIA), and cerebral infarction without residual deficits; F32.9 Major depressive disorder, single episode, unspecified; Z88.1 Allergy status to other antibiotic agents; E03.9 Hypothyroidism, unspecified; R58 Hemorrhage, not elsewhere classified; Z91.09 Other allergy status, other than to drugs and biological substances; G89.4 Chronic pain syndrome; Z74.01 Bed confinement status; I11.0 Hypertensive heart disease with heart failure; I42.2 Other hypertrophic cardiomyopathy; Z82.49 Family history of ischemic heart disease and other diseases of the circulatory system; E11.42 Type 2 diabetes mellitus with diabetic polyneuropathy; D50.9 Iron deficiency anemia, unspecified; Z68.43 Body mass index [BMI] 50.0-59.9, adult; Z88.2 Allergy status to sulfonamides; J44.9 Chronic obstructive pulmonary disease, unspecified; Z86.19 Personal history of other infectious and parasitic diseases; Z88.8 Allergy status to other drugs, medicaments and biological substances; E83.42 Hypomagnesemia; L53.9 Erythematous condition, unspecified; Z87.440 Personal history of urinary (tract) infections; J96.22 Acute and chronic respiratory failure with hypercapnia; Z88.0 Allergy status to penicillin; Z79.4 Long term (current) use of insulin; Z79.899 Other long term (current) drug therapy; B96.1 Klebsiella pneumoniae [K. pneumoniae] as the cause of diseases classified elsewhere; R26.2 Difficulty in walking, not elsewhere classified; I50.33 Acute on chronic diastolic (congestive) heart failure; Z79.890 Hormone replacement therapy; R82.71 Bacteriuria; E66.2 Morbid (severe) obesity with alveolar hypoventilation; E78.5 Hyperlipidemia, unspecified

== ENCOUNTER 2021-09-16 07:42 | Inpatient (IN) ==
[2021-09-16] MEDS ORDERED: SODIUM CHLORIDE 0.9% 500 ML IV ONE (07:48)
[2021-09-16] MEDS ORDERED: dexAMETHasone**PF** 10 MG/ML VIAL IV ONE (07:48)
--- NOTE | 2021-09-16 07:53 | Emergency Department Note ---
Impression & Plan Acute respiratory failure with hypoxia and hypercapnia, Acute UTI (urinary tract infection), COVID-19 ED Provider Note Name: DAVID MAYO Age: 70 Sex: F Arrives Via: Ambulance Informant: Patient, EMS ED Provider: Carroll Michael MD Chief Complaint: Respiratory distress Impression: As per impressions above Medical Decision Makin-year-old female with extensive past medical history including significant lung disease with previous hospitalizations and intubations for respiratory failure. She arrives 7 to 10 days into a episode of COVID with worsening breathing the last few days. On arrival she is not moving air well but is not wheezing it is more just junky and poor respiratory drive. She was immediately placed on BiPAP as she is satting in the 60s and 70s. With the reported COVID she was given a dose of Decadron especially given her findings. Blood cultures plus lactic amongst other laboratory tests were ordered. Her VBG shows mild aci dosis with significant CO2 retention. With mild confusion this is consistent with retention. She is tolerating the BiPAP though cannot tolerate anything lower than 100% FiO2 on it. Chest x-ray with bilateral congestion. She was given some 1L IV NSS hydration given she clearly is dehydrated by physical exam. Would hold off on any further fluids for fear of overloading her though. She was furthermore given meropenem g IV for what appears to be a UTI. Did have an episode of hypoxia despite BiPAP but with turning the FiO2 back up to 100% and mild increase in her PEEP sats return to upper 90s. Hospitalist and critical care consulted and she was brought in for further management. Prior Medical Record and Triage/Nursing Notes reviewed by Me Additional history obtained from chart Differentials:Reactive airway disease, pneumonia, pneumothorax, COPD, CHF, infections, cardiac ischemia, pulmonary embolism, musculoskeletal, gastrointestinal, as well as other pathologies. Vital Signs: reviewed and remarkable for hypoxia Interventions: BiPAP, meropenem, normal saline bolus Labs:Reviewed and remarkable for positive COVID Imagin view chest x-ray bilateral congestion/infectious etiology per radiologist EKG:Per My Interpretation: Indication Respiratory Distress: NSR 93 bpm, qtc 467. No Ectopy. No Ischemia. Compared to EKG 09/16/20, no significant changes. Cardiac/Tele Monitoring: Cardiac Monitoring: An Order was placed for continuous cardiac monitoring. The monitor shows a rate of 90 with a normal sinus rhythm. Consults:Dr Love [facility], Dr Greg Bonilla hospitalist Plan: Disposition:Hospitalization. Condition: Poor History of Present Illness:70-year-old female arrives for evaluation of illness. Patient with roughly 2 weeks of not feeling well and diarrhea. She tested positive for COVID about 6 days ago. Worsening shortness of breath cough congestion weakness throughout the last few days. This morning severe difficulty breathing. And EMS was called. On arrival patient satting 70% on room air working hard to breathe. She was switched to nonrebreather and in route was doing much better. Patient denies any chest pain,, fevers, chills, abdominal pain, back pain, leg swelling or other concerning signs or symptoms. She states she feels much better with oxygen. No medications prior to arrival. Any exertion makes worse rest makes better. Multiple known family members with COVID as well. ROS: See above HPI for pertinent positives & negatives. A total of 10 systems reviewed and were otherwise negative. Past Medical History:See Below Past Surgical History:See Below Family History:See Below Social History:See Below Home Medications:See Below Allergies:See Below Vitals:Blood Pressure: 130/70, Pulse 80, RR 25, T 36.9C, O2 70% on RA Physical Exam: GENERAL: Patient is unwell appearing and in moderate distress. EYES: No scleral icterus, unremarkable pupils. ENT: Mucous membranes moist, no nasal congestion. NECK: No masses appreciated, nomeningismus, trachea is midline. RESPIRATORY: Diffuse crackles and wet lung sounds with poor inspiratory effort and tachypnea. No wheezing appreciated CARDIOVASCULAR: Regular rate and rhythm.No murmurs, rubs, gallops appreciated. GASTROINTESTINAL: Abdomen soft, non-tender, no peritonitis.Bowel sounds positive.No masses appreciated. BACK: No midline tenderness, no CVA tenderness EXTREMITIES: Normal motion all extremities, no cyanosis, no edema. NEUROLOGIC: Alert and oriented, no acute motor or sensory deficits, no focal weakness, cranial nerves grossly intact. SKIN: No rash, no jaundice, no diaphoresis. PSYCH: Appropriate GCS: 15 ED Course: Times/Reassessments: Multiple episodes of prolonged bedside management Critical Care: I have personally spent 35 minutes of critical care time in the direct management of this patient. Respiratory Failure requiring BIPAP secondary to COVID. This was a life/limb threatening event. This 35 minutes is in excess of all separately billable procedures. Carroll Michael MD Past Med/Surg History Medical History Acute on chronic respiratory failure with hypoxia and hypercapnia Cerebrovascular disease "history left thalamic stroke" CHF (congestive heart failure) Chronic hypercapnic respiratory failure Chronic pain disorder (01/24/14) COPD (chronic obstructive pulmonary disease) Cough with hemoptysis CVA (cerebral vascular accident) hx of L thalamus CVA Diabetes mellitus, type II Dyslipidemia Encephalopathy acute HLD (hyperlipidemia) Hypertension Hypertension Hypertrophic cardiomyopathy Hypothyroidism Metabolic encephalopathy Morbid obesity Morbid obesity Obesity hypoventilation syndrome JOSE (obstructive sleep apnea) Recurrent UTI Respiratory acidosis Surgical History H/O partial nephrectomy History of tonsillectomy Hx of nasal septoplasty S/P dilatation and curettage Status post tonsillectomy Family History Father Coronary heart disease Mother Diabetes Social History Smoking Status: Never smoker Second Hand Exposure: No; Hx Alcohol Use: No Hx Substance Use: No Preferred Language: Bahamian Communication Ability: Effective Wire Chief Required: No Beliefs That Will Affect Care: None marital status: Current Living Situation: Spouse Current Living Situation Comment: living at home with How many Children do You have: 2 Other Information That Helps Us Care for You: No Feels Safe at Home: Yes Safety Concerns: Feels Safe At This Time Assistive Devices: Mechanical Lift, Oxygen - Continuous, Walker and Wheelchair Allergies Allergies Allergy/AdvReac Type Severity Reaction Status Date / Time Insulins Allergy Severe LANTUS/LEVEMIR- Verified 09/16/21 09:46 HIVES/THROAT SWELLING moxifloxacin Allergy Severe HIVES Verified 09/16/21 09:46 nitrofurantoin Allergy Severe HIVES Verified 09/16/21 09:46 paroxetine Allergy Severe HIVES Verified 09/16/21 09:46 Quinolones Allergy Severe AVELOX & Verified 09/16/21 09:46 LEVAQUIN-HIVES amitriptyline Allergy Intermediate Sweats and Verified 09/16/21 09:46 itching buspirone Allergy Intermediate HIVES Verified 09/16/21 09:46 cephalexin Allergy Intermediate Hives Verified 09/16/21 09:46 citalopram Allergy Intermediate HIVES-RASH Verified 09/16/21 09:46 escitalopram Allergy Intermediate HIVES-RASH Verified 09/16/21 09:46 levofloxacin Allergy Intermediate Hives Verified 09/16/21 09:46 methadone Allergy Intermediate HIVES Verified 09/16/21 09:46 Penicillins Allergy Intermediate RASH,HIVES Verified 09/16/21 09:46 Serotonin 5HT-3 Antagonists Allergy Intermediate MIGRAINES Verified 09/16/21 09:46 TO SSRIs trazodone Allergy Intermediate BLOODY Verified 09/16/21 09:46 NOSE, HEADACHES,HIVES vancomycin Allergy Intermediate HIVES Verified 09/16/21 09:46 prednisone Allergy Mild CHEST Verified 09/16/21 09:46 TIGHTNESS carbamazepine Allergy Unknown HIVES-RASH- Verified 09/16/21 09:46 ITCHINESS cefepime Allergy Unknown face & arm Verified 09/16/21 09:46 redness/itching after 2nd or 3rd dose cefepime ceftriaxone Allergy Unknown Received Verified 09/16/21 09:46 in MTU (but needed benadryl for course of therapy Cipro Allergy Unknown ABD PAINS Verified 09/08/17 09:10 sertraline Allergy Unknown UNKNOWN Verified 09/16/21 09:46 sitagliptin Allergy Unknown HIVES Verified 09/16/21 09:46 azithromycin Allergy Hives Verified 09/16/21 09:46 Cephalosporins Allergy Hives Verified 09/16/21 09:46 metformin [From Janumet] Allergy Unknown Verified 09/16/21 09:46 fluoxetine AdvReac Severe ANAPHYLAXIS Verified 09/16/21 09:46 Tetracyclines AdvReac Severe HIVES Verified 09/16/21 09:46 Sulfa (Sulfonamide AdvReac Intermediate MIGRAINES Verified 09/16/21 09:46 Antibiotics) fexofenadine AdvReac Mild GI SYMPTOMS Verified 09/16/21 09:46 tizanidine AdvReac Mild ITCHING-HIV Verified 09/16/21 09:46 ES ciprofloxacin AdvReac Unknown ABD PAINS Verified 09/16/21 09:46 gentamicin AdvReac Unknown UNKNOWN Verified 09/16/21 09:46 lorazepam AdvReac Unknown Verified 09/16/21 09:46 blood Allergy Severe Anaphylaxis Uncoded 09/16/21 09:46 Home Meds Home Medications Medication Instructions Recorded Confirmed celecoxib 200 mg capsule (Celebrex) 200 mg PO DAILY PRN Pain 10/24/19 09/16/21 levothyroxine 100 mcg tablet 100 mcg PO DAILYBB 10/24/19 09/16/21 montelukast 10 mg tablet 10 mg PO HS 10/24/19 09/16/21 simvastatin 20 mg tablet 20 mg PO HS 10/24/19 09/16/21 sumatriptan succinate 100 mg tablet 100 mg PO UD PRN Migraine Headache 10/24/19 09/16/21 albuterol sulfate 2.5 mg/3 mL 2.5 mg continuous nebulization Q6H 08/11/20 09/16/21 (0.083 %) solution for nebulization PRN Shortness Of Breath Or Wheezing duloxetine 60 mg capsule,delayed 60 mg PO DAILY 08/11/20 09/16/21 release empagliflozin 25 mg tablet 25 mg PO QAM 08/11/20 09/16/21 (Jardiance) folic acid 1 mg tablet 1 mg PO DAILY 08/11/20 09/16/21 insulin degludec 200 unit/mL (3 68 unit subcut BID 08/11/20 09/16/21 mL) subcutaneous pen (Tresiba FlexTouch U-200 insulin) insulin regular human 100 unit/mL 30 unit subcut .LUNCH 08/11/20 09/16/21 injection solution (Novolin R Regular U-100 Insulin) insulin regular human 100 unit/mL 40 unit subcut .EVENING MEAL 08/11/20 09/16/21 injection solution (Novolin R Regular U-100 Insulin) insulin regular human 100 unit/mL 70 unit subcut .BREAKFAST 08/11/20 09/16/21 injection solution (Novolin R Regular U-100 Insulin) ketoconazole 2 % topical cream 1 applic topical BID 08/11/20 09/16/21 levocetirizine 5 mg tablet 5 mg PO HS PRN Allergy Symptoms 08/11/20 09/16/21 metformin 500 mg tablet,extended 2,000 mg PO DAILY 08/11/20 09/16/21 release 24 hr mirtazapine 45 mg tablet 45 mg PO HS 08/11/20 09/16/21 amlodipine 2.5 mg tablet 2.5 mg PO DAILY 09/16/20 09/16/21 cyanocobalamin (vitamin B-12) 1,000 mcg PO DAILY 09/16/20 09/16/21 1,000 mcg tablet pregabalin 100 mg capsule 150 mg PO BID 09/16/20 09/16/21 apixaban 5 mg tablet (Eliquis) 5 mg PO BID 09/16/21 09/16/21 aspirin 81 mg tablet,delayed 81 mg PO DAILY 09/16/21 09/16/21 release clindamycin HCl 300 mg capsule 600 mg PO TID 09/16/21 09/16/21 docusate sodium 100 mg capsule 100 mg PO BID 09/16/21 09/16/21 (Colace) fluticasone fur. 100 mcg-umeclid 1 inh inhalation DAILY 09/16/21 09/16/21 62.5 mcg-vilant 25 mcg inhalat.powder furosemide 40 mg tablet 40 mg PO QAM PRN swelling 09/16/21 09/16/21 pantoprazole 40 mg tablet,delayed 40 mg PO DAILY 09/16/21 09/16/21 release potassium chloride 10 mEq 10 meq PO DAILY PRN lasix 09/16/21 09/16/21 capsule,extended release Previous Rx's Medication Instructions Recorded guaifenesin 200 mg tablet 200 mg PO TID PRN cough #15 tabs 08/18/20 metoprolol tartrate 25 mg tablet 25 mg PO BID #60 tabs 08/18/20 magnesium oxide 400 mg (241.3 mg 400 mg PO QAM #30 tabs 09/18/20 magnesium) tablet Results & Data (ED) Vital Signs Vital Signs - 24 hr 09/16/21 07:51 09/16/21 08:25 09/16/21 08:45 Temperature Temperature Source Pulse Rate 90 Pulse Rate [Apical] 88 Respiratory Rate 31 H 18 Respiratory Effort / Characteristics Spontaneous Respiratory Depth Normal Respiratory Pattern Tachypnea Regular Blood Pressure Blood Pressure [Left Arm] 153/69 H Blood Pressure Mean Blood Pressure Mean [Left Arm] 97 Blood Pressure Position [Left Arm] Sitting Pulse Oximetry 95 99 Oxygen Delivery Method BiPAP BiPAP Fraction of Inspired Oxygen 60 Sepsis Recent Fever Within 48 Hours Sepsis New/Unexplained Change in Mental Status Sepsis Action Taken by Nursing 09/16/21 08:45 09/16/21 07:28 09/16/21 08:27 Temperature 36.9 C Temperature Source Axillary Pulse Rate 83 Pulse Rate [Apical] 84 Respiratory Rate 24 28 H Respiratory Effort / Characteristics Labored Short of Breath Respiratory Depth Normal Respiratory Pattern Tachypnea Tachypnea Tachypnea Blood Pressure 146/58 H Blood Pressure [Left Arm] 167/59 H Blood Pressure Mean 87 Blood Pressure Mean [Left Arm] 95 Blood Pressure Position [Left Arm] Sitting Pulse Oximetry 94 97 Oxygen Delivery Method BiPAP BiPAP BiPAP Fraction of Inspired Oxygen Sepsis Recent Fever Within 48 Hours No Sepsis New/Unexplained Change in Mental Status N/A Sepsis Action Taken by Nursing No Action Required 09/16/21 09:21 09/16/21 09:33 09/16/21 09:59 Temperature Temperature Source Pulse Rate 77 Pulse Rate [Apical] 77 81 Respiratory Rate 29 H 26 H 26 H Respiratory Effort / Characteristics Respiratory Depth Respiratory Pattern Tachypnea Tachypnea Blood Pressure Blood Pressure [Left Arm] 151/59 H 149/64 H Blood Pressure Mean Blood Pressure Mean [Left Arm] 89 92 Blood Pressure Position [Left Arm] Pulse Oximetry 91 94 94 Oxygen Delivery Method BiPAP BiPAP Fraction of Inspired Oxygen 100 Sepsis Recent Fever Within 48 Hours Sepsis New/Unexplained Change in Mental Status Sepsis Action Taken by Nursing Laboratory Data Result diagrams: 09/18/21 06:39 09/18/21 06:39 Lab Results 09/16/21 09/16/21 09/16/21 Range/Units 08:02 08:05 08:05 WBC (4.8-10.8) K/ul RBC (3.93-5.22) M/uL Hgb (12.0-16.0) g/dl Hct (34.1-44.9) % MCV (80.0-100.0) fL MCH (25.0-34.0) pg MCHC (32.0-36.0) g/dL RDW Std Deviation (36.4-46.3) fL RDW Coeff of Duy (11.5-14.5) % Plt Count (130-400) K/uL MPV (9.4-12.3) fL Immature Gran % (Auto) % Neut % (Auto) % Lymph % (Auto) % [place] % (Auto) % Eos % (Auto) % Baso % (Auto) % Neut # (Auto) (1.4-6.5) K/uL Lymph # (Auto) (1.2-3.4) K/uL [place] # (Auto) (0.24-0.82) K/uL Eos # (Auto) (0-0.50) K/uL Baso # (Auto) (0-0.2) K/uL Immature Gran # (Auto) (0.00-0.02) K/uL Platelet Estimate (Normal) Stomatocytes PT (9.0-12.0) Seconds INR (0.9-1.1) VBG pH 7.33 L (7.36-7.41) VBG pCO2 88 H (38-50) mmHg VBG pO2 56 mmHg VBG HCO3 46 mmol/L VBG O2 Saturation 88.7 % VBG Base Excess 15.9 mEq/L Sodium (136-145) mmol/L Potassium (3.5-5.1) mmol/L Chloride (98-107) mmol/L Carbon Dioxide (21-32) mmol/L Anion Gap (3-11) BUN (6-23) mg/dl Creatinine (0.6-1.2) mg/dl Est Cr Clr Drug Dosing Est GFR ( Amer) ml/min Est GFR (Non-Af Amer) ml/min BUN/Creatinine Ratio (10-20) Glucose (70-99(Fasting)) mg/dl Lactate 1.8 (0.4-2.0) mmol/L Calcium (8.5-10.1) mg/dl Magnesium (1.7-2.4) mg/dl Total Bilirubin (0.2-1.0) mg/dl Direct Bilirubin (0-0.2) mg/dl AST (13-39) U/L ALT (7-52) U/L Alkaline Phosphatase (34-104) U/L Troponin I High Sens (0-14) pg/ml B-Natriuretic Peptide 100 (0-100) pg/ml Total Protein (6.0-8.3) gm/dl Albumin (3.4-5.0) gm/dl Lipase (11-82) U/L Procalcitonin (0-0.5) ng/ml Urine Color Urine Appearance (Clear) Urine pH (4.5-7.5) Ur Specific [place] (1.000-1.030) Urine Protein (Negative) Urine Glucose (UA) (Negative) Urine Ketones (Negative) Urine Blood (Negative) Urine Nitrite (Negative) Urine Bilirubin (Negative) Urine Urobilinogen (Negative) Ur Leukocyte Esterase (Negative) Urine WBC (Auto) (0-5) /hpf Urine RBC (Auto) (0-4) /hpf U Hyaline Cast (Auto) (0-5) /lpf U Epithel Cells (Auto) (0-5) /lpf Urine Bacteria (Auto) (Negative) SARS-CoV-2 (PCR) (Negative) 09/16/21 09/16/21 09/16/21 Range/Units 08:05 08:05 08:05 WBC 7.78 (4.8-10.8) K/ul RBC 4.20 (3.93-5.22) M/uL Hgb 11.9 L (12.0-16.0) g/dl Hct 40.7 (34.1-44.9) % MCV 96.9 (80.0-100.0) fL MCH 28.3 (25.0-34.0) pg MCHC 29.2 L (32.0-36.0) g/dL RDW Std Deviation 55.7 H (36.4-46.3) fL RDW Coeff of Duy 15.9 H (11.5-14.5) % Plt Count 73 L (130-400) K/uL MPV 12.0 (9.4-12.3) fL Immature Gran % (Auto) 2.3 % Neut % (Auto) 71.5 % Lymph % (Auto) 15.3 % [place] % (Auto) 8.2 % Eos % (Auto) 2.3 % Baso % (Auto) 0.4 % Neut # (Auto) 5.56 (1.4-6.5) K/uL Lymph # (Auto) 1.19 L (1.2-3.4) K/uL [place] # (Auto) 0.64 (0.24-0.82) K/uL Eos # (Auto) 0.18 (0-0.50) K/uL Baso # (Auto) 0.03 (0-0.2) K/uL Immature Gran # (Auto) 0.18 H (0.00-0.02) K/uL Platelet Estimate Decreased L (Normal) Stomatocytes 3+ PT 11.4 (9.0-12.0) Seconds INR 1.1 (0.9-1.1) VBG pH (7.36-7.41) VBG pCO2 (38-50) mmHg VBG pO2 mmHg VBG HCO3 mmol/L VBG O2 Saturation % VBG Base Excess mEq/L Sodium 141 (136-145) mmol/L Potassium 3.6 (3.5-5.1) mmol/L Chloride 94 L (98-107) mmol/L Carbon Dioxide 43 H* (21-32) mmol/L Anion Gap 4 (3-11) BUN 19 (6-23) mg/dl Creatinine 0.77 (0.6-1.2) mg/dl Est Cr Clr Drug Dosing Not Reportable Est GFR ( Amer) 90.0 ml/min Est GFR (Non-Af Amer) 77.7 ml/min BUN/Creatinine Ratio 24.7 H (10-20) Glucose 102 H (70-99(Fasting)) mg/dl Lactate (0.4-2.0) mmol/L Calcium 8.3 L (8.5-10.1) mg/dl Magnesium 1.6 L (1.7-2.4) mg/dl Total Bilirubin 0.4 (0.2-1.0) mg/dl Direct Bilirubin 0.0 (0-0.2) mg/dl AST 10 L (13-39) U/L ALT 4 L (7-52) U/L Alkaline Phosphatase 64 (34-104) U/L Troponin I High Sens 18.5 H (0-14) pg/ml B-Natriuretic Peptide (0-100) pg/ml Total Protein 6.5 (6.0-8.3) gm/dl Albumin 3.7 (3.4-5.0) gm/dl Lipase 14 (11-82) U/L Procalcitonin (0-0.5) ng/ml Urine Color Urine Appearance (Clear) Urine pH (4.5-7.5) Ur Specific [place] (1.000-1.030) Urine Protein (Negative) Urine Glucose (UA) (Negative) Urine Ketones (Negative) Urine Blood (Negative) Urine Nitrite (Negative) Urine Bilirubin (Negative) Urine Urobilinogen (Negative) Ur Leukocyte Esterase (Negative) Urine WBC (Auto) (0-5) /hpf Urine RBC (Auto) (0-4) /hpf U Hyaline Cast (Auto) (0-5) /lpf U Epithel Cells (Auto) (0-5) /lpf Urine Bacteria (Auto) (Negative) SARS-CoV-2 (PCR) (Negative) 09/16/21 09/16/21 09/16/21 Range/Units 08:05 08:36 08:39 WBC (4.8-10.8) K/ul RBC (3.93-5.22) M/uL Hgb (12.0-16.0) g/dl Hct (34.1-44.9) % MCV (80.0-100.0) fL MCH (25.0-34.0) pg MCHC (32.0-36.0) g/dL RDW Std Deviation (36.4-46.3) fL RDW Coeff of Duy (11.5-14.5) % Plt Count (130-400) K/uL MPV (9.4-12.3) fL Immature Gran % (Auto) % Neut % (Auto) % Lymph % (Auto) % [place] % (Auto) % Eos % (Auto) % Baso % (Auto) % Neut # (Auto) (1.4-6.5) K/uL Lymph # (Auto) (1.2-3.4) K/uL [place] # (Auto) (0.24-0.82) K/uL Eos # (Auto) (0-0.50) K/uL Baso # (Auto) (0-0.2) K/uL Immature Gran # (Auto) (0.00-0.02) K/uL Platelet Estimate (Normal) Stomatocytes PT (9.0-12.0) Seconds INR (0.9-1.1) VBG pH (7.36-7.41) VBG pCO2 (38-50) mmHg VBG pO2 mmHg VBG HCO3 mmol/L VBG O2 Saturation % VBG Base Excess mEq/L Sodium (136-145) mmol/L Potassium (3.5-5.1) mmol/L Chloride (98-107) mmol/L Carbon Dioxide (21-32) mmol/L Anion Gap (3-11) BUN (6-23) mg/dl Creatinine (0.6-1.2) mg/dl Est Cr Clr Drug Dosing Est GFR ( Amer) ml/min Est GFR (Non-Af Amer) ml/min BUN/Creatinine Ratio (10-20) Glucose (70-99(Fasting)) mg/dl Lactate (0.4-2.0) mmol/L Calcium (8.5-10.1) mg/dl Magnesium (1.7-2.4) mg/dl Total Bilirubin (0.2-1.0) mg/dl Direct Bilirubin (0-0.2) mg/dl AST (13-39) U/L ALT (7-52) U/L Alkaline Phosphatase (34-104) U/L Troponin I High Sens (0-14) pg/ml B-Natriuretic Peptide (0-100) pg/ml Total Protein (6.0-8.3) gm/dl Albumin (3.4-5.0) gm/dl Lipase (11-82) U/L Procalcitonin 0.10 (0-0.5) ng/ml Urine Color Yellow Urine Appearance Clear (Clear) Urine pH 5.5 (4.5-7.5) Ur Specific [place] 1.017 (1.000-1.030) Urine Protein 2+ H (Negative) Urine Glucose (UA) 1+ H (Negative) Urine Ketones Negative (Negative) Urine Blood Negative (Negative) Urine Nitrite Positive A (Negative) Urine Bilirubin Negative (Negative) Urine Urobilinogen Negative (Negative) Ur Leukocyte Esterase 2+ H (Negative) Urine WBC (Auto) >30 H (0-5) /hpf Urine RBC (Auto) 0-4 (0-4) /hpf U Hyaline Cast (Auto) 1-5 (0-5) /lpf U Epithel Cells (Auto) 10-20 H (0-5) /lpf Urine Bacteria (Auto) 4+ H (Negative) SARS-CoV-2 (PCR) POSITIVE A* (Negative) Administered Medications Acetaminophen (Acetaminophen 325 Mg Tab) 650 mg PO Q4H PRN PRN Reason: Pain or Fever Stop: 10/16/21 14:38 Last Admin: 09/18/21 22:50 Dose: 650 mg Documented By: Admin: 09/18/21 07:32 Dose: 650 mg Documented By: Admin: 09/17/21 20:26 Dose: 650 mg Documented By: Admin: 09/16/21 18:37 Dose: 650 mg Documented By: KAL Albuterol (Albut/Ipratrop 3mg/0.5mg Neb 3 Ml Vial) 3 ml NEB QIDR WALDO; Protocol Stop: 10/16/21 14:38 Last Admin: 09/18/21 19:45 Dose: 3 ml Documented By: Admin: 09/18/21 15:10 Dose: 3 ml Documented By: Admin: 09/18/21 10:52 Dose: 3 ml Documented By: Admin: 09/18/21 07:37 Dose: 3 ml Documented By: Admin: 09/17/21 20:00 Dose: 3 ml Documented By: Admin: 09/17/21 14:54 Dose: 3 ml Documented By: Admin: 09/17/21 11:00 Dose: 3 ml Documented By: Admin: 09/17/21 07:05 Dose: 3 ml Documented By: Daysi Admin: 09/16/21 18:11 Dose: 3 ml Documented By: Daysi Admin: 09/16/21 15:58 Dose: Not Given Documented By: Daysi Admin: 09/16/21 15:58 Dose: 3 ml Documented By: Daysi Amlodipine Besylate (Amlodipine Besylate 5 Mg Tab) 2.5 mg PO DAILY [facility] Stop: 10/17/21 08:59 Last Admin: 09/18/21 07:32 Dose: 2.5 mg Documented By: Admin: 09/17/21 07:58 Dose: 2.5 mg Documented By: ALISA Benzonatate (Benzonatate 100 Mg Capsule) 100 mg PO TID [facility] Stop: 10/16/21 14:59 Last Admin: 09/18/21 21:32 Dose: 100 mg Documented By: Admin: 09/18/21 13:59 Dose: 100 mg Documented By: Admin: 09/18/21 08:09 Dose: 100 mg Documented By: Admin: 09/17/21 20:28 Dose: 100 mg Documented By: Admin: 09/17/21 17:05 Dose: 100 mg Documented By: Admin: 09/17/21 07:56 Dose: 100 mg Documented By: Admin: 09/16/21 21:32 Dose: 100 mg Documented By: Admin: 09/16/21 16:24 Dose: 100 mg Documented By: TIO Cyanocobalamin (Cyanocobalamin (B-12) 500 Mcg Tablet) 1,000 mcg PO DAILY [facility] Stop: 10/17/21 08:59 Last Admin: 09/18/21 07:33 Dose: 1,000 mcg Documented By: Admin: 09/17/21 07:59 Dose: 1,000 mcg Documented By: ALISA Duloxetine HCl (Duloxetine Hcl 60 Mg Cap) 60 mg PO DAILY [facility] Stop: 10/17/21 08:59 Last Admin: 09/18/21 07:33 Dose: 60 mg Documented By: Admin: 09/17/21 07:59 Dose: 60 mg Documented By: ALISA Duloxetine HCl (Duloxetine Hcl 30 Mg Cap) 30 mg PO DAILY [facility] Stop: 10/17/21 08:59 Last Admin: 09/18/21 07:33 Dose: 30 mg Documented By: Admin: 09/17/21 12:01 Dose: 30 mg Documented By: ALISA Enoxaparin Sodium (Enoxaparin Inj 40 Mg/0.4 Ml Syr) 40 mg SQ Q12H [facility] Stop: 10/16/21 21:59 Last Admin: 09/18/21 21:32 Dose: 40 mg Documented By: Admin: 09/18/21 10:03 Dose: 40 mg Documented By: Admin: 09/17/21 21:21 Dose: 40 mg Documented By: Admin: 09/17/21 12:01 Dose: 40 mg Documented By: Admin: 09/16/21 21:35 Dose: 40 mg Documented By: EARLENE Fluticasone Furoate (Fluticasone Furoate 100mcg 14 Puffs/Inhaler) 1 puffs INH DAILY [facility] Stop: 10/17/21 08:59 Last Admin: 09/18/21 07:35 Dose: 1 puffs Documented By: Admin: 09/17/21 07:59 Dose: 1 puffs Documented By: ALISA Folic Acid (Folic Acid 1 Mg Tab) 1 mg PO DAILY [facility] Stop: 10/17/21 08:59 Last Admin: 09/18/21 07:33 Dose: 1 mg Documented By: Admin: 09/17/21 07:58 Dose: 1 mg Documented By: ALISA Furosemide (Furosemide 40 Mg/4 Ml Vial) 40 mg IV BID [facility] Stop: 10/18/21 20:59 Last Admin: 09/18/21 21:26 Dose: 40 mg Documented By: CONSTANTINE Guaifenesin (Guaifenesin 600 Mg Tabcr) 600 mg PO Q12 [facility] Stop: 10/16/21 20:59 Last Admin: 09/18/21 21:26 Dose: 600 mg Documented By: Admin: 09/18/21 07:33 Dose: 600 mg Documented By: Admin: 09/17/21 20:28 Dose: 600 mg Documented By: Admin: 09/17/21 07:56 Dose: 600 mg Documented By: Admin: 09/16/21 21:33 Dose: 600 mg Documented By: EARLENE Insulin Aspart (Insulin Aspart Per Unit) 0 units SC ACHS [facility] Stop: 10/18/21 11:29 Last Admin: 09/18/21 20:23 Dose: Not Given Documented By: Admin: 09/18/21 18:11 Dose: 13 units Documented By: ALISA Co-signed By: EARLENE(2) Admin: 09/18/21 12:59 Dose: 17 units Documented By: ALISA Co-signed By: EARLENE(2) Insulin Human NPH (Insulin Human Nph) 0 units SC DAILY@1700 [facility]; Protocol Stop: 10/18/21 16:59 Last Admin: 09/18/21 18:04 Dose: Not Given Documented By: ALISA Levothyroxine Sodium (Levothyroxine Sodium 100 Mcg Tablet) 100 mcg PO DAILYBB [facility] Stop: 10/17/21 06:29 Last Admin: 09/19/21 05:43 Dose: 100 mcg Documented By: Admin: 09/18/21 06:24 Dose: 100 mcg Documented By: Admin: 09/17/21 05:52 Dose: 100 mcg Documented By: EARLENE Magnesium Oxide (Magnesium Oxide 400 Mg Tab) 400 mg PO QAM [facility] Stop: 10/17/21 08:59 Last Admin: 09/18/21 07:33 Dose: 400 mg Documented By: Admin: 09/17/21 07:59 Dose: 400 mg Documented By: ALISA Metoprolol Tartrate (Metoprolol Tartrate 25 Mg Tab) 25 mg PO BID [facility] Stop: 10/16/21 20:59 Last Admin: 09/18/21 21:26 Dose: 25 mg Documented By: Admin: 09/18/21 07:34 Dose: 25 mg Documented By: Admin: 09/17/21 20:29 Dose: 25 mg Documented By: Admin: 09/17/21 07:59 Dose: 25 mg Documented By: Admin: 09/16/21 21:34 Dose: 25 mg Documented By: EARLENE Mirtazapine (Mirtazapine Soltab 15 Mg) 45 mg PO HS [facility] Stop: 10/16/21 20:59 Last Admin: 09/18/21 21:27 Dose: 45 mg Documented By: Admin: 09/17/21 20:29 Dose: 45 mg Documented By: Admin: 09/16/21 21:35 Dose: 45 mg Documented By: EARLENE Montelukast Sodium (Montelukast Sodium 10 Mg Tablet) 10 mg PO HS [facility] Stop: 10/16/21 20:59 Last Admin: 09/18/21 21:27 Dose: 10 mg Documented By: Admin: 09/17/21 20:30 Dose: 10 mg Documented By: Admin: 09/16/21 21:38 Dose: 10 mg Documented By: EARLENE Pantoprazole Sodium (Pantoprazole 40 Mg Tab) 40 mg PO DAILY [facility] Stop: 10/17/21 08:59 Last Admin: 09/18/21 07:32 Dose: 40 mg Documented By: Admin: 09/17/21 07:56 Dose: 40 mg Documented By: ALISA Simvastatin (Simvastatin 20 Mg Tab) 20 mg PO HS [facility] Stop: 10/16/21 20:59 Last Admin: 09/18/21 21:28 Dose: 20 mg Documented By: Admin: 09/17/21 20:30 Dose: 20 mg Documented By: Admin: 09/16/21 21:37 Dose: 20 mg Documented By: EARLENE Umeclidinium/Vilanterol (Umeclidinium/Vilanterol 62.5/25mcg 7 Puffs/Inhaler) 1 puffs INH DAILY [facility] Stop: 10/17/21 08:59 Last Admin: 09/18/21 07:34 Dose: 1 puffs Documented By: Admin: 09/17/21 08:00 Dose: 1 puffs Documented By: ALISA Discontinued Medications Dexamethasone Sodium Phosphate (DexamethasonePf 10 Mg/Ml Vial) 10 mg IV NOW ONE Stop: 09/16/21 07:49 Last Admin: 09/16/21 08:12 Dose: 10 mg Documented By: Furosemide (Furosemide 40 Mg/4 Ml Vial) 40 mg IV ONE ONE Stop: 09/17/21 07:53 Last Admin: 09/17/21 10:09 Dose: 40 mg Documented By: ALISA Furosemide (Furosemide 40 Mg/4 Ml Vial) 40 mg IV ONE ONE Stop: 09/17/21 16:03 Last Admin: 09/17/21 17:05 Dose: 40 mg Documented By: ALISA Furosemide (Furosemide 40 Mg/4 Ml Vial) 40 mg IV ONE ONE Stop: 09/18/21 08:59 Last Admin: 09/18/21 10:03 Dose: 40 mg Documented By: ALISA Sodium Chloride (Nss) 500 mls @ 999 mls/hr IV .Q31M ONE Stop: 09/16/21 08:18 Last Infusion: 09/16/21 08:48 Dose: 0 mls/hr Documented By: Admin: 09/16/21 08:13 Dose: 999 mls/hr Documented By: Meropenem 500 mg/ Syringe 10 mls @ 2 mls/min IV NOW STA; Protocol Stop: 09/16/21 09:09 Last Admin: 09/16/21 09:58 Dose: 2 mls/min Documented By: TIO Magnesium Sulfate/Dextrose (Magnesium Sulfate / D5w) 1 gm in 100 mls @ 100 mls/hr IV NOW STA Stop: 09/16/21 11:21 Last Infusion: 09/16/21 12:11 Dose: 0 mls/hr Documented By: Admin: 09/16/21 11:10 Dose: 100 mls/hr Documented By: TIO Dexamethasone 6 mg/ Syringe 1.5 mls @ 1 mls/min IV DAILY [facility] Stop: 09/27/21 08:59 Last Admin: 09/18/21 07:31 Dose: 1 mls/min Documented By: Admin: 09/17/21 10:10 Dose: 1 mls/min Documented By: ALISA Insulin Aspart (Insulin Aspart Per Unit) 0 units SC Q6 [facility] Stop: 10/16/21 15:14 Last Admin: 09/18/21 06:00 Dose: Not Given Documented By: Admin: 09/18/21 00:14 Dose: Not Given Documented By: Admin: 09/17/21 18:43 Dose: 17 units Documented By: ALISA Co-signed By: EARLENE(2) Admin: 09/17/21 12:12 Dose: Not Given Documented By: Admin: 09/17/21 05:03 Dose: Not Given Documented By: Admin: 09/17/21 00:40 Dose: Not Given Documented By: Admin: 09/16/21 20:55 Dose: Not Given Documented By: Admin: 09/16/21 16:24 Dose: 4 units Documented By: TIO Co-signed By: SR Insulin Human NPH (Insulin Human Nph) 0 units SC BIDM [facility]; Protocol Stop: 10/16/21 16:59 Last Admin: 09/18/21 07:32 Dose: Not Given Documented By: Admin: 09/17/21 17:06 Dose: Not Given Documented By: Admin: 09/17/21 07:49 Dose: Not Given Documented By: Admin: 09/16/21 22:05 Dose: 20 units Documented By: EARLENE Co-signed By: [place] Potassium Chloride (Potassium Chloride Crtab 20 Meq Tabcr) 40 meq PO NOW STA Stop: 09/18/21 09:00 Last Admin: 09/18/21 10:03 Dose: 40 meq Documented By: Imaging Data Radiologist's Impression: Chest X-Ray 09/16/21 07:49 SINGLE VIEW CHEST CLINICAL HISTORY: Hypoxia. Covid. FINDINGS: 2 AP, portable, upright chest radiographs are compared to chest x-ray and chest CT dated 09/16/2020. Correlation is made with chest CT dated 08/11/2020. The examination is degraded by portable technique, large body habitus, and patient rotation. The heart is enlarged. There is pulmonary vascular congestion. Bilateral airspace opacities are noted, right slightly greater than left. There are small pleural effusions with dependent consolidation. No pneumothorax is seen. The skeletal structures are osteopenic. The bony thorax is grossly intact. A benign-appearing chondroid lesion is again noted in the right proximal humerus. IMPRESSION: 1. Cardiomegaly with evidence of congestive failure. 2. Bilateral airspace opacities likely represent pulmonary edema. Correlate clinically for evidence of a superimposed infectious/inflammatory pneumonitis. 3. Small pleural effusions with dependent consolidation. ACT 112: Negative or not required by law. Electronically signed by: Luis Meraz M.D. 09/16/2021 9:02 AM Discharge Plan Visit Data Patient Disposition: Admitted As Inpatient Discharge Instructions Interventions: ED Discharge Assessment Last Done: 09/16/21 17:45
[2021-09-16 08:09] LABS: Base Excess VBG 15.9 mEq/L; HCO3 VBG 46 mmol/L; Oxygen Saturation VBG 88.7 %; PCO2 VBG 88 mmHg (38-50); PO2 VBG 56 mmHg; pH VBG 7.33 (7.36-7.41)
[2021-09-16 08:33] LABS: INR 1.1 (0.9-1.1); Prothrombin Time 11.4 Seconds (9.0-12.0)
[2021-09-16 08:44] LABS: Basophils # (auto) 0.03 K/uL (0-0.2); Basophils % (auto) 0.4 %; Eosinophils # (auto) 0.18 K/uL (0-0.50); Eosinophils % (auto) 2.3 %; Hematocrit (blood only) 40.7 % (34.1-44.9); Hemoglobin 11.9 g/dl (12.0-16.0); Immature Granulocytes # (auto) 0.18 K/uL (0.00-0.02); Immature Granulocytes % (auto) 2.3 %; Lymphocytes # (auto) 1.19 K/uL (1.2-3.4); Lymphocytes % (auto) 15.3 %; Mean Corpuscular Hemoglobin 28.3 pg (25.0-34.0); Mean Corpuscular Hgb Conc 29.2 g/dL (32.0-36.0); Mean Corpuscular Volume 96.9 fL (80.0-100.0); Monocytes # (auto) 0.64 K/uL (0.24-0.82); Monocytes % (auto) 8.2 %; Neutrophils # (auto) 5.56 K/uL (1.4-6.5); Neutrophils % (auto) 71.5 %; Platelet Count 73 K/uL (130-400); Platelet Estimate Decreased (Normal); RDW Coefficient of Variation 15.9 % (11.5-14.5); RDW Standard Deviation 55.7 fL (36.4-46.3); Stomatocytes 3+; White Blood Count 7.78 K/ul (4.8-10.8)
[2021-09-16 08:52] LABS: Appearance Urine Clear (Clear); Bacteria Urine Automated 4+ (Negative); Bilirubin Urine Negative (Negative); Blood Urine Negative (Negative); Color Urine Yellow; Glucose Urine UA 1+ (Negative); Ketones Urine Negative (Negative); Leukocyte Esterase Urine 2+ (Negative); Nitrite Urine Positive (Negative); Protein Urine 2+ (Negative); RBC Urine Automated 0-4 /hpf (0-4); Specific Gravity Urine 1.017 (1.000-1.030); Urobilinogen Urine Negative (Negative); WBC Urine Automated >30 /hpf (0-5); pH Urine 5.5 (4.5-7.5)
[2021-09-16 09:02] LABS: Alanine Aminotransferase 4 U/L (7-52); Albumin Level 3.7 gm/dl (3.4-5.0); Alkaline Phosphatase 64 U/L (34-104); Anion Gap 4 (3-11); Aspartate Aminotransferase 10 U/L (13-39); BUN Creatinine Ratio 24.7 (10-20); Bilirubin,Total 0.4 mg/dl (0.2-1.0); Blood Urea Nitrogen 19 mg/dl (6-23); Calcium 8.3 mg/dl (8.5-10.1); Carbon Dioxide 43 mmol/L (21-32); Chloride 94 mmol/L (98-107); Est GFR (Non-African American) 77.7 ml/min; Glucose 102 mg/dl (70-99(Fasting)); Lipase 14 U/L (11-82); Magnesium 1.6 mg/dl (1.7-2.4); Potassium 3.6 mmol/L (3.5-5.1); Sodium 141 mmol/L (136-145); Total Protein 6.5 gm/dl (6.0-8.3); Troponin I High Sensitivity 18.5 pg/ml (0-14)
--- NOTE | 2021-09-16 09:03 | XRay Report ---
SINGLE VIEW CHEST CLINICAL HISTORY: Hypoxia. Covid. FINDINGS: 2 AP, portable, upright chest radiographs are compared to chest x-ray and chest CT dated 09/16/2020. Correlation is made with chest CT dated 08/11/2020. The examination is degraded by portable te chnique, large body habitus, and patient rotation. The heart is enlarged. There is pulmonary vascular congestion. Bilateral airspace opacities are noted, right slightly greater than left. There are smal l pleural effusions with dependent consolidation. No pneumothorax is seen. The skeletal structures ar e osteopenic. The bony thorax is grossly intact. A benign-appearing chondroid lesion is again noted i n the right proximal humerus. IMPRESSION: 1. Cardiomegaly with evidence of congestive failure. 2. Bilateral airspace opacities likely represent pulmonary edema. Correlate clinically for evidence o f a superimposed infectious/inflammatory pneumonitis. 3. Small pleural effusions with dependent consolidation. ACT 112: Negative or not required by law. Electronically signed by: Luis Meraz M.D. 09/16/2021 9:02 AM
[2021-09-16] MEDS ORDERED: MEROPENEM 500 MG in SYRINGE 0 ML IV STA (09:05)
--- NOTE | 2021-09-16 10:18 | History & Physical Report ---
Date of Service September 16, 2021 Assessment & Plan (1) COVID-19: Plan Acute on chronic respiratory failure with hypoxia and hypercarbia COVID 19 Pneumonia Patient came in with 2 weeks of worsening shortness of breath and feeling sick on the background of COVID-19 illness diagnosed 09/09 at PCP office, states she hasnot received any covid vaccine. Saturating 70% on room air on arrival, was reported to have mild confusion at presentation, was minimally drowsy but Ox3 at bedside. Holding neuropsychotropic drugs for now, reassess and resume in AM. At bedside, Patient on BiPAP 16/8, backup respiratory rate 16, FiO2 100%. Patient breathing with respiratory rate of early 20s to late 20s. Patient uses 5 L oxygen at home and BiPAP at night. Admitting VBG with pH of 7.33, PCO2 of 88; patient chronically hypercarbic upon chart review Admitting troponin 18.5, trend troponin. Pro-Nagi negative. BNP 100. Admitting CXR: Concern for pulmonary edema versus superimposed infectious/inflammatory pneumonitis with dependent consolidation. Maintain COVID isolation, incentive spirometry/flutter valve when able, currently dry cough, monitor for infection. Since with signs and symptoms for more than 5 - 7 days, does not qualify for remdesivir. Will use Decadron. Mucinex/Tessalon Perles/other symptomatic management including nebulizations. ABG in 4 hours- improving pCO2, abg prn for increased lethargy/confusion. Lasix prn Likely UTI: Admitting UA suggestive of UTI, patient does not complain pain or burning while passing urine, follow-up admitting urine culture. given meropenem in ED, for now monitor off antibiotic. Electrolyte abnormalities: Monitor and replete. NPO while on BPAP, once more stable and able to be off of BPAP, can start diet. Chronic Medical conditions: assess and resume other home meds when able to take PO and improving diet DVT prophylaxis: Lovenox, monitor platelets. Pt was recently put on eliquis 09/11 by OP provider as prophylaxis for VTE Px given comorbidities and covid, will continue w/ lovenox dvt Px while inpatient instead. Full code History of Present Illness Chief Complaint: feeling sick, cough, vomiting x 2 wks Primary Care Provider: Bairon Owens MD 70-year-old lady with PMH of T2DM, chronic respiratory failure with hypoxia and hypercapnia on 5 L oxygen at home (per pt) and BiPAP at night, JOSE, moderate persistent asthma, OHS, HFrEF due to hypertrophic cardiomyopathy, urinary incontinence/recurrent UTI, multiple antibiotic allergies, morbidly obese, cognitive deficit poststroke with minimal right-sided residual weakness walks with walker, thrombocytopenia presented to our ED 09/16 with complaint of worsening shortness of breath, feeling " awful" 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 Patient tested positive for COVID 09/09. Patient reports having dry cough and vomiting since last 2 weeks. The cough has been worsening associated with worsening shortness of breath. Patient reports decreased appetite but able to put down food/no vomit right away and multiple vomits per day, no blood in vomit. Patient reports myalgia. Patient denies pain or burning with passing urine. Patient does report having right-sided minimal residual weakness and is able to ambulate with walker. Patient uses 5 L oxygen at home and uses BiPAP during the night. Proper and clear communication was limited due to patient being on BPAP. Patient denies smoking tobacco/use of alcohol/use of recreational drugs or marijuana. Medication list obtained from the patient. Patient does not remember her home medications. Full Code. Allergies Allergy/AdvReac Type Severity Reaction Status Date / Time Insulins Allergy Severe LANTUS/LEVEMIR- Verified 09/16/21 09:46 HIVES/THROAT SWELLING moxifloxacin Allergy Severe HIVES Verified 09/16/21 09:46 nitrofurantoin Allergy Severe HIVES Verified 09/16/21 09:46 paroxetine Allergy Severe HIVES Verified 09/16/21 09:46 Quinolones Allergy Severe AVELOX & Verified 09/16/21 09:46 LEVAQUIN-HIVES amitriptyline Allergy Intermediate Sweats and Verified 09/16/21 09:46 itching buspirone Allergy Intermediate HIVES Verified 09/16/21 09:46 cephalexin Allergy Intermediate Hives Verified 09/16/21 09:46 citalopram Allergy Intermediate HIVES-RASH Verified 09/16/21 09:46 escitalopram Allergy Intermediate HIVES-RASH Verified 09/16/21 09:46 levofloxacin Allergy Intermediate Hives Verified 09/16/21 09:46 methadone Allergy Intermediate HIVES Verified 09/16/21 09:46 Penicillins Allergy Intermediate RASH,HIVES Verified 09/16/21 09:46 Serotonin 5HT-3 Antagonists Allergy Intermediate MIGRAINES Verified 09/16/21 09:46 TO SSRIs trazodone Allergy Intermediate BLOODY Verified 09/16/21 09:46 NOSE, HEADACHES,HIVES vancomycin Allergy Intermediate HIVES Verified 09/16/21 09:46 prednisone Allergy Mild CHEST Verified 09/16/21 09:46 TIGHTNESS carbamazepine Allergy Unknown HIVES-RASH- Verified 09/16/21 09:46 ITCHINESS cefepime Allergy Unknown face & arm Verified 09/16/21 09:46 redness/itching after 2nd or 3rd dose cefepime ceftriaxone Allergy Unknown Received Verified 09/16/21 09:46 in MTU (but needed benadryl for course of therapy Cipro Allergy Unknown ABD PAINS Verified 09/08/17 09:10 sertraline Allergy Unknown UNKNOWN Verified 09/16/21 09:46 sitagliptin Allergy Unknown HIVES Verified 09/16/21 09:46 azithromycin Allergy Hives Verified 09/16/21 09:46 Cephalosporins Allergy Hives Verified 09/16/21 09:46 [facility] Allergy Unknown Verified 09/16/21 09:46 fluoxetine AdvReac Severe ANAPHYLAXIS Verified 09/16/21 09:46 Tetracyclines AdvReac Severe HIVES Verified 09/16/21 09:46 Sulfa (Sulfonamide AdvReac Intermediate MIGRAINES Verified 09/16/21 09:46 Antibiotics) fexofenadine AdvReac Mild GI SYMPTOMS Verified 09/16/21 09:46 tizanidine AdvReac Mild ITCHING-HIV Verified 09/16/21 09:46 ES ciprofloxacin AdvReac Unknown ABD PAINS Verified 09/16/21 09:46 gentamicin AdvReac Unknown UNKNOWN Verified 09/16/21 09:46 lorazepam AdvReac Unknown Verified 09/16/21 09:46 blood Allergy Severe Anaphylaxis Uncoded 09/16/21 09:46 Home Medications Medication Instructions Recorded Confirmed Type celecoxib 200 mg capsule (Celebrex) 200 mg PO DAILY PRN Pain 10/24/19 09/16/21 History levothyroxine 100 mcg tablet 100 mcg PO DAILYBB 10/24/19 09/16/21 History montelukast 10 mg tablet 10 mg PO HS 10/24/19 09/16/21 History simvastatin 20 mg tablet 20 mg PO HS 10/24/19 09/16/21 History sumatriptan succinate 100 mg tablet 100 mg PO UD PRN Migraine Headache 10/24/19 09/16/21 History albuterol sulfate 2.5 mg continuous nebulization Q6H 08/11/20 09/16/21 History PRN Shortness Of Breath Or Wheezing duloxetine 60 mg capsule,delayed 60 mg PO DAILY 08/11/20 09/16/21 History release empagliflozin 25 mg tablet 25 mg PO QAM 08/11/20 09/16/21 History (Jardiance) folic acid 1 mg tablet 1 mg PO DAILY 08/11/20 09/16/21 History insulin degludec 200 unit/mL (3 68 unit subcut BID 08/11/20 09/16/21 History mL) subcutaneous pen (Tresiba FlexTouch U-200 insulin) insulin regular human 100 unit/mL 30 unit subcut .LUNCH 08/11/20 09/16/21 History injection solution (Novolin R Regular U-100 Insulin) insulin regular human 100 unit/mL 40 unit subcut .EVENING MEAL 08/11/20 09/16/21 History injection solution (Novolin R Regular U-100 Insulin) insulin regular human 100 unit/mL 70 unit subcut .BREAKFAST 08/11/20 09/16/21 History injection solution (Novolin R Regular U-100 Insulin) ketoconazole 2 % topical cream 1 applic topical BID 08/11/20 09/16/21 History levocetirizine 5 mg tablet 5 mg PO HS PRN Allergy Symptoms 08/11/20 09/16/21 History metformin 500 mg tablet,extended 2,000 mg PO DAILY 08/11/20 09/16/21 History release 24 hr mirtazapine 45 mg tablet 45 mg PO HS 08/11/20 09/16/21 History guaifenesin 200 mg tablet 200 mg PO TID PRN cough #15 tabs 08/18/20 09/16/21 Rx metoprolol tartrate 25 mg tablet 25 mg PO BID #60 tabs 08/18/20 09/16/21 Rx amlodipine 2.5 mg tablet 2.5 mg PO DAILY 09/16/20 09/16/21 History cyanocobalamin (vitamin B-12) 1,000 mcg PO DAILY 09/16/20 09/16/21 History 1,000 mcg tablet pregabalin 100 mg capsule 150 mg PO BID 09/16/20 09/16/21 History magnesium oxide 400 mg (241.3 mg 400 mg PO QAM #30 tabs 09/18/20 09/16/21 Rx magnesium) tablet apixaban 5 mg tablet (Eliquis) 5 mg PO BID 09/16/21 09/16/21 History aspirin 81 mg tablet,delayed 81 mg PO DAILY 09/16/21 09/16/21 History release clindamycin HCl 300 mg capsule 600 mg PO TID 09/16/21 09/16/21 History docusate sodium 100 mg capsule 100 mg PO BID 09/16/21 09/16/21 History (Colace) fluticasone fur. 100 mcg-umeclid 1 inh inhalation DAILY 09/16/21 09/16/21 History 62.5 mcg-vilant 25 mcg inhalat.powder furosemide 40 mg tablet 40 mg PO QAM PRN swelling 09/16/21 09/16/21 History pantoprazole 40 mg tablet,delayed 40 mg PO DAILY 09/16/21 09/16/21 History release potassium chloride 10 mEq 10 meq PO DAILY PRN lasix 09/16/21 09/16/21 History capsule,extended release Past Med/Surg History Medical History Acute on chronic respiratory failure with hypoxia and hypercapnia Cerebrovascular disease "history left thalamic stroke" CHF (congestive heart failure) Chronic hypercapnic respiratory failure Chronic pain disorder (01/24/14) COPD (chronic obstructive pulmonary disease) Cough with hemoptysis CVA (cerebral vascular accident) hx of L thalamus CVA Diabetes mellitus, type II Dyslipidemia Encephalopathy acute HLD (hyperlipidemia) Hypertension Hypertension Hypertrophic cardiomyopathy Hypothyroidism Metabolic encephalopathy Morbid obesity Morbid obesity Obesity hypoventilation syndrome JOSE (obstructive sleep apnea) Recurrent UTI Respiratory acidosis Surgical History H/O partial nephrectomy History of tonsillectomy Hx of nasal septoplasty S/P dilatation and curettage Status post tonsillectomy Family History Father Coronary heart disease Mother Diabetes Social History Smoking Status: Never smoker Second Hand Exposure: No; Hx Alcohol Use: No Hx Substance Use: No Preferred Language: [place]an Communication Ability: Effective 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 Physical Exam Physical Exam: GENERAL: minimally drowsy and oriented x3. NAD, on BPAP HEENT: No pallor, no icterus. Pupils equal, round and reactive to light. Oral mucosa moist. NECK: No JVD, no neck masses. HEART: S1 and S2 heard. Regular rate and rhythm. No murmur, no gallop. RESPIRATORY SYSTEM: Normal AP diameter. No accessory muscle use. No wheezing, b/b crackles. decreased breath sounds (2/2 morbid obesity) ABDOMEN: Soft, bowel sounds present, nontender, no distention. CENTRAL NERVOUS SYSTEM: No facial droop. Speech is clear. Obeys simple commands. Moves extremities. Rt Extremity minimally weak compared to left. EXTREMITIES: trace edema, no erythema seen. Results & Data Results & Data ([facility]) Vital Signs (Past 12 Hours) Vital Signs Temp Pulse Pulse Resp BP BP Pulse Ox 09/16/21 09:59 81 26 H 149/64 H 94 09/16/21 09:33 77 26 H 151/59 H 94 09/16/21 09:21 77 29 H 91 09/16/21 08:27 09/16/21 07:28 36.9 C 83 28 H 146/58 H 97 09/16/21 08:45 84 24 167/59 H 94 09/16/21 08:45 09/16/21 08:25 88 18 153/69 H 99 09/16/21 07:51 90 31 H 95 O2 Del Method FiO2 09/16/21 09:59 BiPAP 09/16/21 09:33 BiPAP 09/16/21 09:21 100 09/16/21 08:27 BiPAP 09/16/21 07:28 BiPAP 09/16/21 08:45 BiPAP 09/16/21 08:45 BiPAP 09/16/21 08:25 BiPAP 09/16/21 07:51 60
[2021-09-16] MEDS ORDERED: MAGNESIUM SULFATE / D5W 1 GM/100 ML BAG IV STA (10:22)
--- NOTE | 2021-09-16 10:57 | Electrocardiogram Report ---
Test Reason : Blood Pressure : / mmHG Vent. Rate : 093 BPM Atrial Rate : 093 BPM P-R Int : 142 ms QRS Dur : 088 ms QT Int : 376 ms P-R-T Axes : 016 006 051 degrees QTc Int : 467 ms Normal sinus rhythm Nonspecific T wave abnormality Abnormal ECG When compared with ECG of 16-SEP-2020 12:33, Premature atrial complexes are no longer Present Nonspecific T wave abnormality now evident in Anterior leads Confirmed by Devonte Gama ([id number]) on 09/16/2021 10:57:11 AM Referred By: REFERRED SELF Confirmed By:Rafal Gama
[2021-09-16 13:58] LABS: HCO3 ABG 44 mmol/L (19-24); Oxygen Saturation ABG 99.7 % (90-95); PCO2 ABG 72 mmHg (35-46); PO2 ABG 104 mmHg (80-95); pH ABG 7.39 (7.35-7.45)
[2021-09-16 13:59] LABS: Allen Test Pos (Pos)
[2021-09-16] MEDS ORDERED: GLUCAGON FOR INJ 1 MG VIAL SQ PRN (14:39)
[2021-09-16] MEDS ORDERED: ONDANSETRON INJ 2 MG/ML 2 ML VIAL IV PRN (14:39)
[2021-09-16] MEDS ORDERED: PHARMACY GLYCEMIC MGMT CONSULT PRN (14:39)
[2021-09-16] MEDS ORDERED: GLUCOSE 10 TAB/TUBE PO PRN (14:39)
[2021-09-16] MEDS ORDERED: CARBOHYDRATES FOR HYPOGLYCEMIA PO PRN (14:39)
[2021-09-16] MEDS ORDERED: MAGNESIUM HYDROXIDE SUSP 30 ML UDC PO PRN (14:39)
[2021-09-16] MEDS ORDERED: ALUMINUM/MAGNESIUM SUSP 30 ML UDC PO PRN (14:39)
[2021-09-16] MEDS ORDERED: POLYETHYLENE (MIRALAX) 17 GM PACK PO PRN (14:39)
[2021-09-16] MEDS ORDERED: GLUCOSE 40% GEL 15 GM TUBE PO PRN (14:39)
[2021-09-16] MEDS ORDERED: DEXTROSE 50% 50 ML SYRINGE IV PRN (14:39)
--- NOTE | 2021-09-16 14:57 | Pharmacy Report ---
Pharmacy Glycemic Short Note 2 - Date of Service September 16, 2021 - Glycemic Short BSG Results (Last 24 hours): 09/16/21 08:05 Glucose 102 H OUTPATIENT ANTIDIABETIC REGIMEN: * Jardiance 25mg PO Daily * Metformin 1000mg BID * Tresiba 68 units BID * Regular insulin 70 units with breakfast, 30 units with lunch, 40 units with dinner * A1c 5.5% 08/13/20, repeat A1c ordered ASSESSMENT: * 70 year old female admitted with COVID19, started on IV steroids, NPO * Patient on very large doses of insulin at home, but used only half of those doses when inpatient last year (was not on steroids at that time) * BSG 102mg/dl on admission * Note: pt with Lantus/Levemir allergy, will use NPH for basal insulin while inpatient * Still awaiting updated BSG for NPH dosing, will pass on to the next shift pharmacist. PLAN FOR INPATIENT GLYCEMIC CONTROL: * Hold outpatient diabetes medications * Basal insulin, to be determined, likely: * NPH 50 units SQ BID with meals * Bolus insulin * NovoLog per scale ACHS or Q6hrs while NPO * Goal Range: Low 110 mg/dL - High 140 mg/dL * Correction Factor: 8 mg/dL/unit * Nutritional / Prandial insulin per carb ratio of 1 unit per 2.5 grams CHO consumed
[2021-09-16] MEDS: ALBUT/IPRATROP 3MG/0.5MG NEB 3 ML VIAL NEB SCH ×3 (15:58→18:11)
[2021-09-16] MEDS: BENZONATATE 100 MG CAPSULE PO SCH ×2 (16:24→21:32)
[2021-09-16] MEDS: INSULIN ASPART PER UNIT SC SCH ×2 (16:24→20:55)
[2021-09-16] MEDS ORDERED: MEROPENEM 500 MG in SYRINGE 0 ML IV SCH (18:00)
[2021-09-16] MEDS: ACETAMINOPHEN 325 MG TAB PO PRN (18:37)
[2021-09-16] MEDS: guaiFENesin 600 MG TABCR PO SCH (21:33)
[2021-09-16] MEDS: METOPROLOL TARTRATE 25 MG TAB PO SCH (21:34)
[2021-09-16] MEDS: ENOXAPARIN INJ 40 MG/0.4 ML SYR SQ SCH (21:35)
[2021-09-16] MEDS: MIRTAZAPINE SOLTAB 15 MG PO SCH (21:35)
[2021-09-16] MEDS: SIMVASTATIN 20 MG TAB PO SCH (21:37)
[2021-09-16] MEDS: MONTELUKAST SODIUM 10 MG TABLET PO SCH (21:38)
[2021-09-16] MEDS: INSULIN HUMAN NPH SC SCH (22:05)
[2021-09-17] MEDS: INSULIN ASPART PER UNIT SC SCH ×4 (00:40→18:43)
[2021-09-17] MEDS: LEVOTHYROXINE SODIUM 100 MCG TABLET PO SCH (05:52)
[2021-09-17 06:54] LABS: Hematocrit (blood only) 34.3 % (34.1-44.9); Hemoglobin 10.2 g/dl (12.0-16.0); Mean Corpuscular Hemoglobin 27.9 pg (25.0-34.0); Mean Corpuscular Hgb Conc 29.7 g/dL (32.0-36.0); Mean Platelet Volume 11.5 fL (9.4-12.3); Platelet Count 71 K/uL (130-400); RDW Standard Deviation 55.2 fL (36.4-46.3); Red Blood Count 3.65 M/uL (3.93-5.22); White Blood Count 5.99 K/ul (4.8-10.8)
[2021-09-17] MEDS: ALBUT/IPRATROP 3MG/0.5MG NEB 3 ML VIAL NEB SCH ×4 (07:05→20:00)
[2021-09-17 07:18] LABS: Basophils # (auto) 0.02 K/uL (0-0.2); Basophils % (auto) 0.3 %; Eosinophils # (auto) 0.08 K/uL (0-0.50); Eosinophils % (auto) 1.3 %; Immature Granulocytes # (auto) 0.08 K/uL (0.00-0.02); Immature Granulocytes % (auto) 1.3 %; Lymphocytes # (auto) 1.17 K/uL (1.2-3.4); Lymphocytes % (auto) 19.5 %; Monocytes # (auto) 0.47 K/uL (0.24-0.82); Monocytes % (auto) 7.8 %; Neutrophils # (auto) 4.17 K/uL (1.4-6.5); Neutrophils % (auto) 69.8 %
[2021-09-17 07:24] LABS: Estimated Average Glucose 114 mg/dl; Hemoglobin A1C 5.6 % (4.5-5.6)
[2021-09-17 07:35] LABS: Albumin Globulin Ratio 1.3 (0.9-2); Albumin Level 3.2 gm/dl (3.4-5.0); BUN Creatinine Ratio 37.9 (10-20); Bilirubin,Total 0.5 mg/dl (0.2-1.0); Calcium 7.9 mg/dl (8.5-10.1); Est GFR (African American) 107.5 ml/min; Est GFR (Non-African American) 92.7 ml/min; Globulin 2.4 gm/dl (2.5-4.0); Magnesium 1.8 mg/dl (1.7-2.4); Potassium 3.9 mmol/L (3.5-5.1); Total Protein 5.6 gm/dl (6.0-8.3)
[2021-09-17] MEDS: INSULIN HUMAN NPH SC SCH ×2 (07:49→17:06)
[2021-09-17] MEDS ORDERED: FUROSEMIDE 40 MG/4 ML VIAL IV ONE ×2 (07:52→16:02)
[2021-09-17] MEDS: guaiFENesin 600 MG TABCR PO SCH ×2 (07:56→20:28)
[2021-09-17] MEDS: PANTOprazole 40 MG TAB PO SCH (07:56)
[2021-09-17] MEDS: BENZONATATE 100 MG CAPSULE PO SCH ×3 (07:56→20:28)
[2021-09-17] MEDS: FOLIC ACID 1 MG TAB PO SCH (07:58)
[2021-09-17] MEDS: amLODIPine BESYLATE 5 MG TAB PO SCH (07:58)
[2021-09-17] MEDS: MAGNESIUM OXIDE 400 MG TAB PO SCH (07:59)
[2021-09-17] MEDS: FLUTICASONE FUROATE 100MCG 14 PUFFS/INHALER INH SCH (07:59)
[2021-09-17] MEDS: CYANOCOBALAMIN (B-12) 500 MCG TABLET PO SCH (07:59)
[2021-09-17] MEDS: DULoxetine HCL 60 MG CAP PO SCH (07:59)
[2021-09-17] MEDS: METOPROLOL TARTRATE 25 MG TAB PO SCH ×2 (07:59→20:29)
[2021-09-17] MEDS: UMECLIDINIUM/VILANTEROL 62.5/25MCG 7 PUFFS/INHALER INH SCH (08:00)
[2021-09-17] MEDS ORDERED: [UNRECOGNIZED DRUG - MIXTURE] INH SCH (09:00)
[2021-09-17] MEDS: dexAMETHasone 6 MG in SYRINGE 0 ML IV SCH (10:10)
[2021-09-17] MEDS: ENOXAPARIN INJ 40 MG/0.4 ML SYR SQ SCH ×2 (12:01→21:21)
[2021-09-17] MEDS: DULoxetine HCL 30 MG CAP PO SCH (12:01)
--- NOTE | 2021-09-17 16:12 | Hospitalist Progress Note ---
Date of Service September 17, 2021 Assessment & Plan (1) COVID-19: Plan Acute on chronic respiratory failure with hypoxia and hypercarbia COVID 19 Pneumonia Patient came in with 2 weeks of worsening shortness of breath and feeling sick on the background of COVID-19 illness diagnosed 09/09 at PCP office, States she hasnot received any covid vaccine. Saturating 70% on room air on arrival, was reported to have mild confusion at presentation, was minimally drowsy but Ox3 at bedside. Holding neuropsychotropic drugs for now, reassess and resume in AM. Was on BiPAP 16/8, backup respiratory rate 16, FiO2 100%. Patient uses 5 L oxygen at home and BiPAP at night-. Admitting CXR: Concern for pulmonary edema versus superimposed infectious/inflammatory pneumonitis with dependent consolidation. Negative CRP and negative procalcitonin-likely COVID infection with superimposed CHF is making her short of breath and to be desaturated Maintain COVID isolation, incentive spirometry/flutter valve when able, currently dry cough, monitor for infection. Has been started on intravenous dexamethasone which will be continued even though there is no inflammation Does not qualify for remdesivir Mucinex/Tessalon Perles/other symptomatic management including nebulizations. She is clinically much better and has been communicating normally without any acute distress She received 1 dose of Lasix in the morning and will get another dose of 40 mg this afternoon Will monitor electrolytes Likely UTI: Admitting UA suggestive of UTI, patient does not complain pain or burning while passing urine, follow-up admitting urine culture. given meropenem in ED, for now monitor off antibiotic. Electrolyte abnormalities: Monitor and replete. NPO while on BPAP, once more stable and able to be off of BPAP, can start diet. Will advance diet as tolerated Chronic Medical conditions: assess and resume other home meds when able to take PO and improving diet DVT prophylaxis: Lovenox, monitor platelets. Pt was recently put on eliquis 09/11 by OP provider as prophylaxis for VTE Px given comorbidities and covid, will continue w/ lovenox dvt Px while inpatient instead. Full code Admission and Anticipated Discharge Date Admission Date: September 16, 2021 Subjective 09/17/2021 The patient was seen and examined in telemetry unit and in the COVID room She is fully vaccinated and was diagnosed to have COVID on of last month Noted to have desaturation and weakness She has been feeling much better since admission Review of Systems Review of Systems: All systems reviewed and are unremarkable except as noted below Physical Exam Physical Exam: Lying in bed comfortably Constitutional: well developed, well nourished, + ill appearing and + morbidly obese Eyes: PERRL, conjunctivae normal, anicteric sclerae ENMT: external ear and nose normal, oropharynx normal Neck: trachea midline, no thyromegaly Respiratory: no respiratory distress Auscultation: + diminished lung sounds and + crackles (At the bases) Cardiovascular: Rate/Rhythm: regular rate, regular rhythm and + bradycardic Heart Sounds: normal S1 and normal S2; no murmur Extremities: + edema (Trace edema bilaterally) Gastrointestinal (Abdomen): Inspection/Auscultation: normal bowel sounds; abdomen not distended Percussion/Palpation: abdomen soft; abdomen nontender Musculoskeletal: No acute arthritis in any joint Neurologic: Alert, awake and oriented x3. Moving all limbs but she has been almost bedbound for the last 2 to 3 years Lymphatic: no cervical or axillary lymphadenopathy Results & Data Results & Data ([place]) Vital Signs (Past 12 Hours) Vital Signs Temp Pulse Pulse Resp BP Pulse Ox O2 Del Method 09/17/21 14:54 58 L 19 90 Nasal Cannula 09/17/21 12:03 36.5 C 84 16 125/58 L 90 Nasal Cannula 09/17/21 08:00 Nasal Cannula 09/17/21 11:02 61 19 90 Nasal Cannula 09/17/21 09:19 72 09/17/21 07:50 36.9 C 66 20 108/53 L 88 L Nasal Cannula 09/17/21 07:11 09/17/21 07:06 63 17 94 BiPAP 09/17/21 04:40 36.6 C 68 18 134/60 95 BiPAP O2 Flow Rate FiO2 09/17/21 14:54 6 09/17/21 12:03 6 09/17/21 08:00 6 09/17/21 11:02 6 09/17/21 09:19 09/17/21 07:50 6 09/17/21 07:11 6 09/17/21 07:06 55 09/17/21 04:40 Laboratory Results Short CBC 09/17/21 Range/Units 06:20 WBC 5.99 (4.8-10.8) K/ul Hgb 10.2 L (12.0-16.0) g/dl Hct 34.3 (34.1-44.9) % Plt Count 71 L (130-400) K/uL BMP 09/17/21 06:20 Sodium 140 Potassium 3.9 Chloride 95 L Carbon Dioxide 43 H* BUN 22 Creatinine 0.58 L Glucose 88 Calcium 7.9 L Liver Function 09/17/21 Range/Units 06:20 Total Bilirubin 0.5 (0.2-1.0) mg/dl AST 8 L (13-39) U/L ALT 3 L (7-52) U/L Alkaline Phosphatase 47 (34-104) U/L Albumin 3.2 L (3.4-5.0) gm/dl Medications Administered Current Inpatient Medications Acetaminophen (Acetaminophen 325 Mg Tab) 650 mg PO Q4H PRN PRN Reason: Pain or Fever Stop: 10/16/21 14:38 Last Admin: 09/16/21 18:37 Dose: 650 mg Al Hydrox/Mg Hydrox/Simethicone (Aluminum/Magnesium Susp 30 Ml Udc) 15 ml PO Q4H PRN PRN Reason: Dyspepsia Stop: 10/16/21 14:38 Albuterol (Albut/Ipratrop 3mg/0.5mg Neb 3 Ml Vial) 3 ml NEB QIDR [facility]; Protocol Stop: 10/16/21 14:38 Last Admin: 09/17/21 14:54 Dose: 3 ml Amlodipine Besylate (Amlodipine Besylate 5 Mg Tab) 2.5 mg PO DAILY [facility] Stop: 10/17/21 08:59 Last Admin: 09/17/21 07:58 Dose: 2.5 mg Benzonatate (Benzonatate 100 Mg Capsule) 100 mg PO TID [facility] Stop: 10/16/21 14:59 Last Admin: 09/17/21 07:56 Dose: 100 mg Cyanocobalamin (Cyanocobalamin (B-12) 500 Mcg Tablet) 1,000 mcg PO DAILY [facility] Stop: 10/17/21 08:59 Last Admin: 09/17/21 07:59 Dose: 1,000 mcg Dextrose (Dextrose 50% 50 Ml Syringe) 25 - 50 ml IV UD PRN; Protocol PRN Reason: Hypoglycemia Protocol Stop: 10/16/21 14:38 Duloxetine HCl (Duloxetine Hcl 60 Mg Cap) 60 mg PO DAILY [facility] Stop: 10/17/21 08:59 Last Admin: 09/17/21 07:59 Dose: 60 mg Duloxetine HCl (Duloxetine Hcl 30 Mg Cap) 30 mg PO DAILY [facility] Stop: 10/17/21 08:59 Last Admin: 09/17/21 12:01 Dose: 30 mg Enoxaparin Sodium (Enoxaparin Inj 40 Mg/0.4 Ml Syr) 40 mg SQ Q12H [facility] Stop: 10/16/21 21:59 Last Admin: 09/17/21 12:01 Dose: 40 mg Fluticasone Furoate (Fluticasone Furoate 100mcg 14 Puffs/Inhaler) 1 puffs INH DAILY [facility] Stop: 10/17/21 08:59 Last Admin: 09/17/21 07:59 Dose: 1 puffs Folic Acid (Folic Acid 1 Mg Tab) 1 mg PO DAILY [facility] Stop: 10/17/21 08:59 Last Admin: 09/17/21 07:58 Dose: 1 mg Glucagon (Glucagon For Inj 1 Mg Vial) 1 mg SQ UD PRN; Protocol PRN Reason: Hypoglycemia Protocol Stop: 10/16/21 14:38 Glucose (Glucose 40% Gel 15 Gm Tube) 15 - 30 gm PO UD PRN; Protocol PRN Reason: Hypoglycemia Protocol Stop: 10/16/21 14:38 Glucose (Glucose 10 Tab/Tube) 4 - 8 tab PO UD PRN; Protocol PRN Reason: Hypoglycemia Treatment Stop: 10/16/21 14:38 Guaifenesin (Guaifenesin 600 Mg Tabcr) 600 mg PO Q12 [facility] Stop: 10/16/21 20:59 Last Admin: 09/17/21 07:56 Dose: 600 mg Dexamethasone 6 mg/ Syringe 1.5 mls @ 1 mls/min IV DAILY [facility] Stop: 09/27/21 08:59 Last Admin: 09/17/21 10:10 Dose: 1 mls/min Insulin Aspart (Insulin Aspart Per Unit) 0 units SC Q6 [facility] Stop: 10/16/21 15:14 Last Admin: 09/17/21 12:12 Dose: Not Given Insulin Human NPH (Insulin Human Nph) 0 units SC BIDM [facility]; Protocol Stop: 10/16/21 16:59 Last Admin: 09/17/21 07:49 Dose: Not Given Levothyroxine Sodium (Levothyroxine Sodium 100 Mcg Tablet) 100 mcg PO DAILYBB [facility] Stop: 10/17/21 06:29 Last Admin: 09/17/21 05:52 Dose: 100 mcg Magnesium Hydroxide (Magnesium Hydroxide Susp 30 Ml Udc) 30 ml PO Q12H PRN PRN Reason: Constipation Stop: 10/16/21 14:38 Magnesium Oxide (Magnesium Oxide 400 Mg Tab) 400 mg PO QAM [facility] Stop: 10/17/21 08:59 Last Admin: 09/17/21 07:59 Dose: 400 mg Metoprolol Tartrate (Metoprolol Tartrate 25 Mg Tab) 25 mg PO BID [facility] Stop: 10/16/21 20:59 Last Admin: 09/17/21 07:59 Dose: 25 mg Mirtazapine (Mirtazapine Soltab 15 Mg) 45 mg PO [facility] Stop: 10/16/21 20:59 Last Admin: 09/16/21 21:35 Dose: 45 mg Miscellaneous (Carbohydrates For Hypoglycemia ) 15 - 30 gm PO UD PRN PRN Reason: Hypoglycemia Protocol Stop: 10/16/21 14:38 Miscellaneous Information (Pharmacy Glycemic Mgmt Consult) 1 each N/A UD PRN PRN Reason: Consult Stop: 10/16/21 14:38 Montelukast Sodium (Montelukast Sodium 10 Mg Tablet) 10 mg PO [facility] Stop: 10/16/21 20:59 Last Admin: 09/16/21 21:38 Dose: 10 mg Ondansetron HCl (Ondansetron Inj 2 Mg/Ml 2 Ml Vial) 4 mg IV Q6H PRN PRN Reason: Nausea Stop: 10/16/21 14:38 Pantoprazole Sodium (Pantoprazole 40 Mg Tab) 40 mg PO DAILY [facility] Stop: 10/17/21 08:59 Last Admin: 09/17/21 07:56 Dose: 40 mg Polyethylene Glycol (Polyethylene (Miralax) 17 Gm Pack) 17 gm PO DAILY PRN PRN Reason: Constipation Stop: 10/16/21 14:38 Simvastatin (Simvastatin 20 Mg Tab) 20 mg PO [facility] Stop: 10/16/21 20:59 Last Admin: 09/16/21 21:37 Dose: 20 mg Umeclidinium/Vilanterol (Umeclidinium/Vilanterol 62.5/25mcg 7 Puffs/Inhaler) 1 puffs INH DAILY [facility] Stop: 10/17/21 08:59 Last Admin: 09/17/21 08:00 Dose: 1 puffs
[2021-09-17] MEDS: ACETAMINOPHEN 325 MG TAB PO PRN (20:26)
[2021-09-17] MEDS: MIRTAZAPINE SOLTAB 15 MG PO SCH (20:29)
[2021-09-17] MEDS: MONTELUKAST SODIUM 10 MG TABLET PO SCH (20:30)
[2021-09-17] MEDS: SIMVASTATIN 20 MG TAB PO SCH (20:30)
[2021-09-18] MEDS: INSULIN ASPART PER UNIT SC SCH ×5 (00:14→20:23)
[2021-09-18] MEDS: LEVOTHYROXINE SODIUM 100 MCG TABLET PO SCH (06:24)
[2021-09-18] MEDS: dexAMETHasone 6 MG in SYRINGE 0 ML IV SCH (07:31)
[2021-09-18] MEDS: INSULIN HUMAN NPH SC SCH ×2 (07:32→18:04)
[2021-09-18] MEDS: amLODIPine BESYLATE 5 MG TAB PO SCH (07:32)
[2021-09-18] MEDS: ACETAMINOPHEN 325 MG TAB PO PRN ×2 (07:32→22:50)
[2021-09-18] MEDS: PANTOprazole 40 MG TAB PO SCH (07:32)
[2021-09-18 07:33] LABS: BUN Creatinine Ratio 37.7 (10-20); Calcium 8.2 mg/dl (8.5-10.1); Creatinine Clr Calc Pharmacy 123.2 ml/min; Est GFR (African American) 105.7 ml/min; Est GFR (Non-African American) 91.2 ml/min; Magnesium 1.7 mg/dl (1.7-2.4); Phosphorus 2.7 mg/dl (2.5-4.9); Potassium 3.6 mmol/L (3.5-5.1)
[2021-09-18] MEDS: FOLIC ACID 1 MG TAB PO SCH (07:33)
[2021-09-18] MEDS: guaiFENesin 600 MG TABCR PO SCH ×2 (07:33→21:26)
[2021-09-18] MEDS: MAGNESIUM OXIDE 400 MG TAB PO SCH (07:33)
[2021-09-18] MEDS: DULoxetine HCL 30 MG CAP PO SCH (07:33)
[2021-09-18] MEDS: CYANOCOBALAMIN (B-12) 500 MCG TABLET PO SCH (07:33)
[2021-09-18] MEDS: DULoxetine HCL 60 MG CAP PO SCH (07:33)
[2021-09-18] MEDS: UMECLIDINIUM/VILANTEROL 62.5/25MCG 7 PUFFS/INHALER INH SCH (07:34)
[2021-09-18] MEDS: METOPROLOL TARTRATE 25 MG TAB PO SCH ×2 (07:34→21:26)
[2021-09-18 07:35] LABS: Basophils # (auto) 0.01 K/uL (0-0.2); Basophils % (auto) 0.2 %; Eosinophils # (auto) 0.05 K/uL (0-0.50); Hematocrit (blood only) 34.1 % (34.1-44.9); Hemoglobin 10.5 g/dl (12.0-16.0); Immature Granulocytes # (auto) 0.05 K/uL (0.00-0.02); Lymphocytes # (auto) 1.15 K/uL (1.2-3.4); Mean Corpuscular Hemoglobin 28.2 pg (25.0-34.0); Mean Corpuscular Hgb Conc 30.8 g/dL (32.0-36.0); Mean Corpuscular Volume 91.4 fL (80.0-100.0); Monocytes # (auto) 0.39 K/uL (0.24-0.82); Monocytes % (auto) 7.5 %; Neutrophils # (auto) 3.57 K/uL (1.4-6.5); Neutrophils % (auto) 68.3 %; Platelet Count 66 K/uL (130-400); RDW Standard Deviation 52.3 fL (36.4-46.3); Red Blood Count 3.73 M/uL (3.93-5.22); White Blood Count 5.22 K/ul (4.8-10.8)
[2021-09-18] MEDS: FLUTICASONE FUROATE 100MCG 14 PUFFS/INHALER INH SCH (07:35)
[2021-09-18] MEDS: ALBUT/IPRATROP 3MG/0.5MG NEB 3 ML VIAL NEB SCH ×4 (07:37→19:45)
[2021-09-18] MEDS: BENZONATATE 100 MG CAPSULE PO SCH ×3 (08:09→21:32)
[2021-09-18] MEDS ORDERED: FUROSEMIDE 40 MG/4 ML VIAL IV ONE (08:58)
[2021-09-18] MEDS ORDERED: POTASSIUM CHLORIDE CRTAB 20 MEQ TABCR PO STA (08:59)
--- NOTE | 2021-09-18 09:38 | Pharmacy Report ---
Pharmacy Glycemic Short Note 2 - Date of Service September 18, 2021 - Glycemic Short BSG Results (Last 24 hours): 09/17/21 09/17/21 09/17/21 12:02 17:03 20:23 Glucose POC Glucose 113 H 118 H 121 H 09/17/21 09/18/21 09/18/21 23:58 05:54 06:39 Glucose 72 POC Glucose 73 78 09/18/21 07:26 Glucose POC Glucose 76 OUTPATIENT ANTIDIABETIC REGIMEN: * Jardiance 25mg PO Daily * Metformin 1000mg BID * Tresiba 68 units BID * Regular insulin 70 units with breakfast, 30 units with lunch, 40 units with dinner * A1c 5.5% 08/13/20, repeat A1c ordered ASSESSMENT: 09/18 * Patient received a total of 17 units of insulin yesterday, all of which were novolog * BSGs remain lower 70-100s despite continued dexamethasone use. May loosen CR slightly this morning to prevent hypoglycemia. Will use scale for NPH daily with dinner if BSGs >180 mg/dL 09/16 * 70 year old female admitted with COVID19, started on IV steroids, NPO * Patient on very large doses of insulin at home, but used only half of those doses when inpatient last year (was not on steroids at that time) * BSG 102mg/dl on admission * Note: pt with Lantus/Levemir allergy, will use NPH for basal insulin while i npatient * Still awaiting updated BSG for NPH dosing, will pass on to the next shift pharmacist. PLAN FOR INPATIENT GLYCEMIC CONTROL: * Hold outpatient diabetes medications * Basal insulin * NPH 0-10 units daily with dinner if BSG >180 mg/dL * Bolus insulin - loosen CR * NovoLog per scale ACHS or Q6hrs while NPO * Goal Range: Low 110 mg/dL - High 140 mg/dL * Correction Factor: 8 mg/dL/unit * Nutritional / Prandial insulin per carb ratio of 1 unit per 3.5 grams CHO consumed
[2021-09-18] MEDS: ENOXAPARIN INJ 40 MG/0.4 ML SYR SQ SCH ×2 (10:03→21:32)
--- NOTE | 2021-09-18 11:22 | XRay Report ---
SINGLE VIEW CHEST CLINICAL HISTORY: Follow-up CHF. FINDINGS: 2 AP, portable, upright chest radiographs are compared to chest x-ray and chest CT dated 09/16/2020. Correlation is made with chest CT dated 08/11/2020. The examination is degraded by portable te chnique, large body habitus, and patient rotation. The heart is enlarged. Bone vascular congestion ruff s modestly improved. Persistent bilateral airspace opacities likely represent mild pulmonary edema. S mall pleural effusions are again noted with dependent consolidation. No pneumothorax is seen. The ske letal structures are osteopenic. The bony thorax is grossly intact. A benign-appearing chondroid lesi on is again noted in the right proximal humerus. IMPRESSION: 1. Cardiomegaly with evidence of congestive failure. This has modestly improved from previous. 2. Bilateral airspace opacities persistent likely represent pulmonary edema. 3. Small pleural effusions with dependent consolidation. ACT 112: Negative or not required by law. Electronically signed by: Luis Meraz M.D. 09/18/2021 11:21 AM
--- NOTE | 2021-09-18 14:41 | Hospitalist Progress Note ---
Date of Service September 18, 2021 Assessment & Plan (1) COVID-19: Plan Acute on chronic respiratory failure with hypoxia and hypercarbia COVID 19 Pneumonia Patient came in with 2 weeks of worsening shortness of breath and feeling sick on the background of COVID-19 illness diagnosed 09/09 at PCP office, States she hasnot received any covid vaccine. Saturating 70% on room air on arrival, was reported to have mild confusion at presentation, was minimally drowsy but Ox3 at bedside. Holding neuropsychotropic drugs for now, reassess and resume in AM. Was on BiPAP 16/8, backup respiratory rate 16, FiO2 100%. Patient uses 5 L oxygen at home and BiPAP at night-. Admitting CXR: Concern for pulmonary edema versus superimposed infectious/inflammatory pneumonitis with dependent consolidation. Negative CRP and negative procalcitonin-likely COVID infection with superimposed CHF is making her short of breath and to be desaturated Maintain COVID isolation, incentive spirometry/flutter valve when able, currently dry cough, monitor for infection. Has been started on intravenous dexamethasone which will be continued even though there is no inflammation Does not qualify for remdesivir Mucinex/Tessalon Perles/other symptomatic management including nebulizations. She is clinically much better and has been communicating normally without any acute distress She received 1 dose of Lasix in the morning and will get another dose of 40 mg this afternoon Given the continued fluid overload and worsening blood sugar will stop the IV dexamethasone Her CRP remains normal showing no signs of inflammation-we will monitor CRP CHF Condition deteriorated this morning with decreasing saturation Repeat chest x-ray showed persistence of pulmonary edema with small pleural effusion We will administer Lasix 40 mg twice daily Echocardiogram to evaluate LV function Likely UTI: Admitting UA suggestive of UTI, patient does not complain pain or burning while passing urine, follow-up admitting urine culture. given meropenem in ED, for now monitor off antibiotic. Electrolyte abnormalities: Monitor and replete. NPO while on BPAP, once more stable and able to be off of BPAP, can start diet. Will advance diet as tolerated Chronic Medical conditions: assess and resume other home meds when able to take PO and improving diet DVT prophylaxis: Lovenox, monitor platelets. Pt was recently put on eliquis 09/11 by OP provider as prophylaxis for VTE Px given comorbidities and covid, will continue w/ lovenox dvt Px while inpatient instead. Full code Admission and Anticipated Discharge Date Admission Date: September 16, 2021 Subjective 09/17/2021 The patient was seen and examined in telemetry unit and in the COVID room She is fully vaccinated and was diagnosed to have COVID on of last month Noted to have desaturation and weakness She has been feeling much better since admission 09/18/2021 The patient was seen and examined in telemetry unit and in the COVID room She has had shortness of breath this morning and required BiPAP Condition improved thereafter when I saw her in the room but she was still having 15 L oxygen through high flow nasal cannula She denies any other symptoms except weakness Review of Systems Review of Systems: All systems reviewed and are unremarkable except as noted below Physical Exam Physical Exam: Lying in bed comfortably with minimal shortness of breath at rest Constitutional: well developed, well nourished, + ill appearing and + morbidly obese Eyes: PERRL, conjunctivae normal, anicteric sclerae ENMT: external ear and nose normal, oropharynx normal Neck: trachea midline, no thyromegaly Respiratory: no respiratory distress Auscultation: + diminished lung sounds and + crackles (At the bases) Cardiovascular: Rate/Rhythm: regular rate, regular rhythm and + bradycardic Heart Sounds: normal S1 and normal S2; no murmur Extremities: + edema (Trace edema bilaterally) Gastrointestinal (Abdomen): Inspection/Auscultation: normal bowel sounds; abdomen not distended Percussion/Palpation: abdomen soft; abdomen nontender Musculoskeletal: No acute arthritis in any joint Neurologic: Alert, awake and oriented x3. Generally weak. Moving all limbs equally Lymphatic: no cervical or axillary lymphadenopathy Results & Data Results & Data ([facility]) Vital Signs (Past 12 Hours) Vital Signs Temp Pulse Pulse Resp BP Pulse Ox O2 Del Method 09/18/21 11:58 36.6 C 98 H 20 158/55 H 90 High Flow Nasal Cannula 09/18/21 10:53 86 20 91 Nasal Cannula 09/18/21 08:00 High Flow Nasal Cannula 09/18/21 08:32 80 09/18/21 07:40 83 20 Nasal Cannula 09/18/21 07:28 37.6 C H 83 20 170/55 H 88 L Nasal Cannula 09/18/21 03:00 36.9 C 65 20 131/69 92 Nasal Cannula O2 Flow Rate 09/18/21 11:58 15 09/18/21 10:53 15 09/18/21 08:00 15 09/18/21 08:32 09/18/21 07:40 6 09/18/21 07:28 6 09/18/21 03:00 Laboratory Results Short CBC 09/18/21 Range/Units 06:39 WBC 5.22 (4.8-10.8) K/ul Hgb 10.5 L (12.0-16.0) g/dl Hct 34.1 (34.1-44.9) % Plt Count 66 L (130-400) K/uL BMP 09/18/21 06:39 Sodium 140 Potassium 3.6 Chloride 92 L Carbon Dioxide 41 H* BUN 23 Creatinine 0.61 Glucose 72 Calcium 8.2 L Medications Administered Current Inpatient Medications Acetaminophen (Acetaminophen 325 Mg Tab) 650 mg PO Q4H PRN PRN Reason: Pain or Fever Stop: 10/16/21 14:38 Last Admin: 09/18/21 07:32 Dose: 650 mg Al Hydrox/Mg Hydrox/Simethicone (Aluminum/Magnesium Susp 30 Ml Udc) 15 ml PO Q4H PRN PRN Reason: Dyspepsia Stop: 10/16/21 14:38 Albuterol (Albut/Ipratrop 3mg/0.5mg Neb 3 Ml Vial) 3 ml NEB QIDR [facility]; Protocol Stop: 10/16/21 14:38 Last Admin: 09/18/21 10:52 Dose: 3 ml Amlodipine Besylate (Amlodipine Besylate 5 Mg Tab) 2.5 mg PO DAILY [facility] Stop: 10/17/21 08:59 Last Admin: 09/18/21 07:32 Dose: 2.5 mg Benzonatate (Benzonatate 100 Mg Capsule) 100 mg PO TID [facility] Stop: 10/16/21 14:59 Last Admin: 09/18/21 13:59 Dose: 100 mg Cyanocobalamin (Cyanocobalamin (B-12) 500 Mcg Tablet) 1,000 mcg PO DAILY [facility] Stop: 10/17/21 08:59 Last Admin: 09/18/21 07:33 Dose: 1,000 mcg Dextrose (Dextrose 50% 50 Ml Syringe) 25 - 50 ml IV UD PRN; Protocol PRN Reason: Hypoglycemia Protocol Stop: 10/16/21 14:38 Duloxetine HCl (Duloxetine Hcl 60 Mg Cap) 60 mg PO DAILY [facility] Stop: 10/17/21 08:59 Last Admin: 09/18/21 07:33 Dose: 60 mg Duloxetine HCl (Duloxetine Hcl 30 Mg Cap) 30 mg PO DAILY [facility] Stop: 10/17/21 08:59 Last Admin: 09/18/21 07:33 Dose: 30 mg Enoxaparin Sodium (Enoxaparin Inj 40 Mg/0.4 Ml Syr) 40 mg SQ Q12H [facility] Stop: 10/16/21 21:59 Last Admin: 09/18/21 10:03 Dose: 40 mg Fluticasone Furoate (Fluticasone Furoate 100mcg 14 Puffs/Inhaler) 1 puffs INH DAILY [facility] Stop: 10/17/21 08:59 Last Admin: 09/18/21 07:35 Dose: 1 puffs Folic Acid (Folic Acid 1 Mg Tab) 1 mg PO DAILY [facility] Stop: 10/17/21 08:59 Last Admin: 09/18/21 07:33 Dose: 1 mg Glucagon (Glucagon For Inj 1 Mg Vial) 1 mg SQ UD PRN; Protocol PRN Reason: Hypoglycemia Protocol Stop: 10/16/21 14:38 Glucose (Glucose 40% Gel 15 Gm Tube) 15 - 30 gm PO UD PRN; Protocol PRN Reason: Hypoglycemia Protocol Stop: 10/16/21 14:38 Glucose (Glucose 10 Tab/Tube) 4 - 8 tab PO UD PRN; Protocol PRN Reason: Hypoglycemia Treatment Stop: 10/16/21 14:38 Guaifenesin (Guaifenesin 600 Mg Tabcr) 600 mg PO Q12 [facility] Stop: 10/16/21 20:59 Last Admin: 09/18/21 07:33 Dose: 600 mg Dexamethasone 6 mg/ Syringe 1.5 mls @ 1 mls/min IV DAILY [facility] Stop: 09/27/21 08:59 Last Admin: 09/18/21 07:31 Dose: 1 mls/min Insulin Aspart (Insulin Aspart Per Unit) 0 units SC ACHS [facility] Stop: 10/18/21 11:29 Last Admin: 09/18/21 12:59 Dose: 17 units Insulin Human NPH (Insulin Human Nph) 0 units SC DAILY@1700 [facility]; Protocol Stop: 10/18/21 16:59 Levothyroxine Sodium (Levothyroxine Sodium 100 Mcg Tablet) 100 mcg PO DAILYBB [facility] Stop: 10/17/21 06:29 Last Admin: 09/18/21 06:24 Dose: 100 mcg Magnesium Hydroxide (Magnesium Hydroxide Susp 30 Ml Udc) 30 ml PO Q12H PRN PRN Reason: Constipation Stop: 10/16/21 14:38 Magnesium Oxide (Magnesium Oxide 400 Mg Tab) 400 mg PO QAM [facility] Stop: 10/17/21 08:59 Last Admin: 09/18/21 07:33 Dose: 400 mg Metoprolol Tartrate (Metoprolol Tartrate 25 Mg Tab) 25 mg PO BID [facility] Stop: 10/16/21 20:59 Last Admin: 09/18/21 07:34 Dose: 25 mg Mirtazapine (Mirtazapine Soltab 15 Mg) 45 mg PO [facility] Stop: 10/16/21 20:59 Last Admin: 09/17/21 20:29 Dose: 45 mg Miscellaneous (Carbohydrates For Hypoglycemia ) 15 - 30 gm PO UD PRN PRN Reason: Hypoglycemia Protocol Stop: 10/16/21 14:38 Miscellaneous Information (Pharmacy Glycemic Mgmt Consult) 1 each N/A UD PRN PRN Reason: Consult Stop: 10/16/21 14:38 Montelukast Sodium (Montelukast Sodium 10 Mg Tablet) 10 mg PO [facility] Stop: 10/16/21 20:59 Last Admin: 09/17/21 20:30 Dose: 10 mg Ondansetron HCl (Ondansetron Inj 2 Mg/Ml 2 Ml Vial) 4 mg IV Q6H PRN PRN Reason: Nausea Stop: 10/16/21 14:38 Pantoprazole Sodium (Pantoprazole 40 Mg Tab) 40 mg PO DAILY [facility] Stop: 10/17/21 08:59 Last Admin: 09/18/21 07:32 Dose: 40 mg Polyethylene Glycol (Polyethylene (Miralax) 17 Gm Pack) 17 gm PO DAILY PRN PRN Reason: Constipation Stop: 10/16/21 14:38 Simvastatin (Simvastatin 20 Mg Tab) 20 mg PO [facility] Stop: 10/16/21 20:59 Last Admin: 09/17/21 20:30 Dose: 20 mg Umeclidinium/Vilanterol (Umeclidinium/Vilanterol 62.5/25mcg 7 Puffs/Inhaler) 1 puffs INH DAILY [facility] Stop: 10/17/21 08:59 Last Admin: 09/18/21 07:34 Dose: 1 puffs
[2021-09-18] MEDS: FUROSEMIDE 40 MG/4 ML VIAL IV SCH (21:26)
[2021-09-18] MEDS: MONTELUKAST SODIUM 10 MG TABLET PO SCH (21:27)
[2021-09-18] MEDS: MIRTAZAPINE SOLTAB 15 MG PO SCH (21:27)
[2021-09-18] MEDS: SIMVASTATIN 20 MG TAB PO SCH (21:28)
[2021-09-19] MEDS: LEVOTHYROXINE SODIUM 100 MCG TABLET PO SCH (05:43)
[2021-09-19] MEDS: ALBUT/IPRATROP 3MG/0.5MG NEB 3 ML VIAL NEB SCH ×4 (07:18→19:16)
[2021-09-19 08:05] LABS: BUN Creatinine Ratio 36.7 (10-20); C Reactive Protein 0.54 mg/dl (0-0.5); Calcium 8.2 mg/dl (8.5-10.1); Creatinine Clr Calc Pharmacy 124.9 ml/min; Est GFR (African American) 106.3 ml/min; Est GFR (Non-African American) 91.7 ml/min; Potassium 3.5 mmol/L (3.5-5.1)
[2021-09-19 08:08] LABS: Hematocrit (blood only) 33.8 % (34.1-44.9); Hemoglobin 10.5 g/dl (12.0-16.0); Mean Corpuscular Hgb Conc 31.1 g/dL (32.0-36.0); Mean Corpuscular Volume 90.1 fL (80.0-100.0); Mean Platelet Volume 11.9 fL (9.4-12.3); Platelet Count 81 K/uL (130-400); RDW Standard Deviation 53.5 fL (36.4-46.3); Red Blood Count 3.75 M/uL (3.93-5.22); White Blood Count 5.86 K/ul (4.8-10.8)
[2021-09-19 08:09] LABS: Basophils # (auto) 0.01 K/uL (0-0.2); Basophils % (auto) 0.2 %; Eosinophils # (auto) 0.07 K/uL (0-0.50); Eosinophils % (auto) 1.2 %; Immature Granulocytes # (auto) 0.06 K/uL (0.00-0.02); Lymphocytes # (auto) 1.16 K/uL (1.2-3.4); Lymphocytes % (auto) 19.8 %; Monocytes # (auto) 0.57 K/uL (0.24-0.82); Monocytes % (auto) 9.7 %; Neutrophils # (auto) 3.99 K/uL (1.4-6.5); Neutrophils % (auto) 68.1 %; Stomatocytes 1+
[2021-09-19] MEDS: INSULIN ASPART PER UNIT SC SCH ×4 (08:20→20:32)
[2021-09-19] MEDS: amLODIPine BESYLATE 5 MG TAB PO SCH (08:28)
[2021-09-19] MEDS: BENZONATATE 100 MG CAPSULE PO SCH ×3 (08:31→20:47)
[2021-09-19] MEDS: CYANOCOBALAMIN (B-12) 500 MCG TABLET PO SCH (08:32)
[2021-09-19] MEDS: DULoxetine HCL 30 MG CAP PO SCH (08:34)
[2021-09-19] MEDS: DULoxetine HCL 60 MG CAP PO SCH (08:34)
[2021-09-19] MEDS: FLUTICASONE FUROATE 100MCG 14 PUFFS/INHALER INH SCH (08:35)
[2021-09-19] MEDS: FOLIC ACID 1 MG TAB PO SCH (08:36)
[2021-09-19] MEDS: FUROSEMIDE 40 MG/4 ML VIAL IV SCH ×2 (08:37→20:37)
[2021-09-19] MEDS: guaiFENesin 600 MG TABCR PO SCH ×2 (08:39→20:37)
[2021-09-19] MEDS: MAGNESIUM OXIDE 400 MG TAB PO SCH (08:40)
[2021-09-19] MEDS: PANTOprazole 40 MG TAB PO SCH (08:41)
[2021-09-19] MEDS: METOPROLOL TARTRATE 25 MG TAB PO SCH ×2 (08:41→20:36)
[2021-09-19] MEDS: UMECLIDINIUM/VILANTEROL 62.5/25MCG 7 PUFFS/INHALER INH SCH (08:42)
[2021-09-19] MEDS: ENOXAPARIN INJ 40 MG/0.4 ML SYR SQ SCH ×2 (08:43→21:14)
--- NOTE | 2021-09-19 14:35 | Hospitalist Progress Note ---
Date of Service September 19, 2021 Assessment & Plan (1) COVID-19: Plan Acute on chronic respiratory failure with hypoxia and hypercarbia COVID 19 Pneumonia Patient came in with 2 weeks of worsening shortness of breath and feeling sick on the background of COVID-19 illness diagnosed 09/09 at PCP office, States she hasnot received any covid vaccine. Saturating 70% on room air on arrival, was reported to have mild confusion at presentation, was minimally drowsy but Ox3 at bedside. Holding neuropsychotropic drugs for now, reassess and resume in AM. Was on BiPAP 16/8, backup respiratory rate 16, FiO2 100%. Patient uses 5 L oxygen at home and BiPAP at night-. Admitting CXR: Concern for pulmonary edema versus superimposed infectious/inflammatory pneumonitis with dependent consolidation. Negative CRP and negative procalcitonin-likely COVID infection with superimposed CHF is making her short of breath and to be desaturated Maintain COVID isolation, incentive spirometry/flutter valve when able, currently dry cough, monitor for infection. Has been started on intravenous dexamethasone which will be continued even though there is no inflammation Does not qualify for remdesivir Mucinex/Tessalon Perles/other symptomatic management including nebulizations. She is clinically much better and has been communicating normally without any acute distress She received 1 dose of Lasix in the morning and will get another dose of 40 mg this afternoon Given the continued fluid overload and worsening blood sugar will stop the IV dexamethasone Her CRP remains normal showing no signs of inflammation-we will monitor CRP CHF Condition deteriorated this morning with decreasing saturation Repeat chest x-ray showed persistence of pulmonary edema with small pleural effusion We will administer Lasix 40 mg twice daily Echocardiogram to evaluate LV function: Mild concentric LVH, LV wall motion is normal, EF 55 to 60%, aortic valve sclerosis mild without significant aortic valvular stenosis, grade 1 diastolic dysfunction, small right pleural effusion and Doppler finding does not suggest pulmonary hypertension We will continue intravenous Lasix now for fluid overload and congestive changes in chest x-ray Likely UTI: Admitting UA suggestive of UTI, patient does not complain pain or burning while passing urine, Urine culture is growing Klebsiella aerogenes Sensitivity noted-we will discuss with the pharmacist further antibiotic to be prescribed Electrolyte abnormalities: Monitor and replete. NPO while on BPAP, once more stable and able to be off of BPAP, can start diet. Will advance diet as tolerated Chronic Medical conditions: assess and resume other home meds when able to take PO and improving diet DVT prophylaxis: Lovenox, monitor platelets. Pt was recently put on eliquis 09/11 by OP provider as prophylaxis for VTE Px given comorbidities and covid, will continue w/ lovenox dvt Px while inpatient instead. Full code Admission and Anticipated Discharge Date Admission Date: September 16, 2021 Subjective 09/17/2021 The patient was seen and examined in telemetry unit and in the COVID room She is fully vaccinated and was diagnosed to have COVID on of last month Noted to have desaturation and weakness She has been feeling much better since admission 09/18/2021 The patient was seen and examined in telemetry unit and in the COVID room She has had shortness of breath this morning and required BiPAP Condition improved thereafter when I saw her in the room but she was still having 15 L oxygen through high flow nasal cannula She denies any other symptoms except weakness 09/19/2021 The patient was seen and examined in telemetry unit and in the COVID room She has been stable and communicating normally She has been getting very short of breath with minimal activity even during eating She denies any chest pain and/or palpitation Review of Systems Review of Systems: All systems reviewed and are unremarkable except as noted below Physical Exam Physical Exam: Lying in bed comfortably with minimal shortness of breath at rest Constitutional: well developed, well nourished, + ill appearing and + morbidly obese Eyes: PERRL, conjunctivae normal, anicteric sclerae ENMT: external ear and nose normal, oropharynx normal Neck: trachea midline, no thyromegaly Respiratory: no respiratory distress Auscultation: + diminished lung sounds and + crackles (At the bases) Cardiovascular: Rate/Rhythm: regular rate, regular rhythm and + bradycardic Heart Sounds: normal S1 and normal S2; no murmur Extremities: + edema (Trace edema bilaterally) Gastrointestinal (Abdomen): Inspection/Auscultation: normal bowel sounds; abdomen not distended Percussion/Palpation: abdomen soft; abdomen nontender Musculoskeletal: No acute arthritis in any joint Neurologic: Alert, awake and oriented x3. Generally weak and lethargic Lymphatic: no cervical or axillary lymphadenopathy Results & Data Results & Data ([facility]) Vital Signs (Past 12 Hours) Vital Signs Temp Pulse Pulse Resp BP Pulse Ox O2 Del Method 09/19/21 12:14 37.4 C 72 21 125/54 L 95 BiPAP 09/19/21 08:00 Nasal Cannula 09/19/21 10:41 72 26 H 97 09/19/21 10:40 72 25 H 98 BiPAP 09/19/21 07:30 09/19/21 08:37 79 22 90 09/19/21 08:11 37.2 C 80 18 120/65 80 L Nasal Cannula, High Flow Nasal Cannula 09/19/21 07:19 85 25 H 95 09/19/21 07:18 85 25 H 95 BiPAP 09/19/21 02:35 68 18 93 09/19/21 02:55 36.5 C 75 13 145/68 H 94 BiPAP O2 Flow Rate FiO2 09/19/21 12:14 09/19/21 08:00 16 09/19/21 10:41 80 09/19/21 10:40 80 09/19/21 07:30 15 09/19/21 08:37 90 09/19/21 08:11 15 09/19/21 07:19 70 09/19/21 07:18 70 09/19/21 02:35 70 09/19/21 02:55 70 Laboratory Results Short CBC 09/19/21 Range/Units 06:48 WBC 5.86 (4.8-10.8) K/ul Hgb 10.5 L (12.0-16.0) g/dl Hct 33.8 L (34.1-44.9) % Plt Count 81 L (130-400) K/uL BMP 09/19/21 06:48 Sodium 141 Potassium 3.5 Chloride 91 L Carbon Dioxide 42 H* BUN 22 Creatinine 0.60 Glucose 95 Calcium 8.2 L Medications Administered Current Inpatient Medications Acetaminophen (Acetaminophen 325 Mg Tab) 650 mg PO Q4H PRN PRN Reason: Pain or Fever Stop: 10/16/21 14:38 Last Admin: 09/18/21 22:50 Dose: 650 mg Al Hydrox/Mg Hydrox/Simethicone (Aluminum/Magnesium Susp 30 Ml Udc) 15 ml PO Q4H PRN PRN Reason: Dyspepsia Stop: 10/16/21 14:38 Albuterol (Albut/Ipratrop 3mg/0.5mg Neb 3 Ml Vial) 3 ml NEB QIDR [facility]; Protocol Stop: 10/16/21 14:38 Last Admin: 09/19/21 10:39 Dose: 3 ml Amlodipine Besylate (Amlodipine Besylate 5 Mg Tab) 2.5 mg PO DAILY [facility] Stop: 10/17/21 08:59 Last Admin: 09/19/21 08:28 Dose: 2.5 mg Benzonatate (Benzonatate 100 Mg Capsule) 100 mg PO TID [facility] Stop: 10/16/21 14:59 Last Admin: 09/19/21 14:17 Dose: 100 mg Cyanocobalamin (Cyanocobalamin (B-12) 500 Mcg Tablet) 1,000 mcg PO DAILY [facility] Stop: 10/17/21 08:59 Last Admin: 09/19/21 08:32 Dose: 1,000 mcg Dextrose (Dextrose 50% 50 Ml Syringe) 25 - 50 ml IV UD PRN; Protocol PRN Reason: Hypoglycemia Protocol Stop: 10/16/21 14:38 Duloxetine HCl (Duloxetine Hcl 60 Mg Cap) 60 mg PO DAILY [facility] Stop: 10/17/21 08:59 Last Admin: 09/19/21 08:34 Dose: 60 mg Duloxetine HCl (Duloxetine Hcl 30 Mg Cap) 30 mg PO DAILY [facility] Stop: 10/17/21 08:59 Last Admin: 09/19/21 08:34 Dose: 30 mg Enoxaparin Sodium (Enoxaparin Inj 40 Mg/0.4 Ml Syr) 40 mg SQ Q12H [facility] Stop: 10/16/21 21:59 Last Admin: 09/19/21 08:43 Dose: 40 mg Fluticasone Furoate (Fluticasone Furoate 100mcg 14 Puffs/Inhaler) 1 puffs INH DAILY [facility] Stop: 10/17/21 08:59 Last Admin: 09/19/21 08:35 Dose: 1 puffs Folic Acid (Folic Acid 1 Mg Tab) 1 mg PO DAILY [facility] Stop: 10/17/21 08:59 Last Admin: 09/19/21 08:36 Dose: 1 mg Furosemide (Furosemide 40 Mg/4 Ml Vial) 40 mg IV BID [facility] Stop: 10/18/21 20:59 Last Admin: 09/19/21 08:37 Dose: 40 mg Glucagon (Glucagon For Inj 1 Mg Vial) 1 mg SQ UD PRN; Protocol PRN Reason: Hypoglycemia Protocol Stop: 10/16/21 14:38 Glucose (Glucose 40% Gel 15 Gm Tube) 15 - 30 gm PO UD PRN; Protocol PRN Reason: Hypoglycemia Protocol Stop: 10/16/21 14:38 Glucose (Glucose 10 Tab/Tube) 4 - 8 tab PO UD PRN; Protocol PRN Reason: Hypoglycemia Treatment Stop: 10/16/21 14:38 Guaifenesin (Guaifenesin 600 Mg Tabcr) 600 mg PO Q12 [facility] Stop: 10/16/21 20:59 Last Admin: 09/19/21 08:39 Dose: 600 mg Insulin Aspart (Insulin Aspart Per Unit) 0 units SC ACHS [facility]; Protocol Stop: 10/18/21 11:29 Last Admin: 09/19/21 12:32 Dose: Not Given Insulin Human NPH (Insulin Human Nph) 0 units SC DAILY@1700 [facility]; Protocol Stop: 10/18/21 16:59 Last Admin: 09/18/21 18:04 Dose: Not Given Levothyroxine Sodium (Levothyroxine Sodium 100 Mcg Tablet) 100 mcg PO DAILYBB [facility] Stop: 10/17/21 06:29 Last Admin: 09/19/21 05:43 Dose: 100 mcg Magnesium Hydroxide (Magnesium Hydroxide Susp 30 Ml Udc) 30 ml PO Q12H PRN PRN Reason: Constipation Stop: 10/16/21 14:38 Magnesium Oxide (Magnesium Oxide 400 Mg Tab) 400 mg PO QAM [facility] Stop: 10/17/21 08:59 Last Admin: 09/19/21 08:40 Dose: 400 mg Metoprolol Tartrate (Metoprolol Tartrate 25 Mg Tab) 25 mg PO BID [facility] Stop: 10/16/21 20:59 Last Admin: 09/19/21 08:41 Dose: 25 mg Mirtazapine (Mirtazapine Soltab 15 Mg) 45 mg PO HS [facility] Stop: 10/16/21 20:59 Last Admin: 09/18/21 21:27 Dose: 45 mg Miscellaneous (Carbohydrates For Hypoglycemia ) 15 - 30 gm PO UD PRN PRN Reason: Hypoglycemia Protocol Stop: 10/16/21 14:38 Miscellaneous Information (Pharmacy Glycemic Mgmt Consult) 1 each N/A UD PRN PRN Reason: Consult Stop: 10/16/21 14:38 Montelukast Sodium (Montelukast Sodium 10 Mg Tablet) 10 mg PO HS [facility] Stop: 10/16/21 20:59 Last Admin: 09/18/21 21:27 Dose: 10 mg Ondansetron HCl (Ondansetron Inj 2 Mg/Ml 2 Ml Vial) 4 mg IV Q6H PRN PRN Reason: Nausea Stop: 10/16/21 14:38 Pantoprazole Sodium (Pantoprazole 40 Mg Tab) 40 mg PO DAILY [facility] Stop: 10/17/21 08:59 Last Admin: 09/19/21 08:41 Dose: 40 mg Polyethylene Glycol (Polyethylene (Miralax) 17 Gm Pack) 17 gm PO DAILY PRN PRN Reason: Constipation Stop: 10/16/21 14:38 Simvastatin (Simvastatin 20 Mg Tab) 20 mg PO HS [facility] Stop: 10/16/21 20:59 Last Admin: 09/18/21 21:28 Dose: 20 mg Umeclidinium/Vilanterol (Umeclidinium/Vilanterol 62.5/25mcg 7 Puffs/Inhaler) 1 puffs INH DAILY [facility] Stop: 10/17/21 08:59 Last Admin: 09/19/21 08:42 Dose: 1 puffs
[2021-09-19] MEDS ORDERED: ERTAPENEM SODIUM 10 ML IV STA (14:38)
[2021-09-19] MEDS: ERTAPENEM SODIUM 1,000 MG in SYRINGE 0 ML IV SCH (15:23)
[2021-09-19] MEDS: INSULIN HUMAN NPH SC SCH (17:06)
[2021-09-19] MEDS: MIRTAZAPINE SOLTAB 15 MG PO SCH (20:36)
[2021-09-19] MEDS: MONTELUKAST SODIUM 10 MG TABLET PO SCH (20:36)
[2021-09-19] MEDS: SIMVASTATIN 20 MG TAB PO SCH (20:37)
[2021-09-20] MEDS: LEVOTHYROXINE SODIUM 100 MCG TABLET PO SCH (06:38)
[2021-09-20 07:09] LABS: Basophils # (auto) 0.03 K/uL (0-0.2); Basophils % (auto) 0.4 %; Eosinophils # (auto) 0.11 K/uL (0-0.50); Eosinophils % (auto) 1.6 %; Hematocrit (blood only) 35.4 % (34.1-44.9); Hemoglobin 10.7 g/dl (12.0-16.0); Immature Granulocytes # (auto) 0.05 K/uL (0.00-0.02); Immature Granulocytes % (auto) 0.7 %; Lymphocytes # (auto) 0.78 K/uL (1.2-3.4); Lymphocytes % (auto) 11.3 %; Mean Corpuscular Hemoglobin 27.7 pg (25.0-34.0); Mean Corpuscular Hgb Conc 30.2 g/dL (32.0-36.0); Mean Corpuscular Volume 91.7 fL (80.0-100.0); Mean Platelet Volume 12.8 fL (9.4-12.3); Monocytes # (auto) 0.55 K/uL (0.24-0.82); Neutrophils # (auto) 5.39 K/uL (1.4-6.5); Platelet Count 78 K/uL (130-400); RDW Coefficient of Variation 16.3 % (11.5-14.5); RDW Standard Deviation 54.2 fL (36.4-46.3); Red Blood Count 3.86 M/uL (3.93-5.22); White Blood Count 6.91 K/ul (4.8-10.8)
[2021-09-20 07:48] LABS: BUN Creatinine Ratio 33.9 (10-20); C Reactive Protein 0.86 mg/dl (0-0.5); Calcium 8.2 mg/dl (8.5-10.1); Creatinine Clr Calc Pharmacy 120.1 ml/min; Est GFR (African American) 105.1 ml/min; Est GFR (Non-African American) 90.7 ml/min; Potassium 3.6 mmol/L (3.5-5.1)
[2021-09-20] MEDS: ALBUT/IPRATROP 3MG/0.5MG NEB 3 ML VIAL NEB SCH ×4 (07:53→19:43)
[2021-09-20] MEDS: INSULIN ASPART PER UNIT SC SCH ×4 (08:45→20:13)
[2021-09-20] MEDS: BENZONATATE 100 MG CAPSULE PO SCH ×3 (08:50→20:35)
[2021-09-20] MEDS: CYANOCOBALAMIN (B-12) 500 MCG TABLET PO SCH (08:52)
[2021-09-20] MEDS: DULoxetine HCL 60 MG CAP PO SCH (08:53)
[2021-09-20] MEDS: DULoxetine HCL 30 MG CAP PO SCH (08:53)
[2021-09-20] MEDS: amLODIPine BESYLATE 5 MG TAB PO SCH (08:54)
[2021-09-20] MEDS: UMECLIDINIUM/VILANTEROL 62.5/25MCG 7 PUFFS/INHALER INH SCH (08:54)
[2021-09-20] MEDS: guaiFENesin 600 MG TABCR PO SCH ×2 (08:55→20:30)
[2021-09-20] MEDS: FLUTICASONE FUROATE 100MCG 14 PUFFS/INHALER INH SCH (08:55)
[2021-09-20] MEDS: FUROSEMIDE 40 MG/4 ML VIAL IV SCH ×2 (08:56→20:31)
[2021-09-20] MEDS: FOLIC ACID 1 MG TAB PO SCH (08:56)
[2021-09-20] MEDS: MAGNESIUM OXIDE 400 MG TAB PO SCH (08:57)
[2021-09-20] MEDS: METOPROLOL TARTRATE 25 MG TAB PO SCH ×2 (08:57→20:30)
[2021-09-20] MEDS: PANTOprazole 40 MG TAB PO SCH (08:58)
[2021-09-20] MEDS: ENOXAPARIN INJ 40 MG/0.4 ML SYR SQ SCH ×2 (08:58→21:05)
--- NOTE | 2021-09-20 14:09 | XRay Report ---
XR chest 1V portable HISTORY: 70 years-old Female Covid 19,CHF acute shortness of breath. COVID Positive. COMPARISON: Chest radiograph 09/18/2021 TECHNIQUE: Portable AP view of the chest FINDINGS: Cardiac silhouette is enlarged. No pneumothorax. Pulmonary vascular congestion. Right greater than le ft layering pleural effusions and bibasilar consolidation redemonstrated. There is decreased pulmonar y edema compared to the prior study. Degenerative changes of the shoulders and spine with partially i soo proximal right humeral chondral lesion. IMPRESSION: 1. Cardiomegaly with mildly improved pulmonary edema. 2. There are persistent right greater than left pleural effusions with bibasilar consolidation. ACT 112: Negative or not required by law. The above report was generated using voice recognition software. It may contain grammatical, syntax o r spelling errors. Electronically signed by: Dioni Turpin M.D. 09/20/2021 2:07 PM
--- NOTE | 2021-09-20 15:01 | Pharmacy Report ---
Pharmacy Glycemic Short Note 2 - Date of Service September 20, 2021 - Glycemic Short BSG Results (Last 24 hours): 09/19/21 09/19/21 09/20/21 16:15 20:13 06:22 Glucose 121 H POC Glucose 117 H 108 H 09/20/21 09/20/21 07:42 11:09 Glucose POC Glucose 123 H 142 H OUTPATIENT ANTIDIABETIC REGIMEN: * Jardiance 25 mg PO Daily * Metformin 1000 mg BID * Tresiba 68 units SC BID * Regular insulin SC 70 units with breakfast, 30 units with lunch, 40 units with dinner * A1c = 5.6% (09/17/21) ASSESSMENT: 09/20: * Sangeetha received only 10 units of insulin yesterday, all bolus. BSGs well controlled: [id number] mg/dL. * Fasting BSG well controlled at 123 mg/dL this AM. * No changes made over last 48 hour. 09/18: * Patient received a total of 17 units of insulin yesterday, all of which were novolog * BSGs remain lower 70-100s despite continued dexamethasone use. May loosen CR slightly this morning to prevent hypoglycemia. Will use scale for NPH daily with dinner if BSGs >180 mg/dL 09/16: * 70 year old female admitted with COVID19, started on IV steroids, NPO * Patient on very large doses of insulin at home, but used only half of those doses when inpatient last year (was not on steroids at that time) * BSG 102mg/dl on admission * Note: pt with Lantus/Levemir allergy, will use NPH for basal insulin while inpatient * Still awaiting updated BSG for NPH dosing, will pass on to the next shift pharmacist. PLAN FOR INPATIENT GLYCEMIC CONTROL: * Hold outpatient diabetes medications * Basal insulin * NPH 0-10 units daily with dinner if BSG >180 mg/dL * Bolus insulin * NovoLog per scale ACHS or Q6hrs while NPO * Goal Range: Low 110 mg/dL - High 140 mg/dL * Correction Factor: 8 mg/dL/unit * Nutritional / Prandial insulin per carb ratio of 1 unit per 3.5 grams CHO consumed
[2021-09-20] MEDS: ERTAPENEM SODIUM 1,000 MG in SYRINGE 0 ML IV SCH (15:27)
--- NOTE | 2021-09-20 16:19 | Hospitalist Progress Note ---
Date of Service September 20, 2021 Assessment & Plan (1) COVID-19: Plan Acute on chronic respiratory failure with hypoxia and hypercarbia COVID 19 Pneumonia Patient came in with 2 weeks of worsening shortness of breath and feeling sick on the background of COVID-19 illness diagnosed 09/09 at PCP office, States she hasnot received any covid vaccine. Saturating 70% on room air on arrival, was reported to have mild confusion at presentation, was minimally drowsy but Ox3 at bedside. Holding neuropsychotropic drugs for now, reassess and resume in AM. Was on BiPAP 16/8, backup respiratory rate 16, FiO2 100%. Patient uses 5 L oxygen at home and BiPAP at night-. Admitting CXR: Concern for pulmonary edema versus superimposed infectious/inflammatory pneumonitis with dependent consolidation. Negative CRP and negative procalcitonin-likely COVID infection with superimposed CHF is making her short of breath and to be desaturated Maintain COVID isolation, incentive spirometry/flutter valve when able, currently dry cough, monitor for infection. Has been started on intravenous dexamethasone which will be continued even though there is no inflammation Does not qualify for remdesivir Mucinex/Tessalon Perles/other symptomatic management including nebulizations. She is clinically much better and has been communicating normally without any acute distress She received 1 dose of Lasix in the morning and will get another dose of 40 mg this afternoon Given the continued fluid overload and worsening blood sugar will stop the IV dexamethasone Her CRP remains normal showing no signs of inflammation-we will monitor CRP CHF-diastolic heart failure with fluid overload Condition deteriorated this morning with decreasing saturation Repeat chest x-ray showed persistence of pulmonary edema with small pleural effusion We will administer Lasix 40 mg twice daily Echocardiogram to evaluate LV function: Mild concentric LVH, LV wall motion is normal, EF 55 to 60%, aortic valve sclerosis mild without significant aortic valvular stenosis, grade 1 diastolic dysfunction, small right pleural effusion and Doppler finding does not suggest pulmonary hypertension Repeat chest x-ray on 09/20/2021 showed worsening of CHF and right more than left pleural effusion Will increase the dose of Lasix to 80 mg twice daily Will ask pulmonary service for possible thoracentesis tomorrow Likely UTI: Admitting UA suggestive of UTI, patient does not complain pain or burning while passing urine, Urine culture is growing Klebsiella aerogenes Sensitivity noted-we will discuss with the pharmacist further antibiotic to be prescribed She has been on ertapenem for UTI Electrolyte abnormalities: Monitor and replete. NPO while on BPAP, once more stable and able to be off of BPAP, can start diet. Will advance diet as tolerated Chronic Medical conditions: assess and resume other home meds when able to take PO and improving diet DVT prophylaxis: Lovenox, monitor platelets. Pt was recently put on eliquis 09/11 by OP provider as prophylaxis for VTE Px given comorbidities and covid, will continue w/ lovenox dvt Px while inpatient instead. Full code Admission and Anticipated Discharge Date Admission Date: September 16, 2021 Subjective 09/17/2021 The patient was seen and examined in telemetry unit and in the COVID room She is fully vaccinated and was diagnosed to have COVID on of last month Noted to have desaturation and weakness She has been feeling much better since admission 09/18/2021 The patient was seen and examined in telemetry unit and in the COVID room She has had shortness of breath this morning and required BiPAP Condition improved thereafter when I saw her in the room but she was still having 15 L oxygen through high flow nasal cannula She denies any other symptoms except weakness 09/19/2021 The patient was seen and examined in telemetry unit and in the COVID room She has been stable and communicating normally She has been getting very short of breath with minimal activity even during eating She denies any chest pain and/or palpitation 09/20/2021 The patient was seen and examined in telemetry unit and in the COVID room She has not improved and requiring 40 L oxygen per minute to maintain saturation through high flow nasal cannula She feels otherwise stable and wants to go home Review of Systems Review of Systems: All systems reviewed and are unremarkable except as noted below Physical Exam Physical Exam: Lying in bed comfortably with minimal shortness of breath at rest Constitutional: well developed, well nourished, + ill appearing and + morbidly obese Eyes: PERRL, conjunctivae normal, anicteric sclerae ENMT: external ear and nose normal, oropharynx normal Neck: trachea midline, no thyromegaly Respiratory: no respiratory distress Auscultation: + diminished lung sounds and + crackles (At the bases) Cardiovascular: Rate/Rhythm: regular rate, regular rhythm and + bradycardic Heart Sounds: normal S1 and normal S2; no murmur Extremities: + edema (Trace edema bilaterally) Gastrointestinal (Abdomen): Inspection/Auscultation: normal bowel sounds; abdomen not distended Percussion/Palpation: abdomen soft; abdomen nontender Musculoskeletal: No acute arthritis in any joint Neurologic: Alert, awake and oriented x3 Lymphatic: no cervical or axillary lymphadenopathy Results & Data Results & Data ([facility]) Vital Signs (Past 12 Hours) Vital Signs Temp Pulse Pulse Resp BP Pulse Ox O2 Del Method 09/20/21 15:52 80 20 93 High Flow Nasal Cannula, Oxyhood 09/20/21 15:00 36.6 C 82 20 119/51 L 95 High Flow Nasal Cannula 09/20/21 11:12 37.3 C 87 20 128/63 92 High Flow Nasal Cannula 09/20/21 10:54 83 22 90 High Flow Nasal Cannula 09/20/21 10:33 84 09/20/21 10:33 High Flow Nasal Cannula 09/20/21 08:05 91 H 20 93 High Flow Nasal Cannula 09/20/21 07:53 88 22 88 L Nasal Cannula 09/20/21 07:43 37.3 C 85 20 116/65 88 L Nasal Cannula O2 Flow Rate FiO2 09/20/21 15:52 40 100 09/20/21 15:00 40 100 09/20/21 11:12 40 100 09/20/21 10:54 40 100 09/20/21 10:33 09/20/21 10:33 40 09/20/21 08:05 40 100 09/20/21 07:53 15 09/20/21 07:43 15 Laboratory Results Short CBC 09/20/21 Range/Units 06:22 WBC 6.91 (4.8-10.8) K/ul Hgb 10.7 L (12.0-16.0) g/dl Hct 35.4 (34.1-44.9) % Plt Count 78 L (130-400) K/uL BMP 09/20/21 06:22 Sodium 139 Potassium 3.6 Chloride 89 L Carbon Dioxide 39 H BUN 21 Creatinine 0.62 Glucose 121 H Calcium 8.2 L Medications Administered Current Inpatient Medications Acetaminophen (Acetaminophen 325 Mg Tab) 650 mg PO Q4H PRN PRN Reason: Pain or Fever Stop: 10/16/21 14:38 Last Admin: 09/18/21 22:50 Dose: 650 mg Al Hydrox/Mg Hydrox/Simethicone (Aluminum/Magnesium Susp 30 Ml Udc) 15 ml PO Q4H PRN PRN Reason: Dyspepsia Stop: 10/16/21 14:38 Albuterol (Albut/Ipratrop 3mg/0.5mg Neb 3 Ml Vial) 3 ml NEB QIDR [facility]; Protocol Stop: 10/16/21 14:38 Last Admin: 09/20/21 15:52 Dose: 3 ml Amlodipine Besylate (Amlodipine Besylate 5 Mg Tab) 2.5 mg PO DAILY [facility] Stop: 10/17/21 08:59 Last Admin: 09/20/21 08:54 Dose: 2.5 mg Benzonatate (Benzonatate 100 Mg Capsule) 100 mg PO TID [facility] Stop: 10/16/21 14:59 Last Admin: 09/20/21 15:23 Dose: 100 mg Cyanocobalamin (Cyanocobalamin (B-12) 500 Mcg Tablet) 1,000 mcg PO DAILY [facility] Stop: 10/17/21 08:59 Last Admin: 09/20/21 08:52 Dose: 1,000 mcg Dextrose (Dextrose 50% 50 Ml Syringe) 25 - 50 ml IV UD PRN; Protocol PRN Reason: Hypoglycemia Protocol Stop: 10/16/21 14:38 Duloxetine HCl (Duloxetine Hcl 60 Mg Cap) 60 mg PO DAILY [facility] Stop: 10/17/21 08:59 Last Admin: 09/20/21 08:53 Dose: 60 mg Duloxetine HCl (Duloxetine Hcl 30 Mg Cap) 30 mg PO DAILY [facility] Stop: 10/17/21 08:59 Last Admin: 09/20/21 08:53 Dose: 30 mg Enoxaparin Sodium (Enoxaparin Inj 40 Mg/0.4 Ml Syr) 40 mg SQ Q12H [facility] Stop: 10/16/21 21:59 Last Admin: 09/20/21 08:58 Dose: 40 mg Fluticasone Furoate (Fluticasone Furoate 100mcg 14 Puffs/Inhaler) 1 puffs INH DAILY [facility] Stop: 10/17/21 08:59 Last Admin: 09/20/21 08:55 Dose: 1 puffs Folic Acid (Folic Acid 1 Mg Tab) 1 mg PO DAILY [facility] Stop: 10/17/21 08:59 Last Admin: 09/20/21 08:56 Dose: 1 mg Furosemide (Furosemide 40 Mg/4 Ml Vial) 80 mg IV BID [facility] Stop: 10/20/21 20:59 Glucagon (Glucagon For Inj 1 Mg Vial) 1 mg SQ UD PRN; Protocol PRN Reason: Hypoglycemia Protocol Stop: 10/16/21 14:38 Glucose (Glucose 40% Gel 15 Gm Tube) 15 - 30 gm PO UD PRN; Protocol PRN Reason: Hypoglycemia Protocol Stop: 10/16/21 14:38 Glucose (Glucose 10 Tab/Tube) 4 - 8 tab PO UD PRN; Protocol PRN Reason: Hypoglycemia Treatment Stop: 10/16/21 14:38 Guaifenesin (Guaifenesin 600 Mg Tabcr) 600 mg PO Q12 [facility] Stop: 10/16/21 20:59 Last Admin: 09/20/21 08:55 Dose: 600 mg Ertapenem 1,000 mg/ Syringe 10 mls @ 2 mls/min IV Q24H [facility]; Protocol Stop: 09/29/21 14:59 Last Admin: 09/20/21 15:27 Dose: 2 mls/min Insulin Aspart (Insulin Aspart Per Unit) 0 units SC ACHS [facility]; Protocol Stop: 10/18/21 11:29 Last Admin: 09/20/21 12:23 Dose: 8 units Insulin Human NPH (Insulin Human Nph) 0 units SC DAILY@1700 [facility]; Protocol Stop: 10/18/21 16:59 Last Admin: 09/19/21 17:06 Dose: Not Given Levothyroxine Sodium (Levothyroxine Sodium 100 Mcg Tablet) 100 mcg PO DAILYBB [facility] Stop: 10/17/21 06:29 Last Admin: 09/20/21 06:38 Dose: 100 mcg Magnesium Hydroxide (Magnesium Hydroxide Susp 30 Ml Udc) 30 ml PO Q12H PRN PRN Reason: Constipation Stop: 10/16/21 14:38 Magnesium Oxide (Magnesium Oxide 400 Mg Tab) 400 mg PO QAM [facility] Stop: 10/17/21 08:59 Last Admin: 09/20/21 08:57 Dose: 400 mg Metoprolol Tartrate (Metoprolol Tartrate 25 Mg Tab) 25 mg PO BID [facility] Stop: 10/16/21 20:59 Last Admin: 09/20/21 08:57 Dose: 25 mg Mirtazapine (Mirtazapine Soltab 15 Mg) 45 mg PO HS [facility] Stop: 10/16/21 20:59 Last Admin: 09/19/21 20:36 Dose: 45 mg Miscellaneous (Carbohydrates For Hypoglycemia ) 15 - 30 gm PO UD PRN PRN Reason: Hypoglycemia Protocol Stop: 10/16/21 14:38 Miscellaneous Information (Pharmacy Glycemic Mgmt Consult) 1 each N/A UD PRN PRN Reason: Consult Stop: 10/16/21 14:38 Montelukast Sodium (Montelukast Sodium 10 Mg Tablet) 10 mg PO HS [facility] Stop: 10/16/21 20:59 Last Admin: 09/19/21 20:36 Dose: 10 mg Ondansetron HCl (Ondansetron Inj 2 Mg/Ml 2 Ml Vial) 4 mg IV Q6H PRN PRN Reason: Nausea Stop: 10/16/21 14:38 Pantoprazole Sodium (Pantoprazole 40 Mg Tab) 40 mg PO DAILY [facility] Stop: 10/17/21 08:59 Last Admin: 09/20/21 08:58 Dose: 40 mg Polyethylene Glycol (Polyethylene (Miralax) 17 Gm Pack) 17 gm PO DAILY PRN PRN Reason: Constipation Stop: 10/16/21 14:38 Simvastatin (Simvastatin 20 Mg Tab) 20 mg PO HS [facility] Stop: 10/16/21 20:59 Last Admin: 09/19/21 20:37 Dose: 20 mg Umeclidinium/Vilanterol (Umeclidinium/Vilanterol 62.5/25mcg 7 Puffs/Inhaler) 1 puffs INH DAILY [facility] Stop: 10/17/21 08:59 Last Admin: 09/20/21 08:54 Dose: 1 puffs
[2021-09-20] MEDS: INSULIN HUMAN NPH SC SCH (17:00)
[2021-09-20] MEDS: MONTELUKAST SODIUM 10 MG TABLET PO SCH (20:30)
[2021-09-20] MEDS: MIRTAZAPINE SOLTAB 15 MG PO SCH (20:30)
[2021-09-20] MEDS: SIMVASTATIN 20 MG TAB PO SCH (20:30)
[2021-09-21] MEDS: LEVOTHYROXINE SODIUM 100 MCG TABLET PO SCH (05:25)
[2021-09-21 06:59] LABS: Calcium 8.4 mg/dl (8.5-10.1); Creatinine Clr Calc Pharmacy 100.6 ml/min; Est GFR (Non-African American) 82.9 ml/min; Magnesium 1.8 mg/dl (1.7-2.4); Potassium 3.1 mmol/L (3.5-5.1)
[2021-09-21] MEDS: ALBUT/IPRATROP 3MG/0.5MG NEB 3 ML VIAL NEB SCH ×4 (07:22→19:22)
[2021-09-21] MEDS ORDERED: POTASSIUM CHLORIDE CRTAB 20 MEQ TABCR PO STA (08:31)
[2021-09-21] MEDS: FUROSEMIDE 40 MG/4 ML VIAL IV SCH ×2 (09:08→21:24)
[2021-09-21] MEDS: MAGNESIUM OXIDE 400 MG TAB PO SCH (09:09)
[2021-09-21] MEDS: DULoxetine HCL 60 MG CAP PO SCH (09:09)
[2021-09-21] MEDS: FOLIC ACID 1 MG TAB PO SCH (09:09)
[2021-09-21] MEDS: amLODIPine BESYLATE 5 MG TAB PO SCH (09:09)
[2021-09-21] MEDS: CYANOCOBALAMIN (B-12) 500 MCG TABLET PO SCH (09:09)
[2021-09-21] MEDS: PANTOprazole 40 MG TAB PO SCH (09:10)
[2021-09-21] MEDS: METOPROLOL TARTRATE 25 MG TAB PO SCH ×2 (09:10→20:54)
[2021-09-21] MEDS: DULoxetine HCL 30 MG CAP PO SCH (09:10)
[2021-09-21] MEDS: ENOXAPARIN INJ 40 MG/0.4 ML SYR SQ SCH ×2 (09:12→22:28)
[2021-09-21] MEDS: guaiFENesin 600 MG TABCR PO SCH ×2 (09:12→20:54)
[2021-09-21] MEDS: FLUTICASONE FUROATE 100MCG 14 PUFFS/INHALER INH SCH (09:12)
[2021-09-21] MEDS: UMECLIDINIUM/VILANTEROL 62.5/25MCG 7 PUFFS/INHALER INH SCH (09:12)
[2021-09-21] MEDS: BENZONATATE 100 MG CAPSULE PO SCH ×4 (09:21→20:54)
[2021-09-21] MEDS: INSULIN ASPART PER UNIT SC SCH ×4 (09:54→21:23)
--- NOTE | 2021-09-21 12:10 | Pharmacy Report ---
Pharmacy Glycemic Sign Off Nt - Date of Service September 21, 2021 - Assessment & Plan ASSESSMENT: * Pharmacy was consulted by Debra Sinha PA-C, on 09/16/21 for glycemic control and to write orders per [facility] inpatient glycemic control protocol. * Major changes made by pharmacy to antidiabetic regimen include: * Holding outpatient oral antidiabetic medications * Changing Tresiba to NPH for steroid use given covid diagnosis * Changing regular insulin to Novolog for correctional/prandial needs * Patient has been receiving/requiring 10-12 units of insulin (all bolus) per day for adequate glycemic control * BSGs ranging 76-189 mg/dl * Regimen has not required any adjustments over the past 72 hrs to achieve this level of control * Do not anticipate further changes in patient status that would quickly deteriorate glycemic control (i.e. patient to be NPO for upcoming procedure, steroids tapering, starting tube feedings, etc). * Please see recommendations for outpatient antidiabetic regimen below. PLAN FOR INPATIENT GLYCEMIC CONTROL: No changes needed to current regimen. * Continue basal insulin with NPH 0-10 units SC with dinner per scale (see eMAR for further details) * Continue NovoLog per scale ACHS/Q6hrs while NPO * Goal range = 110-140 mg/dl * CF = 8 mg/dl/unit * CR = 1 unit for ever 3.5 g CHO consumed * Pharmacy is signing off of glycemic consult and will no longer be making adjustments to inpatient regimen. Please feel free to re-consult if needed. Thank you.
[2021-09-21 14:07] LABS: Base Excess ABG 21.6 mEq/L (-9-1.8); HCO3 ABG 46 mmol/L (19-24); Oxygen Saturation ABG 88.6 % (90-95); PCO2 ABG 47 mmHg (35-46); PO2 ABG 51 mmHg (80-95)
[2021-09-21 14:08] LABS: Allen Test Pos (Pos)
[2021-09-21] MEDS: ERTAPENEM SODIUM 1,000 MG in SYRINGE 0 ML IV SCH (14:13)
--- NOTE | 2021-09-21 14:16 | Hospitalist Progress Note ---
Date of Service September 21, 2021 Assessment & Plan (1) COVID-19: Plan Acute on chronic respiratory failure with hypoxia and hypercarbia COVID 19 Pneumonia Patient came in with 2 weeks of worsening shortness of breath and feeling sick on the background of COVID-19 illness diagnosed 09/09 at PCP office, States she hasnot received any covid vaccine. Saturating 70% on room air on arrival, was reported to have mild confusion at presentation, was minimally drowsy but Ox3 at bedside. Holding neuropsychotropic drugs for now, reassess and resume in AM. Was on BiPAP 16/8, backup respiratory rate 16, FiO2 100%. Patient uses 5 L oxygen at home and BiPAP at night-. Admitting CXR: Concern for pulmonary edema versus superimposed infectious/inflammatory pneumonitis with dependent consolidation. Negative CRP and negative procalcitonin-likely COVID infection with superimposed CHF is making her short of breath and to be desaturated Maintain COVID isolation, incentive spirometry/flutter valve when able, currently dry cough, monitor for infection. Has been started on intravenous dexamethasone which will be continued even though there is no inflammation Does not qualify for remdesivir Mucinex/Tessalon Perles/other symptomatic management including nebulizations. She is clinically much better and has been communicating normally without any acute distress She received 1 dose of Lasix in the morning and will get another dose of 40 mg this afternoon Given the continued fluid overload and worsening blood sugar will stop the IV dexamethasone CRP remains normal She has been requiring more oxygen to maintain saturation and the chest x-ray looks worse with pleural effusion Pulmonary service consulted for further evaluation CHF-diastolic heart failure with fluid overload Condition deteriorated this morning with decreasing saturation Repeat chest x-ray showed persistence of pulmonary edema with small pleural effusion We will administer Lasix 40 mg twice daily Echocardiogram to evaluate LV function: Mild concentric LVH, LV wall motion is normal, EF 55 to 60%, aortic valve sclerosis mild without significant aortic valvular stenosis, grade 1 diastolic dysfunction, small right pleural effusion and Doppler finding does not suggest pulmonary hypertension Repeat chest x-ray on 09/20/2021 showed worsening of CHF and right more than left pleural effusion She has been getting 80 mg Lasix IV since yesterday evening Appreciate pulmonary input and recommendation Likely UTI: Admitting UA suggestive of UTI, patient does not complain pain or burning while passing urine, Urine culture is growing Klebsiella aerogenes Sensitivity noted-we will discuss with the pharmacist further antibiotic to be prescribed She has been on ertapenem for UTI Electrolyte abnormalities: Monitor and replete. NPO while on BPAP, once more stable and able to be off of BPAP, can start diet. Will advance diet as tolerated Chronic Medical conditions: assess and resume other home meds when able to take PO and improving diet DVT prophylaxis: Lovenox, monitor platelets. Pt was recently put on eliquis 09/11 by OP provider as prophylaxis for VTE Px given comorbidities and covid, will continue w/ lovenox dvt Px while inpatient instead. Full code Admission and Anticipated Discharge Date Admission Date: September 16, 2021 Subjective 09/17/2021 The patient was seen and examined in telemetry unit and in the COVID room She is fully vaccinated and was diagnosed to have COVID on of last month Noted to have desaturation and weakness She has been feeling much better since admission 09/18/2021 The patient was seen and examined in telemetry unit and in the COVID room She has had shortness of breath this morning and required BiPAP Condition improved thereafter when I saw her in the room but she was still having 15 L oxygen through high flow nasal cannula She denies any other symptoms except weakness 09/19/2021 The patient was seen and examined in telemetry unit and in the COVID room She has been stable and communicating normally She has been getting very short of breath with minimal activity even during eating She denies any chest pain and/or palpitation 09/20/2021 The patient was seen and examined in telemetry unit and in the COVID room She has not improved and requiring 40 L oxygen per minute to maintain saturation through high flow nasal cannula She feels otherwise stable and wants to go home 09/21/2021 The patient was seen and examined in telemetry unit and in the COVID room She has been feeling much worse and has been requiring more oxygen to maintain saturation She was also noted to be a little confused today She wanted to go home and started to cry when I examined her this afternoon She has been communicating normally without any shortness of breath in between speech Review of Systems Review of Systems: All systems reviewed and are unremarkable except as noted below Physical Exam Physical Exam: Lying in bed comfortably with minimal shortness of breath at rest Constitutional: well developed, well nourished, + ill appearing and + morbidly obese Eyes: PERRL, conjunctivae normal, anicteric sclerae ENMT: external ear and nose normal, oropharynx normal Neck: trachea midline, no thyromegaly Respiratory: no respiratory distress Auscultation: + diminished lung sounds and + crackles (At the bases) Cardiovascular: Rate/Rhythm: regular rate, regular rhythm and + bradycardic Heart Sounds: normal S1 and normal S2; no murmur Extremities: + edema (Trace edema bilaterally) Gastrointestinal (Abdomen): Inspection/Auscultation: normal bowel sounds; abdomen not distended Percussion/Palpation: abdomen soft; abdomen nontender Musculoskeletal: No acute arthritis involving any joint Neurologic: Alert, awake. Looks depressed and has been crying to go home. Lymphatic: no cervical or axillary lymphadenopathy Results & Data Results & Data ([facility]) Vital Signs (Past 12 Hours) Vital Signs Temp Pulse Pulse Resp BP Pulse Ox O2 Del Method 09/21/21 13:08 High Flow Nasal Cannula 09/21/21 12:09 37.2 C 87 20 126/52 L 89 L High Flow Nasal Cannula 09/21/21 11:25 81 20 94 High Flow Nasal Cannula 09/21/21 09:11 36.8 C 90 20 155/78 H 92 BiPAP 09/21/21 07:22 84 24 98 09/21/21 07:22 84 24 98 BiPAP 09/21/21 07:21 85 09/21/21 03:54 76 30 H 97 09/21/21 03:16 36.5 C 75 18 150/70 H 97 BiPAP O2 Flow Rate FiO2 09/21/21 13:08 40 90 09/21/21 12:09 09/21/21 11:25 30 80 09/21/21 09:11 09/21/21 07:22 80 09/21/21 07:22 80 09/21/21 07:21 09/21/21 03:54 80 09/21/21 03:16 Laboratory Results BMP 09/21/21 05:39 Sodium 139 Potassium 3.1 L Chloride 87 L Carbon Dioxide 40 H BUN 19 Creatinine 0.73 Glucose 144 H Calcium 8.4 L Medications Administered Current Inpatient Medications Acetaminophen (Acetaminophen 325 Mg Tab) 650 mg PO Q4H PRN PRN Reason: Pain or Fever Stop: 10/16/21 14:38 Last Admin: 09/18/21 22:50 Dose: 650 mg Al Hydrox/Mg Hydrox/Simethicone (Aluminum/Magnesium Susp 30 Ml Udc) 15 ml PO Q4H PRN PRN Reason: Dyspepsia Stop: 10/16/21 14:38 Albuterol (Albut/Ipratrop 3mg/0.5mg Neb 3 Ml Vial) 3 ml NEB QIDR [facility]; Protocol Stop: 10/16/21 14:38 Last Admin: 09/21/21 11:24 Dose: 3 ml Amlodipine Besylate (Amlodipine Besylate 5 Mg Tab) 2.5 mg PO DAILY [facility] Stop: 10/17/21 08:59 Last Admin: 09/21/21 09:09 Dose: 2.5 mg Benzonatate (Benzonatate 100 Mg Capsule) 100 mg PO TID [facility] Stop: 10/16/21 14:59 Last Admin: 09/21/21 09:21 Dose: 100 mg Cyanocobalamin (Cyanocobalamin (B-12) 500 Mcg Tablet) 1,000 mcg PO DAILY [facility] Stop: 10/17/21 08:59 Last Admin: 09/21/21 09:09 Dose: 1,000 mcg Dextrose (Dextrose 50% 50 Ml Syringe) 25 - 50 ml IV UD PRN; Protocol PRN Reason: Hypoglycemia Protocol Stop: 10/16/21 14:38 Duloxetine HCl (Duloxetine Hcl 60 Mg Cap) 60 mg PO DAILY [facility] Stop: 10/17/21 08:59 Last Admin: 09/21/21 09:09 Dose: 60 mg Duloxetine HCl (Duloxetine Hcl 30 Mg Cap) 30 mg PO DAILY [facility] Stop: 10/17/21 08:59 Last Admin: 09/21/21 09:10 Dose: 30 mg Enoxaparin Sodium (Enoxaparin Inj 40 Mg/0.4 Ml Syr) 40 mg SQ Q12H [facility] Stop: 10/16/21 21:59 Last Admin: 09/21/21 09:12 Dose: 40 mg Fluticasone Furoate (Fluticasone Furoate 100mcg 14 Puffs/Inhaler) 1 puffs INH DAILY [facility] Stop: 10/17/21 08:59 Last Admin: 09/21/21 09:12 Dose: 1 puffs Folic Acid (Folic Acid 1 Mg Tab) 1 mg PO DAILY [facility] Stop: 10/17/21 08:59 Last Admin: 09/21/21 09:09 Dose: 1 mg Furosemide (Furosemide 40 Mg/4 Ml Vial) 80 mg IV BID [facility] Stop: 10/20/21 20:59 Last Admin: 09/21/21 09:08 Dose: 80 mg Glucagon (Glucagon For Inj 1 Mg Vial) 1 mg SQ UD PRN; Protocol PRN Reason: Hypoglycemia Protocol Stop: 10/16/21 14:38 Glucose (Glucose 40% Gel 15 Gm Tube) 15 - 30 gm PO UD PRN; Protocol PRN Reason: Hypoglycemia Protocol Stop: 10/16/21 14:38 Glucose (Glucose 10 Tab/Tube) 4 - 8 tab PO UD PRN; Protocol PRN Reason: Hypoglycemia Treatment Stop: 10/16/21 14:38 Guaifenesin (Guaifenesin 600 Mg Tabcr) 600 mg PO Q12 [facility] Stop: 10/16/21 20:59 Last Admin: 09/21/21 09:12 Dose: 600 mg Ertapenem 1,000 mg/ Syringe 10 mls @ 2 mls/min IV Q24H [facility]; Protocol Stop: 09/29/21 14:59 Last Admin: 09/20/21 15:27 Dose: 2 mls/min Insulin Aspart (Insulin Aspart Per Unit) 0 units SC ACHS [facility]; Protocol Stop: 10/18/21 11:29 Last Admin: 09/21/21 12:20 Dose: 12 units Insulin Human NPH (Insulin Human Nph) 0 units SC DAILY@1700 [facility]; Protocol Stop: 10/18/21 16:59 Last Admin: 09/20/21 17:00 Dose: Not Given Levothyroxine Sodium (Levothyroxine Sodium 100 Mcg Tablet) 100 mcg PO DAILYBB [facility] Stop: 10/17/21 06:29 Last Admin: 09/21/21 05:25 Dose: 100 mcg Magnesium Hydroxide (Magnesium Hydroxide Susp 30 Ml Udc) 30 ml PO Q12H PRN PRN Reason: Constipation Stop: 10/16/21 14:38 Magnesium Oxide (Magnesium Oxide 400 Mg Tab) 400 mg PO QAM [facility] Stop: 10/17/21 08:59 Last Admin: 09/21/21 09:09 Dose: 400 mg Metoprolol Tartrate (Metoprolol Tartrate 25 Mg Tab) 25 mg PO BID [facility] Stop: 10/16/21 20:59 Last Admin: 09/21/21 09:10 Dose: 25 mg Mirtazapine (Mirtazapine Soltab 15 Mg) 45 mg PO HS [facility] Stop: 10/16/21 20:59 Last Admin: 09/20/21 20:30 Dose: 45 mg Miscellaneous (Carbohydrates For Hypoglycemia ) 15 - 30 gm PO UD PRN PRN Reason: Hypoglycemia Protocol Stop: 10/16/21 14:38 Montelukast Sodium (Montelukast Sodium 10 Mg Tablet) 10 mg PO HS [facility] Stop: 10/16/21 20:59 Last Admin: 09/20/21 20:30 Dose: 10 mg Ondansetron HCl (Ondansetron Inj 2 Mg/Ml 2 Ml Vial) 4 mg IV Q6H PRN PRN Reason: Nausea Stop: 10/16/21 14:38 Pantoprazole Sodium (Pantoprazole 40 Mg Tab) 40 mg PO DAILY [facility] Stop: 10/17/21 08:59 Last Admin: 09/21/21 09:10 Dose: 40 mg Polyethylene Glycol (Polyethylene (Miralax) 17 Gm Pack) 17 gm PO DAILY PRN PRN Reason: Constipation Stop: 10/16/21 14:38 Simvastatin (Simvastatin 20 Mg Tab) 20 mg PO HS [facility] Stop: 10/16/21 20:59 Last Admin: 09/20/21 20:30 Dose: 20 mg Umeclidinium/Vilanterol (Umeclidinium/Vilanterol 62.5/25mcg 7 Puffs/Inhaler) 1 puffs INH DAILY [facility] Stop: 10/17/21 08:59 Last Admin: 09/21/21 09:12 Dose: 1 puffs
--- NOTE | 2021-09-21 15:24 | Pulmonary Consultation ---
Date of Consultation September 21, 2021 Assessment & Plan (1) Acute respiratory failure with hypoxia and hypercapnia: (2) COVID-19: (3) CHF (congestive heart failure): Heart failure chronicity: acute Heart failure type: unspecified Qualified Code(s): I50.9 - Heart failure, unspecified (4) Pleural effusion: (5) Obesity hypoventilation syndrome: Plan Attending: Dr. Young Impression: This is 70-year-old female that has a past medical history including obesity hypoventilation syndrome/obstructive sleep apnea, morbid obesity with a BMI greater than 40, chronic supplemental oxygen use, chronic hypercapnia, ambulatory dysfunction requiring Tere lift and electric wheelchair, multiple admissions for hypercapnic respiratory failure, CHF, paroxysmal SVT, previous pleural effusion, chronic shortness of breath. Patient admitted for shortness of breath and found to have COVID-19 infection. She was placed in negative pressure room and pleural effusion was noted on imaging. We are asked to consult on the patient for evaluation of the pleural effusion and overall respiratory status. Recommendations: 1. Right-sided pleural effusion: * This appears to be recurrent. Per discussion with patient she has had multiple instances where she was told that she had fluid "on the lung". In the past she has been able to be diuresed successfully without intervention with thoracentesis. * Long discussion with the patient regarding risk of retained pleural fluid causing loculation and stranding. Patient states understanding and would like to continue to monitor without intervention * Bedside ultrasound was performed and there is a small fluid accumulation in the pleural space of the right lung. It was very difficult to do ultrasound as patient has significant pannus and skin folds which were difficult to manage * In addition, patient was unable to sit upright with her legs on the bed. She was too weak to move her legs to the side of the bed. Per the nurses report, she has not been seen by physical therapy as of yet. Would defer on any procedures until patient has physical therapy evaluation and can at least dangle legs on edge of bed * Patient's enoxaparin was held in anticipation of possible thoracentesis. This will be resumed as patient does have COVID-19 which increases risk of thrombolic event. * It should also be noted that the patient has a platelet count of 70,000. In the event that thoracentesis should be needed in the future, would preemptively check labs to make sure that she does not have a drop in her platelet counts. 2. Chronic respiratory failure with hypercapnia and hypoxia: * Patient with multiple hospital stays including endotracheal intubation and mechanical ventilation for respiratory failure * Records reviewed going back to 2017. Patient has chronically had difficulty managing her PCO2 and pH leading to intubation and mechanical ventilation. * Patient was converted to trilogy noninvasive ventilator as an outpatient. She states that she uses this reliably. Will discuss with and have him bring Trelegy in for supportive care * Repeat ABGs this afternoon reveal a pH of 7.6 and PCO2 of 47 which is consid erably improved. We will stop use of BiPAP and use only high flow oxygen at this time. May consider CPAP for ventilatory support. * When trilogy is provided, I would use that in lieu of hospital equipment * Would recommend palliative care. I did discuss this with Dr. Isaacs and recommended consult for goals of care * To avoid hospitalization, the patient may be considered for tracheostomy tube placement. This has been brought up in the past and review of notes going back to 2017. We will discussed with the patient's and with the patient. 3. Mixed restrictive/obstructive disease: * Pulmonary function testing reviewed from 2018. Patient had FEV1 of 33% and an FVC of 32%. FEV1/FVC was 105%. * Patient unable to perform Pleth and DLCO testing secondary to being wheelchair-bound * No further PFTs since 2018 * Patient is currently on fluticasone (ICS) and umeclidinium (AC) 1 puff daily in the morning at home. She is also on albuterol nebulizer treatments every 6 hours as needed at home for shortness of breath or wheezes. * I do not see any recent outpatient notes. Would recommend outpatient follow- up. Previous notes reviewed indicate patient will be willing but will need to arrange van transportation for the morning. 4. Morbid obesity: * Secondary to sedentary lifestyle due to comorbidities and being bedbound/wheelchair-bound. * Would recommend aquasize or other form of exercise as well as calorie reduction. Thank you for including us in the care of this patient. We will continue to follow along with you. Supervising Physician Co-Signing Physician Notes Patient seen and examined. EMR reviewed. Discussed with pulmonary PA and agree with assessment and plan as noted above. Patient's pleural effusion is quite small on ultrasound imaging. Her body habitus would make it extraordinarily difficult and highly risky to try and sample such a small effusion. I do not think this is the etiology for her decompensation. She has chronic obesity hypoventilation syndrome. Continue nocturnal trilogy. The patient is not decompensated and I do not think she needs continuous BiPAP. In addition I would not try and target oxygen saturations much above 85% given her significant hypercarbia. Continue diuresis. Unfortunately, the patient's primary issues are fundamentally unfixable without significant weight loss. If the patient were to end up on a mechanical ventilator, it would be highly unlikely that she would end up with a tracheostomy. Assessing goals of therapy in this patient would be highly appropriate. History of Present Illness Reason for Consultation: Acute on chronic respiratory failure with hypercapnia and altered mental status. We are consulted for evaluation of right pleural effusion Requesting Physician: Dr. Isaacs Attending Physician: Estefania Isaacs MD History of Present Illness Attending: Dr. Young Is a 70-year-old female that is morbidly obese with a BMI of 43.4 kg/m. She is chronically hypercapnic and is on trilogy noninvasive ventilation at home. She has been on this for several years since at least 2018. Patient h as multiple admissions for hypercapnia and altered mental status over the years. Previously was recommended that she consider tracheostomy for better management of her hypercapnia to avoid hospital stays. At this time the patient is unable to elucidate any history regarding there is discussions. Patient does know where she is. She does note that she is primarily bedbound. Her uses a Tere lift to move her into electric wheelchair or walker. She has no other care at home other than the per her report. This has not been confirmed with at this time. Patient is unable to sit up in bed. When we sit the bed up to do examination, patient desaturates to 72%. She does have a good waveform at this time with her desaturations. Patient denies any acute shortness of breath with her SaO2 in the 70s once we recline her and reduce compression on her abdominal region. Patient is unable to sit on the edge of the bed. She can move 1 leg but is unable to move both legs to the side of the bed. She denies any fever, chills, sweats, rigors. She has no chest pain or tightness. She currently reports no shortness of breath although her baseline saturations appear to be in the high 80s. Patient denies any cough. She has no productive sputum. She has no hemoptysis. She has no other acute complaints at this time. Patient is able to tell me that she previously had pleural effusion. She is unsure if it was right-sided or left-sided. Thoracentesis had been recommended in the past and she deferred and fluid dissipated on its own. Patient is getting heavy doses of diuresis. So far this admission is she is -7 L. I did discuss the option of thoracentesis with her and performed bedside ultrasound. She has a small pocket of fluid that would be difficult to obtain secondary to body habitus. Patient states that she would defer any procedure at this time and continue to watch and see if the fluid resolves on its own. Patient is aware that she has COVID-19 infection. She states that she had 2 Pfizer vaccinations in the past. She denies history of booster vaccination. Review of chart shows COVID-19 vaccinations 03/19/2020 and 04/09/2020. There is no record of a booster. Record does show PPSV23 pneumococcal vaccination 12/01/1999 and 02/14/2009 2018. She also had PCV 13 pneumococcal conjugate vaccination 11/05/2015. Patient states that she is a lifelong non-smoker. Patient has been on trilogy noninvasive ventilator since at least 2018. Allergies Allergy/AdvReac Type Severity Reaction Status Date / Time Insulins Allergy Severe LANTUS/LEVEMIR- Verified 09/16/21 09:46 HIVES/THROAT SWELLING moxifloxacin Allergy Severe HIVES Verified 09/16/21 09:46 nitrofurantoin Allergy Severe HIVES Verified 09/16/21 09:46 paroxetine Allergy Severe HIVES Verified 09/16/21 09:46 Quinolones Allergy Severe AVELOX & Verified 09/16/21 09:46 LEVAQUIN-HIVES amitriptyline Allergy Intermediate Sweats and Verified 09/16/21 09:46 itching buspirone Allergy Intermediate HIVES Verified 09/16/21 09:46 cephalexin Allergy Intermediate Hives Verified 09/16/21 09:46 citalopram Allergy Intermediate HIVES-RASH Verified 09/16/21 09:46 escitalopram Allergy Intermediate HIVES-RASH Verified 09/16/21 09:46 levofloxacin Allergy Intermediate Hives Verified 09/16/21 09:46 methadone Allergy Intermediate HIVES Verified 09/16/21 09:46 Penicillins Allergy Intermediate RASH,HIVES Verified 09/16/21 09:46 Serotonin 5HT-3 Antagonists Allergy Intermediate MIGRAINES Verified 09/16/21 09:46 TO SSRIs trazodone Allergy Intermediate BLOODY Verified 09/16/21 09:46 NOSE, HEADACHES,HIVES vancomycin Allergy Intermediate HIVES Verified 09/16/21 09:46 prednisone Allergy Mild CHEST Verified 09/16/21 09:46 TIGHTNESS carbamazepine Allergy Unknown HIVES-RASH- Verified 09/16/21 09:46 ITCHINESS cefepime Allergy Unknown face & arm Verified 09/16/21 09:46 redness/itching after 2nd or 3rd dose cefepime ceftriaxone Allergy Unknown Received Verified 09/16/21 09:46 in MTU (but needed benadryl for course of therapy Cipro Allergy Unknown ABD PAINS Verified 09/08/17 09:10 sertraline Allergy Unknown UNKNOWN Verified 09/16/21 09:46 sitagliptin Allergy Unknown HIVES Verified 09/16/21 09:46 azithromycin Allergy Hives Verified 09/16/21 09:46 Cephalosporins Allergy Hives Verified 09/16/21 09:46 metformin [From Janumet] Allergy Unknown Verified 09/16/21 09:46 fluoxetine AdvReac Severe ANAPHYLAXIS Verified 09/16/21 09:46 Tetracyclines AdvReac Severe HIVES Verified 09/16/21 09:46 Sulfa (Sulfonamide AdvReac Intermediate MIGRAINES Verified 09/16/21 09:46 Antibiotics) fexofenadine AdvReac Mild GI SYMPTOMS Verified 09/16/21 09:46 tizanidine AdvReac Mild ITCHING-HIV Verified 09/16/21 09:46 ES ciprofloxacin AdvReac Unknown ABD PAINS Verified 09/16/21 09:46 gentamicin AdvReac Unknown UNKNOWN Verified 09/16/21 09:46 lorazepam AdvReac Unknown Verified 09/16/21 09:46 blood Allergy Severe Anaphylaxis Uncoded 09/16/21 09:46 Home Medications Medication Instructions Recorded Confirmed Type celecoxib 200 mg capsule (Celebrex) 200 mg PO DAILY PRN Pain 10/24/19 09/16/21 History levothyroxine 100 mcg tablet 100 mcg PO DAILYBB 10/24/19 09/16/21 History montelukast 10 mg tablet 10 mg PO HS 10/24/19 09/16/21 History simvastatin 20 mg tablet 20 mg PO HS 10/24/19 09/16/21 History sumatriptan succinate 100 mg tablet 100 mg PO UD PRN Migraine Headache 10/24/19 09/16/21 History albuterol sulfate 2.5 mg/3 mL 2.5 mg continuous nebulization Q6H 08/11/20 09/16/21 History (0.083 %) solution for nebulization PRN Shortness Of Breath Or Wheezing duloxetine 60 mg capsule,delayed 60 mg PO DAILY 08/11/20 09/16/21 History release empagliflozin 25 mg tablet 25 mg PO QAM 08/11/20 09/16/21 History (Jardiance) folic acid 1 mg tablet 1 mg PO DAILY 08/11/20 09/16/21 History insulin degludec 200 unit/mL (3 68 unit subcut BID 08/11/20 09/16/21 History mL) subcutaneous pen (Tresiba FlexTouch U-200 insulin) insulin regular human 100 unit/mL 30 unit subcut .LUNCH 08/11/20 09/16/21 History injection solution (Novolin R Regular U-100 Insulin) insulin regular human 100 unit/mL 40 unit subcut .EVENING MEAL 08/11/20 09/16/21 History injection solution (Novolin R Regular U-100 Insulin) insulin regular human 100 unit/mL 70 unit subcut .BREAKFAST 08/11/20 09/16/21 History injection solution (Novolin R Regular U-100 Insulin) ketoconazole 2 % topical cream 1 applic topical BID 08/11/20 09/16/21 History levocetirizine 5 mg tablet 5 mg PO HS PRN Allergy Symptoms 08/11/20 09/16/21 History metformin 500 mg tablet,extended 2,000 mg PO DAILY 08/11/20 09/16/21 History release 24 hr mirtazapine 45 mg tablet 45 mg PO HS 08/11/20 09/16/21 History guaifenesin 200 mg tablet 200 mg PO TID PRN cough #15 tabs 08/18/20 09/16/21 Rx metoprolol tartrate 25 mg tablet 25 mg PO BID #60 tabs 08/18/20 09/16/21 Rx amlodipine 2.5 mg tablet 2.5 mg PO DAILY 09/16/20 09/16/21 History cyanocobalamin (vitamin B-12) 1,000 mcg PO DAILY 09/16/20 09/16/21 History 1,000 mcg tablet pregabalin 100 mg capsule 150 mg PO BID 09/16/20 09/16/21 History magnesium oxide 400 mg (241.3 mg 400 mg PO QAM #30 tabs 09/18/20 09/16/21 Rx magnesium) tablet apixaban 5 mg tablet (Eliquis) 5 mg PO BID 09/16/21 09/16/21 History aspirin 81 mg tablet,delayed 81 mg PO DAILY 09/16/21 09/16/21 History release clindamycin HCl 300 mg capsule 600 mg PO TID 09/16/21 09/16/21 History docusate sodium 100 mg capsule 100 mg PO BID 09/16/21 09/16/21 History (Colace) fluticasone fur. 100 mcg-umeclid 1 inh inhalation DAILY 09/16/21 09/16/21 History 62.5 mcg-vilant 25 mcg inhalat.powder furosemide 40 mg tablet 40 mg PO QAM PRN swelling 09/16/21 09/16/21 History pantoprazole 40 mg tablet,delayed 40 mg PO DAILY 09/16/21 09/16/21 History release potassium chloride 10 mEq 10 meq PO DAILY PRN lasix 09/16/21 09/16/21 History capsule,extended release Patient History Medical History Acute on chronic respiratory failure with hypoxia and hypercapnia Cerebrovascular disease "history left thalamic stroke" CHF (congestive heart failure) Chronic hypercapnic respiratory failure Chronic pain disorder (01/24/14) COPD (chronic obstructive pulmonary disease) Cough with hemoptysis CVA (cerebral vascular accident) hx of L thalamus CVA Diabetes mellitus, type II Dyslipidemia Encephalopathy acute HLD (hyperlipidemia) Hypertension Hypertension Hypertrophic cardiomyopathy Hypothyroidism Metabolic encephalopathy Morbid obesity Morbid obesity Obesity hypoventilation syndrome JOSE (obstructive sleep apnea) Recurrent UTI Respiratory acidosis Surgical History H/O partial nephrectomy History of tonsillectomy Hx of nasal septoplasty S/P dilatation and curettage Status post tonsillectomy Family History Father Coronary heart disease Mother Diabetes Social History Smoking Status: Never smoker Second Hand Exposure: No; Hx Alcohol Use: No Hx Substance Use: No Preferred Language: Citizen Of [place] Communication Ability: Effective 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 Patient is alert and very pleasant. She is able to give me some history but not detailed history. EYES: No icterus, gaze conjugate NOSE: No evidence of epistaxis. High flow supplemental oxygen is in place MOUTH: No lesions or candidiasis. Mucosa is moist NECK: Supple LUNGS: Generally CTA B/L, no wheezes, rales or rhonchi. On auscultation lung sounds appear to be equal bilaterally at the bases. Bedside ultrasound was performed and there is a small pleural effusion on the right. HEART: Regular, rate controlled. No murmurs, gallops, rubs. No appreciated ectopy during my exam. ABDOMEN: Soft, NT, ND, BS Present. Large pannus. EXTREMITIES: No LE edema, pedal pulses intact NEURO: A&OX3. Patient does seem to have some confusion when asking detail about her medical history and reports that her manages that. She does report that she is mostly bedbound and that uses a Tere lift to move her to an electric wheelchair or to her recliner. She is unable to walk. She has been in this condition for several years. She does have good sensation to her toes. This is equal bilaterally to light touch. Patient also appears to have good mobility of her upper extremities. 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 Patient is unable to lift her legs off of the bed. She states that this is usual for her. There is no deviation of her tongue. No facial droop. No slurring of speech. Pupils are equal bilaterally. Patient does speak without slurred speech or evidence of aphasia. Results & Data Results & Data ([facility]) Vital Signs (Past 12 Hours) Vital Signs Temp Pulse Pulse Resp BP Pulse Ox O2 Del Method 09/21/21 15:00 90 09/21/21 14:54 83 26 H 89 L 09/21/21 14:54 83 26 H 87 L BiPAP 09/21/21 14:39 36.7 C 88 24 164/70 H 88 L BiPAP 09/21/21 13:08 High Flow Nasal Cannula 09/21/21 12:09 37.2 C 87 20 126/52 L 89 L High Flow Nasal Cannula 09/21/21 11:25 81 20 94 High Flow Nasal Cannula 09/21/21 09:11 36.8 C 90 20 155/78 H 92 BiPAP 09/21/21 07:22 84 24 98 09/21/21 07:22 84 24 98 BiPAP 09/21/21 07:21 85 09/21/21 03:54 76 30 H 97 O2 Flow Rate FiO2 09/21/21 15:00 09/21/21 14:54 75 09/21/21 14:54 70 09/21/21 14:39 09/21/21 13:08 40 90 09/21/21 12:09 09/21/21 11:25 30 80 09/21/21 09:11 09/21/21 07:22 80 09/21/21 07:22 80 09/21/21 07:21 09/21/21 03:54 80 Critical Care Results & Data Vital Signs (Past 12 Hours) Vital Signs Temp Pulse Pulse Resp BP Pulse Ox O2 Del Method 09/21/21 15:00 90 09/21/21 14:54 83 26 H 89 L 09/21/21 14:54 83 26 H 87 L BiPAP 09/21/21 14:39 36.7 C 88 24 164/70 H 88 L BiPAP 09/21/21 13:08 High Flow Nasal Cannula 09/21/21 12:09 37.2 C 87 20 126/52 L 89 L High Flow Nasal Cannula 09/21/21 11:25 81 20 94 High Flow Nasal Cannula 09/21/21 09:11 36.8 C 90 20 155/78 H 92 BiPAP 09/21/21 07:22 84 24 98 09/21/21 07:22 84 24 98 BiPAP 09/21/21 07:21 85 09/21/21 03:54 76 30 H 97 O2 Flow Rate FiO2 09/21/21 15:00 09/21/21 14:54 75 09/21/21 14:54 70 09/21/21 14:39 09/21/21 13:08 40 90 09/21/21 12:09 09/21/21 11:25 30 80 09/21/21 09:11 09/21/21 07:22 80 09/21/21 07:22 80 09/21/21 07:21 09/21/21 03:54 80 Lab & Micro Results (Past 24 Hours) No Data to Display Na 139 mmol/L (136-145) 09/21/21 K 3.1 mmol/L (3.5-5.1) L 09/21/21 Cl 87 mmol/L (98-107) L 09/21/21 CO2 40 mmol/L (21-32) H 09/21/21 Anion Gap 12 (3-11) H 09/21/21 BUN 19 mg/dl (6-23) 09/21/21 Creatinine 0.73 mg/dl (0.6-1.2) 09/21/21 Estimated GFR ( Amer) 96.0 ml/min 09/21/21 Estimated GFR (Non-Af Amer) 82.9 ml/min 09/21/21 BUN/Creatinine Ratio 26.0 (10-20) H 09/21/21 Glu 144 mg/dl (70-99(Fasting)) H 09/21/21 Ca 8.4 mg/dl (8.5-10.1) L 09/21/21 Mg 1.8 mg/dl (1.7-2.4) 09/21/21 05:39 Calcium Level 8.4 mg/dl (8.5-10.1) L 09/21/21 05:39 Arterial Blood pH 7.60 (7.35-7.45) H* 09/21/21 13:58 Arterial Blood Partial Pressure CO2 47 mmHg (35-46) H 09/21/21 13:58 Arterial Blood Partial Pressure O2 51 mmHg (80-95) L 09/21/21 1 3:58 Arterial Blood HCO3 46 mmol/L (19-24) H 09/21/21 13:58 Arterial Blood Base Excess 21.6 mEq/L (-9-1.8) H 09/21/21 13:58 Arterial Blood Oxygen Saturation 88.6 % (90-95) L 09/21/21 13:5 8 Blood Gas Oxygen Given 40% 09/21/21 13:58 Bill Test Pos (Pos) 09/21/21 13:58 Microbiology 09/16/21 08:08 Aerobic Blood Culture - Final Blood No growth in Aerobic bottle after 5 days. Anaerobic Blood Culture - Final No growth in Anaerobic bottle after 5 days. 09/16/21 08:05 Aerobic Blood Culture - Final Blood No growth in Aerobic bottle after 5 days. Anaerobic Blood Culture - Final No growth in Anaerobic bottle after 5 days. I & O Totals 24 Hours 09/20/21 09/21/21 09/22/21 06:59 06:59 06:59 Intake Total 125 / 125 875 / 875 Output Total 1727 / 1727 1601 / 1601 Balance -1602 / -1602 -726 / -726 Cumulative 09/16/21 07:28 thru 09/21/21 06:13 Intake Total 2100 Output Total 9380 Balance -7280 RT Ventilator Mngmt (Last Documented) Ventilator Ordered Settings Respiratory Rate 26 09/21/21 14:54 Fraction of Inspired Oxygen 75 09/21/21 14:54 Ventilator - PT Measurements Respiratory Rate 26 PG Care Time/CCT Total # of Minutes Spent Total Time Spent with Patient: Total time spent is greater than 50% in coordination of care (as documented) at patient's floor/unit and/or counseling patient: 60 minutes Coding Level of Care Code 34206 Initial Inpt Care Lvl 3 Diagnoses Acute respiratory failure with hypoxia and hypercapnia J96.01; J96.02 COVID-19 U07.1 CHF (congestive heart failure) I50.9 Heart failure chronicity: acute Heart failure type: unspecified Pleural effusion J90 Obesity hypoventilation syndrome E66.2 Time Spent (min) 60
[2021-09-21] MEDS: INSULIN HUMAN NPH SC SCH (17:12)
[2021-09-21] MEDS ORDERED: METOPROLOL TARTRATE 1 MG/ML VIAL IV PRN (20:51)
[2021-09-21] MEDS ORDERED: METOPROLOL TARTRATE 1 MG/ML VIAL IV STA (20:52)
[2021-09-21] MEDS: MIRTAZAPINE SOLTAB 15 MG PO SCH (20:54)
[2021-09-21] MEDS: MONTELUKAST SODIUM 10 MG TABLET PO SCH (20:54)
[2021-09-21] MEDS: SIMVASTATIN 20 MG TAB PO SCH (20:55)
[2021-09-22] MEDS: LEVOTHYROXINE SODIUM 100 MCG TABLET PO SCH (06:22)
[2021-09-22] MEDS: ALBUT/IPRATROP 3MG/0.5MG NEB 3 ML VIAL NEB SCH ×4 (07:18→19:17)
[2021-09-22] MEDS: BENZONATATE 100 MG CAPSULE PO SCH ×3 (08:26→21:23)
[2021-09-22] MEDS: DULoxetine HCL 30 MG CAP PO SCH (08:35)
[2021-09-22] MEDS: CYANOCOBALAMIN (B-12) 500 MCG TABLET PO SCH (08:35)
[2021-09-22] MEDS: METOPROLOL TARTRATE 25 MG TAB PO SCH ×2 (08:35→21:27)
[2021-09-22] MEDS: FOLIC ACID 1 MG TAB PO SCH (08:35)
[2021-09-22] MEDS: DULoxetine HCL 60 MG CAP PO SCH (08:35)
[2021-09-22] MEDS: amLODIPine BESYLATE 5 MG TAB PO SCH (08:36)
[2021-09-22] MEDS: PANTOprazole 40 MG TAB PO SCH (08:36)
[2021-09-22] MEDS: MAGNESIUM OXIDE 400 MG TAB PO SCH (08:36)
[2021-09-22] MEDS: UMECLIDINIUM/VILANTEROL 62.5/25MCG 7 PUFFS/INHALER INH SCH (08:37)
[2021-09-22] MEDS: FLUTICASONE FUROATE 100MCG 14 PUFFS/INHALER INH SCH (08:37)
[2021-09-22] MEDS: guaiFENesin 600 MG TABCR PO SCH ×2 (08:38→21:25)
[2021-09-22] MEDS: ENOXAPARIN INJ 40 MG/0.4 ML SYR SQ SCH ×2 (08:38→21:16)
[2021-09-22] MEDS: INSULIN ASPART PER UNIT SC SCH ×4 (08:43→21:14)
[2021-09-22] MEDS: POTASSIUM CHLORIDE CRTAB 20 MEQ TABCR PO SCH (09:08)
[2021-09-22] MEDS: FUROSEMIDE 40 MG/4 ML VIAL IV SCH ×2 (09:09→21:24)
[2021-09-22 10:31] LABS: Hematocrit (blood only) 34.4 % (34.1-44.9); Hemoglobin 10.7 g/dl (12.0-16.0); Mean Corpuscular Hgb Conc 31.1 g/dL (32.0-36.0); Mean Corpuscular Volume 90.1 fL (80.0-100.0); RDW Coefficient of Variation 16.3 % (11.5-14.5); RDW Standard Deviation 54.2 fL (36.4-46.3); Red Blood Count 3.82 M/uL (3.93-5.22)
[2021-09-22 11:03] LABS: Mean Platelet Volume 13.1 fL (9.4-12.3); Platelet Count 78 K/uL (130-400)
[2021-09-22 11:05] LABS: Albumin Globulin Ratio 1.2 (0.9-2); Albumin Level 3.4 gm/dl (3.4-5.0); BUN Creatinine Ratio 24.2 (10-20); Bilirubin,Total 0.7 mg/dl (0.2-1.0); Calcium 8.4 mg/dl (8.5-10.1); Est GFR (Non-African American) 88.9 ml/min; Globulin 2.8 gm/dl (2.5-4.0); Magnesium 1.7 mg/dl (1.7-2.4); Phosphorus 3.5 mg/dl (2.5-4.9); Potassium 3.2 mmol/L (3.5-5.1); Total Protein 6.2 gm/dl (6.0-8.3)
[2021-09-22 11:33] LABS: Basophils # (auto) 0.03 K/uL (0-0.2); Basophils % (auto) 0.4 %; Eosinophils # (auto) 0.11 K/uL (0-0.50); Eosinophils % (auto) 1.4 %; Immature Granulocytes # (auto) 0.04 K/uL (0.00-0.02); Immature Granulocytes % (auto) 0.5 %; Lymphocytes # (auto) 0.74 K/uL (1.2-3.4); Lymphocytes % (auto) 9.6 %; Monocytes # (auto) 0.63 K/uL (0.24-0.82); Monocytes % (auto) 8.2 %; Neutrophils # (auto) 6.15 K/uL (1.4-6.5); Neutrophils % (auto) 79.9 %
--- NOTE | 2021-09-22 14:28 | Pulmonology Progress Note ---
Date of Service September 22, 2021 Assessment & Plan (1) Acute respiratory failure with hypoxia and hypercapnia: (2) COVID-19: (3) CHF (congestive heart failure): Heart failure chronicity: acute Heart failure type: unspecified Qualified Code(s): I50.9 - Heart failure, unspecified (4) Pleural effusion: (5) Obesity hypoventilation syndrome: Plan Impression: This is 70-year-old female that has a past medical history including obesity hypoventilation syndrome/obstructive sleep apnea, morbid obesity with a BMI greater than 40, chronic supplemental oxygen use, chronic hypercapnia, ambulatory dysfunction requiring Tere lift and electric wheelchair, multiple admissions for hypercapnic respiratory failure, CHF, paroxysmal SVT, previous pleural effusion, chronic shortness of breath. She had an escalation of her oxygen requirement however appears fairly comfortable. Her desire is to go home. She is using CPAP/BiPAP at night. Recommendations: 1. Right-sided pleural effusion: Fluid is relatively small on ultrasound and given the patient's body habitus, would be very difficult to try and access. I am unclear how much of this fluid might be contributing to her current issues. Would favor continued diuresis and medical management at this point in time. 2. Chronic respiratory failure with hypercapnia and hypoxia: Would not make efforts to try and normalize the patient's CO2 as she has chronic hypercarbic respiratory failure. Rather should focus on normalization of pH. Excessive BiPAP has resulted in the patient becoming alkalotic. Could consider dose of Diamox at this point time however if we lower her bicarb too much, when she resumes her normal status, will likely be behind the curve again. Would favor only using positive airway pressure at night. Her hypoxemia is multifactorial due to combinations of VQ mismatch, shunt physiology as well as hypercarbia. I think targeting an oxygen saturation above 90% is likely excessive in this patient as her elevated CO2 levels are contributing significantly and suppression of hypoxemic respiratory drive may result in paradoxical increase in CO2. Would continue to use positive airway pressure when the patient is sleeping and at night as well as as needed during the day (decreased mental status, progressive acidemia). Discussed with nursing and respiratory therapy that I would target an oxygen saturation 85 to 88%. The patient inquires about going home. I advised her that based on the amount of oxygen she is requiring currently, sending her home would likely result in her demise. If she wished to go home with hospice we certainly could arrange that however the patient states that she does not want to pass away but does not want to stay in the hospital either. Continue aggressive incentive spirometry. The patient would do better if she can get upright to improve VQ mismatching. We will add a flutter valve to see if we can improve her pulmonary toilet. Continue aggressive incentive spirometry. 3. Underlying restrictive disease: Secondary to body habitus. No indication for additional steroids or nebulizers at this point time as the patient is not bronchospastic. If she feels the inhalers are beneficial she can continue to use them. 4. Morbid obesity: Weight loss is paramount. If the patient continues to maintain this lifestyle, she was advised that continued organ failure will likely be the result with shortening of her life span. Unfortunately I am not sure how much of the patient's current issues are going to be responsive to medical intervention. We will see how she responds. She can follow-up with the [facility] pulmonary group with whom she is previously established at discharge. Admission and Anticipated Discharge Date Admission Date: September 16, 2021 Subjective Patient seen and examined. EMR reviewed. Discussed with respiratory therapist at bedside. The patient states that she is doing fine. She has no complaints of shortness of breath. She has been transitioned to Vapotherm at 100% 40 L/min with oxygen saturations around 90%. She is not coughing, wheezing, or expectorating phlegm. She expresses a desire to go home and be with her family. Review of Systems Review of Systems: All systems reviewed & are unremarkable except as noted in Subjective Physical Exam Constitutional: WD/WN, vitals as above + morbidly obese; no acute distress Patient is morbidly obese. This limits the sensitivity of physical exam Neck: trachea midline, no thyromegaly Respiratory: normal respiratory effort; no respiratory distress, no labored breathing and not tachypneic Auscultation: + diminished lung sounds Cardiovascular: RRR, no murmur, no edema Gastrointestinal (Abdomen): normal bowel sounds, soft, nontender, no hepatosplenomegaly Musculoskeletal: Extremities: extremities normal to inspection Skin: no rashes, warm and dry Neurologic: Nonfocal exam Lymphatic: no cervical lymphadenopathy Results & Data Results & Data ([facility]) Vital Signs (Past 12 Hours) Vital Signs Temp Pulse Pulse Resp BP Pulse Ox O2 Del Method 09/22/21 11:29 36.6 C 79 18 131/55 L 93 High Flow Nasal Cannula 09/22/21 11:10 76 20 88 L High Flow Nasal Cannula 09/22/21 10:40 High Flow Nasal Cannula, Non-rebreather 09/22/21 07:30 36.6 C 80 18 123/84 90 High Flow Nasal Cannula 09/22/21 07:19 98 H 20 84 L High Flow Nasal Cannula 09/22/21 07:05 94 H 09/22/21 03:37 98 H 26 H 89 L High Flow Nasal Cannula 09/22/21 03:17 36.9 C 89 16 153/70 H 90 High Flow Nasal Cannula O2 Flow Rate FiO2 09/22/21 11:29 09/22/21 11:10 30 100 09/22/21 10:40 09/22/21 07:30 09/22/21 07:19 30 65 09/22/21 07:05 09/22/21 03:37 30 65 09/22/21 03:17 65 Laboratory Results 09/22/21 09:52 09/22/21 09:52 09/16/21 09/16/21 09/21/21 08:02 13:48 13:58 ABG pH 7.39 7.60 H* ABG pCO2 72 H 47 H ABG pO2 104 H 51 L ABG HCO3 44 H 46 H ABG O2 Saturation 99.7 H 88.6 L ABG Base Excess 15.0 H 21.6 H VBG pH 7.33 L VBG pCO2 88 H VBG pO2 56 VBG HCO3 46 VBG O2 Saturation 88.7 VBG Base Excess 15.9 Diagnostic Findings No new imaging PG Care Time/CCT Total # of Minutes Spent Total Time Spent with Patient: Total time spent is greater than 50% in coordination of care (as documented) at patient's floor/unit and/or counseling patient: Coding Level of Care Code 86346 Subseq Hosp Care Lvl 3 Diagnoses Acute respiratory failure with hypoxia and hypercapnia J96.01; J96.02 COVID-19 U07.1 CHF (congestive heart failure) I50.9 Heart failure chronicity: acute Heart failure type: unspecified Pleural effusion J90 Obesity hypoventilation syndrome E66.2
[2021-09-22] MEDS: ERTAPENEM SODIUM 1,000 MG in SYRINGE 0 ML IV SCH (14:49)
--- NOTE | 2021-09-22 16:06 | Hospitalist Progress Note ---
Date of Service September 22, 2021 Assessment & Plan (1) COVID-19: Plan Acute on chronic respiratory failure with hypoxia and hypercarbia COVID 19 Pneumonia Patient came in with 2 weeks of worsening shortness of breath and feeling sick on the background of COVID-19 illness diagnosed 09/09 at PCP office, States she hasnot received any covid vaccine. Saturating 70% on room air on arrival, was reported to have mild confusion at presentation, was minimally drowsy but Ox3 at bedside. Holding neuropsychotropic drugs for now, reassess and resume in AM. Was on BiPAP 16/8, backup respiratory rate 16, FiO2 100%. Patient uses 5 L oxygen at home and BiPAP at night-. Admitting CXR: Concern for pulmonary edema versus superimposed infectious/inflammatory pneumonitis with dependent consolidation. Negative CRP and negative procalcitonin-likely COVID infection with superimposed CHF is making her short of breath and to be desaturated Maintain COVID isolation, incentive spirometry/flutter valve when able, currently dry cough, monitor for infection. Has been started on intravenous dexamethasone which will be continued even though there is no inflammation Does not qualify for remdesivir Mucinex/Tessalon Perles/other symptomatic management including nebulizations. She is clinically much better and has been communicating normally without any acute distress She received 1 dose of Lasix in the morning and will get another dose of 40 mg this afternoon Given the continued fluid overload and worsening blood sugar will stop the IV dexamethasone CRP remains normal She has been requiring more oxygen to maintain saturation and the chest x-ray looks worse with pleural effusion Appreciate pulmonary input and recommendation We will maintain saturation more than 86-88 and use BiPAP at nighttime CHF-diastolic heart failure with fluid overload Condition deteriorated this morning with decreasing saturation Repeat chest x-ray showed persistence of pulmonary edema with small pleural effusion We will administer Lasix 40 mg twice daily Echocardiogram to evaluate LV function: Mild concentric LVH, LV wall motion is normal, EF 55 to 60%, aortic valve sclerosis mild without significant aortic valvular stenosis, grade 1 diastolic dysfunction, small right pleural effusion and Doppler finding does not suggest pulmonary hypertension Repeat chest x-ray on 09/20/2021 showed worsening of CHF and right more than left pleural effusion She has been getting 80 mg Lasix IV since yesterday evening She is not a candidate for thoracentesis given the body habitus and the risk associated with it We will continue intravenous Lasix Obesity hypoventilation syndrome with chronic hypercarbic respiratory failure on 4.5 to 5 L of oxygen at home Complicated by mixed restrictive/obstructive lung disease Has been on CPAP/BiPAP at night We will maintain BiPAP at nighttime Likely UTI: Admitting UA suggestive of UTI, patient does not complain pain or burning while passing urine, Urine culture is growing Klebsiella aerogenes Sensitivity noted-we will discuss with the pharmacist further antibiotic to be prescribed She has been on ertapenem for UTI Electrolyte abnormalities: Monitor and replete. Chronic Medical conditions: Cognitive deficit. Stroke with minimal right-sided residual weakness, almost bedbound status, thrombocytopenia, urinary incontinence with recurrent UTI and hypertrophic cardiomyopathy with HF R EF Assess and resume other home meds when able to take PO and improving diet DVT prophylaxis: Lovenox, monitor platelets. Pt was recently put on eliquis 09/11 by OP provider as prophylaxis for VTE Px given comorbidities and covid, will continue w/ lovenox dvt Px while inpatient instead. Full code Admission and Anticipated Discharge Date Admission Date: September 16, 2021 Subjective 09/17/2021 The patient was seen and examined in telemetry unit and in the COVID room She is fully vaccinated and was diagnosed to have COVID on of last month Noted to have desaturation and weakness She has been feeling much better since admission 09/18/2021 The patient was seen and examined in telemetry unit and in the COVID room She has had shortness of breath this morning and required BiPAP Condition improved thereafter when I saw her in the room but she was still having 15 L oxygen through high flow nasal cannula She denies any other symptoms except weakness 09/19/2021 The patient was seen and examined in telemetry unit and in the COVID room She has been stable and communicating normally She has been getting very short of breath with minimal activity even during eating She denies any chest pain and/or palpitation 09/20/2021 The patient was seen and examined in telemetry unit and in the COVID room She has not improved and requiring 40 L oxygen per minute to maintain saturation through high flow nasal cannula She feels otherwise stable and wants to go home 09/21/2021 The patient was seen and examined in telemetry unit and in the COVID room She has been feeling much worse and has been requiring more oxygen to maintain saturation She was also noted to be a little confused today She wanted to go home and started to cry when I examined her this afternoon She has been communicating normally without any shortness of breath in between speech 09/22/2021 The patient was seen and examined in telemetry unit and in the COVID room She has been feeling much better today but is still requiring high flow oxygen to maintain saturation She denies any chest pain and/or palpitation No fever and or chills and no abdominal pain nausea and or vomiting She wants to go home Review of Systems Review of Systems: All systems reviewed and are unremarkable except as noted below Respiratory: No apparent distress at rest Physical Exam Physical Exam: Lying in bed comfortably with minimal shortness of breath at rest Constitutional: well developed, well nourished, + ill appearing and + morbidly obese Eyes: PERRL, conjunctivae normal, anicteric sclerae ENMT: external ear and nose normal, oropharynx normal Neck: trachea midline, no thyromegaly Respiratory: no respiratory distress Auscultation: + diminished lung sounds (More on the right than the left base) and + crackles (At the bases) Cardiovascular: Rate/Rhythm: regular rate, regular rhythm and + bradycardic Heart Sounds: normal S1 and normal S2; no murmur Extremities: + edema (Trace edema bilaterally) Gastrointestinal (Abdomen): Inspection/Auscultation: normal bowel sounds; abdomen not distended Percussion/Palpation: abdomen soft; abdomen nontender Musculoskeletal: No acute arthritis in any joint Neurologic: Alert, awake and oriented x3. She is generally very weak and lethargic and is bedbound Lymphatic: no cervical or axillary lymphadenopathy Results & Data Results & Data ([facility]) Vital Signs (Past 12 Hours) Vital Signs Temp Pulse Pulse Resp BP Pulse Ox O2 Del Method 09/22/21 15:46 89 09/22/21 14:48 36.4 C L 90 22 133/70 86 L High Flow Nasal Cannula 09/22/21 14:42 78 20 88 L High Flow Nasal Cannula 09/22/21 11:29 36.6 C 79 18 131/55 L 93 High Flow Nasal Cannula 09/22/21 11:10 76 20 88 L High Flow Nasal Cannula 09/22/21 10:40 High Flow Nasal Cannula, Non-rebreather 09/22/21 07:30 36.6 C 80 18 123/84 90 High Flow Nasal Cannula 09/22/21 07:19 98 H 20 84 L High Flow Nasal Cannula 09/22/21 07:05 94 H O2 Flow Rate FiO2 09/22/21 15:46 09/22/21 14:48 30 100 09/22/21 14:42 30 100 09/22/21 11:29 09/22/21 11:10 30 100 09/22/21 10:40 09/22/21 07:30 09/22/21 07:19 30 65 09/22/21 07:05 Laboratory Results Short CBC 09/22/21 Range/Units 09:52 WBC 7.70 (4.8-10.8) K/ul Hgb 10.7 L (12.0-16.0) g/dl Hct 34.4 (34.1-44.9) % Plt Count 78 L (130-400) K/uL BMP 09/22/21 09:52 Sodium 137 Potassium 3.2 L Chloride 87 L Carbon Dioxide 37 H BUN 16 Creatinine 0.66 Glucose 153 H Calcium 8.4 L Liver Function 09/22/21 Range/Units 09:52 Total Bilirubin 0.7 (0.2-1.0) mg/dl AST 9 L (13-39) U/L ALT 6 L (7-52) U/L Alkaline Phosphatase 47 (34-104) U/L Albumin 3.4 (3.4-5.0) gm/dl Medications Administered Current Inpatient Medications Acetaminophen (Acetaminophen 325 Mg Tab) 650 mg PO Q4H PRN PRN Reason: Pain or Fever Stop: 10/16/21 14:38 Last Admin: 09/18/21 22:50 Dose: 650 mg Al Hydrox/Mg Hydrox/Simethicone (Aluminum/Magnesium Susp 30 Ml Udc) 15 ml PO Q4H PRN PRN Reason: Dyspepsia Stop: 10/16/21 14:38 Albuterol (Albut/Ipratrop 3mg/0.5mg Neb 3 Ml Vial) 3 ml NEB QIDR [facility]; Protocol Stop: 10/16/21 14:38 Last Admin: 09/22/21 14:41 Dose: 3 ml Amlodipine Besylate (Amlodipine Besylate 5 Mg Tab) 2.5 mg PO DAILY [facility] Stop: 10/17/21 08:59 Last Admin: 09/22/21 08:36 Dose: 2.5 mg Benzonatate (Benzonatate 100 Mg Capsule) 100 mg PO TID [facility] Stop: 10/16/21 14:59 Last Admin: 09/22/21 13:25 Dose: Not Given Cyanocobalamin (Cyanocobalamin (B-12) 500 Mcg Tablet) 1,000 mcg PO DAILY [facility] Stop: 10/17/21 08:59 Last Admin: 09/22/21 08:35 Dose: 1,000 mcg Dextrose (Dextrose 50% 50 Ml Syringe) 25 - 50 ml IV UD PRN; Protocol PRN Reason: Hypoglycemia Protocol Stop: 10/16/21 14:38 Duloxetine HCl (Duloxetine Hcl 60 Mg Cap) 60 mg PO DAILY [facility] Stop: 10/17/21 08:59 Last Admin: 09/22/21 08:35 Dose: 60 mg Duloxetine HCl (Duloxetine Hcl 30 Mg Cap) 30 mg PO DAILY [facility] Stop: 10/17/21 08:59 Last Admin: 09/22/21 08:35 Dose: 30 mg Enoxaparin Sodium (Enoxaparin Inj 40 Mg/0.4 Ml Syr) 40 mg SQ Q12H [facility] Stop: 10/16/21 21:59 Last Admin: 09/22/21 08:38 Dose: Not Given Fluticasone Furoate (Fluticasone Furoate 100mcg 14 Puffs/Inhaler) 1 puffs INH DAILY [facility] Stop: 10/17/21 08:59 Last Admin: 09/22/21 08:37 Dose: 1 puffs Folic Acid (Folic Acid 1 Mg Tab) 1 mg PO DAILY [facility] Stop: 10/17/21 08:59 Last Admin: 09/22/21 08:35 Dose: 1 mg Furosemide (Furosemide 40 Mg/4 Ml Vial) 80 mg IV BID [facility] Stop: 10/20/21 20:59 Last Admin: 09/22/21 09:09 Dose: 80 mg Glucagon (Glucagon For Inj 1 Mg Vial) 1 mg SQ UD PRN; Protocol PRN Reason: Hypoglycemia Protocol Stop: 10/16/21 14:38 Glucose (Glucose 40% Gel 15 Gm Tube) 15 - 30 gm PO UD PRN; Protocol PRN Reason: Hypoglycemia Protocol Stop: 10/16/21 14:38 Glucose (Glucose 10 Tab/Tube) 4 - 8 tab PO UD PRN; Protocol PRN Reason: Hypoglycemia Treatment Stop: 10/16/21 14:38 Guaifenesin (Guaifenesin 600 Mg Tabcr) 600 mg PO Q12 [facility] Stop: 10/16/21 20:59 Last Admin: 09/22/21 08:38 Dose: 600 mg Ertapenem 1,000 mg/ Syringe 10 mls @ 2 mls/min IV Q24H [facility]; Protocol Stop: 09/29/21 14:59 Last Admin: 09/22/21 14:49 Dose: 2 mls/min Insulin Aspart (Insulin Aspart Per Unit) 0 units SC ACHS [facility]; Protocol Stop: 10/18/21 11:29 Last Admin: 09/22/21 12:30 Dose: 8 units Insulin Human NPH (Insulin Human Nph) 0 units SC DAILY@1700 [facility]; Protocol Stop: 10/18/21 16:59 Last Admin: 09/21/21 17:12 Dose: Not Given Levothyroxine Sodium (Levothyroxine Sodium 100 Mcg Tablet) 100 mcg PO DAILYBB [facility] Stop: 10/17/21 06:29 Last Admin: 09/22/21 06:22 Dose: 100 mcg Magnesium Hydroxide (Magnesium Hydroxide Susp 30 Ml Udc) 30 ml PO Q12H PRN PRN Reason: Constipation Stop: 10/16/21 14:38 Magnesium Oxide (Magnesium Oxide 400 Mg Tab) 400 mg PO QAM [facility] Stop: 10/17/21 08:59 Last Admin: 09/22/21 08:36 Dose: 400 mg Metoprolol Tartrate (Metoprolol Tartrate 25 Mg Tab) 25 mg PO BID [facility] Stop: 10/16/21 20:59 Last Admin: 09/22/21 08:35 Dose: 25 mg Metoprolol Tartrate (Metoprolol Tartrate 1 Mg/Ml Vial) 2.5 mg IV Q4 PRN PRN Reason: Hypertension Stop: 10/22/21 00:00 Mirtazapine (Mirtazapine Soltab 15 Mg) 45 mg PO HS [facility] Stop: 10/16/21 20:59 Last Admin: 09/21/21 20:54 Dose: Not Given Miscellaneous (Carbohydrates For Hypoglycemia ) 15 - 30 gm PO UD PRN PRN Reason: Hypoglycemia Protocol Stop: 10/16/21 14:38 Montelukast Sodium (Montelukast Sodium 10 Mg Tablet) 10 mg PO HS [facility] Stop: 10/16/21 20:59 Last Admin: 09/21/21 20:54 Dose: Not Given Ondansetron HCl (Ondansetron Inj 2 Mg/Ml 2 Ml Vial) 4 mg IV Q6H PRN PRN Reason: Nausea Stop: 10/16/21 14:38 Pantoprazole Sodium (Pantoprazole 40 Mg Tab) 40 mg PO DAILY [facility] Stop: 10/17/21 08:59 Last Admin: 09/22/21 08:36 Dose: 40 mg Polyethylene Glycol (Polyethylene (Miralax) 17 Gm Pack) 17 gm PO DAILY PRN PRN Reason: Constipation Stop: 10/16/21 14:38 Potassium Chloride (Potassium Chloride Crtab 20 Meq Tabcr) 40 meq PO QAM [facility] Stop: 10/22/21 08:59 Last Admin: 09/22/21 09:08 Dose: 40 meq Simvastatin (Simvastatin 20 Mg Tab) 20 mg PO HS [facility] Stop: 10/16/21 20:59 Last Admin: 09/21/21 20:55 Dose: Not Given Umeclidinium/Vilanterol (Umeclidinium/Vilanterol 62.5/25mcg 7 Puffs/Inhaler) 1 puffs INH DAILY [facility] Stop: 10/17/21 08:59 Last Admin: 09/22/21 08:37 Dose: 1 puffs
[2021-09-22] MEDS: INSULIN HUMAN NPH SC SCH (17:28)
[2021-09-22] MEDS: MONTELUKAST SODIUM 10 MG TABLET PO SCH (21:26)
[2021-09-22] MEDS: MIRTAZAPINE SOLTAB 15 MG PO SCH (21:26)
[2021-09-22] MEDS: SIMVASTATIN 20 MG TAB PO SCH (21:27)
[2021-09-23] MEDS: LEVOTHYROXINE SODIUM 100 MCG TABLET PO SCH (05:49)
[2021-09-23] MEDS: ALBUT/IPRATROP 3MG/0.5MG NEB 3 ML VIAL NEB SCH ×4 (07:30→20:10)
[2021-09-23] MEDS: amLODIPine BESYLATE 5 MG TAB PO SCH (09:42)
[2021-09-23] MEDS: CYANOCOBALAMIN (B-12) 500 MCG TABLET PO SCH (09:43)
[2021-09-23] MEDS: FLUTICASONE FUROATE 100MCG 14 PUFFS/INHALER INH SCH (09:44)
[2021-09-23] MEDS: DULoxetine HCL 30 MG CAP PO SCH (09:44)
[2021-09-23] MEDS: FUROSEMIDE 40 MG/4 ML VIAL IV SCH ×2 (09:45→21:57)
[2021-09-23] MEDS: guaiFENesin 600 MG TABCR PO SCH ×2 (09:45→21:59)
[2021-09-23] MEDS: FOLIC ACID 1 MG TAB PO SCH (09:45)
[2021-09-23] MEDS: MAGNESIUM OXIDE 400 MG TAB PO SCH (09:46)
[2021-09-23] MEDS: METOPROLOL TARTRATE 25 MG TAB PO SCH ×2 (09:46→21:58)
[2021-09-23] MEDS: POTASSIUM CHLORIDE CRTAB 20 MEQ TABCR PO SCH (09:47)
[2021-09-23] MEDS: PANTOprazole 40 MG TAB PO SCH (09:47)
[2021-09-23] MEDS: UMECLIDINIUM/VILANTEROL 62.5/25MCG 7 PUFFS/INHALER INH SCH (09:48)
[2021-09-23] MEDS: ENOXAPARIN INJ 40 MG/0.4 ML SYR SQ SCH ×2 (09:48→21:58)
[2021-09-23] MEDS: INSULIN ASPART PER UNIT SC SCH ×4 (10:00→20:30)
[2021-09-23] MEDS: DULoxetine HCL 60 MG CAP PO SCH (10:27)
[2021-09-23] MEDS: BENZONATATE 100 MG CAPSULE PO SCH ×3 (10:28→21:57)
[2021-09-23 11:15] LABS: Basophils # (auto) 0.05 K/uL (0-0.2); Basophils % (auto) 0.5 %; Eosinophils # (auto) 0.16 K/uL (0-0.50); Eosinophils % (auto) 1.6 %; Hematocrit (blood only) 38.8 % (34.1-44.9); Immature Granulocytes # (auto) 0.07 K/uL (0.00-0.02); Immature Granulocytes % (auto) 0.7 %; Lymphocytes # (auto) 0.75 K/uL (1.2-3.4); Lymphocytes % (auto) 7.5 %; Mean Corpuscular Hemoglobin 27.5 pg (25.0-34.0); Mean Corpuscular Hgb Conc 30.9 g/dL (32.0-36.0); Mean Platelet Volume 12.9 fL (9.4-12.3); Monocytes # (auto) 1.03 K/uL (0.24-0.82); Monocytes % (auto) 10.2 %; Neutrophils % (auto) 79.5 %; Platelet Count 86 K/uL (130-400); RDW Standard Deviation 52.9 fL (36.4-46.3); Red Blood Count 4.36 M/uL (3.93-5.22); White Blood Count 10.06 K/ul (4.8-10.8)
[2021-09-23 11:33] LABS: BUN Creatinine Ratio 27.9 (10-20); Calcium 8.9 mg/dl (8.5-10.1); Creatinine Clr Calc Pharmacy 107.9 ml/min; Magnesium 1.7 mg/dl (1.7-2.4); Potassium 3.2 mmol/L (3.5-5.1)
[2021-09-23] MEDS ORDERED: POTASSIUM CHLORIDE CRTAB 20 MEQ TABCR PO STA (12:07)
--- NOTE | 2021-09-23 12:43 | Pulmonology Progress Note ---
Date of Service September 23, 2021 Assessment & Plan (1) Acute respiratory failure with hypoxia and hypercapnia: (2) COVID-19: (3) CHF (congestive heart failure): Heart failure chronicity: acute Heart failure type: unspecified Qualified Code(s): I50.9 - Heart failure, unspecified (4) Pleural effusion: (5) Obesity hypoventilation syndrome: Plan Attending: Dr. Young Impression: This is 70-year-old female that has a past medical history including obesity hypoventilation syndrome/obstructive sleep apnea, morbid obesity with a BMI greater than 40, chronic supplemental oxygen use, chronic hypercapnia, ambulatory dysfunction requiring Tere lift and electric wheelchair, multiple admissions for hypercapnic respiratory failure, CHF, paroxysmal SVT, previous pleural effusion, chronic shortness of breath. She had an escalation of her oxygen requirement however appears fairly comfortable. Her desire is to go home. She is using CPAP/BiPAP at night. Recommendations: 1. Right-sided pleural effusion: * Fluid is relatively small on ultrasound. Given the patient's body habitus and generalized weakness, thoracentesis would be very difficult. * It is unclear how much of this fluid might be contributing to her current issues. * Continue diuresis and medical management at this point in time. 2. Chronic respiratory failure with hypercapnia and hypoxia: * Patient previously placed on BiPAP and this resulted in elevation of pH to 7.6 and a significant decrease in PCO2 from 78 down to 47. * Would not make efforts to try and normalize the patient's CO2 as she has chronic hypercarbic respiratory failure. Rather should focus on normalization of pH. * Could consider dose of Diamox at this point time however if we lower her bicarb too much, when she resumes her normal status, will likely be behind the curve again. Would favor only using positive airway pressure at night. * Her hypoxemia is multifactorial due to combinations of VQ mismatch, shunt physiology as well as hypercarbia. * Maintain SaO2 between 85 and 90%. Targeting an oxygen saturation above 90% is likely excessive in this patient as her elevated CO2 levels are contributing significantly and suppression of hypoxemic respiratory drive may result in paradoxical increase in CO2. * Would continue to use positive airway pressure when the patient is sleeping and at night as well as as needed during the day for decreased mental status, progressive acidemia but not for complaints of SOB or SaO2 management as mentioned above. * Continue aggressive incentive spirometry. The patient would do better if she can get upright to improve VQ mismatching. Use flutter valve to see if we can improve her pulmonary toilet. * Continue aggressive incentive spirometry. 3. Underlying restrictive disease: * Secondary to body habitus. * No indication for additional steroids or nebulizers at this point time as the patient is not bronchospastic. 4. Morbid obesity: * Continued weight loss is paramount. It is noted the patient has had a significant weight loss from 350 pounds to her current weight. Would encourage discussion with PCP regarding weight loss options including calorie management and increased activity/exercise * If the patient continues to maintain this lifestyle, she was advised that continued organ failure will likely be the result with shortening of her life span. CODE STATUS was discussed with the patient and her on the day of our consultation. At this time they continue to request cardiopulmonary resuscitation with at least a trial of mechanical ventilation. It was explained that the patient most likely would require tracheostomy should she be intubated again. At this time the patient and her will discuss this. Thank you for including us in the care of this patient. We will continue to follow along with you for now. Please call with any specific questions regarding ongoing treatment. Admission and Anticipated Discharge Date Admission Date: September 16, 2021 Subjective Attending: Dr. Young Patient seen and examined in room 233. She is currently in bed and is comfortable. She is alert and oriented x3. She is able to cooperate with examination generally. She is unable to sit up in order to access her back for a proper auscultation. Patient denies any wheezes or significant shortness of breath that is unusual for her. She remains on high flow supplemental oxygen and seems to be tolerating this well. Patient denies any fever, chills, sweats, rigors. No cough. No hemoptysis. She has no lower extremity pain. She is unaware of any unusual asymmetrical edema of her legs. She has no pleuritic pain. Review of Systems Review of Systems: A total of 10 systems was reviewed and is negative other than as listed in the HPI Physical Exam Physical Exam: GENERAL : No acute distress. Patient is talkative today. She is alert and oriented. EYES: No icterus, gaze conjugate. Pupils equal and round NOSE: No evidence of epistaxis. High flow nasal cannula is in place and secure. Patient seems to be tolerating this well. MOUTH: No lesions or candidiasis. Tongue is somewhat dry. Mucosa is moist. NECK: Supple LUNGS: Difficult to auscultate patient has he is unable to cooperate with examination. I do not appreciate any significant rales or rhonchi posterior. Patient has no anterior rhonchi. HEART: Regular, rate controlled ABDOMEN: Soft, NT, ND, BS Present EXTREMITIES: No LE edema, pedal pulses intact NEURO: A&OX3 Results & Data Results & Data ([facility]) Vital Signs (Past 12 Hours) Vital Signs Temp Pulse Pulse Resp BP Pulse Ox O2 Del Method 09/23/21 11:21 88 20 92 High Flow Nasal Cannula 09/23/21 10:50 36.9 C 101 H 21 146/65 H 87 L High Flow Nasal Cannula 09/23/21 07:49 96 H 09/23/21 07:40 36.9 C 97 H 20 135/69 86 L High Flow Nasal Cannula 09/23/21 07:30 94 H 22 88 L High Flow Nasal Cannula 09/23/21 02:55 36.9 C 93 H 22 137/75 86 L High Flow Nasal Cannula 09/23/21 02:17 91 H 20 85 L High Flow Nasal Cannula O2 Flow Rate FiO2 09/23/21 11:21 30 80 09/23/21 10:50 30 80 09/23/21 07:49 09/23/21 07:40 09/23/21 07:30 30 80 09/23/21 02:55 80 09/23/21 02:17 30 80 Critical Care Results & Data Vital Signs (Past 12 Hours) Vital Signs Temp Pulse Pulse Resp BP Pulse Ox O2 Del Method 09/23/21 11:21 88 20 92 High Flow Nasal Cannula 09/23/21 10:50 36.9 C 101 H 21 146/65 H 87 L High Flow Nasal Cannula 09/23/21 07:49 96 H 09/23/21 07:40 36.9 C 97 H 20 135/69 86 L High Flow Nasal Cannula 09/23/21 07:30 94 H 22 88 L High Flow Nasal Cannula 09/23/21 02:55 36.9 C 93 H 22 137/75 86 L High Flow Nasal Cannula 09/23/21 02:17 91 H 20 85 L High Flow Nasal Cannula O2 Flow Rate FiO2 09/23/21 11:21 30 80 09/23/21 10:50 30 80 09/23/21 07:49 09/23/21 07:40 09/23/21 07:30 30 80 09/23/21 02:55 80 09/23/21 02:17 30 80 Lab & Micro Results (Past 24 Hours) RBC 4.36 M/uL (3.93-5.22) 09/23/21 WBC 10.06 K/ul (4.8-10.8) 09/23/21 Hgb 12.0 g/dl (12.0-16.0) 09/23/21 Hct 38.8 % (34.1-44.9) 09/23/21 MCV 89.0 fL (80.0-100.0) 09/23/21 MCH 27.5 pg (25.0-34.0) 09/23/21 MCHC 30.9 g/dL (32.0-36.0) L 09/23/21 RDW Standard Deviation 52.9 fL (36.4-46.3) H 09/23/21 RDW Coefficient of Variation 16.0 % (11.5-14.5) H 09/23/21 Plt Count 86 K/uL (130-400) L 09/23/21 MPV 12.9 fL (9.4-12.3) H 09/23/21 Neutrophils (%) (Auto) 79.5 % 09/23/21 Lymphocytes (%) (Auto) 7.5 % 09/23/21 Monocytes # (Auto) 1.03 K/uL (0.24-0.82) H 09/23/21 Eosinophils # (Auto) 0.16 K/uL (0-0.50) 09/23/21 Immature Granulocyte % (Auto) 0.7 % 09/23/21 Neutrophils # (Auto) 8.00 K/uL (1.4-6.5) H 09/23/21 Lymphocytes # (Auto) 0.75 K/uL (1.2-3.4) L 09/23/21 Monocytes # (Auto) 1.03 K/uL (0.24-0.82) H 09/23/21 Eosinophils # (Auto) 0.16 K/uL (0-0.50) 09/23/21 Basophils # (Auto) 0.05 K/uL (0-0.2) 09/23/21 Immature Granulocyte # (Auto) 0.07 K/uL (0.00-0.02) H 09/23 Na 138 mmol/L (136-145) 09/23/21 K 3.2 mmol/L (3.5-5.1) L 09/23/21 Cl 86 mmol/L (98-107) L 09/23/21 CO2 38 mmol/L (21-32) H 09/23/21 Anion Gap 14 (3-11) H 09/23/21 BUN 19 mg/dl (6-23) 09/23/21 Creatinine 0.68 mg/dl (0.6-1.2) 09/23/21 Estimated GFR ( Amer) 102.0 ml/min 09/23/21 Estimated GFR (Non-Af Amer) 88.0 ml/min 09/23/21 BUN/Creatinine Ratio 27.9 (10-20) H 09/23/21 Glu 174 mg/dl (70-99(Fasting)) H 09/23/21 Ca 8.9 mg/dl (8.5-10.1) 09/23/21 Mg 1.7 mg/dl (1.7-2.4) 09/23/21 10:38 Calcium Level 8.9 mg/dl (8.5-10.1) 09/23/21 10:38 I & O Totals 24 Hours 09/22/21 09/23/21 09/24/21 06:59 06:59 06:59 Intake Total 480 / 480 1150 / 1150 Output Total 701 / 701 1950 / 1950 Balance -221 / -221 -800 / -800 Cumulative 09/16/21 07:28 thru 09/23/21 05:48 Intake Total 3730 Output Total 41470 Balance -8301 RT Ventilator Mngmt (Last Documented) Ventilator Ordered Settings Respiratory Rate 20 09/23/21 11:21 Fraction of Inspired Oxygen 80 09/23/21 11:21 Ventilator - PT Measurements Respiratory Rate 20 PG Care Time/CCT Total # of Minutes Spent Total Time Spent with Patient: Total time spent is greater than 50% in coordination of care (as documented) at patient's floor/unit and/or counseling patient: Coding Level of Care Code 99079 Subseq Hosp Care Lvl 2 Diagnoses Acute respiratory failure with hypoxia and hypercapnia J96.01; J96.02 COVID-19 U07.1 CHF (congestive heart failure) I50.9 Heart failure chronicity: acute Heart failure type: unspecified Pleural effusion J90 Obesity hypoventilation syndrome E66.2
[2021-09-23] MEDS: ERTAPENEM SODIUM 1,000 MG in SYRINGE 0 ML IV SCH (14:00)
--- NOTE | 2021-09-23 17:26 | Hospitalist Progress Note ---
Date of Service September 23, 2021 Assessment & Plan (1) COVID-19: Plan Acute on chronic respiratory failure with hypoxia and hypercarbia COVID 19 Pneumonia Patient came in with 2 weeks of worsening shortness of breath and feeling sick on the background of COVID-19 illness diagnosed 09/09 at PCP office, States she hasnot received any covid vaccine. Saturating 70% on room air on arrival, was reported to have mild confusion at presentation, was minimally drowsy but Ox3 at bedside. Holding neuropsychotropic drugs for now, reassess and resume in AM. Was on BiPAP 16/8, backup respiratory rate 16, FiO2 100%. Patient uses 5 L oxygen at home and BiPAP at night-. Admitting CXR: Concern for pulmonary edema versus superimposed infectious/inflammatory pneumonitis with dependent consolidation. Negative CRP and negative procalcitonin-likely COVID infection with superimposed CHF is making her short of breath and to be desaturated Maintain COVID isolation, incentive spirometry/flutter valve when able, currently dry cough, monitor for infection. Has been started on intravenous dexamethasone which will be continued even though there is no inflammation Does not qualify for remdesivir Mucinex/Tessalon Perles/other symptomatic management including nebulizations. She is clinically much better and has been communicating normally without any acute distress She received 1 dose of Lasix in the morning and will get another dose of 40 mg this afternoon Given the continued fluid overload and worsening blood sugar will stop the IV dexamethasone CRP remains normal She has been requiring more oxygen to maintain saturation and the chest x-ray looks worse with pleural effusion Appreciate pulmonary input and recommendation We will maintain saturation more than 86-88 and use BiPAP at nighttime She has been requiring high flow oxygen via nasal cannula to maintain saturation CHF-diastolic heart failure with fluid overload Condition deteriorated this morning with decreasing saturation Repeat chest x-ray showed persistence of pulmonary edema with small pleural effusion We will administer Lasix 40 mg twice daily Echocardiogram to evaluate LV function: Mild concentric LVH, LV wall motion is normal, EF 55 to 60%, aortic valve sclerosis mild without significant aortic valvular stenosis, grade 1 diastolic dysfunction, small right pleural effusion and Doppler finding does not suggest pulmonary hypertension Repeat chest x-ray on 09/20/2021 showed worsening of CHF and right more than left pleural effusion She has been getting 80 mg Lasix IV since yesterday evening She is not a candidate for thoracentesis given the body habitus and the risk associated with it We will continue intravenous Lasix Cumulative fluid balance is -865 1 mL Advised to drink less fluid and keep the fluid restriction upto 1500 mL Obesity hypoventilation syndrome with chronic hypercarbic respiratory failure on 4.5 to 5 L of oxygen at home Complicated by mixed restrictive/obstructive lung disease Has been on CPAP/BiPAP at night We will maintain BiPAP at nighttime Likely UTI: Admitting UA suggestive of UTI, patient does not complain pain or burning while passing urine, Urine culture is growing Klebsiella aerogenes Sensitivity noted-we will discuss with the pharmacist further antibiotic to be prescribed She has been on ertapenem for UTI We will discontinue ertapenem from today Electrolyte abnormalities: Monitor and replete. Chronic Medical conditions: Cognitive deficit. Stroke with minimal right-sided residual weakness, almost bedbound status, thrombocytopenia, urinary incontinence with recurrent UTI and hypertrophic cardiomyopathy with HF R EF Assess and resume other home meds when able to take PO and improving diet DVT prophylaxis: Lovenox, monitor platelets. Pt was recently put on eliquis 09/11 by OP provider as prophylaxis for VTE Px given comorbidities and covid, will continue w/ lovenox dvt Px while inpatient instead. Full code Discussed with the and the patient She can be discharged home when the oxygen requirements come down to 5 L/min as her baseline Admission and Anticipated Discharge Date Admission Date: September 16, 2021 Subjective 09/17/2021 The patient was seen and examined in telemetry unit and in the COVID room She is fully vaccinated and was diagnosed to have COVID on of last month Noted to have desaturation and weakness She has been feeling much better since admission 09/18/2021 The patient was seen and examined in telemetry unit and in the COVID room She has had shortness of breath this morning and required BiPAP Condition improved thereafter when I saw her in the room but she was still having 15 L oxygen through high flow nasal cannula She denies any other symptoms except weakness 09/19/2021 The patient was seen and examined in telemetry unit and in the COVID room She has been stable and communicating normally She has been getting very short of breath with minimal activity even during eating She denies any chest pain and/or palpitation 09/20/2021 The patient was seen and examined in telemetry unit and in the COVID room She has not improved and requiring 40 L oxygen per minute to maintain saturation through high flow nasal cannula She feels otherwise stable and wants to go home 09/21/2021 The patient was seen and examined in telemetry unit and in the COVID room She has been feeling much worse and has been requiring more oxygen to maintain saturation She was also noted to be a little confused today She wanted to go home and started to cry when I examined her this afternoon She has been communicating normally without any shortness of breath in between speech 09/22/2021 The patient was seen and examined in telemetry unit and in the COVID room She has been feeling much better today but is still requiring high flow oxygen to maintain saturation She denies any chest pain and/or palpitation No fever and or chills and no abdominal pain nausea and or vomiting She wants to go home 09/23/2021 The patient was seen and examined in telemetry unit and in the COVID room She remains stable but has been requiring high flow oxygen to maintain saturation Denies any significant symptoms She has been communicating normally Angioedema seems to be improving Review of Systems Review of Systems: All systems reviewed and are unremarkable except as noted below Physical Exam Physical Exam: Lying in bed comfortably with minimal shortness of breath at rest Constitutional: well developed, well nourished, + ill appearing and + morbidly obese Eyes: PERRL, conjunctivae normal, anicteric sclerae ENMT: external ear and nose normal, oropharynx normal Neck: trachea midline, no thyromegaly Respiratory: no respiratory distress Auscultation: + diminished lung sounds (More on the right than the left base) and + crackles (At the bases) Cardiovascular: Rate/Rhythm: regular rate, regular rhythm and + bradycardic Heart Sounds: normal S1 and normal S2; no murmur Extremities: + edema (Trace edema bilaterally) Gastrointestinal (Abdomen): Inspection/Auscultation: normal bowel sounds; abdomen not distended Percussion/Palpation: abdomen soft; abdomen nontender Musculoskeletal: No acute arthritis in any joint Neurologic: Alert, awake and oriented x3. Generally weak Lymphatic: no cervical or axillary lymphadenopathy Results & Data Results & Data ([facility]) Vital Signs (Past 12 Hours) Vital Signs Temp Pulse Pulse Resp BP Pulse Ox O2 Del Method 09/23/21 17:05 36.5 C 96 H 18 146/65 H 86 L High Flow Nasal Cannula 09/23/21 16:04 09/23/21 15:58 91 H 20 86 L High Flow Nasal Cannula 09/23/21 15:42 94 H 09/23/21 14:49 High Flow Nasal Cannula 09/23/21 11:21 88 20 92 High Flow Nasal Cannula 09/23/21 10:50 36.9 C 101 H 21 146/65 H 87 L High Flow Nasal Cannula 09/23/21 07:49 96 H 09/23/21 07:40 36.9 C 97 H 20 135/69 86 L High Flow Nasal Cannula 09/23/21 07:30 94 H 22 88 L High Flow Nasal Cannula O2 Flow Rate FiO2 09/23/21 17:05 09/23/21 16:04 80 09/23/21 15:58 30 70 09/23/21 15:42 09/23/21 14:49 30 09/23/21 11:21 30 80 09/23/21 10:50 30 80 09/23/21 07:49 09/23/21 07:40 09/23/21 07:30 30 80 Laboratory Results Short CBC 09/23/21 Range/Units 10:38 WBC 10.06 (4.8-10.8) K/ul Hgb 12.0 (12.0-16.0) g/dl Hct 38.8 (34.1-44.9) % Plt Count 86 L (130-400) K/uL BMP 09/23/21 10:38 Sodium 138 Potassium 3.2 L Chloride 86 L Carbon Dioxide 38 H BUN 19 Creatinine 0.68 Glucose 174 H Calcium 8.9 Medications Administered Current Inpatient Medications Acetaminophen (Acetaminophen 325 Mg Tab) 650 mg PO Q4H PRN PRN Reason: Pain or Fever Stop: 10/16/21 14:38 Last Admin: 09/18/21 22:50 Dose: 650 mg Al Hydrox/Mg Hydrox/Simethicone (Aluminum/Magnesium Susp 30 Ml Udc) 15 ml PO Q4H PRN PRN Reason: Dyspepsia Stop: 10/16/21 14:38 Albuterol (Albut/Ipratrop 3mg/0.5mg Neb 3 Ml Vial) 3 ml NEB QIDR [facility]; Protocol Stop: 10/16/21 14:38 Last Admin: 09/23/21 15:56 Dose: 3 ml Amlodipine Besylate (Amlodipine Besylate 5 Mg Tab) 2.5 mg PO DAILY [facility] Stop: 10/17/21 08:59 Last Admin: 09/23/21 09:42 Dose: 2.5 mg Benzonatate (Benzonatate 100 Mg Capsule) 100 mg PO TID [facility] Stop: 10/16/21 14:59 Last Admin: 09/23/21 13:59 Dose: 100 mg Cyanocobalamin (Cyanocobalamin (B-12) 500 Mcg Tablet) 1,000 mcg PO DAILY [facility] Stop: 10/17/21 08:59 Last Admin: 09/23/21 09:43 Dose: 1,000 mcg Dextrose (Dextrose 50% 50 Ml Syringe) 25 - 50 ml IV UD PRN; Protocol PRN Reason: Hypoglycemia Protocol Stop: 10/16/21 14:38 Duloxetine HCl (Duloxetine Hcl 60 Mg Cap) 60 mg PO DAILY [facility] Stop: 10/17/21 08:59 Last Admin: 09/23/21 10:27 Dose: 60 mg Duloxetine HCl (Duloxetine Hcl 30 Mg Cap) 30 mg PO DAILY [facility] Stop: 10/17/21 08:59 Last Admin: 09/23/21 09:44 Dose: 30 mg Enoxaparin Sodium (Enoxaparin Inj 40 Mg/0.4 Ml Syr) 40 mg SQ Q12H [facility] Stop: 10/16/21 21:59 Last Admin: 09/23/21 09:48 Dose: 40 mg Fluticasone Furoate (Fluticasone Furoate 100mcg 14 Puffs/Inhaler) 1 puffs INH DAILY [facility] Stop: 10/17/21 08:59 Last Admin: 09/23/21 09:44 Dose: 1 puffs Folic Acid (Folic Acid 1 Mg Tab) 1 mg PO DAILY [facility] Stop: 10/17/21 08:59 Last Admin: 09/23/21 09:45 Dose: 1 mg Furosemide (Furosemide 40 Mg/4 Ml Vial) 80 mg IV BID [facility] Stop: 10/20/21 20:59 Last Admin: 09/23/21 09:45 Dose: 80 mg Glucagon (Glucagon For Inj 1 Mg Vial) 1 mg SQ UD PRN; Protocol PRN Reason: Hypoglycemia Protocol Stop: 10/16/21 14:38 Glucose (Glucose 40% Gel 15 Gm Tube) 15 - 30 gm PO UD PRN; Protocol PRN Reason: Hypoglycemia Protocol Stop: 10/16/21 14:38 Glucose (Glucose 10 Tab/Tube) 4 - 8 tab PO UD PRN; Protocol PRN Reason: Hypoglycemia Treatment Stop: 10/16/21 14:38 Guaifenesin (Guaifenesin 600 Mg Tabcr) 600 mg PO Q12 [facility] Stop: 10/16/21 20:59 Last Admin: 09/23/21 09:45 Dose: 600 mg Ertapenem 1,000 mg/ Syringe 10 mls @ 2 mls/min IV Q24H [facility]; Protocol Stop: 09/23/21 23:59 Last Admin: 09/23/21 14:00 Dose: 2 mls/min Insulin Aspart (Insulin Aspart Per Unit) 0 units SC ACHS [facility]; Protocol Stop: 10/18/21 11:29 Last Admin: 09/23/21 12:37 Dose: 6 units Insulin Human NPH (Insulin Human Nph) 0 units SC DAILY@1700 [facility]; Protocol Stop: 10/18/21 16:59 Last Admin: 09/22/21 17:28 Dose: Not Given Levothyroxine Sodium (Levothyroxine Sodium 100 Mcg Tablet) 100 mcg PO DAILYBB [facility] Stop: 10/17/21 06:29 Last Admin: 09/23/21 05:49 Dose: 100 mcg Magnesium Hydroxide (Magnesium Hydroxide Susp 30 Ml Udc) 30 ml PO Q12H PRN PRN Reason: Constipation Stop: 10/16/21 14:38 Magnesium Oxide (Magnesium Oxide 400 Mg Tab) 400 mg PO QAM [facility] Stop: 10/17/21 08:59 Last Admin: 09/23/21 09:46 Dose: 400 mg Metoprolol Tartrate (Metoprolol Tartrate 25 Mg Tab) 25 mg PO BID [facility] Stop: 10/16/21 20:59 Last Admin: 09/23/21 09:46 Dose: 25 mg Metoprolol Tartrate (Metoprolol Tartrate 1 Mg/Ml Vial) 2.5 mg IV Q4 PRN PRN Reason: Hypertension Stop: 10/22/21 00:00 Mirtazapine (Mirtazapine Soltab 15 Mg) 45 mg PO HS [facility] Stop: 10/16/21 20:59 Last Admin: 09/22/21 21:26 Dose: 45 mg Miscellaneous (Carbohydrates For Hypoglycemia ) 15 - 30 gm PO UD PRN PRN Reason: Hypoglycemia Protocol Stop: 10/16/21 14:38 Montelukast Sodium (Montelukast Sodium 10 Mg Tablet) 10 mg PO HS [facility] Stop: 10/16/21 20:59 Last Admin: 09/22/21 21:26 Dose: 10 mg Ondansetron HCl (Ondansetron Inj 2 Mg/Ml 2 Ml Vial) 4 mg IV Q6H PRN PRN Reason: Nausea Stop: 10/16/21 14:38 Pantoprazole Sodium (Pantoprazole 40 Mg Tab) 40 mg PO DAILY [facility] Stop: 10/17/21 08:59 Last Admin: 09/23/21 09:47 Dose: 40 mg Polyethylene Glycol (Polyethylene (Miralax) 17 Gm Pack) 17 gm PO DAILY PRN PRN Reason: Constipation Stop: 10/16/21 14:38 Potassium Chloride (Potassium Chloride Crtab 20 Meq Tabcr) 40 meq PO QAM [facility] Stop: 10/22/21 08:59 Last Admin: 09/23/21 09:47 Dose: 40 meq Simvastatin (Simvastatin 20 Mg Tab) 20 mg PO HS [facility] Stop: 10/16/21 20:59 Last Admin: 09/22/21 21:27 Dose: 20 mg Umeclidinium/Vilanterol (Umeclidinium/Vilanterol 62.5/25mcg 7 Puffs/Inhaler) 1 puffs INH DAILY [facility] Stop: 10/17/21 08:59 Last Admin: 09/23/21 09:48 Dose: 1 puffs
[2021-09-23] MEDS: INSULIN HUMAN NPH SC SCH (17:50)
--- NOTE | 2021-09-23 20:55 | XRay Report ---
XR chest 1V portable HISTORY: 70 years-old Female low o2 acute hypoxia COMPARISON: Chest radiograph 09/20/2021 TECHNIQUE: Portable AP view of the chest FINDINGS: There is complete opacification of the right hemithorax which has progressed from the prior study. Ca rdiomegaly with pulmonary vascular congestion and interstitial coarsening of the left lung. Small lef t pleural effusion with left basilar airspace opacities. Bones appear grossly intact. Partially image d chondroid lesion of the proximal right humerus. IMPRESSION: 1. Complete opacification of the right hemithorax likely secondary to combination of pleural effusion with right lung collapse/consolidation. 2. Cardiomegaly with mild pulmonary edema. 3. Small left pleural effusion with left basilar airspace opacities. ACT 112: Negative or not required by law. The above report was generated using voice recognition software. It may contain grammatical, syntax o r spelling errors. Electronically signed by: Dioni Turpin M.D. 09/23/2021 8:53 PM
[2021-09-23] MEDS ORDERED: methylPREDNISolone 20 MG in SYRINGE 0 ML IV ONE (21:00)
--- NOTE | 2021-09-23 21:02 | Communication Note ---
Date of Service: September 23, 2021 Made aware by RN of O2 sats 80s on 30 L HFNC Usual shortness of breath Patient without copious respiratory secretions as per RN. Chest x-ray 1. Complete opacification of the right hemithorax likely secondary to combination of pleural effusion with right lung collapse/consolidation. 2. Cardiomegaly with mild pulmonary edema. 3. Small left pleural effusion with left basilar airspace opacities. AP Worsening hypoxemic respiratory failure COVID-19 pneumonia Complete opacification of right hemithorax (pleural effusion versus right lung consolidation) Supplemental O2 Baseline ABG Solu-Medrol 1 dose now Consider resumption of Decadron course for severe COVID-19 pneumonia Facilitate diuretic Rx Recheck CXR in a.m. N.p.o. in anticipation of bronchoscopic intervention in a.m. if warranted pending Pulmonary eval Will relay to AM provider.
[2021-09-23 21:05] LABS: Base Excess ABG 16.5 mEq/L (-9-1.8); HCO3 ABG 41 mmol/L (19-24); Oxygen Saturation ABG 86.3 % (90-95); PCO2 ABG 47 mmHg (35-46); PO2 ABG 50 mmHg (80-95)
[2021-09-23 21:32] LABS: Allen Test Pos (Pos)
[2021-09-23 21:33] LABS: pH ABG 7.55 (7.35-7.45)
[2021-09-23] MEDS: MONTELUKAST SODIUM 10 MG TABLET PO SCH (21:58)
[2021-09-23] MEDS: SIMVASTATIN 20 MG TAB PO SCH (21:59)
[2021-09-23] MEDS: POTASSIUM CHLORIDE / WTR 10 MEQ/100 ML PLCT IV SCH ×3 (22:08→23:55)
[2021-09-23] MEDS: MAGNESIUM SULFATE / D5W 1 GM/100 ML BAG IV SCH ×2 (22:08→23:55)
[2021-09-24] MEDS: POTASSIUM CHLORIDE / WTR 10 MEQ/100 ML PLCT IV SCH (01:33)
[2021-09-24] MEDS: ALBUT/IPRATROP 3MG/0.5MG NEB 3 ML VIAL NEB SCH ×4 (07:35→19:16)
--- NOTE | 2021-09-24 07:47 | XRay Report ---
XR chest 1V portable HISTORY: 70 years-old Female ffup cxr, white out r lung acute shortness of breath COMPARISON: Chest radiograph 09/23/2021 TECHNIQUE: AP view of the chest FINDINGS: Cardiac silhouette is enlarged. There is decreased pulmonary vascular congestion. Small left pleural effusion with persistent left lung base opacities. Near complete opacification of the right hemithora x, now with minimally aerated right midlung. Large right pleural effusion with majority of the right lung demonstrating consolidation/collapse. Bones appear grossly intact. Partially imaged chondroid le angel of the right proximal humerus. IMPRESSION: 1. Near complete opacification of the right hemithorax, now with minimal aeration of the right lung. 2. Cardiomegaly with pulmonary vascular congestion. 3. Small left pleural effusion with persistent left lung base opacities. ACT 112: Negative or not required by law. The above report was generated using voice recognition software. It may contain grammatical, syntax o r spelling errors. Electronically signed by: Dioni Turpin M.D. 09/24/2021 7:46 AM
[2021-09-24 08:18] LABS: BUN Creatinine Ratio 31.3 (10-20); Creatinine Clr Calc Pharmacy 106.8 ml/min; Est GFR (African American) 102.5 ml/min; Est GFR (Non-African American) 88.4 ml/min; Magnesium 2.3 mg/dl (1.7-2.4); Potassium 4.5 mmol/L (3.5-5.1)
--- NOTE | 2021-09-24 08:31 | Pulmonology Progress Note ---
Date of Service September 24, 2021 Assessment & Plan (1) Acute respiratory failure with hypoxia and hypercapnia: (2) COVID-19: (3) CHF (congestive heart failure): Heart failure chronicity: acute Heart failure type: unspecified Qualified Code(s): I50.9 - Heart failure, unspecified (4) Pleural effusion: (5) Obesity hypoventilation syndrome: Plan Impression: This is 70-year-old female that has a past medical history including obesity hypoventilation syndrome/obstructive sleep apnea, morbid obesity with a BMI greater than 40, chronic supplemental oxygen use, chronic hypercapnia, ambulatory dysfunction requiring Tere lift and electric wheelchair, multiple admissions for hypercapnic respiratory failure, CHF, paroxysmal SVT, previous pleural effusion, chronic shortness of breath. Her x- ray last evening and again this morning demonstrates opacification of the left hemithorax consistent with probable mucous plugging Recommendations: 1. Right-sided pleural effusion: Fluid is relatively small on ultrasound and given the patient's body habitus, would be very difficult to try and access. I am unclear how much of this fluid might be contributing to her current issues. Would favor continued diuresis and medical management at this point in time. 2. Chronic respiratory failure with hypercapnia and hypoxia: Continue BiPAP at night and oxygen. Again would titrate oxygen to maintain oxygen saturations 85 to 88% 3. Underlying restrictive disease: Secondary to body habitus. No indication for additional steroids or nebulizers at this point time as the patient is not bronchospastic. If she feels the inhalers are beneficial she can continue to use them. 4. Morbid obesity: Weight loss is paramount. If the patient continues to maintain this lifestyle, she was advised that continued organ failure will likely be the result with shortening of her life span. 5. Atelectasis: Likely mucous plugging. We will perform bronchoscopy to clear her airways. Hopefully this may improve some of her VQ mismatch Above recommendations and plan were discussed with the patient extensively. Questions were answered to the best my ability. She expressed understanding and is in agreement with plan as outlined Admission and Anticipated Discharge Date Admission Date: September 16, 2021 Subjective Patient seen and examined. She states she used her CPAP last night. She denies any chest pain or shortness of breath. Unfortunately she continues to require high flow oxygen to maintain oxygen saturations. Chest x-ray performed last evening demonstrated complete opacification of the right hemithorax Review of Systems Review of Systems: All systems reviewed & are unremarkable except as noted in Subjective Physical Exam Constitutional: WD/WN, vitals as above + morbidly obese; no acute distress Patient is morbidly obese. This limits the sensitivity of physical exam Neck: trachea midline, no thyromegaly Respiratory: normal respiratory effort; no respiratory distress, no labored br eathing and not tachypneic Auscultation: + diminished lung sounds Cardiovascular: RRR, no murmur, no edema Gastrointestinal (Abdomen): normal bowel sounds, soft, nontender, no hepatosplenomegaly Musculoskeletal: Extremities: extremities normal to inspection Skin: no rashes, warm and dry Neurologic: Nonfocal exam Lymphatic: no cervical lymphadenopathy Results & Data Results & Data ([facility]) Vital Signs (Past 12 Hours) Vital Signs Temp Pulse Pulse Resp BP Pulse Ox O2 Del Method 09/24/21 07:42 36.5 C 91 H 28 H 125/70 85 L High Flow Nasal Cannula 09/24/21 07:35 90 32 H 85 L BiPAP 09/24/21 03:40 87 27 H 89 L 09/23/21 22:38 89 09/24/21 03:58 36.4 C L 86 20 148/76 H 89 L BiPAP 09/23/21 23:36 BiPAP 09/23/21 23:35 37.2 C 84 26 H 126/75 90 BiPAP 09/23/21 22:30 100 H 26 H 88 L O2 Flow Rate FiO2 09/24/21 07:42 30 100 09/24/21 07:35 80 09/24/21 03:40 80 09/23/21 22:38 09/24/21 03:58 09/23/21 23:36 09/23/21 23:35 09/23/21 22:30 80 Laboratory Results 09/23/21 10:38 09/24/21 07:35 Diagnostic Findings CXR from today and yesterday at 842 PM were reviewed. There is complete atelectasis of the L lung with shift. PG Care Time/CCT Total # of Minutes Spent Total Time Spent with Patient: Total time spent is greater than 50% in coordination of care (as documented) at patient's floor/unit and/or counseling patient: Coding Level of Care Code 51311 Subseq Hosp Care Lvl 3 Diagnoses Acute respiratory failure with hypoxia and hypercapnia J96.01; J96.02 COVID-19 U07.1 CHF (congestive heart failure) I50.9 Heart failure chronicity: acute Heart failure type: unspecified Pleural effusion J90 Obesity hypoventilation syndrome E66.2
[2021-09-24] MEDS: INSULIN ASPART PER UNIT SC SCH ×4 (09:24→20:44)
[2021-09-24] MEDS: FUROSEMIDE 40 MG/4 ML VIAL IV SCH ×2 (09:25→20:44)
[2021-09-24] MEDS ORDERED: MIDAZOLAM HCL 5 MG/ML 1 ML VIAL ONE (09:42)
[2021-09-24] MEDS ORDERED: fentaNYL citrate 100 MCG/2 ML VIAL ONE (09:42)
--- NOTE | 2021-09-24 10:53 | Procedure Note ---
Procedure Note Date of Service September 24, 2021 Note Procedure: Therapeutic aspiration of secretions, initial Conscious sedation Provider: Israel Young MD Consent: Signed by patient and timeout verified prior to procedure. Sedation start: 1024 Sedation end: 1034 Conscious sedation: 3.5 mg Versed, 50 mcg fentanyl Procedure: Patient was brought to the bronchoscopy suite in the ICU. Consent was verified. Appropriate radiographic studies had been reviewed prior to the procedure. Standard monitoring was applied. Oxygen was administered. After topical anesthesia of the airways per respiratory therapy protocol, the fiberoptic scope was advanced through the left nares. Oropharynx was unremarkable. Vocal cords were visualized and were normal in function and appearance. Topical anesthesia of the cords was achieved with instillation of lidocaine through the scope. Scope was then passed through the vocal cords. The trachea was midline. Main markel was sharp. Anesthesia of the lower airways was achieved with instillation of lidocaine through the scope. A sequential and systematic examination of the lower airways was conducted. The right-sided airways were normal in anatomic configuration and patent and the mucosa appeared normal. The scope was then advanced into the left mainstem bronchus. There was a large bloody mucous plug in the left mainstem bronchus extending into the left upper lobe and left lower lobe. This was suctioned free with saline lavage. The mucosa underneath was somewhat friable but after removal of the plug, the airways appeared clear. Patient's oxygen saturation improved from the mid 85% range up to the low 90% range with intervention. The bronchoscope was then removed from the airways. The patient tolerated the procedure well without obvious complication. Patient was returned to the recovery room. Impression: 1. Mucous plug left mainstem bronchus status post evacuation Coding CPT Codes Pulmonary/Thoracic - Pulmonary and Thoracic: 93875 Bronchoscopy, clear airways ([id number]) Sedation/Anesthesia - Sedation/Anesthesia: 93894 Mod Sedation by the same physician;Init15 Min Child Age 5 & Up ([id number]) [facility] [place] Procedure Codes (Charges) Pulmonary/Thoracic Procedure 1: Pulmonary and Thoracic: 75243 Bronchoscopy, clear airways Sedation/Anesthesia Procedure 2: Sedation/Anesthesia: 96479 Mod Sedation by the same physician;Init15 Min Child Age 5 & Up Total Sedation Time (minutes): 15
[2021-09-24] MEDS: ENOXAPARIN INJ 40 MG/0.4 ML SYR SQ SCH ×2 (11:27→22:56)
[2021-09-24] MEDS: DULoxetine HCL 60 MG CAP PO SCH (11:28)
[2021-09-24] MEDS: amLODIPine BESYLATE 5 MG TAB PO SCH (11:28)
[2021-09-24] MEDS: FOLIC ACID 1 MG TAB PO SCH (11:29)
[2021-09-24] MEDS: POTASSIUM CHLORIDE CRTAB 20 MEQ TABCR PO SCH (11:29)
[2021-09-24] MEDS: DULoxetine HCL 30 MG CAP PO SCH (11:29)
[2021-09-24] MEDS: METOPROLOL TARTRATE 25 MG TAB PO SCH ×2 (11:29→20:45)
[2021-09-24] MEDS: PANTOprazole 40 MG TAB PO SCH (11:30)
[2021-09-24] MEDS: LEVOTHYROXINE SODIUM 100 MCG TABLET PO SCH (11:30)
[2021-09-24] MEDS: MAGNESIUM OXIDE 400 MG TAB PO SCH (11:30)
[2021-09-24] MEDS: CYANOCOBALAMIN (B-12) 500 MCG TABLET PO SCH (11:30)
[2021-09-24] MEDS: guaiFENesin 600 MG TABCR PO SCH ×2 (11:30→20:45)
[2021-09-24] MEDS: FLUTICASONE FUROATE 100MCG 14 PUFFS/INHALER INH SCH (11:47)
[2021-09-24] MEDS: UMECLIDINIUM/VILANTEROL 62.5/25MCG 7 PUFFS/INHALER INH SCH (11:47)
[2021-09-24] MEDS: BENZONATATE 100 MG CAPSULE PO SCH ×3 (12:26→20:47)
--- NOTE | 2021-09-24 15:02 | Hospitalist Progress Note ---
Date of Service September 24, 2021 Assessment & Plan (1) COVID-19: Plan Acute on chronic respiratory failure with hypoxia and hypercarbia COVID 19 Pneumonia Chronic oxygen dependency 5 L at home, BiPAP at night Unvaccinated for COVID Mucous plug left mainstem bronchus S/P evacuation --CXR:Near complete opacification of the right hemithorax, now with minimal aeration of the right lung. Cardiomegaly with pulmonary vascular congestion. Small left pleural effusion with persistent left lung base opacities. Had bronchoscopy on 09/24/21 CRP: 0.86; Procalcitonin 0.10 Continue supplemental oxygen Appreciate pulmonology help Continue Incentive spirometry/flutter valve IV dexamethasone discontinued Continue IV diuresis Continue BiPAP HS Acute diastolic CHF Right pleural effusion CXR showed persistence of pulmonary edema with small pleural effusion ECHO: Mild concentric LVH, LV wall motion is normal, EF 55 to 60%, aortic valve sclerosis mild without significant aortic valvular stenosis, grade 1 diastolic dysfunction, small right pleural effusion and Doppler finding does not suggest pulmonary hypertension Continue IV Lasix Monitor fluid status Continue fluid restriction Obesity hypoventilation syndrome Chronic hypercarbic respiratory failure on 4.5 to 5 L of oxygen at home Complicated by mixed restrictive/obstructive lung disease on BiPAP at night Suspected UTI Likely colonization Denies any urinary symptoms Urine Cx:Klebsiella Received Ertapenem Electrolyte abnormalities: Monitor and replete as needed Cognitive deficit H/O CVA with minimal right-sided residual weakness Mostly bedbound status Thrombocytopenia Urinary incontinence with recurrent UTI Hypertrophic cardiomyopathy Resume home meds as able Morbid obesity BMI 41 DVT Px: Lovenox SQ Was on Eliquis 09/11 by OP provider as prophylaxis for VTE Px given comorbidities and COVID Code Status Full code Admission and Anticipated Discharge Date Admission Date: September 16, 2021 Subjective Patient is seen and examined at bedside Patient had bronchoscopy earlier today She is eager to get discharged home Currently on high flow oxygen Denies any chest pain, shortness of breath, dizziness, nausea, abdominal pain Discussed with pulmonology today Review of Systems Review of Systems: All systems reviewed & are unremarkable except as noted in Subjective Physical Exam Physical Exam: Physical Exam: Vitals signs as noted above General Appearance:Morbidly Obese, no apparent distress Head: normocephalic, Atraumatic Eyes: normal inspection, EOMI, Anisocoria Neck: supple, Trachea midline Respiratory/Chest: Decreased breath sounds, CTA, No accessory muscle use Cardiovascular: S1, S2, No murmur Abdomen/GI:Soft, Non tender, Bowel sounds present Extremities/Musculoskeletal:normal inspection, Trace edema Neurologic/Psych:AAOX3, grossly no focal neurological deficits Skin: normal color, warm Results & Data Results & Data ([facility]) Vital Signs (Past 12 Hours) Vital Signs Temp Pulse Pulse Resp BP Pulse Ox O2 Del Method 09/24/21 10:00 High Flow Nasal Cannula 09/24/21 11:18 80 24 87 L High Flow Nasal Cannula 09/24/21 10:15 High Flow Nasal Cannula 09/24/21 08:00 High Flow Nasal Cannula 09/24/21 07:42 36.5 C 91 H 28 H 125/70 85 L High Flow Nasal Cannula 09/24/21 07:35 90 32 H 85 L BiPAP 09/24/21 03:40 87 27 H 89 L 09/24/21 03:58 36.4 C L 86 20 148/76 H 89 L BiPAP O2 Flow Rate FiO2 09/24/21 10:00 09/24/21 11:18 40 80 09/24/21 10:15 09/24/21 08:00 30 100 09/24/21 07:42 30 100 09/24/21 07:35 80 09/24/21 03:40 80 09/24/21 03:58 Laboratory Results BMP 09/24/21 07:35 Sodium 134 L Potassium 4.5 D Chloride 86 L Carbon Dioxide 37 H BUN 21 Creatinine 0.67 Glucose 228 H Calcium 9.0
--- NOTE | 2021-09-24 15:23 | CT Scan Report ---
CT OF THE HEAD WITHOUT CONTRAST CLINICAL HISTORY: Altered mental status. Evaluate for cerebrovascular accident. COMPARISON STUDY: Head CT October 24, 2019. CT DOSE: 614.27 mGy.cm TECHNIQUE: Helical axial images of the head were obtained without IV contrast. Automated exposure con trol was utilized for the study. A dose lowering technique was utilized adhering to the principles o f ALARA. FINDINGS: No acute intracranial hemorrhage, midline shift or mass effect is present. Ventricular syst em is normal. Basal cisterns are patent. No extra axial collections are present. No findings to sugge st acute dural sinus thrombosis or acute territorial infarct. The appearance of the brain is unchange d. Right mastoid air cells are opacified. This is unchanged. Small amount of fluid within the left in ferior mastoid air cells is noted. This is new since prior exam. Left frontal sinus is opacified. Sph enoid sinuses are largely opacified with secretions. There is also ethmoid sinus mucosal thickening. Sinus opacification has developed since prior head CT. No acute calvarial fracture. IMPRESSION: 1. No acute intracranial findings. 2. Extensive sinus opacification with secretions, new since head CT of November 03, 2019. ACT 112: Negative or not required by law. Electronically signed by: Chidi Gregory M.D. 09/24/2021 3:21 PM
[2021-09-24] MEDS: INSULIN HUMAN NPH SC SCH (16:53)
[2021-09-24] MEDS: SIMVASTATIN 20 MG TAB PO SCH (20:44)
[2021-09-24] MEDS: ACETAMINOPHEN 325 MG TAB PO PRN (20:44)
[2021-09-24] MEDS: MONTELUKAST SODIUM 10 MG TABLET PO SCH (20:45)
[2021-09-25 05:46] VITALS: TEMP 97.7
[2021-09-25 06:18] LABS: Hematocrit (blood only) 34.3 % (34.1-44.9); Hemoglobin 10.5 g/dl (12.0-16.0); Mean Corpuscular Hemoglobin 27.6 pg (25.0-34.0); Mean Corpuscular Hgb Conc 30.6 g/dL (32.0-36.0); Mean Corpuscular Volume 90.3 fL (80.0-100.0); RDW Coefficient of Variation 15.8 % (11.5-14.5); RDW Standard Deviation 51.9 fL (36.4-46.3); White Blood Count 6.24 K/ul (4.8-10.8)
[2021-09-25 06:24] LABS: Mean Platelet Volume 13.2 fL (9.4-12.3); Platelet Count 103 K/uL (130-400)
[2021-09-25] MEDS: LEVOTHYROXINE SODIUM 100 MCG TABLET PO SCH (06:38)
[2021-09-25] MEDS: ALBUT/IPRATROP 3MG/0.5MG NEB 3 ML VIAL NEB SCH ×2 (07:16→11:47)
[2021-09-25 07:18] LABS: BUN Creatinine Ratio 36.8 (10-20); Calcium 8.9 mg/dl (8.5-10.1); Creatinine Clr Calc Pharmacy 105.2 ml/min; Potassium 3.5 mmol/L (3.5-5.1)
[2021-09-25] MEDS: INSULIN ASPART PER UNIT SC SCH ×2 (08:44→12:17)
[2021-09-25] MEDS: FUROSEMIDE 40 MG/4 ML VIAL IV SCH (08:53)
[2021-09-25] MEDS: BENZONATATE 100 MG CAPSULE PO SCH ×2 (08:53→14:38)
[2021-09-25] MEDS: FLUTICASONE FUROATE 100MCG 14 PUFFS/INHALER INH SCH (08:54)
[2021-09-25] MEDS: UMECLIDINIUM/VILANTEROL 62.5/25MCG 7 PUFFS/INHALER INH SCH (08:54)
[2021-09-25] MEDS: POTASSIUM CHLORIDE CRTAB 20 MEQ TABCR PO SCH (08:56)
[2021-09-25] MEDS: ENOXAPARIN INJ 40 MG/0.4 ML SYR SQ SCH (08:56)
--- NOTE | 2021-09-25 08:58 | XRay Report ---
XR chest 1V portable HISTORY: 70 years-old Female Mucous Plug acute shortness of breath COMPARISON: Chest radiograph 09/24/2021 TECHNIQUE: Portable AP view of the chest FINDINGS: Cardiac silhouette is enlarged. Pulmonary vascular congestion. There is improved aeration of the righ t lung. Trace pleural effusions with persistent bibasilar opacities. No pneumothorax. Bones appear gr ossly intact. Partially imaged chondroid lesion of the right proximal humerus. IMPRESSION: 1. Improved aeration with reexpansion of the right lung compared to yesterday's study. 2. Cardiomegaly with pulmonary vascular congestion. 3. Trace pleural effusions with mild bibasilar opacities. ACT 112: Negative or not required by law. The above report was generated using voice recognition software. It may contain grammatical, syntax o r spelling errors. Electronically signed by: Dioni Turpin M.D. 09/25/2021 8:57 AM
--- NOTE | 2021-09-25 09:17 | Pulmonology Progress Note ---
Date of Service September 25, 2021 Assessment & Plan (1) Acute respiratory failure with hypoxia and hypercapnia: (2) COVID-19: (3) CHF (congestive heart failure): Heart failure chronicity: acute Heart failure type: unspecified Qualified Code(s): I50.9 - Heart failure, unspecified (4) Pleural effusion: (5) Obesity hypoventilation syndrome: Plan Impression: This is 70-year-old female that has a past medical history including obesity hypoventilation syndrome/obstructive sleep apnea, morbid obesity with a BMI greater than 40, chronic supplemental oxygen use, chronic hypercapnia, ambulatory dysfunction requiring Tere lift and electric wheelchair, multiple admissions for hypercapnic respiratory failure, CHF, paroxysmal SVT, previous pleural effusion, chronic shortness of breath.. She underwent bronchoscopy yesterday for mucous plug and atelectasis of the right lung. X-ray this morning looks better and her oxygenation is back to her baseline. Recommendations: 1. Right-sided pleural effusion: Continue diuretics. No indication for thoracentesis. 2. Chronic respiratory failure with hypercapnia and hypoxia: Continue BiPAP at night and oxygen. She is at her baseline oxygen requirement 3. Underlying restrictive disease: Secondary to body habitus. No indication for additional steroids or nebulizers at this point time as the patient is not bronchospastic. If she feels the inhalers are beneficial she can continue to use them. 4. Morbid obesity: Weight loss is paramount. If the patient continues to maintain this lifestyle, she was advised that continued organ failure will likely be the result with shortening of her life span. 5. Atelectasis: Large mucous plug aspirated by bronchoscopy yesterday with improvement in aeration and chest x-ray findings. Continue pulmonary toilet with flutter valve and incentive spirometry. 6. COVID: I do not think the patient requires any additional therapy as she is at her baseline oxygen requirement. Patient appears to be at her baseline from a pulmonary perspective. She is quite adamant that she wants to be dismissed from the hospital. Will defer ultimate disposition to the hospitalist however from a pulmonary standpoint, the patient appears to be again at her baseline and is stable to consider dismissal from the hospital as long as her can care for her at home. Pulmonary will sign off at this point time. Feel free to contact us with questions or concerns Admission and Anticipated Discharge Date Admission Date: September 16, 2021 Subjective Patient seen and examined. EMR reviewed. The patient underwent bronchoscopy with aspiration of a large mucous plug on the right. Her oxygenation has improved significantly over the last 12 to 18 hours. She is now down to her baseline 4 to 5 L. She is pursuing pulmonary toilet with a flutter valve and incentive spirometry. She is not expectorating significant phlegm. She reports compliance with her CPAP overnight. She does not feel short of breath. She is anxious to be dismissed from the hospital. She is tolerating a diet Review of Systems Review of Systems: All systems reviewed & are unremarkable except as noted in Subjective Physical Exam Constitutional: WD/WN, vitals as above + morbidly obese; no acute distress Neck: trachea midline, no thyromegaly Respiratory: normal respiratory effort; no respiratory distress, no labored breathing and not tachypneic Auscultation: + diminished lung sounds Cardiovascular: RRR, no murmur, no edema Gastrointestinal (Abdomen): normal bowel sounds, soft, nontender, no hepatosplenomegaly Musculoskeletal: Extremities: extremities normal to inspection Skin: no rashes, warm and dry Lymphatic: no cervical lymphadenopathy Results & Data Results & Data ([facility]) Vital Signs (Past 12 Hours) Vital Signs Temp Pulse Pulse Resp BP Pulse Ox O2 Del Method 09/25/21 00:00 104 H 09/25/21 07:15 81 20 93 Nasal Cannula 09/25/21 05:45 36.5 C 70 16 136/54 L 91 Nasal Cannula 09/25/21 04:00 36.9 C 79 23 141/53 H 96 BiPAP 09/24/21 22:00 Nasal Cannula, BiPAP 09/25/21 02:46 71 29 H 95 09/24/21 23:12 75 30 H 90 O2 Flow Rate FiO2 09/25/21 00:00 09/25/21 07:15 5 09/25/21 05:45 5 09/25/21 04:00 60 09/24/21 22:00 60 09/25/21 02:46 60 09/24/21 23:12 60 Laboratory Results 09/25/21 05:39 09/25/21 05:39 Diagnostic Findings Chest x-ray from today was independently reviewed. The right lung demonstrates good aeration compared to yesterday. PG Care Time/CCT Total # of Minutes Spent Total Time Spent with Patient: Total time spent is greater than 50% in coordination of care (as documented) at patient's floor/unit and/or counseling patient: Coding Level of Care Code 94524 Subseq Hosp Care Lvl 2 Diagnoses Acute respiratory failure with hypoxia and hypercapnia J96.01; J96.02 COVID-19 U07.1 CHF (congestive heart failure) I50.9 Heart failure chronicity: acute Heart failure type: unspecified Pleural effusion J90 Obesity hypoventilation syndrome E66.2
[2021-09-25] MEDS: CYANOCOBALAMIN (B-12) 500 MCG TABLET PO SCH (09:46)
[2021-09-25] MEDS: amLODIPine BESYLATE 5 MG TAB PO SCH (09:46)
[2021-09-25] MEDS: guaiFENesin 600 MG TABCR PO SCH (09:47)
[2021-09-25] MEDS: DULoxetine HCL 30 MG CAP PO SCH (09:47)
[2021-09-25] MEDS: DULoxetine HCL 60 MG CAP PO SCH (09:47)
[2021-09-25] MEDS: FOLIC ACID 1 MG TAB PO SCH (09:47)
[2021-09-25] MEDS: PANTOprazole 40 MG TAB PO SCH (09:48)
[2021-09-25] MEDS: METOPROLOL TARTRATE 25 MG TAB PO SCH (09:48)
[2021-09-25] MEDS: MAGNESIUM OXIDE 400 MG TAB PO SCH (09:48)
[2021-09-25 13:50] VITALS: BP 131/58; PULSE 82; O2SAT 89
--- NOTE | 2021-09-25 14:14 | Hospitalist Progress Note ---
Date of Service September 25, 2021 Assessment & Plan (1) COVID-19: Plan Acute on chronic respiratory failure with hypoxia and hypercarbia COVID 19 Pneumonia Chronic oxygen dependency 5 L at home, BiPAP at night Unvaccinated for COVID Mucous plug left mainstem bronchus S/P evacuation --CXR:Near complete opacification of the right hemithorax, now with minimal aeration of the right lung. Cardiomegaly with pulmonary vascular congestion. Small left pleural effusion with persistent left lung base opacities. Had bronchoscopy on 09/24/21 CRP: 0.86; Procalcitonin 0.10 Continue supplemental oxygen Appreciate pulmonology help Continue Incentive spirometry/flutter valve IV dexamethasone discontinued Continue IV diuresis>>>Transition to PO lasix 40mg Continue BiPAP HS Platelet status seem to be back to baseline CXR showed improved aeration with reexpansion of the right lung Currently saturating on 5 L of nasal cannula Ideally requires to continue IV diuresis but patient demands to be discharged home. Updated patient's today. Patient and family understands the risks and complications and prefers to be discharged home despite emplaning the risks. Advised to follow-up with cardiology upon discharge. 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 Suspected UTI Likely colonization Denies any urinary symptoms Urine Cx:Klebsiella Received Ertapenem Electrolyte abnormalities: Monitor and replete as needed Cognitive deficit H/O CVA with minimal right-sided residual weakness Mostly bedbound status Thrombocytopenia Urinary incontinence with recurrent UTI Hypertrophic cardiomyopathy Resume home meds as able Morbid obesity BMI 41 DVT Px: Lovenox SQ Was on Eliquis 09/11 by OP provider as prophylaxis for VTE Px given comorbidities and COVID Code Status Full code Disposition Home with Admission and Anticipated Discharge Date Admission Date: September 16, 2021 Subjective Patient is seen and examined at bedside Doing well today Respiratory status seemed to be back to baseline Currently on 5L of supplemental Oxygen Denies any chest pain, shortness of breath, dizziness, nausea, abdominal pain CXR showed improved aeration with reexpansion of the right lung Review of Systems Review of Systems: All systems reviewed & are unremarkable except as noted in Subjective Physical Exam Physical Exam: Physical Exam: Vitals signs as noted above General Appearance:Morbidly Obese, no apparent distress Head: normocephalic, Atraumatic Eyes: normal inspection, EOMI Neck: supple, Trachea midline Respiratory/Chest: Decreased breath sounds, CTA, No accessory muscle use Cardiovascular: S1, S2, No murmur Abdomen/GI:Soft, Non tender, Bowel sounds present Extremities/Musculoskeletal:normal inspection, Trace edema Neurologic/Psych:AAOX3, grossly no focal neurological deficits Skin: normal color, warm Results & Data Results & Data ([facility]) Vital Signs (Past 12 Hours) Vital Signs Temp Pulse Pulse Resp BP BP Pulse Ox 09/25/21 13:00 82 30 H 89 L 09/25/21 12:13 76 30 H 88 L 09/25/21 12:13 131/58 L 09/25/21 12:00 68 27 H 89 L 09/25/21 11:00 84 19 93 09/25/21 10:00 90 22 93 09/25/21 09:10 152/64 H 09/25/21 09:10 108 H 17 90 09/25/21 09:00 95 H 20 91 09/25/21 08:00 95 H 23 91 09/25/21 07:00 81 24 93 09/25/21 08:00 09/25/21 11:45 88 18 93 09/25/21 07:15 81 20 93 09/25/21 05:45 36.5 C 70 16 136/54 L 91 09/25/21 04:00 36.9 C 79 23 141/53 H 96 09/25/21 02:46 71 29 H 95 O2 Del Method O2 Flow Rate FiO2 09/25/21 13:00 09/25/21 12:13 09/25/21 12:13 09/25/21 12:00 09/25/21 11:00 09/25/21 10:00 09/25/21 09:10 09/25/21 09:10 09/25/21 09:00 09/25/21 08:00 09/25/21 07:00 09/25/21 08:00 Nasal Cannula 6 09/25/21 11:45 Nasal Cannula 5 09/25/21 07:15 Nasal Cannula 5 09/25/21 05:45 Nasal Cannula 5 09/25/21 04:00 BiPAP 60 09/25/21 02:46 60 Laboratory Results Short CBC 09/25/21 Range/Units 05:39 WBC 6.24 (4.8-10.8) K/ul Hgb 10.5 L (12.0-16.0) g/dl Hct 34.3 (34.1-44.9) % Plt Count 103 L (130-400) K/uL BMP 09/25/21 05:39 Sodium 136 Potassium 3.5 D Chloride 88 L Carbon Dioxide 40 H BUN 25 H Creatinine 0.68 Glucose 156 H Calcium 8.9
--- NOTE | 2021-09-25 14:44 | Discharge Summary ---
Date of Service September 25, 2021 Admission HPI Per Admitting Provider 70-year-old lady with PMH of T2DM, chronic respiratory failure with hypoxia and hypercapnia on 5 L oxygen at home (per pt) and BiPAP at night, JOSE, moderate persistent asthma, OHS, HFrEF due to hypertrophic cardiomyopathy, urinary incontinence/recurrent UTI, multiple antibiotic allergies, morbidly obese, cognitive deficit poststroke with minimal right-sided residual weakness walks with walker, thrombocytopenia presented to our ED 09/16 with complaint of worsening shortness of breath, feeling " awful" since last 2 weeks [employer]. Patient tested positive for COVID 09/09. Patient reports having dry cough and vomiting since last 2 weeks. The cough has been worsening associated with worsening shortness of breath. Patient reports decreased appetite but able to put down food/no vomit right away and multiple vomits per day, no blood in vomit. Patient reports myalgia. Patient denies pain or burning with passing urine. Patient does report having right-sided minimal residual weakness and is able to ambulate with walker. Patient uses 5 L oxygen at home and uses BiPAP during the night. Proper and clear communication was limited due to patient being on BPAP. Patient denies smoking tobacco/use of alcohol/use of recreational drugs or marijuana. Medication list obtained from the patient. Patient does not remember her home medications. Full Code. Admission Exam Per Admitting Provider Physical Exam Physical Exam: GENERAL: minimally drowsy and oriented x3. NAD, on BPAP HEENT: No pallor, no icterus. Pupils equal, round and reactive to light. Oral mucosa moist. NECK: No JVD, no neck masses. HEART: S1 and S2 heard. Regular rate and rhythm. No murmur, no gallop. RESPIRATORY SYSTEM: Normal AP diameter. No accessory muscle use.No wheezing, b/b crackles. decreased breath sounds (2/2 morbid obesity) ABDOMEN: Soft, bowel sounds present, nontender, no distention. CENTRAL NERVOUS SYSTEM: No facial droop. Speech is clear. Obeys simple commands. Moves extremities. Rt Extremity minimally weak compared to left. EXTREMITIES: trace edema, no erythema seen. Principal Diagnosis Acute on chronic respiratory failure with hypoxia and hypercarbia COVID 19 Pneumonia Chronic oxygen dependency Mucous plug left mainstem bronchus S/P evacuation Acute diastolic CHF Discharge Data Allergies Allergy/AdvReac Type Severity Reaction Status Date / Time Insulins Allergy Severe LANTUS/LEVEMIR- Verified 09/16/21 09:46 HIVES/THROAT SWELLING moxifloxacin Allergy Severe HIVES Verified 09/16/21 09:46 nitrofurantoin Allergy Severe HIVES Verified 09/16/21 09:46 paroxetine Allergy Severe HIVES Verified 09/16/21 09:46 Quinolones Allergy Severe AVELOX & Verified 09/16/21 09:46 LEVAQUIN-HIVES amitriptyline Allergy Intermediate Sweats and Verified 09/16/21 09:46 itching buspirone Allergy Intermediate HIVES Verified 09/16/21 09:46 cephalexin Allergy Intermediate Hives Verified 09/16/21 09:46 citalopram Allergy Intermediate HIVES-RASH Verified 09/16/21 09:46 escitalopram Allergy Intermediate HIVES-RASH Verified 09/16/21 09:46 levofloxacin Allergy Intermediate Hives Verified 09/16/21 09:46 methadone Allergy Intermediate HIVES Verified 09/16/21 09:46 Penicillins Allergy Intermediate RASH,HIVES Verified 09/16/21 09:46 Serotonin 5HT-3 Antagonists Allergy Intermediate MIGRAINES Verified 09/16/21 09:46 TO SSRIs trazodone Allergy Intermediate BLOODY Verified 09/16/21 09:46 NOSE, HEADACHES,HIVES vancomycin Allergy Intermediate HIVES Verified 09/16/21 09:46 prednisone Allergy Mild CHEST Verified 09/16/21 09:46 TIGHTNESS carbamazepine Allergy Unknown HIVES-RASH- Verified 09/16/21 09:46 ITCHINESS cefepime Allergy Unknown face & arm Verified 09/16/21 09:46 redness/itching after 2nd or 3rd dose cefepime ceftriaxone Allergy Unknown Received Verified 09/16/21 09:46 in MTU (but needed benadryl for course of therapy Cipro Allergy Unknown ABD PAINS Verified 09/08/17 09:10 sertraline Allergy Unknown UNKNOWN Verified 09/16/21 09:46 sitagliptin Allergy Unknown HIVES Verified 09/16/21 09:46 azithromycin Allergy Hives Verified 09/16/21 09:46 Cephalosporins Allergy Hives Verified 09/16/21 09:46 metformin [From Janumet] Allergy Unknown Verified 09/16/21 09:46 fluoxetine AdvReac Severe ANAPHYLAXIS Verified 09/16/21 09:46 Tetracyclines AdvReac Severe HIVES Verified 09/16/21 09:46 Sulfa (Sulfonamide AdvReac Intermediate MIGRAINES Verified 09/16/21 09:46 Antibiotics) fexofenadine AdvReac Mild GI SYMPTOMS Verified 09/16/21 09:46 tizanidine AdvReac Mild ITCHING-HIV Verified 09/16/21 09:46 ES ciprofloxacin AdvReac Unknown ABD PAINS Verified 09/16/21 09:46 gentamicin AdvReac Unknown UNKNOWN Verified 09/16/21 09:46 lorazepam AdvReac Unknown Verified 09/16/21 09:46 blood Allergy Severe Anaphylaxis Uncoded 09/16/21 09:46 Consultations 09/16/21 09:40 ED Decision to Admit Stat 09/21/21 07:56 Consult Pulmonology Routine Ordered Studies 09/21/21 13:30 sono, invasive monitoring [US point of care ultrasound] Routine 09/24/21 13:11 CT head/brain wo con Urgent Hospital Course (1) COVID-19: Plan Acute on chronic respiratory failure with hypoxia and hypercarbia COVID 19 Pneumonia Chronic oxygen dependency 5 L at home, BiPAP at night Unvaccinated for COVID Mucous plug left mainstem bronchus S/P evacuation --CXR:Near complete opacification of the right hemithorax, now with minimal aeration of the right lung. Cardiomegaly with pulmonary vascular congestion. Small left pleural effusion with persistent left lung base opacities. Had bronchoscopy on 09/24/21 CRP: 0.86; Procalcitonin 0.10 Continue supplemental oxygen Appreciate pulmonology help Continue Incentive spirometry/flutter valve IV dexamethasone discontinued Continue IV diuresis>>>Transition to PO lasix 40mg Continue BiPAP HS Platelet status seem to be back to baseline CXR showed improved aeration with reexpansion of the right lung Currently saturating on 5 L of nasal cannula Ideally requires to continue IV diuresis but patient demands to be discharged home. Updated patient's today. Patient and family understands the risks and complications and prefers to be discharged home despite emplaning the risks. Advised to follow-up with cardiology upon discharge. 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 Suspected UTI Likely colonization Denies any urinary symptoms Urine Cx:Klebsiella Received Ertapenem Electrolyte abnormalities: Monitor and replete as needed Cognitive deficit H/O CVA with minimal right-sided residual weakness Mostly bedbound status Thrombocytopenia Urinary incontinence with recurrent UTI Hypertrophic cardiomyopathy Resume home meds as able Morbid obesity BMI 41 DVT Px: Lovenox SQ Was on Eliquis 09/11 by OP provider as prophylaxis for VTE Px given comorbidities and COVID Code Status Full code Disposition Home with HH Total Time Total Time Spent Total Time Spent (In Minutes): 50 minutes Discharge Plan Discharge Items Patient Disposition: Home - Home Health Services Reason For Visit: ACUTE ON CHRONIC HYPOXIC AND HYPERCARBIC RESP FAIL Discharge Diagnosis: Acute on chronic respiratory failure with hypoxia and hypercarbia COVID 19 Pneumonia Chronic oxygen dependency Mucous plug left mainstem bronchus S/P evacuation Acute diastolic CHF Activity: Per Instructions section Exercise/Sports: Wait until after follow-up appointment Non-emergency contact: Primary Care Provider and Towel Weaver Call non-emergency contact if: you have any medication questions, your symptoms worsen, your pain is concerning for you and you have a fever Follow-up/Referrals: Bairon Owens MD [Primary Care Provider] - (Date & Time 10/01/2021 3:20 PM Provider Ayaka Amaya MD Department Family Practice [facility] ) Blayne Castro [Physician Vp Production] - (Date & Time 10/23/2021 11:30 AM Provider Blayne Castro PA-C Department Cardiology, [facility] ) Diet: Carb Consistent or DM2 and Heart Healthy Fluids: 1800ml (7 cups) Addtl Attending Provider Instructions: Follow up with your primary care physician on 10/01/2021 3:20 PM Follow-up with your roll scale man Blayne Castro PA-C on 10/23/2021 11:30 AM Seek immediate medical attention if your symptoms reoccur or worsen Please take all medications as instructed on discharge list below. Please call if you have any questions or problems. You can reach a [facility] hospitalist on duty at [facility] 24 hours a day by calling [phone] Call your Primary Care doctor if any of the following symptoms or problems start or get worse: * Shortness of breath or difficulty breathing * Wake up at night short of breath * Chest pain * Cough * Swelling of your hands, feet, or legs * More fatigued or tired with your normal activity * Palpitations - sudden fast heart beats WEIGHT * Weigh yourself every morning after using the bathroom. * Use the same scale. * Wear the same amount of clothing. * Write your weight down on a chart. * Call your Primary Care doctor if you gain more than 2-3 pounds in 1-2 days. MEDICATIONS * Use this discharge instruction sheet for medication instructions. * Take your medications at the time your doctor ordered. * Do not skip a dose of your medicines. * If you miss a dose of medicine, take it as soon as possible, but DO NOT DOUBLE A DOSE. * Read your medicine information when you get home. * Know all of the side effects of your medicine. If in doubt, ask your pharmacist * Call your Primary Care doctor's office if you have any side effects. * Be sure all of your doctors know what medicine and herbs you take (including cold, flu, and herbal medicine). Take the following with you to your follow-up doctor appointments: * Weight Chart * Medication List * List of questions Do not drink excessive alcohol, beer or wine. Pending Studies at Discharge: No Stand-Alone Forms: My [facility], Smoking Cessation Medications and DC Order Prescriptions: New furosemide [Lasix] 40 mg tablet 40 mg PO DAILY Qty: 30 0RF Continued celecoxib [Celebrex] 200 mg Capsule 200 mg PO DAILY PRN (Reason: Pain) sumatriptan succinate 100 mg Tablet 100 mg PO UD MDD 2 PRN (Reason: Migraine Headache) Rx Instructions: 08/11/20 : TAKE ONE TABLET BY MOUTH IMMEDIATELY. MAY REPEAT AFTER TWO HOURS. DO NOT EXCEED TWO TABLETS IN 24HR levothyroxine 100 mcg tablet 100 mcg PO DAILYBB simvastatin 20 mg tablet 20 mg PO HS montelukast 10 mg tablet 10 mg PO HS pregabalin 100 mg capsule 150 mg PO BID cyanocobalamin (vitamin B-12) 1,000 mcg Tablet 1,000 mcg PO DAILY amlodipine 2.5 mg tablet 2.5 mg PO DAILY magnesium oxide 400 mg (241.3 mg magnesium) Tablet 400 mg PO QAM Qty: 30 0RF metformin 500 mg Tablet Extended Release 24 Hr 2,000 mg PO DAILY albuterol sulfate 2.5 mg /3 mL (0.083 %) solution for nebulization 2.5 mg continuous nebulization Q6H PRN (Reason: Shortness Of Breath Or Wheezing) ketoconazole 2 % cream 1 applic TOPICAL BID Rx Instructions: FOR NECK RASH : APPLY TOPICALLY TO AFFECTED AREA TWICE DAILY. CURRENTLY ON HOLD levocetirizine 5 mg Tablet 5 mg PO HS PRN (Reason: Allergy Symptoms) folic acid 1 mg Tablet 1 mg PO DAILY mirtazapine 45 mg tablet 45 mg PO HS duloxetine 60 mg capsule,delayed release(DR/EC) 60 mg PO DAILY Rx Instructions: TAKE WITH 30MG = 90MG DAILY Tresiba FlexTouch U-200 200 unit/mL (3 mL) insulin pen 68 unit SUBCUT BID Rx Instructions: INJECT 68 UNITS BETWEEN 11AM AND 12 NOON, AND 68 UNITS BEFORE EVENING MEAL. Novolin R Regular U-100 Insuln 100 unit/mL solution 70 unit subcut .BREAKFAST Novolin R Regular U-100 Insuln 100 unit/mL solution 30 unit subcut .LUNCH Novolin R Regular U-100 Insuln 100 unit/mL solution 40 unit subcut .EVENING MEAL Jardiance 25 mg tablet 25 mg PO QAM metoprolol tartrate 25 mg Tablet 25 mg PO BID Qty: 60 0RF guaifenesin 200 mg tablet 200 mg PO TID PRN (Reason: cough) Qty: 15 0RF Eliquis 5 mg tablet 5 mg PO BID tqcanltdnvs-vnzykszdk-vtzgchvn 100-62.5-25 mcg Blister With Device 1 inh INHALATION DAILY pantoprazole 40 mg tablet,delayed release (DR/EC) 40 mg PO DAILY aspirin [Aspir-81] 81 mg Tablet,Delayed Release (Dr/Ec) 81 mg PO DAILY docusate sodium [Colace] 100 mg Capsule 100 mg PO BID potassium chloride 10 mEq capsule, extended release 10 meq PO DAILY Qty: 40 0RF Rx Instructions: On the day taking lasix Discontinued clindamycin HCl 300 mg capsule 600 mg PO TID Rx Instructions: x 10 days, prescribed 09/12 furosemide 40 mg tablet 40 mg PO QAM PRN (Reason: swelling) Discharge Orders: Discharge Order (Routine); Ordered 09/25/21 Ordered By: Fred Rowan Admission Data Admit Date/Time: 09/16/21 10:12 Attending Provider: Fred Rowan Admit Provider: Ricky Garza Primary Care Provider: Bairon Owens Other Providers: Ricky Garza ; Luis Butts ; Judah Gutierrez ; Israel Young ; Seema Bautista ; Ifrah Vasquez
== END 2021-09-25 15:35 | disposition home or self-care (01) | DRG 163 ==
LOC: ED 07:42 → SUATTDRO 10:12 → EDINP 10:12 → 2S 18:51 → 1E 09-24 09:38

== ENCOUNTER 2022-01-21 08:34 | Inpatient (IN) ==
--- NOTE | 2022-01-21 08:43 | Emergency Department Note ---
History of Present Illness General Chief complaint: Cardiac Arrest/CPR Stated complaint: POST RESP./CARDIAC ARREST Time Seen by Provider: 01/21/22 08:42 Source: EMS, RN notes reviewed and old records reviewed Mode of arrival: EMS Limitations: altered mental status (Patient is also intubated) History of Present Illness This patient is 71-year-old female who has a history of COPD and respiratory failure as well as CHF, comes in after having a cardiac arrest. She called out the ambulance for syncope but when they arrived she was in severe respiratory distress and then went unresponsive. She did receive epi x3 via an IO. She was also intubated. They sent me an EKG initially which look like sinus tach with a right bundle branch block at 140, a subsequent EKG showed right bundle but much slowed down. Upon arrival she has been bagged easily and is unable to give any further history. Her heart rate is come down and her blood pressure has been stable. Per her POLST she is full code. I did talk to the military personnel specialist both on the prehospital medical command and while he was here. He estimates her downtime was about 10 minutes. They did check a blood sugar and it was 222 Home Medications Medication Instructions Recorded Confirmed Type levothyroxine 100 mcg tablet 100 mcg PO DAILYBB 10/24/19 01/21/22 History montelukast 10 mg tablet 10 mg PO HS 10/24/19 01/21/22 History simvastatin 20 mg tablet 20 mg PO HS 10/24/19 01/21/22 History sumatriptan succinate 100 mg tablet 100 mg PO UD PRN Migraine Headache 10/24/19 01/21/22 History albuterol sulfate 2.5 mg/3 mL 2.5 mg continuous nebulization Q6H 08/11/20 01/21/22 History (0.083 %) solution for nebulization PRN Shortness Of Breath Or Wheezing duloxetine 60 mg capsule,delayed 120 mg PO DAILY 08/11/20 01/21/22 History release empagliflozin 25 mg tablet 25 mg PO QAM 08/11/20 01/21/22 History (Jardiance) folic acid 1 mg tablet 1 mg PO DAILY 08/11/20 01/21/22 History insulin degludec 200 unit/mL (3 45 unit subcut BID 08/11/20 01/21/22 History mL) subcutaneous pen (Tresiba FlexTouch U-200 insulin) insulin regular human 100 unit/mL 30 unit subcut .LUNCH 08/11/20 01/21/22 History injection solution (Novolin R Regular U-100 Insulin) insulin regular human 100 unit/mL 40 unit subcut .EVENING MEAL 08/11/20 01/21/22 History injection solution (Novolin R Regular U-100 Insulin) insulin regular human 100 unit/mL 70 unit subcut .BREAKFAST 08/11/20 01/21/22 History injection solution (Novolin R Regular U-100 Insulin) ketoconazole 2 % topical cream 1 applic topical BID 08/11/20 01/21/22 History levocetirizine 5 mg tablet 5 mg PO HS PRN Allergy Symptoms 08/11/20 01/21/22 History metformin 500 mg tablet,extended 2,000 mg PO DAILY 08/11/20 01/21/22 History release 24 hr mirtazapine 45 mg tablet 45 mg PO HS 08/11/20 01/21/22 History metoprolol tartrate 25 mg tablet 25 mg PO BID #60 tabs 08/18/20 01/21/22 Rx cyanocobalamin (vitamin B-12) 1,000 mcg PO DAILY 09/16/20 01/21/22 History 1,000 mcg tablet pregabalin 100 mg capsule 150 mg PO TID 09/16/20 01/21/22 History aspirin 81 mg tablet,delayed 81 mg PO DAILY 09/16/21 01/21/22 History release docusate sodium 100 mg capsule 100 mg PO BID 09/16/21 01/21/22 History (Colace) pantoprazole 40 mg tablet,delayed 40 mg PO DAILY 09/16/21 01/21/22 History release glycopyrrolate 1 mg tablet 1 mg PO TID 01/21/22 01/21/22 History meloxicam 15 mg tablet 15 mg PO QAM 01/21/22 01/21/22 History ursodiol 300 mg capsule 300 mg PO BID 01/21/22 01/21/22 History Allergies Allergy/AdvReac Type Severity Reaction Status Date / Time Insulins Allergy Severe LANTUS/LEVEMIR- Verified 09/16/21 09:46 HIVES/THROAT SWELLING moxifloxacin Allergy Severe HIVES Verified 09/16/21 09:46 nitrofurantoin Allergy Severe HIVES Verified 09/16/21 09:46 paroxetine Allergy Severe HIVES Verified 09/16/21 09:46 Quinolones Allergy Severe AVELOX & Verified 09/16/21 09:46 LEVAQUIN-HIVES amitriptyline Allergy Intermediate Sweats and Verified 09/16/21 09:46 itching buspirone Allergy Intermediate HIVES Verified 09/16/21 09:46 cephalexin Allergy Intermediate Hives Verified 09/16/21 09:46 citalopram Allergy Intermediate HIVES-RASH Verified 09/16/21 09:46 escitalopram Allergy Intermediate HIVES-RASH Verified 09/16/21 09:46 levofloxacin Allergy Intermediate Hives Verified 09/16/21 09:46 methadone Allergy Intermediate HIVES Verified 09/16/21 09:46 Penicillins Allergy Intermediate RASH,HIVES Verified 09/16/21 09:46 Serotonin 5HT-3 Antagonists Allergy Intermediate MIGRAINES Verified 09/16/21 09:46 TO SSRIs trazodone Allergy Intermediate BLOODY Verified 09/16/21 09:46 NOSE, HEADACHES,HIVES vancomycin Allergy Intermediate HIVES Verified 09/16/21 09:46 prednisone Allergy Mild CHEST Verified 09/16/21 09:46 TIGHTNESS carbamazepine Allergy Unknown HIVES-RASH- Verified 09/16/21 09:46 ITCHINESS cefepime Allergy Unknown face & arm Verified 09/16/21 09:46 redness/itching after 2nd or 3rd dose cefepime ceftriaxone Allergy Unknown Received Verified 09/16/21 09:46 in MTU (but needed benadryl for course of therapy Cipro Allergy Unknown ABD PAINS Verified 09/08/17 09:10 sertraline Allergy Unknown UNKNOWN Verified 09/16/21 09:46 sitagliptin Allergy Unknown HIVES Verified 09/16/21 09:46 azithromycin Allergy Hives Verified 09/16/21 09:46 Cephalosporins Allergy Hives Verified 09/16/21 09:46 metformin [From Janumet] Allergy Unknown Verified 09/16/21 09:46 fluoxetine AdvReac Severe ANAPHYLAXIS Verified 09/16/21 09:46 Tetracyclines AdvReac Severe HIVES Verified 09/16/21 09:46 Sulfa (Sulfonamide AdvReac Intermediate MIGRAINES Verified 09/16/21 09:46 Antibiotics) fexofenadine AdvReac Mild GI SYMPTOMS Verified 09/16/21 09:46 tizanidine AdvReac Mild ITCHING-HIV Verified 09/16/21 09:46 ES ciprofloxacin AdvReac Unknown ABD PAINS Verified 09/16/21 09:46 gentamicin AdvReac Unknown UNKNOWN Verified 09/16/21 09:46 lorazepam AdvReac Unknown Verified 09/16/21 09:46 blood Allergy Severe Anaphylaxis Uncoded 09/16/21 09:46 Past Med/Surg History Medical History Acute on chronic respiratory failure with hypoxia and hypercapnia Cerebrovascular disease "history left thalamic stroke" CHF (congestive heart failure) Chronic hypercapnic respiratory failure Chronic pain disorder (01/24/14) COPD (chronic obstructive pulmonary disease) Cough with hemoptysis CVA (cerebral vascular accident) hx of L thalamus CVA Diabetes mellitus, type II Dyslipidemia Encephalopathy acute HLD (hyperlipidemia) Hypertension Hypertension Hypertrophic cardiomyopathy Hypothyroidism Metabolic encephalopathy Morbid obesity Morbid obesity Obesity hypoventilation syndrome JOSE (obstructive sleep apnea) Recurrent UTI Respiratory acidosis Surgical History H/O partial nephrectomy History of tonsillectomy Hx of nasal septoplasty S/P dilatation and curettage Status post tonsillectomy Family History Father Coronary heart disease Mother Diabetes Social History Smoking Status: Never smoker Second Hand Exposure: No; Hx Alcohol Use: No Hx Substance Use: No Preferred Language: Greenlandic Communication Ability: Effective Route Deliverer Required: No Beliefs That Will Affect Care: None marital status: Current Living Situation: Spouse Current Living Situation Comment: living at home with How many Children do You have: 2 Other Information That Helps Us Care for You: No Feels Safe at Home: Yes Safety Concerns: Feels Safe At This Time Assistive Devices: BiPap, Denture - Upper and Mechanical Lift Review of Systems Unobtainable due to reduced consciousness Physical Exam Vital Signs Vital Signs - 24 hr 01/21/22 09:09 01/21/22 09:00 01/21/22 08:39 Temperature 36.4 C L Temperature Source Ferrell Cath ( Temp Sensing) Pulse Rate 52 L 71 Pulse Rate [Apical] Respiratory Rate 18 Blood Pressure 138/47 L Blood Pressure [Left Arm] Blood Pressure Mean 77 Blood Pressure Mean [Left Arm] Pulse Oximetry 97 97 Oxygen Delivery Method Mechanical Vent Mechanical Vent Mechanical Vent Fraction of Inspired Oxygen Sepsis Recent Fever Within 48 Hours No Sepsis New/Unexplained Change in Mental Status Yes Sepsis Action Taken by Nursing No Action Required End-Tidal CO2 Pulse Oximetry Post Tiitration 100 01/21/22 09:14 01/21/22 09:15 01/21/22 09:30 Temperature Temperature Source Pulse Rate 74 Pulse Rate [Apical] 69 69 Respiratory Rate 18 28 H 23 Blood Pressure Blood Pressure [Left Arm] 116/53 L 111/53 L Blood Pressure Mean Blood Pressure Mean [Left Arm] 74 72 Pulse Oximetry 100 98 99 Oxygen Delivery Method Room Air Mechanical Vent Fraction of Inspired Oxygen 100 Sepsis Recent Fever Within 48 Hours Sepsis New/Unexplained Change in Mental Status Sepsis Action Taken by Nursing End-Tidal CO2 45 Pulse Oximetry Post Tiitration 01/21/22 09:41 01/21/22 10:00 Temperature Temperature Source Pulse Rate Pulse Rate [Apical] 67 67 Respiratory Rate 28 H Blood Pressure Blood Pressure [Left Arm] 103/57 L 109/51 L Blood Pressure Mean Blood Pressure Mean [Left Arm] 72 70 Pulse Oximetry 100 100 Oxygen Delivery Method Mechanical Vent Mechanical Vent Fraction of Inspired Oxygen Sepsis Recent Fever Within 48 Hours Sepsis New/Unexplained Change in Mental Status Sepsis Action Taken by Nursing End-Tidal CO2 Pulse Oximetry Post Tiitration General: Well developed well nourished chronically ill-appearing older female who is intubated and bagging easily in no acute distress, breathing comfortably on room air. HEENT: Normal cephalic atraumatic. Pupils are equal round and reactive to light. Oropharynx is pink with moist mucous membranes. No swelling of the mouth lips or tongue. Neck: Supple with a midline trachea. No meningeal signs or stiffness, no JVD or bruits. No Stridor. Chest: Clear to auscultation bilaterally with bagging of the endotracheal tube. No wheezes or rhonchi. No increased work of breathing. Heart: Regular rate and rhythm without murmurs or gallops. Abdomen: Soft nontender, nondistended without rebound guarding or rigidity. No breath sounds heard over the stomach Extremities: No cyanosis clubbing or edema. No calf tenderness or assymetry Spine/Back. Non tender to palpation. No CVA tenderness Skin: Good turgor without rashes. Neurologic exam: Obtunded. She has no movement. She has not had no sedation. Course Administered Medications Insulin Aspart (Insulin Aspart Per Unit) 0 units SC Q6 WALDO; Protocol Stop: 02/20/22 11:59 Last Admin: 01/21/22 11:56 Dose: 5 units Documented By: CLAY Co-signed By: CASSIA Midazolam HCl (Midazolam Hcl 1 Mg/Ml 2ml Vial) 2 mg IV Q2H PRN PRN Reason: RASS goal -1 Stop: 02/20/22 12:43 Last Admin: 01/21/22 12:54 Dose: 2 mg Documented By: CLAY Discontinued Medications Epinephrine HCl (Epinephrine Inj 1 Mg/Ml Amp) Confirm Administered Dose 1 mg .ROUTE .STK-MED ONE Stop: 01/21/22 08:54 Last Admin: 01/21/22 11:08 Dose: Not Given Documented By: LUPILLO Sodium Chloride (Nss) 500 mls @ 999 mls/hr IV .Q31M ONE Stop: 01/21/22 10:10 Last Infusion: 01/21/22 10:19 Dose: 0 mls/hr Documented By: Admin: 01/21/22 09:45 Dose: 999 mls/hr Documented By: LUPILLO Daptomycin 525 mg/ Syringe 10.5 mls @ 5.25 mls/min IV ONE ONE; Protocol Stop: 01/21/22 10:01 Last Admin: 01/21/22 10:18 Dose: 5.25 mls/min Documented By: LUPILLO Meropenem 500 mg/ Syringe 10 mls @ 2 mls/min IV NOW STA; Protocol Stop: 01/21/22 10:02 Last Admin: 01/21/22 12:12 Dose: 2 mls/min Documented By: CLAY Critical Care Time Critical Care Time: Yes Total Critical Care Time: 60 Due to the patient's status postcardiac/respiratory arrest, need for frequent reassessment, ventilator management, medications, consultations, discussion with the family, I have personally spent greater than 60 minutes of critical care time in the direct management of this patient. This includes bedside care, interpretation of diagnostic studies, and testing, discussion with consultants, patient, and family members, and other required patient management activities. This 60 minutes is in excess of all separately billable procedures. Medical Decision Making Differential Diagnosis Respiratory failure, acute coronary syndrome, arrhythmia, infection, neurologic process Medical Records Attestation: I reviewed the patient's medical records. Home Medications Current Medication List: was personally reviewed by me Laboratory Data Attestation: I reviewed the patient's lab results. Result diagrams: 01/21/22 08:47 01/21/22 08:47 Lab Results 01/21/22 01/21/22 01/21/22 Range/Units 08:47 08:47 08:47 WBC 14.79 H (4.8-10.8) K/ul RBC 4.10 (3.93-5.22) M/uL Hgb 11.7 L (12.0-16.0) g/dl Hct 40.6 (34.1-44.9) % MCV 99.0 (80.0-100.0) fL MCH 28.5 (25.0-34.0) pg MCHC 28.8 L (32.0-36.0) g/dL RDW Std Deviation 53.4 H (36.4-46.3) fL RDW Coeff of Duy 14.5 (11.5-14.5) % Plt Count 139 (130-400) K/uL MPV 12.5 H (9.4-12.3) fL Immature Gran % (Auto) 5.0 % Neut % (Auto) 78.6 % Lymph % (Auto) 11.7 % Pettis % (Auto) 3.7 % Eos % (Auto) 0.5 % Baso % (Auto) 0.5 % Neut # (Auto) 11.63 H (1.4-6.5) K/uL Lymph # (Auto) 1.73 (1.2-3.4) K/uL Pettis # (Auto) 0.54 (0.24-0.82) K/uL Eos # (Auto) 0.07 (0-0.50) K/uL Baso # (Auto) 0.08 (0-0.2) K/uL Immature Gran # (Auto) 0.74 H (0.00-0.02) K/uL Absolute Nucleated RBC 0.02 H (0-0) K/uL Nucleated RBC % (auto) 0.1 % PT 11.5 (9.0-12.0) Seconds INR 1.1 (0.9-1.1) APTT 28.2 (21.0-31.0) Seconds PTT Ratio 1.0 VBG pH (7.36-7.41) VBG pCO2 (38-50) mmHg VBG pO2 mmHg VBG HCO3 mmol/L VBG O2 Saturation % VBG Base Excess mEq/L Sodium (136-145) mmol/L Potassium (3.5-5.1) mmol/L Chloride (98-107) mmol/L Carbon Dioxide (21-32) mmol/L Anion Gap (3-11) BUN (6-23) mg/dl Creatinine (0.6-1.2) mg/dl Est Cr Clr Drug Dosing ml/min Est GFR ( Amer) ml/min Est GFR (Non-Af Amer) ml/min BUN/Creatinine Ratio (10-20) Glucose (70-99(Fasting)) mg/dl Lactate (0.4-2.0) mmol/L Calcium (8.5-10.1) mg/dl Magnesium (1.7-2.4) mg/dl Total Bilirubin (0.2-1.0) mg/dl Direct Bilirubin (0-0.2) mg/dl AST (13-39) U/L ALT (7-52) U/L Alkaline Phosphatase (34-104) U/L Troponin I High Sens (0-14) pg/ml B-Natriuretic Peptide (0-100) pg/ml Total Protein (6.0-8.3) gm/dl Albumin (3.4-5.0) gm/dl Procalcitonin (0-0.5) ng/ml Urine Color Urine Appearance (Clear) Urine pH (4.5-7.5) Ur Specific [place] (1.000-1.030) Urine Protein (Negative) Urine Glucose (UA) (Negative) Urine Ketones (Negative) Urine Blood (Negative) Urine Nitrite (Negative) Urine Bilirubin (Negative) Urine Urobilinogen (Negative) Ur Leukocyte Esterase (Negative) Urine WBC (Auto) (0-5) /hpf Urine RBC (Auto) (0-4) /hpf U Hyaline Cast (Auto) (0-5) /lpf U Epithel Cells (Auto) (0-5) /lpf Urine Bacteria (Auto) (Negative) Ur Renal Epithelial Cell Urine Yeast (None Prsent) SARS-CoV-2 (PCR) (Negative) Influenza Type A (PCR) (Neg) Influenza Type B (PCR) (Neg) RSV (RT-PCR) (Neg) Blood Type O Positive Antibody Screen NEGATIVE 01/21/22 01/21/22 01/21/22 Range/Units 08:47 08:47 08:47 WBC (4.8-10.8) K/ul RBC (3.93-5.22) M/uL Hgb (12.0-16.0) g/dl Hct (34.1-44.9) % MCV (80.0-100.0) fL MCH (25.0-34.0) pg MCHC (32.0-36.0) g/dL RDW Std Deviation (36.4-46.3) fL RDW Coeff of Duy (11.5-14.5) % Plt Count (130-400) K/uL MPV (9.4-12.3) fL Immature Gran % (Auto) % Neut % (Auto) % Lymph % (Auto) % Pettis % (Auto) % Eos % (Auto) % Baso % (Auto) % Neut # (Auto) (1.4-6.5) K/uL Lymph # (Auto) (1.2-3.4) K/uL Pettis # (Auto) (0.24-0.82) K/uL Eos # (Auto) (0-0.50) K/uL Baso # (Auto) (0-0.2) K/uL Immature Gran # (Auto) (0.00-0.02) K/uL Absolute Nucleated RBC (0-0) K/uL Nucleated RBC % (auto) % PT (9.0-12.0) Seconds INR (0.9-1.1) APTT (21.0-31.0) Seconds PTT Ratio VBG pH (7.36-7.41) VBG pCO2 (38-50) mmHg VBG pO2 mmHg VBG HCO3 mmol/L VBG O2 Saturation % VBG Base Excess mEq/L Sodium 138 (136-145) mmol/L Potassium 5.0 (3.5-5.1) mmol/L Chloride 94 L (98-107) mmol/L Carbon Dioxide 35 H (21-32) mmol/L Anion Gap 9 (3-11) BUN 21 (6-23) mg/dl Creatinine 0.95 (0.6-1.2) mg/dl Est Cr Clr Drug Dosing 74.6 ml/min Est GFR ( Amer) 69.4 ml/min Est GFR (Non-Af Amer) 59.8 ml/min BUN/Creatinine Ratio 22.1 H (10-20) Glucose 210 H (70-99(Fasting)) mg/dl Lactate 7.9 H* (0.4-2.0) mmol/L Calcium 9.0 (8.5-10.1) mg/dl Magnesium 2.1 (1.7-2.4) mg/dl Total Bilirubin 0.5 (0.2-1.0) mg/dl Direct Bilirubin 0.2 (0-0.2) mg/dl AST 13 (13-39) U/L ALT 7 (7-52) U/L Alkaline Phosphatase 80 (34-104) U/L Troponin I High Sens 27.7 H (0-14) pg/ml B-Natriuretic Peptide (0-100) pg/ml Total Protein 6.4 (6.0-8.3) gm/dl Albumin 3.6 (3.4-5.0) gm/dl Procalcitonin 0.25 (0-0.5) ng/ml Urine Color Urine Appearance (Clear) Urine pH (4.5-7.5) Ur Specific [place] (1.000-1.030) Urine Protein (Negative) Urine Glucose (UA) (Negative) Urine Ketones (Negative) Urine Blood (Negative) Urine Nitrite (Negative) Urine Bilirubin (Negative) Urine Urobilinogen (Negative) Ur Leukocyte Esterase (Negative) Urine WBC (Auto) (0-5) /hpf Urine RBC (Auto) (0-4) /hpf U Hyaline Cast (Auto) (0-5) /lpf U Epithel Cells (Auto) (0-5) /lpf Urine Bacteria (Auto) (Negative) Ur Renal Epithelial Cell Urine Yeast (None Prsent) SARS-CoV-2 (PCR) (Negative) Influenza Type A (PCR) (Neg) Influenza Type B (PCR) (Neg) RSV (RT-PCR) (Neg) Blood Type Antibody Screen 01/21/22 01/21/22 01/21/22 Range/Units 08:47 08:47 08:50 WBC (4.8-10.8) K/ul RBC (3.93-5.22) M/uL Hgb (12.0-16.0) g/dl Hct (34.1-44.9) % MCV (80.0-100.0) fL MCH (25.0-34.0) pg MCHC (32.0-36.0) g/dL RDW Std Deviation (36.4-46.3) fL RDW Coeff of Duy (11.5-14.5) % Plt Count (130-400) K/uL MPV (9.4-12.3) fL Immature Gran % (Auto) % Neut % (Auto) % Lymph % (Auto) % Pettis % (Auto) % Eos % (Auto) % Baso % (Auto) % Neut # (Auto) (1.4-6.5) K/uL Lymph # (Auto) (1.2-3.4) K/uL Pettis # (Auto) (0.24-0.82) K/uL Eos # (Auto) (0-0.50) K/uL Baso # (Auto) (0-0.2) K/uL Immature Gran # (Auto) (0.00-0.02) K/uL Absolute Nucleated RBC (0-0) K/uL Nucleated RBC % (auto) % PT (9.0-12.0) Seconds INR (0.9-1.1) APTT (21.0-31.0) Seconds PTT Ratio VBG pH 7.06 L (7.36-7.41) VBG pCO2 > 125 H (38-50) mmHg VBG pO2 48 mmHg VBG HCO3 36 mmol/L VBG O2 Saturation 71.5 % VBG Base Excess 2.6 mEq/L Sodium (136-145) mmol/L Potassium (3.5-5.1) mmol/L Chloride (98-107) mmol/L Carbon Dioxide (21-32) mmol/L Anion Gap (3-11) BUN (6-23) mg/dl Creatinine (0.6-1.2) mg/dl Est Cr Clr Drug Dosing ml/min Est GFR ( Amer) ml/min Est GFR (Non-Af Amer) ml/min BUN/Creatinine Ratio (10-20) Glucose (70-99(Fasting)) mg/dl Lactate (0.4-2.0) mmol/L Calcium (8.5-10.1) mg/dl Magnesium (1.7-2.4) mg/dl Total Bilirubin (0.2-1.0) mg/dl Direct Bilirubin (0-0.2) mg/dl AST (13-39) U/L ALT (7-52) U/L Alkaline Phosphatase (34-104) U/L Troponin I High Sens (0-14) pg/ml B-Natriuretic Peptide 287 H (0-100) pg/ml Total Protein (6.0-8.3) gm/dl Albumin (3.4-5.0) gm/dl Procalcitonin (0-0.5) ng/ml Urine Color Yellow Urine Appearance Clear (Clear) Urine pH 5.5 (4.5-7.5) Ur Specific [place] 1.020 (1.000-1.030) Urine Protein 1+ H (Negative) Urine Glucose (UA) 3+ H (Negative) Urine Ketones Negative (Negative) Urine Blood Negative (Negative) Urine Nitrite Negative (Negative) Urine Bilirubin Negative (Negative) Urine Urobilinogen Negative (Negative) Ur Leukocyte Esterase Negative (Negative) Urine WBC (Auto) 1-5 (0-5) /hpf Urine RBC (Auto) 0-4 (0-4) /hpf U Hyaline Cast (Auto) 1-5 (0-5) /lpf U Epithel Cells (Auto) >30 H (0-5) /lpf Urine Bacteria (Auto) 1+ H (Negative) Ur Renal Epithelial Cell Not Reportable Urine Yeast Present A (None Prsent) SARS-CoV-2 (PCR) (Negative) Influenza Type A (PCR) (Neg) Influenza Type B (PCR) (Neg) RSV (RT-PCR) (Neg) Blood Type Antibody Screen 01/21/22 Range/Units 09:12 WBC (4.8-10.8) K/ul RBC (3.93-5.22) M/uL Hgb (12.0-16.0) g/dl Hct (34.1-44.9) % MCV (80.0-100.0) fL MCH (25.0-34.0) pg MCHC (32.0-36.0) g/dL RDW Std Deviation (36.4-46.3) fL RDW Coeff of Duy (11.5-14.5) % Plt Count (130-400) K/uL MPV (9.4-12.3) fL Immature Gran % (Auto) % Neut % (Auto) % Lymph % (Auto) % Pettis % (Auto) % Eos % (Auto) % Baso % (Auto) % Neut # (Auto) (1.4-6.5) K/uL Lymph # (Auto) (1.2-3.4) K/uL Pettis # (Auto) (0.24-0.82) K/uL Eos # (Auto) (0-0.50) K/uL Baso # (Auto) (0-0.2) K/uL Immature Gran # (Auto) (0.00-0.02) K/uL Absolute Nucleated RBC (0-0) K/uL Nucleated RBC % (auto) % PT (9.0-12.0) Seconds INR (0.9-1.1) APTT (21.0-31.0) Seconds PTT Ratio VBG pH (7.36-7.41) VBG pCO2 (38-50) mmHg VBG pO2 mmHg VBG HCO3 mmol/L VBG O2 Saturation % VBG Base Excess mEq/L Sodium (136-145) mmol/L Potassium (3.5-5.1) mmol/L Chloride (98-107) mmol/L Carbon Dioxide (21-32) mmol/L Anion Gap (3-11) BUN (6-23) mg/dl Creatinine (0.6-1.2) mg/dl Est Cr Clr Drug Dosing ml/min Est GFR ( Amer) ml/min Est GFR (Non-Af Amer) ml/min BUN/Creatinine Ratio (10-20) Glucose (70-99(Fasting)) mg/dl Lactate (0.4-2.0) mmol/L Calcium (8.5-10.1) mg/dl Magnesium (1.7-2.4) mg/dl Total Bilirubin (0.2-1.0) mg/dl Direct Bilirubin (0-0.2) mg/dl AST (13-39) U/L ALT (7-52) U/L Alkaline Phosphatase (34-104) U/L Troponin I High Sens (0-14) pg/ml B-Natriuretic Peptide (0-100) pg/ml Total Protein (6.0-8.3) gm/dl Albumin (3.4-5.0) gm/dl Procalcitonin (0-0.5) ng/ml Urine Color Urine Appearance (Clear) Urine pH (4.5-7.5) Ur Specific [place] (1.000-1.030) Urine Protein (Negative) Urine Glucose (UA) (Negative) Urine Ketones (Negative) Urine Blood (Negative) Urine Nitrite (Negative) Urine Bilirubin (Negative) Urine Urobilinogen (Negative) Ur Leukocyte Esterase (Negative) Urine WBC (Auto) (0-5) /hpf Urine RBC (Auto) (0-4) /hpf U Hyaline Cast (Auto) (0-5) /lpf U Epithel Cells (Auto) (0-5) /lpf Urine Bacteria (Auto) (Negative) Ur Renal Epithelial Cell Urine Yeast (None Prsent) SARS-CoV-2 (PCR) NEGATIVE (Negative) Influenza Type A (PCR) Negative (Neg) Influenza Type B (PCR) Negative (Neg) RSV (RT-PCR) Negative (Neg) Blood Type Antibody Screen Imaging Data Attestation: I personally reviewed and interpreted this imaging study as follows: My Impression: Chest x-rayendotracheal tube in place. Cardiomegaly with infiltrates versus congestive heart failure Head CTno mass or hemorrhage. Chest CTsignificant changes in her lung rojas. No pneumothorax appreciate Radiologist's Impression: Chest X-Ray 01/21/22 08:39 SINGLE VIEW CHEST CLINICAL HISTORY: Sepsis. Status post cardiac arrest. Respiratory failure. FINDINGS: An AP, portable, upright chest radiograph is compared to study dated 09/25/2021 and correlated with chest CT performed the same day 01/21/2022. An endotracheal tube has been placed. The tip projects approximately 3.5 cm above the markel. An enteric tube has been placed. The tip projects below the diaphragm over the stomach. The heart is enlarged. There is pulmonary vascular congestion. Bilateral airspace opacities are noted. There are layering pleural effusions with dependent consolidation. No pneumothorax is seen. The skeletal structures are osteopenic. Anterior rib fractures seen by CT are not apparent on x-ray. A benign-appearing chondroid lesion is again seen in the right proximal humerus. IMPRESSION: 1. Endotracheal and enteric tube placement as above. 2. Cardiomegaly with evidence of congestive failure. 3. Bilateral airspace opacities could represent pulmonary edema and/or an infectious/inflammatory pneumonitis. Clinical correlation will be required. 4. Bilateral pleural effusions with dependent consolidation. 5. Anterior rib fractures seen by CT are not apparent on x-ray. ACT 112: Negative or not required by law. Electronically signed by: Luis Meraz M.D. 01/21/2022 9:[address] 01/21/22 08:46 CT SCAN OF THE BRAIN WITHOUT IV CONTRAST CLINICAL HISTORY: Status post cardiac arrest. COMPARISON STUDY: CT of the brain dated 09/24/2021. TECHNIQUE: Unenhanced axial CT scan of the brain is performed from the vertex to the skull base. A dose lowering technique was utilized adhering to the principles of ALARA. FINDINGS: Brain parenchyma: There is age-related involutional change noting mild subcortical and periventricular microangiopathic disease. There is no hemorrhage, mass effect, or evidence of acute territorial ischemia by CT criteria. Ramires-white matter differentiation is preserved. No extra-axial fluid collection is seen. Ventricles, sulci, cisterns: Prominent secondary to involutional change. Intracranial vasculature: There is atherosclerotic calcification of the cavernous carotid arteries. Calvarium: Unremarkable. Sinuses and mastoids: The visualized paranasal sinuses are clear. There is a large right mastoid effusion, which is similar to previous. The left mastoid air cells are well pneumatized. Orbits: The bony orbits are grossly intact. IMPRESSION: There is no hemorrhage, mass effect, or evidence of acute territorial ischemia by CT criteria. ACT 112: Negative or not required by law. Electronically signed by: Luis Meraz M.D. 01/21/2022 9:[address] 01/21/22 08:58 CT chest diagnostic wo con CT DOSE: 1527.68 mGy.cm CLINICAL HISTORY: 71 years-old Female with s/p cardiac arrest. Acute cardiac arrest TECHNIQUE: Multiaxial CT images of the chest were performed without contrast. A dose lowering technique was utilized adhering to the principles of ALARA. COMPARISON: Chest radiograph of same day, CTA chest 08/11/2020 FINDINGS: Findings are suspicious for an acute nondisplaced sternal manubrial fracture. Numerous acute bilateral post resuscitation rib fractures are noted bilaterally. This includes fractures of the anterior right first through seventh and left anterior and lateral aspects of the second through sixth ribs. Several of the ribs are fractured in at least 2 places on the left. No vertebral body fracture identified. Endotracheal tube overlies the midline, 2.8 cm superior to the markel. Enteric tube courses into the stomach with distal tip outside the [id number]. Cardiomegaly with coronary arterial calcifications. Dilated pulmonary artery measuring 3.5 cm suggestive of pulmonary arterial hypertension. Subcentimeter thyroid nodules. Mediastinal and hilar adenopathy includes a 1.7 cm right pretracheal lymph node. Small right with small moderate left pleural effusions. Intralobular septal thickening with intermixed groundglass and consolidative opacities are noted within a multilobar distribution, left greater than right. Dense dependent bibasilar predominant consolidation. Bibasilar mucous pl ugging/opacification. Hepatosplenomegaly with upper abdominal ascites and cirrhosis. Mild generalized body wall edema. IMPRESSION: 1. Cardiomegaly with pulmonary edema, small right and small moderate left pleural effusions. 2. Dependent bibasilar consolidation, left greater than right suggestive of aspiration. Additional multilobar patchy groundglass and consolidative opacities , left greater than right may also be related to the aspiration or represent a nonspecific pneumonia. 3. Mediastinal and hilar lymphadenopathy, likely reactive. 4. Numerous acute bilateral rib fractures as described above meeting diagnostic criteria for flail chest. Equivocal subtle acute nondisplaced sternal manubrial fracture. 5. Satisfactory positioning of the endotracheal and enteric tubes. No pneumothorax. ACT 112: Negative or not required by law. Electronically signed by: Dioni Turpin M.D. 01/21/2022 9:49 AM ECG Data Attestation: I personally reviewed and interpreted this ECG as follows: Indication: + SOB/dyspnea and + other (Altered mental status) Rate (beats per minute): 52 Rhythm: + sinus bradycardia ECG Intervals/blocks: + Right Bundle branch block and + Normal QT ECG [place]: + Normal ECG ST segments: + Normal ST segments ECG Findings: no PACs or no PVCs Comparison ECG Date: from (Her prehospital EKG) Change: the following changes noted (Rate has decreased from 160) MDM Narrative This patient comes in as described above. She was placed in room B1. She is here for treatment evaluation of altered mental status and cardiac arrest essentially was more actually respiratory arrest she has a pulse at present. IV access was established in addition we do have an IO in her right leg. He had been intubated prior to arrival she had good breath sounds bilaterally and no breath sounds over the stomach she bagged easily. We did place an NG tube as well. Multiple blood testing was obtained including a VBG. Her mental status was altered with no responsiveness despite not having any sedation. Given her respiratory failure history, I was concerned about a CO2. Her EKG shows what looks like a sinus bradycardia with a right bundle branch block. It may be more of a junctional as well. I did call the on-call heart alert application development specialist, Dr. Mckeon, as she is postarrest. I do not think she is most likely a candidate for cardiac cath or code [place] but I wanted to run it by cardiology. I think is most likely respiratory arrest. Dr. Mckeon agreed and did not feel that she was in acute candidate for cardiac cath and code [place]. Mika Reynoso from the ICU did promptly arrive and did see the patient in ER as well and help manage the care. The VBG came back significantly abnormal with a pH of 7.0 and a very high PCO2, in light of this we did make some changes on the vent to help her blow off the CO2. White count was elevated 14 as well as a lactic acid but she did have 10 to 15 minutes of CPR so is most likely a stress reaction rather than infect ion although infection is possible. She has no significant electrolyte or metabolic abnormalities. EKG does not show to suggest ischemia. We did give her meropenem IV as she has multiple allergies but has done okay with this before at this was to cover the possibility for infection/sepsis she was given 500 cc normal saline bolus but I did not give her the 30/kg as I was concerned about contrast of heart failure and I do not think sepsis was the most likely diagnosis. Her lactic acid did start to clear significantly. She will be admitted to the ICU I also Consulted the [facility] Hospitalist who saw her in the ER. I talked to the family at length as this patient is critically ill and prognosis is poor. Continuous cardiac monitoring: Orders placed in EMR for continuous cardiac monitoring. Upon my interpretation, the patient noted to be in normal sinus rhythm with a rate of 70. Impression & Plan Cardiac arrest, Acute on chronic respiratory failure with hypercapnia, COPD (chronic obstructive pulmonary disease), Elevated lactic acid level, Altered mental status Discharge Plan Visit Data Chief Complaint: Cardiac Arrest/CPR Stated Complaint: POST RESP./CARDIAC ARREST ED Provider: Kendrick Ware Discharge Problem: Cardiac arrest, Acute on chronic respiratory failure with hypercapnia, COPD (chronic obstructive pulmonary disease), Elevated lactic acid level, Altered mental status Patient Disposition: Admitted As Inpatient Discharge Instructions Interventions: ED Discharge Assessment Last Done: 01/21/22 10:40 : COPD (chronic obstructive pulmonary disease) Qualifiers: COPD type: unspecified COPD Qualified Code(s): J44.9 - Chronic obstructive pulmonary disease, unspecified Altered mental status Qualifiers: Altered mental status type: unspecified Qualified Code(s): R41.82 - Altered mental status, unspecified
[2022-01-21] MEDS ORDERED: EPINEPHrine INJ 1 MG/ML AMP ONE (08:53)
[2022-01-21 09:03] LABS: Base Excess VBG 2.6 mEq/L; HCO3 VBG 36 mmol/L; Oxygen Saturation VBG 71.5 %; PCO2 VBG > 125 mmHg (38-50); PO2 VBG 48 mmHg; pH VBG 7.06 (7.36-7.41)
[2022-01-21 09:05] LABS: Hematocrit (blood only) 40.6 % (34.1-44.9); Hemoglobin 11.7 g/dl (12.0-16.0); Mean Corpuscular Hemoglobin 28.5 pg (25.0-34.0); Mean Corpuscular Hgb Conc 28.8 g/dL (32.0-36.0); Mean Platelet Volume 12.5 fL (9.4-12.3); Nucleated RBC # (auto) 0.02 K/uL (0-0); Nucleated RBC % (auto) 0.1 %; Platelet Count 139 K/uL (130-400); RDW Coefficient of Variation 14.5 % (11.5-14.5); RDW Standard Deviation 53.4 fL (36.4-46.3); White Blood Count 14.79 K/ul (4.8-10.8)
[2022-01-21 09:14] LABS: INR 1.1 (0.9-1.1); Partial Thromboplastin Time 28.2 Seconds (21.0-31.0); Prothrombin Time 11.5 Seconds (9.0-12.0)
--- NOTE | 2022-01-21 09:17 | CT Scan Report ---
CT SCAN OF THE BRAIN WITHOUT IV CONTRAST CLINICAL HISTORY: Status post cardiac arrest. COMPARISON STUDY: CT of the brain dated 09/24/2021. TECHNIQUE: Unenhanced axial CT scan of the brain is performed from the vertex to the skull base. A do se lowering technique was utilized adhering to the principles of ALARA. FINDINGS: Brain parenchyma: There is age-related involutional change noting mild subcortical and periventricula r microangiopathic disease. There is no hemorrhage, mass effect, or evidence of acute territorial isc hemia by CT criteria. Ramires-white matter differentiation is preserved. No extra-axial fluid collection is seen. Ventricles, sulci, cisterns: Prominent secondary to involutional change. Intracranial vasculature: There is atherosclerotic calcification of the cavernous carotid arteries. Calvarium: Unremarkable. Sinuses and mastoids: The visualized paranasal sinuses are clear. There is a large right mastoid effu angel, which is similar to previous. The left mastoid air cells are well pneumatized. Orbits: The bony orbits are grossly intact. IMPRESSION: There is no hemorrhage, mass effect, or evidence of acute territorial ischemia by CT patricia carter. ACT 112: Negative or not required by law. Electronically signed by: Luis Meraz M.D. 01/21/2022 9:15 AM
[2022-01-21 09:26] LABS: Basophils # (auto) 0.08 K/uL (0-0.2); Basophils % (auto) 0.5 %; Eosinophils # (auto) 0.07 K/uL (0-0.50); Eosinophils % (auto) 0.5 %; Immature Granulocytes # (auto) 0.74 K/uL (0.00-0.02); Lymphocytes # (auto) 1.73 K/uL (1.2-3.4); Lymphocytes % (auto) 11.7 %; Monocytes # (auto) 0.54 K/uL (0.24-0.82); Monocytes % (auto) 3.7 %; Neutrophils # (auto) 11.63 K/uL (1.4-6.5); Neutrophils % (auto) 78.6 %
[2022-01-21 09:30] LABS: Appearance Urine Clear (Clear); Bacteria Urine Automated 1+ (Negative); Bilirubin Urine Negative (Negative); Blood Urine Negative (Negative); Color Urine Yellow; Epithelial Cell Urine Auto >30 /lpf (0-5); Glucose Urine UA 3+ (Negative); Ketones Urine Negative (Negative); Leukocyte Esterase Urine Negative (Negative); Nitrite Urine Negative (Negative); Protein Urine 1+ (Negative); RBC Urine Automated 0-4 /hpf (0-4); Urobilinogen Urine Negative (Negative); pH Urine 5.5 (4.5-7.5)
--- NOTE | 2022-01-21 09:32 | XRay Report ---
SINGLE VIEW CHEST CLINICAL HISTORY: Sepsis. Status post cardiac arrest. Respiratory failure. FINDINGS: An AP, portable, upright chest radiograph is compared to study dated 09/25/2021 and correlat ed with chest CT performed the same day 01/21/2022. An endotracheal tube has been placed. The tip proj ects approximately 3.5 cm above the markel. An enteric tube has been placed. The tip projects below t he diaphragm over the stomach. The heart is enlarged. There is pulmonary vascular congestion. Bilater al airspace opacities are noted. There are layering pleural effusions with dependent consolidation. N o pneumothorax is seen. The skeletal structures are osteopenic. Anterior rib fractures seen by CT are not apparent on x-ray. A benign-appearing chondroid lesion is again seen in the right proximal humer us. IMPRESSION: 1. Endotracheal and enteric tube placement as above. 2. Cardiomegaly with evidence of congestive failure. 3. Bilateral airspace opacities could represent pulmonary edema and/or an infectious/inflammatory pne umonitis. Clinical correlation will be required. 4. Bilateral pleural effusions with dependent consolidation. 5. Anterior rib fractures seen by CT are not apparent on x-ray. ACT 112: Negative or not required by law. Electronically signed by: Luis Meraz M.D. 01/21/2022 9:30 AM
[2022-01-21 09:35] LABS: Albumin Level 3.6 gm/dl (3.4-5.0); BUN Creatinine Ratio 22.1 (10-20); Bilirubin Direct 0.2 mg/dl (0-0.2); Bilirubin,Total 0.5 mg/dl (0.2-1.0); Creatinine Clr Calc Pharmacy 74.6 ml/min; Est GFR (African American) 69.4 ml/min; Est GFR (Non-African American) 59.8 ml/min; Magnesium 2.1 mg/dl (1.7-2.4); Total Protein 6.4 gm/dl (6.0-8.3)
[2022-01-21] MEDS ORDERED: SODIUM CHLORIDE 0.9% 500 ML IV ONE (09:40)
--- NOTE | 2022-01-21 09:51 | CT Scan Report ---
CT chest diagnostic wo con CT DOSE: 1527.68 mGy.cm CLINICAL HISTORY: 71 years-old Female with s/p cardiac arrest. Acute cardiac arrest TECHNIQUE: Multiaxial CT images of the chest were performed without contrast. A dose lowering techni que was utilized adhering to the principles of ALARA. COMPARISON: Chest radiograph of same day, CTA chest 08/11/2020 FINDINGS: Findings are suspicious for an acute nondisplaced sternal manubrial fracture. Numerous acut e bilateral post resuscitation rib fractures are noted bilaterally. This includes fractures of the an terior right first through seventh and left anterior and lateral aspects of the second through sixth ribs. Several of the ribs are fractured in at least 2 places on the left. No vertebral body fracture identified. Endotracheal tube overlies the midline, 2.8 cm superior to the markel. Enteric tube courses into the stomach with distal tip outside the [id number]. Cardiomegaly with coronary arterial calcifications . Dilated pulmonary artery measuring 3.5 cm suggestive of pulmonary arterial hypertension. Subcentime ter thyroid nodules. Mediastinal and hilar adenopathy includes a 1.7 cm right pretracheal lymph node. Small right with small moderate left pleural effusions. Intralobular septal thickening with intermix ed groundglass and consolidative opacities are noted within a multilobar distribution, left greater t alvarez right. Dense dependent bibasilar predominant consolidation. Bibasilar mucous plugging/opacificati on. Hepatosplenomegaly with upper abdominal ascites and cirrhosis. Mild generalized body wall edema. IMPRESSION: 1. Cardiomegaly with pulmonary edema, small right and small moderate left pleural effusions. 2. Dependent bibasilar consolidation, left greater than right suggestive of aspiration. Additional mu ltilobar patchy groundglass and consolidative opacities , left greater than right may also be related to the aspiration or represent a nonspecific pneumonia. 3. Mediastinal and hilar lymphadenopathy, likely reactive. 4. Numerous acute bilateral rib fractures as described above meeting diagnostic criteria for flail ch est. Equivocal subtle acute nondisplaced sternal manubrial fracture. 5. Satisfactory positioning of the endotracheal and enteric tubes. No pneumothorax. ACT 112: Negative or not required by law. Electronically signed by: Dioni Turpin M.D. 01/21/2022 9:49 AM
--- NOTE | 2022-01-21 09:54 | History & Physical Report ---
Date of Service January 21, 2022 Assessment & Plan (1) Respiratory arrest before cardiac arrest: (2) Acute respiratory failure with hypoxia and hypercapnia: (3) Unresponsive state: Plan: - Admit to ICU - Pt underwent 10 minutes of CPR and recieved Epinephrine x 3 in the field via IO access in R tibia for concern for PEA, attained ROSC, no post rescusitation hypothermia per cardiology with respiratory arrest prior to cardiac arrest. EKG was initially completed showing sinus tachycardia with RBBB. - ER discussed with cards, at this time no need for cardiac cath, initial troponin is 27.7, BNP 287, cards consultation per ICU, obtain 2D echo - Concern for anoxic brain injury with findings on neurological exam and downtime of ~25 minutes: Pupils are nonreactive, right is 1 size larger than the left, no gag reflex with placement of OG tube, currently not sedated but intubated. - CT chest concerning for pulmonary edema, small right and small moderate left pleural effusion, multilobular beer patchy groundglass and consolidative opacities, left greater than right, mediastinal and hilar lymphadenopathy likely reactive, numerous acute bilateral rib fractures, subtle acute nondisplaced sternal manubrial fracture ET tube in place, no pneumothorax - WBC = 14.7, lactic acid initially 7.9, procal 0.25 - Check MRSA swab - Noted hx of klebsiella pneumonia UTI, pt was being treated with Bactrim x 3 doses since 01/15 - follow urine culture - continue current IV antibiotics with meropenum and daptomycin (4) Normal anion gap metabolic acidosis: Plan: - VBG reviewed with pH 7.06, CO2 > 125, likely due to cardiac arrest - Trend blood gas per ICU - Intubated with attempt to reduce Co2 level - Other electrolytes are WNL - Cr/BUN stable, trend BMP per ICU, strict I/Os, monitor urine output with estrada (5) Pneumonia: (6) Pleural effusion: (7) JOSE (obstructive sleep apnea): (8) COPD (chronic obstructive pulmonary disease): Plan: - Respiratory compromise due all of the above - Initiate antibiotics with meropenum and daptomycin IV due to multiple allergies listed on chart - Maintain intubation - Consult palliative medicine for further goals of care and discussion- family does not want CPR again, but agreeable to continuing all other current treatments (9) Acute on chronic heart failure with preserved ejection fraction (HFpEF): Plan: - Preserved EF from Sep 2021 - pleural effusions and elevated BNP on admission (10) Diabetes mellitus, type II: Plan: - Controlled, last A1C was 5.6 - Glycemic pharmacy consult for insulin dosing, accuchecks Q6H while NPO - Did not get insulin or other home medications today DVT ppx: teds, scds CODE: Conditional IV access: Right tibial IO, one PIV Dispo: Poor prognosis, possible that the patient may not make it out of the hospital. Family discussion and they are aware of the patients poor prognosis. History of Present Illness Chief Complaint: Cardiac and respiratory arrest Primary Care Provider: Bairon Owens MD This is a 71 yo F with PMHx of Chronic diastolic CHF, DM II with polyneuropathy, chronic respiratory failure on 5 L O2 at baseline, JOSE, Crohn's disease, morbid obesity BMI of 47, hypothyroidism, depression and anxiety, and essentially bedbound who presented to the ER today after cardiac arrest. Other medical problems are listed below. Patient has been not quite herself for at least 4 days per her , Ed who provides the history at bedside. His son and daughter are also present. Approximately 4 days ago the patient became more disoriented and was slightly confused, had a fever of 102.2, lethargy, complaining of dysuria as well as issues with shortness of breath whenever she was turned to the side. He had needed to turn O2 from 5 to 8 L intermittently over the past few days due to shortness of breath. Pt also used nebulizer more often in past 2 days. notes she had been constipated and yesterday had significant moderatly formed stool with 3 BMs throughout the day. [facility] at home nursing went to visit the patient on 01/15 and at that point in time UA was checked, and for presumed urinary tract infection she was started on Bactrim, got total of 3 or 4 doses. Pt did not take any routine medications today. This morning patient awoke and was talking with her like normal. reports she felt worse did not look well and then slumped forward becoming unresponsive. Daughter notes that she had been slurring her words. Ambulance arrived and she was found in severe respiratory distress and then went unresponsive. She received epinephrine x3 via right tibia IO. She was intubated in the field. An EKG initially completed look like sinus tachycardia with RBBB, initially at heart rate 140 but then repeat EKG showed slower heart rate. Per ER note, estimated downtime was about 10 minutes prior to EMS ar [facility], total time down is approximately 25 minutes. A blood glucose test was conducted in the field and was 222. In the ER patient is unresponsive, intubated, OG tube was placed without sedation due to neurological status she did not require it. Allergies Allergy/AdvReac Type Severity Reaction Status Date / Time Insulins Allergy Severe LANTUS/LEVEMIR- Verified 09/16/21 09:46 HIVES/THROAT SWELLING moxifloxacin Allergy Severe HIVES Verified 09/16/21 09:46 nitrofurantoin Allergy Severe HIVES Verified 09/16/21 09:46 paroxetine Allergy Severe HIVES Verified 09/16/21 09:46 Quinolones Allergy Severe AVELOX & Verified 09/16/21 09:46 LEVAQUIN-HIVES amitriptyline Allergy Intermediate Sweats and Verified 09/16/21 09:46 itching buspirone Allergy Intermediate HIVES Verified 09/16/21 09:46 cephalexin Allergy Intermediate Hives Verified 09/16/21 09:46 citalopram Allergy Intermediate HIVES-RASH Verified 09/16/21 09:46 escitalopram Allergy Intermediate HIVES-RASH Verified 09/16/21 09:46 levofloxacin Allergy Intermediate Hives Verified 09/16/21 09:46 methadone Allergy Intermediate HIVES Verified 09/16/21 09:46 Penicillins Allergy Intermediate RASH,HIVES Verified 09/16/21 09:46 Serotonin 5HT-3 Antagonists Allergy Intermediate MIGRAINES Verified 09/16/21 09:46 TO SSRIs trazodone Allergy Intermediate BLOODY Verified 09/16/21 09:46 NOSE, HEADACHES,HIVES vancomycin Allergy Intermediate HIVES Verified 09/16/21 09:46 prednisone Allergy Mild CHEST Verified 09/16/21 09:46 TIGHTNESS carbamazepine Allergy Unknown HIVES-RASH- Verified 09/16/21 09:46 ITCHINESS cefepime Allergy Unknown face & arm Verified 09/16/21 09:46 redness/itching after 2nd or 3rd dose cefepime ceftriaxone Allergy Unknown Received Verified 09/16/21 09:46 in MTU (but needed benadryl for course of therapy Cipro Allergy Unknown ABD PAINS Verified 09/08/17 09:10 sertraline Allergy Unknown UNKNOWN Verified 09/16/21 09:46 sitagliptin Allergy Unknown HIVES Verified 09/16/21 09:46 azithromycin Allergy Hives Verified 09/16/21 09:46 Cephalosporins Allergy Hives Verified 09/16/21 09:46 [facility] Allergy Unknown Verified 09/16/21 09:46 fluoxetine AdvReac Severe ANAPHYLAXIS Verified 09/16/21 09:46 Tetracyclines AdvReac Severe HIVES Verified 09/16/21 09:46 Sulfa (Sulfonamide AdvReac Intermediate MIGRAINES Verified 09/16/21 09:46 Antibiotics) fexofenadine AdvReac Mild GI SYMPTOMS Verified 09/16/21 09:46 tizanidine AdvReac Mild ITCHING-HIV Verified 09/16/21 09:46 ES ciprofloxacin AdvReac Unknown ABD PAINS Verified 09/16/21 09:46 gentamicin AdvReac Unknown UNKNOWN Verified 09/16/21 09:46 lorazepam AdvReac Unknown Verified 09/16/21 09:46 blood Allergy Severe Anaphylaxis Uncoded 09/16/21 09:46 Home Medications Medication Instructions Recorded Confirmed Type levothyroxine 100 mcg tablet 100 mcg PO DAILYBB 10/24/19 01/21/22 History montelukast 10 mg tablet 10 mg PO HS 10/24/19 01/21/22 History simvastatin 20 mg tablet 20 mg PO HS 10/24/19 01/21/22 History sumatriptan succinate 100 mg tablet 100 mg PO UD PRN Migraine Headache 10/24/19 01/21/22 History albuterol sulfate 2.5 mg/3 mL 2.5 mg continuous nebulization Q6H 08/11/20 01/21/22 History (0.083 %) solution for nebulization PRN Shortness Of Breath Or Wheezing duloxetine 60 mg capsule,delayed 120 mg PO DAILY 08/11/20 01/21/22 History release empagliflozin 25 mg tablet 25 mg PO QAM 08/11/20 01/21/22 History (Jardiance) folic acid 1 mg tablet 1 mg PO DAILY 08/11/20 01/21/22 History insulin degludec 200 unit/mL (3 45 unit subcut BID 08/11/20 01/21/22 History mL) subcutaneous pen (Tresiba FlexTouch U-200 insulin) insulin regular human 100 unit/mL 30 unit subcut .LUNCH 08/11/20 01/21/22 History injection solution (Novolin R Regular U-100 Insulin) insulin regular human 100 unit/mL 40 unit subcut .EVENING MEAL 08/11/20 01/21/22 History injection solution (Novolin R Regular U-100 Insulin) insulin regular human 100 unit/mL 70 unit subcut .BREAKFAST 08/11/20 01/21/22 History injection solution (Novolin R Regular U-100 Insulin) ketoconazole 2 % topical cream 1 applic topical BID 08/11/20 01/21/22 History levocetirizine 5 mg tablet 5 mg PO HS PRN Allergy Symptoms 08/11/20 01/21/22 History metformin 500 mg tablet,extended 2,000 mg PO DAILY 08/11/20 01/21/22 History release 24 hr mirtazapine 45 mg tablet 45 mg PO HS 08/11/20 01/21/22 History metoprolol tartrate 25 mg tablet 25 mg PO BID #60 tabs 08/18/20 01/21/22 Rx cyanocobalamin (vitamin B-12) 1,000 mcg PO DAILY 09/16/20 01/21/22 History 1,000 mcg tablet pregabalin 100 mg capsule 150 mg PO TID 09/16/20 01/21/22 History aspirin 81 mg tablet,delayed 81 mg PO DAILY 09/16/21 01/21/22 History release docusate sodium 100 mg capsule 100 mg PO BID 09/16/21 01/21/22 History (Colace) pantoprazole 40 mg tablet,delayed 40 mg PO DAILY 09/16/21 01/21/22 History release glycopyrrolate 1 mg tablet 1 mg PO TID 01/21/22 01/21/22 History meloxicam 15 mg tablet 15 mg PO QAM 01/21/22 01/21/22 History ursodiol 300 mg capsule 300 mg PO BID 01/21/22 01/21/22 History Past Med/Surg History Medical History Acute on chronic respiratory failure with hypoxia and hypercapnia Cerebrovascular disease "history left thalamic stroke" CHF (congestive heart failure) Chronic hypercapnic respiratory failure Chronic pain disorder (01/24/14) COPD (chronic obstructive pulmonary disease) Cough with hemoptysis CVA (cerebral vascular accident) hx of L thalamus CVA Diabetes mellitus, type II Dyslipidemia Encephalopathy acute HLD (hyperlipidemia) Hypertension Hypertension Hypertrophic cardiomyopathy Hypothyroidism Metabolic encephalopathy Morbid obesity Morbid obesity Obesity hypoventilation syndrome JOSE (obstructive sleep apnea) Recurrent UTI Respiratory acidosis Surgical History H/O partial nephrectomy History of tonsillectomy Hx of nasal septoplasty S/P dilatation and curettage Status post tonsillectomy Family History Father Coronary heart disease Mother Diabetes Social History Smoking Status: Never smoker Second Hand Exposure: No; Hx Alcohol Use: No Hx Substance Use: No Preferred Language: [place] Communication Ability: Effective Grease Maker Required: No Beliefs That Will Affect Care: Spiritual marital status: Current Living Situation: Spouse Current Living Situation Comment: living at home with How many Children do You have: 2 Other Information That Helps Us Care for You: No Feels Safe at Home: Yes Safety Concerns: Feels Safe At This Time Assistive Devices: BiPap, Denture - Upper and Mechanical Lift Review of Systems Review of Systems: Unobtainable due to cognitive status and Unobtainable due to endotracheal tube Physical Exam Physical Exam: General: Intubated, orogastric tube in place, nonresponsive to verbal stimuli, not sedated, morbidly obese with BMI of 46.9, unable to Arms or legs. Head: Normocephalic, atraumatic ENT: Pupils are fixed, right pupil is 1 size larger than the left, nonresponsive to light, no pharyngeal exudate, mucous membranes slightly dry Chest: Intubated, coarse breath sounds throughout anterior rojas. Cardiac: Regular rate and rhythm, no murmur, no JVD, normal peripheral pulses, good capillary refill Abdominal: NABS x 4 quadrants, obese, soft, nondistended, nontender to palpation, no rebound or guarding Extremities: Right tibia with IO in place, no ecchymosis or erythema, does not move limbs Psych: Unable to assess due to cognitive status Neuro: Nonresponsive, pupils as above, does not follow commands, not sedated no gag reflex, + upward toe with babinski reflex in the left foot, not the right. No patellar or achilles reflex on the left or right. Present + brachioradialis reflex on the Right. strength unable to be assessed, bedbound at baseline. Results & Data Results & Data ([facility]) Vital Signs (Past 12 Hours) Vital Signs Temp Pulse Pulse Resp BP BP Pulse Ox 01/21/22 09:41 67 103/57 L 100 01/21/22 09:30 69 23 111/53 L 99 01/21/22 09:15 74 28 H 98 01/21/22 09:14 69 18 116/53 L 100 01/21/22 08:39 01/21/22 09:00 36.4 C L 71 18 138/47 L 97 01/21/22 09:09 52 L 97 O2 Del Method FiO2 01/21/22 09:41 Mechanical Vent 01/21/22 09:30 Mechanical Vent 01/21/22 09:15 100 01/21/22 09:14 Room Air 01/21/22 08:39 Mechanical Vent 01/21/22 09:00 Mechanical Vent 01/21/22 09:09 Mechanical Vent Laboratory Results 01/21/22 09:32 Aerobic Blood Culture - Pending Blood Anaerobic Blood Culture - Pending 01/21/22 08:50 Urine Culture - Pending Urine,Clean Catch 01/21/22 08:48 Aerobic Blood Culture - Pending Blood Anaerobic Blood Culture - Pending 01/21/22 01/21/22 01/21/22 09:12 08:50 08:47 WBC RBC Hgb Hct MCV MCH MCHC RDW Std Deviation RDW Coeff of Duy Plt Count MPV Immature Gran % (Auto) Neut % (Auto) Lymph % (Auto) Zapata % (Auto) Eos % (Auto) Baso % (Auto) Neut # (Auto) Lymph # (Auto) Zapata # (Auto) Eos # (Auto) Baso # (Auto) Immature Gran # (Auto) Absolute Nucleated RBC Nucleated RBC % (auto) PT INR APTT PTT Ratio VBG pH VBG pCO2 VBG pO2 VBG HCO3 VBG O2 Saturation VBG Base Excess Sodium Potassium Chloride Carbon Dioxide Anion Gap BUN Creatinine Est Cr Clr Drug Dosing Est GFR ( Amer) Est GFR (Non-Af Amer) BUN/Creatinine Ratio Glucose Lactate Calcium Magnesium Total Bilirubin Direct Bilirubin AST ALT Alkaline Phosphatase Troponin I High Sens B-Natriuretic Peptide 287 H Total Protein Albumin Procalcitonin Urine Color Yellow Urine Appearance Clear Urine pH 5.5 Ur Specific Witter 1.020 Urine Protein 1+ H Urine Glucose (UA) 3+ H Urine Ketones Negative Urine Blood Negative Urine Nitrite Negative Urine Bilirubin Negative Urine Urobilinogen Negative Ur Leukocyte Esterase Negative Urine WBC (Auto) 1-5 Urine RBC (Auto) 0-4 U Hyaline Cast (Auto) 1-5 U Epithel Cells (Auto) >30 H Urine Bacteria (Auto) 1+ H Ur Renal Epithelial Cell Not Reportable Urine Yeast Present A SARS-CoV-2 (PCR) NEGATIVE Influenza Type A (PCR) Negative Influenza Type B (PCR) Negative RSV (RT-PCR) Negative Blood Type Antibody Screen 01/21/22 01/21/22 01/21/22 08:47 08:47 08:47 WBC RBC Hgb Hct MCV MCH MCHC RDW Std Deviation RDW Coeff of Duy Plt Count MPV Immature Gran % (Auto) Neut % (Auto) Lymph % (Auto) Zapata % (Auto) Eos % (Auto) Baso % (Auto) Neut # (Auto) Lymph # (Auto) Zapata # (Auto) Eos # (Auto) Baso # (Auto) Immature Gran # (Auto) Absolute Nucleated RBC Nucleated RBC % (auto) PT INR APTT PTT Ratio VBG pH 7.06 L VBG pCO2 > 125 H VBG pO2 48 VBG HCO3 36 VBG O2 Saturation 71.5 VBG Base Excess 2.6 Sodium Potassium Chloride Carbon Dioxide Anion Gap BUN Creatinine Est Cr Clr Drug Dosing Est GFR ( Amer) Est GFR (Non-Af Amer) BUN/Creatinine Ratio Glucose Lactate 7.9 H* Calcium Magnesium Total Bilirubin Direct Bilirubin AST ALT Alkaline Phosphatase Troponin I High Sens B-Natriuretic Peptide Total Protein Albumin Procalcitonin 0.25 Urine Color Urine Appearance Urine pH Ur Specific Witter Urine Protein Urine Glucose (UA) Urine Ketones Urine Blood Urine Nitrite Urine Bilirubin Urine Urobilinogen Ur Leukocyte Esterase Urine WBC (Auto) Urine RBC (Auto) U Hyaline Cast (Auto) U Epithel Cells (Auto) Urine Bacteria (Auto) Ur Renal Epithelial Cell Urine Yeast SARS-CoV-2 (PCR) Influenza Type A (PCR) Influenza Type B (PCR) RSV (RT-PCR) Blood Type Antibody Screen 01/21/22 01/21/22 01/21/22 08:47 08:47 08:47 WBC 14.79 H RBC 4.10 Hgb 11.7 L Hct 40.6 MCV 99.0 MCH 28.5 MCHC 28.8 L RDW Std Deviation 53.4 H RDW Coeff of Duy 14.5 Plt Count 139 MPV 12.5 H Immature Gran % (Auto) 5.0 Neut % (Auto) 78.6 Lymph % (Auto) 11.7 Zapata % (Auto) 3.7 Eos % (Auto) 0.5 Baso % (Auto) 0.5 Neut # (Auto) 11.63 H Lymph # (Auto) 1.73 Zapata # (Auto) 0.54 Eos # (Auto) 0.07 Baso # (Auto) 0.08 Immature Gran # (Auto) 0.74 H Absolute Nucleated RBC 0.02 H Nucleated RBC % (auto) 0.1 PT 11.5 INR 1.1 APTT 28.2 PTT Ratio 1.0 VBG pH VBG pCO2 VBG pO2 VBG HCO3 VBG O2 Saturation VBG Base Excess Sodium 138 Potassium 5.0 Chloride 94 L Carbon Dioxide 35 H Anion Gap 9 BUN 21 Creatinine 0.95 Est Cr Clr Drug Dosing 74.6 Est GFR ( Amer) 69.4 Est GFR (Non-Af Amer) 59.8 BUN/Creatinine Ratio 22.1 H Glucose 210 H Lactate Calcium 9.0 Magnesium 2.1 Total Bilirubin 0.5 Direct Bilirubin 0.2 AST 13 ALT 7 Alkaline Phosphatase 80 Troponin I High Sens 27.7 H B-Natriuretic Peptide Total Protein 6.4 Albumin 3.6 Procalcitonin Urine Color Urine Appearance Urine pH Ur Specific Witter Urine Protein Urine Glucose (UA) Urine Ketones Urine Blood Urine Nitrite Urine Bilirubin Urine Urobilinogen Ur Leukocyte Esterase Urine WBC (Auto) Urine RBC (Auto) U Hyaline Cast (Auto) U Epithel Cells (Auto) Urine Bacteria (Auto) Ur Renal Epithelial Cell Urine Yeast SARS-CoV-2 (PCR) Influenza Type A (PCR) Influenza Type B (PCR) RSV (RT-PCR) Blood Type Antibody Screen 01/21/22 08:47 WBC RBC Hgb Hct MCV MCH MCHC RDW Std Deviation RDW Coeff of Duy Plt Count MPV Immature Gran % (Auto) Neut % (Auto) Lymph % (Auto) Zapata % (Auto) Eos % (Auto) Baso % (Auto) Neut # (Auto) Lymph # (Auto) Zapata # (Auto) Eos # (Auto) Baso # (Auto) Immature Gran # (Auto) Absolute Nucleated RBC Nucleated RBC % (auto) PT INR APTT PTT Ratio VBG pH VBG pCO2 VBG pO2 VBG HCO3 VBG O2 Saturation VBG Base Excess Sodium Potassium Chloride Carbon Dioxide Anion Gap BUN Creatinine Est Cr Clr Drug Dosing Est GFR ( Amer) Est GFR (Non-Af Amer) BUN/Creatinine Ratio Glucose Lactate Calcium Magnesium Total Bilirubin Direct Bilirubin AST ALT Alkaline Phosphatase Troponin I High Sens B-Natriuretic Peptide Total Protein Albumin Procalcitonin Urine Color Urine Appearance Urine pH Ur Specific Witter Urine Protein Urine Glucose (UA) Urine Ketones Urine Blood Urine Nitrite Urine Bilirubin Urine Urobilinogen Ur Leukocyte Esterase Urine WBC (Auto) Urine RBC (Auto) U Hyaline Cast (Auto) U Epithel Cells (Auto) Urine Bacteria (Auto) Ur Renal Epithelial Cell Urine Yeast SARS-CoV-2 (PCR) Influenza Type A (PCR) Influenza Type B (PCR) RSV (RT-PCR) Blood Type O Positive Antibody Screen NEGATIVE Diagnostic Findings Chest X-Ray 01/21/22 08:39 SINGLE VIEW CHEST CLINICAL HISTORY: Sepsis. Status post cardiac arrest. Respiratory failure. FINDINGS: An AP, portable, upright chest radiograph is compared to study dated 09/25/2021 and correlated with chest CT performed the same day 01/21/2022. An endotracheal tube has been placed. The tip projects approximately 3.5 cm above the markel. An enteric tube has been placed. The tip projects below the diaphragm over the stomach. The heart is enlarged. There is pulmonary vascular congestion. Bilateral airspace opacities are noted. There are layering pleural effusions with dependent consolidation. No pneumothorax is seen. The skeletal structures are osteopenic. Anterior rib fractures seen by CT are not apparent on x-ray. A benign-appearing chondroid lesion is again seen in the right proximal humerus. IMPRESSION: 1. Endotracheal and enteric tube placement as above. 2. Cardiomegaly with evidence of congestive failure. 3. Bilateral airspace opacities could represent pulmonary edema and/or an infectious/inflammatory pneumonitis. Clinical correlation will be required. 4. Bilateral pleural effusions with dependent consolidation. 5. Anterior rib fractures seen by CT are not apparent on x-ray. ACT 112: Negative or not required by law. Electronically signed by: Luis Meraz M.D. 01/21/2022 9:[address] 01/21/22 08:46 CT SCAN OF THE BRAIN WITHOUT IV CONTRAST CLINICAL HISTORY: Status post cardiac arrest. COMPARISON STUDY: CT of the brain dated 09/24/2021. TECHNIQUE: Unenhanced axial CT scan of the brain is performed from the vertex to the skull base. A dose lowering technique was utilized adhering to the principles of ALARA. FINDINGS: Brain parenchyma: There is age-related involutional change noting mild subcortical and periventricular microangiopathic disease. There is no hemorrhage, mass effect, or evidence of acute territorial ischemia by CT criteria. Ramires-white matter differentiation is preserved. No extra-axial fluid collection is seen. Ventricles, sulci, cisterns: Prominent secondary to involutional change. Intracranial vasculature: There is atherosclerotic calcification of the cavernous carotid arteries. Calvarium: Unremarkable. Sinuses and mastoids: The visualized paranasal sinuses are clear. There is a large right mastoid effusion, which is similar to previous. The left mastoid air cells are well pneumatized. Orbits: The bony orbits are grossly intact. IMPRESSION: There is no hemorrhage, mass effect, or evidence of acute territorial ischemia by CT criteria. ACT 112: Negative or not required by law. Electronically signed by: Luis Meraz M.D. 01/21/2022 9:[address] 01/21/22 08:58 CT chest diagnostic wo con CT DOSE: 1527.68 mGy.cm CLINICAL HISTORY: 71 years-old Female with s/p cardiac arrest. Acute cardiac arrest TECHNIQUE: Multiaxial CT images of the chest were performed without contrast. A dose lowering technique was utilized adhering to the principles of ALARA. COMPARISON: Chest radiograph of same day, CTA chest 08/11/2020 FINDINGS: Findings are suspicious for an acute nondisplaced sternal manubrial fracture. Numerous acute bilateral post resuscitation rib fractures are noted bilaterally. This includes fractures of the anterior right first through seventh and left anterior and lateral aspects of the second through sixth ribs. Several of the ribs are fractured in at least 2 places on the left. No vertebral body fracture identified. Endotracheal tube overlies the midline, 2.8 cm superior to the markel. Enteric tube courses into the stomach with distal tip outside the [id number]. Cardiomegaly with coronary arterial calcifications. Dilated pulmonary artery measuring 3.5 cm suggestive of pulmonary arterial hypertension. Subcentimeter thyroid nodules. Mediastinal and hilar adenopathy includes a 1.7 cm right pretracheal lymph node. Small right with small moderate left pleural effusions. Intralobular septal thickening with intermixed groundglass and consolidative opa cities are noted within a multilobar distribution, left greater than right. Dense dependent bibasilar predominant consolidation. Bibasilar mucous plugging/opacification. Hepatosplenomegaly with upper abdominal ascites and cirrhosis. Mild generalized body wall edema. IMPRESSION: 1. Cardiomegaly with pulmonary edema, small right and small moderate left pleural effusions. 2. Dependent bibasilar consolidation, left greater than right suggestive of aspiration. Additional multilobar patchy groundglass and consolidative opacities , left greater than right may also be related to the aspiration or represent a nonspecific pneumonia. 3. Mediastinal and hilar lymphadenopathy, likely reactive. 4. Numerous acute bilateral rib fractures as described above meeting diagnostic criteria for flail chest. Equivocal subtle acute nondisplaced sternal manubrial fracture. 5. Satisfactory positioning of the endotracheal and enteric tubes. No pneumothorax. ACT 112: Negative or not required by law. Electronically signed by: Dioni Turpin M.D. 01/21/2022 9:49 AM Code Status & VTE Plan Code Status Discussion was held with the family at bedside, they are in agreement with current treatment regimen, would not want further CPR. Patient is currently intubated which they would like to maintain at this time. Supervising Physician Co-Signing Physician Notes I have seen and examined the patient and have discussed the case with the provider above. I agree with the assessment and plan as stated with the following exceptions. 71 yo diabetic bedbound female with morbid obesity presents to the ED via EMS after cardiac arrest in the field s/p CPR and epinephrine with intubation. She is not sedated and is not responding. Per who is at bedside, she had been requiring increased amounts of oxygen over the past few days and had some intermittent confusion. This morning she woke up and had no complaints but suddenly developed loss of consciousness and respiratory distress as noted above. She remains in critical condition with a poor prognosis. On physical exam she is intubated and unresponsive to verbal or physical stimulus. She is tachypneic . Eyes are open and intermittently open and close. Pupils are asymmetric with left smaller than right and there is minimal but present reaction to light. Lungs are clear to auscultation, however, exam is limited by patients body habitus and intubated status. Cardiac auscultation reveals regular rate and rhythm. There is no peripheral edema. Neuro test is limitedshe is unresponsive with extremities flaccid but able to go through a passive range of motion. Was able to obtain BR reflex 2/4 on the right side but not on the left. Could not elicit knee reflex or achilles reflex on either side. Babinski positive with abnormal upgoing toes on the right, unresponsive on the left. Workup today reveals a head CT with no evidence of hemorrhage, mass effect, or evidence of ischemia. Chest CT reveals pulmonary edema and multifocal pneumonia with multiple bilateral rib fractures. Mild leukocytosis of 15K with a left shift. There is an elevated lactate of 7.9 without an anion gap present. There is no coagulopathy and she is on Eliquis. She is acidotic with a pH 7.06 with metabolic compensation with bicarb of 35. Renal function is normal. Glucose is elevated and troponin is elevated to 27.7. UA is contaminated. Overall this is a critically ill diabetic female presenting after cardiac arrest with suspected anoxic brain injury given prehospital events. She remains off sedation and is not responding in a meaningful way. Will continue neurologic assessment in the ICU while treating underlying causes as able. EEG pending. MRI pending. Broad spectrum antibiotics were started in the ER as coverage for pneumonia. Multiple severe allergies noted and she has a history of transfusion reaction requiring epinephrine in the past. Targeted temperature management not indicated at this time. Cont ICU level care. DO Gael
[2022-01-21] MEDS ORDERED: MEROPENEM 500 MG in SYRINGE 0 ML IV STA (09:58)
[2022-01-21] MEDS ORDERED: DAPTOmycin 525 MG in SYRINGE 0 ML IV ONE (10:00)
--- NOTE | 2022-01-21 10:03 | Critical Care Consultation ---
Date of Consultation January 21, 2022 Assessment & Plan (1) Respiratory arrest before cardiac arrest: Reason Critically Ill: 71-year-old female presented to the emergency department as a respiratory arrest perceptively cardiac risk with successful ROSC in the field requiring ongoing cardiac, pulmonary, neurologic evaluations in the post resuscitation patient. NEURO - * Unresponsive state: * Concerns for anoxic brain injury s/p prolonged down time of ~25 minutes (10 min unresponsive prior to EMS arrival, 14 min resuscitation) * Not requiring sedation. Not breathing over the ventilator. No gag reflex. Pupils fixed and dilated. * Initial CT w/o significant findings. * Will add EEG. * Will attempt to correct underlying hypercapnia as this certainly could be causing a degree of metabolic encephalopathy. Will monitor for change in mental status with correction of CO2. * Likely poor prognosis. CARDIAC/VASCULAR - * Cardiac arrest precipitated by respiratory arrest: * ~14 min of CPR w/ 3 rounds of Epi prior to return of ROSC. * No profound EKG changes noted. * Not requiring pressors currently - can add if needed. * Will hold on home antihypertensives. * Will order Echo to evaluate post arrest function * As this was a respiratory arrest precipitating cardiac arrest and with extended down time, will not require TTM. Deferred by cardiology as well. Will keep patient euthermic. * Monitor on telemetry. RESPIRATORY - * Respiratory Arrest: * Of uncertain etiology at this point. * Multiple pulmonary baseline conditions likely contributing. * Initially w/ profound respiratory acidosis - likely 2/2 cardiac arrest. * Changes made to ventilator settings to blow off excess CO2. * Will repeat ABG upon arrival to the ICU. * Aspiration Pneumonitis: * As described on CT chest. * Agree w/ antibiotic coverage in the critically ill patient. GI/NUTRITION - * OGT in place. * Prophylaxis: Protonix RENAL/LYTES - * No significant electrolyte derangements currently. * Will monitor urine output suggestive of renal injury s/p arrest. - * Ferrell in place - Strict I&Os. ENDO - * DMII * BSGs per unit protocol. ISS --> gtt per unit policy. HEME - * Stable H&H currently * Type & Screen added in the patient w/ known h/o multiple antibodies and transfusion reactions. ID - * Aspiration Pneumonitis: * Meropenem for now given multiple drug allergies. * Will check nasal MRSA upon admission. Can likely d/c Dapto, especially if our concern for infection is pulmonary in etiology. LINES/IV ACCESS - * PIVs x1 * Ferrell DVT PROPHYLAXIS - * SCDs I have personally spent 65 minutes of critical care time in the direct management of this patient. This is a life/limb threatening event. This includes time spent evaluating patient, direct bedside care, chart review, placing orders, interpretation of diagnostic studies, discussion with consultants, patient, and family members, as well as other required patient management activities. This time is exclusive of all separately billable procedures, and teaching time and separate from and in addition to any other critical care service time. Thank you for allowing us to participate in the care of this patient. Please refer to my attending physician's documentation for any further recommendations. (2) Acute respiratory failure with hypoxia and hypercapnia: (3) CHF (congestive heart failure): (4) JOSE (obstructive sleep apnea): (5) COPD (chronic obstructive pulmonary disease): (6) Diabetes mellitus, type II: History of Present Illness Reason for Consultation: Respiratory Arrest/Cardiac Arrest History of Present Illness Patient is a 71-year-old female with a significant past medical history of morbid obesity, recurrent UTIs, obstructive sleep apnea, COPD, obesity hypoventilation syndrome, chronic respiratory failure on oxygen at home, hypertension, hyperlipidemia, CHF, hypertrophic cardiomyopathy, paroxysmal SVT, and history of CVA. Patient has reportedly had increasing symptoms of shortness of breath of the last day or so. This morning, while her was bathing her and getting her close on, the patient had worsening shortness of breath and eventually became unresponsive. EMS was contacted. No chest compressions were instituted prior to EMS arrival. Patient was found to be in cardiac arrest. She received several rounds of high-quality CPR and 3 doses of epinephrine with eventual ROSC. Initially, the patient was tachycardic upon ROSC, however heart rate has improved. She was intubated in the field. She is not requiring sedation. Upon evaluation in the ER, the patient is intubated and not requiring sedation. Unable to obtain historical formation at this point. Allergies Allergy/AdvReac Type Severity Reaction Status Date / Time Insulins Allergy Severe LANTUS/LEVEMIR- Verified 09/16/21 09:46 HIVES/THROAT SWELLING moxifloxacin Allergy Severe HIVES Verified 09/16/21 09:46 nitrofurantoin Allergy Severe HIVES Verified 09/16/21 09:46 paroxetine Allergy Severe HIVES Verified 09/16/21 09:46 Quinolones Allergy Severe AVELOX & Verified 09/16/21 09:46 LEVAQUIN-HIVES amitriptyline Allergy Intermediate Sweats and Verified 09/16/21 09:46 itching buspirone Allergy Intermediate HIVES Verified 09/16/21 09:46 cephalexin Allergy Intermediate Hives Verified 09/16/21 09:46 citalopram Allergy Intermediate HIVES-RASH Verified 09/16/21 09:46 escitalopram Allergy Intermediate HIVES-RASH Verified 09/16/21 09:46 levofloxacin Allergy Intermediate Hives Verified 09/16/21 09:46 methadone Allergy Intermediate HIVES Verified 09/16/21 09:46 Penicillins Allergy Intermediate RASH,HIVES Verified 09/16/21 09:46 Serotonin 5HT-3 Antagonists Allergy Intermediate MIGRAINES Verified 09/16/21 09:46 TO SSRIs trazodone Allergy Intermediate BLOODY Verified 09/16/21 09:46 NOSE, HEADACHES,HIVES vancomycin Allergy Intermediate HIVES Verified 09/16/21 09:46 prednisone Allergy Mild CHEST Verified 09/16/21 09:46 TIGHTNESS carbamazepine Allergy Unknown HIVES-RASH- Verified 09/16/21 09:46 ITCHINESS cefepime Allergy Unknown face & arm Verified 09/16/21 09:46 redness/itching after 2nd or 3rd dose cefepime ceftriaxone Allergy Unknown Received Verified 09/16/21 09:46 in MTU (but needed benadryl for course of therapy Cipro Allergy Unknown ABD PAINS Verified 09/08/17 09:10 sertraline Allergy Unknown UNKNOWN Verified 09/16/21 09:46 sitagliptin Allergy Unknown HIVES Verified 09/16/21 09:46 azithromycin Allergy Hives Verified 09/16/21 09:46 Cephalosporins Allergy Hives Verified 09/16/21 09:46 metformin [From Janumet] Allergy Unknown Verified 09/16/21 09:46 fluoxetine AdvReac Severe ANAPHYLAXIS Verified 09/16/21 09:46 Tetracyclines AdvReac Severe HIVES Verified 09/16/21 09:46 Sulfa (Sulfonamide AdvReac Intermediate MIGRAINES Verified 09/16/21 09:46 Antibiotics) fexofenadine AdvReac Mild GI SYMPTOMS Verified 09/16/21 09:46 tizanidine AdvReac Mild ITCHING-HIV Verified 09/16/21 09:46 ES ciprofloxacin AdvReac Unknown ABD PAINS Verified 09/16/21 09:46 gentamicin AdvReac Unknown UNKNOWN Verified 09/16/21 09:46 lorazepam AdvReac Unknown Verified 09/16/21 09:46 blood Allergy Severe Anaphylaxis Uncoded 09/16/21 09:46 Home Medications Medication Instructions Recorded Confirmed Type levothyroxine 100 mcg tablet 100 mcg PO DAILYBB 10/24/19 01/21/22 History montelukast 10 mg tablet 10 mg PO HS 10/24/19 01/21/22 History simvastatin 20 mg tablet 20 mg PO HS 10/24/19 01/21/22 History sumatriptan succinate 100 mg tablet 100 mg PO UD PRN Migraine Headache 10/24/19 01/21/22 History albuterol sulfate 2.5 mg/3 mL 2.5 mg continuous nebulization Q6H 08/11/20 01/21/22 History (0.083 %) solution for nebulization PRN Shortness Of Breath Or Wheezing duloxetine 60 mg capsule,delayed 120 mg PO DAILY 08/11/20 01/21/22 History release empagliflozin 25 mg tablet 25 mg PO QAM 08/11/20 01/21/22 History (Jardiance) folic acid 1 mg tablet 1 mg PO DAILY 08/11/20 01/21/22 History insulin degludec 200 unit/mL (3 45 unit subcut BID 08/11/20 01/21/22 History mL) subcutaneous pen (Tresiba FlexTouch U-200 insulin) insulin regular human 100 unit/mL 30 unit subcut .LUNCH 08/11/20 01/21/22 History injection solution (Novolin R Regular U-100 Insulin) insulin regular human 100 unit/mL 40 unit subcut .EVENING MEAL 08/11/20 01/21/22 History injection solution (Novolin R Regular U-100 Insulin) insulin regular human 100 unit/mL 70 unit subcut .BREAKFAST 08/11/20 01/21/22 History injection solution (Novolin R Regular U-100 Insulin) ketoconazole 2 % topical cream 1 applic topical BID 08/11/20 01/21/22 History levocetirizine 5 mg tablet 5 mg PO HS PRN Allergy Symptoms 08/11/20 01/21/22 History metformin 500 mg tablet,extended 2,000 mg PO DAILY 08/11/20 01/21/22 History release 24 hr mirtazapine 45 mg tablet 45 mg PO HS 08/11/20 01/21/22 History metoprolol tartrate 25 mg tablet 25 mg PO BID #60 tabs 08/18/20 01/21/22 Rx cyanocobalamin (vitamin B-12) 1,000 mcg PO DAILY 09/16/20 01/21/22 History 1,000 mcg tablet pregabalin 100 mg capsule 150 mg PO TID 09/16/20 01/21/22 History aspirin 81 mg tablet,delayed 81 mg PO DAILY 09/16/21 01/21/22 History release docusate sodium 100 mg capsule 100 mg PO BID 09/16/21 01/21/22 History (Colace) pantoprazole 40 mg tablet,delayed 40 mg PO DAILY 09/16/21 01/21/22 History release glycopyrrolate 1 mg tablet 1 mg PO TID 01/21/22 01/21/22 History meloxicam 15 mg tablet 15 mg PO QAM 01/21/22 01/21/22 History ursodiol 300 mg capsule 300 mg PO BID 01/21/22 01/21/22 History Patient History Medical History Acute on chronic respiratory failure with hypoxia and hypercapnia Cerebrovascular disease "history left thalamic stroke" CHF (congestive heart failure) Chronic hypercapnic respiratory failure Chronic pain disorder (01/24/14) COPD (chronic obstructive pulmonary disease) Cough with hemoptysis CVA (cerebral vascular accident) hx of L thalamus CVA Diabetes mellitus, type II Dyslipidemia Encephalopathy acute HLD (hyperlipidemia) Hypertension Hypertension Hypertrophic cardiomyopathy Hypothyroidism Metabolic encephalopathy Morbid obesity Morbid obesity Obesity hypoventilation syndrome JOSE (obstructive sleep apnea) Recurrent UTI Respiratory acidosis Surgical History H/O partial nephrectomy History of tonsillectomy Hx of nasal septoplasty S/P dilatation and curettage Status post tonsillectomy Family History Father Coronary heart disease Mother Diabetes Social History Smoking Status: Never smoker Second Hand Exposure: No; Hx Alcohol Use: No Hx Substance Use: No Preferred Language: Guatemalan Communication Ability: Effective Jail Manager Required: No Beliefs That Will Affect Care: Spiritual marital status: Current Living Situation: Spouse Current Living Situation Comment: living at home with How many Children do You have: 2 Other Information That Helps Us Care for You: No Feels Safe at Home: Yes Safety Concerns: Feels Safe At This Time Assistive Devices: BiPap, Denture - Upper and Mechanical Lift Review of Systems Review of Systems: Unable to obtain secondary to mental status and intubation. Physical Exam Physical Exam: VITAL SIGNS - Vital signs and nursing notes were reviewed. GENERAL - 71-year-old female appearing her stated age who is intubated and sedated. Unresponsive. No gag reflex. No response to painful stimuli. SKIN - Without rashes. HEAD - NC/AT. EYES - Pupils fixed and dilated. EARS - No deformities of external structures noted on gross examination bilaterally. NOSE - Midline and without cyanosis. No epistaxis or purulent drainage noted. MOUTH/OROPHARYNX - ETT/OGT in place. NECK - Supple to palpation. LUNGS - Abrasions noted to the anterior chest 2/2 CPR. Breath sounds distant and coarse throughout. CARDIAC - RRR with S1/S2. No murmur, rubs, or gallops appreciated. ABDOMEN - Abdominal contour obese without pulsations or visible masses. BS hypoactive. EXTREMITIES - No clubbing or peripheral cyanosis. Bilateral pretibial edema present. +3/5 radial and dorsalis pedis pulses palpated throughout. NEUROLOGIC - Unresponsive to painful stimuli. Pupils fixed and dilated. No gag reflex. Not breathing over the ventilator. Not requiring sedation. Results & Data Results & Data ([facility]) Vital Signs (Past 12 Hours) Vital Signs Temp Pulse Pulse Resp BP BP Pulse Ox 01/21/22 09:41 67 103/57 L 100 01/21/22 09:30 69 23 111/53 L 99 01/21/22 09:15 74 28 H 98 01/21/22 09:14 69 18 116/53 L 100 01/21/22 08:39 01/21/22 09:00 36.4 C L 71 18 138/47 L 97 01/21/22 09:09 52 L 97 O2 Del Method FiO2 01/21/22 09:41 Mechanical Vent 12/08/22 09:30 Mechanical Vent 01/21/22 09:15 100 01/21/22 09:14 Room Air 01/21/22 08:39 Mechanical Vent 01/21/22 09:00 Mechanical Vent 01/21/22 09:09 Mechanical Vent Coding Level of Care Code Critical Care 1st 30-74 mins Diagnoses Respiratory arrest before cardiac arrest I46.9; R09.2 Acute respiratory failure with hypoxia and hypercapnia J96.01; J96.02 CHF (congestive heart failure) I50.9 Heart failure chronicity: acute Heart failure type: unspecified JOSE (obstructive sleep apnea) G47.33 COPD (chronic obstructive pulmonary disease) J44.9 Diabetes mellitus, type II E11.9 Time Spent (min) 65 (1) CHF (congestive heart failure) Heart failure chronicity: acute Heart failure type: unspecified Qualified Code(s): I50.9 - Heart failure, unspecified
[2022-01-21 10:04] LABS: Troponin I High Sensitivity 27.7 pg/ml (0-14)
[2022-01-21 10:34] LABS: Influenza A virus by PCR Negative (Neg); Influenza B virus by PCR Negative (Neg); RSV by PCR Negative (Neg); SARS CoV2 RNA(COVID-19) Ceph NEGATIVE (Negative)
[2022-01-21] MEDS ORDERED: DEXTROSE 50% 50 ML SYRINGE IV PRN (11:27)
[2022-01-21] MEDS ORDERED: GLUCAGON FOR INJ 1 MG VIAL SQ PRN (11:27)
[2022-01-21] MEDS ORDERED: PHARMACY GLYCEMIC MGMT CONSULT PRN (11:27)
[2022-01-21] MEDS ORDERED: GLUCOSE 40% GEL 15 GM TUBE PO PRN (11:27)
[2022-01-21 11:51] LABS: iSTAT Allen Test Pass; iSTAT Art Bld Gas pCO2 Correct 39 mmHg (35-46); iSTAT Art Bld Gas pH Corrected 7.549 (7.35-7.45); iSTAT Arterial Blood Gas HCO3 34 meg/L (19-24); iSTAT Arterial Blood Gas pCO2 40 mmHg (35-46); iSTAT Arterial Blood Gas pH 7.54 (7.35-7.45); iSTAT Arterial Blood Gas pO2 51 mmHg (80-95); iSTAT Arterial Blood Gas pO2 C 48; iSTAT Carbon Dioxide 35 mmol/L (24-31); iSTAT FiO2 50 %; iSTAT Hematocrit 35 % (37-47); iSTAT Hemoglobin 11.9 g/dl (12.0-16.0); iSTAT Site L Radial; iSTAT Sodium 135 mmol/L (135-144)
[2022-01-21] MEDS ORDERED: INSULIN ASPART PER UNIT SC SCH (12:00)
[2022-01-21] MEDS ORDERED: fentaNYL citrate 100 MCG/2 ML VIAL IV PRN (12:44)
[2022-01-21] MEDS: MIDAZOLAM HCL 1 MG/ML 2ML VIAL IV PRN ×2 (12:54→15:00)
--- NOTE | 2022-01-21 13:17 | Communication Note ---
Date of Service: January 21, 2022 1245: Family conversation. They wish to proceed with MRI. 1430: Extensive conversation with family at bedside regarding MRI findings, EEG, and Echo. Explained concerns of likely anoxic injury. They are asking for time for decision making. We will reevaluate after they decide how they wish to proceed. 1620: Attempted to reach out to patient's regarding wishes for terminal extubation. No answer. 1640: Reached patient's by phone. Confirmed wishes to withdraw care. He wishes that she be terminally extubated and wants to be notified when she passes. 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 Discussed with RN at bedside. I have personally spent 60 minutes of critical care time in the direct management of this patient. This is a life/limb threatening event. This includes time spent evaluating patient, direct bedside care, chart review, placing orders, interpretation of diagnostic studies, discussion with consultants, patient, and family members, as well as other required patient management activities. This time is exclusive of all separately billable procedures, and teaching time and separate from and in addition to any other critical care service time.
[2022-01-21] MEDS ORDERED: VECURONIUM BROMIDE 10 MG VIAL IV PRN (13:20)
--- NOTE | 2022-01-21 13:31 | Pharmacy Report ---
Pharmacy Glycemic Short Note 2 - Date of Service January 21, 2022 - Glycemic Short BSG Results (Last 24 hours): 01/21/22 01/21/22 08:47 11:10 Glucose 210 H POC Glucose 182 H OUTPATIENT ANTIDIABETIC REGIMEN: * Metformin ER 2000 mg PO daily * Jardiance 25 mg PO daily * Tresiba 45 units SC BID * Regular insulin - 70 units SC w/ breakfast, 30 units SC w/ lunch, 40 units SC w/ dinner * HbA1c = 5.6% (09/17/21) ASSESSMENT: * 71 yo F presented following mxw-in-sbuncgme cardiac arrest. Pharmacy has been consulted to assist with inpatient glycemic management. Well known to pharmacy glycemic service. * Listed allergies to Lantus/Levemir so usually utilize [facility] for inpatient basal needs. Will hold off on any basal for this evening. * Start Novolog based on previous admission data. Will add overnight checks for night one. PLAN FOR INPATIENT GLYCEMIC CONTROL: * Hold outpatient oral diabetes medications * Basal insulin * None * Bolus insulin * NovoLog per scale ACHS or Q6hrs while NPO * Goal Range: Low 110 mg/dL - High 140 mg/dL * Correction Factor: 10 mg/dL/unit * Nutritional / Prandial insulin per carb ratio of 1 unit per 3 grams CHO consumed
--- NOTE | 2022-01-21 13:49 | Electroencephalogram ---
EEG Procedure Note Date of Service January 21, 2022 Start / End Times Start Time: 1206 End Time: 1226 Referring Physician Mika Reynoso PA-C History 71-year-old with cardiopulmonary arrest ( greater than 20 minutes before EMS arrived by history). Home Medication List Medication Instructions Recorded Confirmed Type levothyroxine 100 mcg tablet 100 mcg PO DAILYBB 10/24/19 01/21/22 History montelukast 10 mg tablet 10 mg PO HS 10/24/19 01/21/22 History simvastatin 20 mg tablet 20 mg PO HS 10/24/19 01/21/22 History sumatriptan succinate 100 mg tablet 100 mg PO UD PRN Migraine Headache 10/24/19 01/21/22 History albuterol sulfate 2.5 mg/3 mL 2.5 mg continuous nebulization Q6H 08/11/20 01/21/22 History (0.083 %) solution for nebulization PRN Shortness Of Breath Or Wheezing duloxetine 60 mg capsule,delayed 120 mg PO DAILY 08/11/20 01/21/22 History release empagliflozin 25 mg tablet 25 mg PO QAM 08/11/20 01/21/22 History (Jardiance) folic acid 1 mg tablet 1 mg PO DAILY 08/11/20 01/21/22 History insulin degludec 200 unit/mL (3 45 unit subcut BID 08/11/20 01/21/22 History mL) subcutaneous pen (Tresiba FlexTouch U-200 insulin) insulin regular human 100 unit/mL 30 unit subcut .LUNCH 08/11/20 01/21/22 History injection solution (Novolin R Regular U-100 Insulin) insulin regular human 100 unit/mL 40 unit subcut .EVENING MEAL 08/11/20 01/21/22 History injection solution (Novolin R Regular U-100 Insulin) insulin regular human 100 unit/mL 70 unit subcut .BREAKFAST 08/11/20 01/21/22 History injection solution (Novolin R Regular U-100 Insulin) ketoconazole 2 % topical cream 1 applic topical BID 08/11/20 01/21/22 History levocetirizine 5 mg tablet 5 mg PO HS PRN Allergy Symptoms 08/11/20 01/21/22 History metformin 500 mg tablet,extended 2,000 mg PO DAILY 08/11/20 01/21/22 History release 24 hr mirtazapine 45 mg tablet 45 mg PO HS 08/11/20 01/21/22 History metoprolol tartrate 25 mg tablet 25 mg PO BID #60 tabs 08/18/20 01/21/22 Rx cyanocobalamin (vitamin B-12) 1,000 mcg PO DAILY 09/16/20 01/21/22 History 1,000 mcg tablet pregabalin 100 mg capsule 150 mg PO TID 09/16/20 01/21/22 History aspirin 81 mg tablet,delayed 81 mg PO DAILY 09/16/21 01/21/22 History release docusate sodium 100 mg capsule 100 mg PO BID 09/16/21 01/21/22 History (Colace) pantoprazole 40 mg tablet,delayed 40 mg PO DAILY 09/16/21 01/21/22 History release glycopyrrolate 1 mg tablet 1 mg PO TID 01/21/22 01/21/22 History meloxicam 15 mg tablet 15 mg PO QAM 01/21/22 01/21/22 History ursodiol 300 mg capsule 300 mg PO BID 01/21/22 01/21/22 History Inpatient Medication List Insulin Aspart (Insulin Aspart Per Unit) 0 units SC Q6 WALDO; Protocol Stop: 02/20/22 11:59 Last Admin: 01/21/22 11:56 Dose: 5 units Documented By: CLAY Co-signed By: CASSIA Midazolam HCl (Midazolam Hcl 1 Mg/Ml 2ml Vial) 2 mg IV Q2H PRN PRN Reason: RASS goal -1 Stop: 02/20/22 12:43 Last Admin: 01/21/22 12:54 Dose: 2 mg Documented By: CLAY Discontinued Medications Epinephrine HCl (Epinephrine Inj 1 Mg/Ml Amp) Confirm Administered Dose 1 mg .ROUTE .STK-MED ONE Stop: 01/21/22 08:54 Last Admin: 01/21/22 11:08 Dose: Not Given Documented By: LUPILLO Sodium Chloride (Nss) 500 mls @ 999 mls/hr IV .Q31M ONE Stop: 01/21/22 10:10 Last Infusion: 01/21/22 10:19 Dose: 0 mls/hr Documented By: Admin: 01/21/22 09:45 Dose: 999 mls/hr Documented By: LUPILLO Daptomycin 525 mg/ Syringe 10.5 mls @ 5.25 mls/min IV ONE ONE; Protocol Stop: 01/21/22 10:01 Last Admin: 01/21/22 10:18 Dose: 5.25 mls/min Documented By: LUPILLO Meropenem 500 mg/ Syringe 10 mls @ 2 mls/min IV NOW STA; Protocol Stop: 01/21/22 10:02 Last Admin: 01/21/22 12:12 Dose: 2 mls/min Documented By: CLAY Description This is a 21 electrode EEG with a single channel dedicated to limited EKG. The electrodes were placed in accordance with the International 10-20 system. Interpretation The predominant background activity consists of a Very low amplitude, very irregular 10-11 hertz activity of up to 10-20 mV in amplitude,seen symmetrically distributed in all head regions. There is no alteration in this very low amplitude background activity with any alerting procedures. There is muscle tension artifact superimposed over the background activity, particularly in the frontotemporal head regions. The most prominent feature of the recording was the presence of very high amplitude spike discharges lasting 1-2 seconds emanating from the left posterior frontal / anterior temporal head regions (F7 and T3) with clinical accompaniment of a myoclonic jerk involving the right face and body. These were very frequently to recorded occurring about once every 20-30 seconds. There was no periodicity to these abnormal discharges and clinical accompaniment. Photic stimulation was performed and elicited no change in the background activity and no other abnormal responses were seen. throughout this recording, no other focal abnormalities or potentially epileptogenic discharges were seen. In summary, this EEG is markedly abnormal and shows very low background activity in general with an irregular 10-11 hertz alpha rhythm seen in someone who is unresponsive post arrest. this is consistent with an "alpha coma" rhythm. In addition there were periodic discharges emanating from the left frontotemporal head region consistent with severe myoclonic jerking. These in theory are potentially epileptogenic. Clinical Correlation This recording shows rhythms, consistent with a clinical history post cardiopulmonary arrest, which are associated with a very poor prognosis clinically. [facility] EEG Procedure Codes Indication for Procedure (1) Respiratory arrest before cardiac arrest: (2) Massive myoclonic jerkings: Neurology Neurology: 42319 EEG include record awake & drowsy
--- NOTE | 2022-01-21 14:37 | Magnetic Resonance Report ---
MRI OF THE BRAIN WITHOUT IV CONTRAST CLINICAL HISTORY: Status post cardiac arrest. Anoxic brain injury. COMPARISON STUDY: CT of the brain dated 01/21/2022. TECHNIQUE: MRI of the brain was performed utilizing various T1 and T2-weighted sequences in the axial , sagittal, and coronal planes. IV contrast was not administered for this examination. FINDINGS: Brain parenchyma: There are numerous foci of restricted diffusion identified typical for acute ischem ia. The largest cortical foci are present on the left at the temporoparietal and parieto-occipital ju nctions. Additional small foci of cortical ischemia are seen within the left frontal, right frontal, left temporal, and left parietal lobes. There are also numerous tiny foci of restricted diffusion pre sent within both cerebellar hemispheres as well as within the left caudate head. There is no hemorrha ge or mass effect. No extra-axial fluid collection is seen. The cerebellar tonsils are normal in conf iguration. There is age-related involutional change noting minimal microangiopathic disease. A chroni c lacunar infarct is noted in the left thalamus. Ventricles, sulci, and cisterns: Prominent secondary to involutional change. Pituitary and sella: Unremarkable. Intracranial vasculature: Normal flow voids are maintained at the skull base. Orbits: The bony orbits are grossly intact. Orbital contents are normal in appearance. Sinuses and mastoids: There is a large right mastoid effusion. The left mastoid air cells are clear. There is trace fluid in the left sphenoid sinus. The remaining paranasal sinuses are clear. Calvarium: Unremarkable. Cervical cord: Partially visualized cervical spinal cord is normal in morphology and signal intensity . IMPRESSION: 1. There are numerous foci of acute to subacute ischemia as above, greatest involving the left hemisp here and the cerebellum. This is consistent with the reported history of an anoxic ischemic event, or could also potentially be seen with an embolic phenomenon. 2. There is no hemorrhage or mass effect. ACT 112: Negative or not required by law. Electronically signed by: Luis Meraz M.D. 01/21/2022 2:35 PM
[2022-01-21] MEDS ORDERED: ONDANSETRON INJ 2 MG/ML 2 ML VIAL IV PRN (16:40)
[2022-01-21] MEDS ORDERED: LORazepam 0.5 MG in SYRINGE 0 ML IV PRN (16:40)
[2022-01-21] MEDS ORDERED: ONDANSETRON 4 MG OD TAB SL PRN (16:40)
[2022-01-21] MEDS ORDERED: LORazepam 0.5 MG TAB PO PRN (16:40)
[2022-01-21] MEDS ORDERED: MoRPHine BOLUS from BAG IV PRN (16:40)
[2022-01-21] MEDS ORDERED: MoRPHine SULFATE 2 MG/ML CARP IV PRN (16:40)
[2022-01-21] MEDS ORDERED: MoRPHine SULF/NSS 250 MG/250 ML BTL IV SCH (16:45)
[2022-01-21] MEDS ORDERED: MoRPHine BOLUS from BAG IV ONE (17:33)
--- NOTE | 2022-01-21 19:42 | Communication Note ---
Date of Service: January 21, 2022 I was notified of the patient ceasing to breathe. On arrival to the bedside she is motionless. She doesn't respond to verbal of physical stimuli. Pupils are fixed and dilated. Skin is cool to touch. There are no breath sounds on auscultation and no heart sounds to auscultation. There is no rise and fall of the chest. Time of was 7:35pm. Contacted baggage handling supervisor RN regarding managing cognitive engineer's case given expiration within 24 hours of admission. Also contacted patient's to notify him of her passing and next steps. He verbalized understanding. Deidre Mayo DO [facility]
--- NOTE | 2022-01-21 19:46 | Discharge Summary ---
Discharge Summary Date of Service January 21, 2022 Notes For Next Care Provider N/A Medication Changes From Visit N/A Admission HPI Per Admitting Provider This is a 71 yo F with PMHx of Chronic diastolic CHF, DM II with polyneuropathy, chronic respiratory failure on 5 L O2 at baseline, JOSE, Crohn's disease, morbid obesity BMI of 47, hypothyroidism, depression and anxiety, and essentially bedbound who presented to the ER today after cardiac arrest. Other medical problems are listed below. Patient has been not quite herself for at least 4 days per her , Ed who provides the history at bedside. His son and daughter are also present. Approximately 4 days ago the patient became more disoriented and was slightly confused, had a fever of 102.2, lethargy, complaining of dysuria as well as issues with shortness of breath whenever she was turned to the side. He had needed to turn O2 from 5 to 8 L intermittently over the past few days due to sh ortness of breath. Pt also used nebulizer more often in past 2 days. notes she had been constipated and yesterday had significant moderatly formed stool with 3 BMs throughout the day. [facility] went to visit the patient on 01/15 and at that point in time UA was checked, and for presumed urinary tract infection she was started on Bactrim, got total of 3 or 4 doses. Pt did not take any routine medications today. This morning patient awoke and was talking with her like normal. reports she felt worse did not look well and then slumped forward becoming unresponsive. Daughter notes that she had been slurring her words. Ambulance arrived and she was found in severe respiratory distress and then went unresponsive. She received epinephrine x3 via right tibia IO. She was intubated in the field. An EKG initially completed look like sinus tachycardia with RBBB, initially at heart rate 140 but then repeat EKG showed slower heart rate. Per ER note, estimated downtime was about 10 minutes prior to EMS arrival, total time down is approximately 25 minutes. A blood glucose test was conducted in the field and was 222. In the ER patient is unresponsive, intubated, OG tube was placed without sedation due to neurological status she did not require it. Admission Exam Per Admitting Provider General: Intubated, orogastric tube in place, nonresponsive to verbal stimuli, not sedated, morbidly obese with BMI of 46.9, unable to Arms or legs. Head: Normocephalic, atraumatic ENT: Pupils are fixed, right pupil is 1 size larger than the left, nonresponsive to light, no pharyngeal exudate, mucous membranes slightly dry Chest: Intubated, coarse breath sounds throughout anterior rojas. Cardiac: Regular rate and rhythm, no murmur, no JVD, normal peripheral pulses, good capillary refill Abdominal: NABS x 4 quadrants, obese, soft, nondistended, nontender to palpation, no rebound or guarding Extremities: Right tibia with IO in place, no ecchymosis or erythema, does not move limbs Psych: Unable to assess due to cognitive status Neuro: Nonresponsive, pupils as above, does not follow commands, not sedated no gag reflex, + upward toe with babinski reflex in the left foot, not the right. No patellar or achilles reflex on the left or right. Present + brachioradialis r eflex on the Right. strength unable to be assessed, bedbound at baseline. Principal Dx & Hospital Course #1 = Principal Diagnosis (1) Respiratory arrest before cardiac arrest: (2) Acute respiratory failure with hypoxia and hypercapnia: (3) Unresponsive state: (4) Normal anion gap metabolic acidosis: (5) Pneumonia: (6) Pleural effusion: (7) JOSE (obstructive sleep apnea): (8) COPD (chronic obstructive pulmonary disease): (9) Acute on chronic heart failure with preserved ejection fraction (HFpEF): (10) Diabetes mellitus, type II: Plan 71 yo diabetic bedbound female with morbid obesity presents to the ED via EMS after cardiac arrest in the field s/p CPR and epinephrine with intubation. She is not sedated and is not responding. Per who was at bedside, she had been requiring increased amounts of oxygen over the past few days and had some intermittent confusion. This morning she woke up and had no complaints but suddenly developed loss of consciousness and respiratory distress as noted above. She remained in critical condition with a poor prognosis. Workup revealed a head CT with no evidence of hemorrhage, mass effect, or evidence of ischemia. Chest CT reveals pulmonary edema and multifocal pneumonia with multiple bilateral rib fractures. Mild leukocytosis of 15K with a left shift. There was an elevated lactate of 7.9 without an anion gap present. There was no coagulopathy and she is on Eliquis. She is acidotic with a pH 7.06 with metabolic compensation with bicarb of 35. Renal function was normal. Glucose was elevated and troponin was elevated to 27.7. UA appeared contaminated. This critically ill diabetic female presenting after cardiac arrest with suspected anoxic brain injury given prehospital events. She remained off sedation and was not responding in a meaningful way. An EEG was performed, especially in light of some noted massive myoclonic jerking and revealed marked abnormality consistent with alpha, rhythm. In addition there were periodic discharges emanating from the left frontotemporal head region consistent with severe myoclonic jerking that were potentially epileptogenic in theory. Overall the recording showed rhythms consistent with a clinical history of postcardiopulmonary arrest which was associated with a very poor prognosis clinically. Brain MRI revealed numerous foci of acute to subacute ischemia with the greatest involving the left hemisphere and cerebellum. This was consistent with a reported history of an anoxic ischemic event or could also potentially be seen with an embolic phenomena. There was no hemorrhage or mass-effect present. Broad spectrum antibiotics were started in the ER as coverage for pneumonia. Multiple severe allergies noted and she has a history of transfusion reaction requiring epinephrine in the past. Targeted temperature management was not indicated at this time. She was transferred to the ICU where she was ultimately made comfort care and later . Discharge Exam see note Updated Medication List Medication Instructions Recorded Confirmed Type levothyroxine 100 mcg tablet 100 mcg PO DAILYBB 10/24/19 01/21/22 History montelukast 10 mg tablet 10 mg PO HS 10/24/19 01/21/22 History simvastatin 20 mg tablet 20 mg PO HS 10/24/19 01/21/22 History sumatriptan succinate 100 mg tablet 100 mg PO UD PRN Migraine Headache 10/24/19 01/21/22 History albuterol sulfate 2.5 mg/3 mL 2.5 mg continuous nebulization Q6H 08/11/20 01/21/22 History (0.083 %) solution for nebulization PRN Shortness Of Breath Or Wheezing duloxetine 60 mg capsule,delayed 120 mg PO DAILY 08/11/20 01/21/22 History release empagliflozin 25 mg tablet 25 mg PO QAM 08/11/20 01/21/22 History (Jardiance) folic acid 1 mg tablet 1 mg PO DAILY 08/11/20 01/21/22 History insulin degludec 200 unit/mL (3 45 unit subcut BID 08/11/20 01/21/22 History mL) subcutaneous pen (Tresiba FlexTouch U-200 insulin) insulin regular human 100 unit/mL 30 unit subcut .LUNCH 08/11/20 01/21/22 History injection solution (Novolin R Regular U-100 Insulin) insulin regular human 100 unit/mL 40 unit subcut .EVENING MEAL 08/11/20 01/21/22 History injection solution (Novolin R Regular U-100 Insulin) insulin regular human 100 unit/mL 70 unit subcut .BREAKFAST 08/11/20 01/21/22 History injection solution (Novolin R Regular U-100 Insulin) ketoconazole 2 % topical cream 1 applic topical BID 08/11/20 01/21/22 History levocetirizine 5 mg tablet 5 mg PO HS PRN Allergy Symptoms 08/11/20 01/21/22 History metformin 500 mg tablet,extended 2,000 mg PO DAILY 08/11/20 01/21/22 History release 24 hr mirtazapine 45 mg tablet 45 mg PO HS 08/11/20 01/21/22 History metoprolol tartrate 25 mg tablet 25 mg PO BID #60 tabs 08/18/20 01/21/22 Rx cyanocobalamin (vitamin B-12) 1,000 mcg PO DAILY 09/16/20 01/21/22 History 1,000 mcg tablet pregabalin 100 mg capsule 150 mg PO TID 09/16/20 01/21/22 History aspirin 81 mg tablet,delayed 81 mg PO DAILY 09/16/21 01/21/22 History release docusate sodium 100 mg capsule 100 mg PO BID 09/16/21 01/21/22 History (Colace) pantoprazole 40 mg tablet,delayed 40 mg PO DAILY 09/16/21 01/21/22 History release glycopyrrolate 1 mg tablet 1 mg PO TID 01/21/22 01/21/22 History meloxicam 15 mg tablet 15 mg PO QAM 01/21/22 01/21/22 History ursodiol 300 mg capsule 300 mg PO BID 01/21/22 01/21/22 History Hospital Stay Data Consultations 01/21/22 09:30 ED Decision to Admit Stat 01/21/22 11:[address]order Routine Diagnostic Imagining Performed 01/21/22 08:46 CT head/brain wo con Stat 01/21/22 08:58 CT chest diagnostic wo con Stat 01/21/22 12:52 MRI Brain [MR brain wo con] Stat Total Time Total Time Spent Total Time Spent (In Minutes): 60
[2022-01-21] MEDS ORDERED: PANTOprazole 40 MG in SYRINGE 0 ML IV SCH (21:00)
--- NOTE | 2022-01-22 06:18 | Electrocardiogram Report ---
Test Reason : Blood Pressure : / mmHG Vent. Rate : 070 BPM Atrial Rate : 070 BPM P-R Int : 150 ms QRS Dur : 104 ms QT Int : 418 ms P-R-T Axes : 054 046 050 degrees QTc Int : 451 ms Poor data quality, interpretation may be adversely affected Sinus rhythm Low voltage QRS Incomplete right bundle branch block Borderline ECG When compared with ECG of 21-JAN-2022 08:40, Sinus rhythm is now Present Confirmed by Colt San ([id number]) on 01/22/2022 6:17:37 AM Referred By: REFERRED SELF Confirmed By:Colt San
--- NOTE | 2022-01-22 16:37 | Electrocardiogram Report ---
Test Reason : Blood Pressure : / mmHG Vent. Rate : 052 BPM Atrial Rate : 017 BPM P-R Int : 000 ms QRS Dur : 120 ms QT Int : 498 ms P-R-T Axes : 000 053 048 degrees QTc Int : 463 ms Probable Sinus bradycardia Low voltage QRS Right bundle branch block Abnormal ECG When compared with ECG of 16-SEP-2021 08:15, Vent. rate has decreased BY 41 BPM Confirmed by Hardik Rome ([id number]) on 01/22/2022 4:36:59 PM Referred By: REFERRED SELF Confirmed By:Hardik Rome
== END 2022-01-21 19:57 | disposition expired | DRG 296 ==
LOC: ED 08:34 → 1E 10:02